=== PATIENT | female | born 1970 | race Caucasian/White ===

== ENCOUNTER 2017-02-12 10:16 | Emergency (ER) | payer MEDICARE, OTHER ==
[2017-02-12 10:24] VITALS: RESP 18
[2017-02-12] MEDS ORDERED: IBUPROFEN 600 MG STARTER PACK 4 TAB BTL PO STA (10:59)
--- NOTE | 2017-02-12 11:03 | ED ---
General Adult HPI - General Chief complaint: Dental/Oral Stated complaint: JAW PAIN Time Seen by Provider: 02/12/17 10:36 Source: patient, family, RN notes reviewed, old records reviewed Mode of arrival: wheelchair Limitations: no limitations - History of Present Illness Initial comments: Chief complaint history of present illness a 47-year-old female here with family. The patient reports one month ago while yawning she felt pain to her right TMJ. 4 days ago she was at [facility] diagnosed with discomfort in that same area but on a muscle relaxant. Patient reports she still has discomfort. Yawning opening her mouth wide causes discomfort to the right TMJ. Mild pressure over that while yawning or opening her mouth can decrease the discomfort. Denies any toothache denies fever. - Related Data Previous Rx's Medication Instructions Recorded Hydrocodone/Acetaminophen [[place] 1 each PO Q8H PRN #10 tab 02/12/17 5-325] Ibuprofen [Motrin] 600 mg PO Q6HR PRN #20 tab 02/12/17 Allergies Allergy/AdvReac Type Severity Reaction Status Date / Time Penicillins Allergy Itching Verified 02/12/17 10:24 Review of Systems ROS Statement: Those systems with pertinent positive or pertinent negative responses have been documented in the HPI. Review of systems no headache no visual acuity changes denies any tooth area pain. Discomfort located on the right parotid area specifically toward the right TMJ. No bruising no significant swelling. Palpation of the area causes discomfort. Opening and closing her mouth increases pain as well. No complaint of chest pain shortness breath GI/ problems. All systems are reviewed. Past medical problems significant for angina, insulin-dependent diabetes mellitus, hypertension, patient is on renal dialysis, also thyroid disorder seizure disorder and bipolar disorder. The patient's surgeries include , tonsils and a fistula for dialysis on her left bicep area. Family history mother at unknown type right of cancer. The patient quit smoking 10 years ago rarely drinks alcohol. ROS Other: All systems not noted in ROS Statement are negative. Past Medical History Past Medical History: Chest Pain / Angina, Diabetes Mellitus, Hypertension, Renal Disease, Seizure Disorder, Thyroid Disorder Additional Past Medical History / Comment(s): dialysis bipolar History of Any Multi-Drug Resistant Organisms: None Reported Past Surgical History: Section, Tonsillectomy Additional Past Surgical History / Comment(s): fistula Past Psychological History: Bipolar Smoking Status: Former smoker Past Alcohol Use History: Occasional Past Drug Use History: None Reported General Exam - General Exam Comments Initial Comments: General: The patient is awake and alert, complains of pain to the right TMJ area vital signs temp 97.8 pulse 82 respiratory rate 18 pulse ox 90% room air blood pressure 131/77. Eye: Pupils are equal, round and reactive to light, extra-ocular movements are intact ; there is normal conjunctiva bilaterally. No signs of icterus. Ears, nose, mouth and throat: There are moist mucous membranes and no oral lesions. Tenderness to right TMJ with opening and closing her mouth and palpation over the area. Parotid not enlarged as compared to the left side. Tenderness in that general area though when palpated. No bruising noted. No anterior cervical lymphadenopathy. Teeth appear to be intact without evidence of any dental caries or she has had a lot of dental work done. Neck: The neck is supple, there is no tenderness , no carotid bruit. Cardiovascular: There is a regular rate and rhythm. No murmur, rub or gallop is appreciated. Respiratory: Lungs are clear to auscultation, respirations are non-labored, breath sounds are equal. No wheezes, stridor, rales, or rhonchi. Gastrointestinal: Abdomen benign no nausea no vomiting no masses. Skin: Skin is warm and dry and no rashes or lesions are noted. Psychiatric: History of bipolar disorder. No complaints of depression or suicidal thoughts. Limitations: no limitations Course Vital Signs 02/12/17 10:19 Temperature 97.8 F Pulse Rate 82 Respiratory 18 Rate Blood Pressure 131/77 O2 Sat by Pulse 98 Oximetry Medical Decision Making - Medical Decision Making Medical decision making; patient's amylase 62 lipase 273. History examination suggests right TMJ discomfort. The patient will be placed on some pain pills and advised to follow-up with her family physician. - Lab Data Lab Results 02/12/17 Range/Units 11:18 Amylase 62 (30-110) U/L Lipase 273 (23-300) U/L Disposition Clinical Impression: Sprain of right temporomandibular joint Disposition: HOME SELF-CARE Condition: Fair Instructions: Temporomandibular Disorder (ED), Arthralgia (ED) Additional Instructions: Eat easily chewed food. Use pain medication as directed. Also follow-up with family physician. Prescriptions: Hydrocodone/Acetaminophen [[place] 5-325] 1 each PO Q8H PRN #10 tab PRN Reason: Pain Ibuprofen [Motrin] 600 mg PO Q6HR PRN #20 tab PRN Reason: Pain Referrals: Geoffrey Somers MD [Primary Care Provider] - 1-2 days Time of Disposition: 12:02
[2017-02-12 11:40] LABS: Amylase 62 U/L (30-110)
[2017-02-12 12:12] VITALS: BP 152/73; PULSE 60; TEMP 98.3
== END 2017-02-12 12:12 | disposition home or self-care (01) ==
LOC: EC 10:16
DX: S03.41XA Sprain of jaw, right side, initial encounter (principal); Z87.891 Personal history of nicotine dependence; Z88.0 Allergy status to penicillin; X58.XXXA Exposure to other specified factors, initial encounter
CPT/HCPCS: 36415; 82150; 83690; 99284

== ENCOUNTER 2017-08-14 18:20 | Inpatient (IN) | payer MEDICARE, OTHER ==
--- NOTE | 2017-08-14 21:30 | ED ---
Seizure HPI - General Chief Complaint: Seizure Stated Complaint: Riley Consult Time Seen by Provider: 08/14/17 18:20 Source: patient, RN/MD, EMS, RN notes reviewed, old records reviewed Mode of arrival: EMS Limitations: no limitations - History of Present Illness Initial Comments: This is a 47-year-old female with a history of seizures who was sent here from [facility] for evaluation by neurology for recurrent seizures. Patient probably did have recurrent seizures today was seen in their emergency department they have no neurologist on staff patient was transferred here for further evaluation. Patient was transported by EMS was apparently awake but nonverbal she was demonstrating evidence of a postictal state. No trauma was reported. I did review the charting separately other hospital. MD Complaint: seizure - Related Data Home Medications Medication Instructions Recorded Confirmed Citalopram Hydrobromide [CeleXA] 10 mg PO DAILY 02/12/17 08/14/17 Clopidogrel [Plavix] 75 mg PO DAILY 02/12/17 08/14/17 Ergocalciferol (Vitamin D2) 50,000 unit PO Q7D 02/12/17 08/14/17 [Vitamin D2] Metoprolol Tartrate 25 mg PO BID 02/12/17 08/14/17 Omeprazole 20 mg PO BID 02/12/17 08/14/17 amLODIPine [Norvasc] 10 mg PO DAILY 02/12/17 08/14/17 levETIRAcetam [Keppra] 1,000 mg PO BID 02/12/17 08/14/17 Atorvastatin [Lipitor] 40 mg PO HS 08/14/17 08/14/17 Hydrocodone/Acetaminophen [[place] 1 tab PO Q4H PRN 08/14/17 08/14/17 5-325] INSULIN LISPRO (humaLOG) [humaLOG] See Protocol SQ ACHS 08/14/17 08/14/17 Insulin Glargine [Lantus] 15 unit SQ DAILY 08/14/17 08/14/17 Ranitidine HCl 150 mg PO BID 08/14/17 08/14/17 Sevelamer [Renvela] 1 dose PO DIRECTED 08/14/17 08/14/17 Allergies Allergy/AdvReac Type Severity Reaction Status Date / Time Penicillins Allergy Itching Verified 08/14/17 20:10 Review of Systems ROS Statement: Those systems with pertinent positive or pertinent negative responses have been documented in the HPI. Limitations: ROS unobtainable due to patients medical condition Past Medical History Past Medical History: Chest Pain / Angina, Diabetes Mellitus, Hypertension, Renal Disease, Seizure Disorder, Thyroid Disorder Additional Past Medical History / Comment(s): dialysis bipolar History of Any Multi-Drug Resistant Organisms: None Reported Past Surgical History: Section, Tonsillectomy Additional Past Surgical History / Comment(s): fistula Past Psychological History: Bipolar Smoking Status: Former smoker Past Alcohol Use History: Occasional Past Drug Use History: None Reported General Exam - General Exam Comments Initial Comments: This a well-developed well-nourished awake alert but lethargic female Limitations: no limitations General appearance: lethargic Head exam: Present: atraumatic, normocephalic, normal inspection Eye exam: Present: normal appearance, PERRL, EOMI. Absent: scleral icterus, conjunctival injection, periorbital swelling ENT exam: Present: normal exam, mucous membranes moist Neck exam: Present: normal inspection. Absent: tenderness, meningismus, lymphadenopathy Respiratory exam: Present: normal lung sounds bilaterally. Absent: respiratory distress, wheezes, rales, rhonchi, stridor Cardiovascular Exam: Present: regular rate, normal rhythm, normal heart sounds. Absent: systolic murmur, diastolic murmur, rubs, gallop, clicks GI/Abdominal exam: Present: soft, normal bowel sounds. Absent: distended, tenderness, guarding, rebound, rigid Extremities exam: Present: normal inspection, full ROM, normal capillary refill. Absent: tenderness, pedal edema, joint swelling, calf tenderness Back exam: Present: normal inspection Neurological exam: Present: alert, altered, CN II-XII intact Psychiatric exam: Present: flat affect Skin exam: Present: warm, dry, intact, normal color. Absent: rash Course Vital Signs 08/14/17 08/14/17 08/14/17 18:29 19:34 20:00 Temperature 98.5 F Pulse Rate 91 87 87 Respiratory 18 18 20 Rate Blood Pressure 128/67 117/69 129/74 O2 Sat by Pulse 98 97 97 Oximetry 08/14/17 21:00 Temperature Pulse Rate 97 Respiratory 20 Rate Blood Pressure 133/76 O2 Sat by Pulse 97 Oximetry Medical Decision Making - Medical Decision Making I did discuss findings with the covering service for Dr. Somers patient will be admitted with neurology consultation. Patient is more responsive and initial arrival. Disposition Clinical Impression: Generalized seizure, Postictal state Disposition: ADMITTED IP TO THIS HOSP Condition: Stable Referrals: Geoffrey Somers MD [Primary Care Provider] - 1-2 days
[2017-08-14] MEDS ORDERED: NALOXONE 0.4 MG/ML 1 ML VIAL IV PRN (21:31)
[2017-08-14] MEDS ORDERED: SEVELAMER 800 MG TAB PO SCH (21:45)
[2017-08-14] MEDS ORDERED: METOPROLOL TARTRATE 25 MG TAB PO STA (23:51)
[2017-08-15 01:47] LABS: Glucose,Whole Blood 129 mg/dL (75-99)
[2017-08-15 07:58] LABS: Glucose,Whole Blood 152 mg/dL (75-99)
[2017-08-15] MEDS: INSULIN ASPART 100 UNIT/ML 1 ML 10 ML VIAL SQ SCH ×4 (08:21→21:12)
[2017-08-15] MEDS: HYDROcodone/APAP 5-325MG 1 EACH TAB PO PRN ×3 (08:22→17:13)
[2017-08-15] MEDS: CLOPIDOGREL 75 MG TAB PO SCH (08:22)
[2017-08-15] MEDS: METOPROLOL TARTRATE 25 MG TAB PO SCH ×2 (08:23→21:11)
[2017-08-15] MEDS: PANTOPRAZOLE 40 MG TABLET PO SCH ×2 (08:23→17:14)
[2017-08-15] MEDS: amLODIPine 10 MG TAB PO SCH (08:24)
[2017-08-15] MEDS: CITALOPRAM HYDROBROMIDE 10 MG TAB PO SCH (08:24)
[2017-08-15] MEDS: levETIRAcetam 500 MG TAB PO SCH ×2 (08:24→21:09)
[2017-08-15] MEDS: INSULIN DETEMIR 100 UNIT/ML 10 ML VIAL SQ SCH (08:25)
[2017-08-15] MEDS ORDERED: FAMOTIDINE 20 MG TAB PO SCH (09:00)
--- NOTE | 2017-08-15 11:24 | P.NPCON ---
History of Present Illness - Reason for Consult end stage renal disease - History of Present Illness Reason for consultation: End-stage renal disease History of present illness: Patient is a 47-year-old female seen in consultation for end-stage renal disease. She is maintained on hemodialysis on a Monday schedule. Patient has history of seizures for which she has required multiple hospitalizations. Patient states she sustained a fall and was noted to have a left wrist fracture for which she went to [facility]. She was subsequently discharged and then had a seizure while at home. She returned back to [facility] and was subsequently transferred to [facility] to be seen by a neurologist. She is currently resting in bed. Patient states she has been compliant with her medications. She did receive hemodialysis yesterday. No further seizures. Currently resting in bed. Patient does have dementia and is not a very reliable historian. No vomiting or diarrhea. No fever or chills. Denies cough. No edema. Hemodynamically stable. Vital signs are stable. General: The patient appeared well nourished and normally developed. HEENT: Head exam is unremarkable. Neck is without jugular venous distension. LUNGS: Lungs are clear to auscultation and percussion. Breath sounds decreased. HEART: Rate and Rhythm are regular. First and second heart sounds normal. No murmurs, rubs or gallops. ABDOMEN: Abdominal exam reveals normal bowel sounds. Non-tender and non- distended. No evidence of peritonitis. EXTREMITITES: No clubbing, cyanosis, or edema. Past Medical History Past Medical History: Chest Pain / Angina, Diabetes Mellitus, Hypertension, Renal Disease, Seizure Disorder, Thyroid Disorder Additional Past Medical History / Comment(s): dialysis bipolar History of Any Multi-Drug Resistant Organisms: None Reported Past Surgical History: Section, Tonsillectomy Additional Past Surgical History / Comment(s): fistula Past Psychological History: Bipolar Smoking Status: Former smoker Past Alcohol Use History: Occasional Past Drug Use History: None Reported Medications and Allergies Home Medications Medication Instructions Recorded Confirmed Type Citalopram Hydrobromide [CeleXA] 10 mg PO DAILY 02/12/17 08/14/17 History Clopidogrel [Plavix] 75 mg PO DAILY 02/12/17 08/14/17 History Ergocalciferol (Vitamin D2) 50,000 unit PO Q7D 02/12/17 08/14/17 History [Vitamin D2] Metoprolol Tartrate 25 mg PO BID 02/12/17 08/14/17 History Omeprazole 20 mg PO BID 02/12/17 08/14/17 History amLODIPine [Norvasc] 10 mg PO DAILY 02/12/17 08/14/17 History levETIRAcetam [Keppra] 1,000 mg PO BID 02/12/17 08/14/17 History Atorvastatin [Lipitor] 40 mg PO HS 08/14/17 08/14/17 History Hydrocodone/Acetaminophen [[place] 1 tab PO Q4H PRN 08/14/17 08/14/17 History 5-325] INSULIN LISPRO (humaLOG) [humaLOG] See Protocol SQ ACHS 08/14/17 08/14/17 History Insulin Glargine [Lantus] 15 unit SQ DAILY 08/14/17 08/14/17 History Ranitidine HCl 150 mg PO BID 08/14/17 08/14/17 History Allergies Allergy/AdvReac Type Severity Reaction Status Date / Time Penicillins Allergy Itching Verified 08/14/17 20:10 Physical Exam Vitals: Vital Signs Temp Pulse Pulse Resp BP BP Pulse Ox 08/15/17 07:00 97.8 F 67 18 114/64 95 08/15/17 00:00 79 14 08/14/17 22:00 98.2 F 89 79 14 139/79 130/72 95 08/14/17 21:00 97 20 133/76 97 08/14/17 20:00 87 20 129/74 97 08/14/17 19:34 87 18 117/69 97 08/14/17 18:29 98.5 F 91 18 128/67 98 Intake and Output 08/14/17 08/15/17 08/15/17 22:59 06:59 14:59 Other: # Voids 0 Weight 68.039 kg 68.039 kg Assessment and Plan Plan: Assessment: #1. End-stage renal disease maintained on hemodialysis on a Monday schedule. #2. Seizures requiring multiple hospitalizations. Patient states she's been compliant with her medications. #3. Status post fall with left wrist fracture. Currently in a cast. #4. Chronic kidney disease mineral bone disease maintained on Renvela. #5. Insulin-dependent diabetes mellitus. Plan: Hemodialysis tomorrow with goal 2 liters ultrafiltration. Check phosphorus level. Await neurology recommendations. Thank you for the consultation. I will continue to follow the patient with you during her hospital stay.
[2017-08-15 12:13] LABS: Glucose,Whole Blood 415 mg/dL (75-99)
--- NOTE | 2017-08-15 12:19 | P.HPIM ---
History of Present Illness Patient presented to [place] [id number] first seizure disorder. Was transferred to [facility] emergency room for neurological evaluation.. Patient resting in bed at this time awaiting consultation. Has seen Dr. Mcgovern we'll continue with scheduled dialysis Review of Systems Constitutional: Reports fatigue, Reports weakness Musculoskeletal: left: hand pain Neurological: Reports seizures, Reports weakness Past Medical History Past Medical History: Chest Pain / Angina, Diabetes Mellitus, Hypertension, Renal Disease, Seizure Disorder, Thyroid Disorder Additional Past Medical History / Comment(s): dialysis bipolar History of Any Multi-Drug Resistant Organisms: None Reported Past Surgical History: Section, Tonsillectomy Additional Past Surgical History / Comment(s): fistula Past Psychological History: Bipolar Smoking Status: Former smoker Past Alcohol Use History: Occasional Past Drug Use History: None Reported Medications and Allergies Home Medications Medication Instructions Recorded Confirmed Type Citalopram Hydrobromide [CeleXA] 10 mg PO DAILY 02/12/17 08/14/17 History Clopidogrel [Plavix] 75 mg PO DAILY 02/12/17 08/14/17 History Ergocalciferol (Vitamin D2) 50,000 unit PO Q7D 02/12/17 08/14/17 History [Vitamin D2] Metoprolol Tartrate 25 mg PO BID 02/12/17 08/14/17 History Omeprazole 20 mg PO BID 02/12/17 08/14/17 History amLODIPine [Norvasc] 10 mg PO DAILY 02/12/17 08/14/17 History levETIRAcetam [Keppra] 1,000 mg PO BID 02/12/17 08/14/17 History Atorvastatin [Lipitor] 40 mg PO HS 08/14/17 08/14/17 History Hydrocodone/Acetaminophen [[place] 1 tab PO Q4H PRN 08/14/17 08/14/17 History 5-325] INSULIN LISPRO (humaLOG) [humaLOG] See Protocol SQ ACHS 08/14/17 08/14/17 History Insulin Glargine [Lantus] 15 unit SQ DAILY 08/14/17 08/14/17 History Ranitidine HCl 150 mg PO BID 08/14/17 08/14/17 History Allergies Allergy/AdvReac Type Severity Reaction Status Date / Time Penicillins Allergy Itching Verified 08/14/17 20:10 Physical Exam Vitals: Vital Signs Temp Pulse Pulse Resp BP BP Pulse Ox 08/15/17 07:00 97.8 F 67 18 114/64 95 08/15/17 00:00 79 14 08/14/17 22:00 98.2 F 89 79 14 139/79 130/72 95 08/14/17 21:00 97 20 133/76 97 08/14/17 20:00 87 20 129/74 97 08/14/17 19:34 87 18 117/69 97 08/14/17 18:29 98.5 F 91 18 128/67 98 Intake and Output 08/14/17 08/15/17 08/15/17 22:59 06:59 14:59 Other: # Voids 0 Weight 68.039 kg 68.039 kg - Constitutional General appearance: obese - EENT Eyes: PERRLA Ears: bilateral: normal - Neck Neck: normal ROM - Respiratory Respiratory: bilateral: CTA - Cardiovascular Rhythm: regular - Gastrointestinal General gastrointestinal: soft - Integumentary Excessive facial hair Integumentary: normal - Neurologic Neurologic: CNII-XII intact - Musculoskeletal Musculoskeletal: generalized weakness - Psychiatric Patient has flat affect and short-term memory problems Psychiatric: A&O x's 3 Results Labs: Abnormal Lab Results - Last 24 Hours (Table) 08/15/17 08/15/17 08/15/17 Range/Units 01:44 07:37 12:03 POC Glucose (mg/dL) 129 H 152 H 415 H (75-99) mg/dL Thrombosis Risk Factor Assmnt - Choose All That Apply Any of the Below Risk Factors Present?: Yes Each Factor Represents 1 point: Age 41-60 years, Obesity (BMI >25) Thrombosis Risk Factor Assessment Total Risk Factor Score: 2 Thrombosis Risk Factor Assessment Level: Low Risk Assessment and Plan Plan: Assessment Seizure disorder post ictal state Bipolar Diabetes type 2 End-stage renal failure with dialysis Monday Hypertension Hypothyroidism Left hand fracture Plan Consultation with Dr. Mcgovern Consultation with [facility] for hand fracture Neurology consultation for seizure disorder
[2017-08-15] MEDS ORDERED: INSULIN ASPART 100 UNIT/ML 1 ML 10 ML VIAL SQ ONE (12:20)
[2017-08-15 13:17] LABS: Basophils # (A) 0.1 k/uL (0-0.2); Basophils % (A) 1 %; Eosinophils # (A) 0.1 k/uL (0-0.7); Eosinophils % (A) 1 %; HCT 32.2 % (34.0-46.0); HGB 11.1 gm/dL (11.4-16.0); Lymphocytes # (A) 2.9 k/uL (1.0-4.8); Lymphocytes % (A) 34 %; MCH 30.1 pg (25.0-35.0); MCHC 34.5 g/dL (31.0-37.0); MCV 87.4 fL (80.0-100.0); Mean Platelet Volume 8.4; Monocytes # (A) 0.5 k/uL (0-1.0); Monocytes % (A) 6 %; Neutrophils # (A) 4.9 k/uL (1.3-7.7); Neutrophils % (A) 57 %; Platelet Count 238 k/uL (150-450); RBC 3.69 m/uL (3.80-5.40); RDW 12.7 % (11.5-15.5); WBC 8.6 k/uL (3.8-10.6)
[2017-08-15 17:27] LABS: Glucose,Whole Blood 91 mg/dL (75-99)
[2017-08-15 17:27] LABS: Glucose,Whole Blood 59 mg/dL (75-99)
[2017-08-15 20:48] LABS: Glucose,Whole Blood 138 mg/dL (75-99)
[2017-08-15] MEDS: ATORVASTATIN 40 MG TAB PO SCH (21:11)
[2017-08-15] MEDS: FAMOTIDINE 20 MG TAB PO SCH (21:12)
[2017-08-15] MEDS: LACOSAMIDE 50 MG TABLET PO SCH (21:55)
[2017-08-16 03:43] LABS: Glucose,Whole Blood 135 mg/dL (75-99)
[2017-08-16] MEDS: HYDROcodone/APAP 5-325MG 1 EACH TAB PO PRN ×2 (05:27→20:33)
--- NOTE | 2017-08-16 06:17 | CONS ---
CONSULTATION DATE OF CONSULTATION: 08/15/2017. CHIEF COMPLAINT: Seizures. HISTORY OF PRESENT ILLNESS: Mrs. Duke is a 47-year-old female, who is being evaluated by the neurology service per the request of Dr. Geoffrey Somers for uncontrolled seizures. The patient has history of seizure disorder and is on Keppra 1000 mg b.i.d. at home. She has been having frequent breakthrough seizures described as generalized tonic colonic seizures over the past week. She denies missing any doses. She was initially taken to [facility] Emergency Room but then transferred to [facility] for neurological evaluation. According to the chart, a CT scan of the brain was done at [facility], which showed no acute intracranial abnormalities. Her comprehensive metabolic profile at that institution showed mild hyponatremia at 134, hyperglycemia at 255, and elevated BUN and creatinine at 66 and 10.1, respectively. The patient does have history of end-stage renal disease and is on dialysis. Nephrology has been consulted. At the time of my evaluation, the patient is lying in her bed and appears to be in no acute distress. She has not had any further seizures since her admission. She is on seizure precautions. Her CBC here showed anemia with a hemoglobin of 11.1 and hematocrit of 32%. PAST MEDICAL HISTORY: Seizure disorder, diabetes, hypertension, end-stage renal disease, hypothyroidism, history of , tonsillectomy, history of bipolar disorder. SOCIAL HISTORY: The patient is a former smoker. She rarely drinks alcohol. She denies any drug use. FAMILY HISTORY: Noncontributory. HOME MEDICATIONS: Reviewed in the chart. ALLERGIES: PENICILLIN. REVIEW OF SYSTEM: CONSTITUTIONAL: Positive for fatigue. EYES: Negative. ENT: Negative. CARDIOVASCULAR: Negative. RESPIRATORY: Negative. NEUROLOGICAL: As mentioned above. GASTROINTESTINAL: Positive for occasional heartburn. GENITOURINARY: As mentioned above. PSYCHIATRIC: Positive for history of bipolar disorder. ENDOCRINE: Positive for diabetes. Also positive for hypothyroidism. DERMATOLOGICAL: Negative. MUSCULOSKELETAL: Positive for occasional joint pain. PHYSICAL EXAM: Vital signs show a temperature of 98.2, pulse 73, respiration 16, blood pressure 113/69. GENERAL APPEARANCE: The patient is a well-developed female, who appears to be in no acute distress. HEENT: Normocephalic, atraumatic, no facial asymmetry is seen. Facial hair is present. NECK: Supple with no masses felt. CARDIOVASCULAR: Regular rate and rhythm. ABDOMEN: Nontender nondistended. Extremities showed no edema or clubbing. NEUROLOGICAL EXAM: The patient is awake and oriented to person and place. She answered 2001 for the year. No facial asymmetry is seen on cranial nerve testing. No lateralizing weakness is noticed. No tremors or seizure-like activity is seen. Sensory exam showed diminished light touch sensation in bilateral distal lower extremities. IMPRESSION: 1. Uncontrolled seizures, generalized tonic-clonic type. 2. End-stage renal disease, on hemodialysis. 3. Anemia. 4. Diabetes. RECOMMENDATION: The patient has been having frequent breakthrough seizures as mentioned above. She denies missing any doses of Keppra. I had a lengthy discussion with her regarding her antiepileptic medication regimen. Given her end-stage renal disease, she is already on a high dose of Keppra, although there is no concern for toxicity. The patient will need to be placed on a second antiepileptic medication. I will start her on Vimpat 50 mg b.i.d. This is usually a starting dose, but given her end-stage renal disease, this will be her maintenance dose as well. No further adjustment of this medication will be needed. An EEG has been ordered. Continue seizure precautions and neuro checks. Nephrology has been consulted for her hemodialysis. I will continue to follow with you. Further recommendations to follow. Thank you, Dr. Somers for allowing me to participate in the care of your patient. If you have any questions, please feel free to contact me. JOYCE / DAYNA: [id number] /
[2017-08-16 07:13] LABS: Glucose,Whole Blood 129 mg/dL (75-99)
[2017-08-16] MEDS: INSULIN ASPART 100 UNIT/ML 1 ML 10 ML VIAL SQ SCH ×4 (08:33→20:34)
[2017-08-16] MEDS: CLOPIDOGREL 75 MG TAB PO SCH (08:36)
[2017-08-16] MEDS: amLODIPine 10 MG TAB PO SCH (08:36)
[2017-08-16] MEDS: INSULIN DETEMIR 100 UNIT/ML 10 ML VIAL SQ SCH (08:36)
[2017-08-16] MEDS: PANTOPRAZOLE 40 MG TABLET PO SCH ×2 (08:36→18:14)
[2017-08-16] MEDS: levETIRAcetam 500 MG TAB PO SCH ×2 (08:36→20:33)
[2017-08-16] MEDS: CITALOPRAM HYDROBROMIDE 10 MG TAB PO SCH (08:36)
[2017-08-16] MEDS: METOPROLOL TARTRATE 25 MG TAB PO SCH ×2 (08:37→20:34)
[2017-08-16] MEDS: LACOSAMIDE 50 MG TABLET PO SCH ×2 (08:38→20:36)
--- NOTE | 2017-08-16 09:22 | P.CNOR ---
History of Present Illness - HPI Consult date: 08/16/17 History of present illness: this is a 47-year-old female admitted for seizures. Orthopedics is consulted due to left hand injury. Patient states that 2 days ago she fell and injured the left hand. Patient states she was seen at [facility] for this injury and x-rays were done. Patient states she was treated with a splint. Patient states that her pain is well controlled and she is tolerating the splint. Patient denies any numbness, weakness, or tingling. Review of Systems See HPI. Past Medical History Past Medical History: Chest Pain / Angina, Diabetes Mellitus, Hypertension, Renal Disease, Seizure Disorder, Thyroid Disorder Additional Past Medical History / Comment(s): dialysis bipolar History of Any Multi-Drug Resistant Organisms: None Reported Past Surgical History: Section, Tonsillectomy Additional Past Surgical History / Comment(s): fistula Past Psychological History: Bipolar Smoking Status: Former smoker Past Alcohol Use History: Occasional Past Drug Use History: None Reported Medications and Allergies Home Medications Medication Instructions Recorded Confirmed Type Citalopram Hydrobromide [CeleXA] 10 mg PO DAILY 02/12/17 08/14/17 History Clopidogrel [Plavix] 75 mg PO DAILY 02/12/17 08/14/17 History Ergocalciferol (Vitamin D2) 50,000 unit PO Q7D 02/12/17 08/14/17 History [Vitamin D2] Metoprolol Tartrate 25 mg PO BID 02/12/17 08/14/17 History Omeprazole 20 mg PO BID 02/12/17 08/14/17 History amLODIPine [Norvasc] 10 mg PO DAILY 02/12/17 08/14/17 History levETIRAcetam [Keppra] 1,000 mg PO BID 02/12/17 08/14/17 History Atorvastatin [Lipitor] 40 mg PO HS 08/14/17 08/14/17 History Hydrocodone/Acetaminophen [Sycamore 1 tab PO Q4H PRN 08/14/17 08/14/17 History 5-325] INSULIN LISPRO (humaLOG) [humaLOG] See Protocol SQ ACHS 08/14/17 08/14/17 History Insulin Glargine [Lantus] 15 unit SQ DAILY 08/14/17 08/14/17 History Ranitidine HCl 150 mg PO BID 08/14/17 08/14/17 History Allergies Allergy/AdvReac Type Severity Reaction Status Date / Time Penicillins Allergy Itching Verified 08/14/17 20:10 Physical Examination On exam patient is alert and oriented 3 and in no acute distress. Left upper extremity with mild swelling and ecchymosis over the lateral aspect of the left hand. There is tenderness over the base of the fifth metacarpal. Patient has limited range of motion of the left wrist due to pain. Patient is unable to make a fist due to pain and swelling in left hand. Capillary refill is normal at less than 2 seconds. Sensation intact. Neurovascular status and circulatory status are intact. Results X-rays of the left wrist and left hand are pending. - Labs Labs: Abnormal Lab Results - Last 24 Hours (Table) 08/15/17 08/15/17 08/15/17 Range/Units 12:03 12:38 17:08 RBC 3.69 L (3.80-5.40) m/uL Hgb 11.1 L (11.4-16.0) gm/dL Hct 32.2 L (34.0-46.0) % POC Glucose (mg/dL) 415 H 59 L (75-99) mg/dL 08/15/17 08/16/17 08/16/17 Range/Units 20:45 02:44 06:53 RBC (3.80-5.40) m/uL Hgb (11.4-16.0) gm/dL Hct (34.0-46.0) % POC Glucose (mg/dL) 138 H 135 H 129 H (75-99) mg/dL H & H 08/15/17 Range/Units 12:38 Hgb 11.1 L (11.4-16.0) gm/dL Hct 32.2 L (34.0-46.0) % Result Diagrams: 08/15/17 12:38 Assessment and Plan (1) Left hand pain Current Visit: Yes Status: Acute Code(s): M79.642 - PAIN IN LEFT HAND SNOMED Code(s): 66334301 Plan: #1. Continue splint, rest, ice and elevation of the left upper extremity. #2. X-rays of the left hand and wrist are pending. Further recommendations to follow. #3. Will continue to follow the patient closely.
--- NOTE | 2017-08-16 09:56 | XR ---
Left hand and left wrist HISTORY: Pain, wrist fracture 3 views of the left and correlated to 4 views of the left wrist same date There is an overlying splint present. Bone mineralization is mildly reduced. There is negative ulnar variance present. Alignment is maintained. Oblique fracture through the fourth metacarpal with minima l displacement is noted. IMPRESSION: Fracture in splint
--- NOTE | 2017-08-16 10:27 | P.PN ---
Subjective Patient is seen in follow-up for end-stage renal disease. She is maintained on hemodialysis on a Monday schedule. He fistula. Patient presented to the hospital after sustaining a fall and is noted to have a fracture of the left metacarpal. She has a splint in place. Patient also had a seizure prior to admission and is being followed by neurology. No further seizure activity while in the hospital. She was maintained on Keppra and Vimpat was added this admission. Denies chest pain or shortness of breath. Oral intake is good. No active complaints at this time. Vital signs are stable. General: The patient appeared well nourished and normally developed. HEENT: Head exam is unremarkable. Neck is without jugular venous distension. LUNGS: Lungs are clear to auscultation and percussion. Breath sounds decreased. HEART: Rate and Rhythm are regular. First and second heart sounds normal. No murmurs, rubs or gallops. ABDOMEN: Abdominal exam reveals normal bowel sounds. Non-tender and non- distended. No evidence of peritonitis. EXTREMITITES: No clubbing, cyanosis, or edema. Objective - Vital Signs Vital signs: Vital Signs Temp 97.7 F 08/16/17 07:00 Pulse 72 08/16/17 07:00 Resp 18 08/16/17 07:00 BP 120/68 08/16/17 07:00 Pulse Ox 97 08/16/17 07:00 Intake & Output 08/15/17 08/16/17 08/16/17 18:59 06:59 18:59 Intake Total 500 Balance 500 Intake: Oral 500 Other: Voiding Method Incontinent Incontinent # Voids 0 2 # Bowel Movements 0 0 - Labs CBC & Chem 7: 08/15/17 12:38 Labs: Abnormal Lab Results - Last 24 Hours (Table) 08/15/17 08/15/17 08/15/17 Range/Units 12:03 12:38 17:08 RBC 3.69 L (3.80-5.40) m/uL Hgb 11.1 L (11.4-16.0) gm/dL Hct 32.2 L (34.0-46.0) % POC Glucose (mg/dL) 415 H 59 L (75-99) mg/dL 01/23/18 01/24/18 01/24/18 Range/Units 20:45 02:44 06:53 RBC (3.80-5.40) m/uL Hgb (11.4-16.0) gm/dL Hct (34.0-46.0) % POC Glucose (mg/dL) 138 H 135 H 129 H (75-99) mg/dL Assessment and Plan Plan: Assessment: #1. End-stage renal disease maintained on hemodialysis on a Monday schedule. #2. Seizures requiring multiple hospitalizations. Patient states she's been compliant with her medications. Neurology following. Maintained on Keppra and Vimpat added this admission. #3. Status post fall with left wrist fracture. Currently in a splint. Noted to have left fourth metacarpal fracture. #4. Chronic kidney disease mineral bone disease maintained on Renvela. #5. Insulin-dependent diabetes mellitus. Plan: Hemodialysis today with goal 2 liters ultrafiltration. Follow-up phosphorus level.
[2017-08-16 10:41] LABS: Calcium 9.5 mg/dL (8.4-10.2); Phosphorus 6.4 mg/dL (2.5-4.5); Potassium 4.4 mmol/L (3.5-5.1)
--- NOTE | 2017-08-16 11:46 | P.PN ---
Subjective Patient resting in bed no complaints at this time. The patient more alert and responsive than yesterday. Patient has had consultation with neurology regarding seizures medication will be adjusted. Patient had dialysis on this morning. Patient being consult and with the orthopedics regarding left hand fractured to metacarpal Objective - Vital Signs Vital signs: Vital Signs Temp 97.7 F 08/16/17 07:00 Pulse 72 08/16/17 07:00 Resp 18 08/16/17 07:00 BP 120/68 08/16/17 07:00 Pulse Ox 97 08/16/17 07:00 Intake & Output 08/15/17 08/16/17 08/16/17 18:59 06:59 18:59 Intake Total 500 Balance 500 Intake: Oral 500 Other: Voiding Method Incontinent Incontinent # Voids 0 2 # Bowel Movements 0 0 - Constitutional General appearance: Present: obese - EENT Eyes: Present: PERRLA Ears: bilateral: normal - Neck Neck: Present: normal ROM - Respiratory Respiratory: bilateral: CTA - Cardiovascular Rhythm: regular - Gastrointestinal General gastrointestinal: Present: soft - Integumentary Integumentary: Present: normal - Neurologic Neurologic: Present: CNII-XII intact - Musculoskeletal Musculoskeletal: Present: generalized weakness - Psychiatric Psychiatric: Present: A&O x's 3, appropriate affect, intact judgment & insight - Labs CBC & Chem 7: 08/15/17 12:38 08/16/17 09:37 Labs: Abnormal Lab Results - Last 24 Hours (Table) 08/15/17 08/15/17 08/15/17 Range/Units 12:03 12:38 17:08 RBC 3.69 L (3.80-5.40) m/uL Hgb 11.1 L (11.4-16.0) gm/dL Hct 32.2 L (34.0-46.0) % Sodium (137-145) mmol/L Chloride (98-107) mmol/L BUN (7-17) mg/dL Creatinine (0.52-1.04) mg/dL Glucose (74-99) mg/dL POC Glucose (mg/dL) 415 H 59 L (75-99) mg/dL Phosphorus (2.5-4.5) mg/dL 08/15/17 08/16/17 08/16/17 Range/Units 20:45 02:44 06:53 RBC (3.80-5.40) m/uL Hgb (11.4-16.0) gm/dL Hct (34.0-46.0) % Sodium (137-145) mmol/L Chloride (98-107) mmol/L BUN (7-17) mg/dL Creatinine (0.52-1.04) mg/dL Glucose (74-99) mg/dL POC Glucose (mg/dL) 138 H 135 H 129 H (75-99) mg/dL Phosphorus (2.5-4.5) mg/dL 08/16/17 Range/Units 09:37 RBC (3.80-5.40) m/uL Hgb (11.4-16.0) gm/dL Hct (34.0-46.0) % Sodium 134 L (137-145) mmol/L Chloride 91 L (98-107) mmol/L BUN 55 H (7-17) mg/dL Creatinine 9.01 H* (0.52-1.04) mg/dL Glucose 232 H (74-99) mg/dL POC Glucose (mg/dL) (75-99) mg/dL Phosphorus 6.4 H (2.5-4.5) mg/dL Assessment and Plan Plan: Assessment Generalized seizure disorder post ictal state Left hand fracture Diabetes type 2 End-stage renal failure on dialysis Monday and Monday Hypertension Bipolar Hypothyroidism Plan Continue consultation with neurology regarding seizures Continue consultation with dialysis Continue consultation with orthopedics regarding left hand fracture
[2017-08-16 12:23] LABS: Glucose,Whole Blood 259 mg/dL (75-99)
--- NOTE | 2017-08-16 15:20 | EEG ---
ELECTROENCEPHALOGRAM REPORT DATE OF SERVICE: 08/16/2017 REASON FOR TESTING: Seizures. CURRENT ANTIEPILEPTIC MEDICATIONS: Keppra and Vimpat. DESCRIPTION OF THE PROCEDURE: This EEG was performed using a 21 channel digital electroencephalograph, following international 10-20 system. DESCRIPTION OF THE RECORDING: From the beginning of the tracing, and with patient's eyes closed, the background rhythm was mostly consisting of 8 Hz alpha frequency in the posterior occipital leads. No obvious asymmetry is seen. Photic stimulation was performed with a minimal driving response seen. No pathological waves were elicited. Occasional dysregulation is seen. Frequent muscle and movement artifacts are noticed. Hyperventilation was not performed. The patient remains awake throughout the tracing. No obvious epileptiform discharges were seen. INTERPRETATION: This awake EEG is abnormal due to presence of dysregulation. This is consistent with a reduced seizure threshold. Clinical correlation is recommended. MMODL / IJN: [id number] /
[2017-08-16 17:16] LABS: Glucose,Whole Blood 129 mg/dL (75-99)
--- NOTE | 2017-08-16 20:13 | P.PN ---
Subjective Progress Note Date: 08/16/17 Principal diagnosis: seizure, generalized tonic Neurology is following a 47-year-old female for uncontrolled seizure. Patient has a history of seizure and is on Keppra 1000 mg, bid daily. Patient originally presented at [facility] [place] [facility] but was transferred to [facility] for neurological care and workup. Patient was placed on a second AED, Vimpat 50 mg, bid. This is going to be her daily dose if tolerated and no adverse effects are reported. Patient's EEG was found to be abnormal with occasional dysregulation, consistent with reduced seizure threshold. Patient and nursing staff report no new seizure activity and the patient is adjusting to the added medication without complication at this time. On contact, the patient was AOx3, resting in bed in no acute distress. Objective - Vital Signs Vital signs: Vital Signs Temp 97.8 F 08/16/17 15:00 Pulse 72 08/16/17 15:00 Resp 18 08/16/17 15:00 BP 131/70 08/16/17 15:00 Pulse Ox 97 08/16/17 15:00 Intake & Output 08/16/17 08/16/17 08/17/17 06:59 18:59 06:59 Intake Total 500 Balance 500 Intake: Oral 500 Other: Voiding Method Incontinent # Voids 2 0 # Bowel Movements 0 0 - Exam Constitutional: AOx3, cooperative HEENT: NC/AT, no facial asymmetry is seen. Throat: Supple, no masses Respiratory: No increased work of breathing Cardiac: Regular rate and Rhythm GI: non tender, non distended Musculoskeletal: Information Security Manager strengths are equal bilaterally 5/5, Lower extremity strengths are equal bilaterally at 5/5. Neurological: CN II-XII in tact, patient was AOx3, speech and language are normal, no unilateralizing weakness, no seizure activity note on physical exam. Sensation was normal. Integementary: no rash, no erythema Psychiatric: mood and affect appropriate - Labs CBC & Chem 7: 08/15/17 12:38 08/16/17 09:37 Labs: Abnormal Lab Results - Last 24 Hours (Table) 08/15/17 08/16/17 08/16/17 Range/Units 20:45 02:44 06:53 Sodium (137-145) mmol/L Chloride (98-107) mmol/L BUN (7-17) mg/dL Creatinine (0.52-1.04) mg/dL Glucose (74-99) mg/dL POC Glucose (mg/dL) 138 H 135 H 129 H (75-99) mg/dL Phosphorus (2.5-4.5) mg/dL 08/16/17 08/16/17 08/16/17 Range/Units 09:37 12:17 17:06 Sodium 134 L (137-145) mmol/L Chloride 91 L (98-107) mmol/L BUN 55 H (7-17) mg/dL Creatinine 9.01 H* (0.52-1.04) mg/dL Glucose 232 H (74-99) mg/dL POC Glucose (mg/dL) 259 H 129 H (75-99) mg/dL Phosphorus 6.4 H (2.5-4.5) mg/dL Assessment and Plan (1) End stage renal disease Current Visit: Yes Status: Acute Code(s): N18.6 - END STAGE RENAL DISEASE SNOMED Code(s): 35357869 (2) Diabetes Current Visit: Yes Status: Acute Code(s): E11.9 - TYPE 2 DIABETES MELLITUS WITHOUT COMPLICATIONS SNOMED Code(s): 04534492 (3) Generalized seizure Current Visit: Yes Status: Acute Code(s): R56.9 - UNSPECIFIED CONVULSIONS SNOMED Code(s): 213421200 Plan: 1. Seizures, generalized tonic clonic 2. Anemia 3. Diabetes Patient appears to be well controlled with the addition of Vimpat. The EEG findings are consistent with reduced seizure threshold which is consistent with new pharmacological regimen and adding the second agent to assist with seizure coverage. Based on the patient's imaging, testing and other pertinent medical information , it does appear that the patient's seizures are now managed with the dose of Keppra and vimpat concurrently used in this patient. Vimpat current dose will be the routine dose for this patient at discharge and for home use. Keppra will also be continued. Status: Neurology will continue to follow until 08/17/17, if the patient remains seizure free and tolerating the medication, the patient will be cleared for discharge from a neurological standpoint. Any questions, contact our office. Toni Sutton, [employer]TR[employer]ER[employer] TECHNICIAN-C Neurology For Dr. Matt Ohara I discussed the patient's pertinent medical information with Dr. Ohara. He agrees with the plan of care as implemented.
[2017-08-16] MEDS: ATORVASTATIN 40 MG TAB PO SCH (20:34)
[2017-08-16 20:47] LABS: Glucose,Whole Blood 268 mg/dL (75-99)
[2017-08-17] MEDS: HYDROcodone/APAP 5-325MG 1 EACH TAB PO PRN (00:14)
[2017-08-17 07:52] LABS: Glucose,Whole Blood 168 mg/dL (75-99)
[2017-08-17] MEDS: INSULIN ASPART 100 UNIT/ML 1 ML 10 ML VIAL SQ SCH ×2 (08:00→13:30)
[2017-08-17] MEDS: INSULIN DETEMIR 100 UNIT/ML 10 ML VIAL SQ SCH (08:00)
[2017-08-17] MEDS: CLOPIDOGREL 75 MG TAB PO SCH (08:00)
[2017-08-17] MEDS: PANTOPRAZOLE 40 MG TABLET PO SCH (08:01)
[2017-08-17] MEDS: FAMOTIDINE 20 MG TAB PO SCH (08:01)
[2017-08-17] MEDS: levETIRAcetam 500 MG TAB PO SCH (08:01)
[2017-08-17] MEDS: amLODIPine 10 MG TAB PO SCH (08:01)
[2017-08-17] MEDS: CITALOPRAM HYDROBROMIDE 10 MG TAB PO SCH (08:01)
[2017-08-17] MEDS: METOPROLOL TARTRATE 25 MG TAB PO SCH (08:01)
[2017-08-17] MEDS: LACOSAMIDE 50 MG TABLET PO SCH (08:03)
--- NOTE | 2017-08-17 08:52 | P.PN ---
Subjective Progress Note Date: 08/17/17 This is a 47-year-old female who was admitted for seizures. Orthopedics is following the patient for fracture of the left hand. Patient states her splint feels comfortable. Patient states her pain has improved since yesterday. Patient denies any new complaints today. Objective - Vital Signs Vital signs: Vital Signs Temp 97.2 F L 08/17/17 07:00 Pulse 76 08/17/17 07:00 Resp 20 08/17/17 07:00 BP 140/72 08/17/17 07:00 Pulse Ox 97 08/17/17 07:00 Intake & Output 08/16/17 08/17/17 08/17/17 18:59 06:59 18:59 Intake Total 500 Balance 500 Intake: Oral 500 Other: Voiding Method Incontinent Bedpan # Voids 0 1 # Bowel Movements 0 - Exam Vital signs are stable. Patient is in no acute distress and is alert and oriented 3. Splint is clean, dry, and intact. Sensation intact. Neurovascular status and circulatory status are intact. - Labs CBC & Chem 7: 08/15/17 12:38 08/16/17 09:37 Labs: Abnormal Lab Results - Last 24 Hours (Table) 08/16/17 08/16/17 08/16/17 Range/Units 09:37 12:17 17:06 Sodium 134 L (137-145) mmol/L Chloride 91 L (98-107) mmol/L BUN 55 H (7-17) mg/dL Creatinine 9.01 H* (0.52-1.04) mg/dL Glucose 232 H (74-99) mg/dL POC Glucose (mg/dL) 259 H 129 H (75-99) mg/dL Phosphorus 6.4 H (2.5-4.5) mg/dL 08/16/17 08/17/17 Range/Units 20:26 07:49 Sodium (137-145) mmol/L Chloride (98-107) mmol/L BUN (7-17) mg/dL Creatinine (0.52-1.04) mg/dL Glucose (74-99) mg/dL POC Glucose (mg/dL) 268 H 168 H (75-99) mg/dL Phosphorus (2.5-4.5) mg/dL Assessment and Plan (1) Left hand pain Current Visit: Yes Status: Acute Code(s): M79.642 - PAIN IN LEFT HAND SNOMED Code(s): 64016976 (2) Fracture of fourth metacarpal bone of left hand Current Visit: Yes Status: Acute Code(s): S62.305A - UNSP FRACTURE OF FOURTH METACARPAL BONE, LEFT HAND, INIT SNOMED Code(s): 288864663 Plan: #1. Continue splint at all times. X-rays of the left hand show nondisplaced fracture of the fourth metacarpal. X-rays of left wrist are negative for any fracture dislocation. #2. Rest, ice and elevate the left upper extremity. #3. Will continue to follow the patient closely. Patient may follow up as an outpatient in 1 week.
--- NOTE | 2017-08-17 10:23 | P.PN ---
Subjective Patient is seen in follow-up for end-stage renal disease. She is maintained on hemodialysis on a Monday schedule via AV fistula. Patient presented to the hospital after sustaining a fall and is noted to have a fracture of the left metacarpal. She has a splint in place. Patient also had a seizure prior to admission and is being followed by neurology. No further seizure activity while in the hospital. She was maintained on Keppra and Vimpat was added this admission. Denies chest pain or shortness of breath. Oral intake is good. No active complaints at this time. Tolerated hemodialysis well yesterday. Vital signs are stable. General: The patient appeared well nourished and normally developed. HEENT: Head exam is unremarkable. Neck is without jugular venous distension. LUNGS: Lungs are clear to auscultation and percussion. Breath sounds decreased. HEART: Rate and Rhythm are regular. First and second heart sounds normal. No murmurs, rubs or gallops. ABDOMEN: Abdominal exam reveals normal bowel sounds. Non-tender and non- distended. No evidence of peritonitis. EXTREMITITES: No clubbing, cyanosis, or edema. Objective - Vital Signs Vital signs: Vital Signs Temp 97.2 F L 08/17/17 07:00 Pulse 76 08/17/17 07:00 Resp 20 08/17/17 07:00 BP 140/72 08/17/17 07:00 Pulse Ox 97 08/17/17 07:00 Intake & Output 08/16/17 08/17/17 08/17/17 18:59 06:59 18:59 Intake Total 500 240 Balance 500 240 Intake: Oral 500 240 Other: Voiding Method Incontinent Bedpan # Voids 0 1 # Bowel Movements 0 - Labs CBC & Chem 7: 08/15/17 12:38 08/16/17 09:37 Labs: Abnormal Lab Results - Last 24 Hours (Table) 08/16/17 08/16/17 08/16/17 Range/Units 09:37 12:17 17:06 Sodium 134 L (137-145) mmol/L Chloride 91 L (98-107) mmol/L BUN 55 H (7-17) mg/dL Creatinine 9.01 H* (0.52-1.04) mg/dL Glucose 232 H (74-99) mg/dL POC Glucose (mg/dL) 259 H 129 H (75-99) mg/dL Phosphorus 6.4 H (2.5-4.5) mg/dL 08/16/17 08/17/17 Range/Units 20:26 07:49 Sodium (137-145) mmol/L Chloride (98-107) mmol/L BUN (7-17) mg/dL Creatinine (0.52-1.04) mg/dL Glucose (74-99) mg/dL POC Glucose (mg/dL) 268 H 168 H (75-99) mg/dL Phosphorus (2.5-4.5) mg/dL Assessment and Plan Plan: Assessment: #1. End-stage renal disease maintained on hemodialysis on a Monday schedule. #2. Seizures requiring multiple hospitalizations. Patient states she's been compliant with her medications. Neurology following. Maintained on Keppra and Vimpat added this admission. #3. Status post fall with left wrist fracture. Currently in a splint. Noted to have left fourth metacarpal fracture. #4. Chronic kidney disease mineral bone disease maintained on Renvela. #5. Insulin-dependent diabetes mellitus. Plan: Hemodialysis tomorrow with goal 2 liters ultrafiltration. Stable for discharge from nephrology standpoint.
[2017-08-17 11:59] LABS: Glucose,Whole Blood 256 mg/dL (75-99)
--- NOTE | 2017-08-17 12:19 | P.PN ---
Subjective Principal diagnosis: Patient resting in bed without complaint patient had consultation with nephrology and neurology no further seizures. Orthopedics plan to cast the left arm for metacarpal fracture Objective - Vital Signs Vital signs: Vital Signs Temp 97.2 F L 08/17/17 07:00 Pulse 76 08/17/17 07:00 Resp 20 08/17/17 07:00 BP 140/72 08/17/17 07:00 Pulse Ox 97 08/17/17 07:00 Intake & Output 08/16/17 08/17/17 08/17/17 18:59 06:59 18:59 Intake Total 500 240 Balance 500 240 Intake: Oral 500 240 Other: Voiding Method Incontinent Bedpan # Voids 0 1 # Bowel Movements 0 - Constitutional General appearance: Present: obese - EENT Eyes: Present: PERRLA Ears: bilateral: normal - Neck Neck: Present: normal ROM - Respiratory Respiratory: bilateral: CTA - Cardiovascular Rhythm: regular - Integumentary Integumentary: Present: normal - Neurologic Neurologic: Present: CNII-XII intact - Musculoskeletal Musculoskeletal: Present: generalized weakness - Psychiatric Psychiatric: Present: A&O x's 3, appropriate affect, intact judgment & insight - Labs CBC & Chem 7: 08/15/17 12:38 08/16/17 09:37 Labs: Abnormal Lab Results - Last 24 Hours (Table) 08/16/17 08/16/17 08/16/17 Range/Units 12:17 17:06 20:26 POC Glucose (mg/dL) 259 H 129 H 268 H (75-99) mg/dL 08/17/17 08/17/17 Range/Units 07:49 11:53 POC Glucose (mg/dL) 168 H 256 H (75-99) mg/dL Assessment and Plan Plan: Assessment generalized seizure postictal state Renal failure end-stage with dialysis Monday Bipolar Diabetes type 2 Hypothyroidism Fracture of left hand Plan We'll follow-up with a nephrology for dialysis We'll follow up with neurology regarding seizures We'll follow-up with orthopedics regarding hand fracture 1 cleared by neurology patient will be discharged home
[2017-08-17] MEDS ORDERED: SEVELAMER 800 MG TAB PO SCH (12:30)
[2017-08-17 15:58] VITALS: BP 119/67; PULSE 77; RESP 16; TEMP 98.3
--- NOTE | 2017-08-17 16:00 | P.DS ---
Providers Date of admission: 08/14/17 21:30 Expected date of discharge: 08/17/17 Attending physician: Geoffrey Somers Consults: 08/14/17 21:32 Consult Physician Routine Consulting Provider: Matt Ohara Consult Reason/Comments: Multiple seizures, postictal state Do you want consulting provider notified?: Yes 08/15/17 12:10 Consult Physician Urgent Consulting Provider: Martínez Mcgovern Consult Reason/Comments: renal failure Do you want consulting provider notified?: Already Contacted 08/15/17 12:14 Consult Physician Urgent Consulting Provider: Mynor Giron Consult Reason/Comments: left hand fx xray at [facility] Do you want consulting provider notified?: Yes Primary care physician: Geoffrey Somers [place] Course: 47-year-old female presented to the emergency room from [facility] for evaluation after recurrent seizures. Patient was evaluated by neurology and started on Vimpat the milligrams b.i.d. patient has stabilized. Patient was evaluated by nephrology and had one course of dialysis Assessment generally seizure postictal state renal failure and stage with dialysis bipolar diabetes type II hypertension hypothyroidism left hand fracture Plan follow up with neurology nephrology and orthopedics and family physician Patient Condition at Discharge: Stable Plan - Discharge Summary New Discharge Prescriptions: New Lacosamide [Vimpat] 50 mg PO BID 30 Days #60 tablet Sevelamer [Renvela] 800 mg PO TID-W/MEALS tab Continue amLODIPine [Norvasc] 10 mg PO DAILY Metoprolol Tartrate 25 mg PO BID Omeprazole 20 mg PO BID Ergocalciferol (Vitamin D2) [Vitamin D2] 50,000 unit PO Q7D Clopidogrel [Plavix] 75 mg PO DAILY Citalopram Hydrobromide [CeleXA] 10 mg PO DAILY levETIRAcetam [Keppra] 1,000 mg PO BID Insulin Glargine [Lantus] 15 unit SQ DAILY INSULIN LISPRO (humaLOG) [humaLOG] See Protocol SQ ACHS Hydrocodone/Acetaminophen [[place] 5-325] 1 tab PO Q4H PRN PRN Reason: Pain Atorvastatin [Lipitor] 40 mg PO HS Discontinued Ranitidine HCl 150 mg PO BID Discharge Medication List Citalopram Hydrobromide [CeleXA] 10 mg PO DAILY 02/12/17 [History] Clopidogrel [Plavix] 75 mg PO DAILY 02/12/17 [History] Ergocalciferol (Vitamin D2) [Vitamin D2] 50,000 unit PO Q7D 02/12/17 [History] Metoprolol Tartrate 25 mg PO BID 02/12/17 [History] Omeprazole 20 mg PO BID 02/12/17 [History] amLODIPine [Norvasc] 10 mg PO DAILY 02/12/17 [History] levETIRAcetam [Keppra] 1,000 mg PO BID 02/12/17 [History] Atorvastatin [Lipitor] 40 mg PO HS 08/14/17 [History] Hydrocodone/Acetaminophen [[place] 5-325] 1 tab PO Q4H PRN 08/14/17 [History] INSULIN LISPRO (humaLOG) [humaLOG] See Protocol SQ ACHS 08/14/17 [History] Insulin Glargine [Lantus] 15 unit SQ DAILY 08/14/17 [History] Lacosamide [Vimpat] 50 mg PO BID 30 Days #60 tablet 08/17/17 [Rx] Sevelamer [Renvela] 800 mg PO TID-W/MEALS tab 08/17/17 [Rx] Follow up Appointment(s)/Referral(s): Geoffrey Somers MD [Primary Care Provider] - 1-2 days Matt Ohara MD [STAFF PHYSICIAN] - 1 Week Marcin Fulton DO [Doctor of Osteopathic Medicine] - 1 Week Patient Instructions/Handouts: Recurrent Seizures in Adults (DC) Activity/Diet/Wound Care/Special Instructions: Maintain splint to left upper extremity at all times. Rest, ice and elevate the left upper extremity. Follow up with [facility] in one week. Any questions please call .
--- NOTE | 2017-08-17 18:09 | P.PN ---
Subjective Principal diagnosis: seizure, generalized tonic Neurology is following a 47-year-old female for uncontrolled seizure. Patient has a history of seizure and is on Keppra 1000 mg, bid daily. Patient originally presented at [facility] but was transferred to [facility] for neurological care and workup. Patient was placed on a second AED, Vimpat 50 mg, bid. This is going to be her daily dose if tolerated and no adverse effects are reported. Patient's EEG was found to be abnormal with occasional dysregulation, consistent with reduced seizure threshold. Patient and nursing staff report no new seizure activity and the patient is adjusting to the added medication without complication at this time. On contact, the patient was AOx3, resting in bed in no acute distress. Objective - Vital Signs Vital signs: Vital Signs Temp 98.3 F 08/17/17 15:00 Pulse 77 08/17/17 15:00 Resp 16 08/17/17 15:00 BP 119/67 08/17/17 15:00 Pulse Ox 98 08/17/17 15:00 Intake & Output 08/16/17 08/17/17 08/17/17 18:59 06:59 18:59 Intake Total 500 440 Balance 500 440 Intake: Oral 500 440 Other: Voiding Method Incontinent Bedpan # Voids 0 1 2 # Bowel Movements 0 - Exam Constitutional: AOx3, cooperative HEENT: NC/AT, no facial asymmetry is seen. Throat: Supple, no masses Respiratory: No increased work of breathing Cardiac: Regular rate and Rhythm GI: non tender, non distended Musculoskeletal: Embalmer Assistant strengths are equal bilaterally 5/5, Lower extremity strengths are equal bilaterally at 5/5. Neurological: CN II-XII in tact, patient was AOx3, speech and language are normal, no unilateralizing weakness, no seizure activity note on physical exam. Sensation was normal. Integementary: no rash, no erythema Psychiatric: mood and affect appropriate - Labs CBC & Chem 7: 08/15/17 12:38 08/16/17 09:37 Labs: Abnormal Lab Results - Last 24 Hours (Table) 08/16/17 08/17/17 08/17/17 Range/Units 20:26 07:49 11:53 POC Glucose (mg/dL) 268 H 168 H 256 H (75-99) mg/dL Assessment and Plan (1) End stage renal disease Status: Acute Code(s): N18.6 - END STAGE RENAL DISEASE SNOMED Code(s): 59946968 (2) Diabetes Status: Acute Code(s): E11.9 - TYPE 2 DIABETES MELLITUS WITHOUT COMPLICATIONS SNOMED Code(s): 92336615 (3) Generalized seizure Status: Acute Code(s): R56.9 - UNSPECIFIED CONVULSIONS SNOMED Code(s): 250166754 Plan: 1. Seizures, generalized tonic clonic 2. Anemia 3. Diabetes Patient appears to be well controlled with the addition of Vimpat. The EEG findings are consistent with reduced seizure threshold which is consistent with new pharmacological regimen and adding the second agent to assist with seizure coverage. Based on the patient's imaging, testing and other pertinent medical information , it does appear that the patient's seizures are now managed with the dose of Keppra and vimpat concurrently used in this patient. Vimpat current dose will be the routine dose for this patient at discharge and for home use. Keppra will also be continued. Status: Neurology will clear the patient for discharge from a neurological standpoint. Any questions, contact our office. Toni Sutton, [employer]-C Neurology For Dr. Matt Ohara I discussed the patient's pertinent medical information with Dr. Ohara. He agrees with the plan of care as implemented.
[2017-08-20] MEDS ORDERED: ERGOCALCIFEROL 50,000 UNIT CAP PO SCH (09:00)
== END 2017-08-17 17:04 | disposition home or self-care (01) | DRG 100 ==
LOC: EC 18:20 → 4MS4W 21:30
PROVIDERS: ADMIT Family Medicine; ATTEND Family Medicine
PROC: 5A1D70Z Performance of Urinary Filtration, Intermittent, Less than 6 Hours Per Day (ICD-10-PCS; principal; 2017-08-16)
DX: G40.409 Other generalized epilepsy and epileptic syndromes, not intractable, without status epilepticus (principal); N18.6 End stage renal disease; E11.22 Type 2 diabetes mellitus with diabetic chronic kidney disease; I12.0 Hypertensive chronic kidney disease with stage 5 chronic kidney disease or end stage renal disease; E87.1 Hypo-osmolality and hyponatremia; E11.65 Type 2 diabetes mellitus with hyperglycemia; S62.305A Unspecified fracture of fourth metacarpal bone, left hand, initial encounter for closed fracture; D64.9 Anemia, unspecified; F03.90 Unspecified dementia, unspecified severity, without behavioral disturbance, psychotic disturbance, mood disturbance, and anxiety; E03.9 Hypothyroidism, unspecified; M89.9 Disorder of bone, unspecified; F31.9 Bipolar disorder, unspecified; Z79.02 Long term (current) use of antithrombotics/antiplatelets; Z79.4 Long term (current) use of insulin; Z79.899 Other long term (current) drug therapy; Z87.891 Personal history of nicotine dependence; Z99.2 Dependence on renal dialysis; W19.XXXA Unspecified fall, initial encounter
CPT/HCPCS: 80048; 84100; 85025; 90935; 95819; 99285

== ENCOUNTER → 2018-07-10 | Outpatient (CLI) | payer MEDICARE, OTHER | END | disposition home or self-care (01) | LOC: LABWHC1 16:10 | PROVIDERS: ATTEND Psychiatry & Neurology Neurology | DX: G40.909 Epilepsy, unspecified, not intractable, without status epilepticus (principal) | CPT/HCPCS: 36415; 80177 ==

== ENCOUNTER 2018-11-16 18:13 | Observation (INO) | payer MEDICARE, OTHER ==
[2018-11-16] MEDS ORDERED: lamoTRIgine 100 MG TAB PO STA (18:36)
[2018-11-16] MEDS ORDERED: levETIRAcetam 500 MG TAB PO STA (18:36)
[2018-11-16 19:22] LABS: Albumin 4.8 g/dL (3.5-5.0); Calcium 9.1 mg/dL (8.4-10.2); Potassium 3.4 mmol/L (3.5-5.1); Total Bilirubin 0.7 mg/dL (0.2-1.3); Total Protein 8.1 g/dL (6.3-8.2)
[2018-11-16] MEDS ORDERED: levETIRAcetam IV 500 MG in SODIUM CHLORIDE 0.9% 100 ML IVPB STA ×2 (19:29→23:01)
[2018-11-16] MEDS ORDERED: NALOXONE 0.4 MG/ML 1 ML VIAL IV PRN (20:41)
--- NOTE | 2018-11-16 20:41 | ED ---
Seizure HPI - General Chief Complaint: Seizure Stated Complaint: Seizure Time Seen by Provider: 11/16/18 18:27 Source: family Mode of arrival: ambulatory Limitations: no limitations - History of Present Illness Initial Comments: Patient presented after having multiple seizures today. Information is provided by her son. The patient has postictal state. She does not answer questions or provide further details. - Related Data Home Medications Medication Instructions Recorded Confirmed Citalopram Hydrobromide [CeleXA] 10 mg PO DAILY 02/12/17 11/16/18 Clopidogrel [Plavix] 75 mg PO DAILY 02/12/17 11/16/18 Ergocalciferol (Vitamin D2) 50,000 unit PO Q7D 02/12/17 11/16/18 [Vitamin D2] Metoprolol Tartrate 25 mg PO BID 02/12/17 11/16/18 Omeprazole 20 mg PO BID 02/12/17 11/16/18 amLODIPine [Norvasc] 10 mg PO DAILY 02/12/17 11/16/18 Atorvastatin [Lipitor] 40 mg PO HS 08/14/17 11/16/18 INSULIN LISPRO (humaLOG) [humaLOG] See Protocol SQ ACHS 08/14/17 11/16/18 Insulin Glargine [Lantus] 15 unit SQ DAILY 08/14/17 11/16/18 Albuterol Sulfate [Proair Hfa] 2 puff INHALATION RT-Q4H PRN 11/16/18 11/16/18 Lacosamide [Vimpat] 100 mg PO DIRECTED 11/16/18 11/16/18 Lacosamide [Vimpat] 100 mg PO BID 11/16/18 11/16/18 Ranitidine HCl 150 mg PO BID 11/16/18 11/16/18 levETIRAcetam [Keppra] 500 mg PO DIRECTED 11/16/18 11/16/18 levETIRAcetam [Keppra] 500 mg PO Q12HR 11/16/18 11/16/18 Previous Rx's Medication Instructions Recorded Sevelamer [Renvela] 800 mg PO TID-W/MEALS tab 08/17/17 Allergies Allergy/AdvReac Type Severity Reaction Status Date / Time Penicillins Allergy Itching Verified 11/16/18 19:05 Review of Systems ROS Statement: Those systems with pertinent positive or pertinent negative responses have been documented in the HPI. ROS Other: All systems not noted in ROS Statement are negative. Past Medical History Past Medical History: Chest Pain / Angina, Diabetes Mellitus, Hypertension, Renal Disease, Seizure Disorder, Thyroid Disorder Additional Past Medical History / Comment(s): dialysis bipolar History of Any Multi-Drug Resistant Organisms: None Reported Past Surgical History: Section, Tonsillectomy Additional Past Surgical History / Comment(s): fistula Past Psychological History: Bipolar Smoking Status: Former smoker Past Alcohol Use History: Occasional Past Drug Use History: None Reported General Exam Limitations: altered mental status General appearance: lethargic, obtunded Head exam: Present: atraumatic Eye exam: Present: normal appearance, EOMI ENT exam: Present: normal exam Neck exam: Present: normal inspection Respiratory exam: Present: normal lung sounds bilaterally Cardiovascular Exam: Present: regular rate, normal rhythm GI/Abdominal exam: Present: soft. Absent: tenderness Extremities exam: Present: normal inspection. Absent: tenderness Back exam: Present: normal inspection Neurological exam: Present: other (Altered mental status, prolonged postictal state) Psychiatric exam: Present: normal affect Skin exam: Present: warm, dry Course Vital Signs 11/16/18 11/16/18 18:20 19:12 Temperature 97.9 F Pulse Rate 80 92 Respiratory 20 16 Rate Blood Pressure 175/87 207/113 O2 Sat by Pulse 99 96 Oximetry Medical Decision Making - Medical Decision Making Patient presents after a seizure. I ordered her seizure medication. She had recurrent seizures in the [facility] department. She has prolonged postictal. She will be admitted to the hospital. - Lab Data Result diagrams: 11/16/18 18:56 Lab Results 11/16/18 Range/Units 18:56 Sodium 140 (137-145) mmol/L Potassium 3.4 L (3.5-5.1) mmol/L Chloride 96 L (98-107) mmol/L Carbon Dioxide 25 (22-30) mmol/L Anion Gap 19 mmol/L BUN 13 (7-17) mg/dL Creatinine 3.13 H (0.52-1.04) mg/dL Est GFR (CKD-EPI)AfAm 19 (>60 ml/min/1.73 sqM) Est GFR (CKD-EPI)NonAf 17 (>60 ml/min/1.73 sqM) Glucose 173 H (74-99) mg/dL Calcium 9.1 (8.4-10.2) mg/dL Total Bilirubin 0.7 (0.2-1.3) mg/dL AST 22 (14-36) U/L ALT 22 (9-52) U/L Alkaline Phosphatase 115 (38-126) U/L Total Protein 8.1 (6.3-8.2) g/dL Albumin 4.8 (3.5-5.0) g/dL Disposition Clinical Impression: Epileptic seizure Disposition: ADMITTED IP TO THIS HOSP Condition: Fair Instructions (If sedation given, give patient instructions): Recurrent Seizures in Adults (ED) Is patient prescribed a controlled substance at d/c from ED?: No Referrals: Geoffrey Somers MD [Primary Care Provider] - 1-2 days
[2018-11-16] MEDS ORDERED: ALBUTEROL NEBULIZED 2.5 MG/3 ML INHALATION PRN (20:42)
[2018-11-16] MEDS ORDERED: ATORVASTATIN 40 MG TAB PO SCH (21:00)
[2018-11-16] MEDS ORDERED: LACOSAMIDE 50 MG TABLET PO SCH (21:00)
[2018-11-16 22:47] VITALS: BMI 32.9
[2018-11-16] MEDS: FAMOTIDINE 20 MG TAB PO SCH (23:22)
[2018-11-16] MEDS: levETIRAcetam 500 MG TAB PO SCH (23:22)
[2018-11-16] MEDS: METOPROLOL TARTRATE 25 MG TAB PO SCH (23:22)
[2018-11-16] MEDS: PANTOPRAZOLE 40 MG TABLET PO SCH (23:23)
[2018-11-16] MEDS ORDERED: LACOSAMIDE IV 100 MG in SODIUM CHLORIDE 0.9% 50 ML IVPB SCH (23:30)
[2018-11-16] MEDS: LACOSAMIDE IV 100 MG in SODIUM CHLORIDE 0.9% 50 ML IVPB SCH (23:51)
[2018-11-17 07:14] LABS: Glucose,Whole Blood 116 mg/dL (75-99)
[2018-11-17 08:06] VITALS: RESP 16; TEMP 97.7
[2018-11-17] MEDS: FAMOTIDINE 20 MG TAB PO SCH (08:56)
[2018-11-17] MEDS: levETIRAcetam 500 MG TAB PO SCH (08:57)
[2018-11-17] MEDS: SEVELAMER 800 MG TAB PO SCH ×2 (08:57→13:38)
[2018-11-17] MEDS: METOPROLOL TARTRATE 25 MG TAB PO SCH (09:00)
[2018-11-17] MEDS ORDERED: CLOPIDOGREL 75 MG TAB PO SCH (09:00)
[2018-11-17] MEDS: PANTOPRAZOLE 40 MG TABLET PO SCH (09:00)
[2018-11-17] MEDS ORDERED: CITALOPRAM HYDROBROMIDE 10 MG TAB PO SCH (09:00)
[2018-11-17] MEDS ORDERED: INSULIN DETEMIR (LEVEMIR) 100 UNIT/ML SYR SQ SCH (09:00)
[2018-11-17] MEDS ORDERED: amLODIPine 10 MG TAB PO SCH (09:00)
[2018-11-17] MEDS: LACOSAMIDE IV 100 MG in SODIUM CHLORIDE 0.9% 50 ML IVPB SCH (09:43)
[2018-11-17 09:57] LABS: Glucose,Whole Blood 286 mg/dL (75-99)
[2018-11-17 11:45] LABS: Glucose,Whole Blood 345 mg/dL (75-99)
--- NOTE | 2018-11-17 14:38 | P.HPIM ---
History of Present Illness 48-year-old female came in for multiple seizures witnessed by son. Patient does have history of seizures was seen recently at [facility] for similar complaints and it took a while for her seizures to be under control. Patient is presently on Vimpat and Keppra. Patient had a vagal similar to that was placed recently for seizures. In spite of which patient had multiple seizures with postictal confusion. Patient had a witnesses seizure here in the hospital details of which are not clearly available at this time he appears to have postictal confusion after that patient when I evaluated is alert oriented 3 not confused this seizure apparently happened at the 9:30 today. Patient is end- stage renal disease on hemodialysis denied any fever chills nausea vomiting dysuria no evidence of sepsis at this time. Patient was admitted last night but unfortunately we do not have neurology service and had seizure management will require more expert neurological management because of which patient will be transferred to [facility]. Discussed the with Q on transfer team who discussed her case with Dr. Nash who is agreeable for transfer and patient will be admitted there under my service Review of Systems REVIEW OF SYSTEMS: CONSTITUTIONAL: No fever, no malaise, no fatigue. HEENT: No recent visual problems or hearing problems. Denied any sore throat. CARDIOVASCULAR: No chest pain, orthopnea, PND, no palpitations, no syncope. PULMONARY: No shortness of breath, no cough, no hemoptysis. GASTROINTESTINAL: No diarrhea, no nausea, no vomiting, no abdominal pain. NEUROLOGICAL: No headaches, no weakness, no numbness. HEMATOLOGICAL: Denies any bleeding or petechiae. GENITOURINARY: Denies any burning micturition, frequency, or urgency. MUSCULOSKELETAL/RHEUMATOLOGICAL: Denies any joint pain, swelling, or any muscle pain. ENDOCRINE: Denies any polyuria or polydipsia. The rest of the 14-point review of systems is negative. Past Medical History Past Medical History: Chest Pain / Angina, Diabetes Mellitus, Hypertension, Renal Disease, Seizure Disorder, Thyroid Disorder Additional Past Medical History / Comment(s): dialysis bipolar History of Any Multi-Drug Resistant Organisms: None Reported Past Surgical History: Section, Tonsillectomy Additional Past Surgical History / Comment(s): fistula Past Psychological History: Bipolar Smoking Status: Former smoker Past Alcohol Use History: Occasional Past Drug Use History: None Reported Medications and Allergies Home Medications Medication Instructions Recorded Confirmed Type Citalopram Hydrobromide [CeleXA] 10 mg PO DAILY 02/12/17 11/16/18 History Clopidogrel [Plavix] 75 mg PO DAILY 02/12/17 11/16/18 History Ergocalciferol (Vitamin D2) 50,000 unit PO Q7D 02/12/17 11/16/18 History [Vitamin D2] Metoprolol Tartrate 25 mg PO BID 02/12/17 11/16/18 History Omeprazole 20 mg PO BID 02/12/17 11/16/18 History amLODIPine [Norvasc] 10 mg PO DAILY 02/12/17 11/16/18 History Atorvastatin [Lipitor] 40 mg PO HS 08/14/17 11/16/18 History INSULIN LISPRO (humaLOG) [humaLOG] See Protocol SQ ACHS 08/14/17 11/16/18 History Insulin Glargine [Lantus] 15 unit SQ DAILY 08/14/17 11/16/18 History Sevelamer [Renvela] 800 mg PO TID-W/MEALS tab 08/17/17 11/16/18 Rx Albuterol Sulfate [Proair Hfa] 2 puff INHALATION RT-Q4H PRN 11/16/18 11/16/18 History Lacosamide [Vimpat] 100 mg PO DIRECTED 11/16/18 11/16/18 History Lacosamide [Vimpat] 100 mg PO BID 11/16/18 11/16/18 History Ranitidine HCl 150 mg PO BID 11/16/18 11/16/18 History levETIRAcetam [Keppra] 500 mg PO DIRECTED 11/16/18 11/16/18 History levETIRAcetam [Keppra] 500 mg PO Q12HR 11/16/18 11/16/18 History Allergies Allergy/AdvReac Type Severity Reaction Status Date / Time Penicillins Allergy Itching Verified 11/16/18 19:05 Physical Exam Vitals: Vital Signs Temp Pulse Pulse Resp BP BP Pulse Ox 11/17/18 07:00 97.7 F 87 16 167/106 98 11/16/18 22:53 98.1 F 85 20 161/81 97 11/16/18 21:44 98.2 F 87 16 176/99 99 11/16/18 19:12 92 16 207/113 96 11/16/18 18:20 97.9 F 80 20 175/87 99 Intake and Output 11/16/18 11/17/18 11/17/18 22:59 06:59 14:59 Other: # Voids 1 3 # Bowel Movements 0 Weight 81.647 kg PHYSICAL EXAMINATION: GENERAL: The patient is alert and oriented x3, not in any acute distress. Well developed, well nourished. HEENT: Pupils are round and equally reacting to light. EOMI. No scleral icterus. No conjunctival pallor. Normocephalic, atraumatic. No pharyngeal erythema. No thyromegaly. CARDIOVASCULAR: S1 and S2 present. No murmurs, rubs, or gallops. PULMONARY: Chest is clear to auscultation, no wheezing or crackles. ABDOMEN: Soft, nontender, nondistended, normoactive bowel sounds. No palpable organomegaly. MUSCULOSKELETAL: No joint swelling or deformity. EXTREMITIES: No cyanosis, clubbing, or pedal edema. NEUROLOGICAL: Gross neurological examination did not reveal any focal deficits. SKIN: No rashes. Results CBC & Chem 7: 11/16/18 18:56 Labs: Abnormal Lab Results - Last 24 Hours (Table) 11/16/18 11/17/18 11/17/18 Range/Units 18:56 07:02 09:45 Potassium 3.4 L (3.5-5.1) mmol/L Chloride 96 L (98-107) mmol/L Creatinine 3.13 H (0.52-1.04) mg/dL Glucose 173 H (74-99) mg/dL POC Glucose (mg/dL) 116 H 286 H (75-99) mg/dL 11/17/18 Range/Units 11:33 Potassium (3.5-5.1) mmol/L Chloride (98-107) mmol/L Creatinine (0.52-1.04) mg/dL Glucose (74-99) mg/dL POC Glucose (mg/dL) 345 H (75-99) mg/dL Thrombosis Risk Factor Assmnt - Choose All That Apply Any of the Below Risk Factors Present?: Yes Each Factor Represents 1 point: Age 41-60 years Other Risk Factors: No Other congenital or acquired thrombophilia - If yes, enter type in comment: No Thrombosis Risk Factor Assessment Total Risk Factor Score: 1 Thrombosis Risk Factor Assessment Level: Low Risk Assessment and Plan Plan: -Breakthrough uncontrolled seizures: Patient will be continued on present medication patient may need the levels of her antiseizure medications which will be obtained at [facility]. Patient will be a on a telemetry bed. I do not have a CAT scan here. Patient has a known seizures history was recently treated for this. -End-stage renal disease, dialysis dependent -Diabetes mellitus 2 -Hypothyroidism -Hypertension -Diabetic peripheral neuropathy and nephropathy Patient will be transferred to [facility] for neurological evaluation
--- NOTE | 2018-11-17 14:39 | P.DS ---
Providers Date of admission: 11/16/18 20:42 Attending physician: Zbigniew Mccabe Primary care physician: Geoffrey Somers [facility] Course: Please refer to my HPI for further details Patient Condition at Discharge: Fair Plan - Discharge Summary Discharge Rx Participant: Yes New Discharge Prescriptions: No Action amLODIPine [Norvasc] 10 mg PO DAILY Metoprolol Tartrate 25 mg PO BID Omeprazole 20 mg PO BID Ergocalciferol (Vitamin D2) [Vitamin D2] 50,000 unit PO Q7D Clopidogrel [Plavix] 75 mg PO DAILY Citalopram Hydrobromide [CeleXA] 10 mg PO DAILY Insulin Glargine [Lantus] 15 unit SQ DAILY INSULIN LISPRO (humaLOG) [humaLOG] See Protocol SQ ACHS Atorvastatin [Lipitor] 40 mg PO HS Sevelamer [Renvela] 800 mg PO TID-W/MEALS tab Lacosamide [Vimpat] 100 mg PO BID Ranitidine HCl 150 mg PO BID Albuterol Sulfate [Proair Hfa] 2 puff INHALATION RT-Q4H PRN PRN Reason: Shortness Of Breath levETIRAcetam [Keppra] 500 mg PO Q12HR levETIRAcetam [Keppra] 500 mg PO DIRECTED Lacosamide [Vimpat] 100 mg PO DIRECTED Discharge Medication List Citalopram Hydrobromide [CeleXA] 10 mg PO DAILY 02/12/17 [History] Clopidogrel [Plavix] 75 mg PO DAILY 02/12/17 [History] Ergocalciferol (Vitamin D2) [Vitamin D2] 50,000 unit PO Q7D 02/12/17 [History] Metoprolol Tartrate 25 mg PO BID 02/12/17 [History] Omeprazole 20 mg PO BID 02/12/17 [History] amLODIPine [Norvasc] 10 mg PO DAILY 02/12/17 [History] Atorvastatin [Lipitor] 40 mg PO HS 08/14/17 [History] INSULIN LISPRO (humaLOG) [humaLOG] See Protocol SQ ACHS 08/14/17 [History] Insulin Glargine [Lantus] 15 unit SQ DAILY 08/14/17 [History] Sevelamer [Renvela] 800 mg PO TID-W/MEALS tab 08/17/17 [Rx] Albuterol Sulfate [Proair Hfa] 2 puff INHALATION RT-Q4H PRN 11/16/18 [History] Lacosamide [Vimpat] 100 mg PO DIRECTED 11/16/18 [History] Lacosamide [Vimpat] 100 mg PO BID 11/16/18 [History] Ranitidine HCl 150 mg PO BID 11/16/18 [History] levETIRAcetam [Keppra] 500 mg PO DIRECTED 11/16/18 [History] levETIRAcetam [Keppra] 500 mg PO Q12HR 11/16/18 [History] Follow up Appointment(s)/Referral(s): Geoffrey Somers MD [Primary Care Provider] - 1-2 days Patient Instructions/Handouts: Recurrent Seizures in Adults (ED)
[2018-11-17 15:35] VITALS: PULSE 60
[2018-11-17 15:36] VITALS: BP 165/81
[2018-11-21] MEDS ORDERED: ERGOCALCIFEROL 50,000 UNIT CAP PO SCH (09:00)
== END 2018-11-17 15:07 | disposition other institution (70) ==
LOC: EC 18:13 → 4SSUR 20:42
PROVIDERS: ADMIT Internal Medicine; ATTEND Internal Medicine
DX: G40.909 Epilepsy, unspecified, not intractable, without status epilepticus (principal); I12.0 Hypertensive chronic kidney disease with stage 5 chronic kidney disease or end stage renal disease; N18.6 End stage renal disease; Z99.2 Dependence on renal dialysis; E11.42 Type 2 diabetes mellitus with diabetic polyneuropathy; E11.22 Type 2 diabetes mellitus with diabetic chronic kidney disease; E11.21 Type 2 diabetes mellitus with diabetic nephropathy; F31.9 Bipolar disorder, unspecified; E03.9 Hypothyroidism, unspecified; Z87.891 Personal history of nicotine dependence; Z79.02 Long term (current) use of antithrombotics/antiplatelets; Z79.899 Other long term (current) drug therapy; Z79.4 Long term (current) use of insulin; Z88.0 Allergy status to penicillin
CPT/HCPCS: 96374; 99285; 36415; 80053; G0378 ×2; J1953; C9254 ×2

== ENCOUNTER 2019-02-26 08:10 | Inpatient (IN) | payer MEDICARE, OTHER ==
--- NOTE | 2019-02-26 11:16 | P.NPCON ---
History of Present Illness - Reason for Consult end stage renal disease - History of Present Illness Reason for consultation: End-stage renal disease History of present illness: Patient is a 49-year-old female seen in renal consultation for end-stage renal disease. She is maintained on hemodialysis on a Monday schedule. Patient has a history of seizures and has required multiple hospitalizations for the same. Agents that she had another seizure yesterday and went to [facility]. Due to no neurology service, she was transferred here. She is currently awake and alert. Her mentation is currently at baseline. She denies any chest shortness of breath. No vomiting or diarrhea. No abdominal pain. No syncopal episodes. She did complete hemodialysis yesterday. Vital signs are stable. General: The patient appeared well nourished and normally developed. HEENT: Head exam is unremarkable. Neck is without jugular venous distension. LUNGS: Lungs are clear to auscultation and percussion. Breath sounds decreased. HEART: Rate and Rhythm are regular. First and second heart sounds normal. No murmurs, rubs or gallops. ABDOMEN: Abdominal exam reveals normal bowel sounds. Non-tender and non- distended. No evidence of peritonitis. EXTREMITITES: No clubbing, cyanosis, or edema. Past Medical History Past Medical History: Chest Pain / Angina, Diabetes Mellitus, Hypertension, Renal Disease, Seizure Disorder, Thyroid Disorder Additional Past Medical History / Comment(s): dialysis bipolar History of Any Multi-Drug Resistant Organisms: None Reported Past Surgical History: Section, Tonsillectomy Additional Past Surgical History / Comment(s): fistula Past Psychological History: Bipolar Smoking Status: Former smoker Past Alcohol Use History: Occasional Past Drug Use History: None Reported Medications and Allergies Home Medications Medication Instructions Recorded Confirmed Type Citalopram Hydrobromide [CeleXA] 10 mg PO DAILY 02/12/17 11/16/18 History Clopidogrel [Plavix] 75 mg PO DAILY 02/12/17 11/16/18 History Ergocalciferol (Vitamin D2) 50,000 unit PO Q7D 02/12/17 11/16/18 History [Vitamin D2] Metoprolol Tartrate 25 mg PO BID 02/12/17 11/16/18 History Omeprazole 20 mg PO BID 02/12/17 11/16/18 History amLODIPine [Norvasc] 10 mg PO DAILY 02/12/17 11/16/18 History Atorvastatin [Lipitor] 40 mg PO HS 08/14/17 11/16/18 History INSULIN LISPRO (humaLOG) [humaLOG] See Protocol SQ ACHS 08/14/17 11/16/18 History Insulin Glargine [Lantus] 15 unit SQ DAILY 08/14/17 11/16/18 History Sevelamer [Renvela] 800 mg PO TID-W/MEALS tab 08/17/17 11/16/18 Rx Albuterol Sulfate [Proair Hfa] 2 puff INHALATION RT-Q4H PRN 11/16/18 11/16/18 History Lacosamide [Vimpat] 100 mg PO DIRECTED 11/16/18 11/16/18 History Lacosamide [Vimpat] 100 mg PO BID 11/16/18 11/16/18 History Ranitidine HCl 150 mg PO BID 11/16/18 11/16/18 History levETIRAcetam [Keppra] 500 mg PO DIRECTED 11/16/18 11/16/18 History levETIRAcetam [Keppra] 500 mg PO Q12HR 11/16/18 11/16/18 History Allergies Allergy/AdvReac Type Severity Reaction Status Date / Time Penicillins Allergy Itching Verified 11/16/18 19:05 Assessment and Plan Plan: Assessment: 1. End-stage renal disease maintained on hemodialysis on a Monday schedule. 2. Seizure disorder. 3. Chronic kidney disease mineral bone disease. 4. Insulin-dependent diabetes mellitus. 5. Hyperlipidemia. 6. Hypertension with chronic kidney disease. Plan: Hemodialysis tomorrow. Home medications including antihypertensives and phosphate binders to be resumed. Neurology consultation pending. Thank you for the consultation. I will continue to follow the patient with you during her hospital stay.
[2019-02-26 11:51] LABS: Glucose,Whole Blood 373 mg/dL (75-99)
[2019-02-26] MEDS ORDERED: ALBUTEROL NEBULIZED 2.5 MG/3 ML INHALATION PRN (13:33)
[2019-02-26 16:04] LABS: Glucose,Whole Blood 288 mg/dL (75-99)
[2019-02-26] MEDS: INSULIN ASPART (NovoLOG) 100 UNIT/ML VIAL SQ SCH ×2 (16:43→22:35)
[2019-02-26] MEDS: SEVELAMER 800 MG TAB PO SCH (16:43)
[2019-02-26 21:17] LABS: Glucose,Whole Blood 244 mg/dL (75-99)
[2019-02-26] MEDS: HEPARIN SODIUM,PORCINE 5,000 UNIT/ML 1 ML VIAL SQ SCH (22:35)
[2019-02-26] MEDS: ATORVASTATIN 40 MG TAB PO SCH (22:35)
[2019-02-26] MEDS: levETIRAcetam 500 MG TAB PO SCH (22:36)
[2019-02-26] MEDS: METOPROLOL TARTRATE 25 MG TAB PO SCH (22:38)
[2019-02-26] MEDS: LACOSAMIDE 50 MG TABLET PO SCH (22:38)
[2019-02-27 03:59] LABS: Glucose,Whole Blood 156 mg/dL (75-99)
[2019-02-27 06:49] LABS: Glucose,Whole Blood 198 mg/dL (75-99)
[2019-02-27] MEDS: INSULIN ASPART (NovoLOG) 100 UNIT/ML VIAL SQ SCH ×4 (07:15→20:38)
[2019-02-27] MEDS: INSULIN DETEMIR (LEVEMIR) 100 UNIT/ML SYR SQ SCH (07:17)
[2019-02-27] MEDS: CITALOPRAM HYDROBROMIDE 10 MG TAB PO SCH (07:18)
[2019-02-27] MEDS: PANTOPRAZOLE 40 MG TABLET PO SCH (07:18)
[2019-02-27] MEDS: LACOSAMIDE 50 MG TABLET PO SCH ×2 (07:18→17:23)
[2019-02-27] MEDS: HEPARIN SODIUM,PORCINE 5,000 UNIT/ML 1 ML VIAL SQ SCH ×2 (07:18→20:37)
[2019-02-27] MEDS: amLODIPine 10 MG TAB PO SCH (07:19)
[2019-02-27] MEDS: levETIRAcetam 500 MG TAB PO SCH ×2 (07:19→17:23)
[2019-02-27] MEDS: CLOPIDOGREL 75 MG TAB PO SCH (07:19)
[2019-02-27] MEDS: SEVELAMER 800 MG TAB PO SCH ×3 (07:19→17:23)
[2019-02-27] MEDS: METOPROLOL TARTRATE 25 MG TAB PO SCH ×2 (07:27→20:37)
[2019-02-27] MEDS ORDERED: LORazepam 2 MG/ML INJ IV PRN (08:16)
[2019-02-27] MEDS ORDERED: hydrALAZINE HCL 20 MG/ML 1 ML VIAL IVP PRN (11:01)
--- NOTE | 2019-02-27 11:02 | P.PN ---
Subjective Patient is seen in follow-up for end-stage renal disease. She is maintained on hemodialysis on a Monday schedule. Currently seen while undergoing hemodialysis. No further seizures. No active complaints at this time. Vital signs are stable. General: The patient appeared well nourished and normally developed. HEENT: Head exam is unremarkable. Neck is without jugular venous distension. LUNGS: Lungs are clear to auscultation and percussion. Breath sounds decreased. HEART: Rate and Rhythm are regular. First and second heart sounds normal. No murmurs, rubs or gallops. ABDOMEN: Abdominal exam reveals normal bowel sounds. Non-tender and non- distended. No evidence of peritonitis. EXTREMITITES: No clubbing, cyanosis, or edema. Objective - Vital Signs Vital signs: Vital Signs Temp 98.0 F 02/27/19 06:57 Pulse 99 02/27/19 06:57 Resp 16 02/27/19 06:57 BP 184/87 02/27/19 07:28 Pulse Ox 99 02/27/19 06:57 Intake & Output 02/26/19 02/27/19 02/27/19 18:59 06:59 18:59 Intake Total 740 222 Balance 740 222 Weight 80.739 kg Intake: Oral 740 222 Other: Voiding Method Toilet Toilet Diaper # Voids 2 1 - Labs Labs: Abnormal Lab Results - Last 24 Hours (Table) 02/26/19 02/26/19 02/26/19 Range/Units 11:32 15:52 21:15 POC Glucose (mg/dL) 373 H 288 H 244 H (75-99) mg/dL 02/27/19 02/27/19 Range/Units 03:57 06:37 POC Glucose (mg/dL) 156 H 198 H (75-99) mg/dL Assessment and Plan Plan: Assessment: 1. End-stage renal disease maintained on hemodialysis on a Monday schedule. 2. Seizure disorder. 3. Chronic kidney disease mineral bone disease maintained on Renvela. 4. Insulin-dependent diabetes mellitus. 5. Hyperlipidemia. 6. Hypertension with chronic kidney disease. Currently controlled. Plan: Currently seen while undergoing hemodialysis. Next hemodialysis on Monday. Await neurology recommendations. Maintain current antihypertensives. I will add hydralazine 10 mg every 4 hours if needed for systolic blood pressure greater than 160.
[2019-02-27 12:11] LABS: Glucose,Whole Blood 249 mg/dL (75-99)
[2019-02-27 12:18] LABS: Basophils # (A) 0.1 k/uL (0-0.2); Basophils % (A) 1 %; Eosinophils # (A) 0.3 k/uL (0-0.7); Eosinophils % (A) 3 %; HCT 35.8 % (34.0-46.0); HGB 12.2 gm/dL (11.4-16.0); Lymphocytes % (A) 26 %; MCHC 34.1 g/dL (31.0-37.0); MCV 85.1 fL (80.0-100.0); Mean Platelet Volume 8.9; Monocytes # (A) 0.4 k/uL (0-1.0); Monocytes % (A) 6 %; Neutrophils # (A) 4.9 k/uL (1.3-7.7); Neutrophils % (A) 64 %; Platelet Count 256 k/uL (150-450); RBC 4.21 m/uL (3.80-5.40); RDW 14.1 % (11.5-15.5); WBC 7.6 k/uL (3.8-10.6)
--- NOTE | 2019-02-27 12:29 | P.HPIM ---
History of Present Illness Gerri Hidalgo a 49 y.o.femalewith past medical history of seizure disorder who follows up with Dr. Ying, stroke,subdural hematoma,hypertension, diabetes mellitus, end-stage renal disease on dialysis. He presents because of seizure. Patient was on the Vimpat and Keppra at home. She was on dialysis center when she developed tonic-clonic seizure-like activity. Patient stated that she gets the seizure attacks frequently and the last time she had features seizure was about 3 weeks ago. She notes she takes 2 medication and her help her given her medication. Patient at baseline has left hemiparesis due to previous stroke and she uses wheelchair and a walker for short distance. Also patient has chronic dysarthria On admission vitals look stable, her blood pressure slightly elevated at 168/90. Electrolytes within normal limits, creatinine. INR is 1.0 5.7, liver enzymes not elevated, hemoglobin A1c is 8.2. CBC is unremarkable. Sugars controlled. CT of the head: No acute event, age-related atrophy. EKG shows sinus tachycardia at 100 BPM, with no significant ST-T changes. On admission patient was started on Ativan when necessary Eventually patient was transferred to [facility] to be evaluated by neurologist. discussed the case with the neurologist and the recommended EGD. Patient today looks calm with no more seizures aren't no more new complaints. She is getting hemodialysis as per nephrology recommendation. Patient is getting EEG now. Review of Systems CONSTITUTIONAL: No fever, no malaise, no fatigue. HEENT: No recent visual problems or hearing problems. Denied any sore throat. CARDIOVASCULAR: No orthopnea, PND, no palpitations, no syncope. PULMONARY: No shortness of breath, no cough, no hemoptysis. GASTROINTESTINAL: No diarrhea, no nausea, no vomiting, no abdominal pain. Normoactive bowel sounds. NEUROLOGICAL: No headaches, no weakness, no numbness. HEMATOLOGICAL: Denies any bleeding or petechiae. GENITOURINARY: Denies any burning micturition, frequency, or urgency. MUSCULOSKELETAL/RHEUMATOLOGICAL: Denies any joint pain, swelling, or any muscle pain. ENDOCRINE: Denies any polyuria or polydipsia. Past Medical History Past Medical History: Chest Pain / Angina, Diabetes Mellitus, Hypertension, Kristina l Disease, Seizure Disorder, Thyroid Disorder Additional Past Medical History / Comment(s): dialysis bipolar History of Any Multi-Drug Resistant Organisms: None Reported Past Surgical History: Section, Tonsillectomy Additional Past Surgical History / Comment(s): fistula Past Anesthesia/Blood Transfusion Reactions: No Reported Reaction Past Psychological History: Bipolar Smoking Status: Former smoker Past Alcohol Use History: Occasional Past Drug Use History: None Reported Medications and Allergies Home Medications Medication Instructions Recorded Confirmed Type Citalopram Hydrobromide [CeleXA] 10 mg PO DAILY 02/12/17 02/26/19 History Clopidogrel [Plavix] 75 mg PO DAILY 02/12/17 02/26/19 History Ergocalciferol (Vitamin D2) 50,000 unit PO ESQUIVEL 02/12/17 02/26/19 History [Vitamin D2] Metoprolol Tartrate 25 mg PO BID 02/12/17 02/26/19 History Omeprazole 20 mg PO BID 02/12/17 02/26/19 History amLODIPine [Norvasc] 10 mg PO DAILY 02/12/17 02/26/19 History Atorvastatin [Lipitor] 40 mg PO HS 08/14/17 02/26/19 History INSULIN LISPRO (humaLOG) [humaLOG] See Protocol SQ ACHS 08/14/17 02/26/19 H istory Insulin Glargine [Lantus] 15 unit SQ DAILY 08/14/17 02/26/19 History Sevelamer [Renvela] 800 mg PO TID-W/MEALS tab 08/17/17 02/26/19 Rx Albuterol Sulfate [Proair Hfa] 2 puff INHALATION RT-Q4H PRN 11/16/18 02/26/19 History Lacosamide [Vimpat] 100 mg PO DIRECTED 11/16/18 02/26/19 History Ranitidine HCl 150 mg PO BID 11/16/18 02/26/19 History levETIRAcetam [Keppra] 500 mg PO DIRECTED 11/16/18 02/26/19 History Allergies Allergy/AdvReac Type Severity Reaction Status Date / Time Penicillins Allergy Itching Verified 02/26/19 12:30 Physical Exam Vitals: Vital Signs Temp Pulse Pulse Resp BP BP Pulse Ox 02/27/19 07:28 184/87 02/27/19 06:57 98.0 F 99 16 197/102 99 02/26/19 23:00 96.8 F L 78 16 168/84 98 02/26/19 20:34 98.3 F 79 16 169/89 100 02/26/19 17:41 16 02/26/19 15:00 98.5 F 84 16 178/94 100 Intake and Output 02/26/19 02/27/19 02/27/19 22:59 06:59 14:59 Intake Total 150 590 222 Balance 150 590 222 Intake: Oral 150 590 222 Other: Voiding Method Toilet # Voids 1 GENERAL: The patient is alert and oriented x3, not in any acute distress. Well developed, well nourished. HEENT: Pupils are round and equally reacting to light. EOMI. No scleral icterus. No conjunctival pallor. Normocephalic, atraumatic. No pharyngeal erythema. No thyromegaly. CARDIOVASCULAR: S1 and S2 present. No murmurs, rubs, or gallops. PULMONARY: Chest is clear to auscultation, no wheezing or crackles. ABDOMEN: Soft, nontender, nondistended, normoactive bowel sounds. No palpable organomegaly. MUSCULOSKELETAL: No joint swelling or deformity. EXTREMITIES: No cyanosis, clubbing, or pedal edema. NEUROLOGICAL: Gross neurological examination did not reveal any focal deficits. SKIN: No rashes. Results CBC & Chem 7: 02/27/19 12:12 Labs: Abnormal Lab Results - Last 24 Hours (Table) 02/26/19 02/26/19 02/27/19 Range/Units 15:52 21:15 03:57 POC Glucose (mg/dL) 288 H 244 H 156 H (75-99) mg/dL 02/27/19 02/27/19 Range/Units 06:37 11:58 POC Glucose (mg/dL) 198 H 249 H (75-99) mg/dL Thrombosis Risk Factor Assmnt - Choose All That Apply Each Factor Represents 1 point: Age 41-60 years, Obesity (BMI >25) Thrombosis Risk Factor Assessment Total Risk Factor Score: 2 Thrombosis Risk Factor Assessment Level: Low Risk Assessment and Plan Assessment: breakthrough seizure History of seizure disorder History of stroke and subdural hematoma, with residual left hemiparesis and dysarthria Diabetes mellitus Essential hypertension End-stage renal disease on dialysis Plan: This is a pleasant 49 years old female who presents with seizure activity. She has history of seizure. Going to consult nephrology for patient is hemodialysis. Continue with her seizure medication with Ativan when necessary. neurology consult is appreciated and we'll follow their recommendation, they recommended EEG..Labs and medication were reviewed, and he was same treatment, continue symptomatic treatment, resume home medication. Monitor lytes and vitals. DVT and GI prophylaxis. Further recommendation is based on the clinical course of the patient DVT prophylaxis: Subcutaneous heparin GI prophylaxis: Pepcid Prognosis is guarded The patient was admitted to 'Inpatient status' with anticipation of 2 or more midnight stay.
[2019-02-27 12:46] LABS: Calcium 8.7 mg/dL (8.4-10.2); Potassium 3.9 mmol/L (3.5-5.1)
--- NOTE | 2019-02-27 13:22 | P.CNNES ---
History of Present Illness Consult date: 02/27/19 Reason for Consult: breakthrough seizure Chief complaint: breakthrough seizure History of Present Illness: REFERRING PHYSICIAN: Dr. Elfego Horne HISTORY OF PRESENT ILLNESS: Thank you for allowing me to evaluate Ms. Gerri Duke. Ms. Gerri Duke is a 49-year-old woman with past medical history of epilepsy s/p VNS (placed early this year), diabetes, hypertension, end-stage renal disease, hypothyroidism, bipolar disorder, presenting with breakthrough seizures. No family is at bedside at this time. Patient is a poor historian as patient also has a history of poor memory. She states that she had a seizure when she was in the clinic yesterday. Patient reports urinary incontinence and tongue biting during seizures. Denies any bowel incontinence. Patient states that she has seizures since she was a child. Her mother kept the etiology of seizures hidden from the patient. Of note patient is adopted and does not know much of family or history. Patient states that she saw her primary neurologist just about a week ago, and dose for one of her medications was increased from 750 mg twice a day to 1000 mg twice a day. Patient has had any further seizures since admission. Patient underwent her dialysis this morning. Patient states that she actually had a stroke that caused weakness and numbness and tingling in her left upper and lower extremities about a month ago. Patient was admitted at [facility]. Otherwise patient denies any recent sickness, fever, nausea, vomiting, worsening weakness, numbness or tingling. Also denies diarrhea or constipation. Spoke to her , Calvin. States that her neurologist did not change her medication dose but changed the setting of VNS. PAST MEDICAL HISTORY: epilepsy, diabetes, hypertension, end-stage renal disease, hypothyroidism, bipolar disorder PAST SURGICAL HISTORY: Tonsillectomy, C-sections HOME MEDICATIONS: Amlodipine 10 daily, metoprolol 25 mg twice a day omeprazole 20 mg twice a day vitamin D 2 Plavix 75 mg daily citalopram 10 mg daily Lantus 15 units daily atorvastatin 40 mg daily at bedtime Sevelamer Keppra 500 mg (F 9am/4pm), vimpat 100mg ([facility] 9am/4pm) ALLERGIES: Penicillins SOCIAL HISTORY: Per previous record, patient is a former smoker. Rarely drinks alcohol. Denies any drug use FAMILY HISTORY: Patient status she and her brother were adopted REVIEW OF SYSTEMS: The 14 systems are reviewed and no additional points are identified compared to the review of systems documented history and physical PHYSICAL EXAMINATION: VITAL SIGNS: Temperature 90.9 pulse rate 79 respiratory rate 18 blood pressure 115/65 O2 saturation 97% on nasal cannula 2 L GEN.: NAD, pleasant and cooperative, patient with difficulty with memory. HEENT: NCAT, sclera icterus NECK: Supple SKIN AND EXTREMITIES: Warm to touch, no edema NEURO: MENTAL STATUS: Patient alert and oriented to self, place, time. Unable to name the current president. Speech fluent, able to name and repeat, following all commands with time. CRANIAL NERVES II THROUGH XII: II: Pupils are equal and reactive to light symmetrically. No afferent pupillary defect. Visual reich are intact. III, IV, : No ptosis. Extraocular movements full. No nystagmus. V: Facial sensation intact from V1-3. VII. No clear facial asymmetry. VIII: Hearing intact to finger rub bilaterally. IX, X: Symmetric palate elevation. XII: Shoulder shrug intact. XII: Tongue midline without fasciculation or atrophy. MOTOR: Increased tone in the left upper and left lower extremities. More in the left lower extremity. 5/5 strength in right upper and lower extremities. 4/5 in left upper extremity and 4-/5 in left lower extremity. SENSORY: Intact to light touch, temperature, pinprick in all 4 extremities. Romberg is negative. REFLEXES: 2+ in the right brachii, triceps, patella.. Brisk in left brachii patella. Toes are downgoing. Clonus is present with small section of left ankle. Manuelito's is absent COORDINATION: Finger to nose intact. Difficulty with [id number] due to increased tone in the left lower extremity. No dysmetria. GAIT: Deferred as patient just underwent dialysis. DIAGNOSTIC TESTING: LABORATORY: WBC 7.6 hemoglobin 12.2 platelets 256 sodium 135 potassium 3.9 chloride 97 BUN 24 creatinine 4.21 glucose 192 IMAGING: EEG 08/16/2017: This awake EEG is abnormal due to presence of dysregulation. This is consistent with a reduced seizure threshold. ASSESSMENT: Ms. Gerri Duke is a 49-year-old woman with past medical history of epilepsy s/p VNS, diabetes, hypertension, end-stage renal disease, hypothyroidism, bipolar disorder, presenting with breakthrough seizures. Unclear etiology of seizures at this time. No imaging available at this time with us at [facility]. Patient had a recent stroke for which patient is on Plavix and atorvastatin. Patient's seizure threshold can decrease if patient had a stroke involving the cortex. However it appears that patient has had multiple recurrent seizures even before her recent stroke episode. Patient is also on dialysis. I will continue patient's home dose of antiepileptics at this time. On EMR, patient is on Keppra 500 mg Monday twice a day and Vimpat 100 mg Monday twice a day. Patient reported that there was a change in her seizure medication. Called Calvin Duke at [phone]. Keppra 750mg MWF TID TThursSatSunday BID. Vimpat 100mg MWF TID TThursSatSunday BID. Pt has breakthrough seizures at baseline, dependent on medication compliance as she may sometimes forget to take it but helps the patient. RECOMMENDATIONS: 1. Continue her home meds. Keppra 750mg MWF TID TThursSatSunday BID. Vimpat 100mg MWF TID TThursSatSunday BID. 2. Routine EEG obtained this morning. Do not need to wait for EEG results before discharging patient 3. Patient needs to follow up with her primary neurologist within 2-3 weeks of discharge. 4. Neurology will sign off at this time. Please feel free to contact Neurology again if with additional questions or concerns. Past Medical History Past Medical History: Chest Pain / Angina, Diabetes Mellitus, Hypertension, Renal Disease, Seizure Disorder, Thyroid Disorder Additional Past Medical History / Comment(s): dialysis bipolar History of Any Multi-Drug Resistant Organisms: None Reported Past Surgical History: Section, Tonsillectomy Additional Past Surgical History / Comment(s): fistula Past Anesthesia/Blood Transfusion Reactions: No Reported Reaction Past Psychological History: Bipolar Smoking Status: Former smoker Past Alcohol Use History: Occasional Past Drug Use History: None Reported Medications and Allergies Home Medications Medication Instructions Recorded Confirmed Type Citalopram Hydrobromide [CeleXA] 10 mg PO DAILY 02/12/17 02/26/19 History Clopidogrel [Plavix] 75 mg PO DAILY 02/12/17 02/26/19 History Ergocalciferol (Vitamin D2) 50,000 unit PO ESQUIVEL 02/12/17 02/26/19 History [Vitamin D2] Metoprolol Tartrate 25 mg PO BID 02/12/17 02/26/19 History Omeprazole 20 mg PO BID 02/12/17 02/26/19 History amLODIPine [Norvasc] 10 mg PO DAILY 02/12/17 02/26/19 History Atorvastatin [Lipitor] 40 mg PO HS 08/14/17 02/26/19 History INSULIN LISPRO (humaLOG) [humaLOG] See Protocol SQ ACHS 08/14/17 02/26/19 History Insulin Glargine [Lantus] 15 unit SQ DAILY 08/14/17 02/26/19 History Sevelamer [Renvela] 800 mg PO TID-W/MEALS tab 08/17/17 02/26/19 Rx Albuterol Sulfate [Proair Hfa] 2 puff INHALATION RT-Q4H PRN 11/16/18 02/26/19 History Lacosamide [Vimpat] 100 mg PO DIRECTED 11/16/18 02/26/19 History Ranitidine HCl 150 mg PO BID 11/16/18 02/26/19 History levETIRAcetam [Keppra] 500 mg PO DIRECTED 11/16/18 02/26/19 History Allergies Allergy/AdvReac Type Severity Reaction Status Date / Time Penicillins Allergy Itching Verified 02/26/19 12:30 Physical Examination - Vital Signs Vital Signs: Vital Signs Temp Pulse Pulse Resp BP BP Pulse Ox 02/27/19 07:28 184/87 02/27/19 06:57 98.0 F 99 16 197/102 99 02/26/19 23:00 96.8 F L 78 16 168/84 98 02/26/19 20:34 98.3 F 79 16 169/89 100 02/26/19 17:41 16 02/26/19 15:00 98.5 F 84 16 178/94 100 02/26/19 11:20 98.4 F 87 16 171/73 99 Intake and Output 02/26/19 02/27/19 02/27/19 22:59 06:59 14:59 Intake Total 150 590 222 Balance 150 590 222 Intake: Oral 150 590 222 Other: Voiding Method Toilet # Voids 1 Results - Laboratory Findings CBC and BMP: 02/27/19 12:12 02/27/19 12:12 Abnormal Lab Findings: Abnormal Labs 02/26/19 02/26/19 02/26/19 11:32 15:52 21:15 POC Glucose (mg/dL) 373 H 288 H 244 H 02/27/19 02/27/19 03:57 06:37 POC Glucose (mg/dL) 156 H 198 H
[2019-02-27 16:53] LABS: Glucose,Whole Blood 171 mg/dL (75-99)
--- NOTE | 2019-02-27 18:59 | EEG ---
ELECTROENCEPHALOGRAM REPORT PROCEDURE DATE: February 27, 2019. ELECTROENCEPHALOGRAM (EEG) REPORT: TECHNIQUE: A routine 18 channel EEG was performed with video using the 10/20 international placement system. HISTORY: The patient transferred from [facility] after having a had a 40 second seizure during dialysis. PATIENT'S MEDICAL HISTORY: Includes end-stage renal disease, seizures. CURRENT MEDICATIONS: Protonix, metoprolol, Ativan, Keppra, Vimpat, Renvela. STUDY DURATION: 25 minutes. FINDINGS: BACKGROUND: The background activity consisted of unsustained 7-8 hertz rhythmic waveforms with intermixed delta range slowing. ACTIVATION: Hyperventilation: Not performed. Photic stimulation: No driving seen. Sleep: Drowsy. ABNORMALITIES: 1. Frequent high voltage frontally predominant triphasic waves were seen. 2. Intermixed with the triphasic waves was frequent frontal intermittent rhythmic delta activity (FIRDA). 3. Diffuse 4-6 hertz theta range slowing was seen. IMPRESSION: Abnormal EEG. The triphasic waves mentioned above are not epileptiform in nature. Triphasic waves can be seen in the setting of a metabolic encephalopathy. The frontal intermittent rhythmic delta activity (FIRDA) as well as the diffuse theta range slowing mentioned above is not epileptiform in nature. In combination, these findings indicate moderate diffuse cerebral dysfunction as may be seen in a toxic metabolic encephalopathy. No seizures were recorded. No epileptiform activity was present. MMODL / IJN: [id number] / [facility]
[2019-02-27 20:34] LABS: Glucose,Whole Blood 145 mg/dL (75-99)
[2019-02-27] MEDS: ATORVASTATIN 40 MG TAB PO SCH (20:37)
[2019-02-27] MEDS: FAMOTIDINE 20 MG/2 ML VIAL IV SCH (20:37)
[2019-02-27] MEDS ORDERED: levETIRAcetam 500 MG TAB PO SCH (22:00)
[2019-02-27] MEDS ORDERED: LACOSAMIDE 50 MG TABLET PO SCH (22:00)
[2019-02-28 02:46] LABS: Glucose,Whole Blood 191 mg/dL (75-99)
[2019-02-28 07:03] LABS: Glucose,Whole Blood 202 mg/dL (75-99)
[2019-02-28] MEDS: LACOSAMIDE 50 MG TABLET PO SCH ×2 (08:51→08:54)
[2019-02-28] MEDS: CLOPIDOGREL 75 MG TAB PO SCH (08:52)
[2019-02-28] MEDS: HEPARIN SODIUM,PORCINE 5,000 UNIT/ML 1 ML VIAL SQ SCH (08:52)
[2019-02-28] MEDS: PANTOPRAZOLE 40 MG TABLET PO SCH (08:52)
[2019-02-28] MEDS: FAMOTIDINE 20 MG/2 ML VIAL IV SCH (08:52)
[2019-02-28] MEDS: METOPROLOL TARTRATE 25 MG TAB PO SCH (08:52)
[2019-02-28] MEDS: levETIRAcetam 500 MG TAB PO SCH ×2 (08:52→08:54)
[2019-02-28] MEDS: SEVELAMER 800 MG TAB PO SCH ×2 (08:52→12:35)
[2019-02-28] MEDS: CITALOPRAM HYDROBROMIDE 10 MG TAB PO SCH (08:52)
[2019-02-28] MEDS: amLODIPine 10 MG TAB PO SCH (08:52)
[2019-02-28] MEDS: INSULIN ASPART (NovoLOG) 100 UNIT/ML VIAL SQ SCH ×2 (08:53→12:35)
[2019-02-28] MEDS: INSULIN DETEMIR (LEVEMIR) 100 UNIT/ML SYR SQ SCH (08:53)
--- NOTE | 2019-02-28 12:12 | P.PN ---
Subjective Patient is seen in follow-up for end-stage renal disease. She is maintained on hemodialysis on a Monday schedule. Tolerated hemodialysis well yesterday. No further seizures. No active complaints at this time. Vital signs are stable. General: The patient appeared well nourished and normally developed. HEENT: Head exam is unremarkable. Neck is without jugular venous distension. LUNGS: Lungs are clear to auscultation and percussion. Breath sounds decreased. HEART: Rate and Rhythm are regular. First and second heart sounds normal. No murmurs, rubs or gallops. ABDOMEN: Abdominal exam reveals normal bowel sounds. Non-tender and non- distended. No evidence of peritonitis. EXTREMITITES: No clubbing, cyanosis, or edema. Objective - Vital Signs Vital signs: Vital Signs Temp 98.6 F 02/28/19 07:00 Pulse 80 02/28/19 12:05 Resp 16 02/28/19 07:00 BP 158/94 02/28/19 07:00 Pulse Ox 100 02/28/19 07:00 Intake & Output 02/27/19 02/28/19 02/28/19 18:59 06:59 18:59 Intake Total 624 580 Output Total 1000 Balance -376 580 Intake: Oral 624 580 Output: Hemodialysis 1000 Other: Voiding Method Toilet # Voids 1 1 - Labs CBC & Chem 7: 02/27/19 12:12 02/27/19 12:12 Labs: Abnormal Lab Results - Last 24 Hours (Table) 02/27/19 02/27/19 02/27/19 Range/Units 11:58 12:12 16:42 Sodium 135 L (137-145) mmol/L Chloride 97 L (98-107) mmol/L BUN 24 H (7-17) mg/dL Creatinine 4.21 H (0.52-1.04) mg/dL Glucose 192 H (74-99) mg/dL POC Glucose (mg/dL) 249 H 171 H (75-99) mg/dL 02/27/19 02/28/19 02/28/19 Range/Units 20:20 02:35 06:58 Sodium (137-145) mmol/L Chloride (98-107) mmol/L BUN (7-17) mg/dL Creatinine (0.52-1.04) mg/dL Glucose (74-99) mg/dL POC Glucose (mg/dL) 145 H 191 H 202 H (75-99) mg/dL Assessment and Plan Plan: Assessment: 1. End-stage renal disease maintained on hemodialysis on a Monday schedule. 2. Seizure disorder. Evaluated by neurology. 3. Chronic kidney disease mineral bone disease maintained on Renvela. 4. Insulin-dependent diabetes mellitus. 5. Hyperlipidemia. 6. Hypertension with chronic kidney disease. Currently controlled. Plan: Hemodialysis tomorrow. Maintain current antihypertensives. Stable to be discharged home from nephrology standpoint.
[2019-02-28 12:30] LABS: Glucose,Whole Blood 236 mg/dL (75-99)
[2019-02-28 14:13] VITALS: BP 172/93; PULSE 78; RESP 17; TEMP 98.3
[2019-03-03] MEDS ORDERED: ERGOCALCIFEROL 50,000 UNIT CAP PO SCH (09:00)
== END 2019-02-28 17:19 | disposition home or self-care (01) | DRG 100 ==
LOC: 4SSUR 11:12
PROVIDERS: ADMIT Internal Medicine; ATTEND Internal Medicine
PROC: 5A1D70Z Performance of Urinary Filtration, Intermittent, Less than 6 Hours Per Day (ICD-10-PCS; principal; 2019-02-26)
DX: G40.909 Epilepsy, unspecified, not intractable, without status epilepticus (principal); N18.6 End stage renal disease; I12.0 Hypertensive chronic kidney disease with stage 5 chronic kidney disease or end stage renal disease; I69.354 Hemiplegia and hemiparesis following cerebral infarction affecting left non-dominant side; E03.9 Hypothyroidism, unspecified; E11.22 Type 2 diabetes mellitus with diabetic chronic kidney disease; E78.5 Hyperlipidemia, unspecified; F31.9 Bipolar disorder, unspecified; M89.8X9 Other specified disorders of bone, unspecified site; Z99.3 Dependence on wheelchair; Z79.02 Long term (current) use of antithrombotics/antiplatelets; Z79.4 Long term (current) use of insulin; Z79.899 Other long term (current) drug therapy; Z87.891 Personal history of nicotine dependence; Z99.2 Dependence on renal dialysis; Z88.0 Allergy status to penicillin; Z98.2 Presence of cerebrospinal fluid drainage device
CPT/HCPCS: 80048; 85025; 90935; 94640; 95816

== ENCOUNTER 2019-06-26 20:46 | Observation (INO) | payer MEDICARE, OTHER ==
[2019-06-26 22:48] LABS: Glucose,Whole Blood 127 mg/dL (75-99)
[2019-06-26] MEDS ORDERED: levETIRAcetam 500 MG TAB PO SCH (23:15)
[2019-06-26] MEDS ORDERED: levETIRAcetam 500 MG TAB PO STA (23:36)
[2019-06-27] MEDS ORDERED: LORazepam 2 MG/ML INJ IV ONE (04:50)
[2019-06-27 07:01] LABS: Glucose,Whole Blood 167 mg/dL (75-99)
[2019-06-27] MEDS: INSULIN ASPART (NovoLOG) 100 UNIT/ML VIAL SQ SCH ×4 (08:00→20:37)
[2019-06-27 08:26] LABS: Basophils # (A) 0.1 k/uL (0-0.2); Basophils % (A) 1 %; Eosinophils # (A) 0.1 k/uL (0-0.7); Eosinophils % (A) 1 %; HGB 11.6 gm/dL (11.4-16.0); Lymphocytes # (A) 1.5 k/uL (1.0-4.8); Lymphocytes % (A) 19 %; MCH 29.6 pg (25.0-35.0); MCHC 33.1 g/dL (31.0-37.0); MCV 89.5 fL (80.0-100.0); Mean Platelet Volume 7.7; Monocytes # (A) 0.4 k/uL (0-1.0); Monocytes % (A) 5 %; Neutrophils # (A) 5.6 k/uL (1.3-7.7); Neutrophils % (A) 73 %; Platelet Count 268 k/uL (150-450); RBC 3.91 m/uL (3.80-5.40); RDW 14.3 % (11.5-15.5); WBC 7.6 k/uL (3.8-10.6)
[2019-06-27 08:47] LABS: Calcium 8.7 mg/dL (8.4-10.2); Potassium 4.6 mmol/L (3.5-5.1)
[2019-06-27] MEDS ORDERED: levETIRAcetam 500 MG TAB PO SCH (09:00)
--- NOTE | 2019-06-27 11:16 | P.NPCON ---
History of Present Illness - Reason for Consult end stage renal disease - History of Present Illness Reason for consultation: End-stage renal disease History of present illness: Patient is a 49-year-old female seen in renal consultation for end-stage renal disease. She is maintained on hemodialysis on Monday schedule. Patient went to hemodialysis yesterday and had a grand mal seizure within 10 minutes of the treatment. Patient was sent to the ER and subsequently discharged. Patient resumed outpatient hemodialysis and in about 1 hour had another episode of seizure. She was subsequently again sent to the hospital and is now admitted. Patient had seizure early this morning as well. Currently the patient is resting in bed. She is awake and alert. Denies chest pain or shortn ess of breath. No fever or chills. No vomiting or diarrhea. Patient has history of seizures and states she has been compliant with her medications. Hemodynamically stable. No edema. Vital signs are stable. General: The patient appeared well nourished and normally developed. HEENT: Head exam is unremarkable. Neck is without jugular venous distension. LUNGS: Lungs are clear to auscultation and percussion. Breath sounds decreased. HEART: Rate and Rhythm are regular. First and second heart sounds normal. No murmurs, rubs or gallops. ABDOMEN: Abdominal exam reveals normal bowel sounds. Non-tender and non- distended. No evidence of peritonitis. EXTREMITITES: No clubbing, cyanosis, or edema. Past Medical History Past Medical History: Chest Pain / Angina, Diabetes Mellitus, Hypertension, Renal Disease, Seizure Disorder, Thyroid Disorder Additional Past Medical History / Comment(s): dialysis bipolar. Neuropathy History of Any Multi-Drug Resistant Organisms: None Reported Past Surgical History: Section, Tonsillectomy Additional Past Surgical History / Comment(s): fistula Past Anesthesia/Blood Transfusion Reactions: No Reported Reaction Past Psychological History: Bipolar Smoking Status: Former smoker Past Alcohol Use History: Occasional Past Drug Use History: None Reported - Past Family History Father Family Medical History: Unable to Obtain Medications and Allergies Home Medications Medication Instructions Recorded Confirmed Type Citalopram Hydrobromide [CeleXA] 10 mg PO DAILY 02/12/17 06/27/19 History Clopidogrel [Plavix] 75 mg PO DAILY 02/12/17 06/27/19 History Ergocalciferol (Vitamin D2) 50,000 unit PO ESQUIVEL 02/12/17 06/27/19 History [Vitamin D2] Omeprazole 20 mg PO BID 02/12/17 06/27/19 History amLODIPine [Norvasc] 10 mg PO DAILY 02/12/17 06/27/19 History Atorvastatin [Lipitor] 40 mg PO HS 08/14/17 06/27/19 History INSULIN LISPRO (humaLOG) [humaLOG] See Protocol SQ AC-TID 08/14/17 06/27/19 History Insulin Glargine [Lantus] 15 unit SQ DAILY 08/14/17 06/27/19 History Albuterol Sulfate [Proair Hfa] 2 puff INHALATION RT-Q4H PRN 11/16/18 06/27/19 History Lacosamide [Vimpat] 100 mg PO BID 11/16/18 06/27/19 History Ranitidine HCl 150 mg PO BID 11/16/18 06/27/19 History Metoprolol Tartrate [Lopressor] 25 mg PO TID #90 tab 02/28/19 06/27/19 Rx levETIRAcetam [Keppra] 750 mg PO BID 06/27/19 06/27/19 History Allergies Allergy/AdvReac Type Severity Reaction Status Date / Time Penicillins Allergy Itching Verified 02/26/19 12:30 Physical Exam Vitals: Vital Signs Temp Pulse Resp BP Pulse Ox 06/27/19 07:20 98.1 F 95 16 139/83 96 06/27/19 05:58 99 96 06/27/19 05:40 99 14 97 06/27/19 05:30 98.3 F 100 14 138/82 93 L 06/27/19 04:35 98.0 F 87 18 149/81 98 06/26/19 23:30 18 06/26/19 23:20 155/95 06/26/19 22:20 98.2 F 90 16 170/84 100 Intake and Output 06/26/19 06/27/19 06/27/19 22:59 06:59 14:59 Intake Total 150 Balance 150 Intake: Oral 150 Other: Voiding Method Bedpan Diaper # Voids 1 Weight 88 kg Results - Lab Results Most recent lab results Calcium 8.7 mg/dL (8.4-10.2) 06/27/19 07:35 06/27/19 07:35 06/27/19 07:35 Assessment and Plan Plan: Assessment: 1. End-stage renal disease maintained on hemodialysis on Monday schedule. 2. Seizure disorder. 3. Hypertension with chronic kidney disease. Controlled. 4. Insulin-dependent diabetes mellitus. 5. Chronic kidney disease mineral bone disease. Plan: 2 hour hemodialysis treatment today. Full treatment tomorrow per her outpatient schedule. Neurology recommendations pending. Seizure precautions. Thank you for the consultation. I will continue to follow the patient with you during her hospital stay.
--- NOTE | 2019-06-27 11:35 | P.HPIM ---
History of Present Illness 49-year-old female was in transferred from [place] on emergency room a direct admit to [facility]. Patient had seizures 2 during dialysis. Patient has a history of seizure disorder renal failure on dialysis stage V diabetes type 2 with A1c of 10 hypertension history of CVA and lites of walker. CT the brain was negative at [facility]. Patient was evaluated by nephrology and dialysis orders provided. Patient needs to see neurologist Review of Systems Constitutional: Reports weakness Neurological: Reports seizures, Reports weakness Past Medical History Past Medical History: Chest Pain / Angina, Diabetes Mellitus, Hypertension, Renal Disease, Seizure Disorder, Thyroid Disorder Additional Past Medical History / Comment(s): dialysis bipolar. Neuropathy History of Any Multi-Drug Resistant Organisms: None Reported Past Surgical History: Section, Tonsillectomy Additional Past Surgical History / Comment(s): fistula Past Anesthesia/Blood Transfusion Reactions: No Reported Reaction Past Psychological History: Bipolar Smoking Status: Former smoker Past Alcohol Use History: Occasional Past Drug Use History: None Reported - Past Family History Father Family Medical History: Unable to Obtain Medications and Allergies Home Medications Medication Instructions Recorded Confirmed Type Citalopram Hydrobromide [CeleXA] 10 mg PO DAILY 02/12/17 06/27/19 History Clopidogrel [Plavix] 75 mg PO DAILY 02/12/17 06/27/19 History Ergocalciferol (Vitamin D2) 50,000 unit PO ESQUIVEL 02/12/17 06/27/19 History [Vitamin D2] Omeprazole 20 mg PO BID 02/12/17 06/27/19 History amLODIPine [Norvasc] 10 mg PO DAILY 02/12/17 06/27/19 History Atorvastatin [Lipitor] 40 mg PO HS 08/14/17 06/27/19 History INSULIN LISPRO (humaLOG) [humaLOG] See Protocol SQ AC-TID 08/14/17 06/27/19 History Insulin Glargine [Lantus] 15 unit SQ DAILY 08/14/17 06/27/19 History Albuterol Sulfate [Proair Hfa] 2 puff INHALATION RT-Q4H PRN 11/16/18 06/27/19 History Lacosamide [Vimpat] 100 mg PO BID 11/16/18 06/27/19 History Ranitidine HCl 150 mg PO BID 11/16/18 06/27/19 History Metoprolol Tartrate [Lopressor] 25 mg PO TID #90 tab 02/28/19 06/27/19 Rx levETIRAcetam [Keppra] 750 mg PO BID 06/27/19 06/27/19 History Allergies Allergy/AdvReac Type Severity Reaction Status Date / Time Penicillins Allergy Itching Verified 02/26/19 12:30 Physical Exam Vitals: Vital Signs Temp Pulse Resp BP Pulse Ox 06/27/19 07:20 98.1 F 95 16 139/83 96 06/27/19 05:58 99 96 06/27/19 05:40 99 14 97 06/27/19 05:30 98.3 F 100 14 138/82 93 L 06/27/19 04:35 98.0 F 87 18 149/81 98 06/26/19 23:30 18 06/26/19 23:20 155/95 06/26/19 22:20 98.2 F 90 16 170/84 100 Intake and Output 06/26/19 06/27/19 06/27/19 22:59 06:59 14:59 Intake Total 150 Output Total 100 Balance 150 -100 Intake: Oral 150 Output: Urine 100 Other: Voiding Method Bedpan Diaper # Voids 1 1 Weight 88 kg - Constitutional General appearance: mild distress - EENT Eyes: PERRLA Ears: bilateral: normal - Neck Neck: normal ROM - Respiratory Respiratory: bilateral: CTA - Cardiovascular Rhythm: regular - Gastrointestinal General gastrointestinal: soft - Integumentary Facial hair Integumentary: normal - Neurologic Neurologic: CNII-XII intact - Musculoskeletal Musculoskeletal: generalized weakness - Psychiatric Psychiatric: A&O x's 3, appropriate affect, intact judgment & insight Results CBC & Chem 7: 06/27/19 07:35 06/27/19 07:35 Labs: Abnormal Lab Results - Last 24 Hours (Table) 06/26/19 06/27/19 06/27/19 Range/Units 22:46 06:59 07:35 Sodium 136 L (137-145) mmol/L Chloride 97 L (98-107) mmol/L BUN 43 H (7-17) mg/dL Creatinine 8.11 H* (0.52-1.04) mg/dL Glucose 185 H (74-99) mg/dL POC Glucose (mg/dL) 127 H 167 H (75-99) mg/dL CT Scan - head: report reviewed Assessment and Plan Plan: Assessment Seizure activity 2 history of seizure disorder Stage V renal failure on dialysis Diabetes type 2 A1c 10 Hypertension History of CVA Hypothyroidism Bipolar Plan Continued consultation with nephrology for dialysis Needs neurology assessment for seizures
[2019-06-27 11:47] LABS: Glucose,Whole Blood 290 mg/dL (75-99)
--- NOTE | 2019-06-27 12:37 | P.CNNES ---
History of Present Illness Consult date: 06/27/19 Reason for Consult: Seizure Chief complaint: Seizure History of Present Illness: HISTORY OF PRESENT ILLNESS: Thank you for allowing me to evaluate Ms. Gerri Duke. Ms. Gerri Duke is a 49-year-old woman with past medical history of epilepsy s/p VNS (placed early this year), diabetes, hypertension, end-stage renal disease, hypothyroidism, bipolar disorder, presenting with breakthrough seizures. Spoke to Calvin Duke. Patient follows with Dr. Huff, last appointment was in 05/2019. states that patient is still having breakthrough seizures, cannot remember exactly how many he's had since her last admission in 02/2019. Denies any recent sickness. From Neuro Consult note on 02/27/19: Ms. Gerri Duke is a 49-year-old woman with past medical history of epilepsy s/p VNS (placed early this year), diabetes, hypertension, end-stage renal disease, hypothyroidism, bipolar disorder, presenting with breakthrough seizures. No family is at bedside at this time. Patient is a poor historian as patient also has a history of poor memory. She states that she had a seizure when she was in the clinic yesterday. Patient reports urinary incontinence and tongue biting d uring seizures. Denies any bowel incontinence. Patient states that she has seizures since she was a child. Her mother kept the etiology of seizures hidden from the patient. Of note patient is adopted and does not know much of family or history. Patient states that she saw her primary neurologist just about a week ago, and dose for one of her medications was increased from 750 mg twice a day to 1000 mg twice a day. Patient has had any further seizures since admission. Patient underwent her dialysis this morning. Patient states that she actually had a stroke that caused weakness and numbness and tingling in her left upper and lower extremities about a month ago. Patient was admitted at [facility]. Otherwise patient denies any recent sickness, fever, nausea, vomiting, worsening weakness, numbness or tingling. Also denies diarrhea or constipation. Spoke to her , Calvin. States that her neurologist did not change her medication dose but changed the setting of VNS. PAST MEDICAL HISTORY: epilepsy, diabetes, hypertension, end-stage renal disease, hypothyroidism, bipolar disorder PAST SURGICAL HISTORY: Tonsillectomy, C-sections HOME MEDICATIONS: Amlodipine 10 daily, metoprolol 25 mg twice a day omeprazole 20 mg twice a day vitamin D 2 Plavix 75 mg daily citalopram 10 mg daily Lantus 15 units daily atorvastatin 40 mg daily at bedtime Sevelamer Keppra 500 mg (MWF 9am/4pm), vim pat 100mg (MW 9am/4pm) ALLERGIES: Penicillins SOCIAL HISTORY: Per previous record, patient is a former smoker. Rarely drinks alcohol. Denies any drug use FAMILY HISTORY: Patient status she and her brother were adopted REVIEW OF SYSTEMS: The 14 systems are reviewed and no additional points are identified compared to the review of systems documented history and physical PHYSICAL EXAMINATION: VITAL SIGNS: T 98.1 HR 95 RR 16 BP 139/83 O2 sat 96% on 2L of O2 via NC GEN.: NAD, pleasant and cooperative, patient with difficulty with memory. HEENT: NCAT, sclera icterus NECK: Supple SKIN AND EXTREMITIES: Warm to touch, no edema NEURO: MENTAL STATUS: Patient alert and oriented to self, place, time. Unable to name the current president. Speech fluent, able to name and repeat, following all commands with time. CRANIAL NERVES II THROUGH XII: II: Pupils are equal and reactive to light symmetrically. No afferent pupillary defect. Visual reich are intact. III, IV, : No ptosis. Extraocular movements full. No nystagmus. V: Facial sensation intact from V1-3. VII. No clear facial asymmetry. VIII: Hearing intact to finger rub bilaterally. IX, X: Symmetric palate elevation. XII: Shoulder shrug intact. XII: Tongue midline without fasciculation or atrophy. MOTOR: Increased tone in the left upper and left lower extremities. More in the left lower extremity. 5/5 strength in right upper and lower extremities. 4/5 in left upper extremity and 4-/5 in left lower extremity. SENSORY: Intact to light touch, temperature, pinprick in all 4 extremities. Romberg is negative. REFLEXES: 2+ in the right brachii, triceps, patella.. Brisk in left brachii p atella. Toes are downgoing. Clonus is present with small section of left ankle. Manuelito's is absent COORDINATION: Finger to nose intact. Difficulty with [id number] due to increased tone in the left lower extremity. No dysmetria. GAIT: Deferred as patient just underwent dialysis. DIAGNOSTIC TESTING: LABORATORY: WBC 7.6 hemoglobin 11.6 platelet 268 sodium 136 potassium 4.6 chloride 97 bicarb 23 BUN 43 creatinine 8.11 glucose 185 calcium 8.7 IMAGING: EEG 08/16/2017: This awake EEG is abnormal due to presence of dysregulation. This is consistent with a reduced seizure threshold. ASSESSMENT: Ms. Gerri Duke is a 49-year-old woman with past medical history of epilepsy s/p VNS, diabetes, hypertension, end-stage renal disease, hypothyroidism, bipolar disorder, presenting with breakthrough seizures. Unclear etiology of seizures at this time. No imaging available at this time with us at [facility]. Patient had a recent stroke for which patient is on Plavix and atorvastatin. Patient's seizure threshold can decrease if patient had a stroke involving the cortex. However it appears that patient has had multiple recurrent seizures even before her recent stroke episode. Patient is also on dialysis. I will continue patient's home dose of antiepileptics at this time. On EMR, patient is on Keppra 500 mg Monday twice a day and Vimpat 100 mg Monday twice a day. No changes have been made to her meds. Patient still taking Keppra 500mg dosing as above. Called Calvin Duke at [phone]. Will increase AED dose of Keppra only: Keppra 750mg MWF TID (days of dialysis) TThursSatSunday BID. Continue Vimpat 100mg MWF TID TThursSatSunday BID. Pt has breakthrough seizures at baseline, dependent on medication compliance as she may sometimes forget to take it but helps the patient. RECOMMENDATIONS: 1. Continue her home meds. Keppra 750mg MWF TID TThursSatSunday BID. Vimpat 100mg MWF TID TThursSatSunday BID. 2. Patient needs to follow up with her primary neurologist within 2-3 weeks of discharge. 3. Neurology will sign off at this time. Please feel free to contact Neurology again if with additional questions or concerns. Past Medical History Past Medical History: Chest Pain / Angina, Diabetes Mellitus, Hypertension, Renal Disease, Seizure Disorder, Thyroid Disorder Additional Past Medical History / Comment(s): dialysis bipolar. Neuropathy History of Any Multi-Drug Resistant Organisms: None Reported Past Surgical History: Section, Tonsillectomy Additional Past Surgical History / Comment(s): fistula Past Anesthesia/Blood Transfusion Reactions: No Reported Reaction Past Psychological History: Bipolar Smoking Status: Former smoker Past Alcohol Use History: Occasional Past Drug Use History: None Reported - Past Family History Father Family Medical History: Unable to Obtain Medications and Allergies Home Medications Medication Instructions Recorded Confirmed Type Citalopram Hydrobromide [CeleXA] 10 mg PO DAILY 02/12/17 06/27/19 History Clopidogrel [Plavix] 75 mg PO DAILY 02/12/17 06/27/19 History Ergocalciferol (Vitamin D2) 50,000 unit PO ESQUIVEL 02/12/17 06/27/19 History [Vitamin D2] Omeprazole 20 mg PO BID 02/12/17 06/27/19 History amLODIPine [Norvasc] 10 mg PO DAILY 02/12/17 06/27/19 History Atorvastatin [Lipitor] 40 mg PO HS 08/14/17 06/27/19 History INSULIN LISPRO (humaLOG) [humaLOG] See Protocol SQ AC-TID 08/14/17 06/27/19 History Insulin Glargine [Lantus] 15 unit SQ HS 08/14/17 06/27/19 History Albuterol Sulfate [Proair Hfa] 2 puff INHALATION RT-Q4H PRN 11/16/18 06/27/19 History Lacosamide [Vimpat] 100 mg PO BID 11/16/18 06/27/19 History Ranitidine HCl 150 mg PO BID 11/16/18 06/27/19 History Metoprolol Tartrate [Lopressor] 25 mg PO TID #90 tab 02/28/19 06/27/19 Rx Lacosamide [Vimpat] 100 mg PO BID 06/27/19 06/27/19 History levETIRAcetam [Keppra] 750 mg PO BID 06/27/19 06/27/19 History Allergies Allergy/AdvReac Type Severity Reaction Status Date / Time Penicillins Allergy Itching Verified 02/26/19 12:30 Physical Examination - Vital Signs Vital Signs: Vital Signs Temp Pulse Resp BP Pulse Ox 06/27/19 07:20 98.1 F 95 16 139/83 96 06/27/19 05:58 99 96 06/27/19 05:40 99 14 97 06/27/19 05:30 98.3 F 100 14 138/82 93 L 06/27/19 04:35 98.0 F 87 18 149/81 98 06/26/19 23:30 18 06/26/19 23:20 155/95 06/26/19 22:20 98.2 F 90 16 170/84 100 Intake and Output 06/26/19 06/27/19 06/27/19 22:59 06:59 14:59 Intake Total 150 Balance 150 Intake: Oral 150 Other: # Voids 1 Weight 88 kg Results - Laboratory Findings CBC and BMP: 06/27/19 07:35 06/27/19 07:35 Abnormal Lab Findings: Abnormal Labs 06/26/19 06/27/19 06/27/19 22:46 06:59 07:35 Sodium 136 L Chloride 97 L BUN 43 H Creatinine 8.11 H* Glucose 185 H POC Glucose (mg/dL) 127 H 167 H
[2019-06-27] MEDS: METOPROLOL TARTRATE 25 MG TAB PO SCH ×2 (16:12→20:38)
[2019-06-27 16:27] LABS: Glucose,Whole Blood 111 mg/dL (75-99)
[2019-06-27 20:23] LABS: Glucose,Whole Blood 224 mg/dL (75-99)
[2019-06-27] MEDS: LACOSAMIDE 50 MG TABLET PO SCH (20:38)
[2019-06-27] MEDS: FAMOTIDINE 20 MG TAB PO SCH (20:38)
[2019-06-27] MEDS ORDERED: ATORVASTATIN 40 MG TAB PO SCH (21:00)
[2019-06-28 06:56] LABS: Glucose,Whole Blood 262 mg/dL (75-99)
[2019-06-28] MEDS ORDERED: INSULIN DETEMIR (LEVEMIR) 100 UNIT/ML SYR SQ SCH (07:00)
[2019-06-28] MEDS: METOPROLOL TARTRATE 25 MG TAB PO SCH (08:30)
[2019-06-28] MEDS: LACOSAMIDE 50 MG TABLET PO SCH (08:30)
[2019-06-28] MEDS: INSULIN ASPART (NovoLOG) 100 UNIT/ML VIAL SQ SCH ×2 (08:30→11:58)
[2019-06-28] MEDS: FAMOTIDINE 20 MG TAB PO SCH (08:30)
[2019-06-28] MEDS ORDERED: CLOPIDOGREL 75 MG TAB PO SCH (09:00)
[2019-06-28] MEDS ORDERED: CITALOPRAM HYDROBROMIDE 10 MG TAB PO SCH (09:00)
[2019-06-28] MEDS ORDERED: amLODIPine 10 MG TAB PO SCH (09:00)
[2019-06-28 11:37] LABS: Glucose,Whole Blood 134 mg/dL (75-99)
[2019-06-28] MEDS ORDERED: levETIRAcetam 500 MG TAB PO SCH (12:00)
[2019-06-28 15:44] VITALS: BP 122/72; PULSE 78; RESP 18; TEMP 98
--- NOTE | 2019-06-28 16:48 | PN ---
PROGRESS NOTE Patient is seen for followup for end-stage renal disease. She is maintained on a Monday, Monday, Monday schedule. Patient was admitted to the hospital with a grand mal seizure within 10 minutes into dialysis treatment. She has not had any further seizures. She has been evaluated by Neurology. She is due for hemodialysis today, after which there are plans for discharge. PHYSICAL EXAMINATION: On examination, blood pressure is 118/80, heart rate 74 per minute. Patient is afebrile. EXAMINATION OF THE HEART: S1 and S2. EXAMINATION OF LUNGS: Decreased breath sounds at bases. ABDOMEN: Soft, non-tender. Examination of lower extremities shows no significant edema. TUG [employer]AT CAPTAIN exam is grossly intact. LABS: Potassium 4.6 yesterday. Hemoglobin 11.6 on 06/27/2019. ASSESSMENT: 1. End-stage renal disease, on hemodialysis on a Monday, Monday, Monday schedule. Scheduled for hemodialysis today. 2. Seizures with breakthrough seizure, status post evaluation by Neurology. 3. Type 2 diabetes, insulin-dependent. 4. Chronic kidney disease mineral bone disorder. PLAN: Patient can be discharged from nephrology standpoint after hemodialysis today. Continue with neurology recommendations as for antiseizure medications. MMODL / IJN: [id number] /
--- NOTE | 2019-06-28 22:58 | DS ---
DISCHARGE SUMMARY . FINAL DIAGNOSES: 1. Seizure disorder and as well as breakthrough seizures. 2. Stage 5 renal failure on hemodialysis. 3. Diabetes mellitus type 2. A1c 10 uncontrolled with hyperglycemia. 4. Hypertension. 5. History of cerebrovascular accident. 6. Hypothyroidism. 7. Bipolar. DISCHARGE DISPOSITION: The patient is being discharged in stable condition with guarded prognosis. Total time taken 35 minutes. HISTORY OF PRESENT ILLNESS: This 49-year-old woman with a past medical history of multiple medical problems was admitted with seizure disorder and breakthrough seizures. Neurology saw the patient. Medications adjusted. Patient improved significantly. Nephrology also saw the patient. The patient will be discharged in stable condition with guarded prognosis. On exam, vitals are stable. Cardiovascular: S1, S2. Abdomen soft. Nervous system: No focal deficits. Total time taken 35 minutes. DISCHARGE ADVICE AND MEDICATIONS: 1. Diet is cardiac diet. 2. Activity limited until followup. 3. Continue the hemodialysis. 4. Follow with Dr. Geoffrey Somers 2-3 days. 5. Follow with Neurology as recommended. DISCHARGE MEDICATIONS: 1. Celexa 10 mg p.o. daily. 2. Lispro a.c. t.i.d. 3. Keppra 750 p.o. b.i.d. 4. Lantus 50 units subcu q.h.s. 5. Lipitor 40 mg q.h.s. 6. Norvasc 10 mg p.o. daily. 7. Omeprazole 20 mg b.i.d. 8. Plavix 75 mg p.o. daily. 9. ProAir HFA 2 puffs q.4 p.r.n. 10.Ranitidine 150 mg p.o. b.i.d. 11.Vimpat 100 mg p.o. b.i.d. 12.Vitamin D2 50,000 p.o. Monday. 13.Keppra 750 p.o. b.i.d. 14.Lopressor 25 mg p.o. t.i.d. MMODL / IJN: [id number] /
[2019-06-29] MEDS ORDERED: FAMOTIDINE 20 MG TAB PO SCH (09:00)
[2019-06-30] MEDS ORDERED: ERGOCALCIFEROL 50,000 UNIT CAP PO SCH (09:00)
--- NOTE | 2019-08-09 11:39 | CDI ---
Date: 08.09.18 CDS/Financial Service Representative Name: Lani Kennedy Phone: If any questions, call Rosanna Holt Drilling Assistant at [phone] Patient Name: Gerri Duke Admit Date: 06.26.19 Discharge Date: 06.28.19 ATTENTION: The [facility] Coding Staff appreciate your assistance in clarifying documentation. Please respond to the clarification below the line at the bottom and electronically sign. The [facility] Coding staff will review the response and follow-up if needed. Please note: Queries are made part of the Legal Health Record. If you have any questions, please contact the Drilling Assistant. Dear Dr. Mohan In the Discharge summary and H&P it is documented that the patient has stage 5 CKD, but in both the consults it is documented ESRD. Please specify which stage of CKD. Thank you for your kind consideration. ESRD. MTDD
== END 2019-06-28 16:16 | disposition home or self-care (01) ==
LOC: INTOOBSV 21:42 → 4SSUR 21:42
PROVIDERS: ADMIT Family Medicine; ATTEND Family Medicine
DX: G40.909 Epilepsy, unspecified, not intractable, without status epilepticus (principal); I12.0 Hypertensive chronic kidney disease with stage 5 chronic kidney disease or end stage renal disease; E11.22 Type 2 diabetes mellitus with diabetic chronic kidney disease; N18.6 End stage renal disease; E11.65 Type 2 diabetes mellitus with hyperglycemia; E03.9 Hypothyroidism, unspecified; F31.9 Bipolar disorder, unspecified; E11.40 Type 2 diabetes mellitus with diabetic neuropathy, unspecified; E83.89 Other disorders of mineral metabolism; M89.8X9 Other specified disorders of bone, unspecified site; Z99.2 Dependence on renal dialysis; Z86.73 Personal history of transient ischemic attack (TIA), and cerebral infarction without residual deficits; Z98.890 Other specified postprocedural states; Z90.89 Acquired absence of other organs; Z87.891 Personal history of nicotine dependence; Z79.899 Other long term (current) drug therapy; Z79.02 Long term (current) use of antithrombotics/antiplatelets; Z79.4 Long term (current) use of insulin; Z88.0 Allergy status to penicillin; Z96.82 Presence of neurostimulator; Z49.31 Encounter for adequacy testing for hemodialysis
CPT/HCPCS: 36410; 76937; 80048; 80177; 85025; G0257 ×2; G0378 ×2; 90935

== ENCOUNTER 2019-11-10 22:48 | Inpatient (IN) | payer MEDICARE, OTHER ==
[2019-11-10] MEDS ORDERED: ACETAMINOPHEN TAB 325 MG TAB PO PRN (23:34)
[2019-11-10] MEDS ORDERED: NALOXONE 0.4 MG/ML 1 ML VIAL IV PRN (23:34)
[2019-11-10] MEDS ORDERED: ONDANSETRON 4 MG/2 ML VIAL IVP PRN (23:34)
--- NOTE | 2019-11-10 23:40 | ED ---
Seizure HPI - General Source: patient, EMS Mode of arrival: EMS Limitations: altered mental status <Leigh Berg - Last Filed: 11/10/19 23:43> <Jacinta Berry - Last Filed: 11/11/19 23:26> - General Chief Complaint: Seizure Stated Complaint: Seizure Time Seen by Provider: 11/10/19 23:11 - History of Present Illness Initial Comments: 49-year-old female patient with past medical history significant for seizure disorder, end-stage renal disease with dialysis, and CVA presents to the emergency department today as a transfer from [facility]. Patient had a seizure earlier in the day and had a prolonged postictal state. States that she was at her emergency department for around 5 hours and was not improving so they sent her here for further evaluation by neurology. Upon arrival here patient states she is feeling better. She does have difficulty with speech but states this is residual from her stroke. She denies any headache, blurred vision, double vision, nausea, or vomiting. She denies any chest pain or shortness of breath. Denies numbness or tingling to her extremities. Patient denies any recent rash, fever, chills, cough, abdominal pain, diarrhea, constipation, back pain, dizziness, weakness, hematuria, dysuria, urinary urgency, urinary frequency, or any other complaints. (Leigh Berg) - Related Data Home Medications Medication Instructions Recorded Confirmed Clopidogrel [Plavix] 75 mg PO DAILY 02/12/17 11/11/19 Ergocalciferol (Vitamin D2) 50,000 unit PO Q7D 02/12/17 11/11/19 [Vitamin D2] Lacosamide [Vimpat] 100 mg PO BID 06/27/19 11/11/19 Calcium Acetate 2,001 mg PO TID 11/11/19 11/11/19 Previous Rx's Medication Instructions Recorded Metoprolol Tartrate [Lopressor] 25 mg PO TID #90 tab 02/28/19 levETIRAcetam [Keppra] 750 mg PO BID #60 tab 06/28/19 Allergies Allergy/AdvReac Type Severity Reaction Status Date / Time Penicillins Allergy Itching Verified 11/11/19 09:34 Review of Systems ROS Other: All systems not noted in ROS Statement are negative. <Leigh Berg - Last Filed: 11/10/19 23:43> ROS Other: All systems not noted in ROS Statement are negative. <Jacinta Berry Hilton - Last Filed: 11/11/19 23:26> ROS Statement: Those systems with pertinent positive or pertinent negative responses have been documented in the HPI. Past Medical History Past Medical History: Chest Pain / Angina, Diabetes Mellitus, Hypertension, Renal Disease, Seizure Disorder, Thyroid Disorder Additional Past Medical History / Comment(s): dialysis bipolar. Neuropathy History of Any Multi-Drug Resistant Organisms: None Reported Past Surgical History: Section, Tonsillectomy Additional Past Surgical History / Comment(s): fistula Past Anesthesia/Blood Transfusion Reactions: No Reported Reaction Past Psychological History: Bipolar Smoking Status: Former smoker Past Alcohol Use History: Occasional Past Drug Use History: None Reported - Past Family History Father Family Medical History: Unable to Obtain <Leigh Berg - Last Filed: 11/10/19 23:43> General Exam Limitations: altered mental status General appearance: alert, in no apparent distress, other (This is a well-devel oped, well-nourished adult female patient in no acute distress. Vital signs upon presentation are temperature 98.4F, pulse 91, respirations 16, blood pressure 166/99, pulse ox 97% on room air.) Eye exam: Present: normal appearance, PERRL, EOMI. Absent: scleral icterus, co njunctival injection, periorbital swelling ENT exam: Present: normal exam, normal oropharynx, mucous membranes moist Respiratory exam: Present: normal lung sounds bilaterally. Absent: respiratory distress, wheezes, rales, rhonchi, stridor Cardiovascular Exam: Present: regular rate, normal rhythm, normal heart sounds. Absent: systolic murmur, diastolic murmur, rubs, gallop, clicks GI/Abdominal exam: Present: soft, normal bowel sounds. Absent: distended, tenderness, guarding, rebound, rigid Neurological exam: Present: alert, oriented X3, CN II-XII intact Psychiatric exam: Present: normal affect, normal mood Skin exam: Present: warm, dry, intact, normal color. Absent: rash <Leigh Berg - Last Filed: 11/10/19 23:43> Course Vital Signs 11/10/19 11/11/19 11/11/19 22:50 00:00 00:22 Temperature 98.4 F 98.5 F Pulse Rate 91 86 85 Respiratory 16 16 16 Rate Blood Pressure 166/99 141/78 156/96 O2 Sat by Pulse 97 Oximetry Medical Decision Making <Leigh Berg - Last Filed: 11/10/19 23:43> - Lab Data Result diagrams: 11/11/19 05:45 11/11/19 05:45 <Jacinta Berry - Last Filed: 11/11/19 23:26> - Medical Decision Making 49-year-old female patient presents to the emergency department today as a transfer from [facility] for neurology consultation. Patient had a seizure today and had a prolonged postictal state so they sent her here for further evaluation. Physical exam here was relatively unremarkable. She does have difficulty with speech but states this is residual from her previous stroke. I did review patient's lab work from [facility], troponin negative, magnesium 2.27, BUN is 35, creatinine 8.3 glucose elevated at 173, white blood cells are 9.4. She did have a CT of the head without contrast which showed mild cerebral atrophy no mass effect or midline shift no sign of intracranial hemorrhage. The calvarium is intact. There is a 1 cm irregular area of hypodensity in the anterior medial left thumb is consistent with old lacunar infarct. Chest x-ray showed no acute lung disease. She'll be admitted to the hospital for further evaluation by neurology. Nephrology has been consulted for dialysis. Patient is in agreement with this plan. (Leigh Berg) I was available for consultation in the emergency department. The history and physical exam were done by the midlevel provider. I was consulted for this patients care. I reviewed the case with the midlevel provider and based on their presentation of the patient, I agree with the assessment, medical decision making and plan of care as documented. Chart was dictated using [employer] dictation software. Attempts were made to correct any dictation errors however some typographical errors may persist. Patient was seen during a national state of emergency due to the Covid-19 pandemic. (Jacinta Berry) Disposition Decision to Admit Reason: Admit from EC Decision Date: 11/10/19 Decision Time: 23:48 <Leigh Berg - Last Filed: 11/10/19 23:43> <Jacinta Berry - Last Filed: 11/11/19 23:26> Clinical Impression: Seizure Disposition: ADMITTED IP TO THIS HOSP Condition: Serious
[2019-11-11] MEDS ORDERED: LORazepam 2 MG/ML INJ IV PRN (00:32)
[2019-11-11] MEDS ORDERED: ALBUTEROL NEBULIZED 2.5 MG/3 ML INHALATION PRN (06:03)
[2019-11-11 06:13] LABS: Basophils # (A) 0.1 k/uL (0-0.2); Basophils % (A) 1 %; Eosinophils # (A) 0.1 k/uL (0-0.7); Eosinophils % (A) 1 %; HCT 29.4 % (34.0-46.0); HGB 9.9 gm/dL (11.4-16.0); Lymphocytes # (A) 2.2 k/uL (1.0-4.8); Lymphocytes % (A) 30 %; MCH 29.7 pg (25.0-35.0); MCHC 33.6 g/dL (31.0-37.0); MCV 88.5 fL (80.0-100.0); Mean Platelet Volume 8.8; Monocytes # (A) 0.4 k/uL (0-1.0); Monocytes % (A) 5 %; Neutrophils # (A) 4.5 k/uL (1.3-7.7); Neutrophils % (A) 61 %; Platelet Count 258 k/uL (150-450); RBC 3.32 m/uL (3.80-5.40); RDW 13.5 % (11.5-15.5); WBC 7.4 k/uL (3.8-10.6)
[2019-11-11] MEDS: METOPROLOL TARTRATE 25 MG TAB PO SCH ×3 (06:23→21:16)
[2019-11-11] MEDS: amLODIPine 10 MG TAB PO SCH (06:23)
[2019-11-11 06:29] LABS: Albumin 3.4 g/dL (3.5-5.0); Calcium 8.5 mg/dL (8.4-10.2); Potassium 3.2 mmol/L (3.5-5.1); Total Bilirubin 0.4 mg/dL (0.2-1.3); Total Protein 6.2 g/dL (6.3-8.2)
[2019-11-11 06:59] LABS: Glucose,Whole Blood 63 mg/dL (75-99)
[2019-11-11 07:37] LABS: Glucose,Whole Blood 93 mg/dL (75-99)
[2019-11-11] MEDS: INSULIN ASPART (NovoLOG) 100 UNIT/ML VIAL SQ SCH ×4 (07:49→21:20)
[2019-11-11] MEDS: CITALOPRAM HYDROBROMIDE 10 MG TAB PO SCH (08:41)
[2019-11-11] MEDS: PANTOPRAZOLE 40 MG TABLET PO SCH ×2 (08:41→21:16)
[2019-11-11] MEDS: CLOPIDOGREL 75 MG TAB PO SCH (08:41)
[2019-11-11] MEDS ORDERED: LACOSAMIDE 50 MG TABLET PO SCH (09:00)
[2019-11-11] MEDS ORDERED: LACOSAMIDE IV 100 MG in SODIUM CHLORIDE 0.9% 50 ML IVPB SCH (09:00)
[2019-11-11 11:24] LABS: Glucose,Whole Blood 213 mg/dL (75-99)
--- NOTE | 2019-11-11 11:43 | P.CNNES ---
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 She is been followed by a neurologist in the community for many years and has been on multiple anticonvulsant medications. The patient reports that she believes her current seizure breakthrough has been didn't potential triggers involving lack of sleep stress poor eating. Current medication she is on include Keppra and glucose DC. The patient also has known kidney disease and is currently on dialysis. The current dose of Keppra of 1500 mg per day is above the recommended renal dose for he will with e nd-stage renal disease. Patient reports her prior anticonvulsant history included Depakote as a claudette nager. During this time she developed hirsutism and has never been able to resolve that. Patient has also been on Dilantin, she believes both carbamazepine and phenobarbital as well. The best combination has been however the Keppra and Vimpat. The patient does however admit that she has been non compliant and has been missing doses. She reports that her is in charge putting her pillbox together and he may be forgetting to put the appropriate doses daily. This patient does have a history of a stroke which has left her with a significant neurologic deficit involving left-sided upper hemiplegia of the arm greater than leg. Recently the patient reports having a fall last week prior to her seizure. She believes that her foot may be broken she is difficulty bearing weight on it. The patient describes her seizures have always been generalized tonic-clonic. She occasionally will get an aura for some seizures but most the time will occur without any aura. Since admission, the patient has had one seizure breakthrough and has had her medications restarted. Over the last 12 hours there have been no further report of seizure activity. Review of Systems A 10 point review of systems was obtained with positive pertinent negatives related to history of present illness. The patient does report she has been advised to have a sleep test to rule out sleep apnea. She has not followed through with this recommendation. She does have reported poor sleep continuity which leads to sleep deprivation. Witnessed snoring by her . Past Medical History Past Medical History: Chest Pain / Angina, Diabetes Mellitus, Hypertension, Renal Disease, Seizure Disorder, Thyroid Disorder Additional Past Medical History / Comment(s): dialysis bipolar. Neuropathy History of Any Multi-Drug Resistant Organisms: None Reported Past Surgical History: Section, Tonsillectomy Additional Past Surgical History / Comment(s): fistula Past Anesthesia/Blood Transfusion Reactions: No Reported Reaction Past Psychological History: Bipolar Smoking Status: Former smoker Past Alcohol Use History: Occasional Past Drug Use History: None Reported - Past Family History Father Family Medical History: Unable to Obtain Medications and Allergies Home Medications Medication Instructions Recorded Confirmed Type Clopidogrel [Plavix] 75 mg PO DAILY 02/12/17 11/11/19 History Ergocalciferol (Vitamin D2) 50,000 unit PO Q7D 02/12/17 11/11/19 History [Vitamin D2] Metoprolol Tartrate [Lopressor] 25 mg PO TID #90 tab 02/28/19 11/11/19 Rx Lacosamide [Vimpat] 100 mg PO BID 06/27/19 11/11/19 History levETIRAcetam [Keppra] 750 mg PO BID #60 tab 06/28/19 11/11/19 Rx Calcium Acetate 2,001 mg PO TID 11/11/19 11/11/19 History Allergies Allergy/AdvReac Type Severity Reaction Status Date / Time Penicillins Allergy Itching Verified 11/11/19 09:34 Physical Examination - Vital Signs Vital Signs: Vital Signs Temp Pulse Pulse Resp BP BP Pulse Ox 11/11/19 05:07 97.8 F 81 16 167/92 94 L 11/11/19 02:10 190/88 11/11/19 01:29 188/85 11/11/19 01:08 97.2 F L 86 16 204/100 91 L 11/11/19 00:22 98.5 F 85 16 156/96 11/11/19 00:00 86 16 141/78 11/10/19 22:50 98.4 F 91 16 166/99 97 Intake and Output 11/10/19 11/11/19 11/11/19 22:59 06:59 14:59 Intake Total 590 Balance 590 Intake: Oral 590 Other: Voiding Method Incontinent Incontinent # Voids 3 1 Weight 81.647 kg 86 kg General examination: Obese no acute distress. HEENT: Clear sclera. Oropharynx clear. No tongue biting noted. Large broad- based time. Salima [place] grade 3. Significant hirsutism over the chin and neck. Pulses: Radial pedal pulses are equal and symmetric. Extremities: No edema noted in the hands. Mild edema noted in the right ankle. Nonpitting. Neurological examination Mental status: Patient is drowsy but able to follow commands and provide some history. She is a very poor historian overall. Speech is mildly dysarthric. Pupils: 2 mm equally reactive to light and accommodation. Cranial nerves: Extraocular movements are full. No nystagmus noted on vertical horizontal gaze. Face appears symmetric. Palate elevates symmetrically. Gag reflex is intact. V1 through V3 sensory intact. Shoulder shrug symmetric. Tongue midline without fasciculations deviation. Motor examination patient has give way weakness -5 over 5 in the right upper and lower extremity. There is a dense left hemiparesis versus involving the left arm and hand. There is also hemiparesis involving the left lower extremity. Primarily proximal weakness is noted. No fasciculations or tremor noted. Deep tendon reflexes are trace over biceps brachial radialis bilaterally. Patellar reflexes are absent bilaterally. Ankle jerks are absent bilaterally. Plantar responses are withdrawal bilaterally. Sensory examination grossly intact to light touch and pinprick throughout. Gait examination deferred Results - Laboratory Findings CBC and BMP: 11/11/19 05:45 11/11/19 05:45 Abnormal Lab Findings: Abnormal Labs 11/11/19 11/11/19 11/11/19 05:45 05:45 06:57 RBC 3.32 L Hgb 9.9 L Hct 29.4 L Potassium 3.2 L BUN 38 H Creatinine 8.54 H* Glucose 65 L POC Glucose (mg/dL) 63 L Total Protein 6.2 L Albumin 3.4 L 11/11/19 11:22 RBC Hgb Hct Potassium BUN Creatinine Glucose POC Glucose (mg/dL) 213 H Total Protein Albumin - Diagnostic Findings EKG: report reviewed Chest x-ray: report reviewed Assessment and Plan Assessment: This is a 49-year-old female with a known history of epilepsy onset during infancy. The patient had increased seizure breakthrough primarily due to noncompliance. There is concern that her current caregiver her has not been appropriately administering her doses for her. There is also concern that this patient's renal function is worsening potentially due to her not being on a renal dosage for both glucose might and Keppra. This patient also has a known history of a stroke which would warrant further evaluation Tischer this patient has not had any new stroke findings. Her examination is significant for lethargy most likely due to medication effects from the anticonvulsants. She also has a dense hemiparesis from her prior stroke. Review of her labs also indicates this patient is at increased risk for anemia as well as endocrine disturbance with the profound hirsutism. Plan: Recommendations: 1.. Lacosamide has been adjusted to her renal creatinine clearance to 75 mg every 12. This will be given IV over the next 72 hours in order to achieve steady state. The patient should receive immediately after dialysis an additional 75 mgIV This should only occur on dialysis days. 2. Keppra to be renally adjusted to 500 mg IV every 12. Immediately after dialysis she should receive 250 mg IV. She will continue on IV dosing for 72 hours. Once the patient has been seizure-free over 72 hours we will switch her over to oral dosing form. 3. MRI of the brain without contrast. 4. EEG. 5. Anemia workup. 6. Case management to further investigate spouse's ability to provide adequate care for the patient at home. This patient may require home health care to come in and properly supervise medications. 7. On discharge this patient should have available rectal Valium 10 mg suppository for breakthrough seizure. Her spouse will need to be educated on how to administer this during a prolonged seizure. Due to this patient's significant history for epilepsy this patient is at increased risk for sudden phenomena that can occur in epileptics. Furthermore both of the medications she is currently on Lacosamide and Keppra have increased arrhythmogenic potential, therefore this patient should be on Holter monitor during this admission. 8. Aspiration precautions in place per nursing protocol 9. Seizure precautions: Ativan 1 mg IV may be given for any prolonged seizure breakthrough lasting more than 3 minutes. scallop dredger neurology should be notified immediately. 10. Lipid panel in a.m. 11. MRA of the head and neck to rule out any high-grade stenosis or large vessel occlusion. This patient's prognosis remains guarded. Further recommendations will be made as this case evolves. Thank you for allowing me to participate in the care of your patient and for this consultation.
--- NOTE | 2019-11-11 12:07 | P.HPIM ---
History of Present Illness Patient is a pleasant 49-year-old female with end-stage renal disease on hemodialysis and history of CVA in the past came in because of seizure and for prolonged postictal. Patient's seizure was witnessed by the patient has an aura which actually to get the dog to bring her patient didn't have any loss of bowel or bladder continence denied any tongue biting. Patient had a extensive history of seizures patient's seizures are finally under control. I did discuss with neurology at length patient normally gets her antiseizure medications after dialysis. We are getting the levels of Keppra and vimpat. Patient was started on IV Vimpat. Patient to regular hemodialysis is Monday and nephrology was consulted patient will undergo hemodialysis today. Patient apparently had a prolonged postictal period of 5 hours Review of Systems REVIEW OF SYSTEMS: CONSTITUTIONAL: No fever, no malaise, no fatigue. HEENT: No recent visual problems or hearing problems. Denied any sore throat. CARDIOVASCULAR: No chest pain, orthopnea, PND, no palpitations, no syncope. PULMONARY: No shortness of breath, no cough, no hemoptysis. GASTROINTESTINAL: No diarrhea, no nausea, no vomiting, no abdominal pain. NEUROLOGICAL: No headaches, no weakness, no numbness. HEMATOLOGICAL: Denies any bleeding or petechiae. GENITOURINARY: Denies any burning micturition, frequency, or urgency. MUSCULOSKELETAL/RHEUMATOLOGICAL: Denies any joint pain, swelling, or any muscle pain. ENDOCRINE: Denies any polyuria or polydipsia. The rest of the 14-point review of systems is negative. Past Medical History Past Medical History: Chest Pain / Angina, Diabetes Mellitus, Hypertension, Renal Disease, Seizure Disorder, Thyroid Disorder Additional Past Medical History / Comment(s): dialysis bipolar. Neuropathy History of Any Multi-Drug Resistant Organisms: None Reported Past Surgical History: Section, Tonsillectomy Additional Past Surgical History / Comment(s): fistula Past Anesthesia/Blood Transfusion Reactions: No Reported Reaction Past Psychological History: Bipolar Smoking Status: Former smoker Past Alcohol Use History: Occasional Past Drug Use History: None Reported - Past Family History Father Family Medical History: Unable to Obtain Medications and Allergies Home Medications Medication Instructions Recorded Confirmed Type Clopidogrel [Plavix] 75 mg PO DAILY 02/12/17 11/11/19 History Ergocalciferol (Vitamin D2) 50,000 unit PO Q7D 02/12/17 11/11/19 History [Vitamin D2] Metoprolol Tartrate [Lopressor] 25 mg PO TID #90 tab 02/28/19 11/11/19 Rx Lacosamide [Vimpat] 100 mg PO BID 06/27/19 11/11/19 History levETIRAcetam [Keppra] 750 mg PO BID #60 tab 06/28/19 11/11/19 Rx Calcium Acetate 2,001 mg PO TID 11/11/19 11/11/19 History Allergies Allergy/AdvReac Type Severity Reaction Status Date / Time Penicillins Allergy Itching Verified 11/11/19 09:34 Physical Exam Vitals: Vital Signs Temp Pulse Pulse Resp BP BP Pulse Ox 11/11/19 11:19 96.5 F L 76 16 147/77 97 11/11/19 05:07 97.8 F 81 16 167/92 94 L 11/11/19 02:10 190/88 11/11/19 01:29 188/85 11/11/19 01:08 97.2 F L 86 16 204/100 91 L 11/11/19 00:22 98.5 F 85 16 156/96 11/11/19 00:00 86 16 141/78 11/10/19 22:50 98.4 F 91 16 166/99 97 Intake and Output 11/10/19 11/11/19 11/11/19 22:59 06:59 14:59 Intake Total 590 Balance 590 Intake: Oral 590 Other: Voiding Method Incontinent Incontinent # Voids 3 1 Weight 81.647 kg 86 kg PHYSICAL EXAMINATION: GENERAL: The patient is alert and oriented x3, not in any acute distress. Well developed, well nourished. HEENT: Pupils are round and equally reacting to light. EOMI. No scleral icterus. No conjunctival pallor. Normocephalic, atraumatic. No pharyngeal erythema. No thyromegaly. CARDIOVASCULAR: S1 and S2 present. No murmurs, rubs, or gallops. PULMONARY: Chest is clear to auscultation, no wheezing or crackles. ABDOMEN: Soft, nontender, nondistended, normoactive bowel sounds. No palpable organomegaly. MUSCULOSKELETAL: No joint swelling or deformity. EXTREMITIES: No cyanosis, clubbing, or pedal edema. NEUROLOGICAL: Gross neurological examination did not reveal any focal deficits. SKIN: No rashes. Results CBC & Chem 7: 11/11/19 05:45 11/11/19 05:45 Labs: Abnormal Lab Results - Last 24 Hours (Table) 11/11/19 11/11/19 11/11/19 Range/Units 05:45 05:45 06:57 RBC 3.32 L (3.80-5.40) m/uL Hgb 9.9 L (11.4-16.0) gm/dL Hct 29.4 L (34.0-46.0) % Potassium 3.2 L (3.5-5.1) mmol/L BUN 38 H (7-17) mg/dL Creatinine 8.54 H* (0.52-1.04) mg/dL Glucose 65 L (74-99) mg/dL POC Glucose (mg/dL) 63 L (75-99) mg/dL Total Protein 6.2 L (6.3-8.2) g/dL Albumin 3.4 L (3.5-5.0) g/dL 11/11/19 Range/Units 11:22 RBC (3.80-5.40) m/uL Hgb (11.4-16.0) gm/dL Hct (34.0-46.0) % Potassium (3.5-5.1) mmol/L BUN (7-17) mg/dL Creatinine (0.52-1.04) mg/dL Glucose (74-99) mg/dL POC Glucose (mg/dL) 213 H (75-99) mg/dL Total Protein (6.3-8.2) g/dL Albumin (3.5-5.0) g/dL Thrombosis Risk Factor Assmnt - Choose All That Apply Any of the Below Risk Factors Present?: Yes Each Factor Represents 1 point: Age 41-60 years, Obesity (BMI >25) Other Risk Factors: No Other congenital or acquired thrombophilia - If yes, enter type in comment: No Thrombosis Risk Factor Assessment Total Risk Factor Score: 2 Thrombosis Risk Factor Assessment Level: Low Risk Assessment and Plan Plan: -Breakthrough seizures most probably noncompliance with medications levels of her antiseizure medications are being obtained and Vimpat was switched to IV. -End-stage renal disease, dialysis dependent secondary to diabetic nephropathy patient will undergo hemodialysis today nephrology was consulted -Type 2 diabetes mellitus patient will be resumed on her home medications and will titrate depending on her requirements of insulin -Hypertension -hypothyroidism -Bipolar disorder -DVT prophylaxis with subcutaneous heparin
[2019-11-11] MEDS ORDERED: SODIUM CHLORIDE 0.9% IVPB SCH (14:00)
[2019-11-11] MEDS ORDERED: LACOSAMIDE IVPB SCH (14:00)
[2019-11-11] MEDS ORDERED: levETIRAcetam IV 250 MG in SODIUM CHLORIDE 0.9% 100 ML IVPB SCH (15:00)
--- NOTE | 2019-11-11 15:48 | CONS ---
CONSULTATION REASON FOR CONSULT: End-stage renal disease. HISTORY OF PRESENT ILLNESS: Patient is a 49-year-old female with end-stage renal disease, on hemodialysis on a Monday, Monday, Monday schedule. She was admitted to the hospital with history of seizure this morning. The patient does have history of seizures with previous breakthrough seizures. However, this has been quite stable recently. Patient denies having missed any of her medications. She has been evaluated by Neurology. She is maintained on her usual medications. No further seizures since admission. Currently maintained on IV . PAST MEDICAL HISTORY: End-stage renal disease, CKD mineral bone disorder, type 2 diabetes, hypertension, hypothyroidism, bipolar disorder, neuropathy. PAST SURGICAL HISTORY: , tonsillectomy, AV fistula. SOCIAL HISTORY: Patient is a former smoker. No history of drug abuse or alcohol abuse. MEDICATIONS: At home prior to admission included Plavix, vitamin D, Lopressor, Keppra, and PhosLo. ALLERGIES: Include PENICILLIN, which causes itching. PHYSICAL EXAMINATION: Patient is comfortable, awake, not in any acute distress. Alert and oriented x3. Blood pressure this morning was 167/92, heart rate 81 per minute. She is afebrile. Examination of the heart S1, S2. Examination of the lungs, bilateral breath sounds are heard. Abdomen is soft, nontender. Examination of the lower extremities shows no evidence of edema. LUMBER STACKER exam grossly intact. LABS: Show hemoglobin 9.9, sodium 139, potassium 3.2. ASSESSMENT: 1. End-stage renal disease, on hemodialysis on a Monday, Monday, Monday schedule. We will arrange for hemodialysis today. 2. Hypokalemia. Patient will be dialyzed on a low-potassium bath. 3. Hypertension. 4. Breakthrough seizures. 5. CKD mineral bone disorder, maintained on PhosLo. PLAN: Hemodialysis today. Once patient is cleared from Neurology she can be discharged. MMODL / IJN: [id number] /
[2019-11-11] MEDS: HEPARIN SODIUM,PORCINE 5,000 UNIT/ML 1 ML VIAL SQ SCH ×2 (16:40→23:58)
[2019-11-11 17:10] LABS: Glucose,Whole Blood 177 mg/dL (75-99)
[2019-11-11 20:07] LABS: Glucose,Whole Blood 156 mg/dL (75-99)
[2019-11-11] MEDS: levETIRAcetam IV 500 MG in SODIUM CHLORIDE 0.9% 100 ML IVPB SCH (20:25)
[2019-11-11] MEDS ORDERED: INSULIN DETEMIR (LEVEMIR) 100 UNIT/ML SYR SQ SCH (21:00)
[2019-11-11] MEDS ORDERED: ATORVASTATIN 40 MG TAB PO SCH (21:00)
[2019-11-11] MEDS: SODIUM CHLORIDE 0.9% IVPB SCH (21:15)
[2019-11-11] MEDS: LACOSAMIDE IVPB SCH (21:15)
[2019-11-12 02:28] LABS: Glucose,Whole Blood 124 mg/dL (75-99)
[2019-11-12 05:44] LABS: Calcium 8.2 mg/dL (8.4-10.2); Potassium 3.4 mmol/L (3.5-5.1)
[2019-11-12 07:08] LABS: Glucose,Whole Blood 62 mg/dL (75-99)
[2019-11-12 07:33] LABS: Glucose,Whole Blood 129 mg/dL (75-99)
[2019-11-12] MEDS: INSULIN ASPART (NovoLOG) 100 UNIT/ML VIAL SQ SCH ×4 (07:54→21:03)
[2019-11-12 08:58] LABS: Levetiracetam (Keppra) 64.2 ug/mL (3.0-60.0)
[2019-11-12] MEDS: HEPARIN SODIUM,PORCINE 5,000 UNIT/ML 1 ML VIAL SQ SCH ×3 (09:34→23:53)
[2019-11-12] MEDS: levETIRAcetam IV 500 MG in SODIUM CHLORIDE 0.9% 100 ML IVPB SCH ×2 (09:34→22:23)
[2019-11-12] MEDS: METOPROLOL TARTRATE 25 MG TAB PO SCH ×3 (09:35→22:23)
[2019-11-12] MEDS: CITALOPRAM HYDROBROMIDE 10 MG TAB PO SCH (09:35)
[2019-11-12] MEDS: CLOPIDOGREL 75 MG TAB PO SCH (09:35)
[2019-11-12] MEDS: amLODIPine 10 MG TAB PO SCH (09:35)
[2019-11-12] MEDS: PANTOPRAZOLE 40 MG TABLET PO SCH ×2 (09:35→21:03)
--- NOTE | 2019-11-12 09:35 | P.PN ---
Subjective From the records: Patient is a pleasant 49-year-old female with end-stage renal disease on hemodialysis and history of CVA in the past came in because of seizure and for prolonged postictal. Patient's seizure was witnessed by the patient has an aura which actually to get the dog to bring her patient didn't have any loss of bowel or bladder continence denied any tongue biting. Patient had a extensive history of seizures patient's seizures are finally under control. I did discuss with neurology at length patient normally gets her antiseizure medications after dialysis. We are getting the levels of Keppra and vimpat. Patient was started on IV Vimpat. Patient to regular hemodialysis is Monday and nephrology was consulted patient will undergo hemodialysis today. Patient apparently had a prolonged postictal period of 5 hours Subjective: Patient is a pleasant 49 years old female with past medical history of end-stage renal disease, diabetes mellitus on 15 units of insulin Levemir at bedtime and history of seizure medication on Keppra 750 mg twice daily and Vimpat 100 mg twice daily, patient presents with breakthrough seizure. Patient is alert and awake today and states that maybe she missed her dose, and that her helped her with medication but was not sure what happened. Also patient noticed to be slow to respond and answer questions with possible some memory problems and difficulties On admission CT of the brain was unremarkable, neurologist recommended MRI however could not be done because of possible nerve stent later that she has, we'll follow-up with the neurologist about further recommendation. Also patient was started on Vimpat IV 75 mg twice daily at Keppra IV 500 mg twice daily while the levels are still pending. Also EEG is pending Patient herself denies other complaints this morning. Vital stable. Labs noted with sodium 133 and potassium 3.4, LDL is elevated at 133. Her sugar was 62 this morning and her insulin lowered from 15 down to 12 units at bedtime Her neurologist as an outpatient is Dr. Huff Review of systems CONSTITUTIONAL: No fever, no malaise, no fatigue. HEENT: No recent visual problems or hearing problems. Denied any sore throat. CARDIOVASCULAR: No orthopnea, PND, no palpitations, no syncope. PULMONARY: No shortness of breath, no cough, no hemoptysis. GASTROINTESTINAL: No diarrhea, no nausea, no vomiting, no abdominal pain. No rmoactive bowel sounds. NEUROLOGICAL: No headaches, no weakness, no numbness. HEMATOLOGICAL: Denies any bleeding or petechiae. GENITOURINARY: Denies any burning micturition, frequency, or urgency. MUSCULOSKELETAL/RHEUMATOLOGICAL: Denies any joint pain, swelling, or any muscle pain. ENDOCRINE: Denies any polyuria or polydipsia. Active Medications Generic Name Dose Route Start Last Admin Trade Name Freq PRN Reason Stop Dose Admin Acetaminophen 650 mg 11/10/19 23:34 Tylenol Tab PO Q6HR PRN Mild Pain or Fever > 100.5 Albuterol Sulfate 2.5 mg 11/11/19 06:03 Ventolin Nebulized INHALATION RT-Q4H PRN Shortness Of Breath Amlodipine Besylate 10 mg 11/11/19 09:00 11/11/19 06:23 Norvasc PO 10 mg DAILY NEELIMA Administration Atorvastatin Calcium 60 mg 11/12/19 21:00 Lipitor PO HS NEELIMA Citalopram Hydrobromide 10 mg 11/11/19 09:00 11/11/19 08:41 Celexa PO 10 mg DAILY NEELIMA Administration Clopidogrel Bisulfate 75 mg 11/11/19 09:00 11/11/19 08:41 Plavix PO 75 mg DAILY NEELIMA Administration Ergocalciferol 50,000 unit 11/17/19 09:00 Vitamin D2 PO ESQUIVEL NEELIMA Heparin Sodium (Porcine) 5,000 unit 11/11/19 16:00 11/11/19 23:58 Heparin SQ 5,000 unit Q8HR NEELIMA Administration Lacosamide 75 mg/ Sodium 57.5 mls @ 115 mls/hr 11/11/19 21:00 11/11/19 21:15 Chloride IVPB 115 mls/hr BID NEELIMA Administration Lacosamide 75 mg/ Sodium 57.5 mls @ 115 mls/hr 11/11/19 14:00 11/11/19 19:45 Chloride IVPB Not Given MoWeFr@1400 NEELIMA Levetiracetam 500 mg/ Sodium 105 mls @ 400 mls/hr 11/11/19 22:00 11/11/19 20:25 Chloride IVPB Not Given Q12H NEELIMA Levetiracetam 250 mg/ Sodium 102.5 mls @ 400 mls/hr 11/11/19 15:00 11/11/19 19:31 Chloride IVPB 400 mls/hr MoWeFr@1500 [facility] Administration Insulin Aspart 0 unit 11/11/19 07:30 11/12/19 07:54 Novolog SQ Not Given [facility] Protocol Insulin Detemir 12 unit 11/12/19 21:00 Levemir SQ HS [facility] Lorazepam 1 mg 11/11/19 00:32 Ativan IV Q4HR PRN Seizures Metoprolol Tartrate 25 mg 11/11/19 09:00 11/11/19 21:16 Lopressor PO 25 mg TID [facility] Administration Naloxone HCl 0.2 mg 11/10/19 23:34 Narcan IV Q2M PRN Opioid Reversal Ondansetron HCl 4 mg 11/10/19 23:34 Zofran IVP Q8HR PRN Nausea And Vomiting Pantoprazole Sodium 40 mg 11/11/19 09:00 11/11/19 21:16 Protonix PO 40 mg BID [facility] Administration Objective - Vital Signs Vital signs: Vital Signs Temp 98.3 F 11/12/19 04:37 Pulse 73 11/12/19 04:37 Resp 18 11/12/19 04:37 BP 161/80 11/12/19 04:37 Pulse Ox 96 11/12/19 04:37 Intake & Output 11/11/19 11/12/19 11/12/19 18:59 06:59 18:59 Intake Total 1050 Balance 1050 Intake: Intake, IV Titration 150 Amount Lacosamide IV 75 mg In 50 Sodium Chloride 0.9% 50 ml @ 115 mls/hr IVPB MoWeFr@1400 [facility] Rx#: [id number] levETIRAcetam IV 250 mg 100 In Sodium Chloride 0.9% 100 ml @ 400 mls/hr IVPB MoWeFr@1500 [facility] Rx#: [id number] Oral 900 Other: Voiding Method Bedpan Diaper Incontinent Incontinent # Voids 1 3 - Exam -GENERAL: The patient is alert and oriented x3, but she answers to slowly not in any acute distress. Well developed, well nourished. HEENT: Pupils are round and equally reacting to light. EOMI. No scleral icterus. No conjunctival pallor. Normocephalic, atraumatic. No pharyngeal erythema. No thyromegaly. CARDIOVASCULAR: S1 and S2 present. No murmurs, rubs, or gallops. PULMONARY: Chest is clear to auscultation, no wheezing or crackles. ABDOMEN: Soft, nontender, nondistended, normoactive bowel sounds. No palpable organomegaly. MUSCULOSKELETAL: No joint swelling or deformity. EXTREMITIES: No cyanosis, clubbing, or pedal edema. NEUROLOGICAL: Gross neurological examination did not reveal any focal deficits. SKIN: No rashes. - Labs CBC & Chem 7: 11/11/19 05:45 11/12/19 05:16 Labs: Abnormal Lab Results - Last 24 Hours (Table) 11/11/19 11/11/19 11/11/19 Range/Units 08:56 11:22 17:08 Sodium (137-145) mmol/L Potassium (3.5-5.1) mmol/L BUN (7-17) mg/dL Creatinine (0.52-1.04) mg/dL Glucose (74-99) mg/dL POC Glucose (mg/dL) 213 H 177 H (75-99) mg/dL Calcium (8.4-10.2) mg/dL Triglycerides (<150) mg/dL Cholesterol (<200) mg/dL LDL Cholesterol, Calc (0-99) mg/dL HDL Cholesterol (40-60) mg/dL Levetiracetam 64.2 H (3.0-60.0) ug/mL 11/11/19 11/12/19 11/12/19 Range/Units 20:06 02:27 05:16 Sodium 133 L (137-145) mmol/L Potassium 3.4 L (3.5-5.1) mmol/L BUN 26 H (7-17) mg/dL Creatinine 6.35 H (0.52-1.04) mg/dL Glucose 69 L (74-99) mg/dL POC Glucose (mg/dL) 156 H 124 H (75-99) mg/dL Calcium 8.2 L (8.4-10.2) mg/dL Triglycerides 271 H (<150) mg/dL Cholesterol 219 H (<200) mg/dL LDL Cholesterol, Calc 133 H (0-99) mg/dL HDL Cholesterol 32 L (40-60) mg/dL Levetiracetam (3.0-60.0) ug/mL 11/12/19 11/12/19 Range/Units 07:03 07:21 Sodium (137-145) mmol/L Potassium (3.5-5.1) mmol/L BUN (7-17) mg/dL Creatinine (0.52-1.04) mg/dL Glucose (74-99) mg/dL POC Glucose (mg/dL) 62 L 129 H (75-99) mg/dL Calcium (8.4-10.2) mg/dL Triglycerides (<150) mg/dL Cholesterol (<200) mg/dL LDL Cholesterol, Calc (0-99) mg/dL HDL Cholesterol (40-60) mg/dL Levetiracetam (3.0-60.0) ug/mL Assessment and Plan Assessment: -Breakthrough seizures most probably noncompliance with medications levels of her antiseizure medications are being obtained and Vimpat was switched to IV. Follow-up Kip and Gloria several, follow-up EEG. oncology social worker consult to help with her taking medication -End-stage renal disease, dialysis dependent secondary to diabetic nephropathy patient will undergo hemodialysis today nephrology was consulted -Type 2 diabetes mellitus patient will be resumed on her home medications and will titrate depending on her requirements of insulin. 4 insulin down to 12 units at bedtime -Hypertension -hypothyroidism -Bipolar disorder -DVT prophylaxis with subcutaneous heparin Prognosis is guarded
[2019-11-12] MEDS: LACOSAMIDE IVPB SCH ×2 (10:36→21:03)
[2019-11-12] MEDS: SODIUM CHLORIDE 0.9% IVPB SCH ×2 (10:36→21:03)
[2019-11-12 11:15] LABS: Glucose,Whole Blood 176 mg/dL (75-99)
[2019-11-12 11:25] LABS: Ferritin 793.8 ng/mL (10.0-291.0)
--- NOTE | 2019-11-12 16:11 | PN ---
PROGRESS NOTE /breakthrough seizures. Patient has not had any further seizures since admission. She was dialyzed yesterday, tolerated her treatment well, and patient will be dialyzed again tomorrow. She wants to go home today. On examination, blood pressure is 161/80, heart rate 73 per minute. She is afebrile. Exam shows patient is euvolemic, with no evidence of edema in bilateral lower extremities. Abdomen is soft, non-tender. Labs show sodium 133, potassium 3.4 today. CO2 is 24. ASSESSMENT: 1. End-stage renal disease, on hemodialysis on a Monday, Monday, Monday schedule. Patient will be dialyzed again tomorrow. 2. Hypokalemia, status post replacement. We will dialyze her on a 3K bath tomorrow. 3. Breakthrough seizures, being followed by Neurology, status post IV lacosamide; maintained on IV Keppra as well. PLAN: Hemodialysis in a.m. MMODL / ALBARON: [id number] /
--- NOTE | 2019-11-12 16:35 | EEG ---
ELECTROENCEPHALOGRAM REPORT DATE OF SERVICE: 11/12/2019. REASON FOR EEG: Breakthrough seizures in known epileptic. HISTORY: This is an inpatient EEG performed on a 49-year-old female with a history of seizure onset early after . The patient has medically refracted epilepsy and has a vagal nerve stimulator. Current medications are lacosamide and levetiracetam. No prior EEG is available for review. The patient was admitted for increased breakthrough seizures. Potential risk factors include noncompliance, sleep deprivation and social stress. The patient's past medical history is also significant for a prior stroke with the patient having a dense hemiparesis involving the left upper extremity. Left lower extremity weakness as well. TECHNICAL REPORT: This is an inpatient EEG performed on the [employer] EEG monitor with electrodes placed according to the international 10 - 20 system and a single EKG channel. Simultaneous video EEG monitoring was performed. This EEG was reviewed in both longitudinal bipolar, common average referential and transverse montages. Photic stimulation was performed. Hyperventilation was not performed due to the patient's prior history of stroke. The recording begins with the patient awake with eyes open. A moderate- to high- amplitude background is present with frequencies ranging from 7 to maximum 10 Hz. Low- amplitude beta activity is prominent over the anterior and central head regions. Intermittently throughout the study several seconds of high-amplitude polymorphic delta slowing would be noted over the left frontal central and temporal head region. At 10:08:42, four seconds of high-amplitude bifrontal slowing was noted with some extension into the temporal lobe. The patient briefly transitions between wide wakefulness and drowsiness. Drowsiness is associated with a further attenuation of the background rhythm with an increase in beta activity anteriorly and centrally. Slow rolling eye movements appeared and the background frequency slowed to 7 to 8 Hz. During the study, the technologist asks the patient various questions, and she is able to respond appropriately, except without knowing who our current president is. The background remains fully awake with an 8 to maximum 10 Hz posterior-dominant rhythm that appears well-modulated and symmetric. At 10:15:13, a single high-amplitude spike and slow-wave discharge appears over the midline vertex. This lasts for one second and consists of 1 cycle/second. Photic stimulation was performed at various flash frequencies and failed to elicit a consistent driving response. At 10:15:17, again high-amplitude single spike and slow-wave discharge appears over the midline vertex, and this time extended to the left central head region. When reviewing this phenomena in the referential montage, maximum negativity appears to be bifrontal, with maximum negativity over the left frontal head region. F3, F7 electrode placement. Deeper stages of sleep were not achieved. IMPRESSION: This is an abnormal EEG due to the rare epileptiform discharges described that appear to be primarily lateralized over the midline vertex and frontal head region. In addition, polymorphic delta slowing was noted, which is considered an abnormal finding. This again was lateralized to the frontal central and temporal head regions. No abnormalities were noted in the EKG. No abnormalities were noted during photic stimulation. Deeper stages of sleep were not achieved. CLINICAL CORRELATION: This EEG does suggest the patient does have an increased risk for seizures, and there appears to be a potential epileptogenic focus in the midline frontal head region. This may be due to early trauma or encephalomalacia involving her stroke area. Serial EEGs are recommended & if clinically indicated more prolonged overnight study. This EEG did not contain any active clinical or electrographic seizure activity. MMODL / IJN: [id number] / GORDO
[2019-11-12 17:08] LABS: Glucose,Whole Blood 243 mg/dL (75-99)
[2019-11-12 20:12] LABS: Glucose,Whole Blood 182 mg/dL (75-99)
[2019-11-12] MEDS: ATORVASTATIN 20 MG TAB PO SCH (21:02)
[2019-11-12] MEDS: INSULIN DETEMIR (LEVEMIR) 100 UNIT/ML SYR SQ SCH (21:03)
[2019-11-13 02:26] LABS: Glucose,Whole Blood 69 mg/dL (75-99)
[2019-11-13 02:47] LABS: Glucose,Whole Blood 91 mg/dL (75-99)
[2019-11-13 07:05] LABS: Glucose,Whole Blood 97 mg/dL (75-99)
[2019-11-13] MEDS: INSULIN ASPART (NovoLOG) 100 UNIT/ML VIAL SQ SCH ×4 (07:32→20:59)
[2019-11-13] MEDS: LACOSAMIDE IVPB SCH (09:12)
[2019-11-13] MEDS: SODIUM CHLORIDE 0.9% IVPB SCH (09:12)
[2019-11-13] MEDS: METOPROLOL TARTRATE 25 MG TAB PO SCH ×3 (09:13→22:13)
[2019-11-13] MEDS: CLOPIDOGREL 75 MG TAB PO SCH (09:13)
[2019-11-13] MEDS: HEPARIN SODIUM,PORCINE 5,000 UNIT/ML 1 ML VIAL SQ SCH ×2 (09:13→15:59)
[2019-11-13] MEDS: PANTOPRAZOLE 40 MG TABLET PO SCH ×2 (09:13→20:59)
[2019-11-13] MEDS: amLODIPine 10 MG TAB PO SCH (09:13)
[2019-11-13] MEDS: CITALOPRAM HYDROBROMIDE 10 MG TAB PO SCH (09:13)
[2019-11-13] MEDS: LACOSAMIDE 50 MG TABLET PO SCH ×3 (09:57→20:59)
[2019-11-13] MEDS: levETIRAcetam 500 MG TAB PO SCH ×2 (11:05→22:13)
[2019-11-13 11:31] LABS: Glucose,Whole Blood 279 mg/dL (75-99)
--- NOTE | 2019-11-13 15:28 | P.PN ---
Subjective From the records: Patient is a pleasant 49-year-old female with end-stage renal disease on hemodialysis and history of CVA in the past came in because of seizure and for prolonged postictal. Patient's seizure was witnessed by the patient has an aura which actually to get the dog to bring her patient didn't have any loss of bowel or bladder continence denied any tongue biting. Patient had a extensive history of seizures patient's seizures are finally under control. I did discuss with neurology at length patient normally gets her antiseizure medications after dialysis. We are getting the levels of Keppra and vimpat. Patient was started on IV Vimpat. Patient to regular hemodialysis is Monday and nephrology was consulted patient will undergo hemodialysis today. Patient apparently had a prolonged postictal period of 5 hours Subjective: Patient is a pleasant 49 years old female with past medical history of end-stage renal disease, diabetes mellitus on 15 units of insulin Levemir at bedtime and history of seizure medication on Keppra 750 mg twice daily and Vimpat 100 mg twice daily, patient presents with breakthrough seizure. Patient is alert and awake today and states that maybe she missed her dose, and that her helped her with medication but was not sure what happened. Also patient noticed to be slow to respond and answer questions with possible some memory problems and difficulties On admission CT of the brain was unremarkable, neurologist recommended MRI however could not be done because of possible nerve stent later that she has, we'll follow-up with the neurologist about further recommendation. Also patient was started on Vimpat IV 75 mg twice daily at Keppra IV 500 mg twice daily while the levels are still pending. Also EEG is pending Patient herself denies other complaints this morning. Vital stable. Labs noted with sodium 133 and potassium 3.4, LDL is elevated at 133. Her sugar was 62 this morning and her insulin lowered from 15 down to 12 units at bedtime Her neurologist as an outpatient is Dr. Huff 11/13/2019 Patient is awake and alert. No other new complaints. No dyspnea. Patient says that she had a stroke about 2 weeks ago with residual left hemiparesis and dysarthria. No more seizure today. EEG showing increased risk of seizure and there is a potential epileptogenic focus in the midline frontal region Patient is followed by neurology and switched to Vimpat 150 mg daily plus extra 10 mg on Monday, Monday and Monday. Also she switched to Keppra 750 mg twice daily. Also she is undergoing hemodialysis today Vitals are stable. Sugar is controlled. Review of systems CONSTITUTIONAL: No fever, no malaise, no fatigue. HEENT: No recent visual problems or hearing problems. Denied any sore throat. CARDIOVASCULAR: No orthopnea, PND, no palpitations, no syncope. PULMONARY: No shortness of breath, no cough, no hemoptysis. GASTROINTESTINAL: No diarrhea, no nausea, no vomiting, no abdominal pain. Normoactive bowel sounds. NEUROLOGICAL: No headaches, no weakness, no numbness. HEMATOLOGICAL: Denies any bleeding or petechiae. GENITOURINARY: Denies any burning micturition, frequency, or urgency. MUSCULOSKELETAL/RHEUMATOLOGICAL: Denies any joint pain, swelling, or any muscle pain. ENDOCRINE: Denies any polyuria or polydipsia. Active Medications Generic Name Dose Route Start Last Admin Trade Name Freq PRN Reason Stop Dose Admin Acetaminophen 650 mg 11/10/19 23:34 Tylenol Tab PO Q6HR PRN Mild Pain or Fever > 100.5 Albuterol Sulfate 2.5 mg 11/11/19 06:03 Ventolin Nebulized INHALATION RT-Q4H PRN Shortness Of Breath Amlodipine Besylate 10 mg 11/11/19 09:00 11/13/19 09:13 Norvasc PO 10 mg DAILY NEELIMA Administration Atorvastatin Calcium 60 mg 11/12/19 21:00 11/12/19 21:02 Lipitor PO 60 mg HS NEELIMA Administration Citalopram Hydrobromide 10 mg 11/11/19 09:00 11/13/19 09:13 Celexa PO 10 mg DAILY NEELIMA Administration Clopidogrel Bisulfate 75 mg 11/11/19 09:00 11/13/19 09:13 Plavix PO 75 mg DAILY NEELIMA Administration Ergocalciferol 50,000 unit 11/17/19 09:00 Vitamin D2 PO ESQUIVEL NEELIMA Heparin Sodium (Porcine) 5,000 unit 11/11/19 16:00 11/13/19 09:13 Heparin SQ 5,000 unit Q8HR NEELIMA Administration Insulin Aspart 0 unit 11/11/19 07:30 11/13/19 13:29 Novolog SQ 4 unit ACHS NEELIMA Administration Protocol Insulin Detemir 12 unit 11/12/19 21:00 11/12/19 21:03 Levemir SQ 12 unit HS NEELIMA Administration Lacosamide 100 mg 11/13/19 09:30 11/13/19 09:57 Vimpat PO 100 mg DAILY NEELIMA Administration Lacosamide 50 mg 11/13/19 21:00 Vimpat PO HS NEELIMA Lacosamide 100 mg 11/13/19 14:00 Vimpat PO MoWeFr NEELIMA Levetiracetam 500 mg 11/13/19 10:00 11/13/19 11:05 Keppra PO 500 mg Q12H NEELIMA Administration Levetiracetam 250 mg 11/13/19 15:00 Keppra PO MoWeFr NEELIMA Lorazepam 1 mg 11/11/19 00:32 Ativan IV Q4HR PRN Seizures Metoprolol Tartrate 25 mg 11/11/19 09:00 11/13/19 09:13 Lopressor PO 25 mg TID NEELIMA Administration Naloxone HCl 0.2 mg 11/10/19 23:34 Narcan IV Q2M PRN Opioid Reversal Ondansetron HCl 4 mg 11/10/19 23:34 Zofran IVP Q8HR PRN Nausea And Vomiting Pantoprazole Sodium 40 mg 11/11/19 09:00 11/13/19 09:13 Protonix PO 40 mg BID NEELIMA Administration Objective - Vital Signs Vital signs: Vital Signs Temp 98.3 F 11/13/19 11:15 Pulse 81 11/13/19 11:15 Resp 16 11/13/19 11:15 BP 148/94 11/13/19 11:15 Pulse Ox 97 11/13/19 11:15 Intake & Output 11/12/19 11/13/19 11/13/19 18:59 06:59 18:59 Intake Total 700 590 Balance 700 590 Intake: Intake, IV Titration 150 Amount Lacosamide IV 75 mg In 50 Sodium Chloride 0.9% 50 ml @ 115 mls/hr IVPB MoWeFr@1400 [facility] Rx#: [id number] levETIRAcetam IV 250 mg 100 In Sodium Chloride 0.9% 100 ml @ 400 mls/hr IVPB MoWeFr@1500 [facility] Rx#: [id number] Oral 550 590 Other: Voiding Method Toilet Bedside Commode Bedside Commode Diaper Diaper Diaper # Voids 1 2 1 # Bowel Movements 1 1 - Exam -GENERAL: The patient is alert and oriented x3, but she answers to slowly not in any acute distress. Well developed, well nourished. HEENT: Pupils are round and equally reacting to light. EOMI. No scleral icterus. No conjunctival pallor. Normocephalic, atraumatic. No pharyngeal erythema. No thyromegaly. CARDIOVASCULAR: S1 and S2 present. No murmurs, rubs, or gallops. PULMONARY: Chest is clear to auscultation, no wheezing or crackles. ABDOMEN: Soft, nontender, nondistended, normoactive bowel sounds. No palpable organomegaly. MUSCULOSKELETAL: No joint swelling or deformity. EXTREMITIES: No cyanosis, clubbing, or pedal edema. NEUROLOGICAL: Gross neurological examination did not reveal any focal deficits. SKIN: No rashes. - Labs CBC & Chem 7: 11/11/19 05:45 11/12/19 05:16 Labs: Abnormal Lab Results - Last 24 Hours (Table) 11/12/19 11/12/19 11/13/19 Range/Units 17:02 20:11 02:24 POC Glucose (mg/dL) 243 H 182 H 69 L (75-99) mg/dL 11/13/19 Range/Units 11:19 POC Glucose (mg/dL) 279 H (75-99) mg/dL Assessment and Plan Assessment: -Breakthrough seizures most probably noncompliance with medications levels of her antiseizure medications are being obtained and Vimpat was switched to IV. Follow-up Keppra and Vimpat several, follow-up EEG. qualified craft worker electrician consult to help with her taking medication -End-stage renal disease, dialysis dependent secondary to diabetic nephropathy patient will undergo hemodialysis today nephrology was consulted -Type 2 diabetes mellitus patient will be resumed on her home medications and will titrate depending on her requirements of insulin. 4 insulin down to 12 units at bedtime -Hypertension -hypothyroidism -Bipolar disorder -DVT prophylaxis with subcutaneous heparin Prognosis is guarded
--- NOTE | 2019-11-13 15:46 | PN ---
PROGRESS NOTE Patient is seen for followup for end-stage renal disease. She is scheduled for hemodialysis today. Patient denies any significant complaints. Blood pressure was 148/94, heart rate 81 per minute. She is afebrile. There is no evidence of edema noted in the lower extremities. Abdomen is soft, nontender. Labs show sodium 133 from yesterday, potassium 3.4. ASSESSMENT: 1. End-stage renal disease, on hemodialysis on a Monday, Monday, Monday schedule. Scheduled for hemodialysis today. 2. Chronic kidney disease mineral bone disorder, currently stable. PTH at goal. 3. Breakthrough seizures, being followed by Neurology. 4. Hypokalemia, status post replacement. PLAN: Hemodialysis today; goal UF 1 to 2 L. We will use a higher potassium bath. MMODL / IJN: [id number] /
[2019-11-13] MEDS: levETIRAcetam 250 MG TAB PO SCH (16:58)
[2019-11-13 17:00] LABS: Glucose,Whole Blood 237 mg/dL (75-99)
[2019-11-13 20:52] LABS: Glucose,Whole Blood 241 mg/dL (75-99)
[2019-11-13] MEDS: ATORVASTATIN 20 MG TAB PO SCH (20:59)
[2019-11-13] MEDS: INSULIN DETEMIR (LEVEMIR) 100 UNIT/ML SYR SQ SCH (20:59)
--- NOTE | 2019-11-14 00:11 | PN ---
PROGRESS NOTE NEUROLOGY PROGRESS NOTE: DATE OF SERVICE: 11/13/2019 SUBJECTIVE: No reports of any further seizure activity per nursing staff. Patient has remained stable today after dialysis. Patient was unable to undergo MRI testing due to vagal nerve stimulator. Patient did not disclose that she had this on admission. Patient reports that she is feeling better and is anxious to go home. She reports feeling better on the current dosing on her seizure medications. OBJECTIVE: EEG completed on November 11 showing this study was abnormal, consistent with the patient with epilepsy. EXAMINATION: Patient is awake, alert, oriented to time, place, and person. Her speech is fluent. Patient is more alert compared to her admission. Pupils are 2 mm, equally reactive to light and accommodation. Cranial nerves: Extraocular movements are full. No nystagmus is noted on vertical or horizontal gaze. Face appears symmetric. Gag reflex is intact. Cranial nerve 8 is intact by clinical observation. Shoulder shrug symmetric. Motor examination: Dense hemiparesis of the left arm and leg. Give-way weakness is present still in the right upper and lower extremity. Pronator drift positive on the left. Coordination testing: Gqkubf-ne-eumb testing on the right is intact without dysmetria. Rpklgu-rr-ehxe testing on the left is limited due to hemiparesis. Sensory examination: Grossly intact to light touch throughout. Gait examination: Deferred. ASSESSMENT AND RECOMMENDATIONS: This is a 49-year-old female who was admitted for breakthrough seizure activity. She has a history of infancy onset epilepsy and is currently on both Vimpat and Keppra. Her dosages have now been adjusted for her renal clearance since this patient is in end- stage renal disease on dialysis. I have discussed this evening with the patient the reason for the adjustment of her doses as well as the requirement for her to have immediate dosing of these medications immediately after dialysis. We also discussed the importance of home health care, helping to supervise her medication regimen. RECOMMENDATIONS: 1. This patient can be prepared for discharge home. The patient should have home health care in place along with proper instructions to dialysis unit for her to receive immediately after dialysis 250 mg of Keppra and 100 mg of Vimpat. 2. Another potential trigger for this patient's lowered seizure threshold is increased risk for obstructive sleep apnea. This patient is morbidly obese and does have a history of poor sleep continuity and excessive daytime sleepiness. Please arrange for this to occur as an outpatient. 3. Patient should have arranged follow up with her neurologist, , within the next 2 weeks or sooner if there is any clinical change. 4. Anticonvulsant levels are still pending. I will be here through next week and will follow up on these and assure that these level reports will get to her primary care doctor. 5. This patient will be going home on an director of kids. The director of kids is recommended due to her being on 2 medications that have high potential for causing arrhythmias. With this patient's history of stroke and stroke risk factors, it would be beneficial to assure that these current medications are appropriate from a cardiac standpoint. Instructions have been given to the cardiology service that the report of this study will go to her primary care physician. Thank you for allowing me to participate in the care of your patient. Anticipate discharge for October. JOYCE / DAYNA: [id number] / MTDD
[2019-11-14 02:18] LABS: Glucose,Whole Blood 233 mg/dL (75-99)
[2019-11-14 07:29] LABS: Glucose,Whole Blood 182 mg/dL (75-99)
[2019-11-14] MEDS: amLODIPine 10 MG TAB PO SCH (07:58)
[2019-11-14] MEDS: CITALOPRAM HYDROBROMIDE 10 MG TAB PO SCH (07:58)
[2019-11-14] MEDS: LACOSAMIDE 50 MG TABLET PO SCH ×2 (07:58→21:06)
[2019-11-14] MEDS: CLOPIDOGREL 75 MG TAB PO SCH (07:59)
[2019-11-14] MEDS: PANTOPRAZOLE 40 MG TABLET PO SCH ×2 (07:59→21:05)
[2019-11-14] MEDS: METOPROLOL TARTRATE 25 MG TAB PO SCH ×3 (07:59→21:06)
[2019-11-14] MEDS: HEPARIN SODIUM,PORCINE 5,000 UNIT/ML 1 ML VIAL SQ SCH ×2 (07:59→21:05)
[2019-11-14] MEDS: INSULIN ASPART (NovoLOG) 100 UNIT/ML VIAL SQ SCH ×4 (08:02→21:05)
[2019-11-14] MEDS: levETIRAcetam 500 MG TAB PO SCH ×2 (09:02→21:06)
[2019-11-14 11:20] LABS: Glucose,Whole Blood 209 mg/dL (75-99)
[2019-11-14 13:46] LABS: Hemoglobin A1C 9.5 % (4.0-6.0)
--- NOTE | 2019-11-14 16:48 | PN ---
PROGRESS NOTE Patient is seen for end-stage renal disease. She has not had any further seizures. She is comfortable. Patient denies any significant complaints. She states she will possibly be going home today. PHYSICAL EXAMINATION: On examination, blood pressure 142/64, heart rate 75 per minute. Patient is afebrile. EXAMINATION OF THE HEART: S1 and S2. EXAMINATION OF LUNGS: Bilateral breath sounds are heard. ABDOMEN: Soft, non-tender. Examination of lower extremities shows no evidence of edema. ASSESSMENT: 1. End-stage renal disease, on hemodialysis on a Monday, Monday, Monday schedule. 2. Breakthrough seizures, being followed by Neurology, status post IV lacosamide. 3. Chronic kidney disease mineral bone disorder. 4. Hypertension, currently stable. PLAN: Hemodialysis in a.m. if patient is still here. Otherwise she can be dialyzed as outpatient at her outpatient unit. MMODL / IJN: [id number] /
[2019-11-14 17:03] LABS: Glucose,Whole Blood 185 mg/dL (75-99)
[2019-11-14 19:57] LABS: Glucose,Whole Blood 218 mg/dL (75-99)
[2019-11-14] MEDS: INSULIN DETEMIR (LEVEMIR) 100 UNIT/ML SYR SQ SCH (21:05)
[2019-11-14] MEDS: ATORVASTATIN 20 MG TAB PO SCH (21:05)
--- NOTE | 2019-11-14 23:25 | P.PN ---
Subjective From the records: Patient is a pleasant 49-year-old female with end-stage renal disease on hemodialysis and history of CVA in the past came in because of seizure and for prolonged postictal. Patient's seizure was witnessed by the patient has an aura which actually to get the dog to bring her patient didn't have any loss of bowel or bladder continence denied any tongue biting. Patient had a extensive history of seizures patient's seizures are finally under control. I did discuss with neurology at length patient normally gets her antiseizure medications after dialysis. We are getting the levels of Keppra and vimpat. Patient was started on IV Vimpat. Patient to regular hemodialysis is Monday and nephrology was consulted patient will undergo hemodialysis today. Patient apparently had a prolonged postictal period of 5 hours Subjective: Patient is a pleasant 49 years old female with past medical history of end-stage renal disease, diabetes mellitus on 15 units of insulin Levemir at bedtime and history of seizure medication on Keppra 750 mg twice daily and Vimpat 100 mg twice daily, patient presents with breakthrough seizure. Patient is alert and awake today and states that maybe she missed her dose, and that her helped her with medication but was not sure what happened. Also patient noticed to be slow to respond and answer questions with possible some memory problems and difficulties On admission CT of the brain was unremarkable, neurologist recommended MRI however could not be done because of possible nerve stent later that she has, we'll follow-up with the neurologist about further recommendation. Also patient was started on Vimpat IV 75 mg twice daily at Keppra IV 500 mg twice daily while the levels are still pending. Also EEG is pending Patient herself denies other complaints this morning. Vital stable. Labs noted with sodium 133 and potassium 3.4, LDL is elevated at 133. Her sugar was 62 this morning and her insulin lowered from 15 down to 12 units at bedtime Her neurologist as an outpatient is Dr. Huff 11/13/2019 Patient is awake and alert. No other new complaints. No dyspnea. Patient says that she had a stroke about 2 weeks ago with residual left hemiparesis and dysarthria. No more seizure today. EEG showing increased risk of seizure and there is a potential epileptogenic focus in the midline frontal region Patient is followed by neurology and switched to Vimpat 150 mg daily plus extra 10 mg on Monday, Monday and Monday. Also she switched to Keppra 750 mg twice daily. Also she is undergoing hemodialysis today Vitals are stable. Sugar is controlled. 11/14/2019 Patient has no more seizure, neurology evaluated the patient with recommendation for follow-up upon discharge. Patient will be discharged on Vimpat and Keppra, she will need extra doses of Vimpat 100 mg and Keppra 250 mg about 20 minutes after hemodialysis. Also patient will need to follow-up with her neurologist at her primary care doctor. Holter monitor is recommended for her as well as to check for sleep studies. Home health care has been arranged for the patient. Possible discharge in 24-48 hours Objective - Vital Signs Vital signs: Vital Signs Temp 98.1 F 11/14/19 12:48 Pulse 75 11/14/19 12:48 Resp 16 11/14/19 12:48 BP 129/73 11/14/19 12:48 Pulse Ox 99 11/14/19 12:48 Intake & Output 11/13/19 11/14/19 11/14/19 18:59 06:59 18:59 Output Total 4200 Balance -4200 Output: Hemodialysis 2200 Other 2000 Other: Voiding Method Bedside Commode Bedside Commode Diaper Diaper # Voids 1 1 # Bowel Movements 1 - Exam -GENERAL: The patient is alert and oriented x3, but she answers to slowly not in any acute distress. Well developed, well nourished. HEENT: Pupils are round and equally reacting to light. EOMI. No scleral icterus. No conjunctival pallor. Normocephalic, atraumatic. No pharyngeal erythema. No thyromegaly. CARDIOVASCULAR: S1 and S2 present. No murmurs, rubs, or gallops. PULMONARY: Chest is clear to auscultation, no wheezing or crackles. ABDOMEN: Soft, nontender, nondistended, normoactive bowel sounds. No palpable organomegaly. MUSCULOSKELETAL: No joint swelling or deformity. EXTREMITIES: No cyanosis, clubbing, or pedal edema. NEUROLOGICAL: Gross neurological examination did not reveal any focal deficits. SKIN: No rashes. - Labs CBC & Chem 7: 11/11/19 05:45 11/12/19 05:16 Labs: Abnormal Lab Results - Last 24 Hours (Table) 11/11/19 11/13/19 11/13/19 Range/Units 05:45 16:58 20:49 POC Glucose (mg/dL) 237 H 241 H (75-99) mg/dL Hemoglobin A1c 9.5 H (4.0-6.0) % 11/14/19 11/14/19 11/14/19 Range/Units 02:17 07:15 11:20 POC Glucose (mg/dL) 233 H 182 H 209 H (75-99) mg/dL Hemoglobin A1c (4.0-6.0) % Assessment and Plan Assessment: -Breakthrough seizures most probably noncompliance with medications levels of her antiseizure medications are being obtained and Vimpat was switched to IV. Follow-up Kip and Gloria several, follow-up EEG. match up worker consult to help with her taking medication -End-stage renal disease, dialysis dependent secondary to diabetic nephropathy patient will undergo hemodialysis today nephrology was consulted -Type 2 diabetes mellitus patient will be resumed on her home medications and will titrate depending on her requirements of insulin. 4 insulin down to 12 units at bedtime -Hypertension -hypothyroidism -Bipolar disorder -DVT prophylaxis with subcutaneous heparin Prognosis is guarded
[2019-11-15 02:06] LABS: Glucose,Whole Blood 99 mg/dL (75-99)
[2019-11-15 04:22] VITALS: PULSE 73
[2019-11-15 07:09] LABS: Glucose,Whole Blood 92 mg/dL (75-99)
[2019-11-15] MEDS: LACOSAMIDE 50 MG TABLET PO SCH ×2 (09:35→13:26)
[2019-11-15] MEDS: METOPROLOL TARTRATE 25 MG TAB PO SCH (09:35)
[2019-11-15] MEDS: CLOPIDOGREL 75 MG TAB PO SCH (09:35)
[2019-11-15] MEDS: amLODIPine 10 MG TAB PO SCH (09:36)
[2019-11-15] MEDS: PANTOPRAZOLE 40 MG TABLET PO SCH (09:36)
[2019-11-15] MEDS: levETIRAcetam 500 MG TAB PO SCH (09:36)
[2019-11-15] MEDS: HEPARIN SODIUM,PORCINE 5,000 UNIT/ML 1 ML VIAL SQ SCH (09:36)
[2019-11-15] MEDS: INSULIN ASPART (NovoLOG) 100 UNIT/ML VIAL SQ SCH ×2 (09:36→13:25)
[2019-11-15] MEDS: CITALOPRAM HYDROBROMIDE 10 MG TAB PO SCH (09:36)
[2019-11-15 10:28] VITALS: BMI 34.7
[2019-11-15 11:00] LABS: Glucose,Whole Blood 176 mg/dL (75-99)
[2019-11-15 12:04] VITALS: BP 123/57; RESP 20; TEMP 98.3
[2019-11-15] MEDS: levETIRAcetam 250 MG TAB PO SCH (13:26)
--- NOTE | 2019-11-15 13:57 | PN ---
PROGRESS NOTE Patient is seen for followup for end-stage renal disease. She is currently seen on dialysis. Patient is tolerating her treatment well. Blood pressure this morning 136/64, heart rate 73 per minute, she is afebrile. Examination shows no evidence of edema bilateral lower extremities. Patient is awake, alert, oriented x3. GUEST SERVICE REPRESENTATIVE exam is grossly intact. I do not have any current labs available. ASSESSMENT: 1. End-stage renal disease, on hemodialysis on a Monday, Monday, Monday schedule. 2. Breakthrough seizures, being followed by Neurology status post IV Lacosamide. 3. CKD mineral bone disorder. PLAN: Patient is stable for discharge from nephrology standpoint if cleared by Neurology. MMODL / IJN: [id number] /
--- NOTE | 2019-11-15 23:02 | P.DS ---
Providers Date of admission: 11/10/19 23:49 Attending physician: Francine Acosta MD Consults: 11/10/19 23:36 Consult Physician Routine Consulting Provider: Kate Daniel Consult Reason/Comments: Seizure; prolonged post-ictal state Do you want consulting provider notified?: Yes Consult Physician Routine Consulting Provider: Urszula Ludwig Consult Reason/Comments: Dialysis Do you want consulting provider notified?: Yes Primary care physician: Geoffrey Somers Hospital Course: Diagnoses: -Breakthrough seizures most probably noncompliance -End-stage renal disease, dialysis dependent secondary to diabetic nephropathy patient on hemodialysis Monday, Monday and Monday -Type 2 diabetes mellitus on insulin 12 units at bedtime -History of stroke with left-sided hemiparesis, using her walker -Hypertension -hypothyroidism -Bipolar disorder, not in active issue Hospital course: Patient is a pleasant 49-year-old female with end-stage renal disease on hemodialysis and history of CVA in the past came in because of seizure and for prolonged postictal. Patient states that she forgets to take medication. Patient's seizure was witnessed by the . Neurology evaluated the patient, EEG showing increased risk of seizure and there is a potential epileptogenic focus in the midline frontal region At home she was on Keppra 750 mg twice daily and Vimpat 100 mg twice daily, this has been adjusted per neurologist and level II Keppra 500 mg twice daily and Vimpat 100 mg in the morning and 50 mg at bedtime, on the top of that she was prescribed Keppra 250 mg extra doses after each dialysis and Vimpat 100 mg extra doses after each hemodialysis on Monday, Monday and Monday. I explained to the patient extensively her Medication schedule and she agrees with that Also her sugar was on the low side and her home dose of insulin 15 units was adjusted to 12 units at bedtime Patient Doing well with no more seizure activity. Because of her history of left hemiparesis and weakness, she will need help. Physical therapy recommended rehab for her however she declined and she was adamant to go home with home health care and her to help her To remind her taking her medication. MRI/A of the brain was recommended by neurologist but it could not be done because patient has neuro stimulator, eventually patient has been cleared by neurologist for discharge with the recommendation she undergo sleep study and Holter monitor which was installed as an inpatient and mid to follow-up as an outpatient. I called the patient PCP Dr. Somers and discussed the case with him and this recommendation for sleep study, Holter monitor, and also to follow-up the level of Keppra and Vimpat and he kindly took note of these. Patient informed and she agrees with her appointment with Dr. Somers on 11/18 Also patient agrees with her appointment with Dr. Huff, her neurologist appointment on 11/20 states she will follow up. I called the office for Dr. Huff however he was not available to discuss the case, however I left a message with the staff because they told me he has excess to [employer] and he will look into the chart. Patient was eager to go home for the last 2 days. She denies any other sym ptoms. No chest pain or dyspnea, no abdominal pain, no nausea vomiting. No fever Patient was cleared for discharge by neurologist Problems and management plan were discussed with the patient and he verbalized understanding and acceptance Patient was found stable and can be discharged home however he needs follow-up as an outpatient. Patient was instructed to follow up with PCP Dr. Somers and her neurologist Dr. Huff as above and she agrees with the appointments. I spoke with Dr. Somers and discussed the case with him with recommendation for follow-up Keppra and Vimpat, urology follow-up with Dr. Huff 11/19, need sleep study, follow-up Holter monitor and he currently took note of these. Patient agrees with her appointment with Dr. Somers on 11/[address] Huff on 11/20 at states she will follow-up. NB: Pulse prescription could be related from [facility] pharmacy downstairs except for Vimpat, paper prescription is provided for the patient and I talked to the patient and her and they want the patient to be discharged today and the will get Vimpat pills filled up for her today. Risks of noncompliance to medication were explained to the patient including but not limited to recurrence seizure Beba organ dysfunction and/or and she verbalized understanding and acceptance Gen: patient is a AAOx3, no distress CVS: S1-S2, RRR, no murmur Lungs: B/L CTA, no wheezing Abdomen: soft, no distention, no tenderness, positive bowel sounds Extremity: no leg edema or induration -Neuro: Alert awake and oriented 3, chronic left hemiparesis Time spent more than 35 minutes Patient Condition at Discharge: Serious Plan - Discharge Summary Discharge Rx Participant: No New Discharge Prescriptions: New Citalopram Hydrobromide [CeleXA] 10 mg PO DAILY #30 tab levETIRAcetam [Keppra] 250 mg PO MoWeFr #40 tab levETIRAcetam [Keppra] 500 mg PO Q12H #60 tab Atorvastatin [Lipitor] 60 mg PO HS #30 tab amLODIPine [Norvasc] 10 mg PO DAILY #30 tab Pantoprazole [Protonix] 40 mg PO DAILY #30 tablet. Acetaminophen Tab [Tylenol] 650 mg PO Q6HR PRN tab PRN Reason: Mild Pain Or Fever > 100.5 Lacosamide [Vimpat] 50 mg PO HS #30 tablet Lacosamide [Vimpat] 100 mg PO MoWeFr #40 tablet Lacosamide [Vimpat] 100 mg PO DAILY #60 tablet Insulin Detemir (Levemir) [Levemir] 12 unit SQ HS #1 vial Continue Ergocalciferol (Vitamin D2) [Vitamin D2] 50,000 unit PO Q7D Clopidogrel [Plavix] 75 mg PO DAILY Metoprolol Tartrate [Lopressor] 25 mg PO TID #90 tab levETIRAcetam [Keppra] 750 mg PO BID #60 tab Calcium Acetate 2,001 mg PO TID Discontinued Lacosamide [Vimpat] 100 mg PO BID Discharge Medication List Clopidogrel [Plavix] 75 mg PO DAILY 02/12/17 [History] Ergocalciferol (Vitamin D2) [Vitamin D2] 50,000 unit PO Q7D 02/12/17 [History] Metoprolol Tartrate [Lopressor] 25 mg PO TID #90 tab 02/28/19 [Rx] levETIRAcetam [Keppra] 750 mg PO BID #60 tab 06/28/19 [Rx] Calcium Acetate 2,001 mg PO TID 11/11/19 [History] Acetaminophen Tab [Tylenol] 650 mg PO Q6HR PRN tab 11/15/19 [Rx] Atorvastatin [Lipitor] 60 mg PO HS #30 tab 11/15/19 [Rx] Citalopram Hydrobromide [CeleXA] 10 mg PO DAILY #30 tab 11/15/19 [Rx] Insulin Detemir (Levemir) [Levemir] 12 unit SQ HS #1 vial 11/15/19 [Rx] Lacosamide [Vimpat] 50 mg PO HS #30 tablet 11/15/19 [Rx] Lacosamide [Vimpat] 100 mg PO DAILY #60 tablet 11/15/19 [Rx] Lacosamide [Vimpat] 100 mg PO MoWeFr #40 tablet 11/15/19 [Rx] Pantoprazole [Protonix] 40 mg PO DAILY #30 tablet.dr 11/15/19 [Rx] amLODIPine [Norvasc] 10 mg PO DAILY #30 tab 11/15/19 [Rx] levETIRAcetam [Keppra] 250 mg PO MoWeFr #40 tab 11/15/19 [Rx] levETIRAcetam [Keppra] 500 mg PO Q12H #60 tab 11/15/19 [Rx] Follow up Appointment(s)/Referral(s): Geoffrey Somers MD [Primary Care Provider] - 11/19/19 1:00 pm (Telehealth via your cell phone .) [facility], [NON-STAFF] - As Needed Cristhian Huff MD [STAFF PHYSICIAN] - 11/21/19 12:10 pm Darlin Reynoso MD [STAFF PHYSICIAN] - 1 Week (Make appointment with [facility] for follow-up regarding possible sleep apnea - Phone number for sleep center is [phone] - Address: [address] [place] [address]) Patient Instructions/Handouts: Epilepsy (DC) Activity/Diet/Wound Care/Special Instructions: call [facility] at d/c to apply holter monitor [id number] Discharge Disposition: HOME SELF-CARE
[2019-11-17] MEDS ORDERED: ERGOCALCIFEROL 50,000 UNIT CAP PO SCH (09:00)
== END 2019-11-15 16:32 | disposition home health service (06) | DRG 100 ==
LOC: EC 22:48 → 5NMEDONC 23:49
PROVIDERS: ADMIT Internal Medicine; ATTEND Internal Medicine
PROC: 5A1D70Z Performance of Urinary Filtration, Intermittent, Less than 6 Hours Per Day (ICD-10-PCS; principal; 2019-11-11)
DX: G40.409 Other generalized epilepsy and epileptic syndromes, not intractable, without status epilepticus (principal); N18.6 End stage renal disease; I12.0 Hypertensive chronic kidney disease with stage 5 chronic kidney disease or end stage renal disease; I69.354 Hemiplegia and hemiparesis following cerebral infarction affecting left non-dominant side; E83.9 Disorder of mineral metabolism, unspecified; E11.22 Type 2 diabetes mellitus with diabetic chronic kidney disease; E11.40 Type 2 diabetes mellitus with diabetic neuropathy, unspecified; E87.6 Hypokalemia; I69.322 Dysarthria following cerebral infarction; R40.2363 Coma scale, best motor response, obeys commands, at hospital admission; R40.2143 Coma scale, eyes open, spontaneous, at hospital admission; R40.2253 Coma scale, best verbal response, oriented, at hospital admission; T42.76XA Underdosing of unspecified antiepileptic and sedative-hypnotic drugs, initial encounter; E03.9 Hypothyroidism, unspecified; L68.0 Hirsutism; F31.9 Bipolar disorder, unspecified; R32 Unspecified urinary incontinence; E66.01 Morbid (severe) obesity due to excess calories; Z68.34 Body mass index [BMI] 34.0-34.9, adult; Z99.2 Dependence on renal dialysis; Y63.6 Underdosing and nonadministration of necessary drug, medicament or biological substance; Z79.02 Long term (current) use of antithrombotics/antiplatelets; Z79.899 Other long term (current) drug therapy; Z71.3 Dietary counseling and surveillance; Z98.891 History of uterine scar from previous surgery; Z98.890 Other specified postprocedural states; Z87.891 Personal history of nicotine dependence; Z88.0 Allergy status to penicillin
CPT/HCPCS: 80048; 80053; 80061; 80177; 80235; 82306; 82728; 83036; 83970; 84443; 85025; 90935; 93270; 95816; 99285

== ENCOUNTER 2019-12-18 21:50 | Observation (INO) | payer MEDICARE, OTHER ==
[2019-12-18] MEDS ORDERED: SODIUM CHLORIDE 0.9% 1,000 ML IV STA (22:03)
[2019-12-18] MEDS ORDERED: LORazepam 2 MG/ML INJ IV STA (22:03)
--- NOTE | 2019-12-18 22:06 | ED ---
General Adult HPI - General Stated complaint: Seizure,diabetic Time Seen by Provider: 12/18/19 21:52 Source: patient, EMS, RN notes reviewed Mode of arrival: EMS Limitations: altered mental status - History of Present Illness Initial comments: Patient is a pleasant 49-year-old female presenting to the emergency Department with reported to seizures. Further history is limited. Unclear how long it lasted. Patient reportedly is on Keppra for seizures. Patient has difficulty providing further history. - Related Data Home Medications Medication Instructions Recorded Confirmed Clopidogrel [Plavix] 75 mg PO DAILY 02/12/17 11/11/19 Ergocalciferol (Vitamin D2) 50,000 unit PO Q7D 02/12/17 11/11/19 [Vitamin D2] Calcium Acetate 2,001 mg PO TID 11/11/19 11/11/19 Previous Rx's Medication Instructions Recorded Metoprolol Tartrate [Lopressor] 25 mg PO TID #90 tab 02/28/19 Acetaminophen Tab [Tylenol] 650 mg PO Q6HR PRN tab 11/15/19 Atorvastatin [Lipitor] 60 mg PO HS #30 tab 11/15/19 Citalopram Hydrobromide [CeleXA] 10 mg PO DAILY #30 tab 11/15/19 Insulin Detemir (Levemir) [Levemir] 12 unit SQ HS #1 vial 11/15/19 Lacosamide [Vimpat] 50 mg PO HS #30 tablet 11/15/19 Lacosamide [Vimpat] 100 mg PO DAILY #60 tablet 11/15/19 Lacosamide [Vimpat] 100 mg PO MoWeFr #40 tablet 11/15/19 Pantoprazole [Protonix] 40 mg PO DAILY #30 tablet.dr 11/15/19 amLODIPine [Norvasc] 10 mg PO DAILY #30 tab 11/15/19 levETIRAcetam [Keppra] 500 mg PO Q12H #60 tab 11/15/19 Allergies Allergy/AdvReac Type Severity Reaction Status Date / Time Penicillins Allergy Itching Verified 12/18/19 22:07 Review of Systems ROS Statement: Those systems with pertinent positive or pertinent negative responses have been documented in the HPI. ROS Other: All systems not noted in ROS Statement are negative. Limitations: ROS unobtainable due to patients medical condition Past Medical History Past Medical History: Chest Pain / Angina, Diabetes Mellitus, Hypertension, Renal Disease, Seizure Disorder, Thyroid Disorder Additional Past Medical History / Comment(s): dialysis bipolar. Neuropathy History of Any Multi-Drug Resistant Organisms: None Reported Past Surgical History: Section, Tonsillectomy Additional Past Surgical History / Comment(s): fistula Past Anesthesia/Blood Transfusion Reactions: No Reported Reaction Past Psychological History: Bipolar Smoking Status: Former smoker Past Alcohol Use History: Occasional Past Drug Use History: None Reported - Past Family History Father Family Medical History: Unable to Obtain General Exam Limitations: altered mental status General appearance: other (Drowsy) Head exam: Present: atraumatic Eye exam: Present: normal appearance, PERRL Neck exam: Present: normal inspection Respiratory exam: Present: normal lung sounds bilaterally Cardiovascular Exam: Present: regular rate, normal rhythm GI/Abdominal exam: Present: soft. Absent: tenderness Extremities exam: Present: normal inspection Neurological exam: Present: other (Drowsy.) Expanded Neurological exam: Present: protecting the airway Patient oriented to: Present: person, place Motor strength exam: RUE: 4, LUE: 4, RLE: 4, LLE: 4 Eye Response: (4) open spontaneously Motor Response: (6) obeys commands Verbal Response: (4) confused conversation Psychiatric exam: Present: flat affect Skin exam: Present: normal color Course Vital Signs 12/18/19 12/19/19 12/19/19 22:02 02:51 04:15 Temperature 97.1 F L 98.1 F Pulse Rate 96 77 78 Respiratory 18 16 19 Rate Blood Pressure 153/97 147/88 152/77 O2 Sat by Pulse 99 99 97 Oximetry 12/19/19 12/19/19 06:19 07:55 Temperature Pulse Rate 85 84 Respiratory 17 18 Rate Blood Pressure 156/86 146/90 O2 Sat by Pulse 98 100 Oximetry EKG Findings - EKG Comments: EKG Findings:: Normal sinus rhythm 95. [place] 188. QRS 92. QT 398. QTC 500. Normal axis. Normal QRS. No acute ST change. Medical Decision Making - Lab Data Result diagrams: 12/19/19 00:10 12/19/19 00:10 Lab Results 12/18/19 12/19/19 12/19/19 Range/Units 22:09 00:10 00:10 WBC 9.0 (3.8-10.6) k/uL RBC 4.20 (3.80-5.40) m/uL Hgb 12.9 D (11.4-16.0) gm/dL Hct 37.4 (34.0-46.0) % MCV 89.0 (80.0-100.0) fL MCH 30.6 (25.0-35.0) pg MCHC 34.4 (31.0-37.0) g/dL RDW 14.0 (11.5-15.5) % Plt Count 200 (150-450) k/uL Neutrophils % 75 % Lymphocytes % 17 % Monocytes % 5 % Eosinophils % 1 % Basophils % 1 % Neutrophils # 6.8 (1.3-7.7) k/uL Lymphocytes # 1.5 (1.0-4.8) k/uL Monocytes # 0.5 (0-1.0) k/uL Eosinophils # 0.1 (0-0.7) k/uL Basophils # 0.1 (0-0.2) k/uL Sodium 133 L (137-145) mmol/L Potassium 4.3 (3.5-5.1) mmol/L Chloride 90 L (98-107) mmol/L Carbon Dioxide 30 (22-30) mmol/L Anion Gap 13 mmol/L BUN 16 (7-17) mg/dL Creatinine 4.65 H (0.52-1.04) mg/dL Est GFR (CKD-EPI)AfAm 12 (>60 ml/min/1.73 sqM) Est GFR (CKD-EPI)NonAf 10 (>60 ml/min/1.73 sqM) Glucose 311 H (74-99) mg/dL POC Glucose (mg/dL) 320 H (75-99) mg/dL POC Glu Care Transition Manager ID Liana Kaufman A Calcium 9.3 (8.4-10.2) mg/dL Total Bilirubin 0.6 (0.2-1.3) mg/dL AST 30 (14-36) U/L ALT 16 (4-34) U/L Alkaline Phosphatase 94 (38-126) U/L Total Protein 7.7 (6.3-8.2) g/dL Albumin 4.5 (3.5-5.0) g/dL Levetiracetam (3.0-60.0) ug/mL Serum Alcohol <10 mg/dL 12/19/19 Range/Units 00:10 WBC (3.8-10.6) k/uL RBC (3.80-5.40) m/uL Hgb (11.4-16.0) gm/dL Hct (34.0-46.0) % MCV (80.0-100.0) fL MCH (25.0-35.0) pg MCHC (31.0-37.0) g/dL RDW (11.5-15.5) % Plt Count (150-450) k/uL Neutrophils % % Lymphocytes % % Monocytes % % Eosinophils % % Basophils % % Neutrophils # (1.3-7.7) k/uL Lymphocytes # (1.0-4.8) k/uL Monocytes # (0-1.0) k/uL Eosinophils # (0-0.7) k/uL Basophils # (0-0.2) k/uL Sodium (137-145) mmol/L Potassium (3.5-5.1) mmol/L Chloride (98-107) mmol/L Carbon Dioxide (22-30) mmol/L Anion Gap mmol/L BUN (7-17) mg/dL Creatinine (0.52-1.04) mg/dL Est GFR (CKD-EPI)AfAm (>60 ml/min/1.73 sqM) Est GFR (CKD-EPI)NonAf (>60 ml/min/1.73 sqM) Glucose (74-99) mg/dL POC Glucose (mg/dL) (75-99) mg/dL POC Glu Care Transition Manager ID Calcium (8.4-10.2) mg/dL Total Bilirubin (0.2-1.3) mg/dL AST (14-36) U/L ALT (4-34) U/L Alkaline Phosphatase (38-126) U/L Total Protein (6.3-8.2) g/dL Albumin (3.5-5.0) g/dL Levetiracetam 53.4 (3.0-60.0) ug/mL Serum Alcohol mg/dL Disposition Clinical Impression: Seizure Disposition: ADMITTED IP TO THIS HOSP Condition: Stable
[2019-12-18 22:10] LABS: Glucose,Whole Blood 320 mg/dL (75-99)
--- NOTE | 2019-12-19 00:35 | CT ---
EXAMINATION TYPE: CT brain wo con DATE OF EXAM: 12/19/2019 COMPARISON: 10/24/2012 and 02/25/2019 HISTORY: Seizure. CT DLP: 1106.4 mGycm Automated exposure control for dose reduction was used. Exam limited slightly by motion. There is no mass effect nor midline shift. There is no sign of intra cranial hemorrhage. Calvarium appears intact. The skull base is intact. There is no evidence of cereb ral edema. There are multiple areas of hypodensity in the cortex in both cerebellar hemispheres. IMPRESSION: Hypodensities consistent with multiple cerebellar infarcts that measure up to 12 mm. No acute intracr anial abnormality. No change.
[2019-12-19 01:05] LABS: Basophils # (A) 0.1 k/uL (0-0.2); Basophils % (A) 1 %; Eosinophils # (A) 0.1 k/uL (0-0.7); Eosinophils % (A) 1 %; HCT 37.4 % (34.0-46.0); Lymphocytes # (A) 1.5 k/uL (1.0-4.8); Lymphocytes % (A) 17 %; MCH 30.6 pg (25.0-35.0); MCHC 34.4 g/dL (31.0-37.0); Mean Platelet Volume 9.5; Monocytes # (A) 0.5 k/uL (0-1.0); Monocytes % (A) 5 %; Neutrophils # (A) 6.8 k/uL (1.3-7.7); Neutrophils % (A) 75 %; Platelet Count 200 k/uL (150-450)
[2019-12-19 01:06] LABS: HGB 12.9 gm/dL (11.4-16.0)
[2019-12-19 01:20] LABS: ALT 16 U/L (4-34); AST 30 U/L (14-36); African American GFR (CKD) 12 (>60 ml/min/1.73 sqM); Albumin 4.5 g/dL (3.5-5.0); Alcohol <10 mg/dL; Alkaline Phosphatase 94 U/L (38-126); Anion Gap 13 mmol/L; Blood Urea Nitrogen 16 mg/dL (7-17); Calcium 9.3 mg/dL (8.4-10.2); Carbon Dioxide 30 mmol/L (22-30); Chloride 90 mmol/L (98-107); Glucose 311 mg/dL (74-99); Non-African American GFR(CKD) 10 (>60 ml/min/1.73 sqM); Sodium 133 mmol/L (137-145); Total Bilirubin 0.6 mg/dL (0.2-1.3); Total Protein 7.7 g/dL (6.3-8.2)
[2019-12-19] MEDS ORDERED: NALOXONE 0.4 MG/ML 1 ML VIAL IV PRN (01:48)
[2019-12-19] MEDS ORDERED: ONDANSETRON 4 MG/2 ML VIAL IVP PRN (01:48)
[2019-12-19] MEDS ORDERED: ACETAMINOPHEN TAB 325 MG TAB PO PRN (01:51)
[2019-12-19 02:22] LABS: Potassium 4.3 mmol/L (3.5-5.1)
[2019-12-19] MEDS: SODIUM CHLORIDE 0.9% 1,000 ML IV SCH ×2 (06:17→13:27)
[2019-12-19] MEDS: amLODIPine 10 MG TAB PO SCH (08:40)
[2019-12-19] MEDS: CALCIUM ACETATE 667 MG TAB PO SCH ×3 (08:40→17:01)
[2019-12-19] MEDS: CLOPIDOGREL 75 MG TAB PO SCH (08:41)
[2019-12-19] MEDS: METOPROLOL TARTRATE 25 MG TAB PO SCH ×3 (08:41→21:08)
[2019-12-19] MEDS: PANTOPRAZOLE 40 MG TABLET PO SCH (08:41)
[2019-12-19] MEDS: LACOSAMIDE 50 MG TABLET PO SCH (08:51)
[2019-12-19] MEDS ORDERED: FAMOTIDINE 20 MG TAB PO SCH (09:00)
--- NOTE | 2019-12-19 12:54 | P.CNNES ---
History of Present Illness Consult date: 12/19/19 Reason for Consult: Breakthrough seizures Chief complaint: Increasing seizure activity History of Present Illness: This is a new neurology consult for Gerri a 49-year-old female with a history of childhood onset medically refractory epilepsy and history of stroke involving residual deficits: Dense left upper extremity hemiplegia and hemiparesis of the left leg. The patient presented with increasing seizure activity. The patient was recently admitted here and had medications adjusted. She is again back on a older dosage of Keppra 750 twice a day. This was adjusted to 500 twice a day prior to her last discharged due to her kidney function. As seen again her kidney function is elevated creatinine 4.65. Patient is on hemodialysis. We are not sure why she ended up going back to this higher dosage but pharmacy was contacted today and we readjusted the Keppra back to her 500 every 12. Patient is also on Vimpat as well. This patient has multifactorial reasons for lowered seizure threshold. Patient has significant stroke risk factors and is currently on Plavix vitamin D3 metoprolol and atorvastatin. She also has an underlying endocrine disorder and thyroid disorder. She has the body habitus charac teristic of polycystic ovary disease. Obesity significant hirsutism. To date because of the hand MA she still has not been able to be tested for obstructive sleep apnea. We suspected on her last visit that obstructive sleep apnea could be lowering her seizure threshold leading to chronic sleep deprivation. I was at the bedside reviewing preliminary recording of her EEG area the patient appears to have generalized polyspike and slow-wave discharges. This pattern is characteristic for primary generalized epilepsy. The patient currently follows Dr. Huff outpatient neurologist. I will plan to be in contact with him today to discuss valproic acid is a better medication can Keppra due to her kidney function. Valproic acid is only clear to the liver and is an excellent anticonvulsant for primary generalized epilepsy. This is also used frequently and bipolar disease which this patient has a history of. The patient denies having any recent falls or strokelike symptoms. She has been very tired and sleep deprived which again probably lowered her seizure threshold. On admission her sodium was noted to be low along with her chloride next Computed tomography scan of the head shows hypodensities with multiple cerebellar infarcts up to 12 mm. Past Medical History Past Medical History: Chest Pain / Angina, Diabetes Mellitus, Hypertension, Kale al Disease, Seizure Disorder, Thyroid Disorder Additional Past Medical History / Comment(s): dialysis bipolar. Neuropathy History of Any Multi-Drug Resistant Organisms: None Reported Past Surgical History: Section, Tonsillectomy Additional Past Surgical History / Comment(s): fistula Past Anesthesia/Blood Transfusion Reactions: No Reported Reaction Past Psychological History: Bipolar Smoking Status: Former smoker Past Alcohol Use History: Occasional Past Drug Use History: None Reported - Past Family History Father Family Medical History: Unable to Obtain Medications and Allergies Home Medications Medication Instructions Recorded Confirmed Type Clopidogrel [Plavix] 75 mg PO DAILY 02/12/17 11/11/19 History Ergocalciferol (Vitamin D2) 50,000 unit PO Q7D 02/12/17 11/11/19 History [Vitamin D2] Metoprolol Tartrate [Lopressor] 25 mg PO TID #90 tab 02/28/19 11/11/19 Rx levETIRAcetam [Keppra] 750 mg PO BID #60 tab 06/28/19 11/11/19 Rx Calcium Acetate 2,001 mg PO TID 11/11/19 11/11/19 History Acetaminophen Tab [Tylenol] 650 mg PO Q6HR PRN tab 11/15/19 Rx Atorvastatin [Lipitor] 60 mg PO HS #30 tab 11/15/19 Rx Citalopram Hydrobromide [CeleXA] 10 mg PO DAILY #30 tab 11/15/19 Rx Insulin Detemir (Levemir) [Levemir] 12 unit SQ HS #1 vial 11/15/19 Rx Lacosamide [Vimpat] 50 mg PO HS #30 tablet 11/15/19 Rx Lacosamide [Vimpat] 100 mg PO DAILY #60 tablet 11/15/19 Rx Lacosamide [Vimpat] 100 mg PO MoWeFr #40 tablet 11/15/19 Rx Pantoprazole [Protonix] 40 mg PO DAILY #30 tablet.dr 11/15/19 Rx amLODIPine [Norvasc] 10 mg PO DAILY #30 tab 11/15/19 Rx levETIRAcetam [Keppra] 250 mg PO MoWeFr #40 tab 11/15/19 Rx levETIRAcetam [Keppra] 500 mg PO Q12H #60 tab 11/15/19 Rx Allergies Allergy/AdvReac Type Severity Reaction Status Date / Time Penicillins Allergy Itching Verified 12/18/19 22:07 Physical Examination - Vital Signs Vital Signs: Vital Signs Temp Pulse Pulse Resp BP BP Pulse Ox 12/19/19 11:11 98 F 79 18 171/73 99 12/19/19 09:33 98.1 F 84 18 146/90 100 12/19/19 07:55 84 18 146/90 100 12/19/19 06:19 85 17 156/86 98 12/19/19 04:15 98.1 F 78 19 152/77 97 12/19/19 02:51 77 16 147/88 99 12/18/19 22:02 97.1 F L 96 18 153/97 99 Intake and Output 12/18/19 12/19/19 12/19/19 22:59 06:59 14:59 Other: Weight 72.575 kg 72.575 kg Gen. exam: Patient drowsy no acute distress next line HEENT clear sclera clear oropharynx neck supple. Pulses radial pedal pulses are equal and symmetric Extremities no edema noted in the hands or feet neurologic exam mental status: Awake speech is slow but fluent. Patient is oriented to time place person and situation. Pupils: 2 mm equally react to light and accommodation Cranial nerve exam: Cranial nerves III through XII are intact. Motor examination: Strength is 5 out of 5 in the right upper and lower extremity. There is left upper extremity hemiparesis and left lower extremity hemiparesis. Sensory examination grossly intact to light touch throughout. Coordination testing: Intact to finger to nose testing on the right hand. Patient has significant hemiparesis of left hand that she is unable to execute Movement. Gait examination deferred Results - Laboratory Findings CBC and BMP: 12/19/19 00:10 12/19/19 00:10 Abnormal Lab Findings: Abnormal Labs 12/18/19 12/19/19 22:09 00:10 Sodium 133 L Chloride 90 L Creatinine 4.65 H Glucose 311 H POC Glucose (mg/dL) 320 H Assessment and Plan Assessment: Assessment: This is a 49-year-old female who has had frequent admissions to the hospital this past year for breakthrough seizures. She has complex medical history that involves prior stroke, childhood onset medically refractive epilepsy, hypertension diabetes end-stage renal disease on hemodialysis and thyroid disease. On her last admission her medications were adjusted to lower her Keppra down to an appropriate dose for a renal patient on dialysis and Vimpat was adjusted as well. This patient accidentally got put back on the higher dose of Keppra which is not appropriate for patient with end-stage renal disease. This is now been adjusted with pharmacy back to 500 every 12. A brief preliminary review of her EEG shows that while she is awake she has 2-3 second bursts of generalized polyspike and slow-wave discharges. This is seen commonly in primary epilepsy. I will be reaching out to her neurologist today to discuss starting valproic acid which is cleared by the liver. I strongly suggest that I he works with her tapering her off Keppra. At this stage of her renal disease she should not be on Keppra. Plan 1. Follow-up with EEG completed today 2. Adjust Keppra back to 500 twice a day. Patient will receive only 250 mg tonight since she artery receive 750 mg this morning. 3. Reach out to Dr. Huff neurologist. 4. Continue with home meds 5. Maintain aspiration precautions and seizure precautions in place. 6. Ativan 1 mg IV for any seizure lasting more than 3 minutes. Contact hospitalist and neurologist if this occurs. 7. No need for MRI studies as this patient has had prior studies on prior admissions. 8. Continue with Vimpat at current home doesn't dosing. Follow-up with glucose a mild level. This patient's prognosis remains guarded. Further recommendations will be made as this case evolves. Please note there will not be neurology coverage on Monday or Monday. If there is any anticipation for need for transfer please contact Dr. Lainez discussed this as soon as possible.
--- NOTE | 2019-12-19 14:20 | P.HPIM ---
History of Present Illness Patient is a very pleasant 57-year-old female with the history of refractory epilepsy in the end-stage renal disease and right-sided hemiplegia came in with complaints of seizure patient has multiple last physician for breakthrough s eizures multiple medication changes were made patient follows up with the neurologist as as an outpatient hasn't been following with him for last 6 months. Patient the Prior dose was readjusted and patient and it is getting wrong dose of Keppra and taking that medication. Patient the is hemodialysis dependent makes her situation even more complicated leading to breakthrough seizures as some of the antiseizure medications either accumulate are dialyzable. Neurology evaluated the patient and that repeating EEG and cutting down the Keppra dose planning on weaning this off completely and starting the patient on valproic acid. Review of Systems REVIEW OF SYSTEMS: CONSTITUTIONAL: No fever, no malaise, no fatigue. HEENT: No recent visual problems or hearing problems. Denied any sore throat. CARDIOVASCULAR: No chest pain, orthopnea, PND, no palpitations, no syncope. PULMONARY: No shortness of breath, no cough, no hemoptysis. GASTROINTESTINAL: No diarrhea, no nausea, no vomiting, no abdominal pain. NEUROLOGICAL: No headaches, no weakness, no numbness. HEMATOLOGICAL: Denies any bleeding or petechiae. GENITOURINARY: Denies any burning micturition, frequency, or urgency. MUSCULOSKELETAL/RHEUMATOLOGICAL: Denies any joint pain, swelling, or any muscle pain. ENDOCRINE: Denies any polyuria or polydipsia. The rest of the 14-point review of systems is negative. Past Medical History Past Medical History: Chest Pain / Angina, Diabetes Mellitus, Hypertension, Renal Disease, Seizure Disorder, Thyroid Disorder Additional Past Medical History / Comment(s): dialysis bipolar. Neuropathy History of Any Multi-Drug Resistant Organisms: None Reported Past Surgical History: Section, Tonsillectomy Additional Past Surgical History / Comment(s): fistula Past Anesthesia/Blood Transfusion Reactions: No Reported Reaction Past Psychological History: Bipolar Smoking Status: Former smoker Past Alcohol Use History: Occasional Past Drug Use History: None Reported - Past Family History Father Family Medical History: Unable to Obtain Medications and Allergies Home Medications Medication Instructions Recorded Confirmed Type Clopidogrel [Plavix] 75 mg PO DAILY 02/12/17 11/11/19 History Ergocalciferol (Vitamin D2) 50,000 unit PO Q7D 02/12/17 11/11/19 History [Vitamin D2] Metoprolol Tartrate [Lopressor] 25 mg PO TID #90 tab 02/28/19 11/11/19 Rx levETIRAcetam [Keppra] 750 mg PO BID #60 tab 06/28/19 11/11/19 Rx Calcium Acetate 2,001 mg PO TID 11/11/19 11/11/19 History Acetaminophen Tab [Tylenol] 650 mg PO Q6HR PRN tab 11/15/19 Rx Atorvastatin [Lipitor] 60 mg PO HS #30 tab 11/15/19 Rx Citalopram Hydrobromide [CeleXA] 10 mg PO DAILY #30 tab 11/15/19 Rx Insulin Detemir (Levemir) [Levemir] 12 unit SQ HS #1 vial 11/15/19 Rx Lacosamide [Vimpat] 50 mg PO HS #30 tablet 11/15/19 Rx Lacosamide [Vimpat] 100 mg PO DAILY #60 tablet 11/15/19 Rx Lacosamide [Vimpat] 100 mg PO MoWeFr #40 tablet 11/15/19 Rx Pantoprazole [Protonix] 40 mg PO DAILY #30 tablet.dr 11/15/19 Rx amLODIPine [Norvasc] 10 mg PO DAILY #30 tab 11/15/19 Rx levETIRAcetam [Keppra] 250 mg PO MoWeFr #40 tab 11/15/19 Rx levETIRAcetam [Keppra] 500 mg PO Q12H #60 tab 11/15/19 Rx Allergies Allergy/AdvReac Type Severity Reaction Status Date / Time Penicillins Allergy Itching Verified 12/18/19 22:07 Physical Exam Vitals: Vital Signs Temp Pulse Pulse Resp BP BP Pulse Ox 12/19/19 11:11 98 F 79 18 171/73 99 12/19/19 09:33 98.1 F 84 18 146/90 100 12/19/19 07:55 84 18 146/90 100 12/19/19 06:19 85 17 156/86 98 12/19/19 04:15 98.1 F 78 19 152/77 97 12/19/19 02:51 77 16 147/88 99 12/18/19 22:02 97.1 F L 96 18 153/97 99 Intake and Output 12/18/19 12/19/19 12/19/19 22:59 06:59 14:59 Intake Total 0 Output Total 0 Balance 0 Intake: Blood Product 0 Output: Urine 0 Other: Weight 72.575 kg 72.575 kg PHYSICAL EXAMINATION: GENERAL: The patient is alert and oriented x3, not in any acute distress. Well developed, well nourished. sHe does have hirsutism HEENT: Pupils are round and equally reacting to light. EOMI. No scleral icterus. No conjunctival pallor. Normocephalic, atraumatic. No pharyngeal erythema. No thyromegaly. CARDIOVASCULAR: S1 and S2 present. No murmurs, rubs, or gallops. PULMONARY: Chest is clear to auscultation, no wheezing or crackles. ABDOMEN: Soft, nontender, nondistended, normoactive bowel sounds. No palpable organomegaly. MUSCULOSKELETAL: No joint swelling or deformity. EXTREMITIES: No cyanosis, clubbing, or pedal edema. NEUROLOGICAL: Gross neurological examination did not reveal any focal deficits. SKIN: No rashes. Results CBC & Chem 7: 12/19/19 00:10 12/19/19 00:10 Labs: Abnormal Lab Results - Last 24 Hours (Table) 12/18/19 12/19/19 Range/Units 22:09 00:10 Sodium 133 L (137-145) mmol/L Chloride 90 L (98-107) mmol/L Creatinine 4.65 H (0.52-1.04) mg/dL Glucose 311 H (74-99) mg/dL POC Glucose (mg/dL) 320 H (75-99) mg/dL Thrombosis Risk Factor Assmnt - Choose All That Apply Any of the Below Risk Factors Present?: Yes Each Factor Represents 1 point: Age 41-60 years, Obesity (BMI >25) Other Risk Factors: No Thrombosis Risk Factor Assessment Total Risk Factor Score: 2 Thrombosis Risk Factor Assessment Level: Low Risk Assessment and Plan Plan: Breakthrough seizures: Patient will be continued on Vimpat valproic acid is being added and patient is being weaned weaned off Right this time. -End-stage renal disease hemodialysis dependent ration to will undergo hemodialy sis as scheduled -Type 2 diabetes mellitus -Hypertension -Hypothyroidism -Bipolar disorder -DVT prophylaxis with subcutaneous heparin
--- NOTE | 2019-12-19 15:31 | EEG ---
ELECTROENCEPHALOGRAM REPORT DATE OF STUDY: 12/19/2019. HISTORY: This is an inpatient EEG performed on a 49-year-old female with a known history of childhood-onset epilepsy who again was admitted for frequent breakthrough seizures. She was just last hospitalized in October, at which time her Keppra dose was lowered due to her elevated creatinine. This patient is a hemodialysis patient. This patient's EEGs are primarily generalized tonic-clonic seizures. Current medications are Vimpat and Keppra. TECHNICAL REPORT: This is an inpatient EEG performed on the [facility] EEG monitor with electrodes placed according to the international 10-20 system and a single EKG channel. Simultaneous video EEG monitoring was performed. This EEG was reviewed in both longitudinal bipolar common average referential and transverse montages. Photic stimulation was performed. Hyperventilation was not performed. The recording begins with the patient drowsy. Frequently throughout the recording she waxes and wanes between quiet wakefulness which is associated with a low voltage 8-9 Hz posterior-dominant rhythm with low amplitude beta activity anteriorly and centrally. Drowsiness is associated with an attenuation of the background rhythm and rare vertex waves. The patient did achieve stage II sleep, which was associated with sleep spindles and frequent vertex sharp transients. Both during wakefulness, drowsiness and sleep, there were frequent bursts of 2-3 seconds of generalized high-amplitude polyspike and single-spike and slow wave discharges. These occurred at a rate of 1-2 cycles per second. They were not associated with any clinical movement. Photic stimulation was performed at various flash frequencies and failed to elicit a consistent driving response. IMPRESSION: This is an abnormal EEG due to the frequent epileptiform activity noted occurring both during wakefulness and drowsiness. This EEG is not unsimilar to prior EEG studies. No clinical seizures occurred. No abnormalities were noted in the EKG. Further medical management is recommended along serial EEGs and/or if clinically indicated, a more prolonged overnight study. MMODL / IJN: [id number] /
[2019-12-19 16:34] LABS: Glucose,Whole Blood 382 mg/dL (75-99)
[2019-12-19] MEDS: INSULIN ASPART (NovoLOG) 100 UNIT/ML VIAL SQ SCH ×2 (17:00→21:08)
[2019-12-19] MEDS: HEPARIN SODIUM,PORCINE 5,000 UNIT/ML 1 ML VIAL SQ SCH (20:20)
[2019-12-19 20:30] LABS: Glucose,Whole Blood 143 mg/dL (75-99)
[2019-12-19] MEDS ORDERED: LACOSAMIDE 50 MG TABLET PO SCH (21:00)
[2019-12-19] MEDS ORDERED: ATORVASTATIN 20 MG TAB PO SCH (21:00)
[2019-12-19] MEDS ORDERED: INSULIN DETEMIR (LEVEMIR) 100 UNIT/ML SYR SQ SCH (21:00)
[2019-12-19] MEDS ORDERED: levETIRAcetam 250 MG TAB PO ONE (21:00)
[2019-12-19] MEDS: DIVALPROEX ER 500 MG TAB.ER.24H PO SCH (23:49)
[2019-12-20 04:13] VITALS: PULSE 73
[2019-12-20 06:44] LABS: Glucose,Whole Blood 103 mg/dL (75-99)
--- NOTE | 2019-12-20 07:40 | P.CEMON ---
Event monitor shows sinus rhythm Sinus tachycardia Occasional premature beats No bradycardia arrhythmias tachyarrhythmias No specific symptoms reported
[2019-12-20] MEDS: INSULIN ASPART (NovoLOG) 100 UNIT/ML VIAL SQ SCH ×2 (08:20→13:07)
[2019-12-20] MEDS: CALCIUM ACETATE 667 MG TAB PO SCH ×2 (08:27→11:55)
[2019-12-20] MEDS: amLODIPine 10 MG TAB PO SCH (08:28)
[2019-12-20] MEDS: HEPARIN SODIUM,PORCINE 5,000 UNIT/ML 1 ML VIAL SQ SCH (08:28)
[2019-12-20] MEDS: PANTOPRAZOLE 40 MG TABLET PO SCH (08:28)
[2019-12-20] MEDS: LACOSAMIDE 50 MG TABLET PO SCH (08:28)
[2019-12-20] MEDS: METOPROLOL TARTRATE 25 MG TAB PO SCH (08:28)
[2019-12-20] MEDS: CLOPIDOGREL 75 MG TAB PO SCH (08:28)
[2019-12-20] MEDS: DIVALPROEX ER 500 MG TAB.ER.24H PO SCH (08:44)
[2019-12-20] MEDS ORDERED: levETIRAcetam 500 MG TAB PO SCH (09:00)
[2019-12-20] MEDS ORDERED: FAMOTIDINE 20 MG TAB PO SCH (09:00)
[2019-12-20] MEDS ORDERED: ERGOCALCIFEROL 50,000 UNIT CAP PO SCH (09:00)
[2019-12-20 09:05] VITALS: RESP 18
[2019-12-20 11:51] LABS: Glucose,Whole Blood 303 mg/dL (75-99)
--- NOTE | 2019-12-20 12:00 | P.DS ---
Providers Date of admission: 12/19/19 01:48 Attending physician: Mehrdad Mohan Consults: 12/19/19 01:49 Consult Physician Routine Consulting Provider: Scarlett Lainez Consult Reason/Comments: Seizure with prolonged post-ictal period Do you want consulting provider notified?: Yes Primary care physician: Geoffrey Somers [facility] Course: 57-year-old female with the history of refractory epilepsy in the end-stage renal disease and right-sided hemiplegia came in with complaints of seizure patient has multiple last physician for breakthrough seizures multiple medication changes were made patient follows up with the neurologist as as an outpatient hasn't been following with him for last 6 months. Patient the Prior dose was readjusted and patient and it is getting wrong dose of Keppra and taking that medication. Patient the is hemodialysis dependent makes her situation even more complicated leading to breakthrough seizures as some of the antiseizure medications either accumulate are dialyzable. Neurology evaluated the patient and that repeating EEG and cutting down the Keppra dose planning on weaning this off completely and starting the patient on valproic acid. 12/20/2019 Patient is seizure free neurologist to try to convince her to take valproic acid patient is not agreeable to take valproic acid and patient is willing to take rectal Valium as needed for seizures patient will follow up closely with her neurologist Dr. Sheikh and will be discharged today. PHYSICAL EXAMINATION: GENERAL: The patient is alert and oriented x3, not in any acute distress. Well developed, well nourished. sHe does have hirsutism HEENT: Pupils are round and equally reacting to light. EOMI. No scleral icterus. No conjunctival pallor. Normocephalic, atraumatic. No pharyngeal erythema. No thyromegaly. CARDIOVASCULAR: S1 and S2 present. No murmurs, rubs, or gallops. PULMONARY: Chest is clear to auscultation, no wheezing or crackles. ABDOMEN: Soft, nontender, nondistended, normoactive bowel sounds. No palpable organomegaly. MUSCULOSKELETAL: No joint swelling or deformity. EXTREMITIES: No cyanosis, clubbing, or pedal edema. NEUROLOGICAL: Gross neurological examination did not reveal any focal deficits. SKIN: No rashes. Assessment and Plan Plan: Breakthrough seizures: Management as mentioned above -End-stage renal disease hemodialysis dependent ration to will undergo hemodialysis as scheduled -Type 2 diabetes mellitus -Hypertension -Hypothyroidism -Bipolar disorder -DVT prophylaxis with subcutaneous heparin Patient Condition at Discharge: Stable Plan - Discharge Summary Discharge Rx Participant: No New Discharge Prescriptions: Continue Ergocalciferol (Vitamin D2) [Vitamin D2] 50,000 unit PO Q7D Clopidogrel [Plavix] 75 mg PO DAILY Metoprolol Tartrate [Lopressor] 25 mg PO TID #90 tab Calcium Acetate 2,001 mg PO TID Citalopram Hydrobromide [CeleXA] 10 mg PO DAILY #30 tab levETIRAcetam [Keppra] 500 mg PO Q12H #60 tab Atorvastatin [Lipitor] 60 mg PO HS #30 tab amLODIPine [Norvasc] 10 mg PO DAILY #30 tab Pantoprazole [Protonix] 40 mg PO DAILY #30 tablet. Acetaminophen Tab [Tylenol] 650 mg PO Q6HR PRN tab PRN Reason: Mild Pain Or Fever > 100.5 Lacosamide [Vimpat] 50 mg PO HS #30 tablet Lacosamide [Vimpat] 100 mg PO MoWeFr #40 tablet Lacosamide [Vimpat] 100 mg PO DAILY #60 tablet Insulin Detemir (Levemir) [Levemir] 12 unit SQ HS #1 vial Discontinued levETIRAcetam [Keppra] 750 mg PO BID #60 tab levETIRAcetam [Keppra] 250 mg PO MoWeFr #40 tab Discharge Medication List Clopidogrel [Plavix] 75 mg PO DAILY 02/12/17 [History] Ergocalciferol (Vitamin D2) [Vitamin D2] 50,000 unit PO Q7D 02/12/17 [History] Metoprolol Tartrate [Lopressor] 25 mg PO TID #90 tab 02/28/19 [Rx] Calcium Acetate 2,001 mg PO TID 11/11/19 [History] Acetaminophen Tab [Tylenol] 650 mg PO Q6HR PRN tab 11/15/19 [Rx] Atorvastatin [Lipitor] 60 mg PO HS #30 tab 11/15/19 [Rx] Citalopram Hydrobromide [CeleXA] 10 mg PO DAILY #30 tab 11/15/19 [Rx] Insulin Detemir (Levemir) [Levemir] 12 unit SQ HS #1 vial 11/15/19 [Rx] Lacosamide [Vimpat] 50 mg PO HS #30 tablet 11/15/19 [Rx] Lacosamide [Vimpat] 100 mg PO DAILY #60 tablet 11/15/19 [Rx] Lacosamide [Vimpat] 100 mg PO MoWeFr #40 tablet 11/15/19 [Rx] Pantoprazole [Protonix] 40 mg PO DAILY #30 tablet. 11/15/19 [Rx] amLODIPine [Norvasc] 10 mg PO DAILY #30 tab 11/15/19 [Rx] levETIRAcetam [Keppra] 500 mg PO Q12H #60 tab 11/15/19 [Rx] Follow up Appointment(s)/Referral(s): Geoffrey Somers MD [Primary Care Provider] - 12/25/19 10:30 am Cristhian Huff MD [STAFF PHYSICIAN] - 12/24/19 1:20 pm Activity/Diet/Wound Care/Special Instructions: Please make sure to keep follow up appointment with Dr. Huff. He will see you next week. However, per him, if appointment is NOT kept, patient will be discharged from physicians practice. Discharge Disposition: HOME SELF-CARE
[2019-12-20 12:04] VITALS: BP 149/79; TEMP 98.1
--- NOTE | 2019-12-24 14:04 | CDI ---
Outpatient Documentation Clarification Form Date: 12/24/19 CDS/Industrial Truck Mechanic Name: Noemi Mc Phone: If any questions, call Rosanna Holt Ship Carpenter at [phone] Patient Name: Gerri Duke Admit Date: 12/19/19 Discharge: Date 12/20/19 ATTENTION: The [facility] Coding Staff appreciate your assistance in clarifying documentation. Please respond to the clarification below the line at the bottom and electronically sign. The [facility] Coding staff will review the response and follow-up if needed. Please note: Queries are made part of the Legal Health Record. If you have any questions, please contact the Ship Carpenter. Dear Dr. Mccabe: Please provide clarification as to the laterality of the patient's hemiplegia. H & P states right-sided hemiplegia and Consult documents left-sided hemplegia. In order to code to the most specificity, please clarify. Thank you for your kind consideration. No residual weakness MTDD
== END 2019-12-20 15:28 | disposition home or self-care (01) ==
LOC: EC 21:50 → 6NMEDSUR 12-19 01:48 → 1SOBS 12-19 08:50
PROVIDERS: ADMIT Hospitalist; ATTEND Hospitalist
DX: G40.409 Other generalized epilepsy and epileptic syndromes, not intractable, without status epilepticus (principal); I12.0 Hypertensive chronic kidney disease with stage 5 chronic kidney disease or end stage renal disease; E11.22 Type 2 diabetes mellitus with diabetic chronic kidney disease; N18.6 End stage renal disease; Z99.2 Dependence on renal dialysis; I69.351 Hemiplegia and hemiparesis following cerebral infarction affecting right dominant side; E11.40 Type 2 diabetes mellitus with diabetic neuropathy, unspecified; L68.0 Hirsutism; Z87.891 Personal history of nicotine dependence; R41.82 Altered mental status, unspecified; E03.9 Hypothyroidism, unspecified; F31.9 Bipolar disorder, unspecified; E66.9 Obesity, unspecified; Z68.28 Body mass index [BMI] 28.0-28.9, adult; Z79.02 Long term (current) use of antithrombotics/antiplatelets; Z79.4 Long term (current) use of insulin; Z79.899 Other long term (current) drug therapy; Z88.0 Allergy status to penicillin; Z03.818 Encounter for observation for suspected exposure to other biological agents ruled out
CPT/HCPCS: 96372 ×2; 96374; 99285; 36415 ×2; 95816; 93005; 80053; 80177; 85025; 70450; G0378 ×2; G0480; U0003; J2060; J1644 ×2; 80320

== ENCOUNTER 2019-12-26 11:40 | Inpatient (IN) | payer MEDICARE, OTHER ==
[2019-12-26] MEDS ORDERED: levETIRAcetam IV 1,000 MG in SALINE 1 100ML.BAG IVPB STA (11:42)
[2019-12-26] MEDS ORDERED: NALOXONE 0.4 MG/ML 1 ML VIAL IV PRN ×2 (11:46→16:07)
--- NOTE | 2019-12-26 11:46 | ED ---
General Adult HPI - General Source: RN notes reviewed <Jimbo Barrera - Last Filed: 12/26/19 16:02> <Jacinta Berry - Last Filed: 12/29/19 16:32> - General Stated complaint: Seizure Time Seen by Provider: 12/26/19 11:42 - History of Present Illness Initial comments: 49-year-old female with a past medical history of diabetes mellitus, dialysis, type or disorder, hypertension, seizure disorder presents to the emergency department for a chief complaint of seizures. Patient has a past medical history of seizures and currently takes Keppra and Vimpat. According doesn't patient has been taking these as directed. Patient was at her primary care provider's office when she had a seizure. A neurostimulator was used to open the seizure. PCP reported to EMS the patient usually remains post ictal from anywhere between 2-4 hours.Patient has no other complaints at this time including shortness of breath, chest pain, abdominal pain, nausea or vomiting, headache, or visual changes. (Jimbo Barrera) - Related Data Home Medications Medication Instructions Recorded Confirmed Clopidogrel [Plavix] 75 mg PO DAILY 02/12/17 12/26/19 Ergocalciferol (Vitamin D2) 50,000 unit PO Q7D 02/12/17 12/26/19 [Vitamin D2] Calcium Acetate 2,001 mg PO AC-TID 11/11/19 12/26/19 Atorvastatin [Lipitor] 20 mg PO PC-LUNCH 12/26/19 12/26/19 Atorvastatin [Lipitor] 40 mg PO HS 12/26/19 12/26/19 Insulin Glargine [Lantus] 12 unit INJ HS 12/26/19 12/26/19 Metoprolol Tartrate 25 mg PO BID 12/27/19 12/27/19 Previous Rx's Medication Instructions Recorded Acetaminophen Tab [Tylenol] 650 mg PO Q6HR PRN tab 11/15/19 Citalopram Hydrobromide [CeleXA] 10 mg PO DAILY #30 tab 11/15/19 Pantoprazole [Protonix] 40 mg PO DAILY #30 tablet. 11/15/19 amLODIPine [Norvasc] 10 mg PO DAILY #30 tab 11/15/19 Lacosamide [Vimpat] 100 mg PO BID tablet 12/28/19 Lacosamide [Vimpat] 100 mg PO MoWeFr@1400 tablet 12/28/19 levETIRAcetam [Keppra] 250 mg PO MoWeFr@1400 tab 12/28/19 levETIRAcetam [Keppra] 500 mg PO Q12HR tab 12/28/19 Allergies Allergy/AdvReac Type Severity Reaction Status Date / Time Penicillins Allergy Itching Verified 12/26/19 22:57 Review of Systems ROS Other: All systems not noted in ROS Statement are negative. <Jimbo Barrera P - Last Filed: 12/26/19 16:02> ROS Other: All systems not noted in ROS Statement are negative. <Jacinta Berry - Last Filed: 12/29/19 16:32> ROS Statement: Those systems with pertinent positive or pertinent negative responses have been documented in the HPI. Past Medical History Past Medical History: Chest Pain / Angina, Diabetes Mellitus, Hypertension, Renal Disease, Seizure Disorder, Thyroid Disorder Additional Past Medical History / Comment(s): dialysis bipolar. Neuropathy History of Any Multi-Drug Resistant Organisms: None Reported Past Surgical History: Section, Tonsillectomy Additional Past Surgical History / Comment(s): fistula Past Anesthesia/Blood Transfusion Reactions: No Reported Reaction Past Psychological History: Bipolar Smoking Status: Former smoker Past Alcohol Use History: Occasional Past Drug Use History: None Reported - Past Family History Father Family Medical History: Unable to Obtain <Jimbo Barrera P - Last Filed: 12/26/19 16:02> General Exam General appearance: alert, in no apparent distress Head exam: Present: atraumatic, normocephalic, normal inspection Eye exam: Present: normal appearance, PERRL, EOMI. Absent: scleral icterus, conjunctival injection, periorbital swelling ENT exam: Present: normal exam, mucous membranes moist Neck exam: Present: normal inspection, full ROM. Absent: tenderness, meningismus, lymphadenopathy Respiratory exam: Present: normal lung sounds bilaterally. Absent: respiratory distress, wheezes, rales, rhonchi, stridor Cardiovascular Exam: Present: regular rate, normal rhythm, normal heart sounds. Absent: systolic murmur, diastolic murmur, rubs, gallop, clicks GI/Abdominal exam: Present: soft, normal bowel sounds. Absent: distended, tenderness, guarding, rebound, rigid Neurological exam: Present: alert <Jimbo Barrera - Last Filed: 12/26/19 16:02> Course Vital Signs 12/26/19 12/26/19 12/26/19 11:40 13:00 15:37 Temperature 97.0 F L 98.6 F Pulse Rate 106 H 87 82 Respiratory 15 15 Rate Blood Pressure 161/100 152/96 O2 Sat by Pulse 99 98 Oximetry 12/26/19 12/26/19 15:50 16:52 Temperature 97.5 F L Pulse Rate 93 93 Respiratory 18 Rate Blood Pressure 138/89 O2 Sat by Pulse 96 Oximetry EKG Findings - EKG Comments: EKG Findings:: Normal sinus rhythm, ventricular rate 88, FL interval 166, QTc 462 <Jimbo Barrera - Last Filed: 12/26/19 16:02> Medical Decision Making - Lab Data Result diagrams: 12/26/19 12:39 12/26/19 12:39 <Jimbo Barrera - Last Filed: 12/26/19 16:02> - Lab Data Result diagrams: 12/27/19 09:30 12/27/19 06:07 <Jacinta Berry - Last Filed: 12/29/19 16:32> - Medical Decision Making Patient was recently admitted for refractory epilepsy. Keppra dosing was changed to 500 mg twice a day. No need for MRI studies at that time as patient has had prior studies on admission. Patient presents for seizure activity. Patient was found to have hyperkalemia of 6.0 with increase in creatinine. No EKG changes. Patient was given insulin, dextrose, albuterol, Kayexalate. P atient was also given a gram of Keppra for seizure activity. She did not continue to have any seizures in the hospital. Patient will be admitted for hyperkalemia and dialysis. Nephrology will be consulted. (Jimbo Barrera) I was available for consultation in the emergency department. The history and physical exam were done by the midlevel provider. I was consulted for this patients care. I reviewed the case with the midlevel provider and based on their presentation of the patient, I agree with the assessment, medical decision making and plan of care as documented. Patient evaluated by myself. Patient was a difficult stick therefore I did perform ultrasound guided IV placement on the patient. Chart was dictated using [employer] dictation software. Attempts were made to correct any dictation errors however some typographical errors may persist. Patient was seen during a national state of emergency due to the Covid-19 pandemic. (Jacinta Berry) - Lab Data Lab Results 12/26/19 12/26/19 12/26/19 Range/Units 12:39 12:39 12:39 WBC 4.7 (3.8-10.6) k/uL RBC 4.11 (3.80-5.40) m/uL Hgb 12.5 (11.4-16.0) gm/dL Hct 36.9 (34.0-46.0) % MCV 89.7 (80.0-100.0) fL MCH 30.3 (25.0-35.0) pg MCHC 33.8 (31.0-37.0) g/dL RDW 13.4 (11.5-15.5) % Plt Count 217 (150-450) k/uL Neutrophils % 64 % Lymphocytes % 28 % Monocytes % 5 % Eosinophils % 1 % Basophils % 1 % Neutrophils # 3.0 (1.3-7.7) k/uL Lymphocytes # 1.3 (1.0-4.8) k/uL Monocytes # 0.2 (0-1.0) k/uL Eosinophils # 0.0 (0-0.7) k/uL Basophils # 0.1 (0-0.2) k/uL Sodium 135 L (137-145) mmol/L Potassium 6.0 H (3.5-5.1) mmol/L Chloride 95 L (98-107) mmol/L Carbon Dioxide 29 (22-30) mmol/L Anion Gap 11 mmol/L BUN 29 H (7-17) mg/dL Creatinine 6.74 H (0.52-1.04) mg/dL Est GFR (CKD-EPI)AfAm 8 (>60 ml/min/1.73 sqM) Est GFR (CKD-EPI)NonAf 7 (>60 ml/min/1.73 sqM) Glucose 211 H (74-99) mg/dL Calcium 9.9 (8.4-10.2) mg/dL Total Bilirubin 0.5 (0.2-1.3) mg/dL AST 25 (14-36) U/L ALT 19 (4-34) U/L Alkaline Phosphatase 88 (38-126) U/L Total Protein 7.5 (6.3-8.2) g/dL Albumin 4.4 (3.5-5.0) g/dL Levetiracetam 62.5 H (3.0-60.0) ug/mL Disposition Is patient prescribed a controlled substance at d/c from ED?: No Time of Disposition: 16:06 <Jimbo Barrera P - Last Filed: 12/26/19 16:02> <Jacinta Berry - Last Filed: 12/29/19 16:32> Clinical Impression: Intractable seizure disorder, Hyperkalemia, Chronic renal failure Disposition: ADMITTED IP TO THIS HOSP Condition: Fair
[2019-12-26] MEDS ORDERED: SODIUM CHLORIDE 0.9% 1,000 ML IV SCH (12:00)
[2019-12-26 13:14] LABS: Basophils # (A) 0.1 k/uL (0-0.2); Basophils % (A) 1 %; Eosinophils % (A) 1 %; HCT 36.9 % (34.0-46.0); HGB 12.5 gm/dL (11.4-16.0); Lymphocytes # (A) 1.3 k/uL (1.0-4.8); Lymphocytes % (A) 28 %; MCH 30.3 pg (25.0-35.0); MCHC 33.8 g/dL (31.0-37.0); MCV 89.7 fL (80.0-100.0); Mean Platelet Volume 9.2; Monocytes # (A) 0.2 k/uL (0-1.0); Monocytes % (A) 5 %; Neutrophils % (A) 64 %; Platelet Count 217 k/uL (150-450); RBC 4.11 m/uL (3.80-5.40); RDW 13.4 % (11.5-15.5); WBC 4.7 k/uL (3.8-10.6)
[2019-12-26 13:19] LABS: Albumin 4.4 g/dL (3.5-5.0); Calcium 9.9 mg/dL (8.4-10.2); Total Bilirubin 0.5 mg/dL (0.2-1.3); Total Protein 7.5 g/dL (6.3-8.2)
[2019-12-26] MEDS ORDERED: ALBUTEROL NEB (CONC) 2.5 MG/0.5 ML INHALATION ONE (14:01)
[2019-12-26] MEDS ORDERED: DEXTROSE 50% SYRINGE 50 ML IVP ONE (16:03)
[2019-12-26] MEDS ORDERED: INSULIN REGULAR 100 UNIT/ML VIAL IV ONE (16:03)
[2019-12-26] MEDS ORDERED: levETIRAcetam 500 MG TAB PO SCH ×2 (16:15→23:00)
[2019-12-26] MEDS: SODIUM POLYSTYRENE SULFONATE 15 GM/60 ML BOTTLE PO ONE ×2 (16:21→16:30)
--- NOTE | 2019-12-26 17:48 | P.HPIM ---
History of Present Illness patient is a pleasant 49-year-old female well-known to me from her previous hospitalization came in with an episode of seizure patient is still appears to be post ictal patient did not have any loss of bowel or bladder incontinence p atient has multiple breakthrough seizures in the past multiple medication changes were made patient was suggested to have valproic acid in the past but patient the wanted to follow with PCP. Patient is presently on Vimpat and Keppra.she is hemodialysis dependent which makes thr timing of antiseizure medications even more complicated patient is hypokalemic today.she is unable to provide much of history from me as patient appears to be still the postictal state Review of Systems unable to obtain due to her clinical condition Past Medical History Past Medical History: Chest Pain / Angina, Diabetes Mellitus, Hypertension, Renal Disease, Seizure Disorder, Thyroid Disorder Additional Past Medical History / Comment(s): dialysis bipolar. Neuropathy History of Any Multi-Drug Resistant Organisms: None Reported Past Surgical History: Section, Tonsillectomy Additional Past Surgical History / Comment(s): fistula Past Anesthesia/Blood Transfusion Reactions: No Reported Reaction Past Psychological History: Bipolar Smoking Status: Former smoker Past Alcohol Use History: Occasional Past Drug Use History: None Reported - Past Family History Father Family Medical History: Unable to Obtain Medications and Allergies Home Medications Medication Instructions Recorded Confirmed Type Clopidogrel [Plavix] 75 mg PO DAILY 02/12/17 11/11/19 History Ergocalciferol (Vitamin D2) 50,000 unit PO Q7D 02/12/17 11/11/19 History [Vitamin D2] Metoprolol Tartrate [Lopressor] 25 mg PO TID #90 tab 02/28/19 11/11/19 Rx Calcium Acetate 2,001 mg PO TID 11/11/19 11/11/19 History Acetaminophen Tab [Tylenol] 650 mg PO Q6HR PRN tab 11/15/19 Rx Atorvastatin [Lipitor] 60 mg PO HS #30 tab 11/15/19 Rx Citalopram Hydrobromide [CeleXA] 10 mg PO DAILY #30 tab 11/15/19 Rx Insulin Detemir (Levemir) [Levemir] 12 unit SQ HS #1 vial 11/15/19 Rx Lacosamide [Vimpat] 50 mg PO HS #30 tablet 11/15/19 Rx Lacosamide [Vimpat] 100 mg PO DAILY #60 tablet 11/15/19 Rx Lacosamide [Vimpat] 100 mg PO MoWeFr #40 tablet 11/15/19 Rx Pantoprazole [Protonix] 40 mg PO DAILY #30 tablet. 11/15/19 Rx amLODIPine [Norvasc] 10 mg PO DAILY #30 tab 11/15/19 Rx levETIRAcetam [Keppra] 500 mg PO Q12H #60 tab 11/15/19 Rx Allergies Allergy/AdvReac Type Severity Reaction Status Date / Time Penicillins Allergy Itching Verified 12/26/19 11:54 Physical Exam Vitals: Vital Signs Temp Pulse Resp BP Pulse Ox 12/26/19 16:52 97.5 F L 93 18 138/89 96 12/26/19 15:50 93 12/26/19 15:37 82 12/26/19 13:00 98.6 F 87 15 152/96 98 12/26/19 11:40 97.0 F L 106 H 15 161/100 99 Intake and Output 12/26/19 12/26/19 12/26/19 06:59 14:59 22:59 Other: Weight 72.57 kg PHYSICAL EXAMINATION: GENERAL: is drowsy lethargic not in any acute distress. Well developed, well nourished. HEENT: Pupils are round and equally reacting to light. EOMI. No scleral icterus. No conjunctival pallor. Normocephalic, atraumatic. No pharyngeal erythema. No thyromegaly. CARDIOVASCULAR: S1 and S2 present. No murmurs, rubs, or gallops. PULMONARY: Chest is clear to auscultation, no wheezing or crackles. ABDOMEN: Soft, nontender, nondistended, normoactive bowel sounds. No palpable organomegaly. MUSCULOSKELETAL: No joint swelling or deformity. EXTREMITIES: No cyanosis, clubbing, or pedal edema. NEUROLOGICAL: unable to assess due to her clinical condition patient is bit drowsy lethargic able to answer questions but significantly so slowly appears to be postictal SKIN: No rashes. Results CBC & Chem 7: 12/26/19 12:39 12/26/19 12:39 Labs: Abnormal Lab Results - Last 24 Hours (Table) 12/26/19 Range/Units 12:39 Sodium 135 L (137-145) mmol/L Potassium 6.0 H (3.5-5.1) mmol/L Chloride 95 L (98-107) mmol/L BUN 29 H (7-17) mg/dL Creatinine 6.74 H (0.52-1.04) mg/dL Glucose 211 H (74-99) mg/dL Assessment and Plan Plan: -breakthrough seizures: Patient has a complicated history of uncontrolled s eizures and patient is an end-stage renal disease which complicates the timing of antiseizure medication patient will be resumed on home when antiseizure medication neurology will be consulted patient is recently discharged from the hospital patient was advised to use valproic acid and discontinue Keppra but patient declined to follow the recommendation at that time -End-stage renal disease secondary to diabetic nephropathy: Patient the will continue her outpatient hemodialysis schedule as an inpatient here nephrology will be consulted patient appears to be Monday hemodialysis -Type 2 diabetes mellitus patient resumed on home regimen along with sliding scale insulin -Hypertension -Hyperlipidemia -Gastro- esophageal reflux disease -hypothyroidism For above-mentioned chronic renal problems patient will be resumed on appropriate home medications DVT prophylaxis with subcutaneous heparin
[2019-12-26 17:50] LABS: Glucose,Whole Blood 162 mg/dL (75-99)
[2019-12-26] MEDS: INSULIN ASPART (NovoLOG) 100 UNIT/ML VIAL SQ SCH ×2 (18:08→21:30)
[2019-12-26] MEDS: SODIUM CHLORIDE 0.9% 1,000 ML IV SCH (19:22)
[2019-12-26] MEDS ORDERED: CALCIUM ACETATE 667 MG TAB PO PRN (19:43)
[2019-12-26 20:39] LABS: Glucose,Whole Blood 232 mg/dL (75-99)
[2019-12-26] MEDS: CALCIUM ACETATE 667 MG TAB PO SCH (21:03)
[2019-12-26] MEDS: METOPROLOL TARTRATE 25 MG TAB PO SCH ×2 (21:30→22:53)
[2019-12-26] MEDS: LACOSAMIDE 50 MG TABLET PO SCH (21:30)
[2019-12-26] MEDS: ATORVASTATIN 20 MG TAB PO SCH (21:30)
[2019-12-26] MEDS: INSULIN DETEMIR (LEVEMIR) 100 UNIT/ML SYR SQ SCH (21:31)
[2019-12-26] MEDS ORDERED: LORazepam 2 MG/ML INJ IV PRN (22:47)
[2019-12-26] MEDS ORDERED: LORazepam 2 MG/ML INJ IM PRN (22:47)
[2019-12-26] MEDS: levETIRAcetam IV 500 MG in SODIUM CHLORIDE 0.9% 100 ML IVPB SCH (23:33)
[2019-12-26] MEDS: HEPARIN SODIUM,PORCINE 5,000 UNIT/ML 1 ML VIAL SQ SCH (23:33)
[2019-12-27 07:04] LABS: Calcium 9.4 mg/dL (8.4-10.2); Potassium 4.2 mmol/L (3.5-5.1)
[2019-12-27 07:18] LABS: Glucose,Whole Blood 97 mg/dL (75-99)
[2019-12-27] MEDS: INSULIN ASPART (NovoLOG) 100 UNIT/ML VIAL SQ SCH ×4 (08:04→22:19)
[2019-12-27] MEDS: CALCIUM ACETATE 667 MG TAB PO SCH ×3 (08:37→22:22)
[2019-12-27] MEDS: amLODIPine 10 MG TAB PO SCH (08:37)
[2019-12-27] MEDS: levETIRAcetam IV 500 MG in SODIUM CHLORIDE 0.9% 100 ML IVPB SCH ×2 (08:37→22:15)
[2019-12-27] MEDS: METOPROLOL TARTRATE 25 MG TAB PO SCH ×2 (08:38→22:18)
[2019-12-27] MEDS: HEPARIN SODIUM,PORCINE 5,000 UNIT/ML 1 ML VIAL SQ SCH ×3 (08:38→23:46)
[2019-12-27] MEDS: CITALOPRAM HYDROBROMIDE 10 MG TAB PO SCH (08:38)
[2019-12-27] MEDS: CLOPIDOGREL 75 MG TAB PO SCH (08:38)
[2019-12-27] MEDS: PANTOPRAZOLE 40 MG TABLET PO SCH (08:38)
[2019-12-27] MEDS ORDERED: LACOSAMIDE 50 MG TABLET PO SCH ×2 (09:00→14:00)
[2019-12-27 10:30] LABS: Basophils % (A) 1 %; Eosinophils # (A) 0.1 k/uL (0-0.7); Eosinophils % (A) 1 %; HCT 36.1 % (34.0-46.0); HGB 12.1 gm/dL (11.4-16.0); Lymphocytes # (A) 1.5 k/uL (1.0-4.8); Lymphocytes % (A) 29 %; MCH 30.1 pg (25.0-35.0); MCHC 33.6 g/dL (31.0-37.0); MCV 89.6 fL (80.0-100.0); Mean Platelet Volume 9.6; Monocytes # (A) 0.3 k/uL (0-1.0); Monocytes % (A) 5 %; Neutrophils # (A) 3.2 k/uL (1.3-7.7); Neutrophils % (A) 63 %; Platelet Count 174 k/uL (150-450); RBC 4.03 m/uL (3.80-5.40); RDW 13.6 % (11.5-15.5); WBC 5.1 k/uL (3.8-10.6)
[2019-12-27 12:09] LABS: Glucose,Whole Blood 143 mg/dL (75-99)
--- NOTE | 2019-12-27 16:00 | P.PN ---
Subjective Progress Note Date: 12/27/19 Principal diagnosis: patient is a pleasant 49-year-old female well-known to me from her previous hospitalization came in with an episode of seizure patient is still appears to be post ictal patient did not have any loss of bowel or bladder incontinence patient has multiple breakthrough seizures in the past multiple medication changes were made patient was suggested to have valproic acid in the past but patient the wanted to follow with PCP. Patient is presently on Vimpat and Keppra.she is hemodialysis dependent which makes the timing of antiseizure medications even more complicated patient is hypokalemic today.she is unable to provide much of history from me as patient appears to be still the postictal state 12/27/2019 Patient is seen and evaluated in follow-up currently receiving hemodialysis as she normally does on Monday/Monday/Monday. Creatinine today was 7.76. Neurology consulted for seizures and currently pending at this time. Patient was to follow-up with Dr. Huff in the outpatient setting and has not done so. Patient is presently on Vimpat and Keppra although being a dialysis patient Keppra is contraindicated. Currently no reports of chest pain, shortness of breath, or palpitations. Patient is afebrile. No reports of nausea or vomiting and patient is tolerating diet. Objective - Vital Signs Vital signs: Vital Signs Temp 99.2 F 12/27/19 14:12 Pulse 80 12/27/19 14:12 Resp 16 12/27/19 14:12 BP 136/81 12/27/19 14:12 Pulse Ox 98 12/27/19 14:12 Intake & Output 12/26/19 12/27/19 12/27/19 18:59 06:59 18:59 Intake Total 650 Output Total 1118 Balance -468 Weight 72.57 kg Intake: Intake, IV Titration 100 Amount levETIRAcetam IV 500 mg 100 In Sodium Chloride 0.9% 100 ml @ 400 mls/hr IVPB Q12HR [facility] Rx#:[id number] Oral 550 Output: Hemodialysis 1118 Other: Voiding Method Diaper Diaper Incontinent Incontinent # Voids 3 3 - Exam GENERAL: Patient is lethargic although arousable, alert and oriented 3. not in any acute distress. Well developed, well nourished. HEENT: Pupils are round and equally reacting to light. EOMI. No scleral icterus. No conjunctival pallor. Normocephalic, atraumatic. No pharyngeal erythema. No thyromegaly. CARDIOVASCULAR: S1 and S2 present. No murmurs, rubs, or gallops. PULMONARY: Chest is clear to auscultation, no wheezing or crackles. ABDOMEN: Soft, nontender, nondistended, normoactive bowel sounds. No palpable organomegaly. MUSCULOSKELETAL: No joint swelling or deformity. EXTREMITIES: No cyanosis, clubbing, or pedal edema. NEUROLOGICAL: Continues to be slow to respond always responding to questions appropriately, fatigues easily SKIN: No rashes. - Labs CBC & Chem 7: 12/27/19 09:30 12/27/19 06:07 Labs: Abnormal Lab Results - Last 24 Hours (Table) 12/26/19 12/26/19 12/26/19 Range/Units 12:39 17:48 20:37 BUN (7-17) mg/dL Creatinine (0.52-1.04) mg/dL POC Glucose (mg/dL) 162 H 232 H (75-99) mg/dL Levetiracetam 62.5 H (3.0-60.0) ug/mL 12/27/19 12/27/19 Range/Units 06:07 12:06 BUN 37 H (7-17) mg/dL Creatinine 7.76 H* (0.52-1.04) mg/dL POC Glucose (mg/dL) 143 H (75-99) mg/dL Levetiracetam (3.0-60.0) ug/mL Assessment and Plan Assessment: -breakthrough seizures: Patient has a complicated history of uncontrolled seizures and patient is also end-stage renal disease which complicates the timing of antiseizure medication patient will be resumed on home antiseizure medication, patient is recently discharged from the hospital patient was advised to use valproic acid and discontinue Keppra but patient declined to follow the recommendation at that time. Patient also admits to never following up with Dr. Huff in the outpatient setting, neurology consult pending at this time. -End-stage renal disease secondary to diabetic nephropathy: Patient the will continue her outpatient hemodialysis schedule, nephrology following. To maintain Monday/Monday/Monday schedule -Type 2 diabetes mellitus patient resumed on home regimen along with sliding scale insulin -Hypertension -Hyperlipidemia -Gastroesophageal reflux disease -hypothyroidism -DVT prophylaxis: Subq heparin
[2019-12-27 17:16] LABS: Glucose,Whole Blood 263 mg/dL (75-99)
--- NOTE | 2019-12-27 17:50 | CONS ---
CONSULTATION REASON FOR CONSULT: End-stage renal disease. HISTORY OF PRESENT ILLNESS: Patient is a 49-year-old female with end-stage renal disease, on hemodialysis on a Monday, Monday, Monday schedule. She also has a history of seizures and was admitted to the hospital with a seizure at home. The patient states that she had been taking her medications regularly and does not remember having missed any of her medications. She is being followed by Neurology as an outpatient. No further seizures since admission. PAST MEDICAL HISTORY: Type 2 diabetes, hypertension, end-stage renal disease, seizure disorder, hypothyroidism. PAST SURGICAL HISTORY: , tonsillectomy, AV fistula in left arm, history of bipolar disorder. SOCIAL HISTORY: Positive for patient being a former smoker. No history of drug abuse or alcohol abuse. MEDICATIONS: Medications at home prior to admission included Plavix, vitamin D2, Lopressor, PhosLo, Tylenol, Lipitor, insulin, Celexa, lacosamide, Protonix, Norvasc, Keppra. ALLERGIES: ALLERGIES include PENICILLIN, which causes itching. REVIEW OF SYSTEMS: As per HPI. Other systems negative. PHYSICAL EXAMINATION: Patient is comfortable, awake. She is not in any acute distress. Alert and oriented x3, although poor historian. EXAMINATION OF THE HEART: S1 and S2. EXAMINATION OF LUNGS: Bilateral breath sounds are heard. ABDOMEN: Soft, non-tender. Examination of lower extremities shows no evidence of edema. 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 LABS: Labs show sodium 137, potassium 4.2, chloride 98, BUN 37, serum creatinine 7.76, hemoglobin 12.1 g/dL. ASSESSMENT: 1. End-stage renal disease, on hemodialysis on a Monday, Monday, Monday schedule. We will arrange for hemodialysis today. 2. Breakthrough seizures in a patient with history of seizures. Patient has been evaluated by Neurology several times. Timing of her anti-seizure medications with dialysis has been discussed as well. At this time she states that her medications are usually set up by her , and she takes them regularly. 3. Type 2 diabetes. 4. Chronic kidney disease mineral bone disorder. PLAN: Discontinue IV fluids. Hemodialysis today. Awaiting neurology input. Thank you for this consultation. Will continue to follow the patient with you during her hospitalization. MMODL / ALBARON: [id number] /
[2019-12-27] MEDS: SODIUM CHLORIDE 0.9% 1,000 ML IV SCH (19:26)
[2019-12-27 20:15] LABS: Glucose,Whole Blood 130 mg/dL (75-99)
[2019-12-27] MEDS: LACOSAMIDE 50 MG TABLET PO SCH (22:18)
[2019-12-27] MEDS: ATORVASTATIN 20 MG TAB PO SCH (22:18)
[2019-12-27] MEDS: INSULIN DETEMIR (LEVEMIR) 100 UNIT/ML SYR SQ SCH (22:19)
[2019-12-28] MEDS ORDERED: ACETAMINOPHEN TAB 325 MG TAB PO PRN (00:27)
--- NOTE | 2019-12-28 02:04 | P.CNNES ---
History of Present Illness Consult date: 12/27/19 Requesting physician: Jacinta Berry Reason for Consult: Breakthrough seizure History of Present Illness: Patient is a 49-year-old female with history of epilepsy, status post VNS, diabetes, hypertension, ESRD on hemodialysis, previous CVA, hypothyroidism, bipolar disorder, some report of noncompliance with medication came to the hospital because of breakthrough seizures. Patient has been seen by neurologists recently multiple times. Reviewed their notes. Patient was at her primary care physician office when she had a seizure. Patient had a prolonged postictal state. She was transferred to the hospital. Patient is a dialysis patient. Patient had a seizure last night also. VNS magnet was swiped and she did not have as long postictal state. The nurse witnessed the seizure, in which patient was taking her medication, when she suddenly stared off in space. Brought her hands close to the chest and had slight clonic activity. She was foaming from the mouth. No tongue bite. Patient is currently on Vimpat 100 mg daily, and an extra 100 mg every Monday postdialysis. She is also on Keppra 500 mg every 12 hours, and Keppra 500 mg every Monday and Monday postdialysis. Patient is also on Plavix 75 mg daily. EKG shows normal sinus rhythm. Patient's previous EEG from 12/19/2019 showed abnormal EEG due to frequent epileptiform activity noted occurring both during wakefulness and drowsiness. This consisted of frequent burst of 2-3 seconds of generalized high amplitude polyspike and single spike and slow wave discharges. These occurred at a rate of 1-2 cps. They were not associated with any clinical movement. This EEG is not a similar to prior EEG studies. No clinical seizure occurred. 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 She follows up with Dr. Cristhian Huff. Patient previously has been on Depakote, Tegretol, phenobarbital and Dilantin. Patient has history of stroke with left-sided weakness in the past. Review of Systems Patient denies headache any problem with vision. Patient has very slow mentation. Patient denies any chest pain shortness of breath wheezing or cough. Patient has left hemiparesis. Denies neck or back pain. All other review of systems unremarkable except as per HPI. Past Medical History Past Medical History: Chest Pain / Angina, CVA/TIA, Diabetes Mellitus, Hypertension, Renal Disease, Seizure Disorder, Thyroid Disorder Additional Past Medical History / Comment(s): dialysis bipolar. Neuropathy History of Any Multi-Drug Resistant Organisms: None Reported Past Surgical History: Section, Tonsillectomy Additional Past Surgical History / Comment(s): fistula Past Anesthesia/Blood Transfusion Reactions: No Reported Reaction Past Psychological History: Bipolar Smoking Status: Former smoker Past Alcohol Use History: Occasional Past Drug Use History: None Reported - Past Family History Father Family Medical History: Unable to Obtain Medications and Allergies Home Medications Medication Instructions Recorded Confirmed Type Clopidogrel [Plavix] 75 mg PO DAILY 02/12/17 12/26/19 History Ergocalciferol (Vitamin D2) 50,000 unit PO Q7D 02/12/17 12/26/19 History [Vitamin D2] Calcium Acetate 2,001 mg PO AC-TID 11/11/19 12/26/19 History Acetaminophen Tab [Tylenol] 650 mg PO Q6HR PRN tab 11/15/19 12/26/19 Rx Citalopram Hydrobromide [CeleXA] 10 mg PO DAILY #30 tab 11/15/19 12/26/19 Rx Lacosamide [Vimpat] 50 mg PO HS #30 tablet 11/15/19 12/26/19 Rx Pantoprazole [Protonix] 40 mg PO DAILY #30 tablet. 11/15/19 12/26/19 Rx amLODIPine [Norvasc] 10 mg PO DAILY #30 tab 11/15/19 12/26/19 Rx levETIRAcetam [Keppra] 500 mg PO Q12H #60 tab 11/15/19 12/26/19 Rx Atorvastatin [Lipitor] 20 mg PO PC-LUNCH 12/26/19 12/26/19 History Atorvastatin [Lipitor] 40 mg PO HS 12/26/19 12/26/19 History Insulin Glargine [Lantus] 12 unit INJ HS 12/26/19 12/26/19 History Lacosamide [Vimpat] 100 mg PO DAILY 12/26/19 12/26/19 History Lacosamide [Vimpat] 100 mg PO MOWEFR 12/26/19 12/26/19 History levETIRAcetam [Keppra] 500 mg PO MOWEFR 12/26/19 12/26/19 History Metoprolol Tartrate 25 mg PO BID 12/27/19 12/27/19 History Allergies Allergy/AdvReac Type Severity Reaction Status Date / Time Penicillins Allergy Itching Verified 12/26/19 22:57 Physical Examination - Vital Signs Vital Signs: Vital Signs Temp Pulse Pulse Pulse Resp BP BP 12/27/19 13:01 98.4 F 87 18 128/66 12/27/19 08:00 87 16 12/27/19 07:13 98.4 F 87 16 163/82 12/27/19 04:14 16 12/27/19 01:55 98.3 F 97 16 137/86 12/26/19 23:33 18 12/26/19 21:57 107 H 154/84 12/26/19 19:38 194/76 12/26/19 19:12 18 12/26/19 18:50 98.6 F 103 H 16 156/91 12/26/19 16:52 97.5 F L 93 18 138/89 12/26/19 15:50 93 12/26/19 15:37 82 Pulse Ox 12/27/19 13:01 12/27/19 08:00 12/27/19 07:13 99 12/27/19 04:14 12/27/19 01:55 98 12/26/19 23:33 12/26/19 21:57 98 12/26/19 19:38 12/26/19 19:12 12/26/19 18:50 98 12/26/19 16:52 96 12/26/19 15:50 12/26/19 15:37 Intake and Output 12/26/19 12/27/19 12/27/19 22:59 06:59 14:59 Output Total 1118 Balance -1118 Output: Hemodialysis 1118 Other: Voiding Method Diaper Diaper Diaper Incontinent Incontinent Incontinent # Voids 1 3 3 Weight 72.57 kg On examination patient is a middle aged female, who appears older than her stated age. She is laying comfortably in the bed. Her speech and language functions appears normal. Mild dysarthria. Patient has very slow mentation, prolonged latency time to answer questions. Patient knows her name, date of and that it is December, could not tell the current year or what hospital she is in. She has extremely slow mentation. On cranial exam her pupils are round and reacting to light, visual reich are full, face has mild left facial asymmetry. Tongue protrudes the midline. Palatal elevation sensation normal. Hearing is slightly decreased. Shoulder shrug normal. On muscle strength testing the strength is normal in the right arm and right leg. On the left side, her left upper extremity is diffuse 5-. Her left lower extremity hip fl exion is about 3+ to 4-, ankle dorsiflexion 2. Patient has brisk reflexes on the left. Babinski bilaterally. Results Patient's hemoglobin A1c is 9.5 on 11/11/2019, total cholesterol 219, LDL 133, HDL 32, triglycerides 271. TSH is normal. - Laboratory Findings CBC and BMP: 12/27/19 09:30 12/27/19 06:07 Abnormal Lab Findings: Abnormal Labs 12/26/19 12/26/19 12/26/19 12:39 12:39 17:48 Sodium 135 L Potassium 6.0 H Chloride 95 L BUN 29 H Creatinine 6.74 H Glucose 211 H POC Glucose (mg/dL) 162 H Levetiracetam 62.5 H 12/26/19 12/27/19 12/27/19 20:37 06:07 12:06 Sodium Potassium Chloride BUN 37 H Creatinine 7.76 H* Glucose POC Glucose (mg/dL) 232 H 143 H Levetiracetam Assessment and Plan Assessment: * Long-standing history of seizure disorder, came with breakthrough seizures. * History of CVA with left hemiparesis. * ESRD on hemodialysis * Diabetes * Hypertension Plan: * We will increase her dose of Vimpat to 100 mg twice a day. She will take an extra 100 mg post dialysis every Monday. * Patient will continue Keppra 500 mg twice a day. She will be given Keppra 250 mg post dialysis every Monday. * Follow-up with her neurologist. * Continue Plavix 75 mg and Lipitor 60 mg for stroke prevention. * Neurology coverage not available on the weekend. Dr. Carter will follow up on Monday.
[2019-12-28 03:32] VITALS: TEMP 98.2
[2019-12-28 07:20] LABS: Glucose,Whole Blood 102 mg/dL (75-99)
[2019-12-28] MEDS: INSULIN ASPART (NovoLOG) 100 UNIT/ML VIAL SQ SCH ×2 (07:34→12:15)
[2019-12-28] MEDS: CALCIUM ACETATE 667 MG TAB PO SCH ×2 (08:01→12:16)
[2019-12-28] MEDS: CITALOPRAM HYDROBROMIDE 10 MG TAB PO SCH (08:02)
[2019-12-28] MEDS: amLODIPine 10 MG TAB PO SCH (08:02)
[2019-12-28] MEDS: PANTOPRAZOLE 40 MG TABLET PO SCH (08:02)
[2019-12-28] MEDS: METOPROLOL TARTRATE 25 MG TAB PO SCH (08:02)
[2019-12-28] MEDS: CLOPIDOGREL 75 MG TAB PO SCH (08:02)
[2019-12-28] MEDS: HEPARIN SODIUM,PORCINE 5,000 UNIT/ML 1 ML VIAL SQ SCH ×2 (08:03→16:26)
[2019-12-28 08:38] VITALS: RESP 16
[2019-12-28] MEDS ORDERED: LACOSAMIDE 50 MG TABLET PO SCH (09:00)
[2019-12-28] MEDS ORDERED: levETIRAcetam 500 MG TAB PO SCH (09:00)
[2019-12-28 11:44] LABS: Glucose,Whole Blood 251 mg/dL (75-99)
[2019-12-28 15:25] VITALS: BP 150/79; PULSE 76
--- NOTE | 2019-12-28 16:10 | P.DS ---
Providers Date of admission: 12/26/19 16:05 Attending physician: Zbigniew Mccabe Consults: 12/26/19 16:05 Consult Physician Urgent Consulting Provider: Naheed Sosa Consult Reason/Comments: breakthrough seizure Do you want consulting provider notified?: Yes 12/26/19 16:07 Consult Physician Routine Consulting Provider: Urszula Ludwig Consult Reason/Comments: hyper kalemia, dialysis Do you want consulting provider notified?: Yes Primary care physician: Geoffrey Somers Hospital Course: 49-year-old female well-known to me from her previous hospitalization came in with an episode of seizure patient is still appears to be post ictal patient did not have any loss of bowel or bladder incontinence patient has multiple breakthrough seizures in the past multiple medication changes were made patient was suggested to have valproic acid in the past but patient the wanted to follow with PCP. Patient is presently on Vimpat and Keppra.she is hemodialysis dependent which makes the timing of antiseizure medications even more complicated patient is hypokalemic today.she is unable to provide much of history from me as patient appears to be still the postictal state 12/27/2019 Patient is seen and evaluated in follow-up currently receiving hemodialysis as she normally does on Monday/Monday/Monday. Creatinine today was 7.76. Neurology consulted for seizures and currently pending at this time. Patient was to follow-up with Dr. Huff in the outpatient setting and has not done so. Patient is presently on Vimpat and Keppra although being a dialysis patient Keppra is contraindicated. Currently no reports of chest pain, shortness of breath, or palpitations. Patient is afebrile. No reports of nausea or vomiting and patient is tolerating diet. 12/28/2019 Patient is a fever 2 days discussed with the neurologist at length recommended the Vimpat 100 mg twice a day every day along with an additional dose of 100 mg on nondialysis day after dialysis and Keppra find it twice a day every day and on dialysis days she need to use Keppra 250 after hemodialysis. Patient will follow-up with her neurologist Dr. Huff. PHYSICAL EXAMINATION: GENERAL: The patient is alert and oriented x3, not in any acute distress. Well developed, well nourished. HEENT: Pupils are round and equally reacting to light. EOMI. No scleral icterus. No conjunctival pallor. Normocephalic, atraumatic. No pharyngeal erythema. No thyromegaly. CARDIOVASCULAR: S1 and S2 present. No murmurs, rubs, or gallops. PULMONARY: Chest is clear to auscultation, no wheezing or crackles. ABDOMEN: Soft, nontender, nondistended, normoactive bowel sounds. No palpable organomegaly. MUSCULOSKELETAL: No joint swelling or deformity. EXTREMITIES: No cyanosis, clubbing, or pedal edema. NEUROLOGICAL: Gross neurological examination did not reveal any focal deficits. SKIN: No rashes. Assessment and Plan Assessment: -breakthrough seizures: -End-stage renal disease secondary to diabetic nephropathy: Monday/Monday/Monday schedule for dialysis -Type 2 diabetes mellitus patient resumed on home regimen along with sliding scale insulin -Hypertension -Hyperlipidemia -Gastroesophageal reflux disease -hypothyroidism Patient Condition at Discharge: Fair Plan - Discharge Summary New Discharge Prescriptions: New levETIRAcetam [Keppra] 250 mg PO MoWeFr@1400 tab levETIRAcetam [Keppra] 500 mg PO Q12HR tab Lacosamide [Vimpat] 100 mg PO BID tablet Lacosamide [Vimpat] 100 mg PO MoWeFr@1400 tablet Continue Ergocalciferol (Vitamin D2) [Vitamin D2] 50,000 unit PO Q7D Clopidogrel [Plavix] 75 mg PO DAILY Calcium Acetate 2,001 mg PO AC-TID Citalopram Hydrobromide [CeleXA] 10 mg PO DAILY #30 tab amLODIPine [Norvasc] 10 mg PO DAILY #30 tab Pantoprazole [Protonix] 40 mg PO DAILY #30 tablet. Acetaminophen Tab [Tylenol] 650 mg PO Q6HR PRN tab PRN Reason: Mild Pain Or Fever > 100.5 Atorvastatin [Lipitor] 40 mg PO HS Atorvastatin [Lipitor] 20 mg PO PC-LUNCH Insulin Glargine [Lantus] 12 unit INJ HS Metoprolol Tartrate 25 mg PO BID Discontinued levETIRAcetam [Keppra] 500 mg PO Q12H #60 tab Lacosamide [Vimpat] 50 mg PO HS #30 tablet Lacosamide [Vimpat] 100 mg PO MOWEFR Lacosamide [Vimpat] 100 mg PO DAILY levETIRAcetam [Keppra] 500 mg PO MOWEFR Discharge Medication List Clopidogrel [Plavix] 75 mg PO DAILY 02/12/17 [History] Ergocalciferol (Vitamin D2) [Vitamin D2] 50,000 unit PO Q7D 02/12/17 [History] Calcium Acetate 2,001 mg PO AC-TID 11/11/19 [History] Acetaminophen Tab [Tylenol] 650 mg PO Q6HR PRN tab 11/15/19 [Rx] Citalopram Hydrobromide [CeleXA] 10 mg PO DAILY #30 tab 11/15/19 [Rx] Pantoprazole [Protonix] 40 mg PO DAILY #30 tablet.dr 11/15/19 [Rx] amLODIPine [Norvasc] 10 mg PO DAILY #30 tab 11/15/19 [Rx] Atorvastatin [Lipitor] 20 mg PO PC-LUNCH 12/26/19 [History] Atorvastatin [Lipitor] 40 mg PO HS 12/26/19 [History] Insulin Glargine [Lantus] 12 unit INJ HS 12/26/19 [History] Metoprolol Tartrate 25 mg PO BID 12/27/19 [History] Lacosamide [Vimpat] 100 mg PO BID tablet 12/28/19 [Rx] Lacosamide [Vimpat] 100 mg PO MoWeFr@1400 tablet 12/28/19 [Rx] levETIRAcetam [Keppra] 250 mg PO MoWeFr@1400 tab 12/28/19 [Rx] levETIRAcetam [Keppra] 500 mg PO Q12HR tab 12/28/19 [Rx] Follow up Appointment(s)/Referral(s): [facility], [NON-STAFF] - Geoffrey Somers MD [Primary Care Provider] - 3 Days Discharge Disposition: HOME SELF-CARE
[2019-12-30] MEDS ORDERED: levETIRAcetam 250 MG TAB PO SCH (14:00)
== END 2019-12-28 17:32 | disposition home or self-care (01) | DRG 100 ==
LOC: EC 11:40 → 4SSUR 16:05
PROVIDERS: ADMIT Internal Medicine; ATTEND Internal Medicine
DX: G40.919 Epilepsy, unspecified, intractable, without status epilepticus (principal); N18.6 End stage renal disease; I12.0 Hypertensive chronic kidney disease with stage 5 chronic kidney disease or end stage renal disease; I69.354 Hemiplegia and hemiparesis following cerebral infarction affecting left non-dominant side; E03.9 Hypothyroidism, unspecified; E11.22 Type 2 diabetes mellitus with diabetic chronic kidney disease; E78.5 Hyperlipidemia, unspecified; E87.5 Hyperkalemia; E87.6 Hypokalemia; F31.9 Bipolar disorder, unspecified; K21.9 Gastro-esophageal reflux disease without esophagitis; Z79.02 Long term (current) use of antithrombotics/antiplatelets; Z79.4 Long term (current) use of insulin; Z79.899 Other long term (current) drug therapy; Z87.891 Personal history of nicotine dependence; Z91.14 Patient's other noncompliance with medication regimen; Z99.2 Dependence on renal dialysis; E83.9 Disorder of mineral metabolism, unspecified; Z11.59 Encounter for screening for other viral diseases; R32 Unspecified urinary incontinence; R15.9 Full incontinence of feces; Z88.0 Allergy status to penicillin
CPT/HCPCS: 36415; 80048; 80053; 80177; 80235; 85025; 90935; 93005; 94640; 96374; 96375; 99285

== ENCOUNTER 2020-02-09 18:56 | Emergency (ER) | payer MEDICARE, OTHER ==
[2020-02-09 19:05] VITALS: RESP 17
[2020-02-09] MEDS ORDERED: HYDROcodone/APAP 5-325MG 1 EACH TAB PO STA (19:17)
--- NOTE | 2020-02-09 19:24 | ED ---
Fall HPI - General Chief Complaint: Fall Stated Complaint: Leg And Back Pain Time Seen by Provider: 02/09/20 19:08 Source: patient, EMS Mode of arrival: EMS - History of Present Illness Initial Comments: 50-year-old female patient presents to the emergency department today for evaluation of right leg pain after a fall. Patient states approximately an hour prior to arrival she was walking back from the bathroom to her wheelchair when she lost her balance and fell landing on the right side. Patient states she is having pain in her right hip and all down her right leg. She is also reporting increased low back pain. She denies numbness or tingling to the lower extremities. Denies saddle anesthesia or loss of bowel or bladder control. Patient states she is unable to get herself up so she called ambulance to bring her in. Patient does have extensive past medical history with multiple comorbidities and has difficulty ambulating. States she uses a wheelchair mostly. Patient denies any headache, neck pain, chest pain, shortness of breath, dizziness, weakness, abdominal pain, nausea, vomiting, or difficulties with bowel movements or urination. - Related Data Home Medications Medication Instructions Recorded Confirmed Clopidogrel [Plavix] 75 mg PO DAILY 02/12/17 12/26/19 Ergocalciferol (Vitamin D2) 50,000 unit PO Q7D 02/12/17 12/26/19 [Vitamin D2] Calcium Acetate 2,001 mg PO AC-TID 11/11/19 12/26/19 Atorvastatin [Lipitor] 20 mg PO PC-LUNCH 12/26/19 12/26/19 Atorvastatin [Lipitor] 40 mg PO HS 12/26/19 12/26/19 Insulin Glargine [Lantus] 12 unit INJ HS 12/26/19 12/26/19 Metoprolol Tartrate 25 mg PO BID 12/27/19 12/27/19 Previous Rx's Medication Instructions Recorded Acetaminophen Tab [Tylenol] 650 mg PO Q6HR PRN tab 11/15/19 Citalopram Hydrobromide [CeleXA] 10 mg PO DAILY #30 tab 11/15/19 Pantoprazole [Protonix] 40 mg PO DAILY #30 tablet. 11/15/19 amLODIPine [Norvasc] 10 mg PO DAILY #30 tab 11/15/19 Lacosamide [Vimpat] 100 mg PO BID tablet 12/28/19 Lacosamide [Vimpat] 100 mg PO MoWeFr@1400 tablet 12/28/19 levETIRAcetam [Keppra] 250 mg PO MoWeFr@1400 tab 12/28/19 levETIRAcetam [Keppra] 500 mg PO Q12HR tab 12/28/19 Allergies Allergy/AdvReac Type Severity Reaction Status Date / Time Penicillins Allergy Itching Verified 12/26/19 22:57 Review of Systems ROS Statement: Those systems with pertinent positive or pertinent negative responses have been documented in the HPI. ROS Other: All systems not noted in ROS Statement are negative. Past Medical History Past Medical History: Chest Pain / Angina, CVA/TIA, Diabetes Mellitus, Hypertension, Renal Disease, Seizure Disorder, Thyroid Disorder Additional Past Medical History / Comment(s): dialysis bipolar. Neuropathy History of Any Multi-Drug Resistant Organisms: None Reported Past Surgical History: Section, Tonsillectomy Additional Past Surgical History / Comment(s): fistula Past Anesthesia/Blood Transfusion Reactions: No Reported Reaction Past Psychological History: Bipolar Past Alcohol Use History: Occasional Past Drug Use History: None Reported - Past Family History Father Family Medical History: Unable to Obtain General Exam Limitations: no limitations General appearance: alert, in no apparent distress, other (This is a well- developed, well-nourished adult female patient in no acute distress. Vital signs upon presentation are temperature 98.2F, pulse 80, respirations 17, blood pressure 167/95, pulse ox 97% on room air.) Eye exam: Present: normal appearance, PERRL, EOMI. Absent: scleral icterus, conjunctival injection, periorbital swelling ENT exam: Present: normal exam, normal oropharynx, mucous membranes moist Neck exam: Present: normal inspection, full ROM, other (Nontender, no step-off, no deformity to firm midline palpation of the posterior cervical spine. Full range of motion without pain or limitation.). Absent: tenderness, meningismus, lymphadenopathy Respiratory exam: Present: normal lung sounds bilaterally. Absent: respiratory distress, wheezes, rales, rhonchi, stridor Cardiovascular Exam: Present: regular rate, normal rhythm, normal heart sounds. Absent: systolic murmur, diastolic murmur, rubs, gallop, clicks GI/Abdominal exam: Present: soft, normal bowel sounds. Absent: distended, tenderness, guarding, rebound, rigid Extremities exam: Present: full ROM, tenderness (Right lateral hip, right mid tib-fib), normal capillary refill, other (There is ecchymosis and soft tissue swelling noted to the right lateral hip. There is tenderness over the mid tib- fib region. Skin is otherwise pink, warm, dry. Cap refills less than 3 seconds. Pedal pulses 1+.). Absent: normal inspection, pedal edema, joint swelling, calf tenderness Back exam: Present: normal inspection, vertebral tenderness (Lumbar vertebral tenderness) Neurological exam: Present: alert, oriented X3, CN II-XII intact Psychiatric exam: Present: normal affect, normal mood Skin exam: Present: warm, dry, intact, normal color. Absent: rash Course Vital Signs 02/09/20 19:00 Temperature 98.2 F Pulse Rate 80 Respiratory 17 Rate Blood Pressure 167/95 O2 Sat by Pulse 97 Oximetry Medical Decision Making - Medical Decision Making 50-year-old female patient presents to the emergency department today for eval uation of right leg pain after fall. Physical examination did reveal contusion to the right hip with tenderness over the right hip and right mid tib-fib. Neurovascular status intact of the right leg. She denied hitting her head or losing consciousness. X-rays of the lumbar spine, right hip and pelvis, and tib-fib are negative. I did discuss findings results with the patient. She'll be discharged follow-up with her primary care physician for recheck in 1-2 days. Return parameters discussed in detail. She verbalizes understanding and agrees with this plan. - Radiology Data Radiology results: report reviewed, image reviewed 5 views of lumbosacral spine are obtained. Report reviewed in its entirety. Impression by Dr. Arceo shows left L5 sonia-sacralization. Slight degenerative levoconvex curvature of the lumbar spine. Past arthropathy mid to lower lumbar spine with multilevel mild degenerative disc disease, more mild to moderate L3 to 4. No vertebral compression collapse or malalignment. 2 views of the right hip and one view of the AP pelvis was obtained. Report was reviewed in its entirety. Impression by Dr. Arceo shows osteopenia. No displaced fracture seen. Incidental left L5 hemisacralization. Mild bilateral hip OA. 2 views of the right tib-fib are obtained. Report was reviewed in its entirety. Impression by Dr. Arceo shows distal Achilles thickening suggesting tendinopathy. Concern for acute injury to the Achilles tendon, MRI could be performed. Otherwise, tib-fib without acute osseous abnormalities seen. Disposition Clinical Impression: Contusion of right hip, Right leg pain Disposition: HOME SELF-CARE Condition: Good Instructions (If sedation given, give patient instructions): Fall Prevention for Older Adults (ED), Contusion in Adults (ED) Additional Instructions: Apply ice to the painful areas. Follow-up through primary care physician for recheck in 1-2 days. Return to the emergency department immediately for any new, worsening, or concerning symptoms. Is patient prescribed a controlled substance at d/c from ED?: No Referrals: Geoffrey Somers MD [Primary Care Provider] - 1-2 days Time of Disposition: 20:44
--- NOTE | 2020-02-09 20:02 | XR ---
EXAMINATION TYPE: XR lumbosacral spine min 4V DATE OF EXAM: 02/09/2020 COMPARISON: NONE HISTORY: 50-year-old female fall and low back pain TECHNIQUE: 5 views FINDINGS: Small T12 ribs. Left L5 hemisacralization. Slight degenerative levoconvex curvature. Facet arthropath y mid to lower lumbar spine. Mild to moderate endplate spondylosis at L3-L4 and mild degenerative dis c disease at additional levels. Vertebral body heights are preserved and alignment is maintained. IMPRESSION: 1. Left L5 hemisacralization. Slight degenerative levoconvex curvature of the lumbar spine. 2. Facet arthropathy mid to lower lumbar spine with multilevel mild degenerative disc disease, more m ild to moderate at L3-L4. 3. No vertebral compression collapse or malalignment.
--- NOTE | 2020-02-09 20:11 | XR ---
EXAMINATION TYPE: AP view pelvis and 2 views right hip DATE OF EXAM: 02/09/2020 COMPARISON: NONE HISTORY: 50-year-old female with fall and right leg pain FINDINGS: There is mild degenerative spurring of both hips. SI joints and pubic symphysis appear symmetric and intact. There is left L5 hemisacralization incidentally noted. No acute fracture, subluxation, disloc ation. Mild osteopenia. IMPRESSION: Osteopenia. No displaced fracture seen. Incidental left L5 hemisacralization. Mild bilateral hip OA.
--- NOTE | 2020-02-09 20:30 | XR ---
EXAMINATION TYPE: XR tibia fibula RT DATE OF EXAM: 02/09/2020 COMPARISON: NONE HISTORY: 50-year-old female with fall and right leg pain TECHNIQUE: 2 views FINDINGS: No acute fracture. Knee and ankle articulations appear grossly intact. There is thickening of the Ach illes insertion and some chronic-appearing fragmentation of the posterior calcaneus. Small plantar ca lcaneal spur. Os supra naviculare. Vascular calcifications. IMPRESSION: 1. Distal Achilles thickening suggests tendinopathy. If concern for acute injury to the Achilles tend on, MRI can be performed. 2. Otherwise, tibia/fibula without acute osseous abnormality seen.
[2020-02-09] MEDS ORDERED: MORPHINE SULFATE 2 MG/ML SYRINGE IM STA (20:43)
[2020-02-09 21:14] VITALS: BP 151/74; PULSE 78; TEMP 98.3
== END 2020-02-09 21:14 | disposition home or self-care (01) ==
LOC: EC 18:56
DX: S70.01XA Contusion of right hip, initial encounter (principal); M54.5 Low back pain; I10 Essential (primary) hypertension; E11.40 Type 2 diabetes mellitus with diabetic neuropathy, unspecified; I25.2 Old myocardial infarction; Z79.02 Long term (current) use of antithrombotics/antiplatelets; Z79.4 Long term (current) use of insulin; Z79.899 Other long term (current) drug therapy; Z88.0 Allergy status to penicillin; Z86.73 Personal history of transient ischemic attack (TIA), and cerebral infarction without residual deficits; W01.0XXA Fall on same level from slipping, tripping and stumbling without subsequent striking against object, initial encounter; Y93.01 Activity, walking, marching and hiking; Y92.002 Bathroom of unspecified non-institutional (private) residence as the place of occurrence of the external cause
CPT/HCPCS: 72110; 73502; 73590; 99284; 96372; J2270

== ENCOUNTER 2020-02-20 15:59 | Emergency (ER) | payer MEDICARE, OTHER ==
[2020-02-20 17:51] LABS: Basophils # (A) 0.1 k/uL (0-0.2); Basophils % (A) 1 %; Eosinophils # (A) 0.2 k/uL (0-0.7); Eosinophils % (A) 3 %; HGB 11.6 gm/dL (11.4-16.0); Lymphocytes # (A) 3.1 k/uL (1.0-4.8); Lymphocytes % (A) 42 %; MCHC 35.3 g/dL (31.0-37.0); MCV 87.8 fL (80.0-100.0); Monocytes # (A) 0.4 k/uL (0-1.0); Monocytes % (A) 6 %; Neutrophils # (A) 3.3 k/uL (1.3-7.7); Neutrophils % (A) 46 %; Platelet Count 241 k/uL (150-450); RBC 3.76 m/uL (3.80-5.40); RDW 14.6 % (11.5-15.5); WBC 7.2 k/uL (3.8-10.6)
[2020-02-20 18:00] LABS: Albumin 4.1 g/dL (3.5-5.0); Calcium 9.5 mg/dL (8.4-10.2); INR 0.9 (<1.2); Partial Thromboplastin Time 22.6 sec (22.0-30.0); Prothrombin Time 9.8 sec (9.0-12.0); Total Bilirubin 0.5 mg/dL (0.2-1.3)
--- NOTE | 2020-02-20 18:08 | CT ---
EXAMINATION TYPE: CT abdomen pelvis wo con DATE OF EXAM: 02/20/2020 COMPARISON: 04/09/2012 CT HISTORY: Fall, frequent. Pelvic pain, pt on dialysis TECHNIQUE: Helical acquisition of images was performed from the lung bases through the pelvis. Autom ated exposure control for dose reduction was used. CT DLP: 785.8 mGycm FINDINGS: Within the limits of noncontrast CT the following observations are made. LUNG BASES: No acute findings. Coronary calcifications noted. LIVER/GB: No significant abnormality is appreciated. PANCREAS: No significant abnormality is seen. SPLEEN: No significant abnormality is seen. ADRENALS: No significant abnormality is seen. KIDNEYS: No significant abnormality is seen. FREE AIR: No free air is visualized RETROPERITONEAL ADENOPATHY: None visualized REPRODUCTIVE ORGANS: No significant abnormality is seen URINARY BLADDER: No significant abnormality is seen. PELVIC ADENOPATHY: None visualized. OSSEOUS STRUCTURES: No definite acute process. Advanced multifocal lumbar spondylosis changes are no chuck, markedly so at the L3-4 level where there is vacuum disc phenomenon. These degenerative spine ch anges can be further characterized with MRI if clinically indicated. BOWEL: No significant abnormality is seen. IMPRESSION: 1. NEGATIVE FOR FRACTURE OR OTHER SEQUELA OF TRAUMA. 2. ADVANCED MULTILEVEL LUMBAR SPONDYLOSIS, MOST SEVERE AT L3-4 DISCUSSED.
--- NOTE | 2020-02-20 18:42 | ED ---
General Adult HPI - General Chief complaint: Extremity Injury, Lower Stated complaint: Fall Time Seen by Provider: 02/20/20 16:06 Source: patient, EMS, RN notes reviewed, old records reviewed Mode of arrival: EMS Limitations: no limitations - History of Present Illness Initial comments: 50-year-old female patient hemodialysis procedure complaint of fall and hip pain. Patient reports that she has very weak legs at baseline uses a wheelchair to get around. Reports that she was putting her shoes on when she fell forward fell on her left side. Patient complaint is bilateral hip pain. Patient has chronic right lower extremity pain which is unchanged. Patient does report that she has some bruising on her anterior abdomen from a fall a few days ago. Denies any trauma to her head or neck. Denies any other complaints. Systemic: Pt denies fatigue, fever/chills, rash. Pt denies weakness, night sweats, weight loss. Neuro: Pt denies headache, visual disturbances, syncope or pre-syncope. HEENT: Pt denies ocular discharge or irritation, otalgia, rhinorrhea, pharyngitis or notable lymphadenopathy. Cardiopulmonary: Pt denies chest pain, SOB, heart palpitations, dyspnea on exertion. Abdominal/GI: Pt denies abdominal pain, n/v/d. : Pt denies dysuria, burning w/ urination, frequency/urgency. Denies new onset urinary or bowel incontinence. Neuro: Pt denies new onset weakness, paresthesias. - Related Data Home Medications Medication Instructions Recorded Confirmed Clopidogrel [Plavix] 75 mg PO DAILY 02/12/17 02/20/20 Ergocalciferol (Vitamin D2) 50,000 unit PO Q7D 02/12/17 02/20/20 [Vitamin D2] Calcium Acetate 1,334 mg PO AC-TID 11/11/19 02/20/20 Atorvastatin [Lipitor] 20 mg PO DAILY 12/26/19 02/20/20 Insulin Glargine [Lantus] 12 unit SQ HS 12/26/19 02/20/20 Metoprolol Tartrate 25 mg PO BID 12/27/19 02/20/20 Aspirin EC [Ecotrin Low Dose] 81 mg PO DAILY 02/20/20 02/20/20 Lacosamide [Vimpat] 100 mg PO MOWEFR 02/20/20 02/20/20 Lacosamide [Vimpat] 100 mg PO SUTUTHSA 02/20/20 02/20/20 cloBAZam [Clobazam] 10 mg PO BID 02/20/20 02/20/20 levETIRAcetam [Keppra] 500 mg PO MOWEFR 02/20/20 02/20/20 levETIRAcetam [Keppra] 500 mg PO SUTUTHSA 02/20/20 02/20/20 Previous Rx's Medication Instructions Recorded Acetaminophen Tab [Tylenol] 650 mg PO Q6HR PRN tab 11/15/19 Citalopram Hydrobromide [CeleXA] 10 mg PO DAILY #30 tab 11/15/19 Pantoprazole [Protonix] 40 mg PO DAILY #30 tablet. 11/15/19 amLODIPine [Norvasc] 10 mg PO DAILY #30 tab 11/15/19 Allergies Allergy/AdvReac Type Severity Reaction Status Date / Time Penicillins Allergy Itching Verified 02/20/20 18:12 Review of Systems ROS Statement: Those systems with pertinent positive or pertinent negative responses have been documented in the HPI. ROS Other: All systems not noted in ROS Statement are negative. Past Medical History Past Medical History: Chest Pain / Angina, CVA/TIA, Diabetes Mellitus, Hypertension, Renal Disease, Seizure Disorder, Thyroid Disorder Additional Past Medical History / Comment(s): dialysis bipolar. Neuropathy History of Any Multi-Drug Resistant Organisms: None Reported Past Surgical History: Section, Tonsillectomy Additional Past Surgical History / Comment(s): fistula Past Anesthesia/Blood Transfusion Reactions: No Reported Reaction Past Psychological History: Bipolar Past Alcohol Use History: Occasional Past Drug Use History: None Reported - Past Family History Father Family Medical History: Unable to Obtain General Exam - General Exam Comments Initial Comments: Constitutional: NAD, AOX3, Pt has pleasant affect. HEENT: NC/AT, trachea midline, neck supple, no lymphadenopathy. Posterior pharynx non erythematous, without exudates. External ears appear normal, without discharge. Mucous membranes moist. Eyes PERRLA, EOM intact. There is no scleral icterus. No pallor noted. Cardiopulmonary: RRR, no murmurs, rubs or gallops, no JVD noted. Lungs CTAB in anterior and posterior reich. No peripheral edema. Abdominal exam: Abdomen soft and non-distended. Abdomen non-tender to palpation in all 4 quadrants. Bowel sounds active in LLQ. Mild amount of bruising noted left lower quadrant region. Neuro: CN II-XII grossly intact. No nuchal rigidity. No raccon eyes, no montano sign, no hemotympanum. No cervical spinal tenderness. MSK: Bilateral hips are nontender palpation. Right lower extremity is mildly tender which is unchanged from patient's baseline pain. Left lower extremity nontender with exception of left hip. Neurovascularly intact. Limitations: no limitations Course Vital Signs 02/20/20 16:00 Temperature 98.7 F Pulse Rate 76 Respiratory 18 Rate Blood Pressure 124/71 O2 Sat by Pulse 98 Oximetry Medical Decision Making - Medical Decision Making 50-year-old female patient procedure complaint of fall. Denies any trauma to head or neck. Chief complaint bilateral hip pain. Physical exam doesn't display bilateral hip tenderness. Laboratory investigations are obtained and do display of a creatinine which is consistent with patient's CKD. Potassium is 4.0. CT abdomen and pelvis displayed advanced multilevlel lumbar spondylosis. Negative for fracture or other sequela of trauma. Patient discharged to follow up with primary care provider as well as orthopedic consult will return here if condition worsens. Case discussed with Dr. Fernando. - Lab Data Result diagrams: 02/20/20 17:43 02/20/20 17:43 Lab Results 02/20/20 02/20/20 02/20/20 Range/Units 17:43 17:43 17:43 WBC 7.2 (3.8-10.6) k/uL RBC 3.76 L (3.80-5.40) m/uL Hgb 11.6 (11.4-16.0) gm/dL Hct 33.0 L (34.0-46.0) % MCV 87.8 (80.0-100.0) fL MCH 31.0 (25.0-35.0) pg MCHC 35.3 (31.0-37.0) g/dL RDW 14.6 (11.5-15.5) % Plt Count 241 (150-450) k/uL Neutrophils % 46 % Lymphocytes % 42 % Monocytes % 6 % Eosinophils % 3 % Basophils % 1 % Neutrophils # 3.3 (1.3-7.7) k/uL Lymphocytes # 3.1 (1.0-4.8) k/uL Monocytes # 0.4 (0-1.0) k/uL Eosinophils # 0.2 (0-0.7) k/uL Basophils # 0.1 (0-0.2) k/uL PT 9.8 (9.0-12.0) sec INR 0.9 (<1.2) APTT 22.6 (22.0-30.0) sec Sodium 135 L (137-145) mmol/L Potassium 4.0 (3.5-5.1) mmol/L Chloride 92 L (98-107) mmol/L Carbon Dioxide 31 H (22-30) mmol/L Anion Gap 12 mmol/L BUN 22 H (7-17) mg/dL Creatinine 7.44 H* (0.52-1.04) mg/dL Est GFR (CKD-EPI)AfAm 7 (>60 ml/min/1.73 sqM) Est GFR (CKD-EPI)NonAf 6 (>60 ml/min/1.73 sqM) Glucose 127 H (74-99) mg/dL Calcium 9.5 (8.4-10.2) mg/dL Total Bilirubin 0.5 (0.2-1.3) mg/dL AST 19 (14-36) U/L ALT 15 (4-34) U/L Alkaline Phosphatase 122 (38-126) U/L Total Protein 7.0 (6.3-8.2) g/dL Albumin 4.1 (3.5-5.0) g/dL Disposition Clinical Impression: Fall, Hip pain Disposition: HOME SELF-CARE Condition: Stable Instructions (If sedation given, give patient instructions): Hip Pain (ED) Additional Instructions: Follow-up with primary care provider tomorrow. Follow up with orthopedic consult if symptoms persist. Return to ER if condition worsens. Is patient prescribed a controlled substance at d/c from ED?: No Referrals: Geoffrey Somers MD [Primary Care Provider] - 1-2 days Chris Gaines DO [Doctor of Osteopathic Medicine] - 1-2 days
[2020-02-20 19:19] VITALS: BP 131/82; PULSE 87; RESP 20; TEMP 98.9
== END 2020-02-20 19:16 | disposition home or self-care (01) ==
LOC: EC 15:59
DX: M47.816 Spondylosis without myelopathy or radiculopathy, lumbar region (principal); M25.552 Pain in left hip; M25.551 Pain in right hip; G40.909 Epilepsy, unspecified, not intractable, without status epilepticus; E11.40 Type 2 diabetes mellitus with diabetic neuropathy, unspecified; I10 Essential (primary) hypertension; I25.10 Atherosclerotic heart disease of native coronary artery without angina pectoris; E07.9 Disorder of thyroid, unspecified; F31.9 Bipolar disorder, unspecified; Z79.02 Long term (current) use of antithrombotics/antiplatelets; Z79.82 Long term (current) use of aspirin; Z79.899 Other long term (current) drug therapy; Z79.4 Long term (current) use of insulin; Z88.0 Allergy status to penicillin; Z99.2 Dependence on renal dialysis
CPT/HCPCS: 36415; 74176; 80053; 85025; 85610; 85730; 99284

== ENCOUNTER 2020-02-23 14:41 | Emergency (ER) | payer MEDICARE, OTHER ==
[2020-02-23] MEDS ORDERED: SODIUM CHLORIDE 0.9% 500 ML 500 ML IV STA (15:12)
--- NOTE | 2020-02-23 15:17 | ED ---
General Adult HPI - General Chief complaint: Weakness Stated complaint: Weakness Time Seen by Provider: 02/23/20 14:56 Source: patient Mode of arrival: EMS Limitations: no limitations - History of Present Illness Initial comments: Dictation was produced using [employer] dictation software. please excuse any grammatical, word or spelling errors. This patient was cared for during a federal and state declared state of emergency secondary to Covid 19 Chief Complaint: 50-year-old female presents with altered mental status and hypoglycemia. History of Present Illness: Patient is a poor historian. Patient is a 50-year-old female presents via EMS for hyperglycemia. According to nursing received report from EMS patient was found to have elevated blood sugars. Allegedly her blood sugars were above what could be red with a home glucometer. supposedly gave patient some insulin and EMS was called. EMS is not present for assisting in history of present illness. Patient is not a reliable historian. She is very lethargic. She has history of CVAs with left-sided weakness worse in the leg and arm. Patient has history of end-stage renal disease. She gets dialysis Monday. She reports that she last got dialysis on Monday and had a full treatment. Unable to obtain secondary to mental status. PHYSICAL EXAM: General Impression: Alert and oriented x3, lethargic HEENT: Normocephalic atraumatic, extra-ocular movements intact, pupils equal and reactive to light bilaterally, dry mucous membranes Cardiovascular: Heart regular rate and rhythm Chest: Slow to speak, no retractions, no tachypnea, bilateral breath sounds Abdomen: abdomen soft, non-tender, non-distended, no organomegaly Musculoskeletal: Pulses present and equal in all extremities, no peripheral edema, dialysis axis on the left upper extremity with palpable thrill and audible bruit Motor: Flaccid paralysis of left lower extremity, weakness of the left upper tremor compared to the right upper extremity. 3+ weakness to the right lower ex tremity Neurological: CN II-XII grossly intact, diminished sensation to painful stimuli of the left lower extremity Skin: Intact with no visualized rashes ED course: 50-year-old female multiple comorbidities presents with hyperglycemia. I bedside patient is altered and seems rather lethargic. Vital signs upon arrival are within acceptable limits. EKG does not show any acute findings. Patient is weak on the left side more than the right. She has a history of CVA however it's unclear what patient's residual deficits from a stroke or. States that weakness in the leg has been ongoing for months. Chart review was performed. Patient was in emergency department on 02/20/2020. She was evaluated by physician visitor services information assistant status post fall and hip pain. She was discharged at that time in stable medical condition. Further EMR review shows that patient was admitted in December of this year for seizure. Laboratory evaluation obtained. CBC is unremarkable. Coag panel is negative. Venous blood gas shows pH of 7.31 pCO2 of 62 and a bicarb of 32. This likely reflects a mild respiratory acidosis. Metabolic panel shows mild anion gap is no acidosis. Creatinine is 9.36. Patient does have yesterday. Glucose is 212. Rest metabolic panel is grossly unremarkable. Abdominal labs are negative. Toxicology labs are negative. Negative acetone. Computed tomography scan of the brain shows no acute processes however there is old cerebellar and left thalamic infarcts. At this point it is unclear what is causing patient's mental status changes. Furthermore, is unclear whether patient's left-sided deficits are acute, chronic or acute on chronic. Medications are reviewed. Patient does have prescription for benzodiazepines. Patient's lethargy could be related to benzodiazepines toxicity. Patient has history of seizure, perhaps she is postictal however there is no history or physical examination suggest patient had a seizure. She has not had any tonic-clonic activity while in our emergency department. Case was discussed with . We do not have neurology today however according to our racing secretary we will have neurology tomorrow. Case was discussed with medicine who recommends that we discuss disposition options with . In particular, we asked whether he would like patient to be admitted to our hospital with neurology consultation tomorrow or to be transferred to [facility] where they have current neurology coverage. requested patient be transferred to [facility]. Case was discussed with Dr. Callahan and [facility] emergency room who is willing to accept patient for ER to ER transfer. EKG interpretation: Ventricular rate 66, normal sinus rhythm,. Interval to 4, QRS 80, QTc 459. No [place] prolongation, no QTC prolongation, no ST or T-wave changes noted. EKG compared to 12/26/2019 showing no changes. Overall, this EKG is unremarkable - Related Data Home Medications Medication Instructions Recorded Confirmed Clopidogrel [Plavix] 75 mg PO DAILY 02/12/17 02/23/20 Ergocalciferol (Vitamin D2) 50,000 unit PO Q7D 02/12/17 02/23/20 [Vitamin D2] Calcium Acetate 1,334 mg PO AC-TID 11/11/19 02/23/20 Atorvastatin [Lipitor] 20 mg PO DAILY 12/26/19 02/23/20 Insulin Glargine [Lantus] 12 unit SQ HS 12/26/19 02/23/20 Metoprolol Tartrate 25 mg PO BID 12/27/19 02/23/20 Aspirin EC [Ecotrin Low Dose] 81 mg PO DAILY 02/20/20 02/23/20 Lacosamide [Vimpat] 100 mg PO DIRECTED 02/20/20 02/23/20 cloBAZam [Clobazam] 10 mg PO BID 02/20/20 02/23/20 levETIRAcetam [Keppra] 500 mg PO DIRECTED 02/20/20 02/23/20 Acetaminophen Tab [Tylenol Tab] 500 - 1,000 mg PO Q6H PRN 02/23/20 02/23/20 Previous Rx's Medication Instructions Recorded Citalopram Hydrobromide [CeleXA] 10 mg PO DAILY #30 tab 11/15/19 amLODIPine [Norvasc] 10 mg PO DAILY #30 tab 11/15/19 Allergies Allergy/AdvReac Type Severity Reaction Status Date / Time Penicillins Allergy Itching Verified 02/23/20 14:57 Review of Systems ROS Statement: Those systems with pertinent positive or pertinent negative responses have been documented in the HPI. ROS Other: All systems not noted in ROS Statement are negative. Past Medical History Past Medical History: Chest Pain / Angina, CVA/TIA, Diabetes Mellitus, Hypertension, Renal Disease, Seizure Disorder, Thyroid Disorder Additional Past Medical History / Comment(s): dialysis bipolar. Neuropathy History of Any Multi-Drug Resistant Organisms: None Reported Past Surgical History: Section, Tonsillectomy Additional Past Surgical History / Comment(s): fistula Past Anesthesia/Blood Transfusion Reactions: No Reported Reaction Past Psychological History: Bipolar Smoking Status: Former smoker Past Alcohol Use History: Occasional Past Drug Use History: None Reported - Past Family History Father Family Medical History: Unable to Obtain General Exam Limitations: no limitations Course Vital Signs 02/23/20 02/23/20 02/23/20 14:53 15:00 16:00 Temperature 98.4 F Pulse Rate 67 67 64 Respiratory 16 15 15 Rate Blood Pressure 129/76 129/76 118/74 O2 Sat by Pulse 98 98 97 Oximetry Medical Decision Making - Lab Data Result diagrams: 02/23/20 15:20 02/23/20 15:20 Lab Results 02/23/20 02/23/20 02/23/20 Range/Units 15:20 15:20 15:20 WBC 7.6 (3.8-10.6) k/uL RBC 3.96 (3.80-5.40) m/uL Hgb 11.9 (11.4-16.0) gm/dL Hct 35.7 (34.0-46.0) % MCV 90.1 (80.0-100.0) fL MCH 30.1 (25.0-35.0) pg MCHC 33.4 (31.0-37.0) g/dL RDW 14.8 (11.5-15.5) % Plt Count 259 (150-450) k/uL Neutrophils % 55 % Lymphocytes % 37 % Monocytes % 4 % Eosinophils % 3 % Basophils % 1 % Neutrophils # 4.1 (1.3-7.7) k/uL Lymphocytes # 2.8 (1.0-4.8) k/uL Monocytes # 0.3 (0-1.0) k/uL Eosinophils # 0.2 (0-0.7) k/uL Basophils # 0.1 (0-0.2) k/uL PT (9.0-12.0) sec INR (<1.2) APTT (22.0-30.0) sec VBG pH (7.31-7.41) VBG pCO2 (37-51) mmHg VBG HCO3 (24-28) mmol/L Sodium 140 (137-145) mmol/L Potassium 4.3 (3.5-5.1) mmol/L Chloride 95 L (98-107) mmol/L Carbon Dioxide 28 (22-30) mmol/L Anion Gap 17 mmol/L BUN 40 H (7-17) mg/dL Creatinine 9.36 H* (0.52-1.04) mg/dL Est GFR (CKD-EPI)AfAm 5 (>60 ml/min/1.73 sqM) Est GFR (CKD-EPI)NonAf 4 (>60 ml/min/1.73 sqM) Glucose 212 H (74-99) mg/dL Plasma Lactic Acid Shen 1.4 (0.7-2.0) mmol/L Calcium 10.1 (8.4-10.2) mg/dL Ionized Calcium Yuly 5.0 (4.5-5.3) mg/dL Magnesium 2.6 H (1.6-2.3) mg/dL Total Bilirubin 0.5 (0.2-1.3) mg/dL Conjugated Bilirubin 0.0 (0.0-0.3) mg/dL Unconjugated Bilirubin 0.0 (0.0-1.1) mg/dL Delta Bilirubin 0.5 H (0.0-0.2) mg/dL AST 22 (14-36) U/L ALT 17 (4-34) U/L Alkaline Phosphatase 142 H (38-126) U/L Ammonia <9 (<30) umol/L Troponin I (0.000-0.034) ng/mL C-Reactive Protein 9.5 (<10.0) mg/L Total Protein 8.0 (6.3-8.2) g/dL Albumin 4.7 (3.5-5.0) g/dL Lipase 248 (23-300) U/L TSH 0.730 (0.465-4.680) mIU/L Salicylates <1.0 mg/dL Acetaminophen <10.0 ug/mL Serum Alcohol <10 mg/dL Acetone, Qual Negative (Negative) 02/23/20 02/23/20 02/23/20 Range/Units 15:20 15:20 15:20 WBC (3.8-10.6) k/uL RBC (3.80-5.40) m/uL Hgb (11.4-16.0) gm/dL Hct (34.0-46.0) % MCV (80.0-100.0) fL MCH (25.0-35.0) pg MCHC (31.0-37.0) g/dL RDW (11.5-15.5) % Plt Count (150-450) k/uL Neutrophils % % Lymphocytes % % Monocytes % % Eosinophils % % Basophils % % Neutrophils # (1.3-7.7) k/uL Lymphocytes # (1.0-4.8) k/uL Monocytes # (0-1.0) k/uL Eosinophils # (0-0.7) k/uL Basophils # (0-0.2) k/uL PT 9.7 (9.0-12.0) sec INR 0.9 (<1.2) APTT 22.1 (22.0-30.0) sec VBG pH 7.31 (7.31-7.41) VBG pCO2 62 H (37-51) mmHg VBG HCO3 32 H (24-28) mmol/L Sodium (137-145) mmol/L Potassium (3.5-5.1) mmol/L Chloride (98-107) mmol/L Carbon Dioxide (22-30) mmol/L Anion Gap mmol/L BUN (7-17) mg/dL Creatinine (0.52-1.04) mg/dL Est GFR (CKD-EPI)AfAm (>60 ml/min/1.73 sqM) Est GFR (CKD-EPI)NonAf (>60 ml/min/1.73 sqM) Glucose (74-99) mg/dL Plasma Lactic Acid Shen (0.7-2.0) mmol/L Calcium (8.4-10.2) mg/dL Ionized Calcium Yuly (4.5-5.3) mg/dL Magnesium (1.6-2.3) mg/dL Total Bilirubin (0.2-1.3) mg/dL Conjugated Bilirubin (0.0-0.3) mg/dL Unconjugated Bilirubin (0.0-1.1) mg/dL Delta Bilirubin (0.0-0.2) mg/dL AST (14-36) U/L ALT (4-34) U/L Alkaline Phosphatase (38-126) U/L Ammonia (<30) umol/L Troponin I <0.012 (0.000-0.034) ng/mL C-Reactive Protein (<10.0) mg/L Total Protein (6.3-8.2) g/dL Albumin (3.5-5.0) g/dL Lipase (23-300) U/L TSH (0.465-4.680) mIU/L Salicylates mg/dL Acetaminophen ug/mL Serum Alcohol mg/dL Acetone, Qual (Negative) Disposition Clinical Impression: Altered mental status Disposition: OTHER INSTITUTION NOT DEFINED Condition: Fair Referrals: Geoffrey Somers MD [Primary Care Provider] - 1-2 days Time of Disposition: 17:05 - Out of Hospital Transfer - Req. Specs Out of Hospital Transfer - Requested Specifics: Other Emergency Center ([facility])
[2020-02-23 15:34] LABS: VBG PH 7.31 (7.31-7.41)
[2020-02-23 15:35] LABS: Basophils # (A) 0.1 k/uL (0-0.2); Basophils % (A) 1 %; Eosinophils # (A) 0.2 k/uL (0-0.7); Eosinophils % (A) 3 %; HCT 35.7 % (34.0-46.0); HGB 11.9 gm/dL (11.4-16.0); Lymphocytes # (A) 2.8 k/uL (1.0-4.8); Lymphocytes % (A) 37 %; MCH 30.1 pg (25.0-35.0); MCHC 33.4 g/dL (31.0-37.0); MCV 90.1 fL (80.0-100.0); Mean Platelet Volume 9.1; Monocytes # (A) 0.3 k/uL (0-1.0); Monocytes % (A) 4 %; Neutrophils # (A) 4.1 k/uL (1.3-7.7); Neutrophils % (A) 55 %; Platelet Count 259 k/uL (150-450); RBC 3.96 m/uL (3.80-5.40); RDW 14.8 % (11.5-15.5); WBC 7.6 k/uL (3.8-10.6)
[2020-02-23 15:50] LABS: INR 0.9 (<1.2); Partial Thromboplastin Time 22.1 sec (22.0-30.0); Prothrombin Time 9.7 sec (9.0-12.0)
--- NOTE | 2020-02-23 16:01 | CT ---
EXAMINATION TYPE: CT brain wo con DATE OF EXAM: 02/23/2020 COMPARISON: 12/19/2019 HISTORY: ams CT DLP: 1188.4 mGycm Automated exposure control for dose reduction was used. There is 10 mm hypodense focus in the anterior left thalamus. There is cerebral cortical atrophy. The re is no mass effect nor midline shift. There is no sign of intracranial hemorrhage. Calvarium is int act. There is normal aeration of the temporal bones. There are 1.5 cm bilateral hypodense cortical fo ci in the cerebellar hemispheres consistent with old cortical infarcts. IMPRESSION: Old cerebellar and left thalamic infarcts. No acute intracranial abnormality. No change compared to o ld exam.
[2020-02-23 16:03] LABS: Lactic Acid, Venous 1.4 mmol/L (0.7-2.0)
--- NOTE | 2020-02-23 16:04 | XR ---
EXAMINATION TYPE: XR chest 1V portable DATE OF EXAM: 02/23/2020 COMPARISON: 11/10/2019 HISTORY: Altered mental status TECHNIQUE: Single view FINDINGS: Heart and mediastinum are normal. Lungs are clear. Diaphragm is normal. There is left axill adrien pacemaker. There are chest leads. There is no pleural effusion. IMPRESSION: No active cardiopulmonary disease. No change.
[2020-02-23 16:06] LABS: ALT 17 U/L (4-34); AST 22 U/L (14-36); Acetaminophen <10.0 ug/mL; African American GFR (CKD) 5 (>60 ml/min/1.73 sqM); Albumin 4.7 g/dL (3.5-5.0); Alcohol <10 mg/dL; Alkaline Phosphatase 142 U/L (38-126); Anion Gap 17 mmol/L; Bilirubin, Delta 0.5 mg/dL (0.0-0.2); Blood Urea Nitrogen 40 mg/dL (7-17); C Reactive Protein 9.5 mg/L (<10.0); Calcium 10.1 mg/dL (8.4-10.2); Carbon Dioxide 28 mmol/L (22-30); Chloride 95 mmol/L (98-107); Glucose 212 mg/dL (74-99); Magnesium 2.6 mg/dL (1.6-2.3); Non-African American GFR(CKD) 4 (>60 ml/min/1.73 sqM); Potassium 4.3 mmol/L (3.5-5.1); Salicylate <1.0 mg/dL; Sodium 140 mmol/L (137-145); Total Bilirubin 0.5 mg/dL (0.2-1.3)
[2020-02-23 16:25] VITALS: PULSE 64; RESP 15
[2020-02-23 17:18] LABS: Glucose,Whole Blood 127 mg/dL (75-99)
[2020-02-23 17:20] VITALS: BP 125/78
[2020-02-23 17:47] VITALS: TEMP 98
--- NOTE | 2020-02-24 03:36 | CONS ---
CONSULTATION DATE OF SERVICE: 02/23/2020 CHIEF COMPLAINT: Change in mental status and diabetes and as well as other medical issues requested by the ER physician. HISTORY OF PRESENT ILLNESS: This 50-year-old woman with past medical history of CVA, TIA, diabetes mellitus, hypertension, renal disease, end-stage renal disease on hemodialysis, seizure disorder, hypothyroidism, being followed by Dr. Geoffrey Somers in the outpatient setting was admitted with some change in mental status. Apparently the home glucose meter read extremely high and the patient blood sugars were around 200 and the patient was taken to [facility]. The patient is extremely drowsy at this time, unable to give a coherent history. The patient is on multiple medications and creatinine is found to be 9.36 and glucose 212 and 127. The CAT scan of the brain which was done showed old cerebral infarct and left thalamic infarcts. No acute changes are noted. Chest x- ray which was also reviewed personally by me showed no acute abnormality. The patient is unable to give coherent history, most of the history was from my discussion with staff and discussion with the ER physician and review of the chart at this time. PAST MEDICAL HISTORY: History of end-stage renal disease, history of CVA, TIA, diabetes mellitus, hypertension, history of seizure disorder, breakthrough seizures. MEDICATIONS: Home medications are: 1. Keppra 500 mg p.r.n. 2. Clobazam. 3. Norvasc. 4. Metoprolol 25 mg p.o. b.i.d. 5. Vimpat 100 mg p.o. 6. Lantus 12 units subcu at bedtime. 7. Vitamin D2, 50,000 q.7 days. 8. Plavix 75 mg p.o. daily. 9. Celexa 10 mg p.o. daily. 10.Calcium acetate 1334 mg a.c. t.i.d. 11.Lipitor 20 mg p.o. daily. 12.Ecotrin 81 mg daily. 13.Tylenol p.r.n. ALLERGIES: PENICILLIN. Family history, social history, review of systems could not be taken because of the patient's change in mental status. PHYSICAL EXAMINATION: Patient is stuporous, arousable, unable to give a coherent history. Pulse is 64, blood pressure 125/78, respiration 15, temperature 98.4, pulse ox 97% on room air. HEENT: Conjunctivae normal. Oral mucosa moist. NECK: No jugular venous distention. No carotid bruit. No lymph node enlargement. CARDIOVASCULAR: S1, S2 muffled. No S3, no S4. RESPIRATORY: Breath sounds diminished at the bases. A few scattered rhonchi and crackles. ABDOMEN: Soft, nontender. No mass palpable. LEGS: No edema, no swelling. NERVOUS SYSTEM: Higher function mentioned earlier. Moves all 4 limbs on repeated instructions. Otherwise, full neurologic examination not possible at this time. SKIN: No ulcer, rash or bleeding. JOINTS: No active deforming arthropathy. LYMPHATICS: No lymphadenopathy of the neck, axillae or groin. LAB INVESTIGATIONS: CBC within normal limits. VBG 32. Sodium 140, potassium 4.3. Creatinine is 9.36. The labs are noted. Magnesium 2.6, alkaline phosphatase 142. Drug screen is negative for salicylate, acetaminophen, alcohol and acetone. ASSESSMENT: 1. Change in mental status, metabolic encephalopathy, multifactorial possibly. 2. End-stage renal disease, on hemodialysis. 3. History of cerebrovascular accident, transient ischemic attack. 4. Old cerebellar and left thalamic infarcts on the CAT scan. 5. History of chest pain. 6. Diabetes mellitus type 2. 7. Hypertension. 8. Seizure disorder and breakthrough seizure. 9. Hypothyroidism. 10.History of bipolar. 11.History of tonsillectomy. 12.History of nicotine dependence. 13.Obesity with body mass index 33.5. RECOMMENDATIONS AND DISCUSSION: This 50-year-old woman who presented with multiple complex medical issues, we will monitor the patient closely. Continue the current medications, continue symptomatic treatment. Otherwise at this time I recommend continue monitoring and this patient does not have any focal signs at this time but however an acute stroke is not completely ruled out, especially in view of the abnormal CAT scans and I would recommend possibly transfer to [facility] for continued evaluation and neurology consultation. Otherwise recommend to continue the current medications. The patient does not appear to be in DKA at this point. The possibility of sepsis also seems unlikely. I recommend nephrology evaluation as well. Overall prognosis guarded because of multiple complex medical issues. Further recommendations to follow. A copy of dictation forwarded to Dr. Geoffrey Somers who is the primary physician. MMODL / ALBARON: [id number] / [facility]
== END 2020-02-23 17:46 | disposition other institution (70) ==
LOC: EC 14:41
DX: R41.82 Altered mental status, unspecified (principal); I20.9 Angina pectoris, unspecified; E11.65 Type 2 diabetes mellitus with hyperglycemia; I10 Essential (primary) hypertension; E11.40 Type 2 diabetes mellitus with diabetic neuropathy, unspecified; G40.909 Epilepsy, unspecified, not intractable, without status epilepticus; Z79.01 Long term (current) use of anticoagulants; Z79.4 Long term (current) use of insulin; Z79.82 Long term (current) use of aspirin; Z79.899 Other long term (current) drug therapy; Z88.0 Allergy status to penicillin; Z87.891 Personal history of nicotine dependence; Z99.2 Dependence on renal dialysis; Z20.828 Contact with and (suspected) exposure to other viral communicable diseases
CPT/HCPCS: 99285 ×2; 96360 ×2; 36415; 93005; 80053; 82330; 82140; 82248; 82803; 82009; 83605; 83690; 83735; 84443; 84484; 85025; 85610; 85730; 86140; 87040; 83520; 71045; 70450; G0480 ×2; U0003; 80320; 80329

== ENCOUNTER 2020-04-01 11:10 | Inpatient (IN) | payer MEDICARE, OTHER ==
[2020-04-01] MEDS ORDERED: SODIUM CHLORIDE 0.9% 500 ML 500 ML IV STA (11:35)
--- NOTE | 2020-04-01 12:08 | ED ---
Seizure HPI - General Source: patient, EMS, RN notes reviewed Mode of arrival: EMS Limitations: no limitations <Marcin Dewitt - Last Filed: 04/01/20 14:01> <Dawson Davies - Last Filed: 04/01/20 14:06> - General Chief Complaint: Seizure Stated Complaint: seizures Time Seen by Provider: 04/01/20 11:17 - History of Present Illness Initial Comments: 50-year-old female presents emergency department via EMS from home chief complaint seizure. Patient has long history of seizures patient states then. Information is limited from patient as she mildly postictal at this time. Patient is awake and alert. Patient also has a history of renal failure on dialysis. Patient denies missing any appointments. Patient denies chest pain, shortness breath, headache or dizziness. (Marcin Dewitt) - Related Data Home Medications Medication Instructions Recorded Confirmed Clopidogrel [Plavix] 75 mg PO DAILY 02/12/17 02/23/20 Ergocalciferol (Vitamin D2) 50,000 unit PO Q7D 02/12/17 02/23/20 [Vitamin D2] Calcium Acetate 1,334 mg PO AC-TID 11/11/19 02/23/20 Atorvastatin [Lipitor] 20 mg PO DAILY 12/26/19 02/23/20 Insulin Glargine [Lantus] 12 unit SQ HS 12/26/19 02/23/20 Metoprolol Tartrate 25 mg PO BID 12/27/19 02/23/20 Aspirin EC [Ecotrin Low Dose] 81 mg PO DAILY 02/20/20 02/23/20 Lacosamide [Vimpat] 100 mg PO DIRECTED 02/20/20 02/23/20 cloBAZam [Clobazam] 10 mg PO BID 02/20/20 02/23/20 levETIRAcetam [Keppra] 500 mg PO DIRECTED 02/20/20 02/23/20 Acetaminophen Tab [Tylenol Tab] 500 - 1,000 mg PO Q6H PRN 02/23/20 02/23/20 Previous Rx's Medication Instructions Recorded Citalopram Hydrobromide [CeleXA] 10 mg PO DAILY #30 tab 11/15/19 amLODIPine [Norvasc] 10 mg PO DAILY #30 tab 11/15/19 Allergies Allergy/AdvReac Type Severity Reaction Status Date / Time Penicillins Allergy Itching Verified 02/23/20 14:57 Review of Systems ROS Other: All systems not noted in ROS Statement are negative. <Marcin Dewitt - Last Filed: 04/01/20 14:01> ROS Other: All systems not noted in ROS Statement are negative. <Dawson Davies - Last Filed: 04/01/20 14:06> ROS Statement: Those systems with pertinent positive or pertinent negative responses have been documented in the HPI. Past Medical History Past Medical History: Chest Pain / Angina, CVA/TIA, Diabetes Mellitus, Hypertension, Renal Disease, Seizure Disorder, Thyroid Disorder Additional Past Medical History / Comment(s): dialysis bipolar. Neuropathy History of Any Multi-Drug Resistant Organisms: None Reported Past Surgical History: Section, Tonsillectomy Additional Past Surgical History / Comment(s): fistula Past Anesthesia/Blood Transfusion Reactions: No Reported Reaction Past Psychological History: Bipolar Smoking Status: Former smoker Past Alcohol Use History: Occasional Past Drug Use History: None Reported - Past Family History Father Family Medical History: Unable to Obtain <Marcin Dewitt - Last Filed: 04/01/20 14:01> General Exam Limitations: altered mental status General appearance: alert, in no apparent distress Head exam: Present: atraumatic, normocephalic, normal inspection Eye exam: Present: normal appearance, PERRL, EOMI. Absent: scleral icterus, conjunctival injection, periorbital swelling ENT exam: Present: normal exam, normal oropharynx, mucous membranes moist Neck exam: Present: normal inspection, full ROM. Absent: tenderness, menin gismus, lymphadenopathy Respiratory exam: Present: normal lung sounds bilaterally. Absent: respiratory distress, wheezes, rales, rhonchi, stridor Cardiovascular Exam: Present: regular rate, normal rhythm, normal heart sounds. Absent: systolic murmur, diastolic murmur, rubs, gallop, clicks Extremities exam: Present: other (Fistula left arm) Neurological exam: Present: reflexes normal. Absent: motor sensory deficit Skin exam: Present: warm, dry, intact, normal color. Absent: rash <Marcin Dewitt - Last Filed: 04/01/20 14:01> Course <Dawson Davies - Last Filed: 04/01/20 14:06> Vital Signs 04/01/20 04/01/20 11:15 13:42 Temperature 98.8 F Pulse Rate 91 93 Respiratory 19 18 Rate Blood Pressure 157/80 186/89 O2 Sat by Pulse 99 97 Oximetry - Reevaluation(s) Reevaluation #1: 04/01/20 14:06 I did review the case. Patient will be admitted she still demonstrates a prolonged postictal state after seizure. He does have a known history of seizure disorder. She has chronic renal failure and is to have dialysis today. Dr. Mcgovern is are ready been notified I did discuss case with Dr. Mccabe. (Dawson Fitzgerald) Medical Decision Making - Lab Data Result diagrams: 04/01/20 11:45 04/01/20 11:45 <Marcin Dewitt - Last Filed: 04/01/20 14:01> - Lab Data Result diagrams: 04/01/20 11:45 04/01/20 11:45 <Dawson Davies - Last Filed: 04/01/20 14:06> - Medical Decision Making 50-year-old presented for seizure. Patient has a history of seizures. Patient is awake and alert she does have some slight drowsiness which patient has been admitted several times for prolonged postictal state. Patient also missed dialysis today. Patient position classifier wants patient to have dialysis. (Marcin Dewitt) - Lab Data Lab Results 04/01/20 04/01/20 Range/Units 11:45 11:45 WBC 6.3 (3.8-10.6) k/uL RBC 2.90 L (3.80-5.40) m/uL Hgb 8.8 L (11.4-16.0) gm/dL Hct 26.6 L (34.0-46.0) % MCV 91.8 (80.0-100.0) fL MCH 30.2 (25.0-35.0) pg MCHC 32.9 (31.0-37.0) g/dL RDW 13.7 (11.5-15.5) % Plt Count 262 (150-450) k/uL Neutrophils % 67 % Lymphocytes % 25 % Monocytes % 4 % Eosinophils % 1 % Basophils % 1 % Neutrophils # 4.2 (1.3-7.7) k/uL Lymphocytes # 1.6 (1.0-4.8) k/uL Monocytes # 0.2 (0-1.0) k/uL Eosinophils # 0.1 (0-0.7) k/uL Basophils # 0.1 (0-0.2) k/uL Sodium 141 (137-145) mmol/L Potassium 4.5 (3.5-5.1) mmol/L Chloride 99 (98-107) mmol/L Carbon Dioxide 27 (22-30) mmol/L Anion Gap 15 mmol/L BUN 44 H (7-17) mg/dL Creatinine 7.14 H* (0.52-1.04) mg/dL Est GFR (CKD-EPI)AfAm 7 (>60 ml/min/1.73 sqM) Est GFR (CKD-EPI)NonAf 6 (>60 ml/min/1.73 sqM) Glucose 157 H (74-99) mg/dL Calcium 9.7 (8.4-10.2) mg/dL Total Bilirubin 0.5 (0.2-1.3) mg/dL AST 23 (14-36) U/L ALT 13 (4-34) U/L Alkaline Phosphatase 78 (38-126) U/L Total Protein 7.6 (6.3-8.2) g/dL Albumin 4.6 (3.5-5.0) g/dL Disposition <Marcin Dewitt - Last Filed: 04/01/20 14:01> <Dawson Davies - Last Filed: 04/01/20 14:06> Clinical Impression: Generalized seizure, Renal failure Disposition: ADMITTED IP TO THIS HOSP Referrals: Geoffrey Somers MD [Primary Care Provider] - 1-2 days
[2020-04-01 13:18] LABS: Basophils # (A) 0.1 k/uL (0-0.2); Basophils % (A) 1 %; Eosinophils # (A) 0.1 k/uL (0-0.7); Eosinophils % (A) 1 %; HCT 26.6 % (34.0-46.0); HGB 8.8 gm/dL (11.4-16.0); Lymphocytes # (A) 1.6 k/uL (1.0-4.8); Lymphocytes % (A) 25 %; MCH 30.2 pg (25.0-35.0); MCHC 32.9 g/dL (31.0-37.0); MCV 91.8 fL (80.0-100.0); Mean Platelet Volume 8.3; Monocytes # (A) 0.2 k/uL (0-1.0); Monocytes % (A) 4 %; Neutrophils # (A) 4.2 k/uL (1.3-7.7); Neutrophils % (A) 67 %; Platelet Count 262 k/uL (150-450); RDW 13.7 % (11.5-15.5); WBC 6.3 k/uL (3.8-10.6)
[2020-04-01 13:29] LABS: Albumin 4.6 g/dL (3.5-5.0); Calcium 9.7 mg/dL (8.4-10.2); Potassium 4.5 mmol/L (3.5-5.1); Total Bilirubin 0.5 mg/dL (0.2-1.3); Total Protein 7.6 g/dL (6.3-8.2)
[2020-04-01] MEDS ORDERED: NALOXONE 0.4 MG/ML 1 ML VIAL IV PRN (14:04)
[2020-04-01] MEDS ORDERED: LORazepam 2 MG/ML INJ IV PRN ×2 (14:04→17:05)
[2020-04-01] MEDS ORDERED: ACETAMINOPHEN TAB 325 MG TAB PO PRN (14:04)
[2020-04-01] MEDS ORDERED: hydrALAZINE HCL 20 MG/ML 1 ML VIAL IVP PRN (14:44)
[2020-04-01 16:41] LABS: Glucose,Whole Blood 94 mg/dL (75-99)
--- NOTE | 2020-04-01 17:00 | P.HPIM ---
History of Present Illness 50-year-old the female well-known to me from her previous physician patient had multiple hospital physician for breakthrough seizures patient is presently on Vimpat and Keppra. Patient usually will take an additional Keppra dose after the dialysis. Unable to often any History from the patient patient evidently presented with seizures patient appears to be postictal at this time patient is also undergoing hemodialysis at this time. Patient is awake but nonverbal and unable to provide any history to me. Review of Systems Unable to obtain due to her clinical condition Past Medical History Past Medical History: Chest Pain / Angina, CVA/TIA, Diabetes Mellitus, Hypertension, Renal Disease, Seizure Disorder, Thyroid Disorder Additional Past Medical History / Comment(s): dialysis, bipolar, neuropathy, baseline orientation person/place, drop foot left, only able to walk short distances with walker or wheelchair History of Any Multi-Drug Resistant Organisms: None Reported Past Surgical History: Section, Tonsillectomy Additional Past Surgical History / Comment(s): left arm fistula, loop recorder, vagus nerve stimulator Past Anesthesia/Blood Transfusion Reactions: No Reported Reaction Past Psychological History: Bipolar Smoking Status: Former smoker Past Alcohol Use History: Occasional Past Drug Use History: None Reported - Past Family History Father Family Medical History: Unable to Obtain Additional Family Medical History / Comment(s): adopted Medications and Allergies Home Medications Medication Instructions Recorded Confirmed Type Clopidogrel [Plavix] 75 mg PO DAILY 02/12/17 04/01/20 History Ergocalciferol (Vitamin D2) 50,000 unit PO Q7D 02/12/17 04/01/20 History [Vitamin D2] Calcium Acetate 667 mg PO AC-TID 11/11/19 04/01/20 History Citalopram Hydrobromide [CeleXA] 10 mg PO DAILY #30 tab 11/15/19 04/01/20 Rx Atorvastatin [Lipitor] 20 mg PO DAILY 12/26/19 04/01/20 History Insulin Glargine [Lantus] 12 unit SQ HS 12/26/19 04/01/20 History Metoprolol Tartrate 25 mg PO BID 12/27/19 04/01/20 History Lacosamide [Vimpat] 100 mg PO DIRECTED 02/20/20 04/01/20 History cloBAZam [Clobazam] 10 mg PO BID 02/20/20 04/01/20 History levETIRAcetam [Keppra] 500 mg PO DIRECTED 02/20/20 04/01/20 History Acetaminophen Tab [Tylenol Tab] 500 - 1,000 mg PO Q6H PRN 02/23/20 04/01/20 History Famotidine [Pepcid] 20 mg PO DAILY 04/01/20 04/01/20 History Heparin Sodium,Porcine [Heparin 5,000 unit SQ Q8HR 04/01/20 04/01/20 History Sodium] Pantoprazole Sodium [Protonix] 40 mg PO DAILY 04/01/20 04/01/20 History Sevelamer [Renvela] 800 mg PO TID-W/MEALS 04/01/20 04/01/20 History amLODIPine [Norvasc] 5 mg PO DAILY 04/01/20 04/01/20 History polyethylene glycoL 3350 [Miralax] 17 gm PO DAILY 04/01/20 04/01/20 History Allergies Allergy/AdvReac Type Severity Reaction Status Date / Time Penicillins Allergy Itching Verified 04/01/20 16:24 Physical Exam Vitals: Vital Signs Temp Pulse Pulse Resp BP BP Pulse Ox 04/01/20 16:00 98.3 F 88 18 181/80 96 04/01/20 13:42 93 18 186/89 97 04/01/20 11:15 98.8 F 91 19 157/80 99 Intake and Output 04/01/20 04/01/20 04/01/20 06:59 14:59 22:59 Other: Weight 72.575 kg 72.575 kg PHYSICAL EXAMINATION: GENERAL: The patient is awake alert and able to assess his orientation patient is nonverbal, not in any acute distress. Well developed, well nourished. HEENT: Pupils are round and equally reacting to light. EOMI. No scleral icterus. No conjunctival pallor. Normocephalic, atraumatic. No pharyngeal erythema. No thyromegaly. CARDIOVASCULAR: S1 and S2 present. No murmurs, rubs, or gallops. PULMONARY: Chest is clear to auscultation, no wheezing or crackles. ABDOMEN: Soft, nontender, nondistended, normoactive bowel sounds. No palpable organomegaly. MUSCULOSKELETAL: No joint swelling or deformity. EXTREMITIES: No cyanosis, clubbing, or pedal edema. NEUROLOGICAL: Unable to assess patient is also is awake and alert and is up. To understand the conversation but nonverbal SKIN: No rashes. Results CBC & Chem 7: 04/01/20 11:45 04/01/20 11:45 Labs: Abnormal Lab Results - Last 24 Hours (Table) 04/01/20 04/01/20 Range/Units 11:45 11:45 RBC 2.90 L (3.80-5.40) m/uL Hgb 8.8 L (11.4-16.0) gm/dL Hct 26.6 L (34.0-46.0) % BUN 44 H (7-17) mg/dL Creatinine 7.14 H* (0.52-1.04) mg/dL Glucose 157 H (74-99) mg/dL Thrombosis Risk Factor Assmnt - Choose All That Apply Each Factor Represents 1 point: Age 41-60 years Other Risk Factors: (SQ heparin for CVA) Thrombosis Risk Factor Assessment Total Risk Factor Score: 1 Thrombosis Risk Factor Assessment Level: Low Risk Assessment and Plan Plan: -Breakthrough seizures: Patient has multiple hospitalization for similar complaint neurology will be consulted for leave the decision of further workup and antiseizure medications to neurology due to the complexity of her seizure disorder and because of end-stage renal disease. -End-stage renal disease secondary to diabetic nephropathy. Patient is undergoing hemodialysis at this time -type 2 diabetes mellitus -hypertension -hyperlipidemia -Gastroesophageal reflux disease -Hypothyroidism -Anemia of chronic kidney disease For above-mentioned chronic medical problems once the medications are verified patient will be resumed on those medications
[2020-04-01] MEDS: INSULIN ASPART (NovoLOG) 100 UNIT/ML VIAL SQ SCH ×2 (17:08→20:36)
[2020-04-01] MEDS ORDERED: levETIRAcetam 500 MG TAB PO SCH ×2 (17:15→21:00)
[2020-04-01] MEDS ORDERED: LACOSAMIDE 100 MG PO SCH ×2 (17:15→21:00)
[2020-04-01] MEDS: SEVELAMER 800 MG TAB PO SCH (17:33)
[2020-04-01] MEDS ORDERED: levETIRAcetam IV 500 MG in SODIUM CHLORIDE 0.9% 100 ML IVPB SCH (18:00)
[2020-04-01] MEDS: CALCIUM ACETATE 667 MG TAB PO SCH (18:14)
[2020-04-01] MEDS ORDERED: LACOSAMIDE IV 200 MG in SODIUM CHLORIDE 0.9% 50 ML IVPB ONE (18:15)
--- NOTE | 2020-04-01 18:26 | P.CNNES ---
History of Present Illness Consult date: 04/01/20 Requesting physician: Zbigniew Mccabe Reason for Consult: Breakthrough seizure History of Present Illness: This is a 50-year-old female with history of epilepsy, status post VNS, diabetes, hypertension, end-stage renal disease on hemodialysis, previous CVA, hypertelorism, bipolar, some report of medication noncompliance who presented to the emergency department on 04/01/2020 for breakthrough seizure. I contacted e patient's via phone and he stated that the around 9:00 or 10:00 in the morning patient was having "quivering then she was shaken on the right arm or leg and minimally on the left side. The episode lasted less than 1 minute. Then she was post ictal. He does not recall if she did have gaze deviation and if she did he doesn't know which side it was on. He felt like she did not have that her usual grand mal seizure. EMS was called and they brought her to the hospital. Upon arrival to the hospital she remained to be post ictal. Her usually she is post ictal for 12 hours up to 24 hours. She follows up with Dr. Jr escobar at [facility]. He stated that he added her on clonazepam 10 mg twice a day and that was about 2 month ago. Otherwise she is on the Keppra 500 mg 1 tablet twice a day and gets an additional dose of 500 on Monday and Monday. She is also on Vimpat 100 mg twice a day and an additional dose on Monday after dialysis. She hasn't missed her medications. Her last seizure prior to today. Her was on the March 25, 2020 and she was taken to [facility]. Around 4:55pm per the mechanical laboratory technician she noted that the patient had the shaken on the left side and the the body was shifted to the right lasting for 20 seconds. Then the patient received 1 mg Ativan around 17:03. Her initial vitals were blood pressure of 157/80, heart rate of 91, temperature of 98.7 Fahrenheit and pulse ox of 99 at room air. Workup in the hospital consisted of an EKG and the blood workup. EKG was reported as normal sinus rhythm. Prolonged QT. Ventricular rate of 90. Her creatinine was 7.14, glucose of 157. Calcium of 9.7. Patient was a last seen by our neuro-hospitalist (Dr. Sosa) on 12/27/2019 for breakthrough seizure. She was seen by our neuro hospitalist at multiple times twice in 2019 and 3 times in [address] Sosa's Note patient was on Vimpat 100 mg daily and additional 100 mg every Monday and Monday postdialysis. She is also on Keppra 500mg every 12hrs and additional Keppra 500 every Monday and Monday postdialysis. She is also on Plavix 75mg for secondary stroke prophylaxis. Patient had the previous EEGs last one on 12/19/2019 which was reported as abnormal EEG due to frequent epileptiform activity noted occurring both during wakefulness and drowsiness. This consisted of frequent burst of 2-3 seconds of generalized high amplitude polyspike and single spike and slow wave discharges. These occurred at a rate of 1-2. There were not associate with any clinical movement. This EEG is not unsimilar to prior EEG studies. No clinical seizures occurred. Dr. Sosa recommended to increase Vimpat 100 mg twice a day as well as to take an extra 100 mg post dialysis on Monday and Monday. Patient has a history of seizure disorder since inspector circuitry negative shortly after . She follows up with Dr. Jr escobar at [facility]. Patient peripherally has been on Depakote, Tegretol, phenobarbital and Dilantin. She has a history of stroke with left-sided weakness in the past. Review of Systems Limited but the pertinent positive and negative as per HPI. Past Medical History Past Medical History: Chest Pain / Angina, CVA/TIA, Diabetes Mellitus, Hypertension, Renal Disease, Seizure Disorder, Thyroid Disorder Additional Past Medical History / Comment(s): dialysis, bipolar, neuropathy, baseline orientation person/place, drop foot left, only able to walk short distances with walker or wheelchair History of Any Multi-Drug Resistant Organisms: None Reported Past Surgical History: Section, Tonsillectomy Additional Past Surgical History / Comment(s): left arm fistula, loop recorder, vagus nerve stimulator Past Anesthesia/Blood Transfusion Reactions: No Reported Reaction Past Psychological History: Bipolar Smoking Status: Former smoker Past Alcohol Use History: Occasional Past Drug Use History: None Reported - Past Family History Father Family Medical History: Unable to Obtain Additional Family Medical History / Comment(s): adopted Medications and Allergies Home Medications Medication Instructions Recorded Confirmed Type Clopidogrel [Plavix] 75 mg PO DAILY 02/12/17 04/01/20 History Ergocalciferol (Vitamin D2) 50,000 unit PO Q7D 02/12/17 04/01/20 History [Vitamin D2] Calcium Acetate 667 mg PO AC-TID 11/11/19 04/01/20 History Citalopram Hydrobromide [CeleXA] 10 mg PO DAILY #30 tab 11/15/19 04/01/20 Rx Atorvastatin [Lipitor] 20 mg PO DAILY 12/26/19 04/01/20 History Insulin Glargine [Lantus] 12 unit SQ HS 12/26/19 04/01/20 History Metoprolol Tartrate 25 mg PO BID 12/27/19 04/01/20 History Lacosamide [Vimpat] 100 mg PO DIRECTED 02/20/20 04/01/20 History cloBAZam [Clobazam] 10 mg PO BID 02/20/20 04/01/20 History levETIRAcetam [Keppra] 500 mg PO DIRECTED 02/20/20 04/01/20 History Acetaminophen Tab [Tylenol Tab] 500 - 1,000 mg PO Q6H PRN 02/23/20 04/01/20 History Famotidine [Pepcid] 20 mg PO DAILY 04/01/20 04/01/20 History Heparin Sodium,Porcine [Heparin 5,000 unit SQ Q8HR 04/01/20 04/01/20 History Sodium] Pantoprazole Sodium [Protonix] 40 mg PO DAILY 04/01/20 04/01/20 History Sevelamer [Renvela] 800 mg PO TID-W/MEALS 04/01/20 04/01/20 History amLODIPine [Norvasc] 5 mg PO DAILY 04/01/20 04/01/20 History polyethylene glycoL 3350 [Miralax] 17 gm PO DAILY 04/01/20 04/01/20 History Allergies Allergy/AdvReac Type Severity Reaction Status Date / Time Penicillins Allergy Itching Verified 04/01/20 16:24 Physical Examination - Vital Signs Vital Signs: Vital Signs Temp Pulse Pulse Resp BP BP Pulse Ox 04/01/20 16:00 98.3 F 88 18 181/80 96 04/01/20 13:42 93 18 186/89 97 04/01/20 11:15 98.8 F 91 19 157/80 99 Intake and Output 04/01/20 04/01/20 04/01/20 06:59 14:59 22:59 Other: Weight 72.575 kg 72.575 kg GENERAL: The patient is lying in bed, did not seem in distress and currently getting dialysis. CHEST: The heart rate is regular rate rhythm. No murmurs to auscultation. LUNG: Clear to auscultation bilaterally no wheezing noted throughout. Not labored breathing. ABDOMEN/GI: Bowel sounds present in all 4 quadrants. No tenderness to palpation throughout. NEUROLOGICAL: Higher mental function: The patient is awake, alert, not verbally responsive or following commands. Cranial nerves: The pupils are round, equal and reactive to light. Primary gaze is midline laterally. Visual reich are full to threat throughout. Patient is tracking in the knee throughout the room and no nystagmus was appreciated. No facial weakness noted. Motor: Strength could not be assessed because of the patient condition. But that she was able to lift up right upper extremity and the at one time above gravity. . Sensation: Could not be assessed because of condition. Reflexes (right/left): Patient has brisk reflexes over the left. Plantars are upgoing bilaterally. Results AST of 23, ALTs of 13. - Laboratory Findings CBC and BMP: 04/01/20 11:45 04/01/20 11:45 Abnormal Lab Findings: Abnormal Labs 04/01/20 04/01/20 11:45 11:45 RBC 2.90 L Hgb 8.8 L Hct 26.6 L BUN 44 H Creatinine 7.14 H* Glucose 157 H Assessment and Plan Assessment: Long-standing history of seizure disorder, comes with a breakthrough seizure. History of CVA with left hemiparesis End-stage renal disease on hemodialysis Diabetes Hypertension Plan: Since the patient was post ictal him given patient 200 mg for today. then I increased the Vimpat, 100 mg twice a day to 150mg, 3 times a day with the continuation of for additional 100 mg on Monday and Monday postdialysis. Continue Keppra 500 mg twice a day with an additional 500 mg on Monday and Monday postdialysis. We'll continue clonazepam 10 mg twice a day. Regarding her seizure medication I placed the patient IV since the patient unable to swallow because of her condition. We'll resume the by mouth medication once the patient is back to baseline. Continue Plavix 75 mg daily as well as Lipitor 20mg for secondary stroke prophylaxis. The plan was discussed with the patient's . Thank you for the consult. Tomorrow Dr. Sosa will start coverage. Cristhian Luevano M.D. Neuro-hospitalist Time with Patient: Greater than 30
[2020-04-01 20:26] LABS: Glucose,Whole Blood 143 mg/dL (75-99)
[2020-04-01] MEDS: METOPROLOL TARTRATE 25 MG TAB PO SCH (20:36)
[2020-04-01] MEDS: levETIRAcetam IV 500 MG in SODIUM CHLORIDE 0.9% 100 ML IVPB SCH (20:37)
[2020-04-01] MEDS: CLOBAZAM 10 MG PO SCH (20:37)
[2020-04-01] MEDS ORDERED: INSULIN DETEMIR (LEVEMIR) 100 UNIT/ML SYR SQ SCH (21:00)
[2020-04-01] MEDS ORDERED: LACOSAMIDE IV 100 MG in SODIUM CHLORIDE 0.9% 50 ML IVPB SCH (21:00)
[2020-04-01] MEDS: HEPARIN SODIUM,PORCINE 5,000 UNIT/ML 1 ML VIAL SQ SCH (23:19)
[2020-04-02 06:58] LABS: Glucose,Whole Blood 116 mg/dL (75-99)
[2020-04-02] MEDS: INSULIN ASPART (NovoLOG) 100 UNIT/ML VIAL SQ SCH ×2 (07:20→12:37)
[2020-04-02] MEDS: CALCIUM ACETATE 667 MG TAB PO SCH ×2 (07:26→12:35)
[2020-04-02] MEDS: SEVELAMER 800 MG TAB PO SCH ×2 (07:27→12:35)
[2020-04-02] MEDS ORDERED: PANTOPRAZOLE 40 MG TABLET PO SCH (07:30)
[2020-04-02] MEDS: levETIRAcetam IV 500 MG in SODIUM CHLORIDE 0.9% 100 ML IVPB SCH (08:24)
[2020-04-02] MEDS: METOPROLOL TARTRATE 25 MG TAB PO SCH (08:30)
[2020-04-02] MEDS: CLOBAZAM 10 MG PO SCH (08:34)
[2020-04-02] MEDS: HEPARIN SODIUM,PORCINE 5,000 UNIT/ML 1 ML VIAL SQ SCH ×2 (08:38→15:42)
[2020-04-02] MEDS ORDERED: polyethylene glycoL 3350 17 GM POWD.PACK PO SCH (09:00)
[2020-04-02] MEDS ORDERED: FAMOTIDINE 20 MG TAB PO SCH (09:00)
[2020-04-02] MEDS ORDERED: LACOSAMIDE IV 150 MG in SODIUM CHLORIDE 0.9% 50 ML IVPB SCH (09:00)
[2020-04-02] MEDS ORDERED: ATORVASTATIN 20 MG TAB PO SCH (09:00)
[2020-04-02] MEDS ORDERED: amLODIPine 5 MG TAB PO SCH (09:00)
[2020-04-02] MEDS ORDERED: CITALOPRAM HYDROBROMIDE 10 MG TAB PO SCH (09:00)
[2020-04-02] MEDS ORDERED: CLOPIDOGREL 75 MG TAB PO SCH (09:00)
--- NOTE | 2020-04-02 10:03 | P.NPCON ---
History of Present Illness - Reason for Consult end stage renal disease - History of Present Illness Reason for consultation: End-stage renal disease History of present illness: Patient is a 50-year-old female seen in renal consultation for end-stage renal disease. She is maintained on hemodialysis on Monday schedule. Patient presented to the hospital due to seizures. She was dialyzed in the hospital yesterday. She did have a seizure during dialysis and again overnight. She is currently maintained on IV Keppra as well as lacosamide. She is currently awake and alert. Denies chest pain or shortness of breath. No vomiting or diarrhea. No fever or chills. Patient has history of seizure disorder and has frequent seizures. No chest pain or shortness of breath. No edema. blood pressure stable. No other complaints. She wants to go home. Vital signs are stable. General: The patient appeared well nourished and normally developed. HEENT: Head exam is unremarkable. Neck is without jugular venous distension. LUNGS: Lungs are clear to auscultation and percussion. Breath sounds decreased. HEART: Rate and Rhythm are regular. First and second heart sounds normal. No murmurs, rubs or gallops. ABDOMEN: soft, nontender. EXTREMITITES: No clubbing, cyanosis, or edema. Past Medical History Past Medical History: Chest Pain / Angina, CVA/TIA, Diabetes Mellitus, Hypertension, Renal Disease, Seizure Disorder, Thyroid Disorder Additional Past Medical History / Comment(s): dialysis, bipolar, neuropathy, baseline orientation person/place, drop foot left, only able to walk short distances with walker or wheelchair History of Any Multi-Drug Resistant Organisms: None Reported Past Surgical History: Section, Tonsillectomy Additional Past Surgical History / Comment(s): left arm fistula, loop recorder, vagus nerve stimulator Past Anesthesia/Blood Transfusion Reactions: No Reported Reaction Past Psychological History: Bipolar Smoking Status: Former smoker Past Alcohol Use History: Occasional Past Drug Use History: None Reported - Past Family History Father Family Medical History: Unable to Obtain Additional Family Medical History / Comment(s): adopted Medications and Allergies Home Medications Medication Instructions Recorded Confirmed Type Clopidogrel [Plavix] 75 mg PO DAILY 02/12/17 04/01/20 History Ergocalciferol (Vitamin D2) 50,000 unit PO Q7D 02/12/17 04/01/20 History [Vitamin D2] Calcium Acetate 667 mg PO AC-TID 11/11/19 04/01/20 History Citalopram Hydrobromide [CeleXA] 10 mg PO DAILY #30 tab 11/15/19 04/01/20 Rx Atorvastatin [Lipitor] 20 mg PO DAILY 12/26/19 04/01/20 History Insulin Glargine [Lantus] 12 unit SQ HS 12/26/19 04/01/20 History Metoprolol Tartrate 25 mg PO BID 12/27/19 04/01/20 History Lacosamide [Vimpat] 100 mg PO DIRECTED 02/20/20 04/01/20 History cloBAZam [Clobazam] 10 mg PO BID 02/20/20 04/01/20 History levETIRAcetam [Keppra] 500 mg PO DIRECTED 02/20/20 04/01/20 History Acetaminophen Tab [Tylenol Tab] 500 - 1,000 mg PO Q6H PRN 02/23/20 04/01/20 History Famotidine [Pepcid] 20 mg PO DAILY 04/01/20 04/01/20 History Heparin Sodium,Porcine [Heparin 5,000 unit SQ Q8HR 04/01/20 04/01/20 History Sodium] Pantoprazole Sodium [Protonix] 40 mg PO DAILY 04/01/20 04/01/20 History Sevelamer [Renvela] 800 mg PO TID-W/MEALS 04/01/20 04/01/20 History amLODIPine [Norvasc] 5 mg PO DAILY 04/01/20 04/01/20 History polyethylene glycoL 3350 [Miralax] 17 gm PO DAILY 04/01/20 04/01/20 History Allergies Allergy/AdvReac Type Severity Reaction Status Date / Time Penicillins Allergy Itching Verified 04/01/20 16:24 Physical Exam Vitals: Vital Signs Temp Pulse Pulse Resp BP BP Pulse Ox 04/02/20 08:06 97.8 F 86 16 153/74 97 04/02/20 07:00 98.7 F 81 16 149/81 100 04/02/20 04:00 20 04/02/20 00:45 99 F 122 H 20 140/72 94 L 04/01/20 23:50 18 09/09/20 19:35 98.3 F 107 H 20 120/67 100 04/01/20 18:50 107 H 20 04/01/20 17:55 98.2 F 109 H 18 150/87 04/01/20 17:12 156/86 04/01/20 16:55 190/110 04/01/20 16:00 98.3 F 88 18 181/80 96 04/01/20 13:42 93 18 186/89 97 04/01/20 11:15 98.8 F 91 19 157/80 99 Intake and Output 04/01/20 04/02/20 04/02/20 22:59 06:59 14:59 Intake Total 200 Output Total 2500 Balance -2500 200 Intake: Intake, IV Titration 200 Amount levETIRAcetam IV 500 mg 200 In Sodium Chloride 0.9% 100 ml @ 400 mls/hr IVPB Q12HR [facility] Rx#:[id number] Output: Hemodialysis 2500 Other: Voiding Method Diaper # Voids 2 2 Weight 72.575 kg Results - Lab Results Most recent lab results Calcium 9.7 mg/dL (8.4-10.2) 04/01/20 11:45 04/01/20 11:45 04/01/20 11:45 Assessment and Plan Plan: assessment: 1. End-stage renal disease maintained on hemodialysis on Monday schedule. 2. Seizure disorder maintained on antiseizure medications. neurology following. 3. Chronic kidney disease mineral bone disease maintained on phosphate binders. 4. Hypertension with chronic kidney disease. Controlled. 5. Diabetes mellitus. 6. Anemia of chronic kidney disease. Rule out iron deficiency. Plan: Hemodialysis tomorrow. Check iron studies. Thank you for the consultation. I will continue to follow patient with you during her hospital stay.
[2020-04-02] MEDS ORDERED: HYDROcodone/APAP 5-325MG 1 EACH TAB PO PRN (11:14)
[2020-04-02 11:40] LABS: Glucose,Whole Blood 143 mg/dL (75-99)
--- NOTE | 2020-04-02 14:21 | P.PN ---
Subjective Progress Note Date: 04/02/20 Principal diagnosis: 50-year-old the female well-known to me from her previous physician patient had multiple hospital physician for breakthrough seizures patient is presently on V impat and Keppra. Patient usually will take an additional Keppra dose after the dialysis. Unable to often any History from the patient patient evidently presented with seizures patient appears to be postictal at this time patient is also undergoing hemodialysis at this time. Patient is awake but nonverbal and unable to provide any history to me. 04/02/2020 Patient is seen and evaluated and follow-up for breakthrough seizures and neurology along with nephrology following. Patient is maintained on Monday/Monday/Monday hemodialysis and received dialysis yesterday. Patient will continue with his dialysis treatment in the morning. Neurology evaluated the patient recommending Vimpat and 50 mg 3 times daily with an additional dose of 100 mg on dialysis days, and Keppra 500 mg twice daily with an additional 500 mg on dialysis days status post dialysis. Patient continues to be lethargic although is much more awake and alert today. Patient is able to answer questions and respond appropriately. Review of systems: Constitutional: Reports fatigue, no reports of fever, or chills Cardiovascular: No reports of chest pain or palpitations Respiratory: No reports of shortness of breath or cough GI: No reports of nausea, vomiting, or diarrhea : No reports of dysuria or retention Neurovascular: Reports weakness with no reports of numbness All medications have been reviewed Objective - Vital Signs Vital signs: Vital Signs Temp 98.1 F 04/02/20 13:03 Pulse 80 04/02/20 13:03 Resp 16 04/02/20 13:03 BP 140/66 04/02/20 13:03 Pulse Ox 98 04/02/20 13:03 Intake & Output 04/01/20 04/02/20 04/02/20 18:59 06:59 18:59 Intake Total 200 Output Total 2500 Balance -2500 200 Weight 72.575 kg Intake: Intake, IV Titration 200 Amount levETIRAcetam IV 500 mg 200 In Sodium Chloride 0.9% 100 ml @ 400 mls/hr IVPB Q12HR [facility] Rx#:[id number] Output: Hemodialysis 2500 Other: Voiding Method Diaper # Voids 2 - Exam GENERAL: The patient is lethargic although arousable, alert and able to assess orientation, not in any acute distress. Well developed, well nourished. HEENT: Pupils are round and equally reacting to light. EOMI. No scleral icterus. No conjunctival pallor. Normocephalic, atraumatic. No pharyngeal erythema. No thyromegaly. CARDIOVASCULAR: S1 and S2 present. No murmurs, rubs, or gallops. PULMONARY: Chest is clear to auscultation, no wheezing or crackles. ABDOMEN: Soft, nontender, nondistended, normoactive bowel sounds. No palpable organomegaly. MUSCULOSKELETAL: No joint swelling or deformity. EXTREMITIES: No cyanosis, clubbing, or pedal edema. NEUROLOGICAL: Alert 2-3, Lethargic but responds to questions and commands appropriately SKIN: No rashes. - Labs CBC & Chem 7: 04/01/20 11:45 04/01/20 11:45 Labs: Abnormal Lab Results - Last 24 Hours (Table) 04/01/20 04/01/20 04/01/20 Range/Units 11:45 11:45 20:18 RBC 2.90 L (3.80-5.40) m/uL Hgb 8.8 L (11.4-16.0) gm/dL Hct 26.6 L (34.0-46.0) % BUN 44 H (7-17) mg/dL Creatinine 7.14 H* (0.52-1.04) mg/dL Glucose 157 H (74-99) mg/dL POC Glucose (mg/dL) 143 H (75-99) mg/dL 04/02/20 04/02/20 Range/Units 06:57 11:39 RBC (3.80-5.40) m/uL Hgb (11.4-16.0) gm/dL Hct (34.0-46.0) % BUN (7-17) mg/dL Creatinine (0.52-1.04) mg/dL Glucose (74-99) mg/dL POC Glucose (mg/dL) 116 H 143 H (75-99) mg/dL Assessment and Plan Assessment: -Breakthrough seizures: Patient has multiple hospitalization for similar complaint, neurology following. -End-stage renal disease secondary to diabetic nephropathy. Patient is undergoing hemodialysis and nephrology following. Patient will continue with M /Monday/Monday schedule and is to receive hemodialysis tomorrow. -type 2 diabetes mellitus -hypertension -hyperlipidemia -Gastroesophageal reflux disease -Hypothyroidism -Anemia of chronic kidney disease Plan: Continue current medications, management, and symptomatic treatment. Nephrology along with neurology following and medication adjustments have been made. Nephrology also following and patient will be receiving dialysis in the morning. Patient did receive dialysis yesterday and will continue on Monday/Monday/Monday schedule. Case management and social work following and patient will continue with home care in the outpatient setting. Will repeat a.m. labs. Further recommendations to follow. Anticipate discharge in 24 hours.
[2020-04-02 14:40] VITALS: BP 154/63; PULSE 78; RESP 18; TEMP 96.6
--- NOTE | 2020-04-02 17:51 | P.PN ---
Subjective Progress Note Date: 04/02/20 Patient was seen for a follow-up. Initial consultation performed by Dr. Cristhian Luevano. Please refer to his note. Patient with history of seizure disorder since childhood, also has end-stage renal disease on hemodialysis, came with breakthrough seizures. Objective - Vital Signs Vital signs: Vital Signs Temp 96.6 F L 04/02/20 14:39 Pulse 78 04/02/20 14:39 Resp 18 04/02/20 14:39 BP 154/63 04/02/20 14:39 Pulse Ox 97 04/02/20 14:39 Intake & Output 04/01/20 04/02/20 04/02/20 18:59 06:59 18:59 Intake Total 200 540 Output Total 2500 Balance -2500 200 540 Weight 72.575 kg Intake: Intake, IV Titration 200 Amount levETIRAcetam IV 500 mg 200 In Sodium Chloride 0.9% 100 ml @ 400 mls/hr IVPB Q12HR [facility] Rx#:[id number] Oral 540 Output: Hemodialysis 2500 Other: Voiding Method Diaper # Voids 2 1 - Exam Patient is laying comfortably in the bed. Very pleasant, in no distress. Her mentation appears stable. Strength is slightly decreased on the left. Detail examination deferred. - Labs CBC & Chem 7: 04/01/20 11:45 04/01/20 11:45 Labs: Abnormal Lab Results - Last 24 Hours (Table) 04/01/20 04/02/20 04/02/20 Range/Units 20:18 06:57 11:39 POC Glucose (mg/dL) 143 H 116 H 143 H (75-99) mg/dL Assessment and Plan Assessment: * Long-standing history of seizure disorder, came with breakthrough seizure. * History of CVA with left hemiparesis. * End-stage renal disease on hemodialysis * Diabetes * Hypertension Plan: * Patient now on Vimpat 150 mg twice a day, with an extra 100 mg post dialysis on Monday and Monday. * Continue Keppra 500 mg twice a day with an additional 500 mg on Monday and Monday post dialysis. * Continue Plavix 75 mg daily and Lipitor 20 mg for secondary stroke prophylaxis. * Neurologically clear for discharge. Recommend patient to follow up with her neurologist in 1-2 weeks.
[2020-04-02] MEDS ORDERED: levETIRAcetam 500 MG TAB PO SCH (21:00)
[2020-04-02] MEDS ORDERED: LACOSAMIDE 150 MG TABLET PO SCH (21:00)
--- NOTE | 2020-04-03 08:55 | P.DS ---
Providers Date of admission: 04/01/20 14:01 Expected date of discharge: 04/02/20 Attending physician: Zbigniew Mccabe Consults: 04/01/20 14:05 Consult Physician Urgent Consulting Provider: Martínez Mcgovern Consult Reason/Comments: Dialysis Do you want consulting provider notified?: Yes 04/01/20 16:30 Consult Physician Routine Consulting Provider: Cristhian Luevano Consult Reason/Comments: Breakthrough seizures Do you want consulting provider notified?: Yes Primary care physician: Geoffrey Somers Hospital Course: Final diagnosis -Breakthrough seizures: Patient has multiple hospitalization for similar complaint, neurology following. -End-stage renal disease secondary to diabetic nephropathy -type 2 diabetes mellitus -hypertension -hyperlipidemia -Gastroesophageal reflux disease -Hypothyroidism -Anemia of chronic kidney disease Discharge disposition Patient is being discharged in a stable condition with guarded prognosis to home. She will continue with home care in the outpatient setting. Patient will follow-up with Dr. Somers in the outpatient setting upon discharge. Patient also instructed to follow-up with neurologist in the outpatient setting in 1-2 weeks. Patient to continue with hemodialysis on Monday/Monday/Monday. Total time taken is greater than 35 minutes. History of present illness This is a 50-year-old female who was recently admitted with breakthrough seizures and was being closely monitored. Patient is also hemodialysis dependent and was evaluated and followed by nephrology. Patient underwent hemodialysis yesterday and will continue with her Monday/Monday/Monday treatments. Patient was also seen by neurology recommending an increase in Vimpat 250 mg 3 times daily with an additional dose of 100 mg status post dialysis days along with Keppra 500 mg twice daily and additional dose of 500 mg on Monday/Monday/Monday status post dialysis. Patient instructed to follow- up with her primary care provider along with neurology in the next week. Patient's mentation improved and is at baseline and is requesting to go home today. Patient will continue with home care in the outpatient setting and will be taking her home. Patient does have a history of multiple hospitalizations due to breakthrough seizures and possible noncompliance with medications and follow-up in the outpatient setting. Currently no reports of chest pain, shortness of breath, or palpitations. Patient is afebrile. No reports of nausea or vomiting and patient is tolerating diet. Patient will be discharged home today. Guarded prognosis. On exam vital signs are stable. Temp is 98.1F, pulse is 78, respirations are 18, blood pressure is 154/63, oxygen saturation is 97% on 2 L via nasal cannula. Cardio S1, S2 are muffled. Respiratory system shows diminished breath sounds at the bases with no wheezing or rhonchi noted. Abdomen is soft and nontender. Nervous system shows no focal deficits. Please refer to medication reconciliation sheet for a list of medications. Patient Condition at Discharge: Fair Plan - Discharge Summary Discharge Rx Participant: No New Discharge Prescriptions: Changed levETIRAcetam [Keppra] 500 mg PO BID #90 cap Lacosamide [Vimpat] 150 mg PO TID #90 cap No Action Ergocalciferol (Vitamin D2) [Vitamin D2] 50,000 unit PO Q7D Clopidogrel [Plavix] 75 mg PO DAILY Calcium Acetate 667 mg PO AC-TID Citalopram Hydrobromide [CeleXA] 10 mg PO DAILY #30 tab Atorvastatin [Lipitor] 20 mg PO DAILY Insulin Glargine [Lantus] 12 unit SQ HS Metoprolol Tartrate 25 mg PO BID cloBAZam [Clobazam] 10 mg PO BID Acetaminophen Tab [Tylenol] 500 - 1,000 mg PO Q6H PRN PRN Reason: Fever And/ Or Pain Heparin Sodium,Porcine [Heparin Sodium] 5,000 unit SQ Q8HR amLODIPine [Norvasc] 5 mg PO DAILY Sevelamer [Renvela] 800 mg PO TID-W/MEALS Pantoprazole Sodium [Protonix] 40 mg PO DAILY Famotidine [Pepcid] 20 mg PO DAILY polyethylene glycoL 3350 [Miralax] 17 gm PO DAILY Discharge Medication List Clopidogrel [Plavix] 75 mg PO DAILY 02/12/17 [History] Ergocalciferol (Vitamin D2) [Vitamin D2] 50,000 unit PO Q7D 02/12/17 [History] Calcium Acetate 667 mg PO AC-TID 11/11/19 [History] Citalopram Hydrobromide [CeleXA] 10 mg PO DAILY #30 tab 11/15/19 [Rx] Atorvastatin [Lipitor] 20 mg PO DAILY 12/26/19 [History] Insulin Glargine [Lantus] 12 unit SQ HS 12/26/19 [History] Metoprolol Tartrate 25 mg PO BID 12/27/19 [History] cloBAZam [Clobazam] 10 mg PO BID 02/20/20 [History] Acetaminophen Tab [Tylenol] 500 - 1,000 mg PO Q6H PRN 02/23/20 [History] Famotidine [Pepcid] 20 mg PO DAILY 04/01/20 [History] Heparin Sodium,Porcine [Heparin Sodium] 5,000 unit SQ Q8HR 04/01/20 [History] Pantoprazole Sodium [Protonix] 40 mg PO DAILY 04/01/20 [History] Sevelamer [Renvela] 800 mg PO TID-W/MEALS 04/01/20 [History] amLODIPine [Norvasc] 5 mg PO DAILY 04/01/20 [History] polyethylene glycoL 3350 [Miralax] 17 gm PO DAILY 04/01/20 [History] Lacosamide [Vimpat] 150 mg PO TID #90 cap 04/02/20 [Rx] levETIRAcetam [Keppra] 500 mg PO BID #90 cap 04/02/20 [Rx] Follow up Appointment(s)/Referral(s): Geoffrey Somers MD [Primary Care Provider] - 04/08/20 1:30 pm [facility], [NON-STAFF] - Activity/Diet/Wound Care/Special Instructions: Activity Limited until follow-up Follow-up with primary care provider upon discharge follow up with neurology in the outpatient setting Continue with home care Continue dialysis Monday/Monday/Monday Continue taking Vimpat 150 mg 3 times daily with an additional 100 mg on dialysis days after dialysis Continue taking Keppra 500 mg twice daily with an additional 500 mg on dialysis days after dialysis Continue to monitor blood sugars before meals at bedtime and keep a diary for primary follow-up Discharge Disposition: HOME WITH HOME HEALTH SERVICES
[2020-04-03] MEDS ORDERED: LACOSAMIDE 50 MG TABLET PO SCH (09:00)
[2020-04-03] MEDS ORDERED: levETIRAcetam 500 MG TAB PO SCH (09:00)
[2020-04-03] MEDS ORDERED: LACOSAMIDE IV 100 MG in SODIUM CHLORIDE 0.9% 50 ML IVPB SCH (18:00)
== END 2020-04-02 16:25 | disposition home health service (06) | DRG 100 ==
LOC: EC 11:10 → 4SSUR 14:01
PROVIDERS: ADMIT Internal Medicine; ATTEND Internal Medicine
PROC: 5A1D70Z Performance of Urinary Filtration, Intermittent, Less than 6 Hours Per Day (ICD-10-PCS; principal; 2020-04-01)
DX: G40.909 Epilepsy, unspecified, not intractable, without status epilepticus (principal); N18.6 End stage renal disease; I69.354 Hemiplegia and hemiparesis following cerebral infarction affecting left non-dominant side; E78.5 Hyperlipidemia, unspecified; D63.1 Anemia in chronic kidney disease; K21.9 Gastro-esophageal reflux disease without esophagitis; E03.9 Hypothyroidism, unspecified; Z99.2 Dependence on renal dialysis; M89.8X9 Other specified disorders of bone, unspecified site; E11.22 Type 2 diabetes mellitus with diabetic chronic kidney disease; E11.42 Type 2 diabetes mellitus with diabetic polyneuropathy; I10 Essential (primary) hypertension; Z79.02 Long term (current) use of antithrombotics/antiplatelets; Z79.4 Long term (current) use of insulin; Z79.82 Long term (current) use of aspirin; Z79.899 Other long term (current) drug therapy; Z87.891 Personal history of nicotine dependence; Z91.14 Patient's other noncompliance with medication regimen; Z91.15 Patient's noncompliance with renal dialysis
CPT/HCPCS: 36415; 80053; 85025; 90935; 93005; 96360; 99285

== ENCOUNTER 2020-06-13 15:11 | Emergency (ER) | payer MEDICARE, OTHER ==
[2020-06-13 15:21] VITALS: RESP 16; TEMP 98.5
--- NOTE | 2020-06-13 15:57 | ED ---
General Adult HPI - General Chief complaint: Neuro Symptoms/Deficit Stated complaint: neuro issues Time Seen by Provider: 06/13/20 15:13 Source: patient, EMS, RN notes reviewed, old records reviewed Mode of arrival: EMS Limitations: no limitations, altered mental status - History of Present Illness Initial comments: 50-year-old female presenting for concern that the patient may be about to have a seizure. She has a seizure disorder and apparently [facility] the patient had become somewhat glassy eyed and called EMS with concern that the patient would have a seizure. She is alert and oriented to time my evaluation. She has no headache, no physical complaints. No nausea vomiting. No fever. She is on hemodialysis with end-stage renal disease. She states she had dialysis yesterday which was Monday. No dyspnea. She is on Keppra and states she has been compliant. - Related Data Home Medications Medication Instructions Recorded Confirmed Clopidogrel [Plavix] 75 mg PO DAILY 02/12/17 04/01/20 Ergocalciferol (Vitamin D2) 50,000 unit PO Q7D 02/12/17 04/01/20 [Vitamin D2] Calcium Acetate 667 mg PO AC-TID 11/11/19 04/01/20 Atorvastatin [Lipitor] 20 mg PO DAILY 12/26/19 04/01/20 Insulin Glargine [Lantus] 12 unit SQ HS 12/26/19 04/01/20 Metoprolol Tartrate 25 mg PO BID 12/27/19 04/01/20 cloBAZam [Clobazam] 10 mg PO BID 02/20/20 04/01/20 Acetaminophen Tab [Tylenol] 500 - 1,000 mg PO Q6H PRN 02/23/20 04/01/20 Famotidine [Pepcid] 20 mg PO DAILY 04/01/20 04/01/20 Heparin Sodium,Porcine [Heparin 5,000 unit SQ Q8HR 04/01/20 04/01/20 Sodium] Pantoprazole Sodium [Protonix] 40 mg PO DAILY 04/01/20 04/01/20 Sevelamer [Renvela] 800 mg PO TID-W/MEALS 04/01/20 04/01/20 amLODIPine [Norvasc] 5 mg PO DAILY 04/01/20 04/01/20 polyethylene glycoL 3350 [Miralax] 17 gm PO DAILY 04/01/20 04/01/20 Previous Rx's Medication Instructions Recorded Citalopram Hydrobromide [CeleXA] 10 mg PO DAILY #30 tab 11/15/19 Lacosamide [Vimpat] 150 mg PO TID #90 cap 04/02/20 levETIRAcetam [Keppra] 500 mg PO BID #90 cap 04/02/20 Acetaminophen-Codeine 300-30mg 1 tab PO Q6H PRN 3 Days #12 tablet 06/13/20 [Tylenol w/codeine #3] Allergies Allergy/AdvReac Type Severity Reaction Status Date / Time Penicillins Allergy Itching Verified 04/01/20 16:24 Review of Systems ROS Statement: Those systems with pertinent positive or pertinent negative responses have been documented in the HPI. ROS Other: All systems not noted in ROS Statement are negative. Past Medical History Past Medical History: Chest Pain / Angina, CVA/TIA, Diabetes Mellitus, Hypertension, Renal Disease, Seizure Disorder, Thyroid Disorder Additional Past Medical History / Comment(s): dialysis, bipolar, neuropathy, baseline orientation person/place, drop foot left, only able to walk short distances with walker or wheelchair History of Any Multi-Drug Resistant Organisms: None Reported Past Surgical History: Section, Tonsillectomy Additional Past Surgical History / Comment(s): left arm fistula, loop recorder, vagus nerve stimulator Past Anesthesia/Blood Transfusion Reactions: No Reported Reaction Past Psychological History: Bipolar Smoking Status: Former smoker Past Alcohol Use History: Occasional Past Drug Use History: None Reported - Past Family History Father Family Medical History: Unable to Obtain Additional Family Medical History / Comment(s): adopted General Exam Limitations: no limitations, altered mental status General appearance: alert, in no apparent distress Head exam: Present: atraumatic, normocephalic Eye exam: Present: normal appearance, PERRL ENT exam: Present: normal exam Neck exam: Present: normal inspection. Absent: tenderness, meningismus Respiratory exam: Present: normal lung sounds bilaterally. Absent: respiratory distress, wheezes Cardiovascular Exam: Present: regular rate, normal rhythm GI/Abdominal exam: Present: soft. Absent: distended, tenderness, guarding Extremities exam: Present: normal inspection, normal capillary refill. Absent: pedal edema Back exam: Present: normal inspection Neurological exam: Present: alert, oriented X3, CN II-XII intact. Absent: motor sensory deficit Psychiatric exam: Present: normal affect, normal mood Skin exam: Present: warm, dry, intact. Absent: cyanosis, diaphoretic Course Vital Signs 06/13/20 06/13/20 15:16 16:20 Temperature 98.5 F Pulse Rate 84 77 Respiratory 16 16 Rate Blood Pressure 159/81 155/85 O2 Sat by Pulse 100 99 Oximetry EKG Findings - EKG Comments: EKG Findings:: EKG: Sinus rhythm, rate 75, [place] interval 174, QRS duration 84, QTC 473, no ST segment elevation. Medical Decision Making - Medical Decision Making 50-year-old female presenting for evaluation of the possibility of a seizure. Patient is slow to respond, she is able to answer questions. She is alert and oriented 3. She has no new focal findings. Workup is initiated, normal CBC, CMP showing chronic renal failure with no other acute findings. Keppra level has been ordered and is pending. Head CT is performed which is negative for intracranial hemorrhage or mass effect. I did discuss her presentation with her who states that she is at baseline. She does have good outpatient follow-up and will follow-up with her neurologist. There has been no witnessed seizure activity. - Lab Data Result diagrams: 06/13/20 15:46 06/13/20 15:46 Lab Results 06/13/20 06/13/20 Range/Units 15:46 15:46 WBC 6.0 (3.8-10.6) k/uL RBC 3.85 (3.80-5.40) m/uL Hgb 11.6 (11.4-16.0) gm/dL Hct 34.0 (34.0-46.0) % MCV 88.1 (80.0-100.0) fL MCH 30.0 (25.0-35.0) pg MCHC 34.0 (31.0-37.0) g/dL RDW 14.7 (11.5-15.5) % Plt Count 218 (150-450) k/uL MPV 8.4 Neutrophils % 49 % Lymphocytes % 39 % Monocytes % 7 % Eosinophils % 3 % Basophils % 1 % Neutrophils # 2.9 (1.3-7.7) k/uL Lymphocytes # 2.3 (1.0-4.8) k/uL Monocytes # 0.4 (0-1.0) k/uL Eosinophils # 0.2 (0-0.7) k/uL Basophils # 0.1 (0-0.2) k/uL Sodium 137 (137-145) mmol/L Potassium 4.7 (3.5-5.1) mmol/L Chloride 96 L (98-107) mmol/L Carbon Dioxide 27 (22-30) mmol/L Anion Gap 14 mmol/L BUN 31 H (7-17) mg/dL Creatinine 7.75 H* (0.52-1.04) mg/dL Est GFR (CKD-EPI)AfAm 6 (>60 ml/min/1.73 sqM) Est GFR (CKD-EPI)NonAf 5 (>60 ml/min/1.73 sqM) Glucose 199 H (74-99) mg/dL Calcium 9.3 (8.4-10.2) mg/dL Total Bilirubin 0.4 (0.2-1.3) mg/dL AST 19 (14-36) U/L ALT 13 (4-34) U/L Alkaline Phosphatase 107 (38-126) U/L Total Protein 7.1 (6.3-8.2) g/dL Albumin 4.1 (3.5-5.0) g/dL Disposition Clinical Impression: Seizure disorder Disposition: HOME SELF-CARE Condition: Fair Instructions (If sedation given, give patient instructions): Recurrent Seizures in Adults (ED) Prescriptions: Acetaminophen-Codeine 300-30mg [Tylenol w/codeine #3] 1 tab PO Q6H PRN 3 Days #12 tablet PRN Reason: Pain Is patient prescribed a controlled substance at d/c from ED?: No Referrals: Geoffrey Somers MD [Primary Care Provider] - 1-2 days Time of Disposition: 17:19
[2020-06-13 16:05] LABS: Basophils # (A) 0.1 k/uL (0-0.2); Basophils % (A) 1 %; Eosinophils # (A) 0.2 k/uL (0-0.7); Eosinophils % (A) 3 %; HGB 11.6 gm/dL (11.4-16.0); Lymphocytes # (A) 2.3 k/uL (1.0-4.8); Lymphocytes % (A) 39 %; MCV 88.1 fL (80.0-100.0); Mean Platelet Volume 8.4; Monocytes # (A) 0.4 k/uL (0-1.0); Monocytes % (A) 7 %; Neutrophils # (A) 2.9 k/uL (1.3-7.7); Neutrophils % (A) 49 %; Platelet Count 218 k/uL (150-450); RBC 3.85 m/uL (3.80-5.40); RDW 14.7 % (11.5-15.5)
[2020-06-13 16:11] LABS: Albumin 4.1 g/dL (3.5-5.0); Calcium 9.3 mg/dL (8.4-10.2); Total Bilirubin 0.4 mg/dL (0.2-1.3); Total Protein 7.1 g/dL (6.3-8.2)
[2020-06-13 16:37] LABS: Potassium 4.7 mmol/L (3.5-5.1)
[2020-06-13] MEDS ORDERED: HYDROcodone/APAP 5-325MG 1 EACH TAB PO STA (16:46)
--- NOTE | 2020-06-13 16:54 | CT ---
EXAMINATION TYPE: CT brain wo con DATE OF EXAM: 06/13/2020 COMPARISON: 02/23/2020. HISTORY: Seizure activity. CT DLP: 1115.4 mGycm Automated exposure control for dose reduction was used. FINDINGS: There is no acute intracranial hemorrhage, mass effect, midline shift or hydrocephalus. There is mild white matter disease and parenchymal volume loss. 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 The calv arium is intact. The paranasal sinuses and mastoid air cells are adequately aerated. IMPRESSION: NO ACUTE INTRACRANIAL ABNORMALITY.
[2020-06-13 17:44] VITALS: BP 146/83; PULSE 74
== END 2020-06-13 17:33 | disposition home or self-care (01) ==
LOC: EC 15:11
DX: G40.909 Epilepsy, unspecified, not intractable, without status epilepticus (principal); I12.0 Hypertensive chronic kidney disease with stage 5 chronic kidney disease or end stage renal disease; E11.22 Type 2 diabetes mellitus with diabetic chronic kidney disease; N18.6 End stage renal disease; F31.9 Bipolar disorder, unspecified; Z79.02 Long term (current) use of antithrombotics/antiplatelets; Z79.4 Long term (current) use of insulin; Z79.899 Other long term (current) drug therapy; Z88.0 Allergy status to penicillin; Z86.73 Personal history of transient ischemic attack (TIA), and cerebral infarction without residual deficits; Z99.2 Dependence on renal dialysis
CPT/HCPCS: 36415; 70450; 80053; 80177; 85025; 93005; 99285

== ENCOUNTER 2020-09-04 10:02 | Inpatient (IN) | payer MEDICARE, OTHER ==
--- NOTE | 2020-09-04 10:33 | ED ---
Seizure HPI - General Chief Complaint: Seizure Stated Complaint: Seizure Time Seen by Provider: 09/04/20 10:02 Source: EMS, RN notes reviewed, old records reviewed Mode of arrival: EMS Limitations: altered mental status - History of Present Illness Initial Comments: this is a 50-year-old female with a history of multiple medical problems who is brought in today by EMS after suffering a seizure which lasted approximately a minute with a apparent prolonged postictal state. No trauma reported no fevers chills nausea vomiting or other symptoms. Patient is unable to supply any history MD Complaint: seizure - Related Data Home Medications Medication Instructions Recorded Confirmed Clopidogrel [Plavix] 75 mg PO DAILY 02/12/17 04/01/20 Ergocalciferol (Vitamin D2) 50,000 unit PO Q7D 02/12/17 04/01/20 [Vitamin D2] Calcium Acetate 667 mg PO AC-TID 11/11/19 04/01/20 Atorvastatin [Lipitor] 20 mg PO DAILY 12/26/19 04/01/20 Insulin Glargine [Lantus] 12 unit SQ HS 12/26/19 04/01/20 Metoprolol Tartrate 25 mg PO BID 12/27/19 04/01/20 cloBAZam [Clobazam] 10 mg PO BID 02/20/20 04/01/20 Acetaminophen Tab [Tylenol] 500 - 1,000 mg PO Q6H PRN 02/23/20 04/01/20 Famotidine [Pepcid] 20 mg PO DAILY 04/01/20 04/01/20 Heparin Sodium,Porcine [Heparin 5,000 unit SQ Q8HR 04/01/20 04/01/20 Sodium] Pantoprazole Sodium [Protonix] 40 mg PO DAILY 04/01/20 04/01/20 Sevelamer [Renvela] 800 mg PO TID-W/MEALS 04/01/20 04/01/20 amLODIPine [Norvasc] 5 mg PO DAILY 04/01/20 04/01/20 polyethylene glycoL 3350 [Miralax] 17 gm PO DAILY 04/01/20 04/01/20 Previous Rx's Medication Instructions Recorded Citalopram Hydrobromide [CeleXA] 10 mg PO DAILY #30 tab 11/15/19 Lacosamide [Vimpat] 150 mg PO TID #90 cap 04/02/20 levETIRAcetam [Keppra] 500 mg PO BID #90 cap 04/02/20 Acetaminophen-Codeine 300-30mg 1 tab PO Q6H PRN 3 Days #12 tablet 06/13/20 [Tylenol w/codeine #3] Allergies Allergy/AdvReac Type Severity Reaction Status Date / Time Penicillins Allergy Itching Verified 09/04/20 10:09 Review of Systems ROS Statement: Those systems with pertinent positive or pertinent negative responses have been documented in the HPI. ROS Other: All systems not noted in ROS Statement are negative. Limitations: ROS unobtainable due to patients medical condition Past Medical History Past Medical History: Chest Pain / Angina, CVA/TIA, Diabetes Mellitus, Hypertension, Renal Disease, Seizure Disorder, Thyroid Disorder Additional Past Medical History / Comment(s): dialysis, bipolar, neuropathy, baseline orientation person/place, drop foot left, only able to walk short distances with walker or wheelchair History of Any Multi-Drug Resistant Organisms: None Reported Past Surgical History: Section, Tonsillectomy Additional Past Surgical History / Comment(s): left arm fistula, loop recorder, vagus nerve stimulator Past Anesthesia/Blood Transfusion Reactions: No Reported Reaction Past Psychological History: Bipolar Smoking Status: Former smoker Past Alcohol Use History: Occasional Past Drug Use History: None Reported - Past Family History Father Family Medical History: Unable to Obtain Additional Family Medical History / Comment(s): adopted General Exam - General Exam Comments Initial Comments: this is a well-developed well-nourished female who does awaken to stimulation otherwise is noncommunicative Limitations: altered mental status General appearance: lethargic Head exam: Present: atraumatic, normocephalic, normal inspection Eye exam: Present: normal appearance, PERRL, EOMI. Absent: scleral icterus, conjunctival injection, periorbital swelling ENT exam: Present: normal exam, mucous membranes moist Neck exam: Present: normal inspection. Absent: tenderness, meningismus, lymphadenopathy Respiratory exam: Present: normal lung sounds bilaterally. Absent: respiratory distress, wheezes, rales, rhonchi, stridor Cardiovascular Exam: Present: regular rate, normal rhythm, normal heart sounds. Absent: systolic murmur, diastolic murmur, rubs, gallop, clicks GI/Abdominal exam: Present: soft, normal bowel sounds. Absent: distended, tenderness, guarding, rebound, rigid Extremities exam: Present: normal inspection, full ROM, normal capillary refill. Absent: tenderness, pedal edema, joint swelling, calf tenderness Back exam: Present: normal inspection Neurological exam: Present: altered, CN II-XII intact Psychiatric exam: Present: other (able to evaluate) Skin exam: Present: warm, dry, intact, normal color. Absent: rash Course Vital Signs 09/04/20 09/04/20 09/04/20 10:04 10:43 11:39 Temperature 97.8 F Pulse Rate 84 93 83 Respiratory 18 20 17 Rate Blood Pressure 144/89 136/84 100/66 O2 Sat by Pulse 98 97 96 Oximetry - Reevaluation(s) Reevaluation #1: 09/04/20 13:21 the patient was noted have tonic-clonic activity lasting less than a minute. She did receive IV Ativan. She also received IV Reevaluation #2: 09/04/20 13:21 also evaluations the patient revealed her postictal state with stable vital signs. CAT scan was negative for acute findings as well as the x-ray. Medical Decision Making - Lab Data Result diagrams: 09/04/20 10:56 09/04/20 10:56 Lab Results 09/04/20 09/04/20 09/04/20 Range/Units 10:38 10:56 10:56 WBC 9.6 (3.8-10.6) k/uL RBC 4.29 (3.80-5.40) m/uL Hgb 12.9 (11.4-16.0) gm/dL Hct 38.8 (34.0-46.0) % MCV 90.5 (80.0-100.0) fL MCH 30.1 (25.0-35.0) pg MCHC 33.3 (31.0-37.0) g/dL RDW 14.5 (11.5-15.5) % Plt Count 258 (150-450) k/uL MPV 8.1 Neutrophils % 49 % Lymphocytes % 42 % Monocytes % 5 % Eosinophils % 2 % Basophils % 1 % Neutrophils # 4.7 (1.3-7.7) k/uL Lymphocytes # 4.0 (1.0-4.8) k/uL Monocytes # 0.5 (0-1.0) k/uL Eosinophils # 0.2 (0-0.7) k/uL Basophils # 0.1 (0-0.2) k/uL Sodium 139 (137-145) mmol/L Potassium 4.2 (3.5-5.1) mmol/L Chloride 95 L (98-107) mmol/L Carbon Dioxide 22 (22-30) mmol/L Anion Gap 22 mmol/L BUN 54 H (7-17) mg/dL Creatinine 10.49 H* (0.52-1.04) mg/dL Est GFR (CKD-EPI)AfAm 4 (>60 ml/min/1.73 sqM) Est GFR (CKD-EPI)NonAf 4 (>60 ml/min/1.73 sqM) Glucose 145 H (74-99) mg/dL POC Glucose (mg/dL) 131 H (75-99) mg/dL POC Glu Auger Operator ID Alyssa Perez Calcium 9.6 (8.4-10.2) mg/dL Magnesium 2.6 H (1.6-2.3) mg/dL Total Bilirubin 0.6 (0.2-1.3) mg/dL AST 20 (14-36) U/L ALT 16 (4-34) U/L Alkaline Phosphatase 108 (38-126) U/L Creatine Kinase 166 H (30-135) U/L Troponin I (0.000-0.034) ng/mL Total Protein 8.6 H (6.3-8.2) g/dL Albumin 4.9 (3.5-5.0) g/dL TSH 0.917 (0.465-4.680) mIU/L 09/04/20 Range/Units 10:56 WBC (3.8-10.6) k/uL RBC (3.80-5.40) m/uL Hgb (11.4-16.0) gm/dL Hct (34.0-46.0) % MCV (80.0-100.0) fL MCH (25.0-35.0) pg MCHC (31.0-37.0) g/dL RDW (11.5-15.5) % Plt Count (150-450) k/uL MPV Neutrophils % % Lymphocytes % % Monocytes % % Eosinophils % % Basophils % % Neutrophils # (1.3-7.7) k/uL Lymphocytes # (1.0-4.8) k/uL Monocytes # (0-1.0) k/uL Eosinophils # (0-0.7) k/uL Basophils # (0-0.2) k/uL Sodium (137-145) mmol/L Potassium (3.5-5.1) mmol/L Chloride (98-107) mmol/L Carbon Dioxide (22-30) mmol/L Anion Gap mmol/L BUN (7-17) mg/dL Creatinine (0.52-1.04) mg/dL Est GFR (CKD-EPI)AfAm (>60 ml/min/1.73 sqM) Est GFR (CKD-EPI)NonAf (>60 ml/min/1.73 sqM) Glucose (74-99) mg/dL POC Glucose (mg/dL) (75-99) mg/dL POC Glu Auger Operator ID Calcium (8.4-10.2) mg/dL Magnesium (1.6-2.3) mg/dL Total Bilirubin (0.2-1.3) mg/dL AST (14-36) U/L ALT (4-34) U/L Alkaline Phosphatase (38-126) U/L Creatine Kinase (30-135) U/L Troponin I <0.012 (0.000-0.034) ng/mL Total Protein (6.3-8.2) g/dL Albumin (3.5-5.0) g/dL TSH (0.465-4.680) mIU/L - EKG Data -: EKG Interpreted by Me EKG shows normal: sinus rhythm EKG Comments: Neuro sinus rhythm 80. Interval 190 QRS duration 84 QT since QTC 414/[address]-t wave changes Critical Care Time Critical Care Time: Yes Total Critical Care Time: 37 Critical Care Time: this included initial presentation with history physical labs x-rays multiple reevaluation the patient. Discussed with paramedics upon arrival review old charting was available discussed with the admitting office, [place] from Dr. Somers's office and documentation the above. Disposition Clinical Impression: Epileptic seizure, generalized, Post-ictal confusion, Chronic renal failure syndrome Disposition: ADMITTED IP TO THIS HOSP Condition: Fair Referrals: Geoffrey Somers MD [Primary Care Provider] - 1-2 days
[2020-09-04] MEDS ORDERED: LORazepam 2 MG/ML INJ IV STA (10:39)
[2020-09-04 10:41] LABS: Glucose,Whole Blood 131 mg/dL (75-99)
[2020-09-04 11:18] LABS: Basophils # (A) 0.1 k/uL (0-0.2); Basophils % (A) 1 %; Eosinophils # (A) 0.2 k/uL (0-0.7); Eosinophils % (A) 2 %; HCT 38.8 % (34.0-46.0); HGB 12.9 gm/dL (11.4-16.0); Lymphocytes % (A) 42 %; MCH 30.1 pg (25.0-35.0); MCHC 33.3 g/dL (31.0-37.0); MCV 90.5 fL (80.0-100.0); Mean Platelet Volume 8.1; Monocytes # (A) 0.5 k/uL (0-1.0); Monocytes % (A) 5 %; Neutrophils # (A) 4.7 k/uL (1.3-7.7); Neutrophils % (A) 49 %; Platelet Count 258 k/uL (150-450); RBC 4.29 m/uL (3.80-5.40); RDW 14.5 % (11.5-15.5); WBC 9.6 k/uL (3.8-10.6)
[2020-09-04] MEDS ORDERED: levETIRAcetam IV 1,000 MG in SALINE 1 100ML.BAG IVPB STA (11:21)
--- NOTE | 2020-09-04 11:26 | XR ---
EXAMINATION TYPE: XR chest 1V portable DATE OF EXAM: 09/04/2020 COMPARISON: 02/23/2020 HISTORY: Seizure TECHNIQUE: Single frontal view of the chest is obtained. FINDINGS: There is no focal air space opacity, pleural effusion, or pneumothorax seen. The cardiac silhouette size is within normal limits. The osseous structures are intact. Heart is enlarged and t here is a metallic device with the catheter or lead extending cephalad toward the soft tissues of the neck. No overt failure. Heart size stable. IMPRESSION: No acute process.
[2020-09-04 11:27] LABS: Albumin 4.9 g/dL (3.5-5.0); Calcium 9.6 mg/dL (8.4-10.2); Magnesium 2.6 mg/dL (1.6-2.3); Potassium 4.2 mmol/L (3.5-5.1); Total Bilirubin 0.6 mg/dL (0.2-1.3); Total Protein 8.6 g/dL (6.3-8.2)
--- NOTE | 2020-09-04 11:34 | CT ---
EXAMINATION TYPE: CT brain wo con DATE OF EXAM: 09/04/2020 COMPARISON: 06/13/2020 HISTORY: altered mental status CT DLP: 1098.4 mGycm Automated exposure control for dose reduction was used. FINDINGS: There is an area of low attenuation within the left basal ganglia medially which is retrospectively s table from the previous exam consistent with remote ischemia. Mild to moderate generalized degenerati ve change seen and there are faint areas of low attenuation throughout the white matter bilaterally. No midline shift, mass effect or acute hemorrhage. Calvarium intact. Craniocervical junction maintained. Sella turcica has a normal appearance. Intracra nial atherosclerotic changes noted. IMPRESSION: 1. No acute hemorrhage or mass effect. 2. Degenerative and remote multiple ischemic change as discussed above.
[2020-09-04] MEDS ORDERED: NALOXONE 0.4 MG/ML 1 ML VIAL IV PRN (13:23)
[2020-09-04] MEDS: SODIUM CHLORIDE 0.9% 1,000 ML IV SCH ×2 (16:55→23:23)
[2020-09-04] MEDS ORDERED: LACOSAMIDE 50 MG TABLET PO SCH (17:15)
--- NOTE | 2020-09-04 17:55 | P.HPIM ---
History of Present Illness H&P Date: 09/04/20 Chief Complaint: Seizure activity 50-year-old female, was brought to the emergency department via EMS due to a seizure lasting 1 minute, with a prolonged postictal state. During emergency room visit patient noted to have second seizure tonic-clonic in nature lasting less than 1 minute she received 1 mg of IV Ativan and also received loading dose of Keppra. patient has significant history of seizures maintain on Keppra and Vimpat. Patient has significant comorbidities of CVA/TIA, angina, hypertension, hyperlipidemia, hypothyroidism, bipolar disorder, renal failuredialysis dependent, left foot drop, and memory impairment with baseline orientation to person and place. Upon evaluation of the patient in the emergency department patient drowsy, able to answer questions to person and place; patient recalls the first seizure event [place] or trauma. Patient denies fever, chills, chest pain, palpitations, shortness of breath, abdominal pain, nausea, vomiting, or diarrhea. Seizures precautions in place .CT of the head no acute changes, chest x-ray no acute changes, EKG no acute changes, significant increase and BUN/creatinine from baseline with dialysis. Review of Systems Constitutional: Reports fatigue Cardiovascular: Reports as per HPI Respiratory: Reports as per HPI Gastrointestinal: Reports as per HPI Genitourinary: Reports as per HPI Musculoskeletal: Reports limitation of motion Neurological: Reports balance difficulties, Reports lack of coordination, Reports weakness Psychiatric: Reports confusion (At baseline) Endocrine: Reports as per HPI Allergic/Immunologic: Reports as per HPI Past Medical History Past Medical History: Chest Pain / Angina, CVA/TIA, Diabetes Mellitus, Hypertension, Renal Disease, Seizure Disorder, Thyroid Disorder Additional Past Medical History / Comment(s): dialysis, bipolar, neuropathy, baseline orientation person/place, drop foot left, only able to walk short distances with walker or wheelchair History of Any Multi-Drug Resistant Organisms: None Reported Past Surgical History: Section, Tonsillectomy Additional Past Surgical History / Comment(s): left arm fistula, loop recorder, vagus nerve stimulator Past Anesthesia/Blood Transfusion Reactions: No Reported Reaction Past Psychological History: Bipolar Smoking Status: Former smoker Past Alcohol Use History: Occasional Past Drug Use History: None Reported - Past Family History Father Family Medical History: Unable to Obtain Additional Family Medical History / Comment(s): adopted Medications and Allergies Home Medications and Allergies Comment(s): Medications and ALLERGIES reviewed Home Medications Medication Instructions Recorded Confirmed Type Clopidogrel [Plavix] 75 mg PO DAILY 02/12/17 09/04/20 History Citalopram Hydrobromide [CeleXA] 10 mg PO DAILY #30 tab 11/15/19 09/04/20 Rx Atorvastatin [Lipitor] 20 mg PO DAILY 12/26/19 09/04/20 History Insulin Glargine [Lantus] 15 unit SQ HS 12/26/19 09/04/20 History Metoprolol Tartrate 25 mg PO BID 12/27/19 09/04/20 History Sevelamer [Renvela] 800 mg PO AC-TID 04/01/20 09/04/20 History Aspirin EC [Ecotrin] 325 mg PO DAILY 09/04/20 09/04/20 History Lacosamide [Vimpat] 100 mg PO DIRECTED 09/04/20 09/04/20 History amLODIPine [Norvasc] 10 mg PO DAILY 09/04/20 09/04/20 History levETIRAcetam [Keppra] 1,000 mg PO BID 09/04/20 09/04/20 History Allergies Allergy/AdvReac Type Severity Reaction Status Date / Time Penicillins Allergy Itching Verified 09/04/20 13:28 Physical Exam Vitals: Vital Signs Temp Pulse Resp BP Pulse Ox 09/04/20 16:57 18 09/04/20 14:30 18 09/04/20 13:28 82 19 124/65 95 09/04/20 11:39 83 17 100/66 96 09/04/20 10:43 93 20 136/84 97 09/04/20 10:04 97.8 F 84 18 144/89 98 Intake and Output 09/04/20 09/04/20 09/04/20 06:59 14:59 22:59 Other: Weight 85 kg - Constitutional General appearance: mild distress - EENT Eyes: EOMI ENT: normal oropharynx - Respiratory Respiratory: bilateral: diminished (Anterior and posterior lung reich) - Cardiovascular Normal sinus rhythm Heart rate: 98 Rhythm: regular Heart sounds: normal: S1, S2 radial pulse Peripheral Pulses: bilateral: Normal dorsalis pedis Peripheral Pulses: bilateral: Normal - Gastrointestinal General gastrointestinal: normal bowel sounds - Neurologic Neurologic: CNII-XII intact - Musculoskeletal Musculoskeletal: generalized weakness - Psychiatric Alert to person and place neurological baseline Results CBC & Chem 7: 09/04/20 10:56 09/04/20 10:56 Labs: Abnormal Lab Results - Last 24 Hours (Table) 09/04/20 09/04/20 Range/Units 10:38 10:56 Chloride 95 L (98-107) mmol/L BUN 54 H (7-17) mg/dL Creatinine 10.49 H* (0.52-1.04) mg/dL Glucose 145 H (74-99) mg/dL POC Glucose (mg/dL) 131 H (75-99) mg/dL Magnesium 2.6 H (1.6-2.3) mg/dL Creatine Kinase 166 H (30-135) U/L Total Protein 8.6 H (6.3-8.2) g/dL Chest x-ray: report reviewed Thrombosis Risk Factor Assmnt - Choose All That Apply Each Factor Represents 1 point: Age 41-60 years, Medical pt on bed rest, Obesity (BMI >25) Thrombosis Risk Factor Assessment Total Risk Factor Score: 3 Thrombosis Risk Factor Assessment Level: Moderate Risk Assessment and Plan Assessment: Epileptic seizurecontinue Keppra/Vimpat, consultation with neurology for recommendations and treatment plan Acute on chronic renal failureconsultation with nephrology for treatment plan and recommendations Diabetes mellituscontinue home medication/sliding scale Bipolar disorder Hyperlipidemia Hypertension History of CVA/TIA Memory impairment Foot drop Continue seizure precautions Continue home medications Continue medical management Continue to monitor diagnostics and vital signs Full code
[2020-09-04 18:29] LABS: Glucose,Whole Blood 131 mg/dL (75-99)
[2020-09-04] MEDS: SEVELAMER 800 MG TAB PO SCH (19:00)
[2020-09-04] MEDS: INSULIN ASPART (NovoLOG) 100 UNIT/ML VIAL SQ SCH ×2 (19:00→23:18)
[2020-09-04 20:14] LABS: Glucose,Whole Blood 183 mg/dL (75-99)
[2020-09-04] MEDS ORDERED: INSULIN DETEMIR (LEVEMIR) 100 UNIT/ML SYR SQ SCH ×2 (21:00)
[2020-09-04 21:37] VITALS: RESP 18
[2020-09-04 23:20] LABS: Glucose,Whole Blood 146 mg/dL (75-99)
[2020-09-04] MEDS: PANTOPRAZOLE 40 MG/10 ML VIAL IVP SCH (23:22)
[2020-09-04] MEDS: METOPROLOL TARTRATE 25 MG TAB PO SCH (23:23)
[2020-09-04] MEDS: levETIRAcetam 500 MG TAB PO SCH (23:23)
[2020-09-05 06:18] LABS: Glucose,Whole Blood 224 mg/dL (75-99)
[2020-09-05] MEDS: INSULIN ASPART (NovoLOG) 100 UNIT/ML VIAL SQ SCH ×2 (06:37→12:37)
[2020-09-05] MEDS: SEVELAMER 800 MG TAB PO SCH ×2 (06:38→12:37)
[2020-09-05 07:31] LABS: Basophils % (A) 1 %; Eosinophils # (A) 0.1 k/uL (0-0.7); Eosinophils % (A) 3 %; HCT 32.1 % (34.0-46.0); HGB 10.6 gm/dL (11.4-16.0); Lymphocytes # (A) 1.2 k/uL (1.0-4.8); Lymphocytes % (A) 26 %; MCH 29.9 pg (25.0-35.0); MCHC 33.2 g/dL (31.0-37.0); MCV 90.2 fL (80.0-100.0); Monocytes # (A) 0.3 k/uL (0-1.0); Monocytes % (A) 6 %; Neutrophils # (A) 2.9 k/uL (1.3-7.7); Neutrophils % (A) 63 %; Platelet Count 202 k/uL (150-450); RBC 3.56 m/uL (3.80-5.40); RDW 14.6 % (11.5-15.5); WBC 4.6 k/uL (3.8-10.6)
[2020-09-05 07:39] LABS: Albumin 3.7 g/dL (3.5-5.0); Magnesium 2.4 mg/dL (1.6-2.3); Phosphorus 5.5 mg/dL (2.5-4.5); Potassium 4.6 mmol/L (3.5-5.1); Total Bilirubin 0.4 mg/dL (0.2-1.3); Total Protein 6.7 g/dL (6.3-8.2)
[2020-09-05 08:04] VITALS: TEMP 98.1
[2020-09-05] MEDS: METOPROLOL TARTRATE 25 MG TAB PO SCH (08:05)
[2020-09-05] MEDS: PANTOPRAZOLE 40 MG/10 ML VIAL IVP SCH (08:05)
[2020-09-05] MEDS: SODIUM CHLORIDE 0.9% 1,000 ML IV SCH (08:06)
[2020-09-05] MEDS: levETIRAcetam 500 MG TAB PO SCH (08:06)
[2020-09-05] MEDS ORDERED: CLOPIDOGREL 75 MG TAB PO SCH (09:00)
[2020-09-05] MEDS ORDERED: ATORVASTATIN 20 MG TAB PO SCH (09:00)
[2020-09-05] MEDS ORDERED: ASPIRIN 325 MG TAB PO SCH (09:00)
[2020-09-05] MEDS ORDERED: amLODIPine 10 MG TAB PO SCH (09:00)
[2020-09-05] MEDS ORDERED: CITALOPRAM HYDROBROMIDE 10 MG TAB PO SCH (09:00)
--- NOTE | 2020-09-05 10:05 | P.NPCON ---
History of Present Illness - Reason for Consult end stage renal disease - History of Present Illness Reason for consultation: End-stage renal disease History of present illness: Patient is a 50-year-old female seen in renal consultation for end-stage renal disease. She is maintained on hemodialysis on Monday schedule. Patient had a seizure at home which lasted about a minute and was subsequently brought to the hospital. Patient is currently awake and alert. Denies chest pain or shortness of breath. Denies any seizures overnight. She did receive hemodialysis yesterday in the hospital. No vomiting or diarrhea. Appetite is fair. Hemodynamically stable. She wants to go home. No fever or chills. Hemodynamically stable. Vital signs are stable. General: The patient appeared well nourished and normally developed. HEENT: Head exam is unremarkable. Neck is without jugular venous distension. LUNGS: Breath sounds decreased. HEART: Rate and Rhythm are regular. ABDOMEN: Soft, nontender. EXTREMITITES: No edema. Past Medical History Past Medical History: Chest Pain / Angina, CVA/TIA, Diabetes Mellitus, Hypertension, Renal Disease, Seizure Disorder, Thyroid Disorder Additional Past Medical History / Comment(s): dialysis, bipolar, neuropathy, baseline orientation person/place, drop foot left, only able to walk short distances with walker or wheelchair History of Any Multi-Drug Resistant Organisms: None Reported Past Surgical History: Section, Tonsillectomy Additional Past Surgical History / Comment(s): left arm fistula, loop recorder, vagus nerve stimulator Past Anesthesia/Blood Transfusion Reactions: No Reported Reaction Past Psychological History: Bipolar Smoking Status: Former smoker Past Alcohol Use History: Occasional Past Drug Use History: None Reported - Past Family History Father Family Medical History: Unable to Obtain Additional Family Medical History / Comment(s): adopted Medications and Allergies Home Medications Medication Instructions Recorded Confirmed Type Clopidogrel [Plavix] 75 mg PO DAILY 02/12/17 09/04/20 History Citalopram Hydrobromide [CeleXA] 10 mg PO DAILY #30 tab 11/15/19 09/04/20 Rx Atorvastatin [Lipitor] 20 mg PO DAILY 12/26/19 09/04/20 History Insulin Glargine [Lantus] 12 unit SQ HS 12/26/19 09/04/20 History Metoprolol Tartrate 25 mg PO BID 12/27/19 09/04/20 History Sevelamer [Renvela] 800 mg PO AC-TID 04/01/20 09/04/20 History Aspirin EC [Ecotrin] 325 mg PO DAILY 09/04/20 09/04/20 History INSULIN LISPRO (humaLOG) [humaLOG] See Protocol SQ ACHS 09/04/20 09/04/20 History Lacosamide [Vimpat] 100 mg PO DIRECTED 09/04/20 09/04/20 History amLODIPine [Norvasc] 10 mg PO DAILY 09/04/20 09/04/20 History levETIRAcetam [Keppra] 1,000 mg PO BID 09/04/20 09/04/20 History Allergies Allergy/AdvReac Type Severity Reaction Status Date / Time Penicillins Allergy Itching Verified 09/04/20 13:28 Physical Exam Vitals: Vital Signs Temp Pulse Pulse Resp BP BP Pulse Ox 09/05/20 08:00 98.1 F 82 18 136/72 100 09/05/20 04:00 98.2 F 85 18 135/61 97 09/05/20 02:00 76 18 09/04/20 23:36 97.4 F L 76 18 119/65 97 09/04/20 20:00 97.8 F 83 18 136/78 100 09/04/20 17:30 97.6 F 86 16 153/77 100 09/04/20 16:57 18 09/04/20 14:30 18 09/04/20 13:28 82 19 124/65 95 09/04/20 11:39 83 17 100/66 96 09/04/20 10:43 93 20 136/84 97 09/04/20 10:04 97.8 F 84 18 144/89 98 Intake and Output 09/04/20 09/05/20 09/05/20 22:59 06:59 14:59 Intake Total 10 Balance 10 Intake: IV 10 0.9 10 Other: # Voids 0 Weight 85 kg 91 kg Results - Lab Results Most recent lab results Calcium 9.0 mg/dL (8.4-10.2) 09/05/20 07:03 Phosphorus 5.5 mg/dL (2.5-4.5) H 09/05/20 07:03 Magnesium 2.4 mg/dL (1.6-2.3) H 09/05/20 07:03 09/05/20 07:03 09/05/20 07:03 Assessment and Plan Plan: Assessment: 1. End-stage renal disease maintained on hemodialysis on Monday schedule. 2. Seizure disorder. Neurology consulted. 3. Diabetes mellitus. 4. Hypertension with chronic kidney disease. Controlled. 5. Chronic kidney disease mineral bone disease maintained on Renvela. Plan: Hemodialysis on Monday. Hep-Lock IV fluids. Await neurology recommendations. Thank you for the consultation. I will continue to follow the patient with you during her hospital stay.
[2020-09-05 11:51] LABS: Glucose,Whole Blood 224 mg/dL (75-99)
[2020-09-05 12:43] VITALS: BP 121/74; PULSE 79
[2020-09-05] MEDS ORDERED: PANTOPRAZOLE 40 MG TABLET PO SCH (21:00)
== END 2020-09-05 15:55 | disposition home or self-care (01) | DRG 100 ==
LOC: EC 10:02 → 3SCARD 13:27
PROVIDERS: ADMIT Family Medicine; ATTEND Family Medicine
PROC: 5A1D70Z Performance of Urinary Filtration, Intermittent, Less than 6 Hours Per Day (ICD-10-PCS; principal; 2020-09-04)
DX: G40.409 Other generalized epilepsy and epileptic syndromes, not intractable, without status epilepticus (principal); N18.6 End stage renal disease; I12.0 Hypertensive chronic kidney disease with stage 5 chronic kidney disease or end stage renal disease; N17.9 Acute kidney failure, unspecified; E78.5 Hyperlipidemia, unspecified; E11.22 Type 2 diabetes mellitus with diabetic chronic kidney disease; E03.9 Hypothyroidism, unspecified; F31.9 Bipolar disorder, unspecified; E83.89 Other disorders of mineral metabolism; Z20.822 Contact with and (suspected) exposure to COVID-19; M21.372 Foot drop, left foot; Z99.2 Dependence on renal dialysis; Z87.891 Personal history of nicotine dependence; Z86.73 Personal history of transient ischemic attack (TIA), and cerebral infarction without residual deficits; Z79.899 Other long term (current) drug therapy; Z79.82 Long term (current) use of aspirin; Z79.4 Long term (current) use of insulin; Z79.02 Long term (current) use of antithrombotics/antiplatelets
CPT/HCPCS: 36415; 70450; 71045; 80053; 80177; 82550; 82607; 82746; 83735; 84100; 84443; 84484; 85025; 87635; 93005; 96365; 96375; 99291

== ENCOUNTER 2020-09-06 18:59 | Inpatient (IN) | payer MEDICARE, OTHER ==
[2020-09-06] MEDS ORDERED: SODIUM CHLORIDE 0.9% 500 ML 500 ML IV STA (19:16)
--- NOTE | 2020-09-06 19:31 | ED ---
General Adult HPI - General Chief complaint: Seizure Stated complaint: Seizure Time Seen by Provider: 09/06/20 19:08 Source: EMS Mode of arrival: EMS Limitations: altered mental status - History of Present Illness Initial comments: 50 year-old female patient with past history of seizures was admitted on the for persistent seizure activity. Patient apparently had a seizure tonight. Family did not give more information to the EMS crew. EMS crew states that she was post-ictal when they arrived. Patient is drowsy, answers questions with one word yes or no. She denies any discomfort at this time. Follows commands. - Related Data Home Medications Medication Instructions Recorded Confirmed Insulin Glargine [Lantus] 12 unit SQ HS 12/26/19 09/06/20 INSULIN LISPRO (humaLOG) [humaLOG] See Protocol SQ ACHS 09/04/20 09/06/20 Lacosamide [Vimpat] 100 mg PO DIRECTED 09/04/20 09/06/20 Previous Rx's Medication Instructions Recorded Aspirin [Adult Low Dose Aspirin EC] 81 mg PO DAILY #30 tablet. 09/05/20 Atorvastatin [Lipitor] 20 mg PO DAILY #30 tab 09/05/20 Citalopram Hydrobromide [CeleXA] 10 mg PO DAILY #30 tab 09/05/20 Clopidogrel [Plavix] 75 mg PO DAILY #30 tab 09/05/20 Metoprolol Tartrate 25 mg PO BID #60 tab 09/05/20 Pantoprazole [Protonix] 40 mg PO AC-BRKFST #30 tablet. 09/05/20 Sevelamer [Renvela] 800 mg PO AC-TID #90 tab 09/05/20 amLODIPine [Norvasc] 10 mg PO DAILY #30 tab 09/05/20 levETIRAcetam [Keppra] 1,000 mg PO BID #60 tab 09/05/20 Allergies Allergy/AdvReac Type Severity Reaction Status Date / Time Penicillins Allergy Itching Verified 09/06/20 21:42 Review of Systems ROS Statement: Those systems with pertinent positive or pertinent negative responses have been documented in the HPI. ROS Other: All systems not noted in ROS Statement are negative. Past Medical History Past Medical History: Chest Pain / Angina, CVA/TIA, Diabetes Mellitus, Hypertension, Renal Disease, Seizure Disorder, Thyroid Disorder Additional Past Medical History / Comment(s): dialysis, bipolar, neuropathy, baseline orientation person/place, drop foot left, only able to walk short d istances with walker or wheelchair History of Any Multi-Drug Resistant Organisms: None Reported Past Surgical History: Section, Tonsillectomy Additional Past Surgical History / Comment(s): left arm fistula, loop recorder, vagus nerve stimulator Past Anesthesia/Blood Transfusion Reactions: No Reported Reaction Past Psychological History: Bipolar Smoking Status: Former smoker Past Alcohol Use History: Occasional Past Drug Use History: None Reported - Past Family History Father Family Medical History: Unable to Obtain Additional Family Medical History / Comment(s): adopted General Exam Limitations: altered mental status General appearance: in no apparent distress, other (This is a well developed, well nourished adult female patient in no acute distress. Vital signs upon presentation are temperature 97.2F, pulse 85, respirations 14, blood pressure 156/84, pulse ox 96% on room air.) Eye exam: Present: normal appearance, PERRL, EOMI. Absent: scleral icterus, conjunctival injection, periorbital swelling ENT exam: Present: normal exam, normal oropharynx, mucous membranes moist Respiratory exam: Present: normal lung sounds bilaterally. Absent: respiratory distress, wheezes, rales, rhonchi, stridor Cardiovascular Exam: Present: regular rate, normal rhythm, normal heart sounds. Absent: systolic murmur, diastolic murmur, rubs, gallop, clicks GI/Abdominal exam: Present: soft, normal bowel sounds. Absent: distended, tenderness, guarding, rebound, rigid Neurological exam: Present: CN II-XII intact. Absent: alert (drowsy), oriented X3 (oriented x1) Psychiatric exam: Present: normal affect, normal mood Skin exam: Present: warm, dry, intact, normal color. Absent: rash Course Vital Signs 09/06/20 09/06/20 09/06/20 19:03 19:36 20:40 Temperature 97.2 F L Pulse Rate 85 93 80 Respiratory 14 16 18 Rate Blood Pressure 156/84 169/96 157/87 O2 Sat by Pulse 96 100 100 Oximetry 09/06/20 09/06/20 09/06/20 21:59 22:39 23:52 Temperature 97.1 F L Pulse Rate 72 70 Respiratory 18 16 Rate Blood Pressure 120/83 125/73 O2 Sat by Pulse 100 100 100 Oximetry - Reevaluation(s) Reevaluation #1: 09/06/20 19:37 Patient exhibiting tonic clonic seizure like activity lasted approximately 30 seconds, eyes open remains non responsive, occasional right sided facial spasm and right arm twitching. Was given 2mg Ativan. Seizure activity stopped, patient sleeping. Snoring respirations but 100% on NRB. Will monitor closely. EKG Findings - EKG Comments: EKG Findings:: EKG obtained at 1907 shows normal sinus rhythm with a ventricular rate of 84, AK interval 182, QRS duration 80, QT 400, QTC 472. No evidence of ST elevation or depression. Medical Decision Making - Medical Decision Making 50-year-old female patient presented to the emergency department today for evaluation after having a seizure at home. Patient is have a history of recurrent seizures and generally has a prolonged postictal state. She is also a dialysis patient it is unknown when she had her last dialysis as family did not present with her to the emergency department. Patient did have a short seizure lasting approximately 30 seconds while here in the department. She was given Ativan. Patient has been very drowsy and sleepy since then. She does arouse to verbal stimuli and light touch. Vital signs within normal ranges. Patient was a difficult IV start and difficult lab draw. Dr. Berry was in to perform femoral stick for Labs. She has a working IV in her right foot. Labs reviewed and did reveal elevated BUN and creatinine consistent with her history. Patient exhibited no further seizure activity while here. She will be admitted to the hospital for further evaluation by neurology. Patient is agreeable with this plan. Case discussed with my attending Dr. Johnson. - Lab Data Result diagrams: 09/06/20 22:33 09/06/20 22:33 Lab Results 09/06/20 09/06/20 09/06/20 Range/Units 20:00 22:33 22:33 WBC 6.9 (3.8-10.6) k/uL RBC 3.29 L (3.80-5.40) m/uL Hgb 9.6 L (11.4-16.0) gm/dL Hct 29.1 L (34.0-46.0) % MCV 88.7 (80.0-100.0) fL MCH 29.1 (25.0-35.0) pg MCHC 32.8 (31.0-37.0) g/dL RDW 14.8 (11.5-15.5) % Plt Count 244 (150-450) k/uL MPV 8.1 Neutrophils % 47 % Lymphocytes % 40 % Monocytes % 7 % Eosinophils % 4 % Basophils % 1 % Neutrophils # 3.2 (1.3-7.7) k/uL Lymphocytes # 2.8 (1.0-4.8) k/uL Monocytes # 0.5 (0-1.0) k/uL Eosinophils # 0.3 (0-0.7) k/uL Basophils # 0.1 (0-0.2) k/uL Sodium 139 (137-145) mmol/L Potassium 5.0 (3.5-5.1) mmol/L Chloride 108 H (98-107) mmol/L Carbon Dioxide 19 L (22-30) mmol/L Anion Gap 12 mmol/L BUN 57 H (7-17) mg/dL Creatinine 10.19 H* (0.52-1.04) mg/dL Est GFR (CKD-EPI)AfAm 5 (>60 ml/min/1.73 sqM) Est GFR (CKD-EPI)NonAf 4 (>60 ml/min/1.73 sqM) Glucose 105 H (74-99) mg/dL Calcium 8.6 (8.4-10.2) mg/dL Total Bilirubin 0.4 (0.2-1.3) mg/dL AST 17 (14-36) U/L ALT 10 (4-34) U/L Alkaline Phosphatase 79 (38-126) U/L Total Protein 6.3 (6.3-8.2) g/dL Albumin 3.4 L (3.5-5.0) g/dL Urine Color Light Yellow Urine Appearance Clear (Clear) Urine pH 5.5 (5.0-8.0) Ur Specific [place] 1.013 (1.001-1.035) Urine Protein 1+ H (Negative) Urine Glucose (UA) 1+ H (Negative) Urine Ketones Negative (Negative) Urine Blood Trace H (Negative) Urine Nitrite Negative (Negative) Urine Bilirubin Negative (Negative) Urine Urobilinogen <2.0 (<2.0) mg/dL Ur Leukocyte Esterase Trace H (Negative) Urine RBC <1 (0-5) /hpf Urine WBC 3 (0-5) /hpf Ur Squamous Epith Cells <1 (0-4) /hpf Amorphous Sediment Rare H (None) /hpf Urine Bacteria Occasional H (None) /hpf Coronavirus (PCR) (Not Detectd) 09/06/20 Range/Units 22:36 WBC (3.8-10.6) k/uL RBC (3.80-5.40) m/uL Hgb (11.4-16.0) gm/dL Hct (34.0-46.0) % MCV (80.0-100.0) fL MCH (25.0-35.0) pg MCHC (31.0-37.0) g/dL RDW (11.5-15.5) % Plt Count (150-450) k/uL MPV Neutrophils % % Lymphocytes % % Monocytes % % Eosinophils % % Basophils % % Neutrophils # (1.3-7.7) k/uL Lymphocytes # (1.0-4.8) k/uL Monocytes # (0-1.0) k/uL Eosinophils # (0-0.7) k/uL Basophils # (0-0.2) k/uL Sodium (137-145) mmol/L Potassium (3.5-5.1) mmol/L Chloride (98-107) mmol/L Carbon Dioxide (22-30) mmol/L Anion Gap mmol/L BUN (7-17) mg/dL Creatinine (0.52-1.04) mg/dL Est GFR (CKD-EPI)AfAm (>60 ml/min/1.73 sqM) Est GFR (CKD-EPI)NonAf (>60 ml/min/1.73 sqM) Glucose (74-99) mg/dL Calcium (8.4-10.2) mg/dL Total Bilirubin (0.2-1.3) mg/dL AST (14-36) U/L ALT (4-34) U/L Alkaline Phosphatase (38-126) U/L Total Protein (6.3-8.2) g/dL Albumin (3.5-5.0) g/dL Urine Color Urine Appearance (Clear) Urine pH (5.0-8.0) Ur Specific [place] (1.001-1.035) Urine Protein (Negative) Urine Glucose (UA) (Negative) Urine Ketones (Negative) Urine Blood (Negative) Urine Nitrite (Negative) Urine Bilirubin (Negative) Urine Urobilinogen (<2.0) mg/dL Ur Leukocyte Esterase (Negative) Urine RBC (0-5) /hpf Urine WBC (0-5) /hpf Ur Squamous Epith Cells (0-4) /hpf Amorphous Sediment (None) /hpf Urine Bacteria (None) /hpf Coronavirus (PCR) Not Detected (Not Detectd) Disposition Clinical Impression: Seizure, Post-ictal state Disposition: ADMITTED IP TO THIS [facility] Condition: Serious Referrals: Geoffrey Somers MD [Primary Care Provider] - 1-2 days Decision to Admit Reason: Admit from EC Decision Date: 09/06/20 Decision Time: 23:59
[2020-09-06] MEDS ORDERED: LORazepam 2 MG/ML INJ IV STA ×2 (19:32→19:35)
[2020-09-06 20:26] LABS: Amorphous Sediment,Urine Rare /hpf; Appearance,Urine Clear (Clear); Bacteria,Urine Occasional /hpf; Bilirubin,Urine Negative (Negative); Blood,Urine Trace (Negative); Color,Urine Light Yellow; Glucose,Urine (UA) 1+ (Negative); Ketones,Urine Negative (Negative); Leukocyte Esterase,Urine Trace (Negative); Nitrite,Urine Negative (Negative); PH, Urine 5.5 (5.0-8.0); Protein,Urine 1+ (Negative); RBC,Urine <1 /hpf (0-5); Specific Gravity,Urine 1.013 (1.001-1.035); Squamous Epithelial Cell,Urine <1 /hpf (0-4); Urobilinogen,Urine <2.0 mg/dL (<2.0); WBC,Urine 3 /hpf (0-5)
[2020-09-06 22:47] LABS: Basophils # (A) 0.1 k/uL (0-0.2); Basophils % (A) 1 %; Eosinophils # (A) 0.3 k/uL (0-0.7); Eosinophils % (A) 4 %; HCT 29.1 % (34.0-46.0); HGB 9.6 gm/dL (11.4-16.0); Lymphocytes # (A) 2.8 k/uL (1.0-4.8); Lymphocytes % (A) 40 %; MCH 29.1 pg (25.0-35.0); MCHC 32.8 g/dL (31.0-37.0); MCV 88.7 fL (80.0-100.0); Mean Platelet Volume 8.1; Monocytes # (A) 0.5 k/uL (0-1.0); Monocytes % (A) 7 %; Neutrophils # (A) 3.2 k/uL (1.3-7.7); Neutrophils % (A) 47 %; Platelet Count 244 k/uL (150-450); RBC 3.29 m/uL (3.80-5.40); RDW 14.8 % (11.5-15.5); WBC 6.9 k/uL (3.8-10.6)
[2020-09-06 22:57] LABS: Albumin 3.4 g/dL (3.5-5.0); Calcium 8.6 mg/dL (8.4-10.2); Total Bilirubin 0.4 mg/dL (0.2-1.3); Total Protein 6.3 g/dL (6.3-8.2)
[2020-09-06] MEDS ORDERED: ONDANSETRON 4 MG/2 ML VIAL IVP PRN (23:56)
[2020-09-06] MEDS ORDERED: LORazepam 2 MG/ML INJ IV PRN (23:56)
[2020-09-06] MEDS ORDERED: NALOXONE 0.4 MG/ML 1 ML VIAL IV PRN (23:56)
[2020-09-07] MEDS ORDERED: LORazepam 2 MG/ML INJ IV PRN (03:50)
[2020-09-07 07:05] LABS: Glucose,Whole Blood 156 mg/dL (75-99)
[2020-09-07] MEDS: INSULIN ASPART (NovoLOG) 100 UNIT/ML VIAL SQ SCH ×4 (08:34→20:27)
--- NOTE | 2020-09-07 08:49 | P.CNNES ---
History of Present Illness Consult date: 09/05/20 Chief complaint: seizure History of Present Illness: The patient is a 50-year-old female who is seen in neurologic consultation on September 05, 2020, via teleneurology. This consultation is being redictated on September 07, 2020, because I'm unable to find the original dictation in the record. The patient reports "the other day I had a seizure" prior to this most recent seizure, her last seizure was about 1 month ago. The patient reports seeing her neurologist or proximally 2 months ago. At which time she had an EEG. She is not aware of the results of the EEG. Also at the time of that visit, the patient was started on Vimpat 100 mg and Keppra 1000 mg both medications are being taken twice daily. Prior to the initiation of these medications, the patient had been on several other antiepileptic medications. All of these were ineffective. In regards to this most recent seizure, the patient reports "I fell on the floor" when EMS arrived, "I went out of it". The patient denies tongue biting and loss of bowel and bladder control. She does report being mildly confused following this episode as well as tired. She does note that she missed a dose of her medication last week however denies missing any doses this week. She denies missing dialysis sessions. The patient reports a history of having 4 strokes. Past Medical History Past Medical History: Chest Pain / Angina, CVA/TIA, Diabetes Mellitus, Hypertension, Renal Disease, Seizure Disorder, Thyroid Disorder Additional Past Medical History / Comment(s): Dialysis, bipolar, neuropathy, baseline orientation to person/place, drop foot left, only able to walk short distances with walker or wheelchair History of Any Multi-Drug Resistant Organisms: None Reported Past Surgical History: Section, Tonsillectomy Additional Past Surgical History / Comment(s): left arm fistula, loop recorder, vagus nerve stimulator Past Anesthesia/Blood Transfusion Reactions: No Reported Reaction Past Psychological History: Bipolar Smoking Status: Former smoker Past Alcohol Use History: Occasional Past Drug Use History: None Reported - Past Family History Father Family Medical History: Unable to Obtain Additional Family Medical History / Comment(s): adopted Medications and Allergies Home Medications Medication Instructions Recorded Confirmed Type Insulin Glargine [Lantus] 12 unit SQ HS 12/26/19 09/06/20 History INSULIN LISPRO (humaLOG) [humaLOG] See Protocol SQ ACHS 09/04/20 09/06/20 History Lacosamide [Vimpat] 100 mg PO DIRECTED 09/04/20 09/06/20 History Aspirin [Adult Low Dose Aspirin EC] 81 mg PO DAILY #30 tablet. 09/05/20 09/06/20 Rx Atorvastatin [Lipitor] 20 mg PO DAILY #30 tab 09/05/20 09/06/20 Rx Citalopram Hydrobromide [CeleXA] 10 mg PO DAILY #30 tab 09/05/20 09/06/20 Rx Clopidogrel [Plavix] 75 mg PO DAILY #30 tab 09/05/20 09/06/20 Rx Metoprolol Tartrate 25 mg PO BID #60 tab 09/05/20 09/06/20 Rx Pantoprazole [Protonix] 40 mg PO AC-BRKFST #30 tablet. 09/05/20 09/06/20 Rx Sevelamer [Renvela] 800 mg PO AC-TID #90 tab 09/05/20 09/06/20 Rx amLODIPine [Norvasc] 10 mg PO DAILY #30 tab 09/05/20 09/06/20 Rx levETIRAcetam [Keppra] 1,000 mg PO BID #60 tab 09/05/20 09/06/20 Rx Allergies Allergy/AdvReac Type Severity Reaction Status Date / Time Penicillins Allergy Itching Verified 09/06/20 21:42 Physical Examination - Vital Signs Vital Signs: Vital Signs Temp Pulse Pulse Resp BP BP Pulse Ox 09/07/20 07:29 97.4 F L 78 18 134/72 100 09/07/20 02:30 68 20 120/69 100 09/07/20 02:00 97.5 F L 75 18 141/79 100 09/06/20 23:52 97.1 F L 70 16 125/73 100 09/06/20 22:39 72 18 120/83 100 09/06/20 21:59 100 09/06/20 20:40 80 18 157/87 100 09/06/20 19:36 93 16 169/96 100 09/06/20 19:03 97.2 F L 85 14 156/84 96 Intake and Output 09/06/20 09/07/20 09/07/20 22:59 06:59 14:59 Other: # Voids 0 Weight 81.647 kg 81.647 kg Gen.: The patient is reclining in the bed. She is in no acute distress. HEENT: Head is atraumatic, normocephalic. Fundus not visualized. There is no scleral icterus. Mucous membranes are moist. Neck: Without bruits Heart: Regular rate and rhythm Extremities: Without edema Neurological examination Mental status: Patient is awake, alert and oriented 3. Her speech is slightly slurred. Cranial nerves: Pupils are equal at 2 mm and reactive. There is a questionable right visual field loss. Extraocular movements are intact. There is no nystagmus. Facial sensation is intact. There is right ptosis. Smile is symmetric. Hearing is grossly intact. Uvula and palate are midline. Shoulder shrug is symmetric. Tongue protrudes midline. 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 Bilateral biceps and triceps strength 5/5. Left hip flexor 4/5 left ankle dorsi and plantar flexor 3-/5. Right hip flexor, ankle plantar and dorsiflexors 5/5. Sensation: Grossly intact to light touch throughout. There is no extinction on double simultaneous stimulation. [id number]: There is mild left-sided ataxia with [id number] and finger to nose testing. The patient is unable to perform left-sided [id number] testing. Right heel to child testing is intact. Deep tendon reflexes: 2+/4+ at the left biceps and brachial radialis. Left triceps 2-3+/4+. Right upper extremity reflexes 1+/4+. Bilateral patellar reflexes 2+/4+. Right Achilles 2+/4+. Left Achilles 0-1+/4+. Results - Laboratory Findings CBC and BMP: 09/06/20 22:33 09/06/20 22:33 Abnormal Lab Findings: Abnormal Labs 09/06/20 09/06/20 09/06/20 20:00 22:33 22:33 RBC 3.29 L Hgb 9.6 L Hct 29.1 L Chloride 108 H Carbon Dioxide 19 L BUN 57 H Creatinine 10.19 H* Glucose 105 H POC Glucose (mg/dL) Albumin 3.4 L Urine Protein 1+ H Urine Glucose (UA) 1+ H Urine Blood Trace H Ur Leukocyte Esterase Trace H Amorphous Sediment Rare H Urine Bacteria Occasional H 09/07/20 06:54 RBC Hgb Hct Chloride Carbon Dioxide BUN Creatinine Glucose POC Glucose (mg/dL) 156 H Albumin Urine Protein Urine Glucose (UA) Urine Blood Ur Leukocyte Esterase Amorphous Sediment Urine Bacteria Assessment and Plan Assessment: 1. Breakthrough seizure 2. Reported history of strokes 3. Chronic renal failure on hemodialysis Plan: 1. Will not change any seizure medication dosing at this time as the patient reports having an appointment scheduled with her outpatient neurologist. 2. Advised the patient to call her neurologist and perhaps get in to see him sooner Time with Patient: Greater than 30 (spent 45 minutes with patient via teleneurology)
[2020-09-07] MEDS ORDERED: levETIRAcetam IV 1,000 MG in SALINE 1 100ML.BAG IVPB STA (10:31)
[2020-09-07] MEDS ORDERED: LACOSAMIDE IV 150 MG in SODIUM CHLORIDE 0.9% 50 ML IVPB STA (10:39)
[2020-09-07] MEDS ORDERED: clonazePAM 1 MG TAB PO SCH (11:00)
--- NOTE | 2020-09-07 11:07 | P.CNNES ---
History of Present Illness Consult date: 09/07/20 Requesting physician: Leigh Berg Reason for Consult: break-through seizure with prolonged post-ictal state. History of Present Illness: This is a 50-year-old woman with history of epilepsy, status post VNS, diabetes, hypertension, end-stage renal disease on hemodialysis, previous CVA with left- sided hemiparesis, bipolar and some reports of medication noncompliance that presented to the emergency department on 09/06/2020 at 18:59 for a seizure. Seems that the patient had also a seizure on 2020 and she also presented emergency department. Dr. Daniel (Neuro-Hospitalist) evaluate the patient's on 09/05/2020 and recommended for no change of any seizure medication dosing at this time and recommended for the patient to follow-up with her neurologist as an outpatient. The patient received a total of 4 mg of Ativan in the ED. I personally spoke with the patient's (Calvin) and he stated that patient continues to see Dr. Jr escobar at [facility]. He could not tell me when was last follow-up with her neurologist. He stated the patient has not missed her medication. He stated she is on Keppra 1gm bid with an additional dose of Keppra 1gm post-dialysis (M, W, F). He stated she is on Vimpat 100mg bid with post dialysis 100mg (M,W, F). The patient is on Clobazam 20mg 1 tab bid upon checking with Louie smith ( did not know). He does not know all medications she is on (he stated all the bottle that are with her he showed EMS/ED) but Vimpat is not one of them neither is Clobazam. The patient was discharged and presented back for seizure episode. The patient was seen by different neuro-hospitalist in our facility for seizure. I personally saw the patient on 04/01/2020 for breakthrough seizure. The patient had multiple EEGs in our facility. Please her review my notes on 04/01/[address] Tamayo's note on 12/27/2019 for further details. On that visit I recommended to the patient to be on Vimpat 150 mg twice a day with an additional 100 mg on Monday and Monday postdialysis. I also recommended to continue Keppra 500mg bid with an additional on postdialysis which is Monday, Monday and Monday. And to continue clonazepam 10 mg twice a day but it seems she is on Clobazam not Clonazepam. Continue Plavix 75 mg daily and Lipitor 20 mg a daily for stroke prophylaxis. Patient follows up with Dr. Jr escobra at [facility] Workup in the hospital consisted of: Patient had CT of the head on 09/04/2020 is reported as no acute hemorrhage or mass effect. Degenerative and remote multiple ischemic change. White blood cell is 6.9 which is normal. Sodium is 139. Creatinine is at some 0.199. AST of 17 and ALT of 10. The serum glucose is 105. Urinalysis does not seem impressive for urinary tract infection. Crowder virus PCR was not detected. Review of Systems Review of system is limited but the per positive and negative as per HPI. Past Medical History Past Medical History: Chest Pain / Angina, CVA/TIA, Diabetes Mellitus, Hypertension, Renal Disease, Seizure Disorder, Thyroid Disorder Additional Past Medical History / Comment(s): Dialysis, bipolar, neuropathy, baseline orientation to person/place, drop foot left, only able to walk short distances with walker or wheelchair History of Any Multi-Drug Resistant Organisms: None Reported Past Surgical History: Section, Tonsillectomy Additional Past Surgical History / Comment(s): left arm fistula, loop recorder, vagus nerve stimulator Past Anesthesia/Blood Transfusion Reactions: No Reported Reaction Past Psychological History: Bipolar Smoking Status: Former smoker Past Alcohol Use History: Occasional Past Drug Use History: None Reported - Past Family History Father Family Medical History: Unable to Obtain Additional Family Medical History / Comment(s): adopted Medications and Allergies Home Medications Medication Instructions Recorded Confirmed Type Insulin Glargine [Lantus] 12 unit SQ HS 12/26/19 09/06/20 History INSULIN LISPRO (humaLOG) [humaLOG] See Protocol SQ ACHS 09/04/20 09/06/20 History Lacosamide [Vimpat] 100 mg PO DIRECTED 09/04/20 09/06/20 History Aspirin [Adult Low Dose Aspirin EC] 81 mg PO DAILY #30 tablet. 09/05/20 09/06/20 Rx Atorvastatin [Lipitor] 20 mg PO DAILY #30 tab 09/05/20 09/06/20 Rx Citalopram Hydrobromide [CeleXA] 10 mg PO DAILY #30 tab 09/05/20 09/06/20 Rx Clopidogrel [Plavix] 75 mg PO DAILY #30 tab 09/05/20 09/06/20 Rx Metoprolol Tartrate 25 mg PO BID #60 tab 09/05/20 09/06/20 Rx Pantoprazole [Protonix] 40 mg PO AC-BRKFST #30 tablet.dr 09/05/20 09/06/20 Rx Sevelamer [Renvela] 800 mg PO AC-TID #90 tab 09/05/20 09/06/20 Rx amLODIPine [Norvasc] 10 mg PO DAILY #30 tab 09/05/20 09/06/20 Rx levETIRAcetam [Keppra] 1,000 mg PO BID #60 tab 09/05/20 09/06/20 Rx cloBAZam [Clobazam] 20 mg PO BID 09/07/20 09/07/20 History Allergies Allergy/AdvReac Type Severity Reaction Status Date / Time Penicillins Allergy Itching Verified 09/06/20 21:42 Physical Examination - Vital Signs Vital Signs: Vital Signs Temp Pulse Pulse Resp BP BP Pulse Ox 09/07/20 07:29 97.4 F L 78 18 134/72 100 09/07/20 02:30 68 20 120/69 100 09/07/20 02:00 97.5 F L 75 18 141/79 100 09/06/20 23:52 97.1 F L 70 16 125/73 100 09/06/20 22:39 72 18 120/83 100 09/06/20 21:59 100 09/06/20 20:40 80 18 157/87 100 09/06/20 19:36 93 16 169/96 100 09/06/20 19:03 97.2 F L 85 14 156/84 96 Intake and Output 09/06/20 09/07/20 09/07/20 22:59 06:59 14:59 Other: # Voids 0 Weight 81.647 kg 81.647 kg GENERAL: The patient is lying in bed and is not in acute distress. CHEST: The heart rate is regular rate rhythm. No murmurs to auscultation. No carotid bruit bilaterally. LUNG: Clear to auscultation bilaterally no wheezing noted throughout. Not labored breathing. ABDOMEN/GI: Bowel sounds present in all 4 quadrants. No tenderness to palpation throughout. NEUROLOGICAL: Higher mental function: The patient is awake, alert, oriented to self, place and time. Patient is following commands. No aphasia and no neglect. Cranial nerves: The pupils are round, equal and reactive to light and accommodation. Visual reich are full to confrontation throughout. Extraocular movement is intact no nystagmus is noted. Facial sensation is normal to touch throughout. The facial strength is normal throughout. Hearing is normal bilaterally to hand rub. Tongue is midline and moved [id number] without any difficulty. No dysarthria is noted. Motor: Gait is deferred. The strength is 4+ over left upper extremity and 3+ over the left lower extremity otherwise 5/5 over the right. . Sensation: Sensation is decreased over the left side to light touch. Reflexes (right/left): 3+ over the left side while 2+ over the right side. Plantars is upgoin over the left and mute over the right. Results - Laboratory Findings CBC and BMP: 09/06/20 22:33 09/06/20 22:33 Abnormal Lab Findings: Abnormal Labs 09/06/20 09/06/20 09/06/20 20:00 22:33 22:33 RBC 3.29 L Hgb 9.6 L Hct 29.1 L Chloride 108 H Carbon Dioxide 19 L BUN 57 H Creatinine 10.19 H* Glucose 105 H POC Glucose (mg/dL) Albumin 3.4 L Urine Protein 1+ H Urine Glucose (UA) 1+ H Urine Blood Trace H Ur Leukocyte Esterase Trace H Amorphous Sediment Rare H Urine Bacteria Occasional H 09/07/20 06:54 RBC Hgb Hct Chloride Carbon Dioxide BUN Creatinine Glucose POC Glucose (mg/dL) 156 H Albumin Urine Protein Urine Glucose (UA) Urine Blood Ur Leukocyte Esterase Amorphous Sediment Urine Bacteria Assessment and Plan Assessment: 50-year-old woman with history of epilepsy, status post VNS that presents for break-through seizure on 09/04/2020 then was discharged and presents back on 09/06/2020 for seizure. Long-standing history of epilepsy, with a breakthrough seizure History of CVA with left hemiparesis End-stage renal disease on hemodialysis Diabetes Hypertension Plan: I ordered one time Vimpat 150mg and Keppra 1gm Now. I will decrease Keppra from 1000mg to 500mg 1 tab bid with post dialysis 500mg (M,W,F) since it seems high dose for ESRD and this was verfied with inpatient pharmacy as well. I increased Vimpat from 100mg 1 tab bid to 150mg 1 tab bid with post dialysis 100mg (M,W,F) To continue home dose Clobazam 20mg 1 tab bid (we don't have medication inpatient. So will try to talk to to bring medication in). Will try to verify with rest of home medications with her pharmacy since is not exactly sure. Keppra level is ordered and is pending. An EEG is not warranted since patient is back to baseline and has known history of epilepsy and had EEG in our facility in past. Continue seizure pre-caution. Continue Plavix 75 mg daily and Lipitor 20 mg a daily for stroke prophylaxis. If the patient is stable, she can be discharge tomorrow. Patient to follow-up with her neurologist within a week as outpatient ( Dr. Camejo sad over at [facility]). The plan was discussed with the patient's nurse and her . Thank you for the consultation. The plan was discussed with the patients nurse Cristhian Luevano MD Neuro-Hospitalist. Time with Patient: Greater than 30
[2020-09-07 11:34] LABS: Glucose,Whole Blood 192 mg/dL (75-99)
--- NOTE | 2020-09-07 11:57 | P.NPCON ---
History of Present Illness - Reason for Consult end stage renal disease - History of Present Illness Reason for consultation: End-stage renal disease History of present illness: Patient is a 50-year-old female seen in the consultation for end-stage renal disease. She is maintained on hemodialysis on Monday schedule. Patient was recently discharged due to seizures 2 days ago and had another seizure last night. She was brought to the hospital by the EMS. Patient is not a very reliable historian. Currently awake. No chest pain or shortness of breath. No edema. Blood pressure stable. She is being followed by neurology and is currently on IV Keppra. She is on multiple anticonvulsants. No fever or chills. No vomiting or diarrhea. No chest pain or shortness breath. Vital signs are stable. General: The patient appeared well nourished and normally developed. HEENT: Head exam is unremarkable. Neck is without jugular venous distension. LUNGS: Breath sounds decreased. HEART: Rate and Rhythm are regular. ABDOMEN: Soft, nontender. EXTREMITITES: No edema. Past Medical History Past Medical History: Chest Pain / Angina, CVA/TIA, Diabetes Mellitus, Hypertension, Renal Disease, Seizure Disorder, Thyroid Disorder Additional Past Medical History / Comment(s): Dialysis, bipolar, neuropathy, baseline orientation to person/place, drop foot left, only able to walk short distances with walker or wheelchair History of Any Multi-Drug Resistant Organisms: None Reported Past Surgical History: Section, Tonsillectomy Additional Past Surgical History / Comment(s): left arm fistula, loop recorder, vagus nerve stimulator Past Anesthesia/Blood Transfusion Reactions: No Reported Reaction Past Psychological History: Bipolar Smoking Status: Former smoker Past Alcohol Use History: Occasional Past Drug Use History: None Reported - Past Family History Father Family Medical History: Unable to Obtain Additional Family Medical History / Comment(s): adopted Medications and Allergies Home Medications Medication Instructions Recorded Confirmed Type Insulin Glargine [Lantus] 12 unit SQ HS 12/26/19 09/06/20 History INSULIN LISPRO (humaLOG) [humaLOG] See Protocol SQ ACHS 09/04/20 09/06/20 History Lacosamide [Vimpat] 100 mg PO DIRECTED 09/04/20 09/06/20 History Aspirin [Adult Low Dose Aspirin EC] 81 mg PO DAILY #30 tablet. 09/05/20 09/06/20 Rx Atorvastatin [Lipitor] 20 mg PO DAILY #30 tab 09/05/20 09/06/20 Rx Citalopram Hydrobromide [CeleXA] 10 mg PO DAILY #30 tab 09/05/20 09/06/20 Rx Clopidogrel [Plavix] 75 mg PO DAILY #30 tab 09/05/20 09/06/20 Rx Metoprolol Tartrate 25 mg PO BID #60 tab 09/05/20 09/06/20 Rx Pantoprazole [Protonix] 40 mg PO AC-BRKFST #30 tablet. 09/05/20 09/06/20 Rx Sevelamer [Renvela] 800 mg PO AC-TID #90 tab 09/05/20 09/06/20 Rx amLODIPine [Norvasc] 10 mg PO DAILY #30 tab 09/05/20 09/06/20 Rx levETIRAcetam [Keppra] 1,000 mg PO BID #60 tab 09/05/20 09/06/20 Rx Allergies Allergy/AdvReac Type Severity Reaction Status Date / Time Penicillins Allergy Itching Verified 09/06/20 21:42 Physical Exam Vitals: Vital Signs Temp Pulse Pulse Resp BP BP Pulse Ox 09/07/20 07:29 97.4 F L 78 18 134/72 100 09/07/20 02:30 68 20 120/69 100 09/07/20 02:00 97.5 F L 75 18 141/79 100 09/06/20 23:52 97.1 F L 70 16 125/73 100 09/06/20 22:39 72 18 120/83 100 09/06/20 21:59 100 09/06/20 20:40 80 18 157/87 100 09/06/20 19:36 93 16 169/96 100 09/06/20 19:03 97.2 F L 85 14 156/84 96 Intake and Output 09/06/20 09/07/20 09/07/20 22:59 06:59 14:59 Intake Total 150 Balance 150 Intake: IV 150 Lacosamide IV 150 mg In 50 Sodium Chloride 0.9% 50 ml @ 100 mls/hr IVPB ONCE STA Rx#:[id number] levETIRAcetam IV 1,000 mg 100 In Saline 1 100ml.bag @ 400 mls/hr IVPB ONCE STA Rx#:[id number] Other: # Voids 0 Weight 81.647 kg 81.647 kg Results - Lab Results Most recent lab results Calcium 8.6 mg/dL (8.4-10.2) 09/06/20 22:33 09/06/20 22:33 09/06/20 22:33 Assessment and Plan Plan: Assessment: 1. End-stage renal disease maintained on hemodialysis on Monday schedule. 2. Seizure disorder. Neurology following. 3. Metabolic acidosis secondary to chronic kidney disease. Expect improvement postdialysis. 4. Chronic kidney disease mineral bone disease maintained on Renvela. 5. Diabetes mellitus. 6. Hypertension with chronic kidney disease. Stable. Plan: Hemodialysis today. Thank you for the consultation. I will continue to follow the patient with you during her hospital stay.
[2020-09-07] MEDS: METOPROLOL TARTRATE 25 MG TAB PO SCH ×2 (12:14→20:28)
[2020-09-07] MEDS: SEVELAMER 800 MG TAB PO SCH ×2 (12:14→17:30)
[2020-09-07] MEDS: CLOPIDOGREL 75 MG TAB PO SCH (12:14)
--- NOTE | 2020-09-07 13:52 | P.HPIM ---
History of Present Illness Patient is pleasant 50-year-old female came in with a couple episodes of seizures. Patient had multiple such episodes in the past with multiple regimen changes. Patient is presently on Keppra clobazam and Vimpat. Patient is still drowsy. Patient had 2 episodes since yesterday. Patient received 4 total 4 mg of Ativan in ER. Patient was evaluated by neurology and change the dosing so for above-mentioned medications. Patient is Monday hemodialysis and patient will get the Keppra 500 mg post hemodialysis. Patient is on lower dose of Keppra because of her end-stage renal disease. Patient denied any fever chills nausea vomiting photophobia. Patient denied any headache. Review of Systems REVIEW OF SYSTEMS: CONSTITUTIONAL: No fever, no malaise, no fatigue. HEENT: No recent visual problems or hearing problems. Denied any sore throat. CARDIOVASCULAR: No chest pain, orthopnea, PND, no palpitations, no syncope. PULMONARY: No shortness of breath, no cough, no hemoptysis. GASTROINTESTINAL: No diarrhea, no nausea, no vomiting, no abdominal pain. NEUROLOGICAL: No headaches, no weakness, no numbness. HEMATOLOGICAL: Denies any bleeding or petechiae. GENITOURINARY: Denies any burning micturition, frequency, or urgency. MUSCULOSKELETAL/RHEUMATOLOGICAL: Denies any joint pain, swelling, or any muscle pain. ENDOCRINE: Denies any polyuria or polydipsia. The rest of the 14-point review of systems is negative. Past Medical History Past Medical History: Chest Pain / Angina, CVA/TIA, Diabetes Mellitus, Hypertension, Renal Disease, Seizure Disorder, Thyroid Disorder Additional Past Medical History / Comment(s): Dialysis, bipolar, neuropathy, baseline orientation to person/place, drop foot left, only able to walk short distances with walker or wheelchair History of Any Multi-Drug Resistant Organisms: None Reported Past Surgical History: Section, Tonsillectomy Additional Past Surgical History / Comment(s): left arm fistula, loop recorder, vagus nerve stimulator Past Anesthesia/Blood Transfusion Reactions: No Reported Reaction Past Psychological History: Bipolar Smoking Status: Former smoker Past Alcohol Use History: Occasional Past Drug Use History: None Reported - Past Family History Father Family Medical History: Unable to Obtain Additional Family Medical History / Comment(s): adopted Medications and Allergies Home Medications Medication Instructions Recorded Confirmed Type Insulin Glargine [Lantus] 12 unit SQ HS 12/26/19 09/06/20 History INSULIN LISPRO (humaLOG) [humaLOG] See Protocol SQ ACHS 09/04/20 09/06/20 History Lacosamide [Vimpat] 100 mg PO DIRECTED 09/04/20 09/06/20 History Aspirin [Adult Low Dose Aspirin EC] 81 mg PO DAILY #30 tablet. 09/05/20 09/06/20 Rx Atorvastatin [Lipitor] 20 mg PO DAILY #30 tab 09/05/20 09/06/20 Rx Citalopram Hydrobromide [CeleXA] 10 mg PO DAILY #30 tab 09/05/20 09/06/20 Rx Clopidogrel [Plavix] 75 mg PO DAILY #30 tab 09/05/20 09/06/20 Rx Metoprolol Tartrate 25 mg PO BID #60 tab 09/05/20 09/06/20 Rx Pantoprazole [Protonix] 40 mg PO AC-BRKFST #30 tablet. 09/05/20 09/06/20 Rx Sevelamer [Renvela] 800 mg PO AC-TID #90 tab 09/05/20 09/06/20 Rx amLODIPine [Norvasc] 10 mg PO DAILY #30 tab 09/05/20 09/06/20 Rx levETIRAcetam [Keppra] 1,000 mg PO BID #60 tab 09/05/20 09/06/20 Rx cloBAZam [Clobazam] 20 mg PO BID 09/07/20 09/07/20 History Allergies Allergy/AdvReac Type Severity Reaction Status Date / Time Penicillins Allergy Itching Verified 09/06/20 21:42 Physical Exam Vitals: Vital Signs Temp Pulse Pulse Resp BP BP Pulse Ox 09/07/20 07:29 97.4 F L 78 18 134/72 100 09/07/20 02:30 68 20 120/69 100 09/07/20 02:00 97.5 F L 75 18 141/79 100 09/06/20 23:52 97.1 F L 70 16 125/73 100 09/06/20 22:39 72 18 120/83 100 09/06/20 21:59 100 09/06/20 20:40 80 18 157/87 100 09/06/20 19:36 93 16 169/96 100 09/06/20 19:03 97.2 F L 85 14 156/84 96 Intake and Output 09/06/20 09/07/20 09/07/20 22:59 06:59 14:59 Intake Total 150 Balance 150 Intake: IV 150 Lacosamide IV 150 mg In 50 Sodium Chloride 0.9% 50 ml @ 100 mls/hr IVPB ONCE STA Rx#:[id number] levETIRAcetam IV 1,000 mg 100 In Saline 1 100ml.bag @ 400 mls/hr IVPB ONCE STA Rx#:[id number] Other: # Voids 0 Weight 81.647 kg 81.647 kg PHYSICAL EXAMINATION: GENERAL: The patient is oriented x3, not in any acute distress. Well developed, well nourished. She is bit drowsy. HEENT: Pupils are round and equally reacting to light. EOMI. No scleral icterus. No conjunctival pallor. Normocephalic, atraumatic. No pharyngeal erythema. No thyromegaly. CARDIOVASCULAR: S1 and S2 present. No murmurs, rubs, or gallops. PULMONARY: Chest is clear to auscultation, no wheezing or crackles. ABDOMEN: Soft, nontender, nondistended, normoactive bowel sounds. No palpable organomegaly. MUSCULOSKELETAL: No joint swelling or deformity. EXTREMITIES: No cyanosis, clubbing, or pedal edema. NEUROLOGICAL: Gross neurological examination did not reveal any focal deficits. SKIN: No rashes. Results CBC & Chem 7: 09/06/20 22:33 09/06/20 22:33 Labs: Abnormal Lab Results - Last 24 Hours (Table) 09/06/20 09/06/20 09/06/20 Range/Units 20:00 22:33 22:33 RBC 3.29 L (3.80-5.40) m/uL Hgb 9.6 L (11.4-16.0) gm/dL Hct 29.1 L (34.0-46.0) % Chloride 108 H (98-107) mmol/L Carbon Dioxide 19 L (22-30) mmol/L BUN 57 H (7-17) mg/dL Creatinine 10.19 H* (0.52-1.04) mg/dL Glucose 105 H (74-99) mg/dL POC Glucose (mg/dL) (75-99) mg/dL Albumin 3.4 L (3.5-5.0) g/dL Urine Protein 1+ H (Negative) Urine Glucose (UA) 1+ H (Negative) Urine Blood Trace H (Negative) Ur Leukocyte Esterase Trace H (Negative) Amorphous Sediment Rare H (None) /hpf Urine Bacteria Occasional H (None) /hpf 09/07/20 09/07/20 Range/Units 06:54 11:32 RBC (3.80-5.40) m/uL Hgb (11.4-16.0) gm/dL Hct (34.0-46.0) % Chloride (98-107) mmol/L Carbon Dioxide (22-30) mmol/L BUN (7-17) mg/dL Creatinine (0.52-1.04) mg/dL Glucose (74-99) mg/dL POC Glucose (mg/dL) 156 H 192 H (75-99) mg/dL Albumin (3.5-5.0) g/dL Urine Protein (Negative) Urine Glucose (UA) (Negative) Urine Blood (Negative) Ur Leukocyte Esterase (Negative) Amorphous Sediment (None) /hpf Urine Bacteria (None) /hpf Thrombosis Risk Factor Assmnt - Choose All That Apply Any of the Below Risk Factors Present?: Yes Each Factor Represents 1 point: Age 41-60 years Other Risk Factors: No Other congenital or acquired thrombophilia - If yes, enter type in comment: No Thrombosis Risk Factor Assessment Total Risk Factor Score: 1 Thrombosis Risk Factor Assessment Level: Low Risk Assessment and Plan Plan: -Breakthrough seizures: Continue with the above-mentioned medications titration of those medications as per neurology -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 Patient scheduled hemodialysis is Monday and patient will undergo hemodialysis today. -Type 2 diabetes mellitus hypertension -Hypothyroidism -Gastroesophageal reflux disease. For above-mentioned chronic medical problems patient will be resumed on appropriate home medications -DVT prophylaxis with subcutaneous heparin
[2020-09-07] MEDS: HEPARIN SODIUM,PORCINE 5,000 UNIT/ML 1 ML VIAL SQ SCH ×2 (16:01→23:18)
[2020-09-07 16:52] LABS: Glucose,Whole Blood 187 mg/dL (75-99)
[2020-09-07 20:18] LABS: Glucose,Whole Blood 153 mg/dL (75-99)
[2020-09-07] MEDS: INSULIN DETEMIR (LEVEMIR) 100 UNIT/ML SYR SQ SCH (20:27)
[2020-09-07] MEDS: levETIRAcetam 500 MG TAB PO SCH ×2 (20:28→23:18)
[2020-09-07] MEDS: ATORVASTATIN 20 MG TAB PO SCH (20:28)
[2020-09-07] MEDS: LACOSAMIDE 50 MG TABLET PO SCH (20:28)
[2020-09-07] MEDS ORDERED: levETIRAcetam 500 MG TAB PO SCH (21:00)
[2020-09-08 07:23] LABS: ALT 11 U/L (4-34); AST 18 U/L (14-36); African American GFR (CKD) 7 (>60 ml/min/1.73 sqM); Albumin 3.4 g/dL (3.5-5.0); Albumin/Globulin Ratio 1.2; Alkaline Phosphatase 83 U/L (38-126); Anion Gap 11 mmol/L; Blood Urea Nitrogen 39 mg/dL (7-17); Calcium 8.4 mg/dL (8.4-10.2); Carbon Dioxide 22 mmol/L (22-30); Chloride 103 mmol/L (98-107); Globulin 2.9 g/dL; Glucose 95 mg/dL (74-99); Non-African American GFR(CKD) 6 (>60 ml/min/1.73 sqM); Phosphorus 5.4 mg/dL (2.5-4.5); Potassium 4.5 mmol/L (3.5-5.1); Sodium 136 mmol/L (137-145); Total Bilirubin 0.5 mg/dL (0.2-1.3); Total Protein 6.3 g/dL (6.3-8.2)
[2020-09-08] MEDS: INSULIN ASPART (NovoLOG) 100 UNIT/ML VIAL SQ SCH ×4 (07:23→22:23)
[2020-09-08 07:30] LABS: Glucose,Whole Blood 97 mg/dL (75-99)
[2020-09-08] MEDS: ASPIRIN 81 MG PO SCH (08:00)
[2020-09-08] MEDS: amLODIPine 10 MG TAB PO SCH (08:01)
[2020-09-08] MEDS: METOPROLOL TARTRATE 25 MG TAB PO SCH ×2 (08:01→22:27)
[2020-09-08] MEDS: HEPARIN SODIUM,PORCINE 5,000 UNIT/ML 1 ML VIAL SQ SCH ×3 (08:01→22:27)
[2020-09-08] MEDS: CLOPIDOGREL 75 MG TAB PO SCH (08:01)
[2020-09-08] MEDS: CITALOPRAM HYDROBROMIDE 10 MG TAB PO SCH (08:01)
[2020-09-08] MEDS: SEVELAMER 800 MG TAB PO SCH ×3 (08:01→17:39)
[2020-09-08] MEDS: PANTOPRAZOLE 40 MG TABLET PO SCH (08:01)
[2020-09-08] MEDS: LACOSAMIDE 150 MG TABLET PO SCH ×2 (08:02→22:27)
[2020-09-08] MEDS: levETIRAcetam 500 MG TAB PO SCH ×2 (08:02→22:28)
[2020-09-08 08:04] LABS: Basophils # (A) 0.1 k/uL (0-0.2); Basophils % (A) 1 %; Eosinophils # (A) 0.3 k/uL (0-0.7); Eosinophils % (A) 4 %; HCT 34.4 % (34.0-46.0); HGB 11.3 gm/dL (11.4-16.0); Lymphocytes # (A) 2.8 k/uL (1.0-4.8); Lymphocytes % (A) 43 %; MCH 29.2 pg (25.0-35.0); MCHC 32.9 g/dL (31.0-37.0); MCV 88.7 fL (80.0-100.0); Mean Platelet Volume 9.6; Monocytes # (A) 0.4 k/uL (0-1.0); Monocytes % (A) 6 %; Neutrophils # (A) 2.9 k/uL (1.3-7.7); Neutrophils % (A) 44 %; Platelet Count 160 k/uL (150-450); RBC 3.87 m/uL (3.80-5.40); RDW 14.9 % (11.5-15.5); WBC 6.6 k/uL (3.8-10.6)
[2020-09-08] MEDS ORDERED: ATORVASTATIN 20 MG TAB PO SCH (09:00)
--- NOTE | 2020-09-08 09:09 | P.PN ---
Subjective Progress Note Date: 09/08/20 Principal diagnosis: Seizures Evaluated 50-year-old female this a.m., resting comfortably in bed. Patient recently admitted for seizures and then discharged home, came back to the emergency department for continuous episodes of seizures. Patient on regimen of Keppra, Vimpat, and clobazam. Patient had extensive diagnostic workup in the emergency department revealing breakthrough seizures. Patient answering questions appropriately at baseline. No seizure activity noted upon evaluation this a.m. Patient denies fever, chills, chest pain, palpitations, shortness of breath,, pain, nausea, vomiting or diarrhea at this time. Patient currently under seizure precautions Objective - Vital Signs Vital signs: Vital Signs Temp 98.7 F 09/08/20 06:27 Pulse 82 09/08/20 06:27 Resp 16 09/08/20 06:27 BP 152/82 09/08/20 06:27 Pulse Ox 100 09/08/20 06:27 Intake & Output 09/07/20 09/08/20 09/08/20 18:59 06:59 18:59 Intake Total 372 Output Total 2200 Balance 372 -2200 Intake: IV 150 Lacosamide IV 150 mg In 50 Sodium Chloride 0.9% 50 ml @ 100 mls/hr IVPB ONCE STA Rx#:[id number] levETIRAcetam IV 1,000 mg 100 In Saline 1 100ml.bag @ 400 mls/hr IVPB ONCE STA Rx#:[id number] Oral 222 Output: Urine 200 Hemodialysis 2000 Other: Voiding Method External Catheter - Constitutional General appearance: Present: cooperative - EENT Eyes: Present: edentulous, PERRLA ENT: Present: hard of hearing Ears: bilateral: normal - Neck Carotids: bilateral: upstroke normal Thyroid: bilateral: normal size - Respiratory Respiratory: bilateral: CTA (Anterior lung reich), diminished (Posterior lung reich) - Cardiovascular Details: Normal sinus rhythm Heart rate: 88 Rhythm: regular Heart sounds: normal: S1, S2 - Peripheral edema foot Peripheral Edema: bilateral: Trace - Gastrointestinal General gastrointestinal: Present: normal bowel sounds - Neurologic Neurologic: Present: CNII-XII intact - Musculoskeletal Musculoskeletal: Present: left sided weakness - Psychiatric Psychiatric Comment(s): Alert to person and place - Allied health notes Allied health notes reviewed: nursing - Labs CBC & Chem 7: 09/08/20 06:32 09/08/20 06:32 Labs: Abnormal Lab Results - Last 24 Hours (Table) 09/07/20 09/07/20 09/07/20 Range/Units 11:32 16:49 20:15 Hgb (11.4-16.0) gm/dL Sodium (137-145) mmol/L BUN (7-17) mg/dL Creatinine (0.52-1.04) mg/dL POC Glucose (mg/dL) 192 H 187 H 153 H (75-99) mg/dL Phosphorus (2.5-4.5) mg/dL Albumin (3.5-5.0) g/dL 09/08/20 09/08/20 Range/Units 06:32 06:32 Hgb 11.3 L (11.4-16.0) gm/dL Sodium 136 L (137-145) mmol/L BUN 39 H (7-17) mg/dL Creatinine 7.24 H* (0.52-1.04) mg/dL POC Glucose (mg/dL) (75-99) mg/dL Phosphorus 5.4 H (2.5-4.5) mg/dL Albumin 3.4 L (3.5-5.0) g/dL - Imaging and Cardiology Chest x-ray: pending Assessment and Plan Assessment: Seizure disordercontinue home medications; continue recommendations and treatment plan from neurology End-stage kidney disease dialysis dependent Mondaycontinue consultation with nephrology for recommendations and treatment plan History of CVA in the past with left-sided hemiparesis Diabetes mellitus type 2 Hypertension Hypothyroidism GERD Bipolar Diabetic neuropathy Continue home medications and recommendations from neurology for seizures Consultation with nephrology for management of dialysis Monday and keiko Continue medical management Time with Patient: Greater than 30
--- NOTE | 2020-09-08 10:02 | XR ---
EXAMINATION TYPE: XR chest 1V DATE OF EXAM: 09/08/2020 COMPARISON: 09/04/2020 HISTORY: Shortness of breath TECHNIQUE: Single frontal view of the chest is obtained. FINDINGS: There is no focal air space opacity, pleural effusion, or pneumothorax seen. The cardiac silhouette size is within normal limits. The osseous structures are intact. Cardiac device seen. No central lead. Limited inspiration with elevated right hemidiaphragm. IMPRESSION: Cardiomegaly with no definite consolidative process. Mild prominence of the central inte rstitium may be related to poor inspiration rather than bronchitis or interstitial pneumonitis. Corre late clinically
[2020-09-08 11:27] LABS: Glucose,Whole Blood 193 mg/dL (75-99)
--- NOTE | 2020-09-08 14:07 | P.PN ---
Subjective Patient is seen in follow-up for end-stage renal disease. She is maintained on hemodialysis on Monday schedule. Currently resting in bed. No seizures overnight. No chest pain or shortness of breath. Vital signs are stable. General: The patient appeared well nourished and normally developed. HEENT: Head exam is unremarkable. Neck is without jugular venous distension. LUNGS: Breath sounds decreased. HEART: Rate and Rhythm are regular. ABDOMEN: Soft, nontender. EXTREMITITES: No edema. Objective - Vital Signs Vital signs: Vital Signs Temp 98.6 F 09/08/20 13:27 Pulse 79 09/08/20 13:27 Resp 17 09/08/20 13:27 BP 105/61 09/08/20 13:27 Pulse Ox 98 09/08/20 13:27 Intake & Output 09/07/20 09/08/20 09/08/20 18:59 06:59 18:59 Intake Total 372 Output Total 2200 Balance 372 -2200 Intake: IV 150 Lacosamide IV 150 mg In 50 Sodium Chloride 0.9% 50 ml @ 100 mls/hr IVPB ONCE STA Rx#:[id number] levETIRAcetam IV 1,000 mg 100 In Saline 1 100ml.bag @ 400 mls/hr IVPB ONCE STA Rx#:[id number] Oral 222 Output: Urine 200 Hemodialysis 2000 Other: Voiding Method External Catheter External Catheter - Labs CBC & Chem 7: 09/08/20 06:32 09/08/20 06:32 Labs: Abnormal Lab Results - Last 24 Hours (Table) 09/07/20 09/07/20 09/08/20 Range/Units 16:49 20:15 06:32 Hgb 11.3 L (11.4-16.0) gm/dL Sodium (137-145) mmol/L BUN (7-17) mg/dL Creatinine (0.52-1.04) mg/dL POC Glucose (mg/dL) 187 H 153 H (75-99) mg/dL Phosphorus (2.5-4.5) mg/dL Albumin (3.5-5.0) g/dL 09/08/20 09/08/20 Range/Units 06:32 11:24 Hgb (11.4-16.0) gm/dL Sodium 136 L (137-145) mmol/L BUN 39 H (7-17) mg/dL Creatinine 7.24 H* (0.52-1.04) mg/dL POC Glucose (mg/dL) 193 H (75-99) mg/dL Phosphorus 5.4 H (2.5-4.5) mg/dL Albumin 3.4 L (3.5-5.0) g/dL Assessment and Plan Plan: Assessment: 1. End-stage renal disease maintained on hemodialysis on Monday schedule. 2. Seizure disorder. Neurology following. 3. Metabolic acidosis secondary to chronic kidney disease. Improved postdialysis. 4. Chronic kidney disease mineral bone disease maintained on Renvela. Phosphorus 5.4. 5. Diabetes mellitus. 6. Hypertension with chronic kidney disease. Stable. Plan: Hemodialysis tomorrow. Anticipate discharge soon.
--- NOTE | 2020-09-08 15:45 | P.PN ---
Subjective Progress Note Date: 09/08/20 Patient was seen at bedside and the patient has not had any further seizure-like episodes per the patient's nurse. According to the patient she's doing well and she feels a stable. Objective - Vital Signs Vital signs: Vital Signs Temp 98.6 F 09/08/20 13:27 Pulse 79 09/08/20 13:27 Resp 17 09/08/20 13:27 BP 105/61 09/08/20 13:27 Pulse Ox 98 09/08/20 13:27 Intake & Output 09/07/20 09/08/20 09/08/20 18:59 06:59 18:59 Intake Total 372 Output Total 2200 Balance 372 -2200 Intake: IV 150 Lacosamide IV 150 mg In 50 Sodium Chloride 0.9% 50 ml @ 100 mls/hr IVPB ONCE STA Rx#:[id number] levETIRAcetam IV 1,000 mg 100 In Saline 1 100ml.bag @ 400 mls/hr IVPB ONCE STA Rx#:[id number] Oral 222 Output: Urine 200 Hemodialysis 2000 Other: Voiding Method External Catheter External Catheter - Exam GENERAL: The patient is lying in bed and is not in acute distress. NEUROLOGICAL: Higher mental function: The patient is awake, alert, oriented to self, place and time. Patient is following commands. No aphasia and no neglect. Cranial nerves: The pupils are round, equal and reactive to light and accommodation. Visual reich are full to confrontation throughout. Extraocular movement is intact no nystagmus is noted. Facial sensation is normal to touch throughout. The facial strength is normal throughout. Hearing is normal bilaterally to hand rub. Tongue is midline and moved [id number] without any difficulty. No dysarthria is noted. Motor: Gait is deferred. The strength is 4+ over left upper extremity and 3+ over the left lower extremity otherwise 5/5 over the right. . Sensation: Sensation is decreased over the left side to light touch. Reflexes (right/left): 3+ over the left side while 2+ over the right side. Plantars is upgoin over the left and mute over the right. - Labs CBC & Chem 7: 09/08/20 06:32 09/08/20 06:32 Labs: Abnormal Lab Results - Last 24 Hours (Table) 09/07/20 09/07/20 09/08/20 Range/Units 16:49 20:15 06:32 Hgb 11.3 L (11.4-16.0) gm/dL Sodium (137-145) mmol/L BUN (7-17) mg/dL Creatinine (0.52-1.04) mg/dL POC Glucose (mg/dL) 187 H 153 H (75-99) mg/dL Phosphorus (2.5-4.5) mg/dL Albumin (3.5-5.0) g/dL 09/08/20 09/08/20 Range/Units 06:32 11:24 Hgb (11.4-16.0) gm/dL Sodium 136 L (137-145) mmol/L BUN 39 H (7-17) mg/dL Creatinine 7.24 H* (0.52-1.04) mg/dL POC Glucose (mg/dL) 193 H (75-99) mg/dL Phosphorus 5.4 H (2.5-4.5) mg/dL Albumin 3.4 L (3.5-5.0) g/dL Assessment and Plan Assessment: 50-year-old woman with history of epilepsy, status post VNS that presents for break-through seizure on 09/04/2020 then was discharged and presents back on 09/06/2020 for seizure. Long-standing history of epilepsy, with a breakthrough seizure History of CVA with left hemiparesis End-stage renal disease on hemodialysis Diabetes Hypertension Plan: * I decreased Keppra from 1000mg to 500mg 1 tab bid with post dialysis 500mg (M,W,F) since it seems high dose for ESRD and this was verfied with inpatient pharmacy as well (was modified on 09/07/20 by myself). * Continue 150mg 1 tab bid (increased from 100mg 1 tab bid) with post dialysis 100mg (M,W,F) * To continue home dose Clobazam 20mg 1 tab bid (we don't have medication inpatient. * Per the patient he stated that the what ever the bottles that the the patient came in with R the medication she is on. Upon checking her bag mentioned that she is on Keppra 1 THOUSAND milligrams 1 tablet twice a day other than that there is no other seizure medication at. Upon asking the patient's the patient's if she was on Vimpat he stated yes and said she is on 100 mg 1 tablet twice a day and upon asking her if she was on clobazam he said yes but he didn't know the dose. I felt the patient the does not know exactly what the patient's medication or and her doses are not sure of the patient was missing any medications at home or not. * Keppra level is 40 (therapeutic) on 09-06-20 * An EEG is not warranted since patient is back to baseline and has known history of epilepsy and had EEG in our facility in past. * Continue seizure pre-caution. * Continue Plavix 75 mg daily and Lipitor 20 mg a daily for stroke prophylaxis. * Patient to follow-up with her neurologist within a week as outpatient ( Dr. Jr escobar at [facility]). UPDATE: I contacted the [facility] neurology Department and I spoke with a medical receptionist assistant regarding the the patient and they stated that the patient was seen in the hospital in April 2020 and the last time the patient is seen in the office was in January 2020. On her last hospital visit in April 2020 she was the discharged on Vimpat 100 mg 1 tablet twice a day, Keppra 500 mg 1 tablet twice a day with an additional dose of 500 mg after dialysis on Monday was in Monday and on for the 20 mg 1 tablet twice a day. It is a possibility that the patient had an increase of medication that was directly sent to the pharmacy. The patient is clear for discharge. The plan was discussed with the patient's primary team and her nurse. Cristhian Luevano MD Neuro-Hospitalist. Time with Patient: Less than 30
[2020-09-08 16:44] LABS: Glucose,Whole Blood 208 mg/dL (75-99)
[2020-09-08 20:59] LABS: Glucose,Whole Blood 110 mg/dL (75-99)
[2020-09-08] MEDS ORDERED: LACOSAMIDE 150 MG TABLET PO SCH (21:00)
[2020-09-08] MEDS: INSULIN DETEMIR (LEVEMIR) 100 UNIT/ML SYR SQ SCH (22:26)
[2020-09-08] MEDS: ATORVASTATIN 20 MG TAB PO SCH (22:27)
[2020-09-09 07:17] LABS: Basophils # (A) 0.1 k/uL (0-0.2); Basophils % (A) 1 %; Eosinophils # (A) 0.2 k/uL (0-0.7); Eosinophils % (A) 4 %; HCT 31.1 % (34.0-46.0); HGB 10.3 gm/dL (11.4-16.0); Lymphocytes # (A) 2.6 k/uL (1.0-4.8); Lymphocytes % (A) 43 %; MCH 29.9 pg (25.0-35.0); MCHC 33.1 g/dL (31.0-37.0); MCV 90.4 fL (80.0-100.0); Monocytes # (A) 0.3 k/uL (0-1.0); Monocytes % (A) 5 %; Neutrophils # (A) 2.7 k/uL (1.3-7.7); Neutrophils % (A) 45 %; Platelet Count 246 k/uL (150-450); RBC 3.44 m/uL (3.80-5.40); RDW 14.4 % (11.5-15.5); WBC 6.1 k/uL (3.8-10.6)
[2020-09-09 07:18] LABS: Glucose,Whole Blood 80 mg/dL (75-99)
[2020-09-09 07:26] LABS: ALT 10 U/L (4-34); AST 15 U/L (14-36); African American GFR (CKD) 5 (>60 ml/min/1.73 sqM); Albumin 3.6 g/dL (3.5-5.0); Albumin/Globulin Ratio 1.2; Alkaline Phosphatase 76 U/L (38-126); Anion Gap 14 mmol/L; Blood Urea Nitrogen 50 mg/dL (7-17); Calcium 9.1 mg/dL (8.4-10.2); Carbon Dioxide 19 mmol/L (22-30); Chloride 103 mmol/L (98-107); Glucose 78 mg/dL (74-99); Magnesium 2.2 mg/dL (1.6-2.3); Non-African American GFR(CKD) 4 (>60 ml/min/1.73 sqM); Phosphorus 6.9 mg/dL (2.5-4.5); Potassium 4.8 mmol/L (3.5-5.1); Sodium 136 mmol/L (137-145); Total Bilirubin 0.5 mg/dL (0.2-1.3); Total Protein 6.6 g/dL (6.3-8.2)
[2020-09-09] MEDS: INSULIN ASPART (NovoLOG) 100 UNIT/ML VIAL SQ SCH ×4 (08:05→21:09)
[2020-09-09] MEDS ORDERED: GELATIN SPONGE,ABSORB (LARGE) 1 EACH SPONGE ONE (08:30)
[2020-09-09] MEDS: PANTOPRAZOLE 40 MG TABLET PO SCH (08:53)
[2020-09-09] MEDS: HEPARIN SODIUM,PORCINE 5,000 UNIT/ML 1 ML VIAL SQ SCH ×3 (08:53→23:52)
[2020-09-09] MEDS: SEVELAMER 800 MG TAB PO SCH ×3 (08:53→17:17)
[2020-09-09] MEDS: CLOPIDOGREL 75 MG TAB PO SCH (08:53)
[2020-09-09] MEDS: ASPIRIN 81 MG PO SCH (08:53)
[2020-09-09] MEDS: amLODIPine 10 MG TAB PO SCH (08:53)
[2020-09-09] MEDS: METOPROLOL TARTRATE 25 MG TAB PO SCH ×2 (08:53→21:10)
[2020-09-09] MEDS: LACOSAMIDE 150 MG TABLET PO SCH ×2 (08:54→21:10)
[2020-09-09] MEDS: levETIRAcetam 500 MG TAB PO SCH ×3 (08:54→21:10)
[2020-09-09] MEDS: CITALOPRAM HYDROBROMIDE 10 MG TAB PO SCH (08:54)
[2020-09-09] MEDS ORDERED: LACOSAMIDE 50 MG TABLET PO SCH (09:00)
--- NOTE | 2020-09-09 09:16 | XR ---
EXAMINATION TYPE: XR chest 2V DATE OF EXAM: 09/09/2020 COMPARISON: 09/08/2020 HISTORY: Shortness of breath TECHNIQUE: Frontal and lateral views of the chest are obtained. FINDINGS: Scattered senescent parenchymal changes noted. No evidence for infiltrate. No evidence for atelectasis. Heart size is stable. Mediastinal structures are stable and grossly unremarkable. No evidence for hilar prominence. Degenerative changes dorsal spine. IMPRESSION: 1. No evidence for acute pulmonary disease.
--- NOTE | 2020-09-09 09:28 | P.PN ---
Subjective Progress Note Date: 09/09/20 Principal diagnosis: Seizures Evaluated 50-year-old female this a.m., resting comfortably in bed. Patient complaint of dyspnea on exertion, generalized malaise and fatigue. Patient denies fever, chills, chest pain, palpitations, abdominal pain, nausea, vomiting, and diarrhea.Patient on regimen of Keppra, Vimpat, and clobazam. Objective - Vital Signs Vital signs: Vital Signs Temp 97.9 F 09/09/20 08:00 Pulse 79 09/09/20 08:00 Resp 18 09/09/20 08:00 BP 148/71 09/09/20 08:00 Pulse Ox 99 09/09/20 08:00 Intake & Output 09/08/20 09/09/20 09/09/20 18:59 06:59 18:59 Output Total 450 151 Balance -450 -151 Output: Urine 450 150 Stool 1 Other: Voiding Method External Catheter External Catheter - Constitutional General appearance: Present: cooperative - EENT Eyes: Present: EOMI, PERRLA ENT: Present: normal oropharynx Ears: bilateral: normal - Neck Neck: Present: normal ROM - Respiratory Respiratory: bilateral: diminished (Posterior lung reich), rhonchi (Anterior lung reich) - Cardiovascular Details: Normal sinus rhythm Heart rate: 78 Rhythm: regular Heart sounds: normal: S1, S2 - Peripheral pulses radial pulse Peripheral Pulses: bilateral: Normal dorsalis pedis Peripheral Pulses: bilateral: Normal - Gastrointestinal General gastrointestinal: Present: normal bowel sounds - Integumentary Integumentary: Present: pale - Neurologic Neurologic: Present: CNII-XII intact - Musculoskeletal Musculoskeletal: Present: left sided weakness - Psychiatric Psychiatric Comment(s): Alert to person and place neurological baseline - Allied health notes Allied health notes reviewed: nursing - Labs CBC & Chem 7: 09/09/20 06:53 09/09/20 06:53 Labs: Abnormal Lab Results - Last 24 Hours (Table) 09/08/20 09/08/20 09/08/20 Range/Units 06:32 11:24 16:39 RBC (3.80-5.40) m/uL Hgb (11.4-16.0) gm/dL Hct (34.0-46.0) % Sodium (137-145) mmol/L Carbon Dioxide (22-30) mmol/L BUN (7-17) mg/dL Creatinine (0.52-1.04) mg/dL POC Glucose (mg/dL) 193 H 208 H (75-99) mg/dL Hemoglobin A1c 7.0 H (4.0-6.0) % Phosphorus (2.5-4.5) mg/dL 09/08/20 09/09/20 09/09/20 Range/Units 20:58 06:53 06:53 RBC 3.44 L (3.80-5.40) m/uL Hgb 10.3 L (11.4-16.0) gm/dL Hct 31.1 L (34.0-46.0) % Sodium 136 L (137-145) mmol/L Carbon Dioxide 19 L (22-30) mmol/L BUN 50 H (7-17) mg/dL Creatinine 9.63 H* (0.52-1.04) mg/dL POC Glucose (mg/dL) 110 H (75-99) mg/dL Hemoglobin A1c (4.0-6.0) % Phosphorus 6.9 H (2.5-4.5) mg/dL Assessment and Plan Assessment: Seizure disordercontinue home medications; continue recommendations and treatment plan from neurology End-stage kidney disease dialysis dependent Mondaycontinue consultation with nephrology for recommendations and treatment plan History of CVA in the past with left-sided hemiparesis Diabetes mellitus type 2 Hypertension Hypothyroidism GERD Bipolar Diabetic neuropathy Continue home medications and recommendations from neurology for seizures Consultation with nephrology for management of dialysis Monday and Monday Continue medical management Time with Patient: Greater than 30
--- NOTE | 2020-09-09 10:08 | P.PN ---
Subjective Patient is seen in follow-up for end-stage renal disease. She is maintained on hemodialysis on Monday schedule. Currently resting in bed. Per nurse, vision was more lethargic yesterday but appears back to baseline this morning. Vital signs are stable. General: The patient appeared well nourished and normally developed. HEENT: Head exam is unremarkable. Neck is without jugular venous distension. LUNGS: Breath sounds decreased. HEART: Rate and Rhythm are regular. ABDOMEN: Soft, nontender. EXTREMITITES: No edema. Objective - Vital Signs Vital signs: Vital Signs Temp 97.9 F 09/09/20 08:00 Pulse 79 09/09/20 08:00 Resp 18 09/09/20 08:00 BP 148/71 09/09/20 08:00 Pulse Ox 99 09/09/20 08:00 Intake & Output 09/08/20 09/09/20 09/09/20 18:59 06:59 18:59 Output Total 450 151 Balance -450 -151 Output: Urine 450 150 Stool 1 Other: Voiding Method External Catheter External Catheter - Labs CBC & Chem 7: 09/09/20 06:53 09/09/20 06:53 Labs: Abnormal Lab Results - Last 24 Hours (Table) 09/08/20 09/08/20 09/08/20 Range/Units 06:32 11:24 16:39 RBC (3.80-5.40) m/uL Hgb (11.4-16.0) gm/dL Hct (34.0-46.0) % Sodium (137-145) mmol/L Carbon Dioxide (22-30) mmol/L BUN (7-17) mg/dL Creatinine (0.52-1.04) mg/dL POC Glucose (mg/dL) 193 H 208 H (75-99) mg/dL Hemoglobin A1c 7.0 H (4.0-6.0) % Phosphorus (2.5-4.5) mg/dL 09/08/20 09/09/20 09/09/20 Range/Units 20:58 06:53 06:53 RBC 3.44 L (3.80-5.40) m/uL Hgb 10.3 L (11.4-16.0) gm/dL Hct 31.1 L (34.0-46.0) % Sodium 136 L (137-145) mmol/L Carbon Dioxide 19 L (22-30) mmol/L BUN 50 H (7-17) mg/dL Creatinine 9.63 H* (0.52-1.04) mg/dL POC Glucose (mg/dL) 110 H (75-99) mg/dL Hemoglobin A1c (4.0-6.0) % Phosphorus 6.9 H (2.5-4.5) mg/dL Assessment and Plan Plan: Assessment: 1. End-stage renal disease maintained on hemodialysis on Monday schedule. 2. Seizure disorder. Neurology following. 3. Metabolic acidosis secondary to chronic kidney disease. Expect improvement postdialysis. 4. Chronic kidney disease mineral bone disease maintained on Renvela. P hosphorus 5.4. 5. Diabetes mellitus. 6. Hypertension with chronic kidney disease. Stable. Plan: Hemodialysis today.
[2020-09-09 11:31] LABS: Glucose,Whole Blood 399 mg/dL (75-99)
[2020-09-09 17:00] LABS: Glucose,Whole Blood 170 mg/dL (75-99)
--- NOTE | 2020-09-09 17:53 | P.PN ---
Subjective Progress Note Date: 09/09/20 Patient was seen at bedside and per the patient nurse the patient has been more fatigued but other than that the patient's neurological exam has been the same and she is oriented at her baseline. Also per the patient's nurse no clinical seizure-like activity witnessed Upon seeing the patient that she stated that the she feels about the same today compared to yesterday. She just feels a little bit tired throughout her body. Today the patient had dialysis. Objective - Vital Signs Vital signs: Vital Signs Temp 97.8 F 09/09/20 15:33 Pulse 79 09/09/20 15:33 Resp 18 09/09/20 15:33 BP 126/65 09/09/20 15:33 Pulse Ox 99 09/09/20 08:00 Intake & Output 09/08/20 09/09/20 09/09/20 18:59 06:59 18:59 Output Total 844 485 9468 Balance -450 -151 -1000 Output: Urine 450 150 Stool 1 Hemodialysis 1000 Other: Voiding Method External Catheter External Catheter External Catheter - Exam GENERAL: The patient is lying in bed and is not in acute distress. Seems more fatigue today. NEUROLOGICAL: Higher mental function: The patient is awake, alert, oriented to self, place and time. Patient is following simple commands but at few times there is delay . No aphasia and no neglect. Cranial nerves: The pupils are round, equal and reactive to light and accommodation. Visual reich are full to confrontation throughout. Extraocular movement is intact no nystagmus is noted. Facial sensation is normal to touch throughout. The facial strength is normal throughout. Hearing is normal bilaterally to hand rub. Tongue is midline and moved [id number] without any difficulty. No dysarthria is noted. Motor: Gait is deferred. The strength is 4+ over left upper extremity and 3+ over the left lower extremity otherwise 5/5 over the right. . Sensation: Sensation is decreased over the left side to light touch. Reflexes (right/left): 3+ over the left side while 2+ over the right side. Plantars is upgoin over the left and mute over the right. - Labs CBC & Chem 7: 09/09/20 06:53 09/09/20 06:53 Labs: Abnormal Lab Results - Last 24 Hours (Table) 09/08/20 09/09/20 09/09/20 Range/Units 20:58 06:53 06:53 RBC 3.44 L (3.80-5.40) m/uL Hgb 10.3 L (11.4-16.0) gm/dL Hct 31.1 L (34.0-46.0) % Sodium 136 L (137-145) mmol/L Carbon Dioxide 19 L (22-30) mmol/L BUN 50 H (7-17) mg/dL Creatinine 9.63 H* (0.52-1.04) mg/dL POC Glucose (mg/dL) 110 H (75-99) mg/dL Phosphorus 6.9 H (2.5-4.5) mg/dL 09/09/20 09/09/20 Range/Units 11:29 16:50 RBC (3.80-5.40) m/uL Hgb (11.4-16.0) gm/dL Hct (34.0-46.0) % Sodium (137-145) mmol/L Carbon Dioxide (22-30) mmol/L BUN (7-17) mg/dL Creatinine (0.52-1.04) mg/dL POC Glucose (mg/dL) 399 H 170 H (75-99) mg/dL Phosphorus (2.5-4.5) mg/dL Assessment and Plan Assessment: 50-year-old woman with history of epilepsy, status post VNS that presents for br eak-through seizure on 09/04/2020 then was discharged and presents back on 09/06/2020 for seizure. Long-standing history of epilepsy, with a breakthrough seizure History of CVA with left hemiparesis End-stage renal disease on hemodialysis Diabetes Hypertension Plan: * I decreased Keppra from 1000mg to 500mg 1 tab bid with post dialysis 500mg (M,W,F) since it seems high dose for ESRD and this was verfied with inpatient pharmacy as well (was modified on 09/07/20 by myself). * Continue 150mg 1 tab bid (increased from 100mg 1 tab bid) with post dialysis 100mg (M,W,F) * To continue home dose Clobazam 20mg 1 tab bid (we don't have medication inpatient. I asked the nurse to contact the patient's to see if he can get her Clobazam medication to the hospital. * Per the patient he stated that the what ever the bottles that the the patient came in with R the medication she is on. Upon checking her bag mentioned that she is on Keppra 1 THOUSAND milligrams 1 tablet twice a day other than that there is no other seizure medication at. Upon asking the patient's the patient's if she was on Vimpat he stated yes and said sh e is on 100 mg 1 tablet twice a day and upon asking her if she was on clobazam he said yes but he didn't know the dose. I felt the patient the does not know exactly what the patient's medication or and her doses are not sure of the patient was missing any medications at home or not. * Keppra level is 40 (therapeutic) on 09-06-20 * An EEG is not warranted since patient is back to baseline and has known history of epilepsy and had EEG in our facility in past. * Continue seizure pre-caution. * Continue Plavix 75 mg daily and Lipitor 20 mg a daily for stroke prophylaxis. * Of note I contacted [facility] neurology Department on 09/08/20 and I spoke with a slitter creaser slotter operator regarding the the patient and they stated that the patient was seen in the hospital in April 2020 and the last time the patient is seen in the office was in January 2020. On her last hospital visit in April 2020 she was the discharged on Vimpat 100 mg 1 tablet twice a day, Keppra 500 mg 1 tablet twice a day with an additional dose of 500 mg after dialysis on Monday was in Monday and on for the 20 mg 1 tablet twice a day. It is a possibility that the patient had an increase of medication that was directly sent to the pharmacy. * Patient to follow-up with her neurologist within a week as outpatient ( Dr. Jr escobar at [facility]). The plan was discussed with the patient's nurse. Cristhian Luevano MD Neuro-Hospitalist. Time with Patient: Less than 30
[2020-09-09 20:29] LABS: Glucose,Whole Blood 165 mg/dL (75-99)
[2020-09-09] MEDS: INSULIN DETEMIR (LEVEMIR) 100 UNIT/ML SYR SQ SCH (21:09)
[2020-09-09] MEDS: ATORVASTATIN 20 MG TAB PO SCH (21:10)
[2020-09-09] MEDS: LACOSAMIDE 50 MG TABLET PO SCH (21:10)
[2020-09-10 06:47] LABS: Basophils # (A) 0.1 k/uL (0-0.2); Basophils % (A) 1 %; Eosinophils # (A) 0.2 k/uL (0-0.7); Eosinophils % (A) 4 %; HCT 29.7 % (34.0-46.0); Lymphocytes # (A) 2.5 k/uL (1.0-4.8); Lymphocytes % (A) 43 %; MCH 30.6 pg (25.0-35.0); MCHC 33.6 g/dL (31.0-37.0); MCV 91.3 fL (80.0-100.0); Mean Platelet Volume 8.4; Monocytes # (A) 0.4 k/uL (0-1.0); Monocytes % (A) 6 %; Neutrophils # (A) 2.6 k/uL (1.3-7.7); Neutrophils % (A) 45 %; Platelet Count 213 k/uL (150-450); RBC 3.26 m/uL (3.80-5.40); RDW 14.3 % (11.5-15.5); WBC 5.9 k/uL (3.8-10.6)
[2020-09-10 06:50] LABS: Glucose,Whole Blood 114 mg/dL (75-99)
[2020-09-10 07:05] LABS: ALT 10 U/L (4-34); AST 16 U/L (14-36); African American GFR (CKD) 8 (>60 ml/min/1.73 sqM); Albumin 3.4 g/dL (3.5-5.0); Albumin/Globulin Ratio 1.2; Alkaline Phosphatase 74 U/L (38-126); Anion Gap 11 mmol/L; Blood Urea Nitrogen 28 mg/dL (7-17); Calcium 9.3 mg/dL (8.4-10.2); Carbon Dioxide 23 mmol/L (22-30); Chloride 103 mmol/L (98-107); Globulin 2.9 g/dL; Glucose 95 mg/dL (74-99); Non-African American GFR(CKD) 7 (>60 ml/min/1.73 sqM); Phosphorus 5.4 mg/dL (2.5-4.5); Potassium 4.4 mmol/L (3.5-5.1); Sodium 137 mmol/L (137-145); Total Bilirubin 0.4 mg/dL (0.2-1.3); Total Protein 6.3 g/dL (6.3-8.2)
[2020-09-10] MEDS: INSULIN ASPART (NovoLOG) 100 UNIT/ML VIAL SQ SCH ×2 (07:19→12:34)
[2020-09-10] MEDS: HEPARIN SODIUM,PORCINE 5,000 UNIT/ML 1 ML VIAL SQ SCH ×2 (07:26→15:02)
[2020-09-10] MEDS: SEVELAMER 800 MG TAB PO SCH ×2 (07:26→12:34)
[2020-09-10] MEDS: PANTOPRAZOLE 40 MG TABLET PO SCH (07:26)
[2020-09-10 07:41] VITALS: BP 138/74; PULSE 87; RESP 18; TEMP 99.1
--- NOTE | 2020-09-10 09:10 | P.PN ---
Subjective Progress Note Date: 09/10/20 Principal diagnosis: Seizures Evaluated 50-year-old female this a.m., resting comfortably in bed. Patient denies fever, chills, chest pain, palpitations, abdominal pain, nausea, v omiting, and diarrhea.Patient on regimen of Keppra, Vimpat, and clobazam. Objective - Vital Signs Vital signs: Vital Signs Temp 99.1 F 09/10/20 07:15 Pulse 87 09/10/20 07:15 Resp 18 09/10/20 07:15 BP 138/74 09/10/20 07:15 Pulse Ox 99 09/10/20 07:15 Intake & Output 09/09/20 09/10/20 09/10/20 18:59 06:59 18:59 Output Total 1200 200 Balance -1200 -200 Output: Urine 200 200 Hemodialysis 1000 Other: Voiding Method External Catheter # Bowel Movements 1 1 - Constitutional General appearance: Present: cooperative - EENT Eyes: Present: PERRLA Ears: bilateral: normal - Neck Neck: Present: normal ROM Carotids: bilateral: upstroke normal Thyroid: bilateral: normal size - Respiratory Respiratory: bilateral: CTA (Anterior and posterior lung reich) - Cardiovascular Details: Normal sinus rhythm Heart rate: 78 Rhythm: regular Heart sounds: normal: S1, S2 - Peripheral pulses radial pulse Peripheral Pulses: bilateral: Normal dorsalis pedis Peripheral Pulses: bilateral: Normal - Gastrointestinal General gastrointestinal: Present: normal bowel sounds - Integumentary Integumentary: Present: normal turgor - Neurologic Neurologic: Present: CNII-XII intact - Musculoskeletal Musculoskeletal: Present: left sided weakness - Psychiatric Psychiatric: Present: A&O x's 3, appropriate affect, intact judgment & insight - Allied health notes Allied health notes reviewed: nursing - Labs CBC & Chem 7: 09/10/20 05:26 09/10/20 05:26 Labs: Abnormal Lab Results - Last 24 Hours (Table) 09/09/20 09/09/20 09/09/20 Range/Units 11:29 16:50 20:27 RBC (3.80-5.40) m/uL Hgb (11.4-16.0) gm/dL Hct (34.0-46.0) % BUN (7-17) mg/dL Creatinine (0.52-1.04) mg/dL POC Glucose (mg/dL) 399 H 170 H 165 H (75-99) mg/dL Phosphorus (2.5-4.5) mg/dL Albumin (3.5-5.0) g/dL 09/10/20 09/10/20 09/10/20 Range/Units 05:26 05:26 06:48 RBC 3.26 L (3.80-5.40) m/uL Hgb 10.0 L (11.4-16.0) gm/dL Hct 29.7 L (34.0-46.0) % BUN 28 H (7-17) mg/dL Creatinine 6.07 H (0.52-1.04) mg/dL POC Glucose (mg/dL) 114 H (75-99) mg/dL Phosphorus 5.4 H (2.5-4.5) mg/dL Albumin 3.4 L (3.5-5.0) g/dL Assessment and Plan Assessment: Seizure disordercontinue home medications; continue recommendations and treatment plan from neurology End-stage kidney disease dialysis dependent Mondaycontinue consultation with nephrology for recommendations and treatment plan History of CVA in the past with left-sided hemiparesis Diabetes mellitus type 2 Hypertension Hypothyroidism GERD Bipolar Diabetic neuropathy Continue home medications and recommendations from neurology for seizures Consultation with nephrology for management of dialysis Monday and Monday Continue medical management Hopeful discharge today Time with Patient: Greater than 30
[2020-09-10] MEDS: METOPROLOL TARTRATE 25 MG TAB PO SCH (09:21)
[2020-09-10] MEDS: LACOSAMIDE 150 MG TABLET PO SCH (09:21)
[2020-09-10] MEDS: ASPIRIN 81 MG PO SCH (09:21)
[2020-09-10] MEDS: CITALOPRAM HYDROBROMIDE 10 MG TAB PO SCH (09:21)
[2020-09-10] MEDS: amLODIPine 10 MG TAB PO SCH (09:22)
[2020-09-10] MEDS: levETIRAcetam 500 MG TAB PO SCH (09:22)
[2020-09-10] MEDS: CLOPIDOGREL 75 MG TAB PO SCH (09:22)
--- NOTE | 2020-09-10 10:37 | P.PN ---
Subjective Patient is seen in follow-up for end-stage renal disease. She is maintained on hemodialysis on Monday schedule. Mentation appears to be at baseline. No seizures yesterday her overnight. No problems with dialysis yesterday. Vital signs are stable. General: The patient appeared well nourished and normally developed. HEENT: Head exam is unremarkable. Neck is without jugular venous distension. LUNGS: Breath sounds decreased. HEART: Rate and Rhythm are regular. ABDOMEN: Soft, nontender. EXTREMITITES: No edema. Objective - Vital Signs Vital signs: Vital Signs Temp 99.1 F 09/10/20 07:15 Pulse 87 09/10/20 07:15 Resp 18 09/10/20 07:15 BP 138/74 09/10/20 07:15 Pulse Ox 99 09/10/20 07:15 Intake & Output 09/09/20 09/10/20 09/10/20 18:59 06:59 18:59 Output Total 1200 200 Balance -1200 -200 Output: Urine 200 200 Hemodialysis 1000 Other: Voiding Method External Catheter # Bowel Movements 1 1 - Labs CBC & Chem 7: 09/10/20 05:26 09/10/20 05:26 Labs: Abnormal Lab Results - Last 24 Hours (Table) 09/09/20 09/09/20 09/09/20 Range/Units 11:29 16:50 20:27 RBC (3.80-5.40) m/uL Hgb (11.4-16.0) gm/dL Hct (34.0-46.0) % BUN (7-17) mg/dL Creatinine (0.52-1.04) mg/dL POC Glucose (mg/dL) 399 H 170 H 165 H (75-99) mg/dL Phosphorus (2.5-4.5) mg/dL Albumin (3.5-5.0) g/dL 09/10/20 09/10/20 09/10/20 Range/Units 05:26 05:26 06:48 RBC 3.26 L (3.80-5.40) m/uL Hgb 10.0 L (11.4-16.0) gm/dL Hct 29.7 L (34.0-46.0) % BUN 28 H (7-17) mg/dL Creatinine 6.07 H (0.52-1.04) mg/dL POC Glucose (mg/dL) 114 H (75-99) mg/dL Phosphorus 5.4 H (2.5-4.5) mg/dL Albumin 3.4 L (3.5-5.0) g/dL Assessment and Plan Plan: Assessment: 1. End-stage renal disease maintained on hemodialysis on Monday schedule. 2. Seizure disorder. Neurology following. 3. Metabolic acidosis secondary to chronic kidney disease. Improved postdialysis. 4. Chronic kidney disease mineral bone disease maintained on Renvela. Phosphorus 5.4. 5. Diabetes mellitus. 6. Hypertension with chronic kidney disease. Stable. Plan: Hemodialysis tomorrow. Anticipate discharge soon.
[2020-09-10 11:29] LABS: Glucose,Whole Blood 185 mg/dL (75-99)
--- NOTE | 2020-09-10 13:49 | P.PN ---
Subjective Progress Note Date: 09/10/20 The patient was seen at bedside and the she stated that she's feeling about the same today as the last couple days. No further seizures witnessed by nursing staff or any episodes of unresponsiveness. Objective - Vital Signs Vital signs: Vital Signs Temp 99.1 F 09/10/20 07:15 Pulse 87 09/10/20 07:15 Resp 18 09/10/20 07:15 BP 138/74 09/10/20 07:15 Pulse Ox 99 09/10/20 07:15 Intake & Output 09/09/20 09/10/20 09/10/20 18:59 06:59 18:59 Output Total 1200 200 Balance -1200 -200 Output: Urine 200 200 Hemodialysis 1000 Other: Voiding Method External Catheter # Bowel Movements 1 1 - Exam GENERAL: The patient is lying in bed and is not in acute distress. Seems more fatigue today. NEUROLOGICAL: Higher mental function: The patient is awake, alert, oriented to self, place and time. Patient is following simple commands but at few times there is delay . No aphasia and no neglect. Cranial nerves: The pupils are round, equal and reactive to light and accommodation. Visual reich are full to confrontation throughout. Extraocular movement is intact no nystagmus is noted. Facial sensation is normal to touch throughout. The facial strength is normal throughout. Hearing is normal bilaterally to hand rub. Tongue is midline and moved [id number] without any difficulty. No dysarthria is noted. Motor: Gait is deferred. The strength is 4+ over left upper extremity and 3+ over the left lower extremity otherwise 5/5 over the right. . Sensation: Sensation is decreased over the left side to light touch. Reflexes (right/left): 3+ over the left side while 2+ over the right side. Plantars is upgoin over the left and mute over the right. - Labs CBC & Chem 7: 09/10/20 05:26 09/10/20 05:26 Labs: Abnormal Lab Results - Last 24 Hours (Table) 09/09/20 09/09/20 09/10/20 Range/Units 16:50 20:27 05:26 RBC 3.26 L (3.80-5.40) m/uL Hgb 10.0 L (11.4-16.0) gm/dL Hct 29.7 L (34.0-46.0) % BUN (7-17) mg/dL Creatinine (0.52-1.04) mg/dL POC Glucose (mg/dL) 170 H 165 H (75-99) mg/dL Phosphorus (2.5-4.5) mg/dL Albumin (3.5-5.0) g/dL 09/10/20 09/10/20 09/10/20 Range/Units 05:26 06:48 11:27 RBC (3.80-5.40) m/uL Hgb (11.4-16.0) gm/dL Hct (34.0-46.0) % BUN 28 H (7-17) mg/dL Creatinine 6.07 H (0.52-1.04) mg/dL POC Glucose (mg/dL) 114 H 185 H (75-99) mg/dL Phosphorus 5.4 H (2.5-4.5) mg/dL Albumin 3.4 L (3.5-5.0) g/dL Assessment and Plan Assessment: 50-year-old woman with history of epilepsy, status post VNS that presents for break-through seizure on 09/04/2020 then was discharged and presents back on 09/06/2020 for seizure. Long-standing history of epilepsy, with a breakthrough seizure History of CVA with left hemiparesis End-stage renal disease on hemodialysis Diabetes Hypertension Plan: * I decreased Keppra from 1000mg to 500mg 1 tab bid with post dialysis 500mg (M,W,F) since it seems high dose for ESRD and this was verfied with inpatient pharmacy as well (was modified on 09/07/20 by myself). * Continue 150mg 1 tab bid (increased from 100mg 1 tab bid) with post dialysis 100mg (M,W,F) * To continue home dose Clobazam 20mg 1 tab bid (we don't have medication inpatient. I asked the nurse to contact the patient's to see if he can get her Clobazam medication to the hospital. * Per the patient he stated that the what ever the bottles that the the patient came in with R the medication she is on. Upon checking her bag mentioned that she is on Keppra 1 THOUSAND milligrams 1 tablet twice a day other than that there is no other seizure medication at. Upon asking the patient's the patient's if she was on Vimpat he stated yes and said she is on 100 mg 1 tablet twice a day and upon asking her if she was on clobazam he said yes but he didn't know the dose. I felt the patient the does not know exactly what the patient's medication or and her doses are not sure of the patient was missing any medications at home or not. * Keppra level is 40 (therapeutic) on 09-06-20 * An EEG is not warranted since patient is back to baseline and has known history of epilepsy and had EEG in our facility in past. * Continue seizure pre-caution. * Continue Plavix 75 mg daily and Lipitor 20 mg a daily for stroke prophylaxis. * Of note I contacted [facility] neurology Department on 09/08/20 and I spoke with a programmer analyst regarding the the patient and they stated that the patient was seen in the hospital in April 2020 and the last time the patient is seen in the office was in January 2020. On her last hospital visit in April 2020 she was the discharged on Vimpat 100 mg 1 tablet twice a day, Keppra 500 mg 1 tablet twice a day with an additional dose of 500 mg after dialysis on Monday was in Monday and on for the 20 mg 1 tablet twice a day. It is a possibility that the patient had an increase of medication that was directly sent to the pharmacy. * Patient to follow-up with her neurologist within a week as outpatient ( Dr. Jr escobar at [facility]). No further neurological work-up. The plan was discussed with the patient's nurse. Cristhian Luevano MD Neuro-Hospitalist. Time with Patient: Less than 30
--- NOTE | 2020-09-10 14:24 | P.DS ---
Providers Date of admission: 09/08/20 17:38 Expected date of discharge: 09/10/20 Attending physician: Geoffrey Somers Consults: 09/06/20 23:57 Consult Physician Routine Consulting Provider: Kate Daniel Consult Reason/Comments: Seizures, prolonged post-ictal state Do you want consulting provider notified?: Yes Consult Physician Routine Consulting Provider: Urszula Ludwig Consult Reason/Comments: Dialysis Do you want consulting provider notified?: Yes Primary care physician: Geoffrey Somers Hospital Course: 50-year-old female was admitted to the hospital for recurrent seizures patient received antiepileptics and benzodiazepines for breakthrough seizures in the emergency department. Consultation with neurology regarding seizures and comorbidity of kidney failure with dialysis adjustments to antiepileptics have been made per neurology's recommendations. Patient was at neurological baseline and discharge, able to ambulate with two assist. Patient underwent two rounds of dialysis on Monday and Monday with improvement of BUN and creatinine. Patient discharged with guarded prognosis to follow up with primary care one to two days, neurology within one to two weeks, and nephrology within one week. Assessment: Seizures history of chest pain/angina history of CVA/TIA left-sided weakness diabetes mellitus type II [id number] hypertension end-stage renal failure dialysis Monday hypothyroidism bipolar disorder diabetic neuropathy drop foot left former smoker full code Health Concerns: Neurological baseline noncompliance with medication therapy Pertinent Studies: Serial chest x-rays no acute changes Procedures: None noted Patient Condition at Discharge: Serious Plan - Discharge Summary Discharge Rx Participant: Yes New Discharge Prescriptions: New levETIRAcetam [Keppra] 1,000 mg PO BID tab levETIRAcetam [Keppra] 1,000 mg PO MoWeFr tab Lacosamide [Vimpat] 100 mg PO MoWeFr #20 tablet Lacosamide [Vimpat] 150 mg PO BID #60 tablet Continue Insulin Glargine [Lantus] 12 unit SQ HS INSULIN LISPRO (humaLOG) [humaLOG] See Protocol SQ ACHS Aspirin [Adult Low Dose Aspirin EC] 81 mg PO DAILY #30 tablet. Pantoprazole [Protonix] 40 mg PO AC-BRKFST #30 tablet. Citalopram Hydrobromide [CeleXA] 10 mg PO DAILY #30 tab Atorvastatin [Lipitor] 20 mg PO DAILY #30 tab Metoprolol Tartrate 25 mg PO BID #60 tab amLODIPine [Norvasc] 10 mg PO DAILY #30 tab Clopidogrel [Plavix] 75 mg PO DAILY #30 tab Sevelamer [Renvela] 800 mg PO AC-TID #90 tab cloBAZam [Clobazam] 20 mg PO BID Discontinued Lacosamide [Vimpat] 100 mg PO DIRECTED levETIRAcetam [Keppra] 1,000 mg PO BID #60 tab Discharge Medication List Insulin Glargine [Lantus] 12 unit SQ HS 12/26/19 [History] INSULIN LISPRO (humaLOG) [humaLOG] See Protocol SQ ACHS 09/04/20 [History] Aspirin [Adult Low Dose Aspirin EC] 81 mg PO DAILY #30 tablet. 09/05/20 [Rx] Atorvastatin [Lipitor] 20 mg PO DAILY #30 tab 09/05/20 [Rx] Citalopram Hydrobromide [CeleXA] 10 mg PO DAILY #30 tab 09/05/20 [Rx] Clopidogrel [Plavix] 75 mg PO DAILY #30 tab 09/05/20 [Rx] Metoprolol Tartrate 25 mg PO BID #60 tab 09/05/20 [Rx] Pantoprazole [Protonix] 40 mg PO AC-BRKFST #30 tablet. 09/05/20 [Rx] Sevelamer [Renvela] 800 mg PO AC-TID #90 tab 09/05/20 [Rx] amLODIPine [Norvasc] 10 mg PO DAILY #30 tab 09/05/20 [Rx] cloBAZam [Clobazam] 20 mg PO BID 09/07/20 [History] Lacosamide [Vimpat] 100 mg PO MoWeFr #20 tablet 09/08/20 [Rx] Lacosamide [Vimpat] 150 mg PO BID #60 tablet 09/08/20 [Rx] levETIRAcetam [Keppra] 1,000 mg PO BID tab 09/08/20 [Rx] levETIRAcetam [Keppra] 1,000 mg PO MoWeFr tab 09/08/20 [Rx] Follow up Appointment(s)/Referral(s): Geoffrey Somers MD [Primary Care Provider] - 09/14/20 1:00 pm (with [facility]) Patient Instructions/Handouts: Dialysis Diet (DC), Recurrent Seizures in Adults (DC), End Stage Kidney Disease (DC), Hemodialysis (DC) Discharge Disposition: HOME SELF-CARE
== END 2020-09-10 16:07 | disposition home or self-care (01) | DRG 100 ==
LOC: EC 18:59 → 4SSUR 09-07 01:26 → OBSVTOIN 09-08 17:38 → 4SSUR 09-09 17:47
PROVIDERS: ADMIT Family Medicine; ATTEND Family Medicine
PROC: 5A1D70Z Performance of Urinary Filtration, Intermittent, Less than 6 Hours Per Day (ICD-10-PCS; principal; 2020-09-07)
DX: G40.909 Epilepsy, unspecified, not intractable, without status epilepticus (principal); N18.6 End stage renal disease; I69.354 Hemiplegia and hemiparesis following cerebral infarction affecting left non-dominant side; E87.2 Acidosis; I12.0 Hypertensive chronic kidney disease with stage 5 chronic kidney disease or end stage renal disease; E83.9 Disorder of mineral metabolism, unspecified; E11.22 Type 2 diabetes mellitus with diabetic chronic kidney disease; E11.40 Type 2 diabetes mellitus with diabetic neuropathy, unspecified; Z99.2 Dependence on renal dialysis; F31.9 Bipolar disorder, unspecified; Z79.4 Long term (current) use of insulin; Z20.822 Contact with and (suspected) exposure to COVID-19; K21.9 Gastro-esophageal reflux disease without esophagitis; E03.9 Hypothyroidism, unspecified; M21.372 Foot drop, left foot; R53.81 Other malaise; H02.401 Unspecified ptosis of right eyelid; T50.906A Underdosing of unspecified drugs, medicaments and biological substances, initial encounter; Z91.128 Patient's intentional underdosing of medication regimen for other reason; Z79.82 Long term (current) use of aspirin; Z79.02 Long term (current) use of antithrombotics/antiplatelets; Z79.899 Other long term (current) drug therapy; Z87.891 Personal history of nicotine dependence; Z98.891 History of uterine scar from previous surgery; Z90.89 Acquired absence of other organs; Z96.82 Presence of neurostimulator; Z88.0 Allergy status to penicillin; W18.30XA Fall on same level, unspecified, initial encounter
CPT/HCPCS: 36415; 51701; 71045; 71046; 80053; 80177; 81001; 83036; 83735; 84100; 85025; 87635; 90935; 93005; 96361; 96374; 99285

== ENCOUNTER 2020-10-29 05:41 | Emergency (ER) | payer MEDICARE, OTHER ==
[2020-10-29] MEDS ORDERED: SODIUM CHLORIDE 0.9% 1,000 ML IV STA (06:09)
[2020-10-29] MEDS ORDERED: TRIMETHOBENZAMIDE 100 MG/ML 2 ML VIAL IM STA (06:25)
--- NOTE | 2020-10-29 06:27 | ED ---
Seizure HPI - General Chief Complaint: Seizure Stated Complaint: Seizure Time Seen by Provider: 10/29/20 06:07 Source: patient, EMS Mode of arrival: EMS Limitations: no limitations - History of Present Illness Initial Comments: 50-year-old female with hx of CKD (MWF dialysis) and epilepsy presenting to the emergency department with a chief complaint of seizure. I spoke with the patient's over the phone. States the patient has been vomiting since Monday and supposedly had 2 seizures earlier this morning. states that he noticed second seizure where she made "seizure like sounds" while they were sleeping in bed. Afterwards the patient developed tonic-clonic movements in bilateral upper and lower extremities. states this lasted for approximately 10 seconds followed by postictal state. States that he took her to another emergency department several days ago for evaluation and she was discharged home. - Related Data Home Medications Medication Instructions Recorded Confirmed Insulin Glargine [Lantus] 12 unit SQ HS 12/26/19 09/06/20 INSULIN LISPRO (humaLOG) [humaLOG] See Protocol SQ ACHS 09/04/20 09/06/20 cloBAZam [Clobazam] 20 mg PO BID 09/07/20 09/07/20 Previous Rx's Medication Instructions Recorded Aspirin [Adult Low Dose Aspirin EC] 81 mg PO DAILY #30 tablet. 09/05/20 Atorvastatin [Lipitor] 20 mg PO DAILY #30 tab 09/05/20 Citalopram Hydrobromide [CeleXA] 10 mg PO DAILY #30 tab 09/05/20 Clopidogrel [Plavix] 75 mg PO DAILY #30 tab 09/05/20 Metoprolol Tartrate 25 mg PO BID #60 tab 09/05/20 Pantoprazole [Protonix] 40 mg PO AC-BRKFST #30 tablet. 09/05/20 Sevelamer [Renvela] 800 mg PO AC-TID #90 tab 09/05/20 amLODIPine [Norvasc] 10 mg PO DAILY #30 tab 09/05/20 Lacosamide [Vimpat] 100 mg PO MoWeFr #20 tablet 09/08/20 Lacosamide [Vimpat] 150 mg PO BID #60 tablet 09/08/20 levETIRAcetam [Keppra] 1,000 mg PO BID tab 09/08/20 levETIRAcetam [Keppra] 1,000 mg PO MoWeFr tab 09/08/20 Allergies Allergy/AdvReac Type Severity Reaction Status Date / Time Penicillins Allergy Itching Verified 10/29/20 05:56 Review of Systems ROS Statement: Those systems with pertinent positive or pertinent negative responses have been documented in the HPI. ROS Other: All systems not noted in ROS Statement are negative. Past Medical History Past Medical History: Chest Pain / Angina, CVA/TIA, Diabetes Mellitus, Hypertension, Renal Disease, Seizure Disorder, Thyroid Disorder Additional Past Medical History / Comment(s): Dialysis, bipolar, neuropathy, baseline orientation to person/place, drop foot left, only able to walk short distances with walker or wheelchair History of Any Multi-Drug Resistant Organisms: None Reported Past Surgical History: Section, Tonsillectomy Additional Past Surgical History / Comment(s): left arm fistula, loop recorder, vagus nerve stimulator Past Anesthesia/Blood Transfusion Reactions: No Reported Reaction Past Psychological History: Bipolar Smoking Status: Former smoker Past Alcohol Use History: Occasional Past Drug Use History: None Reported - Past Family History Father Family Medical History: Unable to Obtain Additional Family Medical History / Comment(s): adopted General Exam Limitations: no limitations General appearance: alert, in no apparent distress Head exam: Present: atraumatic, normocephalic, normal inspection Eye exam: Present: normal appearance, PERRL, EOMI Pupils: Present: normal accommodation ENT exam: Present: normal exam, normal oropharynx (Biting noted on the lateral aspect of the tongue), mucous membranes moist, TM's normal bilaterally, normal external ear exam Neck exam: Present: normal inspection, full ROM. Absent: tenderness Respiratory exam: Present: normal lung sounds bilaterally. Absent: respiratory distress Cardiovascular Exam: Present: regular rate, normal rhythm, normal heart sounds GI/Abdominal exam: Present: soft. Absent: distended, tenderness, guarding, rebound Extremities exam: Present: normal inspection, full ROM, normal capillary refill. Absent: tenderness Back exam: Present: normal inspection, full ROM. Absent: tenderness, CVA tenderness (R), CVA tenderness (L) Neurological exam: Present: alert, oriented X3, normal gait Psychiatric exam: Present: normal affect, normal mood Skin exam: Present: warm, dry, intact, normal color Course Vital Signs 10/29/20 05:53 Temperature 98.7 F Pulse Rate 87 Respiratory 18 Rate Blood Pressure 174/110 O2 Sat by Pulse 98 Oximetry Medical Decision Making - Medical Decision Making 50-year-old female with history of epilepsy presents to emergency Department with a chief complaint of a seizure. On physical examination, patient is still able to answer questions. Initially spoke with the then he also came to the emergency department. There was some biting of the tongue noted likely suggesting an actual seizure. She also had an elevated lactic of 2.2. CBC unremarkable. CMP reveals a creatinine level of 5.22. Patient has chronic kidney disease and goes to dialysis Monday. Electrodes are within normal limits. Patient was given antiemetics and IV fluids in the emergency department. Patient has been evaluated multiple times in this emergency department. According to the , the patient has a neurologist out of [facility] in [place]. He states they're currently trying to see him for evaluation. At this time patient can be discharged home. Case discussed with Dr. Horne. - Lab Data Result diagrams: 10/29/20 06:40 10/29/20 06:40 Lab Results 10/29/20 10/29/20 10/29/20 Range/Units 06:26 06:40 06:40 WBC 6.7 (3.8-10.6) k/uL RBC 4.01 (3.80-5.40) m/uL Hgb 12.2 (11.4-16.0) gm/dL Hct 35.2 (34.0-46.0) % MCV 87.7 (80.0-100.0) fL MCH 30.3 (25.0-35.0) pg MCHC 34.6 (31.0-37.0) g/dL RDW 14.6 (11.5-15.5) % Plt Count 260 (150-450) k/uL MPV 8.5 Neutrophils % 74 % Lymphocytes % 17 % Monocytes % 7 % Eosinophils % 1 % Basophils % 1 % Neutrophils # 5.0 (1.3-7.7) k/uL Lymphocytes # 1.1 (1.0-4.8) k/uL Monocytes # 0.4 (0-1.0) k/uL Eosinophils # 0.1 (0-0.7) k/uL Basophils # 0.0 (0-0.2) k/uL Sodium 134 L (137-145) mmol/L Potassium 3.9 (3.5-5.1) mmol/L Chloride 93 L (98-107) mmol/L Carbon Dioxide 29 (22-30) mmol/L Anion Gap 12 mmol/L BUN 14 (7-17) mg/dL Creatinine 5.22 H (0.52-1.04) mg/dL Est GFR (CKD-EPI)AfAm 10 (>60 ml/min/1.73 sqM) Est GFR (CKD-EPI)NonAf 9 (>60 ml/min/1.73 sqM) Glucose 168 H (74-99) mg/dL POC Glucose (mg/dL) 170 H (75-99) mg/dL POC Glu Order Worker ID Melany Arauz Plasma Lactic Acid Shen (0.7-2.0) mmol/L Calcium 9.8 (8.4-10.2) mg/dL Phosphorus 3.9 (2.5-4.5) mg/dL Magnesium 2.1 (1.6-2.3) mg/dL Total Bilirubin 0.7 (0.2-1.3) mg/dL AST 26 (14-36) U/L ALT 13 (4-34) U/L Alkaline Phosphatase 122 (38-126) U/L Total Protein 7.2 (6.3-8.2) g/dL Albumin 4.3 (3.5-5.0) g/dL 10/29/20 Range/Units 06:40 WBC (3.8-10.6) k/uL RBC (3.80-5.40) m/uL Hgb (11.4-16.0) gm/dL Hct (34.0-46.0) % MCV (80.0-100.0) fL MCH (25.0-35.0) pg MCHC (31.0-37.0) g/dL RDW (11.5-15.5) % Plt Count (150-450) k/uL MPV Neutrophils % % Lymphocytes % % Monocytes % % Eosinophils % % Basophils % % Neutrophils # (1.3-7.7) k/uL Lymphocytes # (1.0-4.8) k/uL Monocytes # (0-1.0) k/uL Eosinophils # (0-0.7) k/uL Basophils # (0-0.2) k/uL Sodium (137-145) mmol/L Potassium (3.5-5.1) mmol/L Chloride (98-107) mmol/L Carbon Dioxide (22-30) mmol/L Anion Gap mmol/L BUN (7-17) mg/dL Creatinine (0.52-1.04) mg/dL Est GFR (CKD-EPI)AfAm (>60 ml/min/1.73 sqM) Est GFR (CKD-EPI)NonAf (>60 ml/min/1.73 sqM) Glucose (74-99) mg/dL POC Glucose (mg/dL) (75-99) mg/dL POC Glu Order Worker ID Plasma Lactic Acid Shen 2.2 H* (0.7-2.0) mmol/L Calcium (8.4-10.2) mg/dL Phosphorus (2.5-4.5) mg/dL Magnesium (1.6-2.3) mg/dL Total Bilirubin (0.2-1.3) mg/dL AST (14-36) U/L ALT (4-34) U/L Alkaline Phosphatase (38-126) U/L Total Protein (6.3-8.2) g/dL Albumin (3.5-5.0) g/dL Disposition Clinical Impression: Seizure Disposition: HOME SELF-CARE Condition: Stable Instructions (If sedation given, give patient instructions): Recurrent Seizures in Adults (ED) Additional Instructions: Follow-up with the neurologist. Return to emergency department if symptoms worsen. Is patient prescribed a controlled substance at d/c from ED?: No Referrals: Geoffrey Somers MD [Primary Care Provider] - 1-2 days Time of Disposition: 08:44
[2020-10-29 06:29] LABS: Glucose,Whole Blood 170 mg/dL (75-99)
[2020-10-29 07:07] LABS: Basophils % (A) 1 %; Eosinophils # (A) 0.1 k/uL (0-0.7); Eosinophils % (A) 1 %; HCT 35.2 % (34.0-46.0); HGB 12.2 gm/dL (11.4-16.0); Lymphocytes # (A) 1.1 k/uL (1.0-4.8); Lymphocytes % (A) 17 %; MCH 30.3 pg (25.0-35.0); MCHC 34.6 g/dL (31.0-37.0); MCV 87.7 fL (80.0-100.0); Mean Platelet Volume 8.5; Monocytes # (A) 0.4 k/uL (0-1.0); Monocytes % (A) 7 %; Neutrophils % (A) 74 %; Platelet Count 260 k/uL (150-450); RBC 4.01 m/uL (3.80-5.40); RDW 14.6 % (11.5-15.5); WBC 6.7 k/uL (3.8-10.6)
[2020-10-29 07:17] LABS: Albumin 4.3 g/dL (3.5-5.0); Calcium 9.8 mg/dL (8.4-10.2); Magnesium 2.1 mg/dL (1.6-2.3); Phosphorus 3.9 mg/dL (2.5-4.5); Potassium 3.9 mmol/L (3.5-5.1); Total Bilirubin 0.7 mg/dL (0.2-1.3); Total Protein 7.2 g/dL (6.3-8.2)
[2020-10-29] MEDS ORDERED: LORazepam 2 MG/ML INJ IV STA (07:47)
[2020-10-29] MEDS ORDERED: ONDANSETRON 4 MG/2 ML VIAL IVP STA (07:47)
[2020-10-29 09:07] VITALS: BP 135/64; PULSE 88; RESP 19; TEMP 98.2
== END 2020-10-29 09:07 | disposition home or self-care (01) ==
LOC: EC 05:41
DX: G40.909 Epilepsy, unspecified, not intractable, without status epilepticus (principal); R74.02 Elevation of levels of lactic acid dehydrogenase [LDH]; E11.22 Type 2 diabetes mellitus with diabetic chronic kidney disease; I12.9 Hypertensive chronic kidney disease with stage 1 through stage 4 chronic kidney disease, or unspecified chronic kidney disease; N18.9 Chronic kidney disease, unspecified; E11.40 Type 2 diabetes mellitus with diabetic neuropathy, unspecified; Z99.2 Dependence on renal dialysis; F31.9 Bipolar disorder, unspecified; Z79.899 Other long term (current) drug therapy; Z87.891 Personal history of nicotine dependence; Z88.0 Allergy status to penicillin; Z79.4 Long term (current) use of insulin; Z86.73 Personal history of transient ischemic attack (TIA), and cerebral infarction without residual deficits
CPT/HCPCS: 36415; 93005; 80053; 80177; 83605; 83735; 84100; 85025; 96374; 96375; 96372; 96361 ×2; 99284; J2060; J3250; J2405

== ENCOUNTER 2020-12-30 14:10 | Emergency (ER) | payer OTHER ==
[2020-12-30] MEDS ORDERED: levETIRAcetam IV 500 MG in SODIUM CHLORIDE 0.9% 100 ML IVPB STA (14:16)
--- NOTE | 2020-12-30 14:46 | ED ---
General Adult HPI - General Chief complaint: Seizure Stated complaint: Seizure Time Seen by Provider: 12/30/20 14:35 Source: patient, EMS, RN notes reviewed, old records reviewed Mode of arrival: EMS Limitations: physical limitation - History of Present Illness Initial comments: This is a 50-year-old female presents emergency department after having had a seizure while she was being dialyzed. Patient states that this is occurred multiple times in the past. Patient denies having taken her Keppra she usually waits until after dialysis. Patient has no current complaints. Patient denies any fever chills or cough per patient denies chest pain palpitations difficulty breathing shortness of breath. Patient denies any abdominal pain patient denies nausea vomiting diarrhea. According to EMS reports the seizure was only a couple minutes long and then after that she was post ictal. - Related Data Home Medications Medication Instructions Recorded Confirmed Insulin Glargine [Lantus] 12 unit SQ HS 12/26/19 09/06/20 INSULIN LISPRO (humaLOG) [humaLOG] See Protocol SQ ACHS 09/04/20 09/06/20 cloBAZam [Clobazam] 20 mg PO BID 09/07/20 09/07/20 Previous Rx's Medication Instructions Recorded Aspirin [Adult Low Dose Aspirin EC] 81 mg PO DAILY #30 tablet. 09/05/20 Atorvastatin [Lipitor] 20 mg PO DAILY #30 tab 09/05/20 Citalopram Hydrobromide [CeleXA] 10 mg PO DAILY #30 tab 09/05/20 Clopidogrel [Plavix] 75 mg PO DAILY #30 tab 09/05/20 Metoprolol Tartrate 25 mg PO BID #60 tab 09/05/20 Pantoprazole [Protonix] 40 mg PO AC-BRKFST #30 tablet. 09/05/20 Sevelamer [Renvela] 800 mg PO AC-TID #90 tab 09/05/20 amLODIPine [Norvasc] 10 mg PO DAILY #30 tab 09/05/20 Lacosamide [Vimpat] 100 mg PO MoWeFr #20 tablet 09/08/20 Lacosamide [Vimpat] 150 mg PO BID #60 tablet 09/08/20 levETIRAcetam [Keppra] 1,000 mg PO BID tab 09/08/20 levETIRAcetam [Keppra] 1,000 mg PO MoWeFr tab 09/08/20 Allergies Allergy/AdvReac Type Severity Reaction Status Date / Time Penicillins Allergy Itching Verified 12/30/20 14:42 Review of Systems ROS Statement: Those systems with pertinent positive or pertinent negative responses have been documented in the HPI. ROS Other: All systems not noted in ROS Statement are negative. Past Medical History Past Medical History: Chest Pain / Angina, CVA/TIA, Diabetes Mellitus, Hypertension, Renal Disease, Seizure Disorder, Thyroid Disorder Additional Past Medical History / Comment(s): Dialysis, bipolar, neuropathy, baseline orientation to person/place, drop foot left, only able to walk short distances with walker or wheelchair History of Any Multi-Drug Resistant Organisms: None Reported Past Surgical History: Section, Tonsillectomy Additional Past Surgical History / Comment(s): left arm fistula, loop recorder, vagus nerve stimulator Past Anesthesia/Blood Transfusion Reactions: No Reported Reaction Past Psychological History: Bipolar Smoking Status: Former smoker Past Alcohol Use History: Occasional Past Drug Use History: None Reported - Past Family History Father Family Medical History: Unable to Obtain Additional Family Medical History / Comment(s): adopted General Exam - General Exam Comments Initial Comments: GENERAL: Patient is well-developed and well-nourished. Patient is nontoxic and well- hydrated and is in no acute distress. ENT: Neck is soft and supple. No significant lymphadenopathy is noted. Oropharynx is clear. Moist mucous membranes. Neck has full range of motion without eliciting any pain. EYES: The sclera were anicteric and conjunctiva were pink and moist. Extraocular movements were intact and pupils were equal round and reactive to light. Eyelids were unremarkable. PULMONARY: Unlabored respirations. Good breath sounds bilaterally. No audible rales rhonchi or wheezing was noted. CARDIOVASCULAR: There is a regular rate and rhythm without any murmurs gallops or rubs. ABDOMEN: Soft and nontender with normal bowel sounds. SKIN: Skin is clear with no lesions or rashes and otherwise unremarkable. NEUROLOGIC: Patient was initially slow to respond but shortly thereafter she was much improved. Patient is alert and oriented x3. Cranial nerves II through XII are grossly intact. Motor and sensory are also intact. Normal speech, volume and content. Symmetrical smile. MUSCULOSKELETAL: Normal extremities with adequate strength and full range of motion. LYMPHATICS: No significant lymphadenopathy is noted PSYCHIATRIC: Normal psychiatric evaluation. Limitations: physical limitation Course Vital Signs 12/30/20 12/30/20 12/30/20 14:34 14:41 15:41 Temperature 98 F Pulse Rate 86 85 95 Respiratory 18 18 20 Rate Blood Pressure 132/79 137/84 142/84 O2 Sat by Pulse 100 99 97 Oximetry 12/30/20 16:00 Temperature Pulse Rate 89 Respiratory 18 Rate Blood Pressure 143/81 O2 Sat by Pulse 95 Oximetry Medical Decision Making - Medical Decision Making EKG shows normal sinus rhythm at 80 bpm CO interval 288 QRS is 90 QT interval is 424 QTC is 513. Patient's EKG shows no ST segment elevation or depression. Patient had one seizure in the emergency department received Ativan IM. Patient was also loaded with Keppra 500 mg. Patient was postictal for a while but was able to get up and walk around eventually and felt back to her baseline and safe to go home. With the PA for Dr. Somers and he was in agreement to follow are palpation. - Lab Data Result diagrams: 12/30/20 14:59 12/30/20 14:59 Lab Results 12/30/20 12/30/20 Range/Units 14:59 14:59 WBC 6.4 (3.8-10.6) k/uL RBC 4.32 (3.80-5.40) m/uL Hgb 12.4 (11.4-16.0) gm/dL Hct 36.4 (34.0-46.0) % MCV 84.3 (80.0-100.0) fL MCH 28.7 (25.0-35.0) pg MCHC 34.0 (31.0-37.0) g/dL RDW 14.0 (11.5-15.5) % Plt Count 213 (150-450) k/uL MPV 9.4 Neutrophils % 68 % Lymphocytes % 24 % Monocytes % 5 % Eosinophils % 2 % Basophils % 1 % Neutrophils # 4.4 (1.3-7.7) k/uL Lymphocytes # 1.5 (1.0-4.8) k/uL Monocytes # 0.3 (0-1.0) k/uL Eosinophils # 0.1 (0-0.7) k/uL Basophils # 0.1 (0-0.2) k/uL Sodium 137 (137-145) mmol/L Potassium 3.9 (3.5-5.1) mmol/L Chloride 95 L (98-107) mmol/L Carbon Dioxide 30 (22-30) mmol/L Anion Gap 12 mmol/L BUN 16 (7-17) mg/dL Creatinine 3.94 H (0.52-1.04) mg/dL Est GFR (CKD-EPI)AfAm 14 (>60 ml/min/1.73 sqM) Est GFR (CKD-EPI)NonAf 12 (>60 ml/min/1.73 sqM) Glucose 164 H (74-99) mg/dL Calcium 9.4 (8.4-10.2) mg/dL Magnesium 2.0 (1.6-2.3) mg/dL Total Bilirubin 0.8 (0.2-1.3) mg/dL AST 35 (14-36) U/L ALT 20 (4-34) U/L Alkaline Phosphatase 115 (38-126) U/L Total Protein 7.5 (6.3-8.2) g/dL Albumin 4.5 (3.5-5.0) g/dL Disposition Clinical Impression: Generalized seizure Disposition: HOME SELF-CARE Instructions (If sedation given, give patient instructions): Seizure/Epilepsy Discharge Instructions & Follow-Up Additional Instructions: Patient should take her medications as prescribed Is patient prescribed a controlled substance at d/c from ED?: No Referrals: Geoffrey Somers MD [Primary Care Provider] - 1-2 days Time of Disposition: 18:17
[2020-12-30 15:12] LABS: Basophils # (A) 0.1 k/uL (0-0.2); Basophils % (A) 1 %; Eosinophils # (A) 0.1 k/uL (0-0.7); Eosinophils % (A) 2 %; HCT 36.4 % (34.0-46.0); HGB 12.4 gm/dL (11.4-16.0); Lymphocytes # (A) 1.5 k/uL (1.0-4.8); Lymphocytes % (A) 24 %; MCH 28.7 pg (25.0-35.0); MCV 84.3 fL (80.0-100.0); Mean Platelet Volume 9.4; Monocytes # (A) 0.3 k/uL (0-1.0); Monocytes % (A) 5 %; Neutrophils # (A) 4.4 k/uL (1.3-7.7); Neutrophils % (A) 68 %; Platelet Count 213 k/uL (150-450); RBC 4.32 m/uL (3.80-5.40); WBC 6.4 k/uL (3.8-10.6)
[2020-12-30] MEDS ORDERED: LORazepam 2 MG/ML INJ IV STA (15:25)
[2020-12-30 15:31] LABS: Albumin 4.5 g/dL (3.5-5.0); Calcium 9.4 mg/dL (8.4-10.2); Total Bilirubin 0.8 mg/dL (0.2-1.3); Total Protein 7.5 g/dL (6.3-8.2)
[2020-12-30] MEDS ORDERED: LORazepam 2 MG/ML INJ IM STA (15:32)
[2020-12-30 15:36] LABS: Potassium 3.9 mmol/L (3.5-5.1)
[2020-12-30 16:15] VITALS: RESP 18
[2020-12-30 19:12] VITALS: BP 158/93; PULSE 76; TEMP 98.1
== END 2020-12-30 19:09 | disposition home or self-care (01) ==
LOC: EC 14:10
DX: G40.909 Epilepsy, unspecified, not intractable, without status epilepticus (principal); I10 Essential (primary) hypertension; E11.40 Type 2 diabetes mellitus with diabetic neuropathy, unspecified; F31.9 Bipolar disorder, unspecified; Z86.73 Personal history of transient ischemic attack (TIA), and cerebral infarction without residual deficits; Z87.891 Personal history of nicotine dependence; Z79.82 Long term (current) use of aspirin; Z79.4 Long term (current) use of insulin; Z79.899 Other long term (current) drug therapy; Z88.0 Allergy status to penicillin
CPT/HCPCS: 36415; 93005; 80053; 80177; 83735; 85025; 99284; 96374; 96372; J2060; J1953

== ENCOUNTER 2021-03-23 12:40 | Emergency (ER) | payer MEDICARE, OTHER ==
[2021-03-23] MEDS ORDERED: ASPIRIN 81 MG PO STA (13:28)
--- NOTE | 2021-03-23 14:02 | ED ---
General Adult HPI - General Chief complaint: Chest Pain Stated complaint: chest pain Time Seen by Provider: 03/23/21 12:43 Source: patient, RN notes reviewed, old records reviewed Mode of arrival: ambulatory - History of Present Illness Initial comments: Patient is a 51-year-old female with past medical history remarkable for angina, ESRD on hemodialysis Monday, Monday, Monday day who missed her Monday appointment, prior CVA with residual left-sided weakness, hypertension, diabetes, thyroid disorder with a left arm AV fistula complaining of one-day history of substernal chest pain. She states it began while she was sitting in a chair. It is achy in nature. She denies any dyspnea, abdominal pain, nausea, vomiting. She denies any headache, new onset weakness, numbness. She denies any fevers, chills, cough. She denies any sick contacts. She endorses no acute 0.7, chest pain which has been more or less the same since yesterday. When asked if this is typical for anginal pain, she is unable to answer as she is uncertain. She denies any illicit drug use. She denies any alcohol use. - Related Data Home Medications Medication Instructions Recorded Confirmed Atorvastatin [Lipitor] 40 mg PO DAILY 03/23/21 03/23/21 Dulaglutide [Trulicity] 3 mg SQ MO 03/23/21 03/23/21 Ergocalciferol [Vitamin D2 (1250 1,250 mcg PO TU 03/23/21 03/23/21 Mcg = 07453 Iu)] Lacosamide [Vimpat] 150 mg PO MOWETH@07,12,03/23/21 03/23/21 Lacosamide [Vimpat] 150 mg PO SUTUFRSA@0700,1900 03/23/21 03/23/21 Metoprolol Succinate (ER) [Toprol 25 mg PO DAILY 03/23/21 03/23/21 Xl] Sevelamer [Renvela] 1,600 mg PO AC-TID 03/23/21 03/23/21 Vascepa 1gm 2 gm PO BID 03/23/21 03/23/21 levETIRAcetam [Keppra] 750 mg PO MOWETH@07,12,03/23/21 03/23/21 levETIRAcetam [Keppra] 750 mg PO NAIF@0700,1900 03/23/21 03/23/21 Previous Rx's Medication Instructions Recorded Citalopram Hydrobromide [CeleXA] 10 mg PO DAILY #30 tab 09/05/20 Clopidogrel [Plavix] 75 mg PO DAILY #30 tab 09/05/20 amLODIPine [Norvasc] 10 mg PO DAILY #30 tab 09/05/20 Allergies Allergy/AdvReac Type Severity Reaction Status Date / Time Penicillins Allergy Itching Verified 03/23/21 13:55 Review of Systems ROS Statement: Those systems with pertinent positive or pertinent negative responses have been documented in the HPI. Review of Systems: CONST: Denies fever EYES: Denies blurry vision ENT: Denies nasal congestion C/V: Endorses chest pain RESP: Denies shortness of breath GI: Denies abdominal pain : States she still produces urine. SKIN: Denies rash. MSK: Denies joint pain. NEURO: Denies headache ROS Other: All systems not noted in ROS Statement are negative. Past Medical History Past Medical History: Chest Pain / Angina, CVA/TIA, Diabetes Mellitus, Hypertension, Renal Disease, Seizure Disorder, Thyroid Disorder Additional Past Medical History / Comment(s): Dialysis, bipolar, neuropathy, baseline orientation to person/place, drop foot left, only able to walk short distances with walker or wheelchair History of Any Multi-Drug Resistant Organisms: None Reported Past Surgical History: Section, Tonsillectomy Additional Past Surgical History / Comment(s): left arm fistula, loop recorder, vagus nerve stimulator Past Anesthesia/Blood Transfusion Reactions: No Reported Reaction Past Psychological History: Bipolar Smoking Status: Former smoker Past Alcohol Use History: Occasional Past Drug Use History: None Reported - Past Family History Father Family Medical History: Unable to Obtain Additional Family Medical History / Comment(s): adopted General Exam - General Exam Comments Initial Comments: General: Appears in no acute distress. HEAD: Normal with no signs of head trauma. EYES: PERRLA, EOMI, conjunctiva normal, no discharge. ENT: Hearing grossly intact, normal oropharynx. RESPIRATORY: Clear breath sounds bilaterally. No wheezes, rales, or rhonchi. C/V: Regular rate and rhythm. S1 and S2 auscultated. No peripheral edema. Peripheral pulses are 2+ and intact throughout. Patient has a left upper extremity AV fistula with a palpable thrill and audible bruit. ABD: Abd is soft, nontender, nondistended EXT: Normal range of motion, no obvious deformity SKIN: No rashes or lesions observed on exposed skin. NEURO: Alert and oriented 4. Residual left-sided weakness 4 out of 5. No other acute neurological findings at this time. Course Vital Signs 03/23/21 03/23/21 03/23/21 12:46 12:50 13:00 Temperature 98.6 F Pulse Rate 92 Pulse Rate [ 84 Railways Assistant ] Respiratory 18 Rate Blood Pressure 168/102 162/102 163/93 O2 Sat by Pulse 98 97 Oximetry 03/23/21 03/23/21 03/23/21 14:00 15:00 15:02 Temperature Pulse Rate 88 86 87 Pulse Rate [ Railways Assistant ] Respiratory 57 H 20 18 Rate Blood Pressure 163/93 163/93 156/88 O2 Sat by Pulse 99 95 99 Oximetry 03/23/21 03/23/21 16:00 17:00 Temperature 97.8 F Pulse Rate 84 85 Pulse Rate [ Railways Assistant ] Respiratory 15 19 Rate Blood Pressure 156/88 152/82 O2 Sat by Pulse 98 97 Oximetry Medical Decision Making - Medical Decision Making Based on the patient's presentation and physical exam, she is having substernal chest pain with a history of angina. We will obtain a cardiac workup including troponin, EKG, chest x-ray. Also obtain basic laboratory studies to ensure she does not require dialysis as she did miss her last run on Monday. 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 She'll be given an aspirin. She will be connected to continuous cardiac monitoring while she is here in the department. EKG showed no acute signs of ischemia. She does have first-degree AV block which is old and seen on prior EKGs.Patient's chest x-ray revealed no acute cardiopulmonary process. Laboratory studies are remarkable for elevated creatinine in sending of ESRD on hemodialysis. Patient's potassium is elevated 5.7 but there are no EKG changes. Troponin is negative. Urinalysis is unremarkable. It is a contaminated catch. The remainder of her labs are unremarkable. On reevaluation come patient's chest pain is improved. She is at baseline. I discussed with her that we'll speak with nephrology to see if she requires urgent dialysis on this admission. She was in agreement with the plan. I spoke with the battalion chief powertrain calibration engineer, Dr. Mcgovern, who stated the patient does not require admission to the hospital for her hyperkalemia. I will shif her and have her follow-up with her normal dialysis appointment the morning. The patient was in agreement with this plan. She was given IV insulin, D50, as well as a dose of Lasix that she produces urine. Repeat sugar was within normal limits. Patient will be discharged home in stable condition at this time. I instructed the patient to follow up with their PCP in the next 3 days. . I explained that the patient should return to the emergency department if they experience any worsening symptoms. Strict return precautions were discussed with the patient. The patient expressed understanding of these instructions. I answered all questions that the patient had. The patient was discharged home in fair condition with their prescriptions and follow up information. - Lab Data Result diagrams: 03/23/21 14:28 03/23/21 14:28 Lab Results 03/23/21 03/23/21 03/23/21 Range/Units 14:28 14:28 14:28 WBC 7.9 (3.8-10.6) k/uL RBC 3.98 (3.80-5.40) m/uL Hgb 11.9 (11.4-16.0) gm/dL Hct 36.8 (34.0-46.0) % MCV 92.4 (80.0-100.0) fL MCH 29.9 (25.0-35.0) pg MCHC 32.4 (31.0-37.0) g/dL RDW 15.8 H (11.5-15.5) % Plt Count 331 (150-450) k/uL MPV 8.2 Neutrophils % 61 % Lymphocytes % 31 % Monocytes % 4 % Eosinophils % 1 % Basophils % 1 % Neutrophils # 4.8 (1.3-7.7) k/uL Lymphocytes # 2.5 (1.0-4.8) k/uL Monocytes # 0.3 (0-1.0) k/uL Eosinophils # 0.1 (0-0.7) k/uL Basophils # 0.1 (0-0.2) k/uL Hypochromasia Slight PT 10.6 (9.0-12.0) sec INR 1.0 (<1.2) APTT 20.4 L (22.0-30.0) sec Sodium 138 (137-145) mmol/L Potassium 5.7 H (3.5-5.1) mmol/L Chloride 97 L (98-107) mmol/L Carbon Dioxide 23 (22-30) mmol/L Anion Gap 18 mmol/L BUN 57 H (7-17) mg/dL Creatinine 12.11 H* (0.52-1.04) mg/dL Est GFR (CKD-EPI)AfAm 4 (>60 ml/min/1.73 sqM) Est GFR (CKD-EPI)NonAf 3 (>60 ml/min/1.73 sqM) Glucose 91 (74-99) mg/dL POC Glucose (mg/dL) (75-99) mg/dL POC Glu Service Tester ID Calcium 9.2 (8.4-10.2) mg/dL Magnesium 2.3 (1.6-2.3) mg/dL Total Bilirubin 0.3 (0.2-1.3) mg/dL AST 19 (14-36) U/L ALT 12 (4-34) U/L Alkaline Phosphatase 125 (38-126) U/L Troponin I (0.000-0.034) ng/mL Total Protein 7.2 (6.3-8.2) g/dL Albumin 4.4 (3.5-5.0) g/dL Urine Color Urine Appearance (Clear) Urine pH (5.0-8.0) Ur Specific [place] (1.001-1.035) Urine Protein (Negative) Urine Glucose (UA) (Negative) Urine Ketones (Negative) Urine Blood (Negative) Urine Nitrite (Negative) Urine Bilirubin (Negative) Urine Urobilinogen (<2.0) mg/dL Ur Leukocyte Esterase (Negative) Urine RBC (0-5) /hpf Urine WBC (0-5) /hpf Ur Squamous Epith Cells (0-4) /hpf Urine Bacteria (None) /hpf 03/23/21 03/23/21 03/23/21 Range/Units 14:28 15:03 17:05 WBC (3.8-10.6) k/uL RBC (3.80-5.40) m/uL Hgb (11.4-16.0) gm/dL Hct (34.0-46.0) % MCV (80.0-100.0) fL MCH (25.0-35.0) pg MCHC (31.0-37.0) g/dL RDW (11.5-15.5) % Plt Count (150-450) k/uL MPV Neutrophils % % Lymphocytes % % Monocytes % % Eosinophils % % Basophils % % Neutrophils # (1.3-7.7) k/uL Lymphocytes # (1.0-4.8) k/uL Monocytes # (0-1.0) k/uL Eosinophils # (0-0.7) k/uL Basophils # (0-0.2) k/uL Hypochromasia PT (9.0-12.0) sec INR (<1.2) APTT (22.0-30.0) sec Sodium (137-145) mmol/L Potassium (3.5-5.1) mmol/L Chloride (98-107) mmol/L Carbon Dioxide (22-30) mmol/L Anion Gap mmol/L BUN (7-17) mg/dL Creatinine (0.52-1.04) mg/dL Est GFR (CKD-EPI)AfAm (>60 ml/min/1.73 sqM) Est GFR (CKD-EPI)NonAf (>60 ml/min/1.73 sqM) Glucose (74-99) mg/dL POC Glucose (mg/dL) 198 H (75-99) mg/dL POC Glu Service Tester ID Elena French Calcium (8.4-10.2) mg/dL Magnesium (1.6-2.3) mg/dL Total Bilirubin (0.2-1.3) mg/dL AST (14-36) U/L ALT (4-34) U/L Alkaline Phosphatase (38-126) U/L Troponin I <0.012 (0.000-0.034) ng/mL Total Protein (6.3-8.2) g/dL Albumin (3.5-5.0) g/dL Urine Color Light Yellow Urine Appearance Cloudy H (Clear) Urine pH 8.5 H (5.0-8.0) Ur Specific [place] 1.015 (1.001-1.035) Urine Protein 2+ H (Negative) Urine Glucose (UA) Negative (Negative) Urine Ketones Negative (Negative) Urine Blood Small H (Negative) Urine Nitrite Negative (Negative) Urine Bilirubin Negative (Negative) Urine Urobilinogen <2.0 (<2.0) mg/dL Ur Leukocyte Esterase Trace H (Negative) Urine RBC 1 (0-5) /hpf Urine WBC 8 H (0-5) /hpf Ur Squamous Epith Cells 3 (0-4) /hpf Urine Bacteria Rare H (None) /hpf - EKG Data -: EKG Interpreted by Me EKG Comments: 12-lead Electrocardiogram Interpretation Note EKG was reviewed and interpreted by myself. 12-lead ECG performed at 1250 is interpreted by me as revealing normal sinus rhythm at a rate of 92 beats per minute. [place] is normal. GA intervals 232 ms remarkable for first-degree AV block. QRS duration is 92 no seconds, QTC is 484 to seconds.. There were no ST or T wave abnormalities to suggest myocardial ischemia or injury. R wave progression across the precordium was satisfactory. By my interpretation this EKG is non-diagnostic for acute ischemia. When compared with prior EKGs, there are no acute changes. Disposition Clinical Impression: Chest pain of unknown etiology, Hyperkalemia, Missed dialysis Disposition: HOME SELF-CARE Condition: Fair Instructions (If sedation given, give patient instructions): Chest Pain (ED) Is patient prescribed a controlled substance at d/c from ED?: No Referrals: Geoffrey Somers MD [Primary Care Provider] - 1-2 days Urszula Ludwig MD [STAFF PHYSICIAN] - 1-2 days
[2021-03-23 14:43] LABS: Basophils # (A) 0.1 k/uL (0-0.2); Basophils % (A) 1 %; Eosinophils # (A) 0.1 k/uL (0-0.7); Eosinophils % (A) 1 %; HCT 36.8 % (34.0-46.0); HGB 11.9 gm/dL (11.4-16.0); Hypochromasia Slight; Lymphocytes # (A) 2.5 k/uL (1.0-4.8); Lymphocytes % (A) 31 %; MCH 29.9 pg (25.0-35.0); MCHC 32.4 g/dL (31.0-37.0); MCV 92.4 fL (80.0-100.0); Mean Platelet Volume 8.2; Monocytes # (A) 0.3 k/uL (0-1.0); Monocytes % (A) 4 %; Neutrophils # (A) 4.8 k/uL (1.3-7.7); Neutrophils % (A) 61 %; Platelet Count 331 k/uL (150-450); RBC 3.98 m/uL (3.80-5.40); RDW 15.8 % (11.5-15.5); WBC 7.9 k/uL (3.8-10.6)
[2021-03-23 14:54] LABS: Albumin 4.4 g/dL (3.5-5.0); Calcium 9.2 mg/dL (8.4-10.2); Magnesium 2.3 mg/dL (1.6-2.3); Potassium 5.7 mmol/L (3.5-5.1); Total Bilirubin 0.3 mg/dL (0.2-1.3); Total Protein 7.2 g/dL (6.3-8.2)
--- NOTE | 2021-03-23 14:55 | XR ---
EXAMINATION TYPE: XR chest 2V DATE OF EXAM: 03/23/2021 COMPARISON: 09/09/2020 HISTORY: Shortness of breath TECHNIQUE: Frontal and lateral views of the chest are obtained. FINDINGS: Scattered senescent parenchymal changes noted. Hyperinflation compatible with COPD. No evidence for infiltrate. No evidence for atelectasis. Heart size is stable. Mediastinal structures are stable and grossly unremarkable. No evidence for hilar prominence. Degenerative changes dorsal spine. IMPRESSION: 1. No evidence for acute pulmonary disease.
[2021-03-23 14:57] LABS: Prothrombin Time 10.6 sec (9.0-12.0)
[2021-03-23 15:04] LABS: Partial Thromboplastin Time 20.4 sec (22.0-30.0)
[2021-03-23] MEDS ORDERED: DEXTROSE 50% SYRINGE 50 ML IVP STA (15:21)
[2021-03-23 15:26] LABS: Appearance,Urine Cloudy (Clear); Bacteria,Urine Rare /hpf; Bilirubin,Urine Negative (Negative); Blood,Urine Small (Negative); Color,Urine Light Yellow; Glucose,Urine (UA) Negative (Negative); Ketones,Urine Negative (Negative); Leukocyte Esterase,Urine Trace (Negative); Nitrite,Urine Negative (Negative); PH, Urine 8.5 (5.0-8.0); Protein,Urine 2+ (Negative); RBC,Urine 1 /hpf (0-5); Specific Gravity,Urine 1.015 (1.001-1.035); Squamous Epithelial Cell,Urine 3 /hpf (0-4); Urobilinogen,Urine <2.0 mg/dL (<2.0); WBC,Urine 8 /hpf (0-5)
[2021-03-23] MEDS ORDERED: INSULIN REGULAR 100 UNIT/ML VIAL (IV) IV ONE (15:26)
[2021-03-23] MEDS ORDERED: FUROSEMIDE 10 MG/ML 2 ML VIAL IV ONE (15:49)
[2021-03-23 17:06] LABS: Glucose,Whole Blood 198 mg/dL (75-99)
[2021-03-23 17:07] VITALS: BP 152/82; RESP 19; TEMP 97.8
[2021-03-23 17:21] VITALS: PULSE 84
== END 2021-03-23 17:31 | disposition home or self-care (01) ==
LOC: EC 12:40
DX: R07.9 Chest pain, unspecified (principal); E87.5 Hyperkalemia; I12.0 Hypertensive chronic kidney disease with stage 5 chronic kidney disease or end stage renal disease; E11.22 Type 2 diabetes mellitus with diabetic chronic kidney disease; N18.6 End stage renal disease; E07.9 Disorder of thyroid, unspecified; F31.9 Bipolar disorder, unspecified; Z99.2 Dependence on renal dialysis; Z90.89 Acquired absence of other organs; Z87.891 Personal history of nicotine dependence; Z79.02 Long term (current) use of antithrombotics/antiplatelets; Z88.0 Allergy status to penicillin; Z86.73 Personal history of transient ischemic attack (TIA), and cerebral infarction without residual deficits
CPT/HCPCS: 99285; 96374; 36415; 93005; 80053; 83735; 84484; 85025; 85610; 85730; 81001; 71046; J1940

== ENCOUNTER 2021-04-06 13:16 | Emergency (ER) | payer MEDICARE, OTHER ==
[2021-04-06 14:06] VITALS: TEMP 98.3
[2021-04-06] MEDS ORDERED: SODIUM CHLORIDE 0.9% 1,000 ML IV STA (15:10)
[2021-04-06 15:42] LABS: Glucose,Whole Blood 197 mg/dL (75-99)
[2021-04-06 16:43] LABS: Albumin 4.7 g/dL (3.5-5.0); Calcium 9.3 mg/dL (8.4-10.2); Magnesium 2.2 mg/dL (1.6-2.3); Total Bilirubin 0.8 mg/dL (0.2-1.3)
[2021-04-06 16:46] LABS: Potassium 5.8 mmol/L (3.5-5.1)
[2021-04-06 16:49] LABS: Basophils # (A) 0.1 k/uL (0-0.2); Basophils % (A) 1 %; Eosinophils # (A) 0.1 k/uL (0-0.7); Eosinophils % (A) 1 %; HCT 38.2 % (34.0-46.0); HGB 13.6 gm/dL (11.4-16.0); Hyperchromasia Slight; Lymphocytes # (A) 1.8 k/uL (1.0-4.8); Lymphocytes % (A) 15 %; MCH 30.3 pg (25.0-35.0); MCHC 35.6 g/dL (31.0-37.0); Mean Platelet Volume 9.2; Monocytes # (A) 0.5 k/uL (0-1.0); Monocytes % (A) 4 %; Neutrophils # (A) 9.3 k/uL (1.3-7.7); Neutrophils % (A) 78 %; Platelet Count 276 k/uL (150-450); RBC 4.48 m/uL (3.80-5.40); RDW 14.6 % (11.5-15.5); WBC 11.9 k/uL (3.8-10.6)
[2021-04-06 16:55] LABS: MCV 85.3 fL (80.0-100.0)
[2021-04-06] MEDS ORDERED: LACOSAMIDE 150 MG TABLET PO STA (17:49)
[2021-04-06 18:00] VITALS: BP 132/81; PULSE 92; RESP 16
--- NOTE | 2021-04-06 18:09 | ED ---
Seizure HPI - General Chief Complaint: Seizure Stated Complaint: seizure Time Seen by Provider: 04/06/21 14:54 Source: patient, family Mode of arrival: wheelchair Limitations: no limitations - History of Present Illness Initial Comments: Patient is a 51-year-old female with a history of seizures and CT renal disease and other comorbidities presenting after having a seizure today. Family member notes that patient ran out of [facility] Monday and has since been without a. They note they went to her primary care today trying to refills but have not got ten them yet. Family notes the patient has baseline while in the ER. Patient was alert and oriented drink question exam. She denied any pain or issues at this time. She was otherwise a well-appearing 51-year-old female. She denied any chest pain shortness of breath headache nausea vomiting diarrhea constipation fever fatigue chills. - Related Data Home Medications Medication Instructions Recorded Confirmed Atorvastatin [Lipitor] 40 mg PO DAILY 03/23/21 04/06/21 Dulaglutide [Trulicity] 3 mg SQ WE 03/23/21 04/06/21 Ergocalciferol [Vitamin D2 (1250 1,250 mcg PO ESQUIVEL 03/23/21 04/06/21 Mcg = 75931 Iu)] Lacosamide [Vimpat] 150 mg PO MOWETH@,,03/23/21 04/06/21 Lacosamide [Vimpat] 150 mg PO SUTUFRSA@0700,1900 03/23/21 04/06/21 Metoprolol Succinate (ER) [Toprol 25 mg PO DAILY 03/23/21 04/06/21 Xl] Sevelamer [Renvela] 1,600 mg PO AC-TID 03/23/21 04/06/21 Vascepa 1gm 2 gm PO BID 03/23/21 04/06/21 levETIRAcetam [Keppra] 750 mg PO MOWETH@07,12,03/23/21 04/06/21 levETIRAcetam [Keppra] 750 mg PO SUTUFRSA@0700,1900 03/23/21 04/06/21 Insulin Glargine [Lantus Vial] 8 unit SQ BID 04/06/21 04/06/21 Previous Rx's Medication Instructions Recorded Citalopram Hydrobromide [CeleXA] 10 mg PO DAILY #30 tab 09/05/20 Clopidogrel [Plavix] 75 mg PO DAILY #30 tab 09/05/20 amLODIPine [Norvasc] 10 mg PO DAILY #30 tab 09/05/20 Lacosamide [Vimpat] 150 mg PO BID 3 Days #6 tab 04/06/21 Allergies Allergy/AdvReac Type Severity Reaction Status Date / Time Penicillins Allergy Itching Verified 04/06/21 16:41 Review of Systems ROS Statement: Those systems with pertinent positive or pertinent negative responses have been documented in the HPI. ROS Other: All systems not noted in ROS Statement are negative. Past Medical History Past Medical History: Chest Pain / Angina, CVA/TIA, Diabetes Mellitus, Hypertension, Renal Disease, Seizure Disorder, Thyroid Disorder Additional Past Medical History / Comment(s): Dialysis, bipolar, neuropathy, baseline orientation to person/place, drop foot left, only able to walk short distances with walker or wheelchair History of Any Multi-Drug Resistant Organisms: None Reported Past Surgical History: Section, Tonsillectomy Additional Past Surgical History / Comment(s): left arm fistula, loop recorder, vagus nerve stimulator Past Anesthesia/Blood Transfusion Reactions: No Reported Reaction Past Psychological History: Bipolar Smoking Status: Former smoker Past Alcohol Use History: Occasional Past Drug Use History: None Reported - Past Family History Father Family Medical History: Unable to Obtain Additional Family Medical History / Comment(s): adopted General Exam Limitations: no limitations General appearance: alert, in no apparent distress Head exam: Present: atraumatic, normocephalic, normal inspection Eye exam: Present: normal appearance, PERRL, EOMI. Absent: scleral icterus, conjunctival injection, periorbital swelling Neck exam: Present: normal inspection Respiratory exam: Present: normal lung sounds bilaterally. Absent: respiratory distress, wheezes, rales, rhonchi, stridor Cardiovascular Exam: Present: regular rate, normal rhythm, normal heart sounds. Absent: systolic murmur, diastolic murmur, rubs, gallop, clicks GI/Abdominal exam: Present: soft, normal bowel sounds. Absent: distended, tenderness, guarding, rebound, rigid Extremities exam: Present: normal inspection, full ROM, normal capillary refill. Absent: tenderness, pedal edema, joint swelling, calf tenderness Neurological exam: Present: alert, oriented X3 Psychiatric exam: Present: normal affect, normal mood Skin exam: Present: warm, dry, intact, normal color. Absent: rash Course Vital Signs 04/06/21 14:02 Temperature 98.3 F Pulse Rate 99 Respiratory 20 Rate Blood Pressure 116/79 O2 Sat by Pulse 100 Oximetry Medical Decision Making - Medical Decision Making 51-year-old female with history of seizures presenting today after having a seizure. Labs, EKG, court recorder liter normal saline ordered. Labs:White blood cells 11.9, creatinine 8.5 to patient does have end-stage renal disease and is on dialysis. Rest are similar to baseline. 150 mg of Vimpat ordered. Case discussed with Dr. Horne, patient discharge home with follow-up to her primary care and seizure clinic. - Lab Data Result diagrams: 04/06/21 16:20 04/06/21 16:20 Lab Results 04/06/21 04/06/21 04/06/21 Range/Units 15:41 16:20 16:20 WBC 11.9 H (3.8-10.6) k/uL RBC 4.48 (3.80-5.40) m/uL Hgb 13.6 (11.4-16.0) gm/dL Hct 38.2 (34.0-46.0) % MCV 85.3 D (80.0-100.0) fL MCH 30.3 (25.0-35.0) pg MCHC 35.6 (31.0-37.0) g/dL RDW 14.6 (11.5-15.5) % Plt Count 276 (150-450) k/uL MPV 9.2 Neutrophils % 78 % Lymphocytes % 15 % Monocytes % 4 % Eosinophils % 1 % Basophils % 1 % Neutrophils # 9.3 H (1.3-7.7) k/uL Lymphocytes # 1.8 (1.0-4.8) k/uL Monocytes # 0.5 (0-1.0) k/uL Eosinophils # 0.1 (0-0.7) k/uL Basophils # 0.1 (0-0.2) k/uL Hyperchromasia Slight Sodium 136 L (137-145) mmol/L Potassium 5.8 H (3.5-5.1) mmol/L Chloride 95 L (98-107) mmol/L Carbon Dioxide 25 (22-30) mmol/L Anion Gap 16 mmol/L BUN 43 H (7-17) mg/dL Creatinine 8.52 H* (0.52-1.04) mg/dL Est GFR (CKD-EPI)AfAm 6 (>60 ml/min/1.73 sqM) Est GFR (CKD-EPI)NonAf 5 (>60 ml/min/1.73 sqM) Glucose 196 H (74-99) mg/dL POC Glucose (mg/dL) 197 H (75-99) mg/dL POC Glu [place] Interpretive Specialist ID Susan Julien Calcium 9.3 (8.4-10.2) mg/dL Magnesium 2.2 (1.6-2.3) mg/dL Total Bilirubin 0.8 (0.2-1.3) mg/dL AST 39 H (14-36) U/L ALT 18 (4-34) U/L Alkaline Phosphatase 119 (38-126) U/L Total Protein 8.0 (6.3-8.2) g/dL Albumin 4.7 (3.5-5.0) g/dL - EKG Data -: EKG Interpreted by Ia EKG shows normal: sinus rhythm Rate: normal EKG Comments: Ventricular rate 94 bpm, MS interval 192 ms, QRS duration 74 ms, QTC 485 ms, PRT axes 50/95/69. Normal sinus rhythm, rightward axis, nonspecific ST abnormality, prolonged QT, abnormal ECG. Disposition Clinical Impression: Seizure, Chronic renal failure, Hyperkalemia Disposition: HOME SELF-CARE Condition: Stable Instructions (If sedation given, give patient instructions): Recurrent Seizures in Adults (ED), Seizure/Epilepsy Discharge Instructions & Follow-Up Additional Instructions: Please return to the Emergency Department if symptoms worsen or any other concerns. Follow-up primary care 1-2 days. Take medications as prescribed. Is patient prescribed a controlled substance at d/c from ED?: No Referrals: Geoffrey Somers MD [Primary Care Provider] - 1-2 days Time of Disposition: 18:15
== END 2021-04-06 18:32 | disposition home or self-care (01) ==
LOC: EC 13:16
DX: R56.9 Unspecified convulsions (principal); E87.5 Hyperkalemia; N18.6 End stage renal disease; F31.9 Bipolar disorder, unspecified; I12.0 Hypertensive chronic kidney disease with stage 5 chronic kidney disease or end stage renal disease; E11.22 Type 2 diabetes mellitus with diabetic chronic kidney disease; E11.40 Type 2 diabetes mellitus with diabetic neuropathy, unspecified; Z86.73 Personal history of transient ischemic attack (TIA), and cerebral infarction without residual deficits; Z87.891 Personal history of nicotine dependence; Z88.0 Allergy status to penicillin; Z79.4 Long term (current) use of insulin; Z99.2 Dependence on renal dialysis
CPT/HCPCS: 36415; 80053; 83735; 85025; 93005; 99285

== ENCOUNTER 2021-08-06 08:54 | Day surgery (SDC) | payer MEDICARE, OTHER ==
[2021-07-30 14:51] VITALS: BMI 31.4
[~2021-08-06 08:54] MED LIST: SODIUM CHLORIDE 0.9% 1,000 ML in EMPTY BAG 1 BAG IV ONE
[2021-08-06 09:42] VITALS: RESP 16; TEMP 98.2
[2021-08-06 09:57] LABS: Glucose,Whole Blood 169 mg/dL (75-99)
[2021-08-06] MEDS ORDERED: SODIUM CHLORIDE 0.9% 500 ML 500 ML IV ONE (09:58)
[2021-08-06] MEDS: LIDOCAINE 1% INJ 10MG/ML (20 ML MDV) SQ ONE ×2 (10:13→10:49)
[2021-08-06] MEDS ORDERED: LIDOCAINE 1% INJ 10MG/ML (20 ML MDV) SQ ONE (10:13)
[2021-08-06] MEDS: MIDAZOLAM 2 MG/2 ML VIAL IV ONE ×2 (10:13→10:46)
[2021-08-06] MEDS ORDERED: HYDROmorphone 0.5 MG/0.5 ML SYRINGE IVP ONE (10:40)
[2021-08-06] MEDS ORDERED: IOPAMIDOL-250 100ML BTL IV ONE (10:56)
[2021-08-06] MEDS ORDERED: IOPAMIDOL-250 100ML BTL INTRAARTER ONE (11:13)
--- NOTE | 2021-08-06 11:42 | P.OP ---
Date of Procedure: 08/06/21 Description of Procedure: Date: 08/06/2021 Preoperative diagnosis: Dysfunctional left upper extremity arteriovenous fistula, end-stage renal disease on hemodialysis Postoperative diagnosis: Same, outflow stenosis Procedure: Left Upper extremity fistulogram with ultrasound guided access, percutaneous transluminal balloon angioplasty of the outflow stenosis with 9 x 60 mm drug-eluting balloon Surgeon: Carlin Sierra DO Anesthesia : Local Estimated blood loss: Minimal Complications: None Condition: Stable Disposition: Palpable thrill left upper extremity arteriovenous fistula Indications: 51-year-old female with history of incisional disease on hemodialysis via left upper extremity to venous fistula presented to the office secondary to decreased flow seen in dialysis. She states they have stopped her short a couple of times during dialysis. She underwent ultrasound which demonstrated some increased flows in the fistula itself but it is widely patent. She presents today for fistulogram and possible intervention. Operative narrative: After written informed consent was obtained the patient all risks benefits competitions were described the patient is brought to the Meat Inspector and laid in a supine position with their left arm outstretched on an armboard. The area of the arm was prepped and draped in usual sterile fashion. Utilizing local anesthetic the fistula was accessed under ultrasound guidance and a 6-Thai sheath was placed. Fistulogram was then obtained demonstrating stenosis and tortuosity within the fistula at the midportion extending to the distal aspect. Central venogram demonstrated no evidence of stenosis with good brisk flow. The area of stenosis was at the access site and therefore another access was performed more distally towards the arterial anastomosis utilizing ultrasound guidance. Due to the stenotic areas and tortuosity guidewire was placed across these lesions and balloon angioplasty was performed first with an 8 x 40 mm balloon followed by a 9 x 60 mm drug-eluting balloon. Final fistula gram was obtained demonstrating improved flow through this area. There was still scarring noted and tortuosity and patient may benefit from interposition CryoVein graft placement in the future if continued issues during dialysis. She will go home today in follow-up in 2 weeks. Plan - Discharge Summary Discharge Rx Participant: No New Discharge Prescriptions: No Action Citalopram Hydrobromide [CeleXA] 10 mg PO DAILY #30 tab amLODIPine [Norvasc] 10 mg PO DAILY #30 tab Clopidogrel [Plavix] 75 mg PO DAILY #30 tab Ergocalciferol [Vitamin D2 (1250 Mcg = 62651 Iu)] 1,250 mcg PO ESQUIVEL levETIRAcetam [Keppra] 750 mg PO SUTUTHSA@0700,1900 Metoprolol Succinate (ER) [Toprol Xl] 25 mg PO DAILY Atorvastatin [Lipitor] 40 mg PO DAILY Vascepa 1gm 2 gm PO BID Sevelamer [Renvela] 1,600 mg PO AC-TID Lacosamide [Vimpat] 150 mg PO SUTUTHSA@0700,1900 Insulin Glargine [Lantus Vial] 8 unit SQ BID levETIRAcetam [Keppra] 750 mg PO MOWEFR@,, Dulaglutide [Trulicity] 3 mg SQ MO Lacosamide [Vimpat] 150 mg PO MOWEFR@,, Discharge Medication List Citalopram Hydrobromide [CeleXA] 10 mg PO DAILY #30 tab 09/05/20 [Rx] Clopidogrel [Plavix] 75 mg PO DAILY #30 tab 09/05/20 [Rx] amLODIPine [Norvasc] 10 mg PO DAILY #30 tab 09/05/20 [Rx] Atorvastatin [Lipitor] 40 mg PO DAILY 03/23/21 [History] Dulaglutide [Trulicity] 3 mg SQ MO 03/23/21 [History] Ergocalciferol [Vitamin D2 (1250 Mcg = 55629 Iu)] 1,250 mcg PO ESQUIVEL 03/23/21 [History] Lacosamide [Vimpat] 150 mg PO MOWEFR@,,03/23/21 [History] Lacosamide [Vimpat] 150 mg PO SUTUTHSA@0700,1900 03/23/21 [History] Metoprolol Succinate (ER) [Toprol Xl] 25 mg PO DAILY 03/23/21 [History] Sevelamer [Renvela] 1,600 mg PO AC-TID 03/23/21 [History] Vascepa 1gm 2 gm PO BID 03/23/21 [History] levETIRAcetam [Keppra] 750 mg PO MOWEFR@,,03/23/21 [History] levETIRAcetam [Keppra] 750 mg PO SUTUTHSA@0700,1900 03/23/21 [History] Insulin Glargine [Lantus Vial] 8 unit SQ BID 04/06/21 [History] Follow up Appointment(s)/Referral(s): Carlin Sierra DO [STAFF PHYSICIAN] - 2 Weeks (follow up appt post fistulagram -- Patient to make appt, office was closed on monday. ) Patient Instructions/Handouts: Peripheral Vascular Angioplasty (DC), Procedural Sedation (ED) Activity/Diet/Wound Care/Special Instructions: Keep sutures clean and dry, notify doctor if any changes to incision sites IE: rash, drainage, swelling, very painful to touch.
[2021-08-06 11:47] VITALS: BP 164/82; PULSE 86
--- NOTE | 2021-08-06 11:48 | IR ---
EXAMINATION TYPE: IR fistula/abscess/sinus tract DATE OF EXAM: 08/06/2021 COMPARISON: NONE HISTORY: Fluoroscopy time. Fluoroscopy was provided to the referring clinician.
== END 2021-08-06 12:35 | disposition home or self-care (01) ==
LOC: CATHCVL 08:54
PROVIDERS: ATTEND Surgery
DX: T85.828A Fibrosis due to other internal prosthetic devices, implants and grafts, initial encounter (principal); N18.6 End stage renal disease; F31.9 Bipolar disorder, unspecified; Z20.822 Contact with and (suspected) exposure to COVID-19; E11.22 Type 2 diabetes mellitus with diabetic chronic kidney disease; R56.9 Unspecified convulsions; Z86.73 Personal history of transient ischemic attack (TIA), and cerebral infarction without residual deficits; Z98.891 History of uterine scar from previous surgery; Z79.02 Long term (current) use of antithrombotics/antiplatelets; Z79.4 Long term (current) use of insulin; Z79.899 Other long term (current) drug therapy
CPT/HCPCS: 36902; 84703; 87635; C1894; C1769 ×4; C1725; C2623; J2250; J2001; J1170; Q9966

== ENCOUNTER 2022-02-25 16:01 | Inpatient (IN) | payer MEDICARE, OTHER ==
[2022-02-25] MEDS ORDERED: LACOSAMIDE 150 MG TABLET PO STA (17:02)
[2022-02-25 17:14] LABS: Basophils # (A) 0.1 k/uL (0-0.2); Basophils % (A) 1 %; Eosinophils # (A) 0.1 k/uL (0-0.7); Eosinophils % (A) 1 %; HCT 36.5 % (34.0-46.0); HGB 12.1 gm/dL (11.4-16.0); Lymphocytes # (A) 2.2 k/uL (1.0-4.8); Lymphocytes % (A) 30 %; MCH 28.9 pg (25.0-35.0); MCHC 33.1 g/dL (31.0-37.0); MCV 87.1 fL (80.0-100.0); Mean Platelet Volume 8.9; Monocytes # (A) 0.4 k/uL (0-1.0); Monocytes % (A) 5 %; Neutrophils # (A) 4.5 k/uL (1.3-7.7); Neutrophils % (A) 61 %; Platelet Count 199 k/uL (150-450); RBC 4.19 m/uL (3.80-5.40); RDW 13.3 % (11.5-15.5); WBC 7.3 k/uL (3.8-10.6)
[2022-02-25] MEDS ORDERED: levETIRAcetam IV 2,000 MG in SODIUM CHLORIDE 0.9% 250 ML IVPB ONE (17:15)
[2022-02-25] MEDS ORDERED: LORazepam 2 MG/ML INJ IV STA (17:19)
[2022-02-25 17:24] LABS: ALT 17 U/L (4-34); AST 34 U/L (14-36); African American GFR (CKD) 13 (>60 ml/min/1.73 sqM); Albumin 4.4 g/dL (3.5-5.0); Alcohol <10 mg/dL; Alkaline Phosphatase 110 U/L (38-126); Anion Gap 12 mmol/L; Blood Urea Nitrogen 15 mg/dL (7-17); Calcium 9.2 mg/dL (8.4-10.2); Carbon Dioxide 29 mmol/L (22-30); Chloride 97 mmol/L (98-107); Glucose 165 mg/dL (74-99); Magnesium 1.9 mg/dL (1.6-2.3); Non-African American GFR(CKD) 12 (>60 ml/min/1.73 sqM); Potassium 4.8 mmol/L (3.5-5.1); Sodium 138 mmol/L (137-145); Total Bilirubin 0.9 mg/dL (0.2-1.3); Total Protein 7.7 g/dL (6.3-8.2)
[2022-02-25] MEDS ORDERED: LACOSAMIDE IV 150 MG in SODIUM CHLORIDE 0.9% 50 ML IVPB STA (17:53)
--- NOTE | 2022-02-25 18:42 | CT ---
EXAMINATION TYPE: CT brain wo con DATE OF EXAM: 02/25/2022 COMPARISON: None HISTORY: seizure activity CT DLP: 1146.4 mGycm Automated exposure control for dose reduction was used. Images of the brain obtained with no contrast. Ventricles and sulci appear normal. There is no mass effect or midline shift. No sign of intracranial hemorrhage. The calvarium is intact. No evidence of cerebral edema. There is normal aeration of the mastoid sinuses. There is a 1 cm hypodensity in the anterior left thalamus consistent with old lacuna r infarct. There is hypodensity in the inferior cerebellar hemispheres bilaterally. IMPRESSION: No acute intracranial abnormality. Old left thalamic lacunar infarct without change. Bilateral old in ferior cerebellar cortical infarcts.
[2022-02-25] MEDS ORDERED: ONDANSETRON 4 MG/2 ML VIAL IVP PRN (18:53)
[2022-02-25] MEDS ORDERED: NALOXONE 0.4 MG/ML 1 ML VIAL IV PRN (18:53)
--- NOTE | 2022-02-25 21:42 | ED ---
General Adult HPI - General Chief complaint: Seizure Stated complaint: Seizure Time Seen by Provider: 02/25/22 16:26 Source: EMS, RN notes reviewed, old records reviewed Mode of arrival: EMS Limitations: no limitations, altered mental status - History of Present Illness Initial comments: Patient is a 52-year-old female with past medical history remarkable for ESRD on hemodialysis, prior CVA, chest pain, hypertension, memory impairment, seizure disorder presents emergency Department following a seizure. Was seen last night with similar complaint. Discharge home. Was at dialysis today and had another seizure. Presents postictal following that seizure. Currently still somewhat confused. Has no acute complaints at this time. States she completed her hemodialysis. Presents for further evaluation at this time. - Related Data Home Medications Medication Instructions Recorded Confirmed Atorvastatin [Lipitor] 40 mg PO DAILY 03/23/21 02/25/22 Dulaglutide [Trulicity] 3 mg SQ Q7D 03/23/21 02/25/22 Lacosamide [Vimpat] 150 mg PO DIRECTED 03/23/21 02/25/22 Lacosamide [Vimpat] 150 mg PO DIRECTED 03/23/21 02/25/22 Sevelamer [Renvela] 800 - 1,600 mg PO DIRECTED 03/23/21 02/25/22 Vascepa 1gm 1 gm PO BID 03/23/21 02/25/22 Calcium Acetate 2,001 mg PO TID-W/MEALS 02/25/22 02/25/22 Metoprolol Tartrate [Lopressor] 25 mg PO BID 02/25/22 02/25/22 Pantoprazole [Protonix] 40 mg PO DAILY 02/25/22 02/25/22 Potassium Chloride ER [K-Dur 20] 20 meq PO BID 02/25/22 02/25/22 levETIRAcetam [Keppra] 500 mg PO BID 02/25/22 02/25/22 Previous Rx's Medication Instructions Recorded Clopidogrel [Plavix] 75 mg PO DAILY #30 tab 09/05/20 amLODIPine [Norvasc] 10 mg PO DAILY #30 tab 09/05/20 Allergies Allergy/AdvReac Type Severity Reaction Status Date / Time Penicillins Allergy Itching Verified 07/30/21 14:55 Review of Systems ROS Statement: Those systems with pertinent positive or pertinent negative responses have been documented in the HPI. Review of Systems: CONST: Denies fever EYES: Denies blurry vision ENT: Denies nasal congestion C/V: Denies Chest pain RESP: Denies shortness of breath GI: Denies abdominal pain : Denies dysuria SKIN: Denies rash. MSK: Denies joint pain. NEURO: Denies headache ROS Other: All systems not noted in ROS Statement are negative. Past Medical History Past Medical History: Chest Pain / Angina, CVA/TIA, Diabetes Mellitus, GERD/Reflux, Hyperlipidemia, Hypertension, Memory Impairment, Osteoarthritis (OA), Renal Disease, Seizure Disorder, Thyroid Disorder Additional Past Medical History / Comment(s): Last seizure approximately one month ago. Spouse states she used to have seizures 4X per week until she had vagal nerve stimulator placed, now has seizures approximately once a week to once a month. Dialysis MOWEFR. Neuropathy, left drop foot, only able to walk short distances, otherwise uses wheelchair. 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 Never diagnosed with Sleep Apnea but spouse states she does stop breathing through the night and he has to shake her to start breathing again. Varicose veins. History of Any Multi-Drug Resistant Organisms: None Reported Past Surgical History: Section, Tonsillectomy, Uterine Ablation Additional Past Surgical History / Comment(s): Left arm fistula, loop recorder, vagus nerve stimulator. Past Anesthesia/Blood Transfusion Reactions: Motion Sickness Additional Past Anesthesia/Blood Transfusion Reaction / Comment(s): Family hx unknown, pt adopted. Past Psychological History: Bipolar Smoking Status: Former smoker Past Alcohol Use History: None Reported Additional Past Alcohol Use History / Comment(s): Quit smoking in 2005. Past Drug Use History: None Reported - Past Family History Father Family Medical History: Unable to Obtain Additional Family Medical History / Comment(s): Pt adopted. General Exam - General Exam Comments Initial Comments: General: Appears in no acute distress. HEAD: Normal with no signs of head trauma. EYES: PERRLA, EOMI, conjunctiva normal, no discharge. Pupils 3mm and equal bilaterally. ENT: Hearing grossly intact, normal oropharynx. RESPIRATORY: Clear breath sounds bilaterally. No wheezes, rales, or rhonchi. C/V: Regular rate and rhythm. S1 and S2 auscultated, peripheral pulses 2+ and intact throughout ABD: Abd is soft, nontender, nondistended EXT: Normal range of motion, no obvious deformity SKIN: No rashes or lesions observed on exposed skin. NEURO: Alert and oriented 2. Still appears somewhat confused and post ictal. No obvious focal deficits. Appears postictal. Limitations: no limitations, altered mental status Course Vital Signs 02/25/22 02/25/22 02/25/22 16:15 17:24 21:14 Temperature 98.0 F Pulse Rate 106 H 104 H 84 Respiratory 18 20 Rate Blood Pressure 177/103 180/95 125/78 O2 Sat by Pulse 97 97 Oximetry Medical Decision Making - Medical Decision Making Based on The patient's presentation and physical exam, I'm concerned for continued postictal state as well as another breakthrough seizure. Did recommen d we obtain basic laboratory studies as well as obtain a CT brain is the second seizure in one day. She was in agreement this plan. We will provide her with a dose of IV didn't have as well as Keppra. EKG shows no signs of acute ischemia. Prior to return of laboratory studies, the patient experiencing another seizure. It stopped with 2 mg IV Ativan. We'll continue to monitor. CT brain shows no acute intracranial process. There are old infarct present. Laboratory studies are remarkable for elevated creatinine in the setting of ESRD on hemodialysis. A call level is undetectable. Remainder of the labs are unremarkable. On reevaluation come patient remains postictal at this time. As she had a third total breakthrough seizure today, I did recommend that we admit her to the hospital. Neurology will be consulted. I spoke with the admitting team under Dr. Acosta accepted the patient. Patient was admitted in stable condition. Vital Signs remain within normal limits. He remains postictal on reevaluation, as well as sedated from the Ativan. We'll continue to monitor. On re-evaluation again, patient remains somewhat tired, however was arousable to shaking. We'll continue to monitor on an inpatient basis. Home antiepileptics were restarted in IV form. - Lab Data Result diagrams: 02/25/22 17:03 02/25/22 17:03 Lab Results 02/25/22 02/25/22 Range/Units 17:03 17:03 WBC 7.3 (3.8-10.6) k/uL RBC 4.19 (3.80-5.40) m/uL Hgb 12.1 (11.4-16.0) gm/dL Hct 36.5 (34.0-46.0) % MCV 87.1 (80.0-100.0) fL MCH 28.9 (25.0-35.0) pg MCHC 33.1 (31.0-37.0) g/dL RDW 13.3 (11.5-15.5) % Plt Count 199 (150-450) k/uL MPV 8.9 Neutrophils % 61 % Lymphocytes % 30 % Monocytes % 5 % Eosinophils % 1 % Basophils % 1 % Neutrophils # 4.5 (1.3-7.7) k/uL Lymphocytes # 2.2 (1.0-4.8) k/uL Monocytes # 0.4 (0-1.0) k/uL Eosinophils # 0.1 (0-0.7) k/uL Basophils # 0.1 (0-0.2) k/uL Sodium 138 (137-145) mmol/L Potassium 4.8 (3.5-5.1) mmol/L Chloride 97 L (98-107) mmol/L Carbon Dioxide 29 (22-30) mmol/L Anion Gap 12 mmol/L BUN 15 (7-17) mg/dL Creatinine 4.10 H (0.52-1.04) mg/dL Est GFR (CKD-EPI)AfAm 13 (>60 ml/min/1.73 sqM) Est GFR (CKD-EPI)NonAf 12 (>60 ml/min/1.73 sqM) Glucose 165 H (74-99) mg/dL Calcium 9.2 (8.4-10.2) mg/dL Magnesium 1.9 (1.6-2.3) mg/dL Total Bilirubin 0.9 (0.2-1.3) mg/dL AST 34 (14-36) U/L ALT 17 (4-34) U/L Alkaline Phosphatase 110 (38-126) U/L Total Protein 7.7 (6.3-8.2) g/dL Albumin 4.4 (3.5-5.0) g/dL Serum Alcohol <10 mg/dL - EKG Data -: EKG Interpreted by Me EKG Comments: 12-lead Electrocardiogram Interpretation Note EKG was reviewed and interpreted by myself. 12-lead ECG performed at 1752 is interpreted by me as revealing sinus tachycardia at a rate of 100 beats per minute. [place] is normal. ME interval is 169 ms, QRS duration is 89 ms, QTc is 435 ms.. There were no ST or T wave abnormalities to suggest myocardial ischemia or injury. R wave progression across the precordium was satisfactory. By my interpretation this EKG is non-diagnostic for acute ischemia. Disposition Clinical Impression: Breakthrough seizure, Post-ictal state Disposition: ADMITTED IP TO THIS HOSP Condition: Stable Time of Disposition: 18:45
[2022-02-25] MEDS: POTASSIUM CHLORIDE ER 20 MEQ TAB.ER PO SCH (22:41)
[2022-02-25] MEDS: METOPROLOL TARTRATE 25 MG TAB PO SCH (22:41)
[2022-02-25] MEDS: HEPARIN SODIUM,PORCINE/PF 5,000 UNIT/0.5 ML SYRINGE SQ SCH (22:45)
[2022-02-25] MEDS: levETIRAcetam IV 750 MG in SODIUM CHLORIDE 0.9% 100 ML IVPB SCH (23:41)
[2022-02-26] MEDS: LACOSAMIDE IV 150 MG in SODIUM CHLORIDE 0.9% 50 ML IVPB SCH ×3 (05:55→21:44)
[2022-02-26] MEDS: amLODIPine 10 MG TAB PO SCH (08:14)
[2022-02-26] MEDS: CLOPIDOGREL 75 MG TAB PO SCH (08:14)
[2022-02-26] MEDS: ATORVASTATIN 40 MG TAB PO SCH (08:14)
[2022-02-26] MEDS: CALCIUM ACETATE 667 MG TAB PO SCH ×3 (08:14→18:45)
[2022-02-26] MEDS: POTASSIUM CHLORIDE ER 20 MEQ TAB.ER PO SCH ×3 (08:14→21:19)
[2022-02-26] MEDS: METOPROLOL TARTRATE 25 MG TAB PO SCH ×2 (08:14→21:19)
[2022-02-26] MEDS: PANTOPRAZOLE 40 MG TABLET PO SCH (08:14)
[2022-02-26] MEDS: HEPARIN SODIUM,PORCINE/PF 5,000 UNIT/0.5 ML SYRINGE SQ SCH ×3 (08:15→23:30)
[2022-02-26] MEDS: levETIRAcetam IV 750 MG in SODIUM CHLORIDE 0.9% 100 ML IVPB SCH ×3 (08:23→22:10)
[2022-02-26 11:59] LABS: Basophils # (A) 0.07 X 10*3/uL (0.00-0.10); Eosinophils # (A) 0.08 X 10*3/uL (0.04-0.35); Eosinophils % (A) 1.1 %; HCT 31.6 % (37.2-46.3); Immature Grans, Automated 0.3 %; Lymphocytes # (A) 2.12 X 10*3/uL (0.90-5.00); Lymphocytes % (A) 29.9 %; MCH 28.3 pg (27.0-32.0); MCHC 31.6 g/dL (32.0-37.0); MCV 89.5 fL (80.0-97.0); Mean Platelet Volume 11.6 fL (9.5-12.2); Monocytes # (A) 0.58 X 10*3/uL (0.20-1.00); Monocytes % (A) 8.2 %; NRBC Per 100 WBC 0 /100 WBCS (0.0-0.0); Neutrophils # (A) 4.23 X 10*3/uL (1.80-7.70); Neutrophils % (A) 59.5 %; Platelet Count 163 X 10*3/uL (140-440); RBC 3.53 X 10*6/uL (4.10-5.20); RDW 13.1 % (11.5-14.5)
[2022-02-26] MEDS ORDERED: LORazepam 2 MG/ML INJ IV PRN (13:07)
--- NOTE | 2022-02-26 13:07 | P.CNNES ---
History of Present Illness Consult date: 02/26/22 Requesting physician: Devyn George Reason for Consult: multiple breakthrough seizure, postictal History of Present Illness: This is a 52-year-old woman with medical history of long standing epilepsy on VNS, CVA with left hemiparesis, end-stage renal disease on dialysis, diabetes, hypertension who presented to our emergency department on 02/25/2022 for breakthrough seizure. Patient is known to our neurology service. Seems the patient was a here 2 days ago in our ED for seizure and was discharged home and had dialysis yesterday and had another seizure and was in post ictal state. It seems of the patient's co mplete her hemodialysis per the ED team. I spoke with the patient's and he stated the patient is following-up with Dr. Ohara's team rather Dr. Norris (Neurologist at [facility]) since wanted something closer and patient has been having her VNS modified and not longer haver her on Onfi. Her home antiepileptic medications are Keppra 500 mg 1 tablet twice a day, Vimpat 150 mg 1 tab bid. But post dialysis Vimpat 150mg additional dose but not Keppra and not sure why not. Per the nurse she has been doing better since in our facility and no further seizures. I personally saw the patient last in our facility on 2020 for her breakthrough seizure. Please refer to our notes for further details. Some other workup during this hospital visit consisted of: Patient has been afebrile so far CBC with differential is unremarkable Chemistry panel is creatinine is 4.10, glucose is 165 the and a chloride is 97 otherwise source of his Chemisty panel is unremarkable CT of the head is reported as no acute intracranial abnormality. Old left dominant lacunar infarct without change. Bilateral ordered inferior cerebellar cortical infarct. I personally reviewed the CT of the head and I agree with the report Review of Systems Review of system: The 12 point system was reviewed and apparent positive and negative per HPI. Past Medical History Past Medical History: Chest Pain / Angina, CVA/TIA, Diabetes Mellitus, GERD/Reflux, Hyperlipidemia, Hypertension, Memory Impairment, Osteoarthritis (OA), Renal Disease, Seizure Disorder, Thyroid Disorder Additional Past Medical History / Comment(s): Last seizure approximately one month ago. Spouse states she used to have seizures 4X per week until she had vagal nerve stimulator placed, now has seizures approximately once a week to once a month. Dialysis MOWEFR. Neuropathy, left drop foot, only able to walk short distances, otherwise uses wheelchair. 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 Never diagnosed with Sleep Apnea but spouse states she does stop breathing through the night and he has to shake her to start breathing again. Varicose veins. History of Any Multi-Drug Resistant Organisms: None Reported Past Surgical History: Section, Tonsillectomy, Uterine Ablation Additional Past Surgical History / Comment(s): Left arm fistula, loop recorder, vagus nerve stimulator. Past Anesthesia/Blood Transfusion Reactions: Motion Sickness Additional Past Anesthesia/Blood Transfusion Reaction / Comment(s): Family hx unknown, pt adopted. Smoking Status: Former smoker - Past Family History Father Family Medical History: Unable to Obtain Additional Family Medical History / Comment(s): Pt adopted. Medications and Allergies Home Medications Medication Instructions Recorded Confirmed Type Clopidogrel [Plavix] 75 mg PO DAILY #30 tab 09/05/20 02/25/22 Rx amLODIPine [Norvasc] 10 mg PO DAILY #30 tab 09/05/20 02/25/22 Rx Atorvastatin [Lipitor] 40 mg PO DAILY 03/23/21 02/25/22 History Dulaglutide [Trulicity] 3 mg SQ Q7D 03/23/21 02/25/22 History Lacosamide [Vimpat] 150 mg PO DIRECTED 03/23/21 02/25/22 History Lacosamide [Vimpat] 150 mg PO DIRECTED 03/23/21 02/25/22 History Sevelamer [Renvela] 800 - 1,600 mg PO DIRECTED 03/23/21 02/25/22 History Vascepa 1gm 1 gm PO BID 03/23/21 02/25/22 History Calcium Acetate 2,001 mg PO TID-W/MEALS 02/25/22 02/25/22 History Metoprolol Tartrate [Lopressor] 25 mg PO BID 02/25/22 02/25/22 History Pantoprazole [Protonix] 40 mg PO DAILY 02/25/22 02/25/22 History Potassium Chloride ER [K-Dur 20] 20 meq PO BID 02/25/22 02/25/22 History levETIRAcetam [Keppra] 500 mg PO BID 02/25/22 02/25/22 History Allergies Allergy/AdvReac Type Severity Reaction Status Date / Time Penicillins Allergy Itching Verified 07/30/21 14:55 Physical Examination - Vital Signs Vital Signs: Vital Signs Temp Pulse Pulse Resp BP BP Pulse Ox 02/26/22 08:00 97.7 F 79 150/84 100 02/26/22 02:00 98.4 F 84 18 145/88 100 02/25/22 23:43 84 141/87 02/25/22 22:29 83 155/94 02/25/22 22:14 98.4 F 80 18 172/95 100 02/25/22 21:14 84 125/78 02/25/22 17:24 104 H 20 180/95 97 02/25/22 16:15 98.0 F 106 H 18 177/103 97 Intake and Output 02/25/22 02/26/22 02/26/22 22:59 06:59 14:59 Output Total 0 Balance 0 Output: Urine 0 Other: Weight 68.039 kg 68.039 kg GENERAL: The patient is lying in bed and is not in acute distress. CHEST: The heart rate is regular rate rhythm. No murmurs to auscultation. LUNG: Clear to auscultation bilaterally no wheezing noted throughout. Not labored breathing. ABDOMEN/GI: Bowel sounds present in all 4 quadrants. No tenderness to palpation throughout. NEUROLOGICAL: Higher mental function: The patient is slightly drowsy. She is oriented to self, stated the year is 2019 and she was in the hospital. She is following simple commands. Some delay in responding. No aphasia and no neglect. Cranial nerves: The pupils are round, equal and reactive to light. Visual reich are full to confrontation throughout. Extraocular movement is intact no nystagmus is noted. Facial sensation is normal to touch throughout. The facial strength is normal throughout. Hearing is mildly decreased bilaterally to hand rub. Tongue is midline and moved [id number] without any difficulty. No dysarthria is noted. Shoulder shrug is normal bilaterally. Motor: The strength is left sided is 2 (old) while right side is lifting above gravity and normal. Slightly decrease tone over the left. Normal bulk. Cerebellum: Normal finger to nose over the right. Sensation: Sensation is normal to touch throughout. Reflexes (right/left): 1+. Plantars are mute bilaterally. Results - Laboratory Findings CBC and BMP: 02/26/22 08:08 02/25/22 17:03 Abnormal Lab Findings: Abnormal Labs 02/25/22 17:03 Chloride 97 L Creatinine 4.10 H Glucose 165 H Assessment and Plan Assessment: Breakthrough seizure Long history of epilepsy and is on VNS History of stroke with left hemiparesis Diabetes mellitus End-stage renal disease on dialysis Hypertension Plan: In the ED the patient was given Ativan 2 mg once when the and was given a loading dose of Keppra 2 g once. As well as it appears she got a total of 300 mg of Vimpat yesterday in the ED Will restart the patient home medication of Keppra 500mg 1 tab bid, Vimpat 150mg 1 tab bid with additional Vimpat on her dialysis days (M,W,F). I will also add Keppra 500mg 1 tab post dialysis day. I highly recommend to restart patient on Onfi that she was on in past by her former neurologist to assess if that was helping but it seems was discontinue with current neurology team. In the mean team, I will start on Depakote 250mg 1 tab bi. If Onfi is started as outpatient and is helping with her seizures then can discontinue Depakote (since has a lot of side-effects). Patient is on seizure precaution and seizure pads Continue neuro checks Defer the rest of the medical management to primary team Per the [facility], patient is to avoid driving for 6 month until seizure- free, avoid heights, swimming unassisted and the use any heavy machinery. Upon discharge the patient needs to follow-up with her neurologist as an outpatient for 1-2 weeks regarding her seizures. The plan is discussed with patient's (via phone) and nurse. Thank you for the consultation. If the patient continues to be doing well by tomorrow then clear for discharge from neurological perspective. Cristhian Luevano M.D. Neuro-hospitalist Time with Patient: Greater than 30
[2022-02-26 13:15] LABS: African American GFR (CKD) 8.8 (60.0-200.0); Anion Gap 13.2 mmol/L (10.00-18.00); BUN/Creat Ratio 3.22 Ratio (12.00-20.00); Blood Urea Nitrogen 18.7 mg/dL (9.0-27.0); Calcium 8.9 mg/dL (8.7-10.3); Carbon Dioxide 27.8 mmol/L (20.0-27.5); Non-African American GFR(CKD) 7.6 (60.0-200.0); Potassium 6.9 mmol/L (3.5-5.5)
[2022-02-26] MEDS ORDERED: INSULIN REGULAR 100 UNIT/ML VIAL (IV) IV ONE (14:08)
[2022-02-26] MEDS ORDERED: DEXTROSE 50% SYRINGE 50 ML IVP STA (14:08)
[2022-02-26] MEDS: DIVALPROEX ER 250 MG TAB.ER.24H PO SCH ×2 (17:06→21:20)
--- NOTE | 2022-02-26 18:18 | P.HPIM ---
History of Present Illness Chief Complaint: Altered mental status/seizures 52-year-old female with past medical history remarkable for ESRD on hem odialysis, prior CVA, chest pain, hypertension, memory impairment, seizure disorder presents emergency Department following a seizure. Was seen last night with similar complaint. Discharge home. Was at dialysis today and had another seizure. Presents postictal following that seizure. Currently still somewhat confused. Has no acute complaints at this time. States she completed her hemodialysis. Presents for further evaluation at this time. CBC with differential is unremarkable Chemistry panel is creatinine is 4.10, glucose is 165 the and a chloride is 97 otherwise source of his Chemisty panel is unremarkable CT of the head is reported as no acute intracranial abnormality. Old left do minant lacunar infarct without change. Bilateral ordered inferior cerebellar cortical infarct. I personally reviewed the CT of the head and I agree with the report Review of Systems REVIEW OF SYSTEMS: CONSTITUTIONAL: No fever, no malaise, no fatigue. HEENT: No recent visual problems or hearing problems. Denied any sore throat. CARDIOVASCULAR: No chest pain, orthopnea, PND, no palpitations, no syncope. PULMONARY: No shortness of breath, no cough, no hemoptysis. GASTROINTESTINAL: No diarrhea, no nausea, no vomiting, no abdominal pain. NEUROLOGICAL: No headaches, no weakness, no numbness. HEMATOLOGICAL: Denies any bleeding or petechiae. GENITOURINARY: Denies any burning micturition, frequency, or urgency. MUSCULOSKELETAL/RHEUMATOLOGICAL: Denies any joint pain, swelling, or any muscle pain. ENDOCRINE: Denies any polyuria or polydipsia. The rest of the 14-point review of systems is negative. Past Medical History Past Medical History: Chest Pain / Angina, CVA/TIA, Diabetes Mellitus, GERD/Reflux, Hyperlipidemia, Hypertension, Memory Impairment, Osteoarthritis (OA), Renal Disease, Seizure Disorder, Thyroid Disorder Additional Past Medical History / Comment(s): Last seizure approximately one month ago. Spouse states she used to have seizures 4X per week until she had vagal nerve stimulator placed, now has seizures approximately once a week to on ce a month. Dialysis MOWEFR. Neuropathy, left drop foot, only able to walk short distances, otherwise uses wheelchair. 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 Never diagnosed with Sleep Apnea but spouse states she does stop breathing through the night and he has to shake her to start breathing again. Varicose veins. History of Any Multi-Drug Resistant Organisms: None Reported Past Surgical History: Section, Tonsillectomy, Uterine Ablation Additional Past Surgical History / Comment(s): Left arm fistula, loop recorder, vagus nerve stimulator. Past Anesthesia/Blood Transfusion Reactions: Motion Sickness Additional Past Anesthesia/Blood Transfusion Reaction / Comment(s): Family hx unknown, pt adopted. Past Psychological History: Bipolar Smoking Status: Former smoker Past Alcohol Use History: None Reported Additional Past Alcohol Use History / Comment(s): Quit smoking in 2005. Past Drug Use History: None Reported - Past Family History Father Family Medical History: Unable to Obtain Additional Family Medical History / Comment(s): Pt adopted. Medications and Allergies Home Medications Medication Instructions Recorded Confirmed Type Clopidogrel [Plavix] 75 mg PO DAILY #30 tab 09/05/20 02/25/22 Rx amLODIPine [Norvasc] 10 mg PO DAILY #30 tab 09/05/20 02/25/22 Rx Atorvastatin [Lipitor] 40 mg PO DAILY 03/23/21 02/25/22 History Dulaglutide [Trulicity] 3 mg SQ Q7D 03/23/21 02/25/22 History Lacosamide [Vimpat] 150 mg PO DIRECTED 03/23/21 02/25/22 History Lacosamide [Vimpat] 150 mg PO DIRECTED 03/23/21 02/25/22 History Sevelamer [Renvela] 800 - 1,600 mg PO DIRECTED 03/23/21 02/25/22 History Vascepa 1gm 1 gm PO BID 03/23/21 02/25/22 History Calcium Acetate 2,001 mg PO TID-W/MEALS 02/25/22 02/25/22 History Metoprolol Tartrate [Lopressor] 25 mg PO BID 02/25/22 02/25/22 History Pantoprazole [Protonix] 40 mg PO DAILY 02/25/22 02/25/22 History Potassium Chloride ER [K-Dur 20] 20 meq PO BID 02/25/22 02/25/22 History levETIRAcetam [Keppra] 500 mg PO BID 02/25/22 02/25/22 History Allergies Allergy/AdvReac Type Severity Reaction Status Date / Time Penicillins Allergy Itching Verified 07/30/21 14:55 Physical Exam Vitals: Vital Signs Temp Pulse Resp BP Pulse Ox 02/25/22 17:24 104 H 20 180/95 97 02/25/22 16:15 98.0 F 106 H 18 177/103 97 Intake and Output 02/25/22 02/25/22 02/25/22 06:59 14:59 22:59 Other: Weight 68.039 kg PHYSICAL EXAMINATION: GENERAL: The patient is alert and oriented x3, not in any acute distress. Well developed, well nourished. HEENT: Pupils are round and equally reacting to light. EOMI. No scleral icterus. No conjunctival pallor. Normocephalic, atraumatic. No pharyngeal erythema. No thyromegaly. CARDIOVASCULAR: S1 and S2 present. No murmurs, rubs, or gallops. PULMONARY: Chest is clear to auscultation, no wheezing or crackles. ABDOMEN: Soft, nontender, nondistended, normoactive bowel sounds. No palpable organomegaly. MUSCULOSKELETAL: No joint swelling or deformity. EXTREMITIES: No cyanosis, clubbing, or pedal edema. NEUROLOGICAL: Gross neurological examination did not reveal any focal deficits. SKIN: No rashes. Results CBC & Chem 7: 02/26/22 08:08 02/26/22 08:08 Labs: Abnormal Lab Results - Last 24 Hours (Table) 02/25/22 Range/Units 17:03 Chloride 97 L (98-107) mmol/L Creatinine 4.10 H (0.52-1.04) mg/dL Glucose 165 H (74-99) mg/dL Assessment and Plan Assessment: 1. Breakthrough seizures - Patient has a long-standing history of epilepsy In the ED the patient was given Ativan 2 mg once when the and was given a loading dose of Keppra 2 g once. As well as it appears she got a total of 300 mg of Vimpat yesterday in the ED Will restart the patient home medication of Keppra 500mg 1 tab bid, Vimpat 150mg 1 tab bid with additional Vimpat on her dialysis days (M,W,F). I will also add Keppra 500mg 1 tab post dialysis day. I highly recommend to restart patient on Onfi that she was on in past by her former neurologist to assess if that was helping but it seems was discontinue with current neurology team. In the mean team, I will start on Depakote 250mg 1 tab bi. If Onfi is started as outpatient and is helping with her seizures then can discontinue Depakote (since has a lot of side-effects). Patient is on seizure precaution and seizure pads Continue neuro checks 2. Diabetes mellitus; monitor Accu-Cheks before meals and at bedtime with insulin sliding scale; Trulicity 3 mg subcu every 7 days 3. Hypertension; metoprolol 25 mg twice a day; Norvasc 10 mg daily 4. End-stage renal disease/HD; consult nephrology for hemodialysis; continue with home dose of PhosLo 5. CAD; stable on aspirin, statins, beta blockers and Plavix 6. Hyperlipidemia; Lipitor 40 mg by mouth daily at bedtime DVT prophylaxis; SCDs/subcu heparin CODE STATUS; full code
--- NOTE | 2022-02-26 18:19 | P.PN ---
Subjective Progress Note Date: 02/26/22 52-year-old female with past medical history remarkable for ESRD on hemodialysis, prior CVA, chest pain, hypertension, memory impairment, seizure disorder presents emergency Department following a seizure. Was seen last night with similar complaint. Discharge home. Was at dialysis today and had another seizure. Presents postictal following that seizure. Currently still somewhat confused. Has no acute complaints at this time. States she completed her hemodialysis. Presents for further evaluation at this time. CBC with differential is unremarkable Chemistry panel is creatinine is 4.10, glucose is 165 the and a chloride is 97 otherwise source of his Chemisty panel is unremarkable CT of the head is reported as no acute intracranial abnormality. Old left dominant lacunar infarct without change. Bilateral ordered inferior cerebellar cortical infarct. Objective - Vital Signs Vital signs: Vital Signs Temp 97.7 F 02/26/22 08:00 Pulse 79 02/26/22 08:00 Resp 18 02/26/22 02:00 BP 150/84 02/26/22 08:00 Pulse Ox 100 02/26/22 08:00 FiO2 Intake & Output 02/25/22 02/26/22 02/26/22 18:59 06:59 18:59 Output Total 0 Balance 0 Weight 68.039 kg 68.039 kg Output: Urine 0 - Exam PHYSICAL EXAMINATION: GENERAL: The patient is alert and oriented x3, not in any acute distress. Well developed, well nourished. HEENT: Pupils are round and equally reacting to light. EOMI. No scleral icterus. No conjunctival pallor. Normocephalic, atraumatic. No pharyngeal erythema. No thyromegaly. CARDIOVASCULAR: S1 and S2 present. No murmurs, rubs, or gallops. PULMONARY: Chest is clear to auscultation, no wheezing or crackles. ABDOMEN: Soft, nontender, nondistended, normoactive bowel sounds. No palpable organomegaly. MUSCULOSKELETAL: No joint swelling or deformity. EXTREMITIES: No cyanosis, clubbing, or pedal edema. NEUROLOGICAL: Gross neurological examination did not reveal any focal deficits. SKIN: No rashes. - Labs CBC & Chem 7: 02/26/22 08:08 02/26/22 08:08 Labs: Abnormal Lab Results - Last 24 Hours (Table) 02/25/22 02/26/22 Range/Units 17:03 08:08 RBC 3.53 L (4.10-5.20) X 10*6/uL Hgb 10.0 L (12.0-15.0) g/dL Hct 31.6 L (37.2-46.3) % MCHC 31.6 L (32.0-37.0) g/dL Chloride 97 L (98-107) mmol/L Creatinine 4.10 H (0.52-1.04) mg/dL Glucose 165 H (74-99) mg/dL Assessment and Plan Assessment: 1. Breakthrough seizures - Patient has a long-standing history of epilepsy In the ED the patient was given Ativan 2 mg once when the and was given a loading dose of Keppra 2 g once. As well as it appears she got a total of 300 mg of Vimpat yesterday in the ED Will restart the patient home medication of Keppra 500mg 1 tab bid, Vimpat 150mg 1 tab bid with additional Vimpat on her dialysis days (,,). I will also add Keppra 500mg 1 tab post dialysis day. I highly recommend to restart patient on Onfi that she was on in past by her former neurologist to assess if that was helping but it seems was discontinue with current neurology team. In the mean team, I will start on Depakote 250mg 1 tab bi. If Onfi is started as outpatient and is helping with her seizures then can discontinue Depakote (since has a lot of side-effects). Patient is on seizure precaution and seizure pads Continue neuro checks 2. Diabetes mellitus; monitor Accu-Cheks before meals and at bedtime with insulin sliding scale; Trulicity 3 mg subcu every 7 days 3. Hypertension; metoprolol 25 mg twice a day; Norvasc 10 mg daily 4. End-stage renal disease/HD; consult nephrology for hemodialysis; continue with home dose of PhosLo 5. CAD; stable on aspirin, statins, beta blockers and Plavix 6. Hyperlipidemia; Lipitor 40 mg by mouth daily at bedtime DVT prophylaxis; SCDs/subcu heparin CODE STATUS; full code
[2022-02-27] MEDS: LACOSAMIDE 150 MG TABLET PO SCH ×2 (08:48→21:55)
[2022-02-27] MEDS: CALCIUM ACETATE 667 MG TAB PO SCH ×3 (08:48→21:57)
[2022-02-27] MEDS: ATORVASTATIN 40 MG TAB PO SCH (08:48)
[2022-02-27] MEDS: CLOPIDOGREL 75 MG TAB PO SCH (08:48)
[2022-02-27] MEDS: METOPROLOL TARTRATE 25 MG TAB PO SCH ×2 (08:48→21:57)
[2022-02-27] MEDS: amLODIPine 10 MG TAB PO SCH (08:48)
[2022-02-27] MEDS: PANTOPRAZOLE 40 MG TABLET PO SCH (08:48)
[2022-02-27] MEDS: DIVALPROEX ER 250 MG TAB.ER.24H PO SCH ×2 (08:49→21:55)
[2022-02-27] MEDS: levETIRAcetam 500 MG TAB PO SCH ×2 (08:49→21:55)
[2022-02-27] MEDS: HEPARIN SODIUM,PORCINE/PF 5,000 UNIT/0.5 ML SYRINGE SQ SCH ×3 (08:52→23:24)
--- NOTE | 2022-02-27 09:09 | P.NPCON ---
History of Present Illness - Reason for Consult end stage renal disease - History of Present Illness patient is a 52-year-old female with history of end-stage renal disease on hemodialysis on a Monday schedule. Patient has a history of seizures and CVA. She has underlying dementia as well. Patient presented to the hospital after a seizure post dialysis. She had been postictal. Her needles were still in the access when she came in. Patient was dialyzed yesterday. Patient has been evaluated by neurology. Meds have been adjusted several times before. It appears that sometimes patient has had trouble maintaining outpatient regimen with issues regarding availability of medications as well. Review of Systems as per HPI, other systems negative Past Medical History Past Medical History: Chest Pain / Angina, CVA/TIA, Diabetes Mellitus, GERD/Reflux, Hyperlipidemia, Hypertension, Memory Impairment, Osteoarthritis (OA), Renal Disease, Seizure Disorder, Thyroid Disorder Additional Past Medical History / Comment(s): Last seizure approximately one month ago. Spouse states she used to have seizures 4X per week until she had vagal nerve stimulator placed, now has seizures approximately once a week to once a month. Dialysis MOWEFR. Neuropathy, left drop foot, only able to walk short distances, otherwise uses wheelchair. 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 Never diagnosed with Sleep Apnea but spouse states she does stop breathing through the night and he has to shake her to start breathing again. Varicose veins. History of Any Multi-Drug Resistant Organisms: None Reported Past Surgical History: Section, Tonsillectomy, Uterine Ablation Additional Past Surgical History / Comment(s): Left arm fistula, loop recorder, vagus nerve stimulator. Past Anesthesia/Blood Transfusion Reactions: Motion Sickness Additional Past Anesthesia/Blood Transfusion Reaction / Comment(s): Family hx unknown, pt adopted. Past Psychological History: Bipolar Smoking Status: Former smoker Past Alcohol Use History: None Reported Additional Past Alcohol Use History / Comment(s): Quit smoking in 2005. Past Drug Use History: None Reported - Past Family History Father Family Medical History: Unable to Obtain Additional Family Medical History / Comment(s): Pt adopted. Medications and Allergies Home Medications Medication Instructions Recorded Confirmed Type Clopidogrel [Plavix] 75 mg PO DAILY #30 tab 09/05/20 02/25/22 Rx amLODIPine [Norvasc] 10 mg PO DAILY #30 tab 09/05/20 02/25/22 Rx Atorvastatin [Lipitor] 40 mg PO DAILY 03/23/21 02/25/22 History Dulaglutide [Trulicity] 3 mg SQ Q7D 03/23/21 02/25/22 History Lacosamide [Vimpat] 150 mg PO DIRECTED 03/23/21 02/25/22 History Lacosamide [Vimpat] 150 mg PO DIRECTED 03/23/21 02/25/22 History Sevelamer [Renvela] 800 - 1,600 mg PO DIRECTED 03/23/21 02/25/22 History Vascepa 1gm 1 gm PO BID 03/23/21 02/25/22 History Calcium Acetate 2,001 mg PO TID-W/MEALS 02/25/22 02/25/22 History Metoprolol Tartrate [Lopressor] 25 mg PO BID 02/25/22 02/25/22 History Pantoprazole [Protonix] 40 mg PO DAILY 02/25/22 02/25/22 History Potassium Chloride ER [K-Dur 20] 20 meq PO BID 02/25/22 02/25/22 History levETIRAcetam [Keppra] 500 mg PO BID 02/25/22 02/25/22 History Allergies Allergy/AdvReac Type Severity Reaction Status Date / Time Penicillins Allergy Itching Verified 07/30/21 14:55 Physical Exam Vitals: Vital Signs Temp Pulse Resp BP Pulse Ox 02/27/22 08:00 98.4 F 81 149/73 100 02/27/22 02:00 98.2 F 76 17 133/46 100 02/26/22 20:00 76 17 02/26/22 17:52 99 F 78 20 146/73 02/26/22 14:00 98.5 F 76 120/78 100 Intake and Output 02/26/22 02/27/22 02/27/22 22:59 06:59 14:59 Intake Total 300 Output Total 800 Balance -500 Intake: Hemodialysis 300 Output: Hemodialysis 800 Other: # Voids 1 2 # Bowel Movements 1 awake, comfortable, in no acute distress Examination of the heart S1 and S2 Examination lungs bilateral breath sounds are heard Abdomen is soft nontender Examination of lower extremities shows no evidence of edema VEGETABLE TESTER exam grossly intact Results - Lab Results Most recent lab results Calcium 8.9 mg/dL (8.7-10.3) 02/26/22 08:08 Magnesium 1.9 mg/dL (1.6-2.3) 02/25/22 17:03 02/26/22 08:08 02/26/22 08:08 Assessment and Plan Assessment: 1. End-stage renal disease on hemodialysis on a Monday schedule 2. History of CVA 3. Seizure disorder with breakthrough seizures being followed by neurology 4. CK D mineral bone disorder Plan: hemodialysis in a.m. Antiseizure medications as per neurology DC potassium as potassium was high
[2022-02-27] MEDS: POTASSIUM CHLORIDE ER 20 MEQ TAB.ER PO SCH (09:38)
--- NOTE | 2022-02-27 12:15 | P.PN ---
Subjective Progress Note Date: 02/27/22 The patient is seen at bedside and states that she's doing better. Per the patient's nurse no further seizures. Objective - Vital Signs Vital signs: Vital Signs Temp 98.4 F 02/27/22 08:00 Pulse 81 02/27/22 08:00 Resp 17 02/27/22 02:00 BP 149/73 02/27/22 08:00 Pulse Ox 100 02/27/22 08:00 FiO2 Intake & Output 02/26/22 02/27/22 02/27/22 18:59 06:59 18:59 Intake Total 300 Output Total 800 Balance -500 Intake: Hemodialysis 300 Output: Hemodialysis 800 Other: # Voids 1 2 # Bowel Movements 1 - Exam GENERAL: The patient is lying in bed and is not in acute distress. NEUROLOGICAL: Higher mental function: The patient is awake, alert, oriented to self, stated she was in hospital. She is following simple commands. Some delay in responding. No aphasia and no neglect. Cranial nerves: The pupils are round, equal and reactive to light. Visual reich are full to confrontation throughout. Extraocular movement is intact no nystagmus is noted. Facial sensation is normal to touch throughout. The facial strength is normal throughout. Hearing is mildly decreased bilaterally to hand rub. Tongue is midline and moved [id number] without any difficulty. No dysarthria is noted. Shoulder shrug is normal bilaterally. Motor: The strength is left sided is 3 (old) while right side is lifting above gravity and normal. Slightly decrease tone over the left. Normal bulk. Cerebellum: Normal finger to nose over the right. Sensation: Sensation is normal to touch throughout. Reflexes (right/left): 1+. Plantars are mute bilaterally. - Labs CBC & Chem 7: 02/26/22 08:08 02/26/22 08:08 Labs: Abnormal Lab Results - Last 24 Hours (Table) 02/26/22 Range/Units 08:08 Potassium 6.9 H* (3.5-5.5) mmol/L Carbon Dioxide 27.8 H (20.0-27.5) mmol/L Creatinine 5.8 H (0.6-1.5) mg/dL Est GFR (CKD-EPI)AfAm 8.8 L (60.0-200.0) Est GFR (CKD-EPI)NonAf 7.6 L (60.0-200.0) BUN/Creatinine Ratio 3.22 L (12.00-20.00) Ratio Glucose 127 H (70-110) mg/dL Assessment and Plan Assessment: Breakthrough seizure Long history of epilepsy and is on VNS History of stroke with left hemiparesis Diabetes mellitus End-stage renal disease on dialysis Hypertension Plan: Continue home medication of Keppra 500mg 1 tab bid, Vimpat 150mg 1 tab bid with additional Vimpat on her dialysis days (,W,). I will also add Keppra 500mg 1 tab post dialysis day. I highly recommend to restart patient on Onfi (which we don not have in formulary in hospital. She was on in past by her former neurologist to assess if that was helping but it seems was discontinue with current neurology team). In the mean team, I started on Depakote 250mg 1 tab bi. If Onfi is started as outpatient and is helping with her seizures then can discontinue Depakote (since has a lot of side-effects). Patient is on seizure precaution and seizure pads Continue neuro checks Defer the rest of the medical management to primary team Per the [facility], patient is to avoid driving for 6 month until seizure- free, avoid heights, swimming unassisted and the use any heavy machinery. Upon discharge the patient needs to follow-up with her neurologist (Dr. Ohara's team) as an outpatient for 1-2 weeks regarding her seizures. The plan is discussed with patient's (via phone) and nurse. No additional work-up needed. Will sign off. Please reconsult if any further concerns. Cristhian Luevano M.D. Neuro-hospitalist Time with Patient: Less than 30
[2022-02-28] MEDS: CALCIUM ACETATE 667 MG TAB PO SCH ×3 (08:18→16:16)
[2022-02-28] MEDS: CLOPIDOGREL 75 MG TAB PO SCH (08:18)
[2022-02-28] MEDS: HEPARIN SODIUM,PORCINE/PF 5,000 UNIT/0.5 ML SYRINGE SQ SCH ×2 (08:18→16:16)
[2022-02-28] MEDS: PANTOPRAZOLE 40 MG TABLET PO SCH (08:18)
[2022-02-28] MEDS: amLODIPine 10 MG TAB PO SCH (08:18)
[2022-02-28] MEDS: ATORVASTATIN 40 MG TAB PO SCH (08:18)
[2022-02-28] MEDS: METOPROLOL TARTRATE 25 MG TAB PO SCH (08:18)
[2022-02-28] MEDS: LACOSAMIDE 150 MG TABLET PO SCH (08:18)
[2022-02-28] MEDS: levETIRAcetam 500 MG TAB PO SCH (08:19)
[2022-02-28] MEDS: DIVALPROEX ER 250 MG TAB.ER.24H PO SCH (08:19)
[2022-02-28] MEDS ORDERED: NON FORMULARY DRUG (Dulaglutide [Trulicity] 3 MG/0.5 ML Each) SQ SCH (09:00)
--- NOTE | 2022-02-28 09:36 | P.PN ---
Subjective Patient is seen for follow-up for end-stage renal disease he ate she is maintained on a Monday schedule for hemodialysis. Patient is scheduled for dialysis today. She was admitted with breakthrough seizures post dialysis. Medications have again been adjusted. Patient is being followed by neurology. She does get an extra dose with dialysis. No significant complaints today. Objective - Vital Signs Vital signs: Vital Signs Temp 98.3 F 02/28/22 08:00 Pulse 82 02/28/22 08:00 Resp 14 02/28/22 08:00 BP 159/70 02/28/22 08:00 Pulse Ox 100 02/28/22 08:00 FiO2 Intake & Output 02/27/22 02/28/22 02/28/22 18:59 06:59 18:59 Output Total 300 100 Balance -300 -100 Output: Urine 300 100 Other: # Voids 2 2 # Bowel Movements 1 1 - Exam Patient is awake alert oriented 3 Examination of the heart S1 and S2 Examination lungs bilateral breath sounds are heard Abdomen is soft nontender Examination of the lower extremities shows no evidence of edema exam shows left sided weakness in upper and lower extremities. - Labs CBC & Chem 7: 02/26/22 08:08 02/26/22 08:08 Assessment and Plan Assessment: 1. End-stage renal disease on hemodialysis on a Monday schedule 2. History of CVA with left-sided weakness 3. Seizure disorder with breakthrough seizures being followed by neurology 4. CK D mineral bone disorder Plan: Hemodialysis today continue antiseizure medications as per neurology
--- NOTE | 2022-02-28 11:36 | P.PN ---
Subjective Progress Note Date: 02/27/22 Principal diagnosis: Breakthrough seizures End-stage renal disease/HD 52-year-old female with past medical history remarkable for ESRD on hemodialysis, prior CVA, chest pain, hypertension, memory impairment, seizure disorder presents emergency Department following a seizure. Was seen last night with similar complaint. Discharge home. Was at dialysis today and had another seizure. Presents postictal following that seizure. Currently still somewhat confused. Has no acute complaints at this time. States she completed her hemodialysis. Presents for further evaluation at this time. CBC with differential is unremarkable Chemistry panel is creatinine is 4.10, glucose is 165 the and a chloride is 97 otherwise source of his Chemisty panel is unremarkable CT of the head is reported as no acute intracranial abnormality. Old left dominant lacunar infarct without change. Bilateral ordered inferior cerebellar cortical infarct. 02/27/2022 Patient has been evaluated by neurology and is recommended to continue with cu rrent anti-epileptic therapy regimen --- Continue home medication of Keppra 500mg 1 tab bid, Vimpat 150mg 1 tab bid with additional Vimpat on her dialysis days (M,W,F). Neurology also added Keppra 500mg 1 tab post dialysis day and highly recommend to restart patient on Onfi (which we don not have in formulary in hospital. She was on in past by her former neurologist to assess if that was helping but it seems was discontinue with current neurology team). In the mean team, patient is started on Depakote 250mg 1 tab bi. If Onfi is started as outpatient and is helping with her seizures then can discontinue Depakote (since has a lot of side-effects). Patient is on seizure precaution and seizure pads Continue neuro checks Nephrology on board and patient is scheduled for hemodialysis tomorrow morning Objective - Vital Signs Vital signs: Vital Signs Temp 98.4 F 02/27/22 08:00 Pulse 81 02/27/22 08:00 Resp 17 02/27/22 02:00 BP 149/73 02/27/22 08:00 Pulse Ox 100 02/27/22 08:00 FiO2 Intake & Output 02/26/22 02/27/22 02/27/22 18:59 06:59 18:59 Intake Total 300 Output Total 800 Balance -500 Intake: Hemodialysis 300 Output: Hemodialysis 800 Other: # Voids 1 2 # Bowel Movements 1 - Exam PHYSICAL EXAMINATION: GENERAL: The patient is alert and oriented x3, not in any acute distress. Well developed, well nourished. HEENT: Pupils are round and equally reacting to light. EOMI. No scleral icterus. No conjunctival pallor. Normocephalic, atraumatic. No pharyngeal erythema. No thyromegaly. CARDIOVASCULAR: S1 and S2 present. No murmurs, rubs, or gallops. PULMONARY: Chest is clear to auscultation, no wheezing or crackles. ABDOMEN: Soft, nontender, nondistended, normoactive bowel sounds. No palpable organomegaly. MUSCULOSKELETAL: No joint swelling or deformity. EXTREMITIES: No cyanosis, clubbing, or pedal edema. NEUROLOGICAL: Gross neurological examination did not reveal any focal deficits. SKIN: No rashes. - Labs CBC & Chem 7: 02/26/22 08:08 02/26/22 08:08 Labs: Abnormal Lab Results - Last 24 Hours (Table) 02/26/22 Range/Units 08:08 Potassium 6.9 H* (3.5-5.5) mmol/L Carbon Dioxide 27.8 H (20.0-27.5) mmol/L Creatinine 5.8 H (0.6-1.5) mg/dL Est GFR (CKD-EPI)AfAm 8.8 L (60.0-200.0) Est GFR (CKD-EPI)NonAf 7.6 L (60.0-200.0) BUN/Creatinine Ratio 3.22 L (12.00-20.00) Ratio Glucose 127 H (70-110) mg/dL Assessment and Plan Assessment: 1. Breakthrough seizures - Patient has a long-standing history of epilepsy In the ED the patient was given Ativan 2 mg once when the and was given a load ing dose of Keppra 2 g once. As well as it appears she got a total of 300 mg of Vimpat yesterday in the ED Will restart the patient home medication of Keppra 500mg 1 tab bid, Vimpat 150mg 1 tab bid with additional Vimpat on her dialysis days (,W,). I will also add Keppra 500mg 1 tab post dialysis day. I highly recommend to restart patient on Onfi that she was on in past by her former neurologist to assess if that was helping but it seems was discontinue with current neurology team. In the mean team, I will start on Depakote 250mg 1 tab bi. If Onfi is started as outpatient and is helping with her seizures then can discontinue Depakote (since has a lot of side-effects). Patient is on seizure precaution and seizure pads Continue neuro checks 2. Diabetes mellitus; monitor Accu-Cheks before meals and at bedtime with insulin sliding scale; Trulicity 3 mg subcu every 7 days 3. Hypertension; metoprolol 25 mg twice a day; Norvasc 10 mg daily 4. End-stage renal disease/HD; consult nephrology for hemodialysis; continue with home dose of PhosLo 5. CAD; stable on aspirin, statins, beta blockers and Plavix 6. Hyperlipidemia; Lipitor 40 mg by mouth daily at bedtime DVT prophylaxis; SCDs/subcu heparin CODE STATUS; full code
--- NOTE | 2022-02-28 14:57 | P.DS ---
Providers Date of admission: 02/25/22 18:55 Expected date of discharge: 02/28/22 Attending physician: Francine Acosta MD Consults: 02/25/22 18:53 Consult Physician Routine Consulting Provider: Cristhian Luevano Consult Reason/Comments: multiple breakthrough seizures, post ictal Do you want consulting provider notified?: Yes, Notify in am 02/25/22 19:46 Consult Physician Routine Consulting Provider: Martínez Mcgovern Consult Reason/Comments: ESRD/HD Do you want consulting provider notified?: Yes Primary care physician: Stated None Hospital Course: 52-year-old female with past medical history remarkable for ESRD on hemodialysis, prior CVA, chest pain, hypertension, memory impairment, seizure disorder presents emergency Department following a seizure. Was seen last night with similar complaint. Discharge home. Was at dialysis today and had another seizure. Presents postictal following that seizure. Currently still somewhat confused. Has no acute complaints at this time. States she completed her hemodialysis. Presents for further evaluation at this time. CBC with differential is unremarkable Chemistry panel is creatinine is 4.10, glucose is 165 the and a chloride is 97 otherwise source of his Chemisty panel is unremarkable CT of the head is reported as no acute intracranial abnormality. Old left dominant lacunar infarct without change. Bilateral ordered inferior cerebellar cortical infarct. 02/27/2022 Patient has been evaluated by neurology and is recommended to continue with current anti-epileptic therapy regimen --- Continue home medication of Keppra 500mg 1 tab bid, Vimpat 150mg 1 tab bid with additional Vimpat on her dialysis days (M,W,F). Neurology also added Keppra 500mg 1 tab post dialysis day and highly recommend to restart patient on Onfi (which we don not have in formulary in hospital. She was on in past by her former neurologist to assess if that was helping but it seems was discontinue with current neurology team). In the mean team, patient is started on Depakote 250mg 1 tab bi. If Onfi is started as outpatient and is helping with her seizures then can discontinue Depakote (since has a lot of side-effects). Patient is on seizure precaution and seizure pads Continue neuro checks Nephrology on board and patient is scheduled for hemodialysis tomorrow morning 02/28/2022 Patient is stable for discharge after hemodialysis Patient Condition at Discharge: Stable Plan - Discharge Summary Discharge Rx Participant: No New Discharge Prescriptions: New Divalproex ER [Depakote ER] 250 mg PO BID 30 Days #60 tab levETIRAcetam [Keppra] 500 mg PO MoWeFr@1600 30 Days #15 tab Continue amLODIPine [Norvasc] 10 mg PO DAILY #30 tab Clopidogrel [Plavix] 75 mg PO DAILY #30 tab Atorvastatin [Lipitor] 40 mg PO DAILY Vascepa 1gm 1 gm PO BID Sevelamer [Renvela] 800 - 1,600 mg PO DIRECTED Lacosamide [Vimpat] 150 mg PO DIRECTED Calcium Acetate 2,001 mg PO TID-W/MEALS Pantoprazole [Protonix] 40 mg PO DAILY Potassium Chloride ER [K-Dur 20] 20 meq PO BID Dulaglutide [Trulicity] 3 mg SQ Q7D Lacosamide [Vimpat] 150 mg PO DIRECTED levETIRAcetam [Keppra] 500 mg PO BID Metoprolol Tartrate [Lopressor] 25 mg PO BID Discharge Medication List Clopidogrel [Plavix] 75 mg PO DAILY #30 tab 09/05/20 [Rx] amLODIPine [Norvasc] 10 mg PO DAILY #30 tab 09/05/20 [Rx] Atorvastatin [Lipitor] 40 mg PO DAILY 03/23/21 [History] Dulaglutide [Trulicity] 3 mg SQ Q7D 03/23/21 [History] Lacosamide [Vimpat] 150 mg PO DIRECTED 03/23/21 [History] Lacosamide [Vimpat] 150 mg PO DIRECTED 03/23/21 [History] Sevelamer [Renvela] 800 - 1,600 mg PO DIRECTED 03/23/21 [History] Vascepa 1gm 1 gm PO BID 03/23/21 [History] Calcium Acetate 2,001 mg PO TID-W/MEALS 02/25/22 [History] Metoprolol Tartrate [Lopressor] 25 mg PO BID 02/25/22 [History] Pantoprazole [Protonix] 40 mg PO DAILY 02/25/22 [History] Potassium Chloride ER [K-Dur 20] 20 meq PO BID 02/25/22 [History] levETIRAcetam [Keppra] 500 mg PO BID 02/25/22 [History] Divalproex ER [Depakote ER] 250 mg PO BID 30 Days #60 tab 02/28/22 [Rx] levETIRAcetam [Keppra] 500 mg PO MoWeFr@1600 30 Days #15 tab 02/28/22 [Rx] Follow up Appointment(s)/Referral(s): None,Stated [Primary Care Provider] - 1 Week Patient Instructions/Handouts: Seizure/Epilepsy Discharge Instructions & Follow-Up Discharge Disposition: HOME SELF-CARE
[2022-02-28 15:43] VITALS: RESP 16
[2022-02-28] MEDS ORDERED: levETIRAcetam 500 MG TAB PO SCH (16:00)
[2022-02-28] MEDS ORDERED: LACOSAMIDE 150 MG TABLET PO SCH (16:00)
[2022-02-28 18:37] VITALS: BP 143/76; PULSE 84; TEMP 98.9
== END 2022-02-28 18:47 | disposition home or self-care (01) | DRG 100 ==
LOC: EC 16:01 → 4SSUR 18:55
PROVIDERS: ADMIT Internal Medicine; ATTEND Internal Medicine
PROC: 5A1D70Z Performance of Urinary Filtration, Intermittent, Less than 6 Hours Per Day (ICD-10-PCS; principal; 2022-02-26)
DX: G40.909 Epilepsy, unspecified, not intractable, without status epilepticus (principal); N18.6 End stage renal disease; I12.0 Hypertensive chronic kidney disease with stage 5 chronic kidney disease or end stage renal disease; I69.354 Hemiplegia and hemiparesis following cerebral infarction affecting left non-dominant side; E11.22 Type 2 diabetes mellitus with diabetic chronic kidney disease; M19.90 Unspecified osteoarthritis, unspecified site; K21.9 Gastro-esophageal reflux disease without esophagitis; M89.9 Disorder of bone, unspecified; F03.90 Unspecified dementia, unspecified severity, without behavioral disturbance, psychotic disturbance, mood disturbance, and anxiety; I25.10 Atherosclerotic heart disease of native coronary artery without angina pectoris; E78.5 Hyperlipidemia, unspecified; Z79.899 Other long term (current) drug therapy; Z79.02 Long term (current) use of antithrombotics/antiplatelets; Z87.891 Personal history of nicotine dependence; Z99.2 Dependence on renal dialysis; Z88.0 Allergy status to penicillin; Z95.818 Presence of other cardiac implants and grafts; Z96.82 Presence of neurostimulator; Z79.84 Long term (current) use of oral hypoglycemic drugs
CPT/HCPCS: 36415; 70450; 80048; 80053; 80320; 83735; 85025; 90935; 93005; 96365; 96375; 99285

== ENCOUNTER 2022-04-29 15:57 | Observation (INO) | payer MEDICARE, OTHER ==
[2022-04-29 16:06] VITALS: RESP 18; TEMP 98.1
--- NOTE | 2022-04-29 16:16 | ED ---
General Adult HPI - General Chief complaint: Seizure Stated complaint: Seizure Time Seen by Provider: 04/29/22 16:06 Source: patient, EMS, RN notes reviewed Mode of arrival: EMS Limitations: altered mental status - History of Present Illness Initial comments: Patient is a pleasant 52-year-old female presenting to the emergency department for reported seizure. Patient states she does get frequent seizures, couple per week. Patient states she feels tired and fatigued at this time, similar to previous seizures. Patient denies missing medications or recent illness. Patient did have dialysis today. She denies any injury - Related Data Home Medications Medication Instructions Recorded Confirmed Atorvastatin [Lipitor] 40 mg PO DAILY 03/23/21 02/25/22 Dulaglutide [Trulicity] 3 mg SQ Q7D 03/23/21 02/25/22 Lacosamide [Vimpat] 150 mg PO DIRECTED 03/23/21 02/25/22 Lacosamide [Vimpat] 150 mg PO DIRECTED 03/23/21 02/25/22 Sevelamer [Renvela] 800 - 1,600 mg PO DIRECTED 03/23/21 02/25/22 Vascepa 1gm 1 gm PO BID 03/23/21 02/25/22 Calcium Acetate 2,001 mg PO TID-W/MEALS 02/25/22 02/25/22 Metoprolol Tartrate [Lopressor] 25 mg PO BID 02/25/22 02/25/22 Pantoprazole [Protonix] 40 mg PO DAILY 02/25/22 02/25/22 Potassium Chloride ER [K-Dur 20] 20 meq PO BID 02/25/22 02/25/22 levETIRAcetam [Keppra] 500 mg PO BID 02/25/22 02/25/22 Previous Rx's Medication Instructions Recorded Clopidogrel [Plavix] 75 mg PO DAILY #30 tab 09/05/20 amLODIPine [Norvasc] 10 mg PO DAILY #30 tab 09/05/20 Divalproex ER [Depakote ER] 250 mg PO BID 30 Days #60 tab 02/28/22 levETIRAcetam [Keppra] 500 mg PO MoWeFr@1600 30 Days #15 02/28/22 tab Allergies Allergy/AdvReac Type Severity Reaction Status Date / Time Penicillins Allergy Itching Verified 04/29/22 16:06 Review of Systems ROS Statement: Those systems with pertinent positive or pertinent negative responses have been documented in the HPI. ROS Other: All systems not noted in ROS Statement are negative. Constitutional: Denies: fever Eyes: Denies: eye pain ENT: Denies: ear pain Respiratory: Denies: cough Cardiovascular: Denies: chest pain Endocrine: Denies: fatigue Gastrointestinal: Denies: abdominal pain Genitourinary: Denies: dysuria Musculoskeletal: Denies: back pain Skin: Denies: rash Neurological: Denies: headache Past Medical History Past Medical History: Chest Pain / Angina, CVA/TIA, Diabetes Mellitus, GERD/Reflux, Hyperlipidemia, Hypertension, Memory Impairment, Osteoarthritis (OA), Renal Disease, Seizure Disorder, Thyroid Disorder Additional Past Medical History / Comment(s): Last seizure approximately one month ago. Spouse states she used to have seizures 4X per week until she had vagal nerve stimulator placed, now has seizures approximately once a week to once a month. Dialysis MOWEFR. Neuropathy, left drop foot, only able to walk short distances, otherwise uses wheelchair. 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 Never diagnosed with Sleep Apnea but spouse states she does stop breathing through the night and he has to shake her to start breathing again. Varicose veins. History of Any Multi-Drug Resistant Organisms: None Reported Past Surgical History: Section, Tonsillectomy, Uterine Ablation Additional Past Surgical History / Comment(s): Left arm fistula, loop recorder, vagus nerve stimulator. Past Anesthesia/Blood Transfusion Reactions: Motion Sickness Additional Past Anesthesia/Blood Transfusion Reaction / Comment(s): Family hx unknown, pt adopted. Past Psychological History: Bipolar Smoking Status: Former smoker Past Alcohol Use History: None Reported Past Drug Use History: None Reported - Past Family History Father Family Medical History: Unable to Obtain Additional Family Medical History / Comment(s): Pt adopted. General Exam Limitations: no limitations General appearance: alert, in no apparent distress Head exam: Present: normocephalic Eye exam: Present: normal appearance, PERRL, EOMI ENT exam: Present: normal oropharynx Neck exam: Present: normal inspection. Absent: tenderness, meningismus Respiratory exam: Present: normal lung sounds bilaterally Cardiovascular Exam: Present: regular rate, normal rhythm GI/Abdominal exam: Present: soft. Absent: tenderness Neurological exam: Present: alert, CN II-XII intact. Absent: motor sensory deficit Expanded Neurological exam: Present: protecting the airway Patient oriented to: Present: person. Absent: place, time Motor strength exam: RUE: 5, LUE: 5, RLE: 5, LLE: 5 Eye Response: (4) open spontaneously Motor Response: (6) obeys commands Verbal Response: (4) confused conversation Psychiatric exam: Present: flat affect Skin exam: Present: normal color Course Vital Signs 04/29/22 15:59 Temperature 98.1 F Pulse Rate 110 H Respiratory 18 Rate Blood Pressure 174/84 O2 Sat by Pulse 96 Oximetry EKG Findings - EKG Comments: EKG Findings:: Sinus rhythm 92. MI 168. QRS 94. QT 389. QTC 439. Normal axis. Normal QRS. No acute ST change. Medical Decision Making - Medical Decision Making Patient reevaluated and still postictal. Limited speech and unable to walk. Case discussed with Dr. kathleen, who will admit covering hospital observation call - Lab Data Result diagrams: 04/29/22 16:21 04/29/22 16:21 Lab Results 04/29/22 04/29/22 Range/Units 16:21 16:21 WBC 9.6 (3.8-10.6) k/uL RBC 4.46 (3.80-5.40) m/uL Hgb 12.6 (11.4-16.0) gm/dL Hct 37.4 (34.0-46.0) % MCV 84.1 (80.0-100.0) fL MCH 28.3 (25.0-35.0) pg MCHC 33.6 (31.0-37.0) g/dL RDW 14.6 (11.5-15.5) % Plt Count 224 (150-450) k/uL MPV 9.4 Neutrophils % 82 % Lymphocytes % 12 % Monocytes % 4 % Eosinophils % 1 % Basophils % 1 % Neutrophils # 7.8 H (1.3-7.7) k/uL Lymphocytes # 1.1 (1.0-4.8) k/uL Monocytes # 0.4 (0-1.0) k/uL Eosinophils # 0.1 (0-0.7) k/uL Basophils # 0.1 (0-0.2) k/uL Sodium 138 (137-145) mmol/L Potassium 3.6 (3.5-5.1) mmol/L Chloride 90 L (98-107) mmol/L Carbon Dioxide 32 H (22-30) mmol/L Anion Gap 16 mmol/L BUN 21 H (7-17) mg/dL Creatinine 4.14 H (0.52-1.04) mg/dL Est GFR (CKD-EPI)AfAm 13 (>60 ml/min/1.73 sqM) Est GFR (CKD-EPI)NonAf 12 (>60 ml/min/1.73 sqM) Glucose 240 H (74-99) mg/dL Calcium 9.8 (8.4-10.2) mg/dL Magnesium 2.2 (1.6-2.3) mg/dL Total Bilirubin 0.5 (0.2-1.3) mg/dL AST 18 (14-36) U/L ALT 15 (4-34) U/L Alkaline Phosphatase 187 H (38-126) U/L Total Protein 8.2 (6.3-8.2) g/dL Albumin 4.9 (3.5-5.0) g/dL Valproic Acid <10.0 ug/mL Disposition Clinical Impression: Seizure, Postictal state Disposition: ADMITTED IP TO THIS HOSP Is patient prescribed a controlled substance at d/c from ED?: No Referrals: None,Stated [Primary Care Provider] - 1-2 days Time of Disposition: 20:47
[2022-04-29 18:16] LABS: Basophils # (A) 0.1 k/uL (0-0.2); Basophils % (A) 1 %; Eosinophils # (A) 0.1 k/uL (0-0.7); Eosinophils % (A) 1 %; HCT 37.4 % (34.0-46.0); HGB 12.6 gm/dL (11.4-16.0); Lymphocytes # (A) 1.1 k/uL (1.0-4.8); Lymphocytes % (A) 12 %; MCH 28.3 pg (25.0-35.0); MCHC 33.6 g/dL (31.0-37.0); MCV 84.1 fL (80.0-100.0); Mean Platelet Volume 9.4; Monocytes # (A) 0.4 k/uL (0-1.0); Monocytes % (A) 4 %; Neutrophils # (A) 7.8 k/uL (1.3-7.7); Neutrophils % (A) 82 %; Platelet Count 224 k/uL (150-450); RBC 4.46 m/uL (3.80-5.40); RDW 14.6 % (11.5-15.5); WBC 9.6 k/uL (3.8-10.6)
[2022-04-29 18:22] LABS: ALT 15 U/L (4-34); AST 18 U/L (14-36); African American GFR (CKD) 13 (>60 ml/min/1.73 sqM); Albumin 4.9 g/dL (3.5-5.0); Alkaline Phosphatase 187 U/L (38-126); Anion Gap 16 mmol/L; Blood Urea Nitrogen 21 mg/dL (7-17); Calcium 9.8 mg/dL (8.4-10.2); Carbon Dioxide 32 mmol/L (22-30); Chloride 90 mmol/L (98-107); Glucose 240 mg/dL (74-99); Magnesium 2.2 mg/dL (1.6-2.3); Non-African American GFR(CKD) 12 (>60 ml/min/1.73 sqM); Potassium 3.6 mmol/L (3.5-5.1); Sodium 138 mmol/L (137-145); Total Bilirubin 0.5 mg/dL (0.2-1.3); Total Protein 8.2 g/dL (6.3-8.2)
[2022-04-29 18:27] LABS: Valproic Acid (Depakene) <10.0 ug/mL
[2022-04-29] MEDS ORDERED: levETIRAcetam IV 1,000 MG in SALINE 1 100ML.BAG IVPB STA (18:58)
[2022-04-29] MEDS ORDERED: LORazepam 0.5 MG TAB PO PRN (20:48)
[2022-04-29] MEDS ORDERED: NALOXONE 0.4 MG/ML 1 ML VIAL IV PRN (20:48)
[2022-04-29] MEDS ORDERED: LORazepam 2 MG/ML INJ IV PRN (20:50)
[2022-04-29] MEDS: levETIRAcetam 500 MG TAB PO SCH (22:22)
--- NOTE | 2022-04-30 03:46 | P.HPIM ---
History of Present Illness H&P Date: 04/29/22 Patient is a 52-year-old female with an extensive PMH including type II DM, ESRD on hemodialysis, CVA, hypertension, hyperlipidemia, and seizure disorder who had presented to the emergency room after reported seizure. History supplemented by the ED physician and the chart due to patient's postictal state. The patient reports that she routinely has seizures a few times a week, and that she had one earlier today. Does not recall the events prior to the episode but states that her activated EMS after he found her on the ground. She reported having her dialysis as per usual earlier today. The patient reports compliance with her antiseizure medications, although the history was limited. Attempted to contact the via the phone number on the chart with no response. The patient reported feeling tired at the time of interview but denied any additional complaints patient is not experiencing headaches, visual disturbances, nausea, vomiting. Denied fever, chills, cough. Laboratory evaluation in the emergency room revealed a BUN of 21, creatinine 4.14, glucose of 40, and a valproic acid level of less than 10. Review of systems: Pertinent positives and negatives as discussed in HPI, a complete review of systems was performed and all other systems are negative. Physical examination: General: non toxic, no distress, appears at stated age, overweight Derm: no unusual rashes/lesions, warm Head: atraumatic, normocephalic, symmetric Eyes: EOMI, no lid lag, anicteric sclera, pupils equal round reactive to light ENT: Nose and ears atraumatic Neck: No cervical lymphadenopathy, trachea midline, supple Mouth: no lip lesion, mucus membranes moist Cardiovascular: S1S2 reg, no murmur, positive dorsalis pedis pulse bilateral, no edema, left antecubital fossa dialysis graft noted Lungs: CTA bilateral, no rhonchi, no rales, no accessory muscle use Abdominal: soft, nontender to palpation, no guarding Ext: muscle strength 4 out of 5 in all 4 extremities grossly, no gross muscle atrophy, no contractures, Neuro: CN II-XI grossly intact, no gross focal neuro deficits Psych: Slow to respond, oriented to person and place only, not oriented to time Assessment/plan Seizure, suspect secondary to noncompliance -Patient's Depakote level was undetectable -Obtain Keppra levels -Continue with home antiepileptics -Neurology consulted -Fall precautions Chronic conditions: Type II DM, ESRD, hypertension, hyperlipidemia -Patient's next dialysis session due on Monday -Insulin sliding scale and blood glucose monitoring -Continue the remaining home medications DVT prophylaxis -Heparin subcu The patient is admitted with an anticipated less than 2 midnight stay for evaluation of seizure. CODE STATUS: Full Code Discussed with: Patient Anticipated discharge date: In the a.m. Anticipated discharge place: Home Past Medical History Past Medical History: Chest Pain / Angina, CVA/TIA, Diabetes Mellitus, GERD/Ref lux, Hyperlipidemia, Hypertension, Memory Impairment, Osteoarthritis (OA), Renal Disease, Seizure Disorder, Thyroid Disorder Additional Past Medical History / Comment(s): Last seizure approximately one month ago. Spouse states she used to have seizures 4X per week until she had vagal nerve stimulator placed, now has seizures approximately once a week to once a month. Dialysis MOWEFR. Neuropathy, left drop foot, only able to walk short distances, otherwise uses wheelchair. 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 Never diagnosed with Sleep Apnea but spouse states she does stop breathing through the night and he has to shake her to start breathing again. Varicose veins. History of Any Multi-Drug Resistant Organisms: None Reported Past Surgical History: Section, Tonsillectomy, Uterine Ablation Additional Past Surgical History / Comment(s): Left arm fistula, loop recorder, vagus nerve stimulator. Past Anesthesia/Blood Transfusion Reactions: Motion Sickness Additional Past Anesthesia/Blood Transfusion Reaction / Comment(s): Family hx unknown, pt adopted. Past Psychological History: Bipolar Smoking Status: Former smoker Past Alcohol Use History: None Reported Past Drug Use History: None Reported - Past Family History Father Family Medical History: Unable to Obtain Additional Family Medical History / Comment(s): Pt adopted. Medications and Allergies Home Medications Medication Instructions Recorded Confirmed Type Clopidogrel [Plavix] 75 mg PO DAILY #30 tab 09/05/20 04/29/22 Rx amLODIPine [Norvasc] 10 mg PO DAILY #30 tab 09/05/20 04/29/22 Rx Atorvastatin [Lipitor] 40 mg PO HS 03/23/21 04/29/22 History Dulaglutide [Trulicity] 3 mg SQ Q7D 03/23/21 04/29/22 History Lacosamide [Vimpat] 150 mg PO MOWEFR@07,14,21 03/23/21 04/29/22 History Lacosamide [Vimpat] 150 mg PO SUTUFRSA@0700,2100 03/23/21 04/29/22 History Sevelamer [Renvela] 800 mg PO BID-W/MEALS 03/23/21 04/29/22 History Vascepa 1gm 1 gm PO BID 03/23/21 04/29/22 History Calcium Acetate 2,001 mg PO TID-W/MEALS 02/25/22 04/29/22 History Metoprolol Tartrate [Lopressor] 25 mg PO BID 02/25/22 04/29/22 History Pantoprazole [Protonix] 40 mg PO DAILY 02/25/22 04/29/22 History Potassium Chloride ER [K-Dur 20] 20 meq PO BID 02/25/22 04/29/22 History levETIRAcetam [Keppra] 500 mg PO BID@0700,2100 02/25/22 04/29/22 History Divalproex ER [Depakote ER] 250 mg PO BID 30 Days #60 tab 02/28/22 04/29/22 Rx levETIRAcetam [Keppra] 500 mg PO MoWeFr@1600 30 Days #15 02/28/22 04/29/22 Rx tab Sevelamer [Renvela] 1,600 mg PO W/SUPPER 04/29/22 04/29/22 History hydrALAZINE HCL [Apresoline] 50 mg PO BID 04/29/22 04/29/22 History Allergies Allergy/AdvReac Type Severity Reaction Status Date / Time Penicillins Allergy Itching Verified 04/29/22 16:06 Physical Exam Vitals: Vital Signs Temp Pulse Resp BP Pulse Ox 04/29/22 15:59 98.1 F 110 H 18 174/84 96 Intake and Output 04/29/22 04/29/22 04/29/22 06:59 14:59 22:59 Other: Weight 74.843 kg Results CBC & Chem 7: 04/29/22 16:21 04/29/22 16:21 Labs: Abnormal Lab Results - Last 24 Hours (Table) 04/29/22 04/29/22 Range/Units 16:21 16:21 Neutrophils # 7.8 H (1.3-7.7) k/uL Chloride 90 L (98-107) mmol/L Carbon Dioxide 32 H (22-30) mmol/L BUN 21 H (7-17) mg/dL Creatinine 4.14 H (0.52-1.04) mg/dL Glucose 240 H (74-99) mg/dL Alkaline Phosphatase 187 H (38-126) U/L
--- NOTE | 2022-04-30 04:56 | CT ---
EXAMINATION TYPE: CT brain wo con DATE OF EXAM: 04/30/2022 COMPARISON: 02/25/2022 HISTORY: seizure, ams CT DLP: 1113.9 mGycm Automated exposure control for dose reduction was used. Images of the brain obtained with no contrast. There is some mild cerebral atrophy. There is 1.5 cm irregular area of decreased density in the anter ior left thalamus and consistent with old lacunar infarct. There is no mass effect or midline shift. No sign of intracranial hemorrhage. Calvarium is intact. The skull base is intact. There is normal ae ration of the mastoid sinuses. There is 2 cm areas of decreased cortical density in the inferior late ral cerebellar hemispheres. IMPRESSION: Cerebral atrophy. Old lacunar infarct anterior left thalamus. Old bilateral cerebellar cortical infar cts. No acute intracranial abnormality. No change.
[2022-04-30] MEDS ORDERED: LACOSAMIDE 150 MG TABLET PO SCH (07:00)
[2022-04-30] MEDS ORDERED: PANTOPRAZOLE 40 MG TABLET PO SCH (07:30)
[2022-04-30] MEDS ORDERED: SEVELAMER 800 MG TAB PO SCH ×2 (07:30→17:30)
[2022-04-30] MEDS ORDERED: INSULIN ASPART (NovoLOG) 100 UNIT/ML VIAL SQ SCH (07:30)
[2022-04-30 07:34] LABS: Glucose,Whole Blood 134 mg/dL (70-110)
[2022-04-30] MEDS ORDERED: HEPARIN SODIUM,PORCINE/PF 5,000 UNIT/0.5 ML SYRINGE SQ SCH (08:00)
[2022-04-30] MEDS: levETIRAcetam 500 MG TAB PO SCH (08:20)
[2022-04-30 08:26] VITALS: BP 156/86; PULSE 78
[2022-04-30] MEDS ORDERED: POTASSIUM CHLORIDE ER 20 MEQ TAB.ER PO SCH (09:00)
[2022-04-30] MEDS ORDERED: METOPROLOL TARTRATE 25 MG TAB PO SCH (09:00)
[2022-04-30] MEDS ORDERED: amLODIPine 10 MG TAB PO SCH (09:00)
[2022-04-30] MEDS ORDERED: DIVALPROEX ER 250 MG TAB.ER.24H PO SCH (09:00)
[2022-04-30] MEDS ORDERED: CLOPIDOGREL 75 MG TAB PO SCH (09:00)
[2022-04-30] MEDS ORDERED: hydrALAZINE HCL 50 MG TAB PO SCH (09:00)
--- NOTE | 2022-04-30 12:36 | P.CNNES ---
History of Present Illness Consult date: 04/30/22 Requesting physician: Favio Mead Reason for Consult: Seizure, postictal History of Present Illness: Patient is a 52-year-old female came to the hospital by ambulance yesterday at 3:57 PM Per EMS flow sheet, it was mentioned that patient completed treatment for dialysis and was being discharged when she getting onto the bus and she appeared to have an approximate 1 minute grand mal seizure. Patient was taken back into dialysis Center and vitals were obtained. Patient was postictal at the time of EMS arrival. Patient started becoming more alert. No trauma noted. Patient's blood pressure was 164/85, pulse rate 109, respirations 17, saturation 98%. Blood sugar 160. Vital signs on arrival blood pressure 174/84 pulse rate 110 and temperature 98.1. Blood test shows normal CBC, normal electrolytes, BUN 21, creatinine 4.14. Hepatic panel is normal, Depakote level <10. CT head showed cerebral atrophy. Old lacunar infarct anterior left thalamus. Old bilateral cerebellar cortical infarcts. No acute intracranial abnormality. No change. I personally reviewed CT head, agree with the findings except the left sided lacune involves the left internal capsule rather than thalamus. EKG shows sinus rhythm. Patient has been seen by neurology service multiple times, and by myself on 12/27/2019. She has long-standing history of seizure disorder and had presented with breakthrough seizure at that time as well. She has history of CVA with left hemiparesis. She is on hemodialysis for ESRD, diabetes hypertension. At that time she was taking Vimpat 100 mg twice a day with extra 100 mg post dialysis Monday. Patient was also on Keppra 500 mg twice a day. She was supposed to take extra: 50 mg post dialysis every Monday. Patient was on Plavix and Lipitor. Patient's most recently seen by Dr. Cristhian Luevano on 02/26/2022 for multiple breakthrough seizures, postictal period. It appears patient was on Vimpat 150 mg twice a day, Keppra 500 mg twice a day and extra one tablet postdialysis Monday. Dr. Luevano started her on Depakote 250 mg twice a day. Her current home medication list states the same as above. Dr. Luevano has recommended for patient to be started on Onfi as an outpatient. Past Medical History Past Medical History: Chest Pain / Angina, CVA/TIA, Diabetes Mellitus, GERD/Reflux, Hyperlipidemia, Hypertension, Memory Impairment, Osteoarthritis (OA), Renal Disease, Seizure Disorder, Thyroid Disorder Additional Past Medical History / Comment(s): Last seizure approximately one month ago. Spouse states she used to have seizures 4X per week until she had vagal nerve stimulator placed, now has seizures approximately once a week to once a month. Dialysis MOWEFR. Neuropathy, left drop foot, only able to walk short distances, otherwise uses wheelchair. 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 Never diagnosed with Sleep Apnea but spouse states she does stop breathing through the night and he has to shake her to start breathing again. Varicose veins. History of Any Multi-Drug Resistant Organisms: None Reported Past Surgical History: Section, Tonsillectomy, Uterine Ablation Additional Past Surgical History / Comment(s): Left arm fistula, loop recorder, vagus nerve stimulator. Past Anesthesia/Blood Transfusion Reactions: Motion Sickness Additional Past Anesthesia/Blood Transfusion Reaction / Comment(s): Family hx unknown, pt adopted. Past Psychological History: Bipolar Smoking Status: Former smoker Past Alcohol Use History: None Reported Past Drug Use History: None Reported - Past Family History Father Family Medical History: Unable to Obtain Additional Family Medical History / Comment(s): Pt adopted. Medications and Allergies Home Medications Medication Instructions Recorded Confirmed Type Clopidogrel [Plavix] 75 mg PO DAILY #30 tab 09/05/20 04/29/22 Rx amLODIPine [Norvasc] 10 mg PO DAILY #30 tab 09/05/20 04/29/22 Rx Atorvastatin [Lipitor] 40 mg PO HS 03/23/21 04/29/22 History Dulaglutide [Trulicity] 3 mg SQ Q7D 03/23/21 04/29/22 History Lacosamide [Vimpat] 150 mg PO MOWEFR@07,14,21 03/23/21 04/29/22 History Lacosamide [Vimpat] 150 mg PO SUTUFRSA@0700,2100 03/23/21 04/29/22 History Sevelamer [Renvela] 800 mg PO BID-W/MEALS 03/23/21 04/29/22 History Vascepa 1gm 1 gm PO BID 03/23/21 04/29/22 History Calcium Acetate 2,001 mg PO TID-W/MEALS 02/25/22 04/29/22 History Metoprolol Tartrate [Lopressor] 25 mg PO BID 02/25/22 04/29/22 History Pantoprazole [Protonix] 40 mg PO DAILY 02/25/22 04/29/22 History Potassium Chloride ER [K-Dur 20] 20 meq PO BID 02/25/22 04/29/22 History levETIRAcetam [Keppra] 500 mg PO BID@0700,2100 02/25/22 04/29/22 History Divalproex ER [Depakote ER] 250 mg PO BID 30 Days #60 tab 02/28/22 04/29/22 Rx levETIRAcetam [Keppra] 500 mg PO MoWeFr@1600 30 Days #15 02/28/22 04/29/22 Rx tab Sevelamer [Renvela] 1,600 mg PO W/SUPPER 04/29/22 04/29/22 History hydrALAZINE HCL [Apresoline] 50 mg PO BID 04/29/22 04/29/22 History Allergies Allergy/AdvReac Type Severity Reaction Status Date / Time Penicillins Allergy Itching Verified 04/29/22 16:06 Physical Examination - Vital Signs Vital Signs: Vital Signs Temp Pulse Resp BP Pulse Ox 04/30/22 08:20 78 18 156/86 99 04/29/22 15:59 98.1 F 110 H 18 174/84 96 Intake and Output 04/29/22 04/30/22 04/30/22 22:59 06:59 14:59 Other: Weight 74.843 kg Results - Laboratory Findings CBC and BMP: 04/29/22 16:21 04/29/22 16:21 Abnormal Lab Findings: Abnormal Labs 04/29/22 04/29/22 04/30/22 16:21 16:21 07:32 Neutrophils # 7.8 H Chloride 90 L Carbon Dioxide 32 H BUN 21 H Creatinine 4.14 H Glucose 240 H POC Glucose (mg/dL) 134 H Alkaline Phosphatase 187 H Assessment and Plan Plan: Came to see patient after reviewing chart as above. Patient apparently has signed out AMA before she could be seen. Consult canceled.
--- NOTE | 2022-04-30 13:00 | P.DS ---
Providers Date of admission: 04/29/22 20:48 Expected date of discharge: 04/30/22 Attending physician: Leonor Marti MD Consults: 04/29/22 20:48 Consult Physician Routine Consulting Provider: Naheed Sosa Consult Reason/Comments: seizure, post ictal Do you want consulting provider notified?: Yes Primary care physician: Stated None Hospital Course: Discharge Diagnosis: Seizure, suspect secondary to noncompliance Type II DM ESRD hypertension hyperlipidemia Hospital Course: Patient is a 52-year-old female with an extensive PMH including type II DM, ESRD on hemodialysis, CVA, hypertension, hyperlipidemia, and seizure disorder who had presented to the emergency room after reported seizure. History supplemented by the ED physician and the chart due to patient's postictal state. The patient reports that she routinely has seizures a few times a week, and that she had one earlier today. Does not recall the events prior to the episode but states that her activated EMS after he found her on the ground. She reported having her dialysis as per usual earlier today. The patient reports compliance with her antiseizure medications, although the history was limited. Attempted to contact the via the phone number on the chart with no response. The patient reported feeling tired at the time of interview but denied any additional complaints patient is not experiencing headaches, visual disturbances, nausea, vomiting. Denied fever, chills, cough. Laboratory evaluation in the emergency room revealed a BUN of 21, creatinine 4.14, glucose of 40, and a valproic acid level of less than 10. The patient was admitted and he neurology service were consulted although she continued to request to be discharged we talked with her about safety concerns regarding discharge without being seen by the neurologist and she continued to insist on leaving AMA. Patient seen and examined at bedside. Vital signs reviewed and stable. General: [nontoxic], [no distress], [appears at stated age] Derm: [warm], [dry] Head: [atraumatic], [normocephalic], [symmetric] Eyes: [EOMI], [no lid lag], [anicteric sclera] Mouth: [no lip lesion], [mucus membranes moist] Cardiovascular: [S1S2 reg], [no murmur] Lungs: [CTA bilateral], [no rhonchi, no rales] , [no accessory muscle use] Abdominal: [soft], [ nontender to palpation], [no guarding], [no appreciable organomegaly] Ext: [no gross muscle atrophy], [no edema], [no contractures] Neuro: [ CN II-XI grossly intact], [no focal neuro deficits] Psych: [Alert], [oriented], [appropriate affect] A total of 50 minutes of time were spent preparing this complex discharge summary. Patient Condition at Discharge: Undetermined Plan - Discharge Summary New Discharge Prescriptions: Continue amLODIPine [Norvasc] 10 mg PO DAILY #30 tab Clopidogrel [Plavix] 75 mg PO DAILY #30 tab Atorvastatin [Lipitor] 40 mg PO HS Vascepa 1gm 1 gm PO BID Sevelamer [Renvela] 800 mg PO BID-W/MEALS Lacosamide [Vimpat] 150 mg PO SUTUFRSA@0700,2100 Calcium Acetate 2,001 mg PO TID-W/MEALS Pantoprazole [Protonix] 40 mg PO DAILY Potassium Chloride ER [K-Dur 20] 20 meq PO BID Sevelamer [Renvela] 1,600 mg PO W/SUPPER Dulaglutide [Trulicity] 3 mg SQ Q7D Lacosamide [Vimpat] 150 mg PO MOWEFR@,, levETIRAcetam [Keppra] 500 mg PO BID@0700,2100 Metoprolol Tartrate [Lopressor] 25 mg PO BID Divalproex ER [Depakote ER] 250 mg PO BID 30 Days #60 tab levETIRAcetam [Keppra] 500 mg PO MoWeFr@1600 30 Days #15 tab hydrALAZINE HCL [Apresoline] 50 mg PO BID Discharge Medication List Clopidogrel [Plavix] 75 mg PO DAILY #30 tab 09/05/20 [Rx] amLODIPine [Norvasc] 10 mg PO DAILY #30 tab 09/05/20 [Rx] Atorvastatin [Lipitor] 40 mg PO HS 03/23/21 [History] Dulaglutide [Trulicity] 3 mg SQ Q7D 03/23/21 [History] Lacosamide [Vimpat] 150 mg PO MOWEFR@,,03/23/21 [History] Lacosamide [Vimpat] 150 mg PO SUTUFRSA@0700,2100 03/23/21 [History] Sevelamer [Renvela] 800 mg PO BID-W/MEALS 03/23/21 [History] Vascepa 1gm 1 gm PO BID 03/23/21 [History] Calcium Acetate 2,001 mg PO TID-W/MEALS 02/25/22 [History] Metoprolol Tartrate [Lopressor] 25 mg PO BID 02/25/22 [History] Pantoprazole [Protonix] 40 mg PO DAILY 02/25/22 [History] Potassium Chloride ER [K-Dur 20] 20 meq PO BID 02/25/22 [History] levETIRAcetam [Keppra] 500 mg PO BID@0700,2100 02/25/22 [History] Divalproex ER [Depakote ER] 250 mg PO BID 30 Days #60 tab 02/28/22 [Rx] levETIRAcetam [Keppra] 500 mg PO MoWeFr@1600 30 Days #15 tab 02/28/22 [Rx] Sevelamer [Renvela] 1,600 mg PO W/SUPPER 04/29/22 [History] hydrALAZINE HCL [Apresoline] 50 mg PO BID 04/29/22 [History] Follow up Appointment(s)/Referral(s): None,Stated [Primary Care Provider] - 1-2 days Discharge Disposition: Left Against Medical Advice
[2022-04-30] MEDS ORDERED: ATORVASTATIN 40 MG TAB PO SCH (21:00)
[2022-05-02] MEDS ORDERED: LACOSAMIDE 150 MG TABLET PO SCH (07:00)
[2022-05-02 08:17] LABS: Levetiracetam (Keppra) 28.9 ug/mL (3.0-60.0)
== END 2022-04-30 13:09 | disposition left against medical advice (07) ==
LOC: EC 15:57 → 5NMEDONC 20:48
PROVIDERS: ADMIT Internal Medicine; ATTEND Internal Medicine
DX: G40.909 Epilepsy, unspecified, not intractable, without status epilepticus (principal); I12.0 Hypertensive chronic kidney disease with stage 5 chronic kidney disease or end stage renal disease; N18.6 End stage renal disease; E11.22 Type 2 diabetes mellitus with diabetic chronic kidney disease; Z99.2 Dependence on renal dialysis; E11.42 Type 2 diabetes mellitus with diabetic polyneuropathy; E78.5 Hyperlipidemia, unspecified; K21.9 Gastro-esophageal reflux disease without esophagitis; M19.90 Unspecified osteoarthritis, unspecified site; M21.372 Foot drop, left foot; I69.354 Hemiplegia and hemiparesis following cerebral infarction affecting left non-dominant side; I69.311 Memory deficit following cerebral infarction; I83.90 Asymptomatic varicose veins of unspecified lower extremity; F31.9 Bipolar disorder, unspecified; R26.2 Difficulty in walking, not elsewhere classified; Z53.29 Procedure and treatment not carried out because of patient's decision for other reasons; Z79.02 Long term (current) use of antithrombotics/antiplatelets; Z79.85 Long-term (current) use of injectable non-insulin antidiabetic drugs; Z79.899 Other long term (current) drug therapy; Z88.0 Allergy status to penicillin; Z96.82 Presence of neurostimulator; Z98.891 History of uterine scar from previous surgery; Z87.891 Personal history of nicotine dependence; Z98.890 Other specified postprocedural states
CPT/HCPCS: 96372; 96374; 99285; 36415; 93005; 80164; 80053; 80177; 83735; 85025; 80235; 70450; G0378 ×2; J1953; J1644

== ENCOUNTER 2022-05-18 20:32 | Observation (INO) | payer MEDICARE, OTHER ==
[2022-05-18] MEDS ORDERED: SODIUM CHLORIDE 0.9% 1,000 ML IV STA (21:31)
--- NOTE | 2022-05-18 22:14 | ED ---
General Adult HPI - General Chief complaint: Seizure Stated complaint: Seizure Time Seen by Provider: 05/18/22 21:05 Source: EMS Mode of arrival: EMS Limitations: altered mental status - History of Present Illness Initial comments: 52-year-old female with past medical history of end-stage renal disease on hemodialysis, diabetes, CVA, seizure disorder who presents to the emergency department after she had a seizure. EMS provided history as there is no family at bedside. States that the patient had a breakthrough seizure today. Family members were in the other room. They went to the bathroom where the patient was attempting to use the restroom. On the patient on the floor seizing. Patient was having a tonic-clonic seizure. Unknown how long she had been seizing for. Ported in the patient's history that she previously had breakthrough seizures once a month. This have become more frequent. Patient has had been seen in the hospital 3 times this month for breakthrough seizure. Reports that there is concern for noncompliance. Patient was recently started on Vimpat for increasing breakthrough seizures. Patient cannot provide any history to me at this time and no family is available for consultation. - Related Data Home Medications Medication Instructions Recorded Confirmed Atorvastatin [Lipitor] 40 mg PO HS 03/23/21 05/19/22 Dulaglutide [Trulicity] 3 mg SQ Q7D 03/23/21 05/19/22 Lacosamide [Vimpat] 150 mg PO MOWEFR@07,14,03/23/21 05/19/22 Sevelamer [Renvela] 800 mg PO BID-W/MEALS 03/23/21 05/19/22 Vascepa 1gm 1 gm PO BID 03/23/21 05/19/22 Calcium Acetate 667 mg PO TID-W/MEALS 02/25/22 05/19/22 Metoprolol Tartrate [Lopressor] 25 mg PO BID 02/25/22 05/19/22 Pantoprazole [Protonix] 40 mg PO DAILY 02/25/22 05/19/22 Potassium Chloride ER [K-Dur 20] 20 meq PO BID 02/25/22 05/19/22 levETIRAcetam [Keppra] 500 mg PO BID@0700,2100 02/25/22 05/19/22 Sevelamer [Renvela] 1,600 mg PO W/SUPPER 04/29/22 05/19/22 hydrALAZINE HCL [Apresoline] 50 mg PO BID 04/29/22 05/19/22 Previous Rx's Medication Instructions Recorded Clopidogrel [Plavix] 75 mg PO DAILY #30 tab 09/05/20 amLODIPine [Norvasc] 10 mg PO DAILY #30 tab 09/05/20 Divalproex ER [Depakote ER] 250 mg PO BID 30 Days #60 tab 02/28/22 levETIRAcetam [Keppra] 500 mg PO MoWeFr@1600 30 Days #15 02/28/22 tab Lacosamide [Vimpat] 150 mg PO BID@0700,1900 #0 05/19/22 Allergies Allergy/AdvReac Type Severity Reaction Status Date / Time Penicillins Allergy Itching Verified 05/19/22 10:33 Review of Systems ROS Statement: Those systems with pertinent positive or pertinent negative responses have been documented in the HPI. ROS Other: All systems not noted in ROS Statement are negative. Past Medical History Past Medical History: Chest Pain / Angina, CVA/TIA, Diabetes Mellitus, GERD/Reflux, Hyperlipidemia, Hypertension, Memory Impairment, Osteoarthritis (OA), Renal Disease, Seizure Disorder, Thyroid Disorder Additional Past Medical History / Comment(s): Last seizure approximately one month ago. Spouse states she used to have seizures 4X per week until she had vagal nerve stimulator placed, now has seizures approximately once a week to once a month. Dialysis MOWEFR. Neuropathy, left drop foot, only able to walk short distances, otherwise uses wheelchair. 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 Never diagnosed with Sleep Apnea but spouse states she does stop breathing through the night and he has to shake her to start breathing again. Varicose veins. History of Any Multi-Drug Resistant Organisms: None Reported Past Surgical History: Section, Tonsillectomy, Uterine Ablation Additional Past Surgical History / Comment(s): Left arm fistula, loop recorder, vagus nerve stimulator. Past Anesthesia/Blood Transfusion Reactions: Motion Sickness Additional Past Anesthesia/Blood Transfusion Reaction / Comment(s): Family hx unknown, pt adopted. Past Psychological History: Bipolar Smoking Status: Former smoker Past Alcohol Use History: None Reported Past Drug Use History: None Reported - Past Family History Father Family Medical History: Unable to Obtain Additional Family Medical History / Comment(s): Pt adopted. General Exam Limitations: altered mental status General appearance: in no apparent distress, lethargic, other (post ictal) Head exam: Present: other (abraions right forearm) Eye exam: Present: normal appearance, PERRL, EOMI. Absent: scleral icterus, conjunctival injection, periorbital swelling ENT exam: Present: normal exam, mucous membranes moist Neck exam: Present: normal inspection. Absent: tenderness, meningismus, lymphadenopathy Respiratory exam: Present: normal lung sounds bilaterally. Absent: respiratory distress, wheezes, rales, rhonchi, stridor Cardiovascular Exam: Present: regular rate, normal rhythm, normal heart sounds. Absent: systolic murmur, diastolic murmur, rubs, gallop, clicks Neurological exam: Present: altered, other (will answer yes/no questions. postictal. follow commands) Course Vital Signs 05/18/22 05/19/22 05/19/22 20:42 02:46 05:52 Temperature Pulse Rate 94 84 70 Respiratory 16 16 16 Rate Blood Pressure 144/76 150/70 O2 Sat by Pulse 99 95 97 Oximetry 05/19/22 06:38 Temperature 97.6 F Pulse Rate Respiratory Rate Blood Pressure O2 Sat by Pulse Oximetry EKG Findings - EKG Comments: EKG Findings:: EKG demonstrates a sinus rhythm with a rate of 92. NE interval 188. QRS 84. QTC of 421. Some baseline artifact in the lateral leads. No acute ST segment elevations or depressions Medical Decision Making - Medical Decision Making Arrival patient's placed into room 10. Thorough history and physical exam was performed. Patient is post ictal and therefore cannot provide history. Extensive review of the patient's chart demonstrates that she has been here twice this month for breakthrough seizures. Patient has medications appetite however does not appear that the patient is taking the medications regularly. Patient does have prolonged postictal state. Laboratory studies are conducted and reviewed. Patient will be admitted to [facility]. Accepted by Dr. Marti - Lab Data Result diagrams: 05/19/22 04:16 05/19/22 04:16 Lab Results 05/18/22 05/18/22 05/18/22 Range/Units 23:14 23:14 23:14 WBC 8.2 (3.8-10.6) k/uL RBC 3.68 L (3.80-5.40) m/uL Hgb 11.1 L (11.4-16.0) gm/dL Hct 32.4 L (34.0-46.0) % MCV 87.8 (80.0-100.0) fL MCH 30.1 (25.0-35.0) pg MCHC 34.3 (31.0-37.0) g/dL RDW 14.6 (11.5-15.5) % Plt Count 225 (150-450) k/uL MPV 8.7 Neutrophils % 80 % Lymphocytes % 13 % Monocytes % 4 % Eosinophils % 1 % Basophils % 1 % Neutrophils # 6.6 (1.3-7.7) k/uL Lymphocytes # 1.1 (1.0-4.8) k/uL Monocytes # 0.3 (0-1.0) k/uL Eosinophils # 0.1 (0-0.7) k/uL Basophils # 0.1 (0-0.2) k/uL Sodium 137 (137-145) mmol/L Potassium 3.6 (3.5-5.1) mmol/L Chloride 93 L (98-107) mmol/L Carbon Dioxide 31 H (22-30) mmol/L Anion Gap 13 mmol/L BUN 18 H (7-17) mg/dL Creatinine 4.81 H (0.52-1.04) mg/dL Est GFR (CKD-EPI)AfAm 11 (>60 ml/min/1.73 sqM) Est GFR (CKD-EPI)NonAf 10 (>60 ml/min/1.73 sqM) Glucose 190 H (74-99) mg/dL Calcium 8.8 (8.4-10.2) mg/dL Magnesium 2.1 (1.6-2.3) mg/dL Total Bilirubin 0.4 (0.2-1.3) mg/dL AST 19 (14-36) U/L ALT 15 (4-34) U/L Alkaline Phosphatase 131 H (38-126) U/L Total Protein 7.1 (6.3-8.2) g/dL Albumin 4.3 (3.5-5.0) g/dL Valproic Acid <10.0 ug/mL Levetiracetam 24.3 (3.0-60.0) ug/mL Serum Alcohol <10 mg/dL Disposition Clinical Impression: Breakthrough seizure, Post-ictal confusion, End stage renal disease Disposition: ADMITTED IP TO THIS HOSP Condition: Stable Is patient prescribed a controlled substance at d/c from ED?: No Time of Disposition: 23:51 Decision to Admit Reason: Admit from EC Decision Date: 05/18/22 Decision Time: 23:51
--- NOTE | 2022-05-18 22:40 | CT ---
EXAMINATION TYPE: CT brain topher espinoza con DATE OF EXAM: 05/18/2022 COMPARISON: CT brain 04/30/2022 HISTORY: seziure, found face down CT DLP: 1394.3 mGycm Automated exposure control for dose reduction was used. There is mild cerebral cortical atrophy. There is 1.5 cm area of hypodensity in the anterior left justo lamus and consistent with an old lacunar infarct. There is no mass effect or midline shift. No sign o f intracranial hemorrhage. The calvarium is intact. Skull base is intact. There is normal aeration of the mastoid sinuses. The cervical vertebra have normal alignment. There is slight narrowing of the C5-6 disc space. No com pression fracture. Facet joints are intact. Prevertebral soft tissues are intact. There is occipital scalp hematoma in the midline. IMPRESSION: Mild atrophy. Old left thalamic lacunar infarct. Brain is not changed compared to the old exam. No acute abnormality of the cervical spine. Midline occipital scalp hematoma.
[2022-05-18 23:26] LABS: Basophils # (A) 0.1 k/uL (0-0.2); Basophils % (A) 1 %; Eosinophils # (A) 0.1 k/uL (0-0.7); Eosinophils % (A) 1 %; HCT 32.4 % (34.0-46.0); HGB 11.1 gm/dL (11.4-16.0); Lymphocytes # (A) 1.1 k/uL (1.0-4.8); Lymphocytes % (A) 13 %; MCH 30.1 pg (25.0-35.0); MCHC 34.3 g/dL (31.0-37.0); MCV 87.8 fL (80.0-100.0); Mean Platelet Volume 8.7; Monocytes # (A) 0.3 k/uL (0-1.0); Monocytes % (A) 4 %; Neutrophils # (A) 6.6 k/uL (1.3-7.7); Neutrophils % (A) 80 %; Platelet Count 225 k/uL (150-450); RBC 3.68 m/uL (3.80-5.40); RDW 14.6 % (11.5-15.5); WBC 8.2 k/uL (3.8-10.6)
[2022-05-18 23:35] LABS: ALT 15 U/L (4-34); AST 19 U/L (14-36); African American GFR (CKD) 11 (>60 ml/min/1.73 sqM); Albumin 4.3 g/dL (3.5-5.0); Alcohol <10 mg/dL; Alkaline Phosphatase 131 U/L (38-126); Anion Gap 13 mmol/L; Blood Urea Nitrogen 18 mg/dL (7-17); Calcium 8.8 mg/dL (8.4-10.2); Carbon Dioxide 31 mmol/L (22-30); Chloride 93 mmol/L (98-107); Glucose 190 mg/dL (74-99); Magnesium 2.1 mg/dL (1.6-2.3); Non-African American GFR(CKD) 10 (>60 ml/min/1.73 sqM); Potassium 3.6 mmol/L (3.5-5.1); Sodium 137 mmol/L (137-145); Total Bilirubin 0.4 mg/dL (0.2-1.3); Total Protein 7.1 g/dL (6.3-8.2)
[2022-05-18 23:39] LABS: Valproic Acid (Depakene) <10.0 ug/mL
[2022-05-18] MEDS ORDERED: NALOXONE 0.4 MG/ML 1 ML VIAL IV PRN (23:52)
--- NOTE | 2022-05-19 00:38 | P.HPIM ---
History of Present Illness H&P Date: 05/18/22 The patient is a 52-year-old female with a PMH of ESRD on hemodialysis, history of CVA with residual left-sided weakness, seizure disorder, hypertension, hyperlipidemia, and type II DM who was brought into the emergency room via EMS after a seizure. The history is largely obtained from ED physician and from the chart as the patient was lethargic at the time of interview and was not answ ering all questions appropriately. The patient reportedly had a breakthrough seizure earlier today, witnessed by family members, tonic-clonic in nature. The patient was reportedly found on the bathroom floor having a seizure after family heard a thump. The patient states that she has been compliant with her antiepileptics. Of note however, the patient has had multiple recent hospitalizations for breakthrough seizures. During her prior hospitalization, neurology could not fully evaluate the patient as she had signed out AMA. At time of interview, the patient reported feeling tired. She denied any additional complaints. History although limited as stated above due to altered mentation. Head/cervical spine CT in the emergency room revealed a midline neck supple scalp hematoma with EKG showing sinus rhythm at [address]/T-wave changes noted as reviewed by me. Laboratory evaluation was remarkable for BUN of 18, creatinine 4.1, and CO2 of 31 with glucose 190. Valproic acid level was less than 10 with serum alcohol level also less than 10. Review of systems: Unable to obtain due to mental status. Physical examination: General: Somewhat chronically ill-appearing female, no distress, appears older than stated age, overweight Derm: Facial hair in hirsutism pattern noted, no unusual rashes/lesions, warm Head: atraumatic, normocephalic, symmetric Eyes: EOMI, no lid lag, anicteric sclera, pupils equal round reactive to light ENT: Nose and ears atraumatic Neck: No cervical lymphadenopathy, trachea midline, supple Mouth: no lip lesion, mucus membranes moist Cardiovascular: S1S2 reg, no murmur, positive dorsalis pedis pulse bilateral, no edema Lungs: CTA bilateral, no rhonchi, no rales, no accessory muscle use Abdominal: soft, nontender to palpation, no guarding Ext: muscle strength 4 out of 5 of right upper and lower extremities with strength 3 out of 5 of left upper and lower extremities grossly, no gross muscle atrophy, no contractures, Neuro: CN II-XI grossly intact, no gross focal neuro deficits Psych: Lethargic, oriented only to person and place, not oriented to time Assessment/plan Breakthrough seizure -Patient currently on Depakote, Vimpat, and Keppra as outpatient, although adherence is questionable -Follow up levels -Neurology consult -Fall, seizure, aspiration precautions Chronic conditions: ESRD on hemodialysis, type II DM, hypertension, hyperlipidemia -Continue with home meds -Nephrology consulted for hemodialysis resumption DVT prophylaxis -Heparin subcu The patient is admitted with an anticipated less than 2 midnight stay for evaluation of breakthrough seizure CODE STATUS: Full Code Discussed with: Patient Anticipated discharge date: in am Anticipated discharge place: Home Past Medical History Past Medical History: Chest Pain / Angina, CVA/TIA, Diabetes Mellitus, GERD /Reflux, Hyperlipidemia, Hypertension, Memory Impairment, Osteoarthritis (OA), Renal Disease, Seizure Disorder, Thyroid Disorder Additional Past Medical History / Comment(s): Last seizure approximately one month ago. Spouse states she used to have seizures 4X per week until she had vagal nerve stimulator placed, now has seizures approximately once a week to once a month. Dialysis MOWEFR. Neuropathy, left drop foot, only able to walk short distances, otherwise uses wheelchair. 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 Never diagnosed with Sleep Apnea but spouse states she does stop breathing through the night and he has to shake her to start breathing again. Varicose veins. History of Any Multi-Drug Resistant Organisms: None Reported Past Surgical History: Section, Tonsillectomy, Uterine Ablation Additional Past Surgical History / Comment(s): Left arm fistula, loop recorder, vagus nerve stimulator. Past Anesthesia/Blood Transfusion Reactions: Motion Sickness Additional Past Anesthesia/Blood Transfusion Reaction / Comment(s): Family hx unknown, pt adopted. Past Psychological History: Bipolar Smoking Status: Former smoker Past Alcohol Use History: None Reported Past Drug Use History: None Reported - Past Family History Father Family Medical History: Unable to Obtain Additional Family Medical History / Comment(s): Pt adopted. Medications and Allergies Home Medications Medication Instructions Recorded Confirmed Type Clopidogrel [Plavix] 75 mg PO DAILY #30 tab 09/05/20 04/29/22 Rx amLODIPine [Norvasc] 10 mg PO DAILY #30 tab 09/05/20 04/29/22 Rx Atorvastatin [Lipitor] 40 mg PO HS 03/23/21 04/29/22 History Dulaglutide [Trulicity] 3 mg SQ Q7D 03/23/21 04/29/22 History Lacosamide [Vimpat] 150 mg PO MOWEFR@07,14,21 03/23/21 04/29/22 History Lacosamide [Vimpat] 150 mg PO SUTUFRSA@0700,2100 03/23/21 04/29/22 History Sevelamer [Renvela] 800 mg PO BID-W/MEALS 03/23/21 04/29/22 History Vascepa 1gm 1 gm PO BID 03/23/21 04/29/22 History Calcium Acetate 2,001 mg PO TID-W/MEALS 02/25/22 04/29/22 History Metoprolol Tartrate [Lopressor] 25 mg PO BID 02/25/22 04/29/22 History Pantoprazole [Protonix] 40 mg PO DAILY 02/25/22 04/29/22 History Potassium Chloride ER [K-Dur 20] 20 meq PO BID 02/25/22 04/29/22 History levETIRAcetam [Keppra] 500 mg PO BID@0700,2100 02/25/22 04/29/22 History Divalproex ER [Depakote ER] 250 mg PO BID 30 Days #60 tab 02/28/22 04/29/22 Rx levETIRAcetam [Keppra] 500 mg PO MoWeFr@1600 30 Days #15 02/28/22 04/29/22 Rx tab Sevelamer [Renvela] 1,600 mg PO W/SUPPER 04/29/22 04/29/22 History hydrALAZINE HCL [Apresoline] 50 mg PO BID 04/29/22 04/29/22 History Allergies Allergy/AdvReac Type Severity Reaction Status Date / Time Penicillins Allergy Itching Verified 04/29/22 16:06 Physical Exam Vitals: Vital Signs Pulse Resp BP Pulse Ox 05/18/22 20:42 94 16 144/76 99 Intake and Output 05/18/22 05/18/22 05/19/22 14:59 22:59 06:59 Other: Weight 81.647 kg Results CBC & Chem 7: 05/18/22 23:14 10/26/22 23:14 Labs: Abnormal Lab Results - Last 24 Hours (Table) 05/18/22 05/18/22 Range/Units 23:14 23:14 RBC 3.68 L (3.80-5.40) m/uL Hgb 11.1 L (11.4-16.0) gm/dL Hct 32.4 L (34.0-46.0) % Chloride 93 L (98-107) mmol/L Carbon Dioxide 31 H (22-30) mmol/L BUN 18 H (7-17) mg/dL Creatinine 4.81 H (0.52-1.04) mg/dL Glucose 190 H (74-99) mg/dL Alkaline Phosphatase 131 H (38-126) U/L
[2022-05-19] MEDS ORDERED: DIVALPROEX 250 MG TABLET.DR PO STA (04:39)
[2022-05-19] MEDS ORDERED: levETIRAcetam IV 1,000 MG in SALINE 1 100ML.BAG IVPB STA (04:41)
[2022-05-19 04:42] LABS: Basophils # (A) 0.1 k/uL (0-0.2); Basophils % (A) 1 %; Eosinophils # (A) 0.1 k/uL (0-0.7); Eosinophils % (A) 1 %; HCT 33.4 % (34.0-46.0); Lymphocytes # (A) 3.2 k/uL (1.0-4.8); Lymphocytes % (A) 37 %; MCV 87.9 fL (80.0-100.0); Mean Platelet Volume 9.4; Monocytes # (A) 0.6 k/uL (0-1.0); Monocytes % (A) 7 %; Neutrophils # (A) 4.6 k/uL (1.3-7.7); Neutrophils % (A) 53 %; Platelet Count 220 k/uL (150-450); WBC 8.7 k/uL (3.8-10.6)
[2022-05-19 05:03] LABS: Calcium 8.9 mg/dL (8.4-10.2); Potassium 4.3 mmol/L (3.5-5.1)
[2022-05-19 08:55] VITALS: PULSE 91; RESP 17
[2022-05-19] MEDS ORDERED: DIVALPROEX ER 250 MG TAB.ER.24H PO SCH (09:00)
[2022-05-19] MEDS ORDERED: hydrALAZINE HCL 50 MG TAB PO SCH (09:00)
[2022-05-19] MEDS ORDERED: CLOPIDOGREL 75 MG TAB PO SCH (09:00)
[2022-05-19] MEDS ORDERED: amLODIPine 10 MG TAB PO SCH (09:00)
[2022-05-19] MEDS ORDERED: PANTOPRAZOLE 40 MG TABLET PO SCH (09:00)
[2022-05-19] MEDS ORDERED: METOPROLOL TARTRATE 25 MG TAB PO SCH (09:00)
[2022-05-19 09:01] LABS: Glucose,Whole Blood 117 mg/dL (70-110)
[2022-05-19] MEDS: INSULIN ASPART (NovoLOG) 100 UNIT/ML VIAL SQ SCH ×2 (09:29→13:32)
[2022-05-19] MEDS: HEPARIN SODIUM,PORCINE/PF 5,000 UNIT/0.5 ML SYRINGE SQ SCH ×2 (09:55→17:33)
--- NOTE | 2022-05-19 10:43 | P.CNNES ---
History of Present Illness Consult date: 05/19/22 Requesting physician: Jacinta Berry Reason for Consult: breakthrough seizure History of Present Illness: This is a 52-year-old woman with history of epilepsy on VNS, stroke with left hemiparesis, diabetes mellitus, end-stage renal disease on dialysis, hypertension who presented to our facility because of breakthrough seizure. Patient is known to our neurology team and presents our facility multiple times because of breakthrough seizures. Some of the history is obtained from medical records. Per the ED team the family notified ED physician that the patient went to the bathroom to use the restroom and the patient had a seizure there and it was a tonic-clonic seizure unknown of the duration of the seizure. Her last seizure was a month ago. I spoke with the and he stated he stated unsure if she missed her vimpat medication yesterday in the morning or not. According to her she is following-up with Dr. Ohara team and has followed up in the past 1-2 weeks and had her VNS increased but has not had her medication modified. He believes she is on Keppra 500mg 1 tab bid with additional tab post dialysis, Vimpat 150mg 1 tab bid with additional post dialysis, Depakote 250mg bid. He stated Onfi medication does not sound familiar to her regimen. Currently patient feels back to baseline and wants to go home. She was last seen by myself on 02/27/2022 for breakthrough seizure and I recomme nded to continue Keppra 500mg 1 tab bid with additional keppra post dialysis, Vimpat 150mg 1 tab bid with additional post dialysis and recommended restart of Onfi and that is helping to discontinue Depakote 250mg bid. Please refer to my notes for further details. Dr. Sosa was consulted on 04/30/2022 for break-thru seizure but it seems she went AMA. Some of the work-up during this hospital visit consisted of: Initial glucose is 190 and repeated is 119. Valproic acid is <10.0 serum alcohol is <10 CT head is reported as mild atrophy. Old left thalamic lacunar infarct. Brain is not changed compared to the old exam. I personally reviewed the CT of the head and there is no acute subacute ischemia and there is notable, hemorrhage. CT cervical spine is reported as no acute abnormality of the cervical spine. Midline occipital scalp hematoma. Review of Systems Review of system: The 12 point system was reviewed and apparent positive and negative per HPI. Past Medical History Past Medical History: Chest Pain / Angina, CVA/TIA, Diabetes Mellitus, GERD/Reflux, Hyperlipidemia, Hypertension, Memory Impairment, Osteoarthritis (OA), Renal Disease, Seizure Disorder, Thyroid Disorder Additional Past Medical History / Comment(s): Last seizure approximately one month ago. Spouse states she used to have seizures 4X per week until she had vagal nerve stimulator placed, now has seizures approximately once a week to once a month. Dialysis MOWEFR. Neuropathy, left drop foot, only able to walk short distances, otherwise uses wheelchair. 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 Never diagnosed with Sleep Apnea but spouse states she does stop breathing through the night and he has to shake her to start breathing again. Varicose veins. History of Any Multi-Drug Resistant Organisms: None Reported Past Surgical History: Section, Tonsillectomy, Uterine Ablation Additional Past Surgical History / Comment(s): Left arm fistula, loop recorder, vagus nerve stimulator. Past Anesthesia/Blood Transfusion Reactions: Motion Sickness Additional Past Anesthesia/Blood Transfusion Reaction / Comment(s): Family hx unknown, pt adopted. Past Psychological History: Bipolar Smoking Status: Former smoker Past Alcohol Use History: None Reported Past Drug Use History: None Reported - Past Family History Father Family Medical History: Unable to Obtain Additional Family Medical History / Comment(s): Pt adopted. Medications and Allergies Home Medications Medication Instructions Recorded Confirmed Type Clopidogrel [Plavix] 75 mg PO DAILY #30 tab 09/05/20 05/19/22 Rx amLODIPine [Norvasc] 10 mg PO DAILY #30 tab 09/05/20 05/19/22 Rx Atorvastatin [Lipitor] 40 mg PO HS 03/23/21 05/19/22 History Dulaglutide [Trulicity] 3 mg SQ Q7D 03/23/21 05/19/22 History Lacosamide [Vimpat] 150 mg PO MOWEFR@07,14,21 03/23/21 05/19/22 History Sevelamer [Renvela] 800 mg PO BID-W/MEALS 03/23/21 05/19/22 History Vascepa 1gm 1 gm PO BID 03/23/21 05/19/22 History Calcium Acetate 667 mg PO TID-W/MEALS 02/25/22 05/19/22 History Metoprolol Tartrate [Lopressor] 25 mg PO BID 02/25/22 05/19/22 History Pantoprazole [Protonix] 40 mg PO DAILY 02/25/22 05/19/22 History Potassium Chloride ER [K-Dur 20] 20 meq PO BID 02/25/22 05/19/22 History levETIRAcetam [Keppra] 500 mg PO BID@0700,2100 02/25/22 05/19/22 History Divalproex ER [Depakote ER] 250 mg PO BID 30 Days #60 tab 02/28/22 05/19/22 Rx levETIRAcetam [Keppra] 500 mg PO MoWeFr@1600 30 Days #15 02/28/22 05/19/22 Rx tab Sevelamer [Renvela] 1,600 mg PO W/SUPPER 04/29/22 05/19/22 History hydrALAZINE HCL [Apresoline] 50 mg PO BID 04/29/22 05/19/22 History Lacosamide [Vimpat] 150 mg PO BID@0700,1900 #0 05/19/22 05/19/22 Rx Allergies Allergy/AdvReac Type Severity Reaction Status Date / Time Penicillins Allergy Itching Verified 05/19/22 10:33 Physical Examination - Vital Signs Vital Signs: Vital Signs Temp Pulse Pulse Resp BP BP Pulse Ox 05/19/22 07:40 98.3 F 91 17 168/69 99 05/19/22 06:38 97.6 F 05/19/22 05:52 70 16 150/70 97 05/19/22 02:46 84 16 95 05/18/22 20:42 94 16 144/76 99 Intake and Output 05/18/22 05/19/22 05/19/22 22:59 06:59 14:59 Other: Weight 81.647 kg GENERAL: The patient is lying in bed and is not in acute distress. CHEST: The heart rate is regular rate rhythm. No murmurs to auscultation. LUNG: Clear to auscultation bilaterally no wheezing noted throughout. Not labored breathing. ABDOMEN/GI: Bowel sounds present in all 4 quadrants. No tenderness to palpation throughout. NEUROLOGICAL: Higher mental function: The patient is awake, alert, oriented to self, time. She stated she was in the hospital but did not know the name. Patient is following simple commands. Has some word finding difficulty. No neglect. Cranial nerves: The pupils are round, equal and reactive to light. Visual reich are full to confrontation throughout. Extraocular movement is intact no nystagmus is noted. Facial sensation is normal to touch throughout. The facial strength is normal throughout. Hearing is mildly decreased bilaterally to hand rub. Tongue is midline and moved [id number] without any difficulty. No dysarthria is noted. Shoulder shrug is normal bilaterally. Motor: The strength is left side is 3 (old). While right side is 5/5. Slightly decrease tone over the left. Normal bulk. Cerebellum: Normal finger to nose over the right. Sensation: Sensation is normal to touch throughout. Reflexes: 1+ throughout. Results - Laboratory Findings CBC and BMP: 05/19/22 04:16 05/19/22 04:16 Abnormal Lab Findings: Abnormal Labs 05/18/22 05/18/22 05/19/22 23:14 23:14 04:16 RBC 3.68 L Hgb 11.1 L 11.0 L Hct 32.4 L 33.4 L Chloride 93 L Carbon Dioxide 31 H BUN 18 H Creatinine 4.81 H Glucose 190 H POC Glucose (mg/dL) Alkaline Phosphatase 131 H 05/19/22 05/19/22 04:16 09:00 RBC Hgb Hct Chloride 95 L Carbon Dioxide BUN 22 H Creatinine 5.02 H Glucose 119 H POC Glucose (mg/dL) 117 H Alkaline Phosphatase Assessment and Plan Assessment: Break-through seizure: Possible medication non-compliance (per unsure if she missed her morning dose of Vimpat) and depakote level is subtherapeutic (level is <10 but is on low dose but would expect level to higher than 10). 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 Recommend Onfi 5mg 1 tab bid in addition to be started as outpatient (we do not have it as formulary) and if that's helping with her seizures recommend stopping Depakote but will defer that management to her neurologist. I personally wrote a script for outpatient for Onfi (60 tabs and 1 refil) and will have her neurologist modify her anti-epileptic medications as outpatient. Recommend patient to follow-up with epileptilogist (consider virtual visits since wants something locally) since continues to have uncontrolled epilepsy. In the mean time, continue to follow-up with her local neurologist (Dr. Ohara's team). Keppra level was ordered and is pending I also ordered Vimpat level Is on seizure precaution and pads We'll defer the rest of the medical management to primary team Otherwise no additional workup is needed. Recommend the patient to follow-up with her local neurologist within a week. The plan is discussed with the patient's via phone. Thank you for the consultation Time with Patient: Greater than 30
[2022-05-19] MEDS ORDERED: hydrALAZINE HCL 20 MG/ML 1 ML VIAL IVP PRN (11:07)
--- NOTE | 2022-05-19 11:09 | P.NPCON ---
History of Present Illness - Reason for Consult end stage renal disease - History of Present Illness Reason for consultation: End-stage renal disease History of present illness: Patient is a [id number] female seen in renal consultation for end-stage renal disease. She is maintained on hemodialysis on Monday schedule. Complete hemodialysis treatment yesterday. Patient presented to the hospital after she has seizure at home. Patient was found seizing on the floor at home. Patient has history of seizures and has been hospitalized multiple times for the same. She is currently on room air. Patient has a history of baseline dementia and dysarthria. No fever or chills. No nausea vomiting or diarrhea. She is being followed by neurology. She is maintained on multiple anticonvulsants. Patient did sustain a fall is noted to have a bruise on her forehead. CT showed occipital scalp hematoma and old CVA. Vital signs are stable. General: Awake. No acute distress. HEENT: Head exam is unremarkable. LUNGS: Breath sounds decreased. HEART: Rate and Rhythm are regular. ABDOMEN: Soft, no distention. EXTREMITITES: No edema. Past Medical History Past Medical History: Chest Pain / Angina, CVA/TIA, Diabetes Mellitus, GERD/Reflux, Hyperlipidemia, Hypertension, Memory Impairment, Osteoarthritis (OA), Renal Disease, Seizure Disorder, Thyroid Disorder Additional Past Medical History / Comment(s): Last seizure approximately one month ago. Spouse states she used to have seizures 4X per week until she had vagal nerve stimulator placed, now has seizures approximately once a week to once a month. Dialysis MOWEFR. Neuropathy, left drop foot, only able to walk short distances, otherwise uses wheelchair. 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 Never diagnosed with Sleep Apnea but s pouse states she does stop breathing through the night and he has to shake her to start breathing again. Varicose veins. History of Any Multi-Drug Resistant Organisms: None Reported Past Surgical History: Section, Tonsillectomy, Uterine Ablation Additional Past Surgical History / Comment(s): Left arm fistula, loop recorder, vagus nerve stimulator. Past Anesthesia/Blood Transfusion Reactions: Motion Sickness Additional Past Anesthesia/Blood Transfusion Reaction / Comment(s): Family hx unknown, pt adopted. Past Psychological History: Bipolar Smoking Status: Former smoker Past Alcohol Use History: None Reported Past Drug Use History: None Reported - Past Family History Father Family Medical History: Unable to Obtain Additional Family Medical History / Comment(s): Pt adopted. Medications and Allergies Home Medications Medication Instructions Recorded Confirmed Type Clopidogrel [Plavix] 75 mg PO DAILY #30 tab 09/05/20 05/19/22 Rx amLODIPine [Norvasc] 10 mg PO DAILY #30 tab 09/05/20 05/19/22 Rx Atorvastatin [Lipitor] 40 mg PO HS 03/23/21 05/19/22 History Dulaglutide [Trulicity] 3 mg SQ Q7D 03/23/21 05/19/22 History Lacosamide [Vimpat] 150 mg PO MOWEFR@07,14,03/23/21 05/19/22 History Lacosamide [Vimpat] 150 mg PO SUTUFRSA@0700,2100 03/23/21 05/19/22 History Sevelamer [Renvela] 800 mg PO BID-W/MEALS 03/23/21 05/19/22 History Vascepa 1gm 1 gm PO BID 03/23/21 05/19/22 History Calcium Acetate 667 mg PO TID-W/MEALS 02/25/22 05/19/22 History Metoprolol Tartrate [Lopressor] 25 mg PO BID 02/25/22 05/19/22 History Pantoprazole [Protonix] 40 mg PO DAILY 02/25/22 05/19/22 History Potassium Chloride ER [K-Dur 20] 20 meq PO BID 02/25/22 05/19/22 History levETIRAcetam [Keppra] 500 mg PO BID@0700,2100 02/25/22 05/19/22 History Divalproex ER [Depakote ER] 250 mg PO BID 30 Days #60 tab 02/28/22 05/19/22 Rx levETIRAcetam [Keppra] 500 mg PO MoWeFr@1600 30 Days #15 02/28/22 05/19/22 Rx tab Sevelamer [Renvela] 1,600 mg PO W/SUPPER 04/29/22 05/19/22 History hydrALAZINE HCL [Apresoline] 50 mg PO BID 04/29/22 05/19/22 History Allergies Allergy/AdvReac Type Severity Reaction Status Date / Time Penicillins Allergy Itching Verified 10/27/22 10:33 Physical Exam Vitals: Vital Signs Temp Pulse Pulse Resp BP BP Pulse Ox 05/19/22 07:40 98.3 F 91 17 168/69 99 05/19/22 06:38 97.6 F 05/19/22 05:52 70 16 150/70 97 05/19/22 02:46 84 16 95 05/18/22 20:42 94 16 144/76 99 Intake and Output 05/18/22 05/19/22 05/19/22 22:59 06:59 14:59 Other: Weight 81.647 kg Results - Lab Results Most recent lab results Calcium 8.9 mg/dL (8.4-10.2) 05/19/22 04:16 Magnesium 2.1 mg/dL (1.6-2.3) 05/18/22 23:14 05/19/22 04:16 05/19/22 04:16 Assessment and Plan Plan: Assessment: 1. End-stage renal disease maintained on hemodialysis on Monday schedule. 2. Seizure disorder. 3. Hypertension with chronic kidney disease. 4. Chronic kidney disease mineral bone disease maintained on phosphate binders. 5. Hypertension with chronic kidney disease. Plan: Hemodialysis tomorrow. Home antihypertensives resumed. If blood pressures seem persistently above 140/90, will increase dose of hydralazine. Thank you for the consultation. I will continue to follow the patient with you during her hospital stay.
[2022-05-19] MEDS ORDERED: CALCIUM ACETATE 667 MG TAB PO SCH (12:30)
[2022-05-19 12:57] LABS: Glucose,Whole Blood 111 mg/dL (70-110)
[2022-05-19 14:33] VITALS: BP 150/80; TEMP 97.9
--- NOTE | 2022-05-19 14:38 | P.DS ---
Providers Date of admission: 05/18/22 23:54 Expected date of discharge: 05/19/22 Attending physician: Leonor Marti MD Consults: 05/18/22 23:52 Consult Physician Urgent Consulting Provider: Cristhian Luevano Consult Reason/Comments: breakthrough seizure Do you want consulting provider notified?: Yes 05/19/22 08:10 Consult Physician Routine Consulting Provider: Martínez Mcgovern Consult Reason/Comments: dialysis Do you want consulting provider notified?: Yes Primary care physician: Stated None Hospital Course: The patient is a 52-year-old female with a PMH of ESRD on hemodialysis, history of CVA with residual left-sided weakness, seizure disorder, hypertension, hyperlipidemia, and type II DM who was brought into the emergency room via EMS after a seizure. The history is largely obtained from ED physician and from the chart as the patient was lethargic at the time of interview and was not answering all questions appropriately. The patient reportedly had a breakthrough seizure earlier today, witnessed by family members, tonic-clonic in nature. The patient was reportedly found on the bathroom floor having a seizure after family heard a thump. The patient states that she has been compliant with her antiepileptics. Of note however, the patient has had multiple recent hospitalizations for breakthrough seizures. During her prior hospitalization, neurology could not fully evaluate the patient as she had signed out AMA. At time of interview, the patient reported feeling tired. She denied any additional complaints. History although limited as stated above due to altered mentation. Head/cervical spine CT in the emergency room revealed a midline neck supple scalp hematoma with EKG showing sinus rhythm at [address]/T-wave changes noted as reviewed by me. Laboratory evaluation was remarkable for BUN of 18, creatinine 4.1, and CO2 of 31 with glucose 190. Valproic acid level was less than 10 with serum alcohol level also less than 10. The patient received Depakote 150 mg and Keppra thousand milligrams in the ED. Neurology was consulted and recommended no EEG. Neurology recommended continuing Keppra 500 mg 1 tablet twice a day with an additional dose post dialysis, Vimpat 150 mg 1 tablet twice a day with an additional dose post dialysis, Depakote 250 mg by mouth twice a day, Onfi 5 mg 1 tablet twice a day. Onfi was presecribed by Neurologist Dr. Basha. Patient is advised to follow-up with her PCP within 1-2 days of discharge. Patient is advised to follow-up with a neurologist for further titration of her antiepileptic medication. Neurology cleared the patient for discharge. Patient was seen and examined earlier this morning. Patient reported complete resolution of her symptoms. Stated that she felt at baseline. Pertinent studies include a head CT, CT C-spine, EKG General: Somewhat chronically ill-appearing female, no distress, appears older than stated age, overweight Derm: Facial hair in hirsutism pattern noted, no unusual rashes/lesions, warm Head: atraumatic, normocephalic, symmetric Eyes: EOMI, no lid lag, anicteric sclera ENT: Nose and ears atraumatic Neck: No cervical lymphadenopathy, trachea midline, supple Mouth: no lip lesion, mucus membranes moist Cardiovascular: S1S2 reg, no murmur, positive dorsalis pedis pulse bilateral, no edema Lungs: CTA bilateral, no rhonchi, no rales, no accessory muscle use Neuro: Muscle strength 4 out of 5 of right upper and lower extremities with strength 3 out of 5 of left upper and lower extremities Psych: Alert and oriented 3 Discharge diagnosis: #Breakthrough seizure #Normocytic anemia Chronic conditions: ESRD on hemodialysis, type II DM, hypertension, hyperlipidemia, history of CVA Patient Condition at Discharge: Stable Plan - Discharge Summary Discharge Rx Participant: No New Discharge Prescriptions: Continue amLODIPine [Norvasc] 10 mg PO DAILY #30 tab Clopidogrel [Plavix] 75 mg PO DAILY #30 tab Atorvastatin [Lipitor] 40 mg PO HS Vascepa 1gm 1 gm PO BID Sevelamer [Renvela] 800 mg PO BID-W/MEALS Calcium Acetate 667 mg PO TID-W/MEALS Pantoprazole [Protonix] 40 mg PO DAILY Potassium Chloride ER [K-Dur 20] 20 meq PO BID Sevelamer [Renvela] 1,600 mg PO W/SUPPER Dulaglutide [Trulicity] 3 mg SQ Q7D Lacosamide [Vimpat] 150 mg PO MOWEFR@07,14,21 levETIRAcetam [Keppra] 500 mg PO BID@0700,2100 Metoprolol Tartrate [Lopressor] 25 mg PO BID Divalproex ER [Depakote ER] 250 mg PO BID 30 Days #60 tab levETIRAcetam [Keppra] 500 mg PO MoWeFr@1600 30 Days #15 tab hydrALAZINE HCL [Apresoline] 50 mg PO BID Changed Lacosamide [Vimpat] 150 mg PO BID@0700,1900 #0 Discharge Medication List Clopidogrel [Plavix] 75 mg PO DAILY #30 tab 09/05/20 [Rx] amLODIPine [Norvasc] 10 mg PO DAILY #30 tab 09/05/20 [Rx] Atorvastatin [Lipitor] 40 mg PO HS 03/23/21 [History] Dulaglutide [Trulicity] 3 mg SQ Q7D 03/23/21 [History] Lacosamide [Vimpat] 150 mg PO MOWEFR@,,03/23/21 [History] Sevelamer [Renvela] 800 mg PO BID-W/MEALS 03/23/21 [History] Vascepa 1gm 1 gm PO BID 03/23/21 [History] Calcium Acetate 667 mg PO TID-W/MEALS 02/25/22 [History] Metoprolol Tartrate [Lopressor] 25 mg PO BID 02/25/22 [History] Pantoprazole [Protonix] 40 mg PO DAILY 02/25/22 [History] Potassium Chloride ER [K-Dur 20] 20 meq PO BID 02/25/22 [History] levETIRAcetam [Keppra] 500 mg PO BID@0700,2100 02/25/22 [History] Divalproex ER [Depakote ER] 250 mg PO BID 30 Days #60 tab 02/28/22 [Rx] levETIRAcetam [Keppra] 500 mg PO MoWeFr@1600 30 Days #15 tab 02/28/22 [Rx] Sevelamer [Renvela] 1,600 mg PO W/SUPPER 04/29/22 [History] hydrALAZINE HCL [Apresoline] 50 mg PO BID 04/29/22 [History] Lacosamide [Vimpat] 150 mg PO BID@0700,1900 #0 05/19/22 [Rx] Follow up Appointment(s)/Referral(s): Mtat Ohara MD [Medical Doctor] - 1 Week None,Stated [Primary Care Provider] - 1-2 days Patient Instructions/Handouts: Seizure/Epilepsy Discharge Instructions & Follow-Up Activity/Diet/Wound Care/Special Instructions: Diet: Renal FU PCP within 1-2 days of DC. FU with Neurology within 1 week of DC. Take all medications as advised. Come back to the ED for any further seizures. Do not drive until cleared by your Neurologist. Discharge Disposition: HOME SELF-CARE
[2022-05-19] MEDS ORDERED: SEVELAMER 800 MG TAB PO SCH ×2 (17:30)
[2022-05-19] MEDS ORDERED: ATORVASTATIN 40 MG TAB PO SCH (21:00)
[2022-05-19] MEDS ORDERED: levETIRAcetam 500 MG TAB PO SCH (21:00)
[2022-05-20] MEDS ORDERED: LACOSAMIDE 150 MG TABLET PO SCH ×2 (07:00)
[2022-05-20] MEDS ORDERED: levETIRAcetam 500 MG TAB PO SCH (16:00)
== END 2022-05-19 17:40 | disposition home or self-care (01) ==
LOC: EC 20:32 → 6NMEDSUR 23:54
PROVIDERS: ADMIT Internal Medicine; ATTEND Internal Medicine
DX: G40.909 Epilepsy, unspecified, not intractable, without status epilepticus (principal); D63.1 Anemia in chronic kidney disease; E11.22 Type 2 diabetes mellitus with diabetic chronic kidney disease; I12.0 Hypertensive chronic kidney disease with stage 5 chronic kidney disease or end stage renal disease; N18.6 End stage renal disease; E78.5 Hyperlipidemia, unspecified; I69.354 Hemiplegia and hemiparesis following cerebral infarction affecting left non-dominant side; K21.9 Gastro-esophageal reflux disease without esophagitis; E11.40 Type 2 diabetes mellitus with diabetic neuropathy, unspecified; F31.9 Bipolar disorder, unspecified; F03.90 Unspecified dementia, unspecified severity, without behavioral disturbance, psychotic disturbance, mood disturbance, and anxiety; M89.8X9 Other specified disorders of bone, unspecified site; Z87.891 Personal history of nicotine dependence; Z99.2 Dependence on renal dialysis; Z99.3 Dependence on wheelchair; Z79.02 Long term (current) use of antithrombotics/antiplatelets; Z79.899 Other long term (current) drug therapy; Z88.0 Allergy status to penicillin
CPT/HCPCS: 96361; 96365; 96372; 99285; 93005; 80164; 80053; 80048; 80177; 83735; 85025 ×2; 80235; 72125; 70450; G0378 ×2; G0480; J1953; J1644; 36415; 80320

== ENCOUNTER 2022-07-03 15:18 | Inpatient (IN) | payer MEDICARE, OTHER ==
--- NOTE | 2022-07-03 15:56 | ED ---
Seizure HPI - General Source: EMS Mode of arrival: EMS Limitations: no limitations <Coty Cotton - Last Filed: 07/03/22 17:00> <Pb Sahni - Last Filed: 07/03/22 19:12> - General Chief Complaint: Seizure Stated Complaint: Seizure Time Seen by Provider: 07/03/22 15:23 - History of Present Illness Initial Comments: Patient is a 52-year-old female presenting to the emergency room via EMS after having a seizure home earlier today. She is well known to the emergency room department with known severe seizure disorder along with previous stroke causing left-sided weakness and foot drop along with difficulty seeing out of her right eye. She is unaccompanied by any family. She is currently awake and talking but alert and oriented 1-2 with baseline status of alert and oriented 2-3. She denies any pain at this time. She has several comorbid conditions in addition to her previous stroke and seizure history including diabetes, hypertension, end-stage renal disease on hemodialysis, obstructive s leep apnea without CPAP usage, GERD and hypothyroidism. She has multiple secondary renal processes as well including anemia and hyperphosphatasemia. (Coty Cotton) - Related Data Home Medications Medication Instructions Recorded Confirmed Atorvastatin [Lipitor] 40 mg PO HS 03/23/21 07/03/22 Dulaglutide [Trulicity] 3 mg SQ Q7D 03/23/21 07/03/22 Lacosamide [Vimpat] 150 mg PO MOWEFR@07,14,21 03/23/21 07/03/22 Sevelamer [Renvela] 800 mg PO BID-W/MEALS 03/23/21 07/03/22 Vascepa 1gm 1 gm PO BID 03/23/21 07/03/22 Calcium Acetate 667 mg PO TID-W/MEALS 02/25/22 07/03/22 Metoprolol Tartrate [Lopressor] 25 mg PO BID 02/25/22 07/03/22 Pantoprazole [Protonix] 40 mg PO DAILY 02/25/22 07/03/22 Potassium Chloride ER [K-Dur 20] 20 meq PO BID 02/25/22 07/03/22 levETIRAcetam [Keppra] 500 mg PO BID@0700,2100 02/25/22 07/03/22 Sevelamer [Renvela] 1,600 mg PO W/SUPPER 04/29/22 07/03/22 hydrALAZINE HCL [Apresoline] 50 mg PO BID 04/29/22 07/03/22 Previous Rx's Medication Instructions Recorded Clopidogrel [Plavix] 75 mg PO DAILY #30 tab 09/05/20 amLODIPine [Norvasc] 10 mg PO DAILY #30 tab 09/05/20 Divalproex ER [Depakote ER] 250 mg PO BID 30 Days #60 tab 02/28/22 levETIRAcetam [Keppra] 500 mg PO MoWeFr@1600 30 Days #15 02/28/22 tab Lacosamide [Vimpat] 150 mg PO BID@0700,1900 #0 05/19/22 Allergies Allergy/AdvReac Type Severity Reaction Status Date / Time Penicillins Allergy Itching Verified 05/19/22 10:33 Review of Systems ROS Other: All systems not noted in ROS Statement are negative. <Coty Cotton - Last Filed: 07/03/22 17:00> ROS Other: All systems not noted in ROS Statement are negative. <Pb Sahni - Last Filed: 07/03/22 19:12> ROS Statement: Those systems with pertinent positive or pertinent negative responses have been documented in the HPI. Past Medical History Past Medical History: Chest Pain / Angina, CVA/TIA, Diabetes Mellitus, GERD/Reflux, Hyperlipidemia, Hypertension, Memory Impairment, Osteoarthritis (OA), Renal Disease, Seizure Disorder, Thyroid Disorder Additional Past Medical History / Comment(s): Last seizure approximately one month ago. Spouse states she used to have seizures 4X per week until she had vagal nerve stimulator placed, now has seizures approximately once a week to once a month. Dialysis MOWEFR. Neuropathy, left drop foot, only able to walk short distances, otherwise uses wheelchair. 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 Never diagnosed with Sleep Apnea but spouse states she does stop breathing through the night and he has to shake her to start breathing again. Varicose veins. History of Any Multi-Drug Resistant Organisms: None Reported Past Surgical History: Section, Tonsillectomy, Uterine Ablation Additional Past Surgical History / Comment(s): Left arm fistula, loop recorder, vagus nerve stimulator. Past Anesthesia/Blood Transfusion Reactions: Motion Sickness Additional Past Anesthesia/Blood Transfusion Reaction / Comment(s): Family hx unknown, pt adopted. Past Psychological History: Bipolar Smoking Status: Former smoker Past Alcohol Use History: None Reported Past Drug Use History: None Reported - Past Family History Father Family Medical History: Unable to Obtain Additional Family Medical History / Comment(s): Pt adopted. <Coty Cotton - Last Filed: 07/03/22 17:00> General Exam Limitations: altered mental status General appearance: in no apparent distress, other (drowsy; slower responses) Head exam: Present: atraumatic, normocephalic, normal inspection Expanded Eyelids: Normal Inspection: Left Pupils: Regular, Round: Left (Right larger), Reactive: Left (Right slower) Sclera/Conjunctival: Normal Inspection: Left ENT exam: Present: normal exam, mucous membranes moist Neck exam: Present: normal inspection. Absent: tenderness Respiratory exam: Present: normal lung sounds bilaterally. Absent: respiratory distress, wheezes, rales, rhonchi, stridor Cardiovascular Exam: Present: regular rate, normal rhythm, normal heart sounds, systolic murmur. Absent: diastolic murmur, rubs, gallop, clicks GI/Abdominal exam: Present: soft, normal bowel sounds. Absent: distended, tenderness, guarding, rebound, rigid Extremities exam: Present: joint swelling (left foot chronic) Neurological exam: Present: alert (but drowsy, easily aroused) Expanded Neurological exam: Present: protecting the airway, other (slow speech) Patient oriented to: Present: person, place. Absent: time Motor strength exam: RUE: 5, LUE: 2/1, RLE: 4, LLE: 3 Psychiatric exam: Present: flat affect Skin exam: Present: warm, dry, intact, normal color. Absent: rash <Coty Cotton - Last Filed: 07/03/22 17:00> Course <Pb Sahni - Last Filed: 07/03/22 19:12> Vital Signs 07/03/22 07/03/22 15:23 18:24 Temperature 97.7 F Pulse Rate 92 92 Respiratory 18 18 Rate Blood Pressure 149/69 135/56 O2 Sat by Pulse 96 92 L Oximetry - Reevaluation(s) Reevaluation #1: 07/03/22 17:50 Patient was endorsed to me by ED ERISA ATTORNEY Lula (secondary to end of her shift) with the patient's labs still pending. Patient is currently A&O3, and she is requesting to be discharged home. Patient's valproic acid level is undetectable, but she tells me that she is not supposed to be taking valproic acid/Depakote. Patient states that she has been taking all of her seizure medications regularly as prescribed. Patient is a dialysis patient, and she states that she is due for her dialysis tomorrow. Patient is aware of her test results, and she feels comfortable being discharged home at this time. 07/03/22 18:12 I was just called to the patient's room by the patient's ED RN due to seizure activity. On my arrival, the patient was noted to be having a generalized tonic-clonic seizure. Patient's seizure activity spontaneously resolved after about 2 minutes. IM Ativan was ordered and given by ED RN. Given recurrent seizure activity, will plan on admitting the patient to the hospital at this time. 07/03/22 18:44 Case, H&P, test results and ED management thus far were discussed with Dr. Gonzalez. He accepts hospital admission. He agrees with neurology and nephrology consultation. He has no further recommendations at this time. (Pb Sahni) Medical Decision Making <Coty Cotton - Last Filed: 07/03/22 17:00> - Lab Data Result diagrams: 07/03/22 17:05 07/03/22 17:05 <Pb Sahni - Last Filed: 07/03/22 19:12> - Medical Decision Making 52-year-old female presenting to the emergency room after seizure earlier this afternoon currently mildly postictal with slow but appropriate responses alert and orientated 1-2 without any acute distress. No new neurological deficits indicating need for diagnostic imaging. Will obtain CBC, CMP, mag and Depakote level. no indication for further laboratory studies. Will monitor and plan for discharge back home once postictal state resolved if no further seizure activity. Labs currently pending. Patient back at baseline mentation without any further seizure activity. Case discussed with and transfer to Dr. Sahni for disposition [id number].. (Coty Cotton) Patient's labs are fairly unremarkable other than demonstrating chronic renal failure. Patient's noncontrast head CT shows no acute intracranial process. Patient is scheduled to be dialyzed tomorrow. Patient's valproic acid level is undetectable, but she tells me that she is not taking or supposed to be taking valproic acid/Depakote. Given recurrent seizure activity while in the ED, I fee l that it would be best for the patient to be admitted to the hospital for monitoring and neurology consultation. Dr. Gonzalez has accepted hospital admission. (Pb Sahni) - Lab Data Lab Results 07/03/22 07/03/22 07/03/22 Range/Units 17:05 17:05 17:05 WBC 8.0 (3.8-10.6) k/uL RBC 4.19 (3.80-5.40) m/uL Hgb 12.4 (11.4-16.0) gm/dL Hct 35.8 (34.0-46.0) % MCV 85.5 (80.0-100.0) fL MCH 29.5 (25.0-35.0) pg MCHC 34.5 (31.0-37.0) g/dL RDW 14.5 (11.5-15.5) % Plt Count 190 (150-450) k/uL MPV 10.4 Neutrophils % 77 % Lymphocytes % 17 % Monocytes % 4 % Eosinophils % 1 % Basophils % 1 % Neutrophils # 6.1 (1.3-7.7) k/uL Lymphocytes # 1.3 (1.0-4.8) k/uL Monocytes # 0.3 (0-1.0) k/uL Eosinophils # 0.0 (0-0.7) k/uL Basophils # 0.1 (0-0.2) k/uL Sodium 138 (137-145) mmol/L Potassium 5.1 (3.5-5.1) mmol/L Chloride 95 L (98-107) mmol/L Carbon Dioxide 28 (22-30) mmol/L Anion Gap 15 mmol/L BUN 43 H (7-17) mg/dL Creatinine 8.86 H* (0.52-1.04) mg/dL Est GFR (CKD-EPI)AfAm 5 (>60 ml/min/1.73 sqM) Est GFR (CKD-EPI)NonAf 5 (>60 ml/min/1.73 sqM) Glucose 145 H (74-99) mg/dL Calcium 9.5 (8.4-10.2) mg/dL Magnesium 2.3 (1.6-2.3) mg/dL Total Bilirubin 0.4 (0.2-1.3) mg/dL AST 25 (14-36) U/L ALT 20 (4-34) U/L Alkaline Phosphatase 113 (38-126) U/L Total Protein 7.7 (6.3-8.2) g/dL Albumin 4.6 (3.5-5.0) g/dL Valproic Acid <10.0 ug/mL - Radiology Data Noncontrast head CT: 1. No acute intracranial process. 2. Remote lacunar injuries along with nonspecific white matter changes likely secondary to chronic microangiopathy. (Pb Sahni) Critical Care Time Critical Care Time: Yes Total Critical Care Time: 35 <Pb Sahni - Last Filed: 07/03/22 19:12> Disposition <Coty Cotton - Last Filed: 07/03/22 17:00> Is patient prescribed a controlled substance at d/c from ED?: No Time of Disposition: 18:45 <Pb Sahni - Last Filed: 07/03/22 19:12> Clinical Impression: Recurrent seizures, Chronic renal failure Disposition: ADMITTED IP TO THIS [facility] Condition: Stable
[2022-07-03 17:28] LABS: ALT 20 U/L (4-34); AST 25 U/L (14-36); African American GFR (CKD) 5 (>60 ml/min/1.73 sqM); Albumin 4.6 g/dL (3.5-5.0); Alkaline Phosphatase 113 U/L (38-126); Anion Gap 15 mmol/L; Blood Urea Nitrogen 43 mg/dL (7-17); Calcium 9.5 mg/dL (8.4-10.2); Carbon Dioxide 28 mmol/L (22-30); Chloride 95 mmol/L (98-107); Glucose 145 mg/dL (74-99); Non-African American GFR(CKD) 5 (>60 ml/min/1.73 sqM); Sodium 138 mmol/L (137-145); Total Bilirubin 0.4 mg/dL (0.2-1.3); Total Protein 7.7 g/dL (6.3-8.2)
[2022-07-03 17:29] LABS: Potassium 5.1 mmol/L (3.5-5.1)
[2022-07-03 17:33] LABS: Valproic Acid (Depakene) <10.0 ug/mL
[2022-07-03 18:09] LABS: Basophils # (A) 0.1 k/uL (0-0.2); Basophils % (A) 1 %; Eosinophils % (A) 1 %; HCT 35.8 % (34.0-46.0); HGB 12.4 gm/dL (11.4-16.0); Lymphocytes # (A) 1.3 k/uL (1.0-4.8); Lymphocytes % (A) 17 %; MCH 29.5 pg (25.0-35.0); MCHC 34.5 g/dL (31.0-37.0); MCV 85.5 fL (80.0-100.0); Mean Platelet Volume 10.4; Monocytes # (A) 0.3 k/uL (0-1.0); Monocytes % (A) 4 %; Neutrophils # (A) 6.1 k/uL (1.3-7.7); Neutrophils % (A) 77 %; Platelet Count 190 k/uL (150-450); RBC 4.19 m/uL (3.80-5.40); RDW 14.5 % (11.5-15.5)
[2022-07-03] MEDS ORDERED: NALOXONE 0.4 MG/ML 1 ML VIAL IV PRN (18:45)
[2022-07-03] MEDS ORDERED: LORazepam 2 MG/ML INJ IV PRN (18:48)
--- NOTE | 2022-07-03 19:03 | CT ---
EXAMINATION TYPE: CT brain wo con CT DLP: 1192.4 mGycm, Automated exposure control for dose reduction was used. DATE OF EXAM: 07/03/2022 6:50 PM COMPARISON: CT brain 05/18/2022, CT brain 04/30/2022, CT brain 02/25/2022. CLINICAL INDICATION:Female, 52 years old with history of seizure, SEIZURE TECHNIQUE: Brain: Axial CT images of the brain were obtained with coronal and sagittal reformats created and rev iewed. Contrast used: None. Oral contrast used: None. FINDINGS: Brain: Extra-axial spaces: No abnormal extra-axial fluid collections. Ventricular system: Within normal limits Cerebral parenchyma: Cerebral atrophy. No acute intraparenchymal hemorrhage or mass effect. The wesley bong of the noon[place]-white junctions are well differentiated. Cerebellum: Focal areas of encephalomalacia lateral cerebellar hemispheres. Similar to prior exams. Mass effect: No evidence of midline shift. Intracranial vasculature: Atherosclerotic calcifications of the intracranial vessels. Soft tissues: Normal. Calvarium/osseous structures: No depressed skull fracture. Paranasal sinuses and mastoid air cells: Mild scattered paranasal sinus disease. Visualized orbits: Orbital contents are intact. IMPRESSION: 1. No acute intracranial process. 2. Remote lacunar injuries along with nonspecific white matter changes likely secondary to chronic mi croangiopathy.
[2022-07-03] MEDS ORDERED: LORazepam 2 MG/ML INJ IM STA (19:07)
[2022-07-03] MEDS: levETIRAcetam 500 MG TAB PO SCH (22:53)
[2022-07-03] MEDS: LACOSAMIDE 50 MG TABLET PO SCH (22:53)
[2022-07-03] MEDS: DIVALPROEX ER 250 MG TAB.ER.24H PO SCH (22:54)
--- NOTE | 2022-07-04 04:59 | P.HPIM ---
History of Present Illness H&P Date: 07/03/22 Chief Complaint: seizure 52 year old female with ESRD on HD MWF, seizure disorder patient comes in from home, after having a breakthrough seizure, patient is not providing any meaning ful history , she is not participating in the interview, does not answer any of my questions. she is awake, but not cooperating. chart review done, patient is well known in the ED with non compliance and frequent presentations with breakthrough seizures. she was found to have undetectable level of valproic acid, which is one of her seizure meds. patient is admitted for neuro evaluation and adjustment of her home meds no other information is available at this time blood work unremarkable , except for ESRD, patient received HD on Monday (2days prior to presentation ) Review of Systems ROS unobtainable: due to mental status Past Medical History Past Medical History: Chest Pain / Angina, CVA/TIA, Diabetes Mellitus, GERD/Reflux, Hyperlipidemia, Hypertension, Memory Impairment, Osteoarthritis (OA), Renal Disease, Seizure Disorder, Thyroid Disorder Additional Past Medical History / Comment(s): Last seizure approximately one month ago. Spouse states she used to have seizures 4X per week until she had vagal nerve stimulator placed, now has seizures approximately once a week to once a month. Dialysis MOWEFR. Neuropathy, left drop foot, only able to walk short distances, otherwise uses wheelchair. 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 Never diagnosed with Sleep Apnea but spouse states she does stop breathing through the night and he has to shake her to start breathing again. Varicose veins. History of Any Multi-Drug Resistant Organisms: None Reported Past Surgical History: Section, Tonsillectomy, Uterine Ablation Additional Past Surgical History / Comment(s): Left arm fistula, loop recorder, vagus nerve stimulator. Past Anesthesia/Blood Transfusion Reactions: Motion Sickness Additional Past Anesthesia/Blood Transfusion Reaction / Comment(s): Family hx unknown, pt adopted. Past Psychological History: Bipolar Smoking Status: Former smoker Past Alcohol Use History: None Reported Past Drug Use History: None Reported - Past Family History Father Family Medical History: Unable to Obtain Additional Family Medical History / Comment(s): Pt adopted. Medications and Allergies Home Medications Medication Instructions Recorded Confirmed Type Clopidogrel [Plavix] 75 mg PO DAILY #30 tab 09/05/20 07/03/22 Rx amLODIPine [Norvasc] 10 mg PO DAILY #30 tab 09/05/20 07/03/22 Rx Atorvastatin [Lipitor] 40 mg PO HS 03/23/21 07/03/22 History Dulaglutide [Trulicity] 3 mg SQ Q7D 03/23/21 07/03/22 History Lacosamide [Vimpat] 150 mg PO MOWEFR@07,14,21 03/23/21 07/03/22 History Sevelamer [Renvela] 800 mg PO BID-W/MEALS 03/23/21 07/03/22 History Vascepa 1gm 1 gm PO BID 03/23/21 07/03/22 History Calcium Acetate 667 mg PO TID-W/MEALS 02/25/22 07/03/22 History Metoprolol Tartrate [Lopressor] 25 mg PO BID 02/25/22 07/03/22 History Pantoprazole [Protonix] 40 mg PO DAILY 02/25/22 07/03/22 History Potassium Chloride ER [K-Dur 20] 20 meq PO BID 02/25/22 07/03/22 History levETIRAcetam [Keppra] 500 mg PO BID@0700,2100 02/25/22 07/03/22 History Divalproex ER [Depakote ER] 250 mg PO BID 30 Days #60 tab 02/28/22 07/03/22 Rx levETIRAcetam [Keppra] 500 mg PO MoWeFr@1600 30 Days #15 02/28/22 07/03/22 Rx tab Sevelamer [Renvela] 1,600 mg PO W/SUPPER 04/29/22 07/03/22 History hydrALAZINE HCL [Apresoline] 50 mg PO BID 04/29/22 07/03/22 History Lacosamide [Vimpat] 150 mg PO BID@0700,1900 #0 05/19/22 07/03/22 Rx Allergies Allergy/AdvReac Type Severity Reaction Status Date / Time Penicillins Allergy Itching Verified 05/19/22 10:33 Physical Exam Vitals: Vital Signs Temp Pulse Resp BP Pulse Ox 07/03/22 18:24 92 18 135/56 92 L 07/03/22 15:23 97.7 F 92 18 149/69 96 Intake and Output 07/03/22 07/03/2207/03/22 06:59 14:59 22:59 Other: Weight 83.915 kg Constitutional: No acute distress, uncooperative , awake, does not participate in exam or interview Eyes: Anicteric sclerae, moist conjunctiva, Pupils equal round reactive to light ENMT: NC/AT Oropharynx clear, no erythema, or exudates Neck: Supple, no masses, or JVD No carotid bruits No thyromegaly Lungs: Clear to auscultation Clear to percussion Normal respiratory effort, no accessory muscle use Cardiovascular: Heart regular in rate and rhythm, No murmurs, gallops, or rubs No peripheral edema Abdominal: Soft Nontender, no guarding, rebound or rigidity Abdomen moving with respiration Normoactive bowel sounds No hepatomegaly, No splenomegaly No palpable mass No abdominal wall hernia noted Skin: Normal temperature, tone, texture, turgor Extremities: left arm AVF with positive thrill No digital cyanosis No clubbing Pedal pulses intact and symmetrical Radial pulses intact and symmetrical No calf tenderness Psychiatric: Alert awake , does not answer any of my question s Neuro unable to perform , patient does not cooperate Results CBC & Chem 7: 07/03/22 17:05 07/03/22 17:05 Labs: Abnormal Lab Results - Last 24 Hours (Table) 07/03/22 Range/Units 17:05 Chloride 95 L (98-107) mmol/L BUN 43 H (7-17) mg/dL Creatinine 8.86 H* (0.52-1.04) mg/dL Glucose 145 H (74-99) mg/dL Assessment and Plan Assessment: breakthrough seizures valproic acid level <10 resume kristie mackey vimpat neuro consult frequent admissions for breakthrough seizures seizure precautions chronic conditions ESRD on HD [facility] nephrology consult for HD resume home meds hypertension , resume home BP meds DM , insulin sliding scale full code dvt ppx heparin sc tid
[2022-07-04 06:29] LABS: Glucose,Whole Blood 94 mg/dL (70-110)
[2022-07-04] MEDS: LACOSAMIDE 50 MG TABLET PO SCH ×2 (06:30→22:05)
[2022-07-04] MEDS: levETIRAcetam 500 MG TAB PO SCH ×2 (06:30→21:11)
[2022-07-04] MEDS: INSULIN ASPART (NovoLOG) 100 UNIT/ML VIAL SQ SCH ×4 (06:31→21:11)
[2022-07-04 06:34] LABS: ALT 18 U/L (4-34); African American GFR (CKD) 5 (>60 ml/min/1.73 sqM); Albumin 4.3 g/dL (3.5-5.0); Albumin/Globulin Ratio 1.5; Anion Gap 15 mmol/L; Blood Urea Nitrogen 50 mg/dL (7-17); Calcium 9.3 mg/dL (8.4-10.2); Carbon Dioxide 25 mmol/L (22-30); Chloride 97 mmol/L (98-107); Globulin 2.9 g/dL; Glucose 83 mg/dL (74-99); Non-African American GFR(CKD) 4 (>60 ml/min/1.73 sqM); Sodium 137 mmol/L (137-145); Total Bilirubin 0.5 mg/dL (0.2-1.3); Total Protein 7.2 g/dL (6.3-8.2)
[2022-07-04 06:41] LABS: AST 26 U/L (14-36); Alkaline Phosphatase 88 U/L (38-126); Basophils # (A) 0.1 k/uL (0-0.2); Basophils % (A) 1 %; Eosinophils # (A) 0.1 k/uL (0-0.7); Eosinophils % (A) 1 %; HCT 33.4 % (34.0-46.0); HGB 11.1 gm/dL (11.4-16.0); Lymphocytes # (A) 2.3 k/uL (1.0-4.8); Lymphocytes % (A) 30 %; MCH 29.8 pg (25.0-35.0); MCHC 33.2 g/dL (31.0-37.0); MCV 89.6 fL (80.0-100.0); Mean Platelet Volume 9.5; Monocytes # (A) 0.5 k/uL (0-1.0); Monocytes % (A) 7 %; Neutrophils # (A) 4.5 k/uL (1.3-7.7); Neutrophils % (A) 59 %; Platelet Count 251 k/uL (150-450); Potassium 5.1 mmol/L (3.5-5.1); RBC 3.72 m/uL (3.80-5.40); RDW 14.4 % (11.5-15.5); WBC 7.6 k/uL (3.8-10.6)
[2022-07-04] MEDS: VASCEPA 1 GM PO SCH ×2 (09:30→22:06)
[2022-07-04] MEDS: PANTOPRAZOLE 40 MG TABLET PO SCH (09:31)
[2022-07-04] MEDS: HEPARIN SODIUM,PORCINE/PF 5,000 UNIT/0.5 ML SYRINGE SQ SCH ×2 (09:31→16:19)
[2022-07-04] MEDS: amLODIPine 10 MG TAB PO SCH (09:31)
[2022-07-04] MEDS: CLOPIDOGREL 75 MG TAB PO SCH (09:31)
[2022-07-04] MEDS: METOPROLOL TARTRATE 25 MG TAB PO SCH ×2 (09:32→21:11)
[2022-07-04] MEDS: SEVELAMER 800 MG TAB PO SCH ×4 (10:02→17:30)
[2022-07-04] MEDS: hydrALAZINE HCL 50 MG TAB PO SCH ×2 (10:03→21:12)
[2022-07-04] MEDS: DIVALPROEX ER 250 MG TAB.ER.24H PO SCH ×2 (10:03→20:20)
--- NOTE | 2022-07-04 12:27 | P.NPCON ---
History of Present Illness - Reason for Consult end stage renal disease - History of Present Illness Reason for consultation: End-stage renal disease History of present illness: Patient is a 52-year-old female seen in renal consultation for end-stage renal disease. She is maintained on hemodialysis on Monday schedule. Last treatment was on Monday. Patient came to the hospital after having a breakthrough seizure. Patient has dysarthria and is not a very reliable historian. Patient states she has been taking her medications as prescribed. Patient's valproic acid level was noted to be low. Hemodynamically stable. Denies chest pain or shortness of breath. No edema. No fever or chills. No vomiting or diarrhea. Vital signs are stable. General: No acute distress. HEENT: Head exam is unremarkable. LUNGS: Breath sounds decreased. HEART: Rate and Rhythm are regular. ABDOMEN: Soft, no distention. EXTREMITITES: No edema. Past Medical History Past Medical History: Chest Pain / Angina, CVA/TIA, Diabetes Mellitus, GERD/Reflux, Hyperlipidemia, Hypertension, Memory Impairment, Osteoarthritis (OA), Renal Disease, Seizure Disorder, Thyroid Disorder Additional Past Medical History / Comment(s): Last seizure approximately one month ago. Spouse states she used to have seizures 4X per week until she had vagal nerve stimulator placed, now has seizures approximately once a week to once a month. Dialysis MOWEFR. Neuropathy, left drop foot, only able to walk short distances, otherwise uses wheelchair. 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 Never diagnosed with Sleep Apnea but s pouse states she does stop breathing through the night and he has to shake her to start breathing again. Varicose veins. History of Any Multi-Drug Resistant Organisms: None Reported Past Surgical History: Section, Tonsillectomy, Uterine Ablation Additional Past Surgical History / Comment(s): Left arm fistula, loop recorder, vagus nerve stimulator. Past Anesthesia/Blood Transfusion Reactions: Motion Sickness Additional Past Anesthesia/Blood Transfusion Reaction / Comment(s): Family hx unknown, pt adopted. Past Psychological History: Bipolar Smoking Status: Former smoker Past Alcohol Use History: None Reported Past Drug Use History: None Reported - Past Family History Father Family Medical History: Unable to Obtain Additional Family Medical History / Comment(s): Pt adopted. Medications and Allergies Home Medications Medication Instructions Recorded Confirmed Type Clopidogrel [Plavix] 75 mg PO DAILY #30 tab 09/05/20 07/03/22 Rx amLODIPine [Norvasc] 10 mg PO DAILY #30 tab 09/05/20 07/03/22 Rx Atorvastatin [Lipitor] 40 mg PO HS 03/23/21 07/03/22 History Dulaglutide [Trulicity] 3 mg SQ Q7D 03/23/21 07/03/22 History Lacosamide [Vimpat] 150 mg PO MOWEFR@03/23/21 07/03/22 History Sevelamer [Renvela] 800 mg PO BID-W/MEALS 03/23/21 07/03/22 History Vascepa 1gm 1 gm PO BID 03/23/21 07/03/22 History Calcium Acetate 667 mg PO TID-W/MEALS 02/25/22 07/03/22 History Metoprolol Tartrate [Lopressor] 25 mg PO BID 02/25/22 07/03/22 History Pantoprazole [Protonix] 40 mg PO DAILY 02/25/22 07/03/22 History Potassium Chloride ER [K-Dur 20] 20 meq PO BID 02/25/22 07/03/22 History levETIRAcetam [Keppra] 500 mg PO BID@0700,2100 02/25/22 07/03/22 History Divalproex ER [Depakote ER] 250 mg PO BID 30 Days #60 tab 02/28/22 07/03/22 Rx levETIRAcetam [Keppra] 500 mg PO MoWeFr@1600 30 Days #15 02/28/22 07/03/22 Rx tab Sevelamer [Renvela] 1,600 mg PO W/SUPPER 04/29/22 07/03/22 History hydrALAZINE HCL [Apresoline] 50 mg PO BID 04/29/22 07/03/22 History Lacosamide [Vimpat] 150 mg PO BID@0700,1900 #0 05/19/22 07/03/22 Rx Allergies Allergy/AdvReac Type Severity Reaction Status Date / Time Penicillins Allergy Itching Verified 05/19/22 10:33 Physical Exam Vitals: Vital Signs Temp Pulse Pulse Resp BP BP Pulse Ox 07/04/22 07:00 98 F 96 18 161/86 99 07/04/22 06:00 98.6 F 88 16 106/76 100 07/04/22 05:37 98.4 F 72 16 132/78 98 07/04/22 00:39 82 18 152/85 100 07/03/22 23:00 98.8 F 79 16 153/85 99 07/03/22 18:24 92 18 135/56 92 L 07/03/22 15:23 97.7 F 92 18 149/69 96 Intake and Output 07/03/22 07/04/22 07/04/22 22:59 06:59 14:59 Intake Total 118 Balance 118 Intake: Oral 118 Other: Weight 83.915 kg Results - Lab Results Most recent lab results Calcium 9.3 mg/dL (8.4-10.2) 07/04/22 05:30 Magnesium 2.3 mg/dL (1.6-2.3) 07/03/22 17:05 07/04/22 05:30 07/04/22 05:30 Assessment and Plan Plan: Assessment: 1. End-stage renal disease maintained on hemodialysis on Monday schedule. 2. Seizures. Neurology consulted. 3. Hypertension with chronic kidney disease. Stable. 4. Diabetes mellitus. 5. Chronic kidney disease mineral bone disease maintained on Renvela. Plan: Hemodialysis today. Thank you for the consultation. I will continue to follow the patient with you during her hospital stay.
[2022-07-04 12:43] LABS: Glucose,Whole Blood 167 mg/dL (70-110)
--- NOTE | 2022-07-04 13:10 | P.CNNES ---
History of Present Illness Consult date: 07/04/22 Requesting physician: Pb Sahni Reason for Consult: Recurrent seizures History of Present Illness: Patient is a 52-year-old right-handed female with long-standing history of seizure disorder, and has presented with breakthrough seizures multiple times in the past. Patient has history of CVA with left hemiparesis. She is also on hemodialysis for ESRD, diabetes, hypertension. Patient came to the hospital by ambulance yesterday at 3:18 PM. As per EMS flow sheet, they were called for patient with a seizure. On their arrival, patient was laying on the bathroom floor, alert and oriented 1. Patient was post ictal. No emesis or incontinence of urine or bowels present. Patient's has mentioned that she has not had a seizure for about a month. The seizure lasted approximately 40 seconds. Patient was sitting on the toilet and the seizure occurred. Patient did fall to the floor. Patient had a small superficial laceration to the bridge of her nose. Patient started to answer questions by nodding her head. Patient denied any pain. No nausea. No visual disturbance. EKG shows sinus tachycardia. Blood sugar was 147. Blood pressure 180/78, pulse rate 100, respiration 24 and saturation 97%. Patient at present states that she missed the dose on Monday and Monday. But later on she states that she took 3 tablets on Monday and 2 tablets on Monday, which is the usual dose of her seizure medications. Patient wanted me to check with her . I spoke to patient's on the phone, who concurred with the history as mentioned in the EMS flow sheet. He states that she took the night dose of seizure medication a bit later at 10 PM instead of the usual time of 8 PM. She does not miss a dose of seizure medication. Patient generally stays in the wheelchair. The only time she walks is when she has to go 4-5 steps upstairs from driveway into the house. Patient has a chronic left dropfoot from previous CVA. She uses a bike pedal on the frame (not on a bicycle) while sitting and she uses it every day. Patient's home medications include Vimpat 150 mg twice a day, and 150 mg extra dose every Monday, Monday, Monday postdialysis, Keppra 500 mg twice a day and Keppra 500 mg every Monday, Monday, Monday after dialysis, Depakote 250 mg twice a day, Plavix 75 mg, amlodipine 10 mg, Lipitor 40 mg, Protonix hydralazine. Patient most recently seen by Dr. Cristhian Luevano on 05/19/2022, in which her breakthrough seizure was felt to be related to noncompliance with medication. Patient has refractory epilepsy with VNS placement. Also has history of stroke with residual left hemiparesis. She has diabetes, ESRD on dialysis. Patient's last Keppra level was 24.3 (3-60) on 05/18/2022, whereas her Vimpat level was 5.2(up to 15.0) Patient's blood test shows normal CBC, electrolytes are normal, BUN 43, creatinine 8.86. Hepatic panel is normal, Depakote <10.0 CT head reported no acute process. Remote lacunar injuries along with nonspecific white matter changes, likely secondary to chronic microangiopathy. On my review, there is evidence of old lacune in the left basal ganglia, and bilateral cerebellar hemisphere and right pontine infarct, which are all old, s een in the previous CT head. Patient says that she stopped smoking 7 years ago, does not remember how much she smoked prior to that. Patient claims that she had history of 5 strokes in the past. Review of Systems Constitutional: Denies chills, Denies fever Eyes: right loss of peripheral vision, bilateral diplopia, bilateral pain Ears: bilateral: decreased hearing Ears, nose, mouth and throat: Denies headache, Denies sore throat Cardiovascular: Denies chest pain, Denies shortness of breath Respiratory: Denies cough Gastrointestinal: Denies abdominal pain, Denies diarrhea, Denies nausea, Denies vomiting Musculoskeletal: Denies myalgias, Denies shooting arm pain Integumentary: Denies pruritus, Denies rash Neurological: Reports as per HPI Psychiatric: Reports depression Past Medical History Past Medical History: Chest Pain / Angina, CVA/TIA, Diabetes Mellitus, GERD/Reflux, Hyperlipidemia, Hypertension, Memory Impairment, Osteoarthritis (OA), Renal Disease, Seizure Disorder, Thyroid Disorder Additional Past Medical History / Comment(s): Last seizure approximately one month ago. Spouse states she used to have seizures 4X per week until she had vagal nerve stimulator placed, now has seizures approximately once a week to once a month. Dialysis MOWEFR. Neuropathy, left drop foot, only able to walk short distances, otherwise uses wheelchair. 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 Never diagnosed with Sleep Apnea but spouse states she does stop breathing through the night and he has to shake her to start breathing again. Varicose veins. History of Any Multi-Drug Resistant Organisms: None Reported Past Surgical History: Section, Tonsillectomy, Uterine Ablation Additional Past Surgical History / Comment(s): Left arm fistula, loop recorder, vagus nerve stimulator. Past Anesthesia/Blood Transfusion Reactions: Motion Sickness Additional Past Anesthesia/Blood Transfusion Reaction / Comment(s): Family hx unknown, pt adopted. Past Psychological History: Bipolar Smoking Status: Former smoker Past Alcohol Use History: None Reported Past Drug Use History: None Reported - Past Family History Father Family Medical History: Unable to Obtain Additional Family Medical History / Comment(s): Pt adopted. Medications and Allergies Home Medications Medication Instructions Recorded Confirmed Type Clopidogrel [Plavix] 75 mg PO DAILY #30 tab 09/05/20 07/03/22 Rx amLODIPine [Norvasc] 10 mg PO DAILY #30 tab 09/05/20 07/03/22 Rx Atorvastatin [Lipitor] 40 mg PO HS 03/23/21 07/03/22 History Dulaglutide [Trulicity] 3 mg SQ Q7D 03/23/21 07/03/22 History Lacosamide [Vimpat] 150 mg PO MOWEFR@07,14,21 03/23/21 07/03/22 History Sevelamer [Renvela] 800 mg PO BID-W/MEALS 03/23/21 07/03/22 History Vascepa 1gm 1 gm PO BID 03/23/21 07/03/22 History Calcium Acetate 667 mg PO TID-W/MEALS 02/25/22 07/03/22 History Metoprolol Tartrate [Lopressor] 25 mg PO BID 02/25/22 07/03/22 History Pantoprazole [Protonix] 40 mg PO DAILY 02/25/22 07/03/22 History Potassium Chloride ER [K-Dur 20] 20 meq PO BID 02/25/22 07/03/22 History levETIRAcetam [Keppra] 500 mg PO BID@0700,2100 02/25/22 07/03/22 History Divalproex ER [Depakote ER] 250 mg PO BID 30 Days #60 tab 02/28/22 07/03/22 Rx levETIRAcetam [Keppra] 500 mg PO MoWeFr@1600 30 Days #15 02/28/22 07/03/22 Rx tab Sevelamer [Renvela] 1,600 mg PO W/SUPPER 04/29/22 07/03/22 History hydrALAZINE HCL [Apresoline] 50 mg PO BID 04/29/22 07/03/22 History Lacosamide [Vimpat] 150 mg PO BID@0700,1900 #0 05/19/22 07/03/22 Rx Allergies Allergy/AdvReac Type Severity Reaction Status Date / Time Penicillins Allergy Itching Verified 05/19/22 10:33 Physical Examination - Vital Signs Vital Signs: Vital Signs Temp Pulse Pulse Resp BP BP Pulse Ox 07/04/22 07:00 98 F 96 18 161/86 99 07/04/22 06:00 98.6 F 88 16 106/76 100 07/04/22 05:37 98.4 F 72 16 132/78 98 07/04/22 00:39 82 18 152/85 100 07/03/22 23:00 98.8 F 79 16 153/85 99 07/03/22 18:24 92 18 135/56 92 L 07/03/22 15:23 97.7 F 92 18 149/69 96 Intake and Output 07/03/22 07/04/22 07/04/22 22:59 06:59 14:59 Other: Weight 83.915 kg Patient is a middle aged female, in no acute distress. Patient is alert awake, but with significant slow mentation. Patient is oriented to time place and person. Patient knows it is June 2022 and that she is in [facility], in [place] in [place]. She could not tell name of the current or the previous Pres., states, does not follow the politics. Speech and language functions are normal. Patient can name and repeat very well. No aphasia or dysarthria. Attention, concentration and fund of knowledge is adequate. On cranial nerve examination, pupils are equal, round and reacting to light. Patient has cataract in the right eye, for which she is undergoing surgery this Monday. Her visual reich revealed restricted visual field on the right and also in the lower parts. Visual neglect was difficult to assess with her men tation and visual deficits. Extraocular muscles are intact with no nystagmus. Patient has slight right facial asymmetry. Her tongue protrudes to the midline. Palatal elevation and sensation normal, hearing is decreased and shoulder shrug decreased on the left, facial sensation normal. On muscle strength testing, there is obvious left pronator drift and the strength is (right/left) deltoid 5/4, biceps 5/4, triceps 5/5, food operations manager 5/4+, hip flexion 5/4-3+, ankle dorsiflexion 5/1-2. Deep tendon reflexes are brisk and plantars upgoing bilaterally. Sensory to touch is equal with no neglect on double simultaneous stimulation. Cerebellar function showed ataxia for [id number] testing only on the left side, but not on the right. Tone is increased on the left and bulk of muscles normal. Gait deferred.. On general examination, there is no carotid bruit or murmur, S1-S2 audible. Chest is clear on consultation. Abdomen is soft nontender. No organomegaly, bowel sounds present. Peripheral pulses are present. No edema. Results - Laboratory Findings CBC and BMP: 07/04/22 05:30 07/04/22 05:30 Abnormal Lab Findings: Abnormal Labs 07/03/22 07/04/22 07/04/22 17:05 05:30 05:30 RBC 3.72 L Hgb 11.1 L Hct 33.4 L Chloride 95 L 97 L BUN 43 H 50 H Creatinine 8.86 H* 9.58 H* Glucose 145 H Assessment and Plan Assessment: * Long-standing history of seizure disorder, came with breakthrough seizure. Uncertain if patient is compliant with the medication, although her blood level from 05/18/2022 appears be therapeutic of Vimpat and Keppra. * VNS placement 2 or 3 years ago * History of CVA with left hemiparesis * ESRD, on hemodialysis * Diabetes * Hypertension Plan: * Check Keppra level. * Continue Keppra 500 mg twice a day an extra 500 mg 3 times a week postdialysis * Continue Vimpat 150 mg twice a day and extra Vimpat 150 mg twice a day 3 times a week postdialysis. * Patient also on Depakote 250 mg twice a day. * Patient has been having recurrent seizures, frequently comes to the hospital. We will check prolonged EEG for better evaluation of underlying epileptiform activity. * Dr. Luevano has previously recommended patient to be started on Onfi, but has not been started on it yet. * Neurology will follow. Thank you for the consult.
[2022-07-04] MEDS ORDERED: LACOSAMIDE 150 MG TABLET PO PRN (16:19)
[2022-07-04 17:09] LABS: Glucose,Whole Blood 110 mg/dL (70-110)
[2022-07-04] MEDS: levETIRAcetam 500 MG TAB PO PRN (17:28)
--- NOTE | 2022-07-04 18:28 | P.PN ---
Subjective Progress Note Date: 07/04/22 Hospital course: Patient is a very pleasant 52-year-old female with a past medical history of end-stage renal disease on dialysis Mondays/Wednesdays/Fridays, known seizure disorder with recurrent breakthrough seizures, CVA with left-sided deficits and right-sided visual impairments, hypertension, hyperlipidemia and type II [id number] diabetes mellitus. She presented to the emergency department from home via EMS on 07/03/22 with a chief complaint of breakthrough seizure. She underwent full evaluation in the emergency department. CBC unremarkable and CMP was consistent with ESRD with BUN of 43 and creatinine of 8.86. Patient's last dialysis session was Monday07/01/22. Valproic acid level was subtherapeutic at less then 10.0. It is unclear if patient has been taking medications as prescribed. Patient was admitted under services with consultation to nephrology and neurology. Patient reports that she lives at home with her and reports she ambulates with use of walker. Physical exam: Vital signs reviewed and stable. General: Nontoxic, no distress and appears stated age. Derm: Skin warm and dry, normal coloration for ethnicity. Head: Atraumatic, normocephalic and symmetric. Eyes: EOMs intact, no lid lag, and anicteric sclera Mouth: no lip lesions, mucus membranes moist Cardiovascular: regular rate and rhythm with normal S1S2, stage III systolic murmur, positive posterior tibial pulses bilaterally, and cap refill < [address] AV fistula left upper extremity with bruit and thrill intact. Lungs: Respirations even, regular, and unlabored on room air. Lungs CTA bilaterally, no rhonchi, no rales, no wheezing, and no accessory muscle usage. Abdominal: soft, nontender to palpation, no guarding, no appreciable organomegaly Ext: ROM intact. No gross muscle atrophy, no edema, no contractures Neuro: Speech clear, face symmetrical and CN II-XII grossly intact with no noted focal neuro deficits Psych: Alert and oriented to person, place, time, and situation. Appropriate and pleasant affect. Assessment and Plan of Care: Breakthrough seizure -Seizure precautions, aspiration precautions, and fall precautions in place. -Depakote level subtherapeutic at less than 10.0. Keppra level pending. -Neurology following, recommending prolonged 2-1/2 hour EEG. -Patient to continue antiepileptic medications including Depakote, Vimpat, and Keppra. Discussed with neurology and he is recommending patient take an additional dose (in addition to daily prescribed doses) of Keppra 500 mg and Vimpat 150 mg every Monday, Monday, and Monday after dialysis is complete. -Patient informed of [place] state law stating no driving until seizure free for 6 months. Patient also instructed to avoid climbing ladders, operating dangerous or heavy machinery or unsupervised swimming until seizure free for 6 months. ESRD on dialysis -Nephrology following and has scheduled patient to undergo dialysis later today. -Continued close monitoring of renal function and electrolytes throughout hospitalization. History of CVA with left-sided deficits and right-sided visual impairments -Continue atorvastatin and Plavix. -Provide safe and supportive care and assistance as needed. -Fall precautions Hypertension Monitor vital signs and continue daily medication regimen with metoprolol, hydralazine, and amlodipine. Hyperlipidemia Continue daily medication regimen with atorvastatin 40 mg nightly. Heart healthy and carb consistent diet. Type 2 diabetes mellitus Glycemic protocol with NovoLog sliding scale. CODE STATUS: Full code DVT prophylaxis: Heparin Discussed with: Patient, neurology, and RN Anticipated discharge date: Within the next 24-[address]: Home A total of 34 minutes was spent on the care of this complex patient more than 50% of the time was spent in counseling and care coordination. Objective - Vital Signs Vital signs: Vital Signs Temp 98.6 F 07/04/22 06:00 Pulse 88 07/04/22 06:00 Resp 16 07/04/22 06:00 BP 106/76 07/04/22 06:00 Pulse Ox 100 07/04/22 06:00 FiO2 Intake & Output 07/03/22 07/04/22 07/04/22 18:59 06:59 18:59 Weight 83.915 kg - Labs CBC & Chem 7: 07/04/22 05:30 07/04/22 05:30 Labs: Abnormal Lab Results - Last 24 Hours (Table) 07/03/22 07/04/22 07/04/22 Range/Units 17:05 05:30 05:30 RBC 3.72 L (3.80-5.40) m/uL Hgb 11.1 L (11.4-16.0) gm/dL Hct 33.4 L (34.0-46.0) % Chloride 95 L 97 L (98-107) mmol/L BUN 43 H 50 H (7-17) mg/dL Creatinine 8.86 H* 9.58 H* (0.52-1.04) mg/dL Glucose 145 H (74-99) mg/dL
[2022-07-04 20:38] LABS: Glucose,Whole Blood 206 mg/dL (70-110)
[2022-07-04] MEDS: ATORVASTATIN 40 MG TAB PO SCH (21:11)
[2022-07-05] MEDS: HEPARIN SODIUM,PORCINE/PF 5,000 UNIT/0.5 ML SYRINGE SQ SCH ×3 (00:05→20:18)
[2022-07-05] MEDS ORDERED: MORPHINE SULFATE 4 MG/ML SYRINGE IVP STA (04:42)
[2022-07-05 06:20] LABS: Glucose,Whole Blood 117 mg/dL (70-110)
[2022-07-05] MEDS: INSULIN ASPART (NovoLOG) 100 UNIT/ML VIAL SQ SCH ×4 (06:36→20:24)
[2022-07-05] MEDS: DIVALPROEX ER 250 MG TAB.ER.24H PO SCH ×2 (08:28→20:18)
[2022-07-05] MEDS: PANTOPRAZOLE 40 MG TABLET PO SCH (08:28)
[2022-07-05] MEDS: METOPROLOL TARTRATE 25 MG TAB PO SCH ×2 (08:28→20:18)
[2022-07-05] MEDS: amLODIPine 10 MG TAB PO SCH (08:29)
[2022-07-05] MEDS: SEVELAMER 800 MG TAB PO SCH ×2 (08:29→18:57)
[2022-07-05] MEDS: levETIRAcetam 500 MG TAB PO SCH ×2 (08:29→20:18)
[2022-07-05] MEDS: hydrALAZINE HCL 50 MG TAB PO SCH ×2 (08:29→20:18)
[2022-07-05] MEDS: LACOSAMIDE 50 MG TABLET PO SCH ×2 (08:29→18:57)
[2022-07-05] MEDS: CLOPIDOGREL 75 MG TAB PO SCH (08:29)
[2022-07-05] MEDS: VASCEPA 1 GM PO SCH ×2 (10:07→20:18)
[2022-07-05 13:52] LABS: Glucose,Whole Blood 123 mg/dL (70-110)
--- NOTE | 2022-07-05 15:03 | P.PN ---
Subjective Progress Note Date: 07/05/22 Hospital course: Patient is a very pleasant 52-year-old female with a past medical history of end-stage renal disease on dialysis Mondays/Wednesdays/Fridays, known seizure disorder with recurrent breakthrough seizures, CVA with left-sided deficits and right-sided visual impairments, hypertension, hyperlipidemia and type II tia-kmnueks-[id number] diabetes mellitus. She presented to the emergency department from home via EMS on 07/03/22 with a chief complaint of breakthrough seizure. She underwent full evaluation in the emergency department. CBC unremarkable and CMP was consistent with ESRD with BUN of 43 and creatinine of 8.86. Patient's last dialysis session was Monday07/01/22. Valproic acid level was subtherapeutic at less then 10.0. It is unclear if patient has been taking medications as prescribed. Patient was admitted under services with consultation to nephrology and neurology. Patient reports that she lives at home with her and reports she ambulates with use of walker. Patient was taken for prolonged 2-1/2 hour EEG, results currently pending. Physical exam: Patient seen and fully evaluated at bedside upon return from prolonged EEG. She has had no further episodes of breakthrough seizures since arrival to our facility. Patient denies having any complaints at this time including headache, lightheadedness, dizziness, chest pain, palpitations, shortness of breath, nausea, vomiting, or experiencing any numbness/tingling/weakness in her extre mities. Patient was updated tentative plan is for likely discharge once EEG results are available and cleared by neurology team. Vital signs reviewed and stable. General: Nontoxic, no distress and appears stated age. Derm: Skin warm and dry, normal coloration for ethnicity. Head: Atraumatic, normocephalic and symmetric. Eyes: EOMs intact, no lid lag, and anicteric sclera Mouth: no lip lesions, mucus membranes moist Cardiovascular: regular rate and rhythm with normal S1S2, stage III systolic murmur, positive posterior tibial pulses bilaterally, and cap refill < 2 seconds. AV fistula left upper extremity with bruit and thrill intact. Lungs: Respirations even, regular, and unlabored on room air. Lungs CTA bilaterally, no rhonchi, no rales, no wheezing, and no accessory muscle usage. Abdominal: soft, nontender to palpation, no guarding, no appreciable organomegaly Ext: ROM intact. No gross muscle atrophy, no edema, no contractures Neuro: Speech clear, face symmetrical and CN II-XII grossly intact with no noted focal neuro deficits Psych: Alert and oriented to person, place, time, and situation. Appropriate and pleasant affect. Assessment and Plan of Care: Breakthrough seizure -Seizure precautions, aspiration precautions, and fall precautions in place. -Depakote level subtherapeutic at less than 10.0. Keppra level therapeutic at 50.1. -Neurology following, recommending prolonged 2-1/2 hour EEG. -Patient to continue antiepileptic medications including Depakote, Vimpat, and Keppra. Discussed with neurology and he is recommending patient take an additional dose (in addition to daily prescribed doses) of Keppra 500 mg and Vimpat 150 mg every Monday, Monday, and Monday after dialysis is complete. -Patient informed of [place] [employer] law stating no driving until seizure free for 6 months. Patient also instructed to avoid climbing ladders, operating dangerous or heavy machinery or unsupervised swimming until seizure free for 6 months. ESRD on dialysis -Nephrology following and has scheduled patient to undergo dialysis later today. -Continued close monitoring of renal function and electrolytes throughout hospitalization. History of CVA with left-sided deficits and right-sided visual impairments -Continue atorvastatin and Plavix. -Provide safe and supportive care and assistance as needed. -Fall precautions Hypertension Monitor vital signs and continue daily medication regimen with metoprolol, hydralazine, and amlodipine. Hyperlipidemia Continue daily medication regimen with atorvastatin 40 mg nightly. Heart healthy and carb consistent diet. Type 2 diabetes mellitus Glycemic protocol with NovoLog sliding scale. CODE STATUS: Full code DVT prophylaxis: Heparin Discussed with: Patient, neurology, and RN Anticipated discharge date: Within the next 24-[address]: Home A total of 32 minutes was spent on the care of this complex patient more than 50% of the time was spent in counseling and care coordination. Objective - Vital Signs Vital signs: Vital Signs Temp 98.2 F 07/05/22 08:20 Pulse 85 07/05/22 08:20 Resp 16 07/05/22 08:20 BP 148/83 07/05/22 08:20 Pulse Ox 98 07/05/22 08:20 FiO2 Intake & Output 07/04/22 07/05/22 07/05/22 18:59 06:59 18:59 Intake Total 654 90 Output Total 1800 Balance -1146 90 Intake: Oral 354 90 Hemodialysis 300 Output: Hemodialysis 1800 Other: Voiding Method Bedside Commode Bedside Commode # Voids 1 2 0 # Bowel Movements 1 - Labs CBC & Chem 7: 07/04/22 05:30 07/04/22 05:30 Labs: Abnormal Lab Results - Last 24 Hours (Table) 07/04/22 07/05/22 07/05/22 Range/Units 20:34 06:12 13:51 POC Glucose (mg/dL) 206 H 117 H 123 H (70-110) mg/dL
[2022-07-05 17:05] LABS: Glucose,Whole Blood 143 mg/dL (70-110)
[2022-07-05] MEDS ORDERED: PROCHLORPERAZINE INJ 10 MG/2 ML VIAL IVP PRN (17:31)
[2022-07-05] MEDS ORDERED: PROCHLORPERAZINE INJ 10 MG/2 ML VIAL IVP ONE (18:04)
[2022-07-05 20:16] LABS: Glucose,Whole Blood 166 mg/dL (70-110)
[2022-07-05] MEDS: ATORVASTATIN 40 MG TAB PO SCH (20:18)
[2022-07-06] MEDS: HEPARIN SODIUM,PORCINE/PF 5,000 UNIT/0.5 ML SYRINGE SQ SCH ×3 (00:37→17:46)
[2022-07-06 05:44] LABS: Glucose,Whole Blood 159 mg/dL (70-110)
[2022-07-06] MEDS: INSULIN ASPART (NovoLOG) 100 UNIT/ML VIAL SQ SCH ×2 (08:10→12:37)
[2022-07-06] MEDS: LACOSAMIDE 50 MG TABLET PO SCH (08:11)
[2022-07-06] MEDS: SEVELAMER 800 MG TAB PO SCH ×2 (08:11→13:55)
[2022-07-06 08:12] LABS: Glucose,Whole Blood 124 mg/dL (70-110)
[2022-07-06] MEDS: CLOPIDOGREL 75 MG TAB PO SCH (08:12)
[2022-07-06] MEDS: METOPROLOL TARTRATE 25 MG TAB PO SCH (08:12)
[2022-07-06] MEDS: levETIRAcetam 500 MG TAB PO SCH (08:12)
[2022-07-06] MEDS: PANTOPRAZOLE 40 MG TABLET PO SCH (08:12)
[2022-07-06] MEDS: amLODIPine 10 MG TAB PO SCH (08:12)
[2022-07-06] MEDS: hydrALAZINE HCL 50 MG TAB PO SCH (08:12)
[2022-07-06 09:01] VITALS: RESP 16
--- NOTE | 2022-07-06 10:23 | P.PN ---
Subjective Progress Note Date: 07/05/22 Patient was seen for a follow-up. Patient is laying comfortably in the bed. No further seizures reported. Objective - Vital Signs Vital signs: Vital Signs Temp 97.9 F 07/05/22 15:00 Pulse 81 07/05/22 15:00 Resp 18 07/05/22 15:00 BP 126/66 07/05/22 15:00 Pulse Ox 100 07/05/22 15:00 FiO2 Intake & Output 07/05/22 07/05/22 07/06/22 06:59 18:59 06:59 Intake Total 300 Balance 300 Intake: Oral 300 Other: Voiding Method Bedside Commode Bedside Commode # Voids 2 0 # Bowel Movements 1 - Exam Examination unchanged. - Labs CBC & Chem 7: 07/04/22 05:30 07/04/22 05:30 Labs: Abnormal Lab Results - Last 24 Hours (Table) 07/04/22 07/05/22 07/05/22 Range/Units 20:34 06:12 13:51 POC Glucose (mg/dL) 206 H 117 H 123 H (70-110) mg/dL 07/05/22 Range/Units 17:03 POC Glucose (mg/dL) 143 H (70-110) mg/dL Assessment and Plan Assessment: * Long-standing history of seizure disorder, came with breakthrough seizure. Uncertain if patient is compliant with the medication, although her blood leve l from 05/18/2022 appears be therapeutic of Vimpat and Keppra. * VNS placement 2 or 3 years ago * History of CVA with left hemiparesis * ESRD, on hemodialysis * Diabetes * Hypertension Plan: * Keppra level is therapeutic 50.1(3-60). * Continue Keppra 500 mg twice a day an extra 500 mg 3 times a week postdialysis * Continue Vimpat 150 mg twice a day and extra Vimpat 150 mg twice a day 3 times a week postdialysis. * Patient also on Depakote 250 mg twice a day. * Patient had undergone prolonged EEG for better evaluation of underlying epileptiform activity. Unfortunately report not available today, as Dr Lazo has called in sick today. I briefly looked at the EEG, and appears quite abnormal. We will await official read from Dr. Lazo. * Dr. Luevano has previously recommended patient to be started on Onfi, but has not been started on it yet. * Discussed with primary team.
[2022-07-06] MEDS: VASCEPA 1 GM PO SCH (10:39)
[2022-07-06] MEDS: DIVALPROEX ER 250 MG TAB.ER.24H PO SCH (10:39)
[2022-07-06 10:45] LABS: HCT 33.4 % (37.2-46.3); HGB 10.4 g/dL (12.0-15.0); MCH 28.3 pg (27.0-32.0); MCHC 31.1 g/dL (32.0-37.0); Mean Platelet Volume 10.9 fL (9.5-12.2); NRBC Per 100 WBC 0 /100 WBCS (0.0-0.0); Platelet Count 256 X 10*3/uL (140-440); RBC 3.67 X 10*6/uL (4.10-5.20); RDW 14.7 % (11.5-14.5); WBC 5.72 X 10*3/uL (4.50-10.00)
[2022-07-06 10:56] LABS: Magnesium 2.3 mg/dL (1.5-2.4)
[2022-07-06 10:59] LABS: African American GFR (CKD) 5.4 (60.0-200.0); Albumin 3.9 g/dL (3.8-4.9); Albumin/Globulin Ratio 1.63 (1.60-3.17); Anion Gap 15.8 mmol/L (10.00-18.00); BUN/Creat Ratio 3.25 Ratio (12.00-20.00); Blood Urea Nitrogen 28.3 mg/dL (9.0-27.0); Calcium 9.5 mg/dL (8.7-10.3); Carbon Dioxide 26.2 mmol/L (20.0-27.5); Globulin 2.4 g/dL (1.6-3.3); Non-African American GFR(CKD) 4.7 (60.0-200.0); Potassium 4.5 mmol/L (3.5-5.5); Total Bilirubin 0.3 mg/dL (0.30-1.20); Total Protein 6.3 g/dL (6.2-8.2)
[2022-07-06 12:34] LABS: Glucose,Whole Blood 142 mg/dL (70-110)
[2022-07-06] MEDS ORDERED: ZONISAMIDE 100 MG CAP PO SCH (13:45)
--- NOTE | 2022-07-06 13:53 | P.PN ---
Subjective Progress Note Date: 07/06/22 Patient was seen for a follow-up. Patient is laying comfortably in the bed. No further seizures reported. Patient is getting hemodialysis. Objective - Vital Signs Vital signs: Vital Signs Temp 98.3 F 07/06/22 08:00 Pulse 85 07/06/22 08:00 Resp 16 07/06/22 08:00 BP 169/76 07/06/22 08:00 Pulse Ox 99 07/06/22 08:00 FiO2 Intake & Output 07/05/22 07/06/22 07/06/22 18:59 06:59 18:59 Intake Total 300 200 118 Balance 300 200 118 Intake: Oral 300 200 118 Other: Voiding Method Bedside Commode Bedside Commode Bedside Commode # Voids 0 1 - Exam Examination unchanged. - Labs CBC & Chem 7: 07/06/22 07:04 07/06/22 07:04 Labs: Abnormal Lab Results - Last 24 Hours (Table) 07/05/22 07/05/22 07/05/22 Range/Units 13:51 17:03 20:04 RBC (4.10-5.20) X 10*6/uL Hgb (12.0-15.0) g/dL Hct (37.2-46.3) % MCHC (32.0-37.0) g/dL RDW (11.5-14.5) % BUN (9.0-27.0) mg/dL Creatinine (0.6-1.5) mg/dL Est GFR (CKD-EPI)AfAm (60.0-200.0) Est GFR (CKD-EPI)NonAf (60.0-200.0) BUN/Creatinine Ratio (12.00-20.00) Ratio Glucose (70-110) mg/dL POC Glucose (mg/dL) 123 H 143 H 166 H (70-110) mg/dL 07/06/22 07/06/22 07/06/22 Range/Units 05:43 07:04 07:04 RBC 3.67 L (4.10-5.20) X 10*6/uL Hgb 10.4 L (12.0-15.0) g/dL Hct 33.4 L (37.2-46.3) % MCHC 31.1 L (32.0-37.0) g/dL RDW 14.7 H (11.5-14.5) % BUN 28.3 H (9.0-27.0) mg/dL Creatinine 8.7 H* (0.6-1.5) mg/dL Est GFR (CKD-EPI)AfAm 5.4 L (60.0-200.0) Est GFR (CKD-EPI)NonAf 4.7 L (60.0-200.0) BUN/Creatinine Ratio 3.25 L (12.00-20.00) Ratio Glucose 134 H (70-110) mg/dL POC Glucose (mg/dL) 159 H (70-110) mg/dL 07/06/22 07/06/22 Range/Units 08:10 12:33 RBC (4.10-5.20) X 10*6/uL Hgb (12.0-15.0) g/dL Hct (37.2-46.3) % MCHC (32.0-37.0) g/dL RDW (11.5-14.5) % BUN (9.0-27.0) mg/dL Creatinine (0.6-1.5) mg/dL Est GFR (CKD-EPI)AfAm (60.0-200.0) Est GFR (CKD-EPI)NonAf (60.0-200.0) BUN/Creatinine Ratio (12.00-20.00) Ratio Glucose (70-110) mg/dL POC Glucose (mg/dL) 124 H 142 H (70-110) mg/dL Assessment and Plan Assessment: * Long-standing history of seizure disorder, came with breakthrough seizure. Patient is compliant with medications, as her levels are therapeutic. * VNS placement 2 or 3 years ago * History of CVA with left hemiparesis * ESRD, on hemodialysis * Diabetes * Hypertension Plan: * Prolonged, 2.5 hour EEG was performed. Official report is pending. Preliminary report from Dr. Lazo, revealed infrequent runs of generalized sharp and slow wave, or spike and slow wave at 2-3 Hz, lasting for 1-1/2 seconds. This is suggestive of primary generalized epilepsy. Vimpat is not indicated for primary generalized epilepsy. We will gradually wean off Vimpat. We will stop extra Vimpat postdialysis, and decreased maintenance dose to 100 mg twice a day. After 1 week, would decrease Vimpat to 50 mg twice a day for one week and then 50 mg once a day for following one week and then stop. * I discussed with patient about optimizing dose of Depakote versus adding Zonegran. She does not want to increase dose of Depakote. We will therefore start Zonegran 100 mg daily. Recommend patient follow up with neurologist in 1-2 weeks to further optimize Zonegran. * Keppra level is therapeutic 50.1(3-60). * Continue Keppra 500 mg twice a day an extra 500 mg 3 times a week postdialysis * Patient also on Depakote 250 mg twice a day. * Neurologically clear for discharge. Discussed with primary team.
[2022-07-06 14:12] VITALS: BP 118/62; PULSE 77; TEMP 97
[2022-07-06] MEDS: levETIRAcetam 500 MG TAB PO PRN (14:43)
--- NOTE | 2022-07-06 16:32 | P.DS ---
Providers Date of admission: 07/05/22 11:30 Expected date of discharge: 07/06/22 Attending physician: Toya Gonzalez MD Consults: 07/03/22 18:45 Consult Physician Urgent Consulting Provider: Martínez Mcgovern Consult Reason/Comments: Chronic renal failure, dialysis patient Do you want consulting provider notified?: Yes Consult Physician Urgent Consulting Provider: Kate Daniel Consult Reason/Comments: Recurrent seizures Do you want consulting provider notified?: Yes Primary care physician: Stated None Hospital Course: Discharge Diagnosis: Breakthrough seizure. Patient was taken for prolonged 2-1/2 hour EEG, official report remains pending. Neurologist called and spoke with Dr. Lazo whom reported findings suggestive of primary generalized epilepsy. Neurology reported Vimpat is not indicated for primary generalized epilepsy and recommending patient wean off of medication and start on Zonegran in addition to her daily medication regimen with Keppra and Depakote. Neurologist clearing patient from neurological standpoint recommending she follow up outpatient with her neurologist in 1 week. Patient informed of [place] state law stating no driving until seizure free for 6 months. Patient also instructed to avoid climbing ladders, operating dangerous or heavy machinery or unsupervised swimming until seizure free for 6 months. ESRD on dialysis. Continue to follow up outpatient with otr van cdl truck driver as previously scheduled and for scheduled dialysis sessions on Mondays/Wednesdays/Fridays. History of CVA with left-sided deficits and right-sided visual impairments. Continue atorvastatin and Plavix. Hypertension. Monitor vital signs and continue daily medication regimen with metoprolol, hydralazine, and amlodipine. Hyperlipidemia. Continue daily medication regimen with atorvastatin 40 mg nightly. Type 2 diabetes mellitus. Monitor blood glucose levels and continue Trulicity. Hospital Course: Patient is a very pleasant 52-year-old female with a past medical history of end-stage renal disease on dialysis Mondays/Wednesdays/Fridays, known seizure disorder with recurrent breakthrough seizures, CVA with left-sided deficits and right-sided visual impairments, hypertension, hyperlipidemia and type II yry-[id number]-mvypbesxc diabetes mellitus. She presented to the emergency department from home via EMS on 07/03/22 with a chief complaint of breakthrough seizure. She underwent full evaluation in the emergency department. CBC unremarkable and CMP was consistent with ESRD with BUN of 43 and creatinine of 8.86. Patient's last dialysis session was Monday07/01/22. Valproic acid level was subtherapeutic at less then 10.0. It is unclear if patient has been taking medications as prescribed. Patient was admitted under services with consultation to nephrology and neurology. Patient reports that she lives at home with her and reports she ambulates with use of walker. Patient was taken for prolonged 2-1/2 hour EEG, official report remains pending. Neurologist called and spoke with Dr. Lazo whom reported findings suggestive of primary generalized epilepsy. Neurology reported Vimpat is not indicated for primary generalized epilepsy and recommending patient wean off of medication and start on Zonegran and clearing patient from neurological standpoint recommending she follow up outpatient with her neurologist in 1 week. Patient was also evaluated by otr van cdl truck driver and received dialysis on Monday and again today and to follow up outpatient with her otr van cdl truck driver and for scheduled dialysis sessions Mondays/Wednesdays/Fridays. Patient medically stable for discharge at this time and as instructed patient to follow up outpatient with PCP, neurologist, and otr van cdl truck driver for continued long-term management. Physical exam: Vital signs reviewed and stable. General: Nontoxic, no distress and appears stated age. Derm: Skin warm and dry, normal coloration for ethnicity. Head: Atraumatic, normocephalic and symmetric. Eyes: EOMs intact, no lid lag, and anicteric sclera Mouth: no lip lesions, mucus membranes moist Cardiovascular: regular rate and rhythm with normal S1S2, stage III systolic murmur, positive posterior tibial pulses bilaterally, and cap refill < 2 seconds. AV fistula left upper extremity with bruit and thrill intact. Lungs: Respirations even, regular, and unlabored on room air. Lungs CTA bilaterally, no rhonchi, no rales, no wheezing, and no accessory muscle usage. Abdominal: soft, nontender to palpation, no guarding, no appreciable organomegaly Ext: ROM intact. No gross muscle atrophy, no edema, no contractures Neuro: Speech clear, face symmetrical and CN II-XII grossly intact with no noted focal neuro deficits Psych: Alert and oriented to person, place, time, and situation. Appropriate and pleasant affect. A total of 38 minutes of time were spent preparing this complex discharge summary. Pt was discharged on 07/06/22 at 4:31 PM. Attending Note Donald Cinthya, OTR V[employer] TRUCK DRIVER rendered care for this patient independently, reviewed the findings and plan as documented in the note above. I did not physically speak with our examined the patient on this date. Patient Condition at Discharge: Stable Plan - Discharge Summary Discharge Rx Participant: No New Discharge Prescriptions: New Lacosamide [Vimpat] See Taper PO DIRECTED 21 Days #49 tab Zonisamide [Zonegran] 100 mg PO DAILY 30 Days #30 cap Continue amLODIPine [Norvasc] 10 mg PO DAILY #30 tab Clopidogrel [Plavix] 75 mg PO DAILY #30 tab Atorvastatin [Lipitor] 40 mg PO HS Vascepa 1gm 1 gm PO BID Sevelamer [Renvela] 800 mg PO BID-W/MEALS Calcium Acetate 667 mg PO TID-W/MEALS Pantoprazole [Protonix] 40 mg PO DAILY Potassium Chloride ER [K-Dur 20] 20 meq PO BID Sevelamer [Renvela] 1,600 mg PO W/SUPPER Dulaglutide [Trulicity] 3 mg SQ Q7D levETIRAcetam [Keppra] 500 mg PO BID@0700,2100 Metoprolol Tartrate [Lopressor] 25 mg PO BID Divalproex ER [Depakote ER] 250 mg PO BID 30 Days #60 tab levETIRAcetam [Keppra] 500 mg PO MoWeFr@1600 30 Days #15 tab hydrALAZINE HCL [Apresoline] 50 mg PO BID Discontinued Lacosamide [Vimpat] 150 mg PO BID@0700,1900 #0 Lacosamide [Vimpat] 150 mg PO MOWEFR@07,,21 Discharge Medication List Clopidogrel [Plavix] 75 mg PO DAILY #30 tab 09/05/20 [Rx] amLODIPine [Norvasc] 10 mg PO DAILY #30 tab 09/05/20 [Rx] Atorvastatin [Lipitor] 40 mg PO HS 03/23/21 [History] Dulaglutide [Trulicity] 3 mg SQ Q7D 03/23/21 [History] Sevelamer [Renvela] 800 mg PO BID-W/MEALS 03/23/21 [History] Vascepa 1gm 1 gm PO BID 03/23/21 [History] Calcium Acetate 667 mg PO TID-W/MEALS 02/25/22 [History] Metoprolol Tartrate [Lopressor] 25 mg PO BID 02/25/22 [History] Pantoprazole [Protonix] 40 mg PO DAILY 02/25/22 [History] Potassium Chloride ER [K-Dur 20] 20 meq PO BID 02/25/22 [History] levETIRAcetam [Keppra] 500 mg PO BID@0700,2100 02/25/22 [History] Divalproex ER [Depakote ER] 250 mg PO BID 30 Days #60 tab 02/28/22 [Rx] levETIRAcetam [Keppra] 500 mg PO MoWeFr@1600 30 Days #15 tab 02/28/22 [Rx] Sevelamer [Renvela] 1,600 mg PO W/SUPPER 04/29/22 [History] hydrALAZINE HCL [Apresoline] 50 mg PO BID 04/29/22 [History] Lacosamide [Vimpat] See Taper PO DIRECTED 21 Days #49 tab 07/06/22 [Rx] Zonisamide [Zonegran] 100 mg PO DAILY 30 Days #30 cap 07/06/22 [Rx] Follow up Appointment(s)/Referral(s): Geoffrey Somers MD [STAFF PHYSICIAN] - 1-2 days Matt Ohara MD [Medical Doctor] - 1 Week (patient to call and make an appointment ) Patient Instructions/Handouts: Chronic Kidney Disease (ED), Recurrent Seizures in Adults (ED) Activity/Diet/Wound Care/Special Instructions: Activity: As tolerated. Take breaks as needed. Diet: Heart healthy and carb consistent diet. Avoid salts, or foods with hidden salts such as canned or boxed foods and frozen dinners. Extra salt makes your heart work harder and traps the fluid in your body for longer. Special Instructions: Take all of your medications as directed and remember to keep all of your doctor's appointments and follow-up as needed. Return to the ER immediately should you develop any significant pain, recurrent or prolonged seizures, a fever, shortness of breath, numbness or weakness, or new or worsening symptoms. Follow up closely with your primary care provider, as well as your neurologist. Be sure to follow up for your scheduled dialysis sessions as well. [place] state law stating no driving until seizure free for 6 months. Patient also instructed to avoid climbing ladders, operating dangerous or heavy machinery or unsupervised swimming until seizure free for 6 months. Thank you for allowing us to participate in your care, it was truly a pleasure having you for our patient!!! Discharge Disposition: HOME SELF-CARE
[2022-07-06] MEDS ORDERED: LACOSAMIDE 50 MG TABLET PO SCH (19:00)
== END 2022-07-06 18:15 | disposition home or self-care (01) | DRG 100 ==
LOC: EC 15:18 → 6NMEDSUR 18:46 → OBSVTOIN 07-05 11:30
PROVIDERS: ADMIT Internal Medicine; ATTEND Internal Medicine
PROC: 5A1D70Z Performance of Urinary Filtration, Intermittent, Less than 6 Hours Per Day (ICD-10-PCS; principal; 2022-07-04)
PROC: 4A10X4Z Monitoring of Central Nervous Electrical Activity, External Approach (ICD-10-PCS; 2022-07-04)
DX: G40.919 Epilepsy, unspecified, intractable, without status epilepticus (principal); N18.6 End stage renal disease; I69.354 Hemiplegia and hemiparesis following cerebral infarction affecting left non-dominant side; I12.0 Hypertensive chronic kidney disease with stage 5 chronic kidney disease or end stage renal disease; Z99.2 Dependence on renal dialysis; E11.22 Type 2 diabetes mellitus with diabetic chronic kidney disease; M89.8X9 Other specified disorders of bone, unspecified site; E78.5 Hyperlipidemia, unspecified; D64.9 Anemia, unspecified; S01.21XA Laceration without foreign body of nose, initial encounter; Z79.02 Long term (current) use of antithrombotics/antiplatelets; W18.30XA Fall on same level, unspecified, initial encounter; Z79.899 Other long term (current) drug therapy; Z87.891 Personal history of nicotine dependence; Z91.14 Patient's other noncompliance with medication regimen; Z91.199 Patient's noncompliance with other medical treatment and regimen due to unspecified reason; Z88.0 Allergy status to penicillin
CPT/HCPCS: 36415; 70450; 80053; 80164; 80177; 83735; 85025; 85027; 90935; 95713; 96372; 99291

== ENCOUNTER 2022-07-15 11:20 | Inpatient (IN) | payer MEDICARE, OTHER ==
[2022-07-15] MEDS ORDERED: ONDANSETRON 4 MG/2 ML VIAL IVP STA (11:39)
--- NOTE | 2022-07-15 11:47 | ED ---
Altered Mental Status HPI - General Chief Complaint: Altered Mental Status Stated Complaint: vomiting Time Seen by Provider: 07/15/22 11:21 Source: family, EMS, RN notes reviewed Mode of arrival: EMS Limitations: altered mental status - History of Present Illness Initial Comments: This is a 52-year-old female who presents to the emergency department for altered mental status, nausea, and vomiting. Patient is well-known to this emergency department for a severe seizure disorder. Per EMS, her put her on a bus and she was dropped off at dialysis. Per the dialysis clinic, as soon as she got there, she seemed to go unresponsive. They did not note any seizure-like activity. She was just not speaking or answering any questions. Because of this, she was unable to get her dialysis treatment. Currently has hemodialysis Monday, Monday, and Monday. When EMS arrived, she was producing a few words, however she was not holding any sort of conversation and she was essentially only alert and oriented 1. She is alert and oriented 2-3 at baseline. She was admitted here from 07/03-07/06 for worsening seizure activity. She was subsequently started on Zonegran which was added to her regimen of Keppra and Depakote. On arrival, she is actively vomiting, but otherwise has her eyes closed, is not answering any questions or responding to any commands. When we were finally able to reach the patient's , he states that over the last week when she has been taking the Depakote, she seems to vomit and become incoherent. It is not clear if the dose was altered within the last week, as she was admitted to [facility] earlier this week for seizure activity. MD Complaint: altered mental status, decreased responsiveness Associated Symptoms: nausea/vomiting - Related Data Home Medications Medication Instructions Recorded Confirmed Atorvastatin [Lipitor] 40 mg PO HS 03/23/21 07/15/22 Dulaglutide [Trulicity] 3 mg SQ Q7D 03/23/21 07/15/22 Sevelamer [Renvela] 800 mg PO BID-W/MEALS 03/23/21 07/15/22 Vascepa 1gm 1 gm PO BID 03/23/21 07/15/22 Calcium Acetate 667 mg PO TID-W/MEALS 02/25/22 07/15/22 Metoprolol Tartrate [Lopressor] 25 mg PO BID 02/25/22 07/15/22 Pantoprazole [Protonix] 40 mg PO DAILY 02/25/22 07/15/22 Potassium Chloride ER [K-Dur 20] 20 meq PO BID 02/25/22 07/15/22 levETIRAcetam [Keppra] 500 mg PO BID@0700,2100 02/25/22 07/15/22 Sevelamer [Renvela] 1,600 mg PO W/SUPPER 04/29/22 07/15/22 Divalproex [Depakote] 500 mg PO Q8H 07/15/22 07/15/22 Previous Rx's Medication Instructions Recorded Clopidogrel [Plavix] 75 mg PO DAILY #30 tab 09/05/20 Divalproex ER [Depakote ER] 250 mg PO BID 30 Days #60 tab 02/28/22 levETIRAcetam [Keppra] 500 mg PO MoWeFr@1600 30 Days #15 02/28/22 tab Lacosamide [Vimpat] See Taper PO DIRECTED 21 Days 07/06/22 #49 tab Zonisamide [Zonegran] 100 mg PO DAILY 30 Days #30 cap 07/06/22 Allergies Allergy/AdvReac Type Severity Reaction Status Date / Time Penicillins Allergy Itching Verified 07/15/22 13:57 Review of Systems ROS Statement: Those systems with pertinent positive or pertinent negative responses have been documented in the HPI. ROS Other: All systems not noted in ROS Statement are negative. Limitations: ROS unobtainable due to patients medical condition Past Medical History Past Medical History: Chest Pain / Angina, CVA/TIA, Diabetes Mellitus, GERD/Reflux, Hyperlipidemia, Hypertension, Memory Impairment, Osteoarthritis (OA), Renal Disease, Seizure Disorder, Thyroid Disorder Additional Past Medical History / Comment(s): Last seizure approximately one month ago. Spouse states she used to have seizures 4X per week until she had vagal nerve stimulator placed, now has seizures approximately once a week to once a month. Dialysis MOWEFR. Neuropathy, left drop foot, only able to walk short distances, otherwise uses wheelchair. 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 Never diagnosed with Sleep Apnea but spouse states she does stop breathing through the night and he has to shake her to start breathing again. Varicose veins. History of Any Multi-Drug Resistant Organisms: None Reported Past Surgical History: Section, Tonsillectomy, Uterine Ablation Additional Past Surgical History / Comment(s): Left arm fistula, loop recorder, vagus nerve stimulator. Past Anesthesia/Blood Transfusion Reactions: Motion Sickness Additional Past Anesthesia/Blood Transfusion Reaction / Comment(s): Family hx unknown, pt adopted. Past Psychological History: Bipolar Smoking Status: Former smoker Past Alcohol Use History: None Reported Past Drug Use History: None Reported - Past Family History Father Family Medical History: Unable to Obtain Additional Family Medical History / Comment(s): Pt adopted. General Exam Limitations: altered mental status Head exam: Present: atraumatic, normocephalic, normal inspection Respiratory exam: Present: normal lung sounds bilaterally. Absent: respiratory distress, wheezes, rales, rhonchi, stridor Cardiovascular Exam: Present: regular rate, normal rhythm, normal heart sounds. Absent: systolic murmur, diastolic murmur, rubs, gallop, clicks Expanded Eye Response: (2) open to pain Motor Response: (4) withdraws to pain Verbal Response: incomprehensible sounds [place] Total: 6 Skin exam: Present: warm, dry, intact, normal color. Absent: rash Course Vital Signs 07/15/22 07/15/22 07/15/22 11:22 13:03 13:40 Temperature 95.4 F L Pulse Rate 85 87 89 Respiratory 16 16 16 Rate Blood Pressure 167/86 168/57 160/83 O2 Sat by Pulse 96 100 97 Oximetry 07/15/22 07/15/22 15:23 17:14 Temperature 95.8 F L 98.6 F Pulse Rate 86 93 Respiratory 18 16 Rate Blood Pressure 103/59 115/60 O2 Sat by Pulse 94 L 96 Oximetry Medical Decision Making - Medical Decision Making This is a 52-year-old female who presents to the emergency department for altered mental status. Was pt. sent in by a medical professional or institution? @ -Dialysis Did you speak to anyone other than the patient for history? @ -EMS and her Did you review nursing and triage notes? @ -Agree, accurate with regards to the patient's symptoms. Were old charts reviewed? @ -Admission records from 07/03-07/06 here. Differential Diagnosis? @ -Differential Altered Mental Status: Hypoglycemia, DKA, hypercapnia, ETOH, overdose, CO poisoning, trauma, myxedema coma, HTN encephalopathy, infection, encephalitis, psychosis, intercranial hemorrhage, hepatic encephalopathy, meningitis, CVA, this is not meant to be an all-inclusive list seizure] EKG interpreted by me (3pts min.)? @ -Sinus rhythm. Ventricular rate 85 bpm, UT interval 192 ms, QRS duration 116 ms, QTC 468 ms. X-rays interpreted by me (1pt min.)? @ -Interpretation of the chest x-ray identifies no localized consolidations or infiltrates. CT interpreted by me (1pt min.)? @ -Computed tomography scan of the brain was obtained. My interpretation reveals a questionable hypodensity in the left brain stem. The radiologist makes note of this as well and cannot rule out a subacute lacunar infarct. What testing was considered but not performed? (CT, X-rays, U/S, labs)? Why? @ -None What meds were considered but not given? Why? @ -We had attempted to give her her home medication after admission, however the patient is NPO for the meantime due to her altered state. Did you discuss the management of the patient with other professionals? @ -I spoke with Dr. Acosta with [facility] regarding admissison. Plan to consult neurology and nephrology. I also spoke with Dr. Duran, nephrology, who advised that we can wait until tomorrow morning for her to have dialysis. Did you reconcile home meds? @ -Yes Was smoking cessation discussed for >3mins.? @ -No Was critical care preformed (if so, how long)? @ -Yes, approximately 60 minutes. Were there social determinants of health that impacted care today? How? (Homelessness, low income, unemployed, alcoholism, drug addiction, tr ansportation, low edu. Level, literacy, decrease access to med. care, alf, rehab)? @ -None Was there de-escalation of care discussed even if they declined? (Discuss DNR or withdrawal of care, Hospice)? @ -No What co-morbidities impacted this encounter? (DM, HTN, Smoking, COPD, CAD, Cancer, CVA, Hep., AIDS, mental health diagnosis, sleep apnea, morbid obesity)? @ -DM, hyperlipidemia, hypertension, renal failure, seizure disorder, and hypothyroidism. Was patient admitted / discharged? @ -Admitted. On arrival, patient had a GCS of 6, however her vital signs were stable. Lab work consistent with chronic renal failure. Lactic acid is elevated, likely related to the chronic renal failure. Additionally, she has an elevated BNP. There are no BNP values for comparison. Urinalysis appears to be consistent with a UTI. Patient given a dose of ceftriaxone with blood cultures obtained prior. Rectal temp obtained, revealing a temperature of 95F. Patient was covered in warm blankets and a bear hugger was placed on her. The cause of her low temperature is not clear at this time. Computed tomography scan of the brain was obtained, the radiologist made note of a possible subacute lacunar infarct within the left basal ganglia. While in the examination room, the patient continued to vomit after doses of Reglan and Zofran. The nurses were at bedside performing suction due to concerns for aspiration. Her valproic acid level is elevated at 127 on laboratory studies. The laboratory notes state that greater than 100 may be considered toxic, however up to 120 is also within the therapeutic range. Regardless, this value is higher than it should be, and because her notes vomiting and incoherence after Depakote administration, this may be contributing to her mental state. Dialysis is planned for tomorrow. Were any procedures done? @ -No Diagnosis/symptom? @ -Altered mental status Acute, or Chronic, or Acute on Chronic? @ -Acute Uncomplicated (without systemic symptoms) or Complicated (systemic symptoms)? @ -Complicated Side effects of treatment? @ -Side effects will be based on how the admission team plans to treat the altered mental status and what the cause of it is found to be. Exacerbation, Progression, or Severe Exacerbation] @ -Not applicable Poses a threat to life or bodily function? @ -Yes, she is unable to function at the moment due to her current state. Whether or not this is life threatening depends on what is causing the altered mental status. Diagnosis/symptom? @ -Congestive heart failure Acute, or Chronic, or Acute on Chronic? @ -Acute, no noted prior diagnosis Uncomplicated (without systemic symptoms) or Complicated (systemic symptoms)? @ -Complicated Side effects of treatment? @ -Side effects based on treatment determined by the admission team. Exacerbation, Progression, or Severe Exacerbation] @ -Not applicable given that this is a new diagnosis Poses a threat to life or bodily function? @ -Yes, the heart does not pump adequately. Diagnosis/symptom? @ -UTI Acute, or Chronic, or Acute on Chronic? @ -Acute Uncomplicated (without systemic symptoms) or Complicated (systemic symptoms)? @ -Unclear if this is causing systemic symptoms Side effects of treatment? @ -Adverse reaction to antibiotics Exacerbation, Progression, or Severe Exacerbation] @ -Not applicable Poses a threat to life or bodily function? @ -A progressive infection leading to a septic state is a life-threatening problem. This case was discussed in detail with the attending ED physician. Presentation, findings, and treatment plan discussed in detail as well. - Lab Data Result diagrams: 07/15/22 12:07/15/22 12: Lab Results 07/15/22 07/15/22 07/15/22 Range/Units 12: 12: 12: WBC 6.7 (3.8-10.6) k/uL RBC 4.00 (3.80-5.40) m/uL Hgb 11.4 (11.4-16.0) gm/dL Hct 35.1 (34.0-46.0) % MCV 87.7 (80.0-100.0) fL MCH 28.4 (25.0-35.0) pg MCHC 32.4 (31.0-37.0) g/dL RDW 14.0 (11.5-15.5) % Plt Count 218 (150-450) k/uL MPV 9.3 Neutrophils % 71 % Lymphocytes % 22 % Monocytes % 3 % Eosinophils % 1 % Basophils % 1 % Neutrophils # 4.8 (1.3-7.7) k/uL Lymphocytes # 1.5 (1.0-4.8) k/uL Monocytes # 0.2 (0-1.0) k/uL Eosinophils # 0.1 (0-0.7) k/uL Basophils # 0.1 (0-0.2) k/uL Hypochromasia Slight PT 10.3 (9.0-12.0) sec INR 1.0 (<1.2) APTT 21.5 L (22.0-30.0) sec Sodium (137-145) mmol/L Potassium (3.5-5.1) mmol/L Chloride (98-107) mmol/L Carbon Dioxide (22-30) mmol/L Anion Gap mmol/L BUN (7-17) mg/dL Creatinine (0.52-1.04) mg/dL Est GFR (CKD-EPI)AfAm (>60 ml/min/1.73 sqM) Est GFR (CKD-EPI)NonAf (>60 ml/min/1.73 sqM) Glucose (74-99) mg/dL Lactic Ac Sepsis Rflx Plasma Lactic Acid Shen (0.7-2.0) mmol/L Calcium (8.4-10.2) mg/dL Total Bilirubin (0.2-1.3) mg/dL AST (14-36) U/L ALT (4-34) U/L Alkaline Phosphatase (38-126) U/L Troponin I (0.000-0.034) ng/mL NT-Pro-B Natriuret Pep pg/mL Total Protein (6.3-8.2) g/dL Albumin (3.5-5.0) g/dL Urine Color Yellow Urine Appearance Cloudy H (Clear) Urine pH 7.5 (5.0-8.0) Ur Specific [place] 1.012 (1.001-1.035) Urine Protein 3+ H (Negative) Urine Glucose (UA) 2+ H (Negative) Urine Ketones Negative (Negative) Urine Blood Trace H (Negative) Urine Nitrite Negative (Negative) Urine Bilirubin Negative (Negative) Urine Urobilinogen <2.0 (<2.0) mg/dL Ur Leukocyte Esterase Large H (Negative) Urine RBC 9 H (0-5) /hpf Urine WBC 84 H (0-5) /hpf Ur Squamous Epith Cells 2 (0-4) /hpf Urine Bacteria Occasional H (None) /hpf Urine Mucus Rare H (None) /hpf Valproic Acid ug/mL 07/15/22 07/15/22 07/15/22 Range/Units 12:26 12:26 12:26 WBC (3.8-10.6) k/uL RBC (3.80-5.40) m/uL Hgb (11.4-16.0) gm/dL Hct (34.0-46.0) % MCV (80.0-100.0) fL MCH (25.0-35.0) pg MCHC (31.0-37.0) g/dL RDW (11.5-15.5) % Plt Count (150-450) k/uL MPV Neutrophils % % Lymphocytes % % Monocytes % % Eosinophils % % Basophils % % Neutrophils # (1.3-7.7) k/uL Lymphocytes # (1.0-4.8) k/uL Monocytes # (0-1.0) k/uL Eosinophils # (0-0.7) k/uL Basophils # (0-0.2) k/uL Hypochromasia PT (9.0-12.0) sec INR (<1.2) APTT (22.0-30.0) sec Sodium 142 (137-145) mmol/L Potassium 4.0 (3.5-5.1) mmol/L Chloride 100 (98-107) mmol/L Carbon Dioxide 24 (22-30) mmol/L Anion Gap 18 mmol/L BUN 32 H (7-17) mg/dL Creatinine 9.47 H* (0.52-1.04) mg/dL Est GFR (CKD-EPI)AfAm 5 (>60 ml/min/1.73 sqM) Est GFR (CKD-EPI)NonAf 4 (>60 ml/min/1.73 sqM) Glucose 288 H (74-99) mg/dL Lactic Ac Sepsis Rflx Plasma Lactic Acid Shen 3.0 H* (0.7-2.0) mmol/L Calcium 9.8 (8.4-10.2) mg/dL Total Bilirubin 0.6 (0.2-1.3) mg/dL AST 20 (14-36) U/L ALT 14 (4-34) U/L Alkaline Phosphatase 98 (38-126) U/L Troponin I <0.012 (0.000-0.034) ng/mL NT-Pro-B Natriuret Pep pg/mL Total Protein 7.6 (6.3-8.2) g/dL Albumin 4.4 (3.5-5.0) g/dL Urine Color Urine Appearance (Clear) Urine pH (5.0-8.0) Ur Specific [place] (1.001-1.035) Urine Protein (Negative) Urine Glucose (UA) (Negative) Urine Ketones (Negative) Urine Blood (Negative) Urine Nitrite (Negative) Urine Bilirubin (Negative) Urine Urobilinogen (<2.0) mg/dL Ur Leukocyte Esterase (Negative) Urine RBC (0-5) /hpf Urine WBC (0-5) /hpf Ur Squamous Epith Cells (0-4) /hpf Urine Bacteria (None) /hpf Urine Mucus (None) /hpf Valproic Acid 127.1 H* ug/mL 07/15/22 07/15/22 Range/Units 12:26 13:06 WBC (3.8-10.6) k/uL RBC (3.80-5.40) m/uL Hgb (11.4-16.0) gm/dL Hct (34.0-46.0) % MCV (80.0-100.0) fL MCH (25.0-35.0) pg MCHC (31.0-37.0) g/dL RDW (11.5-15.5) % Plt Count (150-450) k/uL MPV Neutrophils % % Lymphocytes % % Monocytes % % Eosinophils % % Basophils % % Neutrophils # (1.3-7.7) k/uL Lymphocytes # (1.0-4.8) k/uL Monocytes # (0-1.0) k/uL Eosinophils # (0-0.7) k/uL Basophils # (0-0.2) k/uL Hypochromasia PT (9.0-12.0) sec INR (<1.2) APTT (22.0-30.0) sec Sodium (137-145) mmol/L Potassium (3.5-5.1) mmol/L Chloride (98-107) mmol/L Carbon Dioxide (22-30) mmol/L Anion Gap mmol/L BUN (7-17) mg/dL Creatinine (0.52-1.04) mg/dL Est GFR (CKD-EPI)AfAm (>60 ml/min/1.73 sqM) Est GFR (CKD-EPI)NonAf (>60 ml/min/1.73 sqM) Glucose (74-99) mg/dL Lactic Ac Sepsis Rflx Y Plasma Lactic Acid Shen (0.7-2.0) mmol/L Calcium (8.4-10.2) mg/dL Total Bilirubin (0.2-1.3) mg/dL AST (14-36) U/L ALT (4-34) U/L Alkaline Phosphatase (38-126) U/L Troponin I (0.000-0.034) ng/mL NT-Pro-B Natriuret Pep 2780 pg/mL Total Protein (6.3-8.2) g/dL Albumin (3.5-5.0) g/dL Urine Color Urine Appearance (Clear) Urine pH (5.0-8.0) Ur Specific [place] (1.001-1.035) Urine Protein (Negative) Urine Glucose (UA) (Negative) Urine Ketones (Negative) Urine Blood (Negative) Urine Nitrite (Negative) Urine Bilirubin (Negative) Urine Urobilinogen (<2.0) mg/dL Ur Leukocyte Esterase (Negative) Urine RBC (0-5) /hpf Urine WBC (0-5) /hpf Ur Squamous Epith Cells (0-4) /hpf Urine Bacteria (None) /hpf Urine Mucus (None) /hpf Valproic Acid ug/mL - EKG Data EKG Comments: Sinus rhythm. Ventricular rate 85 bpm, UT interval 192 ms, QRS duration 116 ms, QTC 468 ms. - Radiology Data Radiology results: report reviewed, image reviewed Disposition Clinical Impression: Altered mental status, Congestive heart disease, UTI (urinary tract infection), Chronic kidney disease with end stage renal failure on dialysis Disposition: ADMITTED IP TO THIS HOSP
[2022-07-15 12:42] LABS: Basophils # (A) 0.1 k/uL (0-0.2); Basophils % (A) 1 %; Eosinophils # (A) 0.1 k/uL (0-0.7); Eosinophils % (A) 1 %; HCT 35.1 % (34.0-46.0); HGB 11.4 gm/dL (11.4-16.0); Hypochromasia Slight; Lymphocytes # (A) 1.5 k/uL (1.0-4.8); Lymphocytes % (A) 22 %; MCH 28.4 pg (25.0-35.0); MCHC 32.4 g/dL (31.0-37.0); MCV 87.7 fL (80.0-100.0); Mean Platelet Volume 9.3; Monocytes # (A) 0.2 k/uL (0-1.0); Monocytes % (A) 3 %; Neutrophils # (A) 4.8 k/uL (1.3-7.7); Neutrophils % (A) 71 %; Platelet Count 218 k/uL (150-450); WBC 6.7 k/uL (3.8-10.6)
[2022-07-15 12:55] LABS: Albumin 4.4 g/dL (3.5-5.0); Calcium 9.8 mg/dL (8.4-10.2); Total Bilirubin 0.6 mg/dL (0.2-1.3); Total Protein 7.6 g/dL (6.3-8.2)
[2022-07-15 12:58] LABS: Partial Thromboplastin Time 21.5 sec (22.0-30.0); Prothrombin Time 10.3 sec (9.0-12.0)
[2022-07-15 13:07] LABS: Valproic Acid (Depakene) 127.1 ug/mL
[2022-07-15 13:27] LABS: Appearance,Urine Cloudy (Clear); Bacteria,Urine Occasional /hpf; Bilirubin,Urine Negative (Negative); Blood,Urine Trace (Negative); Color,Urine Yellow; Glucose,Urine (UA) 2+ (Negative); Ketones,Urine Negative (Negative); Leukocyte Esterase,Urine Large (Negative); Mucus,Urine Rare /hpf; Nitrite,Urine Negative (Negative); PH, Urine 7.5 (5.0-8.0); Protein,Urine 3+ (Negative); RBC,Urine 9 /hpf (0-5); Specific Gravity,Urine 1.012 (1.001-1.035); Squamous Epithelial Cell,Urine 2 /hpf (0-4); Urobilinogen,Urine <2.0 mg/dL (<2.0); WBC,Urine 84 /hpf (0-5)
[2022-07-15] MEDS ORDERED: cefTRIAXone IN SWFI 1,000 MG/10 ML SYRINGE IVP STA (13:31)
[2022-07-15] MEDS ORDERED: METOCLOPRAMIDE 5 MG/ML 2 ML VIAL IVP STA (13:55)
--- NOTE | 2022-07-15 13:58 | CT ---
EXAMINATION TYPE: CT brain wo con DATE OF EXAM: 07/15/2022 COMPARISON: 07/03/2022 INDICATION: AMS DLP: 1213.4 mGycm, Automated exposure control for dose reduction was used. CONTRAST: None CT of the brain is performed utilizing 3 mm thick sections through the posterior fossa and 3 mm thick sections through the remaining calvarium. Study is performed within 24 hours of arrival to the hosp ital. No abnormal hyperdensity is present to suggest an acute intracranial hemorrhage. No mass lesion is evident. Some ill-defined hypodensity is within the left brain stem. Subacute lacunar infarct may be within th e left basal ganglia measuring 1.0 cm. This may be an interval change Consider follow-up MRI. Ventricles and sulci are mildly prominent for the patient age. Paranasal sinuses and mastoid air cells within the [id number] are clear. IMPRESSIONS: 1. Hypodensity within the brainstem and within the left basal ganglion could be ischemic changes of indeterminate age. Consider follow-up with MRI.
--- NOTE | 2022-07-15 14:35 | XR ---
EXAMINATION TYPE: XR chest 2V DATE OF EXAM: 07/15/2022 COMPARISON: 09/09/2020 HISTORY: Weakness TECHNIQUE: Frontal and lateral views of the chest are obtained. FINDINGS: There is no focal air space opacity, pleural effusion, or pneumothorax seen. The cardiac silhouette size is within normal limits. The osseous structures are intact. Cardiac device again se en. IMPRESSION: No acute cardiopulmonary process.
[2022-07-15] MEDS ORDERED: ONDANSETRON 4 MG/2 ML VIAL IVP PRN (15:30)
[2022-07-15] MEDS ORDERED: IBUPROFEN 400 MG TAB PO PRN (15:30)
[2022-07-15] MEDS ORDERED: NALOXONE 0.4 MG/ML 1 ML VIAL IV PRN (15:30)
[2022-07-15] MEDS ORDERED: ACETAMINOPHEN IV (For NPO) 1,000 MG in EMPTY BAG 1 BAG IVPB PRN (15:53)
[2022-07-15] MEDS ORDERED: levETIRAcetam 500 MG TAB PO SCH (16:00)
[2022-07-15] MEDS: DIVALPROEX 500 MG TABLET.DR PO SCH ×2 (17:09→23:46)
[2022-07-15] MEDS: CALCIUM ACETATE 667 MG TAB PO SCH (17:09)
[2022-07-15] MEDS: SEVELAMER 800 MG TAB PO SCH (17:10)
[2022-07-15 20:14] LABS: Glucose,Whole Blood 106 mg/dL (70-110)
[2022-07-15 20:44] LABS: Glucose,Whole Blood 121 mg/dL (70-110)
[2022-07-15] MEDS ORDERED: propofoL 100 ML IV ONE (20:45)
[2022-07-15] MEDS ORDERED: levETIRAcetam IV 1,000 MG in SALINE 1 100ML.BAG IVPB STA (20:53)
[2022-07-15] MEDS ORDERED: LACOSAMIDE 50 MG TABLET PO SCH (21:00)
[2022-07-15 21:19] LABS: Basophils % (A) 0 %; Eosinophils # (A) 0.1 k/uL (0-0.7); Eosinophils % (A) 1 %; HCT 34.6 % (34.0-46.0); HGB 11.4 gm/dL (11.4-16.0); Hypochromasia Slight; Lymphocytes # (A) 1.7 k/uL (1.0-4.8); Lymphocytes % (A) 12 %; Mean Platelet Volume 9.5; Monocytes # (A) 0.7 k/uL (0-1.0); Monocytes % (A) 5 %; Neutrophils # (A) 11.3 k/uL (1.3-7.7); Neutrophils % (A) 81 %; Platelet Count 245 k/uL (150-450); RBC 3.93 m/uL (3.80-5.40); RDW 14.1 % (11.5-15.5); WBC 13.8 k/uL (3.8-10.6)
--- NOTE | 2022-07-15 21:19 | XR ---
EXAMINATION TYPE: XR chest 1V portable DATE OF EXAM: 07/15/2022 COMPARISON: Today HISTORY: Weakness TECHNIQUE: Single view FINDINGS: The endotracheal tube is 2.5 cm from the flex. Heart and mediastinum are normal. Lungs ar e clear of infiltrate. There is left axillary neurostimulator. No pleural effusion. There is nasogast ted tube in the stomach. IMPRESSION: No active cardiopulmonary disease. Normal heart. No change.
[2022-07-15 21:30] LABS: Calcium 8.4 mg/dL (8.4-10.2); Magnesium 2.1 mg/dL (1.6-2.3); Potassium 3.8 mmol/L (3.5-5.1)
[2022-07-15 21:48] LABS: ABG Base Excess 0.7 mmol/L; ABG HCO3 25 mmol/L (21-25); ABG Oxygen Saturation 99.2 % (94-97); ABG PCO2 37 mmHg (35-45); ABG PH 7.44 (7.35-7.45); ABG PO2 >400 mmHg (83-108); ABG TCO2 26 mmol/L (19-24); Allen Test Performed? Yes
--- NOTE | 2022-07-15 22:48 | CT ---
EXAMINATION TYPE: CT angio head neck DATE OF EXAM: 07/15/2022 COMPARISON: None HISTORY: CODE STROKE CT DLP: 551.3 mGycm Automated exposure control for dose reduction was used. CONTRAST: Performed with IV Contrast, patient injected with 65 mL of Isovue 370. Images obtained from the aortic arch through the vertex of the brain with the IV contrast. There are Three-D postprocessed images. There is normal branching pattern of the great vessels of the aortic arch. There is endotracheal tube . No filling defects seen in the central pulmonary arteries. There is arterial flow in both subclavian arteries. There is arterial flow in the common internal and external carotid arteries bilaterally. There is sig nificant plaque formation at the left carotid artery bifurcation and 75% stenosis at the origin of th e left internal carotid artery. There is 35% stenosis origin of the right internal card artery. There is arterial flow in both vertebral arteries. There is arterial flow in the vertebral basilar artery system. There is diminutive left vertebral artery. There is no evidence of carotid or vertebral artery aneurysm or dissection. There is arterial flow in the anterior middle and posterior cerebral arteries bilaterally. No mass effect. No evidence of intr acranial hemodynamic arterial stenosis. There is normal enhancement of the venous sinuses. There are fluid levels in the maxillary sinuses. IMPRESSION: Irregular moderate plaque at the left carotid artery bifurcation and estimated 75% stenosis origin of the left internal carotid artery. There is approximate similar 35% stenosis origin right internal ca rotid artery. No significant intracranial angiographic abnormality.
[2022-07-15] MEDS: MIDAZOLAM HCL 50 MG in SODIUM CHLORIDE 0.9% 40 ML IV SCH (23:13)
[2022-07-15] MEDS ORDERED: SODIUM CHLORIDE 0.9% 1,000 ML IV ONE (23:15)
[2022-07-15] MEDS: LACOSAMIDE IV 100 MG in SODIUM CHLORIDE 0.9% 50 ML IVPB SCH (23:41)
[2022-07-15] MEDS: VASCEPA 1 GM PO SCH (23:46)
[2022-07-15] MEDS: ATORVASTATIN 40 MG TAB PO SCH (23:46)
[2022-07-15] MEDS: METOPROLOL TARTRATE 25 MG TAB PO SCH (23:46)
[2022-07-15] MEDS: POTASSIUM CHLORIDE ER 20 MEQ TAB.ER PO SCH (23:46)
[2022-07-15] MEDS: levETIRAcetam 500 MG TAB PO SCH (23:46)
[2022-07-15] MEDS: CHLORHEXIDINE GLUCONATE 15 ML CUP MUCOUS MEM SCH (23:46)
[2022-07-15] MEDS: DIVALPROEX ER 250 MG TAB.ER.24H PO SCH (23:47)
[2022-07-16] MEDS: levETIRAcetam IV 500 MG in SODIUM CHLORIDE 0.9% 100 ML IVPB SCH ×3 (00:38→23:38)
[2022-07-16] MEDS ORDERED: SODIUM CHLORIDE 0.9% 1,000 ML IV ONE (02:22)
[2022-07-16] MEDS: MIDAZOLAM HCL 50 MG in SODIUM CHLORIDE 0.9% 40 ML IV SCH ×2 (02:52→05:28)
--- NOTE | 2022-07-16 03:08 | P.EN ---
I was called to bedside by A team RN for assessment , patient seemed to be Awake , but possibly having back to back seizures. does not follow commands or make eye contact. vital signs stable patient has history of seizure, with multiple presentations due to breakthrough seizures. she has been working with neurology to adjust her meds she come in today for unresponsiveness and possible seizure. patient had an episode of emesis with concerns regarding protecting her airways and aspiration. ED performed a CT brain which showed subacute lacunar infarct and suspicious brain stem lesion A/P status epilepticus transfer to ICU intubate to protect airways and control seizures
[2022-07-16 05:25] LABS: Basophils % (A) 1 %; Eosinophils % (A) 0 %; Lymphocytes # (A) 1.6 k/uL (1.0-4.8); Lymphocytes % (A) 30 %; MCH 28.2 pg (25.0-35.0); MCHC 33.3 g/dL (31.0-37.0); MCV 84.7 fL (80.0-100.0); Monocytes # (A) 0.2 k/uL (0-1.0); Monocytes % (A) 3 %; Neutrophils # (A) 3.5 k/uL (1.3-7.7); Neutrophils % (A) 65 %; Platelet Count 167 k/uL (150-450); RBC 3.07 m/uL (3.80-5.40); RDW 14.5 % (11.5-15.5); WBC 5.3 k/uL (3.8-10.6)
[2022-07-16 05:39] LABS: HGB 8.7 gm/dL (11.4-16.0)
[2022-07-16 05:49] LABS: Calcium 8.8 mg/dL (8.4-10.2); Potassium 3.6 mmol/L (3.5-5.1)
[2022-07-16 05:50] LABS: ABG Base Excess 2.2 mmol/L; ABG HCO3 24 mmol/L (21-25); ABG PCO2 24 mmHg (35-45); ABG PO2 165 mmHg (83-108); ABG TCO2 25 mmol/L (19-24); Allen Test Performed? Yes
[2022-07-16 06:18] LABS: Glucose,Whole Blood 134 mg/dL (70-110)
--- NOTE | 2022-07-16 06:38 | XR ---
EXAMINATION TYPE: XR chest 1V portable DATE OF EXAM: 07/16/2022 CLINICAL HISTORY: Difficulty breathing progress study. TECHNIQUE: Single AP portable upright view of the chest is obtained. COMPARISON: Chest x-ray from one day earlier FINDINGS: Stable endotracheal and orogastric tubes. Lungs remain clear. Cardiac silhouette size stable and within normal limits. Overlying loop recorder redemonstrated. Underlying scoliosis again seen. There is overlying left neck stimulator device rede monstrated IMPRESSION: No acute pulmonary process. No significant change from one day earlier.
[2022-07-16] MEDS: DIVALPROEX 500 MG TABLET.DR PO SCH ×4 (08:18→16:31)
[2022-07-16] MEDS: DIVALPROEX ER 250 MG TAB.ER.24H PO SCH ×2 (08:18→10:42)
[2022-07-16] MEDS: CHLORHEXIDINE GLUCONATE 15 ML CUP MUCOUS MEM SCH ×2 (08:45→21:12)
[2022-07-16] MEDS: CALCIUM ACETATE 667 MG TAB PO SCH ×3 (08:46→16:18)
[2022-07-16] MEDS: PANTOPRAZOLE 40 MG TABLET PO SCH (08:46)
[2022-07-16] MEDS: METOPROLOL TARTRATE 25 MG TAB PO SCH ×3 (08:46→21:12)
[2022-07-16] MEDS: CLOPIDOGREL 75 MG TAB PO SCH (08:46)
[2022-07-16] MEDS: ZONISAMIDE 100 MG CAP PO SCH ×3 (08:47→21:12)
[2022-07-16] MEDS: SEVELAMER 800 MG TAB PO SCH ×3 (08:50→16:17)
[2022-07-16] MEDS: VASCEPA 1 GM PO SCH ×2 (08:57→21:53)
[2022-07-16] MEDS: POTASSIUM CHLORIDE ER 20 MEQ TAB.ER PO SCH ×2 (09:03→21:12)
[2022-07-16] MEDS: levETIRAcetam 500 MG TAB PO SCH (09:10)
[2022-07-16] MEDS: LACOSAMIDE IV 100 MG in SODIUM CHLORIDE 0.9% 50 ML IVPB SCH (09:32)
--- NOTE | 2022-07-16 11:36 | P.CNNES ---
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 History is obtained from medical record that. Patient is known to our neurology team and has been seen by our team multiple times because of breakthrough seizures. It seems that the patient was at dialysis clinic yesterday and became unresponsive. She was not following commands or answering questions as a result she was unable to get her dialysis treatment. Per the ED team EMS stated that the patient was producing few words but was not holding a conversation and was alert oriented 1. On arrival she was actively vomiting but was not responding to any questions. Patient continues to be on home medication of Keppra 500 mg 1 tablet twice a day with an additional dose postdialysis on Monday was a Monday of 500 mg, she is on sonogram 100 mg daily, Depakote 500 mg every 8 hours with an additional 250 mg 1 tablet twice a day. Also the patient is on local some eye with a tapering dose and is seems the pa isa is on 50 mg twice a day but unsure of exact dose she is on currently As a result the she had a CT of the head which is reported as hypodensity within the brainstem and within the left basal ganglia could be ischemic changes of and determine age. Consider follow-up MRI. Yesterday the ICU team notified me of that CT finding and I notified them to activate a stroke code and get a CT angiography of the head and neck to rule out any thrombus. I could not access the CT imaging because of issues with the system. An 18 was activated since the patient was awake but was possibly having back-to- back seizure not following commands or making eye contact. Patient had an episode of emesis yesterday as well. As a result the patient was intubated on a ventilator to protect her airway. It was felt the patient was in status by the A-team. As a result she was started on IV propofol and Versed CT angiography of the head and neck was reported as irregular moderate plaque at the left carotid artery bifurcation and estimated 75% stenosis origin of the left ICA carotid artery. There is approximately similar 35% stenosis right internal carotid artery. No significant intercranial and angiographic abnormality. I personally spoke with interventional neurologist (Dr. Harrison) who stated there is no intervention from his perspective. Also at 2300 on 1220 09/22/2021 was notified by the nurse after coming back from the imaging patient had some shaking and had some posturing concerning for mya demarco. She was getting IV Keppra loading dose by A-team and notified them to go up on her Versed and transfer patient for manager long term care EEG. Also increased Versed from 50mg bid to 100mg bid. Today I was able to access the CT and I felt the patient had the basal ganglia changes on her prior admission and it doesn't look acute or subacute in my opinion. Regarding the brainstem CT is not the best study for brainstem but she does have hypodensity but does not look like acute or subacute in my opinion as well. Some of her other workup during his hospital visit consisted of : Plasma lactic acid venous 3.0 on presentation and improved to 1.6. Sodium, calcium and TSH is within normal limits Initial serum glucose is 288. Initial white blood cell 6.7 repeated 13.8 and most current one is within normal limits Urinalysis is possible suggestive of acute urinary tract infection Urine tox screen is valproic acids 127 and the normal supposed to be between 50- 120. Her level is slightly supratherapeutic Of note as stated earlier the patient was seen by our neurology team multiple times in the hospital because of breakthrough seizures. Patient was last seen by our team on 07/06/2022 for breakthrough seizure and she had a prolonged 2-1/2 hour EEG according to my colleague's note and the preliminary report revealed infrequent runs of generalized sharp and slow waves or spike and slow waves of 2-3 Hz lasting 1-1-1/2 second suggestive of primary generalized epilepsy. And it was recommended that Vimpat is not indicated for primary generalized epilepsy and the goal was to gradually wean the Vimpat. Therefore Zonegran was added in addition. Please refer to Dr. Sosa's note for further details. Review of Systems Review of system is limited but the prone positive and negative as per HPI Past Medical History Past Medical History: Chest Pain / Angina, CVA/TIA, Diabetes Mellitus, GERD/Reflux, Hyperlipidemia, Hypertension, Memory Impairment, Osteoarthritis (OA), Renal Disease, Seizure Disorder, Thyroid Disorder Additional Past Medical History / Comment(s): Last seizure approximately one month ago. Spouse states she used to have seizures 4X per week until she had vagal nerve stimulator placed, now has seizures approximately once a week to once a month. Dialysis MOWEFR. Neuropathy, left drop foot, only able to walk short distances, otherwise uses wheelchair. 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 Never diagnosed with Sleep Apnea but spouse states she does stop breathing through the night and he has to shake her to start breathing again. Varicose veins. History of Any Multi-Drug Resistant Organisms: None Reported Past Surgical History: Section, Tonsillectomy, Uterine Ablation Additional Past Surgical History / Comment(s): Left arm fistula, loop recorder, vagus nerve stimulator. Past Anesthesia/Blood Transfusion Reactions: Motion Sickness Additional Past Anesthesia/Blood Transfusion Reaction / Comment(s): Family hx u nknown, pt adopted. Past Psychological History: Bipolar Smoking Status: Former smoker Past Alcohol Use History: None Reported Additional Past Alcohol Use History / Comment(s): Quit smoking in 2005. Past Drug Use History: None Reported - Past Family History Father Family Medical History: Unable to Obtain Additional Family Medical History / Comment(s): Pt adopted. Medications and Allergies Home Medications Medication Instructions Recorded Confirmed Type Clopidogrel [Plavix] 75 mg PO DAILY #30 tab 09/05/20 07/15/22 Rx Atorvastatin [Lipitor] 40 mg PO HS 03/23/21 07/15/22 History Dulaglutide [Trulicity] 3 mg SQ Q7D 03/23/21 07/15/22 History Sevelamer [Renvela] 800 mg PO BID-W/MEALS 03/23/21 07/15/22 History Vascepa 1gm 1 gm PO BID 03/23/21 07/15/22 History Calcium Acetate 667 mg PO TID-W/MEALS 02/25/22 07/15/22 History Metoprolol Tartrate [Lopressor] 25 mg PO BID 02/25/22 07/15/22 History Pantoprazole [Protonix] 40 mg PO DAILY 02/25/22 07/15/22 History Potassium Chloride ER [K-Dur 20] 20 meq PO BID 02/25/22 07/15/22 History levETIRAcetam [Keppra] 500 mg PO BID@0700,2100 02/25/22 07/15/22 History Divalproex ER [Depakote ER] 250 mg PO BID 30 Days #60 tab 02/28/22 07/15/22 Rx levETIRAcetam [Keppra] 500 mg PO MoWeFr@1600 30 Days #15 02/28/22 07/15/22 Rx tab Sevelamer [Renvela] 1,600 mg PO W/SUPPER 04/29/22 07/15/22 History Lacosamide [Vimpat] See Taper PO DIRECTED 21 Days 07/06/22 07/15/22 Rx #49 tab Zonisamide [Zonegran] 100 mg PO DAILY 30 Days #30 cap 07/06/22 07/15/22 Rx Divalproex [Depakote] 500 mg PO Q8H 07/15/22 07/15/22 History Allergies Allergy/AdvReac Type Severity Reaction Status Date / Time Penicillins Allergy Itching Verified 07/15/22 13:57 Physical Examination - Vital Signs Vital Signs: Vital Signs Temp Pulse Pulse Resp BP BP Pulse Ox 07/16/22 10:00 72 14 131/78 100 07/16/22 09:30 71 14 100 07/16/22 09:00 73 14 131/78 100 07/16/22 08:30 73 14 100 07/16/22 08:22 07/16/22 08:21 07/16/22 08:00 96.2 F L 74 14 100 07/16/22 07:30 75 14 99 07/16/22 07:00 76 14 98 07/16/22 06:30 75 14 99 07/16/22 06:00 77 20 100 07/16/22 05:30 77 20 99 07/16/22 05:00 77 20 98 07/16/22 04:30 79 20 98 07/16/22 04:02 07/16/22 04:00 97.5 F L 80 20 98 07/16/22 03:40 07/16/22 03:30 83 20 99 07/16/22 03:00 79 20 100 07/16/22 02:30 80 20 100 07/16/22 02:00 82 20 100 07/16/22 01:30 83 20 100 07/16/22 01:00 83 20 100 12/24/22 00:30 93 20 200/93 100 07/16/22 00:20 89 20 100 07/16/22 00:10 97.8 F 95 20 100 07/16/22 00:00 83 20 99 07/15/22 23:50 85 20 99 07/15/22 23:40 87 20 99 07/15/22 23:30 87 20 99 07/15/22 23:20 89 20 99 07/15/22 23:10 90 20 99 07/15/22 23:00 91 20 100 07/15/22 22:50 90 20 100 07/15/22 22:40 20 100 07/15/22 22:30 98.1 F 110 H 20 200/93 94 L 07/15/22 22:00 98 07/15/22 21:55 07/15/22 21:50 89 20 99 07/15/22 21:40 90 20 99 07/15/22 21:30 90 20 99 07/15/22 21:20 95 20 100 07/15/22 21:11 07/15/22 21:10 20 99 07/15/22 21:00 98.1 F 105 H 20 99 07/15/22 20:50 93 0 L 99 07/15/22 20:42 19 07/15/22 20:15 229/96 07/15/22 20:00 98.4 F 92 19 164/75 98 07/15/22 18:30 98.8 F 92 16 168/77 92 L 07/15/22 17:14 98.6 F 93 16 115/60 96 07/15/22 15:23 95.8 F L 86 18 103/59 94 L 07/15/22 13:40 95.4 F L 89 16 160/83 97 07/15/22 13:03 87 16 168/57 100 07/15/22 11:22 85 16 167/86 96 FiO2 07/16/22 10:00 07/16/22 09:30 07/16/22 09:00 07/16/22 08:30 07/16/22 08:22 30 07/16/22 08:21 30 07/16/22 08:00 30 07/16/22 07:30 07/16/22 07:00 07/16/22 06:30 07/16/22 06:00 07/16/22 05:30 07/16/22 05:00 07/16/22 04:30 07/16/22 04:02 30 07/16/22 04:00 30 07/16/22 03:40 30 07/16/22 03:30 07/16/22 03:00 07/16/22 02:30 07/16/22 02:00 07/16/22 01:30 07/16/22 01:00 07/16/22 00:30 07/16/22 00:20 07/16/22 00:10 40 07/16/22 00:00 40 07/15/22 23:50 07/15/22 23:40 07/15/22 23:30 07/15/22 23:20 07/15/22 23:10 07/15/22 23:00 07/15/22 22:50 07/15/22 22:40 07/15/22 22:30 07/15/22 22:00 07/15/22 21:55 40 07/15/22 21:50 07/15/22 21:40 07/15/22 21:30 07/15/22 21:20 07/15/22 21:11 100 07/15/22 21:10 40 07/15/22 21:00 100 07/15/22 20:50 07/15/22 20:42 07/15/22 20:15 07/15/22 20:00 07/15/22 18:30 07/15/22 17:14 07/15/22 15:23 07/15/22 13:40 07/15/22 13:03 07/15/22 11:22 Intake and Output 07/15/22 07/16/22 07/16/22 22:59 06:59 14:59 Intake Total 5.619 1479.694 74.266 Output Total 0 100 Balance 5.619 1479.694 -25.734 Intake: IV 1260 40 Lacosamide IV 100 mg In 50 Sodium Chloride 0.9% 50 ml @ 100 mls/hr IVPB BID [facility] Rx#:[id number] NS @ KVO 10 40 Sodium Chloride 0.9% 1, 1000 000 ml @ 999 mls/hr IV . Q1H1M ONE Rx#:[id number] levETIRAcetam IV 1,000 mg 100 In Saline 1 100ml.bag @ 400 mls/hr IVPB ONCE STA Rx#:[id number] levETIRAcetam IV 500 mg 100 In Sodium Chloride 0.9% 100 ml @ 400 mls/hr IVPB Q12H [facility] Rx#:[id number] Intake, IV Titration 5.619 219.694 34.266 Amount Midazolam HCl 50 mg In 80.417 33.25 Sodium Chloride 0.9% 40 ml @ 5 MG/HR 5 mls/hr IV .Q10H [facility] Rx#:[id number] propofoL 1,000 mg In 5.619 139.277 1.016 Empty Bag 1 bag @ 15 MCG/ KG/MIN 5.715 mls/hr IV . [id number] [facility] Rx#:[id number] Output: Gastric Drainage 100 Urine 0 0 Other: Weight 63.503 kg 75 kg ABP, PAP, CO, CI - Last 8 Hours Arterial Blood Pressure 155/58 Arterial Blood Pressure 152/57 Arterial Blood Pressure 140/54 Arterial Blood Pressure 118/46 Arterial Blood Pressure 123/49 Arterial Blood Pressure 113/46 Arterial Blood Pressure 109/47 Arterial Blood Pressure 109/45 Arterial Blood Pressure 114/68 Arterial Blood Pressure 118/52 Arterial Blood Pressure 123/55 Arterial Blood Pressure 110/51 Arterial Blood Pressure 123/94 Arterial Blood Pressure 110/52 GENERAL: The patient is lying in bed and does not appear in acute distress. CHEST: The heart rate is regular rate rhythm. No murmurs to auscultation. LUNG: Clear to auscultation bilaterally no wheezing noted throughout. Not labored breathing. Intubated on ventilator. ABDOMEN/GI: Bowel sounds present in all 4 quadrants. No tenderness to palpation throughout. NEUROLOGICAL: Is on IV Versed 5mg/hr (earlier today was at 15mg/hr) and IV Propofol 20mcg/kg/min. Higher mental function: The patient is comatose. Not waking up or verbalizing or following commands. Cranial nerves: I had to manually open eyes. Primary gaze is midline. The pupils are round, pinpoint equal and sluggishly reactive to light. No facial weakness. Intubated on ventilator. Is breathing over the vent. Motor: The strength is hard to assess since sedated. Not withdrawaling any of extremities. Decrease tone throughout. Normal bulk. Cerebellum: Unable to assess. Sensation: Unable to assess light touch. Reflexes (right/left): 1+ throughout. Plantars are mute bilaterally. Results - Laboratory Findings CBC and BMP: 07/16/22 05:05 07/16/22 05:05 Abnormal Lab Findings: Abnormal Labs 07/15/22 07/15/22 07/15/22 12:26 12:26 12:26 WBC RBC Hgb Hct Neutrophils # APTT 21.5 L ABG pH ABG pCO2 ABG pO2 ABG Total CO2 ABG O2 Saturation Sodium Chloride BUN 32 H Creatinine 9.47 H* Glucose 288 H POC Glucose (mg/dL) Plasma Lactic Acid Shen Urine Appearance Cloudy H Urine Protein 3+ H Urine Glucose (UA) 2+ H Urine Blood Trace H Ur Leukocyte Esterase Large H Urine RBC 9 H Urine WBC 84 H Urine Bacteria Occasional H Urine Mucus Rare H Valproic Acid 127.1 H* 07/15/22 07/15/22 07/15/22 12:26 15:26 18:00 WBC RBC Hgb Hct Neutrophils # APTT ABG pH ABG pCO2 ABG pO2 ABG Total CO2 ABG O2 Saturation Sodium Chloride BUN Creatinine Glucose POC Glucose (mg/dL) Plasma Lactic Acid Shen 3.0 H* 3.8 H* 2.4 H* Urine Appearance Urine Protein Urine Glucose (UA) Urine Blood Ur Leukocyte Esterase Urine RBC Urine WBC Urine Bacteria Urine Mucus Valproic Acid 07/15/22 07/15/22 07/15/22 20:43 21:10 21:10 WBC 13.8 H RBC Hgb Hct Neutrophils # 11.3 H APTT ABG pH ABG pCO2 ABG pO2 ABG Total CO2 ABG O2 Saturation Sodium 146 H Chloride 108 H BUN 32 H Creatinine 8.86 H* Glucose 124 H POC Glucose (mg/dL) 121 H Plasma Lactic Acid Shen Urine Appearance Urine Protein Urine Glucose (UA) Urine Blood Ur Leukocyte Esterase Urine RBC Urine WBC Urine Bacteria Urine Mucus Valproic Acid 07/15/22 07/16/22 07/16/22 21:45 05:05 05:05 WBC RBC 3.07 L Hgb 8.7 L D Hct 26.0 L Neutrophils # APTT ABG pH ABG pCO2 ABG pO2 >400 H ABG Total CO2 26 H ABG O2 Saturation 99.2 H Sodium Chloride BUN 39 H Creatinine 9.96 H* Glucose 131 H POC Glucose (mg/dL) Plasma Lactic Acid Shen Urine Appearance Urine Protein Urine Glucose (UA) Urine Blood Ur Leukocyte Esterase Urine RBC Urine WBC Urine Bacteria Urine Mucus Valproic Acid 07/16/22 07/16/22 05:45 06:17 WBC RBC Hgb Hct Neutrophils # APTT ABG pH 7.60 H* ABG pCO2 24 L ABG pO2 165 H ABG Total CO2 25 H ABG O2 Saturation 100.0 H Sodium Chloride BUN Creatinine Glucose POC Glucose (mg/dL) 134 H Plasma Lactic Acid Shen Urine Appearance Urine Protein Urine Glucose (UA) Urine Blood Ur Leukocyte Esterase Urine RBC Urine WBC Urine Bacteria Urine Mucus Valproic Acid Assessment and Plan Assessment: This is a 52-year-old woman with medical refractory epilepsy, VNS who presents to the hospital numerous times for breakthrough seizures. Clinical status epilepticus. Her epilepsy is not controlled Medically refractory epilepsy on VNS (has primary generalized epilepsy according preliminary 2.5 hour EEG in earlier 06/2022) Left ICA stenosis 75% on CTA Hypodensity of left basal ganglia and brainstem reported on CT (but I feel basal ganglia is seen on prior CT and CT head is not best study for brainstem). Probable acute UTI History of stroke with residual left hemiparesis Diabetes mellitus Dnd-stage renal is on dialysis Hypertension Plan: * STAT EEG is ordered and pending. * If EEG does not show status epilepticus will hold transfer unless patient continues to have recurrent seizures. * I will increase her Zonegran from 100mg daily to 100mg bid. Continue her home Depakote 500mg 1 tab tid with additional 250mg bid, Keppra 500mg bid with additional 500mg post dialysis. Also on Vimpat 50mg bid (on last admission was recommended by Dr. Sosa to taper since she has primary generalized epilepsy). * I highly recommend patient to follow-up with epileptilologist since has frequent seizures/medical refractory epilepsy. Consider Epidiolex for control of seizures. * Patient has 2.5 hour EEG in our facility on 07/06/2022 (prior admission) and preliminary was reported as runs of sharp and slow waves or spike and slow wave at 2-3 Hz lasting 1 -1.5 seconds suggestive of primary generalized epilepsy. No official report yet. * Continue neuro checks. * Left ICA stenosis 75% on CTA. I consulted vascular surgery team for carotid stenosis and I ordered carotid duplex. * Hypodensity of left basal ganglia and brainstem reported on CT (but I feel basal ganglia is seen on prior CT and CT head is not best study for brainstem). I will attempt to get repeat CT head down the line for compari son. * Patient is on home dose Plavix 75mg daily and Lipitor 40mg qhs which is sufficient for secondary stroke prophylaxis. * Ordered repeat Depakote level. * PT and OT are consulted. * Will defer the rest of medical management to primary team. * For DVT prophylaxis: on subq heparin. I have spent a total of 40 minutes managing patient (taking care of her seizures, talking to different physicians regarding her management). The plan is discussed with Dr. Jones and ICU team. Thank you for the consultation. Time with Patient: Greater than 30
--- NOTE | 2022-07-16 12:00 | P.CNPUL ---
History of Present Illness Consult date: 07/16/22 Requesting physician: Francine Acosta Reason for consult: other (status epilepticus, patient is intubated to protect her airways.) Chief complaint: seizures. Poorly controlled. History of present illness: this is a 52-year-old female with history of chronic seizure disorder, her seizures have been recently poorly controlled, patient follows up with the neurologist/Dr. Ohraa for her seizures. Patient was brought into the ER yesterday with altered mental status, intermittent episodes of nausea and vomiting. Apparently the patient was dropped off yesterday at the dialysis unit/clinic, and when she got there patient became unresponsive, she did not notice to have any seizure-like activity. She was not speaking or answering any questions. Patient was unable to get her dialysis treatment, hence the patient was brought in by EMS to the ER yesterday. Apparently the patient was admitted, and shortly after she was admitted she had recurrent episodes of seizures,/status epilepticus.that a team responded to a call from the nurse on the floor, patient was evaluated by the hospitalist, did not seem to follow any commands or make any eye contact. And at one point it was felt that the patient had status epilepticus. Apparently the patient had to be intubated to protect her airways, she was admitted to the ICU, and the plan was to consider transferring the patient to [facility] because of her status epilepticus and this was based upon the recommendation of the neurologist who was notified about this patient. Patient was placed on multiple medications for her seizures, and these will be noted below. Today I evaluated the patient while she is on mechanical ventilation, and I recommended that we start considering weaning and stopping her Versed which is 5 mg per hour, he is also on propofol at 20 mcg/kg/m, and will possibly extubate the patient. She was evaluated by the neurologist, and he feels that the seizures seem to be presently under control, and would be worthwhile giving the patient a weaning trial and possibly extubation. Her assist-control rate is 14 tidal volume 400 FiO2 30 PEEP of 5. ABG from previous settings was noted she had a pO2 of 165 pCO2 24 pH of 7.60, however since then the ventilator settings have been really adjusted. Her last seizure was reported at [address] of the brain last night showed subacute lacunar infarct, and suspicious brainstem lesion.however the neurologist evaluated the CT of the brain, and did not feel that this is a worrisome finding.patient is getting IV Keppra loading dose, she is also getting Versed and propofol, and she was givenDepakote twice a day, patient is also receiving Sdlgfc11 mg IV twice a day.in addition the patient is on zonisamide 100 mg by mouth twice a dayobviously the patient is maximized on all antiseizure medications, and I'm hoping her seizures are under control at present, will give the patient a trial of weaning and possibly extubationobviously no further plans to transfer the patient at this point. Review of Systems ROS unobtainable: due to endotracheal tube Past Medical History Past Medical History: Chest Pain / Angina, CVA/TIA, Diabetes Mellitus, GERD/Reflux, Hyperlipidemia, Hypertension, Memory Impairment, Osteoarthritis (OA), Renal Disease, Seizure Disorder, Thyroid Disorder Additional Past Medical History / Comment(s): Last seizure approximately one month ago. Spouse states she used to have seizures 4X per week until she had vagal nerve stimulator placed, now has seizures approximately once a week to once a month. Dialysis MOWEFR. Neuropathy, left drop foot, only able to walk short distances, otherwise uses wheelchair. 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 Never diagnosed with Sleep Apnea but spouse states she does stop breathing through the night and he has to shake her to start breathing again. Varicose veins. History of Any Multi-Drug Resistant Organisms: None Reported Past Surgical History: Section, Tonsillectomy, Uterine Ablation Additional Past Surgical History / Comment(s): Left arm fistula, loop recorder, vagus nerve stimulator. Past Anesthesia/Blood Transfusion Reactions: Motion Sickness Additional Past Anesthesia/Blood Transfusion Reaction / Comment(s): Family hx u nknown, pt adopted. Past Psychological History: Bipolar Smoking Status: Former smoker Past Alcohol Use History: None Reported Additional Past Alcohol Use History / Comment(s): Quit smoking in 2005. Past Drug Use History: None Reported - Past Family History Father Family Medical History: Unable to Obtain Additional Family Medical History / Comment(s): Pt adopted. Medications and Allergies Home Medications Medication Instructions Recorded Confirmed Type Clopidogrel [Plavix] 75 mg PO DAILY #30 tab 09/05/20 07/15/22 Rx Atorvastatin [Lipitor] 40 mg PO HS 03/23/21 07/15/22 History Dulaglutide [Trulicity] 3 mg SQ Q7D 03/23/21 07/15/22 History Sevelamer [Renvela] 800 mg PO BID-W/MEALS 03/23/21 07/15/22 History Vascepa 1gm 1 gm PO BID 03/23/21 07/15/22 History Calcium Acetate 667 mg PO TID-W/MEALS 02/25/22 07/15/22 History Metoprolol Tartrate [Lopressor] 25 mg PO BID 02/25/22 07/15/22 History Pantoprazole [Protonix] 40 mg PO DAILY 02/25/22 07/15/22 History Potassium Chloride ER [K-Dur 20] 20 meq PO BID 02/25/22 07/15/22 History levETIRAcetam [Keppra] 500 mg PO BID@0700,2100 02/25/22 07/15/22 History Divalproex ER [Depakote ER] 250 mg PO BID 30 Days #60 tab 02/28/22 07/15/22 Rx levETIRAcetam [Keppra] 500 mg PO MoWeFr@1600 30 Days #15 02/28/22 07/15/22 Rx tab Sevelamer [Renvela] 1,600 mg PO W/SUPPER 04/29/22 07/15/22 History Lacosamide [Vimpat] See Taper PO DIRECTED 21 Days 07/06/22 07/15/22 Rx #49 tab Zonisamide [Zonegran] 100 mg PO DAILY 30 Days #30 cap 07/06/22 07/15/22 Rx Divalproex [Depakote] 500 mg PO Q8H 07/15/22 07/15/22 History Allergies Allergy/AdvReac Type Severity Reaction Status Date / Time Penicillins Allergy Itching Verified 07/15/22 13:57 Physical Exam Vitals: Vital Signs Temp Pulse Pulse Resp BP BP Pulse Ox 07/16/22 11:31 07/16/22 11:00 71 14 100 07/16/22 10:30 71 14 100 07/16/22 10:00 72 14 131/78 100 07/16/22 09:30 71 14 100 07/16/22 09:00 73 14 131/78 100 07/16/22 08:30 73 14 100 07/16/22 08:22 07/16/22 08:21 07/16/22 08:00 96.2 F L 74 14 100 07/16/22 07:30 75 14 99 07/16/22 07:00 76 14 98 07/16/22 06:30 75 14 99 07/16/22 06:00 77 20 100 07/16/22 05:30 77 20 99 07/16/22 05:00 77 20 98 07/16/22 04:30 79 20 98 07/16/22 04:02 07/16/22 04:00 97.5 F L 80 20 98 07/16/22 03:40 07/16/22 03:30 83 20 99 07/16/22 03:00 79 20 100 07/16/22 02:30 80 20 100 07/16/22 02:00 82 20 100 07/16/22 01:30 83 20 100 07/16/22 01:00 83 20 100 07/16/22 00:30 93 20 200/93 100 07/16/22 00:20 89 20 100 07/16/22 00:10 97.8 F 95 20 100 07/16/22 00:00 83 20 99 07/15/22 23:50 85 20 99 07/15/22 23:40 87 20 99 07/15/22 23:30 87 20 99 07/15/22 23:20 89 20 99 07/15/22 23:10 90 20 99 07/15/22 23:00 91 20 100 07/15/22 22:50 90 20 100 07/15/22 22:40 20 100 07/15/22 22:30 98.1 F 110 H 20 200/93 94 L 07/15/22 22:00 98 07/15/22 21:55 07/15/22 21:50 89 20 99 07/15/22 21:40 90 20 99 07/15/22 21:30 90 20 99 07/15/22 21:20 95 20 100 07/15/22 21:11 07/15/22 21:10 20 99 07/15/22 21:00 98.1 F 105 H 20 99 07/15/22 20:50 93 0 L 99 07/15/22 20:42 19 07/15/22 20:15 229/96 07/15/22 20:00 98.4 F 92 19 164/75 98 07/15/22 18:30 98.8 F 92 16 168/77 92 L 07/15/22 17:14 98.6 F 93 16 115/60 96 07/15/22 15:23 95.8 F L 86 18 103/59 94 L 07/15/22 13:40 95.4 F L 89 16 160/83 97 07/15/22 13:03 87 16 168/57 100 FiO2 07/16/22 11:31 30 07/16/22 11:00 07/16/22 10:30 07/16/22 10:00 07/16/22 09:30 07/16/22 09:00 07/16/22 08:30 07/16/22 08:22 30 07/16/22 08:21 30 07/16/22 08:00 30 07/16/22 07:30 07/16/22 07:00 07/16/22 06:30 07/16/22 06:00 07/16/22 05:30 07/16/22 05:00 07/16/22 04:30 07/16/22 04:02 30 07/16/22 04:00 30 07/16/22 03:40 30 07/16/22 03:30 07/16/22 03:00 07/16/22 02:30 07/16/22 02:00 07/16/22 01:30 07/16/22 01:00 07/16/22 00:30 07/16/22 00:20 07/16/22 00:10 40 07/16/22 00:00 40 07/15/22 23:50 07/15/22 23:40 07/15/22 23:30 07/15/22 23:20 07/15/22 23:10 07/15/22 23:00 07/15/22 22:50 07/15/22 22:40 07/15/22 22:30 07/15/22 22:00 07/15/22 21:55 40 07/15/22 21:50 07/15/22 21:40 07/15/22 21:30 07/15/22 21:20 07/15/22 21:11 100 07/15/22 21:10 40 07/15/22 21:00 100 07/15/22 20:50 07/15/22 20:42 07/15/22 20:15 07/15/22 20:00 07/15/22 18:30 07/15/22 17:14 07/15/22 15:23 07/15/22 13:40 07/15/22 13:03 Intake and Output 07/15/22 07/16/22 07/16/22 22:59 06:59 14:59 Intake Total 5.619 1479.694 74.266 Output Total 0 100 Balance 5.619 1479.694 -25.734 Intake: IV 1260 40 Lacosamide IV 100 mg In 50 Sodium Chloride 0.9% 50 ml @ 100 mls/hr IVPB BID [facility] Rx#:[id number] NS @ KVO 10 40 Sodium Chloride 0.9% 1, 1000 000 ml @ 999 mls/hr IV . Q1H1M ONE Rx#:[id number] levETIRAcetam IV 1,000 mg 100 In Saline 1 100ml.bag @ 400 mls/hr IVPB ONCE STA Rx#:[id number] levETIRAcetam IV 500 mg 100 In Sodium Chloride 0.9% 100 ml @ 400 mls/hr IVPB Q12H [facility] Rx#:[id number] Intake, IV Titration 5.619 219.694 34.266 Amount Midazolam HCl 50 mg In 80.417 33.25 Sodium Chloride 0.9% 40 ml @ 5 MG/HR 5 mls/hr IV .Q10H [facility] Rx#:[id number] propofoL 1,000 mg In 5.619 139.277 1.016 Empty Bag 1 bag @ 15 MCG/ KG/MIN 5.715 mls/hr IV . [id number] [facility] Rx#:[id number] Output: Gastric Drainage 100 Urine 0 0 Other: Weight 63.503 kg 75 kg 75 kg ABP, PAP, CO, CI - Last 8 Hours Arterial Blood Pressure 131/52 Arterial Blood Pressure 130/51 Arterial Blood Pressure 155/58 Arterial Blood Pressure 152/57 Arterial Blood Pressure 140/54 Arterial Blood Pressure 118/46 Arterial Blood Pressure 123/49 Arterial Blood Pressure 113/46 Arterial Blood Pressure 109/47 Arterial Blood Pressure 109/45 Arterial Blood Pressure 114/68 Arterial Blood Pressure 118/52 Arterial Blood Pressure 123/55 Arterial Blood Pressure 110/51 Arterial Blood Pressure 123/94 Physical Exam: Revealed a 52-year-old female in no distress, sedated, intubated, mechanically ventilated, on Versed and she is also on propofol which I plan to discontinue shortly. Head: Atraumatic, normocephalic. HEENT:[Neck is supple.] [No neck masses.] [No thyromegaly.] [No JVD.] Chest: [Clear throughout, no crackles, no rhonchi, no wheezes.] Cardiac Exam: [Normal S1 and S2, no S3 gallop, no murmur.] Abdomen: [Soft, nontender, no megaly, no rebound, no guarding, normal bowel sounds.] Extremities: [No clubbing, no edema, no cyanosis.] Neurological Exam:could not assess, patient is sedated presently on propofol and Versed. Psychiatric: Could not assess. Results - Laboratory Findings CBC and BMP: 07/16/22 05:05 07/16/22 05:05 ABG ABG pH 7.60 (7.35-7.45) H* 07/16/22 05:45 ABG pCO2 24 mmHg (35-45) L 07/16/22 05:45 ABG pO2 165 mmHg (83-108) H 07/16/22 05:45 ABG O2 Saturation 100.0 % (94-97) H 07/16/22 05:45 PT/INR, D-dimer PT 10.3 sec (9.0-12.0) 07/15/22 12:26 INR 1.0 (<1.2) 07/15/22 12:26 Abnormal lab findings: Abnormal Labs 07/15/22 07/15/22 07/15/22 12:26 12:26 12:26 WBC RBC Hgb Hct Neutrophils # APTT 21.5 L ABG pH ABG pCO2 ABG pO2 ABG Total CO2 ABG O2 Saturation Sodium Chloride BUN 32 H Creatinine 9.47 H* Glucose 288 H POC Glucose (mg/dL) Plasma Lactic Acid Shen Urine Appearance Cloudy H Urine Protein 3+ H Urine Glucose (UA) 2+ H Urine Blood Trace H Ur Leukocyte Esterase Large H Urine RBC 9 H Urine WBC 84 H Urine Bacteria Occasional H Urine Mucus Rare H Valproic Acid 127.1 H* 07/15/22 07/15/22 07/15/22 12:26 15:26 18:00 WBC RBC Hgb Hct Neutrophils # APTT ABG pH ABG pCO2 ABG pO2 ABG Total CO2 ABG O2 Saturation Sodium Chloride BUN Creatinine Glucose POC Glucose (mg/dL) Plasma Lactic Acid Shen 3.0 H* 3.8 H* 2.4 H* Urine Appearance Urine Protein Urine Glucose (UA) Urine Blood Ur Leukocyte Esterase Urine RBC Urine WBC Urine Bacteria Urine Mucus Valproic Acid 07/15/22 07/15/22 07/15/22 20:43 21:10 21:10 WBC 13.8 H RBC Hgb Hct Neutrophils # 11.3 H APTT ABG pH ABG pCO2 ABG pO2 ABG Total CO2 ABG O2 Saturation Sodium 146 H Chloride 108 H BUN 32 H Creatinine 8.86 H* Glucose 124 H POC Glucose (mg/dL) 121 H Plasma Lactic Acid Shen Urine Appearance Urine Protein Urine Glucose (UA) Urine Blood Ur Leukocyte Esterase Urine RBC Urine WBC Urine Bacteria Urine Mucus Valproic Acid 07/15/22 07/16/22 07/16/22 21:45 05:05 05:05 WBC RBC 3.07 L Hgb 8.7 L D Hct 26.0 L Neutrophils # APTT ABG pH ABG pCO2 ABG pO2 >400 H ABG Total CO2 26 H ABG O2 Saturation 99.2 H Sodium Chloride BUN 39 H Creatinine 9.96 H* Glucose 131 H POC Glucose (mg/dL) Plasma Lactic Acid Shen Urine Appearance Urine Protein Urine Glucose (UA) Urine Blood Ur Leukocyte Esterase Urine RBC Urine WBC Urine Bacteria Urine Mucus Valproic Acid 07/16/22 07/16/22 05:45 06:17 WBC RBC Hgb Hct Neutrophils # APTT ABG pH 7.60 H* ABG pCO2 24 L ABG pO2 165 H ABG Total CO2 25 H ABG O2 Saturation 100.0 H Sodium Chloride BUN Creatinine Glucose POC Glucose (mg/dL) 134 H Plasma Lactic Acid Shen Urine Appearance Urine Protein Urine Glucose (UA) Urine Blood Ur Leukocyte Esterase Urine RBC Urine WBC Urine Bacteria Urine Mucus Valproic Acid - Diagnostic Findings Chest x-ray: image reviewed (chest x-ray showed no evidence of active disease.) Additional studies: CT of the brain results were reviewed. And the neurologist does not seem to be concerned about the findings noted by the radiologist. Assessment and Plan Assessment: impression: Status epilepticus. Medically refractory epilepsy. acute hypoxic respiratory failure secondary to status epilepticus,, unable to protect her airways history of CVA and residual left hemiparesis Type 2 diabetes. End-stage renal disease, on hemodialysis Benign essential hypertension dyslipidemia Degenerative joint disease Recommendation: Continue ventilatory support for now, We will discontinue propofol and Versed, awaken the patient and assess for possible weaning In the meantime continue seizure medications as ordered by the neurologist. Resume home meds. GI and DVT prophylaxis. We will likely wean and extubate in the next few hours. We'll continue seizure precautions discussedHer overall status with the neurologist on the case, and agrees withweaning trials and possibly extubate today We will continue to follow while in ICU. Time with Patient: Greater than 30
[2022-07-16] MEDS ORDERED: DIVALPROEX SPRINKLE 125 MG CAP.SPRINK PO STA (12:04)
[2022-07-16 12:20] LABS: Glucose,Whole Blood 111 mg/dL (70-110)
--- NOTE | 2022-07-16 12:22 | P.HPIM ---
History of Present Illness H&P Date: 07/16/22 Chief Complaint: altered mental status patient is a 52-year-old female with a known history ofhypertension, hyperlipidemia, diabetes type 2, history of seizure disorder and most recent seizures about a month ago, prior history of vagal nerve stimulator placed, diabetic peripheral neuropathy, ESRD on hemodialysis Monday and Monday and history of CVA/TIA and uses wheelchair, residual memory impairment, newly diagnosed obstructive sleep apnea, prior history of smoking and bipolar disorder and other medical problems was seen at dialysis clinic yesterday when she became unresponsive and was not following commands and answering questions. Patient was sent to ER for evaluation. Patient was also having nausea and episodes of vomiting. She was noted to have seizure-like activity. She did not get dialysis and was transferred to ED by EMS. On arrival to ER patient was awake alert and oriented x1 and was not holding any conversation with the staff. Previously she was admitted to the hospital from 07 03-07 06 for worsening seizure activity. Patient was started on Zonegran along with Keppra and Depakote. Patient was also having episodes of vomiting in the ER. As per her patient has been having vomiting for the past 1 week on and off. She was also seen at [facility] earlier this week for seizure-like activity. Patient was admitted to hospital with neurology consultation. Overnight a team was called for assessment and possible status epilepticus. Patient was not following commands or make eye contact. Patient was also having episodes of emesis and concern for possible aspiration. Patient was transferred to MICU and intubated for airway protection. On admission EKG showed sinus rhythm with moderate intraventricular conduction delays. CT head showed hypodensity within the brainstem and within the left basal ganglia could be ischemic changes of intermediate age. Consider follow-up with MRI. Chest x-ray showed no acute cardiopulmonary process. Chest x-ray repeated last night showed no acute cardiopulmonary disease. Normal heart. No change. Laboratory data on admission WBC 6.7 hemoglobin 0.1 and platelets 218 Sodium 142 potassium 4.0 chloride 100 bicarb is 24 BUN 32 and creatinine 9.47 and lactic acid 3.0 and blood sugar was 288 on admission proBNP 2780 Troponin x1 negative TSH 0.708 Urinalysis showed cloudy with 3+ protein large leukocyte esterase and elevated RBCs and WBCs. Valproic acid level was 127.1. Therapeutic level is 50-1 20 CTA head and neck showed irregular moderate plaque in the left carotid artery stenosis 754% at the origin.. Review of Systems Complete review of systems could not be obtained from the patient. ROS unobtainable: due to endotracheal tube Past Medical History Past Medical History: Chest Pain / Angina, CVA/TIA, Diabetes Mellitus, GERD/Reflux, Hyperlipidemia, Hypertension, Memory Impairment, Osteoarthritis (OA), Renal Disease, Seizure Disorder, Thyroid Disorder Additional Past Medical History / Comment(s): Last seizure approximately one month ago. Spouse states she used to have seizures 4X per week until she had vagal nerve stimulator placed, now has seizures approximately once a week to once a month. Dialysis MOWEFR. Neuropathy, left drop foot, only able to walk short distances, otherwise uses wheelchair. 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 Never diagnosed with Sleep Apnea but spouse states she does stop breathing through the night and he has to shake her to start breathing again. Varicose veins. History of Any Multi-Drug Resistant Organisms: None Reported Past Surgical History: Section, Tonsillectomy, Uterine Ablation Additional Past Surgical History / Comment(s): Left arm fistula, loop recorder, vagus nerve stimulator. Past Anesthesia/Blood Transfusion Reactions: Motion Sickness Additional Past Anesthesia/Blood Transfusion Reaction / Comment(s): Family hx unknown, pt adopted. Past Psychological History: Bipolar Smoking Status: Former smoker Past Alcohol Use History: None Reported Additional Past Alcohol Use History / Comment(s): Quit smoking in 2005. Past Drug Use History: None Reported - Past Family History Father Family Medical History: Unable to Obtain Additional Family Medical History / Comment(s): Pt adopted. Medications and Allergies Home Medications Medication Instructions Recorded Confirmed Type Clopidogrel [Plavix] 75 mg PO DAILY #30 tab 09/05/20 07/15/22 Rx Atorvastatin [Lipitor] 40 mg PO HS 03/23/21 07/15/22 History Dulaglutide [Trulicity] 3 mg SQ Q7D 03/23/21 07/15/22 History Sevelamer [Renvela] 800 mg PO BID-W/MEALS 03/23/21 07/15/22 History Vascepa 1gm 1 gm PO BID 03/23/21 07/15/22 History Calcium Acetate 667 mg PO TID-W/MEALS 02/25/22 07/15/22 History Metoprolol Tartrate [Lopressor] 25 mg PO BID 02/25/22 07/15/22 History Pantoprazole [Protonix] 40 mg PO DAILY 02/25/22 07/15/22 History Potassium Chloride ER [K-Dur 20] 20 meq PO BID 02/25/22 07/15/22 History levETIRAcetam [Keppra] 500 mg PO BID@0700,2100 02/25/22 07/15/22 History Divalproex ER [Depakote ER] 250 mg PO BID 30 Days #60 tab 02/28/22 07/15/22 Rx levETIRAcetam [Keppra] 500 mg PO MoWeFr@1600 30 Days #15 02/28/22 07/15/22 Rx tab Sevelamer [Renvela] 1,600 mg PO W/SUPPER 04/29/22 07/15/22 History Lacosamide [Vimpat] See Taper PO DIRECTED 21 Days 07/06/22 07/15/22 Rx #49 tab Zonisamide [Zonegran] 100 mg PO DAILY 30 Days #30 cap 07/06/22 07/15/22 Rx Divalproex [Depakote] 500 mg PO Q8H 07/15/22 07/15/22 History Allergies Allergy/AdvReac Type Severity Reaction Status Date / Time Penicillins Allergy Itching Verified 07/15/22 13:57 Physical Exam Vitals: Vital Signs Temp Pulse Pulse Resp BP BP Pulse Ox 07/16/22 10:00 72 14 131/78 100 07/16/22 09:30 71 14 100 07/16/22 09:00 73 14 131/78 100 07/16/22 08:30 73 14 100 07/16/22 08:22 07/16/22 08:21 07/16/22 08:00 96.2 F L 74 14 100 07/16/22 07:30 75 14 99 07/16/22 07:00 76 14 98 07/16/22 06:30 75 14 99 07/16/22 06:00 77 20 100 07/16/22 05:30 77 20 99 07/16/22 05:00 77 20 98 07/16/22 04:30 79 20 98 07/16/22 04:02 07/16/22 04:00 97.5 F L 80 20 98 07/16/22 03:40 07/16/22 03:30 83 20 99 07/16/22 03:00 79 20 100 07/16/22 02:30 80 20 100 07/16/22 02:00 82 20 100 07/16/22 01:30 83 20 100 07/16/22 01:00 83 20 100 07/16/22 00:30 93 20 200/93 100 07/16/22 00:20 89 20 100 07/16/22 00:10 97.8 F 95 20 100 07/16/22 00:00 83 20 99 07/15/22 23:50 85 20 99 07/15/22 23:40 87 20 99 07/15/22 23:30 87 20 99 07/15/22 23:20 89 20 99 07/15/22 23:10 90 20 99 07/15/22 23:00 91 20 100 07/15/22 22:50 90 20 100 07/15/22 22:40 20 100 07/15/22 22:30 98.1 F 110 H 20 200/93 94 L 07/15/22 22:00 98 07/15/22 21:55 07/15/22 21:50 89 20 99 07/15/22 21:40 90 20 99 07/15/22 21:30 90 20 99 07/15/22 21:20 95 20 100 07/15/22 21:11 07/15/22 21:10 20 99 07/15/22 21:00 98.1 F 105 H 20 99 07/15/22 20:50 93 0 L 99 07/15/22 20:42 19 07/15/22 20:15 229/96 07/15/22 20:00 98.4 F 92 19 164/75 98 07/15/22 18:30 98.8 F 92 16 168/77 92 L 07/15/22 17:14 98.6 F 93 16 115/60 96 07/15/22 15:23 95.8 F L 86 18 103/59 94 L 07/15/22 13:40 95.4 F L 89 16 160/83 97 07/15/22 13:03 87 16 168/57 100 07/15/22 11:22 85 16 167/86 96 FiO2 07/16/22 10:00 07/16/22 09:30 07/16/22 09:00 07/16/22 08:30 07/16/22 08:22 30 07/16/22 08:21 30 07/16/22 08:00 30 07/16/22 07:30 07/16/22 07:00 07/16/22 06:30 07/16/22 06:00 07/16/22 05:30 07/16/22 05:00 07/16/22 04:30 07/16/22 04:02 30 07/16/22 04:00 30 07/16/22 03:40 30 07/16/22 03:30 07/16/22 03:00 07/16/22 02:30 07/16/22 02:00 07/16/22 01:30 07/16/22 01:00 07/16/22 00:30 07/16/22 00:20 07/16/22 00:10 40 07/16/22 00:00 40 07/15/22 23:50 07/15/22 23:40 07/15/22 23:30 07/15/22 23:20 07/15/22 23:10 07/15/22 23:00 07/15/22 22:50 07/15/22 22:40 07/15/22 22:30 07/15/22 22:00 07/15/22 21:55 40 07/15/22 21:50 07/15/22 21:40 07/15/22 21:30 07/15/22 21:20 07/15/22 21:11 100 07/15/22 21:10 40 07/15/22 21:00 100 07/15/22 20:50 07/15/22 20:42 07/15/22 20:15 07/15/22 20:00 07/15/22 18:30 07/15/22 17:14 07/15/22 15:23 07/15/22 13:40 07/15/22 13:03 07/15/22 11:22 Intake and Output 07/15/22 07/16/22 07/16/22 22:59 06:59 14:59 Intake Total 5.619 1479.694 74.266 Output Total 0 100 Balance 5.619 1479.694 -25.734 Intake: IV 1260 40 Lacosamide IV 100 mg In 50 Sodium Chloride 0.9% 50 ml @ 100 mls/hr IVPB BID [facility] Rx#:[id number] NS @ KVO 10 40 Sodium Chloride 0.9% 1, 1000 000 ml @ 999 mls/hr IV . Q1H1M ONE Rx#:[id number] levETIRAcetam IV 1,000 mg 100 In Saline 1 100ml.bag @ 400 mls/hr IVPB ONCE STA Rx#:[id number] levETIRAcetam IV 500 mg 100 In Sodium Chloride 0.9% 100 ml @ 400 mls/hr IVPB Q12H [facility] Rx#:[id number] Intake, IV Titration 5.619 219.694 34.266 Amount Midazolam HCl 50 mg In 80.417 33.25 Sodium Chloride 0.9% 40 ml @ 5 MG/HR 5 mls/hr IV .Q10H [facility] Rx#:[id number] propofoL 1,000 mg In 5.619 139.277 1.016 Empty Bag 1 bag @ 15 MCG/ KG/MIN 5.715 mls/hr IV . [id number] [facility] Rx#:[id number] Output: Gastric Drainage 100 Urine 0 0 Other: Weight 63.503 kg 75 kg ABP, PAP, CO, CI - Last 8 Hours Arterial Blood Pressure 155/58 Arterial Blood Pressure 152/57 Arterial Blood Pressure 140/54 Arterial Blood Pressure 118/46 Arterial Blood Pressure 123/49 Arterial Blood Pressure 113/46 Arterial Blood Pressure 109/47 Arterial Blood Pressure 109/45 Arterial Blood Pressure 114/68 Arterial Blood Pressure 118/52 Arterial Blood Pressure 123/55 Arterial Blood Pressure 110/51 Arterial Blood Pressure 123/94 Arterial Blood Pressure 110/52 Arterial Blood Pressure 135/57 PHYSICAL EXAMINATION: Patient is currently sedated and intubated... HEENT: Normocephalic. Neck is supple. Pupils reactive. Nostrils clear. Oral cavity is moist. Neck reveals no JVD, carotid bruits, or thyromegaly. CHEST EXAMINATION: Trachea is central. Symmetrical expansion. Bibasilar diminished sounds. No wheezing or crackles. Lung reich clear to auscultation and percussion. CARDIAC: Normal S1, S2 with no gallops. No murmurs ABDOMEN: Soft. Bowel sounds present. No organomegaly. No abdominal bruits. Extremities: Trace edema. No clubbing or cyanosis Neurologically patient is sedated intubated. No gross focal deficits noted. Left foot drop. Skin: No rash or skin lesions. Psychiatric: Could not be assessed at this time. Musculoskeletal: No joint swelling or deformity. Results CBC & Chem 7: 07/16/22 05:05 07/16/22 05:05 Labs: Abnormal Lab Results - Last 24 Hours (Table) 07/15/22 07/15/22 07/15/22 Range/Units 12: 12: 12: WBC (3.8-10.6) k/uL RBC (3.80-5.40) m/uL Hgb (11.4-16.0) gm/dL Hct (34.0-46.0) % Neutrophils # (1.3-7.7) k/uL APTT 21.5 L (22.0-30.0) sec ABG pH (7.35-7.45) ABG pCO2 (35-45) mmHg ABG pO2 (83-108) mmHg ABG Total CO2 (19-24) mmol/L ABG O2 Saturation (94-97) % Sodium (137-145) mmol/L Chloride (98-107) mmol/L BUN 32 H (7-17) mg/dL Creatinine 9.47 H* (0.52-1.04) mg/dL Glucose 288 H (74-99) mg/dL POC Glucose (mg/dL) (70-110) mg/dL Plasma Lactic Acid Shen (0.7-2.0) mmol/L Urine Appearance Cloudy H (Clear) Urine Protein 3+ H (Negative) Urine Glucose (UA) 2+ H (Negative) Urine Blood Trace H (Negative) Ur Leukocyte Esterase Large H (Negative) Urine RBC 9 H (0-5) /hpf Urine WBC 84 H (0-5) /hpf Urine Bacteria Occasional H (None) /hpf Urine Mucus Rare H (None) /hpf Valproic Acid 127.1 H* ug/mL 07/15/22 07/15/22 07/15/22 Range/Units 12: 15:26 18:00 WBC (3.8-10.6) k/uL RBC (3.80-5.40) m/uL Hgb (11.4-16.0) gm/dL Hct (34.0-46.0) % Neutrophils # (1.3-7.7) k/uL APTT (22.0-30.0) sec ABG pH (7.35-7.45) ABG pCO2 (35-45) mmHg ABG pO2 (83-108) mmHg ABG Total CO2 (19-24) mmol/L ABG O2 Saturation (94-97) % Sodium (137-145) mmol/L Chloride (98-107) mmol/L BUN (7-17) mg/dL Creatinine (0.52-1.04) mg/dL Glucose (74-99) mg/dL POC Glucose (mg/dL) (70-110) mg/dL Plasma Lactic Acid Shen 3.0 H* 3.8 H* 2.4 H* (0.7-2.0) mmol/L Urine Appearance (Clear) Urine Protein (Negative) Urine Glucose (UA) (Negative) Urine Blood (Negative) Ur Leukocyte Esterase (Negative) Urine RBC (0-5) /hpf Urine WBC (0-5) /hpf Urine Bacteria (None) /hpf Urine Mucus (None) /hpf Valproic Acid ug/mL 07/15/22 07/15/22 07/15/22 Range/Units 20:43 21:10 21:10 WBC 13.8 H (3.8-10.6) k/uL RBC (3.80-5.40) m/uL Hgb (11.4-16.0) gm/dL Hct (34.0-46.0) % Neutrophils # 11.3 H (1.3-7.7) k/uL APTT (22.0-30.0) sec ABG pH (7.35-7.45) ABG pCO2 (35-45) mmHg ABG pO2 (83-108) mmHg ABG Total CO2 (19-24) mmol/L ABG O2 Saturation (94-97) % Sodium 146 H (137-145) mmol/L Chloride 108 H (98-107) mmol/L BUN 32 H (7-17) mg/dL Creatinine 8.86 H* (0.52-1.04) mg/dL Glucose 124 H (74-99) mg/dL POC Glucose (mg/dL) 121 H (70-110) mg/dL Plasma Lactic Acid Shen (0.7-2.0) mmol/L Urine Appearance (Clear) Urine Protein (Negative) Urine Glucose (UA) (Negative) Urine Blood (Negative) Ur Leukocyte Esterase (Negative) Urine RBC (0-5) /hpf Urine WBC (0-5) /hpf Urine Bacteria (None) /hpf Urine Mucus (None) /hpf Valproic Acid ug/mL 07/15/22 07/16/22 07/16/22 Range/Units 21:45 05:05 05:05 WBC (3.8-10.6) k/uL RBC 3.07 L (3.80-5.40) m/uL Hgb 8.7 L D (11.4-16.0) gm/dL Hct 26.0 L (34.0-46.0) % Neutrophils # (1.3-7.7) k/uL APTT (22.0-30.0) sec ABG pH (7.35-7.45) ABG pCO2 (35-45) mmHg ABG pO2 >400 H (83-108) mmHg ABG Total CO2 26 H (19-24) mmol/L ABG O2 Saturation 99.2 H (94-97) % Sodium (137-145) mmol/L Chloride (98-107) mmol/L BUN 39 H (7-17) mg/dL Creatinine 9.96 H* (0.52-1.04) mg/dL Glucose 131 H (74-99) mg/dL POC Glucose (mg/dL) (70-110) mg/dL Plasma Lactic Acid Shen (0.7-2.0) mmol/L Urine Appearance (Clear) Urine Protein (Negative) Urine Glucose (UA) (Negative) Urine Blood (Negative) Ur Leukocyte Esterase (Negative) Urine RBC (0-5) /hpf Urine WBC (0-5) /hpf Urine Bacteria (None) /hpf Urine Mucus (None) /hpf Valproic Acid ug/mL 07/16/22 07/16/22 Range/Units 05:45 06:17 WBC (3.8-10.6) k/uL RBC (3.80-5.40) m/uL Hgb (11.4-16.0) gm/dL Hct (34.0-46.0) % Neutrophils # (1.3-7.7) k/uL APTT (22.0-30.0) sec ABG pH 7.60 H* (7.35-7.45) ABG pCO2 24 L (35-45) mmHg ABG pO2 165 H (83-108) mmHg ABG Total CO2 25 H (19-24) mmol/L ABG O2 Saturation 100.0 H (94-97) % Sodium (137-145) mmol/L Chloride (98-107) mmol/L BUN (7-17) mg/dL Creatinine (0.52-1.04) mg/dL Glucose (74-99) mg/dL POC Glucose (mg/dL) 134 H (70-110) mg/dL Plasma Lactic Acid Shen (0.7-2.0) mmol/L Urine Appearance (Clear) Urine Protein (Negative) Urine Glucose (UA) (Negative) Urine Blood (Negative) Ur Leukocyte Esterase (Negative) Urine RBC (0-5) /hpf Urine WBC (0-5) /hpf Urine Bacteria (None) /hpf Urine Mucus (None) /hpf Valproic Acid ug/mL Microbiology - Last 24 Hours (Table) 07/16/22 00:17 Sputum Culture - Preliminary Sputum 07/15/22 12:26 Urine Culture - Preliminary Urine,Catheterized Thrombosis Risk Factor Assmnt - DVT/VTE Prophylaxis DVT/VTE Prophylaxis: Pharmacologic Prophylaxis ordered - Choose All That Apply Any of the Below Risk Factors Present?: Yes Each Factor Represents 1 point: Age 41-60 years Other congenital or acquired thrombophilia - If yes, enter type in comment: (ANGELICA, patient on mechanical ventilator) Thrombosis Risk Factor Assessment Total Risk Factor Score: 1 Thrombosis Risk Factor Assessment Level: Low Risk Assessment and Plan Assessment: Altered mental status likely due to e status epilepticus. Patient was intubated for airway protection. History of refractory epilepsy with previous multiple admissions due to seizures. left ICA 75%stenosis at the origin as per CTA neck. hypodensity in the brainstem and left basal ganglia were related to previous CVA ESRD on hemodialysisMondmonday and Monday. History of CVA with left hemiparesis Diabetes2 I would a peripheral neuropathy Memory impairment GERD Hypertension next hyperlipidemia Hypothyroidism bipolar disorder Primary history of smoking DVT prophylaxis with heparin subcu Plan: Patient is currently intubated and sedated for airway protection. Started back on Zonegran, Depakote and Keppra as per neurology recommendation s.Zonegran dose increased to 100 mg twice a day,Keppra additional dose 500 mg post dialysis. Patient will be continued on secondary stroke prophylaxis Plavix and Lipitor, Neurology is on board. Nephrology was consulted for hemodialysis. Continue with home medications and insulin sliding scale for better blood sugar control. Follow-up closely. Prognosis is guarded with multiple medical problems and comorbid conditions. Time with Patient: Greater than 30
--- NOTE | 2022-07-16 12:49 | US ---
EXAMINATION TYPE: US carotid duplex BILAT DATE OF EXAM: 07/16/2022 COMPARISON: CTA: 07/15/22 CLINICAL HISTORY: 52-year-old female carotid stenosis TECHNIQUE: Carotid duplex ultrasound examination. Indirect Doppler criteria was utilized. FINDINGS: Director Of Research notes:Left side limited due to patient position and pt being on a vent. EXAM MEASUREMENTS: RIGHT: Peak Systolic Velocity (PSV) cm/sec ----- Right CCA: 56.0 ----- Right ICA: 50.5 ----- Right ECA: 103.2 ICA/CCA ratio: 0.9 RIGHT: End Diastole cm/sec ----- Right CCA: 7.7 ----- Right ICA: 14.7 ----- Right ECA: 0.0 LEFT: Peak Systolic Velocity (PSV) cm/sec ----- Left CCA: 88.9 ----- Left ICA: 62.7 ----- Left ECA: Not vis. ICA/CCA ratio: 0.7 LEFT: End Diastole cm/sec ----- Left CCA: 10.9 ----- Left ICA: 8.6 ----- Left ECA: Not vis VERTEBRALS (direction of flow): Right Vertebral: Antegrade Left Vertebral: Not vis Rhythm: Normal [employer] NOTES: Plaque seen in bilateral bulbs. Left side limited due to pt being on a vent. IMPRESSION: 1. No hemodynamically significant internal carotid artery stenosis on either side. 2. Limited overall assessment of the left side including visualization of the left ECA and left verte bral artery due to patient's condition. Criteria for Assigning % of Stenosis / Diameter reduction (Estimation based on the indirect measurements of the internal carotid artery velocities (ICA PSV). 1. Normal (no stenosis)=ICA PSV < 125 cm/s: ratio < 2.0: ICA EDV<40 cm/s. 2. Less than 50% stenosis=ICA PSV < 125 cm/s: ratio < 2.0: ICA EDV<40 cm/s. 3. 50 to 69% stenosis=ICA PSV of 125 to 230 cm/s: ration 2.0 ? 4.0: ICA EDV 40-100 cm/s. 4. Greater than 70% stenosis to near occlusion= ICA PSV > 230 cm/s: ratio > 4.0: ICA EDV > 100 cm/s. 5. Near occlusion= ICA PSV velocities may be low or undetectable: variable ratio and ICA EDV. 6. Total occlusion=unable to detect flow.
[2022-07-16 13:22] LABS: Levetiracetam (Keppra) 7.9 ug/mL (3.0-60.0)
--- NOTE | 2022-07-16 13:30 | P.NPCON ---
History of Present Illness - Reason for Consult Consult date: 07/16/22 end stage renal disease - Chief Complaint Altered mental status - History of Present Illness ESRD on hemodialysis Monday schedule via left upper arm aVF, admitted to the hospital with encephalopathy. History of seizure disorders on antiepileptics. Currently intubated in ICU, ongoing dialysis. Missed dialysis on Monday. No major changes. Covid 19 negative. Valproic acid level was 127. Review of Systems Constitutional: Reports as per HPI Past Medical History Past Medical History: Chest Pain / Angina, CVA/TIA, Diabetes Mellitus, GERD/Reflux, Hyperlipidemia, Hypertension, Memory Impairment, Osteoarthritis (OA), Renal Disease, Seizure Disorder, Thyroid Disorder Additional Past Medical History / Comment(s): Last seizure approximately one month ago. Spouse states she used to have seizures 4X per week until she had vagal nerve stimulator placed, now has seizures approximately once a week to once a month. Dialysis MOWEFR. Neuropathy, left drop foot, only able to walk short distances, otherwise uses wheelchair. 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 Never diagnosed with Sleep Apnea but spouse states she does stop breathing through the night and he has to shake her to start breathing again. Varicose veins. History of Any Multi-Drug Resistant Organisms: None Reported Past Surgical History: Section, Tonsillectomy, Uterine Ablation Additional Past Surgical History / Comment(s): Left arm fistula, loop recorder, vagus nerve stimulator. Past Anesthesia/Blood Transfusion Reactions: Motion Sickness Additional Past Anesthesia/Blood Transfusion Reaction / Comment(s): Family hx unknown, pt adopted. Past Psychological History: Bipolar Smoking Status: Former smoker Past Alcohol Use History: None Reported Additional Past Alcohol Use History / Comment(s): Quit smoking in 2005. Past Drug Use History: None Reported - Past Family History Father Family Medical History: Unable to Obtain Additional Family Medical History / Comment(s): Pt adopted. Medications and Allergies Home Medications Medication Instructions Recorded Confirmed Type Clopidogrel [Plavix] 75 mg PO DAILY #30 tab 09/05/20 07/15/22 Rx Atorvastatin [Lipitor] 40 mg PO HS 03/23/21 07/15/22 History Dulaglutide [Trulicity] 3 mg SQ Q7D 03/23/21 07/15/22 History Sevelamer [Renvela] 800 mg PO BID-W/MEALS 03/23/21 07/15/22 History Vascepa 1gm 1 gm PO BID 03/23/21 07/15/22 History Calcium Acetate 667 mg PO TID-W/MEALS 02/25/22 07/15/22 History Metoprolol Tartrate [Lopressor] 25 mg PO BID 02/25/22 07/15/22 History Pantoprazole [Protonix] 40 mg PO DAILY 02/25/22 07/15/22 History Potassium Chloride ER [K-Dur 20] 20 meq PO BID 02/25/22 07/15/22 History levETIRAcetam [Keppra] 500 mg PO BID@0700,2100 02/25/22 07/15/22 History Divalproex ER [Depakote ER] 250 mg PO BID 30 Days #60 tab 02/28/22 07/15/22 Rx levETIRAcetam [Keppra] 500 mg PO MoWeFr@1600 30 Days #15 02/28/22 07/15/22 Rx tab Sevelamer [Renvela] 1,600 mg PO W/SUPPER 04/29/22 07/15/22 History Lacosamide [Vimpat] See Taper PO DIRECTED 21 Days 07/06/22 07/15/22 Rx #49 tab Zonisamide [Zonegran] 100 mg PO DAILY 30 Days #30 cap 07/06/22 07/15/22 Rx Divalproex [Depakote] 500 mg PO Q8H 07/15/22 07/15/22 History Allergies Allergy/AdvReac Type Severity Reaction Status Date / Time Penicillins Allergy Itching Verified 07/15/22 13:57 Physical Exam Vitals: Vital Signs Temp Pulse Pulse Resp BP BP Pulse Ox 07/16/22 11:31 07/16/22 11:00 71 14 100 07/16/22 10:30 71 14 100 07/16/22 10:00 72 14 131/78 100 07/16/22 09:30 71 14 100 07/16/22 09:00 73 14 131/78 100 07/16/22 08:30 73 14 100 07/16/22 08:22 07/16/22 08:21 07/16/22 08:00 96.2 F L 74 14 100 07/16/22 07:30 75 14 99 07/16/22 07:00 76 14 98 07/16/22 06:30 75 14 99 07/16/22 06:00 77 20 100 07/16/22 05:30 77 20 99 07/16/22 05:00 77 20 98 07/16/22 04:30 79 20 98 07/16/22 04:02 07/16/22 04:00 97.5 F L 80 20 98 07/16/22 03:40 07/16/22 03:30 83 20 99 07/16/22 03:00 79 20 100 07/16/22 02:30 80 20 100 07/16/22 02:00 82 20 100 07/16/22 01:30 83 20 100 07/16/22 01:00 83 20 100 07/16/22 00:30 93 20 200/93 100 07/16/22 00:20 89 20 100 07/16/22 00:10 97.8 F 95 20 100 07/16/22 00:00 83 20 99 07/15/22 23:50 85 20 99 07/15/22 23:40 87 20 99 07/15/22 23:30 87 20 99 07/15/22 23:20 89 20 99 07/15/22 23:10 90 20 99 07/15/22 23:00 91 20 100 07/15/22 22:50 90 20 100 07/15/22 22:40 20 100 07/15/22 22:30 98.1 F 110 H 20 200/93 94 L 07/15/22 22:00 98 07/15/22 21:55 07/15/22 21:50 89 20 99 07/15/22 21:40 90 20 99 07/15/22 21:30 90 20 99 07/15/22 21:20 95 20 100 07/15/22 21:11 07/15/22 21:10 20 99 07/15/22 21:00 98.1 F 105 H 20 99 07/15/22 20:50 93 0 L 99 07/15/22 20:42 19 07/15/22 20:15 229/96 07/15/22 20:00 98.4 F 92 19 164/75 98 07/15/22 18:30 98.8 F 92 16 168/77 92 L 07/15/22 17:14 98.6 F 93 16 115/60 96 07/15/22 15:23 95.8 F L 86 18 103/59 94 L 07/15/22 13:40 95.4 F L 89 16 160/83 97 FiO2 07/16/22 11:31 30 07/16/22 11:00 07/16/22 10:30 07/16/22 10:00 07/16/22 09:30 07/16/22 09:00 07/16/22 08:30 07/16/22 08:22 30 07/16/22 08:21 30 07/16/22 08:00 30 07/16/22 07:30 07/16/22 07:00 07/16/22 06:30 07/16/22 06:00 07/16/22 05:30 07/16/22 05:00 07/16/22 04:30 07/16/22 04:02 30 07/16/22 04:00 30 07/16/22 03:40 30 07/16/22 03:30 07/16/22 03:00 07/16/22 02:30 07/16/22 02:00 07/16/22 01:30 07/16/22 01:00 07/16/22 00:30 07/16/22 00:20 07/16/22 00:10 40 07/16/22 00:00 40 07/15/22 23:50 07/15/22 23:40 07/15/22 23:30 07/15/22 23:20 07/15/22 23:10 07/15/22 23:00 07/15/22 22:50 07/15/22 22:40 07/15/22 22:30 07/15/22 22:00 07/15/22 21:55 40 07/15/22 21:50 07/15/22 21:40 07/15/22 21:30 07/15/22 21:20 07/15/22 21:11 100 07/15/22 21:10 40 07/15/22 21:00 100 07/15/22 20:50 07/15/22 20:42 07/15/22 20:15 07/15/22 20:00 07/15/22 18:30 07/15/22 17:14 07/15/22 15:23 07/15/22 13:40 Intake and Output 07/15/22 07/16/22 07/16/22 22:59 06:59 14:59 Intake Total 5.619 1479.694 154.266 Output Total 0 100 Balance 5.619 1479.694 54.266 Intake: IV 1260 120 Lacosamide IV 100 mg In 50 50 Sodium Chloride 0.9% 50 ml @ 100 mls/hr IVPB BID [facility] Rx#:[id number] NS @ KVO 10 70 Sodium Chloride 0.9% 1, 1000 000 ml @ 999 mls/hr IV . Q1H1M ONE Rx#:[id number] levETIRAcetam IV 1,000 mg 100 In Saline 1 100ml.bag @ 400 mls/hr IVPB [facility] Rx#:[id number] levETIRAcetam IV 500 mg 100 In Sodium Chloride 0.9% 100 ml @ 400 mls/hr IVPB Q12H [facility] Rx#:[id number] Intake, IV Titration 5.619 219.694 34.266 Amount Midazolam HCl 50 mg In 80.417 33.25 Sodium Chloride 0.9% 40 ml @ 5 MG/HR 5 mls/hr IV .Q10H [facility] Rx#:[id number] propofoL 1,000 mg In 5.619 139.277 1.016 Empty Bag 1 bag @ 15 MCG/ KG/MIN 5.715 mls/hr IV . [id number] [facility] Rx#:[id number] Output: Gastric Drainage 100 Urine 0 0 Other: Weight 63.503 kg 75 kg 75 kg ABP, PAP, CO, CI - Last 8 Hours Arterial Blood Pressure 131/52 Arterial Blood Pressure 130/51 Arterial Blood Pressure 155/58 Arterial Blood Pressure 152/57 Arterial Blood Pressure 140/54 Arterial Blood Pressure 118/46 Arterial Blood Pressure 123/49 Arterial Blood Pressure 113/46 Arterial Blood Pressure 109/47 Arterial Blood Pressure 109/45 Arterial Blood Pressure 114/68 Arterial Blood Pressure 118/52 No acute distress S1-S2 heard Lungs clear Oral intubation Left upper arm aVF No edema Results - Lab Results Most recent lab results ABG pH 7.60 (7.35-7.45) H* 07/16/22 05:45 ABG pCO2 24 mmHg (35-45) L 07/16/22 05:45 ABG pO2 165 mmHg (83-108) H 07/16/22 05:45 ABG HCO3 24 mmol/L (21-25) 07/16/22 05:45 ABG O2 Saturation 100.0 % (94-97) H 07/16/22 05:45 Calcium 8.8 mg/dL (8.4-10.2) 07/16/22 05:05 Magnesium 2.1 mg/dL (1.6-2.3) 07/15/22 21:10 07/16/22 05:05 07/16/22 05:05 Assessment and Plan Assessment: #1 encephalopathy multifactorial suspect seizure disorder/valproic acid to xicity. #2 ESRD on hemodialysis, MWF schedule. #3 hypertension with ESRD #4 anemia with ESRD #5 metabolic bone disease Plan: #1 hemodialysis today, next treatment on Monday #2 ICU care.
[2022-07-16] MEDS: HEPARIN SODIUM,PORCINE/PF 5,000 UNIT/0.5 ML SYRINGE SQ SCH ×2 (16:03→23:41)
[2022-07-16] MEDS ORDERED: DIVALPROEX SPRINKLE 125 MG CAP.SPRINK PO SCH (16:30)
[2022-07-16] MEDS: DIVALPROEX SPRINKLE 125 MG CAP.SPRINK PO SCH ×3 (17:11→21:57)
[2022-07-16] MEDS: CLEVIDIPINE BUTYRATE 25 MG in EMPTY BAG 1 BAG IV SCH ×2 (18:55→23:37)
[2022-07-16] MEDS: ATORVASTATIN 40 MG TAB PO SCH (21:12)
[2022-07-16] MEDS: LACOSAMIDE IV 50 MG in SODIUM CHLORIDE 0.9% 50 ML IVPB SCH (21:52)
--- NOTE | 2022-07-16 22:56 | EEG ---
ELECTROENCEPHALOGRAM REPORT CLINICAL HISTORY: This is a 52-year-old woman with history of medical refractory epilepsy s/p VNS who presented because of breakthrough seizure and it seems that the patient had multiple seizures. As a result, the patient was intubated on a ventilator. The video EEG is obtained to evaluate for seizure epileptiform activity. RELEVANT MEDICATION: 1. IV Versed. 2. Propofol. 3. Keppra. 4. Vimpat. 5. Lacosamide. 6. Zonegran. EEG TYPE: A routine 21-channel EEG is performed with video using the 10/20 electrode placement system. DESCRIPTION: The patient is intubated on a ventilator. The background consists of burst suppression. During burst activity, there is moderate voltage of 6.5 to 7.5 hertz theta activity that is nonrhythmic and sometimes intermixed with delta activity. There is diffuse suppression lasting 1-2 seconds. There is no focal slowing. Interictal and ictal, there is diffuse sharp and slow waves concerning for primary generalized epilepsy. Otherwise, there is no seizure noted during this study. ACTIVATION PROCEDURE: Hyperventilation and photic stimulation are not performed because of her condition/cooperation. CLINICAL INTERPRETATION: This is an abnormal routine EEG. The background slowing is suggestive of moderate encephalopathy. The burst suppression is likely due to medication effect (Versed as well as propofol). The epileptiform discharge is likely on the basis of primary generalized epilepsy. There is no focal slowing or seizure detected during this study. Clinical correlation is recommended. JOYCE / DAYNA: [id number] / MTDD
[2022-07-17] MEDS: MIDAZOLAM HCL 50 MG in SODIUM CHLORIDE 0.9% 40 ML IV SCH ×3 (03:15→22:10)
[2022-07-17 05:49] LABS: ABG Base Excess 3.5 mmol/L; ABG HCO3 27 mmol/L (21-25); ABG Oxygen Saturation 99.3 % (94-97); ABG PCO2 36 mmHg (35-45); ABG PH 7.48 (7.35-7.45); ABG PO2 121 mmHg (83-108); ABG TCO2 28 mmol/L (19-24); Allen Test Performed? Yes
[2022-07-17 05:55] LABS: Basophils # (A) 0.1 k/uL (0-0.2); Basophils % (A) 1 %; Eosinophils # (A) 0.1 k/uL (0-0.7); Eosinophils % (A) 2 %; HCT 33.3 % (34.0-46.0); HGB 10.9 gm/dL (11.4-16.0); Lymphocytes # (A) 1.7 k/uL (1.0-4.8); Lymphocytes % (A) 30 %; MCH 28.6 pg (25.0-35.0); MCHC 32.8 g/dL (31.0-37.0); MCV 87.3 fL (80.0-100.0); Mean Platelet Volume 9.5; Monocytes # (A) 0.4 k/uL (0-1.0); Monocytes % (A) 6 %; Neutrophils # (A) 3.4 k/uL (1.3-7.7); Neutrophils % (A) 61 %; Platelet Count 203 k/uL (150-450); RBC 3.82 m/uL (3.80-5.40); RDW 14.2 % (11.5-15.5); WBC 5.6 k/uL (3.8-10.6)
[2022-07-17] MEDS: CLEVIDIPINE BUTYRATE 25 MG in EMPTY BAG 1 BAG IV SCH ×5 (06:01→20:47)
[2022-07-17 06:04] LABS: Calcium 9.5 mg/dL (8.4-10.2); Potassium 4.2 mmol/L (3.5-5.1)
[2022-07-17] MEDS: PANTOPRAZOLE 40 MG TABLET PO SCH (06:40)
[2022-07-17] MEDS: CALCIUM ACETATE 667 MG TAB PO SCH ×3 (06:40→16:40)
[2022-07-17] MEDS: SEVELAMER 800 MG TAB PO SCH ×3 (06:40→16:40)
[2022-07-17] MEDS: ZONISAMIDE 100 MG CAP PO SCH ×2 (08:18→21:37)
[2022-07-17] MEDS: CHLORHEXIDINE GLUCONATE 15 ML CUP MUCOUS MEM SCH (08:19)
[2022-07-17] MEDS: CLOPIDOGREL 75 MG TAB PO SCH (08:19)
[2022-07-17] MEDS: METOPROLOL TARTRATE 25 MG TAB PO SCH ×2 (08:19→21:37)
[2022-07-17] MEDS: DIVALPROEX SPRINKLE 125 MG CAP.SPRINK PO SCH ×5 (08:19→21:58)
[2022-07-17] MEDS: HEPARIN SODIUM,PORCINE/PF 5,000 UNIT/0.5 ML SYRINGE SQ SCH ×3 (08:20→23:17)
[2022-07-17] MEDS: POTASSIUM CHLORIDE ER 20 MEQ TAB.ER PO SCH ×2 (08:21→21:37)
[2022-07-17] MEDS: VASCEPA 1 GM PO SCH ×2 (08:21→21:34)
[2022-07-17] MEDS: LACOSAMIDE IV 50 MG in SODIUM CHLORIDE 0.9% 50 ML IVPB SCH (08:39)
--- NOTE | 2022-07-17 08:43 | XR ---
EXAMINATION TYPE: XR chest 1V portable DATE OF EXAM: 07/17/2022 Comparison: 07/16/2022 Clinical History: 52-year-old female Tube placement Findings: Left-sided pacemaker generator with similar lead extending to the left neck. Findings the left lower chest. NG tube courses below the diaphragm. ET tube satisfactory. Heart size. No consolidation or pleural effusion. Impression: Satisfactory ET and NG tubes. No acute process seen.
--- NOTE | 2022-07-17 10:59 | P.PN ---
Subjective Progress Note Date: 07/17/22 Principal diagnosis: status epilepticus this is a 52-year-old female with history of chronic seizure disorder, her seizures have been recently poorly controlled, patient follows up with the neurologist/Dr. Ohara for her seizures. Patient was brought into the ER yesterday with altered mental status, intermittent episodes of nausea and vomiting. Apparently the patient was dropped off yesterday at the dialysis unit/clinic, and when she got there patient became unresponsive, she did not notice to have any seizure-like activity. She was not speaking or answering any questions. Patient was unable to get her dialysis treatment, hence the patient was brought in by EMS to the ER yesterday. Apparently the patient was admitted, and shortly after she was admitted she had recurrent episodes of seizures,/status epilepticus.that a team responded to a call from the nurse on t he floor, patient was evaluated by the hospitalist, did not seem to follow any commands or make any eye contact. And at one point it was felt that the patient had status epilepticus. Apparently the patient had to be intubated to protect her airways, she was admitted to the ICU, and the plan was to consider transferring the patient to [facility] because of her status epilepticus and this was based upon the recommendation of the neurologist who was notified about this patient. Patient was placed on multiple medications for her seizures, and these will be noted below. Today I evaluated the patient while she is on mechanical ventilation, and I recommended that we start considering weaning and stopping her Versed which is 5 mg per hour, he is also on propofol at 20 mcg/kg/m, and will possibly extubate the patient. She was evaluated by the neurologist, and he feels that the seizures seem to be presently under control, and would be worthwhile giving the patient a weaning trial and possibly extubation. Her assist-control rate is 14 tidal volume 400 FiO2 30 PEEP of 5. ABG from previous settings was noted she had a pO2 of 165 pCO2 24 pH of 7.60, however since then the ventilator settings have been really adjusted. Her last seizure was reported at [address] of the brain last night showed subacute lacunar infarct, and suspicious brainstem lesion.however the neurologist evalu ated the CT of the brain, and did not feel that this is a worrisome finding.patient is getting IV Keppra loading dose, she is also getting Versed and propofol, and she was givenDepakote twice a day, patient is also receiving [id number] mg IV twice a day.in addition the patient is on zonisamide 100 mg by mouth twice a dayobviously the patient is maximized on all antiseizure medications, and I'm hoping her seizures are under control at present, will give the patient a trial of weaning and possibly extubationobviously no further plans to transfer the patient at this point. Reevaluated today on 07/17/22, patient remains in the ICU, intubated and mechanically ventilated, she is on assist control rate of 20, volume 400 FiO2 30% and PEEP of 5.ABG showed a pO2 of 121 pCO2 36 pH of 7.48. WBC count is 5.6 hemoglobin is 10.9. Electrolytes are basically unremarkable,BUN is 20 creatinine 7.22. Patient is a renal patient, and she is on hemodialysis. Patient is on propofol at 20 mcg/kg/m which I have discontinued this morning, he is also on clevidipine at 6 mg per hour. After stopping her propofol, the patient seems to be appropriate, she is following instructions, and I plan wean this patient today using pressure support with CPAP, or may use IMV with pressure support leading to CPAP. Overall the patient is doing better, and again I plan to wean and extubate, no seizure activities in the last 24 hours.chest x-ray is basically unremarkable today. Objective - Vital Signs Vital signs: Vital Signs Temp 98.8 F 07/17/22 04:00 Pulse 88 07/17/22 07:00 Resp 14 07/17/22 07:00 BP 123/69 07/17/22 07:00 Pulse Ox 100 07/17/22 07:00 FiO2 30 07/17/22 10:43 Intake & Output 07/16/22 07/17/22 07/17/22 18:59 06:59 18:59 Intake Total 267.771 388.513 124.346 Output Total 100 0 Balance 167.771 388.513 124.346 Weight 75 kg 75.8 kg Intake: IV 170 270 70 Lacosamide IV 100 mg In 50 50 50 Sodium Chloride 0.9% 50 ml @ 100 mls/hr IVPB BID [facility] Rx#:[id number] NS @ KVO 120 120 20 levETIRAcetam IV 500 mg 100 In Sodium Chloride 0.9% 100 ml @ 400 mls/hr IVPB Q12H [facility] Rx#:[id number] Intake, IV Titration 97.771 118.513 54.346 Amount Clevidipine Butyrate 25 0.1 82.934 27.2 mg In Empty Bag 1 bag @ 1 MG/HR 2 mls/hr IV .Q24H [facility] Rx#:[id number] Midazolam HCl 50 mg In 33.25 Sodium Chloride 0.9% 40 ml @ 5 MG/HR 5 mls/hr IV .Q10H [facility] Rx#:[id number] propofoL 1,000 mg In 64.421 35.579 27.146 Empty Bag 1 bag @ 15 MCG/ KG/MIN 5.715 mls/hr IV . [id number] [facility] Rx#:[id number] Output: Gastric Drainage 100 Urine 0 0 ABP, PAP, CO, CI - Last Documented Arterial Blood Pressure 141/53 - Exam Physical Exam: Revealed a 52-year-old female in no distress, sedated, intubated, mechanically ventilated, Head: Atraumatic, normocephalic. HEENT:[Neck is supple.] [No neck masses.] [No thyromegaly.] [No JVD.] Chest: [Clear throughout, no crackles, no rhonchi, no wheezes.] Cardiac Exam: [Normal S1 and S2, no S3 gallop, no murmur.] Abdomen: [Soft, nontender, no megaly, no rebound, no guarding, normal bowel sounds.] Extremities: [No clubbing, no edema, no cyanosis.] Neurological Exam:off propofol, patient is arousable, follows very simple instructions but seems to be generally weak. Psychiatric: Could not assess. - Labs CBC & Chem 7: 07/17/22 05:18 07/17/22 05:18 Labs: Abnormal Lab Results - Last 24 Hours (Table) 07/16/22 07/17/22 07/17/22 Range/Units 12:19 05:18 05:18 Hgb 10.9 L (11.4-16.0) gm/dL Hct 33.3 L (34.0-46.0) % ABG pH (7.35-7.45) ABG pO2 (83-108) mmHg ABG HCO3 (21-25) mmol/L ABG Total CO2 (19-24) mmol/L ABG O2 Saturation (94-97) % BUN 20 H (7-17) mg/dL Creatinine 7.22 H* (0.52-1.04) mg/dL Glucose 114 H (74-99) mg/dL POC Glucose (mg/dL) 111 H (70-110) mg/dL 07/17/22 Range/Units 05:46 Hgb (11.4-16.0) gm/dL Hct (34.0-46.0) % ABG pH 7.48 H (7.35-7.45) ABG pO2 121 H (83-108) mmHg ABG HCO3 27 H (21-25) mmol/L ABG Total CO2 28 H (19-24) mmol/L ABG O2 Saturation 99.3 H (94-97) % BUN (7-17) mg/dL Creatinine (0.52-1.04) mg/dL Glucose (74-99) mg/dL POC Glucose (mg/dL) (70-110) mg/dL Microbiology - Last 24 Hours (Table) 07/16/22 00:17 Gram Stain - Preliminary Sputum Sputum Culture - Preliminary 07/15/22 12:26 Urine Culture - Final Urine,Catheterized 07/15/22 14:15 Blood Culture - Preliminary Blood No Growth after 24 hours 07/15/22 14:00 Blood Culture - Preliminary Blood No Growth after 24 hours Assessment and Plan Assessment: impression: Status epilepticus. Medically refractory epilepsy. acute hypoxic respiratory failure secondary to status epilepticus,, unable to protect her airways history of CVA and residual left hemiparesis Type 2 diabetes. End-stage renal disease, on hemodialysis Benign essential hypertension dyslipidemia Degenerative joint disease Recommendation: Continue ventilatory support for now,will give the patient a trial of weaning using pressure support and CPAP. In the meantime we'll hold all narcotics and sedatives. resume seizure medications. GI and DVT prophylaxis. We'll continue seizure precautions continue GI and DVT prophylaxis. Continue seizure precautions. Trial of pressure support with IMV/CPAP, and possibly extubate today. Prognosis remains guarded. Critical care time is over 30 minutes We will continue to follow while in ICU. Time with Patient: Greater than 30
--- NOTE | 2022-07-17 12:05 | P.PN ---
Subjective Progress Note Date: 07/17/22 The patient is seen at bedside and is accompanied by her . Per nurse no further seizures. She continues to be intubated on ventilator and her sedation has been held and they are hoping to extubate patient today. Per nurse, she is following commands. Objective - Vital Signs Vital signs: Vital Signs Temp 98.7 F 07/17/22 08:00 Pulse 89 07/17/22 11:00 Resp 14 07/17/22 11:00 BP 139/68 07/17/22 11:00 Pulse Ox 98 07/17/22 11:00 FiO2 30 07/17/22 11:17 Intake & Output 07/16/22 07/17/22 07/17/22 18:59 06:59 18:59 Intake Total 267.771 388.513 144.346 Output Total 100 0 Balance 167.771 388.513 144.346 Weight 75 kg 75.8 kg Intake: IV 170 270 90 Lacosamide IV 100 mg In 50 50 50 Sodium Chloride 0.9% 50 ml @ 100 mls/hr IVPB BID NEELIMA Rx#:[id number] NS @ KVO 120 120 40 levETIRAcetam IV 500 mg 100 In Sodium Chloride 0.9% 100 ml @ 400 mls/hr IVPB Q12H NEELIMA Rx#:[id number] Intake, IV Titration 97.771 118.513 54.346 Amount Clevidipine Butyrate 25 0.1 82.934 27.2 mg In Empty Bag 1 bag @ 1 MG/HR 2 mls/hr IV .Q24H ENELIMA Rx#:[id number] Midazolam HCl 50 mg In 33.25 Sodium Chloride 0.9% 40 ml @ 5 MG/HR 5 mls/hr IV .Q10H NEELIMA Rx#:[id number] propofoL 1,000 mg In 64.421 35.579 27.146 Empty Bag 1 bag @ 15 MCG/ KG/MIN 5.715 mls/hr IV . [id number] NEELIMA Rx#:[id number] Output: Gastric Drainage 100 Urine 0 0 ABP, PAP, CO, CI - Last Documented Arterial Blood Pressure 150/56 - Exam GENERAL: The patient is lying in bed and does not appear in acute distress. LUNG: Intubated on ventilator. NEUROLOGICAL: IV Versed and IV Propofol are stopped. Higher mental function: The patient is drowsy and awakeable to voice. She is following simple commands. Cranial nerves: The pupils are round, pinpoint equal and reactive to light. No facial weakness. Intubated on ventilator. Is breathing over the vent. Motor: The strength is moving both hands above gravity. She is lifting right lower extremity above gravity. No movement noted in left lower foot (old per ). Decrease tone throughout. Normal bulk. Some of her workup during his hospital visit consisted of : TSH: 0.708 Initial Valproic acid is 127 and repeated is 73.8 Keppra level is 7.9 CT of the head which is reported as hypodensity within the brainstem and within the left basal ganglia could be ischemic changes of and determine age. Consider follow-up MRI. I personally reviewed CT head I felt the patient had the basal ganglia changes on her prior admission and it doesn't look acute or subacute in my opinion. Regarding the brainstem CT is not the best study for brainstem but she does have hypodensity but does not look like acute or subacute in my opinion as well. CT angiography of the head and neck was reported as irregular moderate plaque at the left carotid artery bifurcation and estimated 75% stenosis origin of the left ICA carotid artery. There is approximately similar 35% stenosis right internal carotid artery. No significant intercranial and angiographic abnormality. Carotid duplex is reported as no hemodynamically significant internal carotid artery stenosis on either side. Limited overall assessment on the left side including resolution of the left PASCUAL in the left vertebral artery due to the patient condition. Plasma lactic acid venous 3.0 on presentation and improved to 1.6. EEG on 07/16/2022 is abnormal. The burst suppression is likely due to medication effect (Versed and Propofol). The background slowing suggestive of moderate encephalopathy. 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 There is no focal slowing or seizure detected during the study. Urinalysis is possible suggestive of acute urinary tract infection Urine tox screen is valproic acids 127 and the normal supposed to be between 50- 120. Her level is slightly supratherapeutic - Labs CBC & Chem 7: 07/17/22 05:18 07/17/22 05:18 Labs: Abnormal Lab Results - Last 24 Hours (Table) 07/16/22 07/17/22 07/17/22 Range/Units 12:19 05:18 05:18 Hgb 10.9 L (11.4-16.0) gm/dL Hct 33.3 L (34.0-46.0) % ABG pH (7.35-7.45) ABG pO2 (83-108) mmHg ABG HCO3 (21-25) mmol/L ABG Total CO2 (19-24) mmol/L ABG O2 Saturation (94-97) % BUN 20 H (7-17) mg/dL Creatinine 7.22 H* (0.52-1.04) mg/dL Glucose 114 H (74-99) mg/dL POC Glucose (mg/dL) 111 H (70-110) mg/dL 07/17/22 Range/Units 05:46 Hgb (11.4-16.0) gm/dL Hct (34.0-46.0) % ABG pH 7.48 H (7.35-7.45) ABG pO2 121 H (83-108) mmHg ABG HCO3 27 H (21-25) mmol/L ABG Total CO2 28 H (19-24) mmol/L ABG O2 Saturation 99.3 H (94-97) % BUN (7-17) mg/dL Creatinine (0.52-1.04) mg/dL Glucose (74-99) mg/dL POC Glucose (mg/dL) (70-110) mg/dL Microbiology - Last 24 Hours (Table) 07/16/22 00:17 Gram Stain - Preliminary Sputum Sputum Culture - Preliminary 07/15/22 12:26 Urine Culture - Final Urine,Catheterized 07/15/22 14:15 Blood Culture - Preliminary Blood No Growth after 24 hours 07/15/22 14:00 Blood Culture - Preliminary Blood No Growth after 24 hours Assessment and Plan Assessment: This is a 52-year-old woman with medical refractory epilepsy, VNS who presents to the hospital numerous times for breakthrough seizures. Clinical status epilepticus---resolved. Her epilepsy is not controlled. Is compliant with her medications. Medically refractory epilepsy on VNS (has primary generalized epilepsy according preliminary 2.5 hour EEG in earlier 06/2022) Left ICA stenosis 75% on CTA but no significant stenosis on carotids. Hypodensity of left basal ganglia and brainstem reported on CT (but I feel basal ganglia is seen on prior CT and CT head is not best study for brainstem). Probable acute UTI History of stroke with residual left hemiparesis Diabetes mellitus Dnd-stage renal is on dialysis Hypertension Plan: * I spoke with the patient's and he stated her Neurologist (Dr. Ohara's team) recommended her stopping Depakote but she continues to be taking it. Also she was recommended to continue Vimpat 150mg bid, Keppra 500mg bid. She is also on Zonegran. * I increased Zonegran from 100mg daily to 100mg bid. Continue her home Depakote 500mg 1 tab tid with additional 250mg bid, Keppra 500mg bid with additional 500mg post dialysis. I decreased her Vimpat from 150mg bid to 100mg bid since on last admission it was felt she had primary generalized epilepsy and Vimpat was not great drug for primary generalized epilepsy. * I highly recommend patient to follow-up with epileptilologist since has frequent seizures/medical refractory epilepsy. Consider Epidiolex for control of seizures. * Patient has 2.5 hour EEG in our facility on 07/06/2022 (prior admission) and preliminary was reported as runs of sharp and slow waves or spike and slow wave at 2-3 Hz lasting 1 -1.5 seconds suggestive of primary generalized epilepsy. No official report yet. * Continue neuro checks. * Left ICA stenosis 75% on CTA but on carotid duplex no significant stenosis seen. I consulted vascular surgery team for carotid stenosis and I ordered carotid duplex. * Hypodensity of left basal ganglia and brainstem reported on CT (but I feel basal ganglia is seen on prior CT and CT head is not best study for brainstem). I will get repeat CT head today for comparison. * Patient is on home dose Plavix 75mg daily and Lipitor 40mg qhs which is sufficient for secondary stroke prophylaxis. * PT and OT are consulted. * Will defer the rest of medical management to primary team. * For DVT prophylaxis: on subq heparin. The plan is discussed with patient's (who is at bedside) and her nurse. Dr. Sosa will start neurology service tomorrow A.M. Time with Patient: Less than 30
[2022-07-17] MEDS: levETIRAcetam IV 500 MG in SODIUM CHLORIDE 0.9% 100 ML IVPB SCH ×2 (12:28→23:17)
[2022-07-17 17:58] LABS: Glucose,Whole Blood 117 mg/dL (70-110)
[2022-07-17] MEDS: ATORVASTATIN 40 MG TAB PO SCH (21:37)
[2022-07-17] MEDS: LACOSAMIDE IV 100 MG in SODIUM CHLORIDE 0.9% 50 ML IVPB SCH (21:57)
[2022-07-18] LABS: Glucose,Whole Blood 97 mg/dL (70-110)
[2022-07-18 04:32] LABS: HCT 30.2 % (34.0-46.0); HGB 9.8 gm/dL (11.4-16.0); MCH 28.4 pg (25.0-35.0); MCHC 32.4 g/dL (31.0-37.0); MCV 87.5 fL (80.0-100.0); Mean Platelet Volume 10.1; Platelet Count 172 k/uL (150-450); RBC 3.45 m/uL (3.80-5.40); RDW 14.3 % (11.5-15.5); WBC 7.8 k/uL (3.8-10.6)
[2022-07-18 04:53] LABS: Calcium 8.8 mg/dL (8.4-10.2); Magnesium 2.1 mg/dL (1.6-2.3); Potassium 4.5 mmol/L (3.5-5.1)
[2022-07-18] MEDS: CLEVIDIPINE BUTYRATE 25 MG in EMPTY BAG 1 BAG IV SCH ×3 (04:58→22:55)
[2022-07-18 06:11] LABS: Glucose,Whole Blood 76 mg/dL (70-110)
[2022-07-18] MEDS: PANTOPRAZOLE 40 MG TABLET PO SCH (06:48)
[2022-07-18] MEDS: CALCIUM ACETATE 667 MG TAB PO SCH ×3 (06:48→16:52)
[2022-07-18] MEDS: SEVELAMER 800 MG TAB PO SCH ×3 (06:49→16:53)
--- NOTE | 2022-07-18 07:06 | XR ---
EXAMINATION TYPE: XR chest 1V portable DATE OF EXAM: 07/18/2022 6:32 AM COMPARISON: Chest radiograph from one day prior. TECHNIQUE: XR chest 1V portable Portable AP radiograph of the chest. CLINICAL INDICATION:Female, 52 years old with history of Tube placement; FINDINGS: Lungs/Pleura: There is no evidence of pleural effusion, focal consolidation, or pneumothorax. Pulmonary vascularity: Unremarkable. Heart/mediastinum: Cardiomediastinal silhouette is unremarkable. A loop recorder projects over the le ft thorax over the heart. Electronic device with leads terminating over the neck. Musculoskeletal: No acute osseous pathology. Other findings: None Lines/Tubes: Interval removal of endotracheal nasogastric tubes. IMPRESSION: No acute cardiopulmonary disease/process.
[2022-07-18] MEDS: amLODIPine 5 MG TAB PO SCH ×2 (09:22→20:05)
[2022-07-18] MEDS: METOPROLOL TARTRATE 50 MG TAB PO SCH ×2 (09:22→20:06)
[2022-07-18] MEDS: HEPARIN SODIUM,PORCINE/PF 5,000 UNIT/0.5 ML SYRINGE SQ SCH ×3 (09:22→22:55)
[2022-07-18] MEDS: DIVALPROEX SPRINKLE 125 MG CAP.SPRINK PO SCH ×5 (09:23→20:55)
[2022-07-18] MEDS: LACOSAMIDE IV 100 MG in SODIUM CHLORIDE 0.9% 50 ML IVPB SCH ×2 (09:23→20:53)
[2022-07-18] MEDS: MIDAZOLAM HCL 50 MG in SODIUM CHLORIDE 0.9% 40 ML IV SCH (09:24)
--- NOTE | 2022-07-18 10:06 | P.GSCN ---
History of Present Illness Consult date: 07/18/22 Reason for Consult: Carotid stenosis. History of present illness: Patient is a 54-year-old female who suffers from significant a polyp the events who was recently admitted secondary to an epileptic event. Concern was expressed over the possibility of an ischemic neurologic event and a CTA was performed. This suggested greater than 75% stenosis of the left internal carotid artery. She did subsequently undergo carotid duplex imaging. Patient has no known previous neurologic event related to carotid occlusive disease. Past Medical History Past Medical History: Chest Pain / Angina, CVA/TIA, Diabetes Mellitus, GERD/Reflux, Hyperlipidemia, Hypertension, Memory Impairment, Osteoarthritis (OA), Renal Disease, Seizure Disorder, Thyroid Disorder Additional Past Medical History / Comment(s): Last seizure approximately one month ago. Spouse states she used to have seizures 4X per week until she had vagal nerve stimulator placed, now has seizures approximately once a week to once a month. Dialysis MOWEFR. Neuropathy, left drop foot, only able to walk short distances, otherwise uses wheelchair. 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 Never diagnosed with Sleep Apnea but spouse states she does stop breathing through the night and he has to shake her to start breathing again. Varicose veins. History of Any Multi-Drug Resistant Organisms: None Reported Past Surgical History: Section, Tonsillectomy, Uterine Ablation Additional Past Surgical History / Comment(s): Left arm fistula, loop recorder, vagus nerve stimulator. Past Anesthesia/Blood Transfusion Reactions: Motion Sickness Additional Past Anesthesia/Blood Transfusion Reaction / Comm: Family hx unknown, pt adopted. Past Psychological History: Bipolar Smoking Status: Former smoker Past Alcohol Use History: None Reported Additional Past Alcohol Use History / Comment(s): Quit smoking in 2005. Past Drug Use History: None Reported - Past Family History Father Family Medical History: Unable to Obtain Additional Family Medical History / Comment(s): Pt adopted. Medications and Allergies Home Medications Medication Instructions Recorded Confirmed Type Clopidogrel [Plavix] 75 mg PO DAILY #30 tab 09/05/20 07/15/22 Rx Atorvastatin [Lipitor] 40 mg PO HS 03/23/21 07/15/22 History Dulaglutide [Trulicity] 3 mg SQ Q7D 03/23/21 07/15/22 History Sevelamer [Renvela] 800 mg PO BID-W/MEALS 03/23/21 07/15/22 History Vascepa 1gm 1 gm PO BID 03/23/21 07/15/22 History Calcium Acetate 667 mg PO TID-W/MEALS 02/25/22 07/15/22 History Metoprolol Tartrate [Lopressor] 25 mg PO BID 02/25/22 07/15/22 History Pantoprazole [Protonix] 40 mg PO DAILY 02/25/22 07/15/22 History Potassium Chloride ER [K-Dur 20] 20 meq PO BID 02/25/22 07/15/22 History levETIRAcetam [Keppra] 500 mg PO BID@0700,2100 02/25/22 07/15/22 History Divalproex ER [Depakote ER] 250 mg PO BID 30 Days #60 tab 02/28/22 07/15/22 Rx levETIRAcetam [Keppra] 500 mg PO MoWeFr@1600 30 Days #15 02/28/22 07/15/22 Rx tab Sevelamer [Renvela] 1,600 mg PO W/SUPPER 04/29/22 07/15/22 History Lacosamide [Vimpat] See Taper PO DIRECTED 21 Days 07/06/22 07/15/22 Rx #49 tab Zonisamide [Zonegran] 100 mg PO DAILY 30 Days #30 cap 07/06/22 07/15/22 Rx Divalproex [Depakote] 500 mg PO Q8H 07/15/22 07/15/22 History Allergies Allergy/AdvReac Type Severity Reaction Status Date / Time Penicillins Allergy Itching Verified 07/15/22 13:57 Surgical - Exam Osteopathic Statement: *. No significant issues noted on an osteopathic structural exam other than those noted in the History and Physical/Consult. Vital Signs Pulse Resp BP Pulse Ox 85 16 167/86 96 07/15/22 11:22 07/15/22 11:22 07/15/22 11:22 07/15/22 11:22 - Neck carotid bruit: absent (No carotid bruit noted either side.) Results - Labs 07/18/22 04:10 07/18/22 04:10 Abnormal Lab Results - Last 24 Hours (Table) 07/17/22 07/18/22 07/18/22 Range/Units 17:56 04:10 04:10 RBC 3.45 L (3.80-5.40) m/uL Hgb 9.8 L (11.4-16.0) gm/dL Hct 30.2 L (34.0-46.0) % BUN 26 H (7-17) mg/dL Creatinine 8.95 H* (0.52-1.04) mg/dL POC Glucose (mg/dL) 117 H (70-110) mg/dL Microbiology - Last 24 Hours (Table) 07/15/22 14:15 Blood Culture - Preliminary Blood No Growth after 48 hours 07/15/22 14:00 Blood Culture - Preliminary Blood No Growth after 48 hours 07/16/22 00:17 Gram Stain - Preliminary Sputum Sputum Culture - Preliminary Diabetes panel 07/18/22 Range/Units 04:10 Sodium 138 (137-145) mmol/L Potassium 4.5 (3.5-5.1) mmol/L Chloride 104 (98-107) mmol/L Carbon Dioxide 24 (22-30) mmol/L BUN 26 H (7-17) mg/dL Creatinine 8.95 H* (0.52-1.04) mg/dL Glucose 78 (74-99) mg/dL Calcium 8.8 (8.4-10.2) mg/dL Calcium panel 07/18/22 Range/Units 04:10 Calcium 8.8 (8.4-10.2) mg/dL Pituitary panel 07/18/22 Range/Units 04:10 Sodium 138 (137-145) mmol/L Potassium 4.5 (3.5-5.1) mmol/L Chloride 104 (98-107) mmol/L Carbon Dioxide 24 (22-30) mmol/L BUN 26 H (7-17) mg/dL Creatinine 8.95 H* (0.52-1.04) mg/dL Glucose 78 (74-99) mg/dL Calcium 8.8 (8.4-10.2) mg/dL Adrenal panel 07/18/22 Range/Units 04:10 Sodium 138 (137-145) mmol/L Potassium 4.5 (3.5-5.1) mmol/L Chloride 104 (98-107) mmol/L Carbon Dioxide 24 (22-30) mmol/L BUN 26 H (7-17) mg/dL Creatinine 8.95 H* (0.52-1.04) mg/dL Glucose 78 (74-99) mg/dL Calcium 8.8 (8.4-10.2) mg/dL - Imaging Additional studies: Carotid duplex images reviewed. CTA images reviewed. Assessment and Plan Assessment: #1: Severe epileptic disease. #2: No evidence to suggest significant carotid occlusive disease. There is a discordance between the CTA results in the carotid duplex imaging results however I do not see any evidence of carotid occlusive disease on either study. Plan: #1: Agree with current medical regimen. #2: No plan for vascular surgical intervention in reference to carotid occlusive disease nor is any expected to be needed in the future. #3: We'll be happy to reevaluate at your request. Time with Patient: Greater than 30
[2022-07-18] MEDS: CLOPIDOGREL 75 MG TAB PO SCH (10:34)
[2022-07-18] MEDS: POTASSIUM CHLORIDE ER 20 MEQ TAB.ER PO SCH ×2 (10:34→20:55)
[2022-07-18] MEDS: VASCEPA 1 GM PO SCH ×2 (10:34→20:55)
[2022-07-18] MEDS: ZONISAMIDE 100 MG CAP PO SCH ×2 (10:35→20:55)
[2022-07-18 11:38] LABS: Glucose,Whole Blood 93 mg/dL (70-110)
--- NOTE | 2022-07-18 12:49 | P.PN ---
Subjective Progress Note Date: 07/18/22 Principal diagnosis: status epilepticus this is a 52-year-old female with history of chronic seizure disorder, her seizures have been recently poorly controlled, patient follows up with the neurologist/Dr. Ohara for her seizures. Patient was brought into the ER yesterday with altered mental status, intermittent episodes of nausea and vomiting. Apparently the patient was dropped off yesterday at the dialysis unit/clinic, and when she got there patient became unresponsive, she did not notice to have any seizure-like activity. She was not speaking or answering any questions. Patient was unable to get her dialysis treatment, hence the patient was brought in by EMS to the ER yesterday. Apparently the patient was admitted, and shortly after she was admitted she had recurrent episodes of seizures,/status epilepticus.that a team responded to a call from the nurse on t he floor, patient was evaluated by the hospitalist, did not seem to follow any commands or make any eye contact. And at one point it was felt that the patient had status epilepticus. Apparently the patient had to be intubated to protect her airways, she was admitted to the ICU, and the plan was to consider transferring the patient to [facility] because of her status epilepticus and this was based upon the recommendation of the neurologist who was notified about this patient. Patient was placed on multiple medications for her seizures, and these will be noted below. Today I evaluated the patient while she is on mechanical ventilation, and I recommended that we start considering weaning and stopping her Versed which is 5 mg per hour, he is also on propofol at 20 mcg/kg/m, and will possibly extubate the patient. She was evaluated by the neurologist, and he feels that the seizures seem to be presently under control, and would be worthwhile giving the patient a weaning trial and possibly extubation. Her assist-control rate is 14 tidal volume 400 FiO2 30 PEEP of 5. ABG from previous settings was noted she had a pO2 of 165 pCO2 24 pH of 7.60, however since then the ventilator settings have been really adjusted. Her last seizure was reported at [address] of the brain last night showed subacute lacunar infarct, and suspicious brainstem lesion.however the neurologist evalu ated the CT of the brain, and did not feel that this is a worrisome finding.patient is getting IV Keppra loading dose, she is also getting Versed and propofol, and she was givenDepakote twice a day, patient is also receiving [id number] mg IV twice a day.in addition the patient is on zonisamide 100 mg by mouth twice a dayobviously the patient is maximized on all antiseizure medications, and I'm hoping her seizures are under control at present, will give the patient a trial of weaning and possibly extubationobviously no further plans to transfer the patient at this point. Reevaluated today on 07/17/22, patient remains in the ICU, intubated and mechanically ventilated, she is on assist control rate of 20, volume 400 FiO2 30% and PEEP of 5.ABG showed a pO2 of 121 pCO2 36 pH of 7.48. WBC count is 5.6 hemoglobin is 10.9. Electrolytes are basically unremarkable,BUN is 20 creatinine 7.22. Patient is a renal patient, and she is on hemodialysis. Patient is on propofol at 20 mcg/kg/m which I have discontinued this morning, he is also on clevidipine at 6 mg per hour. After stopping her propofol, the patient seems to be appropriate, she is following instructions, and I plan wean this patient today using pressure support with CPAP, or may use IMV with pressure support leading to CPAP. Overall the patient is doing better, and again I plan to wean and extubate, no seizure activities in the last 24 hours.chest x-ray is basically unremarkable today. Reevaluated today on 07/18/22, patient remains in the ICU, she was extubated yesterday, she tolerated the extubation well. She is now on 2 L nasal cannula, not in distress, she is requiring clevidipine elevated blood pressure, hence I started the patient on metoprolol 50 mg twice a day and amlodipine 5 mg by mouth twice a day. No seizures noted over the last 24 hours, patient seems to be generally weak, not in any form of respiratory distress. Labs today are basically unremarkable except for creatinine of 8.95, and I believe the patient will likely be hemodialysis today. Chest x-ray showed no evidence of any active disease. Objective - Vital Signs Vital signs: Vital Signs Temp 98.3 F 07/18/22 08:00 Pulse 81 07/18/22 11:00 Resp 15 07/18/22 11:00 BP 134/71 07/18/22 08:00 Pulse Ox 96 07/18/22 11:00 FiO2 35 07/17/22 18:05 Intake & Output 07/17/22 07/18/22 07/18/22 18:59 06:59 18:59 Intake Total 408.912 355.433 40.267 Output Total 0 0 0 Balance 408.912 355.433 40.267 Weight 78.8 kg Intake: IV 250 280 40 Lacosamide IV 100 mg In 50 50 Sodium Chloride 0.9% 50 ml @ 100 mls/hr IVPB BID NEELIMA Rx#:[id number] NS @ KVO 100 130 40 levETIRAcetam IV 500 mg 100 100 In Sodium Chloride 0.9% 100 ml @ 400 mls/hr IVPB Q12H NEELIMA Rx#:[id number] Intake, IV Titration 158.912 75.433 0.267 Amount Clevidipine Butyrate 25 131.766 75.433 0.267 mg In Empty Bag 1 bag @ 1 MG/HR 2 mls/hr IV .Q24H NEELIMA Rx#:[id number] propofoL 1,000 mg In 27.146 Empty Bag 1 bag @ 15 MCG/ KG/MIN 5.715 mls/hr IV . [id number] NEELIMA Rx#:[id number] Output: Urine 0 0 0 ABP, PAP, CO, CI - Last Documented Arterial Blood Pressure 126/53 - Exam Physical Exam: Revealed a 52-year-old female in no distress, on 2 L nasal cannula. Head: Atraumatic, normocephalic. HEENT:[Neck is supple.] [No neck masses.] [No thyromegaly.] [No JVD.] Chest: [Clear throughout, no crackles, no rhonchi, no wheezes.] Cardiac Exam: [Normal S1 and S2, no S3 gallop, no murmur.] Abdomen: [Soft, nontender, no megaly, no rebound, no guarding, normal bowel sounds.] Extremities: [No clubbing, no edema, no cyanosis.] Neurological Exam: Patient seems generally weak, alert oriented 3, no gross focal neurologic deficits. Psychiatric: Depressed mood flat affect, normal mental status. Skin: No rashes. Musculoskeletal: No deformities and no limitation of range of motion. - Labs CBC & Chem 7: 07/18/22 04:10 07/18/22 04:10 Labs: Abnormal Lab Results - Last 24 Hours (Table) 07/17/22 07/18/22 07/18/22 Range/Units 17:56 04:10 04:10 RBC 3.45 L (3.80-5.40) m/uL Hgb 9.8 L (11.4-16.0) gm/dL Hct 30.2 L (34.0-46.0) % BUN 26 H (7-17) mg/dL Creatinine 8.95 H* (0.52-1.04) mg/dL POC Glucose (mg/dL) 117 H (70-110) mg/dL Microbiology - Last 24 Hours (Table) 07/16/22 00:17 Gram Stain - Final Sputum Sputum Culture - Final 07/15/22 14:15 Blood Culture - Preliminary Blood No Growth after 48 hours 07/15/22 14:00 Blood Culture - Preliminary Blood No Growth after 48 hours Assessment and Plan Assessment: impression: Status epilepticus. Presently under control. Patient required intubation and mechanical ventilation to protect her airways. Extubated on 07/17/22. acute hypoxic respiratory failure secondary to status epilepticus,, unable to protect her airways history of CVA and residual left hemiparesis Type 2 diabetes. End-stage renal disease, on hemodialysis Benign essential hypertension dyslipidemia Degenerative joint disease Recommendation: Continue seizure meds as per neurology on the case. Continue to monitor in the ICU for the next 24 hours Started patient on metoprolol 50 mg by mouth twice a day and amlodipine 5 mg twice a day the plan is to discontinue clevidipine. GI and DVT prophylaxis. We'll continue seizure precautions continue GI and DVT prophylaxis. Continue seizure precautions. We will continue to follow while in ICU. For the next 24 hours Time with Patient: Less than 30
[2022-07-18] MEDS: levETIRAcetam IV 500 MG in SODIUM CHLORIDE 0.9% 100 ML IVPB SCH ×2 (14:46→22:56)
[2022-07-18 16:08] LABS: Glucose,Whole Blood 65 mg/dL (70-110)
[2022-07-18] MEDS ORDERED: DEXTROSE 50% SYRINGE 50 ML IVP ONE (16:08)
[2022-07-18 16:31] LABS: Glucose,Whole Blood 137 mg/dL (70-110)
[2022-07-18] MEDS: DEXTROSE 5%-0.9% NACL 1,000 ML IV SCH (16:52)
[2022-07-18 20:04] LABS: Glucose,Whole Blood 100 mg/dL (70-110)
[2022-07-18] MEDS: ATORVASTATIN 40 MG TAB PO SCH (20:06)
[2022-07-18 22:59] LABS: Glucose,Whole Blood 87 mg/dL (70-110)
--- NOTE | 2022-07-19 00:03 | P.PN ---
Subjective Progress Note Date: 07/17/22 patient is a 52-year-old female with a known history ofhypertension, hyperlipidemia, diabetes type 2, history of seizure disorder and most recent seizures about a month ago, prior history of vagal nerve stimulator placed, diabetic peripheral neuropathy, ESRD on hemodialysis Monday and Monday and history of CVA/TIA and uses wheelchair, residual memory impairment, newly diagnosed obstructive sleep apnea, prior history of smoking and bipolar disorder and other medical problems was seen at dialysis clinic yesterday when she became unresponsive and was not following commands and answering questions. Patient was sent to ER for evaluation. Patient was also having nausea and episodes of vomiting. She was noted to have seizure-like activity. She did not get dialysis and was transferred to ED by EMS. On arrival to ER patient was awake alert and oriented x1 and was not holding any conversation with the staff. Previously she was admitted to the hospital from 07 03-07 06 for worsening seizu re activity. Patient was started on Zonegran along with Keppra and Depakote. Patient was also having episodes of vomiting in the ER. As per her patient has been having vomiting for the past 1 week on and off. She was also seen at [facility] earlier this week for seizure-like activity. Patient was admitted to hospital with neurology consultation. Overnight a team was called for assessment and possible status epilepticus. Patient was not following commands or make eye contact. Patient was also having episodes of emesis and concern for possible aspiration. Patient was transferred to MICU and intubated for airway protection. On admission EKG showed sinus rhythm with moderate intraventricular conduction delays. CT head showed hypodensity within the brainstem and within the left basal ganglia could be ischemic changes of intermediate age. Consider follow-up with MRI. Chest x-ray showed no acute cardiopulmonary process. Chest x-ray repeated last night showed no acute cardiopulmonary disease. Normal heart. No change. Laboratory data on admission WBC 6.7 hemoglobin 0.1 and platelets 218 Sodium 142 potassium 4.0 chloride 100 bicarb is 24 BUN 32 and creatinine 9.47 and lactic acid 3.0 and blood sugar was 288 on admission proBNP 2780 Troponin x1 negative TSH 0.708 Urinalysis showed cloudy with 3+ protein large leukocyte esterase and elevated RBCs and WBCs. Valproic acid level was 127.1. Therapeutic level is 50-1 20 CTA head and neck showed irregular moderate plaque in the left carotid artery stenosis 75% at the origin.. 07/17/2022 Patient is currently in the MICU and remains intubated and on mechanical ventilator. Propofol has been discontinued and patient remains Cleviprex. Patient is able to open her eyes but able to follow commands at this time. Pulmonary is planning to wean off with pressure support and possible extubation. Chest x-ray showed satisfactory ET and NG tube. No acute process seen. Patient is being continued on Keppra, Vimpat and Zonegran. Pulmonary and neurology is on board. Hemodialysis as per schedule. Laboratory data showed WBC 5.6 hemoglobin 10.9 platelets 203 Sodium 139 potassium 4.2 chloride 104 bicarb is 26 BUN 21 creatinine 7.22 and blood sugar is 114. Valproic acid level is 73.8 Objective - Vital Signs Vital signs: Vital Signs Temp 98.6 F 07/17/22 20:00 Pulse 90 07/17/22 20:00 Resp 19 07/17/22 20:00 BP 143/71 07/17/22 17:00 Pulse Ox 98 07/17/22 20:00 FiO2 35 07/17/22 18:05 Intake & Output 07/17/22 07/17/22 07/18/22 06:59 18:59 06:59 Intake Total 388.513 408.912 45.233 Output Total 0 0 Balance 388.513 408.912 45.233 Weight 75.8 kg Intake: IV 270 250 20 Lacosamide IV 100 mg In 50 50 Sodium Chloride 0.9% 50 ml @ 100 mls/hr IVPB BID [facility] Rx#:[id number] NS @ KVO 120 100 20 levETIRAcetam IV 500 mg 100 100 In Sodium Chloride 0.9% 100 ml @ 400 mls/hr IVPB Q12H [facility] Rx#:[id number] Intake, IV Titration 118.513 158.912 25.233 Amount Clevidipine Butyrate 25 82.934 131.766 25.233 mg In Empty Bag 1 bag @ 1 MG/HR 2 mls/hr IV .Q24H [facility] Rx#:[id number] propofoL 1,000 mg In 35.579 27.146 Empty Bag 1 bag @ 15 MCG/ KG/MIN 5.715 mls/hr IV . [id number] [facility] Rx#:[id number] Output: Urine 0 0 ABP, PAP, CO, CI - Last Documented Arterial Blood Pressure 162/56 - Exam PHYSICAL EXAMINATION: Patient is currently sedated and intubated... HEENT: Normocephalic. Neck is supple. Pupils reactive. Nostrils clear. Oral cavity is moist. Neck reveals no JVD, carotid bruits, or thyromegaly. CHEST EXAMINATION: Trachea is central. Symmetrical expansion. Bibasilar diminished sounds. No wheezing or crackles. Lung reich clear to auscultation and percussion. CARDIAC: Normal S1, S2 with no gallops. No murmurs ABDOMEN: Soft. Bowel sounds present. No organomegaly. No abdominal bruits. Extremities: Trace edema. No clubbing or cyanosis Neurologically patient is sedated intubated. No gross focal deficits noted. Left foot drop. Skin: No rash or skin lesions. Psychiatric: Could not be assessed at this time. Musculoskeletal: No joint swelling or deformity. - Labs CBC & Chem 7: 07/18/22 04:10 07/18/22 04:10 Labs: Abnormal Lab Results - Last 24 Hours (Table) 07/17/22 07/17/22 07/17/22 Range/Units 05:18 05:18 05:46 Hgb 10.9 L (11.4-16.0) gm/dL Hct 33.3 L (34.0-46.0) % ABG pH 7.48 H (7.35-7.45) ABG pO2 121 H (83-108) mmHg ABG HCO3 27 H (21-25) mmol/L ABG Total CO2 28 H (19-24) mmol/L ABG O2 Saturation 99.3 H (94-97) % BUN 20 H (7-17) mg/dL Creatinine 7.22 H* (0.52-1.04) mg/dL Glucose 114 H (74-99) mg/dL POC Glucose (mg/dL) (70-110) mg/dL 07/17/22 Range/Units 17:56 Hgb (11.4-16.0) gm/dL Hct (34.0-46.0) % ABG pH (7.35-7.45) ABG pO2 (83-108) mmHg ABG HCO3 (21-25) mmol/L ABG Total CO2 (19-24) mmol/L ABG O2 Saturation (94-97) % BUN (7-17) mg/dL Creatinine (0.52-1.04) mg/dL Glucose (74-99) mg/dL POC Glucose (mg/dL) 117 H (70-110) mg/dL Microbiology - Last 24 Hours (Table) 07/15/22 14:15 Blood Culture - Preliminary Blood No Growth after 48 hours 07/15/22 14:00 Blood Culture - Preliminary Blood No Growth after 48 hours 07/16/22 00:17 Gram Stain - Preliminary Sputum Sputum Culture - Preliminary 07/15/22 12:26 Urine Culture - Final Urine,Catheterized Assessment and Plan Assessment: Altered mental status likely due to e status epilepticus. Patient remains intubated. Weaning trial in process.. History of refractory epilepsy with previous multiple admissions due to seizures. left ICA 75%stenosis at the origin as per CTA neck. hypodensity in the brainstem and left basal ganglia were related to previous CVA ESRD on hemodialysisMonday and Monday. History of CVA with left hemiparesis Diabetes2 I would a peripheral neuropathy Memory impairment GERD Hypertension next hyperlipidemia Hypothyroidism bipolar disorder Primary history of smoking DVT prophylaxis with heparin subcu Plan: Patient is currently intubated and sedated for airway protection.Patient remains intubated. Weaning trial in process. Started back on Zonegran, Depakote and Keppra as per neurology rec ommendations.Zonegran dose increased to 100 mg twice a day,Keppra additional dose 500 mg post dialysis. Patient will be continued on secondary stroke prophylaxis Plavix and Lipitor, Neurology is on board. Nephrology is on board for hemodialysis. Continue with home medications and insulin sliding scale for better blood sugar control. Follow-up closely. Prognosis is guarded with multiple medical problems and comorbid conditions. Time with Patient: Greater than 30
--- NOTE | 2022-07-19 00:06 | P.PN ---
Subjective Progress Note Date: 07/18/22 patient is a 52-year-old female with a known history ofhypertension, hyperlipidemia, diabetes type 2, history of seizure disorder and most recent seizures about a month ago, prior history of vagal nerve stimulator placed, diabetic peripheral neuropathy, ESRD on hemodialysis Monday and Monday and history of CVA/TIA and uses wheelchair, residual memory impairment, newly diagnosed obstructive sleep apnea, prior history of smoking and bipolar disorder and other medical problems was seen at dialysis clinic yesterday when she became unresponsive and was not following commands and answering questions. Patient was sent to ER for evaluation. Patient was also having nausea and episodes of vomiting. She was noted to have seizure-like activity. She did not get dialysis and was transferred to ED by EMS. On arrival to ER patient was awake alert and oriented x1 and was not holding any conversation with the staff. Previously she was admitted to the hospital from 07 03-07 06 for worsening seizu re activity. Patient was started on Zonegran along with Keppra and Depakote. Patient was also having episodes of vomiting in the ER. As per her patient has been having vomiting for the past 1 week on and off. She was also seen at [facility] earlier this week for seizure-like activity. Patient was admitted to hospital with neurology consultation. Overnight a team was called for assessment and possible status epilepticus. Patient was not following commands or make eye contact. Patient was also having episodes of emesis and concern for possible aspiration. Patient was transferred to MICU and intubated for airway protection. On admission EKG showed sinus rhythm with moderate intraventricular conduction delays. CT head showed hypodensity within the brainstem and within the left basal ganglia could be ischemic changes of intermediate age. Consider follow-up with MRI. Chest x-ray showed no acute cardiopulmonary process. Chest x-ray repeated last night showed no acute cardiopulmonary disease. Normal heart. No change. Laboratory data on admission WBC 6.7 hemoglobin 0.1 and platelets 218 Sodium 142 potassium 4.0 chloride 100 bicarb is 24 BUN 32 and creatinine 9.47 and lactic acid 3.0 and blood sugar was 288 on admission proBNP 2780 Troponin x1 negative TSH 0.708 Urinalysis showed cloudy with 3+ protein large leukocyte esterase and elevated RBCs and WBCs. Valproic acid level was 127.1. Therapeutic level is 50-1 20 CTA head and neck showed irregular moderate plaque in the left carotid artery stenosis 75% at the origin.. 07/17/2022 Patient is currently in the MICU and remains intubated and on mechanical ventilator. Propofol has been discontinued and patient remains Cleviprex. Patient is able to open her eyes but able to follow commands at this time. Pulmonary is planning to wean off with pressure support and possible extubation. Chest x-ray showed satisfactory ET and NG tube. No acute process seen. Patient is being continued on Keppra, Vimpat and Zonegran. Pulmonary and neurology is on board. Hemodialysis as per schedule. Laboratory data showed WBC 5.6 hemoglobin 10.9 platelets 203 Sodium 139 potassium 4.2 chloride 104 bicarb is 26 BUN 21 creatinine 7.22 and blood sugar is 114. Valproic acid level is 73.8 07/18/2022 Patient is in the MICU. Patient was extubated yesterday. On 2 L oxygen via nasal cannula. Patient is on Cleviprex. Awake alert and tries to communicate. Chest x-ray today showed no acute cardiopulmonary process. Patient is being continued on antiepileptic drugs and was also started on blood pressure medications this morning. CBG down to 65 this afternoon. Patient is currently nothing by mouth. Laboratory data showed WBC 7.8 hemoglobin 9.8 and platelets 172 sodium 138 potassium 4.5 chloride 104 bicarb is 24 BUN 26 and creatinine 8.95. Pulmonary, neurology and nephrology is on board. Current medications reviewed. Objective - Vital Signs Vital signs: Vital Signs Temp 98.3 F 07/18/22 20:00 Pulse 86 07/18/22 22:00 Resp 23 07/18/22 22:00 BP 139/102 07/18/22 21:00 Pulse Ox 97 07/18/22 22:00 FiO2 35 07/17/22 18:05 Intake & Output 07/18/22 07/18/22 07/19/22 06:59 18:59 06:59 Intake Total 355.433 370.534 390 Output Total 0 0 0 Balance 355.433 370.534 390 Weight 78.8 kg 78.8 kg Intake: IV 280 310 390 Dextrose 5%-0.9% NaCl 1, 100 200 000 ml @ 50 mls/hr IV . Q20H [facility] Rx#:[id number] Lacosamide IV 100 mg In 50 50 Sodium Chloride 0.9% 50 ml @ 100 mls/hr IVPB BID [facility] Rx#:[id number] NS @ KVO 130 110 40 levETIRAcetam IV 500 mg 100 100 100 In Sodium Chloride 0.9% 100 ml @ 400 mls/hr IVPB Q12H [facility] Rx#:[id number] Intake, IV Titration 75.433 60.534 Amount Clevidipine Butyrate 25 75.433 60.534 mg In Empty Bag 1 bag @ 1 MG/HR 2 mls/hr IV .Q24H [facility] Rx#:[id number] Output: Urine 0 0 0 ABP, PAP, CO, CI - Last Documented Arterial Blood Pressure 135/52 - Exam PHYSICAL EXAMINATION: Patient is currently sedated and intubated... HEENT: Normocephalic. Neck is supple. Pupils reactive. Nostrils clear. Oral cavity is moist. Neck reveals no JVD, carotid bruits, or thyromegaly. CHEST EXAMINATION: Trachea is central. Symmetrical expansion. Bibasilar diminished sounds. No wheezing or crackles. Lung reich clear to auscultation and percussion. CARDIAC: Normal S1, S2 with no gallops. No murmurs ABDOMEN: Soft. Bowel sounds present. No organomegaly. No abdominal bruits. Extremities: Trace edema. No clubbing or cyanosis Neurologically patient is sedated intubated. No gross focal deficits noted. Left foot drop. Skin: No rash or skin lesions. Psychiatric: Could not be assessed at this time. Musculoskeletal: No joint swelling or deformity. - Labs CBC & Chem 7: 07/18/22 04:10 07/18/22 04:10 Labs: Abnormal Lab Results - Last 24 Hours (Table) 07/18/22 07/18/22 07/18/22 Range/Units 04:10 04:10 16:06 RBC 3.45 L (3.80-5.40) m/uL Hgb 9.8 L (11.4-16.0) gm/dL Hct 30.2 L (34.0-46.0) % BUN 26 H (7-17) mg/dL Creatinine 8.95 H* (0.52-1.04) mg/dL POC Glucose (mg/dL) 65 L (70-110) mg/dL 07/18/22 Range/Units 16:29 RBC (3.80-5.40) m/uL Hgb (11.4-16.0) gm/dL Hct (34.0-46.0) % BUN (7-17) mg/dL Creatinine (0.52-1.04) mg/dL POC Glucose (mg/dL) 137 H (70-110) mg/dL Microbiology - Last 24 Hours (Table) 07/15/22 14:15 Blood Culture - Preliminary Blood No Growth after 72 hours 07/15/22 14:00 Blood Culture - Preliminary Blood No Growth after 72 hours 07/16/22 00:17 Gram Stain - Final Sputum Sputum Culture - Final Assessment and Plan Assessment: Altered mental status likely due to e status epilepticus. Patient is extubated on 07/17.. History of refractory epilepsy with previous multiple admissions due to seizures. left ICA 75%stenosis at the origin as per CTA neck. hypodensity in the brainstem and left basal ganglia were related to previous CVA ESRD on hemodialysisMonday and Monday. History of CVA with left hemiparesis Diabetes2 I would a peripheral neuropathy Memory impairment GERD Hypertension next hyperlipidemia Hypothyroidism bipolar disorder Primary history of smoking DVT prophylaxis with heparin subcu Plan: Patient is extubated 07/17/2022. Remains Cleviprex. initiated blood pressure medications. Started back on Zonegran, Depakote and Keppra as per neurology recommendations.Zonegran dose increased to 100 mg twice a day,Keppra additional dose 500 mg post dialysis. Patient will be continued on secondary stroke prophylaxis Plavix and Lipitor, Neurology is on board. Nephrology is on board for hemodialysis. Continue with home medications and insulin sliding scale for better blood sugar control. Follow-up closely. Prognosis is guarded with multiple medical problems and comorbid conditions. Time with Patient: Greater than 30
[2022-07-19] MEDS: CLEVIDIPINE BUTYRATE 25 MG in EMPTY BAG 1 BAG IV SCH (02:52)
[2022-07-19 03:59] LABS: Glucose,Whole Blood 97 mg/dL (70-110)
[2022-07-19 05:36] LABS: HCT 29.4 % (34.0-46.0); HGB 9.2 gm/dL (11.4-16.0); Hypochromasia Slight; MCHC 31.4 g/dL (31.0-37.0); MCV 89.3 fL (80.0-100.0); Mean Platelet Volume 10.5; Platelet Count 154 k/uL (150-450); RBC 3.29 m/uL (3.80-5.40); RDW 13.9 % (11.5-15.5); WBC 6.6 k/uL (3.8-10.6)
[2022-07-19 05:39] LABS: Calcium 8.5 mg/dL (8.4-10.2); Magnesium 2.3 mg/dL (1.6-2.3); Potassium 4.3 mmol/L (3.5-5.1)
[2022-07-19] MEDS: SEVELAMER 800 MG TAB PO SCH ×3 (06:13→17:35)
[2022-07-19] MEDS: PANTOPRAZOLE 40 MG TABLET PO SCH ×2 (06:13→13:51)
[2022-07-19] MEDS: CALCIUM ACETATE 667 MG TAB PO SCH ×3 (06:13→17:35)
[2022-07-19 07:58] LABS: Glucose,Whole Blood 110 mg/dL (70-110)
[2022-07-19] MEDS: amLODIPine 5 MG TAB PO SCH ×3 (08:00→20:49)
[2022-07-19] MEDS: DIVALPROEX SPRINKLE 125 MG CAP.SPRINK PO SCH ×7 (08:00→20:50)
[2022-07-19] MEDS: ZONISAMIDE 100 MG CAP PO SCH ×3 (08:00→20:48)
[2022-07-19] MEDS: METOPROLOL TARTRATE 50 MG TAB PO SCH (08:00)
[2022-07-19] MEDS: CLOPIDOGREL 75 MG TAB PO SCH ×2 (08:00→13:50)
[2022-07-19] MEDS: POTASSIUM CHLORIDE ER 20 MEQ TAB.ER PO SCH (08:00)
[2022-07-19] MEDS: VASCEPA 1 GM PO SCH ×2 (08:00→20:50)
[2022-07-19] MEDS ORDERED: METOPROLOL TARTRATE 5 MG/5 ML VIAL IVP SCH (09:15)
--- NOTE | 2022-07-19 09:28 | P.PN ---
Subjective Progress Note Date: 07/18/22 Patient was seen for a follow-up. Patient initially seen by Dr. Cristhian Luevano. Please refer to his note for details. Patient is a 52-year-old female with history of seizure disorder. She has clinical status epilepticus that has resolved. She is known to our neurology service for recurrent seizures, and was last time seen by myself on 07/06/2022. A 2.5 hour EEG at that time reported generalized spikes seen along with some triphasic waves. At that time it was recommended to wean off Vimpat, continue low-dose Depakote 250 mg twice a day, Keppra 500 mg twice a day and extra 500 mg tablet postdialysis and zonisamide 100 mg daily was started. Apparently she was seen by neurologist and patient currently on Depakote 500 mg every 8 hours, zonisamide 100 mg daily, Keppra 500 mg twice a day with 500 mg postdialysis Monday. Also appears to be on Depakote 250 mg twice a day. Patient has very slow mentation. Per speech therapist note, patient has been made nothing by mouth, patient not able to swallow medications. She has very delayed responses and delayed speech. Poor oral phase. Objective - Vital Signs Vital signs: Vital Signs Temp 98.5 F 07/18/22 16:00 Pulse 85 07/18/22 17:00 Resp 9 L 07/18/22 17:00 BP 125/70 07/18/22 17:00 Pulse Ox 99 07/18/22 17:00 FiO2 35 07/17/22 18:05 Intake & Output 07/17/22 07/18/22 07/18/22 18:59 06:59 18:59 Intake Total 408.912 355.433 268.401 Output Total 0 0 0 Balance 408.912 355.433 268.401 Weight 78.8 kg 78.8 kg Intake: IV 250 280 250 Dextrose 5%-0.9% NaCl 1, 50 000 ml @ 50 mls/hr IV . Q20H [facility] Rx#:[id number] Lacosamide IV 100 mg In 50 50 Sodium Chloride 0.9% 50 ml @ 100 mls/hr IVPB BID [facility] Rx#:[id number] NS @ KVO 100 130 100 levETIRAcetam IV 500 mg 100 100 100 In Sodium Chloride 0.9% 100 ml @ 400 mls/hr IVPB Q12H [facility] Rx#:[id number] Intake, IV Titration 158.912 75.433 18.401 Amount Clevidipine Butyrate 25 131.766 75.433 18.401 mg In Empty Bag 1 bag @ 1 MG/HR 2 mls/hr IV .Q24H [facility] Rx#:[id number] propofoL 1,000 mg In 27.146 Empty Bag 1 bag @ 15 MCG/ KG/MIN 5.715 mls/hr IV . [id number] [facility] Rx#:[id number] Output: Urine 0 0 0 ABP, PAP, CO, CI - Last Documented Arterial Blood Pressure 137/52 - Exam Patient is awake, but slow mentation, prolonged latency time to answer questions. Her nursing report, it is much better than how it was in the morning. - Labs CBC & Chem 7: 07/19/22 04:00 07/19/22 04:00 Labs: Abnormal Lab Results - Last 24 Hours (Table) 07/17/22 07/18/22 07/18/22 Range/Units 17:56 04:10 04:10 RBC 3.45 L (3.80-5.40) m/uL Hgb 9.8 L (11.4-16.0) gm/dL Hct 30.2 L (34.0-46.0) % BUN 26 H (7-17) mg/dL Creatinine 8.95 H* (0.52-1.04) mg/dL POC Glucose (mg/dL) 117 H (70-110) mg/dL 07/18/22 07/18/22 Range/Units 16:06 16:29 RBC (3.80-5.40) m/uL Hgb (11.4-16.0) gm/dL Hct (34.0-46.0) % BUN (7-17) mg/dL Creatinine (0.52-1.04) mg/dL POC Glucose (mg/dL) 65 L 137 H (70-110) mg/dL Microbiology - Last 24 Hours (Table) 07/15/22 14:15 Blood Culture - Preliminary Blood No Growth after 72 hours 07/15/22 14:00 Blood Culture - Preliminary Blood No Growth after 72 hours 07/16/22 00:17 Gram Stain - Final Sputum Sputum Culture - Final Assessment and Plan Assessment: This is a 52-year-old woman with medical refractory epilepsy, VNS who presents to the hospital numerous times for breakthrough seizures. Clinical status epilepticus---resolved. Her epilepsy is not controlled. Is compliant with her medications. Medically refractory epilepsy on VNS (has primary generalized epilepsy according preliminary 2.5 hour EEG in earlier 06/2022) Left ICA stenosis 75% on CTA but no significant stenosis on carotids. Hypodensity of left basal ganglia and brainstem reported on CT (but I feel basal ganglia is seen on prior CT and CT head is not best study for brainstem). Dysphagia, failed swallow studies, currently on nothing by mouth. Rule out CVA. Probable acute UTI History of stroke with residual left hemiparesis Diabetes mellitus Dnd-stage renal is on dialysis Hypertension Plan: * Dr. Luevano has spoken to the patient's and he stated her Neurologist (Dr. Ohara's team) recommended her stopping Depakote but she continues to be taking it. Also she was recommended to continue Vimpat 150mg bid, Keppra 500mg bid. She is also on Zonegran. * Dr. Luevano has increased Zonegran from 100mg daily to 100mg bid. Patient is nothing by mouth at this time because of failed swallow. Patient cannot take Zonegran. We will switch from Depakote by mouth to Depacon IV 500 mg every 8 hours. (At home patient was taking Depakote 500mg 1 tab tid with additional 250mg bid). Continue Keppra 500mg bid with additional 500mg post dialysis. Dr. Luevano has decreased her Vimpat from 150mg bid to 100mg bid since on last admission it was felt she had primary generalized epilepsy and Vimpat was not great drug for primary generalized epilepsy. * I highly recommend patient to follow-up with epileptilologist since has frequent seizures/medical refractory epilepsy. Consider Epidiolex for control of seizures. * Patient has 2.5 hour EEG in our facility on 07/06/2022 (prior admission) and preliminary was reported as runs of sharp and slow waves or spike and slow wave at 2-3 Hz lasting 1 -1.5 seconds suggestive of primary generalized epi lepsy. No official report yet. * Continue neuro checks. * Left ICA stenosis 75% on CTA but on carotid duplex no significant stenosis seen. Vascular surgery input appreciated. No indication for surgery. * Hypodensity of left basal ganglia and brainstem reported on CT (but I feel basal ganglia is seen on prior CT and CT head is not best study for brainstem). Repeat CT head was ordered. We will consider MRI of the brain if no quadrant medications. * Patient is on home dose Plavix 75mg daily and Lipitor 40mg qhs which is sufficient for secondary stroke prophylaxis. * PT and OT are consulted. * Will defer the rest of medical management to primary team. * For DVT prophylaxis: on subq heparin.
--- NOTE | 2022-07-19 10:24 | P.PN ---
Subjective Progress Note Date: 07/19/22 this is a 52-year-old female with history of chronic seizure disorder, her seizures have been recently poorly controlled, patient follows up with the neurologist/Dr. Ohara for her seizures. Patient was brought into the ER yesterday with altered mental status, intermittent episodes of nausea and vomiting. Apparently the patient was dropped off yesterday at the dialysis unit/clinic, and when she got there patient became unresponsive, she did not notice to have any seizure-like activity. She was not speaking or answering any questions. Patient was unable to get her dialysis treatment, hence the patient was brought in by EMS to the ER yesterday. Apparently the patient was admitted, and shortly after she was admitted she had recurrent episodes of seizures,/status epilepticus.that a team responded to a call from the nurse on the floor, patient was evaluated by the hospitalist, did not seem to follow any commands or make any eye contact. And at one point it was felt that the patient had status epilepticus. Apparently the patient had to be intubated to protect her airways, she was admitted to the ICU, and the plan was to consider transferring the patient to [facility] because of her status epilepticus and this was based upon the recommendation of the neurologist who was notified about this patient. Patient was placed on multiple medications for her seizures, and these will be noted below. Today I evaluated the patient while she is on mechanical ventilation, and I recommended that we start considering weaning and stopping her Versed which is 5 mg per hour, he is also on propofol at 20 mcg/kg/m, and will possibly extubate the patient. She was evaluated by the neurologist, and he feels that the seizures seem to be presently under control, and would be worthwhile giving the patient a weaning trial and possibly extubation. Her assist-control rate is 14 tidal volume 400 FiO2 30 PEEP of 5. ABG from previous settings was noted she had a pO2 of 165 pCO2 24 pH of 7.60, h owever since then the ventilator settings have been really adjusted. Her last seizure was reported at [address] of the brain last night showed subacute lacunar infarct, and suspicious brainstem lesion.however the neurologist evaluated the CT of the brain, and did not feel that this is a worrisome finding.patient is getting IV Keppra loading dose, she is also getting Versed and propofol, and she was givenDepakote twice a day, patient is also receiving [id number] mg IV twice a day.in addition the patient is on zonisamide 100 mg by mouth twice a dayobviously the patient is maximized on all antiseizure medications, and I'm hoping her seizures are under control at present, will give the patient a trial of weaning and possibly extubationobviously no further plans to transfer the patient at this point. Reevaluated today on 07/17/22, patient remains in the ICU, intubated and mechanically ventilated, she is on assist control rate of 20, volume 400 FiO2 30% and PEEP of 5.ABG showed a pO2 of 121 pCO2 36 pH of 7.48. WBC count is 5.6 hemoglobin is 10.9. Electrolytes are basically unremarkable,BUN is 20 creatinine 7.22. Patient is a renal patient, and she is on hemodialysis. Patient is on propofol at 20 mcg/kg/m which I have discontinued this morning, he is also on clevidipine at 6 mg per hour. After stopping her propofol, the patient seems to be appropriate, she is following instructions, and I plan wean this patient today using pressure support with CPAP, or may use IMV with press ure support leading to CPAP. Overall the patient is doing better, and again I plan to wean and extubate, no seizure activities in the last 24 hours.chest x- ray is basically unremarkable today. Reevaluated today on 07/18/22, patient remains in the ICU, she was extubated yesterday, she tolerated the extubation well. She is now on 2 L nasal cannula, not in distress, she is requiring clevidipine elevated blood pressure, hence I started the patient on metoprolol 50 mg twice a day and amlodipine 5 mg by mouth twice a day. No seizures noted over the last 24 hours, patient seems to be generally weak, not in any form of respiratory distress. Labs today are basically unremarkable except for creatinine of 8.95, and I believe the patient will likely be hemodialysis today. Chest x-ray showed no evidence of any active disease. The patient is seen today 07/19/2022 in follow-up in the intensive care unit. She is currently sitting up in bed. Awake and alert in no acute distress. She is maintaining good O2 saturation in the 90s on 2 L/m per nasal cannula. She has D5W with normal saline at 50 mL per hour. She is still requiring a clevidipine drip at 2 mg per hour for hypertension. She is receiving hemodialysis. Last treatment on July 16 they removed 1.6 L. Chest x-ray revealed no acute pulmonary process. Blood cultures revealed no growth. Urine culture revealed no growth. Sputum culture revealed no growth. White count 6.6. Hemoglobin 9.2. Platelets 154. Sodium 139. Potassium 4.3. BUN 38. Creatinine 10.6. She is currently on amlodipine and Lopressor. She did not pass a swallow evaluation yesterday. She remains nothing by mouth. To be reevaluated today as she is more awake and alert. No further seizure activity. Objective - Vital Signs Vital signs: Vital Signs Temp 98.1 F 07/19/22 08:00 Pulse 85 07/19/22 10:00 Resp 17 07/19/22 10:00 BP 139/102 07/18/22 21:00 Pulse Ox 98 07/19/22 10:00 FiO2 35 07/17/22 18:05 Intake & Output 07/18/22 07/19/22 07/19/22 18:59 06:59 18:59 Intake Total 370.534 907.400 240 Output Total 0 0 0 Balance 370.534 907.400 240 Weight 78.8 kg 78 kg Intake: IV 310 870 240 Dextrose 5%-0.9% NaCl 1, 100 600 200 000 ml @ 50 mls/hr IV . Q20H NEELIMA Rx#:[id number] Lacosamide IV 100 mg In 50 Sodium Chloride 0.9% 50 ml @ 100 mls/hr IVPB BID NEELIMA Rx#:[id number] NS @ KVO 110 120 40 levETIRAcetam IV 500 mg 100 100 In Sodium Chloride 0.9% 100 ml @ 400 mls/hr IVPB Q12H NEELIMA Rx#:[id number] Intake, IV Titration 60.534 37.400 Amount Clevidipine Butyrate 25 60.534 37.400 mg In Empty Bag 1 bag @ 1 MG/HR 2 mls/hr IV .Q24H NEELIMA Rx#:[id number] Output: Urine 0 0 0 ABP, PAP, CO, CI - Last Documented Arterial Blood Pressure 177/64 - Exam GENERAL EXAM: Alert, slow to respond, 52-year-old female, on 2 L nasal cannula, comfortable in no apparent distress. HEAD: Normocephalic. EYES: Normal reaction of pupils, equal size. NOSE: Clear with pink turbinates. THROAT: No erythema or exudates. NECK: No masses, no JVD. CHEST: No chest wall deformity. LUNGS: Equal air entry with no crackles, wheeze, rhonchi or dullness. CVS: S1 and S2 normal with no audible murmur, regular rhythm. ABDOMEN: No hepatosplenomegaly, normal bowel sounds, no guarding or rigidity. SPINE: No scoliosis or deformity SKIN: No rashes CENTRAL NERVOUS SYSTEM: No focal deficits, tone is normal in all 4 extremities. EXTREMITIES: There is 1+ peripheral edema. No clubbing, no cyanosis. Peripheral pulses are intact. - Labs CBC & Chem 7: 07/19/22 04:00 07/19/22 04:00 Labs: Abnormal Lab Results - Last 24 Hours (Table) 07/18/22 07/18/22 07/19/22 Range/Units 16:06 16:29 04:00 RBC 3.29 L (3.80-5.40) m/uL Hgb 9.2 L (11.4-16.0) gm/dL Hct 29.4 L (34.0-46.0) % BUN (7-17) mg/dL Creatinine (0.52-1.04) mg/dL POC Glucose (mg/dL) 65 L 137 H (70-110) mg/dL 07/19/22 Range/Units 04:00 RBC (3.80-5.40) m/uL Hgb (11.4-16.0) gm/dL Hct (34.0-46.0) % BUN 38 H (7-17) mg/dL Creatinine 10.60 H* (0.52-1.04) mg/dL POC Glucose (mg/dL) (70-110) mg/dL Microbiology - Last 24 Hours (Table) 07/15/22 14:15 Blood Culture - Preliminary Blood No Growth after 72 hours 07/15/22 14:00 Blood Culture - Preliminary Blood No Growth after 72 hours 07/16/22 00:17 Gram Stain - Final Sputum Sputum Culture - Final Assessment and Plan Assessment: Status epilepticus. Presently under control. Patient required intubation and mechanical ventilation to protect her airways. Extubated on 07/17/22. Currently on 2 L nasal cannula. Acute hypoxic respiratory failure secondary to status epilepticus, unable to protect her airways History of CVA and residual left hemiparesis Type 2 diabetes. End-stage renal disease, on hemodialysis Benign essential hypertension Dyslipidemia Degenerative joint disease Plan: The patient was seen and evaluated Labs and medications reviewed Lopressor 5 mg IV every 12 hours Titrate off the clevidipine Transfer to the stepdown unit 3 S. Continue seizure precautions Repeat swallow evaluation Titrate the FiO2 as tolerated Increase her activity as tolerated We will continue to follow I have personally seen and examined the patient, performed the documentation and the assessment and plan as written. Number of minutes spent on the visit: 10.
--- NOTE | 2022-07-19 10:32 | P.PN ---
Subjective Patient is seen in follow-up for end-stage renal disease. She is maintained on hemodialysis on Monday schedule. Resting in bed. Mentation appears to be at baseline. Hemodynamically stable. Vital signs are stable. General: No acute distress. HEENT: Head exam is unremarkable. LUNGS: Breath sounds decreased. HEART: Rate and Rhythm are regular. ABDOMEN: Soft, no distention. EXTREMITITES: No edema. Objective - Vital Signs Vital signs: Vital Signs Temp 98.1 F 07/19/22 08:00 Pulse 85 07/19/22 10:00 Resp 17 07/19/22 10:00 BP 139/102 07/18/22 21:00 Pulse Ox 98 07/19/22 10:00 FiO2 35 07/17/22 18:05 Intake & Output 07/18/22 07/19/22 07/19/22 18:59 06:59 18:59 Intake Total 370.534 907.400 240 Output Total 0 0 0 Balance 370.534 907.400 240 Weight 78.8 kg 78 kg Intake: IV 310 870 240 Dextrose 5%-0.9% NaCl 1, 100 600 200 000 ml @ 50 mls/hr IV . Q20H [facility]ELIMA Rx#:[id number] Lacosamide IV 100 mg In 50 Sodium Chloride 0.9% 50 ml @ 100 mls/hr IVPB BID NEELIMA Rx#:[id number] NS @ KVO 110 120 40 levETIRAcetam IV 500 mg 100 100 In Sodium Chloride 0.9% 100 ml @ 400 mls/hr IVPB Q12H [facility]ELIMA Rx#:[id number] Intake, IV Titration 60.534 37.400 Amount Clevidipine Butyrate 25 60.534 37.400 mg In Empty Bag 1 bag @ 1 MG/HR 2 mls/hr IV .Q24H [facility]ELIMA Rx#:[id number] Output: Urine 0 0 0 ABP, PAP, CO, CI - Last Documented Arterial Blood Pressure 177/64 - Labs CBC & Chem 7: 07/19/22 04:00 07/19/22 04:00 Labs: Abnormal Lab Results - Last 24 Hours (Table) 07/18/22 07/18/22 07/19/22 Range/Units 16:06 16:29 04:00 RBC 3.29 L (3.80-5.40) m/uL Hgb 9.2 L (11.4-16.0) gm/dL Hct 29.4 L (34.0-46.0) % BUN (7-17) mg/dL Creatinine (0.52-1.04) mg/dL POC Glucose (mg/dL) 65 L 137 H (70-110) mg/dL 07/19/22 Range/Units 04:00 RBC (3.80-5.40) m/uL Hgb (11.4-16.0) gm/dL Hct (34.0-46.0) % BUN 38 H (7-17) mg/dL Creatinine 10.60 H* (0.52-1.04) mg/dL POC Glucose (mg/dL) (70-110) mg/dL Microbiology - Last 24 Hours (Table) 07/15/22 14:15 Blood Culture - Preliminary Blood No Growth after 72 hours 07/15/22 14:00 Blood Culture - Preliminary Blood No Growth after 72 hours 07/16/22 00:17 Gram Stain - Final Sputum Sputum Culture - Final Assessment and Plan Plan: Assessment: 1. End-stage renal disease maintained on hemodialysis on Monday schedule. 2. Seizures. Being followed by neurology. 3. Left ICA stenosis. Seen by vascular surgery. 4. Hypertension with chronic kidney disease. 5. Chronic kidney disease mineral bone disease maintained on PhosLo and Renvela. 6. Anemia of chronic kidney disease. Plan: Currently seen while undergoing hemodialysis. Another treatment tomorrow per her outpatient schedule. Stop potassium supplementation. Check phosphorus level. Patient failed swallow eval. Being followed by speech therapy. Check iron studies.
[2022-07-19 11:21] LABS: Glucose,Whole Blood 120 mg/dL (70-110)
[2022-07-19] MEDS: levETIRAcetam IV 500 MG in SODIUM CHLORIDE 0.9% 100 ML IVPB SCH (14:06)
[2022-07-19 14:54] LABS: % Iron Saturation 41.89 (12.00-45.00)
[2022-07-19] MEDS: VALPROATE SODIUM 500 MG in SODIUM CHLORIDE 0.9% 100 ML IVPB SCH ×2 (14:58→15:06)
[2022-07-19] MEDS: LACOSAMIDE IV 100 MG in SODIUM CHLORIDE 0.9% 50 ML IVPB SCH (15:04)
[2022-07-19] MEDS: DEXTROSE 5%-0.9% NACL 1,000 ML IV SCH (15:04)
[2022-07-19] MEDS: HEPARIN SODIUM,PORCINE/PF 5,000 UNIT/0.5 ML SYRINGE SQ SCH ×3 (15:05→23:14)
[2022-07-19 16:14] LABS: Glucose,Whole Blood 158 mg/dL (70-110)
[2022-07-19] MEDS: LACOSAMIDE 50 MG TABLET PO SCH ×2 (18:31→20:48)
[2022-07-19 19:43] LABS: Glucose,Whole Blood 129 mg/dL (70-110)
[2022-07-19] MEDS: levETIRAcetam 500 MG TAB PO SCH (20:49)
[2022-07-19] MEDS: ATORVASTATIN 40 MG TAB PO SCH (20:49)
[2022-07-19] MEDS: METOPROLOL TARTRATE 25 MG TAB PO SCH (20:49)
[2022-07-20 04:17] LABS: HCT 28.9 % (34.0-46.0); HGB 9.7 gm/dL (11.4-16.0); MCH 29.3 pg (25.0-35.0); MCHC 33.6 g/dL (31.0-37.0); MCV 87.2 fL (80.0-100.0); Mean Platelet Volume 10.5; Platelet Count 151 k/uL (150-450); RBC 3.31 m/uL (3.80-5.40); RDW 13.8 % (11.5-15.5); WBC 6.7 k/uL (3.8-10.6)
[2022-07-20 04:31] LABS: Calcium 8.5 mg/dL (8.4-10.2); Magnesium 2.1 mg/dL (1.6-2.3); Potassium 3.6 mmol/L (3.5-5.1)
[2022-07-20] MEDS ORDERED: POTASSIUM CHLORIDE ER 20 MEQ TAB.ER PO SCH (06:08)
[2022-07-20] MEDS: CALCIUM ACETATE 667 MG TAB PO SCH ×3 (06:12→17:33)
[2022-07-20] MEDS: SEVELAMER 800 MG TAB PO SCH ×3 (06:12→17:33)
[2022-07-20] MEDS: PANTOPRAZOLE 40 MG TABLET PO SCH (06:13)
[2022-07-20 06:49] LABS: Glucose,Whole Blood 115 mg/dL (70-110)
--- NOTE | 2022-07-20 07:33 | CT ---
EXAMINATION TYPE: CT brain wo con CT DLP: 1099.4 mGycm, Automated exposure control for dose reduction was used. DATE OF EXAM: 07/20/2022 7:17 AM COMPARISON: 06/24/2022. CLINICAL INDICATION:Female, 52 years old with history of Post stroke and seizure, AMS, chronic renal failure, post stroke (X5) and seizures TECHNIQUE: Brain: Axial CT images of the brain were obtained with coronal and sagittal reformats created and rev iewed. Contrast used: None. Oral contrast used: None. FINDINGS: Brain: Extra-axial spaces: No abnormal extra-axial fluid collections. Ventricular system: Within normal limits Cerebral parenchyma: Basal ganglia lacunar injury and left antonino are similar to prior. No acute intraparenchymal hemorrhage or mass effect. The noonan-white junction is well differentiated. Cerebellum: Scattered low-density areas suggestive of prior injuries are similar prior Mass effect: No evidence of midline shift. Intracranial vasculature: Atherosclerotic calcifications of the intracranial vessels. Soft tissues: Normal. Calvarium/osseous structures: No depressed skull fracture. Paranasal sinuses and mastoid air cells: Mild scattered paranasal sinus disease. Visualized orbits: Orbital contents are intact. IMPRESSION: Hypodensities within the left basal ganglia, left antonino and cerebellum are similar to 07/15/2022 sugge stive of prior injury. No new areas to suggest acute/subacute CVA.
[2022-07-20] MEDS: METOPROLOL TARTRATE 25 MG TAB PO SCH ×2 (08:17→20:31)
[2022-07-20] MEDS: amLODIPine 5 MG TAB PO SCH ×2 (08:17→20:31)
[2022-07-20] MEDS: levETIRAcetam 500 MG TAB PO SCH ×2 (08:17→21:24)
[2022-07-20] MEDS: HEPARIN SODIUM,PORCINE/PF 5,000 UNIT/0.5 ML SYRINGE SQ SCH ×3 (08:17→22:58)
[2022-07-20] MEDS: CLOPIDOGREL 75 MG TAB PO SCH (08:17)
[2022-07-20] MEDS: LACOSAMIDE 50 MG TABLET PO SCH ×2 (08:17→20:31)
[2022-07-20] MEDS: ZONISAMIDE 100 MG CAP PO SCH ×2 (08:18→20:38)
[2022-07-20] MEDS: DIVALPROEX SPRINKLE 125 MG CAP.SPRINK PO SCH ×5 (08:19→20:38)
[2022-07-20] MEDS: DEXTROSE 5%-0.9% NACL 1,000 ML IV SCH (08:21)
[2022-07-20] MEDS: VASCEPA 1 GM PO SCH ×2 (08:22→21:24)
--- NOTE | 2022-07-20 09:33 | P.PN ---
Subjective Progress Note Date: 07/19/22 07/19/2022: Patient was seen for a follow-up. Patient is laying comfortably in the bed. No further seizures reported. Patient continues to be very stiff. Her left side is more spastic. Awaiting MRI of the brain. 07/18/2022: Patient was seen for a follow-up. Patient initially seen by Dr. Cristhian Luevano. Please refer to his note for details. Patient is a 52-year-old female with history of seizure disorder. She has clinical status epilepticus that has resolved. She is known to our neurology service for recurrent seizures, and was last time seen by myself on 07/06/2022. A 2.5 hour EEG at that time reported generalized spikes seen along with some triphasic waves. At that time it was recommended to wean off Vimpat, continue low-dose Depakote 250 mg twice a day, Keppra 500 mg twice a day and extra 500 mg tablet postdialysis and zonisamide 100 mg daily was started. Apparently she was seen by neurologist and patient currently on Depakote 500 mg every 8 hours, zonisamide 100 mg daily, Keppra 500 mg twice a day with 500 mg postdialysis Monday. Also appears to be on Depakote 250 mg twice a day. Patient has very slow mentation. Per speech therapist note, patient has been made nothing by mouth, patient not able to swallow medications. She has very delayed responses and delayed speech. Poor oral phase. Some of her workup during his hospital visit consisted of : TSH: 0.708 Initial Valproic acid is 127 and repeated is 73.8 Keppra level is 7.9 CT of the head which is reported as hypodensity within the brainstem and within the left basal ganglia could be ischemic changes of and determine age. Consider follow-up MRI. I personally reviewed CT head I felt the patient had the basal ganglia changes on her prior admission and it doesn't look acute or subacute in my opinion. Regarding the brainstem CT is not the best study for brainstem but she does have hypodensity but does not look like acute or subacute in my opinion as well. CT angiography of the head and neck was reported as irregular moderate plaque at the left carotid artery bifurcation and estimated 75% stenosis origin of the left ICA carotid artery. There is approximately similar 35% stenosis right internal carotid artery. No significant intercranial and angiographic abnormality. Carotid duplex is reported as no hemodynamically significant internal carotid artery stenosis on either side. Limited overall assessment on the left side including resolution of the left PASCUAL in the left vertebral artery due to the patient condition. Plasma lactic acid venous 3.0 on presentation and improved to 1.6. EEG on 07/16/2022 is abnormal. The burst suppression is likely due to medication effect (Versed and Propofol). The background slowing suggestive of moderate encephalopathy. 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 There is no focal slowing or seizure detected during the study. Urinalysis is possible suggestive of acute urinary tract infection Urine tox screen is valproic acids 127 and the normal supposed to be between 50- 120. Her level is slightly supratherapeutic Objective - Vital Signs Vital signs: Vital Signs Temp 97.8 F 07/19/22 16:39 Pulse 90 07/19/22 16:39 Resp 19 07/19/22 16:39 BP 141/57 07/19/22 16:39 Pulse Ox 99 07/19/22 16:00 FiO2 35 07/17/22 18:05 Intake & Output 07/18/22 07/19/22 07/19/22 18:59 06:59 18:59 Intake Total 370.534 255.298 4586.667 Output Total 0 0 3200 Balance 370.534 907.400 -1924.333 Weight 78.8 kg 78 kg Intake: IV 310 870 790 Dextrose 5%-0.9% NaCl 1, 100 600 300 000 ml @ 50 mls/hr IV . Q20H [facility] Rx#:[id number] Lacosamide IV 100 mg In 50 Sodium Chloride 0.9% 50 ml @ 100 mls/hr IVPB BID NEELIMA Rx#:[id number] NS @ KVO 110 120 90 levETIRAcetam IV 500 mg 100 100 400 In Sodium Chloride 0.9% 100 ml @ 400 mls/hr IVPB Q12H [facility] Rx#:[id number] Intake, IV Titration 60.534 37.400 35.667 Amount Clevidipine Butyrate 25 60.534 37.400 35.667 mg In Empty Bag 1 bag @ 1 MG/HR 2 mls/hr IV .Q24H [facility]IMA Rx#:[id number] Oral 150 Hemodialysis 300 Output: Urine 0 0 0 Hemodialysis 3200 ABP, PAP, CO, CI - Last Documented Arterial Blood Pressure 154/60 - Exam Patient is awake, more alert, and better response time to answer questions. Patient has left hemiparesis, but the right side is also somewhat weak. Tone is increased. Bilateral Babinski. - Labs CBC & Chem 7: 07/20/22 04:00 07/20/22 04:00 Labs: Abnormal Lab Results - Last 24 Hours (Table) 07/19/22 07/19/22 07/19/22 Range/Units 04:00 04:00 04:00 RBC 3.29 L (3.80-5.40) m/uL Hgb 9.2 L (11.4-16.0) gm/dL Hct 29.4 L (34.0-46.0) % BUN 38 H (7-17) mg/dL Creatinine 10.60 H* (0.52-1.04) mg/dL POC Glucose (mg/dL) (70-110) mg/dL TIBC 155 L (228-460) ug/dL Transferrin 111.0 L (204.0-354.0) mg/dL Ferritin 1075.0 H (10.0-291.0) ng/mL 07/19/22 07/19/22 Range/Units 11:19 16:13 RBC (3.80-5.40) m/uL Hgb (11.4-16.0) gm/dL Hct (34.0-46.0) % BUN (7-17) mg/dL Creatinine (0.52-1.04) mg/dL POC Glucose (mg/dL) 120 H 158 H (70-110) mg/dL TIBC (228-460) ug/dL Transferrin (204.0-354.0) mg/dL Ferritin (10.0-291.0) ng/mL Microbiology - Last 24 Hours (Table) 07/15/22 14:00 Blood Culture - Preliminary Blood No Growth after 96 hours 07/15/22 14:15 Blood Culture - Preliminary Blood No Growth after 96 hours Assessment and Plan Assessment: This is a 52-year-old woman with medical refractory epilepsy, VNS who presents to the hospital numerous times for breakthrough seizures. Clinical status epilepticus---resolved. Her epilepsy is not controlled. Is compliant with her medications. 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 History of multiple strokes. CT head revealed chronic hypodensity of left basal ganglia and bilateral cerebellum. Also a questionable area of hypodensity in the left antonino, which could be artifactual. Dysphagia. Patient initially failed swallow studies, but now she has cleared swallow. Rule out CVA. Probable acute UTI History of stroke with residual left hemiparesis. Patient states she has history of 5 strokes in the past. Diabetes mellitus Dnd-stage renal is on dialysis Hypertension Plan: * Await MRI of the brain to evaluate for an acute stroke. Apparently the VNS has been cleared for MRI. Patient scheduled for MRI tomorrow morning. * Dr. Luevano has increased Zonegran from 100mg daily to 100mg bid. Patient able to take medications by mouth. Patient resumed back on Depakote 500 mg 3 times a day and Depakote 250 mg twice a day. Also on Keppra 500 mg every 12 hours and Vimpat 100 mg [address] a day[address]. Luevano has decreased her Vimpat from 150mg bid to 100mg bid since on last admission it was felt she had primary generalized epilepsy and Vimpat was not great drug for primary generalized epilepsy. * Zonisamide level 10 mcg per mL (10-40), Depakote 73.8, Keppra 7.9 (3-60). Repeat Depakote level. * I highly recommend patient to follow-up with epileptilologist since has frequent seizures/medical refractory epilepsy. Consider Epidiolex for control of seizures. * Patient has 2.5 hour EEG in our facility on 07/06/2022 (prior admission) and preliminary was reported as runs of sharp and slow waves or spike and slow wave at 2-3 Hz lasting 1 -1.5 seconds suggestive of primary generalized epilepsy. No official report yet. * Left ICA stenosis 75% on CTA but on carotid duplex no significant stenosis seen. Vascular surgery input appreciated. No indication for surgery. * Patient is on home dose Plavix 75mg daily and Lipitor 40mg qhs which is sufficient for secondary stroke prophylaxis. * PT and OT are consulted. * Will defer the rest of medical management to primary team. * For DVT prophylaxis: on subq heparin.
--- NOTE | 2022-07-20 11:33 | P.PN ---
Subjective Patient is seen in follow-up for end-stage renal disease. She is maintained on hemodialysis on Monday schedule. No problems with dialysis yesterday. Resting in bed. Hemodynamically stable. On pured diet. Vital signs are stable. General: No acute distress. HEENT: Head exam is unremarkable. LUNGS: Breath sounds decreased. HEART: Rate and Rhythm are regular. ABDOMEN: Soft, no distention. EXTREMITITES: No edema. Objective - Vital Signs Vital signs: Vital Signs Temp 98.0 F 07/20/22 08:00 Pulse 81 07/20/22 09:00 Resp 12 07/20/22 09:00 BP 139/102 07/20/22 00:00 Pulse Ox 94 L 07/20/22 09:00 FiO2 35 07/17/22 18:05 Intake & Output 07/19/22 07/20/22 07/20/22 18:59 06:59 18:59 Intake Total 1455.667 50 450 Output Total 3200 0 0 Balance -1744.333 50 450 Weight 74.8 kg Intake: IV 820 50 Dextrose 5%-0.9% NaCl 1, 300 000 ml @ 50 mls/hr IV . Q20H [facility] Rx#:[id number] NS @ KVO 120 50 levETIRAcetam IV 500 mg 400 In Sodium Chloride 0.9% 100 ml @ 400 mls/hr IVPB Q12H [facility]A Rx#:[id number] Intake, IV Titration 35.667 Amount Clevidipine Butyrate 25 35.667 mg In Empty Bag 1 bag @ 1 MG/HR 2 mls/hr IV .Q24H [facility]IMA Rx#:[id number] Oral 300 450 Hemodialysis 300 Output: Urine 0 0 0 Hemodialysis 3200 Other: # Bowel Movements 1 1 ABP, PAP, CO, CI - Last Documented Arterial Blood Pressure 115/89 - Labs CBC & Chem 7: 07/20/22 04:00 07/20/22 04:00 Labs: Abnormal Lab Results - Last 24 Hours (Table) 07/19/22 07/19/22 07/19/22 Range/Units 04:00 16:13 19:41 RBC (3.80-5.40) m/uL Hgb (11.4-16.0) gm/dL Hct (34.0-46.0) % Sodium (137-145) mmol/L BUN (7-17) mg/dL Creatinine (0.52-1.04) mg/dL Glucose (74-99) mg/dL POC Glucose (mg/dL) 158 H 129 H (70-110) mg/dL TIBC 155 L (228-460) ug/dL Transferrin 111.0 L (204.0-354.0) mg/dL Ferritin 1075.0 H (10.0-291.0) ng/mL 07/20/22 07/20/22 07/20/22 Range/Units 04:00 04:00 06:48 RBC 3.31 L (3.80-5.40) m/uL Hgb 9.7 L (11.4-16.0) gm/dL Hct 28.9 L (34.0-46.0) % Sodium 136 L (137-145) mmol/L BUN 21 H (7-17) mg/dL Creatinine 6.95 H (0.52-1.04) mg/dL Glucose 107 H (74-99) mg/dL POC Glucose (mg/dL) 115 H (70-110) mg/dL TIBC (228-460) ug/dL Transferrin (204.0-354.0) mg/dL Ferritin (10.0-291.0) ng/mL Microbiology - Last 24 Hours (Table) 07/15/22 14:00 Blood Culture - Preliminary Blood No Growth after 96 hours 07/15/22 14:15 Blood Culture - Preliminary Blood No Growth after 96 hours Assessment and Plan Plan: Assessment: 1. End-stage renal disease maintained on hemodialysis on Monday schedule. 2. Seizures. Being followed by neurology. 3. Left ICA stenosis. Seen by vascular surgery. 4. Hypertension with chronic kidney disease. Stable. 5. Chronic kidney disease mineral bone disease maintained on PhosLo and Renvela. 6. Anemia of chronic kidney disease. Iron replete. Plan: Hemodialysis today. Check phosphorus level. Add Aranesp.
--- NOTE | 2022-07-20 12:04 | P.PN ---
Subjective Progress Note Date: 07/20/22 this is a 52-year-old female with history of chronic seizure disorder, her seizures have been recently poorly controlled, patient follows up with the neurologist/Dr. Ohara for her seizures. Patient was brought into the ER yesterday with altered mental status, intermittent episodes of nausea and vomiting. Apparently the patient was dropped off yesterday at the dialysis unit/clinic, and when she got there patient became unresponsive, she did not notice to have any seizure-like activity. She was not speaking or answering any questions. Patient was unable to get her dialysis treatment, hence the patient was brought in by EMS to the ER yesterday. Apparently the patient was admitted, and shortly after she was admitted she had recurrent episodes of seizures,/status epilepticus.that a team responded to a call from the nurse on the floor, patient was evaluated by the hospitalist, did not seem to follow any commands or make any eye contact. And at one point it was felt that the patient had status epilepticus. Apparently the patient had to be intubated to protect her airways, she was admitted to the ICU, and the plan was to consider transferring the patient to [facility] because of her status epilepticus and this was based upon the recommendation of the neurologist who was notified about this patient. Patient was placed on multiple medications for her seizures, and these will be noted below. Today I evaluated the patient while she is on mechanical ventilation, and I recommended that we start considering weaning and stopping her Versed which is 5 mg per hour, he is also on propofol at 20 mcg/kg/m, and will possibly extubate the patient. She was evaluated by the neurologist, and he feels that the seizures seem to be presently under control, and would be worthwhile giving the patient a weaning trial and possibly extubation. Her assist-control rate is 14 tidal volume 400 FiO2 30 PEEP of 5. ABG from previous settings was noted she had a pO2 of 165 pCO2 24 pH of 7.60, h owever since then the ventilator settings have been really adjusted. Her last seizure was reported at [address] of the brain last night showed subacute lacunar infarct, and suspicious brainstem lesion.however the neurologist evaluated the CT of the brain, and did not feel that this is a worrisome finding.patient is getting IV Keppra loading dose, she is also getting Versed and propofol, and she was givenDepakote twice a day, patient is also receiving [id number] mg IV twice a day.in addition the patient is on zonisamide 100 mg by mouth twice a dayobviously the patient is maximized on all antiseizure medications, and I'm hoping her seizures are under control at present, will give the patient a trial of weaning and possibly extubationobviously no further plans to transfer the patient at this point. Reevaluated today on 07/17/22, patient remains in the ICU, intubated and mechanically ventilated, she is on assist control rate of 20, volume 400 FiO2 30% and PEEP of 5.ABG showed a pO2 of 121 pCO2 36 pH of 7.48. WBC count is 5.6 hemoglobin is 10.9. Electrolytes are basically unremarkable,BUN is 20 creatinine 7.22. Patient is a renal patient, and she is on hemodialysis. Patient is on propofol at 20 mcg/kg/m which I have discontinued this morning, he is also on clevidipine at 6 mg per hour. After stopping her propofol, the patient seems to be appropriate, she is following instructions, and I plan wean this patient today using pressure support with CPAP, or may use IMV with press ure support leading to CPAP. Overall the patient is doing better, and again I plan to wean and extubate, no seizure activities in the last 24 hours.chest x- ray is basically unremarkable today. Reevaluated today on 07/18/22, patient remains in the ICU, she was extubated yesterday, she tolerated the extubation well. She is now on 2 L nasal cannula, not in distress, she is requiring clevidipine elevated blood pressure, hence I started the patient on metoprolol 50 mg twice a day and amlodipine 5 mg by mouth twice a day. No seizures noted over the last 24 hours, patient seems to be generally weak, not in any form of respiratory distress. Labs today are basically unremarkable except for creatinine of 8.95, and I believe the patient will likely be hemodialysis today. Chest x-ray showed no evidence of any active disease. The patient is seen today 07/19/2022 in follow-up in the intensive care unit. She is currently sitting up in bed. Awake and alert in no acute distress. She is maintaining good O2 saturation in the 90s on 2 L/m per nasal cannula. She has D5W with normal saline at 50 mL per hour. She is still requiring a clevidipine drip at 2 mg per hour for hypertension. She is receiving hemodialysis. Last treatment on July 16 they removed 1.6 L. Chest x-ray revealed no acute pulmonary process. Blood cultures revealed no growth. Urine culture revealed no growth. Sputum culture revealed no growth. White count 6.6. Hemoglobin 9.2. Platelets 154. Sodium 139. Potassium 4.3. BUN 38. Creatinine 10.6. She is currently on amlodipine and Lopressor. She did not pass a swallow evaluation yesterday. She remains nothing by mouth. To be reevaluated today as she is more awake and alert. No further seizure activity. The patient is seen today 07/20/2022 in follow-up in the intensive care unit. She is awake and alert in no acute distress. Sitting up in bed. Maintaining O2 saturation in the 90s on room air. No IV fluids currently. Follow-up computed tomography scan revealed hypodensities within the left basal ganglia, left antonino and cerebellum which were similar compared to 07/15/2022, suggestive of prior injury. No new areas to suggest an acute/subacute CVA. She is swallowing her pills without choking. She is 68. Diet with one-to-one supervision. Blood cultures revealed no growth. Urine culture no growth. Sputum culture no growth. White count 6.7. Hemoglobin 9.7. Platelets 151. Sodium 136. Potassium 3.6. BUN 21 creatinine 6.95. Glucose 107. Blood pressures improved. Remains off clevidipine. Heparin for DVT prophylaxis. No seizures. Objective - Vital Signs Vital signs: Vital Signs Temp 98.0 F 07/20/22 08:00 Pulse 81 07/20/22 09:00 Resp 12 07/20/22 09:00 BP 139/102 07/20/22 00:00 Pulse Ox 94 L 07/20/22 09:00 FiO2 35 07/17/22 18:05 Intake & Output 07/19/22 07/20/22 07/20/22 18:59 06:59 18:59 Intake Total 1455.667 50 450 Output Total 3200 0 0 Balance -1744.333 50 450 Weight 74.8 kg Intake: IV 820 50 Dextrose 5%-0.9% NaCl 1, 300 000 ml @ 50 mls/hr IV . Q20H NEELIMA Rx#:[id number] NS @ KVO 120 50 levETIRAcetam IV 500 mg 400 In Sodium Chloride 0.9% 100 ml @ 400 mls/hr IVPB Q12H NEELIMA Rx#:[id number] Intake, IV Titration 35.667 Amount Clevidipine Butyrate 25 35.667 mg In Empty Bag 1 bag @ 1 MG/HR 2 mls/hr IV .Q24H NEELIMA Rx#:[id number] Oral 300 450 Hemodialysis 300 Output: Urine 0 0 0 Hemodialysis 3200 Other: # Bowel Movements 1 1 ABP, PAP, CO, CI - Last Documented Arterial Blood Pressure 115/89 - Exam GENERAL EXAM: Alert, slow to respond, 52-year-old female, on room air, comfortable in no apparent distress. HEAD: Normocephalic. EYES: Normal reaction of pupils, equal size. NOSE: Clear with pink turbinates. THROAT: No erythema or exudates. NECK: No masses, no JVD. CHEST: No chest wall deformity. LUNGS: Equal air entry with no crackles, wheeze, rhonchi or dullness. CVS: S1 and S2 normal with no audible murmur, regular rhythm. ABDOMEN: No hepatosplenomegaly, normal bowel sounds, no guarding or rigidity. SPINE: No scoliosis or deformity SKIN: No rashes CENTRAL NERVOUS SYSTEM: No focal deficits, tone is normal in all 4 extremities. EXTREMITIES: There is 1+ peripheral edema. No clubbing, no cyanosis. Peripheral pulses are intact. - Labs CBC & Chem 7: 07/20/22 04:00 07/20/22 04:00 Labs: Abnormal Lab Results - Last 24 Hours (Table) 07/19/22 07/19/22 07/19/22 Range/Units 04:00 16:13 19:41 RBC (3.80-5.40) m/uL Hgb (11.4-16.0) gm/dL Hct (34.0-46.0) % Sodium (137-145) mmol/L BUN (7-17) mg/dL Creatinine (0.52-1.04) mg/dL Glucose (74-99) mg/dL POC Glucose (mg/dL) 158 H 129 H (70-110) mg/dL TIBC 155 L (228-460) ug/dL Transferrin 111.0 L (204.0-354.0) mg/dL Ferritin 1075.0 H (10.0-291.0) ng/mL 07/20/22 07/20/22 07/20/22 Range/Units 04:00 04:00 06:48 RBC 3.31 L (3.80-5.40) m/uL Hgb 9.7 L (11.4-16.0) gm/dL Hct 28.9 L (34.0-46.0) % Sodium 136 L (137-145) mmol/L BUN 21 H (7-17) mg/dL Creatinine 6.95 H (0.52-1.04) mg/dL Glucose 107 H (74-99) mg/dL POC Glucose (mg/dL) 115 H (70-110) mg/dL TIBC (228-460) ug/dL Transferrin (204.0-354.0) mg/dL Ferritin (10.0-291.0) ng/mL Microbiology - Last 24 Hours (Table) 07/15/22 14:00 Blood Culture - Preliminary Blood No Growth after 96 hours 07/15/22 14:15 Blood Culture - Preliminary Blood No Growth after 96 hours Assessment and Plan Assessment: Status epilepticus. Presently under control. Patient required intubation and mechanical ventilation to protect her airways. Extubated on 07/17/22. Currently on room air. No further seizure activity. Acute hypoxic respiratory failure secondary to status epilepticus, unable to protect her airways, recovered and on room air History of CVA and residual left hemiparesis Type 2 diabetes. End-stage renal disease, on hemodialysis Benign essential hypertension Dyslipidemia Degenerative joint disease Plan: The patient was seen and evaluated CT scan of the brain, labs and medications reviewed Transfer to the regular medical floor without telemetry Continue seizure precautions Continue aspiration precautions Increase her activity as tolerated We will continue to follow I have personally seen and examined the patient, performed the documentation and the assessment and plan as written. Number of minutes spent on the visit: 10.
[2022-07-20 12:08] LABS: Glucose,Whole Blood 166 mg/dL (70-110)
[2022-07-20] MEDS: DARBEPOETIN ALFA 40 MCG/0.4 ML SYRINGE SQ SCH (14:44)
[2022-07-20] MEDS: ATORVASTATIN 40 MG TAB PO SCH (20:31)
[2022-07-20 21:00] LABS: Glucose,Whole Blood 134 mg/dL (70-110)
[2022-07-21 06:24] LABS: Glucose,Whole Blood 130 mg/dL (70-110)
[2022-07-21] MEDS: amLODIPine 5 MG TAB PO SCH ×2 (09:21→22:01)
[2022-07-21] MEDS: CALCIUM ACETATE 667 MG TAB PO SCH ×3 (09:21→16:55)
[2022-07-21] MEDS: HEPARIN SODIUM,PORCINE/PF 5,000 UNIT/0.5 ML SYRINGE SQ SCH ×2 (09:21→16:57)
[2022-07-21] MEDS: METOPROLOL TARTRATE 25 MG TAB PO SCH ×2 (09:21→22:02)
[2022-07-21] MEDS: CLOPIDOGREL 75 MG TAB PO SCH (09:21)
[2022-07-21] MEDS: PANTOPRAZOLE 40 MG TABLET PO SCH (09:22)
[2022-07-21] MEDS: LACOSAMIDE 50 MG TABLET PO SCH ×2 (09:22→22:01)
[2022-07-21] MEDS: SEVELAMER 800 MG TAB PO SCH ×3 (09:23→16:56)
[2022-07-21] MEDS: DIVALPROEX SPRINKLE 125 MG CAP.SPRINK PO SCH ×4 (09:24→22:03)
[2022-07-21] MEDS: VASCEPA 1 GM PO SCH ×2 (09:26→22:24)
[2022-07-21] MEDS: ZONISAMIDE 100 MG CAP PO SCH ×2 (09:27→22:03)
[2022-07-21] MEDS: levETIRAcetam 500 MG TAB PO SCH ×2 (09:47→22:47)
[2022-07-21 10:35] LABS: Basophils # (A) 0.05 X 10*3/uL (0.00-0.10); Basophils % (A) 0.6 %; Eosinophils # (A) 0.12 X 10*3/uL (0.04-0.35); Eosinophils % (A) 1.6 %; HCT 30.1 % (37.2-46.3); HGB 9.4 g/dL (12.0-15.0); Immature Grans, Automated 0.4 %; Lymphocytes % (A) 28.5 %; MCH 28.4 pg (27.0-32.0); MCHC 31.2 g/dL (32.0-37.0); MCV 90.9 fL (80.0-97.0); Mean Platelet Volume 12.5 fL (9.5-12.2); Monocytes # (A) 0.57 X 10*3/uL (0.20-1.00); Monocytes % (A) 7.4 %; NRBC Per 100 WBC 0 /100 WBCS (0.0-0.0); Neutrophils # (A) 4.76 X 10*3/uL (1.80-7.70); Neutrophils % (A) 61.5 %; Platelet Count 177 X 10*3/uL (140-440); RBC 3.31 X 10*6/uL (4.10-5.20); WBC 7.73 X 10*3/uL (4.50-10.00)
--- NOTE | 2022-07-21 11:18 | P.PN ---
Subjective Progress Note Date: 07/20/22 07/20/2022: Patient was seen for a follow-up. Patient states she is feeling much better. No seizures. Denies headache. 07/19/2022: Patient was seen for a follow-up. Patient is laying comfortably in the bed. No further seizures reported. Patient continues to be very stiff. Her left side is more spastic. Awaiting MRI of the brain. 07/18/2022: Patient was seen for a follow-up. Patient initially seen by Dr. Cristhian Luevano. Please refer to his note for details. Patient is a 52-year-old female with history of seizure disorder. She has clinical status epilepticus that has resolved. She is known to our neurology service for recurrent seizures, and was last time seen by myself on 07/06/2022. A 2.5 hour EEG at that time reported generalized spikes seen along with some triphasic waves. At that time it was recommended to wean off Vimpat, continue low-dose Depakote 250 mg twice a day, Keppra 500 mg twice a day and extra 500 mg tablet postdialysis and zonisamide 100 mg daily was started. Apparently she was seen by neurologist and patient currently on Depakote 500 mg every 8 hours, zonisamide 100 mg daily, Keppra 500 mg twice a day with 500 mg postdialysis Monday. Also appears to be on Depakote 250 mg twice a day. Patient has very slow mentation. Per speech therapist note, patient has been made nothing by mouth, patient not able to swallow medications. She has very delayed responses and delayed speech. Poor oral phase. Some of her workup during his hospital visit consisted of : TSH: 0.708 Initial Valproic acid is 127 and repeated is 73.8 Keppra level is 7.9 CT of the head which is reported as hypodensity within the brainstem and within the left basal ganglia could be ischemic changes of and determine age. Consider follow-up MRI. I personally reviewed CT head I felt the patient had the basal ganglia changes on her prior admission and it doesn't look acute or subacute in my opinion. Regarding the brainstem CT is not the best study for brainstem but she does have hypodensity but does not look like acute or subacute in my opinion as well. CT angiography of the head and neck was reported as irregular moderate plaque at the left carotid artery bifurcation and estimated 75% stenosis origin of the left ICA carotid artery. There is approximately similar 35% stenosis right internal carotid artery. No significant intercranial and angiographic abnormality. Carotid duplex is reported as no hemodynamically significant internal carotid artery stenosis on either side. Limited overall assessment on the left side including resolution of the left PASCUAL in the left vertebral artery due to the patient condition. Plasma lactic acid venous 3.0 on presentation and improved to 1.6. EEG on 07/16/2022 is abnormal. The burst suppression is likely due to medication effect (Versed and Propofol). The background slowing suggestive of moderate encephalopathy. 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 There is no focal slowing or seizure detected during the study. Urinalysis is possible suggestive of acute urinary tract infection Urine tox screen is valproic acids 127 and the normal supposed to be between 50- 120. Her level is slightly supratherapeutic Objective - Vital Signs Vital signs: Vital Signs Temp 98.1 F 07/21/22 08:00 Pulse 86 07/21/22 08:00 Resp 16 07/21/22 09:31 BP 155/89 07/21/22 08:00 Pulse Ox 95 07/21/22 08:00 FiO2 35 07/17/22 18:05 Intake & Output 07/20/22 07/21/22 07/21/22 18:59 06:59 18:59 Intake Total 1250 Output Total 700 Balance 550 Weight 74.8 kg 71.5 kg Intake: Oral 950 Hemodialysis 300 Output: Urine 0 Hemodialysis 700 Other: Voiding Method Indwelling Catheter # Voids 1 # Bowel Movements 1 1 ABP, PAP, CO, CI - Last Documented Arterial Blood Pressure 115/89 - Exam Patient is awake, more alert, and better response time to answer questions. Speech and language functions appears normal. On muscle strength testing (right/left) deltoid 5-/3-4-, biceps 5/4, triceps 5/4, traveling accountant 4+/4+. In the lower extremities hip flexion 3+/to, ankle dorsiflexion 4-/1-2. Patient has bilateral Babinski. - Labs CBC & Chem 7: 07/21/22 07:00 07/20/22 04:00 Labs: Abnormal Lab Results - Last 24 Hours (Table) 07/20/22 07/20/22 07/21/22 Range/Units 12:07 20:59 06:24 RBC (4.10-5.20) X 10*6/uL Hgb (12.0-15.0) g/dL Hct (37.2-46.3) % MCHC (32.0-37.0) g/dL MPV (9.5-12.2) fL POC Glucose (mg/dL) 166 H 134 H 130 H (70-110) mg/dL 07/21/22 Range/Units 07:00 RBC 3.31 L (4.10-5.20) X 10*6/uL Hgb 9.4 L (12.0-15.0) g/dL Hct 30.1 L (37.2-46.3) % MCHC 31.2 L (32.0-37.0) g/dL MPV 12.5 H (9.5-12.2) fL POC Glucose (mg/dL) (70-110) mg/dL Microbiology - Last 24 Hours (Table) 07/15/22 14:15 Blood Culture - Preliminary Blood No Growth after 120 hours 07/15/22 14:00 Blood Culture - Preliminary Blood No Growth after 120 hours Assessment and Plan Assessment: This is a 52-year-old woman with medically refractory epilepsy, VNS who presents to the hospital numerous times for breakthrough seizures. Clinical status epilepticus---resolved. Her epilepsy is not controlled. Is compliant with her medications. 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 History of multiple strokes. CT head revealed chronic hypodensity of left basal ganglia and bilateral cerebellum. Also a questionable area of hypodensity in the left antonino, which could be artifactual. Dysphagia. Patient initially failed swallow studies, but now she has cleared swallow. No evidence of CVA on CT head. Probable acute UTI History of stroke with residual left hemiparesis. Patient states she has history of 5 strokes in the past. Diabetes mellitus End-stage renal is on dialysis Hypertension Plan: * Nurse informed that patient cannot have MRI of the brain because of VNS. Patient's VNS is not compatible with MRI machine in [facility]. Repeat CT head was done. Revealed no acute ischemic process. No evidence of stroke in the brainstem. * Dr. Luevano has increased Zonegran from 100mg daily to 100mg bid. * Repeat Depakote level 92. Patient has slow mentation. We will decrease Depakote to 500 mg 3 times a day. Her Depakote level was highly elevated 127 on arrival. * Continue Keppra 500 mg every 12 hours * Vimpat 100 mg twice a day. Dr. Luevano has decreased her Vimpat from 150mg bid to 100mg bid since on last admission it was felt she had primary generalized epilepsy and Vimpat was not great drug for primary generalized epilepsy. * Zonisamide level 10 mcg per mL (10-40), Depakote 73.8, Keppra 7.9 (3-60). Repeat Depakote level. * I highly recommend patient to follow-up with epileptilologist since has frequent seizures/medical refractory epilepsy. Consider Epidiolex for control of seizures. * Patient has 2.5 hour EEG in our facility on 07/06/2022 (prior admission) and preliminary was reported as runs of sharp and slow waves or spike and slow wave at 2-3 Hz lasting 1 -1.5 seconds suggestive of primary generalized epilepsy. No official report yet. * Left ICA stenosis 75% on CTA but on carotid duplex no significant stenosis seen. Vascular surgery input appreciated. No indication for surgery. * Patient is on home dose Plavix 75mg daily and Lipitor 40mg qhs which is sufficient for secondary stroke prophylaxis. * PT and OT are consulted. * Will defer the rest of medical management to primary team. * For DVT prophylaxis: on subq heparin.
[2022-07-21 11:22] LABS: Glucose,Whole Blood 204 mg/dL (70-110)
[2022-07-21 11:33] LABS: Anion Gap 13.1 mmol/L (10.00-18.00); BUN/Creat Ratio 3.81 Ratio (12.00-20.00); Blood Urea Nitrogen 23.9 mg/dL (9.0-27.0); Calcium 9.2 mg/dL (8.7-10.3); Carbon Dioxide 26.1 mmol/L (20.0-27.5); Non-African American GFR(CKD) 6.9 (60.0-200.0); Potassium 3.9 mmol/L (3.5-5.5)
--- NOTE | 2022-07-21 11:39 | P.PN ---
Subjective Patient is seen in follow-up for end-stage renal disease. She is maintained on hemodialysis on Monday schedule. No problems with dialysis yesterday. Resting in bed. Hemodynamically stable. On pured diet. Wants to go home. Vital signs are stable. General: No acute distress. HEENT: Head exam is unremarkable. LUNGS: Breath sounds decreased. HEART: Rate and Rhythm are regular. ABDOMEN: Soft, no distention. EXTREMITITES: No edema. Objective - Vital Signs Vital signs: Vital Signs Temp 98.1 F 07/21/22 08:00 Pulse 86 07/21/22 08:00 Resp 16 07/21/22 09:31 BP 155/89 07/21/22 08:00 Pulse Ox 95 07/21/22 08:00 FiO2 35 07/17/22 18:05 Intake & Output 07/20/22 07/21/22 07/21/22 18:59 06:59 18:59 Intake Total 1250 Output Total 700 Balance 550 Weight 74.8 kg 71.5 kg Intake: Oral 950 Hemodialysis 300 Output: Urine 0 Hemodialysis 700 Other: Voiding Method Indwelling Catheter # Voids 1 # Bowel Movements 1 1 ABP, PAP, CO, CI - Last Documented Arterial Blood Pressure 115/89 - Labs CBC & Chem 7: 07/21/22 07:00 07/21/22 07:00 Labs: Abnormal Lab Results - Last 24 Hours (Table) 07/20/22 07/20/22 07/21/22 Range/Units 12:07 20:59 06:24 RBC (4.10-5.20) X 10*6/uL Hgb (12.0-15.0) g/dL Hct (37.2-46.3) % MCHC (32.0-37.0) g/dL MPV (9.5-12.2) fL Creatinine (0.6-1.5) mg/dL Est GFR (CKD-EPI)AfAm (60.0-200.0) Est GFR (CKD-EPI)NonAf (60.0-200.0) BUN/Creatinine Ratio (12.00-20.00) Ratio Glucose (70-110) mg/dL POC Glucose (mg/dL) 166 H 134 H 130 H (70-110) mg/dL 07/21/22 07/21/22 07/21/22 Range/Units 07:00 07:00 11:20 RBC 3.31 L (4.10-5.20) X 10*6/uL Hgb 9.4 L (12.0-15.0) g/dL Hct 30.1 L (37.2-46.3) % MCHC 31.2 L (32.0-37.0) g/dL MPV 12.5 H (9.5-12.2) fL Creatinine 6.3 H (0.6-1.5) mg/dL Est GFR (CKD-EPI)AfAm 8.0 L (60.0-200.0) Est GFR (CKD-EPI)NonAf 6.9 L (60.0-200.0) BUN/Creatinine Ratio 3.81 L (12.00-20.00) Ratio Glucose 126 H (70-110) mg/dL POC Glucose (mg/dL) 204 H (70-110) mg/dL Microbiology - Last 24 Hours (Table) 07/15/22 14:15 Blood Culture - Preliminary Blood No Growth after 120 hours 07/15/22 14:00 Blood Culture - Preliminary Blood No Growth after 120 hours Assessment and Plan Plan: Assessment: 1. End-stage renal disease maintained on hemodialysis on Monday schedule. 2. Seizures. Being followed by neurology. 3. Left ICA stenosis. Seen by vascular surgery. 4. Hypertension with chronic kidney disease. Stable. 5. Chronic kidney disease mineral bone disease maintained on PhosLo and Renvela. 6. Anemia of chronic kidney disease. Iron replete. On Aranesp. Plan: Hemodialysis tomorrow. Check phosphorus level.
--- NOTE | 2022-07-21 15:44 | P.PN ---
Subjective Progress Note Date: 07/21/22 Principal diagnosis: Status epilepticus, acute respiratory failure this is a 52-year-old female with history of chronic seizure disorder, her seizures have been recently poorly controlled, patient follows up with the neurologist/Dr. Ohara for her seizures. Patient was brought into the ER yesterday with altered mental status, intermittent episodes of nausea and vomiting. Apparently the patient was dropped off yesterday at the dialysis unit/clinic, and when she got there patient became unresponsive, she did not notice to have any seizure-like activity. She was not speaking or answering any questions. Patient was unable to get her dialysis treatment, hence the patient was brought in by EMS to the ER yesterday. Apparently the patient was admitted, and shortly after she was admitted she had recurrent episodes of seizures,/status epilepticus.that a team responded to a call from the nurse on the floor, patient was evaluated by the hospitalist, did not seem to follow any commands or make any eye contact. And at one point it was felt that the patient had status epilepticus. Apparently the patient had to be intubated to protect her airways, she was admitted to the ICU, and the plan was to consider transferring the patient to [facility] because of her status epilepticus and this was based upon the recommendation of the neurologist who was notified about this patient. Patient was placed on multiple medications for her seizures, and these will be noted below. Today I evaluated the patient while she is on mechanical ventilation, and I recommended that we start considering weaning and stopping her Versed which is 5 mg per hour, he is also on propofol at 20 mcg/kg/m, and will possibly extubate the patient. She was evaluated by the neurologist, and he feels that the seizures seem to be presently under control, and would be worthwhile giving the patient a weaning trial and possibly extubation. Her assist-control rate is 14 tidal volume 400 FiO2 30 PEEP of 5. ABG from previous settings was noted she had a pO2 of 165 pCO2 24 pH of 7.60, however since then the ventilator settings have been really adjusted. Her last seizure was reported at [address] of the brain last night showed subacute lacunar infarct, and suspicious brainstem lesion.however the neurologist evaluated the CT of the brain, and did not feel that this is a worrisome findi ng.patient is getting IV Keppra loading dose, she is also getting Versed and propofol, and she was givenDepakote twice a day, patient is also receiving [id number] mg IV twice a day.in addition the patient is on zonisamide 100 mg by mouth twice a dayobviously the patient is maximized on all antiseizure medications, and I'm hoping her seizures are under control at present, will give the patient a trial of weaning and possibly extubationobviously no further plans to transfer the patient at this point. Reevaluated today on 07/17/22, patient remains in the ICU, intubated and mechanically ventilated, she is on assist control rate of 20, volume 400 FiO2 30% and PEEP of 5.ABG showed a pO2 of 121 pCO2 36 pH of 7.48. WBC count is 5.6 hemoglobin is 10.9. Electrolytes are basically unremarkable,BUN is 20 creatinine 7.22. Patient is a renal patient, and she is on hemodialysis. Patient is on propofol at 20 mcg/kg/m which I have discontinued this morning, he is also on clevidipine at 6 mg per hour. After stopping her propofol, the patient seems to be appropriate, she is following instructions, and I plan wean this patient today using pressure support with CPAP, or may use IMV with pressure support leading to CPAP. Overall the patient is doing better, and again I plan to wean and extubate, no seizure activities in the last 24 hours.chest x-ray is basically unremarkable today. Reevaluated today on 07/18/22, patient remains in the ICU, she was extubated yesterday, she tolerated the extubation well. She is now on 2 L nasal cannula, not in distress, she is requiring clevidipine elevated blood pressure, hence I started the patient on metoprolol 50 mg twice a day and amlodipine 5 mg by mouth twice a day. No seizures noted over the last 24 hours, patient seems to be generally weak, not in any form of respiratory distress. Labs today are basically unremarkable except for creatinine of 8.95, and I believe the patient will likely be hemodialysis today. Chest x-ray showed no evidence of any active disease. The patient is seen today 07/19/2022 in follow-up in the intensive care unit. She is currently sitting up in bed. Awake and alert in no acute distress. She is maintaining good O2 saturation in the 90s on 2 L/m per nasal cannula. She has D5W with normal saline at 50 mL per hour. She is still requiring a clevidipine drip at 2 mg per hour for hypertension. She is receiving hemodialysis. Last treatment on July 16 they removed 1.6 L. Chest x-ray revealed no acute pulmonary process. Blood cultures revealed no growth. Urine culture revealed no growth. Sputum culture revealed no growth. White count 6.6. Hemoglobin 9.2. Platelets 154. Sodium 139. Potassium 4.3. BUN 38. Creatinine 10.6. She is currently on amlodipine and Lopressor. She did not pass a swallow evaluation yesterday. She remains nothing by mouth. To be reevaluated today as she is more awake and alert. No further seizure activity. The patient is seen today 07/20/2022 in follow-up in the intensive care unit. She is awake and alert in no acute distress. Sitting up in bed. Maintaining O2 saturation in the 90s on room air. No IV fluids currently. Follow-up computed tomography scan revealed hypodensities within the left basal ganglia, left antonino and cerebellum which were similar compared to 07/15/2022, suggestive of prior injury. No new areas to suggest an acute/subacute CVA. She is swallowing her pills without choking. She is 70. Diet with one-to-one supervision. Blood cultures revealed no growth. Urine culture no growth. Sputum culture no growth. White count 6.7. Hemoglobin 9.7. Platelets 151. Sodium 136. Potassium 3.6. BUN 21 creatinine 6.95. Glucose 107. Blood pressures improved. Remains off clevidipine. Heparin for DVT prophylaxis. No seizures. The patient is being reevaluated today 07/21/2022 on a general medical floor. She is awake and alert, sitting up in bed, on room air. She denies any significant shortness of breath, cough, fever, chest pain. Nurses report no further seizures. Patient is hemodynamically stable. Patient is quite weak and referrals have been sent to [facility] for potential rehab. No new x- rays to review. CBC from today shows some persistent mild anemia hemoglobin 9.4, hematocrit 30, WBC count 7.7, platelets 177,000. No blood loss noted BMP from today shows a sodium of 142, potassium 3.9, chloride 103, serum CO2 26, BUN 23, creatinine 6.3, glucose 126. Nephrology is following, patient is receiving hemodialysis Monday schedule. Patient feels that she is ready for discharge. Objective - Vital Signs Vital signs: Vital Signs Temp 98.5 F 07/21/22 14:00 Pulse 94 07/21/22 14:00 Resp 16 07/21/22 14:00 BP 132/80 07/21/22 14:00 Pulse Ox 94 L 07/21/22 14:00 FiO2 35 07/17/22 18:05 Intake & Output 07/20/22 07/21/22 07/21/22 18:59 06:59 18:59 Intake Total 1250 Output Total 700 Balance 550 Weight 74.8 kg 71.5 kg Intake: Oral 950 Hemodialysis 300 Output: Urine 0 Hemodialysis 700 Other: Voiding Method Indwelling Catheter # Voids 1 # Bowel Movements 1 1 ABP, PAP, CO, CI - Last Documented Arterial Blood Pressure 115/89 - Exam GENERAL EXAM: Alert, on room air, comfortable, in no apparent distress. HEAD: Normocephalic. EYES: Normal reaction of pupils, equal size. NOSE: Clear with pink turbinates. THROAT: No erythema or exudates. NECK: No masses, no JVD. CHEST: No chest wall deformity. LUNGS: Equal air entry with no crackles, wheeze, rhonchi or dullness. CVS: S1 and S2 normal with no audible murmur, regular rhythm. ABDOMEN: No hepatosplenomegaly, normal bowel sounds, no guarding or rigidity. SPINE: No scoliosis or deformity SKIN: No rashes CENTRAL NERVOUS SYSTEM: No focal deficits, tone is normal in all 4 extremities. EXTREMITIES: There is 1+ peripheral edema. No clubbing, no cyanosis. Peripheral pulses are intact. - Labs CBC & Chem 7: 07/21/22 07:00 07/21/22 07:00 Labs: Abnormal Lab Results - Last 24 Hours (Table) 07/20/22 07/21/22 07/21/22 Range/Units 20:59 06:24 07:00 RBC 3.31 L (4.10-5.20) X 10*6/uL Hgb 9.4 L (12.0-15.0) g/dL Hct 30.1 L (37.2-46.3) % MCHC 31.2 L (32.0-37.0) g/dL MPV 12.5 H (9.5-12.2) fL Creatinine (0.6-1.5) mg/dL Est GFR (CKD-EPI)AfAm (60.0-200.0) Est GFR (CKD-EPI)NonAf (60.0-200.0) BUN/Creatinine Ratio (12.00-20.00) Ratio Glucose (70-110) mg/dL POC Glucose (mg/dL) 134 H 130 H (70-110) mg/dL 07/21/22 07/21/22 Range/Units 07:00 11:20 RBC (4.10-5.20) X 10*6/uL Hgb (12.0-15.0) g/dL Hct (37.2-46.3) % MCHC (32.0-37.0) g/dL MPV (9.5-12.2) fL Creatinine 6.3 H (0.6-1.5) mg/dL Est GFR (CKD-EPI)AfAm 8.0 L (60.0-200.0) Est GFR (CKD-EPI)NonAf 6.9 L (60.0-200.0) BUN/Creatinine Ratio 3.81 L (12.00-20.00) Ratio Glucose 126 H (70-110) mg/dL POC Glucose (mg/dL) 204 H (70-110) mg/dL Microbiology - Last 24 Hours (Table) 07/15/22 14:15 Blood Culture - Preliminary Blood No Growth after 120 hours 07/15/22 14:00 Blood Culture - Preliminary Blood No Growth after 120 hours Assessment and Plan Assessment: Status epilepticus. Presently under control. Patient required intubation and mechanical ventilation to protect her airways. Extubated on 07/17/22. Currently on room air. No further seizure activity. Acute hypoxic respiratory failure secondary to status epilepticus, unable to protect her airways, recovered and on room air History of CVA and residual left hemiparesis Type 2 diabetes. End-stage renal disease, on hemodialysis Chronic anemia, receiving darbepoetin subcu injections Benign essential hypertension Dyslipidemia Degenerative joint disease Plan: The patient was seen and evaluated labs and medications reviewed Continue seizure precautions Continue aspiration precautions Increase her activity as tolerated From a pulmonary standpoint patient is cleared for discharge to rehab facility. I have personally seen and examined the patient, performed the documentation and the assessment and plan as written. Number of minutes spent on the visit: 10. GI Time with Patient: Less than 30
[2022-07-21 16:57] LABS: Glucose,Whole Blood 161 mg/dL (70-110)
[2022-07-21 20:03] LABS: Glucose,Whole Blood 222 mg/dL (70-110)
[2022-07-21] MEDS: ATORVASTATIN 40 MG TAB PO SCH (22:01)
[2022-07-22] MEDS: HEPARIN SODIUM,PORCINE/PF 5,000 UNIT/0.5 ML SYRINGE SQ SCH ×3 (00:37→15:30)
--- NOTE | 2022-07-22 00:55 | P.PN ---
Subjective Progress Note Date: 07/19/22 patient is a 52-year-old female with a known history ofhypertension, hyperlipidemia, diabetes type 2, history of seizure disorder and most recent seizures about a month ago, prior history of vagal nerve stimulator placed, diabetic peripheral neuropathy, ESRD on hemodialysis Monday and Monday and history of CVA/TIA and uses wheelchair, residual memory impairment, newly diagnosed obstructive sleep apnea, prior history of smoking and bipolar disorder and other medical problems was seen at dialysis clinic yesterday when she became unresponsive and was not following commands and answering questions. Patient was sent to ER for evaluation. Patient was also having nausea and episodes of vomiting. She was noted to have seizure-like activity. She did not get dialysis and was transferred to ED by EMS. On arrival to ER patient was awake alert and oriented x1 and was not holding any conversation with the staff. Previously she was admitted to the hospital from 07 03-07 06 for worsening seizu re activity. Patient was started on Zonegran along with Keppra and Depakote. Patient was also having episodes of vomiting in the ER. As per her patient has been having vomiting for the past 1 week on and off. She was also seen at [facility] earlier this week for seizure-like activity. Patient was admitted to hospital with neurology consultation. Overnight a team was called for assessment and possible status epilepticus. Patient was not following commands or make eye contact. Patient was also having episodes of emesis and concern for possible aspiration. Patient was transferred to MICU and intubated for airway protection. On admission EKG showed sinus rhythm with moderate intraventricular conduction delays. CT head showed hypodensity within the brainstem and within the left basal ganglia could be ischemic changes of intermediate age. Consider follow-up with MRI. Chest x-ray showed no acute cardiopulmonary process. Chest x-ray repeated last night showed no acute cardiopulmonary disease. Normal heart. No change. Laboratory data on admission WBC 6.7 hemoglobin 0.1 and platelets 218 Sodium 142 potassium 4.0 chloride 100 bicarb is 24 BUN 32 and creatinine 9.47 and lactic acid 3.0 and blood sugar was 288 on admission proBNP 2780 Troponin x1 negative TSH 0.708 Urinalysis showed cloudy with 3+ protein large leukocyte esterase and elevated RBCs and WBCs. Valproic acid level was 127.1. Therapeutic level is 50-1 20 CTA head and neck showed irregular moderate plaque in the left carotid artery stenosis 75% at the origin.. 07/17/2022 Patient is currently in the MICU and remains intubated and on mechanical ventilator. Propofol has been discontinued and patient remains Cleviprex. Patient is able to open her eyes but able to follow commands at this time. Pulmonary is planning to wean off with pressure support and possible extubation. Chest x-ray showed satisfactory ET and NG tube. No acute process seen. Patient is being continued on Keppra, Vimpat and Zonegran. Pulmonary and neurology is on board. Hemodialysis as per schedule. Laboratory data showed WBC 5.6 hemoglobin 10.9 platelets 203 Sodium 139 potassium 4.2 chloride 104 bicarb is 26 BUN 21 creatinine 7.22 and blood sugar is 114. Valproic acid level is 73.8 07/18/2022 Patient is in the MICU. Patient was extubated yesterday. On 2 L oxygen via nasal cannula. Patient is on Cleviprex. Awake alert and tries to communicate. Chest x-ray today showed no acute cardiopulmonary process. Patient is being continued on antiepileptic drugs and was also started on blood pressure medications this morning. CBG down to 65 this afternoon. Patient is currently nothing by mouth. Laboratory data showed WBC 7.8 hemoglobin 9.8 and platelets 172 sodium 138 potassium 4.5 chloride 104 bicarb is 24 BUN 26 and creatinine 8.95. Pulmonary, neurology and nephrology is on board. 07/19/2022 Patient is in the MICU. Resting in the bed. Awake alert and oriented but lethargic and sleepy. Requiring Cleviprex for hypertension. Requiring oxygen at 2 L via nasal cannula. Chest x-ray today showed no acute cardiopulmonary process. Nephrology and pulmonary is on board. Patient is able to swallow and Lopressor changed to by mouth. Cultures have been negative. Laboratory data showed WBC 6.6 hemoglobin 9.1 platelets 154 sodium 139 potassium 4.3 chloride 106 bicarb is 22 BUN 38 and creatinine 10.6. Patient is scheduled for hemodialysis today. Current medications reviewed. Objective - Vital Signs Vital signs: Vital Signs Temp 98.4 F 07/19/22 20:00 Pulse 84 07/19/22 21:00 Resp 14 07/19/22 21:00 BP 141/57 07/19/22 16:39 Pulse Ox 99 07/19/22 21:00 FiO2 35 07/17/22 18:05 Intake & Output 07/19/22 07/19/22 07/20/22 06:59 18:59 06:59 Intake Total 670.335 5472.667 20 Output Total 0 3200 0 Balance 907.400 -1744.333 20 Weight 78 kg Intake: IV 870 820 20 Dextrose 5%-0.9% NaCl 1, 600 300 000 ml @ 50 mls/hr IV . Q20H NEELIMA Rx#:[id number] Lacosamide IV 100 mg In 50 Sodium Chloride 0.9% 50 ml @ 100 mls/hr IVPB BID NEELIMA Rx#:[id number] NS @ KVO 120 120 20 levETIRAcetam IV 500 mg 100 400 In Sodium Chloride 0.9% 100 ml @ 400 mls/hr IVPB Q12H NEELIMA Rx#:[id number] Intake, IV Titration 37.400 35.667 Amount Clevidipine Butyrate 25 37.400 35.667 mg In Empty Bag 1 bag @ 1 MG/HR 2 mls/hr IV .Q24H NEELIMA Rx#:[id number] Oral 300 Hemodialysis 300 Output: Urine 0 0 0 Hemodialysis 3200 Other: # Bowel Movements 1 ABP, PAP, CO, CI - Last Documented Arterial Blood Pressure 158/51 - Exam PHYSICAL EXAMINATION: Patient is Patient is awake alert. Able to verbalize. Communicates slowly.. HEENT: Normocephalic. Neck is supple. Pupils reactive. Nostrils clear. Oral cavity is moist. Neck reveals no JVD, carotid bruits, or thyromegaly. CHEST EXAMINATION: Trachea is central. Symmetrical expansion. Bibasilar diminished sounds. No wheezing or crackles. Lung reich clear to auscultation and percussion. CARDIAC: Normal S1, S2 with no gallops. No murmurs ABDOMEN: Soft. Bowel sounds present. No organomegaly. No abdominal bruits. Extremities: Trace edema. No clubbing or cyanosis Neurologically patient is sedated intubated. No gross focal deficits noted. Left foot drop. Skin: No rash or skin lesions. Psychiatric: Could not be assessed at this time. Musculoskeletal: No joint swelling or deformity. - Labs CBC & Chem 7: 07/21/22 07:00 07/21/22 07:00 Labs: Abnormal Lab Results - Last 24 Hours (Table) 07/19/22 07/19/22 07/19/22 Range/Units 04:00 04:00 04:00 RBC 3.29 L (3.80-5.40) m/uL Hgb 9.2 L (11.4-16.0) gm/dL Hct 29.4 L (34.0-46.0) % BUN 38 H (7-17) mg/dL Creatinine 10.60 H* (0.52-1.04) mg/dL POC Glucose (mg/dL) (70-110) mg/dL TIBC 155 L (228-460) ug/dL Transferrin 111.0 L (204.0-354.0) mg/dL Ferritin 1075.0 H (10.0-291.0) ng/mL 07/19/22 07/19/22 07/19/22 Range/Units 11:19 16:13 19:41 RBC (3.80-5.40) m/uL Hgb (11.4-16.0) gm/dL Hct (34.0-46.0) % BUN (7-17) mg/dL Creatinine (0.52-1.04) mg/dL POC Glucose (mg/dL) 120 H 158 H 129 H (70-110) mg/dL TIBC (228-460) ug/dL Transferrin (204.0-354.0) mg/dL Ferritin (10.0-291.0) ng/mL Microbiology - Last 24 Hours (Table) 07/15/22 14:00 Blood Culture - Preliminary Blood No Growth after 96 hours 07/15/22 14:15 Blood Culture - Preliminary Blood No Growth after 96 hours Assessment and Plan Assessment: Altered mental status likely due to e status epilepticus. Patient is extubated on 07/17.. History of refractory epilepsy with previous multiple admissions due to seizures. left ICA 75%stenosis at the origin as per CTA neck. hypodensity in the brainstem and left basal ganglia were related to previous CVA ESRD on hemodialysisMonday and Monday. History of CVA with left hemiparesis Diabetes2 I would a peripheral neuropathy Memory impairment GERD Hypertension next hyperlipidemia Hypothyroidism bipolar disorder Primary history of smoking DVT prophylaxis with heparin subcu Plan: Patient is extubated 07/17/2022. Remains Cleviprex. initiated blood pressure medications. Started back on Zonegran, Depakote and Keppra as per neurology recommendations.Zonegran dose increased to 100 mg twice a day,Keppra additional dose 500 mg post dialysis. Patient will be continued on secondary stroke prophylaxis Plavix and Lipitor, Neurology is on board. Nephrology is on board for hemodialysis. Continue with home medications and insulin sliding scale for better blood sugar control. Follow-up closely. Prognosis is guarded with multiple medical problems and comorbid conditions. Time with Patient: Greater than 30
--- NOTE | 2022-07-22 00:58 | P.PN ---
Subjective Progress Note Date: 07/20/22 patient is a 52-year-old female with a known history ofhypertension, hyperlipidemia, diabetes type 2, history of seizure disorder and most recent seizures about a month ago, prior history of vagal nerve stimulator placed, diabetic peripheral neuropathy, ESRD on hemodialysis Monday and Monday and history of CVA/TIA and uses wheelchair, residual memory impairment, newly diagnosed obstructive sleep apnea, prior history of smoking and bipolar disorder and other medical problems was seen at dialysis clinic yesterday when she became unresponsive and was not following commands and answering questions. Patient was sent to ER for evaluation. Patient was also having nausea and episodes of vomiting. She was noted to have seizure-like activity. She did not get dialysis and was transferred to ED by EMS. On arrival to ER patient was awake alert and oriented x1 and was not holding any conversation with the staff. Previously she was admitted to the hospital from 07 03-07 06 for worsening seizu re activity. Patient was started on Zonegran along with Keppra and Depakote. Patient was also having episodes of vomiting in the ER. As per her patient has been having vomiting for the past 1 week on and off. She was also seen at [facility] earlier this week for seizure-like activity. Patient was admitted to hospital with neurology consultation. Overnight a team was called for assessment and possible status epilepticus. Patient was not following commands or make eye contact. Patient was also having episodes of emesis and concern for possible aspiration. Patient was transferred to MICU and intubated for airway protection. On admission EKG showed sinus rhythm with moderate intraventricular conduction delays. CT head showed hypodensity within the brainstem and within the left basal ganglia could be ischemic changes of intermediate age. Consider follow-up with MRI. Chest x-ray showed no acute cardiopulmonary process. Chest x-ray repeated last night showed no acute cardiopulmonary disease. Normal heart. No change. Laboratory data on admission WBC 6.7 hemoglobin 0.1 and platelets 218 Sodium 142 potassium 4.0 chloride 100 bicarb is 24 BUN 32 and creatinine 9.47 and lactic acid 3.0 and blood sugar was 288 on admission proBNP 2780 Troponin x1 negative TSH 0.708 Urinalysis showed cloudy with 3+ protein large leukocyte esterase and elevated RBCs and WBCs. Valproic acid level was 127.1. Therapeutic level is 50-1 20 CTA head and neck showed irregular moderate plaque in the left carotid artery stenosis 75% at the origin.. 07/17/2022 Patient is currently in the MICU and remains intubated and on mechanical ventilator. Propofol has been discontinued and patient remains Cleviprex. Patient is able to open her eyes but able to follow commands at this time. Pulmonary is planning to wean off with pressure support and possible extubation. Chest x-ray showed satisfactory ET and NG tube. No acute process seen. Patient is being continued on Keppra, Vimpat and Zonegran. Pulmonary and neurology is on board. Hemodialysis as per schedule. Laboratory data showed WBC 5.6 hemoglobin 10.9 platelets 203 Sodium 139 potassium 4.2 chloride 104 bicarb is 26 BUN 21 creatinine 7.22 and blood sugar is 114. Valproic acid level is 73.8 07/18/2022 Patient is in the MICU. Patient was extubated yesterday. On 2 L oxygen via nasal cannula. Patient is on Cleviprex. Awake alert and tries to communicate. Chest x-ray today showed no acute cardiopulmonary process. Patient is being continued on antiepileptic drugs and was also started on blood pressure medications this morning. CBG down to 65 this afternoon. Patient is currently nothing by mouth. Laboratory data showed WBC 7.8 hemoglobin 9.8 and platelets 172 sodium 138 potassium 4.5 chloride 104 bicarb is 24 BUN 26 and creatinine 8.95. Pulmonary, neurology and nephrology is on board. 07/19/2022 Patient is in the MICU. Resting in the bed. Awake alert and oriented but lethargic and sleepy. Requiring Cleviprex for hypertension. Requiring oxygen at 2 L via nasal cannula. Chest x-ray today showed no acute cardiopulmonary process. Nephrology and pulmonary is on board. Patient is able to swallow and Lopressor changed to by mouth. Cultures have been negative. Laboratory data showed WBC 6.6 hemoglobin 9.1 platelets 154 sodium 139 potassium 4.3 chloride 106 bicarb is 22 BUN 38 and creatinine 10.6. Patient is scheduled for hemodialysis today. 07/20/2022 Patient is in the MICU. Awake alert and oriented. Communicating slowly. Currently titrated down to room air. Patient had repeat CT scan this morning showed hypodensities within the left basal ganglia, left antonino and cerebellum are similar to 07/15/2022. Suggestive of prior injury. No new areas of suggest acute or subacute CVA. Cultures have been negative. Patient underwent hemodialysis yesterday. Cleviprex has been discontinued. No further episodes of seizures overnight. Patient is being transferred to medical floor today. Laboratory data showed WBC 6.7 hemoglobin 9.7 and platelets 151 sodium 136 potassium 3.6 chloride 102 bicarb is 27 BUN 21 and creatinine 6.95. Blood sugar is 107. Current medications reviewed. Objective - Vital Signs Vital signs: Vital Signs Temp 98.6 F 07/20/22 18:54 Pulse 88 07/20/22 18:54 Resp 17 07/20/22 18:54 BP 138/84 07/20/22 18:54 Pulse Ox 97 07/20/22 18:54 FiO2 35 07/17/22 18:05 Intake & Output 07/20/22 07/20/22 07/21/22 06:59 18:59 06:59 Intake Total 50 1250 Output Total 0 700 Balance 50 550 Weight 74.8 kg 74.8 kg Intake: IV 50 NS @ KVO 50 Oral 950 Hemodialysis 300 Output: Urine 0 0 Hemodialysis 700 Other: # Bowel Movements 1 1 ABP, PAP, CO, CI - Last Documented Arterial Blood Pressure 115/89 - Exam PHYSICAL EXAMINATION: Patient is Patient is awake alert. Able to verbalize. Communicates slowly.. HEENT: Normocephalic. Neck is supple. Pupils reactive. Nostrils clear. Oral cavity is moist. Neck reveals no JVD, carotid bruits, or thyromegaly. CHEST EXAMINATION: Trachea is central. Symmetrical expansion. Bibasilar diminished sounds. No wheezing or crackles. Lung reich clear to auscultation and percussion. CARDIAC: Normal S1, S2 with no gallops. No murmurs ABDOMEN: Soft. Bowel sounds present. No organomegaly. No abdominal bruits. Extremities: Trace edema. No clubbing or cyanosis Neurologically patient is sedated intubated. No gross focal deficits noted. Left foot drop. Skin: No rash or skin lesions. Psychiatric: Could not be assessed at this time. Musculoskeletal: No joint swelling or deformity. - Labs CBC & Chem 7: 07/21/22 07:00 07/21/22 07:00 Labs: Abnormal Lab Results - Last 24 Hours (Table) 07/20/22 07/20/22 07/20/22 Range/Units 04:00 04:00 06:48 RBC 3.31 L (3.80-5.40) m/uL Hgb 9.7 L (11.4-16.0) gm/dL Hct 28.9 L (34.0-46.0) % Sodium 136 L (137-145) mmol/L BUN 21 H (7-17) mg/dL Creatinine 6.95 H (0.52-1.04) mg/dL Glucose 107 H (74-99) mg/dL POC Glucose (mg/dL) 115 H (70-110) mg/dL 07/20/22 07/20/22 Range/Units 12:07 20:59 RBC (3.80-5.40) m/uL Hgb (11.4-16.0) gm/dL Hct (34.0-46.0) % Sodium (137-145) mmol/L BUN (7-17) mg/dL Creatinine (0.52-1.04) mg/dL Glucose (74-99) mg/dL POC Glucose (mg/dL) 166 H 134 H (70-110) mg/dL Microbiology - Last 24 Hours (Table) 07/15/22 14:15 Blood Culture - Preliminary Blood No Growth after 120 hours 07/15/22 14:00 Blood Culture - Preliminary Blood No Growth after 120 hours Assessment and Plan Assessment: Altered mental status likely due to e status epilepticus. Patient is extubated on 07/17.. History of refractory epilepsy with previous multiple admissions due to seizures. left ICA 75%stenosis at the origin as per CTA neck. hypodensity in the brainstem and left basal ganglia were related to previous CVA ESRD on hemodialysisMonday Monday and Monday. History of CVA with left hemiparesis Diabetes2 I would a peripheral neuropathy Memory impairment GERD Hypertension next hyperlipidemia Hypothyroidism bipolar disorder Primary history of smoking DVT prophylaxis with heparin subcu Plan: Patient is extubated 07/17/2022. off Cleviprex. initiated blood pressure medications.Blood pressure is controlled. Patient had hemodialysis yesterday. Repeat CT head showed no acute intracranial process. Virt-C DHA is noted as above. Started back on Zonegran, Depakote and Keppra as per neurology recommendations.Zonegran dose increased to 100 mg twice a day,Keppra additional dose 500 mg post dialysis. Patient will be continued on secondary stroke prophylaxis Plavix and Lipitor, Neurology is on board. Nephrology is on board for hemodialysis. Continue with home medications and insulin sliding scale for better blood sugar control. Follow-up closely. Prognosis is guarded with multiple medical problems and comorbid conditions. Time with Patient: Greater than 30
--- NOTE | 2022-07-22 01:00 | P.PN ---
Subjective Progress Note Date: 07/21/22 patient is a 52-year-old female with a known history ofhypertension, hyperlipidemia, diabetes type 2, history of seizure disorder and most recent seizures about a month ago, prior history of vagal nerve stimulator placed, diabetic peripheral neuropathy, ESRD on hemodialysis Monday and Monday and history of CVA/TIA and uses wheelchair, residual memory impairment, newly diagnosed obstructive sleep apnea, prior history of smoking and bipolar disorder and other medical problems was seen at dialysis clinic yesterday when she became unresponsive and was not following commands and answering questions. Patient was sent to ER for evaluation. Patient was also having nausea and episodes of vomiting. She was noted to have seizure-like activity. She did not get dialysis and was transferred to ED by EMS. On arrival to ER patient was awake alert and oriented x1 and was not holding any conversation with the staff. Previously she was admitted to the hospital from 07 03-07 06 for worsening seizu re activity. Patient was started on Zonegran along with Keppra and Depakote. Patient was also having episodes of vomiting in the ER. As per her patient has been having vomiting for the past 1 week on and off. She was also seen at [facility] earlier this week for seizure-like activity. Patient was admitted to hospital with neurology consultation. Overnight a team was called for assessment and possible status epilepticus. Patient was not following commands or make eye contact. Patient was also having episodes of emesis and concern for possible aspiration. Patient was transferred to MICU and intubated for airway protection. On admission EKG showed sinus rhythm with moderate intraventricular conduction delays. CT head showed hypodensity within the brainstem and within the left basal ganglia could be ischemic changes of intermediate age. Consider follow-up with MRI. Chest x-ray showed no acute cardiopulmonary process. Chest x-ray repeated last night showed no acute cardiopulmonary disease. Normal heart. No change. Laboratory data on admission WBC 6.7 hemoglobin 0.1 and platelets 218 Sodium 142 potassium 4.0 chloride 100 bicarb is 24 BUN 32 and creatinine 9.47 and lactic acid 3.0 and blood sugar was 288 on admission proBNP 2780 Troponin x1 negative TSH 0.708 Urinalysis showed cloudy with 3+ protein large leukocyte esterase and elevated RBCs and WBCs. Valproic acid level was 127.1. Therapeutic level is 50-1 20 CTA head and neck showed irregular moderate plaque in the left carotid artery stenosis 75% at the origin.. 07/17/2022 Patient is currently in the MICU and remains intubated and on mechanical ventilator. Propofol has been discontinued and patient remains Cleviprex. Patient is able to open her eyes but able to follow commands at this time. Pulmonary is planning to wean off with pressure support and possible extubation. Chest x-ray showed satisfactory ET and NG tube. No acute process seen. Patient is being continued on Keppra, Vimpat and Zonegran. Pulmonary and neurology is on board. Hemodialysis as per schedule. Laboratory data showed WBC 5.6 hemoglobin 10.9 platelets 203 Sodium 139 potassium 4.2 chloride 104 bicarb is 26 BUN 21 creatinine 7.22 and blood sugar is 114. Valproic acid level is 73.8 07/18/2022 Patient is in the MICU. Patient was extubated yesterday. On 2 L oxygen via nasal cannula. Patient is on Cleviprex. Awake alert and tries to communicate. Chest x-ray today showed no acute cardiopulmonary process. Patient is being continued on antiepileptic drugs and was also started on blood pressure medications this morning. CBG down to 65 this afternoon. Patient is currently nothing by mouth. Laboratory data showed WBC 7.8 hemoglobin 9.8 and platelets 172 sodium 138 potassium 4.5 chloride 104 bicarb is 24 BUN 26 and creatinine 8.95. Pulmonary, neurology and nephrology is on board. 07/19/2022 Patient is in the MICU. Resting in the bed. Awake alert and oriented but lethargic and sleepy. Requiring Cleviprex for hypertension. Requiring oxygen at 2 L via nasal cannula. Chest x-ray today showed no acute cardiopulmonary process. Nephrology and pulmonary is on board. Patient is able to swallow and Lopressor changed to by mouth. Cultures have been negative. Laboratory data showed WBC 6.6 hemoglobin 9.1 platelets 154 sodium 139 potassium 4.3 chloride 106 bicarb is 22 BUN 38 and creatinine 10.6. Patient is scheduled for hemodialysis today. 07/20/2022 Patient is in the MICU. Awake alert and oriented. Communicating slowly. Currently titrated down to room air. Patient had repeat CT scan this morning showed hypodensities within the left basal ganglia, left antonino and cerebellum are similar to 07/15/2022. Suggestive of prior injury. No new areas of suggest acute or subacute CVA. Cultures have been negative. Patient underwent hemodialysis yesterday. Cleviprex has been discontinued. No further episodes of seizures overnight. Patient is being transferred to medical floor today. Laboratory data showed WBC 6.7 hemoglobin 9.7 and platelets 151 sodium 136 potassium 3.6 chloride 102 bicarb is 27 BUN 21 and creatinine 6.95. Blood sugar is 107. 07/21/2022 Patient is in the medical floor. Awake alert and oriented but slow to respond. On room air. No complaints of chest pain or shortness of breath. No nausea vomiting abdominal pain or diarrhea. Tolerating oral diet. No further episode of seizures. Hemodialysis as per schedule Monday and Monday. Laboratory data showed WC 7.7 hemoglobin 9.4 and platelets 177 sodium 142 potassium 3.9 chloride 103 bicarb is 26.1 BUN 23.9 and creatinine 6.3. Blood sugars 126 and phosphorus 4.8. Next hemodialysis tomorrow. Anticipate discharge to rehab in the next 24 hours. Current medications reviewed. Objective - Vital Signs Vital signs: Vital Signs Temp 98.9 F 07/21/22 19:32 Pulse 107 H 07/21/22 19:32 Resp 16 07/21/22 19:32 BP 163/77 07/21/22 19:32 Pulse Ox 94 L 07/21/22 19:32 FiO2 35 07/17/22 18:05 Intake & Output 07/21/22 07/21/22 07/22/22 06:59 18:59 06:59 Intake Total 600 Balance 600 Weight 71.5 kg Intake: Oral 600 Other: Voiding Method Indwelling Catheter # Voids 1 # Bowel Movements 1 1 ABP, PAP, CO, CI - Last Documented Arterial Blood Pressure 115/89 - Exam PHYSICAL EXAMINATION: Patient is Patient is awake alert. Able to verbalize. Communicates slowly.. HEENT: Normocephalic. Neck is supple. Pupils reactive. Nostrils clear. Oral cavity is moist. Neck reveals no JVD, carotid bruits, or thyromegaly. CHEST EXAMINATION: Trachea is central. Symmetrical expansion. Bibasilar diminished sounds. No wheezing or crackles. Lung reich clear to auscultation and percussion. CARDIAC: Normal S1, S2 with no gallops. No murmurs ABDOMEN: Soft. Bowel sounds present. No organomegaly. No abdominal bruits. Extremities: Trace edema. No clubbing or cyanosis Neurologically patient is sedated intubated. No gross focal deficits noted. Left foot drop. Skin: No rash or skin lesions. Psychiatric: Could not be assessed at this time. Musculoskeletal: No joint swelling or deformity. - Labs CBC & Chem 7: 07/21/22 07:00 07/21/22 07:00 Labs: Abnormal Lab Results - Last 24 Hours (Table) 07/16/22 07/21/22 07/21/22 Range/Units 12:15 06:24 07:00 RBC 3.31 L (4.10-5.20) X 10*6/uL Hgb 9.4 L (12.0-15.0) g/dL Hct 30.1 L (37.2-46.3) % MCHC 31.2 L (32.0-37.0) g/dL MPV 12.5 H (9.5-12.2) fL Creatinine (0.6-1.5) mg/dL Est GFR (CKD-EPI)AfAm (60.0-200.0) Est GFR (CKD-EPI)NonAf (60.0-200.0) BUN/Creatinine Ratio (12.00-20.00) Ratio Glucose (70-110) mg/dL POC Glucose (mg/dL) 130 H (70-110) mg/dL Free Valproic Acid 26.0 H (4.8-17.3) mg/L 07/21/22 07/21/22 07/21/22 Range/Units 07:00 11:20 16:55 RBC (4.10-5.20) X 10*6/uL Hgb (12.0-15.0) g/dL Hct (37.2-46.3) % MCHC (32.0-37.0) g/dL MPV (9.5-12.2) fL Creatinine 6.3 H (0.6-1.5) mg/dL Est GFR (CKD-EPI)AfAm 8.0 L (60.0-200.0) Est GFR (CKD-EPI)NonAf 6.9 L (60.0-200.0) BUN/Creatinine Ratio 3.81 L (12.00-20.00) Ratio Glucose 126 H (70-110) mg/dL POC Glucose (mg/dL) 204 H 161 H (70-110) mg/dL Free Valproic Acid (4.8-17.3) mg/L 07/21/22 Range/Units 20:02 RBC (4.10-5.20) X 10*6/uL Hgb (12.0-15.0) g/dL Hct (37.2-46.3) % MCHC (32.0-37.0) g/dL MPV (9.5-12.2) fL Creatinine (0.6-1.5) mg/dL Est GFR (CKD-EPI)AfAm (60.0-200.0) Est GFR (CKD-EPI)NonAf (60.0-200.0) BUN/Creatinine Ratio (12.00-20.00) Ratio Glucose (70-110) mg/dL POC Glucose (mg/dL) 222 H (70-110) mg/dL Free Valproic Acid (4.8-17.3) mg/L Microbiology - Last 24 Hours (Table) 07/15/22 14:15 Blood Culture - Final Blood No Growth after 144 hours 07/15/22 14:00 Blood Culture - Final Blood No Growth after 144 hours Assessment and Plan Assessment: Altered mental status likely due to e status epilepticus. Patient is extubated o n 07/17.. History of refractory epilepsy with previous multiple admissions due to seizures. left ICA 75%stenosis at the origin as per CTA neck. hypodensity in the brainstem and left basal ganglia were related to previous CVA ESRD on hemodialysisMonday and Monday. History of CVA with left hemiparesis Diabetes2 I would a peripheral neuropathy Memory impairment GERD Hypertension next hyperlipidemia Hypothyroidism bipolar disorder Primary history of smoking DVT prophylaxis with heparin subcu Plan: Patient is extubated 07/17/2022. off Cleviprex. initiated blood pressure medications.Blood pressure is controlled. Hemodialysis as per schedule on Monday and Monday. Next hemodialysis tomorrow. Repeat CT head showed no acute intracranial process. old cva changed as noted above. Started back on Zonegran, Depakote and Keppra as per neurology recommendations.Zonegran dose increased to 100 mg twice a day,Keppra additional dose 500 mg post dialysis. Patient will be continued on secondary stroke prophylaxis Plavix and Lipitor, Neurology is on board. Nephrology is on board for hemodialysis. Continue with home medications and insulin sliding scale for better blood sugar control. Follow-up closely. Prognosis is guarded with multiple medical problems and comorbid conditions. Time with Patient: Greater than 30
[2022-07-22 06:18] LABS: Glucose,Whole Blood 122 mg/dL (70-110)
[2022-07-22 07:32] LABS: Glucose,Whole Blood 117 mg/dL (70-110)
[2022-07-22 08:32] LABS: Basophils # (A) 0.04 X 10*3/uL (0.00-0.10); Basophils % (A) 0.6 %; Eosinophils % (A) 1.4 %; HCT 28.2 % (37.2-46.3); HGB 8.9 g/dL (12.0-15.0); Immature Grans, Automated 0.9 %; Lymphocytes # (A) 2.47 X 10*3/uL (0.90-5.00); Lymphocytes % (A) 35.4 %; MCH 27.5 pg (27.0-32.0); MCHC 31.6 g/dL (32.0-37.0); Monocytes # (A) 0.65 X 10*3/uL (0.20-1.00); Monocytes % (A) 9.3 %; NRBC Per 100 WBC 0 /100 WBCS (0.0-0.0); Neutrophils # (A) 3.65 X 10*3/uL (1.80-7.70); Neutrophils % (A) 52.4 %; Platelet Count 196 X 10*3/uL (140-440); RBC 3.24 X 10*6/uL (4.10-5.20); WBC 6.97 X 10*3/uL (4.50-10.00)
[2022-07-22] MEDS: amLODIPine 5 MG TAB PO SCH ×2 (08:49→19:48)
[2022-07-22] MEDS: CALCIUM ACETATE 667 MG TAB PO SCH ×3 (08:49→16:36)
[2022-07-22] MEDS: LACOSAMIDE 50 MG TABLET PO SCH (08:49)
[2022-07-22] MEDS: METOPROLOL TARTRATE 25 MG TAB PO SCH ×2 (08:49→19:48)
[2022-07-22] MEDS: PANTOPRAZOLE 40 MG TABLET PO SCH (08:49)
[2022-07-22] MEDS: CLOPIDOGREL 75 MG TAB PO SCH (08:49)
[2022-07-22] MEDS: levETIRAcetam 500 MG TAB PO SCH (08:50)
[2022-07-22] MEDS: SEVELAMER 800 MG TAB PO SCH ×3 (08:50→16:36)
[2022-07-22] MEDS: ZONISAMIDE 100 MG CAP PO SCH ×2 (08:50→19:49)
[2022-07-22] MEDS: DIVALPROEX SPRINKLE 125 MG CAP.SPRINK PO SCH (08:51)
[2022-07-22] MEDS: VASCEPA 1 GM PO SCH ×2 (08:52→19:49)
[2022-07-22 08:54] LABS: Phosphorus 5.1 mg/dL (2.4-5.1)
[2022-07-22 09:02] LABS: African American GFR (CKD) 5.6 (60.0-200.0); Anion Gap 16.3 mmol/L (10.00-18.00); BUN/Creat Ratio 4.8 Ratio (12.00-20.00); Blood Urea Nitrogen 40.8 mg/dL (9.0-27.0); Calcium 9.4 mg/dL (8.7-10.3); Carbon Dioxide 24.7 mmol/L (20.0-27.5); Non-African American GFR(CKD) 4.8 (60.0-200.0); Potassium 4.3 mmol/L (3.5-5.5)
[2022-07-22 11:23] LABS: Glucose,Whole Blood 237 mg/dL (70-110)
--- NOTE | 2022-07-22 13:15 | FL ---
Modified barium swallow. Consistencies administered: Pudding and honey thick consistencies. Silent laryngeal penetration with pudding consistency and aspiration with delayed cough with honey th ick consistency. Delayed initiation of swallow with premature spill with all consistencies. Fluoro time: 1.29 minutes No images were sent to PACS. Please see speech pathology report.
--- NOTE | 2022-07-22 14:25 | P.PN ---
Subjective Patient is seen in follow-up for end-stage renal disease. She is maintained on hemodialysis on Monday schedule. Scheduled for dialysis today. Resting in bed. Hemodynamically stable. Scheduled for barium swallow eval today. Vital signs are stable. General: No acute distress. HEENT: Head exam is unremarkable. LUNGS: Breath sounds decreased. HEART: Rate and Rhythm are regular. ABDOMEN: Soft, no distention. EXTREMITITES: No edema. Objective - Vital Signs Vital signs: Vital Signs Temp 98.3 F 07/22/22 07:07 Pulse 85 07/22/22 07:07 Resp 25 H 07/22/22 07:07 BP 148/75 07/22/22 07:07 Pulse Ox 95 07/22/22 08:10 FiO2 35 07/17/22 18:05 Intake & Output 07/21/22 07/22/22 07/22/22 18:59 06:59 18:59 Intake Total 600 180 Balance 600 180 Weight 71 kg Intake: Oral 600 180 Other: # Voids 1 1 # Bowel Movements 1 ABP, PAP, CO, CI - Last Documented Arterial Blood Pressure 115/89 - Labs CBC & Chem 7: 07/22/22 05:51 07/22/22 05:51 Labs: Abnormal Lab Results - Last 24 Hours (Table) 07/16/22 07/21/22 07/21/22 Range/Units 12:15 16:55 20:02 RBC (4.10-5.20) X 10*6/uL Hgb (12.0-15.0) g/dL Hct (37.2-46.3) % MCHC (32.0-37.0) g/dL Immature Gran # (0.00-0.04) X 10*3/uL BUN (9.0-27.0) mg/dL Creatinine (0.6-1.5) mg/dL Est GFR (CKD-EPI)AfAm (60.0-200.0) Est GFR (CKD-EPI)NonAf (60.0-200.0) BUN/Creatinine Ratio (12.00-20.00) Ratio POC Glucose (mg/dL) 161 H 222 H (70-110) mg/dL Free Valproic Acid 26.0 H (4.8-17.3) mg/L 07/22/22 07/22/22 07/22/22 Range/Units 05:51 05:51 06:17 RBC 3.24 L (4.10-5.20) X 10*6/uL Hgb 8.9 L (12.0-15.0) g/dL Hct 28.2 L (37.2-46.3) % MCHC 31.6 L (32.0-37.0) g/dL Immature Gran # 0.06 H (0.00-0.04) X 10*3/uL BUN 40.8 H (9.0-27.0) mg/dL Creatinine 8.5 H* (0.6-1.5) mg/dL Est GFR (CKD-EPI)AfAm 5.6 L (60.0-200.0) Est GFR (CKD-EPI)NonAf 4.8 L (60.0-200.0) BUN/Creatinine Ratio 4.80 L (12.00-20.00) Ratio POC Glucose (mg/dL) 122 H (70-110) mg/dL Free Valproic Acid (4.8-17.3) mg/L 07/22/22 07/22/22 Range/Units 07:30 11:21 RBC (4.10-5.20) X 10*6/uL Hgb (12.0-15.0) g/dL Hct (37.2-46.3) % MCHC (32.0-37.0) g/dL Immature Gran # (0.00-0.04) X 10*3/uL BUN (9.0-27.0) mg/dL Creatinine (0.6-1.5) mg/dL Est GFR (CKD-EPI)AfAm (60.0-200.0) Est GFR (CKD-EPI)NonAf (60.0-200.0) BUN/Creatinine Ratio (12.00-20.00) Ratio POC Glucose (mg/dL) 117 H 237 H (70-110) mg/dL Free Valproic Acid (4.8-17.3) mg/L Microbiology - Last 24 Hours (Table) 07/15/22 14:15 Blood Culture - Final Blood No Growth after 144 hours 07/15/22 14:00 Blood Culture - Final Blood No Growth after 144 hours Assessment and Plan Plan: Assessment: 1. End-stage renal disease maintained on hemodialysis on Monday schedule. 2. Seizures. Being followed by neurology. 3. Left ICA stenosis. Seen by vascular surgery. 4. Hypertension with chronic kidney disease. Stable. 5. Chronic kidney disease mineral bone disease maintained on PhosLo and Renvela. Phosphorus 5.1 today. 6. Anemia of chronic kidney disease. Iron replete. On Aranesp. Plan: Hemodialysis today.
--- NOTE | 2022-07-22 15:04 | P.PN ---
Subjective Progress Note Date: 07/22/22 this is a 52-year-old female with history of chronic seizure disorder, her seizures have been recently poorly controlled, patient follows up with the neurologist/Dr. Ohara for her seizures. Patient was brought into the ER yesterday with altered mental status, intermittent episodes of nausea and vomiting. Apparently the patient was dropped off yesterday at the dialysis unit/clinic, and when she got there patient became unresponsive, she did not notice to have any seizure-like activity. She was not speaking or answering any questions. Patient was unable to get her dialysis treatment, hence the patient was brought in by EMS to the ER yesterday. Apparently the patient was admitted, and shortly after she was admitted she had recurrent episodes of seizures,/status epilepticus.that a team responded to a call from the nurse on the floor, patient was evaluated by the hospitalist, did not seem to follow any commands or make any eye contact. And at one point it was felt that the patient had status epilepticus. Apparently the patient had to be intubated to protect her airways, she was admitted to the ICU, and the plan was to consider transferring the patient to [facility] because of her status epilepticus and this was based upon the recommendation of the neurologist who was notified about this patient. Patient was placed on multiple medications for her seizures, and these will be noted below. Today I evaluated the patient while she is on mechanical ventilation, and I recommended that we start considering weaning and stopping her Versed which is 5 mg per hour, he is also on propofol at 20 mcg/kg/m, and will possibly extubate the patient. She was evaluated by the neurologist, and he feels that the seizures seem to be presently under control, and would be worthwhile giving the patient a weaning trial and possibly extubation. Her assist-control rate is 14 tidal volume 400 FiO2 30 PEEP of 5. ABG from previous settings was noted she had a pO2 of 165 pCO2 24 pH of 7.60, h owever since then the ventilator settings have been really adjusted. Her last seizure was reported at [address] of the brain last night showed subacute lacunar infarct, and suspicious brainstem lesion.however the neurologist evaluated the CT of the brain, and did not feel that this is a worrisome finding.patient is getting IV Keppra loading dose, she is also getting Versed and propofol, and she was givenDepakote twice a day, patient is also receiving [id number] mg IV twice a day.in addition the patient is on zonisamide 100 mg by mouth twice a dayobviously the patient is maximized on all antiseizure medications, and I'm hoping her seizures are under control at present, will give the patient a trial of weaning and possibly extubationobviously no further plans to transfer the patient at this point. Reevaluated today on 07/17/22, patient remains in the ICU, intubated and mechanically ventilated, she is on assist control rate of 20, volume 400 FiO2 30% and PEEP of 5.ABG showed a pO2 of 121 pCO2 36 pH of 7.48. WBC count is 5.6 hemoglobin is 10.9. Electrolytes are basically unremarkable,BUN is 20 creatinine 7.22. Patient is a renal patient, and she is on hemodialysis. Patient is on propofol at 20 mcg/kg/m which I have discontinued this morning, he is also on clevidipine at 6 mg per hour. After stopping her propofol, the patient seems to be appropriate, she is following instructions, and I plan wean this patient today using pressure support with CPAP, or may use IMV with press ure support leading to CPAP. Overall the patient is doing better, and again I plan to wean and extubate, no seizure activities in the last 24 hours.chest x- ray is basically unremarkable today. Reevaluated today on 07/18/22, patient remains in the ICU, she was extubated yesterday, she tolerated the extubation well. She is now on 2 L nasal cannula, not in distress, she is requiring clevidipine elevated blood pressure, hence I started the patient on metoprolol 50 mg twice a day and amlodipine 5 mg by mouth twice a day. No seizures noted over the last 24 hours, patient seems to be generally weak, not in any form of respiratory distress. Labs today are basically unremarkable except for creatinine of 8.95, and I believe the patient will likely be hemodialysis today. Chest x-ray showed no evidence of any active disease. The patient is seen today 07/19/2022 in follow-up in the intensive care unit. She is currently sitting up in bed. Awake and alert in no acute distress. She is maintaining good O2 saturation in the 90s on 2 L/m per nasal cannula. She has D5W with normal saline at 50 mL per hour. She is still requiring a clevidipine drip at 2 mg per hour for hypertension. She is receiving hemodialysis. Last treatment on July 16 they removed 1.6 L. Chest x-ray revealed no acute pulmonary process. Blood cultures revealed no growth. Urine culture revealed no growth. Sputum culture revealed no growth. White count 6.6. Hemoglobin 9.2. Platelets 154. Sodium 139. Potassium 4.3. BUN 38. Creatinine 10.6. She is currently on amlodipine and Lopressor. She did not pass a swallow evaluation yesterday. She remains nothing by mouth. To be reevaluated today as she is more awake and alert. No further seizure activity. The patient is seen today 07/20/2022 in follow-up in the intensive care unit. She is awake and alert in no acute distress. Sitting up in bed. Maintaining O2 saturation in the 90s on room air. No IV fluids currently. Follow-up computed tomography scan revealed hypodensities within the left basal ganglia, left antonino and cerebellum which were similar compared to 07/15/2022, suggestive of prior injury. No new areas to suggest an acute/subacute CVA. She is swallowing her pills without choking. She is 68. Diet with one-to-one supervision. Blood cultures revealed no growth. Urine culture no growth. Sputum culture no growth. White count 6.7. Hemoglobin 9.7. Platelets 151. Sodium 136. Potassium 3.6. BUN 21 creatinine 6.95. Glucose 107. Blood pressures improved. Remains off clevidipine. Heparin for DVT prophylaxis. No seizures. The patient is seen today 07/22/2022 in follow-up on the regular medical floor. She is currently sitting up in bed. Awake and alert in no acute distress. She remains somewhat slow to respond. She is maintaining good O2 saturations in the 90s on room air. No IV fluids. Sputum culture revealed no growth. Blood cultures reveal no growth. Urine culture revealed no growth. Count 6.9. Hemoglobin 8.9. Platelets 196. Sodium 144. Potassium 4.3. Bicarb 25. BUN 40. Creatinine 8.5. Glucose 107. She remains on heparin for DVT prophylaxis. Protonix for GI prophylaxis. Plan is for repeat swallow evaluation today. Objective - Vital Signs Vital signs: Vital Signs Temp 98.3 F 07/22/22 07:07 Pulse 85 07/22/22 07:07 Resp 25 H 07/22/22 07:07 BP 148/75 07/22/22 07:07 Pulse Ox 95 07/22/22 08:10 FiO2 35 07/17/22 18:05 Intake & Output 07/21/22 07/22/22 07/22/22 18:59 06:59 18:59 Intake Total 600 180 Balance 600 180 Weight 71 kg Intake: Oral 600 180 Other: # Voids 1 1 # Bowel Movements 1 ABP, PAP, CO, CI - Last Documented Arterial Blood Pressure 115/89 - Exam GENERAL EXAM: Alert, slow to respond, 52-year-old female, on room air, sitting up in bed, comfortable in no apparent distress. HEAD: Normocephalic. EYES: Normal reaction of pupils, equal size. NOSE: Clear with pink turbinates. THROAT: No erythema or exudates. NECK: No masses, no JVD. CHEST: No chest wall deformity. LUNGS: Equal air entry with no crackles, wheeze, rhonchi or dullness. CVS: S1 and S2 normal with no audible murmur, regular rhythm. ABDOMEN: No hepatosplenomegaly, normal bowel sounds, no guarding or rigidity. SPINE: No scoliosis or deformity SKIN: No rashes CENTRAL NERVOUS SYSTEM: No focal deficits, tone is normal in all 4 extremities. EXTREMITIES: There is 1+ peripheral edema. No clubbing, no cyanosis. Peripheral pulses are intact. - Labs CBC & Chem 7: 07/22/22 05:51 07/22/22 05:51 Labs: Abnormal Lab Results - Last 24 Hours (Table) 07/16/22 07/21/22 07/21/22 Range/Units 12:15 16:55 20:02 RBC (4.10-5.20) X 10*6/uL Hgb (12.0-15.0) g/dL Hct (37.2-46.3) % MCHC (32.0-37.0) g/dL Immature Gran # (0.00-0.04) X 10*3/uL BUN (9.0-27.0) mg/dL Creatinine (0.6-1.5) mg/dL Est GFR (CKD-EPI)AfAm (60.0-200.0) Est GFR (CKD-EPI)NonAf (60.0-200.0) BUN/Creatinine Ratio (12.00-20.00) Ratio POC Glucose (mg/dL) 161 H 222 H (70-110) mg/dL Free Valproic Acid 26.0 H (4.8-17.3) mg/L 07/22/22 07/22/22 07/22/22 Range/Units 05:51 05:51 06:17 RBC 3.24 L (4.10-5.20) X 10*6/uL Hgb 8.9 L (12.0-15.0) g/dL Hct 28.2 L (37.2-46.3) % MCHC 31.6 L (32.0-37.0) g/dL Immature Gran # 0.06 H (0.00-0.04) X 10*3/uL BUN 40.8 H (9.0-27.0) mg/dL Creatinine 8.5 H* (0.6-1.5) mg/dL Est GFR (CKD-EPI)AfAm 5.6 L (60.0-200.0) Est GFR (CKD-EPI)NonAf 4.8 L (60.0-200.0) BUN/Creatinine Ratio 4.80 L (12.00-20.00) Ratio POC Glucose (mg/dL) 122 H (70-110) mg/dL Free Valproic Acid (4.8-17.3) mg/L 07/22/22 07/22/22 Range/Units 07:30 11:21 RBC (4.10-5.20) X 10*6/uL Hgb (12.0-15.0) g/dL Hct (37.2-46.3) % MCHC (32.0-37.0) g/dL Immature Gran # (0.00-0.04) X 10*3/uL BUN (9.0-27.0) mg/dL Creatinine (0.6-1.5) mg/dL Est GFR (CKD-EPI)AfAm (60.0-200.0) Est GFR (CKD-EPI)NonAf (60.0-200.0) BUN/Creatinine Ratio (12.00-20.00) Ratio POC Glucose (mg/dL) 117 H 237 H (70-110) mg/dL Free Valproic Acid (4.8-17.3) mg/L Microbiology - Last 24 Hours (Table) 07/15/22 14:15 Blood Culture - Final Blood No Growth after 144 hours 07/15/22 14:00 Blood Culture - Final Blood No Growth after 144 hours Assessment and Plan Assessment: Status epilepticus. Presently under control. Patient required intubation and mechanical ventilation to protect her airways. Extubated on 07/17/22. Currently on room air. No further seizure activity. Acute hypoxic respiratory failure secondary to status epilepticus, unable to protect her airways, recovered and on room air History of CVA and residual left hemiparesis Dysphagia Type 2 diabetes. End-stage renal disease, on hemodialysis Benign essential hypertension Dyslipidemia Degenerative joint disease Plan: The patient was seen and evaluated Labs and medications reviewed Stable and on room air Continue seizure precautions Continue aspiration precautions Swallowing evaluation pending We will see as needed I have personally seen and examined the patient, performed the documentation and the assessment and plan as written. Number of minutes spent on the visit: 10.
--- NOTE | 2022-07-22 15:11 | P.PN ---
Subjective Progress Note Date: 07/21/22 07/21/2022: Patient is laying comfortably in the bed. No further seizures reported. Patient continues to have slow mentation. 07/20/2022: Patient was seen for a follow-up. Patient states she is feeling much better. No seizures. Denies headache. 07/19/2022: Patient was seen for a follow-up. Patient is laying comfortably in the bed. No further seizures reported. Patient continues to be very stiff. Her left side is more spastic. Awaiting MRI of the brain. 07/18/2022: Patient was seen for a follow-up. Patient initially seen by Dr. Cristhian Luevano. Please refer to his note for details. Patient is a 52-year-old female with history of seizure disorder. She has clinical status epilepticus that has resolved. She is known to our neurology service for recurrent seizures, and was last time seen by myself on 07/06/2022. A 2.5 hour EEG at that time reported generalized spikes seen along with some triphasic waves. At that time it was recommended to wean off Vimpat, continue low-dose Depakote 250 mg twice a day, Keppra 500 mg twice a day and extra 500 mg tablet postdialysis and zonisamide 100 mg daily was started. Apparently she was seen by neurologist and patient currently on Depakote 500 mg every 8 hours, zonisamide 100 mg daily, Keppra 500 mg twice a day with 500 mg postdialysis Monday. Also appears to be on Depakote 250 mg twice a day. Patient has very slow mentation. Per speech therapist note, patient has been made nothing by mouth, patient not able to swallow medications. She has very delayed responses and delayed speech. Poor oral phase. Some of her workup during his hospital visit consisted of : TSH: 0.708 Initial Valproic acid is 127 and repeated is 73.8 Keppra level is 7.9 CT of the head which is reported as hypodensity within the brainstem and within the left basal ganglia could be ischemic changes of and determine age. Consider follow-up MRI. I personally reviewed CT head I felt the patient had the basal ganglia changes on her prior admission and it doesn't look acute or subacute in my opinion. Regarding the brainstem CT is not the best study for brainstem but she does have hypodensity but does not look like acute or subacute in my opinion as well. CT angiography of the head and neck was reported as irregular moderate plaque at the left carotid artery bifurcation and estimated 75% stenosis origin of the left ICA carotid artery. There is approximately similar 35% stenosis right internal carotid artery. No significant intercranial and angiographic abnormality. Carotid duplex is reported as no hemodynamically significant internal carotid artery stenosis on either side. Limited overall assessment on the left side including resolution of the left PASCUAL in the left vertebral artery due to the patient condition. Plasma lactic acid venous 3.0 on presentation and improved to 1.6. EEG on 07/16/2022 is abnormal. The burst suppression is likely due to medication effect (Versed and Propofol). The background slowing suggestive of moderate encephalopathy. 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 There is no focal slowing or seizure detected during the study. Urinalysis is possible suggestive of acute urinary tract infection Urine tox screen is valproic acids 127 and the normal supposed to be between 50- 120. Her level is slightly supratherapeutic Objective - Vital Signs Vital signs: Vital Signs Temp 98.5 F 07/21/22 14:00 Pulse 94 07/21/22 14:00 Resp 16 07/21/22 14:00 BP 132/80 07/21/22 14:00 Pulse Ox 94 L 07/21/22 14:00 FiO2 35 07/17/22 18:05 Intake & Output 07/20/22 07/21/22 07/21/22 18:59 06:59 18:59 Intake Total 1250 600 Output Total 700 Balance 550 600 Weight 74.8 kg 71.5 kg Intake: Oral 950 600 Hemodialysis 300 Output: Urine 0 Hemodialysis 700 Other: Voiding Method Indwelling Catheter # Voids 1 # Bowel Movements 1 1 1 ABP, PAP, CO, CI - Last Documented Arterial Blood Pressure 115/89 - Exam Patient is awake, more alert, and better response time to answer questions. Speech and language functions appears normal. On muscle strength testing (right/left) deltoid 5-/3-4-, biceps 5/4, triceps 5/4, social work specialist 4+/4+. In the lower extremities hip flexion 3+/to, ankle dorsiflexion 4-/1-2. Patient has bilateral Babinski. - Labs CBC & Chem 7: 07/22/22 05:51 07/22/22 05:51 Labs: Abnormal Lab Results - Last 24 Hours (Table) 07/20/22 07/21/22 07/21/22 Range/Units 20:59 06:24 07:00 RBC 3.31 L (4.10-5.20) X 10*6/uL Hgb 9.4 L (12.0-15.0) g/dL Hct 30.1 L (37.2-46.3) % MCHC 31.2 L (32.0-37.0) g/dL MPV 12.5 H (9.5-12.2) fL Creatinine (0.6-1.5) mg/dL Est GFR (CKD-EPI)AfAm (60.0-200.0) Est GFR (CKD-EPI)NonAf (60.0-200.0) BUN/Creatinine Ratio (12.00-20.00) Ratio Glucose (70-110) mg/dL POC Glucose (mg/dL) 134 H 130 H (70-110) mg/dL 07/21/22 07/21/22 07/21/22 Range/Units 07:00 11:20 16:55 RBC (4.10-5.20) X 10*6/uL Hgb (12.0-15.0) g/dL Hct (37.2-46.3) % MCHC (32.0-37.0) g/dL MPV (9.5-12.2) fL Creatinine 6.3 H (0.6-1.5) mg/dL Est GFR (CKD-EPI)AfAm 8.0 L (60.0-200.0) Est GFR (CKD-EPI)NonAf 6.9 L (60.0-200.0) BUN/Creatinine Ratio 3.81 L (12.00-20.00) Ratio Glucose 126 H (70-110) mg/dL POC Glucose (mg/dL) 204 H 161 H (70-110) mg/dL Microbiology - Last 24 Hours (Table) 07/15/22 14:15 Blood Culture - Final Blood No Growth after 144 hours 07/15/22 14:00 Blood Culture - Final Blood No Growth after 144 hours Assessment and Plan Assessment: This is a 52-year-old woman with medically refractory epilepsy, VNS who presents to the hospital numerous times for breakthrough seizures. Clinical status epilepticus---resolved. Her epilepsy is not controlled. Patient is compliant with her medications. 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 History of multiple strokes. CT head revealed chronic hypodensity of left basal ganglia and bilateral cerebellum. Also a questionable area of hypodensity in the left antonino, which could be artifactual. Dysphagia. Patient initially failed swallow studies, but now she has cleared swallow. No evidence of CVA on CT head. Probable acute UTI History of stroke with residual left hemiparesis. Patient states she has histor y of 5 strokes in the past. Diabetes mellitus End-stage renal is on dialysis Hypertension Plan: * Nurse informed that patient cannot have MRI of the brain because of VNS. Patient's VNS is not compatible with MRI machine in [facility]. Repeat CT head was done. Revealed no acute ischemic process. No evidence of stroke in the brainstem. * Dr. Luevano has increased Zonegran from 100mg daily to 100mg bid. * Repeat Depakote level 92. Patient has slow mentation. We will decrease Depakote to 500 mg 3 times a day. Her Depakote level was highly elevated 127 on arrival. * Continue Keppra 500 mg every 12 hours * Vimpat 100 mg twice a day. Dr. Luevano has decreased her Vimpat from 150mg bid to 100mg bid since on last admission it was felt she had primary generalized epilepsy and Vimpat was not great drug for primary generalized epilepsy. * Zonisamide level 10 mcg per mL (10-40), Depakote 73.8, Keppra 7.9 (3-60). Repeat Depakote level 92. Depakote decreased to 500 mg 3 times a day. * I highly recommend patient to follow-up with epileptilologist since has frequent seizures/medical refractory epilepsy. Consider Epidiolex for control of seizures. * Patient has 2.5 hour EEG in our facility on 07/06/2022 (prior admission) and preliminary was reported as runs of sharp and slow waves or spike and slow wave at 2-3 Hz lasting 1 -1.5 seconds suggestive of primary generalized epilepsy. No official report yet. * Left ICA stenosis 75% on CTA but on carotid duplex no significant stenosis seen. Vascular surgery input appreciated. No indication for surgery. * Patient is on home dose Plavix 75mg daily and Lipitor 40mg qhs which is sufficient for secondary stroke prophylaxis. * PT and OT are consulted. * Will defer the rest of medical management to primary team. * For DVT prophylaxis: on subq heparin. * Neurologically clear. Recommend patient follow up with neurologist as an outpatient.
[2022-07-22 16:48] LABS: Glucose,Whole Blood 98 mg/dL (70-110)
[2022-07-22] MEDS: ATORVASTATIN 40 MG TAB PO SCH (19:48)
[2022-07-22 19:54] LABS: Glucose,Whole Blood 110 mg/dL (70-110)
[2022-07-22] MEDS: levETIRAcetam IV 500 MG in SODIUM CHLORIDE 0.9% 100 ML IVPB SCH (22:07)
[2022-07-22] MEDS: LACOSAMIDE IV 100 MG in SODIUM CHLORIDE 0.9% 50 ML IVPB SCH (23:16)
[2022-07-23] MEDS: HEPARIN SODIUM,PORCINE/PF 5,000 UNIT/0.5 ML SYRINGE SQ SCH ×3 (00:25→17:23)
[2022-07-23] MEDS: VALPROATE SODIUM 500 MG in SODIUM CHLORIDE 0.9% 100 ML IVPB SCH ×3 (02:03→17:23)
[2022-07-23] MEDS: SEVELAMER 800 MG TAB PO SCH ×3 (06:11→17:26)
[2022-07-23] MEDS: CALCIUM ACETATE 667 MG TAB PO SCH ×3 (06:11→17:26)
[2022-07-23 06:18] LABS: Glucose,Whole Blood 104 mg/dL (70-110)
[2022-07-23 08:54] LABS: Basophils # (A) 0.05 X 10*3/uL (0.00-0.10); Basophils % (A) 0.7 %; Eosinophils % (A) 1.4 %; HCT 28.6 % (37.2-46.3); HGB 9.3 g/dL (12.0-15.0); Immature Grans, Automated 1.1 %; Lymphocytes # (A) 2.42 X 10*3/uL (0.90-5.00); Lymphocytes % (A) 34.3 %; MCH 28.4 pg (27.0-32.0); MCHC 32.5 g/dL (32.0-37.0); MCV 87.2 fL (80.0-97.0); Mean Platelet Volume 12.5 fL (9.5-12.2); Monocytes # (A) 0.67 X 10*3/uL (0.20-1.00); Monocytes % (A) 9.5 %; NRBC Per 100 WBC 0 /100 WBCS (0.0-0.0); Neutrophils # (A) 3.73 X 10*3/uL (1.80-7.70); Platelet Count 206 X 10*3/uL (140-440); RBC 3.28 X 10*6/uL (4.10-5.20); RDW 14.2 % (11.5-14.5); WBC 7.05 X 10*3/uL (4.50-10.00)
[2022-07-23] MEDS: LACOSAMIDE IV 100 MG in SODIUM CHLORIDE 0.9% 50 ML IVPB SCH ×2 (09:50→21:53)
[2022-07-23] MEDS: amLODIPine 5 MG TAB PO SCH ×2 (09:51→22:26)
[2022-07-23] MEDS: PANTOPRAZOLE 40 MG/10 ML VIAL IV SCH (09:51)
[2022-07-23] MEDS: CLOPIDOGREL 75 MG TAB PO SCH (09:51)
[2022-07-23] MEDS: METOPROLOL TARTRATE 25 MG TAB PO SCH ×2 (09:51→22:26)
[2022-07-23] MEDS: ZONISAMIDE 100 MG CAP PO SCH ×2 (09:52→22:26)
[2022-07-23] MEDS: VASCEPA 1 GM PO SCH ×2 (09:52→22:26)
[2022-07-23 11:22] LABS: Glucose,Whole Blood 108 mg/dL (70-110)
[2022-07-23] MEDS: levETIRAcetam IV 500 MG in SODIUM CHLORIDE 0.9% 100 ML IVPB SCH ×2 (11:52→21:13)
--- NOTE | 2022-07-23 12:26 | P.PN ---
Subjective Patient is seen in follow-up for end-stage renal disease. She is maintained on hemodialysis on Monday schedule. No problems with dialysis yesterday. Resting in bed. Hemodynamically stable. Vital signs are stable. General: No acute distress. HEENT: Head exam is unremarkable. LUNGS: Breath sounds decreased. HEART: Rate and Rhythm are regular. ABDOMEN: Soft, no distention. EXTREMITITES: No edema. Objective - Vital Signs Vital signs: Vital Signs Temp 98.4 F 07/23/22 07:58 Pulse 77 07/23/22 07:58 Resp 16 07/23/22 07:58 BP 134/78 07/23/22 07:58 Pulse Ox 100 07/23/22 07:58 FiO2 35 07/17/22 18:05 Intake & Output 07/22/22 07/23/22 07/23/22 18:59 06:59 18:59 Intake Total 930 Output Total 2150 Balance -1220 Weight 71 kg Intake: Oral 180 Hemodialysis 750 Output: Hemodialysis 2150 Other: # Voids 1 1 # Bowel Movements 1 2 ABP, PAP, CO, CI - Last Documented Arterial Blood Pressure 115/89 - Labs CBC & Chem 7: 07/23/22 05:16 07/22/22 05:51 Labs: Abnormal Lab Results - Last 24 Hours (Table) 07/23/22 Range/Units 05:16 RBC 3.28 L (4.10-5.20) X 10*6/uL Hgb 9.3 L (12.0-15.0) g/dL Hct 28.6 L (37.2-46.3) % MPV 12.5 H (9.5-12.2) fL Immature Gran # 0.08 H (0.00-0.04) X 10*3/uL Assessment and Plan Plan: Assessment: 1. End-stage renal disease maintained on hemodialysis on Monday schedule. 2. Seizures. Being followed by neurology. 3. Left ICA stenosis. Seen by vascular surgery. 4. Hypertension with chronic kidney disease. Stable. 5. Chronic kidney disease mineral bone disease maintained on PhosLo and Renvela. Phosphorus 5.1 today. 6. Anemia of chronic kidney disease. Iron replete. On Aranesp. Plan: Hemodialysis Monday.
--- NOTE | 2022-07-23 12:39 | P.PN ---
Subjective Progress Note Date: 07/22/22 patient is a 52-year-old female with a known history ofhypertension, hyperlipidemia, diabetes type 2, history of seizure disorder and most recent seizures about a month ago, prior history of vagal nerve stimulator placed, diabetic peripheral neuropathy, ESRD on hemodialysis Monday and Monday and history of CVA/TIA and uses wheelchair, residual memory impairment, newly diagnosed obstructive sleep apnea, prior history of smoking and bipolar disorder and other medical problems was seen at dialysis clinic yesterday when she became unresponsive and was not following commands and answering questions. Patient was sent to ER for evaluation. Patient was also having nausea and episodes of vomiting. She was noted to have seizure-like activity. She did not get dialysis and was transferred to ED by EMS. On arrival to ER patient was awake alert and oriented x1 and was not holding any conversation with the staff. Previously she was admitted to the hospital from 07 03-07 06 for worsening seizu re activity. Patient was started on Zonegran along with Keppra and Depakote. Patient was also having episodes of vomiting in the ER. As per her patient has been having vomiting for the past 1 week on and off. She was also seen at [facility] earlier this week for seizure-like activity. Patient was admitted to hospital with neurology consultation. Overnight a team was called for assessment and possible status epilepticus. Patient was not following commands or make eye contact. Patient was also having episodes of emesis and concern for possible aspiration. Patient was transferred to MICU and intubated for airway protection. On admission EKG showed sinus rhythm with moderate intraventricular conduction delays. CT head showed hypodensity within the brainstem and within the left basal ganglia could be ischemic changes of intermediate age. Consider follow-up with MRI. Chest x-ray showed no acute cardiopulmonary process. Chest x-ray repeated last night showed no acute cardiopulmonary disease. Normal heart. No change. Laboratory data on admission WBC 6.7 hemoglobin 0.1 and platelets 218 Sodium 142 potassium 4.0 chloride 100 bicarb is 24 BUN 32 and creatinine 9.47 and lactic acid 3.0 and blood sugar was 288 on admission proBNP 2780 Troponin x1 negative TSH 0.708 Urinalysis showed cloudy with 3+ protein large leukocyte esterase and elevated RBCs and WBCs. Valproic acid level was 127.1. Therapeutic level is 50-1 20 CTA head and neck showed irregular moderate plaque in the left carotid artery stenosis 75% at the origin.. 07/17/2022 Patient is currently in the MICU and remains intubated and on mechanical ventilator. Propofol has been discontinued and patient remains Cleviprex. Patient is able to open her eyes but able to follow commands at this time. Pulmonary is planning to wean off with pressure support and possible extubation. Chest x-ray showed satisfactory ET and NG tube. No acute process seen. Patient is being continued on Keppra, Vimpat and Zonegran. Pulmonary and neurology is on board. Hemodialysis as per schedule. Laboratory data showed WBC 5.6 hemoglobin 10.9 platelets 203 Sodium 139 potassium 4.2 chloride 104 bicarb is 26 BUN 21 creatinine 7.22 and blood sugar is 114. Valproic acid level is 73.8 07/18/2022 Patient is in the MICU. Patient was extubated yesterday. On 2 L oxygen via nasal cannula. Patient is on Cleviprex. Awake alert and tries to communicate. Chest x-ray today showed no acute cardiopulmonary process. Patient is being continued on antiepileptic drugs and was also started on blood pressure medications this morning. CBG down to 65 this afternoon. Patient is currently nothing by mouth. Laboratory data showed WBC 7.8 hemoglobin 9.8 and platelets 172 sodium 138 potassium 4.5 chloride 104 bicarb is 24 BUN 26 and creatinine 8.95. Pulmonary, neurology and nephrology is on board. 07/19/2022 Patient is in the MICU. Resting in the bed. Awake alert and oriented but lethargic and sleepy. Requiring Cleviprex for hypertension. Requiring oxygen at 2 L via nasal cannula. Chest x-ray today showed no acute cardiopulmonary process. Nephrology and pulmonary is on board. Patient is able to swallow and Lopressor changed to by mouth. Cultures have been negative. Laboratory data showed WBC 6.6 hemoglobin 9.1 platelets 154 sodium 139 potassium 4.3 chloride 106 bicarb is 22 BUN 38 and creatinine 10.6. Patient is scheduled for hemodialysis today. 07/20/2022 Patient is in the MICU. Awake alert and oriented. Communicating slowly. Currently titrated down to room air. Patient had repeat CT scan this morning showed hypodensities within the left basal ganglia, left antonino and cerebellum are similar to 07/15/2022. Suggestive of prior injury. No new areas of suggest acute or subacute CVA. Cultures have been negative. Patient underwent hemodialysis yesterday. Cleviprex has been discontinued. No further episodes of seizures overnight. Patient is being transferred to medical floor today. Laboratory data showed WBC 6.7 hemoglobin 9.7 and platelets 151 sodium 136 potassium 3.6 chloride 102 bicarb is 27 BUN 21 and creatinine 6.95. Blood sugar is 107. 07/21/2022 Patient is in the medical floor. Awake alert and oriented but slow to respond. On room air. No complaints of chest pain or shortness of breath. No nausea vomiting abdominal pain or diarrhea. Tolerating oral diet. No further episode of seizures. Hemodialysis as per schedule Monday and Monday. Laboratory data showed WC 7.7 hemoglobin 9.4 and platelets 177 sodium 142 potassium 3.9 chloride 103 bicarb is 26.1 BUN 23.9 and creatinine 6.3. Blood sugars 126 and phosphorus 4.8. Next hemodialysis tomorrow. Anticipate discharge to rehab in the next 24 hours. 07/22/2022 Patient is currently lying in the bed. Awake alert seems to be lethargic and weak today. No complaints of nausea or vomiting. Decreased oral intake. Patient is scheduled for hemodialysis today. Also underwent fluoroscopic swallow study showed silent laryngeal penetration with pudding consistency and aspiration with a delayed cough with honey thick consistency. Patient has been afebrile. Currently patient will do Nothing by mouth. Laboratory data showed WBC 6.9 hemoglobin 8.9 platelets 196 sodium 144 potassium 4.3 chloride 103 bicarb 24.7 BUN 40.8 and creatinine 8.5 and phosphorus 5.1. Nephrology and pulmonary is on board.. Current medications reviewed. Objective - Vital Signs Vital signs: Vital Signs Temp 98.3 F 07/22/22 20:00 Pulse 95 07/22/22 20:00 Resp 17 07/22/22 20:00 BP 181/80 07/22/22 20:00 Pulse Ox 98 07/22/22 20:00 FiO2 35 07/17/22 18:05 Intake & Output 07/22/22 07/22/22 07/23/22 06:59 18:59 06:59 Intake Total 930 Output Total 2150 Balance -1220 Weight 71 kg Intake: Oral 180 Hemodialysis 750 Output: Hemodialysis 2150 Other: # Voids 1 1 # Bowel Movements 1 ABP, PAP, CO, CI - Last Documented Arterial Blood Pressure 115/89 - Exam PHYSICAL EXAMINATION: Patient is Patient is awake alert. Able to verbalize. Communicates slowly.. HEENT: Normocephalic. Neck is supple. Pupils reactive. Nostrils clear. Oral cavity is moist. Neck reveals no JVD, carotid bruits, or thyromegaly. CHEST EXAMINATION: Trachea is central. Symmetrical expansion. Bibasilar diminished sounds. No wheezing or crackles. Lung reich clear to auscultation and percussion. CARDIAC: Normal S1, S2 with no gallops. No murmurs ABDOMEN: Soft. Bowel sounds present. No organomegaly. No abdominal bruits. Extremities: Trace edema. No clubbing or cyanosis Neurologically patient is sedated intubated. No gross focal deficits noted. Left foot drop. Skin: No rash or skin lesions. Psychiatric: Could not be assessed at this time. Musculoskeletal: No joint swelling or deformity. - Labs CBC & Chem 7: 07/23/22 05:16 07/22/22 05:51 Labs: Abnormal Lab Results - Last 24 Hours (Table) 07/22/22 07/22/22 07/22/22 Range/Units 05:51 05:51 06:17 RBC 3.24 L (4.10-5.20) X 10*6/uL Hgb 8.9 L (12.0-15.0) g/dL Hct 28.2 L (37.2-46.3) % MCHC 31.6 L (32.0-37.0) g/dL Immature Gran # 0.06 H (0.00-0.04) X 10*3/uL BUN 40.8 H (9.0-27.0) mg/dL Creatinine 8.5 H* (0.6-1.5) mg/dL Est GFR (CKD-EPI)AfAm 5.6 L (60.0-200.0) Est GFR (CKD-EPI)NonAf 4.8 L (60.0-200.0) BUN/Creatinine Ratio 4.80 L (12.00-20.00) Ratio POC Glucose (mg/dL) 122 H (70-110) mg/dL 07/22/22 07/22/22 Range/Units 07:30 11:21 RBC (4.10-5.20) X 10*6/uL Hgb (12.0-15.0) g/dL Hct (37.2-46.3) % MCHC (32.0-37.0) g/dL Immature Gran # (0.00-0.04) X 10*3/uL BUN (9.0-27.0) mg/dL Creatinine (0.6-1.5) mg/dL Est GFR (CKD-EPI)AfAm (60.0-200.0) Est GFR (CKD-EPI)NonAf (60.0-200.0) BUN/Creatinine Ratio (12.00-20.00) Ratio POC Glucose (mg/dL) 117 H 237 H (70-110) mg/dL Assessment and Plan Assessment: Failed swallow study. Altered mental status likely due to e status epilepticus. Patient is extubated on 07/17.. History of refractory epilepsy with previous multiple admissions due to seizures. left ICA 75%stenosis at the origin as per CTA neck. hypodensity in the brainstem and left basal ganglia were related to previous CVA ESRD on hemodialysisMonday and Monday. History of CVA with left hemiparesis Diabetes2 I would a peripheral neuropathy Memory impairment GERD Hypertension next hyperlipidemia Hypothyroidism bipolar disorder Primary history of smoking DVT prophylaxis with heparin subcu Plan: Patient did have silent aspiration with a fluoroscopic swallow study today. Will be kept nothing by mouth. Patient is extubated 07/17/2022. off Cleviprex. initiated blood pressure medications.Blood pressure is controlled. Hemodialysis as per schedule on Monday and Monday. Repeat CT head showed no acute intracranial process. old cva changed as noted above. Started back on Zonegran, Depakote and Keppra as per neurology recommendations.Zonegran dose increased to 100 mg twice a day,Keppra additional dose 500 mg post dialysis. Patient will be continued on secondary stroke prophylaxis Plavix and Lipitor, Neurology is on board. Nephrology is on board for hemodialysis. Continue with home medications and insulin sliding scale for better blood sugar control. Follow-up closely. Prognosis is guarded with multiple medical problems and comorbid conditions. Time with Patient: Greater than 30
[2022-07-23 13:06] LABS: African American GFR (CKD) 9.1 (60.0-200.0); Anion Gap 13.7 mmol/L (10.00-18.00); BUN/Creat Ratio 3.36 Ratio (12.00-20.00); Calcium 9.6 mg/dL (8.7-10.3); Carbon Dioxide 24.5 mmol/L (20.0-27.5); Non-African American GFR(CKD) 7.9 (60.0-200.0)
[2022-07-23] MEDS: DIVALPROEX SPRINKLE 125 MG CAP.SPRINK PO SCH (15:47)
--- NOTE | 2022-07-23 16:22 | P.PN ---
Subjective Progress Note Date: 07/23/22 patient is a 52-year-old female with a known history ofhypertension, hyperlipidemia, diabetes type 2, history of seizure disorder and most recent seizures about a month ago, prior history of vagal nerve stimulator placed, diabetic peripheral neuropathy, ESRD on hemodialysis Monday and Monday and history of CVA/TIA and uses wheelchair, residual memory impairment, newly diagnosed obstructive sleep apnea, prior history of smoking and bipolar disorder and other medical problems was seen at dialysis clinic yesterday when she became unresponsive and was not following commands and answering questions. Patient was sent to ER for evaluation. Patient was also having nausea and episodes of vomiting. She was noted to have seizure-like activity. She did not get dialysis and was transferred to ED by EMS. On arrival to ER patient was awake alert and oriented x1 and was not holding any conversation with the staff. Previously she was admitted to the hospital from 07 03-07 06 for worsening seizu re activity. Patient was started on Zonegran along with Keppra and Depakote. Patient was also having episodes of vomiting in the ER. As per her patient has been having vomiting for the past 1 week on and off. She was also seen at [facility] earlier this week for seizure-like activity. Patient was admitted to hospital with neurology consultation. Overnight a team was called for assessment and possible status epilepticus. Patient was not following commands or make eye contact. Patient was also having episodes of emesis and concern for possible aspiration. Patient was transferred to MICU and intubated for airway protection. On admission EKG showed sinus rhythm with moderate intraventricular conduction delays. CT head showed hypodensity within the brainstem and within the left basal ganglia could be ischemic changes of intermediate age. Consider follow-up with MRI. Chest x-ray showed no acute cardiopulmonary process. Chest x-ray repeated last night showed no acute cardiopulmonary disease. Normal heart. No change. Laboratory data on admission WBC 6.7 hemoglobin 0.1 and platelets 218 Sodium 142 potassium 4.0 chloride 100 bicarb is 24 BUN 32 and creatinine 9.47 and lactic acid 3.0 and blood sugar was 288 on admission proBNP 2780 Troponin x1 negative TSH 0.708 Urinalysis showed cloudy with 3+ protein large leukocyte esterase and elevated RBCs and WBCs. Valproic acid level was 127.1. Therapeutic level is 50-1 20 CTA head and neck showed irregular moderate plaque in the left carotid artery stenosis 75% at the origin.. 07/17/2022 Patient is currently in the MICU and remains intubated and on mechanical ventilator. Propofol has been discontinued and patient remains Cleviprex. Patient is able to open her eyes but able to follow commands at this time. Pulmonary is planning to wean off with pressure support and possible extubation. Chest x-ray showed satisfactory ET and NG tube. No acute process seen. Patient is being continued on Keppra, Vimpat and Zonegran. Pulmonary and neurology is on board. Hemodialysis as per schedule. Laboratory data showed WBC 5.6 hemoglobin 10.9 platelets 203 Sodium 139 potassium 4.2 chloride 104 bicarb is 26 BUN 21 creatinine 7.22 and blood sugar is 114. Valproic acid level is 73.8 07/18/2022 Patient is in the MICU. Patient was extubated yesterday. On 2 L oxygen via nasal cannula. Patient is on Cleviprex. Awake alert and tries to communicate. Chest x-ray today showed no acute cardiopulmonary process. Patient is being continued on antiepileptic drugs and was also started on blood pressure medications this morning. CBG down to 65 this afternoon. Patient is currently nothing by mouth. Laboratory data showed WBC 7.8 hemoglobin 9.8 and platelets 172 sodium 138 potassium 4.5 chloride 104 bicarb is 24 BUN 26 and creatinine 8.95. Pulmonary, neurology and nephrology is on board. 07/19/2022 Patient is in the MICU. Resting in the bed. Awake alert and oriented but lethargic and sleepy. Requiring Cleviprex for hypertension. Requiring oxygen at 2 L via nasal cannula. Chest x-ray today showed no acute cardiopulmonary process. Nephrology and pulmonary is on board. Patient is able to swallow and Lopressor changed to by mouth. Cultures have been negative. Laboratory data showed WBC 6.6 hemoglobin 9.1 platelets 154 sodium 139 potassium 4.3 chloride 106 bicarb is 22 BUN 38 and creatinine 10.6. Patient is scheduled for hemodialysis today. 07/20/2022 Patient is in the MICU. Awake alert and oriented. Communicating slowly. Currently titrated down to room air. Patient had repeat CT scan this morning showed hypodensities within the left basal ganglia, left antonino and cerebellum are similar to 07/15/2022. Suggestive of prior injury. No new areas of suggest acute or subacute CVA. Cultures have been negative. Patient underwent hemodialysis yesterday. Cleviprex has been discontinued. No further episodes of seizures overnight. Patient is being transferred to medical floor today. Laboratory data showed WBC 6.7 hemoglobin 9.7 and platelets 151 sodium 136 potassium 3.6 chloride 102 bicarb is 27 BUN 21 and creatinine 6.95. Blood sugar is 107. 07/21/2022 Patient is in the medical floor. Awake alert and oriented but slow to respond. On room air. No complaints of chest pain or shortness of breath. No nausea vomiting abdominal pain or diarrhea. Tolerating oral diet. No further episode of seizures. Hemodialysis as per schedule Monday and Monday. Laboratory data showed WC 7.7 hemoglobin 9.4 and platelets 177 sodium 142 potassium 3.9 chloride 103 bicarb is 26.1 BUN 23.9 and creatinine 6.3. Blood sugars 126 and phosphorus 4.8. Next hemodialysis tomorrow. Anticipate discharge to rehab in the next 24 hours. 07/22/2022 Patient is currently lying in the bed. Awake alert seems to be lethargic and weak today. No complaints of nausea or vomiting. Decreased oral intake. Patient is scheduled for hemodialysis today. Also underwent fluoroscopic swallow study showed silent laryngeal penetration with pudding consistency and aspiration with a delayed cough with honey thick consistency. Patient has been afebrile. Currently patient will do Nothing by mouth. Laboratory data showed WBC 6.9 hemoglobin 8.9 platelets 196 sodium 144 potassium 4.3 chloride 103 bicarb 24.7 BUN 40.8 and creatinine 8.5 and phosphorus 5.1. Nephrology and pulmonary is on board.. 07/23/2022 Patient is monitored on stepdown unit today. More awake than yesterday. She is unsure whether she wants the PEG tube or not, this was discussed in extent and patient requesting to discuss with her Calvin. She continues to be NPO at this time. is agreeing with PEG tube. His overall goal is for his to get stronger and D/C to rehab when ready. Gen Surgery consulted for evaluati on. Nephrology following and making recommendations regarding hemodialysis was dialyzed yesterday. Continues on IV lacosamide, IV keppra, IV valproic acid. No further seizure activity noted. Review of Systems Constitutional: Denied any fatigue denied any fever. Cardio vascular: denied any chest pain, palpitations Gastrointestinal: denied any nausea, vomiting, diarrhea Pulmonary: Denied any shortness of breath cough Neurologic denied any new focal deficits All inpatient medications were reviewed and appropriate changes in these medications as dictated in the interval history and assessment and plan. PHYSICAL EXAMINATION: GENERAL: The patient is alert and oriented x2, not in any acute distress. Well developed, well nourished. HEENT: Pupils are round and equally reacting to light. EOMI. No scleral icterus. No conjunctival pallor. Normocephalic, atraumatic. No pharyngeal erythema. No thyromegaly. CARDIOVASCULAR: S1 and S2 present. No murmurs, rubs, or gallops. PULMONARY: Chest is clear to auscultation, no wheezing or crackles. ABDOMEN: Soft, nontender, nondistended, normoactive bowel sounds. No palpable organomegaly. MUSCULOSKELETAL: No joint swelling or deformity. EXTREMITIES: No cyanosis, clubbing, or pedal edema. NEUROLOGICAL: Continues with diffuse weakness, slurred speech SKIN: No rashes. Assessment and Plan Assessment Failed swallow study. Altered mental status likely due to estatus epilepticus. Patient is extubated on 07/17, intubated for airway protection. History of refractory epilepsy with previous multiple admissions due to seizures. left ICA 75% stenosis at the origin as per CTA neck. hypodensity in the brainstem and left basal ganglia were related to previous CVA ESRD on hemodialysis Monday and Monday. History of CVA with left hemiparesis Diabetes Mellitus type 2 Peripheral neuropathy Memory impairment GERD Hypertension Hyperlipidemia Hypothyroidism bipolar disorder Primary history of smoking DVT prophylaxis with heparin subcu GI prophylaxis Full Code Plan: Patient did have silent aspiration with a fluoroscopic swallow study, Currently NPO, continue aspiration precautions with HOB up 30* General surgery has been consulted for evaluation PEG tube placement Hemodialysis as per schedule on Monday and Monday. Started back on Zonegran, Depakote and Keppra as per neurology recommendations.Zonegran dose increased to 100 mg twice a day,Keppra additional dose 500 mg post dialysis. Patient will be continued on secondary stroke prophylaxis Plavix and Lipitor, Neurology is on board. Nephrology is on board for hemodialysis. Continue with home medications and insulin sliding scale for better blood sugar control. Subacute rehab on discharge when stable The impression and plan of care has been dictated by Kelly Yanez, Nurse Practitioner as directed. Dr. Estelle MD I have performed a history and physical examination and medical decision making of this patient, discussed the same with the dictator, and agree with the dictators assessment and plan as written, documented as a scribe. Based on total visit time, I have performed more than 50% of this visit. Objective - Vital Signs Vital signs: Vital Signs Temp 98.4 F 07/23/22 07:58 Pulse 77 07/23/22 07:58 Resp 16 07/23/22 07:58 BP 134/78 07/23/22 07:58 Pulse Ox 100 07/23/22 07:58 FiO2 35 07/17/22 18:05 Intake & Output 07/22/22 07/23/22 07/23/22 18:59 06:59 18:59 Intake Total 930 Output Total 2150 Balance -1220 Weight 71 kg Intake: Oral 180 Hemodialysis 750 Output: Hemodialysis 2150 Other: # Voids 1 1 # Bowel Movements 1 2 ABP, PAP, CO, CI - Last Documented Arterial Blood Pressure 115/89 - Labs CBC & Chem 7: 07/23/22 05:16 07/23/22 05:16 Labs: Abnormal Lab Results - Last 24 Hours (Table) 07/22/22 07/23/22 Range/Units 11:21 05:16 RBC 3.28 L (4.10-5.20) X 10*6/uL Hgb 9.3 L (12.0-15.0) g/dL Hct 28.6 L (37.2-46.3) % MPV 12.5 H (9.5-12.2) fL Immature Gran # 0.08 H (0.00-0.04) X 10*3/uL POC Glucose (mg/dL) 237 H (70-110) mg/dL Assessment and Plan Time with Patient: Greater than 30
[2022-07-23 16:35] LABS: Glucose,Whole Blood 78 mg/dL (70-110)
--- NOTE | 2022-07-23 19:06 | P.GSCN ---
History of Present Illness Consult date: 07/23/22 History of present illness: Patient seen and evaluated. Swallow study. Findings of aspiration. Gastrostomy tube placement requested. EGD with PEG tube placement while inpatient for Jul 25, 2022 Past Medical History Past Medical History: Chest Pain / Angina, CVA/TIA, Diabetes Mellitus, GERD/Reflux, Hyperlipidemia, Hypertension, Memory Impairment, Osteoarthritis (OA), Renal Disease, Seizure Disorder, Thyroid Disorder Additional Past Medical History / Comment(s): Last seizure approximately one month ago. Spouse states she used to have seizures 4X per week until she had vagal nerve stimulator placed, now has seizures approximately once a week to once a month. Dialysis MOWE[facility]. Neuropathy, left drop foot, only able to walk short distances, otherwise uses wheelchair. 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 Never diagnosed with Sleep Apnea but spouse states she does stop breathing through the night and he has to shake her to start breathing again. Varicose veins. History of Any Multi-Drug Resistant Organisms: None Reported Past Surgical History: Section, Tonsillectomy, Uterine Ablation Additional Past Surgical History / Comment(s): Left arm fistula, loop recorder, vagus nerve stimulator. Past Anesthesia/Blood Transfusion Reactions: Motion Sickness Additional Past Anesthesia/Blood Transfusion Reaction / Comm: Family hx unknown, pt adopted. Past Psychological History: Bipolar Smoking Status: Former smoker Past Alcohol Use History: None Reported Additional Past Alcohol Use History / Comment(s): Quit smoking in 2005. Past Drug Use History: None Reported - Past Family History Father Family Medical History: Unable to Obtain Additional Family Medical History / Comment(s): Pt adopted. Medications and Allergies Home Medications Medication Instructions Recorded Confirmed Type Clopidogrel [Plavix] 75 mg PO DAILY #30 tab 09/05/20 07/15/22 Rx Atorvastatin [Lipitor] 40 mg PO HS 03/23/21 07/15/22 History Dulaglutide [Trulicity] 3 mg SQ Q7D 03/23/21 07/15/22 History Sevelamer [Renvela] 800 mg PO BID-W/MEALS 03/23/21 07/15/22 History Vascepa 1gm 1 gm PO BID 03/23/21 07/15/22 History Calcium Acetate 667 mg PO TID-W/MEALS 02/25/22 07/15/22 History Metoprolol Tartrate [Lopressor] 25 mg PO BID 02/25/22 07/15/22 History Pantoprazole [Protonix] 40 mg PO DAILY 02/25/22 07/15/22 History Potassium Chloride ER [K-Dur 20] 20 meq PO BID 02/25/22 07/15/22 History levETIRAcetam [Keppra] 500 mg PO BID@0700,2100 02/25/22 07/15/22 History Divalproex ER [Depakote ER] 250 mg PO BID 30 Days #60 tab 02/28/22 07/15/22 Rx levETIRAcetam [Keppra] 500 mg PO MoWeFr@1600 30 Days #15 02/28/22 07/15/22 Rx tab Sevelamer [Renvela] 1,600 mg PO W/SUPPER 04/29/22 07/15/22 History Lacosamide [Vimpat] See Taper PO DIRECTED 21 Days 07/06/22 07/15/22 Rx #49 tab Zonisamide [Zonegran] 100 mg PO DAILY 30 Days #30 cap 07/06/22 07/15/22 Rx Divalproex [Depakote] 500 mg PO Q8H 07/15/22 07/15/22 History Allergies Allergy/AdvReac Type Severity Reaction Status Date / Time Penicillins Allergy Itching Verified 07/15/22 13:57 Surgical - Exam Vital Signs Pulse Resp BP Pulse Ox 85 16 167/86 96 07/15/22 11:22 07/15/22 11:22 07/15/22 11:22 07/15/22 11:22 Results - Labs 07/23/22 05:16 07/23/22 05:16 Abnormal Lab Results - Last 24 Hours (Table) 07/23/22 07/23/22 Range/Units 05:16 05:16 RBC 3.28 L (4.10-5.20) X 10*6/uL Hgb 9.3 L (12.0-15.0) g/dL Hct 28.6 L (37.2-46.3) % MPV 12.5 H (9.5-12.2) fL Immature Gran # 0.08 H (0.00-0.04) X 10*3/uL Creatinine 5.7 H (0.6-1.5) mg/dL Est GFR (CKD-EPI)AfAm 9.1 L (60.0-200.0) Est GFR (CKD-EPI)NonAf 7.9 L (60.0-200.0) BUN/Creatinine Ratio 3.36 L (12.00-20.00) Ratio Diabetes panel 07/23/22 Range/Units 05:16 Sodium 139 (135-145) mmol/L Potassium 5.0 (3.5-5.5) mmol/L Chloride 100 (96-109) mmol/L Carbon Dioxide 24.5 (20.0-27.5) mmol/L BUN 19.0 (9.0-27.0) mg/dL Creatinine 5.7 H (0.6-1.5) mg/dL Glucose 95 (70-110) mg/dL Calcium 9.6 (8.7-10.3) mg/dL Calcium panel 07/23/22 Range/Units 05:16 Calcium 9.6 (8.7-10.3) mg/dL Pituitary panel 07/23/22 Range/Units 05:16 Sodium 139 (135-145) mmol/L Potassium 5.0 (3.5-5.5) mmol/L Chloride 100 (96-109) mmol/L Carbon Dioxide 24.5 (20.0-27.5) mmol/L BUN 19.0 (9.0-27.0) mg/dL Creatinine 5.7 H (0.6-1.5) mg/dL Glucose 95 (70-110) mg/dL Calcium 9.6 (8.7-10.3) mg/dL Adrenal panel 07/23/22 Range/Units 05:16 Sodium 139 (135-145) mmol/L Potassium 5.0 (3.5-5.5) mmol/L Chloride 100 (96-109) mmol/L Carbon Dioxide 24.5 (20.0-27.5) mmol/L BUN 19.0 (9.0-27.0) mg/dL Creatinine 5.7 H (0.6-1.5) mg/dL Glucose 95 (70-110) mg/dL Calcium 9.6 (8.7-10.3) mg/dL
[2022-07-23 20:02] LABS: Glucose,Whole Blood 76 mg/dL (70-110)
[2022-07-23] MEDS: ATORVASTATIN 40 MG TAB PO SCH (22:26)
[2022-07-24] MEDS: VALPROATE SODIUM 500 MG in SODIUM CHLORIDE 0.9% 100 ML IVPB SCH ×3 (01:14→16:00)
[2022-07-24] MEDS: HEPARIN SODIUM,PORCINE/PF 5,000 UNIT/0.5 ML SYRINGE SQ SCH ×3 (01:17→16:00)
[2022-07-24] MEDS: CALCIUM ACETATE 667 MG TAB PO SCH ×3 (06:11→15:57)
[2022-07-24] MEDS: SEVELAMER 800 MG TAB PO SCH ×3 (06:11→15:57)
[2022-07-24 06:13] LABS: Glucose,Whole Blood 71 mg/dL (70-110)
[2022-07-24] MEDS ORDERED: DEXTROSE 5% IN WATER 1,000 ML IV ONE (07:58)
[2022-07-24] MEDS: PANTOPRAZOLE 40 MG/10 ML VIAL IV SCH (08:09)
[2022-07-24] MEDS: CLOPIDOGREL 75 MG TAB PO SCH (08:22)
[2022-07-24] MEDS: METOPROLOL TARTRATE 25 MG TAB PO SCH ×2 (08:22→19:43)
[2022-07-24] MEDS: VASCEPA 1 GM PO SCH ×2 (08:22→19:43)
[2022-07-24] MEDS: amLODIPine 5 MG TAB PO SCH ×2 (08:22→19:43)
[2022-07-24] MEDS: ZONISAMIDE 100 MG CAP PO SCH ×2 (08:23→19:44)
[2022-07-24] MEDS: levETIRAcetam IV 500 MG in SODIUM CHLORIDE 0.9% 100 ML IVPB SCH ×2 (09:27→20:58)
--- NOTE | 2022-07-24 09:36 | XR ---
EXAMINATION TYPE: XR abdomen 2V DATE OF EXAM: 07/24/2022 9:20 AM INDICATION: Patient age:Female; 52 years old; Reason for study: abdominal pain; COMPARISON: 01/11/2013 TECHNIQUE: Two views of the abdomen were obtained. FINDINGS: Retained oral contrast is seen within the ascending colon. Loop recorder present. Electroni c battery device noted in the left chest wall. The bowel gas pattern is nonspecific without dilated l oops of small or large bowel. There is no evidence for organomegaly or pneumoperitoneum. The osseous structures are intact. No abnormal calcifications are present. Fecal material and gas are demonstra chuck throughout the colon and rectum. IMPRESSION: Nonspecific bowel gas pattern without radiographic evidence for acute process.
[2022-07-24] MEDS: LACOSAMIDE IV 100 MG in SODIUM CHLORIDE 0.9% 50 ML IVPB SCH ×2 (10:04→23:32)
--- NOTE | 2022-07-24 10:44 | P.PN ---
Subjective Progress Note Date: 07/23/22 07/23/2022: Patient laying comfortably in the bed. Patient has again failed swallow. Patient to undergo PEG placement on Monday. No seizures. 07/21/2022: Patient is laying comfortably in the bed. No further seizures reported. Patient continues to have slow mentation. 07/20/2022: Patient was seen for a follow-up. Patient states she is feeling much better. No seizures. Denies headache. 07/19/2022: Patient was seen for a follow-up. Patient is laying comfortably in the bed. No further seizures reported. Patient continues to be very stiff. Her left side is more spastic. Awaiting MRI of the brain. 07/18/2022: Patient was seen for a follow-up. Patient initially seen by Dr. Cristhian Luevano. Please refer to his note for details. Patient is a 52-year-old female with history of seizure disorder. She has clinical status epilepticus that has resolved. She is known to our neurology service for recurrent seizures, and was last time seen by myself on 07/06/2022. A 2.5 hour EEG at that time reported generalized spikes seen along with some triphasic waves. At that time it was recommended to wean off Vimpat, continue low-dose Depakote 250 mg twice a day, Keppra 500 mg twice a day and extra 500 mg tablet postdialysis and zonisamide 100 mg daily was started. Apparently she was seen by neurologist and patient currently on Depakote 500 mg every 8 hours, zonisamide 100 mg daily, Keppra 500 mg twice a day with 500 mg postdialysis Monday. Also appears to be on Depakote 250 mg twice a day. Patient has very slow mentation. Per speech therapist note, patient has been made nothing by mouth, patient not able to swallow medications. She has very delayed responses and delayed speech. Poor oral phase. Some of her workup during his hospital visit consisted of : TSH: 0.708 Initial Valproic acid is 127 and repeated is 73.8 Keppra level is 7.9 CT of the head which is reported as hypodensity within the brainstem and within the left basal ganglia could be ischemic changes of and determine age. Consider follow-up MRI. I personally reviewed CT head I felt the patient had the basal ganglia changes on her prior admission and it doesn't look acute or subacute in my opinion. Regarding the brainstem CT is not the best study for brainstem but she does have hypodensity but does not look like acute or subacute in my opinion as well. CT angiography of the head and neck was reported as irregular moderate plaque at the left carotid artery bifurcation and estimated 75% stenosis origin of the left ICA carotid artery. There is approximately similar 35% stenosis right internal carotid artery. No significant intercranial and angiographic ab normality. Carotid duplex is reported as no hemodynamically significant internal carotid artery stenosis on either side. Limited overall assessment on the left side including resolution of the left PASCUAL in the left vertebral artery due to the patient condition. Plasma lactic acid venous 3.0 on presentation and improved to 1.6. EEG on 07/16/2022 is abnormal. The burst suppression is likely due to medication effect (Versed and Propofol). The background slowing suggestive of moderate encephalopathy. 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 There is no focal slowing or seizure detected during the study. Urinalysis is possible suggestive of acute urinary tract infection Urine tox screen is valproic acids 127 and the normal supposed to be between 50- 120. Her level is slightly supratherapeutic Objective - Vital Signs Vital signs: Vital Signs Temp 98.0 F 07/23/22 13:44 Pulse 78 07/23/22 13:44 Resp 18 07/23/22 13:44 BP 125/71 07/23/22 13:44 Pulse Ox 97 07/23/22 13:44 FiO2 35 07/17/22 18:05 Intake & Output 07/22/22 07/23/22 07/23/22 18:59 06:59 18:59 Intake Total 930 Output Total 2150 Balance -1220 Weight 71 kg Intake: Oral 180 Hemodialysis 750 Output: Hemodialysis 2150 Other: # Voids 1 1 # Bowel Movements 1 2 ABP, PAP, CO, CI - Last Documented Arterial Blood Pressure 115/89 - Exam Patient is awake, more alert, and better response time to answer questions. Speech and language functions appears normal. Her speech is slightly hoarse. 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 In the lower extremities hip flexion 3+/to, ankle dorsiflexion 4-/1-2. Patient has bilateral Babinski. - Labs CBC & Chem 7: 07/23/22 05:16 07/23/22 05:16 Labs: Abnormal Lab Results - Last 24 Hours (Table) 07/23/22 07/23/22 Range/Units 05:16 05:16 RBC 3.28 L (4.10-5.20) X 10*6/uL Hgb 9.3 L (12.0-15.0) g/dL Hct 28.6 L (37.2-46.3) % MPV 12.5 H (9.5-12.2) fL Immature Gran # 0.08 H (0.00-0.04) X 10*3/uL Creatinine 5.7 H (0.6-1.5) mg/dL Est GFR (CKD-EPI)AfAm 9.1 L (60.0-200.0) Est GFR (CKD-EPI)NonAf 7.9 L (60.0-200.0) BUN/Creatinine Ratio 3.36 L (12.00-20.00) Ratio Assessment and Plan Assessment: This is a 52-year-old woman with medically refractory epilepsy, VNS who presents to the hospital numerous times for breakthrough seizures. Clinical status epilepticus---resolved. Her epilepsy is not controlled. Patient is compliant with her medications. 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 History of multiple strokes. CT head revealed chronic hypodensity of left basal ganglia and bilateral cerebellum. No obvious stroke noted in the brainstem. Dysphagia. Patient initially failed swallow studies, then cleared swallow and now again failed swallow. No evidence of CVA on CT head. Patient cannot have MRI because of VNS. Probable acute UTI History of stroke with residual left hemiparesis. Patient states she has history of 5 strokes in the past. Diabetes mellitus End-stage renal is on dialysis Hypertension Plan: * Nurse informed that patient cannot have MRI of the brain because of VNS. Patient's VNS is not compatible with MRI machine in [facility]. Repeat CT head was done. Revealed no acute ischemic process. No evidence of stroke in the brainstem. * Dr. Luevano has increased Zonegran from 100mg daily to 100mg bid. * Repeat Depakote level 92. Patient has slow mentation. We will decrease Depakote to 500 mg 3 times a day. Her Depakote level was highly elevated 127 on arrival. * Continue Keppra 500 mg every 12 hours, and 500 mg extra dose every post dialysis. * Vimpat 100 mg twice a day. Dr. Luevano has decreased her Vimpat from 150mg bid to 100mg bid since on last admission it was felt she had primary generalized epilepsy and Vimpat was not great drug for primary generalized epilepsy. * All medication switched to IV form because patient is nothing by mouth. Patient to undergo pack placement on Monday. * Zonisamide level 10 mcg per mL (10-40), Depakote 73.8, Keppra 7.9 (3-60). Repeat Depakote level 92. Depakote decreased to 500 mg 3 times a day. * I highly recommend patient to follow-up with epileptilologist since has frequent seizures/medical refractory epilepsy. Consider Epidiolex for control of seizures. * Patient has 2.5 hour EEG in our facility on 07/06/2022 (prior admission) and preliminary was reported as runs of sharp and slow waves or spike and slow wave at 2-3 Hz lasting 1 -1.5 seconds suggestive of primary generalized epilepsy. No official report yet. * Left ICA stenosis 75% on CTA but on carotid duplex no significant stenosis seen. Vascular surgery input appreciated. No indication for surgery. * Patient is on home dose Plavix 75mg daily and Lipitor 40mg qhs which is sufficient for secondary stroke prophylaxis. * PT and OT are consulted. * Will defer the rest of medical management to primary team. * For DVT prophylaxis: on subq heparin.
--- NOTE | 2022-07-24 11:02 | P.PN ---
Subjective Patient is seen in follow-up for end-stage renal disease. She is maintained on hemodialysis on Monday schedule. Resting in bed. Hemodynamically stable. Objective - Vital Signs Vital signs: Vital Signs Temp 97.9 F 07/24/22 07:14 Pulse 78 07/24/22 08:00 Resp 19 07/24/22 08:00 BP 147/83 07/24/22 07:14 Pulse Ox 99 07/24/22 07:14 FiO2 35 07/17/22 18:05 Intake & Output 07/23/22 07/24/22 07/24/22 18:59 06:59 18:59 Intake Total 600 Output Total 5 Balance 600 -5 Intake: Intake, IV Titration 600 Amount Lacosamide IV 100 mg In 100 Sodium Chloride 0.9% 50 ml @ 100 mls/hr IVPB BID [facility] Rx#:[id number] Valproate Sodium 500 mg 100 In Sodium Chloride 0.9% 100 ml @ 100 mls/hr IVPB Q8HR [facility] Rx#:[id number] levETIRAcetam IV 500 mg 400 In Sodium Chloride 0.9% 100 ml @ 400 mls/hr IVPB Q12HR [facility] Rx#:[id number] Output: Urine 4 Stool 1 Other: Voiding Method Indwelling Catheter # Voids 1 1 # Bowel Movements 2 1 ABP, PAP, CO, CI - Last Documented Arterial Blood Pressure 115/89 - Exam Patient is awake, comfortable, no acute distress Examination of the heart S1 and S2 Examination lungs bilateral breath sounds are heard Abdomen is soft nontender Examination lower extremity shows no evidence of edema [place] [employer]ICE exam grossly intact - Labs CBC & Chem 7: 07/23/22 05:16 07/23/22 05:16 Labs: Abnormal Lab Results - Last 24 Hours (Table) 07/23/22 Range/Units 05:16 Creatinine 5.7 H (0.6-1.5) mg/dL Est GFR (CKD-EPI)AfAm 9.1 L (60.0-200.0) Est GFR (CKD-EPI)NonAf 7.9 L (60.0-200.0) BUN/Creatinine Ratio 3.36 L (12.00-20.00) Ratio Assessment and Plan Assessment: 1. End-stage renal disease maintained on hemodialysis on Monday schedule. 2. Seizures. Being followed by neurology. 3. Left ICA stenosis. Seen by vascular surgery. 4. Hypertension with chronic kidney disease. Stable. 5. Chronic kidney disease mineral bone disease maintained on PhosLo and Renvela. . 6. Anemia of chronic kidney disease. Iron replete. On Aranesp. Plan: Hemodialysis in a.m.
[2022-07-24 11:45] LABS: Glucose,Whole Blood 72 mg/dL (70-110)
--- NOTE | 2022-07-24 13:39 | P.PN ---
Subjective Progress Note Date: 07/24/22 patient is a 52-year-old female with a known history ofhypertension, hyperlipidemia, diabetes type 2, history of seizure disorder and most recent seizures about a month ago, prior history of vagal nerve stimulator placed, diabetic peripheral neuropathy, ESRD on hemodialysis Monday and Monday and history of CVA/TIA and uses wheelchair, residual memory impairment, newly diagnosed obstructive sleep apnea, prior history of smoking and bipolar disorder and other medical problems was seen at dialysis clinic yesterday when she became unresponsive and was not following commands and answering questions. Patient was sent to ER for evaluation. Patient was also having nausea and episodes of vomiting. She was noted to have seizure-like activity. She did not get dialysis and was transferred to ED by EMS. On arrival to ER patient was awake alert and oriented x1 and was not holding any conversation with the staff. Previously she was admitted to the hospital from 07 03-07 06 for worsening seizu re activity. Patient was started on Zonegran along with Keppra and Depakote. Patient was also having episodes of vomiting in the ER. As per her patient has been having vomiting for the past 1 week on and off. She was also seen at [facility] earlier this week for seizure-like activity. Patient was admitted to hospital with neurology consultation. Overnight a team was called for assessment and possible status epilepticus. Patient was not following commands or make eye contact. Patient was also having episodes of emesis and concern for possible aspiration. Patient was transferred to MICU and intubated for airway protection. On admission EKG showed sinus rhythm with moderate intraventricular conduction delays. CT head showed hypodensity within the brainstem and within the left basal ganglia could be ischemic changes of intermediate age. Consider follow-up with MRI. Chest x-ray showed no acute cardiopulmonary process. Chest x-ray repeated last night showed no acute cardiopulmonary disease. Normal heart. No change. Laboratory data on admission WBC 6.7 hemoglobin 0.1 and platelets 218 Sodium 142 potassium 4.0 chloride 100 bicarb is 24 BUN 32 and creatinine 9.47 and lactic acid 3.0 and blood sugar was 288 on admission proBNP 2780 Troponin x1 negative TSH 0.708 Urinalysis showed cloudy with 3+ protein large leukocyte esterase and elevated RBCs and WBCs. Valproic acid level was 127.1. Therapeutic level is 50-1 20 CTA head and neck showed irregular moderate plaque in the left carotid artery stenosis 75% at the origin.. 07/17/2022 Patient is currently in the MICU and remains intubated and on mechanical ventilator. Propofol has been discontinued and patient remains Cleviprex. Patient is able to open her eyes but able to follow commands at this time. Pulmonary is planning to wean off with pressure support and possible extubation. Chest x-ray showed satisfactory ET and NG tube. No acute process seen. Patient is being continued on Keppra, Vimpat and Zonegran. Pulmonary and neurology is on board. Hemodialysis as per schedule. Laboratory data showed WBC 5.6 hemoglobin 10.9 platelets 203 Sodium 139 potassium 4.2 chloride 104 bicarb is 26 BUN 21 creatinine 7.22 and blood sugar is 114. Valproic acid level is 73.8 07/18/2022 Patient is in the MICU. Patient was extubated yesterday. On 2 L oxygen via nasal cannula. Patient is on Cleviprex. Awake alert and tries to communicate. Chest x-ray today showed no acute cardiopulmonary process. Patient is being continued on antiepileptic drugs and was also started on blood pressure medications this morning. CBG down to 65 this afternoon. Patient is currently nothing by mouth. Laboratory data showed WBC 7.8 hemoglobin 9.8 and platelets 172 sodium 138 potassium 4.5 chloride 104 bicarb is 24 BUN 26 and creatinine 8.95. Pulmonary, neurology and nephrology is on board. 07/19/2022 Patient is in the MICU. Resting in the bed. Awake alert and oriented but lethargic and sleepy. Requiring Cleviprex for hypertension. Requiring oxygen at 2 L via nasal cannula. Chest x-ray today showed no acute cardiopulmonary process. Nephrology and pulmonary is on board. Patient is able to swallow and Lopressor changed to by mouth. Cultures have been negative. Laboratory data showed WBC 6.6 hemoglobin 9.1 platelets 154 sodium 139 potassium 4.3 chloride 106 bicarb is 22 BUN 38 and creatinine 10.6. Patient is scheduled for hemodialysis today. 07/20/2022 Patient is in the MICU. Awake alert and oriented. Communicating slowly. Currently titrated down to room air. Patient had repeat CT scan this morning showed hypodensities within the left basal ganglia, left antonino and cerebellum are similar to 07/15/2022. Suggestive of prior injury. No new areas of suggest acute or subacute CVA. Cultures have been negative. Patient underwent hemodialysis yesterday. Cleviprex has been discontinued. No further episodes of seizures overnight. Patient is being transferred to medical floor today. Laboratory data showed WBC 6.7 hemoglobin 9.7 and platelets 151 sodium 136 potassium 3.6 chloride 102 bicarb is 27 BUN 21 and creatinine 6.95. Blood sugar is 107. 07/21/2022 Patient is in the medical floor. Awake alert and oriented but slow to respond. On room air. No complaints of chest pain or shortness of breath. No nausea vomiting abdominal pain or diarrhea. Tolerating oral diet. No further episode of seizures. Hemodialysis as per schedule Monday and Monday. Laboratory data showed WC 7.7 hemoglobin 9.4 and platelets 177 sodium 142 potassium 3.9 chloride 103 bicarb is 26.1 BUN 23.9 and creatinine 6.3. Blood sugars 126 and phosphorus 4.8. Next hemodialysis tomorrow. Anticipate discharge to rehab in the next 24 hours. 07/22/2022 Patient is currently lying in the bed. Awake alert seems to be lethargic and weak today. No complaints of nausea or vomiting. Decreased oral intake. Patient is scheduled for hemodialysis today. Also underwent fluoroscopic swallow study showed silent laryngeal penetration with pudding consistency and aspiration with a delayed cough with honey thick consistency. Patient has been afebrile. Currently patient will do Nothing by mouth. Laboratory data showed WBC 6.9 hemoglobin 8.9 platelets 196 sodium 144 potassium 4.3 chloride 103 bicarb 24.7 BUN 40.8 and creatinine 8.5 and phosphorus 5.1. Nephrology and pulmonary is on board.. 07/23/2022 Patient is monitored on stepdown unit today. More awake than yesterday. She is unsure whether she wants the PEG tube or not, this was discussed in extent and patient requesting to discuss with her Calvin. She continues to be NPO at this time. is agreeing with PEG tube. His overall goal is for his to get stronger and D/C to rehab when ready. Gen Surgery consulted for evaluati on. Nephrology following and making recommendations regarding hemodialysis was dialyzed yesterday. Continues on IV lacosamide, IV keppra, IV valproic acid. No further seizure activity noted. 07/24/2021 Patient monitored on stepdown unit. Has been evaluated by surgery and will undergo EGD with PEG tube placement tomorrow. Had abdominal xray completed today showing a non acute abdomen with fecal material in the colon and rectum. Patient has been having bowel movements daily. Continues to be NPO. Continues on IV lacosamide, IV keppra, IV valproic acid. Currently afebrile, on room air, blood pressure 147/83. Review of Systems Constitutional: Denied any fatigue denied any fever. Cardio vascular: denied any chest pain, palpitations Gastrointestinal: denied any nausea, vomiting, diarrhea Pulmonary: Denied any shortness of breath cough Neurologic denied any new focal deficits All inpatient medications were reviewed and appropriate changes in these medications as dictated in the interval history and assessment and plan. PHYSICAL EXAMINATION: GENERAL: The patient is alert and oriented x2, not in any acute distress. Well developed, well nourished. HEENT: Pupils are round and equally reacting to light. EOMI. No scleral icterus. No conjunctival pallor. Normocephalic, atraumatic. No pharyngeal erythema. No thyromegaly. CARDIOVASCULAR: S1 and S2 present. No murmurs, rubs, or gallops. PULMONARY: Coarse scattered lung sounds throughout ABDOMEN: Soft, nontender, nondistended, normoactive bowel sounds. No palpable organomegaly. MUSCULOSKELETAL: No joint swelling or deformity. EXTREMITIES: No cyanosis, clubbing, or pedal edema. NEUROLOGICAL: Continues with diffuse weakness, slurred speech SKIN: No rashes. Assessment and Plan Assessment Failed swallow study. Altered mental status likely due to estatus epilepticus. Patient is extubated on 07/17, had been intubated for airway protection. History of refractory epilepsy with previous multiple admissions due to seizures. left ICA 75% stenosis at the origin as per CTA neck. hypodensity in the brainstem and left basal ganglia were related to previous CVA ESRD on hemodialysis Monday and Monday. History of CVA with left hemiparesis Diabetes Mellitus type 2 Peripheral neuropathy Memory impairment GERD Hypertension Hyperlipidemia Hypothyroidism bipolar disorder Primary history of smoking DVT prophylaxis with heparin subcu GI prophylaxis Full Code Plan: Patient did have silent aspiration with a fluoroscopic swallow study, Currently NPO, continue aspiration precautions with HOB up 30* Scheduled for EGD with PEG tube placement tomorrow Hemodialysis as per schedule on Monday and Monday. Started back on Zonegran, Depakote and Keppra as per neurology recommendations. Zonegran dose increased to 100 mg twice a day,Keppra additional dose 500 mg post dialysis. Patient will be continued on secondary stroke prophylaxis Plavix and Lipitor, Neurology is on board. Nephrology is on board for hemodialysis. Subacute rehab on discharge when stable The impression and plan of care has been dictated by Kelly Yanez, Nurse Practitioner as directed. Dr. Estelle MD I have performed a history and physical examination and medical decision making of this patient, discussed the same with the dictator, and agree with the dictators assessment and plan as written, documented as a scribe. Based on total visit time, I have performed more than 50% of this visit. Objective - Vital Signs Vital signs: Vital Signs Temp 97.9 F 07/24/22 07:14 Pulse 78 07/24/22 07:14 Resp 19 07/24/22 07:14 BP 147/83 07/24/22 07:14 Pulse Ox 99 07/24/22 07:14 FiO2 35 07/17/22 18:05 Intake & Output 07/23/22 07/24/22 07/24/22 18:59 06:59 18:59 Intake Total 600 Output Total 5 Balance 600 -5 Intake: Intake, IV Titration 600 Amount Lacosamide IV 100 mg In 100 Sodium Chloride 0.9% 50 ml @ 100 mls/hr IVPB BID [facility] Rx#:[id number] Valproate Sodium 500 mg 100 In Sodium Chloride 0.9% 100 ml @ 100 mls/hr IVPB Q8HR [facility] Rx#:[id number] levETIRAcetam IV 500 mg 400 In Sodium Chloride 0.9% 100 ml @ 400 mls/hr IVPB Q12HR [facility] Rx#:[id number] Output: Urine 4 Stool 1 Other: Voiding Method Indwelling Catheter # Voids 1 1 # Bowel Movements 2 1 ABP, PAP, CO, CI - Last Documented Arterial Blood Pressure 115/89 - Labs CBC & Chem 7: 07/23/22 05:16 07/23/22 05:16 Labs: Abnormal Lab Results - Last 24 Hours (Table) 07/23/22 Range/Units 05:16 Creatinine 5.7 H (0.6-1.5) mg/dL Est GFR (CKD-EPI)AfAm 9.1 L (60.0-200.0) Est GFR (CKD-EPI)NonAf 7.9 L (60.0-200.0) BUN/Creatinine Ratio 3.36 L (12.00-20.00) Ratio Assessment and Plan Time with Patient: Less than 30
--- NOTE | 2022-07-24 16:05 | P.PN ---
Subjective Progress Note Date: 07/24/22 07/24/2022: Patient was seen for a follow-up. Patient is laying comfortably in the bed. Patient denies headache. Patient does have dysphagia, dysarthria. Patient to undergo PEG placement in the morning. No seizures. 07/23/2022: Patient laying comfortably in the bed. Patient has again failed swallow. Patient to undergo PEG placement on Monday. No seizures. 07/21/2022: Patient is laying comfortably in the bed. No further seizures reported. Patient continues to have slow mentation. 07/20/2022: Patient was seen for a follow-up. Patient states she is feeling much better. No seizures. Denies headache. 07/19/2022: Patient was seen for a follow-up. Patient is laying comfortably in the bed. No further seizures reported. Patient continues to be very stiff. Her left side is more spastic. Awaiting MRI of the brain. 07/18/2022: Patient was seen for a follow-up. Patient initially seen by Dr. Cristhian Luevano. Please refer to his note for details. Patient is a 52-year-old female with history of seizure disorder. She has clinical status epilepticus that has resolved. She is known to our neurology service for recurrent seizures, and was last time seen by myself on 07/06/2022. A 2.5 hour EEG at that time reported generalized spikes seen along with some tri phasic waves. At that time it was recommended to wean off Vimpat, continue low- dose Depakote 250 mg twice a day, Keppra 500 mg twice a day and extra 500 mg tablet postdialysis and zonisamide 100 mg daily was started. Apparently she was seen by neurologist and patient currently on Depakote 500 mg every 8 hours, zonisamide 100 mg daily, Keppra 500 mg twice a day with 500 mg postdialysis Monday. Also appears to be on Depakote 250 mg twice a day. Patient has very slow mentation. Per speech therapist note, patient has been made nothing by mouth, patient not able to swallow medications. She has very delayed responses and delayed speech. Poor oral phase. Some of her workup during his hospital visit consisted of : TSH: 0.708 Initial Valproic acid is 127 and repeated is 73.8 Keppra level is 7.9 CT of the head which is reported as hypodensity within the brainstem and within the left basal ganglia could be ischemic changes of and determine age. Consider follow-up MRI. I personally reviewed CT head I felt the patient had the basal ganglia changes on her prior admission and it doesn't look acute or subacute in my opinion. Regarding the brainstem CT is not the best study for brainstem but she does have hypodensity but does not look like acute or subacute in my opinion as well. CT angiography of the head and neck was reported as irregular moderate plaque at the left carotid artery bifurcation and estimated 75% stenosis origin of the le ft ICA carotid artery. There is approximately similar 35% stenosis right internal carotid artery. No significant intercranial and angiographic abnormality. Carotid duplex is reported as no hemodynamically significant internal carotid artery stenosis on either side. Limited overall assessment on the left side including resolution of the left PASCUAL in the left vertebral artery due to the patient condition. Plasma lactic acid venous 3.0 on presentation and improved to 1.6. EEG on 07/16/2022 is abnormal. The burst suppression is likely due to medication effect (Versed and Propofol). The background slowing suggestive of moderate encephalopathy. 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 There is no focal slowing or seizure detected during the study. Urinalysis is possible suggestive of acute urinary tract infection Urine tox screen is valproic acids 127 and the normal supposed to be between 50- 120. Her level is slightly supratherapeutic Objective - Vital Signs Vital signs: Vital Signs Temp 97.9 F 07/24/22 07:14 Pulse 78 07/24/22 08:00 Resp 19 07/24/22 08:00 BP 147/83 07/24/22 07:14 Pulse Ox 99 07/24/22 07:14 FiO2 35 07/17/22 18:05 Intake & Output 07/23/22 07/24/22 07/24/22 18:59 06:59 18:59 Intake Total 600 Output Total 5 Balance 600 -5 Intake: Intake, IV Titration 600 Amount Lacosamide IV 100 mg In 100 Sodium Chloride 0.9% 50 ml @ 100 mls/hr IVPB BID [facility] Rx#:[id number] Valproate Sodium 500 mg 100 In Sodium Chloride 0.9% 100 ml @ 100 mls/hr IVPB Q8HR [facility] Rx#:[id number] levETIRAcetam IV 500 mg 400 In Sodium Chloride 0.9% 100 ml @ 400 mls/hr IVPB Q12HR [facility] Rx#:[id number] Output: Urine 4 Stool 1 Other: Voiding Method Indwelling Catheter # Voids 1 1 # Bowel Movements 2 1 ABP, PAP, CO, CI - Last Documented Arterial Blood Pressure 115/89 - Exam Patient is slightly groggy, but wakes up and becomes alert. Speech and language functions appears normal. Her speech is slightly hoarse and mildly spastic dysarthric . On muscle strength testing (right/left) deltoid 5-/3-4-, biceps 5/4, triceps 5/4, medical legal investigator 4+/4+. In the lower extremities hip flexion 3+/to, ankle dorsiflexion 4-/1-2. Patient is very spastic in the arms, left much more than right. No tremors at rest noted. Patient has bilateral Babinski. - Labs CBC & Chem 7: 07/23/22 05:16 07/23/22 05:16 Assessment and Plan Assessment: This is a 52-year-old woman with medically refractory epilepsy, VNS who presents to the hospital numerous times for breakthrough seizures. Clinical status epilepticus---resolved. Her epilepsy is not controlled. Patient is compliant with her medications. 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 History of multiple strokes. CT head revealed chronic hypodensity of left basal ganglia and bilateral cerebellum. No obvious stroke noted in the brainstem. Dysphagia. Patient initially failed swallow studies, then cleared swallow and now again failed swallow. No evidence of CVA on CT head. Patient cannot have MRI because of VNS. Probable acute UTI History of stroke with residual left hemiparesis. Patient states she has history of 5 strokes in the past. Diabetes mellitus End-stage renal is on dialysis Hypertension Account to 80% well. By by 80%. To 40 miles a 60 that would typically be mildly clumsy, he is overtired and divided percent better the Plan: * Nurse informed that patient cannot have MRI of the brain because of VNS. Patient's VNS is not compatible with MRI machine in [facility]. Repeat CT head was done. Revealed no acute ischemic process. No evidence of stroke in the brainstem. * Dr. Luevano has increased Zonegran from 100mg daily to 100mg bid. Resume zonisamide after PEG placement, currently on hold. * Repeat Depakote level 92. Patient has slow mentation. We will decrease Depakote to 500 mg 3 times a day. Her Depakote level was highly elevated 127 on arrival. * Continue Keppra 500 mg every 12 hours, and 500 mg extra dose every post di alysis. * Vimpat 100 mg twice a day. Dr. Luevano has decreased her Vimpat from 150mg bid to 100mg bid since on last admission it was felt she had primary generalized epilepsy and Vimpat was not great drug for primary generalized epilepsy. * All medication switched to IV form because patient is nothing by mouth. Patient to undergo PEG placement on Monday. After PEG placement, may switch back to oral medications via PEG. * Zonisamide level 10 mcg per mL (10-40), Depakote 73.8, Keppra 7.9 (3-60). Repeat Depakote level 92. Depakote decreased to 500 mg 3 times a day. * I highly recommend patient to follow-up with epileptilologist since has frequent seizures/medical refractory epilepsy. Consider Epidiolex for control of seizures. * Patient has 2.5 hour EEG in our facility on 07/06/2022 (prior admission) and preliminary was reported as runs of sharp and slow waves or spike and slow wave at 2-3 Hz lasting 1 -1.5 seconds suggestive of primary generalized epilepsy. No official report yet. * Left ICA stenosis 75% on CTA but on carotid duplex no significant stenosis seen. Vascular surgery input appreciated. No indication for surgery. * Patient is on home dose Plavix 75mg daily and Lipitor 40mg qhs which is sufficient for secondary stroke prophylaxis. * PT and OT are consulted. * Will defer the rest of medical management to primary team. * For DVT prophylaxis: on subq heparin. * Dr. Cristhian Luevano will be starting neurology service in the morning. Neurologically otherwise clear with above recommendations.
[2022-07-24 16:53] LABS: Glucose,Whole Blood 75 mg/dL (70-110)
--- NOTE | 2022-07-24 18:20 | P.PN ---
Subjective Progress Note Date: 07/24/22 CHIEF COMPLAINT: Chronic aspiration HISTORY OF PRESENT ILLNESS: The patient is a 52-year-old female with pre- existing history of aspiration with eating. General surgery is following for moderate protein malnutrition due to inadequate protein intake, prolonged NPO status from aspiration. ROS: No reports of nausea and vomiting. She is NPO. No fevers or chills. No new chest pain. No productive sputum. She has seizure disorder with bipolar disorder PHYSICAL EXAM: VITAL SIGNS: Reviewed CONSTITUTIONAL: Well developed and in no acute distress. EYES: Conjuctivae without sclera icterus. Extraocular movements grossly intact. HEAD, EARS, NOSE, THROAT: Moist buccal mucosa. Head is atraumatic, n ormocephalic. Hears conversational speech. No nasal drainage. RESPIRATORY: Non-labored respirations and equal bilateral excursions. CARDIOVASCULAR: Palpable 2+ radial pulses. ABDOMEN: No abdominal scarring. MUSCULOSKELETAL: No gross deformity of the lower extremities noted. No clubbing. No cyanosis. SKIN: Good skin turgor. Well perfused. NEUROLOGIC: Cranial nerves II through XII grossly intact. No focal or lateralizing signs. PSYCH: Flat affect. Alert and oriented to person, place and time. CLINICAL LABS: Reviewed. Hgb 9.3 yesterday. STUDIES: Abdominal xray 2 view reviewed without fee air. Retained contrast within proximal transverse colon which is redundant. This is my independent interpretation. ASSESSMENT: 1. Aspiration 2. Moderate protein malnutrition due to inadequate protein intake. 3. Seizure disorder 4. Bipolar disorder PLAN: 1. EGD with PEG tube placement reviewed. Patient is NPO status from swallow study. 2. She is elevated risk due to multiple co-morbid conditions 3. Floor Mechanic consultation for tube feed goals. 4. Benefits and risks of procedure reviewed with patient. Questions addressed. Objective - Vital Signs Vital signs: Vital Signs Temp 98.5 F 07/24/22 14:07 Pulse 80 07/24/22 14:07 Resp 20 07/24/22 14:07 BP 151/76 07/24/22 14:07 Pulse Ox 93 L 07/24/22 14:07 FiO2 35 07/17/22 18:05 Intake & Output 07/23/22 07/24/22 07/24/22 18:59 06:59 18:59 Intake Total 600 Output Total 5 Balance 600 -5 Intake: Intake, IV Titration 600 Amount Lacosamide IV 100 mg In 100 Sodium Chloride 0.9% 50 ml @ 100 mls/hr IVPB BID [facility] Rx#:[id number] Valproate Sodium 500 mg 100 In Sodium Chloride 0.9% 100 ml @ 100 mls/hr IVPB Q8HR [facility] Rx#:[id number] levETIRAcetam IV 500 mg 400 In Sodium Chloride 0.9% 100 ml @ 400 mls/hr IVPB Q12HR [facility] Rx#:[id number] Output: Urine 4 Stool 1 Other: Voiding Method Indwelling Catheter # Voids 1 1 # Bowel Movements 2 1 ABP, PAP, CO, CI - Last Documented Arterial Blood Pressure 115/89 - Labs CBC & Chem 7: 07/23/22 05:16 07/23/22 05:16
[2022-07-24] MEDS: ATORVASTATIN 40 MG TAB PO SCH (19:43)
[2022-07-24 20:50] LABS: Glucose,Whole Blood 72 mg/dL (70-110)
[2022-07-25] MEDS: HEPARIN SODIUM,PORCINE/PF 5,000 UNIT/0.5 ML SYRINGE SQ SCH ×3 (01:16→15:59)
[2022-07-25] MEDS: VALPROATE SODIUM 500 MG in SODIUM CHLORIDE 0.9% 100 ML IVPB SCH ×3 (01:16→15:59)
[2022-07-25] MEDS: SEVELAMER 800 MG TAB PO SCH ×3 (04:08→17:27)
[2022-07-25] MEDS: CALCIUM ACETATE 667 MG TAB PO SCH ×3 (04:08→17:27)
[2022-07-25 06:20] LABS: Glucose,Whole Blood 78 mg/dL (70-110)
[2022-07-25] MEDS: levETIRAcetam IV 500 MG in SODIUM CHLORIDE 0.9% 100 ML IVPB SCH ×2 (07:57→20:00)
[2022-07-25] MEDS: CLOPIDOGREL 75 MG TAB PO SCH (09:12)
[2022-07-25] MEDS: ZONISAMIDE 100 MG CAP PO SCH ×2 (09:12→19:59)
[2022-07-25] MEDS: METOPROLOL TARTRATE 25 MG TAB PO SCH ×2 (09:12→19:59)
[2022-07-25] MEDS: amLODIPine 5 MG TAB PO SCH ×2 (09:12→19:59)
[2022-07-25] MEDS: VASCEPA 1 GM PO SCH ×2 (09:12→20:15)
[2022-07-25] MEDS: PANTOPRAZOLE 40 MG/10 ML VIAL IV SCH (10:28)
[2022-07-25] MEDS: LACOSAMIDE IV 100 MG in SODIUM CHLORIDE 0.9% 50 ML IVPB SCH ×2 (10:28→22:24)
--- NOTE | 2022-07-25 10:44 | P.PN ---
Subjective Progress Note Date: 07/25/22 The patient is known to me and I saw her last during this admission on 07/17/2022 then was being care by Dr. Sosa. No further seizures. Today she is getting dialysis today. She is pending PEG tube. Please refer to Dr. Sosa's notes for further details. Objective - Vital Signs Vital signs: Vital Signs Temp 97.4 F L 07/25/22 08:00 Pulse 76 07/25/22 08:00 Resp 14 07/25/22 08:00 BP 149/71 07/25/22 08:00 Pulse Ox 96 07/25/22 08:00 FiO2 35 07/17/22 18:05 Intake & Output 07/24/22 07/25/22 07/25/22 18:59 06:59 18:59 Output Total 1 Balance -1 Weight 78 kg Output: Stool 1 Other: Voiding Method Indwelling Catheter Diaper Incontinent # Voids 1 1 # Bowel Movements 1 ABP, PAP, CO, CI - Last Documented Arterial Blood Pressure 115/89 - Exam GENERAL: The patient is lying in bed and is not in acute distress. Is getting dialysis today. NEUROLOGICAL: Higher mental function: The patient is mildly drowsy but is awakeable to voice. Is oriented to self, time. She stated she is in the hospital with options. She is moderately slow responding to questions. No aphasia or neglect. Cranial nerves: The pupils are round, equal and reactive to light. \Extraocular movement is intact no nystagmus is noted. The facial strength is normal throughout. Tongue is midline and moved [id number] without any difficulty. No dysarthria is noted and has low pitched voice. Motor: The strength is 5 over 5 throughout right side. The left side has weakness, more over the left lower than upper (able to raise upper over gravity but has 1/5 over the lower). Has somewhat increase tone over the left. Sensation: Sensation is slightly decreased over the left side to touch throughout. - Labs CBC & Chem 7: 07/23/22 05:16 07/23/22 05:16 Assessment and Plan Assessment: This is a 52-year-old woman with medically refractory epilepsy, VNS who presents to the hospital numerous times for breakthrough seizures. Clinical status epilepticus---resolved. Her epilepsy is not controlled. Patient is compliant with her medications. 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 History of multiple strokes. CT head revealed chronic hypodensity of left basal ganglia and bilateral cerebellum. No obvious stroke noted in the brainstem. Dysphagia. Patient initially failed swallow studies, then cleared swallow and now again failed swallow. No evidence of CVA on CT head. Patient cannot have MRI because of VNS. Probable acute UTI History of stroke with residual left hemiparesis. Patient states she has history of 5 strokes in the past. Diabetes mellitus End-stage renal is on dialysis Hypertension Plan: * Cannot have MRI of the brain because of VNS. Patient's VNS is not compatible with MRI machine in [facility]. Repeat CT head was done. Revealed no acute ischemic process. No evidence of stroke in the brainstem. * Zonegran was increased during this hospital because of her recurrent seizure on presentation from 100mg daily to 100mg bid. Resume zonisamide after PEG placement, currently on hold. * Repeat Depakote level 92. Patient has slow mentation. We will decrease Depakote to 500 mg 3 times a day. Her Depakote level was highly elevated 127 on arrival. * Continue Keppra 500 mg every 12 hours, and 500 mg extra dose every post dialysis. * Vimpat 100 mg twice a day. Dr. Luevano has decreased her Vimpat from 150mg bid to 100mg bid since on last admission it was felt she had primary generalized epilepsy and Vimpat was not great drug for primary generalized epilepsy. * All medication switched to IV form because patient is nothing by mouth. Patient to undergo PEG placement on Monday. After PEG placement, may switch back to oral medications via PEG. * Zonisamide level 10 mcg per mL (10-40), Depakote 73.8, Keppra 7.9 (3-60). Repeat Depakote level 92. Depakote decreased to 500 mg 3 times a day. * I highly recommend patient to follow-up with epileptilologist since has frequent seizures/medical refractory epilepsy. Consider Epidiolex for control of seizures. * Patient has 2.5 hour EEG in our facility on 07/06/2022 (prior admission) and preliminary was reported as runs of sharp and slow waves or spike and slow wave at 2-3 Hz lasting 1 -1.5 seconds suggestive of primary generalized epilepsy. No official report yet. * Left ICA stenosis 75% on CTA but on carotid duplex no significant stenosis seen. Vascular surgery input appreciated. No indication for surgery. * Patient is on home dose Plavix 75mg daily and Lipitor 40mg qhs which is sufficient for secondary stroke prophylaxis. * PT and OT are consulted. * Will defer the rest of medical management to primary team. * For DVT prophylaxis: on subq heparin. Otherwise no additional work-up. Will continue to follow if continues to be in the hospital. The plan is discussed with her nurse. Time with Patient: Less than 30
[2022-07-25 11:05] LABS: Glucose,Whole Blood 81 mg/dL (70-110)
--- NOTE | 2022-07-25 11:15 | P.PN ---
Subjective Patient is seen in follow-up for end-stage renal disease. She is maintained on hemodialysis on Monday schedule. Resting in bed. Hemodynamically stable. Seen on hemodialysis today. UF increased to about 3 L. Objective - Vital Signs Vital signs: Vital Signs Temp 97.4 F L 07/25/22 08:00 Pulse 76 07/25/22 08:00 Resp 14 07/25/22 08:00 BP 149/71 07/25/22 08:00 Pulse Ox 96 07/25/22 08:00 FiO2 35 07/17/22 18:05 Intake & Output 07/24/22 07/25/22 07/25/22 18:59 06:59 18:59 Output Total 1 Balance -1 Weight 78 kg Output: Stool 1 Other: Voiding Method Indwelling Catheter Diaper Incontinent # Voids 1 1 # Bowel Movements 1 ABP, PAP, CO, CI - Last Documented Arterial Blood Pressure 115/89 - Exam Patient is awake, comfortable, no acute distress Examination of the heart S1 and S2 Examination lungs bilateral breath sounds are heard Abdomen is soft nontender Examination lower extremity shows no evidence of edema SECURITY MANAGEMENT SPECIALIST exam grossly intact - Labs CBC & Chem 7: 07/23/22 05:16 07/23/22 05:16 Assessment and Plan Assessment: 1. End-stage renal disease maintained on hemodialysis on Monday schedule. 2. Seizures. Being followed by neurology. 3. Left ICA stenosis. Seen by vascular surgery. 4. Hypertension with chronic kidney disease. Stable. 5. Chronic kidney disease mineral bone disease maintained on PhosLo and Renvela. . 6. Anemia of chronic kidney disease. Iron replete. On Aranesp. Plan: Hemodialysis today. Increase UF to about 3 L as tolerated
[2022-07-25] MEDS ORDERED: levETIRAcetam IV 500 MG in SODIUM CHLORIDE 0.9% 100 ML IVPB SCH (12:00)
[2022-07-25 13:51] VITALS: BMI 31.4
--- NOTE | 2022-07-25 15:19 | FL ---
EXAMINATION TYPE: FL barium swallow w video DATE OF EXAM: 07/25/2022 CLINICAL HISTORY: 52-year-old female scheduled for PEG tube after aspiration and compromise swallow. Swallowing is improving, reassess for aspiration. TECHNIQUE: Deglutition study is performed utilizing thin liquid barium, honey and nectar thick liqui d barium, barium thick applesauce, and barium coated cracker. Total fluoroscopy time: 2 minutes 8 seconds. Total images: None. Real-time fluoroscopy support was provided to speech pathology. COMPARISON: 07/22/2022. FINDINGS: Swallow initiation was mildly delayed with bolus free spilling to the level of the vallecula. There i s no evidence of penetration or aspiration with any modality tested. No significant pharyngeal resid ue was appreciated. IMPRESSION: Significant interval improvement. No penetration or aspiration. Mild swallow delay remains. Please refer to speech therapist notes for further details if necessary.
[2022-07-25 17:07] LABS: Glucose,Whole Blood 84 mg/dL (70-110)
--- NOTE | 2022-07-25 17:29 | PN ---
PROGRESS NOTE DATE OF SERVICE: 07/25/2022 SUBJECTIVE: This is a 52-year-old woman, who was admitted with change in mental status and failed swallow study, has to undergo PEG tube placement today. The patient is receiving hemodialysis. About 3 L of fluid has been removed. No chest pain. No palpitations. No fever. OBJECTIVE: VITAL SIGNS: Pulse is 76, blood pressure 129/70, respirations 14. CHEST: Clear to auscultation. CARDIOVASCULAR: S1 and S2. ABDOMEN: Soft. NERVOUS SYSTEM: Nonfocal. LABORATORY DATA: Reviewed. ASSESSMENT: 1. Change in mental status, possibly status epilepticus. 2. Failed swallow study, for percutaneous endoscopic gastrostomy tube placement. 3. Refractory epilepsy. 4. Left internal carotid artery stenosis. 5. Hypodensity in the brainstem, left basal ganglia related to previous cerebrovascular accident. 6. End-stage renal disease, on hemodialysis. 7. Cerebrovascular accident. 8. Multiple medical issues. 9. Diabetes mellitus, type 2. 10.Peripheral neuropathy. RECOMMENDATIONS: Recommend to continue current medications and symptomatic treatment. PEG tube placement today. Otherwise, we will closely monitor. PT and OT evaluation. Once the PEG tube is placed, we will get Dietary evaluation. Once the tube feeding is stabilized, we will send the patient to ECF. Continue with hemodialysis in the meantime. Prognosis is guarded. Further recommendations to follow. MMODL / IJN: [id number] /
[2022-07-25] MEDS: ATORVASTATIN 40 MG TAB PO SCH (19:59)
[2022-07-25 21:04] LABS: Glucose,Whole Blood 132 mg/dL (70-110)
--- NOTE | 2022-07-25 21:06 | P.PN ---
Subjective Progress Note Date: 07/25/22 Patient had a repeat swallow study. She passed a swallow study. Tolerated. Diet. Patient had bowel movement. No abdominal pain. We'll cancel EGD with PEG tube placement. Objective - Vital Signs Vital signs: Vital Signs Temp 98.7 F 07/25/22 18:58 Pulse 83 07/25/22 18:58 Resp 18 07/25/22 18:58 BP 130/77 07/25/22 18:58 Pulse Ox 95 07/25/22 18:58 FiO2 35 07/17/22 18:05 Intake & Output 07/25/22 07/25/22 07/26/22 06:59 18:59 06:59 Intake Total 750 Output Total 1 2800 Balance - Weight 78 kg 78 kg Intake: Intake, IV Titration 450 Amount Lacosamide IV 100 mg In 50 Sodium Chloride 0.9% 50 ml @ 100 mls/hr IVPB BID [facility] Rx#:[id number] Valproate Sodium 500 mg 200 In Sodium Chloride 0.9% 100 ml @ 100 mls/hr IVPB Q8HR [facility] Rx#:[id number] levETIRAcetam IV 500 mg 200 In Sodium Chloride 0.9% 100 ml @ 400 mls/hr IVPB MoWeFr@1200 [facility] Rx#: [id number] Hemodialysis 300 Output: Stool 1 Hemodialysis 2800 Other: Voiding Method Indwelling Catheter Diaper Incontinent # Voids 1 ABP, PAP, CO, CI - Last Documented Arterial Blood Pressure 115/89 - Labs CBC & Chem 7: 07/23/22 05:16 07/23/22 05:16 Labs: Abnormal Lab Results - Last 24 Hours (Table) 07/25/22 Range/Units 21:02 POC Glucose (mg/dL) 132 H (70-110) mg/dL
[2022-07-26] MEDS: VALPROATE SODIUM 500 MG in SODIUM CHLORIDE 0.9% 100 ML IVPB SCH ×2 (00:35→08:00)
[2022-07-26] MEDS: HEPARIN SODIUM,PORCINE/PF 5,000 UNIT/0.5 ML SYRINGE SQ SCH ×4 (00:37→23:26)
[2022-07-26 06:16] LABS: Glucose,Whole Blood 104 mg/dL (70-110)
[2022-07-26] MEDS: SEVELAMER 800 MG TAB PO SCH ×4 (06:50→16:56)
[2022-07-26] MEDS: CALCIUM ACETATE 667 MG TAB PO SCH ×3 (06:50→16:52)
[2022-07-26] MEDS: METOPROLOL TARTRATE 25 MG TAB PO SCH ×2 (08:03→21:12)
[2022-07-26] MEDS: amLODIPine 5 MG TAB PO SCH ×2 (08:03→21:11)
[2022-07-26] MEDS: CLOPIDOGREL 75 MG TAB PO SCH (08:03)
[2022-07-26] MEDS: PANTOPRAZOLE 40 MG/10 ML VIAL IV SCH (08:03)
[2022-07-26] MEDS: VASCEPA 1 GM PO SCH ×2 (08:04→23:25)
[2022-07-26] MEDS: ZONISAMIDE 100 MG CAP PO SCH ×2 (08:04→23:26)
--- NOTE | 2022-07-26 08:23 | XR ---
EXAMINATION TYPE: XR chest 1V portable DATE OF EXAM: 07/26/2022 6:47 AM COMPARISON: Chest radiographs from 07/18/2022 TECHNIQUE: XR chest 1V portable Portable AP radiograph of the chest. CLINICAL INDICATION:Female, 52 years old with history of chf; FINDINGS: Lungs/Pleura: There is no evidence of pleural effusion, focal consolidation, or pneumothorax. Pulmonary vascularity: Unremarkable. Heart/mediastinum: Cardiomediastinal silhouette is unremarkable. A loop recorder projects over the le ft thorax over the heart. Musculoskeletal: No acute osseous pathology. Other: Battery pack lead terminating in the neck. IMPRESSION: No acute cardiopulmonary disease/process.
[2022-07-26] MEDS: levETIRAcetam IV 500 MG in SODIUM CHLORIDE 0.9% 100 ML IVPB SCH (09:24)
[2022-07-26] MEDS: LACOSAMIDE IV 100 MG in SODIUM CHLORIDE 0.9% 50 ML IVPB SCH (10:10)
[2022-07-26 10:14] LABS: Basophils # (A) 0.08 X 10*3/uL (0.00-0.10); Basophils % (A) 1.5 %; Eosinophils # (A) 0.09 X 10*3/uL (0.04-0.35); Eosinophils % (A) 1.6 %; HCT 32.8 % (37.2-46.3); HGB 10.1 g/dL (12.0-15.0); Lymphocytes # (A) 1.64 X 10*3/uL (0.90-5.00); Lymphocytes % (A) 29.9 %; MCH 27.4 pg (27.0-32.0); MCHC 30.8 g/dL (32.0-37.0); MCV 89.1 fL (80.0-97.0); Mean Platelet Volume 10.6 fL (9.5-12.2); Monocytes # (A) 0.59 X 10*3/uL (0.20-1.00); Monocytes % (A) 10.8 %; NRBC Per 100 WBC 0 /100 WBCS (0.0-0.0); Neutrophils # (A) 2.86 X 10*3/uL (1.80-7.70); Neutrophils % (A) 52.2 %; Platelet Count 203 X 10*3/uL (140-440); RBC 3.68 X 10*6/uL (4.10-5.20); RDW 13.8 % (11.5-14.5); WBC 5.48 X 10*3/uL (4.50-10.00)
[2022-07-26 10:23] LABS: African American GFR (CKD) 7.7 (60.0-200.0); Anion Gap 15.2 mmol/L (10.00-18.00); BUN/Creat Ratio 4.02 Ratio (12.00-20.00); Blood Urea Nitrogen 26.1 mg/dL (9.0-27.0); Calcium 9.7 mg/dL (8.7-10.3); Carbon Dioxide 22.8 mmol/L (20.0-27.5); Non-African American GFR(CKD) 6.6 (60.0-200.0); Potassium 4.2 mmol/L (3.5-5.5)
--- NOTE | 2022-07-26 10:23 | P.PN ---
Subjective Patient is seen in follow-up for end-stage renal disease. She is maintained on hemodialysis on Monday schedule. Resting in bed. Hemodynamically stable. No complaints today. Objective - Vital Signs Vital signs: Vital Signs Temp 97.7 F 07/26/22 07:49 Pulse 72 07/26/22 07:49 Resp 15 07/26/22 07:49 BP 119/75 07/26/22 07:49 Pulse Ox 97 07/26/22 07:49 FiO2 35 07/17/22 18:05 Intake & Output 07/25/22 07/26/22 07/26/22 18:59 06:59 18:59 Intake Total 750 Output Total 2800 1 Balance -2049 Weight 78 kg Intake: Intake, IV Titration 450 Amount Lacosamide IV 100 mg In 50 Sodium Chloride 0.9% 50 ml @ 100 mls/hr IVPB BID [facility] Rx#:[id number] Valproate Sodium 500 mg 200 In Sodium Chloride 0.9% 100 ml @ 100 mls/hr IVPB Q8HR [facility] Rx#:[id number] levETIRAcetam IV 500 mg 200 In Sodium Chloride 0.9% 100 ml @ 400 mls/hr IVPB MoWeFr@1200 [facility] Rx#: [id number] Hemodialysis 300 Output: Stool 1 Hemodialysis 2800 Other: Voiding Method Diaper Diaper Diaper Incontinent Incontinent Incontinent # Bowel Movements 4 ABP, PAP, CO, CI - Last Documented Arterial Blood Pressure 115/89 - Exam Patient is awake, comfortable, no acute distress Examination of the heart S1 and S2 Examination lungs bilateral breath sounds are heard Abdomen is soft nontender Examination lower extremity shows no evidence of edema ADMITTING REPRESENTATIVE exam grossly intact - Labs CBC & Chem 7: 07/26/22 07:56 07/23/22 05:16 Labs: Abnormal Lab Results - Last 24 Hours (Table) 07/25/22 07/26/22 Range/Units 21:02 07:56 RBC 3.68 L (4.10-5.20) X 10*6/uL Hgb 10.1 L (12.0-15.0) g/dL Hct 32.8 L (37.2-46.3) % MCHC 30.8 L (32.0-37.0) g/dL Immature Gran # 0.22 H (0.00-0.04) X 10*3/uL POC Glucose (mg/dL) 132 H (70-110) mg/dL Assessment and Plan Assessment: 1. End-stage renal disease maintained on hemodialysis on Monday schedule. 2. Seizures. Being followed by neurology. 3. Left ICA stenosis. Seen by vascular surgery. 4. Hypertension with chronic kidney disease. Stable. 5. Chronic kidney disease mineral bone disease maintained on PhosLo and Renvela. . 6. Anemia of chronic kidney disease. Iron replete. On Aranesp. Plan: Hemodialysis in a.m. Encourage increased oral intake. Patient did pass the barium swallow
--- NOTE | 2022-07-26 11:04 | P.PN ---
Subjective Progress Note Date: 07/26/22 The patient is seen at bedside and no further seizures. Objective - Vital Signs Vital signs: Vital Signs Temp 97.7 F 07/26/22 07:49 Pulse 72 07/26/22 07:49 Resp 15 07/26/22 07:49 BP 119/75 07/26/22 07:49 Pulse Ox 97 07/26/22 07:49 FiO2 35 07/17/22 18:05 Intake & Output 07/25/22 07/26/22 07/26/22 18:59 06:59 18:59 Intake Total 750 Output Total 2800 1 Balance -2049 Weight 78 kg Intake: Intake, IV Titration 450 Amount Lacosamide IV 100 mg In 50 Sodium Chloride 0.9% 50 ml @ 100 mls/hr IVPB BID COUNT INCLUDES THE [facility] Rx#:[id number] Valproate Sodium 500 mg 200 In Sodium Chloride 0.9% 100 ml @ 100 mls/hr IVPB Q8HR COUNT INCLUDES THE [facility] Rx#:[id number] levETIRAcetam IV 500 mg 200 In Sodium Chloride 0.9% 100 ml @ 400 mls/hr IVPB MoWeFr@1200 COUNT INCLUDES THE [facility] Rx#: [id number] Hemodialysis 300 Output: Stool 1 Hemodialysis 2800 Other: Voiding Method Diaper Diaper Diaper Incontinent Incontinent Incontinent # Bowel Movements 4 1 ABP, PAP, CO, CI - Last Documented Arterial Blood Pressure 115/89 - Exam GENERAL: The patient is lying in bed and is not in acute distress. Is getting dialysis today. NEUROLOGICAL: Higher mental function: The patient is mildly drowsy but is awakeable to voice. Is oriented to self, time. She stated she is in the hospital with options. She is moderately slow responding to questions. No aphasia or neglect. Cranial nerves: The pupils are round, equal and reactive to light. \Extraocular movement is intact no nystagmus is noted. The facial strength is normal throughout. Tongue is midline and moved [id number] without any difficulty. No dysarthria is noted and has low pitched voice. Motor: The strength is 5 over 5 throughout right side. The left side has weakness, more over the left lower than upper (able to raise upper over gravity but has 1/5 over the lower). Has somewhat increase tone over the left. Sensation: Sensation is slightly decreased over the left side to touch throughout. - Labs CBC & Chem 7: 07/26/22 07:56 07/26/22 07:56 Labs: Abnormal Lab Results - Last 24 Hours (Table) 07/25/22 07/26/22 07/26/22 Range/Units 21:02 07:56 07:56 RBC 3.68 L (4.10-5.20) X 10*6/uL Hgb 10.1 L (12.0-15.0) g/dL Hct 32.8 L (37.2-46.3) % MCHC 30.8 L (32.0-37.0) g/dL Immature Gran # 0.22 H (0.00-0.04) X 10*3/uL Creatinine 6.5 H (0.6-1.5) mg/dL Est GFR (CKD-EPI)AfAm 7.7 L (60.0-200.0) Est GFR (CKD-EPI)NonAf 6.6 L (60.0-200.0) BUN/Creatinine Ratio 4.02 L (12.00-20.00) Ratio Glucose 133 H (70-110) mg/dL POC Glucose (mg/dL) 132 H (70-110) mg/dL Assessment and Plan Assessment: This is a 52-year-old woman with medically refractory epilepsy, VNS who presents to the hospital numerous times for breakthrough seizures. Clinical status epilepticus---resolved. Her epilepsy is not controlled. Jose isa is compliant with her medications. 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 History of multiple strokes. CT head revealed chronic hypodensity of left basal ganglia and bilateral cerebellum. No obvious stroke noted in the brainstem. Dysphagia. Patient initially failed swallow studies, then cleared swallow and now again failed swallow. No evidence of CVA on CT head. Patient cannot have MRI because of VNS. Probable acute UTI History of stroke with residual left hemiparesis. Patient states she has history of 5 strokes in the past. Diabetes mellitus End-stage renal is on dialysis Hypertension Plan: * Cannot have MRI of the brain because of VNS. Patient's VNS is not compatible with MRI machine in [facility]. Repeat CT head was done. Revealed no acute ischemic process. No evidence of stroke in the brainstem. * Zonegran was increased during this hospital because of her recurrent seizure on presentation from 100mg daily to 100mg bid. Resume zonisamide after PEG placement, currently on hold. * Repeat Depakote level 92. Patient has slow mentation. We will decrease Depakote to 500 mg 3 times a day. Her Depakote level was highly elevated 127 on arrival. * Continue Keppra 500 mg every 12 hours, and 500 mg extra dose every post dialysis. * Vimpat 100 mg twice a day. Dr. Luevano has decreased her Vimpat from 150mg bid to 100mg bid since on last admission it was felt she had primary generalized epilepsy and Vimpat was not great drug for primary generalized epilepsy. * Zonisamide level 10 mcg per mL (10-40), Depakote 73.8, Keppra 7.9 (3-60). Repeat Depakote level 92. Depakote decreased to 500 mg 3 times a day. * I highly recommend patient to follow-up with epileptilologist since has frequent seizures/medical refractory epilepsy. Consider Epidiolex for control of seizures. * Patient has 2.5 hour EEG in our facility on 07/06/2022 (prior admission) and preliminary was reported as runs of sharp and slow waves or spike and slow wave at 2-3 Hz lasting 1 -1.5 seconds suggestive of primary generalized epilepsy. No official report yet. * Left ICA stenosis 75% on CTA but on carotid duplex no significant stenosis seen. Vascular surgery input appreciated. No indication for surgery. * Patient is on home dose Plavix 75mg daily and Lipitor 40mg qhs which is sufficient for secondary stroke prophylaxis. * PT and OT are consulted. * Will defer the rest of medical management to primary team. * For DVT prophylaxis: on subq heparin. Otherwise no additional work-up. Will continue to follow if continues to be in the hospital. The plan is discussed with her nurse. Time with Patient: Less than 30
[2022-07-26 11:12] LABS: Glucose,Whole Blood 158 mg/dL (70-110)
--- NOTE | 2022-07-26 14:03 | P.PN ---
Subjective Progress Note Date: 07/26/22 patient is a 52-year-old female with a known history ofhypertension, hyperlipidemia, diabetes type 2, history of seizure disorder and most recent seizures about a month ago, prior history of vagal nerve stimulator placed, diabetic peripheral neuropathy, ESRD on hemodialysis Monday and Monday and history of CVA/TIA and uses wheelchair, residual memory impairment, newly diagnosed obstructive sleep apnea, prior history of smoking and bipolar disorder and other medical problems was seen at dialysis clinic yesterday when she became unresponsive and was not following commands and answering questions. Patient was sent to ER for evaluation. Patient was also having nausea and episodes of vomiting. She was noted to have seizure-like activity. She did not get dialysis and was transferred to ED by EMS. On arrival to ER patient was awake alert and oriented x1 and was not holding any conversation with the staff. Previously she was admitted to the hospital from 07 03-07 06 for worsening se izure activity. Patient was started on Zonegran along with Keppra and Depakote. Patient was also having episodes of vomiting in the ER. As per her patient has been having vomiting for the past 1 week on and off. She was also seen at [facility] earlier this week for seizure-like activity. Patient was admitted to hospital with neurology consultation. Overnight a team was called for assessment and possible status epilepticus. Patient was not following commands or make eye contact. Patient was also having episodes of emesis and concern for possible aspiration. Patient was transferred to MICU and intubated for airway protection. On admission EKG showed sinus rhythm with moderate intraventricular conduction delays. CT head showed hypodensity within the brainstem and within the left basal ganglia could be ischemic changes of intermediate age. Consider follow-up with MRI. Chest x-ray showed no acute cardiopulmonary process. Chest x-ray repeated last night showed no acute cardiopulmonary disease. Normal heart. No change. Laboratory data on admission WBC 6.7 hemoglobin 0.1 and platelets 218 Sodium 142 potassium 4.0 chloride 100 bicarb is 24 BUN 32 and creatinine 9.47 and lactic acid 3.0 and blood sugar was 288 on admission proBNP 2780 Troponin x1 negative TSH 0.708 Urinalysis showed cloudy with 3+ protein large leukocyte esterase and elevated RBCs and WBCs. Valproic acid level was 127.1. Therapeutic level is 50-1 20 CTA head and neck showed irregular moderate plaque in the left carotid artery stenosis 75% at the origin.. 07/17/2022 Patient is currently in the MICU and remains intubated and on mechanical ventilator. Propofol has been discontinued and patient remains Cleviprex. Patient is able to open her eyes but able to follow commands at this time. Pulmonary is planning to wean off with pressure support and possible extubation. Chest x-ray showed satisfactory ET and NG tube. No acute process seen. Patient is being continued on Keppra, Vimpat and Zonegran. Pulmonary and neurology is on board. Hemodialysis as per schedule. Laboratory data showed WBC 5.6 hemoglobin 10.9 platelets 203 Sodium 139 potassium 4.2 chloride 104 bicarb is 26 BUN 21 creatinine 7.22 and blood sugar is 114. Valproic acid level is 73.8 07/18/2022 Patient is in the MICU. Patient was extubated yesterday. On 2 L oxygen via nasal cannula. Patient is on Cleviprex. Awake alert and tries to communicate. Chest x-ray today showed no acute cardiopulmonary process. Patient is being continued on antiepileptic drugs and was also started on blood pressure medications this morning. CBG down to 65 this afternoon. Patient is currently nothing by mouth. Laboratory data showed WBC 7.8 hemoglobin 9.8 and platelets 172 sodium 138 potassium 4.5 chloride 104 bicarb is 24 BUN 26 and creatinine 8.95. Pulmonary, neurology and nephrology is on board. 07/19/2022 Patient is in the MICU. Resting in the bed. Awake alert and oriented but lethargic and sleepy. Requiring Cleviprex for hypertension. Requiring oxygen at 2 L via nasal cannula. Chest x-ray today showed no acute cardiopulmonary process. Nephrology and pulmonary is on board. Patient is able to swallow and Lopressor changed to by mouth. Cultures have been negative. Laboratory data showed WBC 6.6 hemoglobin 9.1 platelets 154 sodium 139 potassium 4.3 chloride 106 bicarb is 22 BUN 38 and creatinine 10.6. Patient is scheduled for hemodialysis today. 07/20/2022 Patient is in the MICU. Awake alert and oriented. Communicating slowly. Currently titrated down to room air. Patient had repeat CT scan this morning showed hypodensities within the left basal ganglia, left antonino and cerebellum are similar to 07/15/2022. Suggestive of prior injury. No new areas of suggest acute or subacute CVA. Cultures have been negative. Patient underwent hemodialysis yesterday. Cleviprex has been discontinued. No further episodes of seizures overnight. Patient is being transferred to medical floor today. Laboratory data showed WBC 6.7 hemoglobin 9.7 and platelets 151 sodium 136 potassium 3.6 chloride 102 bicarb is 27 BUN 21 and creatinine 6.95. Blood sugar is 107. 07/21/2022 Patient is in the medical floor. Awake alert and oriented but slow to respond. On room air. No complaints of chest pain or shortness of breath. No nausea vomiting abdominal pain or diarrhea. Tolerating oral diet. No further episode of seizures. Hemodialysis as per schedule Monday and Monday. Laboratory data showed WC 7.7 hemoglobin 9.4 and platelets 177 sodium 142 potassium 3.9 chloride 103 bicarb is 26.1 BUN 23.9 and creatinine 6.3. Blood sugars 126 and phosphorus 4.8. Next hemodialysis tomorrow. Anticipate discharge to rehab in the next 24 hours. 07/22/2022 Patient is currently lying in the bed. Awake alert seems to be lethargic and weak today. No complaints of nausea or vomiting. Decreased oral intake. Patient is scheduled for hemodialysis today. Also underwent fluoroscopic swallow study showed silent laryngeal penetration with pudding consistency and aspiration with a delayed cough with honey thick consistency. Patient has been afebrile. Currently patient will do Nothing by mouth. Laboratory data showed WBC 6.9 hemoglobin 8.9 platelets 196 sodium 144 potassium 4.3 chloride 103 bicarb 24.7 BUN 40.8 and creatinine 8.5 and phosphorus 5.1. Nephrology and pulmonary is on board.. 07/23/2022 Patient is monitored on stepdown unit today. More awake than yesterday. She is unsure whether she wants the PEG tube or not, this was discussed in extent and patient requesting to discuss with her Calvin. She continues to be NPO at this time. is agreeing with PEG tube. His overall goal is for his to get stronger and D/C to rehab when ready. Gen Surgery consulted for evalu ation. Nephrology following and making recommendations regarding hemodialysis was dialyzed yesterday. Continues on IV lacosamide, IV keppra, IV valproic acid. No further seizure activity noted. 07/24/2022 Patient monitored on stepdown unit. Has been evaluated by surgery and will undergo EGD with PEG tube placement tomorrow. Had abdominal xray completed today showing a non acute abdomen with fecal material in the colon and rectum. Patient has been having bowel movements daily. Continues to be NPO. Continues on IV lacosamide, IV keppra, IV valproic acid. Currently afebrile, on room air, blood pressure 147/83. 07/26/2022 Patient is seen and evaluated in follow-up today lethargic although arousable. Nephrology and surgery following the patient along with neurology. Patient is scheduled dialysis Monday/Monday/Monday. Patient was initially scheduled to undergo EGD with PEG tube placement although reevaluated and underwent repeat swallow eval and past and reports to tolerating diet. EGD/PEG tube placement was canceled per surgery. Recommend strict aspiration precautions with nectar thickened liquids and no straws with supervision with meals and continuing to have the head of the bed elevated 30-45 at all times. Patient will be placed on dysphagia 2-3 with ground and chopped meats per speech recommendations. Will have PT/OT therapy evaluate the patient and discuss possible ECF on discharge. Patient is currently afebrile denies chest pain or shortness of breath. No re ports of nausea or vomiting noted and patient is tolerating diet Review of Systems: Constitutional: Reports fatigue denied any fever. Cardio vascular: denied any chest pain, palpitations Gastrointestinal: denied any nausea, vomiting, diarrhea, reports having bowel movements daily and tolerating diet Pulmonary: Denied any worsening shortness of breath cough Neurologic denied any new focal deficits Active Medications Amlodipine Besylate (Amlodipine 5 Mg Tab) 5 mg PO BID [facility] Last Admin: 07/26/22 08:03 Dose: 5 mg Atorvastatin Calcium (Atorvastatin 40 Mg Tab) 40 mg PO HS [facility] Last Admin: 07/25/22 19:59 Dose: 40 mg Calcium Acetate (Calcium Acetate 667 Mg Tab) 667 mg PO TID-W/MEALS [facility] Last Admin: 07/26/22 11:47 Dose: 667 mg Clopidogrel Bisulfate (Clopidogrel 75 Mg Tab) 75 mg PO DAILY [facility] Last Admin: 07/26/22 08:03 Dose: 75 mg Darbepoetin Maurizio (Darbepoetin Maurizio 40 Mcg/0.4 Ml Syringe) 40 mcg SQ Q7D [facility] Last Admin: 07/20/22 14:44 Dose: 40 mcg Divalproex Sodium (Divalproex 500 Mg Tablet.Dr) 500 mg PO TID [facility] Heparin Sodium (Porcine) (Heparin Sodium,Porcine/Pf 5,000 Unit/0.5 Ml Syringe) 5,000 unit SQ Q8HR [facility] Last Admin: 07/26/22 08:01 Dose: 5,000 unit Acetaminophen 1,000 mg/ IV (Solution) 100 mls @ 400 mls/hr IVPB Q6H PRN PRN Reason: Fever and/ or Pain Last Admin: 07/25/22 03:19 Dose: 400 mls/hr Lacosamide (Lacosamide 50 Mg Tablet) 100 mg PO BID [facility] Levetiracetam (Levetiracetam 500 Mg Tab) 500 mg PO Q12HR [facility] Levetiracetam (Levetiracetam 500 Mg Tab) 500 mg PO MOWEFR@1800 [facility] Metoprolol Tartrate (Metoprolol Tartrate 25 Mg Tab) 25 mg PO BID [facility] Last Admin: 07/26/22 08:03 Dose: 25 mg Naloxone HCl (Naloxone 0.4 Mg/Ml 1 Ml Vial) 0.2 mg IV Q2M PRN PRN Reason: Opioid Reversal Non-Formulary Medication (Vascepa 1gm) 1 gm PO BID [facility] Last Admin: 07/26/22 08:04 Dose: Not Given Ondansetron HCl (Ondansetron 4 Mg/2 Ml Vial) 4 mg IVP Q8HR PRN PRN Reason: Nausea And Vomiting Pantoprazole Sodium (Pantoprazole 40 Mg/10 Ml Vial) 40 mg IV DAILY [facility] Last Admin: 07/26/22 08:03 Dose: 40 mg Sevelamer Carbonate (Sevelamer 800 Mg Tab) 800 mg PO BID@0730,1230 [facility] Last Admin: 07/26/22 11:47 Dose: 800 mg Sevelamer Carbonate (Sevelamer 800 Mg Tab) 1,600 mg PO W/SUPPER [facility] Last Admin: 07/25/22 17:27 Dose: 1,600 mg Zonisamide (Zonisamide 100 Mg Cap) 100 mg PO Q12HR [facility] Last Admin: 07/26/22 08:04 Dose: 100 mg PHYSICAL EXAMINATION: GENERAL: The patient is alert and oriented x2, not in any acute distress. Well developed, well nourished. HEENT: Pupils are round and equally reacting to light. EOMI. No scleral icterus. No conjunctival pallor. Normocephalic, atraumatic. No pharyngeal erythema. No thyromegaly. CARDIOVASCULAR: S1 and S2 present. No murmurs, rubs, or gallops. PULMONARY: Coarse scattered lung sounds throughout ABDOMEN: Soft, nontender, nondistended, normoactive bowel sounds. No palpable organomegaly. MUSCULOSKELETAL: No joint swelling or deformity. EXTREMITIES: No cyanosis, clubbing, or pedal edema. NEUROLOGICAL: Continues with diffuse weakness, slurred speech SKIN: No rashes. Assessment: Altered mental status likely due to status epilepticus. Patient is extubated on 07/17, had been intubated for airway protection. Failed swallow study, considering PEG tube placement History of refractory epilepsy with previous multiple admissions due to seizures. left ICA 75% stenosis at the origin as per CTA neck. hypodensity in the brainstem and left basal ganglia were related to previous CVA ESRD on hemodialysis Monday and Monday. History of CVA with left hemiparesis Diabetes Mellitus type 2 Peripheral neuropathy Memory impairment GERD Hypertension Hyperlipidemia Hypothyroidism bipolar disorder Primary history of smoking DVT prophylaxis with heparin subcu GI prophylaxis Full Code Plan: Patient being followed by multiple medical consultations including nephrology and maintained on Monday/Monday/Monday dialysis Patient has been seen and evaluated by general surgery and initially recommending EGD with PEG tube placement although will undergo EGD tomorrow and will not be receiving a PEG tube Neurology following as well recommending to continue with current medication regimen and outpatient follow-up PT/OT therapy to evaluate the patient with possible ECF once stabilized and discharged Recommend continue monitoring Accu-Cheks before meals and at bedtime Patient did have silent aspiration with a fluoroscopic swallow study initially and speech reevaluated and underwent a videofluoroscopic swallow and passed recommending dysphagia ground with aspiration precautions Recommend head of the bed elevated 30-45 at all times with supervision with meals and nectar thickened liquids with no straws and supervision with meals Nursing staff reports she will undergo an EGD tomorrow although surgery note reports canceling EGD and PEG tube. Will follow-up with surgery Due to multiple complex medical issues, prognosis is guarded The impression and plan of care has been dictated by Hodan Castillo, Nurse Practitioner as directed. Dr. Marques MD I have performed a history and examination and MDM of this patient, discussed th e same with the dictator, and agree with the dictator's assessment and plan as written ,documented as a scribe. Based on total visit time, I have performed more than 50% of the visit. Objective - Vital Signs Vital signs: Vital Signs Temp 97.7 F 07/26/22 07:49 Pulse 72 07/26/22 07:49 Resp 15 07/26/22 07:49 BP 119/75 07/26/22 07:49 Pulse Ox 97 07/26/22 07:49 FiO2 35 07/17/22 18:05 Intake & Output 07/25/22 07/26/22 07/26/22 18:59 06:59 18:59 Intake Total 750 Output Total 2800 1 Balance -2049 Weight 78 kg Intake: Intake, IV Titration 450 Amount Lacosamide IV 100 mg In 50 Sodium Chloride 0.9% 50 ml @ 100 mls/hr IVPB BID [facility] Rx#:[id number] Valproate Sodium 500 mg 200 In Sodium Chloride 0.9% 100 ml @ 100 mls/hr IVPB Q8HR [facility] Rx#:[id number] levETIRAcetam IV 500 mg 200 In Sodium Chloride 0.9% 100 ml @ 400 mls/hr IVPB MoWeFr@1200 [facility] Rx#: [id number] Hemodialysis 300 Output: Stool 1 Hemodialysis 2800 Other: Voiding Method Diaper Diaper Diaper Incontinent Incontinent Incontinent # Bowel Movements 4 1 ABP, PAP, CO, CI - Last Documented Arterial Blood Pressure 115/89 - Labs CBC & Chem 7: 07/26/22 07:56 07/26/22 07:56 Labs: Abnormal Lab Results - Last 24 Hours (Table) 07/25/22 07/26/22 07/26/22 Range/Units 21:02 07:56 07:56 RBC 3.68 L (4.10-5.20) X 10*6/uL Hgb 10.1 L (12.0-15.0) g/dL Hct 32.8 L (37.2-46.3) % MCHC 30.8 L (32.0-37.0) g/dL Immature Gran # 0.22 H (0.00-0.04) X 10*3/uL Creatinine 6.5 H (0.6-1.5) mg/dL Est GFR (CKD-EPI)AfAm 7.7 L (60.0-200.0) Est GFR (CKD-EPI)NonAf 6.6 L (60.0-200.0) BUN/Creatinine Ratio 4.02 L (12.00-20.00) Ratio Glucose 133 H (70-110) mg/dL POC Glucose (mg/dL) 132 H (70-110) mg/dL 07/26/22 Range/Units 11:11 RBC (4.10-5.20) X 10*6/uL Hgb (12.0-15.0) g/dL Hct (37.2-46.3) % MCHC (32.0-37.0) g/dL Immature Gran # (0.00-0.04) X 10*3/uL Creatinine (0.6-1.5) mg/dL Est GFR (CKD-EPI)AfAm (60.0-200.0) Est GFR (CKD-EPI)NonAf (60.0-200.0) BUN/Creatinine Ratio (12.00-20.00) Ratio Glucose (70-110) mg/dL POC Glucose (mg/dL) 158 H (70-110) mg/dL
--- NOTE | 2022-07-26 14:59 | P.PN ---
Subjective Progress Note Date: 07/26/22 CHIEF COMPLAINT: Silent aspiration on swallow study HISTORY OF PRESENT ILLNESS: Patient evaluated by speech therapy. She has passed her repeat swallow evaluations. She is tolerating diet. Denies any abdominal pain. Denies any nausea or vomiting. Afebrile. WBC is 5.48 Hgb 10.1 platelets 203 sodium is 135 potassium 4.2 creatinine 6.5 PHYSICAL EXAM: VITAL SIGNS: Reviewed GENERAL: Well-developed in no acute distress. HEENT: No sclera icterus. Extraocular movements grossly intact. Moist buccal mucosa. Head is atraumatic, normocephalic. Hears conversational speech. No nasal drainage. NECK: Supple without lymphadenopathy. CHEST: Non-labored respirations and equal bilateral excursions. CARDIOVASCULAR: Palpable 2+ radial pulses. ABDOMEN: Soft. Nondistended. Nontender. MUSCULOSKELETAL: No clubbing or cyanosis. NEUROLOGIC: No focal or lateralizing signs. Cranial nerves II through XII grossly intact. PSYCH: Appropriate affect. Alert and oriented to person, place and time. SKIN: Well perfused. Good skin turgor. ASSESSMENT: 1. Silent aspiration on initial swallow study. Patient passed her repeat swallow evaluations PLAN: -Patient is tolerating diet. No need for PEG tube at this time. -Surgical service will sign off. Please call with any questions or concerns. Physician [employer] Consultant note has been reviewed by physician. Signing provider agrees with the documented findings, assessment, and plan of care. Objective - Vital Signs Vital signs: Vital Signs Temp 98.2 F 07/26/22 14:00 Pulse 73 07/26/22 14:00 Resp 16 07/26/22 14:00 BP 126/73 07/26/22 14:00 Pulse Ox 98 07/26/22 14:00 FiO2 35 07/17/22 18:05 Intake & Output 07/25/22 07/26/22 07/26/22 18:59 06:59 18:59 Intake Total 750 Output Total 2800 1 Balance -2049 Weight 78 kg Intake: Intake, IV Titration 450 Amount Lacosamide IV 100 mg In 50 Sodium Chloride 0.9% 50 ml @ 100 mls/hr IVPB BID [facility] Rx#:[id number] Valproate Sodium 500 mg 200 In Sodium Chloride 0.9% 100 ml @ 100 mls/hr IVPB Q8HR [facility] Rx#:[id number] levETIRAcetam IV 500 mg 200 In Sodium Chloride 0.9% 100 ml @ 400 mls/hr IVPB MoWeFr@1200 [facility] Rx#: [id number] Hemodialysis 300 Output: Stool 1 Hemodialysis 2800 Other: Voiding Method Diaper Diaper Diaper Incontinent Incontinent Incontinent # Bowel Movements 4 1 ABP, PAP, CO, CI - Last Documented Arterial Blood Pressure 115/89 - Labs CBC & Chem 7: 07/26/22 07:56 07/26/22 07:56 Labs: Abnormal Lab Results - Last 24 Hours (Table) 07/25/22 07/26/22 07/26/22 Range/Units 21:02 07:56 07:56 RBC 3.68 L (4.10-5.20) X 10*6/uL Hgb 10.1 L (12.0-15.0) g/dL Hct 32.8 L (37.2-46.3) % MCHC 30.8 L (32.0-37.0) g/dL Immature Gran # 0.22 H (0.00-0.04) X 10*3/uL Creatinine 6.5 H (0.6-1.5) mg/dL Est GFR (CKD-EPI)AfAm 7.7 L (60.0-200.0) Est GFR (CKD-EPI)NonAf 6.6 L (60.0-200.0) BUN/Creatinine Ratio 4.02 L (12.00-20.00) Ratio Glucose 133 H (70-110) mg/dL POC Glucose (mg/dL) 132 H (70-110) mg/dL 07/26/22 Range/Units 11:11 RBC (4.10-5.20) X 10*6/uL Hgb (12.0-15.0) g/dL Hct (37.2-46.3) % MCHC (32.0-37.0) g/dL Immature Gran # (0.00-0.04) X 10*3/uL Creatinine (0.6-1.5) mg/dL Est GFR (CKD-EPI)AfAm (60.0-200.0) Est GFR (CKD-EPI)NonAf (60.0-200.0) BUN/Creatinine Ratio (12.00-20.00) Ratio Glucose (70-110) mg/dL POC Glucose (mg/dL) 158 H (70-110) mg/dL
[2022-07-26] MEDS ORDERED: DIVALPROEX 500 MG TABLET.DR PO SCH (16:00)
[2022-07-26 16:23] LABS: Glucose,Whole Blood 144 mg/dL (70-110)
[2022-07-26] MEDS: DIVALPROEX SPRINKLE 125 MG CAP.SPRINK PO SCH ×2 (16:53→21:13)
[2022-07-26 21:04] LABS: Glucose,Whole Blood 177 mg/dL (70-110)
[2022-07-26] MEDS: LACOSAMIDE 50 MG TABLET PO SCH (21:11)
[2022-07-26] MEDS: ATORVASTATIN 40 MG TAB PO SCH (21:13)
[2022-07-26] MEDS: levETIRAcetam 500 MG TAB PO SCH (21:14)
[2022-07-27 06:13] LABS: Glucose,Whole Blood 114 mg/dL (70-110)
[2022-07-27] MEDS: SEVELAMER 800 MG TAB PO SCH ×3 (06:38→16:18)
[2022-07-27] MEDS: CALCIUM ACETATE 667 MG TAB PO SCH ×3 (06:38→16:18)
[2022-07-27] MEDS: CLOPIDOGREL 75 MG TAB PO SCH (09:10)
[2022-07-27] MEDS: amLODIPine 5 MG TAB PO SCH (09:10)
[2022-07-27] MEDS: HEPARIN SODIUM,PORCINE/PF 5,000 UNIT/0.5 ML SYRINGE SQ SCH ×2 (09:10→16:17)
[2022-07-27] MEDS: DIVALPROEX SPRINKLE 125 MG CAP.SPRINK PO SCH ×2 (09:11→16:18)
[2022-07-27] MEDS: LACOSAMIDE 50 MG TABLET PO SCH (09:11)
[2022-07-27] MEDS: PANTOPRAZOLE 40 MG/10 ML VIAL IV SCH (09:12)
[2022-07-27] MEDS: levETIRAcetam 500 MG TAB PO SCH (09:12)
[2022-07-27] MEDS: METOPROLOL TARTRATE 25 MG TAB PO SCH (09:12)
[2022-07-27] MEDS: ZONISAMIDE 100 MG CAP PO SCH (09:13)
[2022-07-27] MEDS: VASCEPA 1 GM PO SCH (09:13)
[2022-07-27] MEDS: DARBEPOETIN ALFA 40 MCG/0.4 ML SYRINGE SQ SCH (09:15)
[2022-07-27 11:13] LABS: Glucose,Whole Blood 94 mg/dL (70-110)
--- NOTE | 2022-07-27 12:30 | P.PN ---
Subjective Patient is seen in follow-up for end-stage renal disease. She is maintained on hemodialysis on Monday schedule. Resting in bed. Hemodynamically stable. No complaints today. Seen on hemodialysis. Tolerating treatment well Objective - Vital Signs Vital signs: Vital Signs Temp 97.8 F 07/27/22 07:32 Pulse 75 07/27/22 07:32 Resp 15 07/27/22 07:32 BP 157/80 07/27/22 07:32 Pulse Ox 97 07/27/22 07:32 FiO2 35 07/17/22 18:05 Intake & Output 07/26/22 07/27/22 07/27/22 18:59 06:59 18:59 Weight 70.5 kg Other: Voiding Method Diaper Incontinent # Bowel Movements 1 2 ABP, PAP, CO, CI - Last Documented Arterial Blood Pressure 115/89 - Exam Patient is awake, comfortable, no acute distress Examination of the heart S1 and S2 Examination lungs bilateral breath sounds are heard Abdomen is soft nontender Examination lower extremity shows no evidence of edema WATER QUALITY TECHNICIAN exam grossly intact - Labs CBC & Chem 7: 07/26/22 07:56 07/26/22 07:56 Labs: Abnormal Lab Results - Last 24 Hours (Table) 07/26/22 07/26/22 07/27/22 Range/Units 16:22 21:01 06:08 POC Glucose (mg/dL) 144 H 177 H 114 H (70-110) mg/dL Assessment and Plan Assessment: 1. End-stage renal disease maintained on hemodialysis on Monday schedule. 2. Seizures. Being followed by neurology. No further seizures 3. Left ICA stenosis. Seen by vascular surgery. 4. Hypertension with chronic kidney disease. Stable. 5. Chronic kidney disease mineral bone disease maintained on PhosLo and Renvela. . 6. Anemia of chronic kidney disease. Iron replete. On Aranesp. Plan: Hemodialysis today Encourage increased oral intake. Patient did pass the barium swallow
--- NOTE | 2022-07-27 12:57 | P.DS ---
Providers Date of admission: 07/15/22 13:24 Expected date of discharge: 07/27/22 Attending physician: Arnulfo Jones Consults: 07/15/22 14:29 Consult Physician Urgent Consulting Provider: Cristhian Luevano Consult Reason/Comments: Altered mental status, possible subacute lacunar infarct on CT Do you want consulting provider notified?: Yes 07/15/22 14:30 Consult Physician Urgent Consulting Provider: Rosaline Villaseñor Consult Reason/Comments: Chronic renal failure on dialysis, missed dialysis today due to AMS Do you want consulting provider notified?: Yes 07/15/22 23:18 Consult Physician Stat Consulting Provider: Rajesh Hernandez Consult Reason/Comments: ICU management Do you want consulting provider notified?: Already Contacted 07/25/22 11:18 Consult Physician Routine Consulting Provider: [facility] Consult Reason/Comments: [facility] Do you want consulting provider notified?: Yes Primary care physician: Stated None Hospital Course: Final diagnosis Altered mental status likely due to status epilepticus. Patient is extubated on 07/17, had been intubated for airway protection. Failed swallow study initially although reevaluated and passed recommend to continue with dysphagia diet and aspiration precautions History of refractory epilepsy with previous multiple admissions due to seizures. left ICA 75% stenosis at the origin as per CTA neck. hypodensity in the brainstem and left basal ganglia were related to previous CVA ESRD on hemodialysis Monday and Monday. History of CVA with left hemiparesis Diabetes Mellitus type 2 Peripheral neuropathy Memory impairment GERD Hypertension Hyperlipidemia Hypothyroidism bipolar disorder Primary history of smoking DVT prophylaxis with heparin subcu GI prophylaxis Full Code Discharge disposition Patient is being discharged in a stable condition with guarded prognosis to [facility] . Patient will follow-up with Dr. Taylor in the outpatient setting upon discharge. Patient is to continue with hemodialysis as scheduled on Monday/Monday/Monday. Total time taken is greater than 35 minutes. Hospital course This is a 52-year-old female who was recently admitted with altered mental status most likely status epilepticus and intubated initially to maintain airway patency and extubated. Patient continued to be lethargic although slowly improved underwent repeat swallow eval and was successful recommending dysphagia diet with aspiration precautions and thickened liquids. Patient to follow up with neurology outpatient and continue current medication regimen. Patient also has end-stage renal disease on dialysis Monday/Monday/Monday and will continue in close outpatient follow-up with nephrology. Patient to follow-up with her neurologist outpatient as well. Patient continues with significant weakness and will be going to [facility] today. Patient has been cleared by consultations. Please refer to previous documentations along with consultation documentations for further HPI. Currently no reports of chest pain, shortness of breath, or palpitations. Patient is afebrile. No reports of nausea or vomiting and patient is tolerating diet. Patient will be going to [facility] today. Guarded prognosis and patient is high risk for multiple hospitalizations and readmissions. Physical exam: Gen: This is a 52-year-old female who is awake, alert and oriented 2, her baseline, well-developed, well-nourished HEENT: Head is atraumatic, normocephalic. Pupils equal, round. Sclerae is anicteric. NECK: Supple. No JVD. No lymphadenopathy. No thyromegaly. LUNGS: Diminished breath sounds bilaterally with some scattered rhonchi noted. No intercostal retractions. HEART: S1, S2 are muffled ABDOMEN: Soft. Bowel sounds are present. No masses. No tenderness. EXTREMITIES: No pedal edema. No calf tenderness. NEUROLOGICAL: Patient is awake, alert and oriented x3. Cranial nerves 2 through 12 are grossly intact. Diffusely weak Please refer to medication reconciliation sheet for a list of medications. The impression and plan of care has been dictated by Hodan Castillo, Nurse Practitioner as directed. Dr. Marques MD I have performed a history and examination and MDM of this patient, discussed the same with the dictator, and agree with the dictator's assessment and plan as written ,documented as a scribe. Based on total visit time, I have performed more than 50% of the visit. Patient Condition at Discharge: Fair Plan - Discharge Summary Discharge Rx Participant: Yes New Discharge Prescriptions: New Heparin Sodium,Porcine [Heparin Sodium] 5,000 unit SQ Q12HR 30 Days #60 each Lacosamide [Vimpat] 100 mg PO BID #6 tab Darbepoetin Maurizio [Aranesp] 40 mcg SQ Q7D each Divalproex Sprinkle [Depakote Sprinkle] 500 mg PO TID cap levETIRAcetam [Keppra] 500 mg PO MOWEFR@1800 tab levETIRAcetam [Keppra] 500 mg PO Q12HR tab Metoprolol Tartrate [Lopressor] 25 mg PO BID tab amLODIPine [Norvasc] 5 mg PO BID tab Continue Clopidogrel [Plavix] 75 mg PO DAILY #30 tab Atorvastatin [Lipitor] 40 mg PO HS Vascepa 1gm 1 gm PO BID Sevelamer [Renvela] 800 mg PO BID-W/MEALS Calcium Acetate 667 mg PO TID-W/MEALS Pantoprazole [Protonix] 40 mg PO DAILY Sevelamer [Renvela] 1,600 mg PO W/SUPPER Lacosamide [Vimpat] See Taper PO DIRECTED 21 Days #49 tab Zonisamide [Zonegran] 100 mg PO DAILY 30 Days #30 cap Dulaglutide [Trulicity] 3 mg SQ Q7D Discontinued Potassium Chloride ER [K-Dur 20] 20 meq PO BID levETIRAcetam [Keppra] 500 mg PO BID@0700,2100 Metoprolol Tartrate [Lopressor] 25 mg PO BID Divalproex ER [Depakote ER] 250 mg PO BID 30 Days #60 tab levETIRAcetam [Keppra] 500 mg PO MoWeFr@1600 30 Days #15 tab Divalproex [Depakote] 500 mg PO Q8H Discharge Medication List Clopidogrel [Plavix] 75 mg PO DAILY #30 tab 09/05/20 [Rx] Atorvastatin [Lipitor] 40 mg PO HS 03/23/21 [History] Dulaglutide [Trulicity] 3 mg SQ Q7D 03/23/21 [History] Sevelamer [Renvela] 800 mg PO BID-W/MEALS 03/23/21 [History] Vascepa 1gm 1 gm PO BID 03/23/21 [History] Calcium Acetate 667 mg PO TID-W/MEALS 02/25/22 [History] Pantoprazole [Protonix] 40 mg PO DAILY 02/25/22 [History] Sevelamer [Renvela] 1,600 mg PO W/SUPPER 04/29/22 [History] Lacosamide [Vimpat] See Taper PO DIRECTED 21 Days #49 tab 07/06/22 [Rx] Zonisamide [Zonegran] 100 mg PO DAILY 30 Days #30 cap 07/06/22 [Rx] Darbepoetin Maurizio [Aranesp] 40 mcg SQ Q7D each 07/27/22 [Rx] Divalproex Sprinkle [Depakote Sprinkle] 500 mg PO TID cap 07/27/22 [Rx] Heparin Sodium,Porcine [Heparin Sodium] 5,000 unit SQ Q12HR 30 Days #60 each 07/27/22 [Rx] Lacosamide [Vimpat] 100 mg PO BID #6 tab 07/27/22 [Rx] Metoprolol Tartrate [Lopressor] 25 mg PO BID tab 07/27/22 [Rx] amLODIPine [Norvasc] 5 mg PO BID tab 07/27/22 [Rx] levETIRAcetam [Keppra] 500 mg PO MOWEFR@1800 tab 07/27/22 [Rx] levETIRAcetam [Keppra] 500 mg PO Q12HR tab 07/27/22 [Rx] Follow up Appointment(s)/Referral(s): Gabriel Taylor MD [STAFF PHYSICIAN] - 1 Week Urszula Ludwig MD [STAFF PHYSICIAN] - 1 Week Activity/Diet/Wound Care/Special Instructions: Patient is going to [employer] activity as tolerated Continue to follow up with neurology outpatient Follow-up nephrology outpatient continue hemodialysis Monday/Monday/Monday Recommend repeat CBC, BMP, mag in 2-3 days Recommend continue with dysphagia 3 chopped diet and ground meats with aspiration precautions of 30-45 head of the bed elevated at all times along with one-to-one supervision with meals and no straws and continue nectar thickened liquids Discharge Disposition: TRANSFER TO SNF/ECF
--- NOTE | 2022-07-27 14:39 | P.PN ---
Subjective Progress Note Date: 07/27/22 Patient is seen at bedside and no further seizures. Feels is doing better. Objective - Vital Signs Vital signs: Vital Signs Temp 97.8 F 07/27/22 13:54 Pulse 72 07/27/22 13:54 Resp 19 07/27/22 13:54 BP 121/68 07/27/22 13:54 Pulse Ox 97 07/27/22 07:32 FiO2 35 07/17/22 18:05 Intake & Output 07/26/22 07/27/22 07/27/22 18:59 06:59 18:59 Intake Total 300 Output Total 2300 Balance -2000 Weight 70.5 kg Intake: Hemodialysis 300 Output: Hemodialysis 2300 Other: Voiding Method Diaper Incontinent # Voids 1 # Bowel Movements 1 2 ABP, PAP, CO, CI - Last Documented Arterial Blood Pressure 115/89 - Exam GENERAL: The patient is lying in bed and is not in acute distress. Is getting dialysis today. NEUROLOGICAL: Higher mental function: The patient is mildly drowsy but is awakeable to voice. Is oriented to self, time. She stated she is in the hospital with options. She is moderately slow responding to questions. No aphasia or neglect. Cranial nerves: The pupils are round, equal and reactive to light. \Extraocular movement is intact no nystagmus is noted. The facial strength is normal throughout. Tongue is midline and moved [id number] without any difficulty. No dysarthria is noted and has low pitched voice. Motor: The strength is 5 over 5 throughout right side. The left side has weakness, more over the left lower than upper (able to raise upper over gravity but has 1/5 over the lower). Has somewhat increase tone over the left. Sensation: Sensation is slightly decreased over the left side to touch throughout. - Labs CBC & Chem 7: 07/26/22 07:56 07/26/22 07:56 Labs: Abnormal Lab Results - Last 24 Hours (Table) 07/26/22 07/26/22 07/27/22 Range/Units 16:22 21:01 06:08 POC Glucose (mg/dL) 144 H 177 H 114 H (70-110) mg/dL Assessment and Plan Assessment: This is a 52-year-old woman with medically refractory epilepsy, VNS who presents to the hospital numerous times for breakthrough seizures. Clinical status epilepticus---resolved. Her epilepsy is not controlled. Patient is compliant with her medications. 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 History of multiple strokes. CT head revealed chronic hypodensity of left basal ganglia and bilateral cerebellum. No obvious stroke noted in the brainstem. Dysphagia. Patient initially failed swallow studies, then cleared swallow and now again failed swallow. No evidence of CVA on CT head. Patient cannot have MRI because of VNS. Probable acute UTI History of stroke with residual left hemiparesis. Patient states she has history of 5 strokes in the past. Diabetes mellitus End-stage renal is on dialysis Hypertension Plan: * Cannot have MRI of the brain because of VNS. Patient's VNS is not compatible with MRI machine in [facility]. Repeat CT head was done. Revealed no acute ischemic process. No evidence of stroke in the brainstem. * Zonegran was increased during this hospital because of her recurrent seizure on presentation from 100mg daily to 100mg bid. Resume zonisamide after PEG placement, currently on hold. * Repeat Depakote level 92. Patient has slow mentation. We will decrease Depakote to 500 mg 3 times a day. Her Depakote level was highly elevated 127 on arrival. * Continue Keppra 500 mg every 12 hours, and 500 mg extra dose every post dialysis. * Vimpat 100 mg twice a day[address] Dr. Luevano has decreased her Vimpat from 150mg bid to 100mg bid since on last admission it was felt she had primary generalized epilepsy and Vimpat was not great drug for primary generalized epilepsy. * Zonisamide level 10 mcg per mL (10-40), Depakote 73.8, Keppra 7.9 (3-60). Repeat Depakote level 92. Depakote decreased to 500 mg 3 times a day. * I highly recommend patient to follow-up with epileptilologist since has frequent seizures/medical refractory epilepsy. Consider Epidiolex for control of seizures. * Patient has 2.5 hour EEG in our facility on 07/06/2022 (prior admission) and preliminary was reported as runs of sharp and slow waves or spike and slow wave at 2-3 Hz lasting 1 -1.5 seconds suggestive of primary generalized epilepsy. No official report yet. * Left ICA stenosis 75% on CTA but on carotid duplex no significant stenosis seen. Vascular surgery input appreciated. No indication for surgery. * Patient is on home dose Plavix 75mg daily and Lipitor 40mg qhs which is sufficient for secondary stroke prophylaxis. * PT and OT are consulted. * Will defer the rest of medical management to primary team. * For DVT prophylaxis: on subq heparin. Otherwise no additional work-up. Will continue to follow if continues to be in the hospital. The plan is discussed with her nurse. Time with Patient: Less than 30
[2022-07-27 15:00] VITALS: BP 124/77; PULSE 77; RESP 15; TEMP 97.3
--- NOTE | 2022-07-27 15:03 | P.EN ---
Patient is a seizure problem and is unable to support herself upright in a wheelchair and will require ambulance transfer to and from dialysis on Monday and Monday
[2022-07-27] MEDS ORDERED: levETIRAcetam 500 MG TAB PO SCH (18:00)
== END 2022-07-27 18:46 | DRG 100 ==
LOC: EC 11:20 → 3SCARD 13:24 → 2SICU 20:36 → 4SSUR 07-20 18:45
PROVIDERS: ADMIT Internal Medicine; ATTEND Internal Medicine
PROC: 5A1945Z Respiratory Ventilation, 24-96 Consecutive Hours (ICD-10-PCS; principal; 2022-07-15)
PROC: 0BH17EZ Insertion of Endotracheal Airway into Trachea, Via Natural or Artificial Opening (ICD-10-PCS; 2022-07-15)
PROC: 5A1D70Z Performance of Urinary Filtration, Intermittent, Less than 6 Hours Per Day (ICD-10-PCS; 2022-07-16)
DX: G40.411 Other generalized epilepsy and epileptic syndromes, intractable, with status epilepticus (principal); J96.01 Acute respiratory failure with hypoxia; N18.6 End stage renal disease; G93.49 Other encephalopathy; I13.2 Hypertensive heart and chronic kidney disease with heart failure and with stage 5 chronic kidney disease, or end stage renal disease; E44.0 Moderate protein-calorie malnutrition; I69.354 Hemiplegia and hemiparesis following cerebral infarction affecting left non-dominant side; N39.0 Urinary tract infection, site not specified; E83.9 Disorder of mineral metabolism, unspecified; D63.1 Anemia in chronic kidney disease; J44.9 Chronic obstructive pulmonary disease, unspecified; E11.22 Type 2 diabetes mellitus with diabetic chronic kidney disease; E11.42 Type 2 diabetes mellitus with diabetic polyneuropathy; I50.9 Heart failure, unspecified; F31.9 Bipolar disorder, unspecified; Z99.2 Dependence on renal dialysis; Z20.822 Contact with and (suspected) exposure to COVID-19; G47.33 Obstructive sleep apnea (adult) (pediatric); I65.22 Occlusion and stenosis of left carotid artery; E78.5 Hyperlipidemia, unspecified; E03.9 Hypothyroidism, unspecified; K21.9 Gastro-esophageal reflux disease without esophagitis; M21.372 Foot drop, left foot; R13.10 Dysphagia, unspecified; R47.1 Dysarthria and anarthria; I83.90 Asymptomatic varicose veins of unspecified lower extremity; M19.90 Unspecified osteoarthritis, unspecified site; Z71.6 Tobacco abuse counseling; Z79.02 Long term (current) use of antithrombotics/antiplatelets; Z79.85 Long-term (current) use of injectable non-insulin antidiabetic drugs; Z79.899 Other long term (current) drug therapy; Z87.891 Personal history of nicotine dependence; Z96.82 Presence of neurostimulator; Z88.0 Allergy status to penicillin
CPT/HCPCS: 36415; 70450; 70496; 70498; 71045; 71046; 74019; 74230; 80048; 80053; 80164; 80165; 80177; 80203; 81001; 82140; 82728; 82805; 83519; 83540; 83550; 83605; 83735; 83880; 84100; 84443; 84484; 85025; 85027; 85610; 85730; 87040; 87070; 87086; 87205; 87635; 90935; 93005; 93880; 94002; 94003; 94660; 94760; 95822; 96374; 96375; 99285; 99291

== ENCOUNTER 2022-07-29 10:47 | Inpatient (IN) | payer MEDICARE, OTHER ==
[2022-07-29] MEDS ORDERED: SODIUM CHLORIDE 0.9% 500 ML 500 ML IV ONE (11:21)
--- NOTE | 2022-07-29 11:29 | ED ---
General Adult HPI - General Chief complaint: Altered Mental Status Stated complaint: AMS Time Seen by Provider: 07/29/22 10:50 Source: patient, EMS, RN notes reviewed, old records reviewed Mode of arrival: EMS Limitations: altered mental status - History of Present Illness Initial comments: This a 52-year-old female presents emergency Department from the longterm. Patient comes in because she has been slowly becoming more lethargic since last night according to staff. Staff stated when she arrived yesterday from the hospital she was COVID negative however this morning she tested COVID positive. Patient also is thought to have possibly aspirated because they switched her from. Food to solid foods and every time she ate solid food she was coughing. Patient has had no fevers that were reported there's been no difficulty breathing has been reported patient herself is able to follow simple commands but not able to contribute to her history. Patient has a past history of seizures stroke and diabetes as well as kidney failure. Patient has left-sided residual weakness - Related Data Home Medications Medication Instructions Recorded Confirmed Atorvastatin [Lipitor] 40 mg PO DAILY 03/23/21 07/29/22 Dulaglutide [Trulicity] 3 mg SQ Q7D 03/23/21 07/29/22 Sevelamer [Renvela] 800 mg PO BID-W/MEALS 03/23/21 07/29/22 Vascepa 1gm 1 gm PO BID 03/23/21 07/29/22 Calcium Acetate 667 mg PO TID-W/MEALS 02/25/22 07/29/22 Pantoprazole [Protonix] 40 mg PO DAILY 02/25/22 07/29/22 Sevelamer [Renvela] 1,600 mg PO W/SUPPER 04/29/22 07/29/22 bisacodyL 10 mg RECTAL DAILY PRN 07/29/22 07/29/22 Previous Rx's Medication Instructions Recorded Clopidogrel [Plavix] 75 mg PO DAILY #30 tab 09/05/20 Zonisamide [Zonegran] 100 mg PO DAILY 30 Days #30 cap 07/06/22 Darbepoetin Maurizio [Aranesp] 40 mcg SQ Q7D each 07/27/22 Divalproex Sprinkle [Depakote 500 mg PO TID cap 07/27/22 Sprinkle] Heparin Sodium,Porcine [Heparin 5,000 unit SQ Q12HR 30 Days #60 01/04/23 Sodium] each Lacosamide [Vimpat] 100 mg PO BID #6 tab 07/27/22 Metoprolol Tartrate [Lopressor] 25 mg PO BID tab 07/27/22 amLODIPine [Norvasc] 5 mg PO BID tab 07/27/22 levETIRAcetam [Keppra] 500 mg PO MOWEFR@1800 tab 07/27/22 levETIRAcetam [Keppra] 500 mg PO Q12HR tab 07/27/22 Allergies Allergy/AdvReac Type Severity Reaction Status Date / Time Penicillins Allergy Itching Verified 07/29/22 14:14 Review of Systems ROS Statement: Those systems with pertinent positive or pertinent negative responses have been documented in the HPI. ROS Other: All systems not noted in ROS Statement are negative. Past Medical History Past Medical History: Chest Pain / Angina, CVA/TIA, Diabetes Mellitus, GERD/Reflux, Hyperlipidemia, Hypertension, Memory Impairment, Osteoarthritis (OA), Renal Disease, Seizure Disorder, Thyroid Disorder Additional Past Medical History / Comment(s): Last seizure approximately one month ago. Spouse states she used to have seizures 4X per week until she had vagal nerve stimulator placed, now has seizures approximately once a week to once a month. Dialysis MOWEFR. Neuropathy, left drop foot, only able to walk short distances, otherwise uses wheelchair. 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 Never diagnosed with Sleep Apnea but spouse states she does stop breathing through the night and he has to shake her to start breathing again. Varicose veins. History of Any Multi-Drug Resistant Organisms: None Reported Past Surgical History: Section, Tonsillectomy, Uterine Ablation Additional Past Surgical History / Comment(s): Left arm fistula, loop recorder, vagus nerve stimulator. Past Anesthesia/Blood Transfusion Reactions: Motion Sickness Additional Past Anesthesia/Blood Transfusion Reaction / Comment(s): Family hx unknown, pt adopted. Past Psychological History: Bipolar Smoking Status: Former smoker Past Alcohol Use History: None Reported Past Drug Use History: None Reported - Past Family History Father Family Medical History: Unable to Obtain Additional Family Medical History / Comment(s): Pt adopted. General Exam - General Exam Comments Initial Comments: GENERAL: Patient is well-developed and well-nourished. Patient is nontoxic and well- hydrated and is in no acute distress. ENT: Neck is soft and supple. No significant lymphadenopathy is noted. Oropharynx i s clear. Moist mucous membranes. Neck has full range of motion without eliciting any pain. EYES: The sclera were anicteric and conjunctiva were pink and moist. Extraocular movements were intact and pupils were equal round and reactive to light. Eyelids were unremarkable. PULMONARY: Unlabored respirations. Good breath sounds bilaterally. No audible rales rhonchi or wheezing was noted. CARDIOVASCULAR: There is a regular rate and rhythm without any murmurs gallops or rubs. ABDOMEN: Soft and nontender with normal bowel sounds. SKIN: Skin is clear with no lesions or rashes and otherwise unremarkable. NEUROLOGIC: Patient is alert and oriented 2. Cranial nerves II through XII are grossly intact. Patient's share holder on the left is weaker than the right but paperwork states this is normal. Patient's speech is very shallow quiet MUSCULOSKELETAL: Normal extremities with adequate strength and full range of motion. LYMPHATICS: No significant lymphadenopathy is noted PSYCHIATRIC: Unable to evaluate Limitations: altered mental status Course Vital Signs 07/29/22 07/29/22 10:48 12:22 Temperature 98.5 F Pulse Rate 74 75 Respiratory 18 18 Rate Blood Pressure 124/68 126/91 O2 Sat by Pulse 96 100 Oximetry Medical Decision Making - Medical Decision Making EKG shows sinus rhythm at 73 bpm KS interval 190 QRS is 106 QT interval 42 QTC is 428 per patient's EKG shows no ST segment elevation or depression. Was pt. sent in by a medical professional or institution (, PA, PERSONAL CARE AIDE, urgent care, hospital, or longterm...) When possible be specific @ -Patient came from a longterm Did you speak to anyone other than the patient for history (EMS, parent, family, police, friend...)? What history was obtained from this source @ -EMS gave us most of the history Did you review nursing and triage notes (agree or disagree)? Why? @ -I reviewed and agree with nursing and triage notes Were old charts reviewed (outside hosp., previous admission, EMS record, old EKG, old radiological studies, urgent care reports/EKG's, longterm records)? Report findings @ -No old charts were reviewed Differential Diagnosis (chest pain, altered mental status, abdominal pain women, abdominal pain men, vaginal bleeding, weakness, fever, dyspnea, syncope, headache, dizziness, GI bleed, back pain, seizure, CVA, palpatations, mental health)? @ -Differential Altered Mental Status: Hypoglycemia, DKA, hypercapnia, ETOH, overdose, CO poisoning, trauma, myxedema coma, HTN encephalopathy, infection, encephalitis, psychosis, intercranial hemorrhage, hepatic encephalopathy, meningitis, CVA, this is not meant to be an all-inclusive list EKG interpreted by me (3pts min.). @ -As above X-rays interpreted by me (1pt min.). @ -Chest x-rays interpreted by myself and showed no acute abnormality. CT interpreted by me (1pt min.). @ -None done U/S interpreted by me (1pt. min.). @ -None done What testing was considered but not performed or refused? (CT, X-rays, U/S, labs)? Why? @ -None What meds were considered but not given or refused? Why? @ -None Did you discuss the management of the patient with other professionals (professionals i.e. , PA, PERSONAL CARE AIDE, lab, RT, psych nurse, social work program coordinator, form raiser, teacher, security flex officer, director of casework)? Give summary @ -No Was smoking cessation discussed for >3mins.? @ -No Was critical care preformed (if so, how long)? @ -No Were there social determinants of health that impacted care today? How? (Homelessness, low income, unemployed, alcoholism, drug addiction, transportation, low edu. Level, literacy, decrease access to med. care, long term, rehab)? @ -No Was there de-escalation of care discussed even if they declined (Discuss DNR or withdrawal of care, Hospice)? DNR status @ -No What co-morbidities impacted this encounter? (DM, HTN, Smoking, COPD, CAD, Cancer, CVA, ARF, Chemo, Hep., AIDS, mental health diagnosis, sleep apnea, morbid obesity)? @ -And has acute renal failure however she supposed be dialyzed today she did not go instead the longterm sent to the emergency department. Was patient admitted / discharged? Hospital course, mention meds given and route, prescriptions, significant lab abnormalities, going to OR and other perti nent info. @ -Patient will be admitted because of altered mental status she also needs dialysis since she missed her dialysis today because she was sent here. We were told patient had COVID however when they called the longterm they said that she did not know the report we received was that she did so we repeated the test and the patient did not have COVID Undiagnosed new problem with uncertain prognosis? @ -No Drug Therapy requiring intensive monitoring for toxicity (Heparin, Nitro, Insulin, Cardizem)? @ -No Were any procedures done? @ -No Diagnosis/symptom? @ -Altered mental status Acute, or Chronic, or Acute on Chronic? @ -default Uncomplicated (without systemic symptoms) or Complicated (systemic symptoms)? @ -default Side effects of treatment? @ -No Exacerbation, Progression, or Severe Exacerbation? @ -No Poses a threat to life or bodily function? How? (Chest pain, [place], [place], pneumonia, PE, COPD, DKA, ARF, appy, cholecystitis, CVA, Diverticulitis, Homicidal, Suicidal, threat to staff... and all critical care pts) @ -No Diagnosis/symptom? @ -Chronic renal failure and need for dialysis Acute, or Chronic, or Acute on Chronic? @ -Acute on chronic Uncomplicated (without systemic symptoms) or Complicated (systemic symptoms)? @ -Uncomplicated Side effects of treatment? @ -none Exacerbation, Progression, or Severe Exacerbation] @ -no Poses a threat to life or bodily function? @ -no - Lab Data Result diagrams: 07/29/22 11:25 07/29/22 11:25 Lab Results 07/29/22 07/29/22 07/29/22 Range/Units 11:25 11:25 11:25 WBC 6.4 (3.8-10.6) k/uL RBC 4.15 (3.80-5.40) m/uL Hgb 12.3 (11.4-16.0) gm/dL Hct 36.3 (34.0-46.0) % MCV 87.3 (80.0-100.0) fL MCH 29.5 (25.0-35.0) pg MCHC 33.8 (31.0-37.0) g/dL RDW 14.1 (11.5-15.5) % Plt Count 179 (150-450) k/uL MPV 8.6 Neutrophils % 61 % Lymphocytes % 31 % Monocytes % 5 % Eosinophils % 1 % Basophils % 1 % Neutrophils # 3.9 (1.3-7.7) k/uL Lymphocytes # 2.0 (1.0-4.8) k/uL Monocytes # 0.4 (0-1.0) k/uL Eosinophils # 0.1 (0-0.7) k/uL Basophils # 0.0 (0-0.2) k/uL PT 11.0 (9.0-12.0) sec INR 1.1 (<1.2) APTT 26.5 (22.0-30.0) sec Sodium 136 L (137-145) mmol/L Potassium 4.5 (3.5-5.1) mmol/L Chloride 100 (98-107) mmol/L Carbon Dioxide 24 (22-30) mmol/L Anion Gap 12 mmol/L BUN 35 H (7-17) mg/dL Creatinine 9.62 H* (0.52-1.04) mg/dL Est GFR (CKD-EPI)AfAm 5 (>60 ml/min/1.73 sqM) Est GFR (CKD-EPI)NonAf 4 (>60 ml/min/1.73 sqM) Glucose 106 H (74-99) mg/dL POC Glucose (mg/dL) (70-110) mg/dL POC Glu Clinical Practice Consultant ID Calcium 10.1 (8.4-10.2) mg/dL Total Bilirubin 0.3 (0.2-1.3) mg/dL AST 14 (14-36) U/L ALT 9 (4-34) U/L Alkaline Phosphatase 56 (38-126) U/L Troponin I (0.000-0.034) ng/mL Total Protein 6.1 L (6.3-8.2) g/dL Albumin 3.3 L (3.5-5.0) g/dL Urine Opiates Screen (NotDetected) Ur Oxycodone Screen (NotDetected) Urine Methadone Screen (NotDetected) Ur Propoxyphene Screen (NotDetected) Ur Barbiturates Screen (NotDetected) U Tricyclic Antidepress (NotDetected) Ur Phencyclidine Scrn (NotDetected) Ur Amphetamines Screen (NotDetected) U Methamphetamines Scrn (NotDetected) U Benzodiazepines Scrn (NotDetected) Urine Cocaine Screen (NotDetected) U Marijuana (THC) Screen (NotDetected) Influenza Type A (PCR) (Not Detectd) Influenza Type B (PCR) (Not Detectd) RSV (PCR) (Not Detectd) SARS-CoV-2 (PCR) (Not Detectd) 07/29/22 07/29/22 07/29/22 Range/Units 11:25 11:51 12:15 WBC (3.8-10.6) k/uL RBC (3.80-5.40) m/uL Hgb (11.4-16.0) gm/dL Hct (34.0-46.0) % MCV (80.0-100.0) fL MCH (25.0-35.0) pg MCHC (31.0-37.0) g/dL RDW (11.5-15.5) % Plt Count (150-450) k/uL MPV Neutrophils % % Lymphocytes % % Monocytes % % Eosinophils % % Basophils % % Neutrophils # (1.3-7.7) k/uL Lymphocytes # (1.0-4.8) k/uL Monocytes # (0-1.0) k/uL Eosinophils # (0-0.7) k/uL Basophils # (0-0.2) k/uL PT (9.0-12.0) sec INR (<1.2) APTT (22.0-30.0) sec Sodium (137-145) mmol/L Potassium (3.5-5.1) mmol/L Chloride (98-107) mmol/L Carbon Dioxide (22-30) mmol/L Anion Gap mmol/L BUN (7-17) mg/dL Creatinine (0.52-1.04) mg/dL Est GFR (CKD-EPI)AfAm (>60 ml/min/1.73 sqM) Est GFR (CKD-EPI)NonAf (>60 ml/min/1.73 sqM) Glucose (74-99) mg/dL POC Glucose (mg/dL) (70-110) mg/dL POC Glu Clinical Practice Consultant ID Calcium (8.4-10.2) mg/dL Total Bilirubin (0.2-1.3) mg/dL AST (14-36) U/L ALT (4-34) U/L Alkaline Phosphatase (38-126) U/L Troponin I <0.012 (0.000-0.034) ng/mL Total Protein (6.3-8.2) g/dL Albumin (3.5-5.0) g/dL Urine Opiates Screen Not Detected (NotDetected) Ur Oxycodone Screen Not Detected (NotDetected) Urine Methadone Screen Not Detected (NotDetected) Ur Propoxyphene Screen Not Detected (NotDetected) Ur Barbiturates Screen Not Detected (NotDetected) U Tricyclic Antidepress Not Detected (NotDetected) Ur Phencyclidine Scrn Not Detected (NotDetected) Ur Amphetamines Screen Not Detected (NotDetected) U Methamphetamines Scrn Not Detected (NotDetected) U Benzodiazepines Scrn Not Detected (NotDetected) Urine Cocaine Screen Not Detected (NotDetected) U Marijuana (THC) Screen Not Detected (NotDetected) Influenza Type A (PCR) Not Detected (Not Detectd) Influenza Type B (PCR) Not Detected (Not Detectd) RSV (PCR) Not Detected (Not Detectd) SARS-CoV-2 (PCR) Not Detected (Not Detectd) 07/29/22 Range/Units 12:39 WBC (3.8-10.6) k/uL RBC (3.80-5.40) m/uL Hgb (11.4-16.0) gm/dL Hct (34.0-46.0) % MCV (80.0-100.0) fL MCH (25.0-35.0) pg MCHC (31.0-37.0) g/dL RDW (11.5-15.5) % Plt Count (150-450) k/uL MPV Neutrophils % % Lymphocytes % % Monocytes % % Eosinophils % % Basophils % % Neutrophils # (1.3-7.7) k/uL Lymphocytes # (1.0-4.8) k/uL Monocytes # (0-1.0) k/uL Eosinophils # (0-0.7) k/uL Basophils # (0-0.2) k/uL PT (9.0-12.0) sec INR (<1.2) APTT (22.0-30.0) sec Sodium (137-145) mmol/L Potassium (3.5-5.1) mmol/L Chloride (98-107) mmol/L Carbon Dioxide (22-30) mmol/L Anion Gap mmol/L BUN (7-17) mg/dL Creatinine (0.52-1.04) mg/dL Est GFR (CKD-EPI)AfAm (>60 ml/min/1.73 sqM) Est GFR (CKD-EPI)NonAf (>60 ml/min/1.73 sqM) Glucose (74-99) mg/dL POC Glucose (mg/dL) 92 (70-110) mg/dL POC Glu Clinical Practice Consultant ID Nicholas Bingham Calcium (8.4-10.2) mg/dL Total Bilirubin (0.2-1.3) mg/dL AST (14-36) U/L ALT (4-34) U/L Alkaline Phosphatase (38-126) U/L Troponin I (0.000-0.034) ng/mL Total Protein (6.3-8.2) g/dL Albumin (3.5-5.0) g/dL Urine Opiates Screen (NotDetected) Ur Oxycodone Screen (NotDetected) Urine Methadone Screen (NotDetected) Ur Propoxyphene Screen (NotDetected) Ur Barbiturates Screen (NotDetected) U Tricyclic Antidepress (NotDetected) Ur Phencyclidine Scrn (NotDetected) Ur Amphetamines Screen (NotDetected) U Methamphetamines Scrn (NotDetected) U Benzodiazepines Scrn (NotDetected) Urine Cocaine Screen (NotDetected) U Marijuana (THC) Screen (NotDetected) Influenza Type A (PCR) (Not Detectd) Influenza Type B (PCR) (Not Detectd) RSV (PCR) (Not Detectd) SARS-CoV-2 (PCR) (Not Detectd) Disposition Clinical Impression: Altered mental status, Missed dialysis Disposition: ADMITTED IP TO THIS HOSP Referrals: None,Stated [REFERRING] - 1-2 days Time of Disposition: 14:48
[2022-07-29 11:49] LABS: Basophils % (A) 1 %; Eosinophils # (A) 0.1 k/uL (0-0.7); Eosinophils % (A) 1 %; HCT 36.3 % (34.0-46.0); HGB 12.3 gm/dL (11.4-16.0); Lymphocytes % (A) 31 %; MCH 29.5 pg (25.0-35.0); MCHC 33.8 g/dL (31.0-37.0); MCV 87.3 fL (80.0-100.0); Mean Platelet Volume 8.6; Monocytes # (A) 0.4 k/uL (0-1.0); Monocytes % (A) 5 %; Neutrophils # (A) 3.9 k/uL (1.3-7.7); Neutrophils % (A) 61 %; Platelet Count 179 k/uL (150-450); RBC 4.15 m/uL (3.80-5.40); RDW 14.1 % (11.5-15.5); WBC 6.4 k/uL (3.8-10.6)
--- NOTE | 2022-07-29 11:55 | XR ---
EXAMINATION TYPE: XR chest 2V DATE OF EXAM: 07/29/2022 11:43 AM COMPARISON: Chest radiographs from 07/26/2022 TECHNIQUE: XR chest 2V Frontal and lateral views of the chest. CLINICAL INDICATION:Female, 52 years old with history of altered mental status; FINDINGS: Lungs/Pleura: There is no evidence of pleural effusion or pneumothorax. Right perihilar patchy opacit ies. Pulmonary vascularity: Unremarkable. Heart/mediastinum: Cardiomediastinal silhouette is unremarkable. Musculoskeletal: No acute osseous pathology. Other findings: Loop recorder overlies the left chest wall. Battery pack overlies left chest with moises d terminating in the neck. IMPRESSION: Right perihilar patchy opacities which may represent infiltrate versus atelectasis.
[2022-07-29 12:11] LABS: INR 1.1 (<1.2)
[2022-07-29 12:12] LABS: Partial Thromboplastin Time 26.5 sec (22.0-30.0)
[2022-07-29 12:13] LABS: Albumin 3.3 g/dL (3.5-5.0); Calcium 10.1 mg/dL (8.4-10.2); Potassium 4.5 mmol/L (3.5-5.1); Total Bilirubin 0.3 mg/dL (0.2-1.3); Total Protein 6.1 g/dL (6.3-8.2)
[2022-07-29 12:41] LABS: Glucose,Whole Blood 92 mg/dL (70-110)
[2022-07-29 12:53] LABS: Amphetamine Screen,Urine Not Detected (NotDetected); Barbiturate Screen,Urine Not Detected (NotDetected); Benzodiazepines Screen,Urine Not Detected (NotDetected); Cocaine Screen,Urine Not Detected (NotDetected); Methadone Screen, Urine Not Detected (NotDetected); Opiate Screen,Urine Not Detected (NotDetected); Oxycodone Screen, Urine Not Detected (NotDetected); Phencyclidine Screen,Urine Not Detected (NotDetected); Tricyclic Antidepressant,Urine Not Detected (NotDetected); Urn Cannabinoid Scrn Not Detected (NotDetected)
[2022-07-29] MEDS ORDERED: bisacodyL 10 MG SUPP RECTAL PRN (14:35)
[2022-07-29] MEDS ORDERED: DARBEPOETIN ALFA 40 MCG/0.4 ML SYRINGE SQ SCH (14:45)
[2022-07-29] MEDS ORDERED: DIVALPROEX SPRINKLE 125 MG CAP.SPRINK PO SCH (16:00)
[2022-07-29] MEDS ORDERED: SEVELAMER 800 MG TAB PO SCH (17:30)
[2022-07-29] MEDS ORDERED: levETIRAcetam IV 500 MG in SODIUM CHLORIDE 0.9% 100 ML IVPB SCH (18:00)
[2022-07-29] MEDS ORDERED: levETIRAcetam 500 MG TAB PO SCH ×2 (18:00→21:00)
[2022-07-29] MEDS: ZONISAMIDE 100 MG CAP PO SCH (18:05)
[2022-07-29] MEDS: SEVELAMER 800 MG TAB PO SCH (18:05)
[2022-07-29] MEDS: CALCIUM ACETATE 667 MG TAB PO SCH (18:05)
[2022-07-29] MEDS: VALPROATE SODIUM 500 MG in SODIUM CHLORIDE 0.9% 100 ML IVPB SCH (20:52)
[2022-07-29] MEDS ORDERED: LACOSAMIDE 50 MG TABLET PO SCH (21:00)
[2022-07-29] MEDS ORDERED: LACOSAMIDE IV 100 MG in SODIUM CHLORIDE 0.9% 50 ML IVPB SCH (21:00)
[2022-07-29] MEDS ORDERED: HEPARIN SODIUM,PORCINE 5,000 UNIT/ML 1 ML VIAL SQ SCH (21:00)
[2022-07-29] MEDS: METOPROLOL TARTRATE 25 MG TAB PO SCH (21:06)
[2022-07-29] MEDS: amLODIPine 5 MG TAB PO SCH (21:06)
[2022-07-29] MEDS: HEPARIN SODIUM,PORCINE/PF 5,000 UNIT/0.5 ML SYRINGE SQ SCH (21:07)
[2022-07-29] MEDS: levETIRAcetam IV 500 MG in SODIUM CHLORIDE 0.9% 100 ML IVPB SCH (22:00)
--- NOTE | 2022-07-29 23:45 | P.HPIM ---
History of Present Illness H&P Date: 07/29/22 Chief Complaint: Lethargy Patient is a 52-year-old female with a known history of ESRD on hemodialysis, seizure disorder with status epilepticus during recent admission and [facility], hypothyroidism, hypertension, hyperlipidemia, diabetes type 2, history of CVA/TIA and history of left foot drop, bipolar disorder and prior history of smoking was sent back from custodial. Patient was discharged on 07/27/2022. Patient was found to be progressively lethargic as noted by the custodial staff, patient was tested positive at the custodial this morning however COVID-19 PCR was negative currently. Possible aspiration was also suspected as per custodial staff. Patient had a swallow study recently and was able to tolerate dysphagia diet with aspiration precautions. Patient was afebrile on admission. Pulse ox 96% on room air. Chest x-ray showed right perihilar patchy opacities which may represent infiltrative versus atelectasis. EKG showed sinus rhythm Laboratory data showed WBC 6.4 hemoglobin 12.3, platelets 179 Sodium 136 potassium 4.5 chloride 100 bicarb is 24 BUN 35 and creatinine 9.62 and blood sugar is 106 UDS negative and influenza A, B, RSV and SARS-CoV-2 not detected. Review of Systems Constitutional: Patient denies any fever or chills . Patient does have generalized weakness. Abdomen: Patient denied any nausea or vomiting or abd. pain Cardiovascular: Patient denies any chest pain or short of breath no palpitations. Respiratory: patient denied any cough . no sputum production. No shortness of breath Neurologic: Patient denied any numbness or tingling headache. Complete review of systems could not be obtained from the patient except as per HPI and above Past Medical History Past Medical History: Chest Pain / Angina, CVA/TIA, Diabetes Mellitus, GERD/Reflux, Hyperlipidemia, Hypertension, Memory Impairment, Osteoarthritis (OA), Renal Disease, Seizure Disorder, Thyroid Disorder Additional Past Medical History / Comment(s): Last seizure approximately one month ago. Spouse states she used to have seizures 4X per week until she had vagal nerve stimulator placed, now has seizures approximately once a week to once a month. Dialysis MOWEFR. Neuropathy, left drop foot, only able to walk short distances, otherwise uses wheelchair. 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 Never diagnosed with Sleep Apnea but spouse states she does stop breathing through the night and he has to shake her to start breathing again. Varicose veins. History of Any Multi-Drug Resistant Organisms: None Reported Past Surgical History: Section, Tonsillectomy, Uterine Ablation Additional Past Surgical History / Comment(s): Left arm fistula, loop recorder, vagus nerve stimulator. Past Anesthesia/Blood Transfusion Reactions: Motion Sickness Additional Past Anesthesia/Blood Transfusion Reaction / Comment(s): Family hx unknown, pt adopted. Past Psychological History: Bipolar Smoking Status: Former smoker Past Alcohol Use History: None Reported Past Drug Use History: None Reported - Past Family History Father Family Medical History: Unable to Obtain Additional Family Medical History / Comment(s): Pt adopted. Medications and Allergies Home Medications Medication Instructions Recorded Confirmed Type Clopidogrel [Plavix] 75 mg PO DAILY #30 tab 09/05/20 07/29/22 Rx Atorvastatin [Lipitor] 40 mg PO DAILY 03/23/21 07/29/22 History Dulaglutide [Trulicity] 3 mg SQ Q7D 03/23/21 07/29/22 History Sevelamer [Renvela] 800 mg PO BID-W/MEALS 03/23/21 07/29/22 History Vascepa 1gm 1 gm PO BID 03/23/21 07/29/22 History Calcium Acetate 667 mg PO TID-W/MEALS 02/25/22 07/29/22 History Pantoprazole [Protonix] 40 mg PO DAILY 02/25/22 07/29/22 History Sevelamer [Renvela] 1,600 mg PO W/SUPPER 04/29/22 07/29/22 History Zonisamide [Zonegran] 100 mg PO DAILY 30 Days #30 cap 07/06/22 07/29/22 Rx Darbepoetin Maurizio [Aranesp] 40 mcg SQ Q7D each 07/27/22 07/29/22 Rx Divalproex Sprinkle [Depakote 500 mg PO TID cap 07/27/22 07/29/22 Rx Sprinkle] Heparin Sodium,Porcine [Heparin 5,000 unit SQ Q12HR 30 Days #60 07/27/22 07/29/22 Rx Sodium] each Lacosamide [Vimpat] 100 mg PO BID #6 tab 07/27/22 07/29/22 Rx Metoprolol Tartrate [Lopressor] 25 mg PO BID tab 07/27/22 07/29/22 Rx amLODIPine [Norvasc] 5 mg PO BID tab 07/27/22 07/29/22 Rx levETIRAcetam [Keppra] 500 mg PO MOWEFR@1800 tab 07/27/22 07/29/22 Rx levETIRAcetam [Keppra] 500 mg PO Q12HR tab 07/27/22 07/29/22 Rx bisacodyL 10 mg RECTAL DAILY PRN 07/29/22 07/29/22 History Allergies Allergy/AdvReac Type Severity Reaction Status Date / Time Penicillins Allergy Itching Verified 07/29/22 14:14 Physical Exam Vitals: Vital Signs Temp Pulse Resp BP Pulse Ox 07/29/22 21:03 74 16 152/79 97 07/29/22 14:47 75 18 126/91 99 07/29/22 12:22 75 18 126/91 100 07/29/22 10:48 98.5 F 74 18 124/68 96 Intake and Output 07/29/22 07/29/22 07/29/22 06:59 14:59 22:59 Other: Weight 72.575 kg PHYSICAL EXAMINATION: Patient is lying in the bed comfortably, no acute distress, awake alert and oriented.. Lethargic and weak and slow to respond. HEENT: Normocephalic. Neck is supple. Pupils reactive. Nostrils clear. Oral cavity is moist. Neck reveals no JVD, carotid bruits, or thyromegaly. CHEST EXAMINATION: Trachea is central. Symmetrical expansion. Bibasilar diminished sounds. No wheezing or rhonchi.. CARDIAC: Normal S1, S2 with no gallops. No murmurs ABDOMEN: Soft. Bowel sounds present. Nontender. No organomegaly. No abdominal bruits. Extremities: reveal no edema. No clubbing or cyanosis Neurologically awake, alert, oriented [id number] weakness. Lethargic and drowsy. Skin: No rash or skin lesions. Psychiatric: Coperative. Could not be assessed completely. Musculoskeletal: No joint swelling or deformity. Results CBC & Chem 7: 07/29/22 11:25 07/29/22 11:25 Labs: Abnormal Lab Results - Last 24 Hours (Table) 07/29/22 Range/Units 11:25 Sodium 136 L (137-145) mmol/L BUN 35 H (7-17) mg/dL Creatinine 9.62 H* (0.52-1.04) mg/dL Glucose 106 H (74-99) mg/dL Total Protein 6.1 L (6.3-8.2) g/dL Albumin 3.3 L (3.5-5.0) g/dL Thrombosis Risk Factor Assmnt - DVT/VTE Prophylaxis DVT/VTE Prophylaxis: Pharmacologic Prophylaxis ordered Assessment and Plan Assessment: RT. perihilar OPACITIES possible atelectasis versus pneumonia. COVID-19 PCR not detected. Missed Hemodialysis ESRD on hemodialysis Monday and Monday Recent admission with status epilepticus. We will continue with antiepileptic drugs as per recent admission. Dysphagia diet with aspiration precautions as per most recent swallow study. Left ICA 75% stenosis at the origin as per CTA neck. Hypodensity in the brainstem and left basal ganglia related to previous CVA History of CVA with left-sided weakness Diabetes type 2 Peripheral neuropathy Memory impairment GERD Hypertension Hyperlipidemia Hypothyroidism Bipolar disorder Prior history of smoking DVT prophylaxis with heparin subcu GI prophylaxis Plan: Patient will be continued on telemetry monitoring and will be started antiepilep tic medications as per recent neurology recommendations. Nephrology was consulted for hemodialysis. Continue with dysphagia diet with aspiration precautions Follow-up procalcitonin level and repeat chest x-ray. Continues home medications and follow-up closely. Prognosis is guarded with multiple medical problems and comorbid conditions. Time with Patient: Greater than 30
[2022-07-30] MEDS: VALPROATE SODIUM 500 MG in SODIUM CHLORIDE 0.9% 100 ML IVPB SCH ×3 (03:57→20:18)
--- NOTE | 2022-07-30 07:07 | XR ---
EXAMINATION TYPE: XR chest 1V DATE OF EXAM: 07/30/2022 CLINICAL HISTORY: Difficulty breathing progress study. TECHNIQUE: Single AP portable upright view of the chest is obtained. COMPARISON: Chest x-ray from one day earlier FINDINGS: No suspicious focal airspace opacity, pleural effusion, or pneumothorax seen bilaterally. Cardiac silhouette size is stable and upper limits of normal. Overlying loop order left heart border is redemonstrated. Left neck stimulator device again seen. Osseous structures are intact. IMPRESSION: No acute process currently.
[2022-07-30 07:29] LABS: Calcium 10.1 mg/dL (8.4-10.2); Potassium 4.9 mmol/L (3.5-5.1)
[2022-07-30] MEDS: HEPARIN SODIUM,PORCINE/PF 5,000 UNIT/0.5 ML SYRINGE SQ SCH ×2 (07:57→20:18)
[2022-07-30] MEDS: CLOPIDOGREL 75 MG TAB PO SCH (07:57)
[2022-07-30] MEDS: amLODIPine 5 MG TAB PO SCH ×2 (07:58→20:18)
[2022-07-30] MEDS: levETIRAcetam IV 500 MG in SODIUM CHLORIDE 0.9% 100 ML IVPB SCH (07:58)
[2022-07-30] MEDS: ATORVASTATIN 40 MG TAB PO SCH (07:58)
[2022-07-30] MEDS: CALCIUM ACETATE 667 MG TAB PO SCH ×3 (07:58→16:50)
[2022-07-30] MEDS: SEVELAMER 800 MG TAB PO SCH ×3 (07:59→16:50)
[2022-07-30] MEDS: ZONISAMIDE 100 MG CAP PO SCH (07:59)
[2022-07-30] MEDS: PANTOPRAZOLE 40 MG/10 ML VIAL IVP SCH (07:59)
[2022-07-30] MEDS: METOPROLOL TARTRATE 25 MG TAB PO SCH ×2 (08:06→20:18)
[2022-07-30] MEDS ORDERED: PANTOPRAZOLE 40 MG TABLET PO SCH (09:00)
--- NOTE | 2022-07-30 11:23 | P.NPCON ---
History of Present Illness - Reason for Consult end stage renal disease - History of Present Illness Reason for consultation: End-stage renal disease History of present illness: The patient is a 52-year-old female seen in renal consultation for end-stage renal disease. She is making on hemodialysis on Monday schedule. Patient presents from extended care facility due to worsening leth argy noted but the nursing staff. Patient tested positive for coronary at the [facility]. There was also concern for aspiration. It is noted in the chart at the patient was coughing when she was fed. Patient has history of seizures and is required multiple hospitalizations for it recently. In the hospital she tested negative for influenza, RSV and covert PCR. No fever. Her white count is not elevated. Chest x-ray from today showed no acute process. Currently resting in bed. Hemodynamically stable. She is on room air. Patient has history of CVA residual hemiparesis and dysarthria. Vital signs are stable. General: Awake. No acute distress. HEENT: Head exam is unremarkable. LUNGS: Breath sounds decreased. HEART: Rate and Rhythm are regular. ABDOMEN: Soft, no distention. EXTREMITITES: No edema. Past Medical History Past Medical History: Chest Pain / Angina, CVA/TIA, Diabetes Mellitus, GERD/Reflux, Hyperlipidemia, Hypertension, Memory Impairment, Osteoarthritis (OA), Renal Disease, Seizure Disorder, Thyroid Disorder Additional Past Medical History / Comment(s): Last seizure approximately one month ago. Spouse states she used to have seizures 4X per week until she had vagal nerve stimulator placed, now has seizures approximately once a week to once a month. Dialysis MOWEFR. Neuropathy, left drop foot, only able to walk short distances, otherwise uses wheelchair. 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 Never diagnosed with Sleep Apnea but spouse states she does stop breathing through the night and he has to shake her to start breathing again. Varicose veins. History of Any Multi-Drug Resistant Organisms: None Reported Past Surgical History: Section, Tonsillectomy, Uterine Ablation Additional Past Surgical History / Comment(s): Left arm fistula, loop recorder, vagus nerve stimulator. Past Anesthesia/Blood Transfusion Reactions: Motion Sickness Additional Past Anesthesia/Blood Transfusion Reaction / Comment(s): Family hx unknown, pt adopted. Past Psychological History: Bipolar Smoking Status: Former smoker Past Alcohol Use History: None Reported Past Drug Use History: None Reported - Past Family History Father Family Medical History: Unable to Obtain Additional Family Medical History / Comment(s): Pt adopted. Medications and Allergies Home Medications Medication Instructions Recorded Confirmed Type Clopidogrel [Plavix] 75 mg PO DAILY #30 tab 09/05/20 07/29/22 Rx Atorvastatin [Lipitor] 40 mg PO DAILY 03/23/21 07/29/22 History Dulaglutide [Trulicity] 3 mg SQ Q7D 03/23/21 07/29/22 History Sevelamer [Renvela] 800 mg PO BID-W/MEALS 03/23/21 07/29/22 History Vascepa 1gm 1 gm PO BID 03/23/21 07/29/22 History Calcium Acetate 667 mg PO TID-W/MEALS 02/25/22 07/29/22 History Pantoprazole [Protonix] 40 mg PO DAILY 02/25/22 07/29/22 History Sevelamer [Renvela] 1,600 mg PO W/SUPPER 04/29/22 07/29/22 History Zonisamide [Zonegran] 100 mg PO DAILY 30 Days #30 cap 07/06/22 07/29/22 Rx Darbepoetin Maurizio [Aranesp] 40 mcg SQ Q7D each 07/27/22 07/29/22 Rx Divalproex Sprinkle [Depakote 500 mg PO TID cap 07/27/22 07/29/22 Rx Sprinkle] Heparin Sodium,Porcine [Heparin 5,000 unit SQ Q12HR 30 Days #60 07/27/22 07/29/22 Rx Sodium] each Lacosamide [Vimpat] 100 mg PO BID #6 tab 07/27/22 07/29/22 Rx Metoprolol Tartrate [Lopressor] 25 mg PO BID tab 07/27/22 07/29/22 Rx amLODIPine [Norvasc] 5 mg PO BID tab 07/27/22 07/29/22 Rx levETIRAcetam [Keppra] 500 mg PO MOWEFR@1800 tab 07/27/22 07/29/22 Rx levETIRAcetam [Keppra] 500 mg PO Q12HR tab 07/27/22 07/29/22 Rx bisacodyL 10 mg RECTAL DAILY PRN 07/29/22 07/29/22 History Allergies Allergy/AdvReac Type Severity Reaction Status Date / Time Penicillins Allergy Itching Verified 07/29/22 14:14 Physical Exam Vitals: Vital Signs Temp Pulse Pulse Pulse Resp BP BP 07/30/22 07:35 97.6 F 76 16 148/81 07/30/22 02:14 97.4 F L 70 16 158/80 07/29/22 23:17 97.4 F L 77 18 160/82 07/29/22 22:54 98.6 F 74 16 152/79 07/29/22 21:03 74 16 152/79 07/29/22 14:47 75 18 126/91 07/29/22 12:22 75 18 126/91 Pulse Ox 07/30/22 07:35 99 07/30/22 02:14 98 07/29/22 23:17 100 07/29/22 22:54 07/29/22 21:03 97 07/29/22 14:47 99 07/29/22 12:22 100 Intake and Output 07/29/22 07/30/22 07/30/22 22:59 06:59 14:59 Other: Voiding Method Toilet # Bowel Movements 1 Weight 72.575 kg Results - Lab Results Most recent lab results Calcium 10.1 mg/dL (8.4-10.2) 07/30/22 07:04 07/29/22 11:25 07/30/22 07:04 Assessment and Plan Plan: Assessment: 1. End-stage renal disease maintained on hemodialysis on Monday schedule. 2. Hypertension with chronic kidney disease. 3. History of seizures. 4. Chronic kidney disease mineral bone disease maintained on PhosLo and Renvela. 5. Metabolic acidosis secondary to chronic kidney disease and missed dialysis treatment. Expect improvement post dialysis. Plan: Hemodialysis today as she missed yesterday's treatment. Check phosphorus level. Thank you for the consultation. I will continue to follow the patient with you during her hospital stay.
--- NOTE | 2022-07-30 13:37 | P.CNNES ---
History of Present Illness Consult date: 07/30/22 Requesting physician: Hodan Castillo Reason for Consult: history of seizure, medication management History of Present Illness: This is a 52-year-old woman with history of medical refractory epilepsy on VNS and appears she has primary generalized epilepsy, left ICA stenosis of 75% on CTA but discrepancy on the carotid duplex and not significant, history of stroke with residual left hemiparesis, diabetes mellitus, end-stage renal disease on dialysis, hypertension presented to the emergency department on 07/29/2022 from nursing facility because the patient was lethargic. She is known to our neurology service. She was just recently discharged from our facility on 07/27/2022 because of clinical status epilepticus and was stable with no seizures on prior admission for days. Sure if patient had a seizure or not the facility. But today her she is more awake and responding and could not tell me what transpired the yesterday at the facility. Patient was recently discharged on Zonegran 100 mg a tablet twice a day, Keppra 500 mg 1 tablet every 12 hours with additional 500 mg after dialysis, Vimpat 100 mg twice a day Depakote 500 mg 1 tablet 3 times a day. Again she was seen last by me on 07/27/2022. Please review my notes for further details. CBC with differential is unremarkable Sodium is 136, BUN is 35, glucose is 106 on presentation. AST and ALT within normal limits Urine drug seeing is not detected SARS Covid to PCR was not detected. RSV, influenza A/B is not detected Review of Systems Review of system: The 12 point system was reviewed and apparent positive and negative per HPI. Past Medical History Past Medical History: Chest Pain / Angina, CVA/TIA, Diabetes Mellitus, GERD/Reflux, Hyperlipidemia, Hypertension, Memory Impairment, Osteoarthritis (OA), Renal Disease, Seizure Disorder, Thyroid Disorder Additional Past Medical History / Comment(s): Last seizure approximately one month ago. Spouse states she used to have seizures 4X per week until she had vagal nerve stimulator placed, now has seizures approximately once a week to once a month. Dialysis MOWEFR. Neuropathy, left drop foot, only able to walk short distances, otherwise uses wheelchair. 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 Never diagnosed with Sleep Apnea but spouse states she does stop breathing through the night and he has to shake her to start breathing again. Varicose veins. History of Any Multi-Drug Resistant Organisms: None Reported Past Surgical History: Section, Tonsillectomy, Uterine Ablation Additional Past Surgical History / Comment(s): Left arm fistula, loop recorder, vagus nerve stimulator. Past Anesthesia/Blood Transfusion Reactions: Motion Sickness Additional Past Anesthesia/Blood Transfusion Reaction / Comment(s): Family hx unknown, pt adopted. Past Psychological History: Bipolar Smoking Status: Former smoker Past Alcohol Use History: None Reported Past Drug Use History: None Reported - Past Family History Father Family Medical History: Unable to Obtain Additional Family Medical History / Comment(s): Pt adopted. Medications and Allergies Home Medications Medication Instructions Recorded Confirmed Type Clopidogrel [Plavix] 75 mg PO DAILY #30 tab 09/05/20 07/29/22 Rx Atorvastatin [Lipitor] 40 mg PO DAILY 03/23/21 07/29/22 History Dulaglutide [Trulicity] 3 mg SQ Q7D 03/23/21 07/29/22 History Sevelamer [Renvela] 800 mg PO BID-W/MEALS 03/23/21 07/29/22 History Vascepa 1gm 1 gm PO BID 03/23/21 07/29/22 History Calcium Acetate 667 mg PO TID-W/MEALS 02/25/22 07/29/22 History Pantoprazole [Protonix] 40 mg PO DAILY 02/25/22 07/29/22 History Sevelamer [Renvela] 1,600 mg PO W/SUPPER 04/29/22 07/29/22 History Zonisamide [Zonegran] 100 mg PO DAILY 30 Days #30 cap 07/06/22 07/29/22 Rx Darbepoetin Maurizio [Aranesp] 40 mcg SQ Q7D each 07/27/22 07/29/22 Rx Divalproex Sprinkle [Depakote 500 mg PO TID cap 07/27/22 07/29/22 Rx Sprinkle] Heparin Sodium,Porcine [Heparin 5,000 unit SQ Q12HR 30 Days #60 07/27/22 07/29/22 Rx Sodium] each Lacosamide [Vimpat] 100 mg PO BID #6 tab 07/27/22 07/29/22 Rx Metoprolol Tartrate [Lopressor] 25 mg PO BID tab 07/27/22 07/29/22 Rx amLODIPine [Norvasc] 5 mg PO BID tab 07/27/22 07/29/22 Rx levETIRAcetam [Keppra] 500 mg PO MOWEFR@1800 tab 07/27/22 07/29/22 Rx levETIRAcetam [Keppra] 500 mg PO Q12HR tab 07/27/22 07/29/22 Rx bisacodyL 10 mg RECTAL DAILY PRN 07/29/22 07/29/22 History Allergies Allergy/AdvReac Type Severity Reaction Status Date / Time Penicillins Allergy Itching Verified 07/29/22 14:14 Physical Examination - Vital Signs Vital Signs: Vital Signs Temp Pulse Pulse Pulse Resp BP BP 07/30/22 07:35 97.6 F 76 16 148/81 07/30/22 02:14 97.4 F L 70 16 158/80 07/29/22 23:17 97.4 F L 77 18 160/82 07/29/22 22:54 98.6 F 74 16 152/79 07/29/22 21:03 74 16 152/79 07/29/22 14:47 75 18 126/91 Pulse Ox 07/30/22 07:35 99 07/30/22 02:14 98 07/29/22 23:17 100 07/29/22 22:54 07/29/22 21:03 97 07/29/22 14:47 99 Intake and Output 07/29/22 07/30/22 07/30/22 22:59 06:59 14:59 Other: Voiding Method Toilet # Bowel Movements 1 Weight 72.575 kg GENERAL: The patient is lying in bed and is not in acute distress. CHEST: The heart rate is regular rate rhythm. No murmurs to auscultation. LUNG: Clear to auscultation bilaterally no wheezing noted throughout. Not labored breathing. ABDOMEN/GI: Bowel sounds present in all 4 quadrants. No tenderness to palpation throughout. NEUROLOGICAL: Higher mental function: The patient is mildly drowsy but is awakeable to voice. She stated she is in the hospital. Is slowing responding to questions. Patient is following few simple commands. Language is limited. No neglect. Cranial nerves: The pupils are round, equal and reactive to light. Visual reich are full to confrontation throughout. Extraocular movement is intact no nystagmus is noted. The facial strength is right nasolabial flattening (old). No dysarthria is noted. Has hypophoni. Shoulder shrug is normal bilaterally. Motor: The strength is has left sided weakness (lower > upper. Has antigravity of upper while lower is 1). Otherwise 5 over 5 throughout right side. Somewhat increased tone ove the left lower. Normal bulk. Cerebellum: Normal finger to nose bilaterally. Sensation: Sensation is normal to touch throughout. Reflexes (right/left): 1+ Plantars is decreased over the left side (old). Results - Laboratory Findings CBC and BMP: 07/29/22 11:25 07/30/22 07:04 Abnormal Lab Findings: Abnormal Labs 07/29/22 07/30/22 07/30/22 11:25 06:43 07:04 Sodium 136 L Carbon Dioxide 20 L BUN 35 H 45 H Creatinine 9.62 H* 10.33 H* Glucose 106 H Total Protein 6.1 L Albumin 3.3 L Procalcitonin 0.33 H Assessment and Plan Assessment: This is a 53-year-old woman with history of medical refractory progress he was recently discharged from our facility on 07/27/2022 because of clinical status epilepticus who presented to the back to our facility from nursing facility because of lethargy. Medical refractory epilepsy on VNS and appears she has primary generalized epilepsy (on multiple medication). She was found lethargic and I'll not sure if the patient had a seizure/post ictal state. History of epilepsy and she had a prolonged EEG in our facility which was suggestive of primary generalized epilepsy Left ICA stenosis of 75% on CTA but discrepancy on the carotid duplex and not significant History of stroke with residual left hemiparesis Dabetes mellitus End-stage renal disease on dialysis Hypertension Plan: She had multiple EEGs in a prolonged to a half hour EEG in our facility. There is no need for a repeat EEG if clinically she is improving. Continue Zonegran 100 mg a tablet twice a day, Keppra 500 mg 1 tablet every 12 hours with additional 500 mg after dialysis, Vimpat 100 mg twice a day Depakote 500 mg 1 tablet 3 times a day. On just the recent and prior admission patient was on these medication and had no seizures for days prior to discharge. Continue neuro checks Placed on seizure precautions seizure pads I highly recommend the patient to follow-up with an epileptilogist as outpatient for her medical refractory epilepsy. She had multiple admission to our [facility] as well is to another local facility and her seizures needs to be seen by a specialist as an outpatient. Consider Epidiolex since has medical refractory epilepsy Nephrology is consulted Speech therapy is consulted Defer the rest of the medical management to the primary team The plan was discussed with the patient's nurse Thank you for the consultation Time with Patient: Greater than 30
[2022-07-30] MEDS ORDERED: LEVOFLOXACIN 750MG-D5W PMX 750 MG in DEXTROSE/WATER 1 150ML.BAG IVPB ONE ×2 (15:00→17:00)
[2022-07-31] MEDS: levETIRAcetam IV 500 MG in SODIUM CHLORIDE 0.9% 100 ML IVPB SCH ×3 (01:01→21:13)
[2022-07-31] MEDS: VALPROATE SODIUM 500 MG in SODIUM CHLORIDE 0.9% 100 ML IVPB SCH ×3 (04:20→20:01)
[2022-07-31] MEDS: CLOPIDOGREL 75 MG TAB PO SCH (08:48)
[2022-07-31] MEDS: ATORVASTATIN 40 MG TAB PO SCH (08:48)
[2022-07-31] MEDS: METOPROLOL TARTRATE 25 MG TAB PO SCH ×2 (08:48→21:19)
[2022-07-31] MEDS: HEPARIN SODIUM,PORCINE/PF 5,000 UNIT/0.5 ML SYRINGE SQ SCH ×2 (08:48→21:20)
[2022-07-31] MEDS: CALCIUM ACETATE 667 MG TAB PO SCH ×3 (08:48→16:51)
[2022-07-31] MEDS: SEVELAMER 800 MG TAB PO SCH ×3 (08:49→16:51)
[2022-07-31] MEDS: ZONISAMIDE 100 MG CAP PO SCH (08:49)
[2022-07-31] MEDS: amLODIPine 5 MG TAB PO SCH ×2 (08:49→21:20)
[2022-07-31] MEDS: PANTOPRAZOLE 40 MG/10 ML VIAL IVP SCH (09:51)
[2022-07-31 10:21] LABS: BUN/Creat Ratio 4.43 Ratio (12.00-20.00); Blood Urea Nitrogen 35.5 mg/dL (9.0-27.0); Calcium 9.3 mg/dL (8.7-10.3); Carbon Dioxide 20.4 mmol/L (20.0-27.5); Non-African American GFR(CKD) 5.2 (60.0-200.0); Potassium 4.6 mmol/L (3.5-5.5)
[2022-07-31 10:34] LABS: Basophils # (A) 0.06 X 10*3/uL (0.00-0.10); Basophils % (A) 0.8 %; Eosinophils # (A) 0.11 X 10*3/uL (0.04-0.35); Eosinophils % (A) 1.4 %; HCT 29.5 % (37.2-46.3); HGB 9.2 g/dL (12.0-15.0); Immature Grans, Automated 2.9 %; Lymphocytes # (A) 2.78 X 10*3/uL (0.90-5.00); Lymphocytes % (A) 36.6 %; MCHC 31.2 g/dL (32.0-37.0); MCV 89.7 fL (80.0-97.0); Mean Platelet Volume 10.7 fL (9.5-12.2); Monocytes # (A) 0.78 X 10*3/uL (0.20-1.00); Monocytes % (A) 10.3 %; NRBC Per 100 WBC 0 /100 WBCS (0.0-0.0); Neutrophils # (A) 3.65 X 10*3/uL (1.80-7.70); Platelet Count 154 X 10*3/uL (140-440); RBC 3.29 X 10*6/uL (4.10-5.20); RDW 14.7 % (11.5-14.5)
--- NOTE | 2022-07-31 11:13 | P.PN ---
Subjective Patient is seen in follow-up for end-stage renal disease. No problems with dialysis yesterday. Sitting up in bed. Tolerating dysphagia 3 diet but has to be fed. Vital signs are stable. General: Awake. No acute distress. HEENT: Head exam is unremarkable. LUNGS: Breath sounds decreased. HEART: Rate and Rhythm are regular. ABDOMEN: Soft, no distention. EXTREMITITES: No edema. Objective - Vital Signs Vital signs: Vital Signs Temp 98.1 F 07/31/22 07:18 Pulse 72 07/31/22 07:18 Resp 16 07/31/22 07:18 BP 132/72 07/31/22 07:18 Pulse Ox 98 07/31/22 07:18 FiO2 Intake & Output 07/30/22 07/31/22 07/31/22 18:59 06:59 18:59 Intake Total 300 Output Total 1300 Balance -1000 Intake: Hemodialysis 300 Output: Hemodialysis 1300 Other: # Voids 1 # Bowel Movements 3 1 1 - Labs CBC & Chem 7: 07/31/22 05:29 07/31/22 05:29 Labs: Abnormal Lab Results - Last 24 Hours (Table) 07/30/22 07/31/22 07/31/22 Range/Units 06:43 05:29 05:29 RBC 3.29 L (4.10-5.20) X 10*6/uL Hgb 9.2 L (12.0-15.0) g/dL Hct 29.5 L (37.2-46.3) % MCHC 31.2 L (32.0-37.0) g/dL RDW 14.7 H (11.5-14.5) % Immature Gran # 0.22 H (0.00-0.04) X 10*3/uL BUN 35.5 H (9.0-27.0) mg/dL Creatinine 8.0 H* (0.6-1.5) mg/dL Est GFR (CKD-EPI)AfAm 6.0 L (60.0-200.0) Est GFR (CKD-EPI)NonAf 5.2 L (60.0-200.0) BUN/Creatinine Ratio 4.43 L (12.00-20.00) Ratio Procalcitonin 0.33 H (0.02-0.09) ng/mL Assessment and Plan Plan: Assessment: 1. End-stage renal disease maintained on hemodialysis on Monday schedule. 2. Hypertension with chronic kidney disease. 3. History of seizures. 4. Chronic kidney disease mineral bone disease maintained on PhosLo and Renvela. 5. Metabolic acidosis secondary to chronic kidney disease and missed dialysis treatment. Better. Plan: Hemodialysis tomorrow. Follow-up phosphorus level.
--- NOTE | 2022-07-31 11:51 | P.PN ---
Subjective Progress Note Date: 07/31/22 The patient seen at bedside and the according to the patient and her nurse no further seizures. She feels she continues to be stable. Objective - Vital Signs Vital signs: Vital Signs Temp 98.1 F 07/31/22 07:18 Pulse 72 07/31/22 07:18 Resp 16 07/31/22 07:18 BP 132/72 07/31/22 07:18 Pulse Ox 98 07/31/22 07:18 FiO2 Intake & Output 07/30/22 07/31/22 07/31/22 18:59 06:59 18:59 Intake Total 300 Output Total 1300 Balance -1000 Intake: Hemodialysis 300 Output: Hemodialysis 1300 Other: # Voids 1 # Bowel Movements 3 1 1 - Exam GENERAL: The patient is lying in bed and is not in acute distress. NEUROLOGICAL: Higher mental function: The patient is awake, alert, oriented to self, place. She correctly stated the year but could not tell me month. She is slow responding. Following simple commands. Language is limited. No neglect. Cranial nerves: The pupils are round, equal and reactive to light. Visual reich are full to confrontation throughout. Extraocular movement is intact no nystagmus is noted. The facial strength is right nasolabial flattening (old). No dysarthria is noted. Has hypophoni. Shoulder shrug is normal bilaterally. Motor: The strength is has left sided weakness (lower > upper. Has antigravity of upper while lower is 1). Otherwise 5 over 5 throughout right side. Somewhat increased tone ove the left lower. Normal bulk. Cerebellum: Normal finger to nose bilaterally. Sensation: Sensation is normal to touch throughout. Reflexes (right/left): 1+ Plantars is decreased over the left side (old). - Labs CBC & Chem 7: 07/31/22 05:29 07/31/22 05:29 Labs: Abnormal Lab Results - Last 24 Hours (Table) 07/30/22 07/31/22 07/31/22 Range/Units 06:43 05:29 05:29 RBC 3.29 L (4.10-5.20) X 10*6/uL Hgb 9.2 L (12.0-15.0) g/dL Hct 29.5 L (37.2-46.3) % MCHC 31.2 L (32.0-37.0) g/dL RDW 14.7 H (11.5-14.5) % Immature Gran # 0.22 H (0.00-0.04) X 10*3/uL BUN 35.5 H (9.0-27.0) mg/dL Creatinine 8.0 H* (0.6-1.5) mg/dL Est GFR (CKD-EPI)AfAm 6.0 L (60.0-200.0) Est GFR (CKD-EPI)NonAf 5.2 L (60.0-200.0) BUN/Creatinine Ratio 4.43 L (12.00-20.00) Ratio Procalcitonin 0.33 H (0.02-0.09) ng/mL Assessment and Plan Assessment: This is a 53-year-old woman with history of medical refractory progress he was recently discharged from our facility on 07/27/2022 because of clinical status epilepticus who presented to the back to our facility from nursing facility because of lethargy. 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 She was found lethargic and I'll not sure if the patient had a seizure/post ictal state. She has been stable in our facility and no further seizures for the past two days. * History of epilepsy and she had a prolonged EEG in our facility which was suggestive of primary generalized epilepsy * Left ICA stenosis of 75% on CTA but discrepancy on the carotid duplex and not significant * History of stroke with residual left hemiparesis * Dabetes mellitus * End-stage renal disease on dialysis * Hypertension Plan: * She had multiple EEGs in a prolonged to a half hour EEG in our facility. There is no need for a repeat EEG if clinically she is improving. * Continue Zonegran 100 mg a tablet twice a day, Keppra 500 mg 1 tablet every 12 hours with additional 500 mg after dialysis, Vimpat 100 mg twice a day Depakote 500 mg 1 tablet 3 times a day. On just the recent and prior admission patient was on these medication and had no seizures for days prior to discharge. * her Depakote level currently is 111.9 (considered high normal). * * Continue neuro checks * Placed on seizure precautions seizure pads * I highly recommend the patient to follow-up with an epileptilogist as outpatient for her medical refractory epilepsy. She had multiple admission to our [facility] as well is to another local facility and her seizures needs to be seen by a specialist as an outpatient. Consider Epidiolex since has medical refractory epilepsy * Nephrology is consulted * Speech therapy is consulted * Defer the rest of the medical management to the primary team I do not understand why the patient has no further seizures while hospitalized during this visit and during her last recent hospital visit. But once she gets discharged she gets readmitted to our hospital as well at different local hospital for these recurrent seizure-like activity and unresponsiveness episodes. I am not sure if patient is not getting her medication on time or questionably misses her medication The plan was discussed with the patient's nurse. If continues to be stable by tomorrow can be discharged from neurological perspective. Will continue to monitor. Dr. Sosa will start neurology service tomorrow A.M. Time with Patient: Less than 30
--- NOTE | 2022-08-01 01:53 | P.PN ---
Subjective Progress Note Date: 07/30/22 Patient is a 52-year-old female with a known history of ESRD on hemodialysis, seizure disorder with status epilepticus during recent admission and was discharged to [facility] on 07/27/2022, hypothyroidism, hypertension, hyperlipidemia, diabetes type 2, history of CVA/TIA and history of left foot drop, bipolar dis order and prior history of smoking was sent back from alf. Patient was discharged on 07/27/2022. Patient was found to be progressively lethargic as noted by the alf staff, patient was tested positive at the alf this morning however COVID-19 PCR was negative currently. Possible aspiration was also suspected as per alf staff. Patient had a swallow study recently and was able to tolerate dysphagia diet with aspiration precautions. Patient was afebrile on admission. Pulse ox 96% on room air. Chest x-ray showed right perihilar patchy opacities which may represent infiltrative versus atelectasis. EKG showed sinus rhythm Laboratory data showed WBC 6.4 hemoglobin 12.3, platelets 179 Sodium 136 potassium 4.5 chloride 100 bicarb is 24 BUN 35 and creatinine 9.62 a nd blood sugar is 106 UDS negative and influenza A, B, RSV and SARS-CoV-2 not detected. 07/30/2022 Patient is lying in bed. Awake alert and oriented. Slow to respond. No further episodes of seizures. No complaints of chest pain or worsening shortness of breath. Denies any complaints of cough or sputum production. No nausea vomiting abdominal pain or diarrhea Laboratory reviewed. Procalcitonin level is 0.33. Sodium 139 potassium 4.9 chloride 106 bicarb is 20 BUN 45 creatinine 10.3. Patient is undergoing hemodialysis today. Nephrology and neurology is on board. Current medications reviewed. Objective - Vital Signs Vital signs: Vital Signs Temp 97.6 F 07/30/22 07:35 Pulse 76 07/30/22 07:35 Resp 16 07/30/22 07:35 BP 148/81 07/30/22 07:35 Pulse Ox 99 07/30/22 07:35 FiO2 Intake & Output 07/29/22 07/30/22 07/30/22 18:59 06:59 18:59 Weight 72.575 kg Other: Voiding Method Toilet # Bowel Movements 1 - Exam PHYSICAL EXAMINATION: Patient is lying in the bed comfortably, no acute distress, awake alert and oriented.. Lethargic and weak and slow to respond. HEENT: Normocephalic. Neck is supple. Pupils reactive. Nostrils clear. Oral cavity is moist. Neck reveals no JVD, carotid bruits, or thyromegaly. CHEST EXAMINATION: Trachea is central. Symmetrical expansion. Bibasilar diminished sounds. No wheezing or rhonchi.. CARDIAC: Normal S1, S2 with no gallops. No murmurs ABDOMEN: Soft. Bowel sounds present. Nontender. No organomegaly. No abdominal bruits. Extremities: reveal no edema. No clubbing or cyanosis Neurologically awake, alert, oriented [id number] weakness. Lethargic and drowsy. Skin: No rash or skin lesions. Psychiatric: Coperative. Could not be assessed completely. Musculoskeletal: No joint swelling or deformity. - Labs CBC & Chem 7: 07/31/22 05:29 07/31/22 05:29 Labs: Abnormal Lab Results - Last 24 Hours (Table) 07/30/22 07/30/22 Range/Units 06:43 07:04 Carbon Dioxide 20 L (22-30) mmol/L BUN 45 H (7-17) mg/dL Creatinine 10.33 H* (0.52-1.04) mg/dL Procalcitonin 0.33 H (0.02-0.09) ng/mL Assessment and Plan Assessment: RT. perihilar OPACITIES possible atelectasis versus pneumonia. COVID-19 PCR not detected. Missed Hemodialysis ESRD on hemodialysis Monday and Monday Recent admission with status epilepticus. We will continue with antiepileptic drugs as per recent admission. Dysphagia diet with aspiration precautions as per most recent swallow study. Left ICA 75% stenosis at the origin as per CTA neck. Hypodensity in the brainstem and left basal ganglia related to previous CVA History of CVA with left-sided weakness Diabetes type 2 Peripheral neuropathy Memory impairment GERD Hypertension Hyperlipidemia Hypothyroidism Bipolar disorder Prior history of smoking DVT prophylaxis with heparin subcu GI prophylaxis Plan: Patient will be continued on telemetry monitoring and will be started antiepileptic medications as per recent neurology recommendations. Patient was started on antibiotics, Levaquin. Nephrology is on board. Hemodialysis today. Continue with dysphagia diet with aspiration precautions Follow-up procalcitonin level and repeat chest x-ray. Continues home medications and follow-up closely. Prognosis is guarded with multiple medical problems and comorbid conditions. Time with Patient: Greater than 30
--- NOTE | 2022-08-01 01:56 | P.PN ---
Subjective Progress Note Date: 07/31/22 Patient is a 52-year-old female with a known history of ESRD on hemodialysis, seizure disorder with status epilepticus during recent admission and was discharged to [facility] on 07/27/2022, hypothyroidism, hypertension, hyperlipidemia, diabetes type 2, history of CVA/TIA and history of left foot drop, bipolar dis order and prior history of smoking was sent back from detention. Patient was discharged on 07/27/2022. Patient was found to be progressively lethargic as noted by the detention staff, patient was tested positive at the detention this morning however COVID-19 PCR was negative currently. Possible aspiration was also suspected as per detention staff. Patient had a swallow study recently and was able to tolerate dysphagia diet with aspiration precautions. Patient was afebrile on admission. Pulse ox 96% on room air. Chest x-ray showed right perihilar patchy opacities which may represent infiltrative versus atelectasis. EKG showed sinus rhythm Laboratory data showed WBC 6.4 hemoglobin 12.3, platelets 179 Sodium 136 potassium 4.5 chloride 100 bicarb is 24 BUN 35 and creatinine 9.62 a nd blood sugar is 106 UDS negative and influenza A, B, RSV and SARS-CoV-2 not detected. 07/30/2022 Patient is lying in bed. Awake alert and oriented. Slow to respond. No further episodes of seizures. No complaints of chest pain or worsening shortness of breath. Denies any complaints of cough or sputum production. No nausea vomiting abdominal pain or diarrhea Laboratory reviewed. Procalcitonin level is 0.33. Sodium 139 potassium 4.9 chloride 106 bicarb is 20 BUN 45 creatinine 10.3. Patient is undergoing hemodialysis today. Nephrology and neurology is on board. 07/31/2022 Patient is currently resting in the bed. Awake alert and oriented x3. Slow to respond. No complaints of chest pain or worsening shortness of breath. Patient has been afebrile overnight. No further episodes of seizures. Patient is being on dysphagia diet. Patient did have episode of choking today afternoon while eating. Remained stable at this time. Denies any complaints of worsening chest pain or shortness of breath. Patient has been afebrile. Follow-up repeat chest x-ray tomorrow. Nephrology neurology on board. Plans for discharge back to facility in the next 24 to 48 hours. Current medications reviewed. Objective - Vital Signs Vital signs: Vital Signs Temp 97.7 F 07/31/22 14:00 Pulse 74 07/31/22 14:00 Resp 17 07/31/22 14:00 BP 125/81 07/31/22 14:00 Pulse Ox 98 07/31/22 14:00 FiO2 Intake & Output 07/31/22 07/31/22 08/01/22 06:59 18:59 06:59 Other: # Voids 1 # Bowel Movements 1 1 - Exam PHYSICAL EXAMINATION: Patient is lying in the bed comfortably, no acute distress, awake alert and oriented.. Lethargic and weak and slow to respond. HEENT: Normocephalic. Neck is supple. Pupils reactive. Nostrils clear. Oral cavity is moist. Neck reveals no JVD, carotid bruits, or thyromegaly. CHEST EXAMINATION: Trachea is central. Symmetrical expansion. Bibasilar diminished sounds. No wheezing or rhonchi.. CARDIAC: Normal S1, S2 with no gallops. No murmurs ABDOMEN: Soft. Bowel sounds present. Nontender. No organomegaly. No abdominal bruits. Extremities: reveal no edema. No clubbing or cyanosis Neurologically awake, alert, oriented [id number] weakness. Lethargic and drowsy. Skin: No rash or skin lesions. Psychiatric: Coperative. Could not be assessed completely. Musculoskeletal: No joint swelling or deformity. - Labs CBC & Chem 7: 07/31/22 05:29 07/31/22 05:29 Labs: Abnormal Lab Results - Last 24 Hours (Table) 07/31/22 07/31/22 Range/Units 05:29 05:29 RBC 3.29 L (4.10-5.20) X 10*6/uL Hgb 9.2 L (12.0-15.0) g/dL Hct 29.5 L (37.2-46.3) % MCHC 31.2 L (32.0-37.0) g/dL RDW 14.7 H (11.5-14.5) % Immature Gran # 0.22 H (0.00-0.04) X 10*3/uL BUN 35.5 H (9.0-27.0) mg/dL Creatinine 8.0 H* (0.6-1.5) mg/dL Est GFR (CKD-EPI)AfAm 6.0 L (60.0-200.0) Est GFR (CKD-EPI)NonAf 5.2 L (60.0-200.0) BUN/Creatinine Ratio 4.43 L (12.00-20.00) Ratio Assessment and Plan Assessment: RT. perihilar OPACITIES possible atelectasis versus pneumonia. COVID-19 PCR not detected. Missed Hemodialysis ESRD on hemodialysis Monday and Monday Recent admission with status epilepticus. We will continue with antiepileptic drugs as per recent admission. Dysphagia diet with aspiration precautions as per most recent swallow study. Left ICA 75% stenosis at the origin as per CTA neck. Hypodensity in the brainstem and left basal ganglia related to previous CVA History of CVA with left-sided weakness Diabetes type 2 Peripheral neuropathy Memory impairment GERD Hypertension Hyperlipidemia Hypothyroidism Bipolar disorder Prior history of smoking DVT prophylaxis with heparin subcu GI prophylaxis Plan: Patient will be continued on telemetry monitoring and will be started antiepileptic medications as per recent neurology recommendations. Patient was started on antibiotics, Levaquin. Nephrology is on board. Hemodialysis tomorrow Continue with dysphagia diet with aspiration precautions Follow-up procalcitonin level 0.33 Continues home medications and follow-up closely. Prognosis is guarded with multiple medical problems and comorbid conditions. Follow-up repeat chest x-ray tomorrow. Nephrology neurology on board. Plans for discharge back to facility in the next 24 to 48 hours. Time with Patient: Greater than 30
[2022-08-01] MEDS: VALPROATE SODIUM 500 MG in SODIUM CHLORIDE 0.9% 100 ML IVPB SCH (04:18)
[2022-08-01] MEDS: CALCIUM ACETATE 667 MG TAB PO SCH ×3 (06:28→18:08)
[2022-08-01] MEDS: SEVELAMER 800 MG TAB PO SCH ×3 (06:28→14:02)
--- NOTE | 2022-08-01 08:46 | XR ---
EXAMINATION TYPE: XR chest 1V DATE OF EXAM: 08/01/2022 COMPARISON: 07/30/2022 HISTORY: Cough TECHNIQUE: Single frontal view of the chest is obtained. FINDINGS: There is no focal air space opacity, pleural effusion, or pneumothorax seen. The cardiac silhouette size is within normal limits. The osseous structures are intact. There is a loop recorde r overlying the left heart border. There also is a stimulator device seen with extending cephalad. IMPRESSION: No acute process.
[2022-08-01 08:49] LABS: Basophils # (A) 0.06 X 10*3/uL (0.00-0.10); Eosinophils # (A) 0.11 X 10*3/uL (0.04-0.35); Eosinophils % (A) 1.9 %; HCT 29.7 % (37.2-46.3); HGB 9.5 g/dL (12.0-15.0); Immature Grans, Automated 2.9 %; Lymphocytes # (A) 2.51 X 10*3/uL (0.90-5.00); Lymphocytes % (A) 42.4 %; MCH 28.4 pg (27.0-32.0); MCV 88.7 fL (80.0-97.0); Mean Platelet Volume 10.4 fL (9.5-12.2); Monocytes # (A) 0.56 X 10*3/uL (0.20-1.00); Monocytes % (A) 9.5 %; NRBC Per 100 WBC 0 /100 WBCS (0.0-0.0); Neutrophils # (A) 2.51 X 10*3/uL (1.80-7.70); Neutrophils % (A) 42.3 %; Platelet Count 143 X 10*3/uL (140-440); RBC 3.35 X 10*6/uL (4.10-5.20); RDW 14.7 % (11.5-14.5); WBC 5.92 X 10*3/uL (4.50-10.00)
[2022-08-01] MEDS ORDERED: LEVOFLOXACIN 500MG-D5W PMX 500 MG in DEXTROSE/WATER 1 100ML.BAG IVPB SCH (09:00)
[2022-08-01 09:04] LABS: African American GFR (CKD) 4.7 (60.0-200.0); Anion Gap 10.5 mmol/L (10.00-18.00); BUN/Creat Ratio 4.72 Ratio (12.00-20.00); Blood Urea Nitrogen 45.8 mg/dL (9.0-27.0); Calcium 9.8 mg/dL (8.7-10.3); Carbon Dioxide 24.5 mmol/L (20.0-27.5); Non-African American GFR(CKD) 4.1 (60.0-200.0); Potassium 4.8 mmol/L (3.5-5.5)
[2022-08-01] MEDS: ATORVASTATIN 40 MG TAB PO SCH (10:54)
[2022-08-01] MEDS: amLODIPine 5 MG TAB PO SCH ×2 (10:54→21:17)
[2022-08-01] MEDS: CLOPIDOGREL 75 MG TAB PO SCH (10:54)
[2022-08-01] MEDS: ZONISAMIDE 100 MG CAP PO SCH (10:54)
[2022-08-01] MEDS: PANTOPRAZOLE 40 MG/10 ML VIAL IVP SCH ×2 (10:54→10:58)
[2022-08-01] MEDS: METOPROLOL TARTRATE 25 MG TAB PO SCH ×2 (10:54→21:17)
[2022-08-01] MEDS: HEPARIN SODIUM,PORCINE/PF 5,000 UNIT/0.5 ML SYRINGE SQ SCH ×2 (10:54→21:17)
[2022-08-01] MEDS: levETIRAcetam IV 500 MG in SODIUM CHLORIDE 0.9% 100 ML IVPB SCH ×2 (10:54→11:03)
[2022-08-01] MEDS: PANTOPRAZOLE 40 MG TABLET PO SCH (11:09)
--- NOTE | 2022-08-01 11:18 | P.PN ---
Subjective Patient is seen in follow-up for end-stage renal disease. Tolerating dialysis well. Sitting up in bed. Tolerating dysphagia 3 diet but has to be fed. Hemodynamically stable. No changes overnight. Vital signs are stable. General: Awake. No acute distress. HEENT: Head exam is unremarkable. LUNGS: Breath sounds decreased. HEART: Rate and Rhythm are regular. ABDOMEN: Soft, no distention. EXTREMITITES: No edema. Objective - Vital Signs Vital signs: Vital Signs Temp 97.7 F 08/01/22 07:15 Pulse 72 08/01/22 07:15 Resp 16 08/01/22 07:15 BP 144/85 08/01/22 07:15 Pulse Ox 97 08/01/22 07:15 FiO2 Intake & Output 07/31/22 08/01/22 08/01/22 18:59 06:59 18:59 Other: # Voids 1 # Bowel Movements 1 1 - Labs CBC & Chem 7: 08/01/22 05:14 08/01/22 05:14 Labs: Abnormal Lab Results - Last 24 Hours (Table) 08/01/22 08/01/22 Range/Units 05:14 05:14 RBC 3.35 L (4.10-5.20) X 10*6/uL Hgb 9.5 L (12.0-15.0) g/dL Hct 29.7 L (37.2-46.3) % RDW 14.7 H (11.5-14.5) % Immature Gran # 0.17 H (0.00-0.04) X 10*3/uL BUN 45.8 H (9.0-27.0) mg/dL Creatinine 9.7 H* (0.6-1.5) mg/dL Est GFR (CKD-EPI)AfAm 4.7 L (60.0-200.0) Est GFR (CKD-EPI)NonAf 4.1 L (60.0-200.0) BUN/Creatinine Ratio 4.72 L (12.00-20.00) Ratio Assessment and Plan Plan: Assessment: 1. End-stage renal disease maintained on hemodialysis on Monday schedule. 2. Hypertension with chronic kidney disease. 3. History of seizures. 4. Chronic kidney disease mineral bone disease maintained on PhosLo and Renvela. Phosphorus level 5.0 today. 5. Metabolic acidosis secondary to chronic kidney disease and missed dialysis treatment. Better. Plan: Currently seen while undergoing hemodialysis. Next treatment on Monday.
[2022-08-01] MEDS: levETIRAcetam 500 MG TAB PO SCH ×3 (12:00→21:17)
--- NOTE | 2022-08-01 13:51 | P.PN ---
Subjective Progress Note Date: 08/01/22 Patient is a 52-year-old female with a known history of ESRD on hemodialysis, seizure disorder with status epilepticus during recent admission and was discharged to [facility] on 07/27/2022, hypothyroidism, hypertension, hyperlipidemia, diabetes type 2, history of CVA/TIA and history of left foot drop, bipolar diso rder and prior history of smoking was sent back from [facility]. Patient was discharged on 07/27/2022. Patient was found to be progressively lethargic as noted by the [facility] staff, patient was tested positive at the [facility] this morning however COVID-19 PCR was negative currently. Possible aspiration was also suspected as per [facility] staff. Patient had a swallow study recently and was able to tolerate dysphagia diet with aspiration precautions. Patient was afebrile on admission. Pulse ox 96% on room air. Chest x-ray showed right perihilar patchy opacities which may represent infiltrative versus atelectasis. EKG showed sinus rhythm Laboratory data showed WBC 6.4 hemoglobin 12.3, platelets 179 Sodium 136 potassium 4.5 chloride 100 bicarb is 24 BUN 35 and creatinine 9.62 an d blood sugar is 106 UDS negative and influenza A, B, RSV and SARS-CoV-2 not detected. 07/30/2022 Patient is lying in bed. Awake alert and oriented. Slow to respond. No further episodes of seizures. No complaints of chest pain or worsening shortness of breath. Denies any complaints of cough or sputum production. No nausea vomiting abdominal pain or diarrhea Laboratory reviewed. Procalcitonin level is 0.33. Sodium 139 potassium 4.9 chloride 106 bicarb is 20 BUN 45 creatinine 10.3. Patient is undergoing hemodialysis today. Nephrology and neurology is on board. 07/31/2022 Patient is currently resting in the bed. Awake alert and oriented x3. Slow to respond. No complaints of chest pain or worsening shortness of breath. Patient has been afebrile overnight. No further episodes of seizures. Patient is being on dysphagia diet. Patient did have episode of choking today afternoon while eating. Remained stable at this time. Denies any complaints of worsening chest pain or shortness of breath. Patient has been afebrile. Follow-up repeat chest x-ray tomorrow. Nephrology neurology on board. Plans for discharge back to facility in the next 24 to 48 hours. 08/01/2021 Patient is evaluated today resting in bed, currently receiving hemodialysis. She has been maintained on dysphagia diet with 1:1 supervision. She reports tolerating diet. No acute events overnight, no further seizure like activity. Neurology recommending for patient to follow up with epilepsy specialist on discharge. Currently she is refusing D/C to subacute rehab. She would like to discharge home and states her will be able to provide care. Physical therapy evaluation pending at this time. She has not been ambulatory. Review of Systems Constitutional: Denied any fatigue denied any fever. Cardio vascular: denied any chest pain, palpitations Gastrointestinal: denied any nausea, vomiting, diarrhea Pulmonary: Denied any shortness of breath cough Neurologic denied any new focal deficits All inpatient medications were reviewed and appropriate changes in these medications as dictated in the interval history and assessment and plan. PHYSICAL EXAMINATION: GENERAL: The patient is alert and oriented x3, not in any acute distress. Well developed, well nourished. HEENT: Pupils are round and equally reacting to light. EOMI. No scleral icterus. No conjunctival pallor. Normocephalic, atraumatic. No pharyngeal erythema. No thyromegaly. CARDIOVASCULAR: S1 and S2 present. No murmurs, rubs, or gallops. PULMONARY: Chest is clear to auscultation, no wheezing or crackles. ABDOMEN: Soft, nontender, nondistended, normoactive bowel sounds. No palpable organomegaly. MUSCULOSKELETAL: No joint swelling or deformity. EXTREMITIES: No cyanosis, clubbing, or pedal edema. NEUROLOGICAL: Slurred speech, diffuse generalized weakness SKIN: No rashes. Assessment and Plan Assessment RT. perihilar pacities possible atelectasis versus pneumonia. COVID-19 PCR not detected. Procalcitonin level 0.33. Follow up chest xray shows clearing of opacities and no white count. Pneumonia ruled out likely representing atelectasis. Missed Hemodialysis ESRD on hemodialysis Monday and Monday Recent admission with status epilepticus. We will continue with antiepileptic drugs as per recent admission. Dysphagia diet with aspiration precautions as per most recent swallow study. Left ICA 75% stenosis at the origin as per CTA neck. Hypodensity in the brainstem and left basal ganglia related to previous CVA History of CVA with left-sided weakness Diabetes type 2 Peripheral neuropathy Memory impairment GERD Hypertension Hyperlipidemia Hypothyroidism Bipolar disorder Prior history of smoking DVT prophylaxis with heparin subcu GI prophylaxis Plan Continue current medications Hemodialysis today PT/OT consultation for discharge planning Patient would like to DC home at this time Reinforce education regarding dysphagia diet and aspiration precautions Will Require ongoing speech therapy outpatient. Possible D/C in the next 24 to 48 hours The impression and plan of care has been dictated by Kelly Yanez Nurse Practitioner as directed. Dr. Estelle MD I have performed a history and physical examination and medical decision making of this patient, discussed the same with the dictator, and agree with the dictators assessment and plan as written, documented as a scribe. Based on total visit time, I have performed more than 50% of this visit. Objective - Vital Signs Vital signs: Vital Signs Temp 98.0 F 08/01/22 13:19 Pulse 69 08/01/22 13:19 Resp 18 08/01/22 13:19 BP 126/62 08/01/22 13:19 Pulse Ox 97 08/01/22 07:15 FiO2 Intake & Output 07/31/22 08/01/22 08/01/22 18:59 06:59 18:59 Intake Total 300 Output Total 1500 Balance -1200 Intake: Hemodialysis 300 Output: Hemodialysis 1500 Other: Voiding Method Toilet # Voids 1 # Bowel Movements 1 1 - Labs CBC & Chem 7: 08/01/22 05:14 08/01/22 05:14 Labs: Abnormal Lab Results - Last 24 Hours (Table) 08/01/22 08/01/22 Range/Units 05:14 05:14 RBC 3.35 L (4.10-5.20) X 10*6/uL Hgb 9.5 L (12.0-15.0) g/dL Hct 29.7 L (37.2-46.3) % RDW 14.7 H (11.5-14.5) % Immature Gran # 0.17 H (0.00-0.04) X 10*3/uL BUN 45.8 H (9.0-27.0) mg/dL Creatinine 9.7 H* (0.6-1.5) mg/dL Est GFR (CKD-EPI)AfAm 4.7 L (60.0-200.0) Est GFR (CKD-EPI)NonAf 4.1 L (60.0-200.0) BUN/Creatinine Ratio 4.72 L (12.00-20.00) Ratio Assessment and Plan Time with Patient: Less than 30
[2022-08-01] MEDS: DIVALPROEX SPRINKLE 125 MG CAP.SPRINK PO SCH ×2 (18:09→21:18)
[2022-08-02] MEDS: PANTOPRAZOLE 40 MG TABLET PO SCH (06:56)
[2022-08-02] MEDS: CALCIUM ACETATE 667 MG TAB PO SCH ×3 (06:56→16:44)
[2022-08-02] MEDS: SEVELAMER 800 MG TAB PO SCH ×3 (06:56→16:44)
[2022-08-02] MEDS: CLOPIDOGREL 75 MG TAB PO SCH (07:53)
[2022-08-02] MEDS: ATORVASTATIN 40 MG TAB PO SCH (07:53)
[2022-08-02] MEDS: amLODIPine 5 MG TAB PO SCH ×2 (07:53→20:43)
[2022-08-02] MEDS: DIVALPROEX SPRINKLE 125 MG CAP.SPRINK PO SCH ×3 (07:53→20:43)
[2022-08-02] MEDS: HEPARIN SODIUM,PORCINE/PF 5,000 UNIT/0.5 ML SYRINGE SQ SCH ×2 (07:53→20:44)
[2022-08-02] MEDS: ZONISAMIDE 100 MG CAP PO SCH (07:54)
[2022-08-02] MEDS: METOPROLOL TARTRATE 25 MG TAB PO SCH ×2 (07:54→20:43)
[2022-08-02] MEDS: levETIRAcetam 500 MG TAB PO SCH ×2 (07:54→20:43)
--- NOTE | 2022-08-02 11:03 | P.PN ---
Subjective Patient is seen in follow-up for end-stage renal disease. No problems with dialysis yesterday. Sitting up in bed. Tolerating dysphagia 3 diet but has to be fed. Hemodynamically stable. No changes overnight. Wants to go home. Vital signs are stable. General: Awake. No acute distress. HEENT: Head exam is unremarkable. LUNGS: Breath sounds decreased. HEART: Rate and Rhythm are regular. ABDOMEN: Soft, no distention. EXTREMITITES: No edema. Objective - Vital Signs Vital signs: Vital Signs Temp 97.5 F L 08/02/22 07:35 Pulse 67 08/02/22 07:35 Resp 18 08/02/22 07:35 BP 128/76 08/02/22 07:35 Pulse Ox 97 08/02/22 07:35 FiO2 Intake & Output 08/01/22 08/02/22 08/02/22 18:59 06:59 18:59 Intake Total 300 Output Total 1500 Balance -1200 Intake: Hemodialysis 300 Output: Hemodialysis 1500 Other: Voiding Method Toilet # Voids 0 1 - Labs CBC & Chem 7: 08/01/22 05:14 08/01/22 05:14 Assessment and Plan Plan: Assessment: 1. End-stage renal disease maintained on hemodialysis on Monday F riday schedule. 2. Hypertension with chronic kidney disease. Controlled. 3. History of seizures. 4. Chronic kidney disease mineral bone disease maintained on PhosLo and Renvela. Phosphorus level 5.0 today. 5. Metabolic acidosis secondary to chronic kidney disease and missed dialysis treatment. Better. Plan: Hemodialysis tomorrow.
--- NOTE | 2022-08-02 14:57 | P.PN ---
Subjective Progress Note Date: 08/02/22 Patient is a 52-year-old female with a known history of ESRD on hemodialysis, seizure disorder with status epilepticus during recent admission and was discharged to [facility] on 07/27/2022, hypothyroidism, hypertension, hyperlipidemia, diabetes type 2, history of CVA/TIA and history of left foot drop, bipolar diso rder and prior history of smoking was sent back from jail. Patient was discharged on 07/27/2022. Patient was found to be progressively lethargic as noted by the jail staff, patient was tested positive at the jail this morning however COVID-19 PCR was negative currently. Possible aspiration was also suspected as per jail staff. Patient had a swallow study recently and was able to tolerate dysphagia diet with aspiration precautions. Patient was afebrile on admission. Pulse ox 96% on room air. Chest x-ray showed right perihilar patchy opacities which may represent infiltrative versus atelectasis. EKG showed sinus rhythm Laboratory data showed WBC 6.4 hemoglobin 12.3, platelets 179 Sodium 136 potassium 4.5 chloride 100 bicarb is 24 BUN 35 and creatinine 9.62 an d blood sugar is 106 UDS negative and influenza A, B, RSV and SARS-CoV-2 not detected. 07/30/2022 Patient is lying in bed. Awake alert and oriented. Slow to respond. No further episodes of seizures. No complaints of chest pain or worsening shortness of breath. Denies any complaints of cough or sputum production. No nausea vomiting abdominal pain or diarrhea Laboratory reviewed. Procalcitonin level is 0.33. Sodium 139 potassium 4.9 chloride 106 bicarb is 20 BUN 45 creatinine 10.3. Patient is undergoing hemodialysis today. Nephrology and neurology is on board. 07/31/2022 Patient is currently resting in the bed. Awake alert and oriented x3. Slow to respond. No complaints of chest pain or worsening shortness of breath. Patient has been afebrile overnight. No further episodes of seizures. Patient is being on dysphagia diet. Patient did have episode of choking today afternoon while eating. Remained stable at this time. Denies any complaints of worsening chest pain or shortness of breath. Patient has been afebrile. Follow-up repeat chest x-ray tomorrow. Nephrology neurology on board. Plans for discharge back to facility in the next 24 to 48 hours. 08/01/2021 Patient is evaluated today resting in bed, currently receiving hemodialysis. She has been maintained on dysphagia diet with 1:1 supervision. She reports tolerating diet. No acute events overnight, no further seizure like activity. Neurology recommending for patient to follow up with epilepsy specialist on discharge. Currently she is refusing D/C to subacute rehab. She would like to discharge home and states her will be able to provide care. Physical therapy evaluation pending at this time. She has not been ambulatory. 08/02/2022 Patient is resting in bed. She has been evaluated by PT/OT today and recommendations for subacute rehab she is willing to go to rehab now. unable to provide care for her at home at this time. She is maintained on dialysis scheduled of Mon/Mon/Fri and will undergo hemodialysis tomorrow. Continues with aspiration precautions sitting upright with dysphagia chopped diet and nectar thick liquids. Labs and vitals stable. Pending authorization for DC to rehab. Review of Systems Constitutional: Denied any fatigue denied any fever. Cardio vascular: denied any chest pain, palpitations Gastrointestinal: denied any nausea, vomiting, diarrhea Pulmonary: Denied any shortness of breath cough Neurologic denied any new focal deficits All inpatient medications were reviewed and appropriate changes in these medications as dictated in the interval history and assessment and plan. PHYSICAL EXAMINATION: GENERAL: The patient is alert and oriented x3, not in any acute distress. Well developed, well nourished. HEENT: Pupils are round and equally reacting to light. EOMI. No scleral icterus. No conjunctival pallor. Normocephalic, atraumatic. No pharyngeal erythema. No thyromegaly. CARDIOVASCULAR: S1 and S2 present. No murmurs, rubs, or gallops. PULMONARY: Chest is clear to auscultation, no wheezing or crackles. ABDOMEN: Soft, nontender, nondistended, normoactive bowel sounds. No palpable organomegaly. MUSCULOSKELETAL: No joint swelling or deformity. EXTREMITIES: No cyanosis, clubbing, or pedal edema. NEUROLOGICAL: Slurred speech, diffuse generalized weakness SKIN: No rashes. Assessment and Plan Assessment RT. perihilar pacities possible atelectasis versus pneumonia. COVID-19 PCR not detected. Procalcitonin level 0.33. Follow up chest xray shows clearing of opacities and no white count. Pneumonia ruled out likely representing atelectasis. Missed Hemodialysis ESRD on hemodialysis Monday and Monday Recent admission with status epilepticus. We will continue with antiepileptic drugs as per recent admission. Dysphagia diet with aspiration precautions as per most recent swallow study. Left ICA 75% stenosis at the origin as per CTA neck. Hypodensity in the brainstem and left basal ganglia related to previous CVA History of CVA with left-sided weakness Diabetes type 2 Peripheral neuropathy Memory impairment GERD Hypertension Hyperlipidemia Hypothyroidism Bipolar disorder Prior history of smoking DVT prophylaxis with heparin subcu GI prophylaxis Plan Continue current medications Hemodialysis tomorrow Reinforce education regarding dysphagia diet and aspiration precautions Will Require ongoing speech therapy outpatient. Possible D/C in the next 24 to 48 hours to subacute rehab pending auth. The impression and plan of care has been dictated by Kelly Yanez, Nurse Practitioner as directed. Dr. Estelle MD I have performed a history and physical examination and medical decision making of this patient, discussed the same with the dictator, and agree with the dictators assessment and plan as written, documented as a scribe. Based on total visit time, I have performed more than 50% of this visit. Objective - Vital Signs Vital signs: Vital Signs Temp 98.3 F 08/02/22 14:10 Pulse 76 08/02/22 14:10 Resp 16 08/02/22 14:10 BP 117/72 08/02/22 14:10 Pulse Ox 99 08/02/22 14:10 FiO2 Intake & Output 08/01/22 08/02/22 08/02/22 18:59 06:59 18:59 Intake Total 300 Output Total 1500 Balance -1200 Intake: Hemodialysis 300 Output: Hemodialysis 1500 Other: Voiding Method Toilet # Voids 0 1 - Labs CBC & Chem 7: 08/01/22 05:14 08/01/22 05:14 Assessment and Plan Time with Patient: Less than 30
[2022-08-03] MEDS: PANTOPRAZOLE 40 MG TABLET PO SCH (07:03)
[2022-08-03] MEDS: CALCIUM ACETATE 667 MG TAB PO SCH ×3 (07:03→16:43)
[2022-08-03] MEDS: SEVELAMER 800 MG TAB PO SCH ×3 (07:03→16:43)
[2022-08-03] MEDS: CLOPIDOGREL 75 MG TAB PO SCH (08:47)
[2022-08-03] MEDS: DIVALPROEX SPRINKLE 125 MG CAP.SPRINK PO SCH ×3 (08:47→21:20)
[2022-08-03] MEDS: amLODIPine 5 MG TAB PO SCH ×2 (08:48→20:16)
[2022-08-03] MEDS: METOPROLOL TARTRATE 25 MG TAB PO SCH ×2 (08:48→20:16)
[2022-08-03] MEDS: ATORVASTATIN 40 MG TAB PO SCH (08:48)
[2022-08-03] MEDS: HEPARIN SODIUM,PORCINE/PF 5,000 UNIT/0.5 ML SYRINGE SQ SCH ×2 (08:49→20:16)
[2022-08-03] MEDS: ZONISAMIDE 100 MG CAP PO SCH (08:49)
[2022-08-03] MEDS: levETIRAcetam 500 MG TAB PO SCH ×3 (08:50→20:16)
--- NOTE | 2022-08-03 09:42 | P.PN ---
Subjective Progress Note Date: 08/02/22 Patient was seen for a follow-up. Patient has been seen numerous times in the hospital with previous admissions. On this admission, patient initially seen by Dr. Cristhian Luevano. Please refer to his note for details. Patient has history of seizure disorder. She was discharged, but then readmitted for lethargy and confusion. Her seizures are controlled. No seizures reported since arrival to the hospital. Objective - Vital Signs Vital signs: Vital Signs Temp 98.3 F 08/02/22 14:10 Pulse 76 08/02/22 14:10 Resp 16 08/02/22 14:10 BP 117/72 08/02/22 14:10 Pulse Ox 99 08/02/22 14:10 FiO2 Intake & Output 08/01/22 08/02/22 08/02/22 18:59 06:59 18:59 Intake Total 300 Output Total 1500 Balance -1200 Intake: Hemodialysis 300 Output: Hemodialysis 1500 Other: Voiding Method Toilet # Voids 0 1 - Exam Patient is alert and awake, slow mentation. However better than previous admission. On muscle strength testing (right/left) deltoid 5/4+, biceps 5/5, triceps 5/5, rn concurrent review 5/4+, hip flexion 4+5-/0, ankle dorsiflexion 5/0. Patient has bilateral Babinski. - Labs CBC & Chem 7: 08/01/22 05:14 08/01/22 05:14 Assessment and Plan Assessment: This is a 53-year-old woman with history of medical refractory epilepsy was recently discharged from our facility on 07/27/2022 because of clinical status epilepticus who presented to the back to our facility from nursing facility because of lethargy. 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 She was found lethargic and I'll not sure if the patient had a seizure/post ictal state. She has been stable in our facility and no further seizures for the past two days. * History of epilepsy and she had a prolonged EEG in our facility which was suggestive of primary generalized epilepsy * Left ICA stenosis of 75% on CTA but discrepancy on the carotid duplex and not significant * History of stroke with residual left hemiparesis * Dabetes mellitus * End-stage renal disease on dialysis * Hypertension Plan: * She had multiple EEGs in a prolonged to a half hour EEG in our facility. There is no need for a repeat EEG if clinically she is improving. * Patient currently on Zonegran 100 mg once a day. If patient has any breakthrough seizures, would increase Zonegran to 100 mg twice a day. * Continue Keppra 500 mg 1 tablet every 12 hours with additional 500 mg after dialysis. * Continue Depakote 500 mg 1 tablet 3 times a day. On just the recent and prior admission patient was on these medication and had no seizures for days prior to discharge. Her Depakote level currently is 111.9 (considered high normal). * Patient is off Vimpat. * Placed on seizure precautions seizure pads * I highly recommend the patient to follow-up with an epileptilogist as outpat ient for her medical refractory epilepsy. She had multiple admission to our [facility] as well is to another local facility and her seizures needs to be seen by a specialist as an outpatient. Dr. Luevano recommended Epidiolex since has medical refractory epilepsy * Nephrology is consulted * Speech therapy is consulted * Defer the rest of the medical management to the primary team. * Neurologically clear.
[2022-08-03] MEDS: LACOSAMIDE 50 MG TABLET PO SCH ×2 (10:40→20:16)
[2022-08-03 11:15] VITALS: BMI 20.3
--- NOTE | 2022-08-03 11:20 | P.PN ---
Subjective Patient is seen in follow-up for end-stage renal disease. Tolerating dialysis well. Tolerating dysphagia 3 diet. Hemodynamically stable. No changes overnight. Wants to go home. Vital signs are stable. General: Awake. No acute distress. HEENT: Head exam is unremarkable. LUNGS: Breath sounds decreased. HEART: Rate and Rhythm are regular. ABDOMEN: Soft, no distention. EXTREMITITES: No edema. Objective - Vital Signs Vital signs: Vital Signs Temp 96.1 F L 08/03/22 07:11 Pulse 70 08/03/22 07:11 Resp 17 08/03/22 07:11 BP 129/63 08/03/22 07:11 Pulse Ox 98 08/03/22 07:11 FiO2 21 08/02/22 20:35 Intake & Output 08/02/22 08/03/22 08/03/22 18:59 06:59 18:59 Weight 55.5 kg 55.5 kg Other: Voiding Method Toilet # Voids 2 - Labs CBC & Chem 7: 08/01/22 05:14 08/01/22 05:14 Assessment and Plan Plan: Assessment: 1. End-stage renal disease maintained on hemodialysis on Monday schedule. 2. Hypertension with chronic kidney disease. Controlled. 3. History of seizures. 4. Chronic kidney disease mineral bone disease maintained on PhosLo and Renvela. Phosphorus level 5.0 dated 08/01/2022. 5. Metabolic acidosis secondary to chronic kidney disease and missed dialysis treatment. Better. Plan: Currently seen while undergoing hemodialysis. Next treatment on Monday.
--- NOTE | 2022-08-03 15:15 | P.PN ---
Subjective Progress Note Date: 08/03/22 Patient is a 52-year-old female with a known history of ESRD on hemodialysis, seizure disorder with status epilepticus during recent admission and was discharged to [facility] on 07/27/2022, hypothyroidism, hypertension, hyperlipidemia, diabetes type 2, history of CVA/TIA and history of left foot drop, bipolar diso rder and prior history of smoking was sent back from half-way. Patient was discharged on 07/27/2022. Patient was found to be progressively lethargic as noted by the half-way staff, patient was tested positive at the half-way this morning however COVID-19 PCR was negative currently. Possible aspiration was also suspected as per half-way staff. Patient had a swallow study recently and was able to tolerate dysphagia diet with aspiration precautions. Patient was afebrile on admission. Pulse ox 96% on room air. Chest x-ray showed right perihilar patchy opacities which may represent infiltrative versus atelectasis. EKG showed sinus rhythm Laboratory data showed WBC 6.4 hemoglobin 12.3, platelets 179 Sodium 136 potassium 4.5 chloride 100 bicarb is 24 BUN 35 and creatinine 9.62 an d blood sugar is 106 UDS negative and influenza A, B, RSV and SARS-CoV-2 not detected. 07/30/2022 Patient is lying in bed. Awake alert and oriented. Slow to respond. No further episodes of seizures. No complaints of chest pain or worsening shortness of breath. Denies any complaints of cough or sputum production. No nausea vomiting abdominal pain or diarrhea Laboratory reviewed. Procalcitonin level is 0.33. Sodium 139 potassium 4.9 chloride 106 bicarb is 20 BUN 45 creatinine 10.3. Patient is undergoing hemodialysis today. Nephrology and neurology is on board. 07/31/2022 Patient is currently resting in the bed. Awake alert and oriented x3. Slow to respond. No complaints of chest pain or worsening shortness of breath. Patient has been afebrile overnight. No further episodes of seizures. Patient is being on dysphagia diet. Patient did have episode of choking today afternoon while eating. Remained stable at this time. Denies any complaints of worsening chest pain or shortness of breath. Patient has been afebrile. Follow-up repeat chest x-ray tomorrow. Nephrology neurology on board. Plans for discharge back to facility in the next 24 to 48 hours. 08/01/2021 Patient is evaluated today resting in bed, currently receiving hemodialysis. She has been maintained on dysphagia diet with 1:1 supervision. She reports tolerating diet. No acute events overnight, no further seizure like activity. Neurology recommending for patient to follow up with epilepsy specialist on discharge. Currently she is refusing D/C to subacute rehab. She would like to discharge home and states her will be able to provide care. Physical therapy evaluation pending at this time. She has not been ambulatory. 08/02/2022 Patient is resting in bed. She has been evaluated by PT/OT today and recommendations for subacute rehab she is willing to go to rehab now. unable to provide care for her at home at this time. She is maintained on dialysis scheduled of Mon/Mon/Fri and will undergo hemodialysis tomorrow. Continues with aspiration precautions sitting upright with dysphagia chopped diet and nectar thick liquids. Labs and vitals stable. Pending authorization for DC to rehab. 08/03/2022 Patient evaluated today during hemodialysis. No acute events overnight. Making progress with physical therapy was able to sit on edge of bed unassisted. She is continuing to make progress and is agreeable to continuing therapy. Additionally has been re-evaluated by speech therapy today and is able to tolerate free water. Continues with aspiration precautions and close monitoring with meal intake. She continues on MWF hemodialysis scheduled. Resumed on all oral antiseizure medications. Patient is agreeable for D/C to rehab and pending return to [facility] otherwise medically stable. Review of Systems Constitutional: Denied any fatigue denied any fever. Cardio vascular: denied any chest pain, palpitations Gastrointestinal: denied any nausea, vomiting, diarrhea Pulmonary: Denied any shortness of breath cough Neurologic denied any new focal deficits All inpatient medications were reviewed and appropriate changes in these medications as dictated in the interval history and assessment and plan. PHYSICAL EXAMINATION: GENERAL: The patient is alert and oriented x3, not in any acute distress. Well developed, well nourished. HEENT: Pupils are round and equally reacting to light. EOMI. No scleral icterus. No conjunctival pallor. Normocephalic, atraumatic. No pharyngeal erythema. No thyromegaly. CARDIOVASCULAR: S1 and S2 present. No murmurs, rubs, or gallops. PULMONARY: Chest is clear to auscultation, no wheezing or crackles. ABDOMEN: Soft, nontender, nondistended, normoactive bowel sounds. No palpable organomegaly. MUSCULOSKELETAL: No joint swelling or deformity. EXTREMITIES: No cyanosis, clubbing, or pedal edema. NEUROLOGICAL: Slurred speech, diffuse generalized weakness SKIN: No rashes. Assessment and Plan Assessment RT. perihilar pacities possible atelectasis versus pneumonia. COVID-19 PCR not detected. Procalcitonin level 0.33. Follow up chest xray shows clearing of opacities and no white count. Pneumonia ruled out likely representing atelectasis. Missed Hemodialysis ESRD on hemodialysis Monday and Monday Recent admission with status epilepticus. We will continue with antiepileptic drugs as per recent admission. Dysphagia diet with aspiration precautions as per most recent swallow study. Left ICA 75% stenosis at the origin as per CTA neck. Hypodensity in the brainstem and left basal ganglia related to previous CVA History of CVA with left-sided weakness Diabetes type 2 Peripheral neuropathy Memory impairment GERD Hypertension Hyperlipidemia Hypothyroidism Bipolar disorder Prior history of smoking DVT prophylaxis with heparin subcu GI prophylaxis Plan Continue current medications Continue PT/OT and speech therapy Resumed on oral vimpat had not been resumed after D/C IV dosing. Hemodialysis Monday Reinforce education regarding dysphagia diet and aspiration precautions Cleared for free water intake with guidelines Possible D/C in the next 24 to 48 hours return to [facility] pending acceptance and insurance Medically stable for D/C. The impression and plan of care has been dictated by Kelly Yanez Nurse Practitioner as directed. Dr. Estelle MD I have performed a history and physical examination and medical decision making of this patient, discussed the same with the dictator, and agree with the dictators assessment and plan as written, documented as a scribe. Based on total visit time, I have performed more than 50% of this visit. Objective - Vital Signs Vital signs: Vital Signs Temp 96.1 F L 08/03/22 07:11 Pulse 70 08/03/22 07:11 Resp 17 08/03/22 07:11 BP 129/63 08/03/22 07:11 Pulse Ox 98 08/03/22 07:11 FiO2 21 08/02/22 20:35 Intake & Output 08/02/22 08/03/22 08/03/22 18:59 06:59 18:59 Weight 55.5 kg 55.5 kg Other: Voiding Method Toilet # Voids 2 - Labs CBC & Chem 7: 08/01/22 05:14 08/01/22 05:14 Assessment and Plan Time with Patient: Less than 30
[2022-08-03 21:21] LABS: Glucose,Whole Blood 163 mg/dL (70-110)
[2022-08-04 06:43] LABS: Glucose,Whole Blood 115 mg/dL (70-110)
[2022-08-04] MEDS: PANTOPRAZOLE 40 MG TABLET PO SCH (07:48)
[2022-08-04] MEDS: CALCIUM ACETATE 667 MG TAB PO SCH ×3 (07:48→17:10)
[2022-08-04] MEDS: SEVELAMER 800 MG TAB PO SCH ×3 (07:48→17:10)
[2022-08-04] MEDS: DIVALPROEX SPRINKLE 125 MG CAP.SPRINK PO SCH ×3 (07:49→20:57)
[2022-08-04] MEDS: METOPROLOL TARTRATE 25 MG TAB PO SCH ×2 (07:49→20:56)
[2022-08-04] MEDS: ATORVASTATIN 40 MG TAB PO SCH (07:49)
[2022-08-04] MEDS: LACOSAMIDE 50 MG TABLET PO SCH (07:49)
[2022-08-04] MEDS: amLODIPine 5 MG TAB PO SCH ×2 (07:49→20:57)
[2022-08-04] MEDS: ZONISAMIDE 100 MG CAP PO SCH (07:49)
[2022-08-04] MEDS: HEPARIN SODIUM,PORCINE/PF 5,000 UNIT/0.5 ML SYRINGE SQ SCH ×2 (07:49→20:56)
[2022-08-04] MEDS: levETIRAcetam 500 MG TAB PO SCH ×2 (07:49→20:57)
[2022-08-04] MEDS: CLOPIDOGREL 75 MG TAB PO SCH (07:49)
[2022-08-04 11:26] LABS: Glucose,Whole Blood 157 mg/dL (70-110)
--- NOTE | 2022-08-04 11:36 | P.PN ---
Subjective Patient is seen in follow-up for end-stage renal disease. No problems with dialysis yesterday. Tolerating dysphagia 3 diet. Hemodynamically stable. No changes overnight. Always discharged to rehab. Vital signs are stable. General: Awake. No acute distress. HEENT: Head exam is unremarkable. LUNGS: Breath sounds decreased. HEART: Rate and Rhythm are regular. ABDOMEN: Soft, no distention. EXTREMITITES: No edema. Objective - Vital Signs Vital signs: Vital Signs Temp 96.9 F L 08/04/22 07:45 Pulse 76 08/04/22 07:45 Resp 15 08/04/22 07:45 BP 131/86 08/04/22 07:45 Pulse Ox 96 08/04/22 08:49 FiO2 21 08/02/22 20:35 Intake & Output 08/03/22 08/04/22 08/04/22 18:59 06:59 18:59 Intake Total 300 240 Output Total 1999 Balance -1700 240 Weight 55.5 kg Intake: Oral 240 Hemodialysis 300 Output: Hemodialysis 1999 Other: Voiding Method Toilet Diaper Diaper Incontinent Incontinent # Voids 1 2 # Bowel Movements 1 - Labs CBC & Chem 7: 08/01/22 05:14 08/01/22 05:14 Labs: Abnormal Lab Results - Last 24 Hours (Table) 07/31/22 08/03/22 08/04/22 Range/Units 05:29 21:19 06:41 POC Glucose (mg/dL) 163 H 115 H (70-110) mg/dL Free Valproic Acid 65.9 H (4.8-17.3) mg/L 08/04/22 Range/Units 11:24 POC Glucose (mg/dL) 157 H (70-110) mg/dL Free Valproic Acid (4.8-17.3) mg/L Assessment and Plan Plan: Assessment: 1. End-stage renal disease maintained on hemodialysis on Monday schedule. 2. Hypertension with chronic kidney disease. Controlled. 3. History of seizures. 4. Chronic kidney disease mineral bone disease maintained on PhosLo and Renvela. Phosphorus level 5.0 dated 08/01/2022. 5. Metabolic acidosis secondary to chronic kidney disease and missed dialysis treatment. Better. 6. Anemia of chronic kidney disease. Plan: Hemodialysis tomorrow. Check iron studies. Add Aranesp. Awaits discharged to ECF.
[2022-08-04] MEDS ORDERED: DARBEPOETIN ALFA 40 MCG/0.4 ML SYRINGE SQ SCH (12:00)
--- NOTE | 2022-08-04 14:14 | P.PN ---
Subjective Progress Note Date: 08/04/22 Patient is a 52-year-old female with a known history of ESRD on hemodialysis, seizure disorder with status epilepticus during recent admission and was discharged to [facility] on 07/27/2022, hypothyroidism, hypertension, hyperlipidemia, diabetes type 2, history of CVA/TIA and history of left foot drop, bipolar diso rder and prior history of smoking was sent back from halfway. Patient was discharged on 07/27/2022. Patient was found to be progressively lethargic as noted by the halfway staff, patient was tested positive at the halfway this morning however COVID-19 PCR was negative currently. Possible aspiration was also suspected as per halfway staff. Patient had a swallow study recently and was able to tolerate dysphagia diet with aspiration precautions. Patient was afebrile on admission. Pulse ox 96% on room air. Chest x-ray showed right perihilar patchy opacities which may represent infiltrative versus atelectasis. EKG showed sinus rhythm Laboratory data showed WBC 6.4 hemoglobin 12.3, platelets 179 Sodium 136 potassium 4.5 chloride 100 bicarb is 24 BUN 35 and creatinine 9.62 an d blood sugar is 106 UDS negative and influenza A, B, RSV and SARS-CoV-2 not detected. 07/30/2022 Patient is lying in bed. Awake alert and oriented. Slow to respond. No further episodes of seizures. No complaints of chest pain or worsening shortness of breath. Denies any complaints of cough or sputum production. No nausea vomiting abdominal pain or diarrhea Laboratory reviewed. Procalcitonin level is 0.33. Sodium 139 potassium 4.9 chloride 106 bicarb is 20 BUN 45 creatinine 10.3. Patient is undergoing hemodialysis today. Nephrology and neurology is on board. 07/31/2022 Patient is currently resting in the bed. Awake alert and oriented x3. Slow to respond. No complaints of chest pain or worsening shortness of breath. Patient has been afebrile overnight. No further episodes of seizures. Patient is being on dysphagia diet. Patient did have episode of choking today afternoon while eating. Remained stable at this time. Denies any complaints of worsening chest pain or shortness of breath. Patient has been afebrile. Follow-up repeat chest x-ray tomorrow. Nephrology neurology on board. Plans for discharge back to facility in the next 24 to 48 hours. 08/01/2021 Patient is evaluated today resting in bed, currently receiving hemodialysis. She has been maintained on dysphagia diet with 1:1 supervision. She reports tolerating diet. No acute events overnight, no further seizure like activity. Neurology recommending for patient to follow up with epilepsy specialist on discharge. Currently she is refusing D/C to subacute rehab. She would like to discharge home and states her will be able to provide care. Physical therapy evaluation pending at this time. She has not been ambulatory. 08/02/2022 Patient is resting in bed. She has been evaluated by PT/OT today and recommendations for subacute rehab she is willing to go to rehab now. unable to provide care for her at home at this time. She is maintained on dialysis scheduled of Mon/Mon/Fri and will undergo hemodialysis tomorrow. Continues with aspiration precautions sitting upright with dysphagia chopped diet and nectar thick liquids. Labs and vitals stable. Pending authorization for DC to rehab. 08/03/2022 Patient evaluated today during hemodialysis. No acute events overnight. Making progress with physical therapy was able to sit on edge of bed unassisted. She is continuing to make progress and is agreeable to continuing therapy. Additionally has been re-evaluated by speech therapy today and is able to tolerate free water. Continues with aspiration precautions and close monitoring with meal intake. She continues on MWF hemodialysis scheduled. Resumed on all oral antiseizure medications. Patient is agreeable for D/C to rehab and pending return to [facility] otherwise medically stable. 08/04/2022 Patient is currently pending placement and insurance auth approval for discharge to subacute rehab. Continues on oral anti seizure medications. Making improvements with PT/OT and speech therapy. Was up in the chair today. Able to tolerate free water. Alert x 3. Patient will have hemodialysis tomorrow per MWF schedule. Nephrology continues to follow. Blood pressure 102/67 today, afebrile, heart rate 78, on room air. Review of Systems Constitutional: Denied any fatigue denied any fever. Cardio vascular: denied any chest pain, palpitations Gastrointestinal: denied any nausea, vomiting, diarrhea Pulmonary: Denied any shortness of breath cough Neurologic denied any new focal deficits All inpatient medications were reviewed and appropriate changes in these medications as dictated in the interval history and assessment and plan. PHYSICAL EXAMINATION: GENERAL: The patient is alert and oriented x3, not in any acute distress. Well developed, well nourished. HEENT: Pupils are round and equally reacting to light. EOMI. No scleral icterus. No conjunctival pallor. Normocephalic, atraumatic. No pharyngeal erythema. No thyromegaly. CARDIOVASCULAR: S1 and S2 present. No murmurs, rubs, or gallops. PULMONARY: Chest is clear to auscultation, no wheezing or crackles. ABDOMEN: Soft, nontender, nondistended, normoactive bowel sounds. No palpable organomegaly. MUSCULOSKELETAL: No joint swelling or deformity. EXTREMITIES: No cyanosis, clubbing, or pedal edema. NEUROLOGICAL: Slurred speech, diffuse generalized weakness SKIN: No rashes. Assessment and Plan Assessment RT. perihilar pacities possible atelectasis versus pneumonia. COVID-19 PCR not detected. Procalcitonin level 0.33. Follow up chest xray shows clearing of opacities and no white count. Pneumonia ruled out likely representing atelectasis. Missed Hemodialysis ESRD on hemodialysis Monday and Monday Recent admission with status epilepticus. We will continue with antiepileptic drugs as per recent admission. Dysphagia diet with aspiration precautions as per most recent swallow study. Left ICA 75% stenosis at the origin as per CTA neck. Hypodensity in the brainstem and left basal ganglia related to previous CVA History of CVA with left-sided weakness Diabetes type 2 Peripheral neuropathy Memory impairment GERD Hypertension Hyperlipidemia Hypothyroidism Bipolar disorder Prior history of smoking DVT prophylaxis with heparin subcu GI prophylaxis Plan Continue current medications Continue PT/OT and speech therapy Resumed on oral vimpat had not been resumed after D/C IV dosing. Hemodialysis Monday Reinforce education regarding dysphagia diet and aspiration precautions Cleared for free water intake with guidelines Medically stable for DC pending accepting facility and insurance authorization The impression and plan of care has been dictated by Kelly Yanez, Nurse Practitioner as directed. Dr. Estelle MD I have performed a history and physical examination and medical decision making of this patient, discussed the same with the dictator, and agree with the dictators assessment and plan as written, documented as a scribe. Based on total visit time, I have performed more than 50% of this visit. Objective - Vital Signs Vital signs: Vital Signs Temp 97.8 F 08/04/22 13:18 Pulse 78 08/04/22 13:18 Resp 17 08/04/22 13:18 BP 102/67 08/04/22 13:18 Pulse Ox 96 08/04/22 08:49 FiO2 21 08/02/22 20:35 Intake & Output 08/03/22 08/04/22 08/04/22 18:59 06:59 18:59 Intake Total 300 240 Output Total 1999 Balance -1700 240 Weight 55.5 kg Intake: Oral 240 Hemodialysis 300 Output: Hemodialysis 1999 Other: Voiding Method Toilet Diaper Diaper Incontinent Incontinent # Voids 1 2 # Bowel Movements 1 - Labs CBC & Chem 7: 08/01/22 05:14 08/01/22 05:14 Labs: Abnormal Lab Results - Last 24 Hours (Table) 07/31/22 08/03/22 08/04/22 Range/Units 05:29 21:19 06:41 POC Glucose (mg/dL) 163 H 115 H (70-110) mg/dL Free Valproic Acid 65.9 H (4.8-17.3) mg/L 08/04/22 Range/Units 11:24 POC Glucose (mg/dL) 157 H (70-110) mg/dL Free Valproic Acid (4.8-17.3) mg/L
[2022-08-04 16:24] LABS: % Iron Saturation 60.91 (12.00-45.00)
[2022-08-04 16:45] LABS: Glucose,Whole Blood 145 mg/dL (70-110)
[2022-08-04 20:23] LABS: Glucose,Whole Blood 203 mg/dL (70-110)
[2022-08-05 06:17] LABS: Glucose,Whole Blood 87 mg/dL (70-110)
[2022-08-05] MEDS: PANTOPRAZOLE 40 MG TABLET PO SCH (06:36)
[2022-08-05] MEDS: CALCIUM ACETATE 667 MG TAB PO SCH ×3 (06:36→17:04)
[2022-08-05] MEDS: SEVELAMER 800 MG TAB PO SCH ×3 (06:37→17:04)
[2022-08-05] MEDS: ATORVASTATIN 40 MG TAB PO SCH (08:17)
[2022-08-05] MEDS: amLODIPine 5 MG TAB PO SCH ×2 (08:17→20:18)
[2022-08-05] MEDS: DIVALPROEX SPRINKLE 125 MG CAP.SPRINK PO SCH ×3 (08:18→20:23)
[2022-08-05] MEDS: METOPROLOL TARTRATE 25 MG TAB PO SCH ×2 (08:18→20:18)
[2022-08-05] MEDS: CLOPIDOGREL 75 MG TAB PO SCH (08:18)
[2022-08-05] MEDS: ZONISAMIDE 100 MG CAP PO SCH (08:18)
[2022-08-05] MEDS: HEPARIN SODIUM,PORCINE/PF 5,000 UNIT/0.5 ML SYRINGE SQ SCH ×2 (08:18→20:18)
[2022-08-05] MEDS: levETIRAcetam 500 MG TAB PO SCH ×3 (08:18→20:23)
[2022-08-05 10:07] LABS: African American GFR (CKD) 6 (>60 ml/min/1.73 sqM); Anion Gap 6 mmol/L; Blood Urea Nitrogen 28 mg/dL (7-17); Calcium 9.5 mg/dL (8.4-10.2); Carbon Dioxide 26 mmol/L (22-30); Chloride 100 mmol/L (98-107); Glucose 139 mg/dL (74-99); Non-African American GFR(CKD) 5 (>60 ml/min/1.73 sqM); Potassium 4.2 mmol/L (3.5-5.1); Sodium 132 mmol/L (137-145)
--- NOTE | 2022-08-05 10:45 | P.PN ---
Subjective Progress Note Date: 08/04/22 Patient was seen for a follow-up. Patient has been seen numerous times in the hospital with previous admissions. On this admission, patient initially seen by Dr. Cristhian Luevano. Please refer to his note for details. Patient has history of seizure disorder. She was discharged, but then readmitted for lethargy and confusion. Her seizures are controlled. No seizures reported since arrival to the hospital. Objective - Vital Signs Vital signs: Vital Signs Temp 97.8 F 08/04/22 13:18 Pulse 78 08/04/22 13:18 Resp 17 08/04/22 13:18 BP 102/67 08/04/22 13:18 Pulse Ox 96 08/04/22 08:49 FiO2 21 08/02/22 20:35 Intake & Output 08/04/22 08/04/22 08/05/22 06:59 18:59 06:59 Intake Total 240 100 Balance 240 100 Weight 72 kg Intake: Oral 240 100 Other: Voiding Method Diaper Diaper Incontinent Incontinent # Voids 2 # Bowel Movements 2 - Exam Patient is alert and awake, slow mentation. However better than previous admission. On muscle strength testing (right/left) deltoid 5/4+, biceps 5/5, triceps 5/5, aemt 5/4+, hip flexion 4+5-/0, ankle dorsiflexion 5/0. Patient has bilateral Babinski. - Labs CBC & Chem 7: 08/01/22 05:14 08/01/22 05:14 Labs: Abnormal Lab Results - Last 24 Hours (Table) 07/31/22 08/01/22 08/03/22 Range/Units 05:29 05:14 21:19 POC Glucose (mg/dL) 163 H (70-110) mg/dL TIBC 181 L (228-460) ug/dL % Saturation 60.91 H (12.00-45.00) Transferrin 129.0 L (204.0-354.0) mg/dL Ferritin 2270.0 H (10.0-291.0) ng/mL Free Valproic Acid 65.9 H (4.8-17.3) mg/L 08/04/22 08/04/22 08/04/22 Range/Units 06:41 11:24 16:44 POC Glucose (mg/dL) 115 H 157 H 145 H (70-110) mg/dL TIBC (228-460) ug/dL % Saturation (12.00-45.00) Transferrin (204.0-354.0) mg/dL Ferritin (10.0-291.0) ng/mL Free Valproic Acid (4.8-17.3) mg/L Assessment and Plan Assessment: This is a 53-year-old woman with history of medically refractory epilepsy was recently discharged from our facility on 07/27/2022 because of clinical status epilepticus who presented to our facility from nursing facility because of lethargy. 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 She was found lethargic and I'll not sure if the patient had a seizure/post ictal state. She has been stable in our facility and no further seizures for the past two days. * History of epilepsy and she had a prolonged EEG in our facility which was suggestive of primary generalized epilepsy * Left ICA stenosis of 75% on CTA but discrepancy on the carotid duplex and not significant * History of stroke with residual left hemiparesis * Dabetes mellitus * End-stage renal disease on dialysis * Hypertension Plan: * She had multiple EEGs in a prolonged to a half hour EEG in our facility. There is no need for a repeat EEG if clinically she is improving. * Patient currently on Zonegran 100 mg once a day. If patient has any breakthrough seizures, would increase Zonegran to 100 mg twice a day. * Continue Keppra 500 mg 1 tablet every 12 hours with additional 500 mg after dialysis. * Continue Depakote 500 mg 1 tablet 3 times a day. On just the recent and prior admission patient was on these medication and had no seizures for days prior to discharge. Her Depakote level currently is 111.9 (considered high normal). * Patient is off Vimpat. * Placed on seizure precautions seizure pads * I highly recommend the patient to follow-up with an epileptilogist as outpatient for her medical refractory epilepsy. She had multiple admission to our [facility] as well is to another local facility and her seizures needs to be seen by a specialist as an outpatient. Dr. Luevano recommended Epidiolex since has medical refractory epilepsy * Nephrology is consulted * Speech therapy is consulted * Defer the rest of the medical management to the primary team. * Neurologically clear.
--- NOTE | 2022-08-05 11:13 | P.PN ---
Subjective Patient is seen in follow-up for end-stage renal disease. Tolerating dialysis well. Tolerating dysphagia 3 diet. Hemodynamically stable. No changes overnight. A weights discharge to rehab. Vital signs are stable. General: Awake. No acute distress. HEENT: Head exam is unremarkable. LUNGS: Breath sounds decreased. HEART: Rate and Rhythm are regular. ABDOMEN: Soft, no distention. EXTREMITITES: No edema. Objective - Vital Signs Vital signs: Vital Signs Temp 97.3 F L 08/05/22 07:33 Pulse 68 08/05/22 07:33 Resp 18 08/05/22 07:33 BP 148/81 08/05/22 07:33 Pulse Ox 94 L 08/05/22 08:52 FiO2 21 08/02/22 20:35 Intake & Output 08/04/22 08/05/22 08/05/22 18:59 06:59 18:59 Intake Total 100 Balance 100 Weight 73 kg Intake: Oral 100 Other: Voiding Method Diaper Diaper Diaper Incontinent Incontinent Incontinent # Bowel Movements 2 1 1 - Labs CBC & Chem 7: 08/01/22 05:14 08/05/22 09:30 Labs: Abnormal Lab Results - Last 24 Hours (Table) 08/01/22 08/04/22 08/04/22 Range/Units 05:14 11:24 16:44 Sodium (137-145) mmol/L BUN (7-17) mg/dL Creatinine (0.52-1.04) mg/dL Glucose (74-99) mg/dL POC Glucose (mg/dL) 157 H 145 H (70-110) mg/dL TIBC 181 L (228-460) ug/dL % Saturation 60.91 H (12.00-45.00) Transferrin 129.0 L (204.0-354.0) mg/dL Ferritin 2270.0 H (10.0-291.0) ng/mL 08/04/22 08/05/22 Range/Units 20:21 09:30 Sodium 132 L (137-145) mmol/L BUN 28 H (7-17) mg/dL Creatinine 7.94 H* (0.52-1.04) mg/dL Glucose 139 H (74-99) mg/dL POC Glucose (mg/dL) 203 H (70-110) mg/dL TIBC (228-460) ug/dL % Saturation (12.00-45.00) Transferrin (204.0-354.0) mg/dL Ferritin (10.0-291.0) ng/mL Assessment and Plan Plan: Assessment: 1. End-stage renal disease maintained on hemodialysis on Monday schedule. 2. Hypertension with chronic kidney disease. Controlled. 3. History of seizures. 4. Chronic kidney disease mineral bone disease maintained on PhosLo and Renvela. Phosphorus level 5.0 dated 08/01/2022. 5. Metabolic acidosis secondary to chronic kidney disease and missed dialysis treatment. Better. 6. Anemia of chronic kidney disease. On Aranesp. Iron replete. Plan: Currently seen while undergoing hemodialysis. Neck she made on Monday. [facility]
[2022-08-05 11:48] LABS: Glucose,Whole Blood 113 mg/dL (70-110)
--- NOTE | 2022-08-05 16:11 | P.PN ---
Subjective Progress Note Date: 08/05/22 Patient is a 52-year-old female with a known history of ESRD on hemodialysis, seizure disorder with status epilepticus during recent admission and was discharged to [facility] on 07/27/2022, hypothyroidism, hypertension, hyperlipidemia, diabetes type 2, history of CVA/TIA and history of left foot drop, bipolar diso rder and prior history of smoking was sent back from long term. Patient was discharged on 07/27/2022. Patient was found to be progressively lethargic as noted by the long term staff, patient was tested positive at the long term this morning however COVID-19 PCR was negative currently. Possible aspiration was also suspected as per long term staff. Patient had a swallow study recently and was able to tolerate dysphagia diet with aspiration precautions. Patient was afebrile on admission. Pulse ox 96% on room air. Chest x-ray showed right perihilar patchy opacities which may represent infiltrative versus atelectasis. EKG showed sinus rhythm Laboratory data showed WBC 6.4 hemoglobin 12.3, platelets 179 Sodium 136 potassium 4.5 chloride 100 bicarb is 24 BUN 35 and creatinine 9.62 an d blood sugar is 106 UDS negative and influenza A, B, RSV and SARS-CoV-2 not detected. 07/30/2022 Patient is lying in bed. Awake alert and oriented. Slow to respond. No further episodes of seizures. No complaints of chest pain or worsening shortness of breath. Denies any complaints of cough or sputum production. No nausea vomiting abdominal pain or diarrhea Laboratory reviewed. Procalcitonin level is 0.33. Sodium 139 potassium 4.9 chloride 106 bicarb is 20 BUN 45 creatinine 10.3. Patient is undergoing hemodialysis today. Nephrology and neurology is on board. 07/31/2022 Patient is currently resting in the bed. Awake alert and oriented x3. Slow to respond. No complaints of chest pain or worsening shortness of breath. Patient has been afebrile overnight. No further episodes of seizures. Patient is being on dysphagia diet. Patient did have episode of choking today afternoon while eating. Remained stable at this time. Denies any complaints of worsening chest pain or shortness of breath. Patient has been afebrile. Follow-up repeat chest x-ray tomorrow. Nephrology neurology on board. Plans for discharge back to facility in the next 24 to 48 hours. 08/01/2021 Patient is evaluated today resting in bed, currently receiving hemodialysis. She has been maintained on dysphagia diet with 1:1 supervision. She reports tolerating diet. No acute events overnight, no further seizure like activity. Neurology recommending for patient to follow up with epilepsy specialist on discharge. Currently she is refusing D/C to subacute rehab. She would like to discharge home and states her will be able to provide care. Physical therapy evaluation pending at this time. She has not been ambulatory. 08/02/2022 Patient is resting in bed. She has been evaluated by PT/OT today and recommendations for subacute rehab she is willing to go to rehab now. unable to provide care for her at home at this time. She is maintained on dialysis scheduled of Mon/Mon/Mon and will undergo hemodialysis tomorrow. Continues with aspiration precautions sitting upright with dysphagia chopped diet and nectar thick liquids. Labs and vitals stable. Pending authorization for DC to rehab. 08/03/2022 Patient evaluated today during hemodialysis. No acute events overnight. Making progress with physical therapy was able to sit on edge of bed unassisted. She is continuing to make progress and is agreeable to continuing therapy. Additionally has been re-evaluated by speech therapy today and is able to tolerate free water. Continues with aspiration precautions and close monitoring with meal intake. She continues on MWF hemodialysis scheduled. Resumed on all oral antiseizure medications. Patient is agreeable for D/C to rehab and pending return to [facility] otherwise medically stable. 08/04/2022 Patient is currently pending placement and insurance auth approval for discharge to subacute rehab. Continues on oral anti seizure medications. Making improvements with PT/OT and speech therapy. Was up in the chair today. Able to tolerate free water. Alert x 3. Patient will have hemodialysis tomorrow per MWF schedule. Nephrology continues to follow. Blood pressure 102/67 today, afebrile, heart rate 78, on room air. Patient is pending insurance authorization and will likely DC to [facility] in [place] on Monday where they have on site hemodialysis. She has been dialyzed today per her usual MWF scheduled. Discussed with neurology and vimpat is discontinued and patient is recommending to continue off of vimpat. She is alert x 3 today and no longer lethargic. No acute events overnight. Afebrile, blood pressure 118/59, heart rate 70, 94% room air. Anticipating discharge. Review of Systems Constitutional: Denied any fatigue denied any fever. Cardio vascular: denied any chest pain, palpitations Gastrointestinal: denied any nausea, vomiting, diarrhea Pulmonary: Denied any shortness of breath cough Neurologic denied any new focal deficits All inpatient medications were reviewed and appropriate changes in these medications as dictated in the interval history and assessment and plan. PHYSICAL EXAMINATION: GENERAL: The patient is alert and oriented x3, not in any acute distress. Well developed, well nourished. HEENT: Pupils are round and equally reacting to light. EOMI. No scleral icterus. No conjunctival pallor. Normocephalic, atraumatic. No pharyngeal erythema. No thyromegaly. CARDIOVASCULAR: S1 and S2 present. No murmurs, rubs, or gallops. PULMONARY: Chest is clear to auscultation, no wheezing or crackles. ABDOMEN: Soft, nontender, nondistended, normoactive bowel sounds. No palpable organomegaly. MUSCULOSKELETAL: No joint swelling or deformity. EXTREMITIES: No cyanosis, clubbing, or pedal edema. NEUROLOGICAL: Slurred speech, diffuse generalized weakness SKIN: No rashes. Assessment and Plan Assessment RT. perihilar pacities possible atelectasis versus pneumonia. COVID-19 PCR not detected. Procalcitonin level 0.33. Follow up chest xray shows clearing of opacities and no white count. Pneumonia ruled out likely representing atelecta sis. ESRD on hemodialysis Monday and Monday Recent admission with status epilepticus. \ Dysphagia diet with aspiration precautions as per most recent swallow study. Left ICA 75% stenosis at the origin as per CTA neck. Hypodensity in the brainstem and left basal ganglia related to previous CVA History of CVA with left-sided weakness Diabetes type 2 Peripheral neuropathy Memory impairment GERD Hypertension Hyperlipidemia Hypothyroidism Bipolar disorder Prior history of smoking DVT prophylaxis with heparin subcu GI prophylaxis Plan Continue current medications Vimpat is discontinued Reinforce education regarding dysphagia diet and aspiration precautions Cleared for free water intake with guidelines Continue hemodialysis MWF Continue PT/OT and speech therapy Medically stable for DC pending insurance authorization The impression and plan of care has been dictated by Kelly Yanez, Nurse Practitioner as directed. Dr. Estelle MD I have performed a history and physical examination and medical decision making of this patient, discussed the same with the dictator, and agree with the dictators assessment and plan as written, documented as a scribe. Based on total visit time, I have performed more than 50% of this visit. Objective - Vital Signs Vital signs: Vital Signs Temp 97.6 F 08/05/22 12:59 Pulse 70 08/05/22 12:59 Resp 19 08/05/22 12:59 BP 118/59 08/05/22 12:59 Pulse Ox 94 L 08/05/22 08:52 FiO2 21 08/02/22 20:35 Intake & Output 08/04/22 08/05/22 08/05/22 18:59 06:59 18:59 Intake Total 100 300 Output Total 2200 Balance 100 -1900 Weight 73 kg Intake: Oral 100 Hemodialysis 300 Output: Hemodialysis 2200 Other: Voiding Method Diaper Diaper Diaper Incontinent Incontinent Incontinent # Bowel Movements 2 1 1 - Labs CBC & Chem 7: 08/01/22 05:14 08/05/22 09:30 Labs: Abnormal Lab Results - Last 24 Hours (Table) 08/01/22 08/04/22 08/04/22 Range/Units 05:14 16:44 20:21 Sodium (137-145) mmol/L BUN (7-17) mg/dL Creatinine (0.52-1.04) mg/dL Glucose (74-99) mg/dL POC Glucose (mg/dL) 145 H 203 H (70-110) mg/dL TIBC 181 L (228-460) ug/dL % Saturation 60.91 H (12.00-45.00) Transferrin 129.0 L (204.0-354.0) mg/dL Ferritin 2270.0 H (10.0-291.0) ng/mL 08/05/22 08/05/22 Range/Units 09:30 11:46 Sodium 132 L (137-145) mmol/L BUN 28 H (7-17) mg/dL Creatinine 7.94 H* (0.52-1.04) mg/dL Glucose 139 H (74-99) mg/dL POC Glucose (mg/dL) 113 H (70-110) mg/dL TIBC (228-460) ug/dL % Saturation (12.00-45.00) Transferrin (204.0-354.0) mg/dL Ferritin (10.0-291.0) ng/mL Assessment and Plan Time with Patient: Less than 30
--- NOTE | 2022-08-05 16:20 | P.PN ---
Subjective Progress Note Date: 08/05/22 Patient was seen for a follow-up. Patient has been seen numerous times in the hospital with previous admissions. On this admission, patient initially seen by Dr. Cristhian Luevano. Please refer to his note for details. Patient has history of seizure disorder. She was discharged, but then readmitted for lethargy and confusion. Her seizures are controlled. Patient get lethargic with Vimpat. This has now finally been discontinued. Per nurse, she is much more alert and awake. No seizures reported since arrival to the hospital. Objective - Vital Signs Vital signs: Vital Signs Temp 97.6 F 08/05/22 12:59 Pulse 70 08/05/22 12:59 Resp 19 08/05/22 12:59 BP 118/59 08/05/22 12:59 Pulse Ox 94 L 08/05/22 08:52 FiO2 21 08/02/22 20:35 Intake & Output 08/04/22 08/05/22 08/05/22 18:59 06:59 18:59 Intake Total 100 300 Output Total 2200 Balance 100 -1900 Weight 73 kg Intake: Oral 100 Hemodialysis 300 Output: Hemodialysis 2200 Other: Voiding Method Diaper Diaper Diaper Incontinent Incontinent Incontinent # Bowel Movements 2 1 1 - Exam Patient is alert and awake, slow mentation. However better than previous admis uriah. Speech is slightly dysarthric. She knows it is July, could not tell the year. She knows it is [facility]. Knows it is a hospital. Patient has right facial droop, but normalizes with active testing. Patient has right homonymous hemianopia. Tongue protrudes the midline. On muscle strength testing (right/left) deltoid 5/4+, biceps 5/5, triceps 5/5, revenue officer 5/4+, hip flexion 4+5-/3 to 3+, ankle dorsiflexion 5/0. Patient has bilateral Babinski. - Labs CBC & Chem 7: 08/01/22 05:14 08/05/22 09:30 Labs: Abnormal Lab Results - Last 24 Hours (Table) 08/01/22 08/04/22 08/04/22 Range/Units 05:14 16:44 20:21 Sodium (137-145) mmol/L BUN (7-17) mg/dL Creatinine (0.52-1.04) mg/dL Glucose (74-99) mg/dL POC Glucose (mg/dL) 145 H 203 H (70-110) mg/dL TIBC 181 L (228-460) ug/dL % Saturation 60.91 H (12.00-45.00) Transferrin 129.0 L (204.0-354.0) mg/dL Ferritin 2270.0 H (10.0-291.0) ng/mL 08/05/22 08/05/22 Range/Units 09:30 11:46 Sodium 132 L (137-145) mmol/L BUN 28 H (7-17) mg/dL Creatinine 7.94 H* (0.52-1.04) mg/dL Glucose 139 H (74-99) mg/dL POC Glucose (mg/dL) 113 H (70-110) mg/dL TIBC (228-460) ug/dL % Saturation (12.00-45.00) Transferrin (204.0-354.0) mg/dL Ferritin (10.0-291.0) ng/mL Assessment and Plan Assessment: This is a 53-year-old woman with history of medically refractory epilepsy was recently discharged from our facility on 07/27/2022 because of clinical status epilepticus who presented to our facility from nursing facility because of lethargy. 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 She was found lethargic and I'll not sure if the patient had a seizure/post ictal state. She has been stable in our facility and no further seizures for the past two days. * History of epilepsy and she had a prolonged EEG in our facility which was suggestive of primary generalized epilepsy * Left ICA stenosis of 75% on CTA but discrepancy on the carotid duplex and not significant * History of stroke with residual left hemiparesis * Dabetes mellitus * End-stage renal disease on dialysis * Hypertension Plan: * She had multiple EEGs in a prolonged to a half hour EEG in our facility. There is no need for a repeat EEG if clinically she is improving. * Patient currently on Zonegran 100 mg once a day. If patient has any breakthrough seizures, would increase Zonegran to 100 mg twice a day. * Continue Keppra 500 mg 1 tablet every 12 hours with additional 500 mg after dialysis. * Continue Depakote 500 mg 1 tablet 3 times a day. On just the recent and prior admission patient was on these medication and had no seizures for days prior to discharge. Her Depakote level currently is 111.9 (considered high normal). * Patient is off Vimpat. * Placed on seizure precautions seizure pads * I highly recommend the patient to follow-up with an epileptilogist as outpatient for her medical refractory epilepsy. She had multiple admission to our [facility] as well is to another local facility and her seizures needs to be seen by a specialist as an outpatient. * Nephrology is consulted * Speech therapy is consulted * Defer the rest of the medical management to the primary team. * Neurologically clear. Awaiting insurance authorization. Neurology will sign off. Please reconsult if any concerns.
[2022-08-05 17:11] LABS: Glucose,Whole Blood 203 mg/dL (70-110)
[2022-08-05 21:13] LABS: Glucose,Whole Blood 232 mg/dL (70-110)
[2022-08-06 06:05] LABS: Glucose,Whole Blood 108 mg/dL (70-110)
[2022-08-06] MEDS: PANTOPRAZOLE 40 MG TABLET PO SCH (06:34)
[2022-08-06] MEDS: CALCIUM ACETATE 667 MG TAB PO SCH ×3 (06:34→16:55)
[2022-08-06] MEDS: SEVELAMER 800 MG TAB PO SCH ×3 (06:34→16:56)
[2022-08-06] MEDS: DIVALPROEX SPRINKLE 125 MG CAP.SPRINK PO SCH ×3 (09:18→19:51)
[2022-08-06] MEDS: HEPARIN SODIUM,PORCINE/PF 5,000 UNIT/0.5 ML SYRINGE SQ SCH ×2 (09:18→19:50)
[2022-08-06] MEDS: levETIRAcetam 500 MG TAB PO SCH ×2 (09:19→19:50)
[2022-08-06] MEDS: ZONISAMIDE 100 MG CAP PO SCH (09:19)
[2022-08-06] MEDS: CLOPIDOGREL 75 MG TAB PO SCH (09:19)
[2022-08-06] MEDS: ATORVASTATIN 40 MG TAB PO SCH (09:19)
[2022-08-06] MEDS: METOPROLOL TARTRATE 25 MG TAB PO SCH ×2 (09:19→19:50)
[2022-08-06] MEDS: amLODIPine 5 MG TAB PO SCH ×2 (09:20→19:50)
[2022-08-06 11:47] LABS: Glucose,Whole Blood 185 mg/dL (70-110)
--- NOTE | 2022-08-06 12:34 | P.PN ---
Subjective Progress Note Date: 08/06/22 Principal diagnosis: Follow-up for ESRD on dialysis Monday admitted with confusion and a history of seizures in the background. Currently she is awake and alert a nd oriented. Comfortable. Denies any complaints. History of present illness: The patient is a 52-year-old female seen in renal consultation for end-stage renal disease. She is making on hemodialysis on Monday schedule. Patient presents from extended care facility due to worsening lethargy noted but the nursing staff. Patient tested positive for coronary at the retirement. There was also concern for aspiration. It is noted in the chart at the patient was coughing when she was fed. Patient has history of seizures and is required multiple hospitalizations for it recently. In the hospital she tested negative for influenza, RSV and covert PCR. No fever. Her white count is not elevated. Chest x-ray from today showed no acute process. Currently resting in bed. Hemodynamically stable. She is on room air. Patient has history of CVA residual hemiparesis and dysarthria. Objective - Vital Signs Vital signs: Vital Signs Temp 97.7 F 08/06/22 09:16 Pulse 71 08/06/22 09:16 Resp 17 08/06/22 09:16 BP 97/60 08/06/22 09:16 Pulse Ox 95 08/06/22 09:16 FiO2 21 08/02/22 20:35 Intake & Output 08/05/22 08/06/22 08/06/22 18:59 06:59 18:59 Intake Total 300 Output Total 2200 Balance -1900 Weight 75.5 kg Intake: Hemodialysis 300 Output: Hemodialysis 2200 Other: Voiding Method Diaper Diaper Diaper Incontinent Incontinent Incontinent # Voids 1 # Bowel Movements 1 5 Examination awake alert oriented No JVP noted neck is supple no facial asymmetry Lungs clear to auscultation good air entry bilaterally Heart sounds unremarkable Abdomen soft nontender Extremity exam was no edema Neurologically awake alert oriented - Labs CBC & Chem 7: 08/01/22 05:14 08/05/22 09:30 Labs: Abnormal Lab Results - Last 24 Hours (Table) 08/05/22 08/05/22 08/06/22 Range/Units 17:10 21:12 11:46 POC Glucose (mg/dL) 203 H 232 H 185 H (70-110) mg/dL Assessment and Plan Assessment: Impression 1. ESRD on dialysis Monday stable 2. Admitted with confusion resolved. 3. History of seizures 4. Anemia of ESRD, hemoglobin is 9.5 on 08/01/2022 improved from 9.2 Recommendation 1. Maintain dialysis schedule Monday neck salicylate be Monday 2. Able discharge from our perspective
--- NOTE | 2022-08-06 13:36 | P.PN ---
Subjective Progress Note Date: 08/06/22 Patient is a 52-year-old female with a known history of ESRD on hemodialysis, seizure disorder with status epilepticus during recent admission and was discharged to [facility] on 07/27/2022, hypothyroidism, hypertension, hyperlipidemia, diabetes type 2, history of CVA/TIA and history of left foot drop, bipolar diso rder and prior history of smoking was sent back from long term. Patient was discharged on 07/27/2022. Patient was found to be progressively lethargic as noted by the long term staff, patient was tested positive at the long term this morning however COVID-19 PCR was negative currently. Possible aspiration was also suspected as per long term staff. Patient had a swallow study recently and was able to tolerate dysphagia diet with aspiration precautions. Patient was afebrile on admission. Pulse ox 96% on room air. Chest x-ray showed right perihilar patchy opacities which may represent infiltrative versus atelectasis. EKG showed sinus rhythm Laboratory data showed WBC 6.4 hemoglobin 12.3, platelets 179 Sodium 136 potassium 4.5 chloride 100 bicarb is 24 BUN 35 and creatinine 9.62 an d blood sugar is 106 UDS negative and influenza A, B, RSV and SARS-CoV-2 not detected. 07/30/2022 Patient is lying in bed. Awake alert and oriented. Slow to respond. No further episodes of seizures. No complaints of chest pain or worsening shortness of breath. Denies any complaints of cough or sputum production. No nausea vomiting abdominal pain or diarrhea Laboratory reviewed. Procalcitonin level is 0.33. Sodium 139 potassium 4.9 chloride 106 bicarb is 20 BUN 45 creatinine 10.3. Patient is undergoing hemodialysis today. Nephrology and neurology is on board. 07/31/2022 Patient is currently resting in the bed. Awake alert and oriented x3. Slow to respond. No complaints of chest pain or worsening shortness of breath. Patient has been afebrile overnight. No further episodes of seizures. Patient is being on dysphagia diet. Patient did have episode of choking today afternoon while eating. Remained stable at this time. Denies any complaints of worsening chest pain or shortness of breath. Patient has been afebrile. Follow-up repeat chest x-ray tomorrow. Nephrology neurology on board. Plans for discharge back to facility in the next 24 to 48 hours. 08/01/2021 Patient is evaluated today resting in bed, currently receiving hemodialysis. She has been maintained on dysphagia diet with 1:1 supervision. She reports tolerating diet. No acute events overnight, no further seizure like activity. Neurology recommending for patient to follow up with epilepsy specialist on discharge. Currently she is refusing D/C to subacute rehab. She would like to discharge home and states her will be able to provide care. Physical therapy evaluation pending at this time. She has not been ambulatory. 08/02/2022 Patient is resting in bed. She has been evaluated by PT/OT today and recommendations for subacute rehab she is willing to go to rehab now. unable to provide care for her at home at this time. She is maintained on dialysis scheduled of Mon/Mon/Mon and will undergo hemodialysis tomorrow. Continues with aspiration precautions sitting upright with dysphagia chopped diet and nectar thick liquids. Labs and vitals stable. Pending authorization for DC to rehab. 08/03/2022 Patient evaluated today during hemodialysis. No acute events overnight. Making progress with physical therapy was able to sit on edge of bed unassisted. She is continuing to make progress and is agreeable to continuing therapy. Additionally has been re-evaluated by speech therapy today and is able to tolerate free water. Continues with aspiration precautions and close monitoring with meal intake. She continues on MWF hemodialysis scheduled. Resumed on all oral antiseizure medications. Patient is agreeable for D/C to rehab and pending return to [facility] otherwise medically stable. 08/04/2022 Patient is currently pending placement and insurance auth approval for discharge to subacute rehab. Continues on oral anti seizure medications. Making improvements with PT/OT and speech therapy. Was up in the chair today. Able to tolerate free water. Alert x 3. Patient will have hemodialysis tomorrow per MWF schedule. Nephrology continues to follow. Blood pressure 102/67 today, afebrile, heart rate 78, on room air. Patient is pending insurance authorization and will likely DC to [facility] in [place] on Monday where they have on site hemodialysis. She has been dialyzed today per her usual MWF scheduled. Discussed with neurology and vimpat is discontinued and patient is recommending to continue off of vimpat. She is alert x 3 today and no longer lethargic. No acute events overnight. Afebrile, blood pressure 118/59, heart rate 70, 94% room air. Anticipating discharge. 08/06/2022 Patient is evaluated on medical floor today. Pending insurance authorization for DC likely on monday. Had hemodialysis yesterday with 2.2L off. No acute events overnight. Monitored off the vimpat. Continues on room air, afebrile. Review of Systems Constitutional: Denied any fatigue denied any fever. Cardio vascular: denied any chest pain, palpitations Gastrointestinal: denied any nausea, vomiting, diarrhea Pulmonary: Denied any shortness of breath cough Neurologic denied any new focal deficits All inpatient medications were reviewed and appropriate changes in these medicat ions as dictated in the interval history and assessment and plan. PHYSICAL EXAMINATION: GENERAL: The patient is alert and oriented x3, not in any acute distress. Well developed, well nourished. HEENT: Pupils are round and equally reacting to light. EOMI. No scleral icterus. No conjunctival pallor. Normocephalic, atraumatic. No pharyngeal erythema. No thyromegaly. CARDIOVASCULAR: S1 and S2 present. No murmurs, rubs, or gallops. PULMONARY: Chest is clear to auscultation, no wheezing or crackles. ABDOMEN: Soft, nontender, nondistended, normoactive bowel sounds. No palpable organomegaly. MUSCULOSKELETAL: No joint swelling or deformity. EXTREMITIES: No cyanosis, clubbing, or pedal edema. NEUROLOGICAL: Slurred speech, diffuse generalized weakness SKIN: No rashes. Assessment and Plan Assessment RT. perihilar pacities possible atelectasis versus pneumonia. COVID-19 PCR not detected. Procalcitonin level 0.33. Follow up chest xray shows clearing of opacities and no white count. Pneumonia ruled out likely representing atelectasis. Monitored off antibiotics. ESRD on hemodialysis Monday and Monday Recent admission with status epilepticus. \ Dysphagia diet with aspiration precautions as per most recent swallow study. Left ICA 75% stenosis at the origin as per CTA neck. Hypodensity in the brainstem and left basal ganglia related to previous CVA History of CVA with left-sided weakness Diabetes type 2 Peripheral neuropathy Memory impairment GERD Hypertension Hyperlipidemia Hypothyroidism Bipolar disorder Prior history of smoking DVT prophylaxis with heparin subcu GI prophylaxis Plan Continue current medications Vimpat is discontinued Reinforce education regarding dysphagia diet and aspiration precautions Cleared for free water intake with guidelines Continue hemodialysis MWF Continue PT/OT and speech therapy Medically stable for DC pending insurance authorization which discharge is planned [facility]. No insurance auth as of today. The impression and plan of care has been dictated by Kelly Yanez, Nurse Practitioner as directed. Dr. Estelle MD I have performed a history and physical examination and medical decision making of this patient, discussed the same with the dictator, and agree with the dictators assessment and plan as written, documented as a scribe. Based on total visit time, I have performed more than 50% of this visit. Objective - Vital Signs Vital signs: Vital Signs Temp 98.4 F 08/06/22 01:45 Pulse 71 08/06/22 01:45 Resp 14 08/06/22 01:45 BP 127/77 08/06/22 01:45 Pulse Ox 97 08/06/22 07:29 FiO2 21 08/02/22 20:35 Intake & Output 08/05/22 08/06/22 08/06/22 18:59 06:59 18:59 Intake Total 300 Output Total 2200 Balance -1900 Weight 75.5 kg Intake: Hemodialysis 300 Output: Hemodialysis 2200 Other: Voiding Method Diaper Diaper Incontinent Incontinent # Voids 1 # Bowel Movements 1 5 - Labs CBC & Chem 7: 08/01/22 05:14 08/05/22 09:30 Labs: Abnormal Lab Results - Last 24 Hours (Table) 08/05/22 08/05/22 08/05/22 Range/Units 09:30 11:46 17:10 Sodium 132 L (137-145) mmol/L BUN 28 H (7-17) mg/dL Creatinine 7.94 H* (0.52-1.04) mg/dL Glucose 139 H (74-99) mg/dL POC Glucose (mg/dL) 113 H 203 H (70-110) mg/dL 08/05/22 Range/Units 21:12 Sodium (137-145) mmol/L BUN (7-17) mg/dL Creatinine (0.52-1.04) mg/dL Glucose (74-99) mg/dL POC Glucose (mg/dL) 232 H (70-110) mg/dL Assessment and Plan Time with Patient: Less than 30
[2022-08-06 16:43] LABS: Glucose,Whole Blood 193 mg/dL (70-110)
[2022-08-06 20:39] LABS: Glucose,Whole Blood 191 mg/dL (70-110)
[2022-08-07] MEDS: SEVELAMER 800 MG TAB PO SCH ×3 (06:02→17:19)
[2022-08-07] MEDS: CALCIUM ACETATE 667 MG TAB PO SCH ×3 (06:02→17:24)
[2022-08-07] MEDS: PANTOPRAZOLE 40 MG TABLET PO SCH (06:02)
[2022-08-07 06:18] LABS: Glucose,Whole Blood 118 mg/dL (70-110)
[2022-08-07] MEDS: ATORVASTATIN 40 MG TAB PO SCH (08:19)
[2022-08-07] MEDS: DIVALPROEX SPRINKLE 125 MG CAP.SPRINK PO SCH ×3 (08:19→21:55)
[2022-08-07] MEDS: amLODIPine 5 MG TAB PO SCH ×2 (08:19→21:55)
[2022-08-07] MEDS: METOPROLOL TARTRATE 25 MG TAB PO SCH ×2 (08:19→21:55)
[2022-08-07] MEDS: CLOPIDOGREL 75 MG TAB PO SCH (08:20)
[2022-08-07] MEDS: levETIRAcetam 500 MG TAB PO SCH ×2 (08:20→22:24)
[2022-08-07] MEDS: HEPARIN SODIUM,PORCINE/PF 5,000 UNIT/0.5 ML SYRINGE SQ SCH ×2 (08:20→21:54)
[2022-08-07] MEDS: ZONISAMIDE 100 MG CAP PO SCH (08:21)
[2022-08-07 11:41] LABS: Glucose,Whole Blood 161 mg/dL (70-110)
--- NOTE | 2022-08-07 12:00 | P.PN ---
Subjective Progress Note Date: 08/07/22 Principal diagnosis: Follow-up for ESRD on dialysis Monday admitted with confusion and a history of seizures in the background. Currently she is awake and alert a nd oriented. Comfortable. Denies any complaints. She was recently discharged on 07/27/2022 and was sent back because of progressively worsening lethargy Vital signs are stable blood pressure 126, to 140s systolic and diastolic in the 70-80's afebrile she is awake and alert and oriented. No nausea vomiting. Unable to walk yet History of present illness: The patient is a 52-year-old female seen in renal consultation for end-stage renal disease. She is on hemodialysis on Monday schedule. Patient presents from extended care facility due to worsening lethargy noted but the nursing staff. Patient tested positive for coronary at the [facility]. There was also concern for aspiration. It is noted in the chart at the patient was coughing when she was fed. Patient has history of seizures and is required multiple hospitalizations for it recently. In the hospital she tested negative for influenza, RSV and covert PCR. No fever. Her white count is not elevated. Chest x-ray from today showed no acute process. Currently resting in bed. Hemodynamically stable. She is on room air. Patient has history of CVA residual hemiparesis and dysarthria. Objective - Vital Signs Vital signs: Vital Signs Temp 97.5 F L 08/07/22 07:02 Pulse 70 08/07/22 07:02 Resp 18 08/07/22 07:02 BP 126/77 08/07/22 07:02 Pulse Ox 98 08/07/22 07:42 FiO2 21 08/02/22 20:35 Intake & Output 08/06/22 08/07/22 08/07/22 18:59 06:59 18:59 Weight 74.5 kg Other: Voiding Method Diaper Diaper Incontinent Incontinent # Voids 1 2 # Bowel Movements 1 Examination awake alert oriented No JVP noted neck is supple no facial asymmetry Lungs clear to auscultation good air entry bilaterally Heart sounds unremarkable Abdomen soft nontender Extremity exam was no edema Neurologically awake alert oriented - Labs CBC & Chem 7: 08/01/22 05:14 08/05/22 09:30 Labs: Abnormal Lab Results - Last 24 Hours (Table) 0108/06/22 08/07/22 Range/Units 16:42 20:37 06:17 POC Glucose (mg/dL) 193 H 191 H 118 H (70-110) mg/dL 08/07/22 Range/Units 11:39 POC Glucose (mg/dL) 161 H (70-110) mg/dL Assessment and Plan Assessment: Impression 1. ESRD on dialysis Monday stable, with an access on her left upper on 2. Admitted with confusion resolved. 3. History of seizures 4. Anemia of ESRD, hemoglobin is 9.5 on 08/01/2022 improved from 9.2 Recommendation 1. Maintain dialysis schedule Monday 2. May be discharge from our perspective
--- NOTE | 2022-08-07 13:53 | P.PN ---
Subjective Progress Note Date: 08/07/22 Patient is a 52-year-old female with a known history of ESRD on hemodialysis, seizure disorder with status epilepticus during recent admission and was discharged to [facility] on 07/27/2022, hypothyroidism, hypertension, hyperlipidemia, diabetes type 2, history of CVA/TIA and history of left foot drop, bipolar diso rder and prior history of smoking was [facility]. Patient was discharged on 07/27/2022. Patient was found to be progressively lethargic as noted by the penitentiary staff, patient was tested positive at the penitentiary this morning however COVID-19 PCR was negative currently. Possible aspiration was also suspected as per penitentiary staff. Patient had a swallow study recently and was able to tolerate dysphagia diet with aspiration precautions. Patient was afebrile on admission. Pulse ox 96% on room air. Chest x-ray showed right perihilar patchy opacities which may represent infiltrative versus atelectasis. EKG showed sinus rhythm Laboratory data showed WBC 6.4 hemoglobin 12.3, platelets 179 Sodium 136 potassium 4.5 chloride 100 bicarb is 24 BUN 35 and creatinine 9.62 an d blood sugar is 106 UDS negative and influenza A, B, RSV and SARS-CoV-2 not detected. 07/30/2022 Patient is lying in bed. Awake alert and oriented. Slow to respond. No further episodes of seizures. No complaints of chest pain or worsening shortness of breath. Denies any complaints of cough or sputum production. No nausea vomiting abdominal pain or diarrhea Laboratory reviewed. Procalcitonin level is 0.33. Sodium 139 potassium 4.9 chloride 106 bicarb is 20 BUN 45 creatinine 10.3. Patient is undergoing hemodialysis today. Nephrology and neurology is on board. 07/31/2022 Patient is currently resting in the bed. Awake alert and oriented x3. Slow to respond. No complaints of chest pain or worsening shortness of breath. Patient has been afebrile overnight. No further episodes of seizures. Patient is being on dysphagia diet. Patient did have episode of choking today afternoon while eating. Remained stable at this time. Denies any complaints of worsening chest pain or shortness of breath. Patient has been afebrile. Follow-up repeat chest x-ray tomorrow. Nephrology neurology on board. Plans for discharge back to facility in the next 24 to 48 hours. 08/01/2021 Patient is evaluated today resting in bed, currently receiving hemodialysis. She has been maintained on dysphagia diet with 1:1 supervision. She reports tolerating diet. No acute events overnight, no further seizure like activity. Neurology recommending for patient to follow up with epilepsy specialist on discharge. Currently she is refusing D/C to subacute rehab. She would like to discharge home and states her will be able to provide care. Physical therapy evaluation pending at this time. She has not been ambulatory. 08/02/2022 Patient is resting in bed. She has been evaluated by PT/OT today and recommendations for subacute rehab she is willing to go to rehab now. unable to provide care for her at home at this time. She is maintained on dialysis scheduled of Mon/Mon/Mon and will undergo hemodialysis tomorrow. Continues with aspiration precautions sitting upright with dysphagia chopped diet and nectar thick liquids. Labs and vitals stable. Pending authorization for DC to rehab. 08/03/2022 Patient evaluated today during hemodialysis. No acute events overnight. Making progress with physical therapy was able to sit on edge of bed unassisted. She is continuing to make progress and is agreeable to continuing therapy. Additionally has been re-evaluated by speech therapy today and is able to tolerate free water. Continues with aspiration precautions and close monitoring with meal intake. She continues on MWF hemodialysis scheduled. Resumed on all oral antiseizure medications. Patient is agreeable for D/C to rehab and pending return to [facility] otherwise medically stable. 08/04/2022 Patient is currently pending placement and insurance auth approval for discharge to subacute rehab. Continues on oral anti seizure medications. Making improvements with PT/OT and speech therapy. Was up in the chair today. Able to tolerate free water. Alert x 3. Patient will have hemodialysis tomorrow per MWF schedule. Nephrology continues to follow. Blood pressure 102/67 today, afebrile, heart rate 78, on room air. Patient is pending insurance authorization and will likely DC to [facility] in [place] on Monday where they have on site hemodialysis. She has been dialyzed today per her usual MWF scheduled. Discussed with neurology and vimpat is discontinued and patient is recommending to continue off of vimpat. She is alert x 3 today and no longer lethargic. No acute events overnight. Afebrile, blood pressure 118/59, heart rate 70, 94% room air. Anticipating discharge. 08/06/2022 Patient is evaluated on medical floor today. Pending insurance authorization for DC likely on monday. Had hemodialysis yesterday with 2.2L off. No acute events overnight. Monitored off the vimpat. Continues on room air, afebrile. 08/07/2022 Patient continues to be evaluated on medical floor. Maintained on hemodialysis MWF. She is pending authorization for discharge to subacute rehab. Patient is afebrile, heart rate 70, blood pressure 126/77, 98% on room air. She is tolerating diet and her lung sounds continue to improve, monitored off antibiotics and using incentive spirometer. Review of Systems Constitutional: Denied any fatigue denied any fever. Cardio vascular: denied any chest pain, palpitations Gastrointestinal: denied any nausea, vomiting, diarrhea Pulmonary: Denied any shortness of breath cough Neurologic denied any new focal deficits All inpatient medications were reviewed and appropriate changes in these medications as dictated in the interval history and assessment and plan. PHYSICAL EXAMINATION: GENERAL: The patient is alert and oriented x3, not in any acute distress. Well developed, well nourished. HEENT: Pupils are round and equally reacting to light. EOMI. No scleral icterus. No conjunctival pallor. Normocephalic, atraumatic. No pharyngeal erythema. No thyromegaly. CARDIOVASCULAR: S1 and S2 present. No murmurs, rubs, or gallops. PULMONARY: Chest is clear to auscultation, no wheezing or crackles. ABDOMEN: Soft, nontender, nondistended, normoactive bowel sounds. No palpable organomegaly. MUSCULOSKELETAL: No joint swelling or deformity. EXTREMITIES: No cyanosis, clubbing, or pedal edema. NEUROLOGICAL: Slurred speech, diffuse generalized weakness SKIN: No rashes. Assessment and Plan Assessment RT. perihilar pacities possible atelectasis versus pneumonia. COVID-19 PCR not detected. Procalcitonin level 0.33. Follow up chest xray shows clearing of opacities and no white count. Pneumonia ruled out likely representing atelect asis. Monitored off antibiotics. ESRD on hemodialysis Monday and Monday Recent admission with status epilepticus. Dysphagia diet with aspiration precautions as per most recent swallow study. Left ICA 75% stenosis at the origin as per CTA neck. Hypodensity in the brainstem and left basal ganglia related to previous CVA History of CVA with left-sided weakness Diabetes type 2 Peripheral neuropathy Memory impairment GERD Hypertension Hyperlipidemia Hypothyroidism Bipolar disorder Prior history of smoking DVT prophylaxis with heparin subcu GI prophylaxis Plan Continue current medications Vimpat is discontinued Reinforce education regarding dysphagia diet and aspiration precautions Cleared for free water intake with guidelines Continue hemodialysis MWF Continue PT/OT and speech therapy Medically stable for DC pending insurance authorization which discharge is planned for monday to [facility]. No insurance auth as of today. The impression and plan of care has been dictated by Kelly Yanez Nurse Practitioner as directed. Dr. Estelle MD I have performed a history and physical examination and medical decision making of this patient, discussed the same with the dictator, and agree with the dictators assessment and plan as written, documented as a scribe. Based on total visit time, I have performed more than 50% of this visit. Objective - Vital Signs Vital signs: Vital Signs Temp 97.5 F L 08/07/22 07:02 Pulse 70 08/07/22 07:02 Resp 18 08/07/22 07:02 BP 126/77 08/07/22 07:02 Pulse Ox 98 08/07/22 07:42 FiO2 21 08/02/22 20:35 Intake & Output 08/06/22 08/07/22 08/07/22 18:59 06:59 18:59 Weight 74.5 kg Other: Voiding Method Diaper Diaper Incontinent Incontinent # Voids 1 2 # Bowel Movements 1 - Labs CBC & Chem 7: 08/01/22 05:14 08/05/22 09:30 Labs: Abnormal Lab Results - Last 24 Hours (Table) 08/06/22 08/06/22 08/06/22 Range/Units 11:46 16:42 20:37 POC Glucose (mg/dL) 185 H 193 H 191 H (70-110) mg/dL 08/07/22 Range/Units 06:17 POC Glucose (mg/dL) 118 H (70-110) mg/dL Assessment and Plan Time with Patient: Less than 30
[2022-08-07 16:40] LABS: Glucose,Whole Blood 141 mg/dL (70-110)
[2022-08-07 20:56] LABS: Glucose,Whole Blood 186 mg/dL (70-110)
[2022-08-08 06:08] LABS: Glucose,Whole Blood 193 mg/dL (70-110)
[2022-08-08] MEDS: PANTOPRAZOLE 40 MG TABLET PO SCH (06:48)
[2022-08-08] MEDS: CALCIUM ACETATE 667 MG TAB PO SCH ×3 (06:48→17:04)
[2022-08-08] MEDS: SEVELAMER 800 MG TAB PO SCH ×3 (06:49→17:04)
[2022-08-08] MEDS: DIVALPROEX SPRINKLE 125 MG CAP.SPRINK PO SCH ×3 (08:46→21:53)
[2022-08-08 09:38] LABS: African American GFR (CKD) 5 (>60 ml/min/1.73 sqM); Anion Gap 8 mmol/L; Blood Urea Nitrogen 38 mg/dL (7-17); Calcium 9.2 mg/dL (8.4-10.2); Carbon Dioxide 26 mmol/L (22-30); Chloride 101 mmol/L (98-107); Glucose 159 mg/dL (74-99); Non-African American GFR(CKD) 5 (>60 ml/min/1.73 sqM); Potassium 4.1 mmol/L (3.5-5.1); Sodium 135 mmol/L (137-145)
[2022-08-08 11:16] LABS: Glucose,Whole Blood 128 mg/dL (70-110)
[2022-08-08 11:53] LABS: Hepatitis B Surface Antibody Reactive (Nonreactive)
[2022-08-08 12:01] LABS: Hepatitis B Surface Antigen Nonreactive (Nonreactive)
[2022-08-08] MEDS: ATORVASTATIN 40 MG TAB PO SCH (12:12)
[2022-08-08] MEDS: CLOPIDOGREL 75 MG TAB PO SCH (12:12)
[2022-08-08] MEDS: ZONISAMIDE 100 MG CAP PO SCH (12:12)
[2022-08-08] MEDS: HEPARIN SODIUM,PORCINE/PF 5,000 UNIT/0.5 ML SYRINGE SQ SCH ×2 (12:12→21:54)
[2022-08-08] MEDS: levETIRAcetam 500 MG TAB PO SCH ×3 (12:13→21:53)
[2022-08-08] MEDS: amLODIPine 5 MG TAB PO SCH ×2 (12:15→21:53)
--- NOTE | 2022-08-08 14:12 | P.DS ---
Providers Date of admission: 07/29/22 14:48 Attending physician: Arnulfo Jones Consults: 07/29/22 14:48 Consult Physician Urgent Consulting Provider: Urszula Ludwig Consult Reason/Comments: Missed dialysis Do you want consulting provider notified?: Yes 07/29/22 23:39 Consult Physician Urgent Consulting Provider: Cristhian Luevano Consult Reason/Comments: Hx of seizure, medication management Do you want consulting provider notified?: Yes Primary care physician: Gabriel Taylor Hospital Course: Final Diagnosis Right perihilar opacities possible atelectasis versus pneumonia. COVID-19 PCR not detected. Procalcitonin level 0.33. Follow up chest xray shows clearing of opacities and no white count. Pneumonia ruled out likely representing atelectasis. Missed Hemodialysis ESRD on hemodialysis Monday and Monday Recent admission with status epilepticus. Continue current regimen, patient is off vimpat. Dysphagia diet with aspiration precautions as per most recent swallow study. Left ICA 75% stenosis at the origin as per CTA neck. Hypodensity in the brainstem and left basal ganglia related to previous CVA History of CVA with left-sided weakness Diabetes type 2 Peripheral neuropathy Memory impairment GERD Hypertension Hyperlipidemia Hypothyroidism Bipolar disorder Prior history of smoking Discharge Disposition Patient is stable for discharge to subacute rehab, she is continuing to make progress with PT/OT and speech therapy. Current diet dysphgia level 3 chopped, aspiration precautions, 1:1 supervison, sitting upright 90 degrees. [place] thick liquids with free water guidelines. Patient will require ongoing speech therapy on discharge. Patient to continue current hemodialysis scheduled monday/mon/monday and follow up with nephrology as previously recommended. Continue with antiseizure medications as scheduled. Vimpat has been discontinued on discharge. Patient does have medical refractory epilepsy and is recommended to see an epileptilogist on discharge in addition to her known neurologist. Close follow up with primary care. Repeat labs in 2 to 3 days. Hospital Course The patient is a 52-year-old female with medical history of diabetes mellitus, CVA, hypertension, hyperlipidemia, seizure disorder, thyroid disorder, GERD, sleep apnea, bipolar, former smoker. She has left arm fistula. She is maintained on hemodialysis on Monday schedule. Patient presents from extended care facility due to worsening lethargy noted by the nursing staff. Patient tested positive for covid at the intermediate however here she is negative for influenza, RSV and COVID. There was also concern for aspiration. It is noted in the chart at the patient was coughing when she was fed. Patient has history of seizures and is required multiple hospitalizations for it recen tly. In the hospital she tested negative for influenza, RSV and covert PCR. No fever. Her white count is not elevated. Chest x-ray from today showed no acute process. Currently resting in bed. Hemodynamically stable. She is on room air. Patient has history of CVA residual hemiparesis and dysarthria. She was admitted and evaluated by neurology who had resumed her antiseizure medications. She was taken off the vimpat. She has improved overall and has been working with PT/OT and speech therapy. She is alert x 3, tolerating diet. She has been continued on hemodialysis this admission MWF per usual. Her most recent labs showing sodium of 135, BUN 38, creatinine of 8.92. She has been pending authorization for DC to weekend and has been medically cleared for discharge. 08/08/2022 Patient is evaluated today resting in bed. She has been working with PT and was able to get up to the chair yesterday. She continues with significant generalized weakness. Additionally, she has made improvements with speech therapy. She continues on dysphagia level 3 chopped diet with nectar thick liquids and FFWP. Her white count has remained negative this admission, hgb stable at 9.5, sodium 135, potassium 4.1, BUN 38, creatinine 8.92. Currently denying shortness of breath, no chest pain. No nausea, vomiting or diarrhea. Her bowels are moving. She is alert x 3, she has some residual slurred speech and slow to respond. She has been in better spirits. Lungs are clear today, S1 S2 auscultated. She is encouraged to continue incentive spirometer 10 x an hour while awake. She is afebrile, heart rate 72, blood pressure 135/47, 95% room air. Cleared medically for discharge to subacute rehab. Please see medication reconciliation for list of current medication. Thank you for allowing us to participate in the care of this patient. The impression and plan of care has been dictated by Kelly Yanez, Nurse Practitioner as directed. Dr. Estelle MD I have performed a history and physical examination and medical decision making of this patient, discussed the same with the dictator, and agree with the dictators assessment and plan as written, documented as a scribe. Based on total visit time, I have performed more than 50% of this visit. Patient Condition at Discharge: Stable Plan - Discharge Summary Discharge Rx Participant: No New Discharge Prescriptions: Continue Clopidogrel [Plavix] 75 mg PO DAILY #30 tab Atorvastatin [Lipitor] 40 mg PO DAILY Vascepa 1gm 1 gm PO BID Sevelamer [Renvela] 800 mg PO BID-W/MEALS Calcium Acetate 667 mg PO TID-W/MEALS Pantoprazole [Protonix] 40 mg PO DAILY Sevelamer [Renvela] 1,600 mg PO W/SUPPER Zonisamide [Zonegran] 100 mg PO DAILY 30 Days #30 cap Heparin Sodium,Porcine [Heparin Sodium] 5,000 unit SQ Q12HR 30 Days #60 each bisacodyL 10 mg RECTAL DAILY PRN PRN Reason: Constipation Dulaglutide [Trulicity] 3 mg SQ Q7D Darbepoetin Maurizio [Aranesp] 40 mcg SQ Q7D each Divalproex Sprinkle [Depakote Sprinkle] 500 mg PO TID cap levETIRAcetam [Keppra] 500 mg PO MOWEFR@1800 tab levETIRAcetam [Keppra] 500 mg PO Q12HR tab Metoprolol Tartrate [Lopressor] 25 mg PO BID tab amLODIPine [Norvasc] 5 mg PO BID tab Discontinued Lacosamide [Vimpat] 100 mg PO BID #6 tab Discharge Medication List Clopidogrel [Plavix] 75 mg PO DAILY #30 tab 09/05/20 [Rx] Atorvastatin [Lipitor] 40 mg PO DAILY 03/23/21 [History] Dulaglutide [Trulicity] 3 mg SQ Q7D 03/23/21 [History] Sevelamer [Renvela] 800 mg PO BID-W/MEALS 03/23/21 [History] Vascepa 1gm 1 gm PO BID 03/23/21 [History] Calcium Acetate 667 mg PO TID-W/MEALS 02/25/22 [History] Pantoprazole [Protonix] 40 mg PO DAILY 02/25/22 [History] Sevelamer [Renvela] 1,600 mg PO W/SUPPER 10/07/22 [History] Zonisamide [Zonegran] 100 mg PO DAILY 30 Days #30 cap 07/06/22 [Rx] Darbepoetin Maurizio [Aranesp] 40 mcg SQ Q7D each 07/27/22 [Rx] Divalproex Sprinkle [Depakote Sprinkle] 500 mg PO TID cap 07/27/22 [Rx] Heparin Sodium,Porcine [Heparin Sodium] 5,000 unit SQ Q12HR 30 Days #60 each 07/27/22 [Rx] Metoprolol Tartrate [Lopressor] 25 mg PO BID tab 07/27/22 [Rx] amLODIPine [Norvasc] 5 mg PO BID tab 07/27/22 [Rx] levETIRAcetam [Keppra] 500 mg PO MOWEFR@1800 tab 07/27/22 [Rx] levETIRAcetam [Keppra] 500 mg PO Q12HR tab 07/27/22 [Rx] bisacodyL 10 mg RECTAL DAILY PRN 07/29/22 [History] Follow up Appointment(s)/Referral(s): Geoffrey Somers MD [STAFF PHYSICIAN] - 1-2 Days Iris Oliver NPC [REFERRING] - 1 Week Martínez Mcgovern DO [STAFF PHYSICIAN] - 1 Week Ambulatory/Diagnostic Orders: Basic Metabolic Panel [LAB.AMB] Time Frame: 3 Days, Location: None Selected Complete Blood Count w/diff [LAB.AMB] Time Frame: 3 Days, Location: None Selected Activity/Diet/Wound Care/Special Instructions: Patient needs to follow up with epilepsy specialist as well as her neurologist Patient is recommending to stay off vimpat. Recommend to see PCP in 1 to 2 days Continue hemodialysis scheduled Mon/Wed/Fri and follow up with nephrology as usual Continue with dysphagia level 3 chopped diet Sitting up 90 degrees for all meals/drinks Aspiration precautions 1:1 supervision No Straws [place] Thick Liquids Patient has free water guidelines in place Patient is high risk for aspiration Discharge Disposition: TRANSFER TO SNF/ECF
[2022-08-08] MEDS: METOPROLOL TARTRATE 25 MG TAB PO SCH ×2 (14:28→21:53)
--- NOTE | 2022-08-08 14:44 | P.PN ---
Subjective Patient is seen for f/u for ESRD. Currently seen on hemodialysis. Tolerating treatment well. Objective - Vital Signs Vital signs: Vital Signs Temp 97.5 F L 08/08/22 13:37 Pulse 72 08/08/22 14:36 Resp 20 08/08/22 13:37 BP 103/67 08/08/22 14:36 Pulse Ox 97 08/08/22 14:36 FiO2 21 08/02/22 20:35 Intake & Output 08/07/22 08/08/22 08/08/22 18:59 06:59 18:59 Intake Total 250 Balance 250 Weight 73.5 kg Intake: Oral 250 Other: Voiding Method Diaper Diaper Incontinent Incontinent # Voids 2 1 # Bowel Movements 1 - Exam Awake, comfortable Lungs are clear Heart sounds are heard Abdomen is soft No edema noted. - Labs CBC & Chem 7: 08/01/22 05:14 08/08/22 08:50 Labs: Abnormal Lab Results - Last 24 Hours (Table) 08/05/22 08/07/22 08/07/22 Range/Units 09:30 16:39 20:55 Sodium (137-145) mmol/L BUN (7-17) mg/dL Creatinine (0.52-1.04) mg/dL Glucose (74-99) mg/dL POC Glucose (mg/dL) 141 H 186 H (70-110) mg/dL Hep Bs Antibody Reactive A (Nonreactive) 08/08/22 08/08/22 08/08/22 Range/Units 06:06 08:50 11:14 Sodium 135 L (137-145) mmol/L BUN 38 H (7-17) mg/dL Creatinine 8.92 H* (0.52-1.04) mg/dL Glucose 159 H (74-99) mg/dL POC Glucose (mg/dL) 193 H 128 H (70-110) mg/dL Hep Bs Antibody (Nonreactive) Assessment and Plan Assessment: 1. ESRD on dialysis Monday stable, with an access on her left upper arm. 2. Admitted with confusion resolved. 3. History of seizures 4. Anemia of ESRD, hemoglobin is 9.5 on 08/01/2022 improved from 9.2 Plan: Continue maintenance hemodialysis.
[2022-08-08 16:11] LABS: Glucose,Whole Blood 149 mg/dL (70-110)
[2022-08-08 20:42] LABS: Glucose,Whole Blood 215 mg/dL (70-110)
[2022-08-09 02:31] VITALS: RESP 17
[2022-08-09] MEDS: PANTOPRAZOLE 40 MG TABLET PO SCH (05:56)
[2022-08-09 06:05] LABS: Glucose,Whole Blood 115 mg/dL (70-110)
[2022-08-09 08:18] VITALS: BP 113/72; PULSE 66; TEMP 97.9
[2022-08-09] MEDS: DIVALPROEX SPRINKLE 125 MG CAP.SPRINK PO SCH (08:20)
[2022-08-09] MEDS: METOPROLOL TARTRATE 25 MG TAB PO SCH (08:20)
[2022-08-09] MEDS: ATORVASTATIN 40 MG TAB PO SCH (08:20)
[2022-08-09] MEDS: HEPARIN SODIUM,PORCINE/PF 5,000 UNIT/0.5 ML SYRINGE SQ SCH (08:21)
[2022-08-09] MEDS: SEVELAMER 800 MG TAB PO SCH (08:21)
[2022-08-09] MEDS: CALCIUM ACETATE 667 MG TAB PO SCH (08:21)
[2022-08-09] MEDS: CLOPIDOGREL 75 MG TAB PO SCH (08:21)
[2022-08-09] MEDS: amLODIPine 5 MG TAB PO SCH (08:21)
[2022-08-09] MEDS: levETIRAcetam 500 MG TAB PO SCH (08:22)
[2022-08-09] MEDS: ZONISAMIDE 100 MG CAP PO SCH (08:22)
== END 2022-08-09 11:25 | DRG 682 ==
LOC: EC 10:47 → 3SCARD 14:48 → 4SSUR 21:10
PROVIDERS: ADMIT Internal Medicine; ATTEND Internal Medicine
PROC: 5A1D70Z Performance of Urinary Filtration, Intermittent, Less than 6 Hours Per Day (ICD-10-PCS; principal; 2022-07-30)
DX: I12.0 Hypertensive chronic kidney disease with stage 5 chronic kidney disease or end stage renal disease (principal); N18.6 End stage renal disease; G40.419 Other generalized epilepsy and epileptic syndromes, intractable, without status epilepticus; I69.354 Hemiplegia and hemiparesis following cerebral infarction affecting left non-dominant side; E87.20 Acidosis, unspecified; E11.22 Type 2 diabetes mellitus with diabetic chronic kidney disease; Z99.2 Dependence on renal dialysis; E11.42 Type 2 diabetes mellitus with diabetic polyneuropathy; Z87.891 Personal history of nicotine dependence; D63.1 Anemia in chronic kidney disease; E83.9 Disorder of mineral metabolism, unspecified; E78.5 Hyperlipidemia, unspecified; F31.9 Bipolar disorder, unspecified; I65.22 Occlusion and stenosis of left carotid artery; T50.3X6A Underdosing of electrolytic, caloric and water-balance agents, initial encounter; Z91.A3 Caregiver's unintentional underdosing of patient's medication regimen; M19.90 Unspecified osteoarthritis, unspecified site; M21.372 Foot drop, left foot; Z20.822 Contact with and (suspected) exposure to COVID-19; Z28.310 Unvaccinated for COVID-19; Z28.21 Immunization not carried out because of patient refusal; R13.10 Dysphagia, unspecified; R47.81 Slurred speech; K21.9 Gastro-esophageal reflux disease without esophagitis; R41.3 Other amnesia; Z79.02 Long term (current) use of antithrombotics/antiplatelets; Z79.899 Other long term (current) drug therapy
CPT/HCPCS: 36415; 71045; 71046; 80048; 80053; 80164; 80165; 80306; 82728; 83540; 83550; 84100; 84145; 84484; 85025; 85610; 85730; 86704; 86706; 87340; 87636; 90935; 93005; 94760; 96365; 96366; 96376; 99285

== ENCOUNTER 2022-11-13 19:14 | Emergency (ER) | payer MEDICARE, OTHER ==
[2022-11-13 19:28] VITALS: TEMP 98.4
--- NOTE | 2022-11-13 20:19 | ED ---
Altered Mental Status HPI - General Chief Complaint: Altered Mental Status Stated Complaint: Altered Mental Time Seen by Provider: 11/13/22 19:31 Source: EMS Mode of arrival: EMS Limitations: altered mental status - History of Present Illness Initial Comments: Patient is a 52-year-old female presenting for altered mental status. Patient was sent in from [facility]. Further details are unavailable, no report from EMS available. Patient is able short conversation, is able to follow commands. Reviewing previous notes this appears to be consistent with her baseline. She has history of chronic kidney disease requiring dialysis, records report that patient normally receives dialysis Monday and Monday. - Related Data Home Medications Medication Instructions Recorded Confirmed Atorvastatin [Lipitor] 40 mg PO HS 03/23/21 11/13/22 Dulaglutide [Trulicity] 3 mg SQ WE 03/23/21 11/13/22 Calcium Acetate 667 mg PO DIRECTED 02/25/22 11/13/22 Sevelamer [Renvela] 1,600 mg PO BID 04/29/22 11/13/22 Zonisamide [Zonegran] 100 mg PO TID 09/10/22 11/13/22 levETIRAcetam [Keppra] 500 mg PO BID@0900,199909/10/22 11/13/22 levETIRAcetam [Keppra] 500 mg PO MOWEFR@1400 09/10/22 11/13/22 Divalproex Sodium [Depakote] 500 mg PO BID@0900,199909/12/22 11/13/22 Divalproex Sodium [Depakote] 500 mg PO MOWEFR@1400 09/12/22 11/13/22 icosapent ethyL [Vascepa] 1 gm PO BID 09/21/22 11/13/22 Metoprolol Tartrate [Lopressor] 25 mg PO DIRECTED 11/13/22 11/13/22 Renal-Mirza 1 cap PO DAILY 11/13/22 11/13/22 Previous Rx's Medication Instructions Recorded Famotidine [Pepcid] 20 mg PO DAILY #30 tab 09/30/22 Lacosamide [Vimpat] 150 mg PO BID@0900,1999 #6 tab 09/30/22 Lacosamide [Vimpat] 150 mg PO MOWEFR@1400 #2 tab 09/30/22 Ciprofloxacin HCl [Cipro] 500 mg PO BID 5 Days #10 tab 11/14/22 Allergies Allergy/AdvReac Type Severity Reaction Status Date / Time Penicillins Allergy Itching Verified 11/13/22 20:45 Review of Systems ROS Statement: Those systems with pertinent positive or pertinent negative responses have been documented in the HPI. ROS Other: All systems not noted in ROS Statement are negative. Past Medical History Past Medical History: Chest Pain / Angina, CVA/TIA, Diabetes Mellitus, GERD/Reflux, Hyperlipidemia, Hypertension, Memory Impairment, Osteoarthritis (OA), Renal Disease, Seizure Disorder, Thyroid Disorder Additional Past Medical History / Comment(s): Last seizure approximately one month ago. Spouse states she used to have seizures 4X per week until she had vagal nerve stimulator placed, now has seizures approximately once a week to once a month. Dialysis MOWEFR. Neuropathy, left drop foot, only able to walk short distances, otherwise uses wheelchair. 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 Never diagnosed with Sleep Apnea but spouse states she does stop breathing through the night and he has to shake her to start breathing again. Varicose veins. History of Any Multi-Drug Resistant Organisms: None Reported Past Surgical History: Section, Tonsillectomy, Uterine Ablation Additional Past Surgical History / Comment(s): Left arm fistula, loop recorder, vagus nerve stimulator. Past Anesthesia/Blood Transfusion Reactions: Motion Sickness Additional Past Anesthesia/Blood Transfusion Reaction / Comment(s): Family hx unknown, pt adopted. Past Psychological History: Bipolar Smoking Status: Former smoker Past Alcohol Use History: None Reported Past Drug Use History: None Reported - Past Family History Father Family Medical History: Unable to Obtain Additional Family Medical History / Comment(s): Pt adopted. General Exam Limitations: altered mental status General appearance: alert, in no apparent distress Head exam: Present: atraumatic, normocephalic, normal inspection Eye exam: Present: normal appearance, PERRL. Absent: periorbital swelling Neck exam: Present: normal inspection Respiratory exam: Present: normal lung sounds bilaterally. Absent: respiratory distress, wheezes, rales, rhonchi, stridor Cardiovascular Exam: Present: regular rate, normal rhythm, normal heart sounds. Absent: systolic murmur, diastolic murmur, rubs, gallop, clicks Neurological exam: Present: alert, altered Psychiatric exam: Present: flat affect Skin exam: Present: warm, dry, intact, normal color. Absent: rash Course Vital Signs 11/13/22 11/13/22 11/14/22 19:25 21:51 00:15 Temperature 98.4 F Pulse Rate 94 86 87 Respiratory 18 16 20 Rate Blood Pressure 151/77 144/76 156/84 O2 Sat by Pulse 98 96 96 Oximetry 11/14/22 03:01 Temperature Pulse Rate 83 Respiratory 16 Rate Blood Pressure 148/78 O2 Sat by Pulse 98 Oximetry Medical Decision Making - Medical Decision Making Was pt. sent in by a medical professional or institution (, PA, [facility], urgent care, hospital, or custodial...) When possible be specific @ -senior living Did you speak to anyone other than the patient for history (EMS, parent, family, police, friend...)? What history was obtained from this source @ -Vague history obtained from nursing staff who spoke to EMS Did you review nursing and triage notes (agree or disagree)? Why? @ -I reviewed and agree with nursing and triage notes Were old charts reviewed (outside hosp., previous admission, EMS record, old EKG, old radiological studies, urgent care reports/EKG's, custodial records)? Report findings @ -Previous admissions reviewed Differential Diagnosis (chest pain, altered mental status, abdominal pain women, abdominal pain men, vaginal bleeding, weakness, fever, dyspnea, syncope, headache, dizziness, GI bleed, back pain, seizure, CVA, palpatations, mental health, musculoskeletal)? @ -MDM Differential Altered Mental Status: Hypoglycemia, DKA, hypercapnia, ETOH, overdose, CO poisoning, trauma, myxedema coma, HTN encephalopathy, infection, encephalitis, psychosis, intercranial hemorrhage, hepatic encephalopathy, meningitis, CVA this is not meant to be an all-inclusive list EKG interpreted by me (3pts min.). @ -Sinus rhythm ventricular rate 97. OR interval 164. QRS 92. QT 353. QTC 408 X-rays interpreted by me (1pt min.). @ -Chest x-ray shows no acute process. CT interpreted by me (1pt min.). @ -CT of the brain shows no acute intracranial process U/S interpreted by me (1pt. min.). @ -None done What testing was considered but not performed or refused? (CT, X-rays, U/S, labs)? Why? @ -None What meds were considered but not given or refused? Why? @ -None Did you discuss the management of the patient with other professionals (professionals i.e. , PA, [facility], lab, RT, psych nurse, social sciences research scientist, department store general manager, t eacher, driver license reviewing officer, manager of case management)? Give summary @ -No Was smoking cessation discussed for >3mins.? @ -No Was critical care preformed (if so, how long)? @ -No Were there social determinants of health that impacted care today? How? (Homelessness, low income, unemployed, alcoholism, drug addiction, transportation, low edu. Level, literacy, decrease access to med. care, usp, rehab)? @ -No Was there de-escalation of care discussed even if they declined (Discuss DNR or withdrawal of care, Hospice)? DNR status @ -No What co-morbidities impacted this encounter? (DM, HTN, Smoking, COPD, CAD, Cancer, CVA, ARF, Chemo, Hep., AIDS, mental health diagnosis, sleep apnea, morbid obesity)? @ -Diabetes, hypertension, hyperlipidemia, dementia, renal disease Was patient admitted / discharged? Hospital course, mention meds given and route, prescriptions, significant lab abnormalities, going to OR and other pertinent info. @ -Patient is a 52-year-old female presenting with chief complaint of altered mental status from custodial. On physical examination patient is following commands, able to have short conversations. Creatinine 7.62 and BUN 64, patient currently receives dialysis. Troponin is negative EKG shows no acute changes. CT of the brain and chest x-ray showed no acute process. Urine shows evidence for UTI, she is given a dose of ceftriaxone. I believe it reasonable to discharge her back to the custodial with prescription for Cipro for her UTI. Follow-up with PCP. Report back to ER with any new or worsening symptoms. Discussed return parameters and answered all questions. Patient conveyed verbal understanding and agreed to the plan. I discussed this case in detail with my attending Dr. Khanna Undiagnosed new problem with uncertain prognosis? @ -No Drug Therapy requiring intensive monitoring for toxicity (Heparin, Nitro, Insulin, Cardizem)? @ -No Were any procedures done? @ -No Diagnosis/symptom? @ -UTI Acute, or Chronic, or Acute on Chronic? @ -Acute Uncomplicated (without systemic symptoms) or Complicated (systemic symptoms)? @ -Complicated Side effects of treatment? @ -No Exacerbation, Progression, or Severe Exacerbation? @ -No Poses a threat to life or bodily function? How? (Chest pain, [place], [place], pneumonia, PE, COPD, DKA, ARF, appy, cholecystitis, CVA, Diverticulitis, Homicidal, Suicidal, threat to staff... and all critical care pts) @ -No - Lab Data Result diagrams: 11/13/22 20:18 11/13/22 20:18 Lab Results 11/13/22 11/13/22 11/13/22 Range/Units 20:18 20:18 20:18 WBC 7.3 (3.8-10.6) k/uL RBC 3.43 L (3.80-5.40) m/uL Hgb 11.3 L (11.4-16.0) gm/dL Hct 34.7 (34.0-46.0) % MCV 101.3 H (80.0-100.0) fL MCH 33.1 (25.0-35.0) pg MCHC 32.7 (31.0-37.0) g/dL RDW 13.8 (11.5-15.5) % Plt Count 198 D (150-450) k/uL MPV 8.3 Neutrophils % 63 % Lymphocytes % 28 % Monocytes % 7 % Eosinophils % 1 % Basophils % 1 % Neutrophils # 4.6 (1.3-7.7) k/uL Lymphocytes # 2.0 (1.0-4.8) k/uL Monocytes # 0.5 (0-1.0) k/uL Eosinophils # 0.1 (0-0.7) k/uL Basophils # 0.0 (0-0.2) k/uL Macrocytosis Slight PT 11.0 (9.0-12.0) sec INR 1.1 (<1.2) APTT 24.0 (22.0-30.0) sec Sodium 137 (137-145) mmol/L Potassium 5.3 H (3.5-5.1) mmol/L Chloride 97 L (98-107) mmol/L Carbon Dioxide 28 (22-30) mmol/L Anion Gap 12 mmol/L BUN 64 H (7-17) mg/dL Creatinine 7.62 H* (0.52-1.04) mg/dL Est GFR (CKD-EPI)AfAm 6 (>60 ml/min/1.73 sqM) Est GFR (CKD-EPI)NonAf 5 (>60 ml/min/1.73 sqM) Glucose 213 H (74-99) mg/dL Calcium 9.3 (8.4-10.2) mg/dL Total Bilirubin 0.5 (0.2-1.3) mg/dL AST 50 H (14-36) U/L ALT 32 (4-34) U/L Alkaline Phosphatase 109 (38-126) U/L Ammonia (<30) umol/L Troponin I (0.000-0.034) ng/mL Total Protein 6.6 (6.3-8.2) g/dL Albumin 3.7 (3.5-5.0) g/dL Urine Color Urine Appearance (Clear) Urine pH (5.0-8.0) Ur Specific Liberty (1.001-1.035) Urine Protein (Negative) Urine Glucose (UA) (Negative) Urine Ketones (Negative) Urine Blood (Negative) Urine Nitrite (Negative) Urine Bilirubin (Negative) Urine Urobilinogen (<2.0) mg/dL Ur Leukocyte Esterase (Negative) Urine RBC (0-5) /hpf Urine WBC (0-5) /hpf Ur Squamous Epith Cells (0-4) /hpf Hyaline Casts (0-2) /lpf Urine Opiates Screen (NotDetected) Ur Oxycodone Screen (NotDetected) Urine Methadone Screen (NotDetected) Ur Propoxyphene Screen (NotDetected) Ur Barbiturates Screen (NotDetected) U Tricyclic Antidepress (NotDetected) Ur Phencyclidine Scrn (NotDetected) Ur Amphetamines Screen (NotDetected) U Methamphetamines Scrn (NotDetected) U Benzodiazepines Scrn (NotDetected) Urine Cocaine Screen (NotDetected) U Marijuana (THC) Screen (NotDetected) 11/13/22 11/13/22 11/14/22 Range/Units 20:18 20:18 01:30 WBC (3.8-10.6) k/uL RBC (3.80-5.40) m/uL Hgb (11.4-16.0) gm/dL Hct (34.0-46.0) % MCV (80.0-100.0) fL MCH (25.0-35.0) pg MCHC (31.0-37.0) g/dL RDW (11.5-15.5) % Plt Count (150-450) k/uL MPV Neutrophils % % Lymphocytes % % Monocytes % % Eosinophils % % Basophils % % Neutrophils # (1.3-7.7) k/uL Lymphocytes # (1.0-4.8) k/uL Monocytes # (0-1.0) k/uL Eosinophils # (0-0.7) k/uL Basophils # (0-0.2) k/uL Macrocytosis PT (9.0-12.0) sec INR (<1.2) APTT (22.0-30.0) sec Sodium (137-145) mmol/L Potassium (3.5-5.1) mmol/L Chloride (98-107) mmol/L Carbon Dioxide (22-30) mmol/L Anion Gap mmol/L BUN (7-17) mg/dL Creatinine (0.52-1.04) mg/dL Est GFR (CKD-EPI)AfAm (>60 ml/min/1.73 sqM) Est GFR (CKD-EPI)NonAf (>60 ml/min/1.73 sqM) Glucose (74-99) mg/dL Calcium (8.4-10.2) mg/dL Total Bilirubin (0.2-1.3) mg/dL AST (14-36) U/L ALT (4-34) U/L Alkaline Phosphatase (38-126) U/L Ammonia <9 (<30) umol/L Troponin I <0.012 (0.000-0.034) ng/mL Total Protein (6.3-8.2) g/dL Albumin (3.5-5.0) g/dL Urine Color Light Yellow Urine Appearance Clear (Clear) Urine pH 8.0 (5.0-8.0) Ur Specific Liberty 1.009 (1.001-1.035) Urine Protein 1+ H (Negative) Urine Glucose (UA) Trace H (Negative) Urine Ketones Negative (Negative) Urine Blood Trace H (Negative) Urine Nitrite Negative (Negative) Urine Bilirubin Negative (Negative) Urine Urobilinogen <2.0 (<2.0) mg/dL Ur Leukocyte Esterase Large H (Negative) Urine RBC 13 H (0-5) /hpf Urine WBC 136 H (0-5) /hpf Ur Squamous Epith Cells 1 (0-4) /hpf Hyaline Casts 1 (0-2) /lpf Urine Opiates Screen Not Detected (NotDetected) Ur Oxycodone Screen Not Detected (NotDetected) Urine Methadone Screen Not Detected (NotDetected) Ur Propoxyphene Screen Not Detected (NotDetected) Ur Barbiturates Screen Not Detected (NotDetected) U Tricyclic Antidepress Not Detected (NotDetected) Ur Phencyclidine Scrn Not Detected (NotDetected) Ur Amphetamines Screen Not Detected (NotDetected) U Methamphetamines Scrn Not Detected (NotDetected) U Benzodiazepines Scrn Not Detected (NotDetected) Urine Cocaine Screen Not Detected (NotDetected) U Marijuana (THC) Screen Not Detected (NotDetected) Disposition Clinical Impression: UTI (urinary tract infection) Disposition: HOME SELF-CARE Condition: Good Instructions (If sedation given, give patient instructions): Urinary Tract Infection in Women (ED), Altered Mental Status (ED) Additional Instructions: Follow-up with PCP. Report back to ER with any new or worsening symptoms. Take medication as prescribed. Prescriptions: Ciprofloxacin HCl [Cipro] 500 mg PO BID 5 Days #10 tab Is patient prescribed a controlled substance at d/c from ED?: No Referrals: Gabriel Taylor MD [Primary Care Provider] - 1-2 days Time of Disposition: 02:25
--- NOTE | 2022-11-13 20:31 | XR ---
EXAMINATION TYPE: XR chest 2V DATE OF EXAM: 11/13/2022 8:25 PM COMPARISON: Chest x-ray 09/28/2022 TECHNIQUE: XR chest 2V . CLINICAL INDICATION:Female, 52 years old with history of altered mental status; FINDINGS: Lungs/Pleura: There is no evidence of pleural effusion, focal consolidation, or pneumothorax. Pulmonary vascularity: Unremarkable. Heart/mediastinum: Cardiomediastinal silhouette is unremarkable. Electronic device projects of the l eft chest wall with leads extending into the neck. Loop recorder projects over the lower chest. Musculoskeletal: No acute osseous pathology. IMPRESSION: No acute cardiopulmonary disease/process.
--- NOTE | 2022-11-13 20:44 | CT ---
EXAMINATION TYPE: CT brain wo con CT DLP: 1099.8 mGycm, Automated exposure control for dose reduction was used. DATE OF EXAM: 11/13/2022 8:37 PM COMPARISON: CT brain 09/28/2022, CT brain 09/10/2022. CLINICAL INDICATION:Female, 52 years old with history of Altered mental status, AMS TECHNIQUE: Brain: Axial CT images of the brain were obtained with coronal and sagittal reformats created and rev iewed. Contrast used: None. Oral contrast used: None. FINDINGS: Brain: Extra-axial spaces: No abnormal extra-axial fluid collections. Ventricular system: Within normal limits Cerebral parenchyma: Cerebral atrophy. No acute intraparenchymal hemorrhage or mass effect. The noonan -white junction is well differentiated. Stable remote left thalamic and left sonia antonino lacunar injuri es. Scattered hypoattenuating areas are seen within the white matter. Cerebellum: Multiple bilateral lacunar injuries, similar to prior examinations. Mass effect: No evidence of midline shift. Intracranial vasculature: Atherosclerotic calcifications of the intracranial vessels. Soft tissues: Normal. Calvarium/osseous structures: No depressed skull fracture. Paranasal sinuses and mastoid air cells: Clear. Mastoid air cells are Clear Visualized orbits: Orbital contents are intact. IMPRESSION: 1. No acute intracranial process. 2. Remote lacunar injuries along with nonspecific white matter changes likely secondary to chronic mi croangiopathy.
[2022-11-13 20:47] LABS: Basophils % (A) 1 %; Eosinophils # (A) 0.1 k/uL (0-0.7); Eosinophils % (A) 1 %; HCT 34.7 % (34.0-46.0); HGB 11.3 gm/dL (11.4-16.0); Lymphocytes % (A) 28 %; MCH 33.1 pg (25.0-35.0); MCHC 32.7 g/dL (31.0-37.0); MCV 101.3 fL (80.0-100.0); Macrocytosis Slight; Mean Platelet Volume 8.3; Monocytes # (A) 0.5 k/uL (0-1.0); Monocytes % (A) 7 %; Neutrophils # (A) 4.6 k/uL (1.3-7.7); Neutrophils % (A) 63 %; RBC 3.43 m/uL (3.80-5.40); RDW 13.8 % (11.5-15.5); WBC 7.3 k/uL (3.8-10.6)
[2022-11-13 20:55] LABS: Platelet Count 198 k/uL (150-450)
[2022-11-13 20:59] LABS: Albumin 3.7 g/dL (3.5-5.0); Calcium 9.3 mg/dL (8.4-10.2); Potassium 5.3 mmol/L (3.5-5.1); Total Bilirubin 0.5 mg/dL (0.2-1.3); Total Protein 6.6 g/dL (6.3-8.2)
[2022-11-13 21:01] LABS: INR 1.1 (<1.2)
[2022-11-13] MEDS ORDERED: SODIUM CHLORIDE 0.9% 500 ML 500 ML IV ONE (23:00)
[2022-11-14 02:06] LABS: Appearance,Urine Clear (Clear); Bilirubin,Urine Negative (Negative); Blood,Urine Trace (Negative); Color,Urine Light Yellow; Glucose,Urine (UA) Trace (Negative); Hyaline Casts,Urine 1 /lpf (0-2); Ketones,Urine Negative (Negative); Leukocyte Esterase,Urine Large (Negative); Nitrite,Urine Negative (Negative); Protein,Urine 1+ (Negative); RBC,Urine 13 /hpf (0-5); Specific Gravity,Urine 1.009 (1.001-1.035); Squamous Epithelial Cell,Urine 1 /hpf (0-4); Urobilinogen,Urine <2.0 mg/dL (<2.0); WBC,Urine 136 /hpf (0-5)
[2022-11-14 02:07] LABS: Amphetamine Screen,Urine Not Detected (NotDetected); Barbiturate Screen,Urine Not Detected (NotDetected); Benzodiazepines Screen,Urine Not Detected (NotDetected); Cocaine Screen,Urine Not Detected (NotDetected); Methadone Screen, Urine Not Detected (NotDetected); Opiate Screen,Urine Not Detected (NotDetected); Oxycodone Screen, Urine Not Detected (NotDetected); Phencyclidine Screen,Urine Not Detected (NotDetected); Tricyclic Antidepressant,Urine Not Detected (NotDetected); Urn Cannabinoid Scrn Not Detected (NotDetected)
[2022-11-14] MEDS ORDERED: cefTRIAXone IN SWFI 1,000 MG/10 ML SYRINGE IVP STA (02:22)
[2022-11-14 03:03] VITALS: BP 148/78; PULSE 83; RESP 16
== END 2022-11-14 03:16 | disposition home or self-care (01) ==
LOC: EC 19:14
DX: N39.0 Urinary tract infection, site not specified (principal); E11.22 Type 2 diabetes mellitus with diabetic chronic kidney disease; I12.0 Hypertensive chronic kidney disease with stage 5 chronic kidney disease or end stage renal disease; N18.6 End stage renal disease; E78.5 Hyperlipidemia, unspecified; M19.90 Unspecified osteoarthritis, unspecified site; Z86.73 Personal history of transient ischemic attack (TIA), and cerebral infarction without residual deficits; F31.9 Bipolar disorder, unspecified; Z87.891 Personal history of nicotine dependence; Z99.2 Dependence on renal dialysis; Z88.0 Allergy status to penicillin; Z79.899 Other long term (current) drug therapy
CPT/HCPCS: 36415; 93005; 80053; 82140; 84484; 85025; 85610; 85730; 81001; 80306; 87086; 71046; 70450; 99285; 96374; 96361; J0696; 87077; 87186

== ENCOUNTER 2022-11-21 10:25 | Observation (INO) | payer MEDICARE, OTHER ==
--- NOTE | 2022-11-21 10:51 | ED ---
General Adult HPI - General Chief complaint: Altered Mental Status Stated complaint: AMS Time Seen by Provider: 11/21/22 10:39 Source: EMS, RN notes reviewed Mode of arrival: EMS Limitations: altered mental status - History of Present Illness Initial comments: 52-year-old female who is well-known to this emergency Department with an extensive past medical history Via EMS presents to the emergency department with a chief complaint of altered mental status. Patient resides at [facility] who reports that the patient has had difficulty raising her upper bilateral extremities. It is unsure of when her last known well was. History is limited due to patient AMS. - Related Data Home Medications Medication Instructions Recorded Confirmed Atorvastatin [Lipitor] 40 mg PO HS 03/23/21 11/21/22 Dulaglutide [Trulicity] 3 mg SQ WE 03/23/21 11/21/22 Calcium Acetate 667 mg PO MOWEFR@0800,1700 02/25/22 11/21/22 Sevelamer [Renvela] 1,600 mg PO BID 04/29/22 11/21/22 Zonisamide [Zonegran] 100 mg PO TID@0600,1500,2200 09/10/22 11/21/22 levETIRAcetam [Keppra] 500 mg PO BID@0900,199909/10/22 11/21/22 levETIRAcetam [Keppra] 500 mg PO MOWEFR@1600 09/10/22 11/21/22 Divalproex Sodium [Depakote] 500 mg PO BID@0900,199909/12/22 11/21/22 Divalproex Sodium [Depakote] 500 mg PO MOWEFR@1600 09/12/22 11/21/22 Metoprolol Tartrate [Lopressor] 25 mg PO MOWEFR@2100 11/13/22 11/21/22 Calcium Acetate 667 mg PO SUTUTHSA@08,13,17 11/21/22 11/21/22 Lacosamide [Vimpat] 150 mg PO MOWEFR@1600 11/21/22 11/21/22 Metoprolol Tartrate [Lopressor] 25 mg PO SUTUTHSA@0900,2100 11/21/22 11/21/22 icosapent ethyL [Icosapent Ethyl] 1 gm PO BID 11/21/22 11/21/22 Previous Rx's Medication Instructions Recorded Famotidine [Pepcid] 20 mg PO DAILY #30 tab 09/30/22 Lacosamide [Vimpat] 150 mg PO BID@09,1999 #6 tab 09/30/22 Allergies Allergy/AdvReac Type Severity Reaction Status Date / Time Penicillins Allergy Itching Verified 11/21/22 10:57 Review of Systems ROS Statement: Those systems with pertinent positive or pertinent negative responses have been documented in the HPI. ROS Other: All systems not noted in ROS Statement are negative. Past Medical History Past Medical History: Chest Pain / Angina, CVA/TIA, Diabetes Mellitus, GERD/Reflux, Hyperlipidemia, Hypertension, Memory Impairment, Osteoarthritis (OA), Renal Disease, Seizure Disorder, Thyroid Disorder Additional Past Medical History / Comment(s): Last seizure approximately one month ago. Spouse states she used to have seizures 4X per week until she had vagal nerve stimulator placed, now has seizures approximately once a week to once a month. Dialysis MOWEFR. Neuropathy, left drop foot, only able to walk short distances, otherwise uses wheelchair. 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 Never diagnosed with Sleep Apnea but spouse states she does stop breathing through the night and he has to shake her to start breathing again. Varicose veins. History of Any Multi-Drug Resistant Organisms: None Reported Past Surgical History: Section, Tonsillectomy, Uterine Ablation Additional Past Surgical History / Comment(s): Left arm fistula, loop recorder, vagus nerve stimulator. Past Anesthesia/Blood Transfusion Reactions: Motion Sickness Additional Past Anesthesia/Blood Transfusion Reaction / Comment(s): Family hx unknown, pt adopted. Past Psychological History: Bipolar Smoking Status: Former smoker Past Alcohol Use History: None Reported Past Drug Use History: None Reported - Past Family History Father Family Medical History: Unable to Obtain Additional Family Medical History / Comment(s): Pt adopted. General Exam - General Exam Comments Initial Comments: General: Alert, in no acute distress Head: atraumatic normocephalic. Eyes PERRL, EOMI intact, mucous membranes moist Respiratory: Lungs clear to auscultation bilaterally Cardiovascular: Heart rate regular rate and rhythm Abdominal: Soft without guarding or rebound Extremities: Normal inspection with full range of motion and normal capillary refill Neuroogic: alert and oriented 3, CN II-XII intact, able to ambulate with steady gait Skin: warm dry and intact with normal color Limitations: altered mental status Course Vital Signs 11/21/22 11/21/22 11/21/22 10:39 10:56 12:19 Temperature 76.8 F L 97.8 F Pulse Rate 89 87 Respiratory 18 18 Rate Blood Pressure 136/50 141/22 O2 Sat by Pulse 100 97 Oximetry 11/21/22 11/21/22 14:52 17:20 Temperature Pulse Rate 85 88 Respiratory 16 18 Rate Blood Pressure 145/83 166/84 O2 Sat by Pulse 97 97 Oximetry - Reevaluation(s) Reevaluation #1: 11/21/22 13:45 Patient updated and reevaluated. Case discussed with Dr. yousif, EMS who agrees and accepts the patient for admission with consult to neurology and nephrology EKG Findings - EKG Comments: EKG Findings:: I interpreted the following: EKG performed at 10:38 rate 89 bpm normal sinus rhythm LA interval 192, QRS duration 86, QT/QTc 359/406 Medical Decision Making - Medical Decision Making Was pt. sent in by a medical professional or institution (, PA, MEDICATION TECHNICIAN, urgent care, hospital, or fdc...) When possible be specific @ -[No] Did you speak to anyone other than the patient for history (EMS, parent, family, police, friend...)? What history was obtained from this source @ -[No] Did you review nursing and triage notes (agree or disagree)? Why? @ -[I reviewed and agree with nursing and triage notes] Were old charts reviewed (outside hosp., previous admission, EMS record, old EKG, old radiological studies, urgent care reports/EKG's, fdc records)? Report findings @ -[No old charts were reviewed] Differential Diagnosis (chest pain, altered mental status, abdominal pain women, abdominal pain men, vaginal bleeding, weakness, fever, dyspnea, syncope, he adache, dizziness, GI bleed, back pain, seizure, CVA, palpatations, mental health, musculoskeletal)? @ -[not applicable] EKG interpreted by me (3pts min.). @ -[As above] X-rays interpreted by me (1pt min.). @ -[None done] CT interpreted by me (1pt min.). @ -[None done] U/S interpreted by me (1pt. min.). @ -[None done] What testing was considered but not performed or refused? (CT, X-rays, U/S, labs)? Why? @ -[None] What meds were considered but not given or refused? Why? @ -[None] Did you discuss the management of the patient with other professionals (professionals i.e. , PA, MEDICATION TECHNICIAN, lab, RT, psych nurse, social services aide, environmental services manager, teacher, radiation officer, showcase maker)? Give summary @ -[No] Was smoking cessation discussed for >3mins.? @ -[No] Was critical care preformed (if so, how long)? @ -[No] Were there social determinants of health that impacted care today? How? (Homelessness, low income, unemployed, alcoholism, drug addiction, transportation, low edu. Level, literacy, decrease access to med. care, prison, rehab)? @ -[No] Was there de-escalation of care discussed even if they declined (Discuss DNR or withdrawal of care, Hospice)? DNR status @ -[No] What co-morbidities impacted this encounter? (DM, HTN, Smoking, COPD, CAD, Can cer, CVA, ARF, Chemo, Hep., AIDS, mental health diagnosis, sleep apnea, morbid obesity)? @ -[None] Was patient admitted / discharged? Hospital course, mention meds given and route, prescriptions, significant lab abnormalities, going to OR and other pertinent info. @ -Admission. 52-year-old male who presents the emergency department with altered mental status. Patient had a thorough history and physical exam performed patient remains to be afebrile heart rate regular rate and rhythm lungs clear to auscultation bilaterally abdomen is soft and nontender. Patient appears to be at her baseline mental status. He should had lab work and imaging performed on the ED: Labs remarkable for WBC 8.4, hemoglobin 11.7 likely dilation studies unremarkable sodium 138, potassium 5.4 BUNs 55, creatinine 8.6 Urinalysis appears cloudy 2+ proteins, small amount of blood, large leukocyte esterase, 93 rbc's, greater than 180-2 every few WBC clumps I discussed the results in detail with Dr. Flynn who agrees and accepts the patient for admission with consult to nephrology. Patient was due to have dialysis today however admits to her appointment due to being evaluated in the emergency department. Case discussed with Dr. Johnson [facility] who agrees with plan of car.e Undiagnosed new problem with uncertain prognosis? @ -[No] Drug Therapy requiring intensive monitoring for toxicity (Heparin, Nitro, Insulin, Cardizem)? @ -[No] Were any procedures done? @ -[No] Diagnosis/symptom? @ -Altered Mental Status - Hyperkalemia - Urinary Tract Infection - Missed Dialysis Acute, or Chronic, or Acute on Chronic? @ -acute Uncomplicated (without systemic symptoms) or Complicated (systemic symptoms)? @ -complicated Side effects of treatment? @ -[No] Exacerbation, Progression, or Severe Exacerbation? @ -[No] Poses a threat to life or bodily function? How? (Chest pain, USA, SD, pneumonia, PE, COPD, DKA, ARF, appy, cholecystitis, CVA, Diverticulitis, Homicidal, Suicidal, threat to staff... and all critical care pts) @ -low likelihood - Lab Data Result diagrams: 11/21/22 11:04 11/21/22 11:04 Lab Results 11/21/22 11/21/22 11/21/22 Range/Units 11:04 11:04 11:04 WBC 8.4 (3.8-10.6) k/uL RBC 3.64 L (3.80-5.40) m/uL Hgb 11.7 (11.4-16.0) gm/dL Hct 35.8 (34.0-46.0) % MCV 98.1 (80.0-100.0) fL MCH 32.2 (25.0-35.0) pg MCHC 32.8 (31.0-37.0) g/dL RDW 13.9 (11.5-15.5) % Plt Count 145 L (150-450) k/uL MPV 7.9 Neutrophils % 76 % Lymphocytes % 13 % Monocytes % 9 % Eosinophils % 1 % Basophils % 0 % Neutrophils # 6.4 (1.3-7.7) k/uL Lymphocytes # 1.1 (1.0-4.8) k/uL Monocytes # 0.7 (0-1.0) k/uL Eosinophils # 0.0 (0-0.7) k/uL Basophils # 0.0 (0-0.2) k/uL PT 11.4 (9.0-12.0) sec INR 1.1 (<1.2) APTT 24.6 (22.0-30.0) sec Sodium 138 (137-145) mmol/L Potassium 5.4 H (3.5-5.1) mmol/L Chloride 96 L (98-107) mmol/L Carbon Dioxide 30 (22-30) mmol/L Anion Gap 12 mmol/L BUN 55 H (7-17) mg/dL Creatinine 8.86 H* (0.52-1.04) mg/dL Est GFR (CKD-EPI)AfAm 5 (>60 ml/min/1.73 sqM) Est GFR (CKD-EPI)NonAf 5 (>60 ml/min/1.73 sqM) Glucose 106 H (74-99) mg/dL Calcium 9.2 (8.4-10.2) mg/dL Total Bilirubin 0.5 (0.2-1.3) mg/dL AST 29 (14-36) U/L ALT 24 (4-34) U/L Alkaline Phosphatase 73 (38-126) U/L Troponin I (0.000-0.034) ng/mL Total Protein 6.3 (6.3-8.2) g/dL Albumin 3.4 L (3.5-5.0) g/dL Urine Color Urine Appearance (Clear) Urine pH (5.0-8.0) Ur Specific [place] (1.001-1.035) Urine Protein (Negative) Urine Glucose (UA) (Negative) Urine Ketones (Negative) Urine Blood (Negative) Urine Nitrite (Negative) Urine Bilirubin (Negative) Urine Urobilinogen (<2.0) mg/dL Ur Leukocyte Esterase (Negative) Urine RBC (0-5) /hpf Urine WBC (0-5) /hpf Urine WBC Clumps (None) /hpf Ur Squamous Epith Cells (0-4) /hpf Urine Bacteria (None) /hpf 11/21/22 11/21/22 Range/Units 11:04 11:04 WBC (3.8-10.6) k/uL RBC (3.80-5.40) m/uL Hgb (11.4-16.0) gm/dL Hct (34.0-46.0) % MCV (80.0-100.0) fL MCH (25.0-35.0) pg MCHC (31.0-37.0) g/dL RDW (11.5-15.5) % Plt Count (150-450) k/uL MPV Neutrophils % % Lymphocytes % % Monocytes % % Eosinophils % % Basophils % % Neutrophils # (1.3-7.7) k/uL Lymphocytes # (1.0-4.8) k/uL Monocytes # (0-1.0) k/uL Eosinophils # (0-0.7) k/uL Basophils # (0-0.2) k/uL PT (9.0-12.0) sec INR (<1.2) APTT (22.0-30.0) sec Sodium (137-145) mmol/L Potassium (3.5-5.1) mmol/L Chloride (98-107) mmol/L Carbon Dioxide (22-30) mmol/L Anion Gap mmol/L BUN (7-17) mg/dL Creatinine (0.52-1.04) mg/dL Est GFR (CKD-EPI)AfAm (>60 ml/min/1.73 sqM) Est GFR (CKD-EPI)NonAf (>60 ml/min/1.73 sqM) Glucose (74-99) mg/dL Calcium (8.4-10.2) mg/dL Total Bilirubin (0.2-1.3) mg/dL AST (14-36) U/L ALT (4-34) U/L Alkaline Phosphatase (38-126) U/L Troponin I <0.012 (0.000-0.034) ng/mL Total Protein (6.3-8.2) g/dL Albumin (3.5-5.0) g/dL Urine Color Yellow Urine Appearance Cloudy H (Clear) Urine pH 8.5 H (5.0-8.0) Ur Specific [place] 1.014 (1.001-1.035) Urine Protein 2+ H (Negative) Urine Glucose (UA) Negative (Negative) Urine Ketones Negative (Negative) Urine Blood Small H (Negative) Urine Nitrite Negative (Negative) Urine Bilirubin Negative (Negative) Urine Urobilinogen <2.0 (<2.0) mg/dL Ur Leukocyte Esterase Large H (Negative) Urine RBC 93 H (0-5) /hpf Urine WBC >182 H (0-5) /hpf Urine WBC Clumps Few H (None) /hpf Ur Squamous Epith Cells 3 (0-4) /hpf Urine Bacteria Rare H (None) /hpf Disposition Clinical Impression: Altered mental status, Hyperkalemia, Missed dialysis Disposition: ADMITTED IP TO THIS HOSP Condition: Fair Time of Disposition: 18:50
[2022-11-21] MEDS ORDERED: SODIUM CHLORIDE 0.9% 500 ML 500 ML IV ONE (10:56)
[2022-11-21 11:32] LABS: Basophils % (A) 0 %; Eosinophils % (A) 1 %; HCT 35.8 % (34.0-46.0); HGB 11.7 gm/dL (11.4-16.0); Lymphocytes # (A) 1.1 k/uL (1.0-4.8); Lymphocytes % (A) 13 %; MCH 32.2 pg (25.0-35.0); MCHC 32.8 g/dL (31.0-37.0); MCV 98.1 fL (80.0-100.0); Mean Platelet Volume 7.9; Monocytes # (A) 0.7 k/uL (0-1.0); Monocytes % (A) 9 %; Neutrophils # (A) 6.4 k/uL (1.3-7.7); Neutrophils % (A) 76 %; Platelet Count 145 k/uL (150-450); RBC 3.64 m/uL (3.80-5.40); RDW 13.9 % (11.5-15.5); WBC 8.4 k/uL (3.8-10.6)
[2022-11-21 11:54] LABS: INR 1.1 (<1.2); Partial Thromboplastin Time 24.6 sec (22.0-30.0); Prothrombin Time 11.4 sec (9.0-12.0)
[2022-11-21 11:59] LABS: Albumin 3.4 g/dL (3.5-5.0); Calcium 9.2 mg/dL (8.4-10.2); Potassium 5.4 mmol/L (3.5-5.1); Total Bilirubin 0.5 mg/dL (0.2-1.3); Total Protein 6.3 g/dL (6.3-8.2)
--- NOTE | 2022-11-21 12:01 | XR ---
EXAMINATION TYPE: XR chest 2V DATE OF EXAM: 11/21/2022 COMPARISON: NONE TECHNIQUE: PA and lateral views submitted. HISTORY: Altered mental status FINDINGS: The lungs are clear and there is no pneumothorax, pleural effusion, or focal pneumonia. Heart size normal and no overt failure. Osseous structures intact. Upper cord are noted. Stimulator device noted . IMPRESSION: 1. No acute process.
[2022-11-21 13:05] LABS: Appearance,Urine Cloudy (Clear); Bacteria,Urine Rare /hpf; Bilirubin,Urine Negative (Negative); Blood,Urine Small (Negative); Color,Urine Yellow; Glucose,Urine (UA) Negative (Negative); Ketones,Urine Negative (Negative); Leukocyte Esterase,Urine Large (Negative); Nitrite,Urine Negative (Negative); PH, Urine 8.5 (5.0-8.0); Protein,Urine 2+ (Negative); RBC,Urine 93 /hpf (0-5); Specific Gravity,Urine 1.014 (1.001-1.035); Squamous Epithelial Cell,Urine 3 /hpf (0-4); Urobilinogen,Urine <2.0 mg/dL (<2.0); WBC,Urine >182 /hpf (0-5)
--- NOTE | 2022-11-21 14:32 | CT ---
EXAMINATION TYPE: CT brain wo con DATE OF EXAM: 11/21/2022 HISTORY: AMS CT DLP: 1143.4 mGycm. Automated Exposure Control for Dose Reduction was Utilized. TECHNIQUE: CT scan of the head is performed without contrast. COMPARISON: CT brain November 13, 2022. FINDINGS: There is no acute intracranial hemorrhage or midline shift identified. There is mild diff use ventricular and sulcal prominence redemonstrated. Mild low-attenuation in the periventricular whi te matter redemonstrated. The calvarium is intact. The globes are not imaged. The visualized sinuses are clear. IMPRESSION: No acute intracranial hemorrhage or midline shift. No significant change from most recen t prior CT.
[2022-11-21] MEDS ORDERED: NALOXONE 0.4 MG/ML 1 ML VIAL IV PRN (14:34)
[2022-11-21] MEDS ORDERED: levETIRAcetam 500 MG TAB PO SCH (16:00)
[2022-11-21] MEDS ORDERED: DIVALPROEX 500 MG TABLET.DR PO SCH (16:00)
[2022-11-21] MEDS ORDERED: LACOSAMIDE 150 MG TABLET PO SCH (16:00)
[2022-11-21] MEDS ORDERED: CALCIUM ACETATE 667 MG TAB PO SCH (17:00)
[2022-11-21] MEDS ORDERED: LEVOFLOXACIN 500MG-D5W PMX 500 MG in DEXTROSE/WATER 1 100ML.BAG IVPB ONE (17:00)
[2022-11-21] MEDS: ZONISAMIDE 100 MG CAP PO SCH ×2 (18:17→21:04)
[2022-11-21] MEDS: SEVELAMER 800 MG TAB PO SCH (18:18)
[2022-11-21] MEDS ORDERED: SODIUM ZIRCONIUM CYCLOSILICATE 10 GM PACKET PO ONE (18:40)
[2022-11-21] MEDS ORDERED: DEXTROSE 50% SYRINGE 50 ML IVP STA (18:41)
[2022-11-21] MEDS ORDERED: INSULIN REGULAR 100 UNIT/ML VIAL (IV) IV ONE (18:42)
[2022-11-21] MEDS ORDERED: FUROSEMIDE 10 MG/ML 10 ML VIAL IV STA (18:42)
--- NOTE | 2022-11-21 19:23 | P.HPIM ---
History of Present Illness H&P Date: 11/21/22 This is a 52-year-old female who presented to the emergency department via EMS from [facility] in the [place] where she has been staying with reports of altered mental status. Per nursing staff patient was having some extremity weakness and altered mentation difficulty to arouse this morning and sent here for further evaluation. Patient follows with Dr. Geoffrey Somers in the outpatient setting with a significant past medical history of seizures, angina, CVA/TIA, diabetes, GERD, hyperlipidemia, hypertension, memory impairment, end-stage renal disease, thyroid disorder with osteoarthritis. Patient normally does dialysis Monday/Monday/Monday and was found to have hyperkalemia as well as altered mentation on admission. Patient did have abnormal urine and will empirically start Levaquin as patient is not able to give much of a history that is currently nonverbal. Patient appears somewhat postictal and does follow with neurology outpatient. Patient does take a number of seizure medications and has been admitted previously multiple times for noncompliance of medications. Chest x-ray shows no acute process, EKG shows normal sinus rhythm with a heart rate of 89, and CT of the brain shows no acute intracranial hemorrhage or midline shift no significant change from most recent prior CT. Patient was admitted with altered mental status, missed dialysis, and hyperkalemia. Review Of Systems: Unable to completely assess as patient is nonverbal and alert and oriented 1 PHYSICAL EXAMINATION: GENERAL: The patient is alert and oriented x1, makes eye contact when voicing her name although nonverbal and unable to answer questions, elderly-appearing HEENT: Pupils are round and equally reacting to light. EOMI. no scleral icterus. No conjunctival pallor. Normocephalic, atraumatic. No pharyngeal erythema. No thyromegaly. CARDIOVASCULAR: S1 and S2 muffled PULMONARY: diminished breath sounds bilaterally with no wheezing or rhonchi noted. ABDOMEN: soft. Nontender on exam. non-distended, normoactive bowel sounds. No palpable organomegaly. MUSCULOSKELETAL: No joint swelling or deformity. EXTREMITIES: No cyanosis, clubbing, or pedal edema. NEUROLOGICAL: Gross neurological examination did not reveal any focal deficits. Appears somewhat postictal. Diffuse weakness SKIN: No rashes. Assessment: Altered mental status, possibly secondary to breakthrough seizure, multifa ctorial also a component of possible missed dialysis End-stage renal disease on hemodialysis Monday/Monday/Monday with missed dialysis today History of seizure disorder Hyperkalemia History of CVA/TIA Diabetes mellitus GERD Hyperlipidemia Hypertension Memory impairment Osteoarthritis GI prophylaxis DVT prophylaxis Former smoker Full code Plan: Recommend to continue with current medications and management and have consulted nephrology as patient is maintained on hemodialysis Monday/Monday/Monday and missed dialysis today Patient with hyperkalemia and being corrected will follow-up with repeat labs in the a.m. Patient comes from [facility] on the [place] and will be returning there, will consult case management along with PT/OT therapy Urine is abnormal on admission and does not make very much urine, will add empiric Levaquin Patient is altered and confused more than her baseline with significant seizure history and is nonverbal at this time The impression and plan of care has been dictated by Hodan Castillo, nurse practitioner as directed. Dr. Estelle MD I have performed a history and examination and MDM of this patient, discussed the same with the dictator, and agree with the dictator's assessment and plan as written ,documented as a scribe. Based on total visit time, I have performed more than 50% of the visit. Any additional findings or plans will be noted. Past Medical History Past Medical History: Chest Pain / Angina, CVA/TIA, Diabetes Mellitus, GERD/Reflux, Hyperlipidemia, Hypertension, Memory Impairment, Osteoarthritis (OA), Renal Disease, Seizure Disorder, Thyroid Disorder Additional Past Medical History / Comment(s): Last seizure approximately one month ago. Spouse states she used to have seizures 4X per week until she had vagal nerve stimulator placed, now has seizures approximately once a week to once a month. Dialysis MOWEFR. Neuropathy, left drop foot, only able to walk short distances, otherwise uses wheelchair. 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 Never diagnosed with Sleep Apnea but spouse states she does stop breathing through the night and he has to shake her to start breathing again. Varicose veins. History of Any Multi-Drug Resistant Organisms: None Reported Past Surgical History: Section, Tonsillectomy, Uterine Ablation Additional Past Surgical History / Comment(s): Left arm fistula, loop recorder, vagus nerve stimulator. Past Anesthesia/Blood Transfusion Reactions: Motion Sickness Additional Past Anesthesia/Blood Transfusion Reaction / Comment(s): Family hx unknown, pt adopted. Past Psychological History: Bipolar Smoking Status: Former smoker Past Alcohol Use History: None Reported Past Drug Use History: None Reported - Past Family History Father Family Medical History: Unable to Obtain Additional Family Medical History / Comment(s): Pt adopted. 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 Driving History Currently uses [employer] for employment (including self-employed).: No Medications and Allergies Home Medications Medication Instructions Recorded Confirmed Type Atorvastatin [Lipitor] 40 mg PO HS 03/23/21 11/21/22 History Dulaglutide [Trulicity] 3 mg SQ WE 03/23/21 11/21/22 History Calcium Acetate 667 mg PO MOWEFR@0800,1700 02/25/22 11/21/22 History Sevelamer [Renvela] 1,600 mg PO BID 04/29/22 11/21/22 History Zonisamide [Zonegran] 100 mg PO TID@0600,1500,2200 09/10/22 11/21/22 History levETIRAcetam [Keppra] 500 mg PO BID@0900,199909/10/22 11/21/22 History levETIRAcetam [Keppra] 500 mg PO MOWEFR@1600 09/10/22 11/21/22 History Divalproex Sodium [Depakote] 500 mg PO BID@0900,199909/12/22 11/21/22 History Divalproex Sodium [Depakote] 500 mg PO MOWEFR@1600 09/12/22 11/21/22 History Famotidine [Pepcid] 20 mg PO DAILY #30 tab 09/30/22 11/21/22 Rx Lacosamide [Vimpat] 150 mg PO BID@0900,1999 #6 tab 09/30/22 11/21/22 Rx Metoprolol Tartrate [Lopressor] 25 mg PO MOWEFR@209911/13/22 11/21/22 History Calcium Acetate 667 mg PO SUTUTHSA@08,13,11/21/22 11/21/22 History Lacosamide [Vimpat] 150 mg PO MOWEFR@1600 11/21/22 11/21/22 History Metoprolol Tartrate [Lopressor] 25 mg PO SUTUTHSA@0900,209911/21/22 11/21/22 History icosapent ethyL [Icosapent Ethyl] 1 gm PO BID 11/21/22 11/21/22 History Allergies Allergy/AdvReac Type Severity Reaction Status Date / Time Penicillins Allergy Itching Verified 11/21/22 10:57 Physical Exam Vitals: Vital Signs Temp Pulse Pulse Resp BP BP Pulse Ox 11/21/22 17:40 98.6 F 81 157/76 97 11/21/22 17:20 88 18 166/84 97 11/21/22 14:52 85 16 145/83 97 11/21/22 12:19 87 18 141/22 97 11/21/22 10:56 97.8 F 11/21/22 10:39 76.8 F L 89 18 136/50 100 Intake and Output 11/21/22 11/21/22 11/21/22 06:59 14:59 22:59 Other: Weight 68.039 kg Results CBC & Chem 7: 11/21/22 11:04 11/21/22 11:04 Labs: Abnormal Lab Results - Last 24 Hours (Table) 11/21/22 11/21/22 11/21/22 Range/Units 11:04 11:04 11:04 RBC 3.64 L (3.80-5.40) m/uL Plt Count 145 L (150-450) k/uL Potassium 5.4 H (3.5-5.1) mmol/L Chloride 96 L (98-107) mmol/L BUN 55 H (7-17) mg/dL Creatinine 8.86 H* (0.52-1.04) mg/dL Glucose 106 H (74-99) mg/dL Albumin 3.4 L (3.5-5.0) g/dL Urine Appearance Cloudy H (Clear) Urine pH 8.5 H (5.0-8.0) Urine Protein 2+ H (Negative) Urine Blood Small H (Negative) Ur Leukocyte Esterase Large H (Negative) Urine RBC 93 H (0-5) /hpf Urine WBC >182 H (0-5) /hpf Urine WBC Clumps Few H (None) /hpf Urine Bacteria Rare H (None) /hpf Thrombosis Risk Factor Assmnt - DVT/VTE Prophylaxis DVT/VTE Prophylaxis: Pharmacologic Prophylaxis ordered Assessment and Plan Time with Patient: Greater than 30
[2022-11-21] MEDS: PATIENT'S OWN (Icosapent Ethyl [Icosapent Ethyl] 1 GM Capsule) PO SCH (20:29)
[2022-11-21 20:58] LABS: Glucose,Whole Blood 143 mg/dL (70-110)
[2022-11-21] MEDS: DIVALPROEX 500 MG TABLET.DR PO SCH (21:00)
[2022-11-21] MEDS ORDERED: METOPROLOL TARTRATE 25 MG TAB PO SCH (21:00)
[2022-11-21] MEDS ORDERED: ATORVASTATIN 40 MG TAB PO SCH (21:00)
[2022-11-21] MEDS: levETIRAcetam 500 MG TAB PO SCH (21:06)
[2022-11-21] MEDS: LACOSAMIDE 150 MG TABLET PO SCH (21:14)
[2022-11-22] MEDS: ZONISAMIDE 100 MG CAP PO SCH ×2 (05:58→15:28)
[2022-11-22] MEDS: SEVELAMER 800 MG TAB PO SCH (07:44)
[2022-11-22 08:01] VITALS: RESP 16
[2022-11-22] MEDS ORDERED: METOPROLOL TARTRATE 25 MG TAB PO SCH (09:00)
[2022-11-22] MEDS ORDERED: FAMOTIDINE 20 MG TAB PO SCH (09:00)
--- NOTE | 2022-11-22 10:30 | P.NPCON ---
History of Present Illness - Reason for Consult end stage renal disease - History of Present Illness Reason for consultation: End-stage renal disease History of present illness: Patient is a 52-year-old female seen in renal consultation for end-stage renal disease. She is making on hemodialysis on Monday schedule. Patient did not lose dialysis yesterday and will be getting a treatment today. She was sent to the hospital from [facility] due to altered mental status. Patient was having a difficult time raising her upper extremities and was sent to the hospital. Patient has history of stroke for dysarthria and is not a reliable historian. Hemodynamically stable. Brain CT showed no acute changes. Patient does have history of recurrent seizures and is maintained on antiepileptics. No fever or chills. She is on room air. Denies chest pain or shortness of breath. No vomiting or diarrhea. Vital signs are stable. General: No acute distress. HEENT: Head exam is unremarkable. LUNGS: No audible rhonchi or wheezes. HEART: Rate and Rhythm are regular. ABDOMEN: Nontender. EXTREMITITES: No edema. Past Medical History Past Medical History: Chest Pain / Angina, CVA/TIA, Diabetes Mellitus, GERD/Reflux, Hyperlipidemia, Hypertension, Memory Impairment, Osteoarthritis (OA), Renal Disease, Seizure Disorder, Thyroid Disorder Additional Past Medical History / Comment(s): Last seizure approximately one month ago. Spouse states she used to have seizures 4X per week until she had vagal nerve stimulator placed, now has seizures approximately once a week to once a month. Dialysis MOWEFR. Neuropathy, left drop foot, only able to walk short distances, otherwise uses wheelchair. 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 Never diagnosed with Sleep Apnea but spouse states she does stop breathing through the night and he has to shake her to start breathing again. Varicose veins. History of Any Multi-Drug Resistant Organisms: None Reported Past Surgical History: Section, Tonsillectomy, Uterine Ablation Additional Past Surgical History / Comment(s): Left arm fistula, loop recorder, vagus nerve stimulator. Past Anesthesia/Blood Transfusion Reactions: Motion Sickness Additional Past Anesthesia/Blood Transfusion Reaction / Comment(s): Family hx unknown, pt adopted. Smoking Status: Former smoker - Past Family History Father Family Medical History: Unable to Obtain Additional Family Medical History / Comment(s): Pt adopted. Medications and Allergies Home Medications Medication Instructions Recorded Confirmed Type Atorvastatin [Lipitor] 40 mg PO HS 03/23/21 11/21/22 History Dulaglutide [Trulicity] 3 mg SQ WE 03/23/21 11/21/22 History Calcium Acetate 667 mg PO MOWEFR@0800,1700 02/25/22 11/21/22 History Sevelamer [Renvela] 1,600 mg PO BID 04/29/22 11/21/22 History Zonisamide [Zonegran] 100 mg PO TID@0600,1500,2200 09/10/22 11/21/22 History levETIRAcetam [Keppra] 500 mg PO BID@0900,199909/10/22 11/21/22 History levETIRAcetam [Keppra] 500 mg PO MOWEFR@1600 09/10/22 11/21/22 History Divalproex Sodium [Depakote] 500 mg PO BID@0900,199909/12/22 11/21/22 History Divalproex Sodium [Depakote] 500 mg PO MOWEFR@1600 09/12/22 11/21/22 History Famotidine [Pepcid] 20 mg PO DAILY #30 tab 09/30/22 11/21/22 Rx Lacosamide [Vimpat] 150 mg PO BID@0900,1999 #6 tab 09/30/22 11/21/22 Rx Metoprolol Tartrate [Lopressor] 25 mg PO MOWEFR@209911/13/22 11/21/22 History Calcium Acetate 667 mg PO SUTUTHSA@08,13,17 11/21/22 11/21/22 History Lacosamide [Vimpat] 150 mg PO MOWEFR@1600 11/21/22 11/21/22 History Metoprolol Tartrate [Lopressor] 25 mg PO SUTUTHSA@0900,209911/21/22 11/21/22 History icosapent ethyL [Icosapent Ethyl] 1 gm PO BID 11/21/22 11/21/22 History Allergies Allergy/AdvReac Type Severity Reaction Status Date / Time Penicillins Allergy Itching Verified 11/21/22 10:57 Physical Exam Vitals: Vital Signs Temp Pulse Pulse Resp BP BP Pulse Ox 11/22/22 08:45 97 11/22/22 07:43 98.0 F 79 16 133/67 99 11/22/22 04:32 98.2 F 83 17 135/81 97 11/21/22 20:09 98.3 F 82 17 153/79 96 11/21/22 17:40 98.6 F 81 157/76 97 11/21/22 17:20 88 18 166/84 97 11/21/22 14:52 85 16 145/83 97 11/21/22 12:19 87 18 141/22 97 11/21/22 10:56 97.8 F 11/21/22 10:39 76.8 F L 89 18 136/50 100 Intake and Output 11/21/22 11/22/22 11/22/22 22:59 06:59 14:59 Other: # Voids 0 0 # Bowel Movements 0 1 Weight 68.039 kg Results - Lab Results Most recent lab results Calcium 9.2 mg/dL (8.4-10.2) 11/21/22 11:04 11/21/22 11:04 11/21/22 20:52 Assessment and Plan Plan: Assessment: 1. End-stage renal disease maintained on hemodialysis on Monday schedule. 2. Mild hyperkalemia secondary to chronic kidney disease and missed dialysis treatment. 3. History of seizures. 4. Chronic kidney disease mineral bone disease maintained on phosphate binders. 5. History of stroke. 6. Pyuria on antibiotics. Plan: Hemodialysis today and again tomorrow. Check phosphorus level. Hemoglobin at goal. Thank you for the consultation. I will continue to follow the patient with you during her hospital stay.
[2022-11-22 10:46] LABS: Basophils # (A) 0.04 X 10*3/uL (0.00-0.10); Basophils % (A) 0.6 %; Eosinophils # (A) 0.03 X 10*3/uL (0.04-0.35); Eosinophils % (A) 0.4 %; HCT 31.9 % (37.2-46.3); HGB 10.3 g/dL (12.0-15.0); Immature Grans, Automated 0.3 %; Lymphocytes % (A) 26.7 %; MCH 32.6 pg (27.0-32.0); MCHC 32.3 g/dL (32.0-37.0); MCV 100.9 fL (80.0-97.0); Mean Platelet Volume 10.7 fL (9.5-12.2); Monocytes # (A) 0.93 X 10*3/uL (0.20-1.00); Monocytes % (A) 13.8 %; NRBC Per 100 WBC 0 /100 WBCS (0.0-0.0); Neutrophils # (A) 3.91 X 10*3/uL (1.80-7.70); Neutrophils % (A) 58.2 %; Platelet Count 145 X 10*3/uL (140-440); RBC 3.16 X 10*6/uL (4.10-5.20); RDW 13.7 % (11.5-14.5); WBC 6.73 X 10*3/uL (4.50-10.00)
[2022-11-22] MEDS: DIVALPROEX 500 MG TABLET.DR PO SCH (10:47)
[2022-11-22] MEDS: CALCIUM ACETATE 667 MG TAB PO SCH ×2 (10:47→15:13)
[2022-11-22] MEDS: PATIENT'S OWN (Icosapent Ethyl [Icosapent Ethyl] 1 GM Capsule) PO SCH (10:48)
[2022-11-22] MEDS: levETIRAcetam 500 MG TAB PO SCH (10:49)
[2022-11-22 11:08] LABS: African American GFR (CKD) 4.7 (60.0-200.0); Anion Gap 15.8 mmol/L (10.00-18.00); BUN/Creat Ratio 6.66 Ratio (12.00-20.00); Blood Urea Nitrogen 65.3 mg/dL (9.0-27.0); Calcium 9.1 mg/dL (8.7-10.3); Carbon Dioxide 24.2 mmol/L (20.0-27.5); Potassium 5.3 mmol/L (3.5-5.5)
[2022-11-22] MEDS: LACOSAMIDE 150 MG TABLET PO SCH (12:03)
[2022-11-22 14:40] VITALS: BP 155/81; PULSE 77; TEMP 98.1
--- NOTE | 2022-11-22 15:08 | P.DS ---
Providers Date of admission: 11/21/22 13:31 Expected date of discharge: 11/22/22 Attending physician: Km Escoto MD Consults: 11/21/22 13:52 Consult Physician Urgent Consulting Provider: Martínez Mcgovern Consult Reason/Comments: esrd, ams Do you want consulting provider notified?: Yes Primary care physician: Geoffrey Somers Hospital Course: Final diagnosis Altered mental status, possibly secondary to breakthrough seizure, multifactorial also a component of possible missed dialysis, improved End-stage renal disease on hemodialysis Monday/Monday/Monday with missed di alysis Possible acute urinary tract infection, present on admission History of seizure disorder Hyperkalemia, improved History of CVA/TIA Diabetes mellitus GERD Hyperlipidemia Hypertension Memory impairment Osteoarthritis GI prophylaxis DVT prophylaxis Former smoker Full code Discharge disposition Patient is being discharged in a stable condition with guarded prognosis to [facility] on the [place] . Patient will follow-up with Dr. Taylor in the outpatient setting upon discharge. Patient is to continue with hemodialysis as scheduled on Monday/Monday/Monday. Patient to continue with oral Levaquin 250 mg every other day for the next 10 days to complete a five-day course. Total time taken is greater than 35 minutes. Hospital course This is a 52-year-old female who was recently admitted with altered mental status, concerns of possible acute urinary tract infection, present on admission. Patient appears to have had a possible seizure breakthrough seizure and is maintained on seizure medication including Vimpat and Keppra and have been resumed. Patient's mentation is much improved today and schedule to receive hemodialysis. Nephrology recommending continuing same course of maicol tment on Monday/Monday/Monday. Patient is currently afebrile denies chest pain or shortness of breath and will go back to ECF today. Patient and at the bedside with concerns of requesting possible hospice or other options and discuss with the about obtaining guardianship as patient reports she was told she is not able to make these decisions on her own. Urinalysis was abnorma l and urine culture sent and was started on Levaquin and will continue Levaquin 250 mg every other day for 5 doses to complete the course. Currently no reports of chest pain, shortness of breath, or palpitations. Patient is afebrile. No reports of nausea or vomiting and patient is tolerating diet. Patient will be discharged to [facility] [place] the [place] today. Guarded prognosis and high risk for readmissions given patient's significant comorbidities. Physical exam: Gen: This is a 52-year-old female who is awake, alert and oriented 2-3, baseline, well-developed, elderly-appearing HEENT: Head is atraumatic, normocephalic. Pupils equal, round. Sclerae is anicteric. NECK: Supple. No JVD. No lymphadenopathy. No thyromegaly. LUNGS: Clear to auscultation. No wheezes or rhonchi. No intercostal retractions. HEART: Regular rate and rhythm. No murmur. ABDOMEN: Soft. Bowel sounds are present. No masses. No tenderness. EXTREMITIES: No pedal edema. No calf tenderness. NEUROLOGICAL: Patient is awake, alert and oriented x2. Cranial nerves 2 through 12 are grossly intact. Please refer to medication reconciliation sheet for a list of medications. The impression and plan of care has been dictated by Hodan Castillo, Nurse Practitioner as directed. Dr. Estelle MD I have performed a history and examination and MDM of this patient, discussed the same with the dictator, and agree with the dictator's assessment and plan as written ,documented as a scribe. Based on total visit time, I have performed more than 50% of the visit. Patient Condition at Discharge: Fair Plan - Discharge Summary New Discharge Prescriptions: New Levofloxacin [Levaquin] 250 mg PO Q48H 5 Days #5 tablet Continue Atorvastatin [Lipitor] 40 mg PO HS Calcium Acetate 667 mg PO MOWEFR@0800,1700 Sevelamer [Renvela] 1,600 mg PO BID levETIRAcetam [Keppra] 500 mg PO BID@ Divalproex Sodium [Depakote] 500 mg PO MOWEFR@1600 Metoprolol Tartrate [Lopressor] 25 mg PO MOWEFR@2100 Lacosamide [Vimpat] 150 mg PO BID@ #6 tab Dulaglutide [Trulicity] 3 mg SQ WE Zonisamide [Zonegran] 100 mg PO TID@0600,1500,2200 levETIRAcetam [Keppra] 500 mg PO MOWEFR@1600 Divalproex Sodium [Depakote] 500 mg PO BID@899,1999 Famotidine [Pepcid] 20 mg PO DAILY #30 tab icosapent ethyL [Icosapent Ethyl] 1 gm PO BID Metoprolol Tartrate [Lopressor] 25 mg PO SUTUTHSA@00,2099 Calcium Acetate 667 mg PO SUTUTHSA@,,17 Changed Lacosamide [Vimpat] 150 mg PO MOWEFR@1599 #4 tab Discharge Medication List Atorvastatin [Lipitor] 40 mg PO HS 03/23/21 [History] Dulaglutide [Trulicity] 3 mg SQ WE 03/23/21 [History] Calcium Acetate 667 mg PO MOWEFR@0800,1700 02/25/22 [History] Sevelamer [Renvela] 1,600 mg PO BID 04/29/22 [History] Zonisamide [Zonegran] 100 mg PO TID@0600,1500,2200 09/10/22 [History] levETIRAcetam [Keppra] 500 mg PO BID@0900,199909/10/22 [History] levETIRAcetam [Keppra] 500 mg PO MOWEFR@159909/10/22 [History] Divalproex Sodium [Depakote] 500 mg PO BID@0900,199909/12/22 [History] Divalproex Sodium [Depakote] 500 mg PO MOWEFR@1600 09/12/22 [History] Famotidine [Pepcid] 20 mg PO DAILY #30 tab 09/30/22 [Rx] Metoprolol Tartrate [Lopressor] 25 mg PO MOWEFR@209911/13/22 [History] Calcium Acetate 667 mg PO SUTUTHSA@,13,17 11/21/22 [History] Metoprolol Tartrate [Lopressor] 25 mg PO SUTUTHSA@0900,209911/21/22 [History] icosapent ethyL [Icosapent Ethyl] 1 gm PO BID 11/21/22 [History] Lacosamide [Vimpat] 150 mg PO BID@899,1999 #6 tab 11/22/22 [Rx] Lacosamide [Vimpat] 150 mg PO MOWEFR@1599 #4 tab 11/22/22 [Rx] Levofloxacin [Levaquin] 250 mg PO Q48H 5 Days #5 tablet 11/22/22 [Rx] Follow up Appointment(s)/Referral(s): Gabriel Taylor MD [STAFF PHYSICIAN] - 1-2 days Activity/Diet/Wound Care/Special Instructions: Patient is returning to [facility] [place] the [place] Activity as tolerated Recommend continue with hemodialysis on Monday/Monday/Monday Patient discussed further with case management/social work and physician about options of possible hospice Discussed with about obtaining guardianship Continue taking Levaquin 250 mg every other day for 5 doses Discharge Disposition: TRANSFER TO SNF/ECF
[2022-11-23] MEDS ORDERED: PATIENT'S OWN (Dulaglutide [Trulicity] 3 MG/0.5 ML Each) SQ SCH (09:00)
[2022-11-23] MEDS ORDERED: LEVOFLOXACIN 250MG-D5W PMX 250 MG in DEXTROSE/WATER 1 50ML.BAG IVPB SCH (17:00)
== END 2022-11-22 16:45 ==
LOC: EC 10:25 → 6NMEDSUR 13:31
PROVIDERS: ADMIT Internal Medicine; ATTEND Internal Medicine
DX: R41.82 Altered mental status, unspecified (principal); I12.0 Hypertensive chronic kidney disease with stage 5 chronic kidney disease or end stage renal disease; N18.6 End stage renal disease; Z99.2 Dependence on renal dialysis; G40.909 Epilepsy, unspecified, not intractable, without status epilepticus; E87.5 Hyperkalemia; Z91.158 Patient's noncompliance with renal dialysis for other reason; E11.42 Type 2 diabetes mellitus with diabetic polyneuropathy; R82.81 Pyuria; K21.9 Gastro-esophageal reflux disease without esophagitis; M19.90 Unspecified osteoarthritis, unspecified site; E78.5 Hyperlipidemia, unspecified; R41.3 Other amnesia; M21.372 Foot drop, left foot; I83.90 Asymptomatic varicose veins of unspecified lower extremity; F31.9 Bipolar disorder, unspecified; E07.9 Disorder of thyroid, unspecified; M89.8X9 Other specified disorders of bone, unspecified site; Z79.85 Long-term (current) use of injectable non-insulin antidiabetic drugs; Z79.899 Other long term (current) drug therapy; Z88.0 Allergy status to penicillin; Z86.73 Personal history of transient ischemic attack (TIA), and cerebral infarction without residual deficits; Z98.891 History of uterine scar from previous surgery; Z96.82 Presence of neurostimulator; Z95.818 Presence of other cardiac implants and grafts; Z87.891 Personal history of nicotine dependence
CPT/HCPCS: 96365; 96375; 96361; 99285; 36415; 94760; 93005; 97162; 97166; 92610; 80053; 80048; 84100; 84132; 84484; 85025 ×2; 85610; 85730; 81001; 87086; 71046; 70450; G0378 ×2; J1940; J1956

== ENCOUNTER 2022-12-03 18:50 | Emergency (ER) | payer MEDICARE, OTHER ==
[2022-12-03 19:01] VITALS: PULSE 87; RESP 16; TEMP 98
--- NOTE | 2022-12-03 19:39 | CT ---
EXAMINATION TYPE: CT brain topher hansen DATE OF EXAM: 12/03/2022 COMPARISON: 123 HISTORY: pain after fall. hx of CVA/TIA CT DLP: 1355.[address] of the brain was performed. The ventricles, basal cisterns and sulci overlying the cerebral convexities demonstrate mild enlargem ent. There is no evidence for intracranial hemorrhage or sulcal effacement. There is decreased attenuatio n about the periventricular white matter and deep white matter of both cerebral hemispheres, compatib le with chronic small vessel ischemia. No mass effects are seen. If symptoms persist consider MRI. Osseous calvarium is intact. IMPRESSION: 1. Age related atrophic and chronic small vessel ischemic change without acute intracranial process seen at this time. CT Cervical Spine: Unenhanced CT of the cervical spine was performed with bone and soft tissue window settings submitted . Coronal and sagittal reconstruction is obtained. There is normal alignment and prevertebral soft tissues. No evidence for acute cervical fracture . Scattered degenerative disc disease and spondylosis. Biapical scarring. IMPRESSION: 1. No evidence for acute fracture or subluxation of the cervical spine.
--- NOTE | 2022-12-03 19:54 | XR ---
EXAMINATION TYPE: XR pelvis AP view DATE OF EXAM: 12/03/2022 CLINICAL HISTORY: pain TECHNIQUE: Single view the pelvis is submitted. FINDINGS: No evidence for fracture, dislocation or bony lesion. Joint spaces are well-preserved. S I joints appear symmetric. IMPRESSION: 1. No acute fracture or dislocation seen. ICD 10 NO FRACTURE, INITIAL EVALUATION
[2022-12-03 20:03] VITALS: BP 175/152
--- NOTE | 2022-12-03 20:06 | XR ---
EXAMINATION TYPE: XR chest 1V portable DATE OF EXAM: 12/03/2022 COMPARISON: 11/21/2022 HISTORY: Shortness of breath TECHNIQUE: Frontal and lateral views of the chest are obtained. FINDINGS: Scattered senescent parenchymal changes noted. Hyperinflation compatible with COPD. No evidence for infiltrate. No evidence for atelectasis. Heart size is stable. Mediastinal structures are stable and grossly unremarkable. No evidence for hilar prominence. Degenerative changes dorsal spine. IMPRESSION: 1. No evidence for acute pulmonary disease.
--- NOTE | 2022-12-03 20:50 | ED ---
Fall HPI - General Chief Complaint: Fall Stated Complaint: FALL Time Seen by Provider: 12/03/22 19:00 Source: EMS, RN notes reviewed, old records reviewed Mode of arrival: EMS Limitations: no limitations - History of Present Illness Initial Comments: This is a 52-year-old female to the emergency department for evaluation patient from [facility] care facility. Patient has a fall fall from standing with head injury. Patient underwent is fall complaining of headache no other acute injury noted. Patient is a poor strain. History obtained from EMS and patient's chart MD Complaint: fall -: hour(s) Fall From: standing When Fall Occurred: 1-3 hours [employer] Fall Witnessed: no Place Fall Occurred: home Loss of Consciousness: none Prolonged Down Time?: no Symptoms Prior to Fall: none Severity: severe Severity scale (1-10): 5 Quality: sharp Context: tripped/slipped Associated Symptoms: denies - Related Data Home Medications Medication Instructions Recorded Confirmed Atorvastatin [Lipitor] 40 mg PO HS 03/23/21 11/21/22 Dulaglutide [Trulicity] 3 mg SQ WE 03/23/21 11/21/22 Calcium Acetate 667 mg PO MOWEFR@0800,1700 02/25/22 11/21/22 Sevelamer [Renvela] 1,600 mg PO BID 04/29/22 11/21/22 Zonisamide [Zonegran] 100 mg PO TID@0600,1500,2200 09/10/22 11/21/22 levETIRAcetam [Keppra] 500 mg PO BID@0900,199909/10/22 11/21/22 levETIRAcetam [Keppra] 500 mg PO MOWEFR@1600 09/10/22 11/21/22 Divalproex Sodium [Depakote] 500 mg PO BID@0900,199909/12/22 11/21/22 Divalproex Sodium [Depakote] 500 mg PO MOWEFR@1600 09/12/22 11/21/22 Metoprolol Tartrate [Lopressor] 25 mg PO MOWEFR@2100 11/13/22 11/21/22 Calcium Acetate 667 mg PO SUTUTHSA@08,13,17 11/21/22 11/21/22 Metoprolol Tartrate [Lopressor] 25 mg PO SUTUTHSA@0900,2100 11/21/22 11/21/22 icosapent ethyL [Icosapent Ethyl] 1 gm PO BID 11/21/22 11/21/22 Previous Rx's Medication Instructions Recorded Famotidine [Pepcid] 20 mg PO DAILY #30 tab 09/30/22 Lacosamide [Vimpat] 150 mg PO BID@0900,2000 #6 tab 11/22/22 Lacosamide [Vimpat] 150 mg PO MOWEFR@1600 #4 tab 11/22/22 Levofloxacin [Levaquin] 250 mg PO Q48H 5 Days #5 tablet 11/22/22 Allergies Allergy/AdvReac Type Severity Reaction Status Date / Time Penicillins Allergy Itching Verified 12/03/22 19:02 Review of Systems ROS Statement: Those systems with pertinent positive or pertinent negative responses have been documented in the HPI. ROS Other: All systems not noted in ROS Statement are negative. Past Medical History Past Medical History: Chest Pain / Angina, CVA/TIA, Diabetes Mellitus, GERD/Reflux, Hyperlipidemia, Hypertension, Memory Impairment, Osteoarthritis (OA), Renal Disease, Seizure Disorder, Thyroid Disorder Additional Past Medical History / Comment(s): Last seizure approximately one month ago. Spouse states she used to have seizures 4X per week until she had vagal nerve stimulator placed, now has seizures approximately once a week to once a month. Dialysis MOWEFR. Neuropathy, left drop foot, only able to walk short distances, otherwise uses wheelchair. 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 Never diagnosed with Sleep Apnea but spouse states she does stop breathing through the night and he has to shake her to start breathing again. Varicose veins. History of Any Multi-Drug Resistant Organisms: None Reported Past Surgical History: Section, Tonsillectomy, Uterine Ablation Additional Past Surgical History / Comment(s): Left arm fistula, loop recorder, vagus nerve stimulator. Past Anesthesia/Blood Transfusion Reactions: Motion Sickness Additional Past Anesthesia/Blood Transfusion Reaction / Comment(s): Family hx unknown, pt adopted. Past Psychological History: Bipolar Smoking Status: Former smoker - Past Family History Father Family Medical History: Unable to Obtain Additional Family Medical History / Comment(s): Pt adopted. General Exam Limitations: no limitations General appearance: alert, in no apparent distress, anxious Head exam: Present: atraumatic, normocephalic, normal inspection Eye exam: Present: normal appearance, PERRL, EOMI. Absent: scleral icterus, conjunctival injection, periorbital swelling ENT exam: Present: normal exam, mucous membranes moist Neck exam: Present: normal inspection. Absent: tenderness, meningismus, lymphadenopathy Respiratory exam: Present: normal lung sounds bilaterally. Absent: respiratory distress, wheezes, rales, rhonchi, stridor Cardiovascular Exam: Present: regular rate, normal rhythm, normal heart sounds. Absent: systolic murmur, diastolic murmur, rubs, gallop, clicks GI/Abdominal exam: Present: soft, normal bowel sounds. Absent: distended, tenderness, guarding, rebound, rigid Extremities exam: Present: normal inspection, full ROM, normal capillary refill. Absent: tenderness, pedal edema, joint swelling, calf tenderness Back exam: Present: normal inspection Neurological exam: Present: alert, oriented X3, CN II-XII intact Psychiatric exam: Present: normal affect, normal mood Skin exam: Present: warm, dry, intact, normal color. Absent: rash Course Vital Signs 12/03/22 12/03/22 12/03/22 18:54 19:00 19:30 Temperature 98.0 F Pulse Rate 87 Respiratory 16 Rate Blood Pressure 175/109 175/109 168/88 O2 Sat by Pulse 100 100 99 Oximetry 12/03/22 20:00 Temperature Pulse Rate Respiratory Rate Blood Pressure 175/152 O2 Sat by Pulse 99 Oximetry - Reevaluation(s) Reevaluation #1: 12/03/22 22:22 Medical record is reviewed Reevaluation #2: 12/03/22 22:22 Patient symptoms are improved here in the ER Reevaluation #3: 12/03/22 22:22 Patient informed results questions are answered Reevaluation #4: 12/03/22 22:23 Was pt. sent in by a medical professional or institution? @ -no Did you speak to anyone other than the patient for history? @ -no Did you review nursing and triage notes? @ -agree Were old charts reviewed? @ -no Differential Diagnosis? @ -prior EKG interpreted by me (3pts min.)? @ -yes X-rays interpreted by me (1pt min.)? @ -yes CT interpreted by me (1pt min.)? @ -no U/S interpreted by me (1pt. min.)? @ -no What testing was considered but not performed? (CT, X-rays, U/S, labs)? Why? @ -no What meds were considered but not given? Why? @ -no Did you discuss the management of the patient with other professionals? @ -no Did you reconcile home meds? @ -no Was smoking cessation discussed for >3mins.? @ -no Was critical care preformed (if so, how long)? @ -no Were there social determinants of health that impacted care today? How? (Homelessness, low income, unemployed, alcoholism, drug addiction, transportation, low edu. Level, literacy, decrease access to med. care, alf, rehab)? @ -no Was there de-escalation of care discussed even if they declined? (Discuss DNR or withdrawal of care, Hospice)? @ -no What co-morbidities impacted this encounter? (DM, HTN, Smoking, COPD, CAD, Cancer, CVA, Hep., AIDS, mental health diagnosis, sleep apnea, morbid obesity)? @ -none Was patient admitted / discharged? @ -dc Undiagnosed new problem with uncertain prognosis? @ -no Drug Therapy requiring intensive monitoring for toxicity (Heparin, Nitro, Insulin, Cardizem)? @ -no Were any procedures done? @ -no Diagnosis/symptom? @ -Fall, head injury Acute, or Chronic, or Acute on Chronic? @ -acute Uncomplicated (without systemic symptoms) or Complicated (systemic symptoms)? @ -uncomplicated Side effects of treatment? @ -no Exacerbation, Progression, or Severe Exacerbation] @ -no Poses a threat to life or bodily function? @ -no Reevaluation #5: 12/03/22 22:23 Differential Weakness: Hypoglycemia, shock, sepsis, hyponatremia, anemia, infection, NH, ETOH, adverse medicine reaction, overdose, stroke, this is not meant to be an all-inclusive list. Medical Decision Making - Medical Decision Making 52 female to the emergency department status post fall fall from standing with head injury no acute significant injury noted on computed tomography scan patient can be discharged home - Radiology Data Radiology results: report reviewed (CT brain C-spine chest and pelvis negative for genetic injury), image reviewed Disposition Clinical Impression: Fall, Head injury Disposition: HOME SELF-CARE Condition: Good Instructions (If sedation given, give patient instructions): Fall Prevention (ED) Is patient prescribed a controlled substance at d/c from ED?: No Referrals: Gabriel Taylor MD [Primary Care Provider] - 1-2 days Time of Disposition: 20:45
== END 2022-12-03 21:41 | disposition home or self-care (01) ==
LOC: EC 18:50
DX: S09.90XA Unspecified injury of head, initial encounter (principal); E11.9 Type 2 diabetes mellitus without complications; E78.5 Hyperlipidemia, unspecified; I10 Essential (primary) hypertension; M19.90 Unspecified osteoarthritis, unspecified site; F31.9 Bipolar disorder, unspecified; Z87.891 Personal history of nicotine dependence; Z86.73 Personal history of transient ischemic attack (TIA), and cerebral infarction without residual deficits; Z88.0 Allergy status to penicillin; Z79.899 Other long term (current) drug therapy; Z79.84 Long term (current) use of oral hypoglycemic drugs; Z79.1 Long term (current) use of non-steroidal anti-inflammatories (NSAID); W01.0XXA Fall on same level from slipping, tripping and stumbling without subsequent striking against object, initial encounter; Y92.009 Unspecified place in unspecified non-institutional (private) residence as the place of occurrence of the external cause
CPT/HCPCS: 70450; 71045; 72125; 72170; 99285

== ENCOUNTER 2022-12-12 09:56 | Emergency (ER) | payer MEDICARE, OTHER ==
[2022-12-12 10:01] VITALS: PULSE 82
[2022-12-12] MEDS ORDERED: SODIUM CHLORIDE 0.9% 1,000 ML IV STA (10:20)
--- NOTE | 2022-12-12 11:16 | XR ---
EXAMINATION TYPE: XR chest 2V DATE OF EXAM: 12/12/2022 COMPARISON: 12/03/2022 HISTORY: Shortness of breath TECHNIQUE: Frontal and lateral views of the chest are obtained. FINDINGS: Scattered senescent parenchymal changes noted. Hyperinflation compatible with COPD. No evidence for infiltrate. No evidence for atelectasis. Heart size is stable. Mediastinal structures are stable and grossly unremarkable. No evidence for hilar prominence. Degenerative changes dorsal spine. IMPRESSION: 1. No evidence for acute pulmonary disease.
--- NOTE | 2022-12-12 11:25 | ED ---
Fall HPI - General Chief Complaint: Fall Stated Complaint: Altered Mental Status Time Seen by Provider: 12/12/22 10:06 Source: EMS Mode of arrival: EMS - History of Present Illness Initial Comments: Patient is a 52-year-old female presents to the emergency department for evaluation of fall. According to EMS patient had an unwitnessed fall at [facility]. Unknown head trauma. No blood thinner use. Patient presents nonverbal I am unable to obtain history from her. I did speak with [facility] apparently patient normally talks. She does have history of she does have history of seizures on Keppra and Vimpat. She is an ESRD patient on hemodialysis Monday, Monday, Monday. She did not have dialysis today. She does make some urine. She was recently admitted for urinary tract infection and possible breakthrough seizure. - Related Data Home Medications Medication Instructions Recorded Confirmed Atorvastatin [Lipitor] 40 mg PO HS@209903/23/21 12/12/22 Dulaglutide [Trulicity] 3 mg SQ WE@0900 03/23/21 12/12/22 Sevelamer [Renvela] 1,600 mg PO BID 04/29/22 12/12/22 Zonisamide [Zonegran] 100 mg PO TID@0600,1500,2200 09/10/22 12/12/22 levETIRAcetam [Keppra] 500 mg PO BID@0900,199909/10/22 12/12/22 levETIRAcetam [Keppra] 500 mg PO MOWEFR@1600 09/10/22 12/12/22 Divalproex Sodium [Depakote] 500 mg PO BID@0900,209909/12/22 12/12/22 Divalproex Sodium [Depakote] 500 mg PO MOWEFR@1600 09/12/22 12/12/22 Metoprolol Tartrate [Lopressor] 25 mg PO MOWEFR@209911/13/22 12/12/22 Metoprolol Tartrate [Lopressor] 25 mg PO SUTUTHSA@0900,209911/21/22 12/12/22 icosapent ethyL [Icosapent Ethyl] 1 gm PO BID@0900,209911/21/22 12/12/22 Famotidine [Pepcid] 20 mg PO DAILY@0600 12/12/22 12/12/22 Lacosamide [Vimpat] 150 mg PO BID@0900,2100 12/12/22 12/12/22 Ondansetron [Zofran] 4 mg PO Q8H PRN 12/12/22 12/12/22 Previous Rx's Medication Instructions Recorded Lacosamide [Vimpat] 150 mg PO MOWEFR@1600 #4 tab 11/22/22 Allergies Allergy/AdvReac Type Severity Reaction Status Date / Time Penicillins Allergy Itching Verified 12/12/22 13:14 Review of Systems ROS Statement: Those systems with pertinent positive or pertinent negative responses have been documented in the HPI. ROS Other: All systems not noted in ROS Statement are negative. Past Medical History Past Medical History: Chest Pain / Angina, CVA/TIA, Diabetes Mellitus, GERD/Reflux, Hyperlipidemia, Hypertension, Memory Impairment, Osteoarthritis (OA), Renal Disease, Seizure Disorder, Thyroid Disorder Additional Past Medical History / Comment(s): Last seizure approximately one month ago. Spouse states she used to have seizures 4X per week until she had vagal nerve stimulator placed, now has seizures approximately once a week to once a month. Dialysis MOWEFR. Neuropathy, left drop foot, only able to walk short distances, otherwise uses wheelchair. 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 Never diagnosed with Sleep Apnea but spouse states she does stop breathing through the night and he has to shake her to start breathing again. Varicose veins. History of Any Multi-Drug Resistant Organisms: None Reported Past Surgical History: Section, Tonsillectomy, Uterine Ablation Additional Past Surgical History / Comment(s): Left arm fistula, loop recorder, vagus nerve stimulator. Past Anesthesia/Blood Transfusion Reactions: Motion Sickness Additional Past Anesthesia/Blood Transfusion Reaction / Comment(s): Family hx unknown, pt adopted. Past Psychological History: Bipolar Smoking Status: Former smoker Past Alcohol Use History: None Reported Past Drug Use History: None Reported - Past Family History Father Family Medical History: Unable to Obtain Additional Family Medical History / Comment(s): Pt adopted. General Exam Limitations: language barrier, altered mental status General appearance: alert, in no apparent distress Head exam: Present: atraumatic, normocephalic, normal inspection Eye exam: Present: normal appearance, PERRL, EOMI. Absent: scleral icterus, conjunctival injection, periorbital swelling ENT exam: Present: normal oropharynx, TM's normal bilaterally Neck exam: Present: normal inspection, full ROM. Absent: tenderness (patient does not react to palpation) Respiratory exam: Present: normal lung sounds bilaterally. Absent: respiratory distress, wheezes, rales, rhonchi, stridor Cardiovascular Exam: Present: regular rate, normal rhythm, normal heart sounds. Absent: systolic murmur, diastolic murmur, rubs, gallop, clicks GI/Abdominal exam: Present: soft, normal bowel sounds. Absent: distended, tenderness (patient does not react to palpation), guarding, rebound, rigid Extremities exam: Present: normal inspection, full ROM, normal capillary refill Neurological exam: Present: alert Skin exam: Present: warm, dry, intact, normal color. Absent: rash Course Vital Signs 12/12/22 12/12/22 09:57 10:01 Temperature 97.4 F L Pulse Rate 82 Respiratory 18 Rate Blood Pressure 155/85 O2 Sat by Pulse 100 Oximetry Medical Decision Making - Medical Decision Making EKG taken at 10:28, interpreted by me Sinus rhythm with first-degree AV block no new ST segment or T-wave abnormality Ventricular rate 83, IA interval 224, QRS duration 82, QTC 402 Was pt. sent in by a medical professional or institution (HOMERO Jiménez, OUTPATIENT CLERK, urgent care, hospital, or skilled nursing...) When possible be specific @ -[facility] today Did you speak to anyone other than the patient for history (EMS, parent, family, police, friend...)? What history was obtained from this source @ -EMS provided history. [facility] helped provide information about mental status. Did you review nursing and triage notes (agree or disagree)? Why? @ -I reviewed and agree with nursing and triage notes Were old charts reviewed (outside hosp., previous admission, EMS record, old EKG, old radiological studies, urgent care reports/EKG's, skilled nursing records)? Report findings @ -No old charts were reviewed Differential Diagnosis (chest pain, altered mental status, abdominal pain women, abdominal pain men, vaginal bleeding, weakness, fever, dyspnea, syncope, headache, dizziness, GI bleed, back pain, seizure, CVA, palpatations, mental health)? @ -Differential Headache: Migraine, tension, cluster, carbon monoxide, central venous thrombosis, pension karma temporal arteritis, acute closure glaucoma, intercranial hemorrhage, mastoiditis, sinusitis, head injury, this is not meant to be an all-inclusive list. EKG interpreted by me (3pts min.). @ -As above X-rays interpreted by me (1pt min.). @ -Yes, x-ray negative for acute process. CT interpreted by me (1pt min.). @ Yes, CT of the brain and C-spine negative for acute process. U/S interpreted by me (1pt. min.). @ -None done What testing was considered but not performed or refused? (CT, X-rays, U/S, labs)? Why? @ -None What meds were considered but not given or refused? Why? @ -None Did you discuss the management of the patient with other professionals (professionals i.e. , PA, OUTPATIENT CLERK, lab, RT, psych nurse, high school social studies tutor, elementary school reading teacher, teacher, loan officer, residential case manager)? Give summary @ -No Was smoking cessation discussed for >3mins.? @ -No Was critical care preformed (if so, how long)? @ -No Were there social determinants of health that impacted care today? How? (Homelessness, low income, unemployed, alcoholism, drug addiction, transportation, low edu. Level, literacy, decrease access to med. care, alf, rehab)? @ -No Was there de-escalation of care discussed even if they declined (Discuss DNR or withdrawal of care, Hospice)? DNR status @ -No What co-morbidities impacted this encounter? (DM, HTN, Smoking, COPD, CAD, Cancer, CVA, ARF, Chemo, Hep., AIDS, mental health diagnosis, sleep apnea, morbid obesity)? @ -seizure, ESRD Was patient admitted / discharged? Hospital course, mention meds given and route, prescriptions, significant lab abnormalities, going to OR and other pertinent info. @ -Patient presenting for evaluation of fall. She is nonverbal but alert. She does not appear to be in any pain. Possibly post ictal. No tongue injury.EKG was obtained interpreted by myself showing sinus rhythm no evidence of acute ischemia. Laboratory studies obtained. Creatinine is 8.72, BUN 51, consistent with end-stage renal dialysis. There is mild hyperkalemia 5.5. Other laboratory studies were relatively unremarkable. Patient given loading dose of Keppra. Mental status did improve during visit. Patient is alert and oriented x 3 slow and confused. She denies any pain. Discussed case with Dr. Ludwig who states dialysis Center can get patient in for outpatient dialysis if she is discharged soon. Urinalysis is pending but vitals are within acceptable limits. There is no leukocytosis. Patient is in stable medical condition for discharge to dialysis Center. I will call [facility] with updates results and treatment should urinalysis reveal any infection. Undiagnosed new problem with uncertain prognosis? @ -No Drug Therapy requiring intensive monitoring for toxicity (Heparin, Nitro, Insulin, Cardizem)? @ -No Were any procedures done? @ -No Diagnosis/symptom? @ -fall, ESRD on dialysis Acute, or Chronic, or Acute on Chronic? @ -acute, chronic Uncomplicated (without systemic symptoms) or Complicated (systemic symptoms)? @ -uncomplicated Side effects of treatment? @ -No Exacerbation, Progression, or Severe Exacerbation? @ -No Poses a threat to life or bodily function? How? (Chest pain, [place], [place], pneumonia, PE, COPD, DKA, ARF, appy, cholecystitis, CVA, Diverticulitis, Homicidal, Suicid al, threat to staff... and all critical care pts) @ -No Dr. Horne is my attending - Lab Data Result diagrams: 12/12/22 12:06 12/12/22 12:06 Lab Results 12/12/22 12/12/22 12/12/22 Range/Units 12:06 12:06 12:06 WBC 7.0 (3.8-10.6) k/uL RBC 4.18 (3.80-5.40) m/uL Hgb 13.6 (11.4-16.0) gm/dL Hct 41.7 (34.0-46.0) % MCV 99.8 (80.0-100.0) fL MCH 32.6 (25.0-35.0) pg MCHC 32.6 (31.0-37.0) g/dL RDW 14.6 (11.5-15.5) % Plt Count 176 (150-450) k/uL MPV 9.2 Neutrophils % 66 % Lymphocytes % 28 % Monocytes % 4 % Eosinophils % 1 % Basophils % 1 % Neutrophils # 4.6 (1.3-7.7) k/uL Lymphocytes # 1.9 (1.0-4.8) k/uL Monocytes # 0.3 (0-1.0) k/uL Eosinophils # 0.1 (0-0.7) k/uL Basophils # 0.0 (0-0.2) k/uL Macrocytosis Slight PT 10.8 (9.0-12.0) sec INR 1.0 (<1.2) APTT 23.0 (22.0-30.0) sec Sodium 140 (137-145) mmol/L Potassium 5.5 H (3.5-5.1) mmol/L Chloride 97 L (98-107) mmol/L Carbon Dioxide 31 H (22-30) mmol/L Anion Gap 12 mmol/L BUN 51 H (7-17) mg/dL Creatinine 8.72 H* (0.52-1.04) mg/dL Est GFR (CKD-EPI)AfAm 5 (>60 ml/min/1.73 sqM) Est GFR (CKD-EPI)NonAf 5 (>60 ml/min/1.73 sqM) Glucose 148 H (74-99) mg/dL POC Glucose (mg/dL) (70-110) mg/dL POC Glu [employer] ID Plasma Lactic Acid Shen (0.7-2.0) mmol/L Calcium 9.9 (8.4-10.2) mg/dL Total Bilirubin 0.5 (0.2-1.3) mg/dL AST 26 (14-36) U/L ALT 20 (4-34) U/L Alkaline Phosphatase 98 (38-126) U/L Troponin I (0.000-0.034) ng/mL Total Protein 7.1 (6.3-8.2) g/dL Albumin 3.9 (3.5-5.0) g/dL 12/12/22 12/12/22 12/12/22 Range/Units 12:06 12:06 12:13 WBC (3.8-10.6) k/uL RBC (3.80-5.40) m/uL Hgb (11.4-16.0) gm/dL Hct (34.0-46.0) % MCV (80.0-100.0) fL MCH (25.0-35.0) pg MCHC (31.0-37.0) g/dL RDW (11.5-15.5) % Plt Count (150-450) k/uL MPV Neutrophils % % Lymphocytes % % Monocytes % % Eosinophils % % Basophils % % Neutrophils # (1.3-7.7) k/uL Lymphocytes # (1.0-4.8) k/uL Monocytes # (0-1.0) k/uL Eosinophils # (0-0.7) k/uL Basophils # (0-0.2) k/uL Macrocytosis PT (9.0-12.0) sec INR (<1.2) APTT (22.0-30.0) sec Sodium (137-145) mmol/L Potassium (3.5-5.1) mmol/L Chloride (98-107) mmol/L Carbon Dioxide (22-30) mmol/L Anion Gap mmol/L BUN (7-17) mg/dL Creatinine (0.52-1.04) mg/dL Est GFR (CKD-EPI)AfAm (>60 ml/min/1.73 sqM) Est GFR (CKD-EPI)NonAf (>60 ml/min/1.73 sqM) Glucose (74-99) mg/dL POC Glucose (mg/dL) 118 H (70-110) mg/dL POC Glu [employer]neyman MARIAMA Donald Cavanaugh Plasma Lactic Acid Shen 1.9 (0.7-2.0) mmol/L Calcium (8.4-10.2) mg/dL Total Bilirubin (0.2-1.3) mg/dL AST (14-36) U/L ALT (4-34) U/L Alkaline Phosphatase (38-126) U/L Troponin I 0.016 (0.000-0.034) ng/mL Total Protein (6.3-8.2) g/dL Albumin (3.5-5.0) g/dL Disposition Clinical Impression: Fall, ESRD (end stage renal disease) Disposition: HOME SELF-CARE Condition: Good Instructions (If sedation given, give patient instructions): Fall Prevention for Older Adults (ED) Additional Instructions: We will call the facility if urinalysis reveals any infection which is currently pending. Patient to go to dialysis today as planned. Return to the emergency Department if patient experiences new, concerning, or worsening symptoms. Is patient prescribed a controlled substance at d/c from ED?: No Referrals: Gabriel Taylor MD [Primary Care Provider] - 1-2 days [facility], [NON-STAFF] - 1-2 days
--- NOTE | 2022-12-12 11:47 | CT ---
EXAMINATION TYPE: CT brain topher hansen DATE OF EXAM: 12/12/2022 COMPARISON: 12/03/2022 HISTORY: Fall, AMS, Non verbal CT DLP: 1460.[address] of the brain was performed. The ventricles, basal cisterns and sulci overlying the cerebral convexities demonstrate mild enlargem ent. There is no evidence for intracranial hemorrhage or sulcal effacement. There is decreased attenuatio n about the periventricular white matter and deep white matter of both cerebral hemispheres, compatib le with chronic small vessel ischemia. No mass effects are seen. If symptoms persist consider MRI. Osseous calvarium is intact. IMPRESSION: 1. Age related atrophic and chronic small vessel ischemic change without acute intracranial process seen at this time. CT Cervical Spine: Unenhanced CT of the cervical spine was performed with bone and soft tissue window settings submitted . Coronal and sagittal reconstruction is obtained. There is normal alignment and prevertebral soft tissues. No evidence for acute cervical fracture . Scattered degenerative disc disease and spondylosis. Biapical scarring. IMPRESSION: 1. No evidence for acute fracture or subluxation of the cervical spine.
[2022-12-12 12:15] LABS: Glucose,Whole Blood 118 mg/dL (70-110)
[2022-12-12 12:18] LABS: Basophils % (A) 1 %; Eosinophils # (A) 0.1 k/uL (0-0.7); Eosinophils % (A) 1 %; HCT 41.7 % (34.0-46.0); HGB 13.6 gm/dL (11.4-16.0); Lymphocytes # (A) 1.9 k/uL (1.0-4.8); Lymphocytes % (A) 28 %; MCH 32.6 pg (25.0-35.0); MCHC 32.6 g/dL (31.0-37.0); MCV 99.8 fL (80.0-100.0); Macrocytosis Slight; Mean Platelet Volume 9.2; Monocytes # (A) 0.3 k/uL (0-1.0); Monocytes % (A) 4 %; Neutrophils # (A) 4.6 k/uL (1.3-7.7); Neutrophils % (A) 66 %; Platelet Count 176 k/uL (150-450); RBC 4.18 m/uL (3.80-5.40); RDW 14.6 % (11.5-15.5)
[2022-12-12 12:29] LABS: Albumin 3.9 g/dL (3.5-5.0); Calcium 9.9 mg/dL (8.4-10.2); Potassium 5.5 mmol/L (3.5-5.1); Total Bilirubin 0.5 mg/dL (0.2-1.3); Total Protein 7.1 g/dL (6.3-8.2)
[2022-12-12 12:52] LABS: Prothrombin Time 10.8 sec (9.0-12.0)
[2022-12-12] MEDS ORDERED: levETIRAcetam IV 500 MG/5 ML VIAL IVP STA (15:28)
[2022-12-12 15:57] VITALS: BP 146/82; RESP 14; TEMP 97.9
[2022-12-12 16:01] LABS: Appearance,Urine Cloudy (Clear); Bacteria,Urine Rare /hpf; Bilirubin,Urine Negative (Negative); Blood,Urine Trace (Negative); Color,Urine Light Yellow; Glucose,Urine (UA) 1+ (Negative); Ketones,Urine Negative (Negative); Leukocyte Esterase,Urine Large (Negative); Nitrite,Urine Negative (Negative); PH, Urine 8.5 (5.0-8.0); Protein,Urine 2+ (Negative); RBC,Urine 40 /hpf (0-5); Specific Gravity,Urine 1.008 (1.001-1.035); Squamous Epithelial Cell,Urine <1 /hpf (0-4); Urobilinogen,Urine <2.0 mg/dL (<2.0); WBC,Urine 16 /hpf (0-5)
[2022-12-12 16:03] LABS: Amphetamine Screen,Urine Not Detected (NotDetected); Barbiturate Screen,Urine Not Detected (NotDetected); Benzodiazepines Screen,Urine Not Detected (NotDetected); Cocaine Screen,Urine Not Detected (NotDetected); Methadone Screen, Urine Not Detected (NotDetected); Opiate Screen,Urine Not Detected (NotDetected); Oxycodone Screen, Urine Not Detected (NotDetected); Phencyclidine Screen,Urine Not Detected (NotDetected); Tricyclic Antidepressant,Urine Not Detected (NotDetected); Urn Cannabinoid Scrn Not Detected (NotDetected)
== END 2022-12-12 15:58 | disposition home or self-care (01) ==
LOC: EC 09:56
DX: E11.22 Type 2 diabetes mellitus with diabetic chronic kidney disease (principal); I12.0 Hypertensive chronic kidney disease with stage 5 chronic kidney disease or end stage renal disease; N18.6 End stage renal disease; I67.82 Cerebral ischemia; J98.4 Other disorders of lung; E78.5 Hyperlipidemia, unspecified; M19.90 Unspecified osteoarthritis, unspecified site; F31.9 Bipolar disorder, unspecified; Z87.891 Personal history of nicotine dependence; Z86.73 Personal history of transient ischemic attack (TIA), and cerebral infarction without residual deficits; Z79.84 Long term (current) use of oral hypoglycemic drugs; Z79.1 Long term (current) use of non-steroidal anti-inflammatories (NSAID); Z79.899 Other long term (current) drug therapy; Z88.0 Allergy status to penicillin; W18.30XA Fall on same level, unspecified, initial encounter
CPT/HCPCS: 36415; 51798; 70450; 71046; 72125; 80053; 80306; 81001; 83605; 84484; 85025; 85610; 85730; 87086; 93005; 96360; 96361; 99285

== ENCOUNTER 2022-12-20 15:51 | Emergency (ER) | payer MEDICARE, OTHER ==
[2022-12-20 16:46] VITALS: TEMP 98
--- NOTE | 2022-12-20 17:41 | ED ---
Altered Mental Status HPI - General Chief Complaint: Altered Mental Status Stated Complaint: weakness Time Seen by Provider: 12/20/22 16:00 Source: family, EMS, RN notes reviewed Mode of arrival: EMS Limitations: altered mental status - History of Present Illness Initial Comments: This is a 52-year-old female who presents to the emergency department for altered mental status. Patient was at her neurologist's office getting her VNS checked, and her states that the provider said "it looked like she was on too many medications". She called in the physician, who examined the patient and felt like the patient was weaker on the right side. Patient is relatively nonverbal and resides at [facility]. However, her states that she did not recognize him today as she usually does. She usually smiles when she sees him, which was not the case today. He was however able to get her to smile by showing her a picture of a puppy. Upon questioning the patient, the only word that she produced was "okay". MD Complaint: altered mental status - Related Data Home Medications Medication Instructions Recorded Confirmed Atorvastatin [Lipitor] 40 mg PO HS@209903/23/21 12/12/22 Dulaglutide [Trulicity] 3 mg SQ WE@0900 03/23/21 12/12/22 Sevelamer [Renvela] 1,600 mg PO BID 04/29/22 12/12/22 Zonisamide [Zonegran] 100 mg PO TID@0600,1500,2200 09/10/22 12/12/22 levETIRAcetam [Keppra] 500 mg PO BID@0900,199909/10/22 12/12/22 levETIRAcetam [Keppra] 500 mg PO MOWEFR@159909/10/22 12/12/22 Divalproex Sodium [Depakote] 500 mg PO BID@0900,209909/12/22 12/12/22 Divalproex Sodium [Depakote] 500 mg PO MOWEFR@159909/12/22 12/12/22 Metoprolol Tartrate [Lopressor] 25 mg PO MOWEFR@209911/13/22 12/12/22 Metoprolol Tartrate [Lopressor] 25 mg PO SUTUTHSA@0900,209911/21/22 12/12/22 icosapent ethyL [Icosapent Ethyl] 1 gm PO BID@0900,2100 11/21/22 12/12/22 Famotidine [Pepcid] 20 mg PO DAILY@0600 12/12/22 12/12/22 Lacosamide [Vimpat] 150 mg PO BID@0900,2100 12/12/22 12/12/22 Ondansetron [Zofran] 4 mg PO Q8H PRN 12/12/22 12/12/22 Previous Rx's Medication Instructions Recorded Lacosamide [Vimpat] 150 mg PO MOWEFR@1600 #4 tab 11/22/22 cefUROXime axetiL [Ceftin] 500 mg PO BID 7 Days #14 tab 12/20/22 Allergies Allergy/AdvReac Type Severity Reaction Status Date / Time Penicillins Allergy Itching Verified 12/12/22 13:14 Review of Systems ROS Statement: Those systems with pertinent positive or pertinent negative responses have been documented in the HPI. ROS Other: All systems not noted in ROS Statement are negative. Limitations: ROS unobtainable due to patients medical condition Past Medical History Past Medical History: Chest Pain / Angina, CVA/TIA, Diabetes Mellitus, GERD/Reflux, Hyperlipidemia, Hypertension, Memory Impairment, Osteoarthritis (OA), Renal Disease, Seizure Disorder, Thyroid Disorder Additional Past Medical History / Comment(s): Last seizure approximately one month ago. Spouse states she used to have seizures 4X per week until she had vagal nerve stimulator placed, now has seizures approximately once a week to once a month. Dialysis MOWEFR. Neuropathy, left drop foot, only able to walk short distances, otherwise uses wheelchair. 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 Never diagnosed with Sleep Apnea but spouse states she does stop breathing through the night and he has to shake her to start breathing again. Varicose veins. History of Any Multi-Drug Resistant Organisms: None Reported Past Surgical History: Section, Tonsillectomy, Uterine Ablation Additional Past Surgical History / Comment(s): Left arm fistula, loop recorder, vagus nerve stimulator. Past Anesthesia/Blood Transfusion Reactions: Motion Sickness Additional Past Anesthesia/Blood Transfusion Reaction / Comment(s): Family hx unknown, pt adopted. Past Psychological History: Bipolar Smoking Status: Former smoker Past Alcohol Use History: None Reported Past Drug Use History: None Reported - Past Family History Father Family Medical History: Unable to Obtain Additional Family Medical History / Comment(s): Pt adopted. General Exam Limitations: physical limitation General appearance: alert, in no apparent distress Head exam: Present: atraumatic, normocephalic, normal inspection Respiratory exam: Present: normal lung sounds bilaterally. Absent: respiratory distress, wheezes, rales, rhonchi, stridor Cardiovascular Exam: Present: regular rate, normal rhythm, normal heart sounds. Absent: systolic murmur, diastolic murmur, rubs, gallop, clicks Neurological exam: Present: alert Expanded Neurological exam: Present: other (She is unable to follow commands for the most part, however she is able to hold up both upper extremities when lifted. She was also spontaneously moving the right lower extremity. Pt has left drop foot and does not move left leg at baseline. No facial droop.) Motor strength exam: RUE: 3, LUE: 3 Skin exam: Present: warm, dry, intact, normal color. Absent: rash Course Vital Signs 12/20/22 12/20/22 12/20/22 16:16 16:38 17:00 Temperature 98.0 F Pulse Rate 75 71 Respiratory 16 Rate Blood Pressure 140/64 152/107 O2 Sat by Pulse Oximetry 12/20/22 12/20/22 12/20/22 18:30 19:30 20:36 Temperature Pulse Rate 71 72 Respiratory 16 16 Rate Blood Pressure 171/105 185/94 139/66 O2 Sat by Pulse 99 98 Oximetry 12/21/22 12/21/22 00:15 02:53 Temperature Pulse Rate 65 70 Respiratory 18 18 Rate Blood Pressure 152/77 127/71 O2 Sat by Pulse 100 98 Oximetry Medical Decision Making - Medical Decision Making This is a 52-year-old female who presents to the emergency department for altered mental status. Was pt. sent in by a medical professional or institution? @ -Her neurologist's office Did you speak to anyone other than the patient for history? @ -Her provided all of the information. Did you review nursing and triage notes? @ -Yes, and I agree, it is accurate with regards to the patient's symptoms. Were old charts reviewed? @ -No Differential Diagnosis? @ -Differential Altered Mental Status: Hypoglycemia, DKA, hypercapnia, ETOH, overdose, CO poisoning, trauma, myxedema coma, HTN encephalopathy, infection, encephalitis, psychosis, intercranial hemorrhage, hepatic encephalopathy, meningitis, CVA, this is not meant to be an all-inclusive list EKG interpreted by me (3pts min.)? @ -EKG interpreted by me demonstrating the following: Normal sinus rhythm. Ventricular rate 72 bpm, AR interval 202 ms, QRS duration 72 ms, QTC 446 ms. X-rays interpreted by me (1pt min.)? @ -Chest x-ray obtained, my interpretation identifies no localized c onsolidations or infiltrates. CT interpreted by me (1pt min.)? @ -Computed tomography scan of the brain obtained. My interpretation identifies no acute ischemic changes. U/S interpreted by me (1pt. min.)? @ -Not obtained What testing was considered but not performed? (CT, X-rays, U/S, labs)? Why? @ -None What meds were considered but not given? Why? @ -None Did you discuss the management of the patient with other professionals? @ -No Did you reconcile home meds? @ -No Was smoking cessation discussed for >3mins.? @ -No Was critical care preformed (if so, how long)? @ -No Were there social determinants of health that impacted care today? How? (Homelessness, low income, unemployed, alcoholism, drug addiction, transportation, low edu. Level, literacy, decrease access to med. care, [place] [facility], rehab)? @ -No Was there de-escalation of care discussed even if they declined? (Discuss DNR or withdrawal of care, Hospice)? @ -No What co-morbidities impacted this encounter? (DM, HTN, Smoking, COPD, CAD, C ancer, CVA, Hep., AIDS, mental health diagnosis, sleep apnea, morbid obesity)? @ -Hx of CVA, memory impairment, HTN, HLD, renal disease, thyroid disorder Was patient admitted / discharged? @ -Discharged. Lab work obtained and found to be nonactionable. We did do a second troponin as well, which was found to be negative. Urinalysis is con sistent with a UTI. Chest x-ray and computed tomography scan of the brain obtained revealing no acute findings, including no acute ischemic changes. 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 There was also no evidence of facial droop. As a result of her stroke, her communication is difficult and she is essentially nonverbal. She has difficulty following some commands, however again this is chronic for her. While her nurse rates her as being elevated on the NIH scale, these are chronic findings for the patient. She was easily arousable. Patient does appear to be at baseline without acute neurological changes and can be discharged back to [facility]. She was given 1 g of ceftriaxone in the emergency department for UTI. Prescription for cefuroxime provided with dosing instructions reviewed for further management of the UTI. Undiagnosed new problem with uncertain prognosis? @ -None Drug Therapy requiring intensive monitoring for toxicity (Heparin, Nitro, Insulin, Cardizem)? @ -None Were any procedures done? @ -None Diagnosis/symptom? @ -UTI Acute, or Chronic, or Acute on Chronic? @ -Acute Uncomplicated (without systemic symptoms) or Complicated (systemic symptoms)? @ -Uncomplicated Side effects of treatment? @ -None Exacerbation, Progression, or Severe Exacerbation] @ -Not applicable Poses a threat to life or bodily function? @ -No Return precautions reviewed in depth, the patient is instructed to return to the emergency department with any new, worsening, or concerning symptoms. Patient verbalized understanding. This case was discussed in detail with the attending ED physician, Dr. Vásquez. Presentation, findings, and treatment plan discussed in detail as well. - Lab Data Result diagrams: 12/20/22 20:35 12/20/22 17:53 Lab Results 12/20/22 12/20/22 12/20/22 Range/Units 17:53 17:53 17:53 WBC (3.8-10.6) k/uL RBC (3.80-5.40) m/uL Hgb (11.4-16.0) gm/dL Hct (34.0-46.0) % MCV (80.0-100.0) fL MCH (25.0-35.0) pg MCHC (31.0-37.0) g/dL RDW (11.5-15.5) % Plt Count (150-450) k/uL MPV Neutrophils % % Lymphocytes % % Monocytes % % Eosinophils % % Basophils % % Neutrophils # (1.3-7.7) k/uL Lymphocytes # (1.0-4.8) k/uL Monocytes # (0-1.0) k/uL Eosinophils # (0-0.7) k/uL Basophils # (0-0.2) k/uL Manual Slide Review RBC Morphology PT (9.0-12.0) sec INR (<1.2) APTT (22.0-30.0) sec Sodium 139 (137-145) mmol/L Potassium 4.8 (3.5-5.1) mmol/L Chloride 96 L (98-107) mmol/L Carbon Dioxide 30 (22-30) mmol/L Anion Gap 13 mmol/L BUN 34 H (7-17) mg/dL Creatinine 6.24 H (0.52-1.04) mg/dL Est GFR (CKD-EPI)AfAm 8 (>60 ml/min/1.73 sqM) Est GFR (CKD-EPI)NonAf 7 (>60 ml/min/1.73 sqM) Glucose 107 H (74-99) mg/dL Plasma Lactic Acid Shen 1.4 (0.7-2.0) mmol/L Calcium 9.2 (8.4-10.2) mg/dL Total Bilirubin 0.8 (0.2-1.3) mg/dL AST 41 H (14-36) U/L ALT 18 (4-34) U/L Alkaline Phosphatase 88 (38-126) U/L Troponin I 0.023 (0.000-0.034) ng/mL Total Protein 7.7 (6.3-8.2) g/dL Albumin 4.1 (3.5-5.0) g/dL TSH 2.680 (0.465-4.680) mIU/L Urine Color Urine Appearance (Clear) Urine pH (5.0-8.0) Ur Specific Bunn (1.001-1.035) Urine Protein (Negative) Urine Glucose (UA) (Negative) Urine Ketones (Negative) Urine Blood (Negative) Urine Nitrite (Negative) Urine Bilirubin (Negative) Urine Urobilinogen (<2.0) mg/dL Ur Leukocyte Esterase (Negative) Urine RBC (0-5) /hpf Urine WBC (0-5) /hpf Urine Bacteria (None) /hpf Hyaline Casts (0-2) /lpf 12/20/22 12/20/22 12/20/22 Range/Units 20:35 20:35 21:47 WBC 4.8 (3.8-10.6) k/uL RBC 3.83 (3.80-5.40) m/uL Hgb 12.2 (11.4-16.0) gm/dL Hct 37.3 (34.0-46.0) % MCV 97.3 (80.0-100.0) fL MCH 31.8 (25.0-35.0) pg MCHC 32.6 (31.0-37.0) g/dL RDW 14.2 (11.5-15.5) % Plt Count 96 L (150-450) k/uL MPV 8.9 Neutrophils % 34 % Lymphocytes % 54 % Monocytes % 8 % Eosinophils % 2 % Basophils % 0 % Neutrophils # 1.6 (1.3-7.7) k/uL Lymphocytes # 2.6 (1.0-4.8) k/uL Monocytes # 0.4 (0-1.0) k/uL Eosinophils # 0.1 (0-0.7) k/uL Basophils # 0.0 (0-0.2) k/uL Manual Slide Review Performed RBC Morphology Normal PT 11.1 (9.0-12.0) sec INR 1.1 (<1.2) APTT 23.8 (22.0-30.0) sec Sodium (137-145) mmol/L Potassium (3.5-5.1) mmol/L Chloride (98-107) mmol/L Carbon Dioxide (22-30) mmol/L Anion Gap mmol/L BUN (7-17) mg/dL Creatinine (0.52-1.04) mg/dL Est GFR (CKD-EPI)AfAm (>60 ml/min/1.73 sqM) Est GFR (CKD-EPI)NonAf (>60 ml/min/1.73 sqM) Glucose (74-99) mg/dL Plasma Lactic Acid Shen (0.7-2.0) mmol/L Calcium (8.4-10.2) mg/dL Total Bilirubin (0.2-1.3) mg/dL AST (14-36) U/L ALT (4-34) U/L Alkaline Phosphatase (38-126) U/L Troponin I (0.000-0.034) ng/mL Total Protein (6.3-8.2) g/dL Albumin (3.5-5.0) g/dL TSH (0.465-4.680) mIU/L Urine Color Yellow Urine Appearance Cloudy H (Clear) Urine pH 8.5 H (5.0-8.0) Ur Specific Bunn 1.013 (1.001-1.035) Urine Protein 3+ H (Negative) Urine Glucose (UA) Negative (Negative) Urine Ketones Negative (Negative) Urine Blood Small H (Negative) Urine Nitrite Negative (Negative) Urine Bilirubin Negative (Negative) Urine Urobilinogen <2.0 (<2.0) mg/dL Ur Leukocyte Esterase Large H (Negative) Urine RBC 77 H (0-5) /hpf Urine WBC >182 H (0-5) /hpf Urine Bacteria Occasional H (None) /hpf Hyaline Casts 18 H (0-2) /lpf 12/20/22 Range/Units 22:05 WBC (3.8-10.6) k/uL RBC (3.80-5.40) m/uL Hgb (11.4-16.0) gm/dL Hct (34.0-46.0) % MCV (80.0-100.0) fL MCH (25.0-35.0) pg MCHC (31.0-37.0) g/dL RDW (11.5-15.5) % Plt Count (150-450) k/uL MPV Neutrophils % % Lymphocytes % % Monocytes % % Eosinophils % % Basophils % % Neutrophils # (1.3-7.7) k/uL Lymphocytes # (1.0-4.8) k/uL Monocytes # (0-1.0) k/uL Eosinophils # (0-0.7) k/uL Basophils # (0-0.2) k/uL Manual Slide Review RBC Morphology PT (9.0-12.0) sec INR (<1.2) APTT (22.0-30.0) sec Sodium (137-145) mmol/L Potassium (3.5-5.1) mmol/L Chloride (98-107) mmol/L Carbon Dioxide (22-30) mmol/L Anion Gap mmol/L BUN (7-17) mg/dL Creatinine (0.52-1.04) mg/dL Est GFR (CKD-EPI)AfAm (>60 ml/min/1.73 sqM) Est GFR (CKD-EPI)NonAf (>60 ml/min/1.73 sqM) Glucose (74-99) mg/dL Plasma Lactic Acid Shen (0.7-2.0) mmol/L Calcium (8.4-10.2) mg/dL Total Bilirubin (0.2-1.3) mg/dL AST (14-36) U/L ALT (4-34) U/L Alkaline Phosphatase (38-126) U/L Troponin I <0.012 (0.000-0.034) ng/mL Total Protein (6.3-8.2) g/dL Albumin (3.5-5.0) g/dL TSH (0.465-4.680) mIU/L Urine Color Urine Appearance (Clear) Urine pH (5.0-8.0) Ur Specific Bunn (1.001-1.035) Urine Protein (Negative) Urine Glucose (UA) (Negative) Urine Ketones (Negative) Urine Blood (Negative) Urine Nitrite (Negative) Urine Bilirubin (Negative) Urine Urobilinogen (<2.0) mg/dL Ur Leukocyte Esterase (Negative) Urine RBC (0-5) /hpf Urine WBC (0-5) /hpf Urine Bacteria (None) /hpf Hyaline Casts (0-2) /lpf - Radiology Data Radiology results: report reviewed, image reviewed Disposition Clinical Impression: UTI (urinary tract infection) Disposition: HOME SELF-CARE Instructions (If sedation given, give patient instructions): Urinary Tract Infection in Women (ED) Additional Instructions: Return to the emergency department with any new, worsening, or concerning symptoms. Take the antibiotic as prescribed for 7 days. Follow up with your primary care provider in 1-2 days. Prescriptions: cefUROXime axetiL [Ceftin] 500 mg PO BID 7 Days #14 tab Is patient prescribed a controlled substance at d/c from ED?: No Referrals: Gabriel Taylor MD [Primary Care Provider] - 1-2 days
--- NOTE | 2022-12-20 18:37 | CT ---
EXAMINATION TYPE: CT brain wo con DATE OF EXAM: 12/20/2022 COMPARISON: 12/13/2019 INDICATION: ams DLP: 1114.4 mGycm, Automated exposure control for dose reduction was used. CONTRAST: None CT of the brain is performed utilizing 3 mm thick sections through the posterior fossa and 3 mm thick sections through the remaining calvarium. Study is performed within 24 hours of arrival to the hosp ital. No abnormal hyperdensity is present to suggest an acute intracranial hemorrhage. No mass lesion is evident. There is hypodensity adjacent to the third ventricle extending towards the left lateral. Ventricular white matter. This area appears stable from comparison may be some old ischemic change. Periventricu lar white matter hypodensity is present greater on the left which can be compatible with chronic whit e matter ischemic changes. Ventricles and sulci are prominent for the patient age. Paranasal sinuses and mastoid air cells within the field of view are clear IMPRESSIONS: 1. Chronic appearing periventricular deep white matter ischemic changes appears chronic and stable from comparison. Follow-up MRI can be performed as clinically indicated.
[2022-12-20 18:47] LABS: ALT 18 U/L (4-34); AST 41 U/L (14-36); African American GFR (CKD) 8 (>60 ml/min/1.73 sqM); Albumin 4.1 g/dL (3.5-5.0); Alkaline Phosphatase 88 U/L (38-126); Anion Gap 13 mmol/L; Blood Urea Nitrogen 34 mg/dL (7-17); Calcium 9.2 mg/dL (8.4-10.2); Carbon Dioxide 30 mmol/L (22-30); Chloride 96 mmol/L (98-107); Non-African American GFR(CKD) 7 (>60 ml/min/1.73 sqM); Potassium 4.8 mmol/L (3.5-5.1); Sodium 139 mmol/L (137-145); Total Bilirubin 0.8 mg/dL (0.2-1.3); Total Protein 7.7 g/dL (6.3-8.2)
[2022-12-20 18:54] LABS: Glucose 107 mg/dL (74-99)
--- NOTE | 2022-12-20 20:10 | XR ---
EXAMINATION TYPE: XR chest 2V DATE OF EXAM: 12/20/2022 COMPARISON: 12/12/2022 INDICATION: Acute mental status changes TECHNIQUE: Frontal and lateral views of the chest are obtained. FINDINGS: The heart size is normal. The pulmonary vasculature is normal. The lungs are clear. Pacemaker overlies left chest. IMPRESSION: 1. No acute pulmonary process.
[2022-12-20 20:53] LABS: Basophils % (A) 0 %; Eosinophils # (A) 0.1 k/uL (0-0.7); Eosinophils % (A) 2 %; HCT 37.3 % (34.0-46.0); HGB 12.2 gm/dL (11.4-16.0); Lymphocytes # (A) 2.6 k/uL (1.0-4.8); Lymphocytes % (A) 54 %; MCH 31.8 pg (25.0-35.0); MCHC 32.6 g/dL (31.0-37.0); MCV 97.3 fL (80.0-100.0); Mean Platelet Volume 8.9; Monocytes # (A) 0.4 k/uL (0-1.0); Monocytes % (A) 8 %; Neutrophils # (A) 1.6 k/uL (1.3-7.7); Neutrophils % (A) 34 %; RBC 3.83 m/uL (3.80-5.40); RDW 14.2 % (11.5-15.5); WBC 4.8 k/uL (3.8-10.6)
[2022-12-20 20:58] LABS: INR 1.1 (<1.2); Partial Thromboplastin Time 23.8 sec (22.0-30.0); Prothrombin Time 11.1 sec (9.0-12.0)
[2022-12-20 21:34] LABS: Platelet Count 96 k/uL (150-450)
[2022-12-20 22:09] LABS: Appearance,Urine Cloudy (Clear); Bacteria,Urine Occasional /hpf; Bilirubin,Urine Negative (Negative); Blood,Urine Small (Negative); Color,Urine Yellow; Glucose,Urine (UA) Negative (Negative); Hyaline Casts,Urine 18 /lpf (0-2); Ketones,Urine Negative (Negative); Leukocyte Esterase,Urine Large (Negative); Nitrite,Urine Negative (Negative); PH, Urine 8.5 (5.0-8.0); Protein,Urine 3+ (Negative); RBC,Urine 77 /hpf (0-5); Specific Gravity,Urine 1.013 (1.001-1.035); Urobilinogen,Urine <2.0 mg/dL (<2.0); WBC,Urine >182 /hpf (0-5)
[2022-12-20] MEDS ORDERED: cefTRIAXone IN SWFI 1,000 MG/10 ML SYRINGE IVP STA (22:35)
[2022-12-20 22:43] LABS: RBC Morphology Normal
[2022-12-21 00:18] VITALS: RESP 18
[2022-12-21 02:57] VITALS: BP 127/71; PULSE 70
== END 2022-12-21 02:59 | disposition home or self-care (01) ==
LOC: EC 15:51
DX: N39.0 Urinary tract infection, site not specified (principal); E11.40 Type 2 diabetes mellitus with diabetic neuropathy, unspecified; I10 Essential (primary) hypertension; K21.9 Gastro-esophageal reflux disease without esophagitis; E78.5 Hyperlipidemia, unspecified; G40.909 Epilepsy, unspecified, not intractable, without status epilepticus; M19.90 Unspecified osteoarthritis, unspecified site; Z79.85 Long-term (current) use of injectable non-insulin antidiabetic drugs; Z79.899 Other long term (current) drug therapy; Z88.0 Allergy status to penicillin; Z87.891 Personal history of nicotine dependence; Z86.73 Personal history of transient ischemic attack (TIA), and cerebral infarction without residual deficits
CPT/HCPCS: 36415; 93005; 80053; 84443; 83605; 84484; 85025; 85610; 85730; 81001; 87086; 71046; 70450; 99285; 96374; J0696

== ENCOUNTER 2023-01-09 11:16 | Emergency (ER) | payer MEDICARE, OTHER ==
[2023-01-09 11:31] VITALS: BP 160/82; PULSE 83; RESP 18; TEMP 98.7
[2023-01-09 12:23] LABS: Basophils % (A) 0 %; Eosinophils # (A) 0.1 k/uL (0-0.7); Eosinophils % (A) 2 %; HCT 32.9 % (34.0-46.0); Lymphocytes # (A) 2.2 k/uL (1.0-4.8); Lymphocytes % (A) 38 %; MCH 32.2 pg (25.0-35.0); MCHC 33.3 g/dL (31.0-37.0); MCV 96.6 fL (80.0-100.0); Mean Platelet Volume 8.2; Monocytes # (A) 0.3 k/uL (0-1.0); Monocytes % (A) 6 %; Neutrophils # (A) 3.1 k/uL (1.3-7.7); Neutrophils % (A) 53 %; RBC 3.41 m/uL (3.80-5.40); WBC 5.8 k/uL (3.8-10.6)
[2023-01-09 12:32] LABS: ALT 13 U/L (4-34); AST 21 U/L (14-36); African American GFR (CKD) 6 (>60 ml/min/1.73 sqM); Albumin 3.6 g/dL (3.5-5.0); Alkaline Phosphatase 83 U/L (38-126); Anion Gap 11 mmol/L; Blood Urea Nitrogen 49 mg/dL (7-17); Calcium 9.4 mg/dL (8.4-10.2); Carbon Dioxide 31 mmol/L (22-30); Chloride 97 mmol/L (98-107); Glucose 121 mg/dL (74-99); Non-African American GFR(CKD) 5 (>60 ml/min/1.73 sqM); Platelet Count 149 k/uL (150-450); Potassium 4.4 mmol/L (3.5-5.1); Sodium 139 mmol/L (137-145); Total Bilirubin 0.4 mg/dL (0.2-1.3); Total Protein 6.7 g/dL (6.3-8.2)
[2023-01-09 12:34] LABS: INR 1.1 (<1.2); Prothrombin Time 11.2 sec (9.0-12.0)
--- NOTE | 2023-01-09 12:44 | CT ---
EXAMINATION TYPE: CT brain wo con DATE OF EXAM: 01/09/2023 COMPARISON: 12/20/2022 HISTORY: Neuro deficits. Not a code stroke CT DLP: 1147.[address] of the brain was performed. The ventricles, basal cisterns and sulci overlying the cerebral convexities demonstrate mild to moder ate enlargement. There is no evidence for intracranial hemorrhage or sulcal effacement. There is decreased attenuation about the periventricular white matter and deep white matter of both c erebral hemispheres, compatible with chronic small vessel ischemia. Differential diagnosis does inclu de demyelination. No mass effects are seen.No midline shift. Osseous calvarium is intact. If symptoms persist consider MRI. IMPRESSION: 1. Age related atrophic and chronic small vessel ischemic change without acute intracranial process s een at this time.
--- NOTE | 2023-01-09 13:12 | ED ---
General Adult HPI - General Chief complaint: Neuro Symptoms/Deficit Stated complaint: TIA Time Seen by Provider: 01/09/23 11:21 Source: EMS, RN notes reviewed, old records reviewed Mode of arrival: EMS Limitations: altered mental status, physical limitation - History of Present Illness Initial comments: 53-year-old female history of end-stage renal disease lower to person at baseline presenting with concern for right-sided weakness. Patient has residual right-sided weakness at baseline which is apparently unchanged. Patient herself is not able to contribute to the history. No reported fever. No vomiting. - Related Data Home Medications Medication Instructions Recorded Confirmed Atorvastatin [Lipitor] 40 mg PO HS@209903/23/21 12/12/22 Dulaglutide [Trulicity] 3 mg SQ WE@89903/23/21 12/12/22 Sevelamer [Renvela] 1,600 mg PO BID 04/29/22 12/12/22 Zonisamide [Zonegran] 100 mg PO TID@0600,1500,2200 09/10/22 12/12/22 levETIRAcetam [Keppra] 500 mg PO BID@0900,199909/10/22 12/12/22 levETIRAcetam [Keppra] 500 mg PO MOWEFR@159909/10/22 12/12/22 Divalproex Sodium [Depakote] 500 mg PO BID@0900,209909/12/22 12/12/22 Divalproex Sodium [Depakote] 500 mg PO MOWEFR@159909/12/22 12/12/22 Metoprolol Tartrate [Lopressor] 25 mg PO MOWEFR@209911/13/22 12/12/22 Metoprolol Tartrate [Lopressor] 25 mg PO SUTUTHSA@0900,209911/21/22 12/12/22 icosapent ethyL [Icosapent Ethyl] 1 gm PO BID@0900,209911/21/22 12/12/22 Famotidine [Pepcid] 20 mg PO DAILY@0600 12/12/22 12/12/22 Lacosamide [Vimpat] 150 mg PO BID@0900,209912/12/22 12/12/22 Ondansetron [Zofran] 4 mg PO Q8H PRN 12/12/22 12/12/22 Previous Rx's Medication Instructions Recorded Lacosamide [Vimpat] 150 mg PO MOWEFR@1600 #4 tab 11/22/22 cefUROXime axetiL [Ceftin] 500 mg PO BID 7 Days #14 tab 12/20/22 Allergies Allergy/AdvReac Type Severity Reaction Status Date / Time Penicillins Allergy Itching Verified 12/12/22 13:14 Review of Systems ROS Statement: Those systems with pertinent positive or pertinent negative responses have been documented in the HPI. ROS Other: All systems not noted in ROS Statement are negative. Past Medical History Past Medical History: Chest Pain / Angina, CVA/TIA, Diabetes Mellitus, GERD/Reflux, Hyperlipidemia, Hypertension, Memory Impairment, Osteoarthritis (OA), Renal Disease, Seizure Disorder, Thyroid Disorder Additional Past Medical History / Comment(s): Last seizure approximately one month ago. Spouse states she used to have seizures 4X per week until she had vagal nerve stimulator placed, now has seizures approximately once a week to once a month. Dialysis MOWEFR. Neuropathy, left drop foot, only able to walk short distances, otherwise uses wheelchair. 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 Never diagnosed with Sleep Apnea but spouse states she does stop breathing through the night and he has to shake her to start breathing again. Varicose veins. History of Any Multi-Drug Resistant Organisms: None Reported Past Surgical History: Section, Tonsillectomy, Uterine Ablation Additional Past Surgical History / Comment(s): Left arm fistula, loop recorder, vagus nerve stimulator. Past Anesthesia/Blood Transfusion Reactions: Motion Sickness Additional Past Anesthesia/Blood Transfusion Reaction / Comment(s): Family hx unknown, pt adopted. Past Psychological History: Bipolar Smoking Status: Former smoker Past Alcohol Use History: None Reported Past Drug Use History: None Reported - Past Family History Father Family Medical History: Unable to Obtain Additional Family Medical History / Comment(s): Pt adopted. General Exam Limitations: altered mental status, physical limitation General appearance: alert, in no apparent distress Head exam: Present: atraumatic, normocephalic Eye exam: Present: normal appearance, PERRL ENT exam: Present: normal exam Neck exam: Present: normal inspection. Absent: tenderness, meningismus Respiratory exam: Present: normal lung sounds bilaterally. Absent: respiratory distress, wheezes Cardiovascular Exam: Present: regular rate, normal rhythm GI/Abdominal exam: Present: soft. Absent: distended, tenderness, guarding Neurological exam: Present: alert. Absent: oriented X3 Skin exam: Present: warm, dry, intact. Absent: cyanosis, diaphoretic Course Vital Signs 01/09/23 11:18 Temperature 98.7 F Pulse Rate 83 Respiratory 18 Rate Blood Pressure 160/82 O2 Sat by Pulse 100 Oximetry Medical Decision Making - Medical Decision Making Was pt. sent in by a medical professional or institution (, PA, [facility], urgent care, hospital, or senior living...) When possible be specific @ -No Did you speak to anyone other than the patient for history (EMS, parent, family, police, friend...)? What history was obtained from this source @ -[Paramedics Did you review nursing and triage notes (agree or disagree)? Why? @ -I reviewed and agree with nursing and triage notes Were old charts reviewed (outside hosp., previous admission, EMS record, old EKG, old radiological studies, urgent care reports/EKG's, senior living records)? Report findings @ -No old charts were reviewed Differential Diagnosis (chest pain, altered mental status, abdominal pain women, abdominal pain men, vaginal bleeding, weakness, fever, dyspnea, syncope, headache, dizziness, GI bleed, back pain, seizure, CVA, palpatations, mental health, musculoskeletal)? @ Differential Altered Mental Status: Hypoglycemia, DKA, hypercapnia, ETOH, overdose, CO poisoning, trauma, myxedema coma, HTN encephalopathy, infection, encephalitis, psychosis, intercranial hemorrhage, hepatic encephalopathy, meningitis, CVA, this is not meant to be an all-inclusive list EKG interpreted by me (3pts min.). @ -[EKG sinus rhythm with a rate of 86, ND interval 200, QRS duration 100, QTC [address] segment elevation. X-rays interpreted by me (1pt min.). @ -None done CT interpreted by me (1pt min.). @ -Negative for acute intracranial process U/S interpreted by me (1pt. min.). @ -None done What testing was considered but not performed or refused? (CT, X-rays, U/S, labs)? Why? @ -None What meds were considered but not given or refused? Why? @ -None Did you discuss the management of the patient with other professionals (professionals i.e. , PA, [facility]OWER, lab, RT, psych nurse, social worker masters, hand drawer in helper, teacher, revenue officer, rn case management)? Give summary @ -No Was smoking cessation discussed for >3mins.? @ -No Was critical care preformed (if so, how long)? @ -No Were there social determinants of health that impacted care today? How? (Homelessness, low income, unemployed, alcoholism, drug addiction, transportation, low edu. Level, literacy, decrease access to med. care, intermediate, rehab)? @ -No Was there de-escalation of care discussed even if they declined (Discuss DNR or withdrawal of care, Hospice)? DNR status @ -No What co-morbidities impacted this encounter? (DM, HTN, Smoking, COPD, CAD, Cancer, CVA, ARF, Chemo, Hep., AIDS, mental health diagnosis, sleep apnea, morbid obesity)? @ -Hypertension, TIA, end-stage renal disease Was patient admitted / discharged? Hospital course, mention meds given and route, prescriptions, significant lab abnormalities, going to OR and other pertinent info. @ 23-year-old female with concern for change in mental status versus TIA. I did discuss at length with nursing staff was able to confirm that this is the patient's baseline according to senior living staff where she resides. There's been no acute change. Patient received laboratory testing which is consistent with end-stage renal disease without any acute abnormality and a brain CT which is negative for intracranial hemorrhage mass effect or acute findings.. Patient is stable for discharge back to the senior living. Undiagnosed new problem with uncertain prognosis? @ -No Drug Therapy requiring intensive monitoring for toxicity (Heparin, Nitro, Insulin, Cardizem)? @ -No Were any procedures done? @ -No Diagnosis/symptom? @ -[Altered mental status, currently at baseline Acute, or Chronic, or Acute on Chronic? @ -[Acute Uncomplicated (without systemic symptoms) or Complicated (systemic symptoms)? @ -default Side effects of treatment? @ -No Exacerbation, Progression, or Severe Exacerbation? @ -No Poses a threat to life or bodily function? How? (Chest pain, USA, CO, pneumonia, PE, COPD, DKA, ARF, appy, cholecystitis, CVA, Diverticulitis, Homicidal, Suicidal, threat to staff... and all critical care pts) @ -No - Lab Data Result diagrams: 01/09/23 12:16 01/09/23 12:16 Lab Results 01/09/23 01/09/23 01/09/23 Range/Units 12:16 12:16 12:16 WBC 5.8 (3.8-10.6) k/uL RBC 3.41 L (3.80-5.40) m/uL Hgb 11.0 L (11.4-16.0) gm/dL Hct 32.9 L (34.0-46.0) % MCV 96.6 (80.0-100.0) fL MCH 32.2 (25.0-35.0) pg MCHC 33.3 (31.0-37.0) g/dL RDW 14.0 (11.5-15.5) % Plt Count 149 L D (150-450) k/uL MPV 8.2 Neutrophils % 53 % Lymphocytes % 38 % Monocytes % 6 % Eosinophils % 2 % Basophils % 0 % Neutrophils # 3.1 (1.3-7.7) k/uL Lymphocytes # 2.2 (1.0-4.8) k/uL Monocytes # 0.3 (0-1.0) k/uL Eosinophils # 0.1 (0-0.7) k/uL Basophils # 0.0 (0-0.2) k/uL PT 11.2 (9.0-12.0) sec INR 1.1 (<1.2) Sodium 139 (137-145) mmol/L Potassium 4.4 (3.5-5.1) mmol/L Chloride 97 L (98-107) mmol/L Carbon Dioxide 31 H (22-30) mmol/L Anion Gap 11 mmol/L BUN 49 H (7-17) mg/dL Creatinine 8.19 H* (0.52-1.04) mg/dL Est GFR (CKD-EPI)AfAm 6 (>60 ml/min/1.73 sqM) Est GFR (CKD-EPI)NonAf 5 (>60 ml/min/1.73 sqM) Glucose 121 H (74-99) mg/dL Calcium 9.4 (8.4-10.2) mg/dL Total Bilirubin 0.4 (0.2-1.3) mg/dL AST 21 (14-36) U/L ALT 13 (4-34) U/L Alkaline Phosphatase 83 (38-126) U/L Total Protein 6.7 (6.3-8.2) g/dL Albumin 3.6 (3.5-5.0) g/dL Disposition Clinical Impression: End stage renal disease, Altered mental status Disposition: HOME SELF-CARE Condition: Fair Instructions (If sedation given, give patient instructions): Altered Mental Status (ED) Is patient prescribed a controlled substance at d/c from ED?: No Referrals: None,Stated [Primary Care Provider] - 1-2 days Time of Disposition: 13:24
== END 2023-01-09 13:32 | disposition home or self-care (01) ==
LOC: EC 11:16
DX: R41.82 Altered mental status, unspecified (principal); N18.6 End stage renal disease; I12.0 Hypertensive chronic kidney disease with stage 5 chronic kidney disease or end stage renal disease; K21.9 Gastro-esophageal reflux disease without esophagitis; M19.90 Unspecified osteoarthritis, unspecified site; E11.40 Type 2 diabetes mellitus with diabetic neuropathy, unspecified; E11.22 Type 2 diabetes mellitus with diabetic chronic kidney disease; E78.5 Hyperlipidemia, unspecified; Z79.899 Other long term (current) drug therapy; Z87.891 Personal history of nicotine dependence; Z88.0 Allergy status to penicillin; Z99.2 Dependence on renal dialysis
CPT/HCPCS: 36415; 70450; 80053; 85025; 85610; 93005; 99285

== ENCOUNTER 2023-01-10 11:50 | Inpatient (IN) | payer MEDICARE, OTHER ==
--- NOTE | 2023-01-10 12:51 | ED ---
Altered Mental Status HPI - General Chief Complaint: Altered Mental Status Stated Complaint: AMS Time Seen by Provider: 01/10/23 12:18 Source: EMS, RN notes reviewed, old records reviewed Mode of arrival: EMS Limitations: altered mental status - History of Present Illness Initial Comments: 53-year-old female history of chronic renal disease who was seen here yesterday for an evaluation for altered mental status also is a dialysis patient was sent in from her nursing facility with complaints of progressively worsening altered mental status and now with nausea. She is response with the physical stimulus and apparently when she does started to retch she will become more responsive. No falls reported apparently worked up yesterday which included a CAT scan was unremarkable. It is unclear if she had dialysis yesterday and she was sent in from a dialysis center at that time. No other information available at this time MD Complaint: altered mental status - Related Data Home Medications Medication Instructions Recorded Confirmed Atorvastatin [Lipitor] 40 mg PO HS@209903/23/21 01/10/23 Dulaglutide [Trulicity] 3 mg SQ WE@0900 03/23/21 01/10/23 Sevelamer [Renvela] 1,600 mg PO BID@0900,209904/29/22 01/10/23 Zonisamide [Zonegran] 100 mg PO TID@0600,1500,2200 09/10/22 01/10/23 levETIRAcetam [Keppra] 500 mg PO BID@0900,199909/10/22 01/10/23 levETIRAcetam [Keppra] 500 mg PO MOWEFR@1500 09/10/22 01/10/23 Divalproex Sodium [Depakote] 500 mg PO BID@0900,209909/12/22 01/10/23 Divalproex Sodium [Depakote] 500 mg PO MOWEFR@1600 09/12/22 01/10/23 Metoprolol Tartrate [Lopressor] 25 mg PO MOWEFR@209911/13/22 01/10/23 Metoprolol Tartrate [Lopressor] 25 mg PO SUTUTHSA@0900,209911/21/22 01/10/23 icosapent ethyL [Icosapent Ethyl] 1 gm PO BID@0900,209911/21/22 01/10/23 Famotidine [Pepcid] 20 mg PO DAILY@0600 12/12/22 01/10/23 Lacosamide [Vimpat] 150 mg PO BID@0900,2100 12/12/22 01/10/23 Ondansetron [Zofran] 4 mg PO Q8H PRN 12/12/22 01/10/23 amLODIPine [Norvasc] 5 mg PO DAILY@0900 01/10/23 01/10/23 Previous Rx's Medication Instructions Recorded Lacosamide [Vimpat] 150 mg PO MOWEFR@1600 #4 tab 11/22/22 Allergies Allergy/AdvReac Type Severity Reaction Status Date / Time Penicillins Allergy Itching Verified 01/10/23 13:00 Review of Systems ROS Statement: Those systems with pertinent positive or pertinent negative responses have been documented in the HPI. ROS Other: All systems not noted in ROS Statement are negative. Past Medical History Past Medical History: Chest Pain / Angina, CVA/TIA, Diabetes Mellitus, GERD/Reflux, Hyperlipidemia, Hypertension, Memory Impairment, Osteoarthritis (OA), Renal Disease, Seizure Disorder, Thyroid Disorder Additional Past Medical History / Comment(s): Last seizure approximately one month ago. Spouse states she used to have seizures 4X per week until she had vagal nerve stimulator placed, now has seizures approximately once a week to once a month. Dialysis MOWEFR. Neuropathy, left drop foot, only able to walk short distances, otherwise uses wheelchair. 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 Never diagnosed with Sleep Apnea but spouse states she does stop breathing through the night and he has to shake her to start breathing again. Varicose veins. History of Any Multi-Drug Resistant Organisms: None Reported Past Surgical History: Section, Tonsillectomy, Uterine Ablation Additional Past Surgical History / Comment(s): Left arm fistula, loop recorder, vagus nerve stimulator. Past Anesthesia/Blood Transfusion Reactions: Motion Sickness Additional Past Anesthesia/Blood Transfusion Reaction / Comment(s): Family hx unknown, pt adopted. Past Psychological History: Bipolar Smoking Status: Former smoker Past Alcohol Use History: None Reported Past Drug Use History: None Reported - Past Family History Father Family Medical History: Unable to Obtain Additional Family Medical History / Comment(s): Pt adopted. General Exam - General Exam Comments Initial Comments: Is a well-developed well-nourished lethargic female who does respond to physical stimulus Limitations: altered mental status General appearance: lethargic Head exam: Present: atraumatic, normocephalic, normal inspection Eye exam: Present: normal appearance, PERRL, EOMI. Absent: scleral icterus, conjunctival injection, periorbital swelling ENT exam: Present: normal exam, mucous membranes moist Neck exam: Present: normal inspection, full ROM, other (No stridor JVD or bruits). Absent: tenderness, meningismus, lymphadenopathy Respiratory exam: Present: normal lung sounds bilaterally. Absent: respiratory distress, wheezes, rales, rhonchi, stridor Cardiovascular Exam: Present: regular rate, normal rhythm, normal heart sounds. Absent: systolic murmur, diastolic murmur, rubs, gallop, clicks GI/Abdominal exam: Present: soft, normal bowel sounds. Absent: distended, tenderness, guarding, rebound, rigid, bruit, pulsatile mass Extremities exam: Present: normal inspection, full ROM, normal capillary refill. Absent: tenderness, pedal edema, joint swelling, calf tenderness Back exam: Present: normal inspection Neurological exam: Present: alert, altered, CN II-XII intact Psychiatric exam: Present: normal affect, normal mood Skin exam: Present: warm, dry, intact, normal color. Absent: rash Course Vital Signs 01/10/23 01/10/23 01/10/23 11:57 12:14 14:55 Temperature 97.3 F L Pulse Rate 82 89 Respiratory 16 18 Rate Blood Pressure 198/103 161/90 O2 Sat by Pulse 99 100 Oximetry 01/10/23 01/10/23 16:42 16:50 Temperature Pulse Rate 92 86 Respiratory 18 16 Rate Blood Pressure O2 Sat by Pulse Oximetry Medical Decision Making - Medical Decision Making I did discuss the findings with Dr. Mohan who did see the patient in emergency department patient be admitted with diagnosis of altered mental status also chronic renal failure in need of dialysis Was pt. sent in by a medical professional or institution (, PA, FREIGHT CONDUCTOR, urgent care, hospital, or prison...) When possible be specific @ -Dr. Cantrell who treated the patient yesterday Did you speak to anyone other than the patient for history (EMS, parent, family, police, friend...)? What history was obtained from this source @ -Per medics Did you review nursing and triage notes (agree or disagree)? Why? @ -I reviewed and agree with nursing and triage notes Were old charts reviewed (outside hosp., previous admission, EMS record, old EKG, old radiological studies, urgent care reports/EKG's, prison records)? Report findings @ -Yesterday's old charts were reviewed Differential Diagnosis (chest pain, altered mental status, abdominal pain women, abdominal pain men, vaginal bleeding, weakness, fever, dyspnea, syncope, headache, dizziness, GI bleed, back pain, seizure, CVA, palpatations, mental health, musculoskeletal)? @ -Altered mental status, UTI, uremia EKG interpreted by me (3pts min.). @ -EKG interpreted by me at time of service sinus rhythm 89. Interval 186 QRS duration 97 QT since QTC 380/426 artifact present in V5 no acute ST-T wave changes X-rays interpreted by me (1pt min.). @ -Interpreted by me no acute process CT interpreted by me (1pt min.). @ -None done U/S interpreted by me (1pt. min.). @ -None done What testing was considered but not performed or refused? (CT, X-rays, U/S, labs)? Why? @ -None What meds were considered but not given or refused? Why? @ -None Did you discuss the management of the patient with other professionals (professionals i.e. , PA, FREIGHT CONDUCTOR, lab, RT, psych nurse, home health care social worker, quality assurance lead, teacher, medical information officer, bilingual case manager)? Give summary @ -2 Mohan who did see the patient in the emergency department Was smoking cessation discussed for >3mins.? @ -No Was critical care preformed (if so, how long)? @ -1 minutes Were there social determinants of health that impacted care today? How? (Homelessness, low income, unemployed, alcoholism, drug addiction, transportation, low edu. Level, literacy, decrease access to med. care, fdc, rehab)? @ -alf patient Was there de-escalation of care discussed even if they declined (Discuss DNR or withdrawal of care, Hospice)? DNR status @ -No What co-morbidities impacted this encounter? (DM, HTN, Smoking, COPD, CAD, Cancer, CVA, ARF, Chemo, Hep., AIDS, mental health diagnosis, sleep apnea, morbid obesity)? @ -Chronic renal failure Was patient admitted / discharged? Hospital course, mention meds given and route, prescriptions, significant lab abnormalities, going to OR and other pertinent info. @ -Was admitted for inpatient evaluation and treatment also dialysis Undiagnosed new problem with uncertain prognosis? @ -No Drug Therapy requiring intensive monitoring for toxicity (Heparin, Nitro, Insulin, Cardizem)? @ -No Were any procedures done? @ -No Diagnosis/symptom? @ -Altered mental status, dehydration, hypotensive episode, acute and chronic renal failure Acute, or Chronic, or Acute on Chronic? @ -Acute on chronic Uncomplicated (without systemic symptoms) or Complicated (systemic symptoms)? @ -Complicated Side effects of treatment? @ -No Exacerbation, Progression, or Severe Exacerbation? @ -No Poses a threat to life or bodily function? How? (Chest pain, [place], CO, pneumonia, PE, COPD, DKA, ARF, appy, cholecystitis, CVA, Diverticulitis, Homicidal, Suicidal, threat to staff... and all critical care pts) @ -Acute on chronic renal failure - Lab Data Result diagrams: 01/10/23 13:50 01/10/23 13:50 Lab Results 01/10/23 01/10/23 01/10/23 Range/Units 13:50 13:50 13:50 WBC 9.1 (3.8-10.6) k/uL RBC 3.29 L (3.80-5.40) m/uL Hgb 10.9 L (11.4-16.0) gm/dL Hct 31.5 L (34.0-46.0) % MCV 95.8 (80.0-100.0) fL MCH 33.0 (25.0-35.0) pg MCHC 34.4 (31.0-37.0) g/dL RDW 14.0 (11.5-15.5) % Plt Count 153 (150-450) k/uL MPV 8.7 Neutrophils % 76 % Lymphocytes % 19 % Monocytes % 4 % Eosinophils % 0 % Basophils % 0 % Neutrophils # 6.9 (1.3-7.7) k/uL Lymphocytes # 1.7 (1.0-4.8) k/uL Monocytes # 0.4 (0-1.0) k/uL Eosinophils # 0.0 (0-0.7) k/uL Basophils # 0.0 (0-0.2) k/uL PT 10.8 (9.0-12.0) sec INR 1.0 (<1.2) APTT 19.8 L (22.0-30.0) sec Sodium 138 (137-145) mmol/L Potassium 4.4 (3.5-5.1) mmol/L Chloride 99 (98-107) mmol/L Carbon Dioxide 24 (22-30) mmol/L Anion Gap 15 mmol/L BUN 63 H (7-17) mg/dL Creatinine 9.60 H* (0.52-1.04) mg/dL Est GFR (CKD-EPI)AfAm 5 (>60 ml/min/1.73 sqM) Est GFR (CKD-EPI)NonAf 4 (>60 ml/min/1.73 sqM) Glucose 186 H (74-99) mg/dL POC Glucose (mg/dL) (70-110) mg/dL POC Glu Grizzly Worker ID Calcium 9.2 (8.4-10.2) mg/dL Magnesium 2.3 (1.6-2.3) mg/dL Total Bilirubin 0.5 (0.2-1.3) mg/dL AST 25 (14-36) U/L ALT 14 (4-34) U/L Alkaline Phosphatase 80 (38-126) U/L Ammonia (<30) umol/L Troponin I (0.000-0.034) ng/mL Total Protein 6.5 (6.3-8.2) g/dL Albumin 3.6 (3.5-5.0) g/dL Urine Color Urine Appearance (Clear) Urine pH (5.0-8.0) Ur Specific Clarinda (1.001-1.035) Urine Protein (Negative) Urine Glucose (UA) (Negative) Urine Ketones (Negative) Urine Blood (Negative) Urine Nitrite (Negative) Urine Bilirubin (Negative) Urine Urobilinogen (<2.0) mg/dL Ur Leukocyte Esterase (Negative) Urine RBC (0-5) /hpf Urine WBC (0-5) /hpf Ur Squamous Epith Cells (0-4) /hpf Ur Transition Epith Cell (0-1) /hpf Urine Bacteria (None) /hpf Urine Opiates Screen (NotDetected) Ur Oxycodone Screen (NotDetected) Urine Methadone Screen (NotDetected) Ur Propoxyphene Screen (NotDetected) Ur Barbiturates Screen (NotDetected) U Tricyclic Antidepress (NotDetected) Ur Phencyclidine Scrn (NotDetected) Ur Amphetamines Screen (NotDetected) U Methamphetamines Scrn (NotDetected) U Benzodiazepines Scrn (NotDetected) Urine Cocaine Screen (NotDetected) U Marijuana (THC) Screen (NotDetected) 01/10/23 01/10/23 01/10/23 Range/Units 13:50 13:50 14:15 WBC (3.8-10.6) k/uL RBC (3.80-5.40) m/uL Hgb (11.4-16.0) gm/dL Hct (34.0-46.0) % MCV (80.0-100.0) fL MCH (25.0-35.0) pg MCHC (31.0-37.0) g/dL RDW (11.5-15.5) % Plt Count (150-450) k/uL MPV Neutrophils % % Lymphocytes % % Monocytes % % Eosinophils % % Basophils % % Neutrophils # (1.3-7.7) k/uL Lymphocytes # (1.0-4.8) k/uL Monocytes # (0-1.0) k/uL Eosinophils # (0-0.7) k/uL Basophils # (0-0.2) k/uL PT (9.0-12.0) sec INR (<1.2) APTT (22.0-30.0) sec Sodium (137-145) mmol/L Potassium (3.5-5.1) mmol/L Chloride (98-107) mmol/L Carbon Dioxide (22-30) mmol/L Anion Gap mmol/L BUN (7-17) mg/dL Creatinine (0.52-1.04) mg/dL Est GFR (CKD-EPI)AfAm (>60 ml/min/1.73 sqM) Est GFR (CKD-EPI)NonAf (>60 ml/min/1.73 sqM) Glucose (74-99) mg/dL POC Glucose (mg/dL) 190 H (70-110) mg/dL POC Glu Grizzly Worker ID Eleanor Dasilva Calcium (8.4-10.2) mg/dL Magnesium (1.6-2.3) mg/dL Total Bilirubin (0.2-1.3) mg/dL AST (14-36) U/L ALT (4-34) U/L Alkaline Phosphatase (38-126) U/L Ammonia 11 (<30) umol/L Troponin I <0.012 (0.000-0.034) ng/mL Total Protein (6.3-8.2) g/dL Albumin (3.5-5.0) g/dL Urine Color Urine Appearance (Clear) Urine pH (5.0-8.0) Ur Specific Clarinda (1.001-1.035) Urine Protein (Negative) Urine Glucose (UA) (Negative) Urine Ketones (Negative) Urine Blood (Negative) Urine Nitrite (Negative) Urine Bilirubin (Negative) Urine Urobilinogen (<2.0) mg/dL Ur Leukocyte Esterase (Negative) Urine RBC (0-5) /hpf Urine WBC (0-5) /hpf Ur Squamous Epith Cells (0-4) /hpf Ur Transition Epith Cell (0-1) /hpf Urine Bacteria (None) /hpf Urine Opiates Screen (NotDetected) Ur Oxycodone Screen (NotDetected) Urine Methadone Screen (NotDetected) Ur Propoxyphene Screen (NotDetected) Ur Barbiturates Screen (NotDetected) U Tricyclic Antidepress (NotDetected) Ur Phencyclidine Scrn (NotDetected) Ur Amphetamines Screen (NotDetected) U Methamphetamines Scrn (NotDetected) U Benzodiazepines Scrn (NotDetected) Urine Cocaine Screen (NotDetected) U Marijuana (THC) Screen (NotDetected) 01/10/23 Range/Units 15:50 WBC (3.8-10.6) k/uL RBC (3.80-5.40) m/uL Hgb (11.4-16.0) gm/dL Hct (34.0-46.0) % MCV (80.0-100.0) fL MCH (25.0-35.0) pg MCHC (31.0-37.0) g/dL RDW (11.5-15.5) % Plt Count (150-450) k/uL MPV Neutrophils % % Lymphocytes % % Monocytes % % Eosinophils % % Basophils % % Neutrophils # (1.3-7.7) k/uL Lymphocytes # (1.0-4.8) k/uL Monocytes # (0-1.0) k/uL Eosinophils # (0-0.7) k/uL Basophils # (0-0.2) k/uL PT (9.0-12.0) sec INR (<1.2) APTT (22.0-30.0) sec Sodium (137-145) mmol/L Potassium (3.5-5.1) mmol/L Chloride (98-107) mmol/L Carbon Dioxide (22-30) mmol/L Anion Gap mmol/L BUN (7-17) mg/dL Creatinine (0.52-1.04) mg/dL Est GFR (CKD-EPI)AfAm (>60 ml/min/1.73 sqM) Est GFR (CKD-EPI)NonAf (>60 ml/min/1.73 sqM) Glucose (74-99) mg/dL POC Glucose (mg/dL) (70-110) mg/dL POC Glu Grizzly Worker ID Calcium (8.4-10.2) mg/dL Magnesium (1.6-2.3) mg/dL Total Bilirubin (0.2-1.3) mg/dL AST (14-36) U/L ALT (4-34) U/L Alkaline Phosphatase (38-126) U/L Ammonia (<30) umol/L Troponin I (0.000-0.034) ng/mL Total Protein (6.3-8.2) g/dL Albumin (3.5-5.0) g/dL Urine Color Yellow Urine Appearance Clear (Clear) Urine pH 7.0 (5.0-8.0) Ur Specific Clarinda 1.014 (1.001-1.035) Urine Protein 3+ H (Negative) Urine Glucose (UA) 1+ H (Negative) Urine Ketones Negative (Negative) Urine Blood Trace H (Negative) Urine Nitrite Negative (Negative) Urine Bilirubin Negative (Negative) Urine Urobilinogen <2.0 (<2.0) mg/dL Ur Leukocyte Esterase Large H (Negative) Urine RBC 4 (0-5) /hpf Urine WBC 7 H (0-5) /hpf Ur Squamous Epith Cells <1 (0-4) /hpf Ur Transition Epith Cell <1 (0-1) /hpf Urine Bacteria Few H (None) /hpf Urine Opiates Screen Not Detected (NotDetected) Ur Oxycodone Screen Not Detected (NotDetected) Urine Methadone Screen Not Detected (NotDetected) Ur Propoxyphene Screen Not Detected (NotDetected) Ur Barbiturates Screen Not Detected (NotDetected) U Tricyclic Antidepress Not Detected (NotDetected) Ur Phencyclidine Scrn Not Detected (NotDetected) Ur Amphetamines Screen Not Detected (NotDetected) U Methamphetamines Scrn Not Detected (NotDetected) U Benzodiazepines Scrn Not Detected (NotDetected) Urine Cocaine Screen Not Detected (NotDetected) U Marijuana (THC) Screen Not Detected (NotDetected) - Radiology Data Interpreted by me: Imaging interpreted by me no acute processes seen. Critical Care Time Critical Care Time: Yes Total Critical Care Time: 31 Disposition Clinical Impression: Delirium due to general medical condition, Acute on chronic renal failure, Hypotensive episode Disposition: ADMITTED IP TO THIS [facility] Condition: Fair Referrals: Gabriel aTylor MD [Primary Care Provider] - 1-2 days Decision Date: 01/10/23 Decision Time: 17:00
[2023-01-10 13:55] LABS: Basophils % (A) 0 %; Eosinophils % (A) 0 %; HCT 31.5 % (34.0-46.0); HGB 10.9 gm/dL (11.4-16.0); Lymphocytes # (A) 1.7 k/uL (1.0-4.8); Lymphocytes % (A) 19 %; MCHC 34.4 g/dL (31.0-37.0); MCV 95.8 fL (80.0-100.0); Mean Platelet Volume 8.7; Monocytes # (A) 0.4 k/uL (0-1.0); Monocytes % (A) 4 %; Neutrophils # (A) 6.9 k/uL (1.3-7.7); Neutrophils % (A) 76 %; Platelet Count 153 k/uL (150-450); RBC 3.29 m/uL (3.80-5.40); WBC 9.1 k/uL (3.8-10.6)
[2023-01-10 14:16] LABS: Glucose,Whole Blood 190 mg/dL (70-110)
[2023-01-10 14:23] LABS: ALT 14 U/L (4-34); AST 25 U/L (14-36); African American GFR (CKD) 5 (>60 ml/min/1.73 sqM); Albumin 3.6 g/dL (3.5-5.0); Alkaline Phosphatase 80 U/L (38-126); Anion Gap 15 mmol/L; Blood Urea Nitrogen 63 mg/dL (7-17); Calcium 9.2 mg/dL (8.4-10.2); Carbon Dioxide 24 mmol/L (22-30); Chloride 99 mmol/L (98-107); Glucose 186 mg/dL (74-99); Magnesium 2.3 mg/dL (1.6-2.3); Non-African American GFR(CKD) 4 (>60 ml/min/1.73 sqM); Potassium 4.4 mmol/L (3.5-5.1); Sodium 138 mmol/L (137-145); Total Bilirubin 0.5 mg/dL (0.2-1.3); Total Protein 6.5 g/dL (6.3-8.2)
[2023-01-10 14:24] LABS: Prothrombin Time 10.8 sec (9.0-12.0)
[2023-01-10 14:34] LABS: Partial Thromboplastin Time 19.8 sec (22.0-30.0)
--- NOTE | 2023-01-10 15:08 | XR ---
EXAMINATION TYPE: XR chest 2V DATE OF EXAM: 01/10/2023 COMPARISON: 12/20/2022 TECHNIQUE: PA and lateral views submitted. HISTORY: Altered mental status FINDINGS: The lungs are clear and there is no pneumothorax, pleural effusion, or focal pneumonia. Heart size normal and no overt failure. There is a patellar device overlying the left hemithorax with lead exten ding cephalad. There is a subcutaneous loop recorder. Left lower lobe infiltrate. Diffuse osteopenia. IMPRESSION: 1. Left lower lobe infiltrate with small effusion.
[2023-01-10] MEDS ORDERED: SODIUM CHLORIDE 0.9% 500 ML 500 ML IV STA (15:24)
[2023-01-10 16:10] LABS: Appearance,Urine Clear (Clear); Bacteria,Urine Few /hpf; Bilirubin,Urine Negative (Negative); Blood,Urine Trace (Negative); Color,Urine Yellow; Glucose,Urine (UA) 1+ (Negative); Ketones,Urine Negative (Negative); Leukocyte Esterase,Urine Large (Negative); Nitrite,Urine Negative (Negative); Protein,Urine 3+ (Negative); RBC,Urine 4 /hpf (0-5); Specific Gravity,Urine 1.014 (1.001-1.035); Squamous Epithelial Cell,Urine <1 /hpf (0-4); Transitional Epi Cells,Urine <1 /hpf (0-1); Urobilinogen,Urine <2.0 mg/dL (<2.0); WBC,Urine 7 /hpf (0-5)
[2023-01-10 16:12] LABS: Amphetamine Screen,Urine Not Detected (NotDetected); Barbiturate Screen,Urine Not Detected (NotDetected); Benzodiazepines Screen,Urine Not Detected (NotDetected); Cocaine Screen,Urine Not Detected (NotDetected); Methadone Screen, Urine Not Detected (NotDetected); Opiate Screen,Urine Not Detected (NotDetected); Oxycodone Screen, Urine Not Detected (NotDetected); Phencyclidine Screen,Urine Not Detected (NotDetected); Tricyclic Antidepressant,Urine Not Detected (NotDetected); Urn Cannabinoid Scrn Not Detected (NotDetected)
[2023-01-10] MEDS: IPRATROPIUM-ALBUTEROL 3 ML NEB INHALATION SCH ×2 (16:42→20:04)
--- NOTE | 2023-01-10 17:25 | HP ---
HISTORY AND PHYSICAL CHIEF COMPLAINT: Change in mental status. HISTORY OF PRESENT ILLNESS: This is a 53-year-old woman with a past medical history of chronic renal failure, on hemodialysis and multiple hospital admissions. Currently, the patient is in a nursing facility, and the patient is complaining of change in mental status. The patient apparently could only complete 1 hour of hemodialysis yesterday. The patient's blood pressure is also borderline. The patient is being closely monitored. The patient is unable to give any coherent history. The CAT scan yesterday done was apparently normal. The chest x-ray done today showed possible left lower lobe infiltrate with some effusion, but not much fluid overload is being noted. The patient is being closely monitored at this time. PAST MEDICAL HISTORY: Reviewed includes chronic renal failure. Rest of the history and rest of the chart are also reviewed. HOME MEDICATIONS: Reviewed include Zofran. Doses and rest of the medications reviewed. ALLERGIES: Reviewed include penicillin. FAMILY HISTORY: Could not be taken because of the patient's change in mental status. SOCIAL HISTORY: Could not be taken because of the patient's change in mental status. REVIEW OF SYSTEMS: Could not be taken because of the patient's change in mental status. PHYSICAL EXAMINATION: VITAL SIGNS: Pulse 89, blood pressure 165/90, respirations 18. HEENT: Conjunctivae are normal. NECK: No jugular venous distention. CARDIOVASCULAR: S1 and S2 muffled. RESPIRATORY: Few scattered rhonchi and crackles. ABDOMEN: Soft and nontender. LEGS: No edema. NERVOUS SYSTEM: Diffusely weak. The patient is confused. SKIN: No ulcers or rashes. JOINTS: No active deforming arthropathy. LABORATORY DATA: Reviewed. ASSESSMENT: 1. Change in mental status, metabolic encephalopathy, possibly secondary from inadequate hemodialysis during the last time. 2. Possible left lower lobe pneumonia, rule out sepsis. 3. Relative hypotension and dehydration. 4. History of diabetes mellitus, type 2. 5. Hypertension. 6. Hyperlipidemia. 7. Seizure disorder. 8. Multiple medical issues. RECOMMENDATIONS AND DISCUSSION: In this 53-year-old woman presented with multiple complex medical issues, we will monitor the patient closely. I would recommend Nephrology consultation and possible urgent hemodialysis. I would also recommend empiric antibiotics and cultures to rule out the possibility of sepsis. I would also recommend consultation with Dr. Reynoso. Guarded prognosis. Further recommendations to follow. If the blood pressure is not improving, the patient might require an ICU admission. Otherwise, we will closely monitor. Once again, the prognosis is extremely guarded because of above-mentioned multiple medical process. Neurology also will be consulted. JOYCE / DAYNA: [id number] /
[2023-01-10] MEDS ORDERED: NALOXONE 0.4 MG/ML 1 ML VIAL IV PRN (18:06)
[2023-01-10] MEDS ORDERED: PNEUMONIA PROTOCOL UTILIZED 1 EACH MISC PO PRN (18:06)
[2023-01-10] MEDS: LEVOFLOXACIN 500MG-D5W PMX 500 MG in DEXTROSE/WATER 1 100ML.BAG IVPB SCH (18:16)
[2023-01-11] MEDS: IPRATROPIUM-ALBUTEROL 3 ML NEB INHALATION SCH ×3 (07:28→19:46)
[2023-01-11] MEDS ORDERED: DEXTROSE 50% SYRINGE 50 ML IVP PRN ×2 (07:36)
--- NOTE | 2023-01-11 07:38 | P.CNPUL ---
History of Present Illness Consult date: 01/11/23 Requesting physician: Mehrdad Mohan Reason for consult: pneumonia Chief complaint: Altered mental status History of present illness: I am seeing this patient in new consultation today 01/11/2023 in the emergency room possible left lower lobe pneumonia. Patient is a 53-year-old female with past medical history significant for multiple comorbidities including end-stage renal disease, seizure disorder, CVA, diabetes mellitus, GERD, hyperlipidemia, hypertension, hypothyroidism. Patient was sent in from [facility] on the [facility] yesterday afternoon for concerns about altered mental status. There was also concern for nausea and retching. She has had multiple prior emergency room visits and hospital admissions in the past for similar symptoms. She actually had an ER visit on January 09 for altered mental status. She was discharged back to [facility], and returned yesterday afternoon. She also has history of ventilator dependence for status epilepticus. No reports of seizure activity on this adm ission. Patient apparently continues to have seizures about once per week to once per month. Patient is currently sitting up in bed, alert but nonverbal, in no acute distress. She does not follow commands. She is on 2 L/m nasal cannula and oxygenating at 100%. Chest x-ray on arrival shows small left pleural effusion and possible left lower lobe infiltrate. Patient is currently on Levaquin for empiric antibiotics. She is afebrile. CBC on arrival was unremarkable. BMP shows sodium 138, potassium 4.4, chloride 99, serum bicarb 24, BUN 63, creatinine 9.6, glucose 186. Patient reportedly does receive hemodialysis on Monday, Monday, Monday schedule. Troponins negative 1. Ammonia level was low. Urinalysis was not particularly concerning for UTI. Brain CT without contrast, one day prior, shows age-related atrophic and chronic small vessel ischemia without any acute intracranial process. Patient will be admitted to the cardiac stepdown unit once bed available. Review of Systems ROS unobtainable: due to mental status Past Medical History Past Medical History: Chest Pain / Angina, CVA/TIA, Diabetes Mellitus, GERD/Reflux, Hyperlipidemia, Hypertension, Memory Impairment, Osteoarthritis (OA), Renal Disease, Seizure Disorder, Thyroid Disorder Additional Past Medical History / Comment(s): Last seizure approximately one month ago. Spouse states she used to have seizures 4X per week until she had vagal nerve stimulator placed, now has seizures approximately once a week to once a month. Dialysis MOWEFR. Neuropathy, left drop foot, only able to walk short distances, otherwise uses wheelchair. 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 Never diagnosed with Sleep Apnea but spouse states she does stop breathing through the night and he has to shake her to start breathing again. Varicose veins. History of Any Multi-Drug Resistant Organisms: None Reported Past Surgical History: Section, Tonsillectomy, Uterine Ablation Additional Past Surgical History / Comment(s): Left arm fistula, loop recorder, vagus nerve stimulator. Past Anesthesia/Blood Transfusion Reactions: Motion Sickness Additional Past Anesthesia/Blood Transfusion Reaction / Comment(s): Family hx unknown, pt adopted. Past Psychological History: Bipolar Smoking Status: Former smoker Past Alcohol Use History: None Reported Past Drug Use History: None Reported - Past Family History Father Family Medical History: Unable to Obtain Additional Family Medical History / Comment(s): Pt adopted. Medications and Allergies Home Medications Medication Instructions Recorded Confirmed Type Atorvastatin [Lipitor] 40 mg PO HS@209903/23/21 01/10/23 History Dulaglutide [Trulicity] 3 mg SQ WE@0900 03/23/21 01/10/23 History Sevelamer [Renvela] 1,600 mg PO BID@0900,209904/29/22 01/10/23 History Zonisamide [Zonegran] 100 mg PO TID@0600,1500,2200 09/10/22 01/10/23 History levETIRAcetam [Keppra] 500 mg PO BID@0900,2000 09/10/22 01/10/23 History levETIRAcetam [Keppra] 500 mg PO MOWEFR@1500 09/10/22 01/10/23 History Divalproex Sodium [Depakote] 500 mg PO BID@0900,209909/12/22 01/10/23 History Divalproex Sodium [Depakote] 500 mg PO MOWEFR@1600 09/12/22 01/10/23 History Metoprolol Tartrate [Lopressor] 25 mg PO MOWEFR@2100 11/13/22 01/10/23 History Metoprolol Tartrate [Lopressor] 25 mg PO SUTUTHSA@0900,209911/21/22 01/10/23 History icosapent ethyL [Icosapent Ethyl] 1 gm PO BID@0900,2100 11/21/22 01/10/23 History Lacosamide [Vimpat] 150 mg PO MOWEFR@1600 #4 tab 11/22/22 01/10/23 Rx Famotidine [Pepcid] 20 mg PO DAILY@0600 12/12/22 01/10/23 History Lacosamide [Vimpat] 150 mg PO BID@0900,2100 12/12/22 01/10/23 History Ondansetron [Zofran] 4 mg PO Q8H PRN 12/12/22 01/10/23 History amLODIPine [Norvasc] 5 mg PO DAILY@0900 01/10/23 01/10/23 History Allergies Allergy/AdvReac Type Severity Reaction Status Date / Time Penicillins Allergy Itching Verified 01/10/23 13:00 Physical Exam Vitals: Vital Signs Temp Pulse Resp BP Pulse Ox 01/10/23 21:00 103 H 19 138/78 100 01/10/23 20:11 97 01/10/23 20:04 84 01/10/23 20:00 96 18 142/80 100 01/10/23 19:00 90 8 L 99/72 100 01/10/23 18:23 97.8 F 93 16 99/72 100 01/10/23 18:00 97 14 01/10/23 17:00 90 6 L 162/91 100 01/10/23 16:50 86 16 01/10/23 16:42 92 18 01/10/23 16:00 85 14 170/86 100 01/10/23 15:00 181/107 01/10/23 14:55 89 18 161/90 100 01/10/23 14:00 89 11 L 173/88 100 01/10/23 13:00 85 8 L 204/188 100 01/10/23 12:14 198/103 01/10/23 12:02 99 01/10/23 11:57 97.3 F L 82 16 99 Intake and Output 01/10/23 01/10/23 01/11/23 14:59 22:59 06:59 Other: Weight 72.575 kg GENERAL EXAM: Alert but nonverbal, 53-year-old female, comfortable in no apparent distress. HEAD: Normocephalic and atraumatic EYES: Normal reaction of pupils, equal size. NOSE: Clear with pink turbinates. THROAT: No erythema or exudates. NECK: No masses, no JVD. CHEST: No chest wall deformity. There is a left chest implanted device LUNGS: Equal air entry with left lower lobe inspiratory crackles. No wheezing, rhonchi. On 2 L/m nasal cannula. No conversational dyspnea or accessory muscle use.. CVS: S1 and S2 normal with no audible murmur, regular rhythm. No extra heart sounds ABDOMEN: No hepatosplenomegaly, active bowel sounds, no guarding or rigidity. SPINE: No scoliosis or deformity SKIN: No rashes CENTRAL NERVOUS SYSTEM: No focal deficits, tone is normal in all 4 extremities. No seizure activity noted. EXTREMITIES: There is no peripheral edema, clubbing, or cyanosis. Peripheral pulses are intact. There is a left arm AV fistula Results - Laboratory Findings CBC and BMP: 01/10/23 13:50 01/11/23 11:20 PT/INR, D-dimer PT 10.8 sec (9.0-12.0) 01/10/23 13:50 INR 1.0 (<1.2) 01/10/23 13:50 Abnormal lab findings: Abnormal Labs 01/10/23 01/10/23 01/10/23 13:50 13:50 13:50 RBC 3.29 L Hgb 10.9 L Hct 31.5 L APTT 19.8 L BUN 63 H Creatinine 9.60 H* Glucose 186 H POC Glucose (mg/dL) Urine Protein Urine Glucose (UA) Urine Blood Ur Leukocyte Esterase Urine WBC Urine Bacteria 01/10/23 01/10/23 14:15 15:50 RBC Hgb Hct APTT BUN Creatinine Glucose POC Glucose (mg/dL) 190 H Urine Protein 3+ H Urine Glucose (UA) 1+ H Urine Blood Trace H Ur Leukocyte Esterase Large H Urine WBC 7 H Urine Bacteria Few H - Diagnostic Findings Chest x-ray: image reviewed Assessment and Plan Assessment: Acute hypoxemic respiratory failure, currently on 2 L/m nasal cannula, possibly secondary to healthcare associated pneumonia. Chest x-ray shows a left-sided pleural effusion and suspected left lower lobe infiltrate. Altered mental status, currently under investigation. Brain CT without contrast, one day prior, shows age-related atrophic and chronic small vessel ischemia without any acute intracranial process. History of seizure disorder End-stage renal disease, reportedly receives hemodialysis Monday, Monday, Monday schedule. Diabetes mellitus type 2, [id number] Hyperlipidemia Essential hypertension History of CVA Hypothyroidism GERD without esophagitis Plan: Patient's medications, labs, chest x-ray reviewed Continue supplemental oxygen Continue empiric antibiotics, and infectious disease was added on Check procalcitonin level Continue bronchodilators Consult neurology to manage antiepileptics. Unsure if the patient can take oral medications at this point. Seizure precautions Hemodialysis per nephrology We will continue to follow I have personally seen and examined the patient, performed the documentation and the assessment and plan as written. Number of minutes spent on the visit:20 This is a joint evaluation was done along with the nurse practitioner. The patient was seen and evaluated. Obviously the patient is a very poor historian. She is going to undergo hemodialysis today. There may be potentially a left lower lobe pulmonary infiltrate/pneumonia and for that reason the patient was started on broad-spectrum antibiotics. No active signs of any respiratory distress at this point in time. No fever. Hemodynamically stable. We'll continue to follow. No other significant issues for now. The patient is currently on Levaquin. The patient is currently on 2 L of oxygen nasal cannula to pulse ox of 100%. This evaluation was on a more than 30 minutes. Time with Patient: Greater than 30
--- NOTE | 2023-01-11 08:44 | P.NPCON ---
History of Present Illness - Reason for Consult end stage renal disease - History of Present Illness Reason for consultation: End-stage renal disease History of present illness: Patient is a 53-year-old female seen in renal consultation for end-stage renal disease. Patient was seen and examined in the emergency room. She is maintained on hemodialysis Monday schedule. Last hemodialysis treatment was on Monday. Patient went to hemodialysis on Monday and was subsequent he sent to the ER due to concern for stroke. Brain CT showed no acute changes and she was subsequently discharged. She returned to the ER yesterday after being sent from the residential facility. She was sent due to worsening mental status and nausea. Patient does have history of seizures but there is no reports of seizure activity this week. Patient's currently resting in bed. Patient has a history of aphasia and is not a reliable historian. She is currently being treated for pneumonia. Hemodynamically stable. Afebrile. Vital signs are stable. General: No acute distress. HEENT: Head exam is unremarkable. LUNGS: No audible rhonchi or wheezes. HEART: Rate and Rhythm are regular. ABDOMEN: Nontender. EXTREMITITES: No edema. Past Medical History Past Medical History: Chest Pain / Angina, CVA/TIA, Diabetes Mellitus, GERD/Reflux, Hyperlipidemia, Hypertension, Memory Impairment, Osteoarthritis (OA), Renal Disease, Seizure Disorder, Thyroid Disorder Additional Past Medical History / Comment(s): Last seizure approximately one mo nth ago. Spouse states she used to have seizures 4X per week until she had vagal nerve stimulator placed, now has seizures approximately once a week to once a month. Dialysis MOWEFR. Neuropathy, left drop foot, only able to walk short distances, otherwise uses wheelchair. 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 Never diagnosed with Sleep Apnea but spouse states she does stop breathing through the night and he has to shake her to start breathing again. Varicose veins. History of Any Multi-Drug Resistant Organisms: None Reported Past Surgical History: Section, Tonsillectomy, Uterine Ablation Additional Past Surgical History / Comment(s): Left arm fistula, loop recorder, vagus nerve stimulator. Past Anesthesia/Blood Transfusion Reactions: Motion Sickness Additional Past Anesthesia/Blood Transfusion Reaction / Comment(s): Family hx unknown, pt adopted. Past Psychological History: Bipolar Smoking Status: Former smoker Past Alcohol Use History: None Reported Past Drug Use History: None Reported - Past Family History Father Family Medical History: Unable to Obtain Additional Family Medical History / Comment(s): Pt adopted. Medications and Allergies Home Medications Medication Instructions Recorded Confirmed Type Atorvastatin [Lipitor] 40 mg PO HS@209903/23/21 01/10/23 History Dulaglutide [Trulicity] 3 mg SQ WE@89903/23/21 01/10/23 History Sevelamer [Renvela] 1,600 mg PO BID@09,209904/29/22 01/10/23 History Zonisamide [Zonegran] 100 mg PO TID@0600,1500,219909/10/22 01/10/23 History levETIRAcetam [Keppra] 500 mg PO BID@0900,199909/10/22 01/10/23 History levETIRAcetam [Keppra] 500 mg PO MOWEFR@1500 09/10/22 01/10/23 History Divalproex Sodium [Depakote] 500 mg PO BID@0900,209909/12/22 01/10/23 History Divalproex Sodium [Depakote] 500 mg PO MOWEFR@1600 09/12/22 01/10/23 History Metoprolol Tartrate [Lopressor] 25 mg PO MOWEFR@209911/13/22 01/10/23 History Metoprolol Tartrate [Lopressor] 25 mg PO SUTUTHSA@0900,209911/21/22 01/10/23 History icosapent ethyL [Icosapent Ethyl] 1 gm PO BID@0900,209911/21/22 01/10/23 History Lacosamide [Vimpat] 150 mg PO MOWEFR@1600 #4 tab 11/22/22 01/10/23 Rx Famotidine [Pepcid] 20 mg PO DAILY@59912/12/22 01/10/23 History Lacosamide [Vimpat] 150 mg PO BID@0900,209912/12/22 01/10/23 History Ondansetron [Zofran] 4 mg PO Q8H PRN 12/12/22 01/10/23 History amLODIPine [Norvasc] 5 mg PO DAILY@0901/10/23 01/10/23 History Allergies Allergy/AdvReac Type Severity Reaction Status Date / Time Penicillins Allergy Itching Verified 01/10/23 13:00 Physical Exam Vitals: Vital Signs Temp Pulse Resp BP Pulse Ox 01/11/23 07:39 92 01/11/23 07:28 88 95 01/10/23 21:00 103 H 19 138/78 100 01/10/23 20:11 97 01/10/23 20:04 84 01/10/23 20:00 96 18 142/80 100 01/10/23 19:00 90 8 L 99/72 100 01/10/23 18:23 97.8 F 93 16 99/72 100 01/10/23 18:00 97 14 01/10/23 17:00 90 6 L 162/91 100 01/10/23 16:50 86 16 01/10/23 16:42 92 18 01/10/23 16:00 85 14 170/86 100 01/10/23 15:00 181/107 01/10/23 14:55 89 18 161/90 100 01/10/23 14:00 89 11 L 173/88 100 01/10/23 13:00 85 8 L 204/188 100 01/10/23 12:14 198/103 01/10/23 12:02 99 01/10/23 11:57 97.3 F L 82 16 99 Results - Lab Results Most recent lab results Calcium 9.2 mg/dL (8.4-10.2) 01/10/23 13:50 Magnesium 2.3 mg/dL (1.6-2.3) 01/10/23 13:50 01/10/23 13:50 01/10/23 13:50 Assessment and Plan Plan: Assessment: 1. End-stage renal disease maintained on hemodialysis on Monday schedule. 2. Altered mental status. Questionable seizure. Urine drug screen negative. Neurology consulted. 3. History of seizures. 4. Diabetes mellitus. 5. Chronic kidney disease mineral bone disease. 6. Hypertension with chronic kidney disease. Stable. 7. Acute hypoxic respiratory failure secondary to pneumonia. On antibiotics. Plan: Hemodialysis today. Check phosphorus level. Thank you for the consultation. I will continue to follow the patient with you during her hospital stay.
--- NOTE | 2023-01-11 09:20 | XR ---
EXAMINATION TYPE: XR chest 2V DATE OF EXAM: 01/11/2023 COMPARISON: 01/10/2023 TECHNIQUE: PA and lateral views submitted. HISTORY: Cough FINDINGS: The lungs are clear and there is no pneumothorax, pleural effusion, or focal pneumonia. Heart size normal and no overt failure. Osseous structures demonstrate hypertrophic and degenerative changes of the spine. There is a stimulator device overlying the left hemithorax. Subcutaneous loop recorder may also be present and partially included in the [id number]. Linear changes left lung base most typi juanjose of atelectasis diffuse osteopenia. IMPRESSION: 1. No acute process. Linear subsegmental changes are more typical of atelectasis than pneumonia.
[2023-01-11 11:00] LABS: Glucose,Whole Blood 119 mg/dL (70-110)
[2023-01-11] MEDS: ZONISAMIDE 100 MG CAP PO SCH ×3 (11:34→20:40)
[2023-01-11] MEDS ORDERED: ONDANSETRON 4 MG TAB PO PRN (11:38)
--- NOTE | 2023-01-11 12:16 | P.CNNES ---
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 Patient is known to our neurology service. Per the ED and seems that the patient has been progressively having worsening of the mentation with nausea and isn't facility. No falls. Per EMR is seems the patient is on Keppra 500 mg 1 tablet twice a day with additional 500 postdialysis, Vimpat 150 mg 3 times a day with additional dose postdialysis, Depakote 500 mg 1 tablet twice a day sonogram 100 mg a tablet 3 times a day Of note as stated earlier patient is known to our neurology service and she has history of medically refractory epilepsy. She was last seen by our team on the 07/29/[address] Sosa. Per his notes patient is on zonogran 100 mg 1 tablet once a day but if she has any recurrent seizures to go to twice a day, continue Keppra 500 mg twice a day with additional 500 postdialysis, Depakote 500 mg 1 tablet 3 times a day and she was off of Vimpat. Please refer to his note for further details. I recommend the patient follow up with epileptologist and consider starting Epidiolex since has multiple hospital admission to our facility and other hospital facility. Patient had multiple EEGs in our facility. Some other workup during his hospital visit consisted of: Ammonia is 11. Her creatinine is 9.6 with a BUN 63. His sugar has been in the range of 100 and tends to 190s. Calcium magnesium sodium liver function is within normal limits. Urine drug seeing is not detected. Review of Systems Review of systems Limited but the prone positive and negative as per HPI. Past Medical History Past Medical History: Chest Pain / Angina, CVA/TIA, Diabetes Mellitus, GERD/Reflux, Hyperlipidemia, Hypertension, Memory Impairment, Osteoarthritis (OA), Renal Disease, Seizure Disorder, Thyroid Disorder Additional Past Medical History / Comment(s): Last seizure approximately one month ago. Spouse states she used to have seizures 4X per week until she had vagal nerve stimulator placed, now has seizures approximately once a week to once a month. Dialysis MOWEFR. Neuropathy, left drop foot, only able to walk short distances, otherwise uses wheelchair. 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 Never diagnosed with Sleep Apnea but spouse states she does stop breathing through the night and he has to shake her to start breathing again. Varicose veins. History of Any Multi-Drug Resistant Organisms: None Reported Past Surgical History: Section, Tonsillectomy, Uterine Ablation Additional Past Surgical History / Comment(s): Left arm fistula, loop recorder, vagus nerve stimulator. Past Anesthesia/Blood Transfusion Reactions: Motion Sickness Additional Past Anesthesia/Blood Transfusion Reaction / Comment(s): Family hx unknown, pt adopted. Past Psychological History: Bipolar Smoking Status: Former smoker Past Alcohol Use History: None Reported Past Drug Use History: None Reported - Past Family History Father Family Medical History: Unable to Obtain Additional Family Medical History / Comment(s): Pt adopted. Medications and Allergies Home Medications Medication Instructions Recorded Confirmed Type Atorvastatin [Lipitor] 40 mg PO HS@209903/23/21 01/10/23 History Dulaglutide [Trulicity] 3 mg SQ WE@0900 03/23/21 01/10/23 History Sevelamer [Renvela] 1,600 mg PO BID@0900,209904/29/22 01/10/23 History Zonisamide [Zonegran] 100 mg PO TID@0600,1500,2200 09/10/22 01/10/23 History levETIRAcetam [Keppra] 500 mg PO BID@0900,199909/10/22 01/10/23 History levETIRAcetam [Keppra] 500 mg PO MOWEFR@1500 09/10/22 01/10/23 History Divalproex Sodium [Depakote] 500 mg PO BID@0900,209909/12/22 01/10/23 History Divalproex Sodium [Depakote] 500 mg PO MOWEFR@1600 09/12/22 01/10/23 History Metoprolol Tartrate [Lopressor] 25 mg PO MOWEFR@2100 11/13/22 01/10/23 History Metoprolol Tartrate [Lopressor] 25 mg PO SUTUTHSA@0900,2100 23 06/20/23 History icosapent ethyL [Icosapent Ethyl] 1 gm PO BID@0900,209911/21/22 01/10/23 History Lacosamide [Vimpat] 150 mg PO MOWEFR@1600 #4 tab 11/22/22 01/10/23 Rx Famotidine [Pepcid] 20 mg PO DAILY@0612/12/22 01/10/23 History Lacosamide [Vimpat] 150 mg PO BID@0900,209912/12/22 01/10/23 History Ondansetron [Zofran] 4 mg PO Q8H PRN 12/12/22 01/10/23 History amLODIPine [Norvasc] 5 mg PO DAILY@0901/10/23 01/10/23 History Allergies Allergy/AdvReac Type Severity Reaction Status Date / Time Penicillins Allergy Itching Verified 01/10/23 13:00 Physical Examination - Vital Signs Vital Signs: Vital Signs Temp Pulse Resp BP Pulse Ox 01/11/23 11:46 90 01/11/23 11:38 94 01/11/23 10:53 89 18 131/80 100 01/11/23 07:39 92 01/11/23 07:28 88 95 01/10/23 21:00 103 H 19 138/78 100 01/10/23 20:11 97 01/10/23 20:04 84 01/10/23 20:00 96 18 142/80 100 01/10/23 19:00 90 8 L 99/72 100 01/10/23 18:23 97.8 F 93 16 99/72 100 01/10/23 18:00 97 14 01/10/23 17:00 90 6 L 162/91 100 01/10/23 16:50 86 16 01/10/23 16:42 92 18 01/10/23 16:00 85 14 170/86 100 01/10/23 15:00 181/107 01/10/23 14:55 89 18 161/90 100 01/10/23 14:00 89 11 L 173/88 100 01/10/23 13:00 85 8 L 204/188 100 01/10/23 12:14 198/103 01/10/23 12:02 99 01/10/23 11:57 97.3 F L 82 16 99 General: Is laying in bed and does not appear in acute distress. Neuro: Limited because of her condition/cooperation. Is awake but verbalizing. She is following very minimal commands (attempting to stick tongue out, wiggling toes) Pupils are round, equal and reactive to light. Pupils are 3mm bilaterally. EOM is tracking throughout the room. Is mute Strength is unable to assess because of cooperation. Results - Laboratory Findings CBC and BMP: 01/10/23 13:50 01/11/23 11:20 Abnormal Lab Findings: Abnormal Labs 01/10/23 01/10/23 01/10/23 13:50 13:50 13:50 RBC 3.29 L Hgb 10.9 L Hct 31.5 L APTT 19.8 L BUN 63 H Creatinine 9.60 H* Glucose 186 H POC Glucose (mg/dL) Urine Protein Urine Glucose (UA) Urine Blood Ur Leukocyte Esterase Urine WBC Urine Bacteria 01/10/23 01/10/23 01/11/23 14:15 15:50 10:59 RBC Hgb Hct APTT BUN Creatinine Glucose POC Glucose (mg/dL) 190 H 119 H Urine Protein 3+ H Urine Glucose (UA) 1+ H Urine Blood Trace H Ur Leukocyte Esterase Large H Urine WBC 7 H Urine Bacteria Few H Assessment and Plan Assessment: This is a 53-year-old woman with history of 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 Altered mental status and suspect had breakthrough seizure. 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 She has multiple admissions to our facility as well as outside facility. She had a prolonged EEG in our facility and was suggestive of primary generalized epilepsy Left ICA stenosis of 75% stenosis on CTA but discrepancy on carotid duplex and not significant History of stroke with residual left hemiparesis Diabetes mellitus End-stage renal disease on dialysis Hypertension Plan: I restarted her home antiepileptic of Keppra 500 mg 1 tablet twice a day with additional 500 postdialysis, Vimpat 150 mg 3 times a day with additional dose postdialysis, Depakote 500 mg 1 tablet twice a day sonogram 100 mg a tablet 3 times a day. I ordered Keppra, Depakote and vimpat level to make sure not subtherapeutic. Ordered routine EEG. She had multiple EEG in the past and prolonged EEG in our facility and was felt primary generalized epilepsy. On seizure precaution and pads. Placed on Ativan 1mg every 4 hours PRN for seizures. If patient does not show any improvement will get a CT head. She had multiple CT's in our facility in the past. Recommend the patient to follow-up with epileptologist as outpatient and recommend EMU. She had multiple admission to our facility and outside facility. She is on 4 antieplileptic drugs and continues to have seizures. Consider start on Epidiolex as outpatient since had medical refractory epilepsy and that was recommended on prior visit. Will defer the rest of medical management to her primary and other specialist. Will attempt to contact her to find out more about her neurological management as outpatient. Thank you for the consultation. UPDATE: In the late afternoon, per nurse she was following commands and conversing but is slow. Time with Patient: Greater than 30
[2023-01-11 13:11] LABS: African American GFR (CKD) 4 (>60 ml/min/1.73 sqM); Anion Gap 15 mmol/L; Blood Urea Nitrogen 71 mg/dL (7-17); Calcium 9.1 mg/dL (8.4-10.2); Carbon Dioxide 24 mmol/L (22-30); Chloride 100 mmol/L (98-107); Glucose 112 mg/dL (74-99); Non-African American GFR(CKD) 3 (>60 ml/min/1.73 sqM); Potassium 4.4 mmol/L (3.5-5.1); Sodium 139 mmol/L (137-145)
[2023-01-11] MEDS: LACOSAMIDE 150 MG TABLET PO SCH ×3 (14:06→20:39)
[2023-01-11] MEDS: levETIRAcetam 500 MG TAB PO SCH ×3 (14:06→20:39)
[2023-01-11] MEDS: DIVALPROEX 500 MG TABLET.DR PO SCH ×3 (14:06→20:39)
--- NOTE | 2023-01-11 14:22 | PN ---
PROGRESS NOTE DATE OF SERVICE: 01/11/2023 SUBJECTIVE: This is a 53-year-old woman who was admitted with change in mental status and possible left lower pneumonia, is being closely monitored. The patient also had inadequate hemodialysis also. Multiple consultants are following the patient closely. The patient continues to be drowsy even though slightly better than yesterday. The patient is still being monitored in the ER. Multiple consultants are following the patient closely. PAST MEDICAL HISTORY: Reviewed. REVIEW OF SYSTEMS: Could not be obtained. CURRENT MEDICATIONS: Reviewed and include Levaquin, doses and rest of medications noted. OBJECTIVE: VITAL SIGNS: Pulse is 89, blood pressure 131/80, respirations 18. CHEST: Diffuse scattered rhonchi and crackles. ABDOMEN: Soft, nontender. LEGS: No edema, no swelling. NERVOUS SYSTEM: Diffusely weak. LABORATORY DATA: Reviewed. ASSESSMENT: 1. Change in mental status acute metabolic encephalopathy possibly from inadequate hemodialysis during the last time. 2. Possible left lower lobe pneumonia, rule out sepsis. 3. Relative hypotension and dehydration present on admission. 4. History of diabetes type 2. 5. Hypertension. 6. Hyperlipidemia. 7. History of seizure disorder. 8. Multiple medical issues. RECOMMENDATIONS: Recommended to continue current management, continue symptomatic treatment, continue hemodialysis. Continue empiric antibiotics. Follow the cultures. Closely follow with multiple consultants. Ensure oxygenation. Bronchodilators, will resume the home medications once they are confirmed. Prognosis extremely guarded. Further recommendations to follow, see orders for details. MMODL / IJN: [id number] /
[2023-01-11] MEDS: INSULIN ASPART (NovoLOG) 100 UNIT/ML VIAL SQ SCH ×3 (15:13→20:29)
[2023-01-11 16:17] LABS: Glucose,Whole Blood 110 mg/dL (70-110)
[2023-01-11 19:55] LABS: Glucose,Whole Blood 77 mg/dL (70-110)
[2023-01-11] MEDS: NON FORMULARY DRUG (Icosapent Ethyl [Icosapent Ethyl] 1 GM Capsule) PO SCH (20:28)
--- NOTE | 2023-01-11 20:29 | P.CONS ---
History of Present Illness - Reason for Consult Consult date: 01/11/23 Sepsis Requesting physician: Mehrdad Mohan - Chief Complaint Mental status changes x one day - History of Present Illness Patient is a 53-year-old female with a past medical history significant for end-stage renal disease on hemodialysis through the left upper arm fistula and residential resident patient has been sent to the ER yesterday afternoon for evaluation of mental status changes pending the patient was noticed to have worsening mental status and also have some nausea but no clear history of any vomiting abdominal pain or any diarrhea patient on presentation to the hospital was afebrile and no fever has been recorded subsequently patient did have a normal white count elevated BUN/creatinine keeping in mind her chronic kidney disease liver exams are normal urine positive urine drug screen was negative patient did have a chest x-ray left lower lobe infiltrate with small effusion with concern for her pneumonia patient was started on Levaquin because of her history of penicillin allergy infectious disease was consulted for further management of antibiotic therapy patient at the time of my evaluation elevated good historian so most information has been extension of from review of the chart Review of Systems Positive points has been mentioned in HPI complete review could not be obtained because of his underlying mental status Past Medical History Past Medical History: Chest Pain / Angina, CVA/TIA, Diabetes Mellitus, GERD/Reflux, Hyperlipidemia, Hypertension, Memory Impairment, Osteoarthritis (OA), Renal Disease, Seizure Disorder, Thyroid Disorder Additional Past Medical History / Comment(s): Last seizure approximately one month ago. Spouse states she used to have seizures 4X per week until she had vagal nerve stimulator placed, now has seizures approximately once a week to once a month. Dialysis MOWEFR. Neuropathy, left drop foot, only able to walk short distances, otherwise uses wheelchair. 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 Never diagnosed with Sleep Apnea but spouse states she does stop breathing through the night and he has to shake her to start breathing again. Varicose veins. History of Any Multi-Drug Resistant Organisms: None Reported Past Surgical History: Section, Tonsillectomy, Uterine Ablation Additional Past Surgical History / Comment(s): Left arm fistula, loop recorder, vagus nerve stimulator. Past Anesthesia/Blood Transfusion Reactions: Motion Sickness Additional Past Anesthesia/Blood Transfusion Reaction / Comm: Family hx unknown, pt adopted. Past Psychological History: Bipolar Smoking Status: Former smoker Past Alcohol Use History: None Reported Past Drug Use History: None Reported - Past Family History Father Family Medical History: Unable to Obtain Additional Family Medical History / Comment(s): Pt adopted. Medications and Allergies Home Medications Medication Instructions Recorded Confirmed Type Atorvastatin [Lipitor] 40 mg PO HS@209903/23/21 01/10/23 History Dulaglutide [Trulicity] 3 mg SQ WE@0903/23/21 01/10/23 History Sevelamer [Renvela] 1,600 mg PO BID@0900,209904/29/22 01/10/23 History Zonisamide [Zonegran] 100 mg PO TID@0600,1500,219909/10/22 01/10/23 History levETIRAcetam [Keppra] 500 mg PO BID@0900,199909/10/22 01/10/23 History levETIRAcetam [Keppra] 500 mg PO MOWEFR@1500 09/10/22 01/10/23 History Divalproex Sodium [Depakote] 500 mg PO BID@0900,209909/12/22 01/10/23 History Divalproex Sodium [Depakote] 500 mg PO MOWEFR@1600 09/12/22 01/10/23 History Metoprolol Tartrate [Lopressor] 25 mg PO MOWEFR@209911/13/22 01/10/23 History Metoprolol Tartrate [Lopressor] 25 mg PO SUTUTHSA@0900,209911/21/22 01/10/23 History icosapent ethyL [Icosapent Ethyl] 1 gm PO BID@0900,209911/21/22 01/10/23 History Lacosamide [Vimpat] 150 mg PO MOWEFR@1600 #4 tab 11/22/22 01/10/23 Rx Famotidine [Pepcid] 20 mg PO DAILY@59912/12/22 01/10/23 History Lacosamide [Vimpat] 150 mg PO BID@0900,209912/12/22 01/10/23 History Ondansetron [Zofran] 4 mg PO Q8H PRN 12/12/22 01/10/23 History amLODIPine [Norvasc] 5 mg PO DAILY@0900 01/10/23 01/10/23 History Allergies Allergy/AdvReac Type Severity Reaction Status Date / Time Penicillins Allergy Itching Verified 01/10/23 13:00 Physical Exam Vitals: Vital Signs Temp Pulse Resp BP Pulse Ox 01/11/23 11:46 90 01/11/23 11:38 94 01/11/23 10:53 89 18 131/80 100 01/11/23 07:39 92 01/11/23 07:28 88 95 01/10/23 21:00 103 H 19 138/78 100 01/10/23 20:11 97 01/10/23 20:04 84 01/10/23 20:00 96 18 142/80 100 01/10/23 19:00 90 8 L 99/72 100 01/10/23 18:23 97.8 F 93 16 99/72 100 01/10/23 18:00 97 14 01/10/23 17:00 90 6 L 162/91 100 01/10/23 16:50 86 16 01/10/23 16:42 92 18 01/10/23 16:00 85 14 170/86 100 01/10/23 15:00 181/107 01/10/23 14:55 89 18 161/90 100 01/10/23 14:00 89 11 L 173/88 100 01/10/23 13:00 85 8 L 204/188 100 01/10/23 12:14 198/103 GENERAL DESCRIPTION: Middle-aged female lying in bed, no distress. No tachypnea or accessory muscle of respiration use. HEENT: Shows Pallor , no scleral icterus. Oral mucous membrane is dry. No pharyngeal erythema or thrush NECK: Trachea central, no thyromegaly. LUNGS: Unlabored breathing. Decreased breath sound at bases HEART: S1, S2, regular rate and rhythm. No loud murmur ABDOMEN: Soft, no tenderness , EXTREMITIES: No edema of feet. SKIN: No rash, no masses palpable. NEUROLOGICAL: The patient is lethargic orientation could not be determined Results CBC & Chem 7: 01/17/23 05:57 01/17/23 05:57 Labs: Abnormal Lab Results - Last 24 Hours (Table) 01/10/23 01/10/23 01/10/23 Range/Units 13:50 13:50 13:50 RBC 3.29 L (3.80-5.40) m/uL Hgb 10.9 L (11.4-16.0) gm/dL Hct 31.5 L (34.0-46.0) % APTT 19.8 L (22.0-30.0) sec BUN 63 H (7-17) mg/dL Creatinine 9.60 H* (0.52-1.04) mg/dL Glucose 186 H (74-99) mg/dL POC Glucose (mg/dL) (70-110) mg/dL Urine Protein (Negative) Urine Glucose (UA) (Negative) Urine Blood (Negative) Ur Leukocyte Esterase (Negative) Urine WBC (0-5) /hpf Urine Bacteria (None) /hpf 01/10/23 01/10/23 01/11/23 Range/Units 14:15 15:50 10:59 RBC (3.80-5.40) m/uL Hgb (11.4-16.0) gm/dL Hct (34.0-46.0) % APTT (22.0-30.0) sec BUN (7-17) mg/dL Creatinine (0.52-1.04) mg/dL Glucose (74-99) mg/dL POC Glucose (mg/dL) 190 H 119 H (70-110) mg/dL Urine Protein 3+ H (Negative) Urine Glucose (UA) 1+ H (Negative) Urine Blood Trace H (Negative) Ur Leukocyte Esterase Large H (Negative) Urine WBC 7 H (0-5) /hpf Urine Bacteria Few H (None) /hpf Assessment and Plan (1) Pneumonia Status: Acute Code(s): J18.9 - PNEUMONIA, UNSPECIFIED ORGANISM SNOMED Code(s): 437106232 Plan: 1patient presented to hospital with mental status changes decreased level of responsiveness with evidence of left lower lobe infiltrate concerning for possible pneumonia, patient however did not have any fever or elevated white count, underlying pneumonia less likely but not excluded, patient also have a positive UA however this patient do have a history of end-stage renal disease on dialysis with no clinical significance 2-penicillin allergy of limit the number of antibiotics safe to use 3-we will try to obtain a sputum check a CRP and a procalcitonin level 4-May continue Levaquin for now We will follow on clinical condition and cultures to further adjust medication if needed Thank you for this consultation we will follow the patient along with you Time with Patient: Greater than 30
[2023-01-11] MEDS: ATORVASTATIN 40 MG TAB PO SCH (20:39)
[2023-01-11] MEDS: METOPROLOL TARTRATE 25 MG TAB PO SCH (20:39)
[2023-01-11] MEDS: SEVELAMER 800 MG TAB PO SCH (20:39)
[2023-01-11 20:41] LABS: Basophils % (A) 0 %; Eosinophils # (A) 0.1 k/uL (0-0.7); Eosinophils % (A) 1 %; HCT 32.2 % (34.0-46.0); Lymphocytes # (A) 2.5 k/uL (1.0-4.8); Lymphocytes % (A) 33 %; MCH 32.4 pg (25.0-35.0); MCHC 34.1 g/dL (31.0-37.0); Mean Platelet Volume 9.3; Monocytes # (A) 0.7 k/uL (0-1.0); Monocytes % (A) 9 %; Neutrophils # (A) 4.1 k/uL (1.3-7.7); Neutrophils % (A) 55 %; Platelet Count 122 k/uL (150-450); RBC 3.39 m/uL (3.80-5.40); WBC 7.4 k/uL (3.8-10.6)
[2023-01-11] MEDS: LEVOFLOXACIN 500MG-D5W PMX 500 MG in DEXTROSE/WATER 1 100ML.BAG IVPB SCH (21:31)
[2023-01-12 00:15] LABS: Glucose,Whole Blood 130 mg/dL (70-110)
--- NOTE | 2023-01-12 00:52 | EEG ---
ELECTROENCEPHALOGRAM REPORT CLINICAL HISTORY: This is a 53-year-old woman with history of epilepsy, who is on multiple medications, who presented because of altered mental status. The video EEG is obtained to evaluate for seizure epileptiform activity. RELEVANT MEDICATIONS: 1. Depakote. 2. Keppra. 3. Zonegran. 4. Vimpat. EEG TYPE: A routine 21-channel EEG is performed with video using the 10/20 electrode placement system. DESCRIPTION: Wakefulness is only obtained. The background consists of [id number] voltage of 8- 9 hertz activity. At times, predominantly most of the background consists of low-to- moderate voltage of theta intermixed with delta activity that is nonrhythmic. There is no focal slowing. Interictal and ictal, there are numerous sharp/spike slow waves over the left central parietal region slowing, so there were numerous sharp/spike slow wave over the left central parietal region. No seizure noted. ACTIVATION PROCEDURE: Photic stimulation and hyperventilation are not performed. CLINICAL INTERPRETATION: This is an abnormal routine EEG. The background slowing is suggestive of mild to moderate encephalopathy. The epileptiform discharges are over the left central parietal region, which increases risk for seizures. Otherwise, no seizures noted during this study. Clinical correlation is recommended. MMODL / IJN: [id number] /
[2023-01-12 06:02] LABS: Glucose,Whole Blood 81 mg/dL (70-110)
[2023-01-12] MEDS: INSULIN ASPART (NovoLOG) 100 UNIT/ML VIAL SQ SCH ×4 (06:04→20:08)
[2023-01-12] MEDS: ZONISAMIDE 100 MG CAP PO SCH ×3 (06:06→20:28)
[2023-01-12] MEDS: NON FORMULARY DRUG (Icosapent Ethyl [Icosapent Ethyl] 1 GM Capsule) PO SCH ×2 (07:35→20:39)
[2023-01-12] MEDS: DIVALPROEX 500 MG TABLET.DR PO SCH ×2 (07:45→20:08)
[2023-01-12] MEDS: METOPROLOL TARTRATE 25 MG TAB PO SCH ×2 (07:45→20:08)
[2023-01-12] MEDS: LACOSAMIDE 150 MG TABLET PO SCH ×2 (07:45→20:08)
[2023-01-12] MEDS: SEVELAMER 800 MG TAB PO SCH ×2 (07:46→20:08)
[2023-01-12] MEDS: amLODIPine 5 MG TAB PO SCH (07:46)
[2023-01-12] MEDS: levETIRAcetam 500 MG TAB PO SCH ×2 (07:46→20:08)
[2023-01-12 07:53] LABS: Levetiracetam (Keppra) 54.6 ug/mL (3.0-60.0)
[2023-01-12] MEDS: IPRATROPIUM-ALBUTEROL 3 ML NEB INHALATION SCH ×3 (08:52→21:44)
--- NOTE | 2023-01-12 10:31 | P.PN ---
Subjective Patient is seen in follow-up for end-stage renal disease. She is maintained on hemodialysis on Monday schedule. No problems with dialysis yesterday. Hemodynamically stable. Awake and alert. Mentation better. Vital signs are stable. General: No acute distress. HEENT: Head exam is unremarkable. LUNGS: No audible rhonchi or wheezes. HEART: Rate and Rhythm are regular. ABDOMEN: Nontender. EXTREMITITES: No edema. Objective - Vital Signs Vital signs: Vital Signs Temp 97.5 F L 01/12/23 07:59 Pulse 88 01/12/23 09:11 Resp 16 01/12/23 07:59 BP 143/80 01/12/23 07:59 Pulse Ox 100 01/12/23 07:59 FiO2 Intake & Output 01/11/23 01/12/23 01/12/23 18:59 06:59 18:59 Intake Total 450 Output Total 2900 Balance -2450 Weight 72.575 kg Intake: Oral 50 Hemodialysis 400 Output: Hemodialysis 2900 Other: Voiding Method Diaper Diaper # Voids 0 # Bowel Movements 1 - Labs CBC & Chem 7: 01/11/23 20:11 01/11/23 11:20 Labs: Abnormal Lab Results - Last 24 Hours (Table) 01/11/23 01/11/23 01/11/23 Range/Units 10:59 11:20 11:20 RBC (3.80-5.40) m/uL Hgb (11.4-16.0) gm/dL Hct (34.0-46.0) % Plt Count (150-450) k/uL BUN 71 H (7-17) mg/dL Creatinine 11.19 H* (0.52-1.04) mg/dL Glucose 112 H (74-99) mg/dL POC Glucose (mg/dL) 119 H (70-110) mg/dL Phosphorus (2.5-4.5) mg/dL Procalcitonin 1.44 H (0.02-0.09) ng/mL 01/11/23 01/11/23 01/12/23 Range/Units 11:20 20:11 00:13 RBC 3.39 L (3.80-5.40) m/uL Hgb 11.0 L (11.4-16.0) gm/dL Hct 32.2 L (34.0-46.0) % Plt Count 122 L (150-450) k/uL BUN (7-17) mg/dL Creatinine (0.52-1.04) mg/dL Glucose (74-99) mg/dL POC Glucose (mg/dL) 130 H (70-110) mg/dL Phosphorus 7.6 H (2.5-4.5) mg/dL Procalcitonin (0.02-0.09) ng/mL Microbiology - Last 24 Hours (Table) 01/10/23 17:30 Blood Culture - Preliminary Blood Assessment and Plan Plan: Assessment: 1. End-stage renal disease maintained on hemodialysis on Monday schedule. 2. Altered mental status. Questionable seizure. Urine drug screen negative. Neurology following. 3. History of seizures. 4. Diabetes mellitus. 5. Chronic kidney disease mineral bone disease. Phosphorous 7.6 this admission. On Renvela. 6. Hypertension with chronic kidney disease. Stable. 7. Acute hypoxic respiratory failure secondary to pneumonia. On antibiotics. Plan: Hemodialysis tomorrow.
[2023-01-12 11:43] LABS: Glucose,Whole Blood 136 mg/dL (70-110)
[2023-01-12] MEDS ORDERED: CEFEPIME 2 GM in SODIUM CHLORIDE 0.9% 100 ML IVPB STA (13:17)
--- NOTE | 2023-01-12 13:21 | P.PN ---
Subjective Progress Note Date: 01/12/23 Principal diagnosis: Pneumonia Patient is a 53-year-old female with a past medical history significant for end-stage renal disease on hemodialysis through the left upper arm fistula and care home resident patient has been sent to the ER for evaluation of mental status changes, patient just x-ray with left lower lobe infiltrate concerning for pneumonia. On today's evaluation that is 01/12/2023, the patient is afebrile, the patient is more awake and alert appearing the chair she is breathing comfortably on nasal cannula oxygen but not specifically denies any chest pain occasional cough no vomiting or diarrhea has been reported patient is not a good historian Objective - Vital Signs Vital signs: Vital Signs Temp 97.5 F L 01/12/23 07:59 Pulse 88 01/12/23 09:11 Resp 16 01/12/23 07:59 BP 143/80 01/12/23 07:59 Pulse Ox 100 01/12/23 07:59 FiO2 Intake & Output 01/11/23 01/12/23 01/12/23 18:59 06:59 18:59 Intake Total 450 Output Total 2900 Balance -2450 Weight 72.575 kg Intake: Oral 50 Hemodialysis 400 Output: Hemodialysis 2900 Other: Voiding Method Diaper Diaper # Voids 0 # Bowel Movements 1 - Exam GENERAL DESCRIPTION: Middle-age female up in the chair in no distress RESPIRATORY SYSTEM: Unlabored breathing , decreased breath sounds at bases HEART: S1 S2 regular rate and rhythm , ABDOMEN: Soft , no tenderness EXTREMITIES: No edema feet - Labs CBC & Chem 7: 01/11/23 20:11 01/11/23 11:20 Labs: Abnormal Lab Results - Last 24 Hours (Table) 01/11/23 01/11/23 01/11/23 Range/Units 10:59 11:20 11:20 RBC (3.80-5.40) m/uL Hgb (11.4-16.0) gm/dL Hct (34.0-46.0) % Plt Count (150-450) k/uL BUN 71 H (7-17) mg/dL Creatinine 11.19 H* (0.52-1.04) mg/dL Glucose 112 H (74-99) mg/dL POC Glucose (mg/dL) 119 H (70-110) mg/dL Phosphorus (2.5-4.5) mg/dL Procalcitonin 1.44 H (0.02-0.09) ng/mL 01/11/23 01/11/23 01/12/23 Range/Units 11:20 20:11 00:13 RBC 3.39 L (3.80-5.40) m/uL Hgb 11.0 L (11.4-16.0) gm/dL Hct 32.2 L (34.0-46.0) % Plt Count 122 L (150-450) k/uL BUN (7-17) mg/dL Creatinine (0.52-1.04) mg/dL Glucose (74-99) mg/dL POC Glucose (mg/dL) 130 H (70-110) mg/dL Phosphorus 7.6 H (2.5-4.5) mg/dL Procalcitonin (0.02-0.09) ng/mL Microbiology - Last 24 Hours (Table) 01/10/23 17:30 Blood Culture - Preliminary Blood Assessment and Plan (1) Pneumonia Current Visit: Yes Status: Acute Code(s): J18.9 - PNEUMONIA, UNSPECIFIED ORGANISM SNOMED Code(s): 451987561 Plan: 1patient presented to hospital with mental status changes decreased level of responsiveness with evidence of left lower lobe infiltrate concerning for possib le pneumonia, patient however did not have any fever or elevated white count, underlying pneumonia less likely but not excluded, patient also have a positive UA however this patient do have a history of end-stage renal disease on dialysis with no clinical significance 2-penicillin allergy of limit the number of antibiotics safe to use 3-patient did have elevated procalcitonin level of 1.44 4We will start the patient cefepime and monitor clinical course closely Time with Patient: Less than 30
--- NOTE | 2023-01-12 13:56 | P.CN ---
Psychiatric Consult - . Consult date: 01/12/23 Consult:: 01/12/23 13:55 REASON FOR CONSULT: CAPACITY FOR MEDICAL DECISION MAKING IDENTIFYING DATA: This patient is a , unemployed, on disability, 53-year-old female with significant history of end-stage renal disease who presents to the hospital 01/10/2023 for altered mental status. HISTORY OF PRESENT ILLNESS: The patient presented to the hospital there is 01/10/2023 for altered mental status and worsening nausea. The patient does have significant history of end-stage renal disease and receives dialysis. Psychiatry has been consulted for evaluation of the patient's capacity for medical decision-making. Reportedly, the patient's has been opting to discontinue dialysis treatment for this patient. He is reportedly identified as a medical surrogate decision maker however there is no guardianship paperwork presented to Michele Ladd at the time of writing this note. Upon evaluation by this provider, patient is denying any suicidal or homicidal ideation, intention, and/or plan. She is alert and oriented to person and time however not to the specific date or location. Despite this, the patient does acknowledge that she does receive dialysis for end-stage renal disease. The pat ient does express explicitly to this provider that she wishes to continue treatment. She also reports that if she is not to continue dialysis, she risks further deterioration and . She does not endorse any particular symptoms of psychosis. She does not provide any significant history of spencer or hypomania. She denies any significant history of substance abuse. PAST PSYCHIATRIC HISTORY: As per chart review, there appears to be a previous diagnosis of bipolar in the past. PAST MEDICAL HISTORY: Past Medical History: Chest Pain / Angina, CVA/TIA, Diabetes Mellitus, GERD/Reflux, Hyperlipidemia, Hypertension, Memory Impairment, Osteoarthritis (OA), Renal Disease, Seizure Disorder, Thyroid Disorder Additional Past Medical History / Comment(s): Last seizure approximately one month ago. Spouse states she used to have seizures 4X per week until she had vagal nerve stimulator placed, now has seizures approximately once a week to once a month. Dialysis MOWEFR. Neuropathy, left drop foot, only able to walk short distances, otherwise uses wheelchair. 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 Never diagnosed with Sleep Apnea but spouse states she does stop breathing through the night and he has to shake her to start breathing again. Varicose veins. History of Any Multi-Drug Resistant Organisms: None Reported Past Surgical History: Section, Tonsillectomy, Uterine Ablation Additional Past Surgical History / Comment(s): Left arm fistula, loop recorder, vagus nerve stimulator. Past Anesthesia/Blood Transfusion Reactions: Motion Sickness Additional Past Anesthesia/Blood Transfusion Reaction / Comm: Family hx unknown, pt adopted. Past Psychological History: Bipolar Smoking Status: Former smoker Past Alcohol Use History: None Reported Past Drug Use History: None Reported ALLERGIES: Penicillin CHEMICAL DEPENDENCY HISTORY: Patient denies any significant substance use history. FAMILY PSYCHIATRIC/SUBSTANCE USE HISTORY: Unable to assess at this time. SOCIAL HISTORY: The patient is currently . She is on disability. MENTAL STATUS EXAM: General Appearance: Patient appears to be stated age is alert, pleasant, and cooperative. Patient appears to have fair hygiene and grooming wearing hospital gown with fair eye contact. Behavior: Patient is calmly lying in bed without any agitated behavior. Speech: Patient's speech is fluent and nonpressured. Nonspontaneous, low in volume, some word finding difficulty. Mood/Affect: Patient reports their mood is "doing okay", affect is congruent Suicidality/Homicidality: Patient reports no suicidal or homicidal ideation. Perceptions: Patient denies any visual hallucinations and denies any auditory hallucinations Though content/process: There is no evidence of any delusional thought content and thought process is linear and goal-directed. Memory and concentration: She appears to be alert and oriented to person and time but not to place. Concentration appears to be grossly intact for the purposes of this interview. Judgment and insight: Fair IMPRESSIONS: 1. End-stage renal disease maintained on hemodialysis on Monday schedule. 2. Altered mental status. Questionable seizure. Urine drug screen negative. - Multifactorial, Suspect secondary to ESRD, pneumonia 3. History of seizures. 4. Diabetes mellitus. 5. Chronic kidney disease mineral bone disease. 6. Hypertension with chronic kidney disease. 7. Acute hypoxic respiratory failure secondary to pneumonia. PLAN: -Patient DOES have decision making capacity at this time and is able to reason through and communicate/appreciate the risks, benefits and alternatives to treatment. Although the patient is alert and oriented to person and year only, she is able to identify the risks of not continuing with dialysis and is expressing a desire to continue treatment with dialysis. Patient has a right to autonomy. She is not impaired at this time by any mental illness such as overt spencer, psychosis, or dementia. This is subject to change should patient's mental status further deteriorate. -At this time patient DOES NOT meet criteria for inpatient psychiatric admission. -Continue your medical management. -Delirium precautions recommended with patient including - avoiding use of narcotics and FIXTURE MAKER sedatives, limit anticholinergic medications when possible, frequent re-orientation, minimize use of restraints, open window shades during the day and close them at night -Would recommend the following medication changes/additions: No medication recommendations. -Psychiatry will sign off at this point, please contact with any questions. 01/12/23 13:56
--- NOTE | 2023-01-12 15:20 | P.PN ---
Subjective Progress Note Date: 01/12/23 Patient seen at bedside in no seizures overnight or today per the nurse. I was notified by esterase nurse and teres nurses doing better. He was notified that she is responding following commands but slow to respond. Objective - Vital Signs Vital signs: Vital Signs Temp 97.5 F L 01/12/23 07:59 Pulse 83 01/12/23 13:37 Resp 18 01/12/23 11:25 BP 133/73 01/12/23 11:25 Pulse Ox 97 01/12/23 11:25 FiO2 Intake & Output 01/11/23 01/12/23 01/12/23 18:59 06:59 18:59 Intake Total 450 Output Total 2900 Balance -2450 Weight 72.575 kg Intake: Oral 50 Hemodialysis 400 Output: Hemodialysis 2900 Other: Voiding Method Diaper Diaper # Voids 0 # Bowel Movements 1 - Exam Neuro exam is limited Patient is awake alert oriented to self she stated she is in the hospital options and she correctly stated its 2022. She is slow responded question. She is following simple commands. Language is limited. The pupils are round equal and reactive to light. Pupils are round 3 mm. Extraocular movement she's tracking throughout and no nystagmus appreciable. She has right lower facial weakness this mild. No dysarthria. She sewn thumbs up on bilateral upper extremities. Some other workup during his hospital visit consisted of: Ammonia is 11. Her creatinine is 9.6 with a BUN 63. His sugar has been in the range of 100 and tends to 190s. Calcium magnesium sodium liver function is within normal limits. Urine drug seeing is not detected. Routine EEG is abnormal. The back slowing suggestive of mild to moderate encephalopathy. Epileptiform discharges over the left central parietal region increases risk for seizure. Otherwise no seizure noted during the study. Local correlation recommended - Labs CBC & Chem 7: 01/11/23 20:11 01/11/23 11:20 Labs: Abnormal Lab Results - Last 24 Hours (Table) 01/11/23 01/11/23 01/12/23 Range/Units 11:20 20:11 00:13 RBC 3.39 L (3.80-5.40) m/uL Hgb 11.0 L (11.4-16.0) gm/dL Hct 32.2 L (34.0-46.0) % Plt Count 122 L (150-450) k/uL POC Glucose (mg/dL) 130 H (70-110) mg/dL Procalcitonin 1.44 H (0.02-0.09) ng/mL 01/12/23 Range/Units 11:41 RBC (3.80-5.40) m/uL Hgb (11.4-16.0) gm/dL Hct (34.0-46.0) % Plt Count (150-450) k/uL POC Glucose (mg/dL) 136 H (70-110) mg/dL Procalcitonin (0.02-0.09) ng/mL Microbiology - Last 24 Hours (Table) 01/10/23 15:50 Urine Culture - Preliminary Urine,Voided Group D Enterococcus 01/10/23 17:30 Blood Culture - Preliminary Blood Assessment and Plan Assessment: This is a 53-year-old woman with history of 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 Altered mental status and suspect had breakthrough seizure---improving. No seizure on EEG but has discharges over left parietal/central region. 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 She has multiple admissions to our facility as well as outside facility. She had a prolonged EEG in our facility and was suggestive of primary generalized epilepsy Left ICA stenosis of 75% stenosis on CTA but discrepancy on carotid duplex and not significant History of stroke with residual left hemiparesis Diabetes mellitus End-stage renal disease on dialysis Hypertension Plan: Continue home antiepileptic of Keppra 500 mg 1 tablet twice a day with additi onal 500 postdialysis, Vimpat 150 mg 3 times a day with additional dose postdialysis, Depakote 500 mg 1 tablet twice a day sonogram 100 mg a tablet 3 times a day. Levels: Keppra 54.6 (normal 3-60), Depakote: 39.7 (normal 50-120). Unsure if Depakote is subtherapeutic since low dose vs missed medicaiton. Pennding vimpat level to make sure not subtherapeutic. Routine EEG showed left central/parietal epileptiform discharges which can increase risk for seizure. No seizure noted during this study.. She had multiple EEG in the past and prolonged EEG in our facility and was felt primary generalized epilepsy. On seizure precaution and pads. On Ativan 1mg every 4 hours PRN for seizures. She had multiple CT's in our facility in the past and no need for another one unless continues to have confusions. Recommend the patient to follow-up with epileptologist as outpatient and recommend EMU. She had multiple admission to our facility and outside facility. She is on 4 antieplileptic drugs and continues to have seizures. Consider start on Epidiolex as outpatient since had medical refractory epilepsy and that was recommended on prior visit. Will defer the rest of medical management to her primary and other specialist. The plan is discussed with her nurse. Time with Patient: Less than 30
--- NOTE | 2023-01-12 15:37 | P.PN ---
Subjective Progress Note Date: 01/12/23 I am seeing this patient in new consultation today 01/11/2023 in the emergency room possible left lower lobe pneumonia. Patient is a 53-year-old female with past medical history significant for multiple comorbidities including end-stage renal disease, seizure disorder, CVA, diabetes mellitus, GERD, hyperlipidemia, hypertension, hypothyroidism. Patient was sent in from [facility] on the [facility] yesterday afternoon for concerns about altered mental status. There was also concern for nausea and retching. She has had multiple prior emergency room visits and hospital admissions in the past for similar symptoms. She actually had an ER visit on January 09 for altered mental status. She was discharged back to [facility], and returned yesterday afternoon. She also has history of ventilator dependence for status epilepticus. No reports of seizure activity on this admission. Patient apparently continues to have seizures about once per week to once per month. Patient is currently sitting up in bed, alert but nonverbal, in no acute distress. She does not follow commands. She is on 2 L/m nasal cannula and oxygenating at 100%. Chest x-ray on arrival shows small left pleural effusion and possible left lower lobe infiltrate. Patient is currently on Levaquin for empiric antibiotics. She is afebrile. CBC on arrival was unremarkable. BMP shows sodium 138, potassium 4.4, chloride 99, serum bicarb 24, BUN 63, creatinine 9.6, glucose 186. Patient reportedly does receive hemodialysis on Monday, Monday, Monday schedule. Troponins negative 1. Ammonia level was low. Urinalysis was not particularly concerning for UTI. Brain CT without contrast, one day prior, shows age-related atrophic and chronic small vessel ischemia without any acute intracranial process. Patient will be admitted to the cardiac stepdown unit once bed available. On today's evaluation of 01/12/2023, the patient is stable. No worsening shortness of breath. In fact I do not see any signs of any respiratory distress this patient. No aspiration. No cough or sputum production. No fever or chills. No seizure activity overnight. The patient is following simple commands only. Neurology is on the case regarding her underlying mental status. The patient remains on Levaquin. Patient is also on cefepime. During culture was positive for enterococcus group D. The blood culture showing no growth. Objective - Vital Signs Vital signs: Vital Signs Temp 97.5 F L 01/12/23 07:59 Pulse 88 01/12/23 09:11 Resp 16 01/12/23 07:59 BP 143/80 01/12/23 07:59 Pulse Ox 100 01/12/23 07:59 FiO2 Intake & Output 01/11/23 01/12/23 01/12/23 18:59 06:59 18:59 Intake Total 450 Output Total 2900 Balance -2450 Weight 72.575 kg Intake: Oral 50 Hemodialysis 400 Output: Hemodialysis 2900 Other: Voiding Method Diaper Diaper # Voids 0 # Bowel Movements 1 - Exam GENERAL EXAM: Alert but nonverbal, 53-year-old female, comfortable in no apparent distress. HEAD: Normocephalic and atraumatic EYES: Normal reaction of pupils, equal size. NOSE: Clear with pink turbinates. THROAT: No erythema or exudates. NECK: No masses, no JVD. CHEST: No chest wall deformity. There is a left chest implanted device LUNGS: Equal air entry with left lower lobe inspiratory crackles. No wheezing, rhonchi. On 2 L/m nasal cannula. No conversational dyspnea or accessory muscle use.. CVS: S1 and S2 normal with no audible murmur, regular rhythm. No extra heart sounds ABDOMEN: No hepatosplenomegaly, active bowel sounds, no guarding or rigidity. SPINE: No scoliosis or deformity SKIN: No rashes CENTRAL NERVOUS SYSTEM: No focal deficits, tone is normal in all 4 extremities. No seizure activity noted. EXTREMITIES: There is no peripheral edema, clubbing, or cyanosis. Peripheral pulses are intact. There is a left arm AV fistula - Labs CBC & Chem 7: 01/11/23 20:11 01/11/23 11:20 Labs: Abnormal Lab Results - Last 24 Hours (Table) 01/11/23 01/11/23 01/11/23 Range/Units 10:59 11:20 11:20 RBC (3.80-5.40) m/uL Hgb (11.4-16.0) gm/dL Hct (34.0-46.0) % Plt Count (150-450) k/uL BUN 71 H (7-17) mg/dL Creatinine 11.19 H* (0.52-1.04) mg/dL Glucose 112 H (74-99) mg/dL POC Glucose (mg/dL) 119 H (70-110) mg/dL Phosphorus (2.5-4.5) mg/dL Procalcitonin 1.44 H (0.02-0.09) ng/mL 01/11/23 01/11/23 01/12/23 Range/Units 11:20 20:11 00:13 RBC 3.39 L (3.80-5.40) m/uL Hgb 11.0 L (11.4-16.0) gm/dL Hct 32.2 L (34.0-46.0) % Plt Count 122 L (150-450) k/uL BUN (7-17) mg/dL Creatinine (0.52-1.04) mg/dL Glucose (74-99) mg/dL POC Glucose (mg/dL) 130 H (70-110) mg/dL Phosphorus 7.6 H (2.5-4.5) mg/dL Procalcitonin (0.02-0.09) ng/mL Microbiology - Last 24 Hours (Table) 01/10/23 17:30 Blood Culture - Preliminary Blood Assessment and Plan Assessment: Acute hypoxemic respiratory failure, currently on 2 L/m nasal cannula, possibly secondary to healthcare associated pneumonia. Chest x-ray shows a left-sided pleural effusion and suspected left lower lobe infiltrate. The patient remained on 2 L of oxygen by nasal cannula. No signs of any respiratory distress and the patient's pulse ox is 97% liters of oxygen by nasal cannula. Altered mental status, currently under investigation. Brain CT without contrast, one day prior, shows age-related atrophic and chronic small vessel ischemia without any acute intracranial process. Because of the case History of seizure disorder End-stage renal disease, reportedly receives hemodialysis Monday, Monday, Monday schedule. Undergoing scheduled hemodialysis Diabetes mellitus type 2, [id number] Hyperlipidemia Essential hypertension History of CVA Hypothyroidism GERD without esophagitis Questionable enterococcal UTI group, blood cultures are negative.D Plan: Overall respiratory status is stable Check procalcitonin level was slightly elevated at 1.44 and this could be related to renal failure Continue bronchodilators Consult neurology to manage antiepileptics. Unsure if the patient can take oral medications at this point. Seizure precautions Hemodialysis per nephrology We will continue to follow
[2023-01-12 17:07] LABS: Glucose,Whole Blood 145 mg/dL (70-110)
[2023-01-12 17:07] LABS: Glucose,Whole Blood 170 mg/dL (70-110)
[2023-01-12 17:07] LABS: Glucose,Whole Blood 416 mg/dL (70-110)
[2023-01-12] MEDS ORDERED: LEVOFLOXACIN 250MG-D5W PMX 250 MG in DEXTROSE/WATER 1 50ML.BAG IVPB SCH (18:00)
[2023-01-12 19:58] LABS: Glucose,Whole Blood 241 mg/dL (70-110)
[2023-01-12] MEDS: ATORVASTATIN 40 MG TAB PO SCH (20:08)
--- NOTE | 2023-01-12 23:22 | PN ---
PROGRESS NOTE DATE OF SERVICE: 01/12/2023 SUBJECTIVE: This is a 53-year-old woman, who was admitted with possible pneumonia and sepsis and change in mental status. Apparently, the and [facility] the [place] have been discussing the guardianship issues. Multiple consultants are following the patient closely. Urine culture showed group D Enterococcus. OBJECTIVE: VITAL SIGNS: Pulse is 83, blood pressure 130/73, respirations 18. CHEST: A few scattered rhonchi. ABDOMEN: Soft. NERVOUS SYSTEM: Confused. Diffusely weak. LABORATORY DATA: Reviewed. ASSESSMENT: 1. Change in mental status, possible acute metabolic encephalopathy possibly secondary from missed hemodialysis during dialysis and as an outpatient. 2. Possible left lower lobe pneumonia with sepsis. 3. Urinary tract infection with group D Enterococcus. 4. Relative hypotension and dehydration, present on admission. 5. Diabetes mellitus, type 2. 6. Hypertension. 7. Hyperlipidemia. 8. Multiple medical issues. RECOMMENDATIONS: Recommend to continue current management, continue symptomatic treatment including antibiotics. Follow the cultures. Closely follow with Infectious Disease, multiple consultants. PT, OT evaluation, and possible ECF return once the patient is stabilized. MMODL / IJN: [id number] /
[2023-01-13 06:14] LABS: Glucose,Whole Blood 104 mg/dL (70-110)
[2023-01-13] MEDS: ZONISAMIDE 100 MG CAP PO SCH ×3 (06:14→20:47)
[2023-01-13] MEDS: INSULIN ASPART (NovoLOG) 100 UNIT/ML VIAL SQ SCH ×4 (06:14→20:39)
[2023-01-13] MEDS: NON FORMULARY DRUG (Icosapent Ethyl [Icosapent Ethyl] 1 GM Capsule) PO SCH ×2 (08:18→20:39)
[2023-01-13] MEDS: CEFEPIME 1 GM in SODIUM CHLORIDE 0.9% 50 ML IVPB SCH (08:23)
[2023-01-13] MEDS: SEVELAMER 800 MG TAB PO SCH ×2 (08:23→20:47)
[2023-01-13] MEDS: DIVALPROEX 500 MG TABLET.DR PO SCH ×3 (08:23→20:46)
[2023-01-13] MEDS: LACOSAMIDE 150 MG TABLET PO SCH ×3 (08:23→20:47)
[2023-01-13] MEDS: levETIRAcetam 500 MG TAB PO SCH ×3 (08:24→20:46)
[2023-01-13] MEDS: amLODIPine 5 MG TAB PO SCH (08:24)
[2023-01-13] MEDS: IPRATROPIUM-ALBUTEROL 3 ML NEB INHALATION SCH ×3 (08:55→21:23)
--- NOTE | 2023-01-13 10:31 | P.PN ---
Subjective This is a pleasant 52 years old male who presents with altered mental status secondary to metabolic encephalopathy possible breakthrough seizure, she has history of refractory seizure, she's been evaluated by neurologist and currently she is continued on her home dose of 4 seizure medication including Depakote, Vimpat, Keppra, zonisamide, neurologist recommended the patient follow up outpatient. Patient also suspected to have community acquired left lower lobe pneumonia and currently covered with cefepime. Also she is on Levaquin added by internal medical service on a prior days, when going through this continue Levaquin as it lowers seizure thresholds and patient is with no fever or leukocytosis. Urine cultures, group D enterococcus Patient herself is drowsy this morning, she knows she is in [place], she answers questions without difficulty and she follows simple commands, she's been evaluated by psychiatrist and found to have Asked to make decision. 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 Patient is in the process of obtaining public guardian, Follow-up with court hearing for possible public guardian. church worker on the case Objective - Vital Signs Vital signs: Vital Signs Temp 97.4 F L 01/13/23 08:00 Pulse 88 01/13/23 09:05 Resp 16 01/13/23 08:00 BP 167/79 01/13/23 08:00 Pulse Ox 97 01/13/23 08:56 FiO2 Intake & Output 01/12/23 01/13/23 01/13/23 18:59 06:59 18:59 Other: Voiding Method Diaper Diaper Diaper # Voids 1 # Bowel Movements 1 - Exam -GENERAL: The patient is awake but drowsy, not in any acute distress. Well deve loped, well nourished. HEENT: Pupils are round and equally reacting to light. EOMI. No scleral icterus. No conjunctival pallor. Normocephalic, atraumatic. No pharyngeal erythema. No thyromegaly. CARDIOVASCULAR: S1 and S2 present. No murmurs, rubs, or gallops. PULMONARY: Chest is clear to auscultation, no wheezing or crackles. ABDOMEN: Soft, nontender, nondistended, normoactive bowel sounds. No palpable organomegaly. MUSCULOSKELETAL: No joint swelling or deformity. EXTREMITIES: No cyanosis, clubbing, or pedal edema. NEUROLOGICAL: Gross neurological examination did not reveal any focal deficits. SKIN: No rashes. no petechiae. - Labs CBC & Chem 7: 01/11/23 20:11 01/11/23 11:20 Labs: Abnormal Lab Results - Last 24 Hours (Table) 01/12/23 01/12/23 01/12/23 Range/Units 11:41 17:01 17:04 POC Glucose (mg/dL) 136 H 416 H 145 H (70-110) mg/dL 01/12/23 01/12/23 Range/Units 17:05 19:57 POC Glucose (mg/dL) 170 H 241 H (70-110) mg/dL Microbiology - Last 24 Hours (Table) 01/10/23 17:30 Blood Culture - Preliminary Blood 01/10/23 18:15 Blood Culture - Preliminary Blood 01/10/23 15:50 Urine Culture - Preliminary Urine,Voided Group D Enterococcus Assessment and Plan Assessment: Left lower lobe pneumonia Altered mental status secondary to metabolic encephalopathy, possible breakthrough seizure Refractory epilepsy, possible breakthrough seizure history of CVA and left sonia-variances End-stage renal disease on hemodialysis possible UTI with a group B enterococci Plan: Continue with cefepime DC Levaquin Infectious disease and pulmonary team on the case Continue with same seizure medication, Vimpat, Keppra, Depakote and zonisamide , neurologist on the case Labs and medication were reviewed.. Continue same treatment. Continue with symptomatic treatment. Resume home medication. Monitor labs and vitals. DVT and GI prophylaxis. Further recommendations as per clinical course of the patient DVT prophylaxis: Subcutaneous heparin GI Prophylaxis: Pepcid PT/OT: Recommended ECF Prognosis is guarded
[2023-01-13 10:33] LABS: African American GFR (CKD) 5 (>60 ml/min/1.73 sqM); Anion Gap 12 mmol/L; Blood Urea Nitrogen 43 mg/dL (7-17); Calcium 8.9 mg/dL (8.4-10.2); Carbon Dioxide 26 mmol/L (22-30); Chloride 98 mmol/L (98-107); Glucose 137 mg/dL (74-99); Non-African American GFR(CKD) 5 (>60 ml/min/1.73 sqM); Potassium 3.9 mmol/L (3.5-5.1); Sodium 136 mmol/L (137-145)
--- NOTE | 2023-01-13 10:52 | P.PN ---
Subjective Patient is seen in follow-up for end-stage renal disease. She is maintained on hemodialysis on Monday schedule. Scheduled for dialysis today. Awake and alert. Mentation at baseline. On antibiotics for pneumonia and UTI. Vital signs are stable. General: No acute distress. HEENT: Head exam is unremarkable. LUNGS: No audible rhonchi or wheezes. HEART: Rate and Rhythm are regular. ABDOMEN: Nontender. EXTREMITITES: No edema. Objective - Vital Signs Vital signs: Vital Signs Temp 97.4 F L 01/13/23 08:00 Pulse 88 01/13/23 09:05 Resp 16 01/13/23 08:00 BP 167/79 01/13/23 08:00 Pulse Ox 97 01/13/23 08:56 FiO2 Intake & Output 01/12/23 01/13/23 01/13/23 18:59 06:59 18:59 Other: Voiding Method Diaper Diaper Diaper # Voids 1 # Bowel Movements 1 - Labs CBC & Chem 7: 01/11/23 20:11 01/13/23 09:50 Labs: Abnormal Lab Results - Last 24 Hours (Table) 01/12/23 01/12/23 01/12/23 Range/Units 11:41 17:01 17:04 Sodium (137-145) mmol/L BUN (7-17) mg/dL Creatinine (0.52-1.04) mg/dL Glucose (74-99) mg/dL POC Glucose (mg/dL) 136 H 416 H 145 H (70-110) mg/dL 01/12/23 01/12/23 01/13/23 Range/Units 17:05 19:57 09:50 Sodium 136 L (137-145) mmol/L BUN 43 H (7-17) mg/dL Creatinine 8.53 H* (0.52-1.04) mg/dL Glucose 137 H (74-99) mg/dL POC Glucose (mg/dL) 170 H 241 H (70-110) mg/dL Microbiology - Last 24 Hours (Table) 01/10/23 17:30 Blood Culture - Preliminary Blood 01/10/23 18:15 Blood Culture - Preliminary Blood 01/10/23 15:50 Urine Culture - Preliminary Urine,Voided Group D Enterococcus Assessment and Plan Plan: Assessment: 1. End-stage renal disease maintained on hemodialysis on Monday schedule. 2. Altered mental status. Questionable seizure. Urine drug screen negative. Neurology following. Also concern for infection - Pneumonia/UTI. Urine culture positive for group D enterococcus. On antibiotics. ID following. 3. History of seizures. 4. Diabetes mellitus. 5. Chronic kidney disease mineral bone disease. Phosphorous 7.6 this admission. On Renvela. 6. Hypertension with chronic kidney disease. Stable. 7. Acute hypoxic respiratory failure secondary to pneumonia. On antibiotics. Plan: Hemodialysis today.
[2023-01-13] MEDS: LORazepam 2 MG/ML INJ IV PRN (11:12)
[2023-01-13 11:55] LABS: Glucose,Whole Blood 95 mg/dL (70-110)
--- NOTE | 2023-01-13 14:20 | P.PN ---
Subjective Progress Note Date: 01/13/23 I am seeing this patient in new consultation today 01/11/2023 in the emergency room possible left lower lobe pneumonia. Patient is a 53-year-old female with past medical history significant for multiple comorbidities including end-stage renal disease, seizure disorder, CVA, diabetes mellitus, GERD, hyperlipidemia, hypertension, hypothyroidism. Patient was sent in from [facility] on the [place] yesterday afternoon for concerns about altered mental status. There was also concern for nausea and retching. She has had multiple prior emergency room visits and hospital admissions in the past for similar symptoms. She actually had an ER visit on January 09 for altered mental status. She was discharged back to [facility], and returned yesterday afternoon. She also has history of ventilator dependence for status epilepticus. No reports of seizure activity on this admission. Patient apparently continues to have seizures about once per week to once per month. Patient is currently sitting up in bed, alert but nonverbal, in no acute distress. She does not follow commands. She is on 2 L/m nasal cannula and oxygenating at 100%. Chest x-ray on arrival shows small left pleural effusion and possible left lower lobe infiltrate. Patient is currently on Levaquin for empiric antibiotics. She is afebrile. CBC on arrival was unremarkable. BMP shows sodium 138, potassium 4.4, chloride 99, serum bicarb 24, BUN 63, creatinine 9.6, glucose 186. Patient reportedly does receive hemodialysis on Monday, Monday, Monday schedule. Troponins negative 1. Ammonia level was low. Urinalysis was not particularly concerning for UTI. Brain CT without contrast, one day prior, shows age-related atrophic and chronic small vessel ischemia without any acute intracranial process. Patient will be admitted to the cardiac stepdown unit once bed available. On today's evaluation of 01/12/2023, the patient is stable. No worsening shortness of breath. In fact I do not see any signs of any respiratory distress this patient. No aspiration. No cough or sputum production. No fever or chills. No seizure activity overnight. The patient is following simple commands only. Neurology is on the case regarding her underlying mental status. The patient remains on Levaquin. Patient is also on cefepime. During culture was positive for enterococcus group D. The blood culture showing no growth. On 01/10/2023, the neurologic status of the patient remains unchanged. She doesn't do a lot of talking and she doesn't communicate. She doesn't minimum And Neurology Is on the Case. Suspect a Component of Anoxic Encephalopathy. The Patient Is Also Being Treated for Seizures and She Remains on a Combination of Keppra and Vimpat. No Respiratory Distress. No Significant Cough or Sputum Production. Breathing Is Nonlabored and the Patient Is Undergoing Hemodialysis Today. She Is on IV Cefepime for Now. She Remains on Oxygen at 2 L/M Nasal Cannula with a Pulse Ox of 99%. The Blood Work from Today Shows a Sodium Level of 136, BUN Is 43 with a Creatinine of 8.5 and a Potassium Is at 3.9. Bicarb Level Is at 26. She Was Found to Have Enterococcus Group D in Her Urine. Objective - Vital Signs Vital signs: Vital Signs Temp 97.4 F L 01/13/23 08:00 Pulse 88 01/13/23 09:05 Resp 16 01/13/23 08:00 BP 167/79 01/13/23 08:00 Pulse Ox 97 01/13/23 08:56 FiO2 Intake & Output 01/12/23 01/13/23 01/13/23 18:59 06:59 18:59 Other: Voiding Method Diaper Diaper Diaper # Voids 1 # Bowel Movements 1 - Exam GENERAL EXAM: Alert but nonverbal, 53-year-old female, comfortable in no apparent distress. HEAD: Normocephalic and atraumatic EYES: Normal reaction of pupils, equal size. NOSE: Clear with pink turbinates. THROAT: No erythema or exudates. NECK: No masses, no JVD. CHEST: No chest wall deformity. There is a left chest implanted device LUNGS: Equal air entry with left lower lobe inspiratory crackles. No wheezing, rhonchi. On 2 L/m nasal cannula. No conversational dyspnea or accessory muscle use.. CVS: S1 and S2 normal with no audible murmur, regular rhythm. No extra heart sounds ABDOMEN: No hepatosplenomegaly, active bowel sounds, no guarding or rigidity. SPINE: No scoliosis or deformity SKIN: No rashes CENTRAL NERVOUS SYSTEM: No focal deficits, tone is normal in all 4 extremities. No seizure activity noted. EXTREMITIES: There is no peripheral edema, clubbing, or cyanosis. Peripheral pulses are intact. There is a left arm AV fistula - Labs CBC & Chem 7: 01/11/23 20:11 01/13/23 09:50 Labs: Abnormal Lab Results - Last 24 Hours (Table) 01/12/23 01/12/23 01/12/23 Range/Units 11:41 17:01 17:04 Sodium (137-145) mmol/L BUN (7-17) mg/dL Creatinine (0.52-1.04) mg/dL Glucose (74-99) mg/dL POC Glucose (mg/dL) 136 H 416 H 145 H (70-110) mg/dL 01/12/23 01/12/23 01/13/23 Range/Units 17:05 19:57 09:50 Sodium 136 L (137-145) mmol/L BUN 43 H (7-17) mg/dL Creatinine 8.53 H* (0.52-1.04) mg/dL Glucose 137 H (74-99) mg/dL POC Glucose (mg/dL) 170 H 241 H (70-110) mg/dL Microbiology - Last 24 Hours (Table) 01/10/23 17:30 Blood Culture - Preliminary Blood 01/10/23 18:15 Blood Culture - Preliminary Blood 01/10/23 15:50 Urine Culture - Preliminary Urine,Voided Group D Enterococcus Assessment and Plan Assessment: Acute hypoxemic respiratory failure, currently on 2 L/m nasal cannula, possibly secondary to healthcare associated pneumonia. Chest x-ray shows a left-sided pleural effusion and suspected left lower lobe infiltrate. The patient remained on 2 L of oxygen by nasal cannula. No signs of any respiratory distress and the patient's pulse ox is 97% liters of oxygen by nasal cannula. Altered mental status, currently under investigation. Brain CT without contrast, one day prior, shows age-related atrophic and chronic small vessel ischemia without any acute intracranial process. I do suspect a component of anoxic encephalopathy this patient. This could be related to his recurrent seizures. She remains on a combination of Vimpat and Keppra. History of seizure disorder, currently on accommodation of Vimpat and Keppra End-stage renal disease, reportedly receives hemodialysis Monday, Monday, Monday schedule. Undergoing scheduled hemodialysis by nephrology and the patient is undergoing hemodialysis today Diabetes mellitus type 2, [id number] Hyperlipidemia Essential hypertension History of CVA Hypothyroidism GERD without esophagitis Questionable enterococcal UTI group, blood cultures are negative.D Plan: Overall respiratory status is stable Check procalcitonin level was slightly elevated at 1.44 and this could be related to renal failure Continue bronchodilators Consult neurology to manage antiepileptics. Suspect anoxic encephalopathy Seizure precautions Hemodialysis per nephrology We will continue to follow
--- NOTE | 2023-01-13 14:32 | P.PN ---
Subjective Progress Note Date: 01/13/23 The patient is seen at bedside and per nurse she is slow in responding today compared to yesterday and having tremor. Upon seeing her she was getting dialysis and very slow responding. Objective - Vital Signs Vital signs: Vital Signs Temp 97.7 F 01/13/23 13:38 Pulse 87 01/13/23 13:38 Resp 16 01/13/23 13:38 BP 123/65 01/13/23 13:38 Pulse Ox 100 01/13/23 11:10 FiO2 Intake & Output 01/12/23 01/13/23 01/13/23 18:59 06:59 18:59 Intake Total 400 Output Total 1999 Balance -1600 Intake: Hemodialysis 400 Output: Hemodialysis 1999 Other: Voiding Method Diaper Diaper Diaper # Voids 1 # Bowel Movements 1 - Exam Neuro exam is limited Patient is awake but very slow responding. She was able to follow minimal simple commands (sticking tongue out and wiggling toes). Not verbalizing. Pupils are round, equal and reactive to light. She is tracking. Mild right lower facial weakness. Motor: Strength is limited in assessment but wiggled toes and showed brief thumbs up. Some other workup during his hospital visit consisted of: Ammonia is 11. Her creatinine is 9.6 with a BUN 63. His sugar has been in the range of 100 and tends to 190s. Calcium magnesium sodium liver function is within normal limits. Urine drug seeing is not detected. Routine EEG is abnormal. The back slowing suggestive of mild to moderate encephalopathy. Epileptiform discharges over the left central parietal region increases risk for seizure. Otherwise no seizure noted during the study. Local correlation recommended - Labs CBC & Chem 7: 01/11/23 20:11 01/13/23 09:50 Labs: Abnormal Lab Results - Last 24 Hours (Table) 01/12/23 01/12/23 01/12/23 Range/Units 17:01 17:04 17:05 Sodium (137-145) mmol/L BUN (7-17) mg/dL Creatinine (0.52-1.04) mg/dL Glucose (74-99) mg/dL POC Glucose (mg/dL) 416 H 145 H 170 H (70-110) mg/dL 01/12/23 01/13/23 Range/Units 19:57 09:50 Sodium 136 L (137-145) mmol/L BUN 43 H (7-17) mg/dL Creatinine 8.53 H* (0.52-1.04) mg/dL Glucose 137 H (74-99) mg/dL POC Glucose (mg/dL) 241 H (70-110) mg/dL Microbiology - Last 24 Hours (Table) 01/10/23 17:30 Blood Culture - Preliminary Blood 01/10/23 18:15 Blood Culture - Preliminary Blood 01/10/23 15:50 Urine Culture - Preliminary Urine,Voided Group D Enterococcus Assessment and Plan Assessment: This is a 53-year-old woman with history of 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 She has multiple admissions to our facility as well as outside facility. She had a prolonged EEG in our facility and was suggestive of primary generalized epilepsy Left ICA stenosis of 75% stenosis on CTA but discrepancy on carotid duplex and not significant History of stroke with residual left hemiparesis Diabetes mellitus End-stage renal disease on dialysis Hypertension Plan: Continue home antiepileptic of Keppra 500 mg 1 tablet twice a day with additional 500 postdialysis, Vimpat 150 mg 3 times a day with additional dose postdialysis, Depakote 500 mg 1 tablet twice a day sonogram 100 mg a tablet 3 times a day. Will given one time 1mg Ativan Levels: Keppra 54.6 (normal 3-60), Depakote: 39.7 (normal 50-120). Unsure if Depakote is subtherapeutic since low dose vs missed medicaiton. Pennding vimpat level to make sure not subtherapeutic. Routine EEG showed left central/parietal epileptiform discharges which can increase risk for seizure. No seizure noted during this study.. She had multiple EEG in the past and prolonged EEG in our facility and was felt primary generalized epilepsy. Ordered 2.5 hours EEG. On seizure precaution and pads. On Ativan 1mg every 4 hours PRN for seizures. She had multiple CT's in our facility in the past and no need for another one unless continues to have confusions. Recommend the patient to follow-up with epileptologist as outpatient and recommend EMU. She had multiple admission to our facility and outside facility. She is on 4 antieplileptic drugs and continues to have seizures. Consider start on Epidiolex as outpatient since had medical refractory epilepsy and that was recommended on prior visit. Will defer the rest of medical management to her primary and other specialist. The plan is discussed with her nurse. UPDATE: Per the nurse, after 1mg ativan, her nurse stated tremors has resolved. Time with Patient: Less than 30
[2023-01-13 16:48] LABS: Glucose,Whole Blood 99 mg/dL (70-110)
[2023-01-13 20:33] LABS: Glucose,Whole Blood 148 mg/dL (70-110)
[2023-01-13] MEDS: ATORVASTATIN 40 MG TAB PO SCH (20:46)
[2023-01-13] MEDS: HEPARIN SODIUM,PORCINE/PF 5,000 UNIT/0.5 ML SYRINGE SQ SCH (20:46)
[2023-01-13] MEDS: FAMOTIDINE 20 MG/2 ML VIAL IV SCH (20:46)
[2023-01-13] MEDS: METOPROLOL TARTRATE 25 MG TAB PO SCH (20:47)
--- NOTE | 2023-01-13 22:54 | P.PN ---
Subjective Progress Note Date: 01/13/23 Principal diagnosis: Pneumonia Patient is a 53-year-old female with a past medical history significant for end-stage renal disease on hemodialysis through the left upper arm fistula and [facility] patient has been sent to the ER for evaluation of mental status changes, patient just x-ray with left lower lobe infiltrate concerning for pneumonia. On today's evaluation that is 01/13/2023 patient remains to be afebrile, the patient is slightly lethargic today and elevated good historian and no vomiting or diarrhea has been reported patient is currently on a 2 L nasal cannula oxygen Objective - Vital Signs Vital signs: Vital Signs Temp 97.4 F L 01/13/23 08:00 Pulse 86 01/13/23 11:10 Resp 18 01/13/23 11:10 BP 130/72 01/13/23 11:10 Pulse Ox 100 01/13/23 11:10 FiO2 Intake & Output 01/12/23 01/13/23 01/13/23 18:59 06:59 18:59 Other: Voiding Method Diaper Diaper Diaper # Voids 1 # Bowel Movements 1 - Exam GENERAL DESCRIPTION: Middle-age female up in the chair in no distress RESPIRATORY SYSTEM: Unlabored breathing , decreased breath sounds at bases HEART: S1 S2 regular rate and rhythm , ABDOMEN: Soft , no tenderness EXTREMITIES: No edema feet - Labs CBC & Chem 7: 01/11/23 20:11 01/13/23 09:50 Labs: Abnormal Lab Results - Last 24 Hours (Table) 01/12/23 01/12/23 01/12/23 Range/Units 17:01 17:04 17:05 Sodium (137-145) mmol/L BUN (7-17) mg/dL Creatinine (0.52-1.04) mg/dL Glucose (74-99) mg/dL POC Glucose (mg/dL) 416 H 145 H 170 H (70-110) mg/dL 01/12/23 01/13/23 Range/Units 19:57 09:50 Sodium 136 L (137-145) mmol/L BUN 43 H (7-17) mg/dL Creatinine 8.53 H* (0.52-1.04) mg/dL Glucose 137 H (74-99) mg/dL POC Glucose (mg/dL) 241 H (70-110) mg/dL Microbiology - Last 24 Hours (Table) 01/10/23 17:30 Blood Culture - Preliminary Blood 01/10/23 18:15 Blood Culture - Preliminary Blood 01/10/23 15:50 Urine Culture - Preliminary Urine,Voided Group D Enterococcus Assessment and Plan (1) Pneumonia Current Visit: Yes Status: Acute Code(s): J18.9 - PNEUMONIA, UNSPECIFIED ORGANISM SNOMED Code(s): 945480007 Plan: 1patient presented to hospital with mental status changes decreased level of responsiveness with evidence of left lower lobe infiltrate concerning for possible pneumonia, patient however did not have any fever or elevated white count, underlying pneumonia less likely but not excluded, patient also have a po sitive UA however this patient do have a history of end-stage renal disease on dialysis with no clinical significance 2-penicillin allergy of limit the number of antibiotics safe to use 3-patient did have elevated procalcitonin level of 1.44 4Patient to continue with the cefepime try to obtain a sputum and monitor clinical course closely Time with Patient: Less than 30
[2023-01-14 06:19] LABS: Glucose,Whole Blood 103 mg/dL (70-110)
[2023-01-14] MEDS: INSULIN ASPART (NovoLOG) 100 UNIT/ML VIAL SQ SCH ×4 (06:20→22:24)
[2023-01-14] MEDS: ZONISAMIDE 100 MG CAP PO SCH ×3 (06:31→22:24)
[2023-01-14] MEDS: IPRATROPIUM-ALBUTEROL 3 ML NEB INHALATION SCH ×3 (08:28→21:07)
[2023-01-14 09:23] LABS: Glucose,Whole Blood 153 mg/dL (70-110)
[2023-01-14] MEDS: LORazepam 2 MG/ML INJ IV PRN ×2 (09:46→14:34)
[2023-01-14] MEDS ORDERED: VALPROATE SODIUM 1,000 MG in SODIUM CHLORIDE 0.9% 100 ML IVPB STA (10:06)
[2023-01-14] MEDS: FAMOTIDINE 20 MG/2 ML VIAL IV SCH ×2 (11:23→22:43)
[2023-01-14] MEDS: amLODIPine 5 MG TAB PO SCH (11:23)
[2023-01-14] MEDS: HEPARIN SODIUM,PORCINE/PF 5,000 UNIT/0.5 ML SYRINGE SQ SCH ×2 (11:27→22:44)
[2023-01-14] MEDS: SEVELAMER 800 MG TAB PO SCH ×2 (11:28→22:24)
[2023-01-14] MEDS: METOPROLOL TARTRATE 25 MG TAB PO SCH ×2 (11:28→22:25)
[2023-01-14] MEDS: LACOSAMIDE 150 MG TABLET PO SCH (11:28)
[2023-01-14] MEDS: levETIRAcetam 500 MG TAB PO SCH (11:28)
[2023-01-14 11:51] LABS: Glucose,Whole Blood 122 mg/dL (70-110)
[2023-01-14] MEDS: NON FORMULARY DRUG (Icosapent Ethyl [Icosapent Ethyl] 1 GM Capsule) PO SCH ×2 (12:10→22:25)
--- NOTE | 2023-01-14 13:08 | P.PN ---
Subjective Progress Note Date: 01/14/23 The patient seen at bedside and according to the patient's nurse she's more confused and having tremor over the right side. Objective - Vital Signs Vital signs: Vital Signs Temp 98.2 F 01/14/23 12:10 Pulse 87 01/14/23 12:10 Resp 14 01/14/23 12:10 BP 134/76 01/14/23 12:10 Pulse Ox 98 01/14/23 12:10 FiO2 Intake & Output 01/13/23 01/14/23 01/14/23 18:59 06:59 18:59 Intake Total 460 Output Total 1999 600 Balance -1540 -600 Weight 68.5 kg Intake: Oral 60 Hemodialysis 400 Output: Urine 600 Hemodialysis 2000 Other: Voiding Method Diaper Diaper # Bowel Movements 1 1 - Exam Neuro exam is limited Patient is has her awake but extremely slow following few simple commands (thumbs up and attempting to sick her tongue out). Pupils are round, equal and reactive to light. She is tracking. Mild right lower facial weakness. Motor: Strength is limited in limited because of her condition. Some other workup during his hospital visit consisted of: Ammonia is 11. Her creatinine is 9.6 with a BUN 63. His sugar has been in the range of 100 and tends to 190s. Calcium magnesium sodium liver function is w ithin normal limits. Urine drug seeing is not detected. Routine EEG is abnormal. The back slowing suggestive of mild to moderate encephalopathy. Epileptiform discharges over the left central parietal region increases risk for seizure. Otherwise no seizure noted during the study. 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 Altered mental status and suspect had breakthrough seizure-- No seizure on EEG but has discharges over left parietal/central region--has worsening mentation and tremor--concern for seizure Medical refractory epilepsy on VNS and it appears she has primary generalized epilepsy (on four antiepileptic drugs). She has multiple admissions to our facility as well as outside facility. She had a prolonged EEG in our facility and was suggestive of primary generalized epilepsy Left ICA stenosis of 75% stenosis on CTA but discrepancy on carotid duplex and not significant History of stroke with residual left hemiparesis Diabetes mellitus End-stage renal disease on dialysis Hypertension Plan: Continue home antiepileptic of Keppra 500 mg 1 tablet twice a day with additional 500 postdialysis, Vimpat 150 mg 3 times a day with additional dose postdialysis, Zonegran 100 mg a tablet 3 times a day. I will increase Depakote 500 mg 1 tablet twice a day to 1000mg bid since concerned for continued seizures with loading dose of Depakote 1000mg. Her Depakote level was subtherapeutic and unsure if due to low dose. Will also give her one time Ativan 1mg now. Pending 2.5 hour EEG could not be performed yesterday by [facility] since no availability and likely will be done this Monday. Levels: Keppra 54.6 (normal 3-60), Depakote: 39.7 (normal 50-120). Unsure if Depakote is subtherapeutic since low dose vs missed medicaiton. Pennding vimpat level to make sure not subtherapeutic. Routine EEG showed left central/parietal epileptiform discharges which can increase risk for seizure. No seizure noted during this study.. She had multiple EEG in the past and prolonged EEG in our facility and was felt primary generalized epilepsy. On seizure precaution and pads. On Ativan 1mg every 4 hours PRN for seizures. Will obtain CT head. Recommend the patient to follow-up with epileptologist as outpatient and recommend EMU. She had multiple admission to our facility and outside facility. She is on 4 antieplileptic drugs and continues to have seizures. Consider start on Epidiolex as outpatient since had medical refractory epilepsy and that was recommended on prior visits. Will defer the rest of medical management to her primary and other specialist. The plan is discussed with her nurse. UPDATE: Later in the afternoon, I re-examined the patient and she was still very drowsy but was able to show me thumbs up. She had tremor of the right upper extremity. I notified the nurse to give her 2mg Ativan once stat (patient received 1mg earlier today in the morning). I recommend the patient to be transferred for terminal block assembler EEG since for past two days she has been confused and I am concerned she is seizing. Updated her primary physician. Time with Patient: Less than 30
[2023-01-14] MEDS: DIVALPROEX 500 MG TABLET.DR PO SCH (13:23)
--- NOTE | 2023-01-14 13:26 | P.PN ---
Subjective Progress Note Date: 01/14/23 I am seeing this patient in new consultation today 01/11/2023 in the emergency room possible left lower lobe pneumonia. Patient is a 53-year-old female with past medical history significant for multiple comorbidities including end-stage renal disease, seizure disorder, CVA, diabetes mellitus, GERD, hyperlipidemia, hypertension, hypothyroidism. Patient was sent in from [facility] on the [place] yesterday afternoon for concerns about altered mental status. There was also concern for nausea and retching. She has had multiple prior emergency room visits and hospital admissions in the past for similar symptoms. She actually had an ER visit on January 09 for altered mental status. She was discharged back to [facility], and returned yesterday afternoon. She also has history of ventilator dependence for status epilepticus. No reports of seizure activity on this admission. Patient apparently continues to have seizures about once per week to once per month. Patient is currently sitting up in bed, alert but nonverbal, in no acute distress. She does not follow commands. She is on 2 L/m nasal cannula and oxygenating at 100%. Chest x-ray on arrival shows small left pleural effusion and possible left lower lobe infiltrate. Patient is currently on Levaquin for empiric antibiotics. She is afebrile. CBC on arrival was unremarkable. BMP shows sodium 138, potassium 4.4, chloride 99, serum bicarb 24, BUN 63, creatinine 9.6, glucose 186. Patient reportedly does receive hemodialysis on Monday, Monday, Monday schedule. Troponins negative 1. Ammonia level was low. Urinalysis was not particularly concerning for UTI. Brain CT without contrast, one day prior, shows age-related atrophic and chronic small vessel ischemia without any acute intracranial process. Patient will be admitted to the cardiac stepdown unit once bed available. On today's evaluation of 01/12/2023, the patient is stable. No worsening shortness of breath. In fact I do not see any signs of any respiratory distress this patient. No aspiration. No cough or sputum production. No fever or chills. No seizure activity overnight. The patient is following simple commands only. Neurology is on the case regarding her underlying mental status. The patient remains on Levaquin. Patient is also on cefepime. During culture was positive for enterococcus group D. The blood culture showing no growth. On 01/10/2023, the neurologic status of the patient remains unchanged. She doesn't do a lot of talking and she doesn't communicate. She doesn't minimum And Neurology Is on the Case. Suspect a Component of Anoxic Encephalopathy. The Patient Is Also Being Treated for Seizures and She Remains on a Combination of Keppra and Vimpat. No Respiratory Distress. No Significant Cough or Sputum Production. Breathing Is Nonlabored and the Patient Is Undergoing Hemodialysis Today. She Is on IV Cefepime for Now. She Remains on Oxygen at 2 L/M Nasal Cannula with a Pulse Ox of 99%. The Blood Work from Today Shows a Sodium Level of 136, BUN Is 43 with a Creatinine of 8.5 and a Potassium Is at 3.9. Bicarb Level Is at 26. She Was Found to Have Enterococcus Group D in Her Urine. On 01/14/2023, patient has no respiratory difficulties. The patient remains on antibiotics and she is currently on IV cefepime. No change in her neurologic functions for now. She is hemodynamically stable. She is on room air oxygen. Objective - Vital Signs Vital signs: Vital Signs Temp 98.4 F 01/14/23 09:10 Pulse 88 01/14/23 09:10 Resp 14 01/14/23 09:10 BP 159/68 01/14/23 09:10 Pulse Ox 100 01/14/23 09:10 FiO2 Intake & Output 01/13/23 01/14/23 01/14/23 18:59 06:59 18:59 Intake Total 460 Output Total 2000 600 Balance -1540 -600 Weight 68.5 kg Intake: Oral 60 Hemodialysis 400 Output: Urine 600 Hemodialysis 2000 Other: Voiding Method Diaper Diaper # Bowel Movements 1 1 - Exam GENERAL EXAM: Alert but nonverbal, 53-year-old female, comfortable in no apparent distress. The patient is currently on room air oxygen. HEAD: Normocephalic and atraumatic EYES: Normal reaction of pupils, equal size. NOSE: Clear with pink turbinates. THROAT: No erythema or exudates. NECK: No masses, no JVD. CHEST: No chest wall deformity. There is a left chest implanted device LUNGS: Equal air entry with left lower lobe inspiratory crackles. No wheezing, rhonchi. No conversational dyspnea or accessory muscle use.. CVS: S1 and S2 normal with no audible murmur, regular rhythm. No extra heart sounds ABDOMEN: No hepatosplenomegaly, active bowel sounds, no guarding or rigidity. SPINE: No scoliosis or deformity SKIN: No rashes CENTRAL NERVOUS SYSTEM: No focal deficits, tone is normal in all 4 extremities. No seizure activity noted. EXTREMITIES: There is no peripheral edema, clubbing, or cyanosis. Peripheral pulses are intact. There is a left arm AV fistula - Labs CBC & Chem 7: 01/11/23 20:11 01/13/23 09:50 Labs: Abnormal Lab Results - Last 24 Hours (Table) 01/13/23 01/14/23 Range/Units 20:31 09:22 POC Glucose (mg/dL) 148 H 153 H (70-110) mg/dL Microbiology - Last 24 Hours (Table) 01/10/23 17:30 Blood Culture - Preliminary Blood 01/10/23 18:15 Blood Culture - Preliminary Blood 01/10/23 15:50 Urine Culture - Preliminary Urine,Voided Group D Enterococcus Assessment and Plan Assessment: Acute hypoxemic respiratory failure, currently on 2 L/m nasal cannula, possibly secondary to healthcare associated pneumonia. Chest x-ray shows a left-sided pleural effusion and suspected left lower lobe infiltrate. No signs of any respiratory distress and the patient's is currently on room air oxygen Altered mental status, currently under investigation. Brain CT without contrast, one day prior, shows age-related atrophic and chronic small vessel ischemia without any acute intracranial process. I do suspect a component of anoxic encephalopathy this patient. This could be related to his recurrent seizures. She remains on a combination of Vimpat and Keppra. History of seizure disorder, currently on accommodation of Vimpat and Keppra End-stage renal disease, reportedly receives hemodialysis Monday, Monday, Monday schedule. Undergoing scheduled hemodialysis by nephrology and the patient is undergoing hemodialysis today Diabetes mellitus type 2, [id number] Hyperlipidemia Essential hypertension History of CVA Hypothyroidism GERD without esophagitis Questionable enterococcal UTI group, blood cultures are negative.D Plan: Overall respiratory status is stable Patient is currently on room air oxygen Check procalcitonin level was slightly elevated at 1.44 and this could be related to renal failure Continue bronchodilators Consult neurology to manage antiepileptics. Suspect anoxic encephalopathy Seizure precautions Hemodialysis per nephrology We will continue to follow
[2023-01-14] MEDS: CEFEPIME 1 GM in SODIUM CHLORIDE 0.9% 50 ML IVPB SCH (14:26)
[2023-01-14] MEDS ORDERED: LORazepam 2 MG/ML INJ ONE (14:29)
--- NOTE | 2023-01-14 15:45 | P.PN ---
Subjective Progress Note Date: 01/14/23 Follow-up for ESRD. Sleepy today. Objective - Vital Signs Vital signs: Vital Signs Temp 98.2 F 01/14/23 12:10 Pulse 96 01/14/23 15:42 Resp 14 01/14/23 12:10 BP 134/76 01/14/23 12:10 Pulse Ox 98 01/14/23 12:10 FiO2 Intake & Output 01/13/23 01/14/23 01/14/23 18:59 06:59 18:59 Intake Total 460 Output Total 2000 600 Balance -1540 -600 Weight 68.5 kg Intake: Oral 60 Hemodialysis 400 Output: Urine 600 Hemodialysis 2000 Other: Voiding Method Diaper Diaper # Bowel Movements 1 1 - Exam No acute distress S1-S2 heard Decreased breath sounds No edema - Labs CBC & Chem 7: 01/11/23 20:11 01/13/23 09:50 Labs: Abnormal Lab Results - Last 24 Hours (Table) 01/13/23 01/14/23 01/14/23 Range/Units 20:31 09:22 11:48 POC Glucose (mg/dL) 148 H 153 H 122 H (70-110) mg/dL Microbiology - Last 24 Hours (Table) 01/10/23 17:30 Blood Culture - Preliminary Blood 01/10/23 18:15 Blood Culture - Preliminary Blood 01/10/23 15:50 Urine Culture - Preliminary Urine,Voided Group D Enterococcus Assessment and Plan Assessment: #1 encephalopathy, concern for seizure disorder #2 ESRD on hemodialysis, MWF schedule #3 hypertension with ESRD #4 metabolic bone disease #5 anemia with ESRD Plan: #1 hemodialysis as per outpatient schedule. Next treatment on Monday #2 follow-up on computed tomography scan results #3 urology following
--- NOTE | 2023-01-14 15:53 | CT ---
EXAMINATION TYPE: CT brain wo con DATE OF EXAM: 01/14/2023 COMPARISON: HISTORY: ams CT DLP: 1231.[address] of the brain was performed. The ventricles, basal cisterns and sulci overlying the cerebral convexities demonstrate mild enlargem ent. There is no evidence for intracranial hemorrhage or sulcal effacement. There is decreased attenuation about the periventricular white matter and deep white matter of both c erebral hemispheres, compatible with chronic small vessel ischemia. Differential diagnosis does inclu de demyelination. No mass effects are seen.No midline shift. Osseous calvarium is intact. If symptoms persist consider MRI. IMPRESSION: 1. Age related atrophic and chronic small vessel ischemic change without acute intracranial process s een at this time.
[2023-01-14 16:45] LABS: Glucose,Whole Blood 107 mg/dL (70-110)
--- NOTE | 2023-01-14 19:10 | P.PN ---
Subjective This is a pleasant 52 years old male who presents with altered mental status secondary to metabolic encephalopathy possible breakthrough seizure, she has history of refractory seizure, she's been evaluated by neurologist and currently she is continued on her home dose of 4 seizure medication including Depakote, Vimpat, Keppra, zonisamide, neurologist recommended the patient follow up outpatient. Patient also suspected to have community acquired left lower lobe pneumonia and currently covered with cefepime. Also she is on Levaquin added by internal medical service on a prior days, when going through this continue Levaquin as it lowers seizure thresholds and patient is with no fever or leukocytosis. Urine cultures, group D enterococcus Patient herself is drowsy this morning, she knows she is in [place], she answers questions without difficulty and she follows simple commands, she's been evaluated by psychiatrist and found to have Asked to make decision. Melt Room Operator team for hemodialysis Patient is still complaining of from coughing and clinical tachypnea while at rest She is saturating well to 2 L/m of oxygen. Patient is in the process of obtaining public guardian, Follow-up with court hearing for possible public guardian. director workers compensation on the case 01/14/2023 Patient admitted initially for left lower lobe pneumonia and looks like she is doing well with no significant respiratory symptoms and currently on cefepime. Levaquin was discontinued yesterday as it lowers seizure threshold This morning patient is a staring in the air and does not follow command and looks her mentation situation is worth, also some twitching on the right side noticed by the staff. I discussed case with the neurologist, he increased seizure medication and currently she is on Depakote 1000 mg twice a day, Vimpat 150 twice a day, Keppra 500 mg IV twice a day as well as Zanasomide. Patient will need prolonged EEG per neurologist recommended to transfer the patient to tertiary care center, agreeable for the transfer. I called [facility] and they put her on the waiting list, I called [facility] which had all their systems and they said they can accept her in main branch in [place] but this will happen tomorrow or the day after, I called [facility] and they don't have a bed available at the several days. We will follow up with the patient closely for the transfer. s Objective - Vital Signs Vital signs: Vital Signs Temp 98.2 F 01/14/23 12:10 Pulse 87 01/14/23 12:10 Resp 14 01/14/23 12:10 BP 134/76 01/14/23 12:10 Pulse Ox 98 01/14/23 12:10 FiO2 Intake & Output 01/13/23 01/14/23 01/14/23 18:59 06:59 18:59 Intake Total 460 Output Total 2000 600 Balance -1540 -600 Weight 68.5 kg Intake: Oral 60 Hemodialysis 400 Output: Urine 600 Hemodialysis 2000 Other: Voiding Method Diaper Diaper # Bowel Movements 1 1 - Exam -GENERAL: The patient is awake but drowsy, not in any acute distress. Well developed, well nourished. HEENT: Pupils are round and equally reacting to light. EOMI. No scleral icterus. No conjunctival pallor. Normocephalic, atraumatic. No pharyngeal erythema. No thyromegaly. CARDIOVASCULAR: S1 and S2 present. No murmurs, rubs, or gallops. PULMONARY: Chest is clear to auscultation, no wheezing or crackles. ABDOMEN: Soft, nontender, nondistended, normoactive bowel sounds. No palpable organomegaly. MUSCULOSKELETAL: No joint swelling or deformity. EXTREMITIES: No cyanosis, clubbing, or pedal edema. NEUROLOGICAL: Gross neurological examination did not reveal any focal deficits. SKIN: No rashes. no petechiae. - Labs CBC & Chem 7: 01/11/23 20:11 01/13/23 09:50 Labs: Abnormal Lab Results - Last 24 Hours (Table) 01/13/23 01/14/23 01/14/23 Range/Units 20:31 09:22 11:48 POC Glucose (mg/dL) 148 H 153 H 122 H (70-110) mg/dL Microbiology - Last 24 Hours (Table) 01/10/23 17:30 Blood Culture - Preliminary Blood 01/10/23 18:15 Blood Culture - Preliminary Blood 01/10/23 15:50 Urine Culture - Preliminary Urine,Voided Group D Enterococcus Assessment and Plan Assessment: Left lower lobe pneumonia Altered mental status secondary to metabolic encephalopathy, possible breakthrou gh seizure Refractory epilepsy, possible breakthrough seizure history of CVA and left sonia-variances End-stage renal disease on hemodialysis possible UTI with a group B enterococci Plan: Contacted several tertiary care centers like [facility] and [facility] pending availability for transfer Continue with cefepime [facility] Infectious disease and pulmonary team on the case Continue with same seizure medication, Vimpat, Keppra, Depakote and zonisamide , neurologist on the case Labs and medication were reviewed.. Continue same treatment. Continue with symptomatic treatment. Resume home medication. Monitor labs and vitals. DVT and GI prophylaxis. Further recommendations as per clinical course of the patient DVT prophylaxis: Subcutaneous heparin GI Prophylaxis: Pepcid PT/OT: Recommended ECF Prognosis is guarded
[2023-01-14 20:04] LABS: Glucose,Whole Blood 88 mg/dL (70-110)
[2023-01-14 20:33] LABS: Glucose,Whole Blood 87 mg/dL (70-110)
[2023-01-14] MEDS ORDERED: Lacosamide IV (ages 17+ yrs) 200 MG/20 ML ML IVP STA (20:50)
[2023-01-14] MEDS ORDERED: DIVALPROEX 500 MG TABLET.DR PO SCH (21:00)
[2023-01-14 21:08] LABS: Glucose,Whole Blood 88 mg/dL (70-110)
[2023-01-14 21:19] LABS: ABG Base Excess 4.4 mmol/L; ABG HCO3 29 mmol/L (21-25); ABG Oxygen Saturation 96.5 % (94-97); ABG PCO2 43 mmHg (35-45); ABG PH 7.44 (7.35-7.45); ABG PO2 77 mmHg (83-108); ABG TCO2 30 mmol/L (19-24); Allen Test Performed? Yes
[2023-01-14] MEDS: levETIRAcetam IV 500 MG/5 ML VIAL IVP SCH (21:20)
[2023-01-14] MEDS: ATORVASTATIN 40 MG TAB PO SCH (22:09)
[2023-01-14] MEDS: Lacosamide IV (ages 17+ yrs) 200 MG/20 ML ML IVP SCH (22:25)
[2023-01-14] MEDS ORDERED: Lacosamide IV (ages 17+ yrs) 200 MG/20 ML ML IVP ONE (22:28)
--- NOTE | 2023-01-14 22:36 | P.PN ---
Subjective Progress Note Date: 01/14/23 Principal diagnosis: Pneumonia Patient is a 53-year-old female with a past medical history significant for end-stage renal disease on hemodialysis through the left upper arm fistula and snf resident patient has been sent to the ER for evaluation of mental status changes, patient just x-ray with left lower lobe infiltrate concerning for pneumonia. On today's evaluation that is 01/14/2023, the patient is afebrile the patient seem to be slightly more awake alert however not a very good historian patient is currently breathing comfortably on 2 L nasal oxygen no vomiting or diarrhea has been reported Objective - Vital Signs Vital signs: Vital Signs Temp 98.2 F 01/14/23 12:10 Pulse 87 01/14/23 12:10 Resp 14 01/14/23 12:10 BP 134/76 01/14/23 12:10 Pulse Ox 98 01/14/23 12:10 FiO2 Intake & Output 01/13/23 01/14/23 01/14/23 18:59 06:59 18:59 Intake Total 460 Output Total 1999 600 Balance -1540 -600 Weight 68.5 kg Intake: Oral 60 Hemodialysis 400 Output: Urine 600 Hemodialysis 2000 Other: Voiding Method Diaper Diaper # Bowel Movements 1 1 - Exam GENERAL DESCRIPTION: Middle-age female up in the chair in no distress RESPIRATORY SYSTEM: Unlabored breathing , decreased breath sounds at bases HEART: S1 S2 regular rate and rhythm , ABDOMEN: Soft , no tenderness EXTREMITIES: No edema feet - Labs CBC & Chem 7: 01/11/23 20:11 01/13/23 09:50 Labs: Abnormal Lab Results - Last 24 Hours (Table) 01/13/23 01/14/23 01/14/23 Range/Units 20:31 09:22 11:48 POC Glucose (mg/dL) 148 H 153 H 122 H (70-110) mg/dL Microbiology - Last 24 Hours (Table) 01/10/23 17:30 Blood Culture - Preliminary Blood 01/10/23 18:15 Blood Culture - Preliminary Blood 01/10/23 15:50 Urine Culture - Preliminary Urine,Voided Group D Enterococcus Assessment and Plan (1) Pneumonia Current Visit: Yes Status: Acute Code(s): J18.9 - PNEUMONIA, UNSPECIFIED ORGANISM SNOMED Code(s): 544127977 Plan: 1patient presented to hospital with mental status changes decreased level of responsiveness with evidence of left lower lobe infiltrate concerning for possible pneumonia, patient however did not have any fever or elevated white count, underlying pneumonia less likely but not excluded, patient also have a positive UA however this patient do have a history of end-stage renal disease on dialysis with no clinical significance 2-penicillin allergy of limit the number of antibiotics safe to use 3-patient did have elevated procalcitonin level of 1.44 4Patient is currently afebrile respiratory status is stable blood cultures are so far negative, patient urine culture growing Enterococcus however the patient hardly makes any urine and urine was not significantly positive possible col onization patient to continue with the cefepime and will monitor clinical course closely
[2023-01-14] MEDS: VALPROATE SODIUM 1,000 MG in SODIUM CHLORIDE 0.9% 50 ML IVPB SCH (22:49)
[2023-01-14] MEDS ORDERED: cloNIDine 0.1 MG/24HR PATCH TRANSDERM SCH (23:45)
[2023-01-15 05:26] LABS: Basophils % (A) 1 %; Eosinophils # (A) 0.1 k/uL (0-0.7); Eosinophils % (A) 2 %; HCT 28.5 % (34.0-46.0); HGB 9.8 gm/dL (11.4-16.0); Lymphocytes % (A) 37 %; MCH 32.8 pg (25.0-35.0); MCHC 34.3 g/dL (31.0-37.0); MCV 95.6 fL (80.0-100.0); Mean Platelet Volume 8.8; Monocytes # (A) 0.4 k/uL (0-1.0); Monocytes % (A) 7 %; Neutrophils # (A) 2.9 k/uL (1.3-7.7); Neutrophils % (A) 53 %; Platelet Count 106 k/uL (150-450); RBC 2.98 m/uL (3.80-5.40); RDW 13.6 % (11.5-15.5); WBC 5.4 k/uL (3.8-10.6)
[2023-01-15 05:41] LABS: ALT 12 U/L (4-34); AST 24 U/L (14-36); African American GFR (CKD) 8 (>60 ml/min/1.73 sqM); Albumin 3.2 g/dL (3.5-5.0); Alkaline Phosphatase 62 U/L (38-126); Anion Gap 11 mmol/L; Bilirubin, Delta 0.4 mg/dL (0.0-0.2); Bilirubin,Unconjugated 0.1 mg/dL (0.0-1.1); Blood Urea Nitrogen 26 mg/dL (7-17); Calcium 9.6 mg/dL (8.4-10.2); Carbon Dioxide 26 mmol/L (22-30); Chloride 96 mmol/L (98-107); Glucose 91 mg/dL (74-99); Non-African American GFR(CKD) 7 (>60 ml/min/1.73 sqM); Potassium 3.6 mmol/L (3.5-5.1); Sodium 133 mmol/L (137-145); Total Bilirubin 0.5 mg/dL (0.2-1.3)
[2023-01-15 07:02] LABS: Glucose,Whole Blood 92 mg/dL (70-110)
[2023-01-15] MEDS: ZONISAMIDE 100 MG CAP PO SCH ×3 (07:24→20:33)
[2023-01-15] MEDS: INSULIN ASPART (NovoLOG) 100 UNIT/ML VIAL SQ SCH ×3 (07:24→17:57)
[2023-01-15] MEDS: IPRATROPIUM-ALBUTEROL 3 ML NEB INHALATION SCH ×3 (07:53→19:43)
--- NOTE | 2023-01-15 09:05 | P.PN ---
Subjective Progress Note Date: 01/15/23 I am seeing this patient in new consultation today 01/11/2023 in the emergency room possible left lower lobe pneumonia. Patient is a 53-year-old female with past medical history significant for multiple comorbidities including end-stage renal disease, seizure disorder, CVA, diabetes mellitus, GERD, hyperlipidemia, hypertension, hypothyroidism. Patient was sent in from [facility] on the [place] yesterday afternoon for concerns about altered mental status. There was also concern for nausea and retching. She has had multiple prior emergency room visits and hospital admissions in the past for similar symptoms. She actually had an ER visit on January 09 for altered mental status. She was discharged back to [facility], and returned yesterday afternoon. She also has history of ventilator dependence for status epilepticus. No reports of seizure activity on this admission. Patient apparently continues to have seizures about once per week to once per month. Patient is currently sitting up in bed, alert but nonverbal, in no acute distress. She does not follow commands. She is on 2 L/m nasal cannula and oxygenating at 100%. Chest x-ray on arrival shows small left pleural effusion and possible left lower lobe infiltrate. Patient is currently on Levaquin for empiric antibiotics. She is afebrile. CBC on arrival was unremarkable. BMP shows sodium 138, potassium 4.4, chloride 99, serum bicarb 24, BUN 63, creatinine 9.6, glucose 186. Patient reportedly does receive hemodialysis on Monday, Monday, Monday schedule. Troponins negative 1. Ammonia level was low. Urinalysis was not particularly concerning for UTI. Brain CT without contrast, one day prior, shows age-related atrophic and chronic small vessel ischemia without any acute intracranial process. Patient will be admitted to the cardiac stepdown unit once bed available. On today's evaluation of 01/12/2023, the patient is stable. No worsening shortness of breath. In fact I do not see any signs of any respiratory distress this patient. No aspiration. No cough or sputum production. No fever or chills. No seizure activity overnight. The patient is following simple commands only. Neurology is on the case regarding her underlying mental status. The patient remains on Levaquin. Patient is also on cefepime. During culture was positive for enterococcus group D. The blood culture showing no growth. On 01/10/2023, the neurologic status of the patient remains unchanged. She doesn't do a lot of talking and she doesn't communicate. She doesn't minimum And Neurology Is on the Case. Suspect a Component of Anoxic Encephalopathy. The Patient Is Also Being Treated for Seizures and She Remains on a Combination of Keppra and Vimpat. No Respiratory Distress. No Significant Cough or Sputum Production. Breathing Is Nonlabored and the Patient Is Undergoing Hemodialysis Today. She Is on IV Cefepime for Now. She Remains on Oxygen at 2 L/M Nasal Cannula with a Pulse Ox of 99%. The Blood Work from Today Shows a Sodium Level of 136, BUN Is 43 with a Creatinine of 8.5 and a Potassium Is at 3.9. Bicarb Level Is at 26. She Was Found to Have Enterococcus Group D in Her Urine. On 01/14/2023, patient has no respiratory difficulties. The patient remains on antibiotics and she is currently on IV cefepime. No change in her neurologic functions for now. She is hemodynamically stable. She is on room air oxygen.On today's evaluation of 01/15/2023, the patient is in the intensive care unit. Noted the patient had worsening in her condition. Her baseline condition was being nonverbal or saying a few words without holding a conversation. She did subsequently started having twitching in her right side and this was noted by the nursing staff. Neurology was involved in the patient's was given higher doses of antiepileptic medication patient was placed on Depakote 1 g twice a day, Vimpat 150 mg twice a day, Keprra 500 mg IV every 12 hours and zonisamide. Ranges also made to transfer this patient to another hospital for continuous EEG monitoring. Meanwhile, the patient got transferred to the intensive care unit. She is extremely drowsy, nonverbal, not communicating at this point in time, which is why close to baseline. She underwent hemodialysis yesterday without any major issues. She has a positive cough and a gag. She was kept on 2 L of oxygen by nasal cannula. The blood gas was also done yesterday that showed a pH of 7.44 with a pCO2 43 pO2 77. The white cycles of 5.4 with a hemoglobin 9.8 and a platelet count of 106. BUN is 26 with a creatinine of 6.4 and a sodium level is at 133. A repeat CAT scan of the brain was done yesterday that showed age-related atrophy with chronic small vessel ischemic changes. Objective - Vital Signs Vital signs: Vital Signs Temp 98.2 F 01/15/23 04:00 Pulse 79 01/15/23 07:00 Resp 16 01/15/23 07:00 BP 142/76 01/15/23 07:00 Pulse Ox 99 01/15/23 07:00 FiO2 Intake & Output 01/14/23 01/15/23 01/15/23 18:59 06:59 18:59 Intake Total 50 Output Total 0 0 Balance 50 0 Weight 69.7 kg Intake: IV 50 Valproate Sodium 1,000 mg 50 In Sodium Chloride 0.9% 50 ml @ 50 mls/hr IVPB BID [facility] Rx#:[id number] Output: Urine 0 0 Other: Voiding Method Diaper Diaper # Bowel Movements 1 1 - Exam GENERAL EXAM: Alert but nonverbal, 53-year-old female, comfortable in no apparent distress. The patient is currently on 2 L of oxygen by nasal cannula HEAD: Normocephalic and atraumatic EYES: Normal reaction of pupils, equal size. NOSE: Clear with pink turbinates. THROAT: No erythema or exudates. NECK: No masses, no JVD. CHEST: No chest wall deformity. There is a left chest implanted device LUNGS: Equal air entry with left lower lobe inspiratory crackles. No wheezing, rhonchi. No conversational dyspnea or accessory muscle use.. CVS: S1 and S2 normal with no audible murmur, regular rhythm. No extra heart sounds ABDOMEN: No hepatosplenomegaly, active bowel sounds, no guarding or rigidity. SPINE: No scoliosis or deformity SKIN: No rashes CENTRAL NERVOUS SYSTEM: No focal deficits, tone is normal in all 4 extremities. No seizure activity noted. Quite obtunded this point in time. No visible seizures. Positive cough and a gag EXTREMITIES: There is no peripheral edema, clubbing, or cyanosis. Peripheral pulses are intact. There is a left arm AV fistula - Labs CBC & Chem 7: 01/15/23 04:23 01/15/23 04:23 Labs: Abnormal Lab Results - Last 24 Hours (Table) 01/14/23 01/14/23 01/14/23 Range/Units 09:22 11:48 21:15 RBC (3.80-5.40) m/uL Hgb (11.4-16.0) gm/dL Hct (34.0-46.0) % Plt Count (150-450) k/uL ABG pO2 77 L (83-108) mmHg ABG HCO3 29 H (21-25) mmol/L ABG Total CO2 30 H (19-24) mmol/L Sodium (137-145) mmol/L Chloride (98-107) mmol/L BUN (7-17) mg/dL Creatinine (0.52-1.04) mg/dL POC Glucose (mg/dL) 153 H 122 H (70-110) mg/dL Delta Bilirubin (0.0-0.2) mg/dL Total Protein (6.3-8.2) g/dL Albumin (3.5-5.0) g/dL 01/15/23 01/15/23 Range/Units 04:23 04:23 RBC 2.98 L (3.80-5.40) m/uL Hgb 9.8 L (11.4-16.0) gm/dL Hct 28.5 L (34.0-46.0) % Plt Count 106 L (150-450) k/uL ABG pO2 (83-108) mmHg ABG HCO3 (21-25) mmol/L ABG Total CO2 (19-24) mmol/L Sodium 133 L (137-145) mmol/L Chloride 96 L (98-107) mmol/L BUN 26 H (7-17) mg/dL Creatinine 6.41 H (0.52-1.04) mg/dL POC Glucose (mg/dL) (70-110) mg/dL Delta Bilirubin 0.4 H (0.0-0.2) mg/dL Total Protein 6.0 L (6.3-8.2) g/dL Albumin 3.2 L (3.5-5.0) g/dL Microbiology - Last 24 Hours (Table) 01/10/23 18:15 Blood Culture - Preliminary Blood 01/10/23 17:30 Blood Culture - Preliminary Blood Assessment and Plan Assessment: Acute hypoxemic respiratory failure, currently on 2 L/m nasal cannula, possibly secondary to healthcare associated pneumonia. Chest x-ray shows a left-sided pleural effusion and suspected left lower lobe infiltrate. The patient is currently on cefepime Altered mental status, currently under investigation. Brain CT without contrast, one day prior, shows age-related atrophic and chronic small vessel ischemia without any acute intracranial process. I do suspect a component of anoxic e ncephalopathy this patient. This could be related to his recurrent seizures. She remains on a combination of Vimpat and Keppra. Subsequently, the patient started having episodes of seizure activity yesterday and the patient got transferred to the intensive care unit. Currently being transferred to a tertiary care center. She remains on Keppra, Vimpat, Depakote benzodiazepines are being avoided as the patient is quite obtunded this point in time, probably postictal History of seizure disorder, currently on accommodation of Vimpat and Keppra, on outpatient basis End-stage renal disease, reportedly receives hemodialysis Monday, Monday, Monday schedule. Undergoing scheduled hemodialysis by nephrology and the patient is undergoing hemodialysis was done yesterday Diabetes mellitus type 2, [id number] Hyperlipidemia Essential hypertension History of CVA Hypothyroidism GERD without esophagitis Questionable enterococcal UTI group, blood cultures are negative.D Plan: Patient is able to protect her airways. She has a positive cough and a gag No need for intubation Continue antiepileptic medications Continue IV cefepime Overall respiratory status is stable Suspect anoxic encephalopathy Seizure precautions Hemodialysis per nephrology, hemodialysis session was done yesterday We will continue to follow She is being transferred to [facility] in [place]
[2023-01-15] MEDS: Lacosamide IV (ages 17+ yrs) 200 MG/20 ML ML IVP SCH ×2 (09:52→20:59)
[2023-01-15] MEDS: VALPROATE SODIUM 1,000 MG in SODIUM CHLORIDE 0.9% 50 ML IVPB SCH ×2 (09:52→21:00)
[2023-01-15] MEDS: FAMOTIDINE 20 MG/2 ML VIAL IV SCH ×2 (09:53→20:59)
[2023-01-15] MEDS: levETIRAcetam IV 500 MG/5 ML VIAL IVP SCH ×2 (09:53→20:59)
[2023-01-15] MEDS: NON FORMULARY DRUG (Icosapent Ethyl [Icosapent Ethyl] 1 GM Capsule) PO SCH ×2 (09:53→20:33)
[2023-01-15] MEDS: HEPARIN SODIUM,PORCINE/PF 5,000 UNIT/0.5 ML SYRINGE SQ SCH ×2 (09:53→20:59)
[2023-01-15] MEDS: amLODIPine 5 MG TAB PO SCH (09:53)
[2023-01-15] MEDS: SEVELAMER 800 MG TAB PO SCH ×2 (09:54→20:33)
[2023-01-15 11:39] LABS: Glucose,Whole Blood 81 mg/dL (70-110)
[2023-01-15] MEDS: CEFEPIME 1 GM in SODIUM CHLORIDE 0.9% 50 ML IVPB SCH (11:45)
--- NOTE | 2023-01-15 14:29 | P.PN ---
Subjective Progress Note Date: 01/15/23 Yesterday in the very late afternoon and evening time, nurse felt patient continues to have tremor of the right upper extremity. She was given multiple ativan doses. She also received 150mg VImpat at night. She was minimal responsive and only opening her eyes. She was transferred to ICU. I was notified by her nurse she was DNAR. She was accepted to [facility] for nursing home EEG and was notified the transfer will likely happen today. I was told by ICU nurse that she has few episodes of right upper extremity tremor that were brief. Continues to be minimally responsive and open and close eyes but not verbalizing. Objective - Vital Signs Vital signs: Vital Signs Temp 98.6 F 01/15/23 08:00 Pulse 84 01/15/23 10:00 Resp 20 01/15/23 10:00 BP 138/75 01/15/23 10:00 Pulse Ox 97 01/15/23 10:00 FiO2 Intake & Output 01/14/23 01/15/23 01/15/23 18:59 06:59 18:59 Intake Total 50 50 Output Total 0 0 Balance 50 50 Weight 69.7 kg Intake: IV 50 50 Valproate Sodium 1,000 mg 50 50 In Sodium Chloride 0.9% 50 ml @ 50 mls/hr IVPB BID [facility] Rx#:[id number] Output: Urine 0 0 Other: Voiding Method Diaper Diaper # Bowel Movements 1 1 - Exam Neuro exam is limited Patient is has her awake but extremely slow following few simple commands (thumbs up and attempting to sick her tongue out). Pupils are round, equal and reactive to light. She is tracking. Mild right lower facial weakness. Motor: Strength is limited in limited because of her condition. Some other workup during his hospital visit consisted of: Ammonia is 11. Her Calcium magnesium sodium liver function is within normal limits. Urine drug seeing is not detected. Urine culture is Group D enterococcus. Routine EEG is abnormal. The back slowing suggestive of mild to moderate encephalopathy. Epileptiform discharges over the left central parietal region increases risk for seizure. Otherwise no seizure noted during the study. Local correlation recommended CT head is reported as age related atrophic and chronic small vessel ischemic change without acute intracranial process seen at this time. I personally reviewed CT head and there is not acute or subacute stroke. There is old left thalamus/basal ganglia old stroke. - Labs CBC & Chem 7: 01/15/23 04:23 01/15/23 04:23 Labs: Abnormal Lab Results - Last 24 Hours (Table) 01/14/23 01/15/23 01/15/23 Range/Units 21:15 04:23 04:23 RBC 2.98 L (3.80-5.40) m/uL Hgb 9.8 L (11.4-16.0) gm/dL Hct 28.5 L (34.0-46.0) % Plt Count 106 L (150-450) k/uL ABG pO2 77 L (83-108) mmHg ABG HCO3 29 H (21-25) mmol/L ABG Total CO2 30 H (19-24) mmol/L Sodium 133 L (137-145) mmol/L Chloride 96 L (98-107) mmol/L BUN 26 H (7-17) mg/dL Creatinine 6.41 H (0.52-1.04) mg/dL Delta Bilirubin 0.4 H (0.0-0.2) mg/dL Total Protein 6.0 L (6.3-8.2) g/dL Albumin 3.2 L (3.5-5.0) g/dL Microbiology - Last 24 Hours (Table) 01/10/23 18:15 Blood Culture - Preliminary Blood Assessment and Plan Assessment: This is a 53-year-old woman with history of 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 -Altered mental status and suspect had breakthrough seizure-- No seizure on EEG but has discharges over left parietal/central region--has worsening mentation and has tremor--concern for seizure and possible status. Her seizure could also be provoked due to underlying UTI and pneumonia. Patient is on 4 antiepileptic drugs, on VNS. Her medication regimen was increased and was given Ativan during this admission. -Encephalopathy due to concerns for seizure as well, as sepsis from UTI and pneumonia. 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 She has multiple admissions to our facility as well as outside facility. She had a prolonged EEG in our facility and was suggestive of primary generalized epilepsy -Acute UTI -Acute hypoxic respiratory failure secondary due to possibly healthcare associated pneumonia. -Left ICA stenosis of 75% stenosis on CTA but discrepancy on carotid duplex and not significant -History of stroke with residual left hemiparesis -Diabetes mellitus -End-stage renal disease on dialysis -Hypertension Plan: -Continue home antiepileptic of Keppra 500 mg 1 tablet twice a day with additional 500 postdialysis, Vimpat 150 mg 2 times a day with additional dose postdialysis, Zonegran 100 mg a tablet 3 times a day. I increased Depakote 500 mg 1 tablet twice a day to 1000mg bid since concerned for continued seizures with loading dose of Depakote 1000mg. Her Depakote level was subtherapeutic and unsure if due to low dose. Will also give her one time Ativan 1mg now. -Patient is being transfered for nursing home EEG (was accepted to [facility]). -Pending 2.5 hour EEG could not be performed yesterday by tech since no availability and likely will be done this Monday if continues to be in our facility. Levels: Keppra 54.6 (normal 3-60), Depakote: 39.7 (normal 50-120). Unsure if Depakote is subtherapeutic since low dose vs missed medicaiton. Repeat Valproic acid is 53.0. Pending vimpat level to make sure not subtherapeutic. Routine EEG showed left central/parietal epileptiform discharges which can incre ase risk for seizure. No seizure noted during this study.. She had multiple EEG in the past and prolonged EEG in our facility and was felt primary generalized epilepsy. On seizure precaution and pads. On Ativan 1mg every 4 hours PRN for seizures. Recommend the patient to follow-up with epileptologist as outpatient and recommend EMU. She had multiple admission to our facility and outside facilit y. She is on 4 antieplileptic drugs and continues to have seizures. Consider start on Epidiolex as outpatient since had medical refractory epilepsy and that was recommended on prior visits. Will defer the rest of medical management to her primary and other specialist. Again, patient is pending to be transferred to tertiary center for nursing home EEG. The plan is discussed with her primary attending and her nurse. Time with Patient: Greater than 30
--- NOTE | 2023-01-15 15:23 | P.PN ---
Subjective Progress Note Date: 01/15/23 Follow-up for ESRD. Transfer to ICU for encephalopathy. Objective - Vital Signs Vital signs: Vital Signs Temp 98.6 F 01/15/23 08:00 Pulse 84 01/15/23 10:00 Resp 20 01/15/23 10:00 BP 138/75 01/15/23 10:00 Pulse Ox 97 01/15/23 10:00 FiO2 Intake & Output 01/14/23 01/15/23 01/15/23 18:59 06:59 18:59 Intake Total 50 50 Output Total 0 0 Balance 50 50 Weight 69.7 kg Intake: IV 50 50 Valproate Sodium 1,000 mg 50 50 In Sodium Chloride 0.9% 50 ml @ 50 mls/hr IVPB BID [facility] Rx#:[id number] Output: Urine 0 0 Other: Voiding Method Diaper Diaper # Bowel Movements 1 1 - Exam No acute distress S1-S2 heard Decreased breath sounds No edema - Labs CBC & Chem 7: 01/15/23 04:23 01/15/23 04:23 Labs: Abnormal Lab Results - Last 24 Hours (Table) 01/14/23 01/15/23 01/15/23 Range/Units 21:15 04:23 04:23 RBC 2.98 L (3.80-5.40) m/uL Hgb 9.8 L (11.4-16.0) gm/dL Hct 28.5 L (34.0-46.0) % Plt Count 106 L (150-450) k/uL ABG pO2 77 L (83-108) mmHg ABG HCO3 29 H (21-25) mmol/L ABG Total CO2 30 H (19-24) mmol/L Sodium 133 L (137-145) mmol/L Chloride 96 L (98-107) mmol/L BUN 26 H (7-17) mg/dL Creatinine 6.41 H (0.52-1.04) mg/dL Delta Bilirubin 0.4 H (0.0-0.2) mg/dL Total Protein 6.0 L (6.3-8.2) g/dL Albumin 3.2 L (3.5-5.0) g/dL Microbiology - Last 24 Hours (Table) 01/10/23 18:15 Blood Culture - Preliminary Blood Assessment and Plan Assessment: #1 encephalopathy, concern for seizure disorder #2 ESRD on hemodialysis, MWF schedule #3 hypertension with ESRD #4 metabolic bone disease #5 anemia with ESRD Plan: #1 hemodialysis as per outpatient schedule. Next treatment on Monday #2 follow-up on computed tomography scan results #3 Neurology following
[2023-01-15] MEDS ORDERED: hydrALAZINE HCL 20 MG/ML 1 ML VIAL IVP STA (17:52)
[2023-01-15 17:54] LABS: Glucose,Whole Blood 71 mg/dL (70-110)
[2023-01-15] MEDS ORDERED: cloNIDine 0.2 MG/24HR PATCH TRANSDERM SCH (18:00)
[2023-01-15] MEDS: ATORVASTATIN 40 MG TAB PO SCH (20:33)
--- NOTE | 2023-01-15 21:44 | P.PN ---
Subjective This is a pleasant 52 years old male who presents with altered mental status secondary to metabolic encephalopathy possible breakthrough seizure, she has history of refractory seizure, she's been evaluated by neurologist and currently she is continued on her home dose of 4 seizure medication including Depakote, Vimpat, Keppra, zonisamide, neurologist recommended the patient follow up outpatient. Patient also suspected to have community acquired left lower lobe pneumonia and currently covered with cefepime. Also she is on Levaquin added by internal medical service on a prior days, when going through this continue Levaquin as it lowers seizure thresholds and patient is with no fever or leukocytosis. Urine cultures, group D enterococcus Patient herself is drowsy this morning, she knows she is in [place], she answers questions without difficulty and she follows simple commands, she's been evaluated by psychiatrist and found to have Asked to make decision. Academic Program Specialist team for hemodialysis Patient is still complaining of from coughing and clinical tachypnea while at rest She is saturating well to 2 L/m of oxygen. Patient is in the process of obtaining public guardian, Follow-up with court hearing for possible public guardian. liner worker on the case 01/14/2023 Patient admitted initially for left lower lobe pneumonia and looks like she is doing well with no significant respiratory symptoms and currently on cefepime. Levaquin was discontinued yesterday as it lowers seizure threshold This morning patient is a staring in the air and does not follow command and looks her mentation situation is worth, also some twitching on the right side noticed by the staff. I discussed case with the neurologist, he increased seizure medication and currently she is on Depakote 1000 mg twice a day, Vimpat 150 twice a day, Keppra 500 mg IV twice a day as well as Zanasomide. Patient will need prolonged EEG per neurologist recommended to transfer the patient to tertiary care center, agreeable for the transfer. I called [facility] and they put her on the waiting list, I called [facility] which had all their systems and they said they can accept her in main branch in [place] but this will happen tomorrow or the day after, I called [facility] and they don't have a bed available at the several days. We will follow up with the patient closely for the transfer. s Patient remains in the ICU, she is calm no active seizures noted. Yesterday was transferred to the ICU for worsening mentation and patient was kept staring in the ear unresponsive with some twitching on the right side noted and she received 1 dose of Ativan per neurologist on the case and patient was transferred to the ICU for further close monitoring with plan to transfer to to the tertiary care center yesterday I spoke with from [facility] in [facility] and I discussed the case with him and he currently accepted the patient also the nursing supervisor liquefaction this morning contacted the same hospital and they confirmed she's on the transfer list pending bed availability. This morning she is slightly and mildly better, she opens eyes to verbal stimuli is and look at me but does not answer question or follow commands compared to continue with staring as of yesterday. Patient's urine culture came back positive for VRE. Initially patient thought she has pneumonia but I think patient currently complaining of from metabolic encephalopathy secondary to VRE UTI. Patient is currently on cefepime but VRE is resistant to penicillin and vancomycin therefore going to start daptomycin today in follow-up with infectious disease team on the case. Persistent seizure or recurrent seizure is suspected however I think this is less likely as patient currently on 4 seizure medication and received an fifth medication of Ativan yesterday, Ativan also may be contributing to her altered mental status. However seizure cannot be entirely excluded currently and I think she still needs to be transferred to [facility] for prolonged EEG. Especially infection could lower seizure thresholds. Objective - Vital Signs Vital signs: Vital Signs Temp 98.6 F 01/15/23 16:00 Pulse 116 H 01/15/23 19:53 Resp 13 01/15/23 19:00 BP 130/70 01/15/23 19:00 Pulse Ox 95 01/15/23 19:00 FiO2 Intake & Output 01/15/23 01/15/23 01/16/23 06:59 18:59 06:59 Intake Total 50 100.0 Output Total 0 0 0 Balance 50 100.0 0 Weight 69.7 kg Intake: IV 50 100.0 Cefepime 1 gm In Sodium 50.0 Chloride 0.9% 50 ml @ 12. 5 mls/hr IVPB DAILY [facility] Rx#:[id number] Valproate Sodium 1,000 mg 50 50 In Sodium Chloride 0.9% 50 ml @ 50 mls/hr IVPB BID [facility] Rx#:[id number] Output: Urine 0 0 0 Other: Voiding Method Diaper # Bowel Movements 1 1 - Exam -GENERAL: The patient is awake but drowsy, not in any acute distress. Well developed, well nourished. HEENT: Pupils are round and equally reacting to light. EOMI. No scleral icterus. No conjunctival pallor. Normocephalic, atraumatic. No pharyngeal erythema. No thyromegaly. CARDIOVASCULAR: S1 and S2 present. No murmurs, rubs, or gallops. PULMONARY: Chest is clear to auscultation, no wheezing or crackles. ABDOMEN: Soft, nontender, nondistended, normoactive bowel sounds. No palpable organomegaly. MUSCULOSKELETAL: No joint swelling or deformity. EXTREMITIES: No cyanosis, clubbing, or pedal edema. NEUROLOGICAL: Gross neurological examination did not reveal any focal deficits. SKIN: No rashes. no petechiae. - Labs CBC & Chem 7: 01/15/23 04:23 01/15/23 04:23 Labs: Abnormal Lab Results - Last 24 Hours (Table) 01/15/23 01/15/23 Range/Units 04:23 04:23 RBC 2.98 L (3.80-5.40) m/uL Hgb 9.8 L (11.4-16.0) gm/dL Hct 28.5 L (34.0-46.0) % Plt Count 106 L (150-450) k/uL Sodium 133 L (137-145) mmol/L Chloride 96 L (98-107) mmol/L BUN 26 H (7-17) mg/dL Creatinine 6.41 H (0.52-1.04) mg/dL Delta Bilirubin 0.4 H (0.0-0.2) mg/dL Total Protein 6.0 L (6.3-8.2) g/dL Albumin 3.2 L (3.5-5.0) g/dL Assessment and Plan Assessment: VRE UTI Altered mental status secondary to metabolic encephalopathy secondary to infection and metabolic abnormalities, possible breakthrough seizure Left lower lobe pneumonia Refractory epilepsy, possible breakthrough seizure history of CVA and left sonia-variances End-stage renal disease on hemodialysis possible UTI with a group B enterococci Plan: Contacted several tertiary care centers like [facility] and [facility] pending availability for transfer Continue with cefepime, however we added daptomycin Pending transfer to [facility] for prolonged EEG and further higher level of care. Infectious disease and pulmonary team on the case Continue with same seizure medication, Vimpat, Keppra, Depakote and zonisamide , neurologist on the case Labs and medication were reviewed.. Continue same treatment. Continue with symptomatic treatment. Resume home medication. Monitor labs and vitals. DVT and GI prophylaxis. Further recommendations as per clinical course of the patient DVT prophylaxis: Subcutaneous heparin GI Prophylaxis: Pepcid PT/OT: Recommended ECF Prognosis is guarded
[2023-01-15 22:18] LABS: Glucose,Whole Blood 89 mg/dL (70-110)
[2023-01-16] MEDS: INSULIN ASPART (NovoLOG) 100 UNIT/ML VIAL SQ SCH ×4 (00:50→18:12)
[2023-01-16 00:51] LABS: Glucose,Whole Blood 100 mg/dL (70-110)
[2023-01-16 04:18] LABS: Basophils % (A) 0 %; Eosinophils % (A) 0 %; HCT 32.4 % (34.0-46.0); HGB 10.8 gm/dL (11.4-16.0); Lymphocytes # (A) 0.9 k/uL (1.0-4.8); Lymphocytes % (A) 11 %; MCH 32.6 pg (25.0-35.0); MCHC 33.4 g/dL (31.0-37.0); MCV 97.5 fL (80.0-100.0); Mean Platelet Volume 9.1; Monocytes # (A) 0.4 k/uL (0-1.0); Monocytes % (A) 5 %; Neutrophils # (A) 7.1 k/uL (1.3-7.7); Neutrophils % (A) 83 %; Platelet Count 116 k/uL (150-450); RBC 3.32 m/uL (3.80-5.40); RDW 13.7 % (11.5-15.5); WBC 8.5 k/uL (3.8-10.6)
[2023-01-16 05:08] LABS: Anion Gap 20 mmol/L; Blood Urea Nitrogen 41 mg/dL (7-17); Calcium 9.9 mg/dL (8.4-10.2); Carbon Dioxide 17 mmol/L (22-30); Chloride 96 mmol/L (98-107); Glucose 97 mg/dL (74-99); Potassium 4.8 mmol/L (3.5-5.1); Sodium 133 mmol/L (137-145)
[2023-01-16 05:14] LABS: African American GFR (CKD) 6 (>60 ml/min/1.73 sqM); Non-African American GFR(CKD) 5 (>60 ml/min/1.73 sqM)
[2023-01-16] MEDS: ZONISAMIDE 100 MG CAP PO SCH ×3 (06:30→22:29)
[2023-01-16 06:37] LABS: Glucose,Whole Blood 104 mg/dL (70-110)
[2023-01-16] MEDS: IPRATROPIUM-ALBUTEROL 3 ML NEB INHALATION SCH ×3 (07:54→20:01)
[2023-01-16] MEDS: HEPARIN SODIUM,PORCINE/PF 5,000 UNIT/0.5 ML SYRINGE SQ SCH ×2 (09:20→21:18)
[2023-01-16] MEDS: FAMOTIDINE 20 MG/2 ML VIAL IV SCH ×2 (09:20→21:18)
[2023-01-16] MEDS: CEFEPIME 1 GM in SODIUM CHLORIDE 0.9% 50 ML IVPB SCH (09:20)
[2023-01-16] MEDS: NON FORMULARY DRUG (Icosapent Ethyl [Icosapent Ethyl] 1 GM Capsule) PO SCH ×2 (09:21→22:02)
[2023-01-16] MEDS: Lacosamide IV (ages 17+ yrs) 200 MG/20 ML ML IVP SCH ×2 (09:46→21:19)
[2023-01-16] MEDS: levETIRAcetam IV 500 MG/5 ML VIAL IVP SCH ×2 (09:47→21:18)
--- NOTE | 2023-01-16 12:20 | P.PN ---
Subjective Progress Note Date: 01/16/23 Principal diagnosis: Acute metabolic encephalopathy, VRE urinary tract infection possible left lower lobe pneumonia, refractory seizures. I am seeing this patient in new consultation today 01/11/2023 in the emergency room possible left lower lobe pneumonia. Patient is a 53-year-old female with past medical history significant for multiple comorbidities including end-stage renal disease, seizure disorder, CVA, diabetes mellitus, GERD, hyperlipidemia, hypertension, hypothyroidism. Patient was sent in from [facility] on the [place] yesterday afternoon for concerns about altered mental status. There was also concern for nausea and retching. She has had multiple prior emergency room visits and hospital admissions in the past for similar symptoms. She actually had an ER visit on January 09 for altered mental status. She was discharged back to [facility], and returned yesterday afternoon. She also has history of ventilator dependence for status epilepticus. No reports of seizure activity on this admission. Patient apparently continues to have seizures about once per week to once per month. Patient is currently sitting up in bed, alert but nonverbal, in no acute distress. She does not follow commands. She is on 2 L/m nasal cannula and oxygenating at 100%. Chest x-ray on arrival shows small left pleural effusion and possible left lower lobe infiltrate. Patient is currently on Levaquin for empiric antibiotics. She is afebrile. CBC on arrival was unremarkable. BMP shows sodium 138, potassium 4.4, chloride 99, serum bicarb 24, BUN 63, creatinine 9.6, glucose 186. Patient reportedly does receive hemodialysis on Monday, Monday, Monday schedule. Troponins negative 1. Ammonia level was low. Urinalysis was not particularly concerning for UTI. Brain CT without contrast, one day prior, shows age-related atrophic and chronic small vessel ischemia without any acute intracranial process. Patient will be admitted to the cardiac stepdown unit once bed available. On today's evaluation of 01/12/2023, the patient is stable. No worsening shortness of breath. In fact I do not see any signs of any respiratory distress this patient. No aspiration. No cough or sputum production. No fever or chills. No seizure activity overnight. The patient is following simple commands only. Neurology is on the case regarding her underlying mental status. The patient remains on Levaquin. Patient is also on cefepime. During culture was positive for enterococcus group D. The blood culture showing no growth. On 01/10/2023, the neurologic status of the patient remains unchanged. She doesn't do a lot of talking and she doesn't communicate. She doesn't minimum And Neurology Is on the Case. Suspect a Component of Anoxic Encephalopathy. The Patient Is Also Being Treated for Seizures and She Remains on a Combination of Keppra and Vimpat. No Respiratory Distress. No Significant Cough or Sputum Production. Breathing Is Nonlabored and the Patient Is Undergoing Hemodialysis Today. She Is on IV Cefepime for Now. She Remains on Oxygen at 2 L/M Nasal Ca nnula with a Pulse Ox of 99%. The Blood Work from Today Shows a Sodium Level of 136, BUN Is 43 with a Creatinine of 8.5 and a Potassium Is at 3.9. Bicarb Level Is at 26. She Was Found to Have Enterococcus Group D in Her Urine. On 01/14/2023, patient has no respiratory difficulties. The patient remains on antibiotics and she is currently on IV cefepime. No change in her neurologic functions for now. She is hemodynamically stable. She is on room air oxygen.On today's evaluation of 01/15/2023, the patient is in the intensive care unit. Noted the patient had worsening in her condition. Her baseline condition was being nonverbal or saying a few words without holding a conversation. She did subsequently started having twitching in her right side and this was noted by the nursing staff. Neurology was involved in the patient's was given higher doses of antiepileptic medication patient was placed on Depakote 1 g twice a day, Vimpat 150 mg twice a day, Keprra 500 mg IV every 12 hours and zonisamide. Ranges also made to transfer this patient to another hospital for continuous EEG monitoring. Meanwhile, the patient got transferred to the intensive care unit. She is extremely drowsy, nonverbal, not communicating at this point in time, which is why close to baseline. She underwent hemodialysis yesterday without any major issues. She has a positive cough and a gag. She was kept on 2 L of oxygen by nasal cannula. The blood gas was also done yesterday that showed a pH of 7.44 with a pCO2 43 pO2 77. The white cycles of 5.4 with a hemoglobin 9.8 and a platelet count of 106. BUN is 26 with a creatinine of 6.4 and a sodium level is at 133. A repeat CAT scan of the brain was done yesterday that showed age-related atrophy with chronic small vessel ischemic changes. Reevaluated today on 01/15/2023, remains in the ICU, remains encephalopathic, but pulmonary-rahman she is not in any distress. Patient does not follow any instructions, she is to have a nasogastric tube for enteral feeding and for medications to be given orally. Cannot take anything orally as she is not cooperative. Patient is being followed by many consultants, and my understanding we are waiting for a bed to be available at [facility]. Labs today were reviewed she had a relatively normal CBC except for hemoglobin of 10.8 relatively normal electrolytes, her creatinine is up to 8.01, it was 6.41 yesterday. And that being addressed by nephrology on the case, patient has end-stage renal disease, on hemodialysis Mondays 1 days and Fridays and she has hypertension and end-stage renal disease Objective - Vital Signs Vital signs: Vital Signs Temp 98.7 F 01/16/23 08:00 Pulse 100 01/16/23 09:00 Resp 17 01/16/23 09:00 BP 184/98 01/16/23 09:00 Pulse Ox 97 01/16/23 09:00 FiO2 Intake & Output 01/15/23 01/16/23 01/16/23 18:59 06:59 18:59 Intake Total 100.0 100 115 Output Total 0 0 0 Balance 100.0 100 115 Weight 69.2 kg Intake: IV 100.0 100 65 Cefepime 1 gm In Sodium 50.0 50 Chloride 0.9% 50 ml @ 12. 5 mls/hr IVPB DAILY [facility] Rx#:[id number] DAPTOmycin 300 mg In 50 Sodium Chloride 0.9% 50 ml @ 100 mls/hr IVPB Q48H [facility] Rx#:[id number] Valproate Sodium 1,000 mg 50 50 15 In Sodium Chloride 0.9% 50 ml @ 50 mls/hr IVPB BID [facility] Rx#:[id number] Intake, IV Titration 50 Amount Valproate Sodium 1,000 mg 50 In Sodium Chloride 0.9% 50 ml @ 50 mls/hr IVPB BID [facility] Rx#:[id number] Output: Urine 0 0 0 Other: # Voids 1 # Bowel Movements 1 - Exam GENERAL: Revealed a 53-year-old female, encephalopathic, not in any distress. HEENT: PERRLA, EOMI, anicteric, moist mucous membranes. CARDIOVASCULAR: Normal S1 and S2, no S3 gallop. PULMONARY: Symmetrical chest expansion clear throughout no crackles or rhonchi or wheezes ABDOMEN: Soft, nontender, nondistended, normoactive bowel sounds. No palpable organomegaly. MUSCULOSKELETAL: No deformity and no limitation in range of motion. EXTREMITIES: No clubbing edema or cyanosis NEUROLOGICAL: Patient is encephalopathic, does not follow any instructions, intermittently noted to have tremors of the face mostly. SKIN: No rashes. no petechiae. - Labs CBC & Chem 7: 01/16/23 03:32 01/16/23 03:32 Labs: Abnormal Lab Results - Last 24 Hours (Table) 01/16/23 01/16/23 Range/Units 03:32 03:32 RBC 3.32 L (3.80-5.40) m/uL Hgb 10.8 L (11.4-16.0) gm/dL Hct 32.4 L (34.0-46.0) % Plt Count 116 L (150-450) k/uL Lymphocytes # 0.9 L (1.0-4.8) k/uL Sodium 133 L (137-145) mmol/L Chloride 96 L (98-107) mmol/L Carbon Dioxide 17 L (22-30) mmol/L BUN 41 H (7-17) mg/dL Creatinine 8.01 H* (0.52-1.04) mg/dL Microbiology - Last 24 Hours (Table) 01/10/23 15:50 Urine Culture - Final Urine,Voided Enterococcus faecium VRE 01/10/23 17:30 Blood Culture - Final Blood Assessment and Plan Assessment: Impression: Acute hypoxic respiratory failure, possible healthcare acquired or associated pneumonia, remains on cefepime. Acute metabolic encephalopathy and possible anoxic encephalopathy and recurrent seizures. Remains on Keppra and Vimpat. Being followed by neurology. Seizure disorder Type 2 diabetes possible diabetic nephropathy End-stage renal disease on hemodialysis Essential hypertension with nephrosclerosis History of CVA Hypothyroidism GERD without esophagitis UTI secondary to VRE. Sepsis secondary to UTI recommendation: Continue present supportive care measures Continue cefepime and daptomycin Continue seizure meds as ordered by neurology on the case including Keppra and Vimpat Continue updrafts Continue GI and DVT prophylaxis Continue blood pressure medications including amlodipine and clonidine patches. Continue close monitoring of renal profile and keep on schedule/dialysis Continue close monitoring of sugars and address accordingly Advised to have a nasogastric tube for enteral feeding and to be able to address oral meds Still awaiting for potential bed at [facility] and possible transfer We will continue to follow Time with Patient: Less than 30
[2023-01-16 12:23] LABS: Glucose,Whole Blood 103 mg/dL (70-110)
[2023-01-16] MEDS: LORazepam 2 MG/ML INJ IV PRN (12:52)
--- NOTE | 2023-01-16 13:09 | P.PN ---
Subjective Patient is seen for follow-up for end-stage renal disease. Maintained on Monday vent is to Monday schedule. Patient was transferred to the ICU secondary to severe encephalopathy. Currently having an EEG done. Objective - Vital Signs Vital signs: Vital Signs Temp 99.1 F 01/16/23 12:00 Pulse 112 H 01/16/23 12:00 Resp 20 01/16/23 12:00 BP 179/88 01/16/23 12:00 Pulse Ox 100 01/16/23 12:00 FiO2 Intake & Output 01/15/23 01/16/23 01/16/23 18:59 06:59 18:59 Intake Total 100.0 100 115 Output Total 0 0 0 Balance 100.0 100 115 Weight 69.2 kg Intake: IV 100.0 100 65 Cefepime 1 gm In Sodium 50.0 50 Chloride 0.9% 50 ml @ 12. 5 mls/hr IVPB DAILY [facility] Rx#:[id number] DAPTOmycin 300 mg In 50 Sodium Chloride 0.9% 50 ml @ 100 mls/hr IVPB Q48H [facility] Rx#:[id number] Valproate Sodium 1,000 mg 50 50 15 In Sodium Chloride 0.9% 50 ml @ 50 mls/hr IVPB BID [facility] Rx#:[id number] Intake, IV Titration 50 Amount Valproate Sodium 1,000 mg 50 In Sodium Chloride 0.9% 50 ml @ 50 mls/hr IVPB BID [facility] Rx#:[id number] Output: Urine 0 0 0 Other: # Voids 1 # Bowel Movements 1 - Exam Patient is obtunded Examination of the heart S1 and S2 Examination of the lungs bilateral breath sounds are heard Abdomen is soft nontender Examination lower extremities shows no significant edema - Labs CBC & Chem 7: 01/16/23 03:32 01/16/23 03:32 Labs: Abnormal Lab Results - Last 24 Hours (Table) 01/16/23 01/16/23 Range/Units 03:32 03:32 RBC 3.32 L (3.80-5.40) m/uL Hgb 10.8 L (11.4-16.0) gm/dL Hct 32.4 L (34.0-46.0) % Plt Count 116 L (150-450) k/uL Lymphocytes # 0.9 L (1.0-4.8) k/uL Sodium 133 L (137-145) mmol/L Chloride 96 L (98-107) mmol/L Carbon Dioxide 17 L (22-30) mmol/L BUN 41 H (7-17) mg/dL Creatinine 8.01 H* (0.52-1.04) mg/dL Microbiology - Last 24 Hours (Table) 01/10/23 15:50 Urine Culture - Final Urine,Voided Enterococcus faecium VRE 01/10/23 17:30 Blood Culture - Final Blood Assessment and Plan Assessment: 1. End-stage renal disease on hemodialysis on a Monday vent is a Monday schedule 2. Severe encephalopathy/obtundation being followed by neurology with plans for possible transfer for continuous EEG. 3. History of seizures 4. CK D mineral bone disorder 5. Acute hypoxic respiratory failure from pneumonia maintained on antibiotics. Respiratory status has improved Plan: Hemodialysis today.
[2023-01-16] MEDS: SEVELAMER 800 MG TAB PO SCH ×2 (13:40→21:11)
[2023-01-16] MEDS: amLODIPine 5 MG TAB PO SCH (13:40)
[2023-01-16] MEDS: METOPROLOL TARTRATE 25 MG TAB PO SCH ×2 (13:41→21:19)
[2023-01-16] MEDS: VALPROATE SODIUM 1,000 MG in SODIUM CHLORIDE 0.9% 50 ML IVPB SCH ×2 (13:41→21:19)
[2023-01-16] MEDS: levETIRAcetam 500 MG TAB PO SCH (14:11)
[2023-01-16 15:07] VITALS: BMI 23.8
--- NOTE | 2023-01-16 16:25 | XR ---
EXAMINATION TYPE: XR abdomen 1V DATE OF EXAM: 01/16/2023 COMPARISON: None INDICATION: NG tube placement TECHNIQUE: Single view abdomen supine view FINDINGS: Nonspecific bowel gas pattern present. There is present within the colon as well as small bowel. Dila chuck loops of bowel are not evident. No mass effect is evident. Psoas margins are normal. No organomegaly is present. There is placement of a nasogastric tube with the tip in the left upper quadrant of the abdomen. IMPRESSION: 1. Nonspecific abdomen. 2. Nasal gastric tube tip in left upper quadrant abdomen.
[2023-01-16 16:33] LABS: Glucose,Whole Blood 92 mg/dL (70-110)
--- NOTE | 2023-01-16 17:22 | P.DS ---
Providers Date of admission: 01/10/23 18:09 Attending physician: Mehrdad Mohan Consults: 01/10/23 16:08 Consult Physician Routine Consulting Provider: Darlin Reynoso Consult Reason/Comments: PNEUMONIA Do you want consulting provider notified?: Yes 01/10/23 16:09 Consult Physician Routine Consulting Provider: Kacey Parry Consult Reason/Comments: sepsis Do you want consulting provider notified?: Yes Consult Physician Routine Consulting Provider: Urszula Ludwig Consult Reason/Comments: crf Do you want consulting provider notified?: Yes 01/11/23 07:21 Consult Physician Routine Consulting Provider: Cristhian Luevano Consult Reason/Comments: AMS and history of seizure disorder Do you want consulting provider notified?: Yes 01/11/23 14:57 Consult Physician Urgent Consulting Provider: Devyn Jones Consult Reason/Comments: evaluate for medical decision making capacity Do you want consulting provider notified?: Yes Primary care physician: Gabriel Taylor Hospital Course: -Progressively worsening mental status sensation, became more unresponsive tended over the last 2 days, suspected combination of metabolic/toxic encephalopathy need to rule out persistent or recurrent seizure contributing to her worsening mentation -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 Patient is a known history of seizure, for example 3 years ago she was on Keppra 750 mg twice daily and Vimpat 100 mg twice daily, patient had multiple admissions to this facility over the years for breakthrough seizure and currently on 4 seizure medications, Which are Keppra 500 mg twice a day, besides after hemodialysis 500 mg extra dose. Vimpat 150 mg twice a day at home. Also she is on Depakote 500 mg twice a day and after dialysis extra dose of 500 mg Leal also she is on Zonegran 100 mg 3 times a day at home. She lives at [facility]. Recently documented patient has confusion at baseline but follow simple commands, her mentation's 3 years ago or significantly better and more interactive. She was sent from [facility] for altered mental status on 01/10. On admission left lower lobe pneumonia, UTI and a breakthrough seizure were suspected. Patient was placed on cefepime, she was evaluated by neurologist. EEG done on 01/11 showed [id number] encephalopathy. Epileptiform discharges are over the left central parietal region, which increases risk for seizure. Otherwise, no seizure noted during the EEG study. Neurologist recommended patient to start epidiolex as outpatient however over the last 2 days patient developed worsening mentation and she become unresponsive with some twitching noticed on her right side because of this further risk procedure is suspected and Ativan 1 is provided and Depakote dose increase to 1000 mg and Vimpat to 150 milligrams and patient was sent to the ICU for close monitoring However over, however patient does not compromise her airway and patient mona ngraded to the general medical floor (she is in the ICU as an overflow for bed availability). Because of worsening mentation neurology service recommended to transfer the patient to [facility] level of care to [facility] where continuous EEG monitoring could be provided as it is not available on this facility. She had CT of the brain which was unremarkable. Ohcalcitonin elevated 1.4. Chest x-ray showing improvement. At baseline patient patient documented to be confused and follow simple commands. And with her there was court hearing to obtaining guardianship. Psychiatrist service was consulted in order facilitate to assess her capacity , he found her to have Them make decision and he documented (Upon evaluation by this provider, patient is denying any suicidal or homicidal ideation, intention, and/or plan. She is alert and oriented to person and time however not to the specific date or location. Despite this, the patient does acknowledge that she does receive dialysis for end-stage renal disease. The patient does express explicitly to this provider that she wishes to continue treatment. She also reports that if she is not to continue dialysis, she risks further deterioration and . ) Patient remains currently lying in bed does not respond to verbal or tactile stimuli, does not follow commands , nonverbal. NG tube has to be placed to assist her with oral medication. Patient undergoing end-stage renal disease hemodialysis. She has a history of CVA and left hemiparesis. Transfer patient to tertiary care center at [facility] as recommended by neurologist. The transfer team and they kindly agreed to take the patient contacted and he is already agreed for the patient to be transferred I spoke with Dr. Robison from administration team at [facility] , Dr. Martell MICU fellow and then with the hospitalist who currently accepted the patient pending the difficulty again. Patient is stable for transfer and guarded prognosis. Physical exam -Gen: patient is able to open eyes spontaneously. Lethargic tired, does not follow commands, does not answer questions. CVS: S1-S2, RRR, no murmur Lungs: B/L CTA, no wheezing Abdomen: soft, no distention, no tenderness, positive bowel sounds Extremity: no leg edema or induration Time spent more than 35 minutes Patient Condition at Discharge: Fair Plan - Discharge Summary Discharge Rx Participant: No New Discharge Prescriptions: No Action Atorvastatin [Lipitor] 40 mg PO HS@2100 Sevelamer [Renvela] 1,600 mg PO BID@0900,2100 levETIRAcetam [Keppra] 500 mg PO BID@0900,1999 Divalproex Sodium [Depakote] 500 mg PO MOWEFR@1600 Metoprolol Tartrate [Lopressor] 25 mg PO MOWEFR@2100 Lacosamide [Vimpat] 150 mg PO MOWEFR@1600 #4 tab Ondansetron [Zofran] 4 mg PO Q8H PRN PRN Reason: Nausea Lacosamide [Vimpat] 150 mg PO BID@0900,2100 amLODIPine [Norvasc] 5 mg PO DAILY@0900 Dulaglutide [Trulicity] 3 mg SQ WE@0900 Zonisamide [Zonegran] 100 mg PO TID@0600,1500,2200 levETIRAcetam [Keppra] 500 mg PO MOWEFR@1500 Divalproex Sodium [Depakote] 500 mg PO BID@0900,2100 icosapent ethyL [Icosapent Ethyl] 1 gm PO BID@0900,2100 Metoprolol Tartrate [Lopressor] 25 mg PO SUTUTHSA@0900,2099 Famotidine [Pepcid] 20 mg PO DAILY@0600 Discharge Medication List Atorvastatin [Lipitor] 40 mg PO HS@2100 03/23/21 [History] Dulaglutide [Trulicity] 3 mg SQ WE@0900 03/23/21 [History] Sevelamer [Renvela] 1,600 mg PO BID@0900,209904/29/22 [History] Zonisamide [Zonegran] 100 mg PO TID@0600,1500,2200 09/10/22 [History] levETIRAcetam [Keppra] 500 mg PO BID@0900,199909/10/22 [History] levETIRAcetam [Keppra] 500 mg PO MOWEFR@1500 09/10/22 [History] Divalproex Sodium [Depakote] 500 mg PO BID@0900,209909/12/22 [History] Divalproex Sodium [Depakote] 500 mg PO MOWEFR@1600 09/12/22 [History] Metoprolol Tartrate [Lopressor] 25 mg PO MOWEFR@209911/13/22 [History] Metoprolol Tartrate [Lopressor] 25 mg PO SUTUTHSA@0900,209911/21/22 [History] icosapent ethyL [Icosapent Ethyl] 1 gm PO BID@0900,209911/21/22 [History] Lacosamide [Vimpat] 150 mg PO MOWEFR@1600 #4 tab 11/22/22 [Rx] Famotidine [Pepcid] 20 mg PO DAILY@0612/12/22 [History] Lacosamide [Vimpat] 150 mg PO BID@0900,209912/12/22 [History] Ondansetron [Zofran] 4 mg PO Q8H PRN 12/12/22 [History] amLODIPine [Norvasc] 5 mg PO DAILY@0900 01/10/23 [History] Follow up Appointment(s)/Referral(s): Gabriel Taylor MD [Primary Care Provider] - 1-2 days [facility], [NON-STAFF] - 1 Week Activity/Diet/Wound Care/Special Instructions: we recommend you follow up with neurologist as outpatinet, please Consider start on Epidiolex as outpatient since had medical refractory epilepsy and that was recommended on prior visit.
[2023-01-16] MEDS: LACOSAMIDE 150 MG TABLET PO SCH (18:22)
--- NOTE | 2023-01-16 19:22 | P.PN ---
Subjective Progress Note Date: 01/16/23 Patient is a 53-year-old female, well known to neurology service, with history of epilepsy on 4 antiepileptic medications, VNS, who presented to the hospital with confusion. Patient has primary generalized epilepsy. Patient also has an acute UTI, and pneumonia, was still has confusion and right arm tremor. Patient has been referred for transfer to higher level of care for long-term EEG monitoring. Patient is accepted at [facility]. Patient at present is still obtunded, lethargic, does not follow commands. Patient is very groggy. Some other workup during his hospital visit consisted of: Ammonia is 11. Her Calcium magnesium sodium liver function is within normal limits. Urine drug seeing is not detected. Urine culture is Group D enterococcus. Routine EEG is abnormal. The back slowing suggestive of mild to moderate encephalopathy. Epileptiform discharges over the left central parietal region increases risk for seizure. Otherwise no seizure noted during the study. Local correlation recommended CT head is reported as age related atrophic and chronic small vessel ischemic change without acute intracranial process seen at this time. I personally reviewed CT head and there is not acute or subacute stroke. There is old left thalamus/basal ganglia old stroke. Objective - Vital Signs Vital signs: Vital Signs Temp 99.1 F 01/16/23 12:00 Pulse 115 H 01/16/23 14:00 Resp 20 01/16/23 14:00 BP 149/89 01/16/23 14:00 Pulse Ox 95 01/16/23 14:00 FiO2 Intake & Output 01/15/23 01/16/23 01/16/23 18:59 06:59 18:59 Intake Total 100.0 100 115 Output Total 0 0 0 Balance 100.0 100 115 Weight 69.2 kg 69.2 kg Intake: IV 100.0 100 65 Cefepime 1 gm In Sodium 50.0 50 Chloride 0.9% 50 ml @ 12. 5 mls/hr IVPB DAILY [facility] Rx#:[id number] DAPTOmycin 300 mg In 50 Sodium Chloride 0.9% 50 ml @ 100 mls/hr IVPB Q48H [facility] Rx#:[id number] Valproate Sodium 1,000 mg 50 50 15 In Sodium Chloride 0.9% 50 ml @ 50 mls/hr IVPB BID [facility] Rx#:[id number] Intake, IV Titration 50 Amount Valproate Sodium 1,000 mg 50 In Sodium Chloride 0.9% 50 ml @ 50 mls/hr IVPB BID [facility] Rx#:[id number] Output: Urine 0 0 0 Other: # Voids 1 # Bowel Movements 1 - Exam Patient is laying in the bed, she is very lethargic, groggy. Her eyes are closed. No obvious seizure activity noted. Tone is equal bilaterally. Patient does withdraw her lower limbs to painful stimuli bilaterally. In the upper limbs, she moans with painful stimuli. Pupils are equal, round and reacting. Oculocephalics are inhibited. - Labs CBC & Chem 7: 01/17/23 05:57 01/17/23 05:57 Labs: Abnormal Lab Results - Last 24 Hours (Table) 01/16/23 01/16/23 Range/Units 03:32 03:32 RBC 3.32 L (3.80-5.40) m/uL Hgb 10.8 L (11.4-16.0) gm/dL Hct 32.4 L (34.0-46.0) % Plt Count 116 L (150-450) k/uL Lymphocytes # 0.9 L (1.0-4.8) k/uL Sodium 133 L (137-145) mmol/L Chloride 96 L (98-107) mmol/L Carbon Dioxide 17 L (22-30) mmol/L BUN 41 H (7-17) mg/dL Creatinine 8.01 H* (0.52-1.04) mg/dL Microbiology - Last 24 Hours (Table) 01/10/23 15:50 Urine Culture - Final Urine,Voided Enterococcus faecium VRE 01/10/23 17:30 Blood Culture - Final Blood Assessment and Plan Assessment: This is a 53-year-old woman with history of medically refractory epilepsy on VNS was has multiple admission to our facility and other facilities for confusion with breakthrough seizures. -Altered mental status and suspect had breakthrough seizure-- No seizure on EEG but has discharges over left parietal/central region--has worsening mentation and has tremor--concern for seizure and possible status. Her seizure could also be provoked due to underlying UTI and pneumonia. Patient is on 4 antiepileptic drugs, on VNS. Her medication regimen was increased and was given Ativan during this admission. -Encephalopathy due to concerns for seizure as well, as sepsis from UTI and pneumonia. 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 She has multiple admissions to our facility as well as outside facility. She had a prolonged EEG in our facility and was suggestive of primary generalized epilepsy -Acute UTI -Acute hypoxic respiratory failure secondary due to possibly healthcare associated pneumonia. -Left ICA stenosis of 75% stenosis on CTA but discrepancy on carotid duplex and not significant -History of stroke with residual left hemiparesis -Diabetes mellitus -End-stage renal disease on dialysis -Hypertension Plan: -Continue home antiepileptic of Keppra 500 mg 1 tablet twice a day with additional 500 postdialysis, Vimpat 150 mg 2 times a day with additional dose postdialysis, Zonegran 100 mg a tablet [address] Luevano has increased Depakote 500 mg 1 tablet twice a day to 1000mg bid since concerned for continued seizures with loading dose of Depakote 1000mg. Her Depakote level was subtherapeutic and unsure if due to low dose. Will also give her one time Ativan 1mg now. -Patient is being transfered for usp EEG (was accepted to [facility]). -Pending results of 2.5 hour EEG. Completed today. Levels: Keppra 54.6 (normal 3-60), Depakote: 39.7 (normal 50-120). Unsure if Depakote is subtherapeutic since low dose vs missed medicaiton. Repeat Valproic acid is 53.0. Pending vimpat level to make sure not subtherapeutic. Routine EEG showed left central/parietal epileptiform discharges which can incre ase risk for seizure. No seizure noted during this study.. She had multiple EEG in the past and prolonged EEG in our facility and was felt primary generalized epilepsy. On seizure precaution and pads. On Ativan 1mg every 4 hours PRN for seizures. Recommend the patient to follow-up with epileptologist as outpatient and recommend EMU. She had multiple admission to our facility and outside facilit y. She is on 4 antieplileptic drugs and continues to have seizures. Consider start on Epidiolex as outpatient since had medical refractory epilepsy and that was recommended on prior visits. Will defer the rest of medical management to her primary and other specialist. Again, patient is pending to be transferred to tertiary center for usp EEG. The plan is discussed with her nurse. Addendum 9:46 PM: Dr. Lazo called and gave preliminary report of EEG showing diffuse triphasic waves, consistent with severe metabolic encephalopathy. No status epilepticus seen. Full report to follow.
--- NOTE | 2023-01-16 20:05 | P.PN ---
Subjective Progress Note Date: 01/15/23 Principal diagnosis: Pneumonia Patient is a 53-year-old female with a past medical history significant for end-stage renal disease on hemodialysis through the left upper arm fistula and care home resident patient has been sent to the ER for evaluation of mental status changes, patient just x-ray with left lower lobe infiltrate concerning for pneumonia. On today's evaluation that is 12/23/2022, the patient remains to be afebrile the patient has been moved out of the ICU because of concern for seizure activity, patient is currently breathing comfortably on 2 L nasal oxygen no vomiting or diarrhea has been reported Objective - Vital Signs Vital signs: Vital Signs Temp 98.6 F 01/15/23 16:00 Pulse 99 01/15/23 16:00 Resp 15 01/15/23 16:00 BP 170/93 01/15/23 16:00 Pulse Ox 97 01/15/23 16:00 FiO2 Intake & Output 01/14/23 01/15/23 01/15/23 18:59 06:59 18:59 Intake Total 50 100.0 Output Total 0 0 Balance 50 100.0 Weight 69.7 kg Intake: IV 50 100.0 Cefepime 1 gm In Sodium 50.0 Chloride 0.9% 50 ml @ 12. 5 mls/hr IVPB DAILY [facility] Rx#:[id number] Valproate Sodium 1,000 mg 50 50 In Sodium Chloride 0.9% 50 ml @ 50 mls/hr IVPB BID [facility] Rx#:[id number] Output: Urine 0 0 Other: Voiding Method Diaper Diaper # Bowel Movements 1 1 - Exam GENERAL DESCRIPTION: Middle-age female up in the chair in no distress RESPIRATORY SYSTEM: Unlabored breathing , decreased breath sounds at bases HEART: S1 S2 regular rate and rhythm , ABDOMEN: Soft , no tenderness EXTREMITIES: No edema feet - Labs CBC & Chem 7: 01/16/23 03:32 01/16/23 03:32 Labs: Abnormal Lab Results - Last 24 Hours (Table) 01/14/23 01/15/23 01/15/23 Range/Units 21:15 04:23 04:23 RBC 2.98 L (3.80-5.40) m/uL Hgb 9.8 L (11.4-16.0) gm/dL Hct 28.5 L (34.0-46.0) % Plt Count 106 L (150-450) k/uL ABG pO2 77 L (83-108) mmHg ABG HCO3 29 H (21-25) mmol/L ABG Total CO2 30 H (19-24) mmol/L Sodium 133 L (137-145) mmol/L Chloride 96 L (98-107) mmol/L BUN 26 H (7-17) mg/dL Creatinine 6.41 H (0.52-1.04) mg/dL Delta Bilirubin 0.4 H (0.0-0.2) mg/dL Total Protein 6.0 L (6.3-8.2) g/dL Albumin 3.2 L (3.5-5.0) g/dL Microbiology - Last 24 Hours (Table) 01/10/23 18:15 Blood Culture - Preliminary Blood Assessment and Plan (1) Pneumonia Current Visit: Yes Status: Acute Code(s): J18.9 - PNEUMONIA, UNSPECIFIED ORGANISM SNOMED Code(s): 000630918 Plan: 1patient presented to hospital with mental status changes decreased level of responsiveness with evidence of left lower lobe infiltrate concerning for possible pneumonia, patient however did not have any fever or elevated white count, underlying pneumonia less likely but not excluded, patient also have a positive UA however this patient do have a history of end-stage renal disease on dialysis with no clinical significance 2-penicillin allergy of limit the number of antibiotics safe to use 3-patient did have elevated procalcitonin level of 1.44 4Patient is currently afebrile respiratory status is stable blood cultures are so far negative, patient to continue with the cefepime and will monitor clinical course closely 5-patient urine culture growing Enterococcus however the patient hardly makes any urine and urine was not significantly positive possible colonization , no need for daptomycin Time with Patient: Less than 30
--- NOTE | 2023-01-16 20:07 | P.PN ---
Subjective Progress Note Date: 01/16/23 Principal diagnosis: Pneumonia Patient is a 53-year-old female with a past medical history significant for end-stage renal disease on hemodialysis through the left upper arm fistula and half-way resident patient has been sent to the ER for evaluation of mental status changes, patient just x-ray with left lower lobe infiltrate concerning for pneumonia. On today's evaluation that is 01/16/2023, the patient continues to be afebrile the patient is lethargic undergoing EEG and unable to provide any history, patient is currently breathing comfortably on 2 L nasal oxygen no vomiting or diarrhea has been reported Objective - Vital Signs Vital signs: Vital Signs Temp 98.7 F 01/16/23 08:00 Pulse 100 01/16/23 09:00 Resp 17 01/16/23 09:00 BP 184/98 01/16/23 09:00 Pulse Ox 97 01/16/23 09:00 FiO2 Intake & Output 01/15/23 01/16/23 01/16/23 18:59 06:59 18:59 Intake Total 100.0 100 115 Output Total 0 0 0 Balance 100.0 100 115 Weight 69.2 kg Intake: IV 100.0 100 65 Cefepime 1 gm In Sodium 50.0 50 Chloride 0.9% 50 ml @ 12. 5 mls/hr IVPB DAILY [facility] Rx#:[id number] DAPTOmycin 300 mg In 50 Sodium Chloride 0.9% 50 ml @ 100 mls/hr IVPB Q48H [facility] Rx#:[id number] Valproate Sodium 1,000 mg 50 50 15 In Sodium Chloride 0.9% 50 ml @ 50 mls/hr IVPB BID [facility] Rx#:[id number] Intake, IV Titration 50 Amount Valproate Sodium 1,000 mg 50 In Sodium Chloride 0.9% 50 ml @ 50 mls/hr IVPB BID [facility] Rx#:[id number] Output: Urine 0 0 0 Other: # Voids 1 # Bowel Movements 1 - Exam GENERAL DESCRIPTION: Middle-age female up in the chair in no distress RESPIRATORY SYSTEM: Unlabored breathing , decreased breath sounds at bases HEART: S1 S2 regular rate and rhythm , ABDOMEN: Soft , no tenderness EXTREMITIES: No edema feet - Labs CBC & Chem 7: 01/16/23 03:32 01/16/23 03:32 Labs: Abnormal Lab Results - Last 24 Hours (Table) 01/16/23 01/16/23 Range/Units 03:32 03:32 RBC 3.32 L (3.80-5.40) m/uL Hgb 10.8 L (11.4-16.0) gm/dL Hct 32.4 L (34.0-46.0) % Plt Count 116 L (150-450) k/uL Lymphocytes # 0.9 L (1.0-4.8) k/uL Sodium 133 L (137-145) mmol/L Chloride 96 L (98-107) mmol/L Carbon Dioxide 17 L (22-30) mmol/L BUN 41 H (7-17) mg/dL Creatinine 8.01 H* (0.52-1.04) mg/dL Microbiology - Last 24 Hours (Table) 01/10/23 15:50 Urine Culture - Final Urine,Voided Enterococcus faecium VRE 01/10/23 17:30 Blood Culture - Final Blood Assessment and Plan (1) Pneumonia Current Visit: Yes Status: Acute Code(s): J18.9 - PNEUMONIA, UNSPECIFIED ORGANISM SNOMED Code(s): 919135436 Plan: 1patient presented to hospital with mental status changes decreased level of responsiveness with evidence of left lower lobe infiltrate concerning for p ossible pneumonia, patient however did not have any fever or elevated white count, underlying pneumonia less likely but not excluded, patient also have a positive UA however this patient do have a history of end-stage renal disease on dialysis with no clinical significance 2-penicillin allergy of limit the number of antibiotics safe to use 3-patient did have elevated procalcitonin level of 1.44 4patient urine culture growing Enterococcus however the patient hardly makes any urine and urine was not significantly positive possible colonization , no need for daptomycin 5-Patient is afebrile respiratory status is stable blood cultures are so far negative, patient to continue with the cefepime and continue supportive care Time with Patient: Less than 30
[2023-01-16 20:42] LABS: Glucose,Whole Blood 131 mg/dL (70-110)
--- NOTE | 2023-01-16 21:11 | P.EN ---
I spoke with [facility] in [place] with Dr. Roca from charge staff and Dr. Dr. Hogue (!spe) from [facility] Fellow , and then talked to the hospitalist Dr. ODELL (accepting physician ) and they accepted the patient for transfer, however they still have bed availability situation, they told me they have 25 holding the patient in the emergency room and more than 20 patient on their waiting list to be transferred to medical floor.
[2023-01-16] MEDS: ATORVASTATIN 40 MG TAB PO SCH (21:18)
[2023-01-17 00:24] LABS: Glucose,Whole Blood 163 mg/dL (70-110)
[2023-01-17] MEDS: INSULIN ASPART (NovoLOG) 100 UNIT/ML VIAL SQ SCH ×3 (00:36→11:51)
[2023-01-17 06:26] LABS: Anion Gap 13 mmol/L; Blood Urea Nitrogen 36 mg/dL (7-17); Calcium 9.4 mg/dL (8.4-10.2); Carbon Dioxide 25 mmol/L (22-30); Chloride 94 mmol/L (98-107); Glucose 138 mg/dL (74-99); Sodium 132 mmol/L (137-145)
[2023-01-17 06:30] LABS: Basophils % (A) 0 %; Eosinophils % (A) 1 %; HCT 31.1 % (34.0-46.0); HGB 10.7 gm/dL (11.4-16.0); Lymphocytes # (A) 1.8 k/uL (1.0-4.8); Lymphocytes % (A) 24 %; MCH 31.5 pg (25.0-35.0); MCHC 34.4 g/dL (31.0-37.0); Mean Platelet Volume 11.3; Monocytes # (A) 0.6 k/uL (0-1.0); Monocytes % (A) 8 %; Neutrophils # (A) 4.9 k/uL (1.3-7.7); Neutrophils % (A) 65 %; Platelet Count 135 k/uL (150-450); RDW 13.8 % (11.5-15.5); WBC 7.6 k/uL (3.8-10.6)
[2023-01-17 06:31] LABS: Glucose,Whole Blood 142 mg/dL (70-110)
[2023-01-17 06:32] LABS: African American GFR (CKD) 11 (>60 ml/min/1.73 sqM); Non-African American GFR(CKD) 9 (>60 ml/min/1.73 sqM)
[2023-01-17 06:33] LABS: Potassium 4.9 mmol/L (3.5-5.1)
[2023-01-17 06:34] LABS: MCV 91.5 fL (80.0-100.0)
[2023-01-17] MEDS: ZONISAMIDE 100 MG CAP PO SCH ×2 (07:00→16:24)
--- NOTE | 2023-01-17 08:52 | XR ---
EXAMINATION TYPE: XR chest 1V portable DATE OF EXAM: 01/17/2023 7:31 AM COMPARISON: Chest radiographs from 01/11/2023 TECHNIQUE: XR chest 1V portable Frontal view of the chest. CLINICAL INDICATION:Female, 53 years old with history of increased o2 demand; FINDINGS: Lungs/Pleura: There is no evidence of pleural effusion, focal consolidation, or pneumothorax. Pulmonary vascularity: Unremarkable. Heart/mediastinum: Cardiomediastinal silhouette is unremarkable. A loop recorder projects over the le ft thorax over the heart. Musculoskeletal: No acute osseous pathology. Other findings: Electronic device with lead extending superiorly. Lines/Tubes: Nasogastric tube with its distal tip and side-port projecting under the diaphragm and projecting over the gastric lumen. IMPRESSION: 1. No acute cardiopulmonary disease/process. 2. Nasogastric tube with its distal tip and side-port projecting under the diaphragm and projecting over the gastric lumen. 3.
[2023-01-17] MEDS: METOPROLOL TARTRATE 25 MG TAB PO SCH (08:57)
[2023-01-17] MEDS: amLODIPine 5 MG TAB PO SCH (08:57)
[2023-01-17] MEDS: HEPARIN SODIUM,PORCINE/PF 5,000 UNIT/0.5 ML SYRINGE SQ SCH (08:58)
[2023-01-17] MEDS: FAMOTIDINE 20 MG/2 ML VIAL IV SCH (08:58)
[2023-01-17] MEDS: SEVELAMER 800 MG TAB PO SCH (08:58)
[2023-01-17] MEDS: Lacosamide IV (ages 17+ yrs) 200 MG/20 ML ML IVP SCH (08:58)
[2023-01-17] MEDS: NON FORMULARY DRUG (Icosapent Ethyl [Icosapent Ethyl] 1 GM Capsule) PO SCH (08:58)
[2023-01-17] MEDS: CEFEPIME 1 GM in SODIUM CHLORIDE 0.9% 50 ML IVPB SCH (08:58)
[2023-01-17] MEDS: VALPROATE SODIUM 1,000 MG in SODIUM CHLORIDE 0.9% 50 ML IVPB SCH (09:01)
[2023-01-17] MEDS: levETIRAcetam IV 500 MG/5 ML VIAL IVP SCH (09:01)
--- NOTE | 2023-01-17 09:15 | EEG ---
ELECTROENCEPHALOGRAM REPORT TECHNIQUE: This is a report from a prolonged 2-1/2 hour inpatient digital video EEG performed using the 10/20 international electrode placement system. HISTORY: Encephalopathy, seizure. OTHER HISTORY: Includes diabetes, hyperlipidemia, thyroid disorder, bipolar disorder. CURRENT MEDICATIONS: 1. Norvasc. 2. Lipitor. 3. Depakote. 4. Pepcid. 5. Insulin. 6. Ativan. 7. Keppra. 8. Lopressor. 9. Trulicity. 10.Zonegran. And others. FINDINGS: Recording start time: 01/16/2023 at 10:24 a.m. Recording end time: 01/16/2023 at 12:55 p.m. EVENTS: During this prolonged 2-1/2 hour video EEG recording, no clinical or electrographic seizures were recorded. BACKGROUND: Background frequencies were seen in the poorly modulated 2 to 4 Hz range. ACTIVATION: Hyperventilation: Not performed. PHOTIC STIMULATION: Not performed. SLEEP: Distinctive sleep stages not seen. ABNORMALITIES: 1. The most prominent abnormality in this recording was frequent high amplitude triphasic waves at times with a frequency of 1 to 2 Hz. 2. Frequent frontally predominant delta range slowing was seen. 3. There were a few sections where less triphasic waves were seen and over the more anterior regions, diffuse 3 to 5 Hz slow wave activity was seen. IMPRESSION: Abnormal 2.5 hour video EEG. No clinical or electrographic seizures were recorded. No epileptiform activity was present. The triphasic waves mentioned above are not epileptiform in nature. Triphasic waves can be seen in the setting of a metabolic encephalopathy. The frontally predominant delta range slowing as well as the diffuse theta delta range slowing mentioned above is not epileptiform in nature. In combination, these findings indicate moderate to severe diffuse cerebral dysfunction as may be seen in a toxometabolic encephalopathy. Per nuclear medicine technician annotation, during the course of the study, the patient was noted to be quite hypertensive and hypoxic. These findings were called to the consulting neurologist at 2130 on 01/16/2023. MMODL / IJN: [id number] /
[2023-01-17] MEDS: IPRATROPIUM-ALBUTEROL 3 ML NEB INHALATION SCH ×2 (09:55→16:05)
--- NOTE | 2023-01-17 10:51 | P.PN ---
Subjective Patient is seen for follow-up for end-stage renal disease. Maintained on Monday, Monday schedule. Patient was transferred to the ICU secondary to severe encephalopathy. Patient remains obtunded. NG tube in place Plans for transfer to [facility] for long-term EEG. Objective - Vital Signs Vital signs: Vital Signs Temp 98.5 F 01/17/23 08:00 Pulse 88 01/17/23 08:00 Resp 16 01/17/23 08:00 BP 114/54 01/17/23 08:00 Pulse Ox 100 01/17/23 08:00 FiO2 Intake & Output 01/16/23 01/17/23 01/17/23 18:59 06:59 18:59 Intake Total 615 70 Output Total 2304 0 0 Balance -1689 70 0 Weight 69.2 kg 67.7 kg Intake: IV 65 70 0.9 @ KVO 20 Cefepime 1 gm In Sodium 50 Chloride 0.9% 50 ml @ 12. 5 mls/hr IVPB DAILY [facility] Rx#:[id number] Valproate Sodium 1,000 mg 15 50 In Sodium Chloride 0.9% 50 ml @ 50 mls/hr IVPB BID [facility] Rx#:[id number] Intake, IV Titration 50 Amount Valproate Sodium 1,000 mg 50 In Sodium Chloride 0.9% 50 ml @ 50 mls/hr IVPB BID [facility] Rx#:[id number] Hemodialysis 500 Output: Urine 0 0 0 Hemodialysis 2304 Other: # Voids 1 # Bowel Movements 1 1 - Exam Patient is obtunded NG tube in place Examination of the heart S1 and S2 Examination of the lungs bilateral breath sounds are heard Abdomen is soft nontender Examination lower extremities shows no significant edema - Labs CBC & Chem 7: 01/17/23 05:57 01/17/23 05:57 Labs: Abnormal Lab Results - Last 24 Hours (Table) 01/16/23 01/17/23 01/17/23 Range/Units 20:41 00:22 05:57 RBC 3.40 L (3.80-5.40) m/uL Hgb 10.7 L (11.4-16.0) gm/dL Hct 31.1 L (34.0-46.0) % Plt Count 135 L (150-450) k/uL Sodium (137-145) mmol/L Chloride (98-107) mmol/L BUN (7-17) mg/dL Creatinine (0.52-1.04) mg/dL Glucose (74-99) mg/dL POC Glucose (mg/dL) 131 H 163 H (70-110) mg/dL 01/17/23 01/17/23 Range/Units 05:57 06:30 RBC (3.80-5.40) m/uL Hgb (11.4-16.0) gm/dL Hct (34.0-46.0) % Plt Count (150-450) k/uL Sodium 132 L (137-145) mmol/L Chloride 94 L (98-107) mmol/L BUN 36 H (7-17) mg/dL Creatinine 4.93 H (0.52-1.04) mg/dL Glucose 138 H (74-99) mg/dL POC Glucose (mg/dL) 142 H (70-110) mg/dL Microbiology - Last 24 Hours (Table) 01/10/23 18:15 Blood Culture - Final Blood 01/10/23 15:50 Urine Culture - Final Urine,Voided Enterococcus faecium VRE Assessment and Plan Assessment: 1. End-stage renal disease on hemodialysis on a Monday vent is a Monday schedule 2. Severe encephalopathy/obtundation being followed by neurology with plans for possible transfer for continuous EEG. 3. History of seizures 4. CK D mineral bone disorder 5. Acute hypoxic respiratory failure from pneumonia maintained on antibiotics. Respiratory status has improved Plan: Hemodialysis in a.m.
[2023-01-17 11:32] LABS: Glucose,Whole Blood 152 mg/dL (70-110)
--- NOTE | 2023-01-17 11:48 | P.PN ---
Subjective Progress Note Date: 01/17/23 Principal diagnosis: Pneumonia Patient is a 53-year-old female with a past medical history significant for end-stage renal disease on hemodialysis through the left upper arm fistula and detention resident patient has been sent to the ER for evaluation of mental status changes, patient just x-ray with left lower lobe infiltrate concerning for pneumonia. On today's evaluation that is 01/17/2023, the patient remains to be afebrile the patient is lethargic and unable to provide any history, patient is currently breathing comfortably on nasal oxygen no vomiting or diarrhea has been reported by the nursing staff patient is currently in the process of being transferred to [facility]. Objective - Vital Signs Vital signs: Vital Signs Temp 98.5 F 01/17/23 08:00 Pulse 88 01/17/23 08:00 Resp 16 01/17/23 08:00 BP 114/54 01/17/23 08:00 Pulse Ox 100 01/17/23 08:00 FiO2 Intake & Output 01/16/23 01/17/23 01/17/23 18:59 06:59 18:59 Intake Total 615 70 Output Total 2304 0 0 Balance -1689 70 0 Weight 69.2 kg 67.7 kg Intake: IV 65 70 0.9 @ KVO 20 Cefepime 1 gm In Sodium 50 Chloride 0.9% 50 ml @ 12. 5 mls/hr IVPB DAILY [facility] Rx#:[id number] Valproate Sodium 1,000 mg 15 50 In Sodium Chloride 0.9% 50 ml @ 50 mls/hr IVPB BID [facility] Rx#:[id number] Intake, IV Titration 50 Amount Valproate Sodium 1,000 mg 50 In Sodium Chloride 0.9% 50 ml @ 50 mls/hr IVPB BID [facility] Rx#:[id number] Hemodialysis 500 Output: Urine 0 0 0 Hemodialysis 2304 Other: # Voids 1 # Bowel Movements 1 1 - Exam GENERAL DESCRIPTION: Middle-age female up in the chair in no distress RESPIRATORY SYSTEM: Unlabored breathing , decreased breath sounds at bases HEART: S1 S2 regular rate and rhythm , ABDOMEN: Soft , no tenderness EXTREMITIES: No edema feet - Labs CBC & Chem 7: 01/17/23 05:57 01/17/23 05:57 Labs: Abnormal Lab Results - Last 24 Hours (Table) 01/16/23 01/17/23 01/17/23 Range/Units 20:41 00:22 05:57 RBC 3.40 L (3.80-5.40) m/uL Hgb 10.7 L (11.4-16.0) gm/dL Hct 31.1 L (34.0-46.0) % Plt Count 135 L (150-450) k/uL Sodium (137-145) mmol/L Chloride (98-107) mmol/L BUN (7-17) mg/dL Creatinine (0.52-1.04) mg/dL Glucose (74-99) mg/dL POC Glucose (mg/dL) 131 H 163 H (70-110) mg/dL 01/17/23 01/17/23 Range/Units 05:57 06:30 RBC (3.80-5.40) m/uL Hgb (11.4-16.0) gm/dL Hct (34.0-46.0) % Plt Count (150-450) k/uL Sodium 132 L (137-145) mmol/L Chloride 94 L (98-107) mmol/L BUN 36 H (7-17) mg/dL Creatinine 4.93 H (0.52-1.04) mg/dL Glucose 138 H (74-99) mg/dL POC Glucose (mg/dL) 142 H (70-110) mg/dL Microbiology - Last 24 Hours (Table) 01/10/23 18:15 Blood Culture - Final Blood 01/10/23 15:50 Urine Culture - Final Urine,Voided Enterococcus faecium VRE Assessment and Plan (1) Pneumonia Current Visit: Yes Status: Acute Code(s): J18.9 - PNEUMONIA, UNSPECIFIED ORGANISM SNOMED Code(s): 203144394 Plan: 1patient presented to hospital with mental status changes decreased level of responsiveness with evidence of left lower lobe infiltrate concerning for possible pneumonia, patient however did not have any fever or elevated white count, underlying pneumonia less likely but not excluded, patient also have a positive UA however this patient do have a history of end-stage renal disease on dialysis with no clinical significance 2-penicillin allergy of limit the number of antibiotics safe to use 3-patient did have elevated procalcitonin level of 1.44 4patient urine culture growing Enterococcus however the patient hardly makes any urine and urine was not significantly positive possible colonization , no need for daptomycin , will be discontinued 5-Patient is afebrile respiratory status is stable blood cultures are so far negative, patient to continue with the cefepime the patient is evaluated by ID [facility] Time with Patient: Less than 30
--- NOTE | 2023-01-17 12:25 | P.PN ---
Subjective Progress Note Date: 01/17/23 Principal diagnosis: Acute metabolic encephalopathy, VRE urinary tract infection possible left lower lobe pneumonia, refractory seizures. I am seeing this patient in new consultation today 01/11/2023 in the emergency room possible left lower lobe pneumonia. Patient is a 53-year-old female with past medical history significant for multiple comorbidities including end-stage renal disease, seizure disorder, CVA, diabetes mellitus, GERD, hyperlipidemia, hypertension, hypothyroidism. Patient was sent in from [facility] on the [place] yesterday afternoon for concerns about altered mental status. There was also concern for nausea and retching. She has had multiple prior emergency room visits and hospital admissions in the past for similar symptoms. She actually had an ER visit on January 09 for altered mental status. She was discharged back to [facility], and returned yesterday afternoon. She also has history of ventilator dependence for status epilepticus. No reports of seizure activity on this admission. Patient apparently continues to have seizures about once per week to once per month. Patient is currently sitting up in bed, alert but nonverbal, in no acute distress. She does not follow commands. She is on 2 L/m nasal cannula and oxygenating at 100%. Chest x-ray on arrival shows small left pleural effusion and possible left lower lobe infiltrate. Patient is currently on Levaquin for empiric antibiotics. She is afebrile. CBC on arrival was unremarkable. BMP shows sodium 138, potassium 4.4, chloride 99, serum bicarb 24, BUN 63, creatinine 9.6, glucose 186. Patient reportedly does receive hemodialysis on Monday, Monday, Monday schedule. Troponins negative 1. Ammonia level was low. Urinalysis was not particularly concerning for UTI. Brain CT without contrast, one day prior, shows age-related atrophic and chronic small vessel ischemia without any acute intracranial process. Patient will be admitted to the cardiac stepdown unit once bed available. On today's evaluation of 01/12/2023, the patient is stable. No worsening shortness of breath. In fact I do not see any signs of any respiratory distress this patient. No aspiration. No cough or sputum production. No fever or chills. No seizure activity overnight. The patient is following simple commands only. Neurology is on the case regarding her underlying mental status. The patient remains on Levaquin. Patient is also on cefepime. During culture was positive for enterococcus group D. The blood culture showing no growth. On 01/10/2023, the neurologic status of the patient remains unchanged. She doesn't do a lot of talking and she doesn't communicate. She doesn't minimum And Neurology Is on the Case. Suspect a Component of Anoxic Encephalopathy. The Patient Is Also Being Treated for Seizures and She Remains on a Combination of Keppra and Vimpat. No Respiratory Distress. No Significant Cough or Sputum Production. Breathing Is Nonlabored and the Patient Is Undergoing Hemodialysis Today. She Is on IV Cefepime for Now. She Remains on Oxygen at 2 L/M Nasal Ca nnula with a Pulse Ox of 99%. The Blood Work from Today Shows a Sodium Level of 136, BUN Is 43 with a Creatinine of 8.5 and a Potassium Is at 3.9. Bicarb Level Is at 26. She Was Found to Have Enterococcus Group D in Her Urine. On 01/14/2023, patient has no respiratory difficulties. The patient remains on antibiotics and she is currently on IV cefepime. No change in her neurologic functions for now. She is hemodynamically stable. She is on room air oxygen.On today's evaluation of 01/15/2023, the patient is in the intensive care unit. Noted the patient had worsening in her condition. Her baseline condition was being nonverbal or saying a few words without holding a conversation. She did subsequently started having twitching in her right side and this was noted by the nursing staff. Neurology was involved in the patient's was given higher doses of antiepileptic medication patient was placed on Depakote 1 g twice a day, Vimpat 150 mg twice a day, Keprra 500 mg IV every 12 hours and zonisamide. Ranges also made to transfer this patient to another hospital for continuous EEG monitoring. Meanwhile, the patient got transferred to the intensive care unit. She is extremely drowsy, nonverbal, not communicating at this point in time, which is why close to baseline. She underwent hemodialysis yesterday without any major issues. She has a positive cough and a gag. She was kept on 2 L of oxygen by nasal cannula. The blood gas was also done yesterday that showed a pH of 7.44 with a pCO2 43 pO2 77. The white cycles of 5.4 with a hemoglobin 9.8 and a platelet count of 106. BUN is 26 with a creatinine of 6.4 and a sodium level is at 133. A repeat CAT scan of the brain was done yesterday that showed age-related atrophy with chronic small vessel ischemic changes. Reevaluated today on 01/16/2023, remains in the ICU, remains encephalopathic, but pulmonary-rahman she is not in any distress. Patient does not follow any instructions, she is to have a nasogastric tube for enteral feeding and for medications to be given orally. Cannot take anything orally as she is not cooperative. Patient is being followed by many consultants, and my understanding we are waiting for a bed to be available at [facility]. Labs today were reviewed she had a relatively normal CBC except for hemoglobin of 10.8 relatively normal electrolytes, her creatinine is up to 8.01, it was 6.41 yesterday. And that being addressed by nephrology on the case, patient has end-stage renal disease, on hemodialysis Mondays 1 days and Fridays and she has hypertension and end-stage renal disease Reevaluated today on 01/17/2023, overall the patient is about the same, she is on nasal cannula at 4 L/m, does not seem to be in any distress, she does have a gag reflex, but remains encephalopathic. Able to protect her airways, does not need intubation and/or mechanical ventilation, nonetheless the patient was made DO NOT RESUSCITATE CODE STATUS yesterday. Her chest x-ray today showed no evidence of pneumonia, patient remains on antibiotics as per infectious disease. She is ALLERGIC to penicillin. WBC count is normal electrolytes are normal however her BUN is 36 creatinine 4.93, patient remains on hemodialysis. Her urine cultures are positive for Enterococcus faecium VRE Objective - Vital Signs Vital signs: Vital Signs Temp 98.4 F 01/17/23 12:00 Pulse 89 01/17/23 12:00 Resp 16 01/17/23 12:00 BP 131/59 01/17/23 12:00 Pulse Ox 99 01/17/23 12:00 FiO2 Intake & Output 01/16/23 01/17/23 01/17/23 18:59 06:59 18:59 Intake Total 615 70 Output Total 2304 0 0 Balance -1689 70 0 Weight 69.2 kg 67.7 kg Intake: IV 65 70 0.9 @ KVO 20 Cefepime 1 gm In Sodium 50 Chloride 0.9% 50 ml @ 12. 5 mls/hr IVPB DAILY [facility] Rx#:[id number] Valproate Sodium 1,000 mg 15 50 In Sodium Chloride 0.9% 50 ml @ 50 mls/hr IVPB BID [facility] Rx#:[id number] Intake, IV Titration 50 Amount Valproate Sodium 1,000 mg 50 In Sodium Chloride 0.9% 50 ml @ 50 mls/hr IVPB BID [facility] Rx#:[id number] Hemodialysis 500 Output: Urine 0 0 0 Hemodialysis 2304 Other: # Voids 1 # Bowel Movements 1 1 - Exam GENERAL: Revealed a 53-year-old female, encephalopathic, not in any distress. On 4 L nasal cannula HEENT: PERRLA, EOMI, anicteric, moist mucous membranes. CARDIOVASCULAR: Normal S1 and S2, no S3 gallop. PULMONARY: Symmetrical chest expansion clear throughout no crackles or rhonchi or wheezes ABDOMEN: Soft, nontender, nondistended, normoactive bowel sounds. No palpable organomegaly. MUSCULOSKELETAL: No deformity and no limitation in range of motion. EXTREMITIES: No clubbing edema or cyanosis NEUROLOGICAL: Patient is encephalopathic, does not follow any instructions, patient does have a gag reflex. SKIN: No rashes. no petechiae. - Labs CBC & Chem 7: 01/17/23 05:57 01/17/23 05:57 Labs: Abnormal Lab Results - Last 24 Hours (Table) 01/16/23 01/17/23 01/17/23 Range/Units 20:41 00:22 05:57 RBC 3.40 L (3.80-5.40) m/uL Hgb 10.7 L (11.4-16.0) gm/dL Hct 31.1 L (34.0-46.0) % Plt Count 135 L (150-450) k/uL Sodium (137-145) mmol/L Chloride (98-107) mmol/L BUN (7-17) mg/dL Creatinine (0.52-1.04) mg/dL Glucose (74-99) mg/dL POC Glucose (mg/dL) 131 H 163 H (70-110) mg/dL 01/17/23 01/17/23 01/17/23 Range/Units 05:57 06:30 11:30 RBC (3.80-5.40) m/uL Hgb (11.4-16.0) gm/dL Hct (34.0-46.0) % Plt Count (150-450) k/uL Sodium 132 L (137-145) mmol/L Chloride 94 L (98-107) mmol/L BUN 36 H (7-17) mg/dL Creatinine 4.93 H (0.52-1.04) mg/dL Glucose 138 H (74-99) mg/dL POC Glucose (mg/dL) 142 H 152 H (70-110) mg/dL Microbiology - Last 24 Hours (Table) 01/10/23 18:15 Blood Culture - Final Blood 01/10/23 15:50 Urine Culture - Final Urine,Voided Enterococcus faecium VRE Assessment and Plan Assessment: Impression: Acute hypoxic respiratory failure, possible healthcare acquired or associated pn eumonia, resolved based on chest x-ray today. remains on cefepime. Acute metabolic encephalopathy and possible anoxic encephalopathy and recurrent seizures. Remains on Keppra and Vimpat. Being followed by neurology. Seizure disorder Type 2 diabetes possible diabetic nephropathy End-stage renal disease on hemodialysis Essential hypertension with nephrosclerosis History of CVA Hypothyroidism GERD without esophagitis UTI secondary to VRE. On daptomycin. Sepsis secondary to UTI recommendation: Continue present supportive care measures Continue cefepime and daptomycin, as per infectious disease on the case. Continue seizure meds as ordered by neurology on the case including Keppra and Vimpat Continue updrafts Continue GI and DVT prophylaxis Continue blood pressure medications including amlodipine and clonidine patches. Continue hemodialysis as per nephrology on the case Use nasogastric tube for enteral feeding and for oral meds Still awaiting for potential bed at [facility] and possible transfer We will continue to follow Time with Patient: Less than 30
[2023-01-17 16:07] VITALS: RESP 20
[2023-01-17 16:17] VITALS: PULSE 100
[2023-01-17 16:27] VITALS: BP 119/79; TEMP 97.9
--- NOTE | 2023-01-17 22:19 | P.PN ---
Subjective This is a pleasant 52 years old male who presents with altered mental status secondary to metabolic encephalopathy possible breakthrough seizure, she has history of refractory seizure, she's been evaluated by neurologist and currently she is continued on her home dose of 4 seizure medication including Depakote, Vimpat, Keppra, zonisamide, neurologist recommended the patient follow up outpatient. Patient also suspected to have community acquired left lower lobe pneumonia and currently covered with cefepime. Also she is on Levaquin added by internal medical service on a prior days, when going through this continue Levaquin as it lowers seizure thresholds and patient is with no fever or leukocytosis. Urine cultures, group D enterococcus Patient herself is drowsy this morning, she knows she is in [place], she answers questions without difficulty and she follows simple commands, she's been evaluated by psychiatrist and found to have Asked to make decision. [facility] team for hemodialysis Patient is still complaining of from coughing and clinical tachypnea while at rest She is saturating well to 2 L/m of oxygen. Patient is in the process of obtaining public guardian, Follow-up with court hearing for possible public guardian. 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 Levaquin was discontinued yesterday as it lowers seizure threshold This morning patient is a staring in the air and does not follow command and looks her mentation situation is worth, also some twitching on the right side noticed by the staff. I discussed case with the neurologist, he increased seizure medication and currently she is on Depakote 1000 mg twice a day, Vimpat 150 twice a day, Keppra 500 mg IV twice a day as well as Zanasomide. Patient will need prolonged EEG per neurologist recommended to transfer the patient to tertiary care center, agreeable for the transfer. I called [facility] and they put her on the waiting list, I called [facility] which had all their systems and they said they can accept her in main branch in [place] but this will happen tomorrow or the day after, I called [facility] and they don't have a bed available at the several days. We will follow up with the patient closely for the transfer. s 01/15/2023 Patient remains in the ICU, she is calm no active seizures noted. 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 This morning she is slightly and mildly better, she opens eyes to verbal stimuli is and look at me but does not answer question or follow commands compared to continue with staring as of yesterday. Patient's urine culture came back positive for VRE. Initially patient thought she has pneumonia but I think patient currently complaining of from metabolic encephalopathy secondary to VRE UTI. Patient is currently on cefepime but VRE is resistant to penicillin and vancomycin therefore going to start daptomycin today in follow-up with infectious disease team on the case. Persistent seizure or recurrent seizure is suspected however I think this is less likely as patient currently on 4 seizure medication and received an fifth medication of Ativan yesterday, Ativan also may be contributing to her altered mental status. However seizure cannot be entirely excluded currently and I think she still needs to be transferred to [facility] for prolonged EEG. Especially infection could lower seizure thresholds. 01/17/2023 Patient remains in the ICU pending to be transferred to [facility] She was sitting up in bed, nonverbal and does not response to verbal or physical stimuli, no significant improvement of change in her clinical condition. No more tonic clonic seizure activity or twitching is noted with the patient over the last 2-3 days. She protects her airways. Vitals are stable. Labs reviewed as well She remains on 4 seizure medication, she remains on cefepime and daptomycin with infectious disease team on the case Blood pressure controlled with Norvasc and metoprolol Patient is hemodynamically stable to be transferred in guarded prognosis to [facility] once bed is available, possibly (Please refer to the discharge summary from yesterday for more details) Objective - Vital Signs Vital signs: Vital Signs Temp 98.4 F 01/17/23 12:00 Pulse 89 01/17/23 12:00 Resp 16 01/17/23 12:00 BP 131/59 01/17/23 12:00 Pulse Ox 99 01/17/23 12:00 FiO2 Intake & Output 01/16/23 01/17/23 01/17/23 18:59 06:59 18:59 Intake Total 615 70 Output Total 2304 0 0 Balance -1689 70 0 Weight 69.2 kg 67.7 kg Intake: IV 65 70 0.9 @ KVO 20 Cefepime 1 gm In Sodium 50 Chloride 0.9% 50 ml @ 12. 5 mls/hr IVPB DAILY NEELIMA Rx#:[id number] Valproate Sodium 1,000 mg 15 50 In Sodium Chloride 0.9% 50 ml @ 50 mls/hr IVPB BID NEELIMA Rx#:[id number] Intake, IV Titration 50 Amount Valproate Sodium 1,000 mg 50 In Sodium Chloride 0.9% 50 ml @ 50 mls/hr IVPB BID NEELIMA Rx#:[id number] Hemodialysis 500 Output: Urine 0 0 0 Hemodialysis 2304 Other: # Voids 1 # Bowel Movements 1 1 - Exam -GENERAL: The patient is awake but drowsy, not in any acute distress. Well developed, well nourished. HEENT: Pupils are round and equally reacting to light. EOMI. No scleral icterus. No conjunctival pallor. Normocephalic, atraumatic. No pharyngeal erythema. No thyromegaly. CARDIOVASCULAR: S1 and S2 present. No murmurs, rubs, or gallops. PULMONARY: Chest is clear to auscultation, no wheezing or crackles. ABDOMEN: Soft, nontender, nondistended, normoactive bowel sounds. No palpable organomegaly. MUSCULOSKELETAL: No joint swelling or deformity. EXTREMITIES: No cyanosis, clubbing, or pedal edema. NEUROLOGICAL: Gross neurological examination did not reveal any focal deficits. SKIN: No rashes. no petechiae. - Labs CBC & Chem 7: 01/17/23 05:57 01/17/23 05:57 Labs: Abnormal Lab Results - Last 24 Hours (Table) 01/16/23 01/17/23 01/17/23 Range/Units 20:41 00:22 05:57 RBC 3.40 L (3.80-5.40) m/uL Hgb 10.7 L (11.4-16.0) gm/dL Hct 31.1 L (34.0-46.0) % Plt Count 135 L (150-450) k/uL Sodium (137-145) mmol/L Chloride (98-107) mmol/L BUN (7-17) mg/dL Creatinine (0.52-1.04) mg/dL Glucose (74-99) mg/dL POC Glucose (mg/dL) 131 H 163 H (70-110) mg/dL 01/17/23 01/17/23 01/17/23 Range/Units 05:57 06:30 11:30 RBC (3.80-5.40) m/uL Hgb (11.4-16.0) gm/dL Hct (34.0-46.0) % Plt Count (150-450) k/uL Sodium 132 L (137-145) mmol/L Chloride 94 L (98-107) mmol/L BUN 36 H (7-17) mg/dL Creatinine 4.93 H (0.52-1.04) mg/dL Glucose 138 H (74-99) mg/dL POC Glucose (mg/dL) 142 H 152 H (70-110) mg/dL Microbiology - Last 24 Hours (Table) 01/10/23 18:15 Blood Culture - Final Blood Assessment and Plan Assessment: VRE UTI Altered mental status secondary to metabolic encephalopathy secondary to infection and metabolic abnormalities, possible breakthrough seizure Left lower lobe pneumonia Refractory epilepsy, possible breakthrough seizure history of CVA and left sonia-variances End-stage renal disease on hemodialysis possible UTI with a group B enterococci Plan: Contacted several tertiary care centers like [facility] and [facility] pending availability for transfer Continue with cefepime, however we added daptomycin Pending transfer to [facility] for prolonged EEG and further higher level of care. Infectious disease and pulmonary team on the case Continue with same seizure medication, Vimpat, Keppra, Depakote and zonisamide , neurologist on the case Labs and medication were reviewed.. Continue same treatment. Continue with symptomatic treatment. Resume home medication. Monitor labs and vitals. DVT and GI prophylaxis. Further recommendations as per clinical course of the patient DVT prophylaxis: Subcutaneous heparin GI Prophylaxis: Pepcid PT/OT: Recommended ECF Prognosis is guarded Patient will be transferred to [facility] once bed is available. Case was discussed with the neurologist services in detail today and we both agreed on the treatment plan
[2023-01-18] MEDS ORDERED: NON FORMULARY DRUG (Dulaglutide [Trulicity] 3 MG/0.5 ML Each) SQ SCH (09:00)
--- NOTE | 2023-01-18 12:11 | CDI ---
Documentation Clarification Form Date: 01/18/2023 11:07:34 AM From: Katerine Dangelo RN, CCDS Admit Date: 01/10/2023 06:09:00 PM Patient Name: Gerri Duke Visit Number: [id number] Discharge Date: 01/17/2023 04:54:00 PM ATTENTION: The Clinical Documentation Specialists (CDI) and [facility] Coding Staff appreciate your assistance in clarifying documentation. Please respond to the clarification below the line at the bottom and electronically sign. The CDI & [facility] Coding staff will review the response and follow-up if needed. Please note: Queries are made part of the Legal Health Record. If you have any questions, please contact the author of this message via ITS. Dr. Barbour E Tigist Sepsis is documented in the H/P and subsequent progress notes until 01/12/23 and not in the notes on starting on 01/13 or the discharge summary, Clarification is requested. 01/12 Attn: Possible left lower lobe pneumonia with sepsis. History/Risk Factors: Hypertension, Diabetes Mellitus, Hyperlipidemia Seizure disorder, ESRD on HD Clinical Indicators: 53-year-old sent from [facility] with concerns for altered mental status. 01/10 VS: (18:23) 99/72 93 16 97.8 100 2/L NC 01/10 Labs: WBC 9.1 BUN 63, Cr 9.60 UA: Large Leukocyte Esterase 01/10 Urine culture: Enterococcus faecium VRE 01/10 Blood culture Final: No growth after 5 days 01/11 Procalcitonin 1.44 01/10 CXR: Left lower lobe infiltrate with small effusion Treatment: ICU/Telemetry Monitoring Cefepime HCL 1 GM IVPB 01/13-01/17 Keppra 500 MG PO MWF 01/11-01/16 Vimpat 150 MG PO TID 01/11-01/16 Please clarify if Sepsis is: [ ] Sepsis confirmed, remains under treatment [ ] Sepsis confirmed, resolved [ ] Sepsis ruled out [ ] Other condition, please specify [ ] Unable to determine (Template Last Revised: September 2020) sepsis with tachycardia and tachypnea MTDD
== END 2023-01-17 16:54 | disposition short-term general hospital (02) | DRG 871 ==
LOC: EC 11:50 → 3SCARD 18:09 → 2SICU 01-14 21:28
PROVIDERS: ADMIT Hospitalist; ATTEND Hospitalist
PROC: 5A1D70Z Performance of Urinary Filtration, Intermittent, Less than 6 Hours Per Day (ICD-10-PCS; principal; 2023-01-11)
DX: A41.9 Sepsis, unspecified organism (principal); G93.41 Metabolic encephalopathy; J18.9 Pneumonia, unspecified organism; J96.01 Acute respiratory failure with hypoxia; N18.6 End stage renal disease; G40.419 Other generalized epilepsy and epileptic syndromes, intractable, without status epilepticus; F05 Delirium due to known physiological condition; I69.354 Hemiplegia and hemiparesis following cerebral infarction affecting left non-dominant side; J90 Pleural effusion, not elsewhere classified; N39.0 Urinary tract infection, site not specified; R47.01 Aphasia; Z16.11 Resistance to penicillins; Z16.21 Resistance to vancomycin; I12.0 Hypertensive chronic kidney disease with stage 5 chronic kidney disease or end stage renal disease; Z66 Do not resuscitate; B95.2 Enterococcus as the cause of diseases classified elsewhere; D63.1 Anemia in chronic kidney disease; E03.9 Hypothyroidism, unspecified; E11.22 Type 2 diabetes mellitus with diabetic chronic kidney disease; E78.5 Hyperlipidemia, unspecified; E86.0 Dehydration; I65.22 Occlusion and stenosis of left carotid artery; K21.9 Gastro-esophageal reflux disease without esophagitis; M89.8X9 Other specified disorders of bone, unspecified site; Z88.0 Allergy status to penicillin; Z79.4 Long term (current) use of insulin; Z79.899 Other long term (current) drug therapy; Z99.2 Dependence on renal dialysis; Z87.891 Personal history of nicotine dependence
CPT/HCPCS: 36415; 36600; 70450; 71045; 71046; 74018; 80048; 80053; 80076; 80164; 80165; 80177; 80235; 80306; 81001; 82140; 82805; 83036; 83735; 84100; 84145; 84484; 85025; 85610; 85730; 87040; 87077; 87086; 87186; 87449; 87635; 90935; 93005; 94640; 94760; 95713; 95816; 96361; 96365; 99291